=== PATIENT | female | born 1955 | race Caucasian/White ===

== ENCOUNTER 2022-04-26 09:47 | Observation (INO) | payer OTHER ==
--- OUTSIDE RECORDS SUMMARY | 2022-04-26 09:49 | XMS REPORT | Continuity of Care Document ---
:1955 Author Organization [facility] t Address [address] [place] [address] [address] [place] [address] Care Team Providers Name Role Phone PCP, PATIENT DOES NOT HAVE A Primary Care Physician LUX Navarro Attending Clinician Unavailable MARILYN LOPEZ Attending Clinician Unavailable Marilyn Murillo Attending Clinician Payers Payer Name Policy Type Policy Number Effective Date Expiration Date steven MEDICARE PART A [id number] 2019 \T\ B 00:00:00 Problems Condition Condition Condition Status Onset Resolution Last Treating Co mments Source Name Details Category Date Date Treatment Clinician Date No known No known Disease Unive rs active active ity of problems problems [facility] Allergies, Adverse Reactions, Alerts Allergy Allergy Status Severity Reaction(s) Onset Inactive Treating Comm ents Source Name Type Date Date Clinician NO KNOWN Drug Active Univers ALLERGIE Class ity of [facility] Social History Social Habit Start Date Stop Date Quantity Comments Source Exposure to 2021-09-20 2021-09-30 Not sure [facility] SARS-CoV-2 (event) 00:00:00 18:06:00 Medica l Branch Sex [birth year] [facility] 00:00:00 00:00:00 Medical [place] Smoking Status Start Date Stop Date Source Never smoker [facility] Medications Ordered Filled Start Stop Current Ordering Indication Dosage Frequency Signature Comments Components Source Medication Medication Date Date Medication? Clinician (SIG) Name Name HYDROcodone 2016-03 Yes 1{tbl} Take 1 Un stephen -acetaminop 1-06 tablet by ity of hen (NORCO) 00:00: mouth [place] 5-325 mg 00 every 6 Medical tablet (six) Branch hours as needed for Pain (scale 7-10). HYDROcodone 2017- Yes 1{tbl} Take 1 Un stephen -acetaminop 1-06 tablet by ity of hen (NORCO) 00:00: mouth [place] 5-325 mg 00 every 6 Medical tablet (six) Branch hours as needed for Pain (scale 7-10). gabapentin 2016-0 Yes 600mg Take 600 Un stephen (NEURONTIN) 7-30 mg by ity of 600 mg 14:24: mouth 3 [place] tablet 07 (three) Medical times Branch daily. traZODONE 2016-0 Yes 100mg Take 100 Uni vers (DESYREL) 7-30 mg by ity of 100 mg 14:24: mouth at [place] tablet 07 bedtime. Medical Branch metoprolol 2015-0 Yes 25mg Take 25 mg U nivers succinate 7-30 by mouth ity of XL (TOPROL 14:24: daily. [place] XL) 25 mg 07 Medical 24 hr Branch tablet doxycycline 2016-0 Yes 100mg Take 100 U nivers (MONODOX) 7-30 mg by ity of 100 mg 14:24: mouth 2 [place] capsule 07 (two) Medical times Branch daily. paroxetine 2016-0 Yes 40mg Take 40 mg U nivers (PAXIL) 40 7-30 by mouth ity o f mg tablet 14:24: daily. Medical Branch insulin 2016-0 Yes inject Univers 70/30 7-30 under the ity of (NOVOLIN 14:24: skin 2 [place] 70/30) 100 07 (two) Medical unit/mL times Branch (70-30) daily injection before breakfast and dinner. gabapentin 2016-0 Yes 600mg Take 600 Un stephen (NEURONTIN) 7-30 mg by ity of 600 mg 14:24: mouth 3 [place] tablet 07 (three) Medical times Branch daily. traZODONE 2016-0 Yes 100mg Take 100 Uni vers (DESYREL) 7-30 mg by ity of 100 mg 14:24: mouth at [place] tablet 07 bedtime. Medical Branch metoprolol 2016-0 Yes 25mg Take 25 mg U nivers succinate 7-30 by mouth ity of XL (TOPROL 14:24: daily. [place] XL) 25 mg 07 Medical 24 hr Branch tablet doxycycline 2016-0 Yes 100mg Take 100 U nivers (MONODOX) 7-30 mg by ity of 100 mg 14:24: mouth 2 [place] capsule 07 (two) Medical times Branch daily. paroxetine Yes 40mg Take 40 mg U nivers (PAXIL) 40 7-30 by mouth ity o f mg tablet 14:24: daily. [address] Branch insulin Yes inject Univers 70/30 7-30 under the ity of (NOVOLIN 14:24: skin 2 [place] 70/30) 100 07 (two) Medical unit/mL times Branch (70-30) daily injection before breakfast and dinner. losartan-hy Yes 1{tbl} Take 1 Un stephen drochloroth 7-30 tablet by ity of iazide 14:24: mouth [place] (HYZAAR) 06 daily. Medical 100-12.5 mg Branch per tablet clopidogrel Yes 75mg Take 75 mg Univers (PLAVIX) 75 7-30 by mouth ity of mg tablet 14:24: daily. [address] Branch losartan-hy Yes 1{tbl} Take 1 Un stephen drochloroth 7-30 tablet by ity of iazide 14:24: mouth [place] (HYZAAR) 06 daily. Medical 100-12.5 mg Branch per tablet clopidogrel Yes 75mg Take 75 mg Univers (PLAVIX) 75 7-30 by mouth ity of mg tablet 14:24: daily. [address] Branch ranitidine Yes 150mg Take 1 Univ ers (ZANTAC) 7-30 tablet by ity of 150 mg 00:00: mouth 2 [place] tablet 00 (two) Medical times Branch daily. ranitidine Yes 150mg Take 1 Univ ers (ZANTAC) 7-30 tablet by ity of 150 mg 00:00: mouth 2 [place] tablet 00 (two) Medical times Branch daily. Vital Signs Vital Name Observation Time Observation Value Comments Source Systolic blood 2021-09-30 23:06:00 150 mm[Hg] Univer sity of pressure [facility] Diastolic blood 2021-09-30 23:06:00 59 mm[Hg] [facility] Heart rate 2021-09-30 23:06:00 68 /min Universi ty of [facility] Respiratory rate 2021-09-30 23:06:00 18 /min [facility] Body height 2021-09-30 23:06:[facility] Body weight 2021-09-30 23:06:00 [facility] BMI 2021-09-30 23:06:00 37.79 kg/m2 [facility] Oxygen saturation in 2021-09-30 23:06:00 96 /min [facility] Arterial blood by [facility] Pulse oximetry [place] Procedures Procedure Date / Time Performed Performing Clinician [place] e XR FOOT 3+ VW RIGHT 2021-09-30 23:27:38 Marilyn Lopez [facility] Encounters Start End Encounter Admission Attending Care Care Encounter Source Date/Time Date/Time Type Type Clinicians Facility Department ID 2021-10-07 2021-10-07 [facility] [id number] Univers 11:15:00 11:15:00 LUX navarro [facility] 2021-10-07 2021-10-07 [facility] [id number] Univers 10:30:00 [facility]30[facility] 2021-09-30 [facility] [id number] Univers 18:16:43 23:59:00 MARILYN navarro o f [facility] 2021-09-30 2021-09-30 [facility] [id number] Univers 18:16:43 23:59:00 Encounter [facility] [id number] ity of [place] [id number] Carlos as MELCHOR?BLEA [id number] Id saefl ALVERTO [address] [place] MEDICAL OFFICE [facility]ILDING 2021-09-30 2021-09-30 Urgent [facility] [id number] Univers 18:00:00 18:34:09 Care [facility] [id number] i ty of [place] [id number] Carlos as MELCHOR?BLEA [id number] Id marely [address] MEDICAL OFFICE BUILDING 2021-09-30 2021-09-30 Outpatient R JOHN [facility] [id number] Univers 18:00:00 18:00:00 MARILYN kumari [facility] 2021-09-30 2021-09-30 Outpatient R [facility] [id number] Univers 17:00:00 17:00:00 [facility] 2020-03-05 2020-03-05 Outpatient R [facility] [id number] Univers 14:20:00 14:20:00 [facility] Results This patient has no known results.
[2022-04-26 10:18] LABS: Absolute Lymphocytes (CBC) 2.4 K/uL (0.7-4.9); Hematocrit 40.4 % (36.0-45.0); Lymphocytes % 22.8 % (15.3-44.8); MCV 92.3 fL (80-100); MPV 8.6 fL (7.6-11.3); RBC Red Blood Cell Count 4.37 M/uL (3.86-4.86)
[2022-04-26] MEDS ORDERED: INSULIN -REGULAR HUMAN 50 UNIT/0.5 ML ML ONE ×2 (10:29→23:49)
--- NOTE | 2022-04-26 10:30 | RAD REPORT ---
EXAM DESCRIPTION: CT - Ct Stroke Brain Wo Cont - 04/26/2022 10:06 am CLINICAL HISTORY: STROKE ALERT COMPARISON: No comparisons TECHNIQUE: Axial 5 millimeter thick images of the head were obtained without IV contrast. All CT scans are performed using dose optimization technique as appropriate and may include automated exposure control or mA/KV adjustment according to patient size. FINDINGS: No intracranial hemorrhage is present. No acute cortical based infarction identified. Ther e is no cortical edema or sulcal effacement. Mild atrophy changes are present with ventricles in prop ortion to volume loss. No extra-axial fluid collections. Childers matter-white matter differentiation is preserved.A 10 millimeter sized area of decreased attenuation is present in the deep periventricular left frontal lobe white matter extending in the left basal ganglia along the anterior limb internal capsule and medial margin of the lentiform nucleus. This is relatively low in density and is probably an old infarct. No globe or orbital content abnormality. Paranasal sinuses are clear. Right-side mastoid air cells are normal. There is complete opacification of the left side mastoid air cells. The left middle ear does appear to be normally aerated. No erosi ve or destructive changes in the mastoid air cells identifiable. Benign calcifications are present along the falx. Arterial calcifications are present. Findings telephoned to Dr Argueta 10:08 a.m.. IMPRESSION: No intracranial hemorrhage is present. Small focus of decreased attenuation in the left basal ganglia and deep periventricular left frontal lobe white matter is favored to be an old ischemic insult. Continued concerns for acute CVA can be addressed with MR imaging.
[2022-04-26] MEDS ORDERED: TENECTEPLASE 50 MG/10 ML VIAL IV ONE (10:31)
[2022-04-26 10:51] LABS: Protime INR 1.05
--- NOTE | 2022-04-26 10:57 | RAD REPORT ---
EXAM DESCRIPTION: RAD - Chest Single View - 04/26/2022 10:26 am CLINICAL HISTORY: Slurred speech, Stroke protocol chest film COMPARISON: Single-view chest 12/27/2012 TECHNIQUE: AP portable chest image was obtained 04/26/2022 10:26 am . FINDINGS: Mildly prominent interstitial pattern is seen believed be baseline. No peripheral mass or consolidation. Failure and volume overload are not suspected. Heart and vasculature are normal. No measurable pleural effusion and no pneumothorax. No acute bony abnormality seen. No acute aortic findings suspected. IMPRESSION: No peripheral mass, consolidation or failure findings. Mildly prominent interstitial pattern is believed be baseline for the patient.
[2022-04-26 11:09] LABS: Albumin 3.2 g/dL (3.4-5.0); Bilirubin Direct 0.1 mg/dL (0-0.2); Bilirubin Total 0.4 mg/dL (0.2-1.0); Potassium 4.3 mmol/L (3.5-5.1); Protein, Total 7.2 g/dL (6.4-8.2); Troponin High Sensitivity 18.8 pg/mL (<58.9)
--- NOTE | 2022-04-26 11:43 | ER ---
Nurse's Notes [facility] Name: Kala Pedro Age: 67 yrs Sex: Female : 1955 Arrival Date: 04/26/2022 Time: 09:55 Bed 7 Private MD: Diagnosis: Slurred speech;Altered mental status, unspecified;Diabetes mellitus due to underlying condition with hyperglycemia;Type 2 diabetes mellitus with hyperglycemia Presentation: 04/26 09:56 Chief complaint: EMS states: Pt was at surgical center in waiting area while spouse was ph having surgery, began having slurred speech, BGL was 481, pt hx of IDDM, states that she did not take her insulin this morning. Pt also reports headache that has improved, moves all extremities w/ no weakness noted, pt oriented x 4, slow to respond to questioning, VSS. Coronavirus screen: Vaccine status: Patient reports receiving the 2nd dose of the covid vaccine. Ebola Screen: No symptoms or risks identified at this time. Initial Sepsis Screen: Does the patient meet any 2 criteria? No. Patient's initial sepsis screen is negative. Does the patient have a suspected source of infection? No. Patient's initial sepsis screen is negative. Risk Assessment: Do you want to hurt yourself or someone else? Patient reports no desire to harm self or others. Onset of symptoms was April 26, 2022. 09:56 Method Of Arrival: EMS: [facility] 09:56 Acuity: LEXUS 2 ph 12:12 No acute neurological deficit is noted. The patients blood glucose was checked prior to ph arriving to the hospital and was found to be hyperglycemic. Triage Assessment: 12:20 The onset of the patients symptoms was April 26, 2022 at 08:00. Stroke Activation: Physician: Stroke Attending; Name: ; Notified At: ; Arrived At: Physician: Chief Stroke Resident; Name: ; Notified At: ; Arrived At: Physician: Stroke Resident; Name: ; Notified At: ; Arrived At: Physician: ED Attending; Name: Kendall; Notified At: 10:00; Arrived At: 10:00 Physician: ED Resident; Name: ; Notified At: ; Arrived At: Historical: - Allergies: 10:02 zolpidem tartrate; ph 10:02 Niacin; ph - PMHx: 10:02 Diabetes mellitus; Myocardial infarction; ph - Immunization history:: Adult Immunizations unknown. - Social history:: Smoking status: unknown. Screenin:01 [facility] ED Fall Risk Assessment (Adult) History of falling in the last 3 months, ph including since admission No falls in past 3 months (0 pts) Confusion or Disorientation Yes (5 pts) Intoxicated or Sedated No (0 pts) Impaired Gait No (0 pts) Mobility Assist Device Used No (0 pt) Altered Elimination No (0 pt) Score/Fall Risk Level 3 or more points = High Risk Oriented to surroundings, Maintained a safe environment, Hourly rounding (assess needs \T\ fall precautionary measures) done. Abuse screen: Denies threats or abuse. Denies injuries from another. Nutritional screening: No deficits noted. Tuberculosis screening: No symptoms or risk factors identified. Assessment: 10:00 Reassessment: code stroke called overhead, Dr Argueta at bedside. ph 10:00 General: Appears in no apparent distress. well groomed, Behavior is cooperative, ph drowsy, Denies fever, feeling ill. Pain: Denies pain. Neuro: Level of Consciousness is awake, obeys commands, lethargic, Oriented to person, place, time, situation, [employer] are equal bilaterally Moves all extremities. Speech is slurred, Facial symmetry appears normal, Facial symmetry: tongue is midline, Pupils are PERRLA, Intact. Cardiovascular: Capillary refill < 3 seconds in bilateral fingers Patient's skin is warm and dry. Respiratory: Reports cough that is Airway is patent Respiratory effort is even, unlabored, Respiratory pattern is regular, symmetrical, Denies shortness of breath. GI: No signs and/or symptoms were reported involving the gastrointestinal system. Derm: Skin is healthy with good turgor, Skin is pink, warm \T\ dry. Musculoskeletal: Circulation, motion, and sensation intact. Range of motion: intact in all extremities. 10:02 Reassessment: Pt taken to CT via stretcher, accompanied by JANNY Kim. ph 10:02 VAN Scoring: Arm Drift: Patients demonstrates NO arm weakness. Patient is VAN Negative. ph 10:30 TNKase (Tenecteplase) Screening: Indications: Definite evidence of stroke, ischemic, ph embolic, or hypertensive: Yes. Treatment will start within 4.5 hours onset of symptoms: Yes. No evidence of intracranial hemorrhage or CT of head and no evidence of peripheral hemorrhage or recent CVA: Yes. Consent for thrombolytic therapy: No. 10:44 Reassessment: Patient appears in no apparent distress at this time. Patient and/or ph family updated on plan of care and expected duration. Pain level reassessed. Pt drowsy, awakens to verbal stimuli, speech remains slurred at this time, pt states that she has never had these symptoms before when her BGL has been high, pt states that she does take Plavix d/t hx of [place], ERP notified of blood thinner use. 11:08 Reassessment: Pt taken for MRI via stretcher. ph 12:11 Reassessment: Pt remains in MRI. ph 12:20 Reassessment: Pt returned from MRI, speech noted to be much clearer w/ no slurring or ph delay in response noted, pt also more awake and alert, reports that headache has improved as well. Daughter at bedside states that she believes pt's symptoms began at approx 0800 this morning. 13:00 Patient has been NPO before screening. The patient is alert, and able to follow ph commands. The patient does not exhibit slurred or garbled speech. The patient is not exhibiting difficulty speaking. The patient does not exhibit difficulty understanding words. The patient is able to swallow own secretions with no drooling or need for suction. Patient tolerated one teaspoon of water. No drooling, immediate coughing, gurgling, or clearing of the throat was noted. The patient tolerated 90mL of water. No drooling, immediate coughing, gurgling, or clearing of the throat was noted. The patient passed the bedside swallow screening. Oral medications may be given as ordered. Contact Physician for further diet orders. Provider notified of bedside swallow screening results: Michael Argueta MD. 14:00 Reassessment: Patient appears in no apparent distress at this time. Patient and/or ph family updated on plan of care and expected duration. Pain level reassessed. Patient is alert, oriented x 3, equal unlabored respirations, skin warm/dry/pink. 14:51 Reassessment: Patient appears in no apparent distress at this time. Patient and/or ph family updated on plan of care and expected duration. Pain level reassessed. Patient is alert, oriented x 3, equal unlabored respirations, skin warm/dry/pink. 20:43 VAN Scoring: Arm Drift: Patients demonstrates NO arm weakness. Patient is VAN Negative. lg3 Patient has been NPO before screening. The patient is alert, and able to follow commands. The patient does not exhibit slurred or garbled speech. The patient is not exhibiting difficulty speaking. The patient does not exhibit difficulty understanding words. The patient is able to swallow own secretions with no drooling or need for suction. Patient tolerated one teaspoon of water. No drooling, immediate coughing, gurgling, or clearing of the throat was noted. The patient tolerated 90mL of water. No drooling, immediate coughing, gurgling, or clearing of the throat was noted. The patient passed the bedside swallow screening. Oral medications may be given as ordered. Contact Physician for further diet orders. General: Appears in no apparent distress. comfortable, Behavior is calm, cooperative, drowsy. Pain: Denies pain. Neuro: No deficits noted. Level of Consciousness is awake, alert, obeys commands, Oriented to person, place, time, situation, [employer] are equal bilaterally Moves all extremities. Speech is normal, Facial symmetry appears normal, Pupils are PERRLA, Intact. Cardiovascular: No deficits noted. Denies chest pain, shortness of breath, Capillary refill < 3 seconds Clubbing of nail beds is absent JVD is absent Patient's skin is warm and dry. Respiratory: No deficits noted. Airway is patent Trachea midline Respiratory effort is even, unlabored, Respiratory pattern is regular, symmetrical, Denies shortness of breath. GI: No deficits noted. No signs and/or symptoms were reported involving the gastrointestinal system. Abdomen is round non-distended. : No deficits noted. No signs and/or symptoms were reported regarding the genitourinary system. EENT: No deficits noted. No signs and/or symptoms were reported regarding the EENT system. Derm: No deficits noted. No signs and/or symptoms reported regarding the dermatologic system. Skin is intact, is healthy with good turgor, Skin is dry, Skin is normal. Musculoskeletal: No deficits noted. No signs and/or symptoms reported regarding the musculoskeletal system. Circulation, motion, and sensation intact. Range of motion: intact in all extremities. Vital Signs: 09:56 BP 109 / 51; Pulse 66; Resp 18; Temp 97.8; Pulse Ox 94% on R/A; Weight 95.25 kg; Height ph 5 ft. 1 in. (154.94 cm); 10:22 Weight 87 kg; ph 10:46 BP 94 / 56; Pulse 61; Resp 18; Pulse Ox 95% on R/A; ph 12:10 BP 108 / 54; Pulse 56; Resp 18; Pulse Ox 100% on R/A; ph 13:00 BP 101 / 56; Pulse 60; Resp 18; Pulse Ox 98% on R/A; ph 14:00 BP 96 / 70; Pulse 61; Resp 16; Pulse Ox 98% on R/A; ph 14:53 BP 96 / 61; Pulse 63; Resp 18; Pulse Ox 98% on R/A; ph 15:55 BP 91 / 60; Pulse 89; Resp 16; Pulse Ox 98% on R/A; ph 16:56 BP 95 / 48; Pulse 69; Resp 18; Pulse Ox 97% on R/A; ph 20:43 BP 121 / 54; Pulse 79; Resp 17; Pulse Ox 97% on R/A; lg3 10:22 Body Mass Index 36.24 (87.00 kg, 154.94 cm) ph Xavier Coma Score: 10:46 Eye Response: to voice(3). Verbal Response: oriented(5). Motor Response: obeys ph commands(6). Total: 14. 12:10 Eye Response: spontaneous(4). Verbal Response: oriented(5). Motor Response: obeys ph commands(6). Total: 15. NIH Stroke Scale Scores: 10:02 NIHSS Score: 2 ph 11:42 NIHSS Score: 2 kdr 20:43 NIHSS Score: 0 lg3 ED Course: 09:55 Patient arrived in ED. ph 09:58 Damon Gutierrez NP is PHCP. pm1 09:58 Michael Argueta MD is Attending Physician. pm1 10:00 Triage completed. ph 10:01 Patient has correct armband on for positive identification. Placed in gown. Bed in low ph position. Call light in reach. Side rails up X2. Client placed on continuous cardiac and pulse oximetry monitoring. NIBP monitoring applied. Door closed. Noise minimized. Warm blanket given. 10:02 Arm band placed on Patient placed in an exam room, on a stretcher, on phototypesetting equipment monitor, ph on pulse oximetry. 10:06 CT Stroke Brain w/o Contrast In Process Unspecified. EDMS 10:10 Inserted saline lock: 20 gauge in right antecubital area, using aseptic technique. ss Blood collected. 10:20 She Tatum, RN is Primary Nurse. ph 10:28 Stroke CXR 1 View In Process Unspecified. EDMS 11:34 Trenton Kothari MD is Hospitalizing Provider. kdr 12:12 MRA Head Wo Cont In Process Unspecified. EDMS 12:12 Brain W/Wo Cont In Process Unspecified. EDMS 12:12 MRA Neck W/Wo Cont In Process Unspecified. EDMS 13:38 No provider procedures requiring assistance completed. Patient admitted, IV remains in ph place. Administered Medications: 10:42 Drug: Insulin Regular Human 10 units {Co-Signature: david (Kenneth Young RN).} Route: IVP; ph Site: right antecubital; 13:51 Follow up: Response: No adverse reaction; Blood sugar is lowered ph 10:50 Drug: TNK FOR STROKE - Tenecteplase 0.25 mg/kg {Co-Signature: [email or web address] (Kenneth Young RN).} Route: IV; Rate: per protocol; Site: right antecubital; 10:55 Follow up: Response: No adverse reaction; IV Status: Completed infusion ph 13:10 Drug: foLIC Acid 1 mg Route: PO; ph 13:51 Follow up: Response: No adverse reaction ph 13:10 Drug: Aspirin 81 mg Route: PO; ph 13:51 Follow up: Response: No adverse reaction ph 17:00 Drug: NS 0.9% 500 ml Route: IV; Rate: bolus; Site: right antecubital; ph Medication: 11:12 VIS not applicable for this client. ph Point of Care Testing: Blood Glucose: 10:10 Blood Glucose: 440 mg/dL; ph Ranges: Outcome: 11:42 Decision to Hospitalize by Provider. kdr 04/27 07:00 Admitted to ER Hold. Please see [facility] for further documentation. kc6 Condition: stable Instructed on the need for admit. 14:13 Patient left the ED. kc6 NIH Stroke Scale - NIH Stroke Score Date: 04/26/2022 Time: 10:02 Total Score = 2 1a. Level of Consciousness (LOC) - 1(Not Alert) 1b. Level of Consciousness (LOC) (Month \T\ Age) - 0(Both) 1c. LOC Commands (Open \T\ Closes Eyes/Small Brake Form Operator) - 0(Both) 2. Best Gaze (Lateral Gaze Paresis) - 0(Normal) 3. Visual Field Loss - 0(No visual loss) 4. Facial Palsy - 0(Normal) 5a. Left Arm: Motor (10-second hold) - 0(No drift) 5b. Right Arm: Motor (10-second hold) - 0(No drift) 6a. Left Leg: Motor (5-second hold - always test supine) - 0(No drift) 6b. Right Leg: Motor (5-second hold - always test supine) - 0(No drift) 7. Limb Ataxia (finger/nose \T\ heel/truong - test with eyes open) - 0(Absent) 8. Sensory Loss (pinprick arms/legs/face) - 0(Normal) 9. Best Language: Aphasia (description/naming/reading) - 0(No aphasia) 10. Dysarthria (speech clarity - read or repeat words) - 1(Mild to Moderate) 11. Extinction and Inattention (visual/tactile/auditory/spatial/personal) - 0(No abnormality) Initials: NIH Stroke Scale - NIH Stroke Score Date: 04/26/2022 Time: 11:42 Total Score = 2 1a. Level of Consciousness (LOC) - 1(Not Alert) 1b. Level of Consciousness (LOC) (Month \T\ Age) - 0(Both) 1c. LOC Commands (Open \T\ Closes Eyes/Small Brake Form Operator) - 0(Both) 2. Best Gaze (Lateral Gaze Paresis) - 0(Normal) 3. Visual Field Loss - 0(No visual loss) 4. Facial Palsy - 0(Normal) 5a. Left Arm: Motor (10-second hold) - 0(No drift) 5b. Right Arm: Motor (10-second hold) - 0(No drift) 6a. Left Leg: Motor (5-second hold - always test supine) - 0(No drift) 6b. Right Leg: Motor (5-second hold - always test supine) - 0(No drift) 7. Limb Ataxia (finger/nose \T\ heel/truong - test with eyes open) - 0(Absent) 8. Sensory Loss (pinprick arms/legs/face) - 0(Normal) 9. Best Language: Aphasia (description/naming/reading) - 0(No aphasia) 10. Dysarthria (speech clarity - read or repeat words) - 1(Mild to Moderate) 11. Extinction and Inattention (visual/tactile/auditory/spatial/personal) - 0(No abnormality) Initials: [facility] NIH Stroke Scale - NIH Stroke Score Date: 04/26/2022 Time: 20:43 Total Score = 0 1a. Level of Consciousness (LOC) - 0(Alert) 1b. Level of Consciousness (LOC) (Month \T\ Age) - 0(Both) 1c. LOC Commands (Open \T\ Closes Eyes/Small Brake Form Operator) - 0(Both) 2. Best Gaze (Lateral Gaze Paresis) - 0(Normal) 3. Visual Field Loss - 0(No visual loss) 4. Facial Palsy - 0(Normal) 5a. Left Arm: Motor (10-second hold) - 0(No drift) 5b. Right Arm: Motor (10-second hold) - 0(No drift) 6a. Left Leg: Motor (5-second hold - always test supine) - 0(No drift) 6b. Right Leg: Motor (5-second hold - always test supine) - 0(No drift) 7. Limb Ataxia (finger/nose \T\ heel/truong - test with eyes open) - 0(Absent) 8. Sensory Loss (pinprick arms/legs/face) - 0(Normal) 9. Best Language: Aphasia (description/naming/reading) - 0(No aphasia) 10. Dysarthria (speech clarity - read or repeat words) - 0(Normal) 11. Extinction and Inattention (visual/tactile/auditory/spatial/personal) - 0(No abnormality) Initials: lg3 Signatures: Dispatcher [employer] EDMS Michael Argueta MD MD [facility] Judy Dave RN RN ss She Tatum RN RN ph Damon Gutierrez, [employer] pm1 Triny Roberts RN RN lg3 Beverly Jama RN RN kc6 Kenneth Young RN ll1 Corrections: (The following items were deleted from the chart) 04/26 10:01 10:00 Reassessment: code stroke called overhead ph ph 13:33 13:05 Reassessment: Pt returned from MRI, speech noted to be much clearer w/ no ph slurring or delay in response noted, pt also more awake and alert, reports that headache has improved as well. Daughter at bedside states that she believes pt's symptoms began at approx 0800 this morning. ph 13:39 11:10 Blood Glucose: Blood Glucose Vgvonyg=370 mg/dL. ph ph
--- NOTE | 2022-04-26 11:43 | EDPHYS ---
Physician Documentation [facility] Name: Kala Pedro Age: 67 yrs Sex: Female : 1955 Arrival Date: 04/26/2022 Time: 09:55 Bed 7 Private MD: ED Physician Michael Argueta HPI: 04/26 11:45 This 67 yrs old Female presents to ER via EMS with complaints of High Blood Sugar. kdr 11:46 Patient was sitting in the waiting room at a local surgical center while her kdr was having a procedure done. During that time she began to have slurred speech and became less responsive. Patient was evaluated by EMS and brought to the ED. She has not had anything like this before. On arrival in the ED she was arousable but mildly altered and her speech seemed altered as well. Vital signs otherwise appear to be stable the patient was sent directly to CT after brief interview and evaluation.. Onset: The symptoms/episode began/occurred acutely, suddenly, just prior to arrival. Severity of symptoms: At their worst the symptoms were moderate severe incapacitating in the emergency department the symptoms have improved mildly. The patient has not experienced similar symptoms in the past. The patient has not recently seen a physician. Patient has a history of diabetes which is normally better controlled than today. EMS had noted a glucose of around 450. Patient states that her normal glucose is in the range of 150-250. Historical: - Allergies: 10:02 zolpidem tartrate; ph 10:02 Niacin; ph - PMHx: 10:02 Diabetes mellitus; Myocardial infarction; ph - Immunization history:: Adult Immunizations unknown. - Social history:: Smoking status: unknown. ROS: 11:46 Constitutional: Negative for fever, chills, and weight loss, Eyes: Negative for injury, kdr pain, redness, and discharge, ENT: Negative for injury, pain, and discharge, Neck: Negative for injury, pain, and swelling, Cardiovascular: Negative for chest pain, palpitations, and edema, Respiratory: Negative for shortness of breath, cough, wheezing, and pleuritic chest pain, Abdomen/GI: Negative for abdominal pain, nausea, vomiting, diarrhea, and constipation, Back: Negative for injury and pain, : Negative for injury, bleeding, discharge, and swelling, MS/Extremity: Negative for injury and deformity, Skin: Negative for injury, rash, and discoloration, Psych: Negative for depression, anxiety, suicide ideation, homicidal ideation, and hallucinations, Allergy/Immunology: Negative for hives, rash, and allergies, Hematologic/Lymphatic: Negative for swollen nodes, abnormal bleeding, and unusual bruising. 11:46 Neuro: Positive for altered mental status, headache, speech changes, Patient had a brief left-sided headache which is essentially resolved on arrival in the ED., Negative for hearing loss, tinnitus, tremor, visual changes. 11:46 Endocrine: Positive for No specific complaint. Exam: 11:42 ECG was reviewed by the Attending Physician. kdr 11:46 Constitutional: This is a well developed, well nourished patient who is somnolent but kdr easily arousable and otherwise in no acute distress. Head/Face: Normocephalic, atraumatic. Eyes: Pupils equal round and reactive to light, extra-ocular motions intact. Lids and lashes normal. Conjunctiva and sclera are non-icteric and not injected. Cornea within normal limits. Periorbital areas with no swelling, redness, or edema. Neck: Trachea midline, no thyromegaly or masses palpated, and no cervical lymphadenopathy. Supple, full range of motion without nuchal rigidity, or vertebral point tenderness. No Meningismus. Chest/axilla: Normal chest wall appearance and motion. Nontender with no deformity. No lesions are appreciated. Cardiovascular: Regular rate and rhythm with a normal S1 and S2. No gallops, murmurs, or rubs. Normal PMI, no JVD. No pulse deficits. Respiratory: Lungs have equal breath sounds bilaterally, clear to auscultation and percussion. No rales, rhonchi or wheezes noted. No increased work of breathing, no retractions or nasal flaring. Abdomen/GI: Soft, non-tender, with normal bowel sounds. No distension or tympany. No guarding or rebound. No evidence of tenderness throughout. Back: No spinal tenderness. No costovertebral tenderness. Full range of motion. Skin: Warm, dry with normal turgor. Normal color with no rashes, no lesions, and no evidence of cellulitis. MS/ Extremity: Pulses equal, no cyanosis. Neurovascular intact. Full, normal range of motion. Psych: Awake, alert, with orientation to person, place and time. Behavior, mood, and affect are within normal limits. 11:46 Neuro: Orientation: appropriate for stated age, Mentation: slow to respond, somnolent, Cranial nerves: no acute changes, Motor: moves all fours. Vital Signs: 09:56 BP 109 / 51; Pulse 66; Resp 18; Temp 97.8; Pulse Ox 94% on R/A; Weight 95.25 kg; Height ph 5 ft. 1 in. (154.94 cm); 10:22 Weight 87 kg; ph 10:46 BP 94 / 56; Pulse 61; Resp 18; Pulse Ox 95% on R/A; ph 12:10 BP 108 / 54; Pulse 56; Resp 18; Pulse Ox 100% on R/A; ph 13:00 BP 101 / 56; Pulse 60; Resp 18; Pulse Ox 98% on R/A; ph 14:00 BP 96 / 70; Pulse 61; Resp 16; Pulse Ox 98% on R/A; ph 14:53 BP 96 / 61; Pulse 63; Resp 18; Pulse Ox 98% on R/A; ph 15:55 BP 91 / 60; Pulse 89; Resp 16; Pulse Ox 98% on R/A; ph 16:56 BP 95 / 48; Pulse 69; Resp 18; Pulse Ox 97% on R/A; ph 20:43 BP 121 / 54; Pulse 79; Resp 17; Pulse Ox 97% on R/A; lg3 10:22 Body Mass Index 36.24 (87.00 kg, 154.94 cm) ph NIH Stroke Scale Scores: 10:02 NIHSS Score: 2 ph 11:42 NIHSS Score: 2 kdr 20:43 NIHSS Score: 0 lg3 Xavier Coma Score: 10:46 Eye Response: to voice(3). Verbal Response: oriented(5). Motor Response: obeys ph commands(6). Total: 14. 12:10 Eye Response: spontaneous(4). Verbal Response: oriented(5). Motor Response: obeys ph commands(6). Total: 15. MDM: 09:58 Patient medically screened. pm1 11:42 Data reviewed: vital signs, nurses notes, lab test result(s), radiologic studies. kdr Consideration of Admission/Observation Patient was admitted/placed on observation. Escalation of care including admission/observation considered. Management of patient was discussed with the following: Flower Shop Manager: Dr. Da Silva. Primary Care Provider: Dr. Kothari. I considered the following discharge prescriptions or medication management in the emergency department Medications were administered in the Emergency Department. See MAR. Discussion of test interpretation with radiology: I had a discussion with radiology regarding a test interpretation. CT results. 04/26 10:03 Order name: Basic Metabolic Panel; Complete Time: 12:39 kdr 04/26 10:03 Order name: CBC with Diff; Complete Time: 10:42 kdr 04/26 10:03 Order name: Hepatic Function; Complete Time: 12:39 kdr 04/26 10:03 Order name: High Sensitivity Troponin; Complete Time: 12:39 kdr 04/26 10:03 Order name: Protime (+inr); Complete Time: 10:55 kdr 04/26 10:03 Order name: Ptt, Activated; Complete Time: 10:55 kdr 04/26 10:26 Order name: Glucose, Ancillary Testing; Complete Time: 10:42 EDMS 04/26 11:49 Order name: SARS-COV-2 Antigen Rapid; Complete Time: 15:46 bd 04/26 13:23 Order name: Glucose, Ancillary Testing; Complete Time: 15:46 EDMS 04/26 14:03 Order name: Basic Metabolic Panel EDMS 04/26 14:03 Order name: Basic Metabolic Panel EDMS 04/26 14:03 Order name: CBC with Automated Diff EDMS 04/26 14:03 Order name: CBC with Automated Diff EDMS 04/26 23:06 Order name: Glucose, Ancillary Testing EDMS 04/26 10:03 Order name: CT Stroke Brain w/o Contrast; Complete Time: 10:42 kdr 04/26 10:03 Order name: Stroke CXR 1 View; Complete Time: 11:11 kdr 04/26 11:26 Order name: MRA Head Wo Cont; Complete Time: 12:39 EDMS 04/26 11:30 Order name: Brain W/Wo Cont; Complete Time: 15:46 EDMS 04/26 11:30 Order name: MRA Neck W/Wo Cont; Complete Time: 15:46 EDMS 04/26 15:54 Order name: CT Neck Angio kdr 04/26 19:04 Order name: CT EDMS 04/27 07:16 Order name: Lipid Profile EDMS 04/27 07:16 Order name: LDL, Direct EDMS 04/27 07:35 Order name: Hemoglobin A1c EDMS 04/27 07:51 Order name: Glucose, Ancillary Testing EDMS 04/27 11:46 Order name: Glucose, Ancillary Testing EDPR 04/26 10:03 Order name: EKG; Complete Time: 10:04 kdr 04/26 10:03 Order name: Accucheck; Complete Time: 10:23 kdr 04/26 10:03 Order name: Cardiac monitoring; Complete Time: 10:15 kdr 04/26 10:03 Order name: EKG - Nurse/Tech; Complete Time: 10: kdr 04/26 10:03 Order name: IV Saline Lock; Complete Time: 10:15 kdr 04/26 10:03 Order name: Labs collected and sent; Complete Time: 10: kdr 04/26 10:03 Order name: NPO; Complete Time: 10: kdr 04/26 10:03 Order name: O2 Per Protocol; Complete Time: 10: kdr 04/26 10:03 Order name: O2 Sat Monitoring; Complete Time: 10: kdr 04/26 10:03 Order name: Stroke Swallow Screen; Complete Time: 14:51 kdr 04/26 10:20 Order name: Labs - recollect needed: recollect green, blue and lavender top; Complete bd Time: 10:43 04/26 14:03 Order name: Regular EDMS EC:27 Rate is 63 beats/min. Rhythm is regular, Normal Sinus Rhythm with No ectopy. QRS [place] kdr is Normal. NM interval is normal. QRS interval is normal. Clinical impression: Normal ECG and NSR w/ Non-specific ST/T Changes. Administered Medications: 10:42 Drug: Insulin Regular Human 10 units {Co-Signature: david (Kenneth Young RN).} Route: IVP; ph Site: right antecubital; 13:51 Follow up: Response: No adverse reaction; Blood sugar is lowered ph 10:50 Drug: TNK FOR STROKE - Tenecteplase 0.25 mg/kg {Co-Signature: david (Kenneth Young RN).} Route: IV; Rate: per protocol; Site: right antecubital; 10:55 Follow up: Response: No adverse reaction; IV Status: Completed infusion ph 13:10 Drug: foLIC Acid 1 mg Route: PO; ph 13:51 Follow up: Response: No adverse reaction ph 13:10 Drug: Aspirin 81 mg Route: PO; ph 13:51 Follow up: Response: No adverse reaction ph 17:00 Drug: NS 0.9% 500 ml Route: IV; Rate: bolus; Site: right antecubital; ph Point of Care Testing: Blood Glucose: 10:10 Blood Glucose: 440 mg/dL; ph Ranges: Critical Glucose Levels:Adult <50 mg/dl or >400 mg/dl <40 mg/dl or >180 mg/dl Disposition Summary: 04/26/22 11:42 Hospitalization Ordered Hospitalization Status: Inpatient Admission kdr Provider: Trenton Kothari Condition: Fair kdr Problem: new kdr Symptoms: have improved kdr Bed/Room Type: Standard kdr Location: [facility] ER HOLD(04/26/22 16:56) [facility] Room Assignment: ERHOLD-(04/26/22 19:28) eb1 Diagnosis - Slurred speech kdr - Altered mental status, unspecified kdr - Diabetes mellitus due to underlying condition with hyperglycemia kdr - Type 2 diabetes mellitus with hyperglycemia kdr Forms: - Medication Reconciliation Form kdr - SBAR form kdr NIH Stroke Scale - NIH Stroke Score Date: 04/26/2022 Time: 10:02 Total Score = 2 1a. Level of Consciousness (LOC) - 1(Not Alert) 1b. Level of Consciousness (LOC) (Month \T\ Age) - 0(Both) 1c. LOC Commands (Open \T\ Closes Eyes/Band Log Mill And Carriage Operator) - 0(Both) 2. Best Gaze (Lateral Gaze Paresis) - 0(Normal) 3. Visual Field Loss - 0(No visual loss) 4. Facial Palsy - 0(Normal) 5a. Left Arm: Motor (10-second hold) - 0(No drift) 5b. Right Arm: Motor (10-second hold) - 0(No drift) 6a. Left Leg: Motor (5-second hold - always test supine) - 0(No drift) 6b. Right Leg: Motor (5-second hold - always test supine) - 0(No drift) 7. Limb Ataxia (finger/nose \T\ heel/truong - test with eyes open) - 0(Absent) 8. Sensory Loss (pinprick arms/legs/face) - 0(Normal) 9. Best Language: Aphasia (description/naming/reading) - 0(No aphasia) 10. Dysarthria (speech clarity - read or repeat words) - 1(Mild to Moderate) 11. Extinction and Inattention (visual/tactile/auditory/spatial/personal) - 0(No abnormality) Initials: NIH Stroke Scale - NIH Stroke Score Date: 04/26/2022 Time: 11:42 Total Score = 2 1a. Level of Consciousness (LOC) - 1(Not Alert) 1b. Level of Consciousness (LOC) (Month \T\ Age) - 0(Both) 1c. LOC Commands (Open \T\ Closes Eyes/Band [employer] Mill And Carriage Operator) - 0(Both) 2. Best Gaze (Lateral Gaze Paresis) - 0(Normal) 3. Visual Field Loss - 0(No visual loss) 4. Facial Palsy - 0(Normal) 5a. Left Arm: Motor (10-second hold) - 0(No drift) 5b. Right Arm: Motor (10-second hold) - 0(No drift) 6a. Left Leg: Motor (5-second hold - always test supine) - 0(No drift) 6b. Right Leg: Motor (5-second hold - always test supine) - 0(No drift) 7. Limb Ataxia (finger/nose \T\ heel/truong - test with eyes open) - 0(Absent) 8. Sensory Loss (pinprick arms/legs/face) - 0(Normal) 9. Best Language: Aphasia (description/naming/reading) - 0(No aphasia) 10. Dysarthria (speech clarity - read or repeat words) - 1(Mild to Moderate) 11. Extinction and Inattention (visual/tactile/auditory/spatial/personal) - 0(No abnormality) Initials: [facility] NIH Stroke Scale - NIH Stroke Score Date: 04/26/2022 Time: 20:43 Total Score = 0 1a. Level of Consciousness (LOC) - 0(Alert) 1b. Level of Consciousness (LOC) (Month \T\ Age) - 0(Both) 1c. LOC Commands (Open \T\ Closes Eyes/Band [employer] Mill And Carriage Operator) - 0(Both) 2. Best Gaze (Lateral Gaze Paresis) - 0(Normal) 3. Visual Field Loss - 0(No visual loss) 4. Facial Palsy - 0(Normal) 5a. Left Arm: Motor (10-second hold) - 0(No drift) 5b. Right Arm: Motor (10-second hold) - 0(No drift) 6a. Left Leg: Motor (5-second hold - always test supine) - 0(No drift) 6b. Right Leg: Motor (5-second hold - always test supine) - 0(No drift) 7. Limb Ataxia (finger/nose \T\ heel/truong - test with eyes open) - 0(Absent) 8. Sensory Loss (pinprick arms/legs/face) - 0(Normal) 9. Best Language: Aphasia (description/naming/reading) - 0(No aphasia) 10. Dysarthria (speech clarity - read or repeat words) - 0(Normal) 11. Extinction and Inattention (visual/tactile/auditory/spatial/personal) - 0(No abnormality) Initials: lg3 Signatures: Dispatcher [employer] EDMS Coleen Giraldo Kevin, MD MD kdr Mickail, Joel, PA PA jmm Hall, Patricia RN RN ph Damon Gutierrez, SPACECRAFT SYSTEMS ENGINEER SPACECRAFT SYSTEMS ENGINEER pm1 Bettie Myles RN RN eb1 Kenneth Young RN ll1 Corrections: (The following items were deleted from the chart) 11:26 10:32 MR STROKE PROTOCOL+MRI.RAD.BRZ ordered. EDMS EDMS 15:58 11:42 kdr bd 16:10 15:[address] [facility] 16:56 11:42 Telemetry/MedSurg (Inpatient) kdr [facility] 16:56 16:10 bd [facility] 19:28 16:56 [facility] eb1
--- NOTE | 2022-04-26 12:35 | RAD REPORT ---
EXAM DESCRIPTION: MRI - MRA Head Wo Cont - 04/26/2022 12:10 pm CLINICAL HISTORY: Slurred speech, dizziness COMPARISON: None. TECHNIQUE: Axial and coronal 3D [id number] image acquisition was performed. 3D rotational images were generated with source and reconstruction images reviewed. Horizontal and vertical axis rotation al views generated using MIP protocol. FINDINGS: No basilar artery stenosis or suspicious finding. Left vertebral artery is dominant. There is mild vertebrobasilar tortuosity. Patient has a very small distal right vertebral artery. Mild narrowing is seen along the vertical petrous portion of the left internal carotid artery. Signif icant atherosclerotic change and luminal narrowing seen in the supraclinoid and distal most cavernous sinus portions of each internal carotid artery. This is worse on the right. 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 Anterior com municating artery is present. Mild to moderate atherosclerotic changes are present in the M1 and M2 s egments of the middle cerebral arteries, worse on the left. Moderate atherosclerotic changes are pres ent in the bilateral P2 segments of each posterior cerebral artery. No aneurysm or vascular malformation. No vasculitis or named branch occlusion identified. IMPRESSION: Significant atherosclerotic change in the distal internal carotid arteries and moderate severity atherosclerotic changes in the proximal portions of the middle cerebral and posterior cerebr al arteries. No named branch occlusion.
--- NOTE | 2022-04-26 12:46 | RAD REPORT ---
EXAM DESCRIPTION: MRI - MRA Neck W/Wo Cont - 04/26/2022 12:10 pm CLINICAL HISTORY: Slurred speech COMPARISON: None. TECHNIQUE: Magnetic resonance angiogram of the neck was performed. 20 cc MultiHance was administered intravenously. 3D MIPS reconstruction performed FINDINGS: Diminished signal is present within the left lateral aspect of the brachiocephalic artery extending into the right common carotid artery. Mild plaque is present within remainder of common carotid, internal carotid and external carotid kian maddie bilaterally. Right vertebral artery is hypoplastic. Moderate narrowing distal right vertebral artery. Vertebral ar teries otherwise appear unremarkable IMPRESSION: Diminished signal within the left lateral aspect of the brachiocephalic artery extending into the right common carotid artery. This probably is secondary to artifact or plaque. However as a a subtle dissection can have this appearance if clinically indicated a CT angiogram neck could be o btained for further evaluation Moderate narrowing distal right vertebral artery probably chronic NASCET criteria used. Mild 0-49% stenosis Moderate 50-69% stenosis Severe 70-99% stenosis
--- NOTE | 2022-04-26 12:50 | RAD REPORT ---
EXAM DESCRIPTION: MRI - Brain W/Wo Cont - 04/26/2022 12:33 pm CLINICAL HISTORY: Slurred speech COMPARISON: head CT April 26, 2022 TECHNIQUE: Axial, sagittal, and coronal magnetic images of the brain were obtained. 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 The ventricles are normal in caliber. Diffusion-weighted/ ADC mapping sequences do not demonstrate evidence of an acute infarction. No abnormal enhancement within the brain is seen. An extra-axial fluid collection is not noted. Moderate to marked signal within the left mastoids may indicate mastoiditis IMPRESSION: No acute intracranial abnormality displayed Moderate to marked signal within the left mastoids may indicate mastoiditis
[2022-04-26] MEDS ORDERED: FOLIC ACID 1 MG TABLET ONE (13:04)
[2022-04-26] MEDS ORDERED: ASPIRIN 81 MG CHEWABLE TABLET ONE (13:04)
[2022-04-26 13:26] LABS: SARS-CoV-2 Antigen Rapid Res Negative (Negative)
[2022-04-26] MEDS ORDERED: GLUCAGON 1 MG/VIAL IM PRN (13:57)
[2022-04-26] MEDS ORDERED: ONDANSETRON 4 MG/2 ML VIAL IV PRN (13:57)
[2022-04-26] MEDS ORDERED: ACETAMINOPHEN 500 MG TAB PO PRN (13:57)
[2022-04-26] MEDS ORDERED: MORPHINE 2 MG/ML SYR IV PRN (13:57)
[2022-04-26] MEDS ORDERED: D10W 250 ML BAG IV PRN (14:07)
[2022-04-26] MEDS: INSULIN -REGULAR HUMAN 50 UNIT/0.5 ML ML SQ SCH ×2 (16:30→21:00)
[2022-04-26] MEDS ORDERED: NA CHLORIDE 0.9% 500 ML ONE (16:48)
[2022-04-26] MEDS ORDERED: CEFAZOLIN 1 GM in NA CHLORIDE 0.9% 50 ML IVPB SCH (17:00)
--- NOTE | 2022-04-26 17:20 | P.HP ---
Certification for Inpatient Patient admitted to: Inpatient With expected LOS: >2 Midnights Practitioner: I am a practitioner with admitting privileges, knowledge of patient current condition, hospital course, and medical plan of care. Services: Services provided to patient in accordance with Admission requirements found in Title 42 Section 412.3 of the Code of Federal Regulations Patient History Date of Service: 04/26/22 Reason for admission: weakness, leathargy History of Present Illness: ROJAS IS A DIABETIC WITH MANY COMPLICATIONS. SHE IS WHELCHAIR BOUND. SHE WAS SITTING IN WAITING AREA AHD BECAME LETHARGIC WITH SLURRED AND SLOW SPEECH. ER DOCTOR AND DR. LAWRENCE DECIDED TO DO TPA. C T NEG AND LATER MRI WAS ALSO NEGATIVE. Allergies niacin Allergy (Mild, Verified 12/27/12 15:26) Hives/Rash zolpidem tartrate [From Ambien] Allergy (Mild, Verified 12/27/12 15:26) Nausea/Vomiting TAPE Allergy (Mild, Uncoded 02/11/12 12:17) Rash Home Medications: Clopidogrel Bisulfate [Plavix*] 75 mg PO DAILY 12/27/12 Gabapentin [Neurontin*] 400 mg PO TID 12/27/12 Insulin -Regular Human [Novolin -R*] 100 unit IJ 12/27/12 Losartan/Hydrochlorothiazide [Losartan-Hctz 100-12.5 mg Tab] 1 each PO DAILY 12/27/12 Melatonin [Melatonin*] 5 mg PO BEDTIME PRN 12/27/12 Paroxetine HCl [Paxil] 20 mg PO DAILY 12/27/12 Pravastatin [Pravachol*] 40 mg PO DAILY 12/27/12 NPH, Human Insulin Isophane [Humulin N] 25 unit SQ BID #0 ml 12/28/12 - Past Medical/Surgical History Diabetic: Yes -: IDDM -: HTN -: CAD -: NON-HODGKINS LYMPHOMA -: DEPRESSION -: ANXIETY -: HYSTERECTOMY -: OPEN LAP -: BTL -: RIGHT BREAST LUMPECTOMY -: COLONOSCOPY -: LYMPH NODES REMVOVAL - Social History Alcohol use: No CD- Drugs: No Caffeine use: Yes Review of Systems 10-point ROS is otherwise unremarkable Physical Examination - Physical Exam General: Alert, Mild distress, Obese HEENT: Atraumatic, PERRLA, Mucous membr. moist/pink, EOMI, Sclerae nonicteric Neck: Supple, 2+ carotid pulse no bruit, No LAD, Without JVD or thyroid abnormality Respiratory: Clear to auscultation bilaterally, Normal air movement Cardiovascular: Regular rate/rhythm, Normal S1 S2 Gastrointestinal: Normal bowel sounds, No tenderness Musculoskeletal: No tenderness Integumentary: No rashes Neurological: Normal speech, Normal strength at 5/5 x4 extr (UPPER LIMBS. LOWER UNSTEADY WITH NEUROPATHY.), Abnormal gait (WC BOUND.) Lymphatics: No axilla or inguinal lymphadenopathy - Studies Laboratory Data (last 24 hrs) 04/26/22 10:40: PT 11.6, INR 1.05, APTT 29.3 04/26/22 10:40: Sodium 136, Potassium 4.3, BUN 31 H, Creatinine 1.64 H, Glucose 436 H*, Total Bilirubin 0.4, AST 12 L, ALT 17, Alkaline Phosphatase 138 H 04/26/22 10:10: WBC 10.30, Hgb 13.6, Hct 40.4, Plt Count 255 Assessment and Plan - Problems (Diagnosis) (1) Altered mental state Current Visit: Yes Status: Acute Plan: I AM NOT SURE WHAT WE WITNESSSED WAS A STROKE OR ATYPICAL SEIZURE. KEPPRA MAY HELP. GLUCOSE HAS BEEN HIGH WITH HER OFF AND ON COMPLIANCE IS POOR. (2) Uncontrolled diabetes mellitus with hyperglycemia Current Visit: Yes Status: Chronic (3) Dehydration Current Visit: Yes Status: Acute Plan: IV HYDRATION. (4) Diabetes mellitus with complication Current Visit: Yes Status: Chronic Plan: SHEHAS NEUROPATHY, JAME, OA, CHARCOT JOINTS. SOMEMEMORY LOSS. ASCVD. - Advance Directives Does patient have a Living Will: No Does patient have a Durable POA for Healthcare: No
--- NOTE | 2022-04-26 19:04 | RAD REPORT ---
EXAM DESCRIPTION: Gilberto Angio04/26/2022 6:42 pm CLINICAL HISTORY: Slurred speech COMPARISON: MRI April 26, 2022 TECHNIQUE: 50 cc Isovue 370 was administered intravenously. 3D MIP reconstruction performed All CT scans are performed using dose optimization technique as appropriate and may include automated exposure control or mA/KV adjustment according to patient size. FINDINGS: Brachiocephalic and proximal right common carotid artery are normal caliber. Abnormality seen on the MRA likely represented artifact. Mild plaque proximal right internal carotid artery resulting in an approximately 40% stenosis. Mild plaque within remainder common carotid, internal and external carotid arteries resulting in less stenosis. Right vertebral artery is hypoplastic. Distal right vertebral artery moderately narrowed could simply be secondary to it being hypoplastic. A chronic stenosis is another consideration. Left vertebral artery unremarkable IMPRESSION: Brachiocephalic and proximal right common carotid artery normal Mild plaque within the carotid arteries NASCET criteria used. Mild 0-49% stenosis Moderate 50-69% stenosis Severe 70-99% stenosis
[2022-04-26 23:40] VITALS: BMI 39.6
[2022-04-27 02:25] LABS: Hematocrit 37.4 % (36.0-45.0); Lymphocytes % 37.8 % (15.3-44.8); MCV 92.4 fL (80-100); MPV 8.6 fL (7.6-11.3); RBC Red Blood Cell Count 4.05 M/uL (3.86-4.86)
[2022-04-27 02:38] LABS: Potassium 4.6 mmol/L (3.5-5.1)
[2022-04-27] MEDS ORDERED: MELATONIN 3 MG TABLET PO PRN (06:29)
[2022-04-27 06:50] VITALS: TEMP 98.5
[2022-04-27 07:16] LABS: HDL Cholesterol 29 mg/dL (40-60); LDL, Direct 73 mg/dL (100-129)
[2022-04-27] MEDS: INSULIN -REGULAR HUMAN 50 UNIT/0.5 ML ML SQ SCH ×2 (07:30→11:30)
[2022-04-27] MEDS ORDERED: GABAPENTIN 300 MG CAP ONE (07:53)
[2022-04-27] MEDS ORDERED: CLOPIDOGREL 75 MG TABLET ONE (07:53)
[2022-04-27] MEDS ORDERED: METOPROLOL TAR 25 MG TAB ONE (07:54)
[2022-04-27] MEDS ORDERED: INSULIN -REGULAR HUMAN 50 UNIT/0.5 ML ML ONE ×2 (07:55→11:43)
[2022-04-27] MEDS ORDERED: INFLUENZA VACCINE (for 6+ mo) 0.5 ML DOSE IMVAC ONE ×2 (08:00→09:18)
[2022-04-27] MEDS ORDERED: PARoxetine HCL 10 MG TAB PO SCH (09:00)
[2022-04-27] MEDS ORDERED: levETIRAcetam 500 MG TAB PO SCH (09:00)
[2022-04-27] MEDS ORDERED: GABAPENTIN 300 MG CAP PO SCH (09:00)
[2022-04-27] MEDS ORDERED: CLOPIDOGREL 75 MG TABLET PO SCH (09:00)
[2022-04-27] MEDS ORDERED: INSULIN GLARGINE 100 UNIT/ML SQ SCH (09:00)
[2022-04-27] MEDS ORDERED: METOPROLOL XL 25 MG TAB PO SCH (09:00)
[2022-04-27 09:14] VITALS: O2SAT 95
[2022-04-27] MEDS ORDERED: levETIRAcetam 500 MG TAB ONE (09:17)
[2022-04-27] MEDS ORDERED: INSULIN GLARGINE 100 UNIT/ML SQ ONE (09:46)
[2022-04-27 12:06] VITALS: BP 110/46
--- NOTE | 2022-04-27 17:50 | CON ---
Reason For Consultation: Consultation is called because of possible stroke, status post TNK. History Of Present Illness: Ms. Pedro is a 67-year-old, right-handed, patient with diabete s mellitus, prior myocardial infarction, who had sudden onset of difficulty expressing herself, irvin turner while in the waiting area as her spouse was having carpal tunnel release surgery by Dr. Ashley degroot. She said she suddenly felt disoriented, confused, and the local staff noticed she was also confus ed and her blood sugars were checked. She actually prior to that got 2 small muffins and ate those, but that did not relieve her confusion and then the staff checked blood sugars and found that blood s ugar was 481. She had not taken her insulin that morning. She did have a headache, but there was no weakness or numbness in the face, arm, or leg. At that time, the patient came to [facility] at 9:55 a.m. and the episode began within an hour of her arrival. NIH Stroke Scale was 2. After d iscussion with the hospitalist, my advice was that the patient receive TNKs and she did receive the T NKs after blood sugars were managed. She did say her symptoms actually have resolved completely and it is unclear if it is related to TNKs or not. She did have subsequent imaging, which shows negative CT scan initially prior to receiving TNKs and a subsequent brain MRI, which was normal. No acute is chemic or hemorrhagic changes were seen. However, there was moderate to marked signal in the left ma stoid air cell area consistent with left mastoiditis. Her neck magnetic resonance angiogram initiall y suggested significant occlusions and multiple vessels including diminished flow in the left lateral aspect of the brachiocephalic artery extending to the right common carotid and there was possibility of dissection. CT angiogram was suggested. A subsequent CT angiogram showed that the area felt to be due to possible dissection was artifact there. The brachiocephalic and proximal right common wayne tid arteries were normal with mild plaque in the right internal carotid artery resulting about 40% st enosis. Magnetic resonance angiogram of her [place] showed significant arthrosclerotic babcock ges in the distal internal carotid arteries and moderate severity arthritis change of proximal portio n of the middle cerebral and posterior cerebral arteries. Following TNKs, 24 hours after she is on a spirin, Plavix, folic acid, and statin. Because of the possibility that the event was not a stroke, but a seizure, which causes confusion, the discussion with Dr. Kothari led to the patient being placed on Keppra 250 mg twice daily. Is a low-dose Keppra. In addition, Dr. Kothari started Semglee 20 units daily for better glucose control. Patient continued gabapentin 600 mg 3 times daily for diabetic ne uropathy, Toprol 25 mg daily, Paxil 20 mg daily. Past Medical History: As noted above. Allergies: ZOLPIDEM, NIACIN. Social History: No alcohol, tobacco, or IV drug use. The patient does live with . Review of Systems: No recent fevers, chills, nausea, vomiting, myalgias, arthralgias, rash, headache, weight change. No prior stroke. No prior seizure. Physical Examination: Vital Signs: Blood pressure 110/46, pulse 69, respiratory rate ranged from 14 to 20, oxygen saturati on 99% to 100%. She did have about 2 L of oxygen, temperature 98.5. General: Ms. Pedro is lying in bed in the emergency room. HEENT: She is normocephalic, atraumatic. Sclerae anicteric. Oropharynx pink and moist. Neck: Supple. Chest: Clear. Heart: Regular. Extremities: Show no clubbing, cyanosis, or edema. Neurological: She is alert and oriented to person, place, time, and situation. She has no expressiv e or receptive aphasias. Cranial nerves 2 through 12 intact. Motor exam intact of lower extremities , 5/5 proximally and distally. Sensory examination intact in upper and lower extremities. Coordinat ion intact in upper and lower extremities. Reflexes 1 to 2+ upper extremities and symmetric. She smith s good stance, right arm swing. Laboratory Studies: Complete blood count differential is completely normal. Coagulation panel is co mpletely normal. Chemistries remarkable for creatinine elevated to 1.57. Her blood sugars range up to 318. Hemoglobin A1c is 8.3. Triglycerides elevated at 163, LDL cholesterol 73, HDL 29, cholester ol HDL ratio is 4.24. Note, her highest glucose was 440 when she came in to the hospital. Her alkal ine phosphatase slightly elevated 138. COVID testing is negative. Her chest x-ray shows mild promin ent interstitial pattern, believed to be baseline. Assessment: Ms. Pedro is a 67-year-old patient with uncontrolled diabetes, hypertension, dyslipidemi a, who comes with a possible TIA versus seizure. She is status post TNK. She has no residual confus ion or disorientation or slurred speech. Radiological examination is normal. Plan: 1.Aspirin, Plavix, folic acid, statin as indicated. 2.Continue Keppra 250 mg twice daily. 3.We will do EEG outpatient. 4.I check blood level of Keppra in 10-14 days and consider tapering Keppra off if patient has no sei zures in the next 2-4 months. She should follow up with Dr. Savage's office in 1-2 months after dalton jenkins. PRATIK/NAS Voice ID: [id number] Report ID: [id number]
== END 2022-04-27 02:00 | disposition home or self-care (01) ==
LOC: ER 09:47 → ERHOLD 14:01
PROVIDERS: ADMIT Internal Medicine; ATTEND Internal Medicine
DX: R41.82 Altered mental status, unspecified (principal); E11.65 Type 2 diabetes mellitus with hyperglycemia; E86.0 Dehydration; E11.40 Type 2 diabetes mellitus with diabetic neuropathy, unspecified; I10 Essential (primary) hypertension; Z88.8 Allergy status to other drugs, medicaments and biological substances; I25.2 Old myocardial infarction; R47.81 Slurred speech; Z20.822 Contact with and (suspected) exposure to COVID-19; Z23 Encounter for immunization
CPT/HCPCS: 36415; 70450; 70498; 70544; 70549; 70553; 71045; 80048; 80061; 80076; 82947; 83036; 84484; 85025; 85610; 85730; 87811; 90471; 93005; A9577; G0378; J1815; J3101; J7040; Q2035; Q9967

== ENCOUNTER 2022-06-13 19:51 | Observation (INO) | payer OTHER ==
--- OUTSIDE RECORDS SUMMARY | 2022-06-13 19:52 | XMS REPORT | Continuity of Care Document ---
:1955 Author Organization [facility] t Address [address] [place] [address] [place] [id number] Care Team Providers Name Role Phone PCP, PATIENT DOES NOT HAVE A Primary Care Physician LUX Navarro Attending Clinician Unavailable MARILYN LOPEZ Attending Clinician Unavailable Marilyn Murillo Attending Clinician Payers Payer Name Policy Type Policy Number Effective Date Expiration Date lyn MEDICARE PART A [id number] 2019 \T\ B 00:00:00 Problems Condition Condition Condition Status Onset Resolution Last Treating Co mments Source Name Details Category Date Date Treatment Clinician Date No known No known Disease Unive rs active active ity of problems problems [facility] Allergies, Adverse Reactions, Alerts Allergy Allergy Status Severity Reaction(s) Onset Inactive Treating Comm ents Source Name Type Date Date Clinician NO KNOWN Drug Active Univers ALLERGIE Class ity of S [facility] Social History Social Habit Start Date Stop Date Quantity Comments Source Exposure to 2021-09-20 2021-09-30 Not sure [facility] SARS-CoV-2 (event) 00:00:00 18:06:00 Medica l Branch Sex Assigned At [birth year] [facility] 00:00:00 00:00:00 [facility] Smoking Status Start Date Stop Date Source Never smoker [facility] Medications Ordered Filled Start Stop Current [...] ity o f mg tablet 14:24: daily. [address] Branch insulin Yes inject Univers 70/30 [...] mouth ity of mg tablet 14:24: daily. [address] Branch losartan-hy Yes 1{tbl} Take 1 Un stephen drochloroth 7-30 tablet by ity of iazide 14:24: mouth [place] (HYZAAR) 06 daily. Medical 100-12.5 mg Branch per tablet clopidogrel Yes 75mg Take 75 mg Univers (PLAVIX) 75 7-30 by mouth ity of mg tablet 14:24: daily. [address] Branch ranitidine Yes 150mg Take 1 [...] 23:06:00 150 mm[Hg] Univer sity of pressure [facility] Diastolic blood 2021-09-30 23:06:00 59 mm[Hg] [facility] Heart rate 2021-09-30 23:06:00 68 /min Universi ty of [facility] Respiratory rate 2021-09-30 23:06:00 18 /min [facility] Body height 2021-09-30 23:06:00 154.9 cm [facility] ty [facility] Body weight 2021-09-30 23:06:00 90.719 kg [facility] BMI 2021-09-30 23:06:00 37.79 kg/m2 [facility] Oxygen saturation in 2021-09-30 23:06:00 96 /min [facility] Arterial blood by [facility] Pulse oximetry [place] Procedures Procedure Date / Time Performed Performing Clinician Sour e XR FOOT 3+ VW RIGHT 2021-09-30 23:27:38 Marilyn Lopez [facility] Encounters Start End Encounter Admission Attending Care Care Encounter Source Date/Time Date/Time Type Type Clinicians Facility Department ID 2021-10-07 2021-10-07 [facility] [id number] Univers 11:15:00 11:15:00 LUX navarro [facility] 2021-10-07 2021-10-07 [facility] [id number] Univers 10:30[facility]00 [facility]30[facility]-09-[facility] 2021-09-30 [facility] [id number] Univers 18:16:43 23:59:00 [address]ILY[address] o f [facility] 2021-09-30 2021-09-30 [facility] [id number] Univers 18:16:43 23:59:[address] [facility] [id number] ity of [place] [id number] Carlos as MELCHOR?BLEA [id number] [facility] [address] [place] MEDICAL OFFICE BUILDING 2021-09-30 2021-09-30 Urgent [facility] [id number] Univers 18:00:00 18:34:[address] [facility] [id number] i ty of [place] [id number] Carlos as MELCHOR?BLEA [id number] Me dical [address] MEDICAL OFFICE BUILDING 2021-09-30 2021-09-30 [facility] [id number] Univers 18:00:00 18:00:[address] [facility] 2021-09-30 2021-09-30 Outpatient R [facility] [id number] Univers 17:00:00 17:00:00 [facility] 2020-03-05 2020-03-05 Outpatient R [facility] [id number] Univers 14:20:00 14:20:00 [facility] Results This patient has no known results.
[2022-06-13 20:29] LABS: Absolute Lymphocytes (CBC) 2.4 K/uL (0.7-4.9); Hematocrit 38.1 % (36.0-45.0); Lymphocytes % 33.2 % (15.3-44.8); MCV 90.9 fL (80-100); MPV 8.8 fL (7.6-11.3); RBC Red Blood Cell Count 4.19 M/uL (3.86-4.86)
[2022-06-13 20:33] LABS: Protime INR 1.06
[2022-06-13 20:57] LABS: Potassium 4.1 mEq/L (3.5-5.1)
[2022-06-13 20:58] LABS: Albumin 3.2 g/dL (3.4-5.0); Bilirubin Direct 0.1 mg/dL (0-0.2); Bilirubin Total 0.8 mg/dL (0.2-1.0); Protein, Total 6.9 g/dL (6.4-8.2); Troponin High Sensitivity 8.9 (<58.9)
[2022-06-13 20:59] LABS: Magnesium 1.8
--- NOTE | 2022-06-13 21:24 | EDPHYS ---
Physician Documentation [facility] Name: Kala Pedro Age: 67 yrs Sex: Female : 1955 Arrival Date: 06/13/2022 Time: 19:51 Bed 6 Private MD: ED Physician Marianela Romero HPI: 06/13 20:11 This 67 yrs old Female presents to ER via Unassigned with complaints of Chest Pain. 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 She denies any back pain, shortness of breath, jaw pain, neck pain, left arm pain, any other anginal equivalents, abdominal pain, nausea, vomiting, diarrhea, syncope, focal neurodeficit, rash, travel history, known sick contacts, or any other aspect of ROS at this time.. Historical: - Allergies: 22:20 ambien; pf1 22:20 Adhesives; pf1 - Home Meds: 22:23 Metoprolol Tartrate Oral [Active]; pf1 - PMHx: 22:20 diabetes mellitus; Myocardial infarction; atypical seizure; Hypertensive disorder; pf1 Anxiety; depression; neuropathy; charcot's syndrome; - PSHx: 22:20 cardiac stent x 2; pf1 - Immunization history:: Adult Immunizations not up to date, Client reports receiving the 2nd dose of the Covid vaccine, Moderna Last tetanus immunization: > 10 years ago Flu vaccine is up to date. - Social history:: Smoking status: Patient denies any tobacco usage or history of. Patient/guardian denies using alcohol, street drugs. ROS: 20:12 Constitutional: Negative for fever, chills, and weight loss, Eyes: Negative for injury, sp3 pain, redness, and discharge, ENT: Negative for injury, pain, and discharge, Neck: Negative for injury, pain, and swelling, Respiratory: Negative for shortness of breath, cough, wheezing, and pleuritic chest pain, Abdomen/GI: Negative for abdominal pain, nausea, vomiting, diarrhea, and constipation, Back: Negative for injury and pain, MS/Extremity: Negative for injury and deformity, Skin: Negative for injury, rash, and discoloration, Neuro: Negative for headache, weakness, numbness, tingling, and seizure, Psych: Negative for depression, anxiety, suicide ideation, homicidal ideation, and hallucinations, Allergy/Immunology: Negative for hives, rash, and allergies, Endocrine: Negative for neck swelling, polydipsia, polyuria, polyphagia, and marked weight changes, Hematologic/Lymphatic: Negative for swollen nodes, abnormal bleeding, and unusual bruising. 20:12 All other systems are negative. Exam: 20:12 Constitutional: This is a well developed, well nourished patient who is awake, alert, sp3 and in no acute distress. Head/Face: Normocephalic, atraumatic. Eyes: Pupils equal round and reactive to light, extra-ocular motions intact. Lids and lashes normal. Conjunctiva and sclera are non-icteric and not injected. Cornea within normal limits. Periorbital areas with no swelling, redness, or edema. ENT: Nares patent. No nasal discharge, no septal abnormalities noted. External auditory canals are clear. Oropharynx with no redness, swelling, or masses, exudates, or evidence of obstruction, uvula midline. Mucous membranes moist. Neck: Trachea midline, no thyromegaly or masses palpated, and no cervical lymphadenopathy. Supple, full range of motion without nuchal rigidity, or vertebral point tenderness. No Meningismus. Chest/axilla: Normal chest wall appearance and motion. Nontender with no deformity. No lesions are appreciated. Cardiovascular: Regular rate and rhythm with a normal S1 and S2. No gallops, murmurs, or rubs. Normal PMI, no JVD. No pulse deficits. Respiratory: Lungs have equal breath sounds bilaterally, clear to auscultation and percussion. No rales, rhonchi or wheezes noted. No increased work of breathing, no retractions or nasal flaring. Abdomen/GI: Soft, non-tender, with normal bowel sounds. No distension or tympany. No guarding or rebound. No evidence of tenderness throughout. Back: No spinal tenderness. No costovertebral tenderness. Full range of motion. Skin: Warm, dry with normal turgor. Normal color with no rashes, no lesions, and no evidence of cellulitis. MS/ Extremity: Pulses equal, no cyanosis. Neurovascular intact. Full, normal range of motion. Neuro: Awake and alert, GCS 15, oriented to person, place, time, and situation. Cranial nerves II-XII grossly intact. Motor strength 5/5 in all extremities. Sensory grossly intact. Cerebellar exam normal. Normal gait. Psych: Awake, alert, with orientation to person, place and time. Behavior, mood, and affect are within normal limits. 20:12 ECG was reviewed by the Attending Physician. EKG demonstrates sinus bradycardia at 50 bpm with normal intervals, normal QRS, normal axis, normal ST/T-segment's without evidence of acute ischemia. Vital Signs: 19:50 BP 146 / 59; Pulse 55; Resp 16; Temp 97.3; Pulse Ox 97% on R/A; Weight 95.25 kg; Height pf1 5 ft. 1 in. ; Pain 2/10; 20:56 BP 158 / 72; Pulse 49; Resp 17 S; Pulse Ox 97% on R/A; lg3 23:07 BP 134 / 55; Pulse 53; Resp 17 S; Pulse Ox 97% on R/A; lg3 19:50 Body Mass Index 39.68 (95.25 kg, 154.94 cm) pf1 19:50 Pain Scale: Adult pf1 MDM: 20:01 Patient medically screened. sp3 20:13 Data reviewed: vital signs, nurses notes, lab test result(s), EKG, radiologic studies. sp3 ED course: 67-year-old female with extensive cardiac history now presents again for recurrent chest pain. Heart score is greater than 4 and patient will need observation with serial cardiac markers and cardiology evaluation for possible stress test and/or angiography as deemed necessary. Clinically I am not highly suspicious for aortic pathology, pulmonary embolism, pneumonia, pneumothorax, GI pathology as a cause for her symptoms currently. As ACS is the leading diagnosis at this point, we will give aspirin and treat pain as needed and await continued work-up and data acquisition for pathway.. 06/13 20: Order name: Basic Metabolic Panel; Complete Time: 21:12 sp3 06/13 20: Order name: CBC with Diff; Complete Time: 20:52 sp3 06/13 20: Order name: LFT's; Complete Time: 21:12 sp3 06/13 20: Order name: Magnesium; Complete Time: 21:12 sp3 06/13 20:01 Order name: NT PRO-BNP; Complete Time: 21:12 sp3 06/13 20:01 Order name: PT-INR; Complete Time: 20:52 sp3 06/13 20:01 Order name: Troponin HS; Complete Time: 21:12 sp3 06/13 21:36 Order name: SARS RAPID lg3 06/13 20:01 Order name: XRAY Chest (1 view) sp3 06/13 20:01 Order name: EKG; Complete Time: 20:02 sp3 06/13 20:01 Order name: Cardiac monitoring; Complete Time: 20:14 sp3 06/13 20:01 Order name: EKG - Nurse/Tech; Complete Time: 20:14 sp3 06/13 20:01 Order name: IV Saline Lock; Complete Time: 20:14 sp3 06/13 20:01 Order name: Labs collected and sent; Complete Time: 20:55 sp3 06/13 20:01 Order name: O2 Per Protocol; Complete Time: 20:14 sp3 06/13 20:01 Order name: O2 Sat Monitoring; Complete Time: 20:14 sp3 Administered Medications: No medications were administered Disposition Summary: 06/13/22 21:23 Hospitalization Ordered Hospitalization Status: Observation sp3 Provider: Trenton Kothari sp3 Location: Telemetry/MedSur (observation) sp3 Condition: Stable sp3 Problem: an acute exacerbation sp3 Symptoms: have worsened sp3 Bed/Room Type: Standard sp3 Room Assignment: 210(06/13/22 22:53) Diagnosis - Chest pain, unspecified sp3 Forms: - Medication Reconciliation Form sp3 - SBAR form sp3 Signatures: Dispatcher [employer] Celeste Corrales, RN RN cg Marianela Romero MD MD sp3 Rylie landry RN RN pf1 Corrections: (The following items were deleted from the chart) 22:53 21:23 sp3 cg
--- NOTE | 2022-06-13 21:24 | ER ---
Nurse's Notes [facility] Name: Kala Pedro Age: 67 yrs Sex: Female : 1955 Arrival Date: 06/13/2022 Time: 19:51 Bed 6 Private MD: Diagnosis: Chest pain, unspecified Presentation: 06/13 19:50 Chief complaint: Patient states: mid sternal chest pain of 2 that radiates to left pf1 arm,onset today. [facility] stated gave patient Nitro 0.4mg x 1 SL and patient stated took ASA 650mg [employer]. 19:50 Method Of Arrival: EMS: [facility] pf1 19:50 Coronavirus screen: Vaccine status: Patient reports receiving the 2nd dose of the covid pf1 vaccine. Moderna Client denies travel out of the [place] in the last 14 days. At this time, the client does not indicate any symptoms associated with coronavirus-19. Ebola Screen: Patient negative for fever greater than or equal to 101.5 degrees Fahrenheit, and additional compatible Ebola Virus Disease symptoms. Initial Sepsis Screen: Does the patient meet any 2 criteria? No. Patient's initial sepsis screen is negative. Does the patient have a suspected source of infection? No. Patient's initial sepsis screen is negative. Risk Assessment: Do you want to hurt yourself or someone else? Patient reports no desire to harm self or others. 19:50 Acuity: LEXUS 2 pf1 23:13 Onset of symptoms was June 13, 2022. lg3 Historical: - Allergies: 22:20 ambien; pf1 22:20 Adhesives; pf1 - Home Meds: 22:23 Metoprolol Tartrate Oral [Active]; pf1 - PMHx: 22:20 diabetes mellitus; Myocardial infarction; atypical seizure; Hypertensive disorder; pf1 Anxiety; depression; neuropathy; charcot's syndrome; - PSHx: 22:20 cardiac stent x 2; pf1 - Immunization history:: Adult Immunizations not up to date, Client reports receiving the 2nd dose of the Covid vaccine, Moderna Last tetanus immunization: > 10 years ago Flu vaccine is up to date. - Social history:: Smoking status: Patient denies any tobacco usage or history of. Patient/guardian denies using alcohol, street drugs. Screenin:48 [facility] ED Fall Risk Assessment (Adult) History of falling in the last 3 months, pf1 including since admission No falls in past 3 months (0 pts) Confusion or Disorientation No (0 pts) Intoxicated or Sedated No (0 pts) Impaired Gait No (0 pts) Mobility Assist Device Used No (0 pt) Altered Elimination No (0 pt) Score/Fall Risk Level 0 - 2 = Low Risk Oriented to surroundings, Maintained a safe environment, Educated pt \T\ family on fall prevention, incl call for assistance when getting out of bed, Assessed \T\ reinforced patient's understanding of fall precautions, Provided non-skid footwear, Hourly rounding (assess needs \T\ fall precautionary measures) done, Used ambulatory aids as needed (educated on \T\ assisted with), Used gait belt as appropriate. Abuse screen: Denies threats or abuse. Nutritional screening: No deficits noted. Tuberculosis screening: No symptoms or risk factors identified. Assessment: 19:50 General: Appears in no apparent distress. comfortable, well groomed, well developed, pf1 Behavior is calm, cooperative, appropriate for age, quiet. 19:50 Pain: Complains of pain in chest Pain radiates to left arm Pain currently is 2 out of pf1 10 on a pain scale. Pain began today. Neuro: No deficits noted. Level of Consciousness is awake, alert, obeys commands, Oriented to person, place, time, situation. Cardiovascular: Reports chest pain, Capillary refill < 3 seconds Patient's skin is warm and dry. Rhythm is sinus bradycardia. Respiratory: No deficits noted. Airway is patent Respiratory effort is even, unlabored, Respiratory pattern is regular, symmetrical. GI: No deficits noted. No signs and/or symptoms were reported involving the gastrointestinal system. : No deficits noted. No signs and/or symptoms were reported regarding the genitourinary system. EENT: No deficits noted. No signs and/or symptoms were reported regarding the EENT system. 23:09 Reassessment: Patient appears in no apparent distress at this time. No changes from lg3 previously documented assessment. Patient and/or family updated on plan of care and expected duration. Pain level reassessed. Patient is alert, oriented x 3, equal unlabored respirations, skin warm/dry/pink. Vital Signs: 19:50 BP 146 / 59; Pulse 55; Resp 16; Temp 97.3; Pulse Ox 97% on R/A; Weight 95.25 kg; Height pf1 5 ft. 1 in. ; Pain 2/10; 20:56 BP 158 / 72; Pulse 49; Resp 17 S; Pulse Ox 97% on R/A; lg3 23:07 BP 134 / 55; Pulse 53; Resp 17 S; Pulse Ox 97% on R/A; lg3 19:50 Body Mass Index 39.68 (95.25 kg, 154.94 cm) pf1 19:50 Pain Scale: Adult pf1 ED Course: 19:50 No provider procedures requiring assistance completed. pf1 19:50 Maintain EMS IV. Dressing intact. Good blood return noted. Site clean \T\ dry. Gauge \T\ pf 1 site: 20g to LAC. Patient maintains SpO2 saturation greater than 95% on room air. 19:50 Patient has correct armband on for positive identification. Client placed on continuous pf1 cardiac and pulse oximetry monitoring. NIBP monitoring applied. nurse monitoring on. 19:51 Patient arrived in ED. ja2 19:52 Marianela Romero MD is Attending Physician. sp3 20:09 Rylie landry, JANNY is Primary Nurse. pf1 20:14 Triage completed. pf1 20:55 Basic Metabolic Panel Sent. lg3 20:55 LFT's Sent. lg3 20:55 Magnesium Sent. lg3 20:55 NT PRO-BNP Sent. lg3 20:55 Troponin HS Sent. lg3 21:22 Trenton Kothari MD is Hospitalizing Provider. sp3 21:47 SARS RAPID Sent. lg3 21:49 XRAY Chest (1 view) In Process Unspecified. EDMS 23:13 Patient admitted, IV remains in place. intact, No redness/swelling at site. lg3 23:13 Arm band placed on right wrist. lg3 Administered Medications: No medications were administered Medication: 23:13 VIS not applicable for this client. lg3 Outcome: 21:23 Decision to Hospitalize by Provider. sp3 23:13 Admitted to Med/surg accompanied by tech, via wheelchair, room 210, Report called to lg3 Luciano 23:13 Condition: stable 23:13 Instructed on the need for admit, Demonstrated understanding of instructions. 23:41 Patient left the ED. lg3 Signatures: Dispatcher [employer] EDMS Triny Roberts, RN RN lg3 Marianela Romero MD MD sp3 Jennie Mcmullen Pamala, JANNY RN pf1
--- NOTE | 2022-06-13 21:57 | RAD REPORT ---
EXAM DESCRIPTION: RAD - Chest Single View - 06/13/2022 9:47 pm CLINICAL HISTORY: DYSPNEA Chest pain. COMPARISON: Chest Single View dated 04/26/2022; CHEST SINGLE VIEW dated 12/27/2012; CHEST SINGLE VIEW d ated 02/06/2011; CHEST SINGLE VIEW dated 09/01/2009 FINDINGS: Portable technique limits examination quality. The lungs are grossly clear. The heart is normal in size. No displaced fractures. IMPRESSION: No acute intrathoracic process suspected.
[2022-06-13 22:09] LABS: SARS-CoV-2 Antigen Rapid Res Negative (Negative)
[2022-06-13] MEDS ORDERED: ONDANSETRON 4 MG/2 ML VIAL IV PRN (23:51)
[2022-06-14] MEDS: ACETAMINOPHEN 500 MG TAB PO PRN ×2 (00:31→09:06)
[2022-06-14 01:26] LABS: Troponin High Sensitivity 10.5 pg/mL (<58.9)
[2022-06-14 03:35] VITALS: BMI 39.2
[2022-06-14] MEDS ORDERED: MELATONIN 5 MG TABLET PO PRN (06:19)
[2022-06-14] MEDS ORDERED: GLUCAGON 1 MG/VIAL IM PRN ×2 (06:19→16:57)
[2022-06-14] MEDS ORDERED: D50W 25 GM/50 ML SYRINGE IV PRN (06:19)
[2022-06-14] MEDS ORDERED: D10W 125 ML IV PRN (06:43)
[2022-06-14 08:02] LABS: Troponin High Sensitivity 10.8 pg/mL (<58.9)
[2022-06-14] MEDS ORDERED: PARoxetine HCL 10 MG TAB PO SCH (09:00)
[2022-06-14] MEDS ORDERED: LOSARTAN POTASSIUM 50 MG TABLET PO SCH (09:00)
[2022-06-14] MEDS ORDERED: CLOPIDOGREL 75 MG TABLET PO SCH (09:00)
[2022-06-14] MEDS ORDERED: METOPROLOL XL 25 MG TAB PO SCH (09:00)
[2022-06-14] MEDS ORDERED: hydroCHLOROthiazide 12.5 MG CAP PO SCH (09:00)
[2022-06-14] MEDS: INSULIN 70/30 100 UNITS/ML SQ SCH ×2 (09:04→20:36)
[2022-06-14] MEDS: GABAPENTIN 300 MG CAP PO SCH ×3 (09:06→20:36)
[2022-06-14] MEDS ORDERED: HEPA 1000U/500MLS 2,000 UNIT/1,000 ML BAG IV ONE (12:10)
[2022-06-14] MEDS ORDERED: LIDOCAINE 1% 20 ML MDV ONE (12:10)
[2022-06-14] MEDS ORDERED: ASPIRIN 325 MG TAB ONE (12:13)
[2022-06-14] MEDS ORDERED: VERAPAMIL HCL 10 MG/4 ML VIAL IV ONE (12:13)
[2022-06-14] MEDS ORDERED: FENTANYL CITR 100 MCG/2 ML ONE (12:13)
[2022-06-14] MEDS ORDERED: CLOPIDOGREL 75 MG TABLET ONE (12:13)
[2022-06-14] MEDS ORDERED: HEPARIN 10,000 UNIT/10 ML VIAL IV ONE (12:13)
[2022-06-14] MEDS ORDERED: MIDAZOLAM HCL 2 MG/2 ML INJ ONE (12:13)
[2022-06-14] MEDS ORDERED: HEPARIN 5000 UNIT/ML 1 ML VIAL ONE (12:13)
[2022-06-14] MEDS ORDERED: ATROPINE SULF 1 MG/10 ML SYR IV ONE (12:14)
[2022-06-14] MEDS ORDERED: TICAGRELOR 90 MG TABLET PO ONE (12:14)
[2022-06-14] MEDS ORDERED: NA CHLORIDE 0.9% 500 ML ONE (12:33)
[2022-06-14] MEDS ORDERED: ACETAMINOPHEN 500 MG TAB PO PRN (13:34)
--- NOTE | 2022-06-14 16:25 | CON ---
Date of Consultation: 06/14/2022 Reason For Consultation: Chest pain. History Of Present Illness: This is a 67-year-old female with a past medical history of diabetes and hypertension, history of IA, status post PCI to the RCA, who presented to the emergency room with ch est pain, pressure like, left-sided, radiates to the shoulder and it is exertional, and it has been c oming and going. No nausea or vomiting. No diarrhea. No diaphoresis. Past Medical History: As outlined above in the HPI. Medications: Refer to reconciliation sheet for detailed list. Allergies: SHE IS ALLERGIC TO NIACIN AND AMBIEN. Family History: No premature coronary artery disease or cancer. Social History: Does not smoke or drink. Does not use any drugs. Review of Systems: All systems reviewed and they were negative except what mentioned in HPI. Physical Examination: Vital Signs: Reviewed. Head and Neck: Pupils are equal, reactive to light. Intact eye movements. No JVD. No cervical lym phadenopathy. Neck is supple. Thyroid is not enlarged. Lungs: Clear to auscultation bilaterally. No rhonchi, wheezing, or crackles. No accessory muscle u se. Heart: Regular rate and rhythm. No extra sounds. Abdomen: Soft, nontender. Bowel sounds positive. No organomegaly. No masses or hernia. No rigidi ty or rebound. Extremities: No edema, clubbing, or cyanosis. Intact pulses. Skin: No rash. Neurologic: Alert, awake, oriented x3. No acute focal deficits appreciated. Lymph Nodes: No cervical or axillary lymphadenopathy. Investigations: Troponins are negative. BUN 30, creatinine 1.1, and hemoglobin is 13.1. Assessment And Recommendations: 1.Unstable angina. Chest pain is very typical and new onset. She has diabetes. Give p.o., plan fo r coronary angiogram. 2.Hypertension. Blood pressure is controlled. 3.Dyslipidemia. Recommend to start Lipitor 40 mg at bedtime. SR/MODL Voice ID: [id number] Report ID: [id number]
[2022-06-14] MEDS ORDERED: D10W 250 ML BAG IV PRN (17:12)
--- NOTE | 2022-06-14 17:22 | EKG ---
Test Date: 2022-06-13 Test Time: 20:01:30 Front Office Spec: ROJAS MEASUREMENT RESULTS: Intervals: Rate: 49 MO: 152 QRSD: 74 QT: 442 QTc: 399 [place]: P: 95 MO: 152 QRS: 69 T: 54 INTERPRETIVE STATEMENTS: Marked sinus bradycardia Abnormal ECG Compared to ECG 04/26/2022 10:29:53 Sinus rhythm no longer present Electronically Signed On 06-14-22 17:20:33 CDT by Martinez Linn
[2022-06-14 17:58] VITALS: BP 135/63; TEMP 97
--- NOTE | 2022-06-14 19:01 | OP ---
Date of Procedure: 06/14/2022 Surgeon: CHILANGO BOYER Procedures Performed: 1.Selective coronary angiogram. 2.Left heart catheterization. 3.Failed attempt PCI of mid LAD FIRER LOCOMOTIVE. Indication: Unstable angina. Access: Right radial artery 6-Kittitian closed with TR band. Complications: None. Bleeding: Less than 10 mL. Anesthesia: Total sedation time was 25 minutes. Description Of Procedure: After risks, benefits, and alternatives were explained, the patient agreed to the procedure and signed informed consent. The patient was brought into the cardiac catheterizat ion laboratory, prepped and draped in the usual sterile fashion. Then, I accessed the right radial a rtery using pediatric micropuncture kit, placed a 6-Kittitian Slender sheath, and took 5-Kittitian Ethridge 4. 0 catheter into the aortic root over a J-wire, engaged the left main and then right coronary artery, took standard views. Then, the catheter was pushed over the wire into the LV, measured the LVEDP, pu llback did not record any gradient. Then, I gave systemic heparin to assure ACT level above 250 and took EBU3.5 guide into the aortic root over a J-wire, engaged the left main and tried to send a Run-T hrough and then Fielder XT wire, could not cross the FIRER LOCOMOTIVE of the LAD, and then final angiogram did not show any complications. Then, we removed the wire and the guide and the sheath, and placed TR band with good hemostasis. Findings: 1.Left main; large and normal. 2.LAD; moderate size, appears normal proximal to mid and then becomes totally occluded and the rest of the LAD fills from the RCA. Diagonal OM branch has proximal 60% to 70%. 3.Left circumflex; moderate size with proximal 80% and then mid 90% stenosis. 4.RCA is approximately 80% stenosis and then patent stent. 5.LVEDP is normal borderline elevated to 12 mmHg. Conclusion: 1.Severe multivessel coronary artery disease with failed attempt PCI of the mid LAD FIRER LOCOMOTIVE. 2.Elevated LVEDP. Recommendation: Transfer for CABG evaluation. SR/MODL Voice ID: [id number] Report ID: [id number]
[2022-06-14 20:46] VITALS: O2SAT 95
[2022-06-14] MEDS ORDERED: INSULIN -REGULAR HUMAN 50 UNIT/0.5 ML ML SQ SCH (21:00)
--- NOTE | 2022-06-14 21:26 | P.SSS ---
Patient History Date of Service: 06/14/22 Reason for admission: CHEST PAIN History of Present Illness: ROJAS IS A DIABETIC WHO HAS NOT TAKEN CARE OF DM FOR LONG DURATION COMES WITH CHEST PAIN ABOUT FOUR TIMES AT REST WITH RADIATION TO L ARM. I CALLED DR. BOYER TO GET CATH DONE HISTORY IS VERY STRONG. SHE HAS SEVERE CORNOARY DISEASE AND WILL BE TRANSFERRED TO [facility] FOR CABG TONIGHT. Allergies niacin Allergy (Mild, Verified 06/13/22 23:59) Hives/Rash zolpidem tartrate [From Ambien] Allergy (Mild, Verified 06/13/22 23:59) Nausea/Vomiting TAPE Allergy (Mild, Uncoded 06/13/22 23:59) Rash Home medications list reviewed: Yes Home Medications: Melatonin [Melatonin*] 10 mg PO BEDTIME PRN 12/27/12 Paroxetine HCl [Paxil] 20 mg PO DAILY 12/27/12 Clopidogrel Bisulfate [Plavix*] 1 tab PO DAILY 04/27/22 Gabapentin 1 tab PO TID 04/27/22 Metoprolol Succinate [Toprol Xl*] 25 mg PO DAILY 04/27/22 Insulin 70/30 NPH/Reg Human [Novolin 70/30*] See Rx Instructions .ROUTE .COMPLEX 06/14/22 Losartan Potassium [Cozaar] 25 mg PO DAILY 06/14/22 hydroCHLOROthiazide [Hydrochlorothiazide] 12.5 mg PO DAILY 06/14/22 - Past Medical/Surgical History Has patient received pneumonia vaccine in the past: Yes Diabetic: Yes -: IDDM -: HTN -: CAD -: NON-HODGKINS LYMPHOMA -: DEPRESSION -: ANXIETY -: HYSTERECTOMY -: OPEN LAP -: BTL -: RIGHT BREAST LUMPECTOMY -: COLONOSCOPY -: LYMPH NODES REMVOVAL - Social History Smoking Status: Never smoker Alcohol use: No CD- Drugs: No Caffeine use: Yes Place of Residence: Home Review of Systems 10-point ROS is otherwise unremarkable Physical Examination - Vital Signs Temperature: 97.0 F Blood Pressure: 135/63 Pulse: 54 Respirations: 16 Pulse Ox (%): 97 - Physical Exam General: Oriented x3, Moderate distress, Obese HEENT: Atraumatic, PERRLA, Mucous membr. moist/pink, EOMI, Sclerae nonicteric Neck: Supple, 2+ carotid pulse no bruit, No LAD, Without JVD or thyroid abnormality Respiratory: Clear to auscultation bilaterally, Normal air movement Cardiovascular: Regular rate/rhythm, Normal S1 S2 Gastrointestinal: Normal bowel sounds, No tenderness Musculoskeletal: No tenderness Integumentary: No rashes Neurological: Normal gait, Normal speech, Normal strength at 5/5 x4 extr, Normal tone, Normal affect Lymphatics: No axilla or inguinal lymphadenopathy - Diagnosis (Problem(s)) (1) Chest pain Current Visit: No Status: Active Plan: CORONARY DISEASE CATH DONE. CABG SOON. TRANSFER TO [facility]. (2) Diabetes mellitus type 2 Current Visit: No Status: Active - Disposition Disposition: ROUTINE DISCHARGE
== END 2022-06-14 23:16 | disposition short-term general hospital (02) ==
LOC: ER 19:51 → ERHOLD 21:35 → 2ND 22:59
PROVIDERS: ADMIT Internal Medicine; ATTEND Internal Medicine
PROC: 4A023N7 Measurement of Cardiac Sampling and Pressure, Left Heart, Percutaneous Approach (ICD-10-PCS; principal; 2022-06-14)
PROC: B2011ZZ Plain Radiography of Multiple Coronary Arteries using Low Osmolar Contrast (ICD-10-PCS; 2022-06-14)
DX: I25.110 Atherosclerotic heart disease of native coronary artery with unstable angina pectoris (principal); E11.9 Type 2 diabetes mellitus without complications; I10 Essential (primary) hypertension; F41.9 Anxiety disorder, unspecified; F32.A Depression, unspecified; G62.9 Polyneuropathy, unspecified; I73.9 Peripheral vascular disease, unspecified; E78.5 Hyperlipidemia, unspecified; I25.2 Old myocardial infarction; Z20.822 Contact with and (suspected) exposure to COVID-19
CPT/HCPCS: 93005; 85025; 80048; 36415; 83735; 82550 ×2; 85610; 82947 ×5; 80076; 85347; 84484 ×3; 83880; 71045; 93458 ×2; 99285; 87811; C1893; Q9967; C1725; J1815 ×3; J1644; J2001; J2250; J3010; G0378 ×4; J7040; J0461

== ENCOUNTER 2022-10-06 01:57 | Emergency (ER) | payer OTHER ==
--- OUTSIDE RECORDS SUMMARY | 2022-10-06 02:07 | XMS REPORT | Continuity of Care Document ---
:[address] [facility] [place], [place] t Address [address] [place] [address] Care Team Providers Name Role Phone Pcp, Patient Does Not Have A Primary Care Physician [id number] Doctor Unassigned, [place] Attending Clinician Unavailable Monique Cheng Attending Clinician Unavailable Bang Patel Attending Clinician Unavailable LUX BARAJAS Attending Clinician Unavailable GEORGIA AHMADI Attending Clinician Unavailable [place] Murillo Attending Clinician ALICE MCGOVERN Admitting Clinician Unavailable Robert Ochoa Admitting Clinician Unavailable EDDOC, GENERIC FOR EDM Admitting Clinician Unavailable Payers Payer Name Policy Type Policy Number Effective Date Expiration Date S ource Problems Condition Condition Condition Status Onset Resolution Last Treating Co mments Source Name Details Category Date Date Treatment Clinician Date No known No known Disease Unive rs active active ity of problems problems [facility] Allergies, Adverse Reactions, Alerts Allergy Allergy Status Severity Reaction(s) Onset Inactive Treating Comm ents Source Name Type Date Date Clinician niacin DA Active MA ANXIETY 2022-0 [facility] 3-23 Clear 00:00: [place]ne 00 [facility] adhesive DA Active U RASH 2022-0 [facility] tape 3-23 Clear 00:00: [place] 00 [facility] zolpidem DA Active U CONFUSION 2022-0 [facility] 3-23 Clear 00:00: [place] 00 [facility] NO KNOWN Drug Active Univers ALLERGIE Class [facility] [place] [facility] Social History Social Habit Start Date Stop Date Quantity Comments Source Exposure to 2021-09-20 2021-09-30 Not sure [facility] SARS-CoV-2 (event) 00:00:00 18:06:00 Medica l Branch Sex Ass[birth year] At [birth year] [facility] 00:00:00 00:00:00 Medical Branch Smoking Status Start Date Stop Date Source Never smoked tobacco [facility] Medications Ordered Filled Start Stop Current Ordering Indication Dosage Frequency Signature Comments Components Source Medication Medication Date Date Medication? Clinician (SIG) Name Name HYDROcodone 2016-03 Yes 1{tbl} Take 1 Un stephen -acetaminop 1-06 tablet by ity of hen (NORCO) 00:00: mouth [place] 5-325 mg 00 every 6 Medical tablet (six) Branch hours as needed for Pain (scale 7-10). HYDROcodone 2016-03 Yes 1{tbl} Take 1 Un stephen -acetaminop 1-06 tablet by ity of hen (NORCO) 00:00: mouth [place] 5-325 mg 00 every 6 Medical tablet (six) Branch hours as needed for Pain (scale 7-10). HYDROcodone 2016-03 Yes 1{tbl} Take 1 Un stephen -acetaminop 1-06 tablet by ity of hen (NORCO) 00:00: mouth [place] 5-325 mg 00 every 6 Medical tablet (six) Branch hours as needed for Pain (scale 7-10). gabapentin 2015- Yes 600mg Take 600 Un stephen (NEURONTIN) 7-30 mg by ity of 600 mg 14:24: mouth 3 [place] tablet 07 (three) Medical times Branch daily. traZODONE 2016- Yes 100mg Take 100 Uni vers (DESYREL) [...] ity o f mg tablet 14:24: daily. [address] Branch insulin 2016-0 Yes inject Univers 70/30 [...] mouth ity of XL (TOPROL 14:24: daily. [place] XL) 25 mg 07 Medical 24 hr Branch tablet doxycycline 2016-0 Yes 100mg Take 100 U nivers (MONODOX) 7-30 mg by ity of 100 mg 14:24: mouth 2 [place] capsule 07 (two) Medical times Branch daily. paroxetine 2016-0 Yes 40mg Take 40 mg U nivers (PAXIL) 40 7-30 by mouth ity o f mg tablet 14:24: daily. [address] Branch insulin 2016-0 Yes inject Univers 70/30 [...] mouth ity of XL (TOPROL 14:24: daily. [place] XL) 25 mg 07 Medical 24 hr Branch tablet doxycycline 2016-0 Yes 100mg Take 100 U nivers (MONODOX) 7-30 mg by ity of 100 mg 14:24: mouth 2 [place] capsule 07 (two) Medical times Branch daily. paroxetine Yes 40mg Take 40 mg U nivers (PAXIL) 40 7-30 by mouth ity o f mg tablet 14:24: daily. [address] Branch insulin 2015- Yes inject Univers 70/30 7-30 under the [...] mouth ity of mg tablet 14:24: daily. [address] Branch losartan-hy Yes 1{tbl} Take 1 Un stephen drochloroth 7-30 tablet by ity of iazide 14:24: mouth [place] (HYZAAR) 06 daily. Medical 100-12.5 mg Branch per tablet clopidogrel Yes 75mg Take 75 mg Univers (PLAVIX) 75 7-30 by mouth ity of mg tablet 14:24: daily. [address] Branch losartan-hy Yes 1{tbl} Take 1 Un stephen drochloroth 7-30 tablet by ity of iazide 14:24: mouth [place] (HYZAAR) 06 daily. Medical 100-12.5 mg Branch per tablet clopidogrel Yes 75mg Take 75 mg Univers (PLAVIX) 75 7-30 by mouth ity of mg tablet 14:24: daily. [address] Branch ranitidine Yes 150mg Take 1 Univ ers (ZANTAC) 7-30 tablet by ity of 150 mg 00:00: mouth 2 [place] tablet 00 (two) Medical times Branch daily. ranitidine Yes 150mg Take 1 Univ ers (ZANTAC) 7-30 tablet by ity of 150 mg 00:00: mouth 2 [place] tablet 00 (two) Medical times Branch daily. ranitidine 0 Yes 150mg Take 1 Univ ers (ZANTAC) 7-30 tablet by ity of 150 mg 00:00: mouth 2 [place] tablet 00 (two) Medical times Branch daily. Vital Signs Vital Name Observation Time Observation Value Comments Source Systolic blood 2021-09-30 23:06:00 150 mm[Hg] Univer sity of pressure [facility] Diastolic blood 2021-09-30 23:06:00 59 mm[Hg] Unive rsity of [facility] Heart rate 2021-09-30 23:06:00 68 /min [facility] Respiratory rate 2021-09-30 23:06:00 18 /min [facility] ersity of [facility] Body height 2021-09-30 23:06:00 154.9 cm [facility] Body weight 2021-09-30 23:06:00 90.719 kg [facility] BMI 2021-09-30 23:06:00 37.79 kg/m2 [facility] Oxygen saturation in 2021-09-30 23:06:00 96 /min [facility] Arterial blood by [facility] Pulse oximetry Branch Procedures Procedure Date / Time Performed Performing Clinician [facility] e HOME HEALTH - OTHER 2022-08-04 05:01:00 Doctor Unassigned, No Un iversity of [place] Name [facility] [id number] 2022-07-13 00:00:00 BYRJO01 [facility] [id number] 2022-07-13 00:00:00 BYRJO01 [facility] [id number] 2022-07-13 00:00:00 BYRJO01 [facility] [id number] 2022-06-21 00:00:00 HONORIO [facility] [id number] 2022-06-16 00:00:00 CHAAB.01 [facility] [id number] 2022-06-16 00:00:00 CHAAB.01 [facility] [id number] 2022-06-16 00:00:00 CHAAB.01 [facility] [id number] 2022-06-16 00:00:00 CHAAB.01 [facility] [id number] 2022-06-16 00:00:00 CHAAB.01 [facility] [id number] 2022-06-16 00:00:00 CHAAB.01 [facility] XR FOOT 3+ VW RIGHT 2021-09-30 23:27:38 [place] Ahmadi [facility] Encounters Start End Encounter Admission Attending Care Care Encounter Source Date/Time Date/Time Type Type Clinicians Facility Department ID 2022-08-04 2022-08-04 Orders Doctor NATASHA [id number] Univers 00:00:00 00:00:00 Only Unassigned, GER[place] [id number] ity of [place] [facility] [id number] Carlos as [id number] [place] [address] Branch 2022-07-28 2022-07-28 Outpatient R [facility] [id number] Univers 00:00:00 00:00:00 itmaria e [facility] 2022-07-12 2022-07-17 Inpatient EM Prosper, [facility] MEDI.01 [id number] [facility] 20:24:00 18:15:00 Monique 03 [facility] 2022-06-15 2022-06-25 Inpatient EM Jorge, [facility] INTE.02 [id number] [facility] 05:52:00 12:54:00 Bang 16 [facility] 2021-10-07 2021-10-07 Outpatient R JENN [facility] [id number] Univers 11:15:00 11:15:00 LUX navarro [facility] 2021-10-07 2021-10-07 Outpatient R JENN [facility] [id number] Univers 10:30:00 10:30:00 LUX navarro [facility] 2021-09-30 2021-09-30 [facility] [id number] Univers 18:16:43 23:59:00 GE[place]IA kumari [facility] 2021-09-30 2021-09-30 [facility] [id number] Univers 18:16:43 23:59:00 Encounter [facility] [id number] [facility] [id number] Carlos as MELCHOR?BLEA [id number] Me marely [place] [address] [place] [address] MEDICAL OFFICE [facility] [address] [address] 2021-09-30 2021-09-30 Urgent [facility] [id number] Univers 18:00:00 18:34:09 Care [facility] [id number] i ty of [place] [id number] Carlos as MELCHOR?BLEA [phone] [place] marely [place] [address] [facility] OFFICE [facility] 2021-09-30 2021-09-30 Outpatient R [facility] [id number] Univers 18:00:00 18:00:00 [place] tonmaria e o f [facility] 2021-09-30 2021-09-30 Outpatient R [facility] [id number] Univers 17:00:00 17:00:00 [facility] 2020-03-05 2020-03-05 Outpatient R [facility] [id number] Univers 14:20:00 14:20:00 [facility] Results Test Description Test Time Test Comments Results Result Comments Source GLUCOSE BEDSIDE 2022-07-17 17:15:00 Test Item Value Reference Range Interpretation Comme nts GLUCOSE BEDSIDE (test code = 139 MG/DL 70-110 H Performed by certified 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[facility]) [facility] GLUCOSE [id number] 12:40:00 Test Item Value Reference Range Interpretation Comments GLUCOSE BEDSIDE (test 185 MG/DL 70-110 H Perfor med by certified code = GLUBED) 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[facility] GLUCOSE [id number] 10:55:00 Test Item Value Reference Range Interpretation Comments GLUCOSE BEDSIDE (test 277 MG/DL 70-110 H Perfor med by certified code = GLUBED) 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[facility] BASIC METABOLIC [id number] 08:41:00 Test Item Value Reference Range Interpretation Comments SODIUM (test code = 141 mEq/L 134-147 N NA) POTASSIUM (test code 4.0 mEq/L 3.4-5.0 N = K) CHLORIDE (test code 101 mEq/L 100-108 N = CL) CARBON DIOXIDE (test 35 mEq/l 21-33 H code = CO2) ANION GAP (test code 9 0-20 N = GAP) GLUCOSE (test code = 306 mg/dL 70-110 H GLU) BLOOD UREA NITROGEN 25 mg/dL 7-18 H (test code = BUN) GLOMERULAR 50.2 80-90 L The Glomerular FILTRATION RATE Filtration R ate is a (test code = GFR) calculated parameterbased on serum Creatinine, pat ient age and sex. GFR va luesless than 60 mL/min/ 1.73 square meters a re indicative ofCh ronic Kidney Disease. Values less than 15 mL/min/1.73squa re meters indicate Kidney failure. The calculation forGFR is based on the CKD-EPI (2020) calculat ion. This formulais race indifferent and is the recommended for lela for GFRby the Nat nal Kidney Foundati on for Adults.The GFR will not calculate if th e sex is unknown or if thepatient's ag e is <18 years. CREATININE (test 1.2 mg/dL 0.6-1.3 N code = CREAT) CALCIUM (test code = 9.4 mg/dL 8.0-10.5 N CA) CBC W/AUTO [id number] 08:26:00 Test Item Value Reference Range Interpretation Comments WHITE BLOOD CELL (test code = 6.5 x10 3/uL 4.5-11.0 N WBC) RED BLOOD CELL (test code = 3.74 x10 6/uL 3.54-5.02 N RBC) HEMOGLOBIN (test code = HGB) 11.6 g/dL 11.0-15.0 N HEMATOCRIT (test code = HCT) 36.9 % 33.0-45.0 N MEAN CELL VOLUME (test code = 98.7 fL 81.0-99.0 N MCV) MEAN CELL HGB (test code = MCH) 31.0 pg 27.0-33.0 N MEAN CELL HGB CONCETRATION 31.4 g/dL 33.0-37.0 L (test code = MCHC) RED CELL DISTRIBUTION WIDTH CV 16.7 % 11.5-14.5 H (test code = RDW) RED CELL DISTRIBUTION WIDTH SD 61.0 fL 37.0-54.0 H (test code = RDW-SD) PLATELET COUNT (test code = 228 x10 3/uL 150-400 N PLT) MEAN PLATELET VOLUME (test code 10.3 fL 7.0-9.0 H = MPV) NEUTROPHIL % (test code = NT%) 59.9 % 56.0-77.0 N IMMATURE GRANULOCYTE % (test 0.3 % 0.0-2.0 N code = IG%) LYMPHOCYTE % (test code = LY%) 26.6 % 14.0-32.0 N MONOCYTE % (test code = MO%) 8.5 % 4.8-9.0 N EOSINOPHIL % (test code = EO%) 4.2 % 0.3-3.7 H BASOPHIL % (test code = BA%) 0.5 % 0.0-2.0 N NUCLEATED RBC % (test code = 0.0 % 0-0 N NRBC%) NEUTROPHIL # (test code = NT#) 3.87 x10 3/uL 2.0-7.6 N IMMATURE GRANULOCYTE # (test 0.02 x10 3/uL 0.00-0.03 N code = IG#) LYMPHOCYTE # (test code = LY#) 1.72 x10 3/uL 1.0-3.8 N MONOCYTE # (test code = MO#) 0.55 x10 3/uL 0.1-0.8 N EOSINOPHIL # (test code = EO#) 0.27 x10 3/uL 0.0-0.2 H BASOPHIL # (test code = BA#) 0.03 x10 3/uL 0.0-0.2 N NUCLEATED RBC # (test code = 0.00 x10 3/uL 0.0-0.1 N NRBC#) MANUAL DIFF REQUIRED (test code NO = MDIFF) GLUCOSE [id number] 21:06:00 Test Item Value Reference Range Interpretation Comments GLUCOSE BEDSIDE (test 219 MG/DL 70-110 H Perfor med by certified code = GLUBED) 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[facility] GLUCOSE [id number] 16:32:00 Test Item Value Reference Range Interpretation Comments GLUCOSE BEDSIDE (test 159 MG/DL 70-110 H Perfor med by certified code = GLUBED) 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[facility] GLUCOSE [id number] 11:53:00 Test Item Value Reference Range Interpretation Comments GLUCOSE BEDSIDE (test 291 MG/DL 70-110 H Perfor med by certified code = GLUBED) 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[facility] GLUCOSE [id number] 08:29:00 Test Item Value Reference Range Interpretation Comments GLUCOSE BEDSIDE (test 200 MG/DL 70-110 H [facility] by certified code = GLUBED) 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[facility] BASIC METABOLIC [id number] 08:00:00 Test Item Value Reference Range Interpretation Comments SODIUM (test code = 141 mEq/L 134-147 N NA) POTASSIUM (test code 3.9 mEq/L 3.4-5.0 N = K) CHLORIDE (test code 101 mEq/L 100-108 N = CL) CARBON DIOXIDE (test 34 mEq/l 21-33 H code = CO2) ANION GAP (test code 10 0-20 N = GAP) GLUCOSE (test code = 183 mg/dL 70-110 H GLU) BLOOD UREA NITROGEN 20 mg/dL 7-18 H (test code = BUN) GLOMERULAR 50.2 80-90 L The Glomerular FILTRATION RATE Filtration R ate is a (test code = GFR) calculated parameterbased on serum Creatinine, pat ient age and sex. GFR va luesless than 60 mL/min/ 1.73 square meters a re indicative ofCh ronic Kidney Disease. Values less than 15 mL/min/1.73squa re meters indicate Kidney failure. The calculation forGFR is based on the CKD-EPI (2020) calculat ion. This formulais race indifferent and is the recommended for [facility] for GFRby the [facility] Kidney Foundati on for Adults.The GFR will not calculate if th e sex is unknown or if thepatient's ag e is <18 years. CREATININE (test 1.2 mg/dL 0.6-1.3 N code = CREAT) CALCIUM (test code = 9.4 mg/dL 8.0-10.5 N CA) CBC W/AUTO [id number] 07:53:00 Test Item Value Reference Range Interpretation Comments WHITE BLOOD CELL (test code = 8.0 x10 3/uL 4.5-11.0 N WBC) RED BLOOD CELL (test code = 3.92 x10 6/uL 3.54-5.02 N RBC) HEMOGLOBIN (test code = HGB) 11.8 g/dL 11.0-15.0 N HEMATOCRIT (test code = HCT) 38.0 % 33.0-45.0 N MEAN CELL VOLUME (test code = 96.9 fL 81.0-99.0 N MCV) MEAN CELL HGB (test code = MCH) 30.1 pg 27.0-33.0 N MEAN CELL HGB CONCETRATION 31.1 g/dL 33.0-37.0 L (test code = MCHC) RED CELL DISTRIBUTION WIDTH CV 16.9 % 11.5-14.5 H (test code = RDW) RED CELL DISTRIBUTION WIDTH SD 59.7 fL 37.0-54.0 H (test code = RDW-SD) PLATELET COUNT (test code = 250 x10 3/uL 150-400 N PLT) MEAN PLATELET VOLUME (test code 10.5 fL 7.0-9.0 H = MPV) NEUTROPHIL % (test code = NT%) 56.3 % 56.0-77.0 N IMMATURE GRANULOCYTE % (test 0.3 % 0.0-2.0 N code = IG%) LYMPHOCYTE % (test code = LY%) 30.0 % 14.0-32.0 N MONOCYTE % (test code = MO%) 7.8 % 4.8-9.0 N EOSINOPHIL % (test code = EO%) 5.2 % 0.3-3.7 H BASOPHIL % (test code = BA%) 0.4 % 0.0-2.0 N NUCLEATED RBC % (test code = 0.0 % 0-0 N NRBC%) NEUTROPHIL # (test code = NT#) 4.49 x10 3/uL 2.0-7.6 N IMMATURE GRANULOCYTE # (test 0.02 x10 3/uL 0.00-0.03 N code = IG#) LYMPHOCYTE # (test code = LY#) 2.39 x10 3/uL 1.0-3.8 N MONOCYTE # (test code = MO#) 0.62 x10 3/uL 0.1-0.8 N EOSINOPHIL # (test code = EO#) 0.41 x10 3/uL 0.0-0.2 H BASOPHIL # (test code = BA#) 0.03 x10 3/uL 0.0-0.2 N NUCLEATED RBC # (test code = 0.00 x10 3/uL 0.0-0.1 N NRBC#) MANUAL DIFF REQUIRED (test code NO = MDIFF) C REACTIVE [id number] 07:50:00 Test Item Value Reference Range Interpretation Comments C REACTIVE PROTEIN (test code = 18.0 mg/L <10.0 H CRP) GLUCOSE [id number] 22:00:00 Test Item Value Reference Range Interpretation Comments GLUCOSE BEDSIDE (test 143 MG/DL 70-110 H Perfor med by certified code = GLUBED) 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[facility] GLUCOSE [id number] 16:27:00 Test Item Value Reference Range Interpretation Comments GLUCOSE BEDSIDE (test 95 MG/DL 70-110 N Perfor med by certified code = GLUBED) 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[facility] B-TYPE NATRIURETIC [id number] 12:05:00 Test Item Value Reference Range Interpretation Comments B-TYPE NATRIURETIC PEPTIDE (test 239.0 PG/ML 0-100 H code = BNP) GLUCOSE [id number] 11:07:00 Test Item Value Reference Range Interpretation Comments GLUCOSE BEDSIDE (test 188 MG/DL 70-110 H Perfor med by certified code = GLUBED) 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[facility] CBC W/AUTO [id number] 08:26:00 Test Item Value Reference Range Interpretation Comments WHITE BLOOD CELL (test code = 6.6 x10 3/uL 4.5-11.0 N WBC) RED BLOOD CELL (test code = 3.60 x10 6/uL 3.54-5.02 N RBC) HEMOGLOBIN (test code = HGB) 11.2 g/dL 11.0-15.0 N HEMATOCRIT (test code = HCT) 34.7 % 33.0-45.0 N MEAN CELL VOLUME (test code = 96.4 fL 81.0-99.0 N MCV) MEAN CELL HGB (test code = MCH) 31.1 pg 27.0-33.0 N MEAN CELL HGB CONCETRATION 32.3 g/dL 33.0-37.0 L (test code = MCHC) RED CELL DISTRIBUTION WIDTH CV 17.3 % 11.5-14.5 H (test code = RDW) RED CELL DISTRIBUTION WIDTH SD 60.7 fL 37.0-54.0 H (test code = RDW-SD) PLATELET COUNT (test code = 207 x10 3/uL 150-400 N PLT) MEAN PLATELET VOLUME (test code 10.1 fL 7.0-9.0 H = MPV) NEUTROPHIL % (test code = NT%) 51.9 % 56.0-77.0 L IMMATURE GRANULOCYTE % (test 0.2 % 0.0-2.0 N code = IG%) LYMPHOCYTE % (test code = LY%) 32.8 % 14.0-32.0 H MONOCYTE % (test code = MO%) 8.1 % 4.8-9.0 N EOSINOPHIL % (test code = EO%) 6.4 % 0.3-3.7 H BASOPHIL % (test code = BA%) 0.6 % 0.0-2.0 N NUCLEATED RBC % (test code = 0.0 % 0-0 N NRBC%) NEUTROPHIL # (test code = NT#) 3.41 x10 3/uL 2.0-7.6 N IMMATURE GRANULOCYTE # (test 0.01 x10 3/uL 0.00-0.03 N code = IG#) LYMPHOCYTE # (test code = LY#) 2.15 x10 3/uL 1.0-3.8 N MONOCYTE # (test code = MO#) 0.53 x10 3/uL 0.1-0.8 N EOSINOPHIL # (test code = EO#) 0.42 x10 3/uL 0.0-0.2 H BASOPHIL # (test code = BA#) 0.04 x10 3/uL 0.0-0.2 N NUCLEATED RBC # (test code = 0.00 x10 3/uL 0.0-0.1 N NRBC#) MANUAL DIFF REQUIRED (test code NO = MDIFF) GLUCOSE [id number] 07:59:00 Test Item Value Reference Range Interpretation Comments GLUCOSE BEDSIDE (test 132 MG/DL 70-110 H [facility] med by certified code = GLUBED) 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[facility] BASIC METABOLIC [id number] 07:33:00 Test Item Value Reference Range Interpretation Comments SODIUM (test code = 144 mEq/L 134-147 N NA) POTASSIUM (test code 3.8 mEq/L 3.4-5.0 N = K) CHLORIDE (test code 107 mEq/L 100-108 N = CL) CARBON DIOXIDE (test 30 mEq/l 21-33 N code = CO2) ANION GAP (test code 11 0-20 N = GAP) GLUCOSE (test code = 120 mg/dL 70-110 H GLU) BLOOD UREA NITROGEN 12 mg/dL 7-18 N (test code = BUN) GLOMERULAR 55.8 80-90 L The Glomerular FILTRATION RATE Filtration R ate is a (test code = GFR) calculated parameterbased on serum Creatinine, pat ient age and sex. GFR va luesless than 60 mL/min/ 1.73 square meters a re indicative ofCh ronic Kidney Disease. Values less than 15 mL/min/1.73squa re meters indicate Kidney failure. The calculation forGFR is based on the CKD-EPI (2020) calculat ion. This formulais race indifferent and is the recommended for lela for GFRby the Natio nal Kidney Foundati on for Adults.The GFR will not calculate if th e sex is unknown or if thepatient's ag e is <18 years. CREATININE (test 1.1 mg/dL 0.6-1.3 N code = CREAT) CALCIUM (test code = 9.5 mg/dL 8.0-10.5 N CA) GLUCOSE [id number] 20:53:00 Test Item Value Reference Range Interpretation Comments GLUCOSE BEDSIDE (test 156 MG/DL 70-110 H Perfor med by certified code = GLUBED) 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[facility] VANCOMYCIN [id number] 17:43:00 Test Item Value Reference Range Interpretation Comments VANCOMYCIN TROUGH 10.7 mcg/mL 10.0-20.0 N 10-15 mcg/ mL - (test code = VANCT) Cellulit is, Urinary Tract Infection . 15-20 mcg/mL - Bacteremia, Infective Endocarditis, Meningitis, Osteomyelitis, Pneumonia, Georgie re Skin/Soft-Tissu e Infection, Spin al Abscess. GLUCOSE [id number] 16:32:00 Test Item Value Reference Range Interpretation Comments GLUCOSE BEDSIDE (test 132 MG/DL 70-110 H Perfor med by certified code = GLUBED) 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[facility] GLUCOSE [id number] 11:57:00 Test Item Value Reference Range Interpretation Comments GLUCOSE BEDSIDE (test 156 MG/DL 70-110 H Perfor med by certified code = GLUBED) 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[facility] GLUCOSE [id number] 07:49:00 Test Item Value Reference Range Interpretation Comments GLUCOSE BEDSIDE (test 156 MG/DL 70-110 H Perfor med by certified code = GLUBED) 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[facility] CBC W/AUTO [id number] 07:25:00 Test Item Value Reference Range Interpretation Comments WHITE BLOOD CELL (test code = 6.6 x10 3/uL 4.5-11.0 N WBC) RED BLOOD CELL (test code = 3.48 x10 6/uL 3.54-5.02 L RBC) HEMOGLOBIN (test code = HGB) 10.6 g/dL 11.0-15.0 L HEMATOCRIT (test code = HCT) 33.8 % 33.0-45.0 N MEAN CELL VOLUME (test code = 97.1 fL 81.0-99.0 N MCV) MEAN CELL HGB (test code = MCH) 30.5 pg 27.0-33.0 N MEAN CELL HGB CONCETRATION 31.4 g/dL 33.0-37.0 L (test code = MCHC) RED CELL DISTRIBUTION WIDTH CV 17.3 % 11.5-14.5 H (test code = RDW) RED CELL DISTRIBUTION WIDTH SD 62.3 fL 37.0-54.0 H (test code = RDW-SD) PLATELET COUNT (test code = 190 x10 3/uL 150-400 N PLT) MEAN PLATELET VOLUME (test code 10.1 fL 7.0-9.0 H = MPV) NEUTROPHIL % (test code = NT%) 58.2 % 56.0-77.0 N IMMATURE GRANULOCYTE % (test 0.3 % 0.0-2.0 N code = IG%) LYMPHOCYTE % (test code = LY%) 25.0 % 14.0-32.0 N MONOCYTE % (test code = MO%) 8.6 % 4.8-9.0 N EOSINOPHIL % (test code = EO%) 7.3 % 0.3-3.7 H BASOPHIL % (test code = BA%) 0.6 % 0.0-2.0 N NUCLEATED RBC % (test code = 0.0 % 0-0 N NRBC%) NEUTROPHIL # (test code = NT#) 3.84 x10 3/uL 2.0-7.6 N IMMATURE GRANULOCYTE # (test 0.02 x10 3/uL 0.00-0.03 N code = IG#) LYMPHOCYTE # (test code = LY#) 1.65 x10 3/uL 1.0-3.8 N MONOCYTE # (test code = MO#) 0.57 x10 3/uL 0.1-0.8 N EOSINOPHIL # (test code = EO#) 0.48 x10 3/uL 0.0-0.2 H BASOPHIL # (test code = BA#) 0.04 x10 3/uL 0.0-0.2 N NUCLEATED RBC # (test code = 0.00 x10 3/uL 0.0-0.1 N NRBC#) MANUAL DIFF REQUIRED (test code NO = MDIFF) GLUCOSE [id number] 21:04:00 Test Item Value Reference Range Interpretation Comments GLUCOSE BEDSIDE (test 166 MG/DL 70-110 H Perfor med by certified code = GLUBED) 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[facility] GLUCOSE [id number] 16:45:00 Test Item Value Reference Range Interpretation Comments GLUCOSE BEDSIDE (test 263 MG/DL 70-110 H Perfor med by certified code = GLUBED) 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[facility] GLUCOSE [id number] 12:21:00 Test Item Value Reference Range Interpretation Comments GLUCOSE BEDSIDE (test 236 MG/DL 70-110 H Perfor med by certified code = GLUBED) 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[facility] CBC W/AUTO [id number] 08:19:00 Test Item Value Reference Range Interpretation Comments WHITE BLOOD CELL (test code = 6.7 x10 3/uL 4.5-11.0 N WBC) RED BLOOD CELL (test code = 3.22 x10 6/uL 3.54-5.02 L RBC) HEMOGLOBIN (test code = HGB) 9.9 g/dL 11.0-15.0 L HEMATOCRIT (test code = HCT) 32.0 % 33.0-45.0 L MEAN CELL VOLUME (test code = 99.4 fL 81.0-99.0 H MCV) MEAN CELL HGB (test code = MCH) 30.7 pg 27.0-33.0 N MEAN CELL HGB CONCETRATION 30.9 g/dL 33.0-37.0 L (test code = MCHC) RED CELL DISTRIBUTION WIDTH CV 17.5 % 11.5-14.5 H (test code = RDW) RED CELL DISTRIBUTION WIDTH SD 65.0 fL 37.0-54.0 H (test code = RDW-SD) PLATELET COUNT (test code = 184 x10 3/uL 150-400 N PLT) MEAN PLATELET VOLUME (test code 10.3 fL 7.0-9.0 H = MPV) NEUTROPHIL % (test code = NT%) 50.1 % 56.0-77.0 L IMMATURE GRANULOCYTE % (test 0.1 % 0.0-2.0 N code = IG%) LYMPHOCYTE % (test code = LY%) 35.8 % 14.0-32.0 H MONOCYTE % (test code = MO%) 8.2 % 4.8-9.0 N EOSINOPHIL % (test code = EO%) 5.4 % 0.3-3.7 H BASOPHIL % (test code = BA%) 0.4 % 0.0-2.0 N NUCLEATED RBC % (test code = 0.0 % 0-0 N NRBC%) NEUTROPHIL # (test code = NT#) 3.36 x10 3/uL 2.0-7.6 N IMMATURE GRANULOCYTE # (test 0.01 x10 3/uL 0.00-0.03 N code = IG#) LYMPHOCYTE # (test code = LY#) 2.40 x10 3/uL 1.0-3.8 N MONOCYTE # (test code = MO#) 0.55 x10 3/uL 0.1-0.8 N EOSINOPHIL # (test code = EO#) 0.36 x10 3/uL 0.0-0.2 H BASOPHIL # (test code = BA#) 0.03 x10 3/uL 0.0-0.2 N NUCLEATED RBC # (test code = 0.00 x10 3/uL 0.0-0.1 N NRBC#) MANUAL DIFF REQUIRED (test code NO = MDIFF) GLUCOSE [id number] 07:59:00 Test Item Value Reference Range Interpretation Comments GLUCOSE BEDSIDE (test 180 MG/DL 70-110 H Perfor med by certified code = GLUBED) 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[facility] COMPREHENSIVE METABOLIC [id number] 07:41:00 Test Item Value Reference Range Interpretation Comments SODIUM (test code = 143 mEq/L 134-147 N NA) POTASSIUM (test code 4.3 mEq/L 3.4-5.0 N = K) CHLORIDE (test code 108 mEq/L 100-108 N = CL) CARBON DIOXIDE (test 30 mEq/l 21-33 N code = CO2) ANION GAP (test code 10 0-20 N = GAP) GLUCOSE (test code = 185 mg/dL 70-110 H GLU) BLOOD UREA NITROGEN 18 mg/dL 7-18 N (test code = BUN) GLOMERULAR 55.8 80-90 L The Glomerular FILTRATION RATE Filtration R ate is a (test code = GFR) calculated parameterbased on serum Creatinin e, patient age and sex. GFR valuesless than 60 mL/min/1.73 squ are meters are priscila cative ofChronic Kidne y Disease. Values less than 15 mL/min/1.73squa re meters indicate Kidney failure. The calculation for GFR is based on the CK D-EPI (2020) calculat ion. This formulais race indifferent and is the recommended for lela for [facility]by the [facility] for Ad[facility].The GFR will not calculate i f the sex is unknown or if thepatient's ag e is <18 years. CREATININE (test 1.1 mg/dL 0.6-1.3 N code = CREAT) TOTAL PROTEIN (test 5.9 g/dL 6.4-8.2 L code = PROT) ALBUMIN (test code = 3.10 g/dL 3.4-5.0 L ALB) CALCIUM (test code = 8.6 mg/dL 8.0-10.5 N CA) BILIRUBIN TOTAL 0.90 mg/dL 0.0-1.0 N (test code = BILT) SGOT/AST (test code 20 IUnit/L 15-37 N = AST) SGPT/ALT (test code 23 IUnit/L 30-65 L = ALT) ALKALINE PHOSPHATASE 139 IUnit/L 20-125 H TOTAL (test code = ALKP) LIPID PROFILE (CORONARY RISK)2022-07-13 07:41:00 Test Item Value Reference Range Interpretation Comments TRIGLYCERIDES (test 114 mg/dL 40-150 N code = TRIG) CHOLESTEROL (test 74 mg/dL <200 code = CHOL) CHOLESTEROL/HDL 3.05 RATIO 3.27-4.44 L RISK ASSOCIA RADHA WITH RATIO (test code = CHOL/HDL RATIOS: RISK CHOLHDL) MALE FEMALE1/2 AVERAGE 3.43 3.27AVERAG E 4.97 4.442X AVERAGE 9.55 7.053X AVERAGE 23.39 11.04 NOTE THAT THE REFERENCE VALUE IS RELATEDTO RISK LEVELS RECOMMENDED BY THE NATL.HEART, KAUR G, AND BLOOD INST. HDL CHOLESTEROL 24.3 mg/dL 39-96 L (test code = HDL) LIPOPROTEIN LDL 33.0 mg/dL 0-100 N <100 OPTIMAL 100-129 (test code = LDL) NEAR OPTIM AL/ABOVE [id number] 89 HIGH>EN=711 JARETT Y HIGH*Guidelines provided by the National Choles terol EducationProgra m Adult Treatment Panel III [id number] 07:41:00 Test Item Value Reference Range Interpretation Comments PHOSPHOROUS (test code = PHOS) 4.2 MG/DL 2.5-4.9 N [id number] 07:41:00 Test Item Value Reference Range Interpretation Comments MAGNESIUM (test code = MAG) 1.63 mg/dL 1.80-2.40 L LACTIC ACID [id number] 05:13:00 Test Item Value Reference Range Interpretation Comments LACTIC ACID REPEAT (test code = 1.1 mmol/l 0.4-1.9 N LACTR) GLUCOSE [id number] 21:38:00 Test Item Value Reference Range Interpretation Comments GLUCOSE BEDSIDE (test 247 MG/DL 70-110 H Perfor med by certified code = GLUBED) 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[facility] UA RFLX MICR CULT IF [id number] 17:52:00 Test Item Value Reference Range Interpretation Comments UA COLOR (test code = COLU) DARK YELLOW YEL/STRAW UA APPEARANCE (test code = HAZY CLEAR A APPU) UA GLUCOSE DIPSTICK (test code NEGATIVE NEGATIVE = DGLUU) UA BILIRUBIN DIPSTICK (test NEGATIVE NEGATIVE code = BILU) UA KETONE DIPSTICK (test code NEGATIVE NEGATIVE = KETU) UA SPECIFIC GRAVITY (test code 1.025 1.005-1.030 N = SGU) UA BLOOD DIPSTICK (test code = NEGATIVE NEGATIVE HEATHER) UA PH DIPSTICK (test code = 6.0 5.0-7.0 N FRANKI) UA PROTEIN DIPSTICK (test code 1+ NEGATIVE A = PROU) UA UROBILINIOGEN DIPSTICK 4.0 mg/dL 0.2-1.0 A (test code = URO) UA NITRITE DIPSTICK (test code NEGATIVE NEGATIVE = KHUSHBU) UA LEUKOCYTE ESTERASE DIPSTICK 1+ NEGATIVE A (test code = LEUU) UA WBC (test code = WBCU) 21-50 WBC/HPF 0-3 A UA RBC (test code = RBCU) 0-3 RBC/HPF 0-3 UA WBC NO REFLEX (test code = 21-50 WBC/HPF 0-3 A WBCUCL) UA BACTERIA (test code = BACU) NONE SEEN /HPF NONE SEEN UA SQUAMOUS CELLS (test code = 6-10 /HPF NONE SEEN A SQU) UA CALCIUM OXALATE CRYSTALS 3+ /HPF NONE SEEN A (test code = CAOXU) Indication for culture: RiskForSepsis-no oth srcSpecimen Description: CLEAN CATCHBASIC METABOLIC [id number] 17:52:00 Test Item Value Reference Range Interpretation Comments SODIUM (test code = 142 mEq/L 134-147 N NA) POTASSIUM (test code 4.1 mEq/L 3.4-5.0 N = K) CHLORIDE (test code 107 mEq/L 100-108 N = CL) CARBON DIOXIDE (test 29 mEq/l 21-33 N code = CO2) ANION GAP (test code 10 0-20 N = GAP) GLUCOSE (test code = 246 mg/dL 70-110 H GLU) BLOOD UREA NITROGEN 19 mg/dL 7-18 H (test code = BUN) GLOMERULAR 55.8 80-90 L The Glomerular FILTRATION RATE Filtration R ate is a (test code = GFR) calculated parameterbased on serum Creatinine, pat ient age and sex. GFR va luesless than 60 mL/min/ 1.73 square meters a re indicative ofCh ronic Kidney Disease. Values less than 15 mL/min/1.73squa re meters indicate Kidney failure. The calculation forGFR is based on the CKD-EPI (2020) calculat ion. This formulais race indifferent and is the recommended for lela for GFRby the [facility] on for Adults.The GFR will not calculate if th e sex is unknown or if thepatient's ag e is <18 years. CREATININE (test 1.1 mg/dL 0.6-1.3 N code = CREAT) CALCIUM (test code = 9.2 mg/dL 8.0-10.5 N CA) HEPATIC FUNCTION [id number] 17:52:00 Test Item Value Reference Range Interpretation Comments TOTAL PROTEIN (test code = PROT) 6.4 g/dL 6.4-8.2 N ALBUMIN (test code = ALB) 3.40 g/dL 3.4-5.0 N BILIRUBIN TOTAL (test code = 1.10 mg/dL 0.0-1.0 H BILT) BILIRUBIN DIRECT (test code = 0.50 MG/DL 0.0-0.30 H BILD) BILIRUBIN INDIRECT (test code = 0.60 MG/DL BILIND) SGOT/AST (test code = AST) 19 IUnit/L 15-37 N SGPT/ALT (test code = ALT) 21 IUnit/L 30-65 L ALKALINE PHOSPHATASE TOTAL (test 146 IUnit/L 20-125 H code = ALKP) TROP-I HIGH [id number] 17:52:00 Test Item Value Reference Range Interpretation Comments TROP-I HIGH 19 ng/L 0-34 N CAUTION: Units of the SENSITIVITY (test current te st methodology code = TROPIHS) (ng/L) diffe rfrom the prior test methodolog y (ng/mL) by a factor of 1000. 99th Percentile Upper Reference Limit (URL): Females: 34 ng/LMales: 54 n g/L In order to distinguish acute elevations of h igh sensitivitytrop onin from other clinical conditions, the FourthUnive rsal Definition of M yocardial Infarction stre ssesclinical assessment and the demonstration o f a rise and/orfall in s erial troponin result s above the URL. These resu lts were obtained using Siemens Atellica IM TnI Hreagent. Results from di fferent methodologies s hould not becompared to o ne another as quantitative results and URLs mayvary by method. LACTIC [id number] 17:46:00 Test Item Value Reference Range Interpretation Comments LACTIC ACID (test code = LACT) 2.4 mmol/L 0.4-1.9 H CBC W/AUTO [id number] 17:42:00 Test Item Value Reference Range Interpretation Comments WHITE BLOOD CELL (test code = 7.5 x10 3/uL 4.5-11.0 N WBC) RED BLOOD CELL (test code = 3.50 x10 6/uL 3.54-5.02 L RBC) HEMOGLOBIN (test code = HGB) 11.1 g/dL 11.0-15.0 N HEMATOCRIT (test code = HCT) 34.4 % 33.0-45.0 N MEAN CELL VOLUME (test code = 98.3 fL 81.0-99.0 N MCV) MEAN CELL HGB (test code = MCH) 31.7 pg 27.0-33.0 N MEAN CELL HGB CONCETRATION 32.3 g/dL 33.0-37.0 L (test code = MCHC) RED CELL DISTRIBUTION WIDTH CV 17.8 % 11.5-14.5 H (test code = RDW) RED CELL DISTRIBUTION WIDTH SD 63.8 fL 37.0-54.0 H (test code = RDW-SD) PLATELET COUNT (test code = 219 x10 3/uL 150-400 N PLT) MEAN PLATELET VOLUME (test code 9.6 fL 7.0-9.0 H = MPV) NEUTROPHIL % (test code = NT%) 55.7 % 56.0-77.0 L IMMATURE GRANULOCYTE % (test 0.3 % 0.0-2.0 N code = IG%) LYMPHOCYTE % (test code = LY%) 31.7 % 14.0-32.0 N MONOCYTE % (test code = MO%) 6.6 % 4.8-9.0 N EOSINOPHIL % (test code = EO%) 5.2 % 0.3-3.7 H BASOPHIL % (test code = BA%) 0.5 % 0.0-2.0 N NUCLEATED RBC % (test code = 0.0 % 0-0 N NRBC%) NEUTROPHIL # (test code = NT#) 4.15 x10 3/uL 2.0-7.6 N IMMATURE GRANULOCYTE # (test 0.02 x10 3/uL 0.00-0.03 N code = IG#) LYMPHOCYTE # (test code = LY#) 2.36 x10 3/uL 1.0-3.8 N MONOCYTE # (test code = MO#) 0.49 x10 3/uL 0.1-0.8 N EOSINOPHIL # (test code = EO#) 0.39 x10 3/uL 0.0-0.2 H BASOPHIL # (test code = BA#) 0.04 x10 3/uL 0.0-0.2 N NUCLEATED RBC # (test code = 0.00 x10 3/uL 0.0-0.1 N NRBC#) MANUAL DIFF REQUIRED (test code NO = MDIFF) - CT CHEST [id number] 00:00:00 [facility] : 1955 Sex: F Name:KALA TURPIN [facility] : 1955 Age/S: 67 / F [address] [place] [address] Unit #: [id number] Loc: [place] [address] Phys: Holden Montoya [facility] Acct: [id number] Dis Date: Status: [facility] ER PHONE #: [phone] Exam Date: 07/12/2022 1847 FAX #: [phone] Reason: concern for abscess/ post-CABG EXAMS: CPT CODE: [id number] CT CHEST W/CONTRAST 07625 PROCEDURE INFORMATION: Exam: CT Chest With Contrast; Diagnostic Exam date and time: 07/12/2022 6:45 PM Age: 67 years old Clinical indication: Other: S/P cabg, drainage from incision site; Additional info: Concern for abscess/ post-cabg TECHNIQUE: Imaging protocol: Diagnostic computed tomography of the chest with contrast. Radiation optimization: All CT scans at this facility use at least one of these dose optimization techniques: automated exposure control; mA and/or kV adjustment per patient size (includes targeted exams where dose is matched to clinical indication); or iterative reconstruction. Contrast material: ISOVUE 300; Contrast volume:100 ml; Contrast route: INTRAVENOUS (IV); REPORTING DATA: Count of CT and Cardiac NM exams in prior 12 months: This patient has received [address] and 0 known cardiac nuclear medicine studies in the 12 months prior to the current study. COMPARISON: CT CHEST W/O CONTRAST 06/15/2022 8:13 AM FINDINGS: Lungs: Left lung base atelectasis. No consolidation. No masses. Pleural spaces: No pneumothorax. Small left pleural effusion.. Heart: Post midline sternotomy. No cardiomegaly. No pericardial effusion. Lymph nodes: Unremarkable. No enlarged lymph nodes. Vasculature: Unremarkable. No aortic aneurysm. Liver: No acute abnormality. Bones/joints: Unremarkable. No acute fracture. Soft tissues: Open midline ster notomy wound at the skin surface. No organized subcutaneous fluid collection/abscess. Trace, unorganized substernal fluid. IMPRESSION: 1. Open midline sternotomy wound at the skin surface. There is noorganized subcutaneous fluid collection/abscess given history. 2. Minimal substernal fluid is unorgan ized and likely postoperative. 3. Small left pleural effusion with left lung base atelectasis. at 2007 Reported and signed by: Franklin Lang M.D. PAGE 1 Signed Report (CONTINUED) Name: KALA TURPIN [facility] : 1955 Age/S: 67 / F [address] [place] [address] Unit #: [id number] Loc: [place] [address] Phys: Holden Montoya Acct: [id number] Dis Date: Status: REG ER PHONE #: [phone] Exam Date: 07/12/2022 1847 FAX #: [phone] Reason: concern for abscess/ post-CABG EXAMS: CPT CODE: [id number] CT CHESTW/CONTRAST 26819 (Continued) CC: Natasha Morrissey MD; Holden Montoya Technologist:Dolly Aguilar RT(R)(CT) CTDI: DLP: Trnscb Date/Time: 07/12/2022 (2007) Shahida Orig Print D/T: S: 07/12/2022 (2008) PAGE 2 Signed Report- XR CHEST 1 [id number] 00:00:00 [facility] : 1955 Sex: F FAX:Holden Cuello [phone] [place]: St: REG Name: PAPIKALA TEE [facility] : 1955 Age/S: 67/F [address] [place] [address] Unit #: [id number] Loc: [place] [address] Phys: Holden Montoya [facility] Acct: [id number] Dis Date: Status: REG ER PHONE #: [phone] Exam Date: 07/12/20221709 FAX #: [phone] Reason: medical clearnce EXAMS: CPT CODE: [id number] XR CHEST 1 V 15618 PROCEDURE INFORMATION:Exam: XR Chest Exam date and time: 07/12/2022 5:05 PM Age: 67 years old Clinical indication: Screening exam; Other screening; Additional info: Medical clearnce TECHNIQUE: Imaging protocol: Radiologic exam of the chest. Views: 1 view. COMPARISON: CR XR CHEST 1V 06/25/2022 7:52 AM FINDINGS: Lungs: There isopacity at the left lung base. Pleural spaces: Small left pleural effusion. No pneumothorax. Heart/Mediastinum: Heart size is within normal limits. Previous midline sternotomy. Bones/joints: Unremarkable. IMPRESSION: Opacity at the left lung base with a small left pleural effusion. at 1751 Reported and signed by: Micky Mendez M.D. 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[facility] GLUCOSE [id number] 07:38:00 Test Item Value Reference Range Interpretation Comments GLUCOSE BEDSIDE (test 160 MG/DL 70-110 H Perfor med by certified code = GLUBED) 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[facility] BASIC METABOLIC [id number] 05:13:00 Test Item Value Reference Range Interpretation Comments SODIUM (test code = 143 mEq/L 134-147 N NA) POTASSIUM (test code 4.4 mEq/L 3.4-5.0 N = K) CHLORIDE (test code 108 mEq/L 100-108 N = CL) CARBON DIOXIDE (test 29 mEq/l 21-33 N code = CO2) ANION GAP (test code 10 0-20 N = GAP) GLUCOSE (test code = 158 mg/dL 70-110 H GLU) BLOOD UREA NITROGEN 19 mg/dL 7-18 H (test code = BUN) GLOMERULAR 62.5 80-90 L The Glomerular FILTRATION RATE Filtration R ate is a (test code = GFR) calculated parameterbased on serum Creatinine, pat ient age and sex. GFR va luesless than 60 mL/min/ 1.73 square meters a re indicative ofCh ronic Kidney Disease. Values less than 15 mL/min/1.73squa re meters indicate Kidney failure. The calculation forGFR is based on the CKD-EPI (2020) calculat ion. This formulais race indifferent and is the recommended for lela for GFRby the [facility] Kidney Foundati on for Adults.The GFR will not calculate if th e sex is unknown or if thepatient's ag e is <18 years. CREATININE (test 1.0 mg/dL 0.6-1.3 N code = CREAT) CALCIUM (test code = 9.0 mg/dL 8.0-10.5 N CA) [id number] 05:13:00 Test Item Value Reference Range Interpretation Comments MAGNESIUM (test code = MAG) 2.05 mg/dL 1.80-2.40 N CBC W/AUTO [id number] 04:39:00 Test Item Value Reference Range Interpretation Comments WHITE BLOOD CELL (test code = 9.5 x10 3/uL 4.5-11.0 N WBC) RED BLOOD CELL (test code = 2.82 x10 6/uL 3.54-5.02 L RBC) HEMOGLOBIN (test code = HGB) 8.6 g/dL 11.0-15.0 L HEMATOCRIT (test code = HCT) 26.5 % 33.0-45.0 L MEAN CELL VOLUME (test code = 94.0 fL 81.0-99.0 N MCV) MEAN CELL HGB (test code = MCH) 30.5 pg 27.0-33.0 N MEAN CELL HGB CONCETRATION 32.5 g/dL 33.0-37.0 L (test code = MCHC) RED CELL DISTRIBUTION WIDTH CV 15.5 % 11.5-14.5 H (test code = RDW) RED CELL DISTRIBUTION WIDTH SD 49.2 fL 37.0-54.0 N (test code = RDW-SD) PLATELET COUNT (test code = 267 x10 3/uL 150-400 N PLT) MEAN PLATELET VOLUME (test code 9.4 fL 7.0-9.0 H = MPV) NEUTROPHIL % (test code = NT%) 54.3 % 56.0-77.0 L IMMATURE GRANULOCYTE % (test 2.3 % 0.0-2.0 H code = IG%) LYMPHOCYTE % (test code = LY%) 33.5 % 14.0-32.0 H MONOCYTE % (test code = MO%) 6.9 % 4.8-9.0 N EOSINOPHIL % (test code = EO%) 2.7 % 0.3-3.7 N BASOPHIL % (test code = BA%) 0.3 % 0.0-2.0 N NUCLEATED RBC % (test code = 0.5 % 0-0 H NRBC%) NEUTROPHIL # (test code = NT#) 5.17 x10 3/uL 2.0-7.6 N IMMATURE GRANULOCYTE # (test 0.22 x10 3/uL 0.00-0.03 H code = IG#) LYMPHOCYTE # (test code = LY#) 3.20 x10 3/uL 1.0-3.8 N MONOCYTE # (test code = MO#) 0.66 x10 3/uL 0.1-0.8 N EOSINOPHIL # (test code = EO#) 0.26 x10 3/uL 0.0-0.2 H BASOPHIL # (test code = BA#) 0.03 x10 3/uL 0.0-0.2 N NUCLEATED RBC # (test code = 0.05 x10 3/uL 0.0-0.1 N NRBC#) MANUAL DIFF REQUIRED (test code NO = MDIFF) - XR CHEST 1 [id number] 00:00:00 [facility] : 1955 Sex: F FAX: Peggy Shaw [phone] [place]: St: [facility] FAX: [place] [phone] ------- [facility] 1955 Age/S: 67/F [address] [place] [address] Unit #: [id number] Loc: G.[address] [place] [address] Phys: Peggy Rogel MD Acct: [id number] Dis Date: Status: ADM IN PHONE #: [phone] Exam Date: 06/25/2022757 FAX #: [phone] Reason: R/O PLEURAL EFFUSION EXAMS: CPT CODE: [id number] XR CHEST 1 V 23724 PROCEDURE INFORMATION: Exam: XR Chest Exam date and time: 06/25/2022 7:52 AMAge: 67 years old Clinical indication: Condition or disease; Lung condition and disease; Pleural effusion; Other: Na; Additional info: R/O pleural effusion TECHNIQUE: Imaging protocol: Radiologic examof the chest. Views: 1 view. COMPARISON: CR XR CHEST 1V 06/23/2022 5:26 AM FINDINGS: Tubes, cathetersand devices: None. Lungs: Yzao-lf-ykxyxoel bilateral perihilar and basilar interstitial lung opacities, suggesting pulmonary edema versus infiltrates. The peripheral lungs are otherwise clear. The pulmonary opacities are most prominent within the lower left lung. Pleural spaces: Small to moderate volume of pleural fluid is demonstrated within the left side. No other pleural effusion or pneumothorax identified. Heart/Mediastinum: Cardiac silhouette appears funb-vx-pctwjftfel enlarged. Bones/joints: Sternotomy wires, hardware is demonstrated. Generalized bony degenerative changes. Soft tissues: This study is limited by patient's body habitus. IMPRESSION: 1. Pgir-sq-sqwcogrnnl enlarged cardiac silhouette. 2. Small to moderate left pleural effusion. 3. Owgt-dy-ygcvcolo pulmonary edema versus infiltrates. at 0834 Reported and signed by: Victor Manuel Mcallister M.D. 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[facility] GLUCOSE [id number] 11:58:00 Test Item Value Reference Range Interpretation Comments GLUCOSE BEDSIDE (test 178 MG/DL 70-110 H Perfor med by certified code = GLUBED) 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[facility] GLUCOSE [id number] 08:49:00 Test Item Value Reference Range Interpretation Comments GLUCOSE BEDSIDE (test 151 MG/DL 70-110 H Perfor med by certified code = GLUBED) 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[facility] CBC W/AUTO [id number] 08:15:00 Test Item Value Reference Range Interpretation Comments WHITE BLOOD CELL (test code = 8.8 x10 3/uL 4.5-11.0 N WBC) RED BLOOD CELL (test code = 3.03 x10 6/uL 3.54-5.02 L RBC) HEMOGLOBIN (test code = HGB) 9.2 g/dL 11.0-15.0 L HEMATOCRIT (test code = HCT) 29.2 % 33.0-45.0 L MEAN CELL VOLUME (test code = 96.4 fL 81.0-99.0 MCV) MEAN CELL HGB (test code = MCH) 30.4 pg 27.0-33.0 N MEAN CELL HGB CONCETRATION 31.5 g/dL 33.0-37.0 L (test code = MCHC) RED CELL DISTRIBUTION WIDTH CV 15.6 % 11.5-14.5 H (test code = RDW) RED CELL DISTRIBUTION WIDTH SD 50.4 fL 37.0-54.0 N (test code = RDW-SD) PLATELET COUNT (test code = 178 x10 3/uL 150-400 N PLT) MEAN PLATELET VOLUME (test code 10.4 fL 7.0-9.0 H = MPV) NEUTROPHIL % (test code = NT%) 58.0 % 56.0-77.0 N IMMATURE GRANULOCYTE % (test 1.4 % 0.0-2.0 N code = IG%) LYMPHOCYTE % (test code = LY%) 31.7 % 14.0-32.0 N MONOCYTE % (test code = MO%) 6.3 % 4.8-9.0 N EOSINOPHIL % (test code = EO%) 2.3 % 0.3-3.7 N BASOPHIL % (test code = BA%) 0.3 % 0.0-2.0 N NUCLEATED RBC % (test code = 0.9 % 0-0 H NRBC%) NEUTROPHIL # (test code = NT#) 5.11 x10 3/uL 2.0-7.6 N IMMATURE GRANULOCYTE # (test 0.12 x10 3/uL 0.00-0.03 H code = IG#) LYMPHOCYTE # (test code = LY#) 2.79 x10 3/uL 1.0-3.8 N MONOCYTE # (test code = MO#) 0.55 x10 3/uL 0.1-0.8 N EOSINOPHIL # (test code = EO#) 0.20 x10 3/uL 0.0-0.2 N BASOPHIL # (test code = BA#) 0.03 x10 3/uL 0.0-0.2 N NUCLEATED RBC # (test code = 0.08 x10 3/uL 0.0-0.1 N NRBC#) MANUAL DIFF REQUIRED (test code NO = MDIFF) BASIC METABOLIC [id number] 08:11:00 Test Item Value Reference Range Interpretation Comments SODIUM (test code = 141 mEq/L 134-147 N NA) POTASSIUM (test code 4.6 mEq/L 3.4-5.0 N = K) CHLORIDE (test code 107 mEq/L 100-108 N = CL) CARBON DIOXIDE (test 28 mEq/l 21-33 N code = CO2) ANION GAP (test code 11 0-20 N = GAP) GLUCOSE (test code = 135 mg/dL 70-110 H GLU) BLOOD UREA NITROGEN 12 mg/dL 7-18 N (test code = BUN) GLOMERULAR 62.5 80-90 L The Glomerular FILTRATION RATE Filtration R ate is a (test code = GFR) calculated parameterbased on serum Creatinine, pat ient age and sex. GFR va luesless than 60 mL/min/ 1.73 square meters a re indicative ofCh ronic Kidney Disease. Values less than 15 mL/min/1.73squa re meters indicate Kidney failure. The calculation forGFR is based on the CKD-EPI (2020) calculat ion. This formulais race indifferent and is the recommended for lela for GFRby the Natio nal Kidney Foundati on for Adults.The GFR will not calculate if th e sex is unknown or if thepatient's ag e is <18 years. CREATININE (test 1.0 mg/dL 0.6-1.3 N code = CREAT) CALCIUM (test code = 9.4 mg/dL 8.0-10.5 N CA) [id number] 08:11:00 Test Item Value Reference Range Interpretation Comments MAGNESIUM (test code = MAG) 2.03 mg/dL 1.80-2.40 N - DUP VEIN [id number] 00:00:00 [facility] : 1955 Sex: F Name:KALA TURPIN [facility] : 1955 Age/S: 67 / F [address] [place] [address] Unit #: [id number] Loc: [place] [address] Phys: Peggy Rogel MD Acct: [id number] Dis Date: Status: ADM IN PHONE #: [phone] Exam Date: 06/24/2022 1535 FAX #: [phone] Reason: R/O DVT EXAMS: CPT CODE:[id number] DUP VEIN TRE [id number] PROCEDURE INFORMATION: Exam: US Duplex Lower Extremity Veins, BilateralExam date and time: 06/24/2022 3:13 PM Age: 67 years old Clinical indication: Screening exam; Additional info: R/O dvt TECHNIQUE: Imaging protocol: Real-time duplex ultrasound of the bilateral extremities with 2-D young scale, color Doppler flow and spectral waveform analysis including responses to compression and other maneuvers (when performed) with image documentation. Complete exam focused on the lower extremity veins. COMPARISON: US DUP VEIN UNI/LTD 06/15/2022 8:52 AM FINDINGS: Right deep veins: Unremarkable. The common femoral, femoral, proximal profunda femoral and popliteal veins are patent without thrombus. Normal Doppler waveforms. Normal compressibility and/or augmentation response. Rightsuperficial veins: Saphenofemoral junction is patent without thrombus. Left deep veins: Unremarkable. The common femoral, femoral, proximal profunda femoral and popliteal veins are patent without thromb us. Normal Doppler waveforms. Normal compressibility and/or augmentation response. Left superficial veins: Saphenofemoral junction is patent without thrombus. Soft tissues: Soft tissue edema. IMPRESSION: No evidence of deep vein thrombosis. at 1617 Reported and signed by: Duncan Sandoval M.D. 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[facility] GLUCOSE [id number] 12:28:00 Test Item Value Reference Range Interpretation Comments GLUCOSE BEDSIDE (test 169 MG/DL 70-110 H Perfor med by certified code = GLUBED) 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[facility] GLUCOSE [id number] 08:12:00 Test Item Value Reference Range Interpretation Comments GLUCOSE BEDSIDE (test 139 MG/DL 70-110 H Perfor med by certified code = GLUBED) 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[facility] BASIC METABOLIC [id number] 03:28:00 Test Item Value Reference Range Interpretation Comments SODIUM (test code = 144 mEq/L 134-147 N NA) POTASSIUM (test code 4.0 mEq/L 3.4-5.0 N = K) CHLORIDE (test code 112 mEq/L 100-108 H = CL) CARBON DIOXIDE (test 30 mEq/l 21-33 N code = CO2) ANION GAP (test code 6 0-20 N = GAP) GLUCOSE (test code = 120 mg/dL 70-110 H GLU) BLOOD UREA NITROGEN 14 mg/dL 7-18 N (test code = BUN) GLOMERULAR 81.7 80-90 N The Glomerular FILTRATION RATE Filtration R ate is a (test code = GFR) calculated parameterbased on serum Creatinine, pat ient age and sex. GFR va luesless than 60 mL/min/ 1.73 square meters a re indicative ofCh ronic Kidney Disease. Values less than 15 mL/min/1.73squa re meters indicate Kidney failure. The calculation forGFR is based on the CKD-EPI (2020) calculat ion. This formulais race indifferent and is the recommended for lela for GFRby the [facility] Found[facility] on for Adults.The GFR will not calculate if th e sex is unknown or if thepatient's ag e is <18 years. CREATININE (test 0.8 mg/dL 0.6-1.3 N code = CREAT) CALCIUM (test code = 9.2 mg/dL 8.0-10.5 N CA) [id number] 03:28:00 Test Item Value Reference Range Interpretation Comments MAGNESIUM (test code = MAG) 2.10 mg/dL 1.80-2.40 N CBC W/AUTO [id number] 03:09:00 Test Item Value Reference Range Interpretation Comments WHITE BLOOD CELL (test code = 8.7 x10 3/uL 4.5-11.0 N WBC) RED BLOOD CELL (test code = 2.86 x10 6/uL 3.54-5.02 L RBC) HEMOGLOBIN (test code = HGB) 8.8 g/dL 11.0-15.0 L HEMATOCRIT (test code = HCT) 25.7 % 33.0-45.0 L MEAN CELL VOLUME (test code = 89.9 fL 81.0-99.0 N MCV) MEAN CELL HGB (test code = MCH) 30.8 pg 27.0-33.0 N MEAN CELL HGB CONCETRATION 34.2 g/dL 33.0-37.0 N (test code = MCHC) RED CELL DISTRIBUTION WIDTH CV 14.6 % 11.5-14.5 H (test code = RDW) RED CELL DISTRIBUTION WIDTH SD 45.8 fL 37.0-54.0 N (test code = RDW-SD) PLATELET COUNT (test code = 218 x10 3/uL 150-400 N PLT) MEAN PLATELET VOLUME (test code 9.7 fL 7.0-9.0 H = MPV) NEUTROPHIL % (test code = NT%) 61.5 % 56.0-77.0 N IMMATURE GRANULOCYTE % (test 1.5 % 0.0-2.0 N code = IG%) LYMPHOCYTE % (test code = LY%) 27.4 % 14.0-32.0 N MONOCYTE % (test code = MO%) 6.7 % 4.8-9.0 N EOSINOPHIL % (test code = EO%) 2.8 % 0.3-3.7 N BASOPHIL % (test code = BA%) 0.1 % 0.0-2.0 N NUCLEATED RBC % (test code = 0.8 % 0-0 H NRBC%) NEUTROPHIL # (test code = NT#) 5.36 x10 3/uL 2.0-7.6 N IMMATURE GRANULOCYTE # (test 0.13 x10 3/uL 0.00-0.03 H code = IG#) LYMPHOCYTE # (test code = LY#) 2.39 x10 3/uL 1.0-3.8 N MONOCYTE # (test code = MO#) 0.58 x10 3/uL 0.1-0.8 N EOSINOPHIL # (test code = EO#) 0.24 x10 3/uL 0.0-0.2 H BASOPHIL # (test code = BA#) 0.01 x10 3/uL 0.0-0.2 N NUCLEATED RBC # (test code = 0.07 x10 3/uL 0.0-0.1 N NRBC#) MANUAL DIFF REQUIRED (test code NO = VIVIEN) - XR CHEST 1 [id number] 00:00:00 [facility] : 1955 Sex: F FAX: Ventura Rose MD [place]: St: ADM FAX: Bang England [phone] Name: KALA TURPIN [facility] : 1955 Age/S: 67/F [address] [place] [address] Unit #: [id number] Loc: G.8287 [place] [address] Phys: Ventura Minor MD Acct: [id number] Dis Date: Status: ADM IN PHONE #: [phone] Exam Date: FAX #: [phone] Reason: TRENDING EXAMS: CPT CODE: [id number] XR CHEST 1 V 43472 PROCEDURE INFORMATION: Exam: XR Chest Exam date and time: 06/23/2022 5:26 AM Age: 67 years old Clinical indication: Other: Trending TECHNIQUE: Imaging protocol: Radiologic exam of the chest. Views: 1 view. COMPARISON: CR XR CHEST 1V 06/22/2022 5:25 AM FINDINGS: Lungs: Unremarkable. No consolidation. Pleural spaces:Hazy shadowing is seen in the left lower hemithorax consistent with small left pleural effusion. Heart/Mediastinum: The cardiac silhouette demonstrates mild left ventricular enlargement as before without evidence of failure. Bones/joints: The patient has had a prior median sternotomy and CABG surgery. IMPRESSION: Shadowing in the left lower hemithorax likely representing small left pleural effusion.The this is probably unchanged from previous. at 09 Reported and signed by: Smith Alan M.D. CC: Ventura Minor MD; Bang Patel MD Technologist: RT Alexandre(R) Trnscrd Date/Time/By: 06/23/2022 (925) : By: [email or web address] Orig Print D/T: S: 06/23/2022 (925) PAGE 1 Signed ReportPROTHROMBIN [id number] 22:19:00 Test Item Value Reference Range Interpretation Comments PROTHROMBIN TIME 14.2 SECONDS 9.3-12.9 H PATIENT (test code = PTP) INTERNATIONAL NORMAL 1.3 0.8-1.2 H TARGET INR BY RATIO (test code = INDICATIO N Indication INR) INR1. Prophylax is of venous thrombos is 2.0 - 3.0 (orthoped ic surgery), Proph ylaxis of venous throm bosis (other than hig h-risk surgery), Treat ment of Deep Vein Thrombosis/Pulm onary Embolism, Preve ntion of systemic emb olism - Tissue heart va lves, Acute Myocardia l Infarction (to prevent systemic emboli sm), Valvular heart disease, Atrial Fibrillation, Bileaflet mecha nical valve in aortic position.2. Mec hanical prosthetic valv es (high risk), 2. 5 - 3.5 Presence of Lup us Anticoagulant o r Antiphospholipi d Antibodies, Pre vention of systemic emb olism - Acute Myocardia l Infarction (to prevent recurrent infar ct). THROMBOPLASTIN TIME [id number] 21:57:00 Test Item Value Reference Range Interpretation Comments THROMBOPLASTIN TIME 31.9 Seconds 25.0-39.5 N Therape utic Range: PARTIAL (test code = 50.4 - 88.3 Seconds PTT) Effective 07/09/2018 CBC W/AUTO [id number] 21:47:00 Test Item Value Reference Range Interpretation Comments WHITE BLOOD CELL (test code = 8.8 x10 3/uL 4.5-11.0 N WBC) RED BLOOD CELL (test code = 2.81 x10 6/uL 3.54-5.02 L RBC) HEMOGLOBIN (test code = HGB) 8.6 g/dL 11.0-15.0 L HEMATOCRIT (test code = HCT) 25.4 % 33.0-45.0 L MEAN CELL VOLUME (test code = 90.4 fL 81.0-99.0 N MCV) MEAN CELL HGB (test code = MCH) 30.6 pg 27.0-33.0 N MEAN CELL HGB CONCETRATION 33.9 g/dL 33.0-37.0 N (test code = MCHC) RED CELL DISTRIBUTION WIDTH CV 14.5 % 11.5-14.5 N (test code = RDW) RED CELL DISTRIBUTION WIDTH SD 45.8 fL 37.0-54.0 N (test code = RDW-SD) PLATELET COUNT (test code = 229 x10 3/uL 150-400 N PLT) MEAN PLATELET VOLUME (test code 10.0 fL 7.0-9.0 H = MPV) NEUTROPHIL % (test code = NT%) 61.5 % 56.0-77.0 N IMMATURE GRANULOCYTE % (test 1.6 % 0.0-2.0 N code = IG%) LYMPHOCYTE % (test code = LY%) 28.2 % 14.0-32.0 N MONOCYTE % (test code = MO%) 6.2 % 4.8-9.0 N EOSINOPHIL % (test code = EO%) 2.3 % 0.3-3.7 N BASOPHIL % (test code = BA%) 0.2 % 0.0-2.0 N NUCLEATED RBC % (test code = 1.0 % 0-0 H NRBC%) NEUTROPHIL # (test code = NT#) 5.38 x10 3/uL 2.0-7.6 N IMMATURE GRANULOCYTE # (test 0.14 x10 3/uL 0.00-0.03 H code = IG#) LYMPHOCYTE # (test code = LY#) 2.47 x10 3/uL 1.0-3.8 N MONOCYTE # (test code = MO#) 0.54 x10 3/uL 0.1-0.8 N EOSINOPHIL # (test code = EO#) 0.20 x10 3/uL 0.0-0.2 N BASOPHIL # (test code = BA#) 0.02 x10 3/uL 0.0-0.2 N NUCLEATED RBC # (test code = 0.09 x10 3/uL 0.0-0.1 N NRBC#) MANUAL DIFF REQUIRED (test code NO = MDIFF) GLUCOSE [id number] 16:35:00 Test Item Value Reference Range Interpretation Comments GLUCOSE BEDSIDE (test 154 MG/DL 70-110 H Perfor med by certified code = GLUBED) 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[facility] GLUCOSE [id number] 14:09:00 Test Item Value Reference Range Interpretation Comments GLUCOSE BEDSIDE (test 228 MG/DL 70-110 H Perfor med by certified code = GLUBED) 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[facility] GLUCOSE [id number] 11:21:00 Test Item Value Reference Range Interpretation Comments GLUCOSE BEDSIDE (test 164 MG/DL 70-110 H Perfor med by certified code = GLUBED) 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[facility] BASIC METABOLIC [id number] 03:05:00 Test Item Value Reference Range Interpretation Comments SODIUM (test code = 142 mEq/L 134-147 N NA) POTASSIUM (test code 4.1 mEq/L 3.4-5.0 N = K) CHLORIDE (test code 108 mEq/L 100-108 N = CL) CARBON DIOXIDE (test 29 mEq/l 21-33 N code = CO2) ANION GAP (test code 9 0-20 N = GAP) GLUCOSE (test code = 147 mg/dL 70-110 H GLU) BLOOD UREA NITROGEN 15 mg/dL 7-18 N (test code = BUN) GLOMERULAR 81.7 80-90 N The Glomerular FILTRATION RATE Filtration R ate is a (test code = GFR) calculated parameterbased on serum Creatinine, pat ient age and sex. GFR va luesless than 60 mL/min/ 1.73 square meters a re indicative ofCh ronic Kidney Disease. Values less than 15 mL/min/1.73squa re meters indicate Kidney failure. The calculation forGFR is based on the CKD-EPI (2020) calculat ion. This formulais race indifferent and is the recommended for lela for GFRby the [facility] on for Adults.The GFR will not calculate if th e sex is unknown or if thepatient's ag e is <18 years. CREATININE (test 0.8 mg/dL 0.6-1.3 N code = CREAT) CALCIUM (test code = 8.6 mg/dL 8.0-10.5 N CA) [id number] 03:05:00 Test Item Value Reference Range Interpretation Comments MAGNESIUM (test code = MAG) 1.91 mg/dL 1.80-2.40 N CBC W/AUTO [id number] 02:50:00 Test Item Value Reference Range Interpretation Comments WHITE BLOOD CELL (test code = 9.8 x10 3/uL 4.5-11.0 N WBC) RED BLOOD CELL (test code = 2.76 x10 6/uL 3.54-5.02 L RBC) HEMOGLOBIN (test code = HGB) 8.5 g/dL 11.0-15.0 L HEMATOCRIT (test code = HCT) 24.8 % 33.0-45.0 L MEAN CELL VOLUME (test code = 89.9 fL 81.0-99.0 N MCV) MEAN CELL HGB (test code = MCH) 30.8 pg 27.0-33.0 N MEAN CELL HGB CONCETRATION 34.3 g/dL 33.0-37.0 N (test code = MCHC) RED CELL DISTRIBUTION WIDTH CV 14.1 % 11.5-14.5 N (test code = RDW) RED CELL DISTRIBUTION WIDTH SD 45.0 fL 37.0-54.0 N (test code = RDW-SD) PLATELET COUNT (test code = 208 x10 3/uL 150-400 N PLT) MEAN PLATELET VOLUME (test code 9.7 fL 7.0-9.0 H = MPV) NEUTROPHIL % (test code = NT%) 65.4 % 56.0-77.0 N IMMATURE GRANULOCYTE % (test 1.3 % 0.0-2.0 N code = IG%) LYMPHOCYTE % (test code = LY%) 24.4 % 14.0-32.0 N MONOCYTE % (test code = MO%) 6.7 % 4.8-9.0 N EOSINOPHIL % (test code = EO%) 2.0 % 0.3-3.7 N BASOPHIL % (test code = BA%) 0.2 % 0.0-2.0 N NUCLEATED RBC % (test code = 1.0 % 0-0 H NRBC%) NEUTROPHIL # (test code = NT#) 6.41 x10 3/uL 2.0-7.6 N IMMATURE GRANULOCYTE # (test 0.13 x10 3/uL 0.00-0.03 H code = IG#) LYMPHOCYTE # (test code = LY#) 2.40 x10 3/uL 1.0-3.8 N MONOCYTE # (test code = MO#) 0.66 x10 3/uL 0.1-0.8 N EOSINOPHIL # (test code = EO#) 0.20 x10 3/uL 0.0-0.2 N BASOPHIL # (test code = BA#) 0.02 x10 3/uL 0.0-0.2 N NUCLEATED RBC # (test code = 0.10 x10 3/uL 0.0-0.1 N NRBC#) MANUAL DIFF REQUIRED (test code NO = MDIFF) - XR CHEST 1 [id number] 00:00:00 [facility] 1955 Sex: F FAX: Reva Murrell MD [phone] [place]: St: ADM FAX: Evelin Aden [phone] Name: KALA TURPIN [facility] : 1955 Age/S: 67/F [address] [place] [address] Unit #: [id number] Loc: [address] [address] Phys: Kassie Kim NP Acct: [id number] Dis Date: Status: ADM IN PHONE #: [phone] Exam Date: 06/22/2022526 FAX #: [phone] Reason: Cardiac Surgery Post Op EXAMS: CPT CODE: [id number] XR CHEST 1 V 78040 PROCEDURE INFORMATION: Exam: XR Chest Exam date and time: 06/22/2022 5:25 AM Age: 67 years old Clinical indication: Other: Cardiac surgery post op TECHNIQUE: Imaging protocol: Radiologic exam of the chest. Views: 1 view. COMPARISON: CR XR CHEST 1V 06/21/2022 5:25 AM FINDINGS: Lungs: Unchanged left basilar airspace disease. Pleural spaces: Probable trace left pleural effusion. No pneumothorax. Heart/Mediastinum: Unchanged cardiomediastinal silhouette. Bones/joints: Median sternotomy changes. IMPRESSION: 1. Unchanged left basilar airspace disease. 2. Probable trace left pleuraleffusion. at 0915 Reported and signed by: Srinath Crain M.D. 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[facility] GLUCOSE [id number] 12:05:00 Test Item Value Reference Range Interpretation Comments GLUCOSE BEDSIDE (test 160 MG/DL 70-110 H Perfor med by certified code = GLUBED) 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[facility] BASIC METABOLIC [id number] 02:39:00 Test Item Value Reference Range Interpretation Comments SODIUM (test code = 139 mEq/L 134-147 N NA) POTASSIUM (test code 3.7 mEq/L 3.4-5.0 N = K) CHLORIDE (test code 107 mEq/L 100-108 N = CL) CARBON DIOXIDE (test 30 mEq/l 21-33 N code = CO2) ANION GAP (test code 6 0-20 N = GAP) GLUCOSE (test code = 192 mg/dL 70-110 H GLU) BLOOD UREA NITROGEN 17 mg/dL 7-18 N (test code = BUN) GLOMERULAR 81.7 80-90 N The Glomerular FILTRATION RATE Filtration R ate is a (test code = GFR) calculated parameterbased on serum Creatinine, pat ient age and sex. GFR va luesless than 60 mL/min/ 1.73 square meters a re indicative ofCh ronic Kidney Disease. Values less than 15 mL/min/1.73squa re meters indicate Kidney failure. The calculation forGFR is based on the CKD-EPI (2020) calculat ion. This formulais race indifferent and is the recommended for lela for GFRby the [facility] Found[facility] on for Adults.The GFR will not calculate if th e sex is unknown or if thepatient's ag e is <18 years. CREATININE (test 0.8 mg/dL 0.6-1.3 N code = CREAT) CALCIUM (test code = 8.8 mg/dL 8.0-10.5 N CA) HEPATIC FUNCTION [id number] 02:39:00 Test Item Value Reference Range Interpretation Comments TOTAL PROTEIN (test code = PROT) 5.2 g/dL 6.4-8.2 L ALBUMIN (test code = ALB) 2.60 g/dL 3.4-5.0 L BILIRUBIN TOTAL (test code = BILT) 0.80 mg/dL 0.0-1.0 N BILIRUBIN DIRECT (test code = 0.30 MG/DL 0.0-0.30 BILD) SGOT/AST (test code = AST) 21 IUnit/L 15-37 N SGPT/ALT (test code = ALT) 11 IUnit/L 30-65 L ALKALINE PHOSPHATASE TOTAL (test 78 IUnit/L 20-125 N code = ALKP) BILIRUBIN INDIRECT (test code = 0.50 MG/DL BILIND) [id number] 02:39:00 Test Item Value Reference Range Interpretation Comments PHOSPHOROUS (test code = PHOS) 2.6 MG/DL 2.5-4.9 [id number] 02:39:00 Test Item Value Reference Range Interpretation Comments MAGNESIUM (test code = MAG) 2.09 mg/dL 1.80-2.40 N CALCIUM [id number] 02:39:00 Test Item Value Reference Range Interpretation Comments CALCIUM IONIZED (test code = ROBERTA) 1.17 MMOL/L 1.09-1.30 N CBC W/AUTO [id number] 02:21:00 Test Item Value Reference Range Interpretation Comments WHITE BLOOD CELL (test code = 10.0 x10 3/uL 4.5-11.0 N WBC) RED BLOOD CELL (test code = 2.92 x10 6/uL 3.54-5.02 L RBC) HEMOGLOBIN (test code = HGB) 8.9 g/dL 11.0-15.0 L HEMATOCRIT (test code = HCT) 25.6 % 33.0-45.0 L MEAN CELL VOLUME (test code = 87.7 fL 81.0-99.0 N MCV) MEAN CELL HGB (test code = MCH) 30.5 pg 27.0-33.0 N MEAN CELL HGB CONCETRATION 34.8 g/dL 33.0-37.0 N (test code = MCHC) RED CELL DISTRIBUTION WIDTH CV 13.7 % 11.5-14.5 N (test code = RDW) RED CELL DISTRIBUTION WIDTH SD 43.0 fL 37.0-54.0 N (test code = RDW-SD) PLATELET COUNT (test code = 211 x10 3/uL 150-400 N PLT) MEAN PLATELET VOLUME (test code 9.8 fL 7.0-9.0 H = MPV) NEUTROPHIL % (test code = NT%) 61.9 % 56.0-77.0 N IMMATURE GRANULOCYTE % (test 1.1 % 0.0-2.0 N code = IG%) LYMPHOCYTE % (test code = LY%) 27.7 % 14.0-32.0 N MONOCYTE % (test code = MO%) 6.6 % 4.8-9.0 N EOSINOPHIL % (test code = EO%) 2.4 % 0.3-3.7 N BASOPHIL % (test code = BA%) 0.3 % 0.0-2.0 N NUCLEATED RBC % (test code = 0.6 % 0-0 H NRBC%) NEUTROPHIL # (test code = NT#) 6.19 x10 3/uL 2.0-7.6 N IMMATURE GRANULOCYTE # (test 0.11 x10 3/uL 0.00-0.03 H code = IG#) LYMPHOCYTE # (test code = LY#) 2.77 x10 3/uL 1.0-3.8 N MONOCYTE # (test code = MO#) 0.66 x10 3/uL 0.1-0.8 N EOSINOPHIL # (test code = EO#) 0.24 x10 3/uL 0.0-0.2 H BASOPHIL # (test code = BA#) 0.03 x10 3/uL 0.0-0.2 N NUCLEATED RBC # (test code = 0.06 x10 3/uL 0.0-0.1 N NRBC#) MANUAL DIFF REQUIRED (test code NO = MDIFF) - XR CHEST 1 [id number] 00:00:00 [facility] : 1955 Sex: F FAX: Reva Murrell MD [phone] [place]: St: ADM FAX: Evelin Aden [phone] Name: KALA TURPIN [facility] : 1955 Age/S: 67/F [address] [place] [address] Unit #: [id number] Loc: G.2205 [place] [address] Phys: Kassie Kim NP Acct: [id number] Dis Date: Status: ADM IN PHONE #: [phone] Date: 06/21/2022714 FAX #: [phone] Reason: Cardiac Surgery Post Op EXAMS: CPT CODE: [id number] XR CHEST 1 V 57566 PROCEDURE INFORMATION: Exam: XR Chest Exam date and time: 06/21/2022 5:25 AMAge: 67 years old Clinical indication: Other: Cardiac surgery post op TECHNIQUE: Imaging protocol: Radiologic exam of the chest. Views: 1 view. COMPARISON: CR XR CHEST 1V 06/20/2022 5:18 AM FINDINGS: Lungs: Unchanged left basilar airspace disease. Pleural spaces: Unchanged small left pleural effusion. No evidence of pneumothorax. Heart/Mediastinum: Unchanged cardiomediastinal silhouette. Vasculature: Right IJ sheath with tip projecting in the SVC. Bones/joints: Median sternotomy changes. IMPRESSION: 1. Unchanged left basilar airspace disease. 2. Unchanged small left pleural effusion. No evidence of pneumothorax. at 0916 Reported and signed by: Srinath Crain M.D. 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[facility] POC ARTERIAL BLOOD [id number] 18:53:00 Test Item Value Reference Range Interpretation Comments POC ARTERIAL BLOOD GAS PH (test 7.459 7.35-7.45 H code = POCPHA) POC ARTERIAL BLOOD GAS PCO2 (test 36.1 mmHg 35.0-45 N code = UENDEV3E) POC TCO2 ARTERIAL (test code = 26.7 POCTCO2) POC ARTERIAL BLOOD GAS PO2 (test 75.0 mmHg 80-100.0 L code = AQAEJ4I) POC HCO3 ARTERIAL (test code = 25.6 MMOL/L 22.0-26.0 N [id number]) POC BASE EXCESS (test code = 1.7 MMOL/L -4.0-4.0 N POCBEA) POC O2 SATURATION (test code = 95.6 % 90-100 N POCO2S) ABG DELIVERY (test code = HUNTER) Room Air ABG TEMPERATURE (test code = 98.8 F TEMPA) ABG SITE (test code = SITEA) Art Line BASIC METABOLIC [id number] 18:53:00 Test Item Value Reference Range Interpretation Comments SODIUM (test code = NA/ABG) 139 mmol/L 134-147 N POTASSIUM (test code = K/ABG) 3.7 mmol/L 3.4-5.0 N CHLORIDE (test code = CL/ABG) 103 mmol/L 100-108 N CREATININE ABG (test code = 0.7 mg/dL 0.6-1.0 N CREAABG) POC IONIZED CALCIUM (test code = 1.25 MMOL/L 1.12-1.32 N POCCA) POC GLUCOSE (test code = POCGLU) 139 MG/DL 70-110 H HEMOGLOBIN [id number] 18:53:00 Test Item Value Reference Range Interpretation Comments HEMOGLOBIN ABG (test code = HGB/ABG) 8.4 G/DL 11.0-15.0 L [id number] 18:53:00 Test Item Value Reference Range Interpretation Comments HEMATOCRIT (test code = HCT/ABG) 25 % 33.0-45.0 L POC LACTIC [id number] 18:53:00 Test Item Value Reference Range Interpretation Comments POC LACTIC ACID (test code = 1.0 mmol/l 0.9-1.7 N POCLAC) BASIC METABOLIC [id number] 17:21:00 Test Item Value Reference Range Interpretation Comments SODIUM (test code = 139 mEq/L 134-147 N NA) POTASSIUM (test code 3.6 mEq/L 3.4-5.0 N = K) CHLORIDE (test code 107 mEq/L 100-108 N = CL) CARBON DIOXIDE (test 27 mEq/l 21-33 N code = CO2) ANION GAP (test code 9 0-20 N = GAP) GLUCOSE (test code = 151 mg/dL 70-110 H GLU) BLOOD UREA NITROGEN 18 mg/dL 7-18 N (test code = BUN) GLOMERULAR 81.7 80-90 N The Glomerular FILTRATION RATE Filtration R ate is a (test code = GFR) calculated parameterbased on serum Creatinine, pat ient age and sex. GFR va luesless than 60 mL/min/ 1.73 square meters a re indicative ofCh ronic Kidney Disease. Values less than 15 mL/min/1.73squa re meters indicate Kidney failure. The calculation forGFR is based on the CKD-EPI (2020) calculat ion. This formulais race indifferent and is the recommended for lela for GFRby the [facility] on for Adults.The GFR will not calculate if th e sex is unknown or if thepatient's ag e is <18 years. CREATININE (test 0.8 mg/dL 0.6-1.3 N code = CREAT) CALCIUM (test code = 9.0 mg/dL 8.0-10.5 N CA) [id number] 17:21:00 Test Item Value Reference Range Interpretation Comments MAGNESIUM (test code = MAG) 1.99 mg/dL 1.80-2.40 [id number] 14:50:00 Test Item Value Reference Range Interpretation Comments SURGICAL (test code = SR) R UN DATE: 06/20/22 Mobile - LAB PAGE 1 RUN TIME: 1451 Specimen Inquiry RUN USER: INTERFACE P ATIENT: KALA TURPIN LOC: MISSY U #: [id number] AGE/SX: 67/F [facility]: Reva Murrell MD : 57 BED: 1 DIS: STATUS: ADM IN TLOC: SPEC #: [id number] RECD: 06/19/22 STATUS: SOUT REQ #: [id number] RK: 06/16/22- SUBM DR: Peggy Rogel MD ENTERED: 06/19/22 SP TYPE: SURGICAL OTHR DR: Self Referred Julius Washington MD [facility], GENERIC FOR Srinivas Valenzuela MD, Kuldip K MD Undefined ProviderORDERED: [id number], ANATOMIC SPEC COPIES TO: Self Referred Julius Washington MD [address] [place] [address] Peggy Rogel MD [address] [place] [address] [address] [place] [address] [facility], GENERIC FOR EDM [address] [place] [address] Srinivas Berry MD,Jurgen Gasca MD [address] [facility] [address] [place], [place] [id number] Undefined Provider PROCEDURES: [id number] (06/19/22) TISSUES: A. ATRIUM - LEFT ATRIAL APPENDAGE CONTINUED ON NEXT PAGE R UN DATE: 06/20/22 [facility] PAGE 2 RUN TIME: 1451 Specimen Inquiry RUN USER: INTERFACE S PEC #: [id number] PATIENT: KALA TURPIN #[id number] (Continued) CLINICAL HISTORY SAME FINAL DIAGNOSIS Heart, left atrial appendage, wedge biopsy: Myocardium with focal mild ischemic change. GROSS DESCRIPTION Received in formalin labeled "left atrial appendage "is a wedge biopsy of heart, 3.5 x 1.8x 1.0 cm, sectioned and entirely submitted (A). Technical component performed at [address], [place] [address] Unless gross only, the diagnosis is based upon microscopic examination.Immunohistochemistr y: This test was developed and its performance characteristicsdetermined by this laboratory. It has not been approved nor does it need approvalby the [place] FDA. Appropriate positive and negative controls are reviewed and judgedto be acceptable. This laboratory is certified under the Clinical Laboratory ImprovementAmendments (CLIA-88) as qualified to perform high complexity clinical laboratory testing. CLINICAL INFORMATION CAD -- Signed SIGNATURE ON FILE Gato Mane 06/20/22 3150 END OF REPORT BASIC METABOLIC [id number] 03:45:00 Test Item Value Reference Range Interpretation Comments SODIUM (test code = 142 mEq/L 134-147 N NA) POTASSIUM (test code 4.1 mEq/L 3.4-5.0 N = K) CHLORIDE (test code 110 mEq/L 100-108 H = CL) CARBON DIOXIDE (test 28 mEq/l 21-33 N code = CO2) ANION GAP (test code 9 0-20 N = GAP) GLUCOSE (test code = 125 mg/dL 70-110 H GLU) BLOOD UREA NITROGEN 17 mg/dL 7-18 N (test code = BUN) GLOMERULAR 95.9 80-90 H The Glomerular FILTRATION RATE Filtration R ate is a (test code = GFR) calculated parameterbased on serum Creatinine, pat ient age and sex. GFR va luesless than 60 mL/min/ 1.73 square meters a re indicative ofCh ronic Kidney Disease. Values less than 15 mL/min/1.73squa re meters indicate Kidney failure. The calculation forGFR is based on the CKD-EPI (2020) calculat ion. This formulais race indifferent and is the recommended for lela for GFRby the Nat n[facility] Kidney Found[facility] on for Adults.The GFR will not calculate if th e sex is unknown or if thepatient's ag e is <18 years. CREATININE (test 0.7 mg/dL 0.6-1.3 N code = CREAT) CALCIUM (test code = 8.8 mg/dL 8.0-10.5 N CA) HEPATIC FUNCTION [id number] 03:45:00 Test Item Value Reference Range Interpretation Comments TOTAL PROTEIN (test code = PROT) 5.4 g/dL 6.4-8.2 L ALBUMIN (test code = ALB) 2.70 g/dL 3.4-5.0 L BILIRUBIN TOTAL (test code = BILT) 1.00 mg/dL 0.0-1.0 N BILIRUBIN DIRECT (test code = 0.50 MG/DL 0.0-0.30 H BILD) SGOT/AST (test code = AST) 27 IUnit/L 15-37 N SGPT/ALT (test code = ALT) 13 IUnit/L 30-65 L ALKALINE PHOSPHATASE TOTAL (test 68 IUnit/L 20-125 N code = ALKP) BILIRUBIN INDIRECT (test code = 0.50 MG/DL BILIND) [id number] 03:45:00 Test Item Value Reference Range Interpretation Comments PHOSPHOROUS (test code = PHOS) 3.7 MG/DL 2.5-4.9 [id number] 03:45:00 Test Item Value Reference Range Interpretation Comments MAGNESIUM (test code = MAG) 2.40 mg/dL 1.80-2.40 CALCIUM [id number] 03:45:00 Test Item Value Reference Range Interpretation Comments CALCIUM IONIZED (test code = ROBERTA) 1.17 MMOL/L 1.09-1.30 N CBC W/AUTO [id number] 03:15:00 Test Item Value Reference Range Interpretation Comments WHITE BLOOD CELL (test code = 11.2 x10 3/uL 4.5-11.0 H WBC) RED BLOOD CELL (test code = 2.88 x10 6/uL 3.54-5.02 L RBC) HEMOGLOBIN (test code = HGB) 8.8 g/dL 11.0-15.0 L HEMATOCRIT (test code = HCT) 25.8 % 33.0-45.0 L MEAN CELL VOLUME (test code = 89.6 fL 81.0-99.0 N MCV) MEAN CELL HGB (test code = MCH) 30.6 pg 27.0-33.0 N MEAN CELL HGB CONCETRATION 34.1 g/dL 33.0-37.0 N (test code = MCHC) RED CELL DISTRIBUTION WIDTH CV 13.8 % 11.5-14.5 N (test code = RDW) RED CELL DISTRIBUTION WIDTH SD 45.2 fL 37.0-54.0 N (test code = RDW-SD) PLATELET COUNT (test code = 197 x10 3/uL 150-400 PLT) MEAN PLATELET VOLUME (test code 10.0 fL 7.0-9.0 H = MPV) NEUTROPHIL % (test code = NT%) 63.8 % 56.0-77.0 N IMMATURE GRANULOCYTE % (test 0.7 % 0.0-2.0 N code = IG%) LYMPHOCYTE % (test code = LY%) 27.0 % 14.0-32.0 N MONOCYTE % (test code = MO%) 6.3 % 4.8-9.0 N EOSINOPHIL % (test code = EO%) 1.9 % 0.3-3.7 N BASOPHIL % (test code = BA%) 0.3 % 0.0-2.0 N NUCLEATED RBC % (test code = 0.4 % 0-0 H NRBC%) NEUTROPHIL # (test code = NT#) 7.16 x10 3/uL 2.0-7.6 N IMMATURE GRANULOCYTE # (test 0.08 x10 3/uL 0.00-0.03 H code = IG#) LYMPHOCYTE # (test code = LY#) 3.02 x10 3/uL 1.0-3.8 N MONOCYTE # (test code = MO#) 0.70 x10 3/uL 0.1-0.8 N EOSINOPHIL # (test code = EO#) 0.21 x10 3/uL 0.0-0.2 H BASOPHIL # (test code = BA#) 0.03 x10 3/uL 0.0-0.2 N NUCLEATED RBC # (test code = 0.04 x10 3/uL 0.0-0.1 N NRBC#) MANUAL DIFF REQUIRED (test code NO = MDIFF) GLUCOSE [id number] 03:05:00 Test Item Value Reference Range Interpretation Comments GLUCOSE BEDSIDE (test 126 MG/DL 70-110 H Perfor med by certified code = GLUBED) 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[facility] - XR CHEST 1 [id number] 00:00:00 [facility] : 1955 Sex: F FAX: Reva Murrell MD [phone] [place]: St: ADM FAX: Evelin Aden [phone] Name: KALA TURPIN [facility] : 1955 Age/S: 67/F [address] [place] [address] Unit #: [id number] Loc: G5120 [place] [address] 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 Views: 1 view. COMPARISON: 1. CR XR CHEST 1V 06/19/2022 5:37 AM 2. CR XR CHEST 1V 06/18/2022 6:56 AM FINDINGS: Tubes, catheters and devices: Right internal jugular [place]-Raquel catheter sheath in place. Epicardial pacer leads and faintly opaque EKG leads overlie the chest. Lungs: Indistinct perihilar and infrahilar opacities are unchanged. Retrocardiac opacification obscuring the hemidiaphragm. Pleural spaces: Small residual left apical pneumothorax with separation approximately 8 mm, stable to diminished. Small left effusion grossly stable. Small right pleural effusion has developed. Heart/Mediastinum: The cardiomediastinal silhouette is stable. Bones/joints: Sternotomy wires are intact. IMPRESSION: 1. New small right pleural effusion. 2. Small residual left apical pneumothorax, stable to diminished. 3. Stable pulmonary opacities and left basilar pleuroparenchymal disease. at 0834 Reported and signed by: Daniel Sprague M.D. 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[facility] GLUCOSE [id number] 18:30:00 Test Item Value Reference Range Interpretation Comments GLUCOSE BEDSIDE (test 147 MG/DL 70-110 H [facility] med by certified code = GLUBED) 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[facility] BASIC METABOLIC [id number] 18:22:00 Test Item Value Reference Range Interpretation Comments SODIUM (test code = 141 mEq/L 134-147 N NA) POTASSIUM (test code 3.6 mEq/L 3.4-5.0 N = K) CHLORIDE (test code 110 mEq/L 100-108 H = CL) CARBON DIOXIDE (test 29 mEq/l 21-33 N code = CO2) ANION GAP (test code 5 0-20 N = GAP) GLUCOSE (test code = 156 mg/dL 70-110 H GLU) BLOOD UREA NITROGEN 18 mg/dL 7-18 N (test code = BUN) GLOMERULAR 95.9 80-90 H The Glomerular FILTRATION RATE Filtration R ate is a (test code = GFR) calculated parameterbased on serum Creatinine, pat ient age and sex. GFR va luesless than 60 mL/min/ 1.73 square meters a re indicative ofCh ronic Kidney Disease. Values less than 15 mL/min/1.73squa re meters indicate Kidney failure. The calculation forGFR is based on the CKD-EPI (2020) calculat ion. This formulais race indifferent and is the recommended for lela for GFRby the [facility] Kidney Foundati on for Adults.The GFR will not calculate if th e sex is unknown or if thepatient's ag e is <18 years. CREATININE (test 0.7 mg/dL 0.6-1.3 N code = CREAT) CALCIUM (test code = 9.0 mg/dL 8.0-10.5 N CA) [id number] 18:22:00 Test Item Value Reference Range Interpretation Comments PHOSPHOROUS (test code = PHOS) 1.9 MG/DL 2.5-4.9 L [id number] 18:22:00 Test Item Value Reference Range Interpretation Comments MAGNESIUM (test code = MAG) 1.86 mg/dL 1.80-2.40 N CALCIUM [id number] 18:22:00 Test Item Value Reference Range Interpretation Comments CALCIUM IONIZED (test code = ROBERTA) 1.21 MMOL/L 1.09-1.30 N GLUCOSE [id number] 04:56:00 Test Item Value Reference Range Interpretation Comments GLUCOSE BEDSIDE (test 165 MG/DL 70-110 H [facility] med by certified code = GLUBED) 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[facility] BASIC METABOLIC [id number] 04:08:00 Test Item Value Reference Range Interpretation Comments SODIUM (test code = 139 mEq/L 134-147 N NA) POTASSIUM (test code 4.0 mEq/L 3.4-5.0 N = K) CHLORIDE (test code 108 mEq/L 100-108 N = CL) CARBON DIOXIDE (test 27 mEq/l 21-33 N code = CO2) ANION GAP (test code 8 0-20 N = GAP) GLUCOSE (test code = 181 mg/dL 70-110 H GLU) BLOOD UREA NITROGEN 19 mg/dL 7-18 H (test code = BUN) GLOMERULAR 95.9 80-90 H The Glomerular FILTRATION RATE Filtration R ate is a (test code = GFR) calculated parameterbased on serum Creatinine, pat ient age and sex. GFR va luesless than 60 mL/min/ 1.73 square meters a re indicative ofCh ronic Kidney Disease. Values less than 15 mL/min/1.73squa re meters indicate Kidney failure. The calculation forGFR is based on the CKD-EPI (2020) calculat ion. This formulais race indifferent and is the recommended for lela for GFRby the [facility] Kidney Foundati on for Adults.The GFR will not calculate if th e sex is unknown or if thepatient's ag e is <18 years. CREATININE (test 0.7 mg/dL 0.6-1.3 N code = CREAT) CALCIUM (test code = 9.0 mg/dL 8.0-10.5 N CA) COMMENTS: POD #1HEPATIC FUNCTION [id number] 04:08:00 Test Item Value Reference Range Interpretation Comments TOTAL PROTEIN (test code = PROT) 5.3 g/dL 6.4-8.2 L ALBUMIN (test code = ALB) 2.80 g/dL 3.4-5.0 L BILIRUBIN TOTAL (test code = BILT) 1.10 mg/dL 0.0-1.0 H BILIRUBIN DIRECT (test code = 0.50 MG/DL 0.0-0.30 H BILD) BILIRUBIN INDIRECT (test code = 0.60 MG/DL BILIND) SGOT/AST (test code = AST) 39 IUnit/L 15-37 H SGPT/ALT (test code = ALT) 14 IUnit/L 30-65 L ALKALINE PHOSPHATASE TOTAL (test 61 IUnit/L 20-125 N code = ALKP) COMMENTS: POD #[id number] 04:08:00 Test Item Value Reference Range Interpretation Comments MAGNESIUM (test code = MAG) 1.78 mg/dL 1.80-2.40 L COMMENTS: POD #1CBC W/AUTO [id number] 04:00:00 Test Item Value Reference Range Interpretation Comments WHITE BLOOD CELL (test code = 10.3 x10 3/uL 4.5-11.0 N WBC) RED BLOOD CELL (test code = 2.80 x10 6/uL 3.54-5.02 L RBC) HEMOGLOBIN (test code = HGB) 8.5 g/dL 11.0-15.0 L HEMATOCRIT (test code = HCT) 25.1 % 33.0-45.0 L MEAN CELL VOLUME (test code = 89.6 fL 81.0-99.0 N MCV) MEAN CELL HGB (test code = MCH) 30.4 pg 27.0-33.0 N MEAN CELL HGB CONCETRATION 33.9 g/dL 33.0-37.0 N (test code = MCHC) RED CELL DISTRIBUTION WIDTH CV 14.1 % 11.5-14.5 N (test code = RDW) RED CELL DISTRIBUTION WIDTH SD 46.2 fL 37.0-54.0 N (test code = RDW-SD) PLATELET COUNT (test code = 104 x10 3/uL 150-400 L PLT) MEAN PLATELET VOLUME (test code 10.7 fL 7.0-9.0 H = MPV) NEUTROPHIL % (test code = NT%) 74.7 % 56.0-77.0 N IMMATURE GRANULOCYTE % (test 0.9 % 0.0-2.0 N code = IG%) LYMPHOCYTE % (test code = LY%) 17.0 % 14.0-32.0 N MONOCYTE % (test code = MO%) 5.1 % 4.8-9.0 N EOSINOPHIL % (test code = EO%) 2.0 % 0.3-3.7 N BASOPHIL % (test code = BA%) 0.3 % 0.0-2.0 N NUCLEATED RBC % (test code = 0.2 % 0-0 H NRBC%) NEUTROPHIL # (test code = NT#) 7.68 x10 3/uL 2.0-7.6 H IMMATURE GRANULOCYTE # (test 0.09 x10 3/uL 0.00-0.03 H code = IG#) LYMPHOCYTE # (test code = LY#) 1.75 x10 3/uL 1.0-3.8 N MONOCYTE # (test code = MO#) 0.52 x10 3/uL 0.1-0.8 N EOSINOPHIL # (test code = EO#) 0.21 x10 3/uL 0.0-0.2 H BASOPHIL # (test code = BA#) 0.03 x10 3/uL 0.0-0.2 N NUCLEATED RBC # (test code = 0.02 x10 3/uL 0.0-0.1 N NRBC#) MANUAL DIFF REQUIRED (test code NO = MDIFF) GLUCOSE [id number] 02:10:00 Test Item Value Reference Range Interpretation Comments GLUCOSE BEDSIDE (test 146 MG/DL 70-110 H Perfor med by certified code = GLUBED) 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[facility] GLUCOSE [id number] 00:21:00 Test Item Value Reference Range Interpretation Comments GLUCOSE BEDSIDE (test 125 MG/DL 70-110 H Perfor med by certified code = GLUBED) 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[facility] - XR CHEST 1 [id number] 00:00:00 [facility] : 1955 Sex: F FAX: Reva Murrell MD [phone] [place]: St: ADM FAX: Evelin Aden [phone] Name: KALA TURPIN [facility] : 1955 Age/S: 67/F [address] [place] [address] Unit #: [id number] Loc: G.[address] [place] [address] 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 Views: 1 view. COMPARISON: 1. CR XR CHEST 1V 06/18/2022 6:56 AM 2. CR XR CHEST 1V 06/17/2022 6:21 AM FINDINGS: Tubes, catheters and devices: Right IJ [place]quel catheter sheath in place. Mediastinal and left thoracostomy drains have been removed. Lungs: Indistinct perihilar and infrahilar opacities are unchanged. Bandlike opacity left mid lung zone compatible with subsegmentalatelectasis. Left basilar opacities obscuring the hemidiaphragm are unchanged. Pleural spaces: Small left apical pneumothorax redemonstrated with separation approximately 1 cm, unchanged. Left pleural effusion/thickening unchanged. Heart/Mediastinum: The cardiomediastinal silhouette is stable. Bones/joints: Sternotomy wires are intact. IMPRESSION: 1. Stable postoperative chest following drainage tube removal. 2. Small residual left apical pneumothorax, unchanged. 3. Stable pulmonary opacities and left basilar pleuroparenchymal disease. at 0842 Reported and signed by: Daniel Sprague M.D. 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[facility] BASIC METABOLIC [id number] 16:24:00 Test Item Value Reference Range Interpretation Comments SODIUM (test code = 141 mEq/L 134-147 N NA) POTASSIUM (test code 4.2 mEq/L 3.4-5.0 N = K) CHLORIDE (test code 110 mEq/L 100-108 H = CL) CARBON DIOXIDE (test 26 mEq/l 21-33 N code = CO2) ANION GAP (test code 9 0-20 N = GAP) GLUCOSE (test code = 184 mg/dL 70-110 H GLU) BLOOD UREA NITROGEN 23 mg/dL 7-18 H (test code = BUN) GLOMERULAR 71.0 80-90 L The Glomerular FILTRATION RATE Filtration R ate is a (test code = GFR) calculated parameterbased on serum Creatinine, pat ient age and sex. GFR va luesless than 60 mL/min/ 1.73 square meters a re indicative ofCh ronic Kidney Disease. Values less than 15 mL/min/1.73squa re meters indicate Kidney failure. The calculation forGFR is based on the CKD-EPI (2020) calculat ion. This formulais race indifferent and is the recommended for lela for GFRby the [facility] Kidney Foundati on for Adults.The GFR will not calculate if th e sex is unknown or if thepatient's ag e is <18 years. CREATININE (test 0.9 mg/dL 0.6-1.3 N code = CREAT) CALCIUM (test code = 8.9 mg/dL 8.0-10.5 N CA) POC ARTERIAL BLOOD [id number] 16:03:00 Test Item Value Reference Range Interpretation Comments POC ARTERIAL BLOOD GAS PH (test 7.436 7.35-7.45 N code = POCPHA) POC ARTERIAL BLOOD GAS PCO2 (test 41.2 mmHg 35.0-45 N code = [id number]) POC TCO2 ARTERIAL (test code = 28.9 POCTCO2) POC ARTERIAL BLOOD GAS PO2 (test 93.6 mmHg 80-100.0 N code = SCVBO6A) POC HCO3 ARTERIAL (test code = 27.7 MMOL/L 22.0-26.0 H KBRSKQ5G) POC BASE EXCESS (test code = 3.5 MMOL/L -4.0-4.0 N POCBEA) POC O2 SATURATION (test code = 97.4 % 90-100 N POCO2S) ABG DELIVERY (test code = HUNTER) Cannula ABG TEMPERATURE (test code = 99 F TEMPA) ABG SITE (test code = SITEA) Art Line BASIC METABOLIC [id number] 16:03:00 Test Item Value Reference Range Interpretation Comments SODIUM (test code = NA/ABG) 140 mmol/L 134-147 N POTASSIUM (test code = K/ABG) 4.1 mmol/L 3.4-5.0 N CHLORIDE (test code = CL/ABG) 104 mmol/L 100-108 N CREATININE ABG (test code = 0.6 mg/dL 0.6-1.0 CREAABG) POC IONIZED CALCIUM (test code = 1.34 MMOL/L 1.12-1.32 H POCCA) POC GLUCOSE (test code = POCGLU) 175 MG/DL 70-110 H HEMOGLOBIN [id number] 16:03:00 Test Item Value Reference Range Interpretation Comments HEMOGLOBIN ABG (test code = HGB/ABG) 8.1 G/DL 11.0-15.0 L [id number] 16:03:00 Test Item Value Reference Range Interpretation Comments HEMATOCRIT (test code = HCT/ABG) 24 % 33.0-45.0 L POC LACTIC [id number] 16:03:00 Test Item Value Reference Range Interpretation Comments POC LACTIC ACID (test code = 0.8 mmol/l 0.9-1.7 L POCLAC) GLUCOSE [id number] 15:56:00 Test Item Value Reference Range Interpretation Comments GLUCOSE BEDSIDE (test 163 MG/DL 70-110 H Perfor med by certified code = GLUBED) 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[facility] GLUCOSE [id number] 11:59:00 Test Item Value Reference Range Interpretation Comments GLUCOSE BEDSIDE (test 152 MG/DL 70-110 H Perfor med by certified code = GLUBED) 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[facility] GLUCOSE [id number] 07:58:00 Test Item Value Reference Range Interpretation Comments GLUCOSE BEDSIDE (test 193 MG/DL 70-110 H Perfor med by certified code = GLUBED) 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[facility] BASIC METABOLIC [id number] 03:37:00 Test Item Value Reference Range Interpretation Comments SODIUM (test code = 141 mEq/L 134-147 N NA) POTASSIUM (test code 4.4 mEq/L 3.4-5.0 N = K) CHLORIDE (test code 111 mEq/L 100-108 H = CL) CARBON DIOXIDE (test 26 mEq/l 21-33 N code = CO2) ANION GAP (test code 9 0-20 N = GAP) GLUCOSE (test code = 203 mg/dL 70-110 H GLU) BLOOD UREA NITROGEN 19 mg/dL 7-18 H (test code = BUN) GLOMERULAR 62.5 80-90 L The Glomerular FILTRATION RATE Filtration R ate is a (test code = GFR) calculated parameterbased on serum Creatinine, pat ient age and sex. GFR va luesless than 60 mL/min/ 1.73 square meters a re indicative ofCh ronic Kidney Disease. Values less than 15 mL/min/1.73squa re meters indicate Kidney failure. The calculation forGFR is based on the CKD-EPI (2020) calculat ion. This formulais race indifferent and is the recommended for lela for GFRby the [facility] for Adults.The GFR will not calculate if th e sex is unknown or if thepatient's ag e is <18 years. CREATININE (test 1.0 mg/dL 0.6-1.3 N code = CREAT) CALCIUM (test code = 8.8 mg/dL 8.0-10.5 N CA) COMMENTS: POD #1HEPATIC FUNCTION [id number] 03:37:00 Test Item Value Reference Range Interpretation Comments TOTAL PROTEIN (test code = PROT) 5.8 g/dL 6.4-8.2 L ALBUMIN (test code = ALB) 3.40 g/dL 3.4-5.0 N BILIRUBIN TOTAL (test code = BILT) 1.00 mg/dL 0.0-1.0 BILIRUBIN DIRECT (test code = 0.50 MG/DL 0.0-0.30 H BILD) BILIRUBIN INDIRECT (test code = 0.50 MG/DL BILIND) SGOT/AST (test code = AST) 55 IUnit/L 15-37 H SGPT/ALT (test code = ALT) 13 IUnit/L 30-65 L ALKALINE PHOSPHATASE TOTAL (test 59 IUnit/L 20-125 N code = ALKP) COMMENTS: POD #[id number] 03:37:00 Test Item Value Reference Range Interpretation Comments MAGNESIUM (test code = MAG) 2.21 mg/dL 1.80-2.40 COMMENTS: POD #1T4 [id number] 03:37:00 Test Item Value Reference Range Interpretation Comments T4 FREE (test code = T4F) 1.2 ng/dL 0.77-1.61 N COMMENTS: POD #1THYROID STIMULATING [id number] 03:37:00 Test Item Value Reference Range Interpretation Comments THYROID STIMULATING 0.38 0.42-5.47 L Results in HORMONE (test code = TSH) mi lli-International Units/mL COMMENTS: POD #1CBC W/AUTO [id number] 02:45:00 Test Item Value Reference Range Interpretation Comments WHITE BLOOD CELL (test code = 14.2 x10 3/uL 4.5-11.0 H WBC) RED BLOOD CELL (test code = 2.96 x10 6/uL 3.54-5.02 L RBC) HEMOGLOBIN (test code = HGB) 9.0 g/dL 11.0-15.0 L HEMATOCRIT (test code = HCT) 26.9 % 33.0-45.0 L MEAN CELL VOLUME (test code = 90.9 fL 81.0-99.0 N MCV) MEAN CELL HGB (test code = 30.4 pg 27.0-33.0 N MCH) MEAN CELL HGB CONCETRATION 33.5 g/dL 33.0-37.0 N (test code = MCHC) RED CELL DISTRIBUTION WIDTH CV 14.7 % 11.5-14.5 H (test code = RDW) RED CELL DISTRIBUTION WIDTH SD 49.1 fL 37.0-54.0 N (test code = RDW-SD) PLATELET COUNT (test code = 90 x10 3/uL 150-400 L PLT) MEAN PLATELET VOLUME (test 10.9 fL 7.0-9.0 H code = MPV) NEUTROPHIL % (test code = NT%) 80.1 % 56.0-77.0 H IMMATURE GRANULOCYTE % (test 0.7 % 0.0-2.0 N code = IG%) LYMPHOCYTE % (test code = LY%) 12.5 % 14.0-32.0 L MONOCYTE % (test code = MO%) 6.3 % 4.8-9.0 N EOSINOPHIL % (test code = EO%) 0.2 % 0.3-3.7 L BASOPHIL % (test code = BA%) 0.2 % 0.0-2.0 N NUCLEATED RBC % (test code = 0.1 % 0-0 H NRBC%) NEUTROPHIL # (test code = NT#) 11.34 x10 3/uL 2.0-7.6 H IMMATURE GRANULOCYTE # (test 0.10 x10 3/uL 0.00-0.03 H code = IG#) LYMPHOCYTE # (test code = LY#) 1.77 x10 3/uL 1.0-3.8 N MONOCYTE # (test code = MO#) 0.89 x10 3/uL 0.1-0.8 H EOSINOPHIL # (test code = EO#) 0.03 x10 3/uL 0.0-0.2 N BASOPHIL # (test code = BA#) 0.03 x10 3/uL 0.0-0.2 N NUCLEATED RBC # (test code = 0.02 x10 3/uL 0.0-0.1 N NRBC#) MANUAL DIFF REQUIRED (test NO code = MDIFF) POC ARTERIAL BLOOD [id number] 02:38:00 Test Item Value Reference Range Interpretation Comments POC ARTERIAL BLOOD GAS PH (test 7.317 7.35-7.45 L code = POCPHA) POC ARTERIAL BLOOD GAS PCO2 (test 54.1 mmHg 35.0-45 HH code = CAURML0T) POC TCO2 ARTERIAL (test code = 29.4 POCTCO2) POC ARTERIAL BLOOD GAS PO2 (test 83.3 mmHg 80-100.0 N code = [id number]) POC HCO3 ARTERIAL (test code = 27.7 MMOL/L 22.0-26.0 H [id number]) POC BASE EXCESS (test code = 1.6 MMOL/L -4.0-4.0 N POCBEA) POC O2 SATURATION (test code = 94.9 % 90-100 N POCO2S) ABG DELIVERY (test code = HUNTER) HFNC ABG SITE (test code = SITEA) Art Line BASIC METABOLIC [id number] 02:38:00 Test Item Value Reference Range Interpretation Comments SODIUM (test code = NA/ABG) 140 mmol/L 134-147 N POTASSIUM (test code = K/ABG) 4.2 mmol/L 3.4-5.0 N CHLORIDE (test code = CL/ABG) 106 mmol/L 100-108 N CREATININE ABG (test code = 1.0 mg/dL 0.6-1.0 N CREAABG) POC IONIZED CALCIUM (test code = 1.35 MMOL/L 1.12-1.32 H POCCA) POC GLUCOSE (test code = POCGLU) 206 MG/DL 70-110 H HEMOGLOBIN [id number] 02:38:00 Test Item Value Reference Range Interpretation Comments HEMOGLOBIN ABG (test code = HGB/ABG) 8.5 G/DL 11.0-15.0 L [id number] 02:38:00 Test Item Value Reference Range Interpretation Comments HEMATOCRIT (test code = HCT/ABG) 25 % 33.0-45.0 L POC LACTIC [id number] 02:38:00 Test Item Value Reference Range Interpretation Comments POC LACTIC ACID (test code = 0.8 mmol/l 0.9-1.7 L POCLAC) GLUCOSE [id number] 00:44:00 Test Item Value Reference Range Interpretation Comments GLUCOSE BEDSIDE (test 176 MG/DL 70-110 H Perfor med by certified code = GLUBED) 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[facility] - XR CHEST 1 [id number] 00:00:00 JOINT VENTURE BETWEEN [facility] : 1955 Sex: F FAX: Reva Murrell MD [phone] [place]: St: ADM FAX: Evelin Aden [phone] Name: PAPIKALA TEE [facility] : 1955 Age/S: 67/F [address] [place] [address] Unit #: [id number] Loc: G.[address] [place] [address] 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 Views: 1 view. COMPARISON: CR XR CHEST 1V 06/17/2022 6:21 AM FINDINGS: Tubes, catheters and devices: Right neck dialysis catheter tip is positioned over the proximal SVC region. Left large bore chest tube is demonstrated. Lungs: Lung volumes are decreased. Bpuw-ud-umukyyxx bi lateral perihilar and basilar interstitial lung opacities, suggesting pulmonary edema versus infiltrates. The peripheral lungs are otherwise clear. The pulmonary opacities are most prominent within thelower left lung. Linear density identified within the left perihilar lung. Pleural spaces: Small left-sided pneumothorax is demonstrated. Left-sided pneumothorax measurement: 12-13 mm thickness withinleft apical chest. No other pleural effusion or pneumothorax identified. Heart/Mediastinum: Cardiac silhouette appears mildly enlarged. Bones/joints: Sternotomy wires, hardware is demonstrated. Mild generalized bony degenerative changes. Soft tissues: This study is limited by patient's body habitus. Other findings: Limited evaluation with patient rotation. IMPRESSION: 1. Mild enlarged cardiac silhouette. 2. Tdju-ly-mlxfpbup pulmonary edema versus infiltrates. 3. Linear left perihilar pulmonary atelectasis, scarring. Decreased lung volumes. 4. Left-sided chest tube with small in the thorax in the left apical chest. at 1028 Reported and signed by: Victor Manuel Mcallister M.D. 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 Acct: [id number] Dis Date: Status: ADM IN PHONE #: [phone] Exam Date:06/18/2022904 FAX #: [phone] Reason: Cardiac Surgery Post Op EXAMS: CPT CODE: [id number] XR CHEST 1 V 82251 (Continued) CC: Reva Murrell MD; Kassie Moore FINISH REPAIR WORKER Technologist: Fermin Cunningham; Serina Mary, RT(R) Trnscrd Date/Time/By: 06/18/2022 (1028) : By: [email or web address] Orig Print D/T: S:06/18/2022 (3240) PAGE 2 Signed ReportGLUCOSE [id number] 20:31:00 Test Item Value Reference Range Interpretation Comments GLUCOSE BEDSIDE (test 156 MG/DL 70-110 H Perfor med by certified code = GLUBED) 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[facility] GLUCOSE [id number] 18:10:00 Test Item Value Reference Range Interpretation Comments GLUCOSE BEDSIDE (test 155 MG/DL 70-110 H Perfor med by certified code = GLUBED) 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[facility] GLUCOSE [id number] 16:13:00 Test Item Value Reference Range Interpretation Comments GLUCOSE BEDSIDE (test 182 MG/DL 70-110 H Perfor med by certified code = GLUBED) 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[facility] GLUCOSE [id number] 14:10:00 Test Item Value Reference Range Interpretation Comments GLUCOSE BEDSIDE (test 172 MG/DL 70-110 H Perfor med by certified code = GLUBED) 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[facility] BASIC METABOLIC [id number] 13:34:00 Test Item Value Reference Range Interpretation Comments SODIUM (test code = 142 mEq/L 134-147 N NA) POTASSIUM (test code 4.2 mEq/L 3.4-5.0 N = K) CHLORIDE (test code 111 mEq/L 100-108 H = CL) CARBON DIOXIDE (test 25 mEq/l 21-33 N code = CO2) ANION GAP (test code 10 0-20 N = GAP) GLUCOSE (test code = 188 mg/dL 70-110 H GLU) BLOOD UREA NITROGEN 19 mg/dL 7-18 H (test code = BUN) GLOMERULAR 50.2 80-90 L The Glomerular FILTRATION RATE Filtration R ate is a (test code = GFR) calculated parameterbased on serum Creatinine, pat ient age and sex. GFR va luesless than 60 mL/min/ 1.73 square meters a re indicative ofCh ronic Kidney Disease. Values less than 15 mL/min/1.73squa re meters indicate Kidney failure. The calculation forGFR is based on the CKD-EPI (2020) calculat ion. This formulais race indifferent and is the recommended for lela for GFRby the [facility] on for Adults.The GFR will not calculate if th e sex is unknown or if thepatient's ag e is <18 years. 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[facility] GLUCOSE [id number] 08:21:00 Test Item Value Reference Range Interpretation Comments GLUCOSE BEDSIDE (test 178 MG/DL 70-110 H Perfor med by certified code = GLUBED) 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[facility] BASIC METABOLIC [id number] 03:41:00 Test Item Value Reference Range Interpretation Comments SODIUM (test code = 146 mEq/L 134-147 N NA) POTASSIUM (test code 4.8 mEq/L 3.4-5.0 N = K) CHLORIDE (test code 115 mEq/L 100-108 H = CL) CARBON DIOXIDE (test 27 mEq/l 21-33 N code = CO2) ANION GAP (test code 9 0-20 N = GAP) GLUCOSE (test code = 258 mg/dL 70-110 H GLU) BLOOD UREA NITROGEN 18 mg/dL 7-18 N (test code = BUN) GLOMERULAR 62.5 80-90 L The Glomerular FILTRATION RATE Filtration R ate is a (test code = GFR) calculated parameterbased on serum Creatinine, pat ient age and sex. GFR va luesless than 60 mL/min/ 1.73 square meters a re indicative ofCh ronic Kidney Disease. Values less than 15 mL/min/1.73squa re meters indicate Kidney failure. The calculation forGFR is based on the CKD-EPI (2020) calculat ion. This formulais race indifferent and is the recommended for lela for GFRby the [facility] Foundati on for Adults.The GFR will not calculate if th e sex is unknown or if thepatient's ag e is <18 years. CREATININE (test 1.0 mg/dL 0.6-1.3 N code = CREAT) CALCIUM (test code = 8.4 mg/dL 8.0-10.5 N CA) COMMENTS: POD #1HEPATIC FUNCTION [id number] 03:41:00 Test Item Value Reference Range Interpretation Comments TOTAL PROTEIN (test code = PROT) 5.3 g/dL 6.4-8.2 L ALBUMIN (test code = ALB) 3.40 g/dL 3.4-5.0 N BILIRUBIN TOTAL (test code = BILT) 0.60 mg/dL 0.0-1.0 N BILIRUBIN DIRECT (test code = 0.30 MG/DL 0.0-0.30 N BILD) SGOT/AST (test code = AST) 51 IUnit/L 15-37 H SGPT/ALT (test code = ALT) 15 IUnit/L 30-65 L ALKALINE PHOSPHATASE TOTAL (test 51 IUnit/L 20-125 code = ALKP) BILIRUBIN INDIRECT (test code = 0.30 MG/DL BILIND) COMMENTS: POD #[id number] 03:41:00 Test Item Value Reference Range Interpretation Comments MAGNESIUM (test code = MAG) 1.87 mg/dL 1.80-2.40 COMMENTS: POD #1CALCIUM [id number] 03:41:00 Test Item Value Reference Range Interpretation Comments CALCIUM IONIZED (test code = ROBERTA) 1.18 MMOL/L 1.09-1.30 N COMMENTS: POD #1POC ARTERIAL BLOOD [id number] 03:38:00 Test Item Value Reference Range Interpretation Comments POC ARTERIAL BLOOD GAS PH (test 7.336 7.35-7.45 L code = POCPHA) POC ARTERIAL BLOOD GAS PCO2 (test 48.3 mmHg 35.0-45 H code = [id number]) POC TCO2 ARTERIAL (test code = 27.2 POCTCO2) POC ARTERIAL BLOOD GAS PO2 (test 127.7 mmHg 80-100.0 H code = JBOHR9L) POC HCO3 ARTERIAL (test code = 25.8 MMOL/L 22.0-26.0 N VBTLIL2Y) POC BASE EXCESS (test code = 0.0 MMOL/L -4.0-4.0 N POCBEA) POC O2 SATURATION (test code = 98.6 % 90-100 N POCO2S) ABG DELIVERY (test code = HUNTER) HFNC ABG TEMPERATURE (test code = 99.1 F TEMPA) ABG SITE (test code = SITEA) Art Line BASIC METABOLIC [id number] 03:38:00 Test Item Value Reference Range Interpretation Comments SODIUM (test code = NA/ABG) 145 mmol/L 134-147 N POTASSIUM (test code = K/ABG) 4.7 mmol/L 3.4-5.0 N CHLORIDE (test code = CL/ABG) 106 mmol/L 100-108 N CREATININE ABG (test code = 1.0 mg/dL 0.6-1.0 CREAABG) POC IONIZED CALCIUM (test code = 1.22 MMOL/L 1.12-1.32 N POCCA) POC GLUCOSE (test code = POCGLU) 237 MG/DL 70-110 H HEMOGLOBIN [id number] 03:38:00 Test Item Value Reference Range Interpretation Comments HEMOGLOBIN ABG (test code = HGB/ABG) 7.7 G/DL 11.0-15.0 L [id number] 03:38:00 Test Item Value Reference Range Interpretation Comments HEMATOCRIT (test code = HCT/ABG) 23 % 33.0-45.0 L POC LACTIC [id number] 03:38:00 Test Item Value Reference Range Interpretation Comments POC LACTIC ACID (test code = 1.4 mmol/l 0.9-1.7 N POCLAC) CBC W/AUTO [id number] 03:27:00 Test Item Value Reference Range Interpretation Comments WHITE BLOOD CELL (test code = 12.5 x10 3/uL 4.5-11.0 H WBC) RED BLOOD CELL (test code = 2.64 x10 6/uL 3.54-5.02 L RBC) HEMOGLOBIN (test code = HGB) 8.0 g/dL 11.0-15.0 L HEMATOCRIT (test code = HCT) 23.5 % 33.0-45.0 L MEAN CELL VOLUME (test code = 89.0 fL 81.0-99.0 N MCV) MEAN CELL HGB (test code = 30.3 pg 27.0-33.0 N MCH) MEAN CELL HGB CONCETRATION 34.0 g/dL 33.0-37.0 N (test code = MCHC) RED CELL DISTRIBUTION WIDTH CV 14.2 % 11.5-14.5 N (test code = RDW) RED CELL DISTRIBUTION WIDTH SD 46.0 fL 37.0-54.0 N (test code = RDW-SD) PLATELET COUNT (test code = 77 x10 3/uL 150-400 L PLT) MEAN PLATELET VOLUME (test 11.1 fL 7.0-9.0 H code = MPV) NEUTROPHIL % (test code = NT%) 85.1 % 56.0-77.0 H IMMATURE GRANULOCYTE % (test 0.4 % 0.0-2.0 N code = IG%) LYMPHOCYTE % (test code = LY%) 6.9 % 14.0-32.0 L MONOCYTE % (test code = MO%) 7.5 % 4.8-9.0 N EOSINOPHIL % (test code = EO%) 0.0 % 0.3-3.7 L BASOPHIL % (test code = BA%) 0.1 % 0.0-2.0 N NUCLEATED RBC % (test code = 0.0 % 0-0 N NRBC%) NEUTROPHIL # (test code = NT#) 10.68 x10 3/uL 2.0-7.6 H IMMATURE GRANULOCYTE # (test 0.05 x10 3/uL 0.00-0.03 H code = IG#) LYMPHOCYTE # (test code = LY#) 0.86 x10 3/uL 1.0-3.8 L MONOCYTE # (test code = MO#) 0.94 x10 3/uL 0.1-0.8 H EOSINOPHIL # (test code = EO#) 0.00 x10 3/uL 0.0-0.2 N BASOPHIL # (test code = BA#) 0.01 x10 3/uL 0.0-0.2 N NUCLEATED RBC # (test code = 0.00 x10 3/uL 0.0-0.1 N NRBC#) MANUAL DIFF REQUIRED (test NO code = MDIFF) GLUCOSE [id number] 02:32:00 Test Item Value Reference Range Interpretation Comments GLUCOSE BEDSIDE (test 222 MG/DL 70-110 H Perfor med by certified code = GLUBED) 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[facility] BASIC METABOLIC [id number] 00:11:00 Test Item Value Reference Range Interpretation Comments SODIUM (test code = 148 mEq/L 134-147 H NA) POTASSIUM (test code 4.7 mEq/L 3.4-5.0 N = K) CHLORIDE (test code 116 mEq/L 100-108 H = CL) CARBON DIOXIDE (test 26 mEq/l 21-33 N code = CO2) ANION GAP (test code 11 0-20 N = GAP) GLUCOSE (test code = 210 mg/dL 70-110 H GLU) BLOOD UREA NITROGEN 17 mg/dL 7-18 N (test code = BUN) GLOMERULAR 62.5 80-90 L The Glomerular FILTRATION RATE Filtration R ate is a (test code = GFR) calculated parameterbased on serum Creatinine, pat ient age and sex. GFR va luesless than 60 mL/min/ 1.73 square meters a re indicative ofCh ronic Kidney Disease. Values less than 15 mL/min/1.73squa re meters indicate Kidney failure. The calculation forGFR is based on the CKD-EPI (2020) calculat ion. This formulais race indifferent and is the recommended for lela for GFRby the [facility] Found[facility] on for Adults.The GFR will not calculate if th e sex is unknown or if thepatient's ag e is <18 years. CREATININE (test 1.0 mg/dL 0.6-1.3 N code = CREAT) CALCIUM (test code = 8.3 mg/dL 8.0-10.5 N CA) CBC W/AUTO [id number] 00:00:00 Test Item Value Reference Range Interpretation Comments WHITE BLOOD CELL (test code = 10.5 x10 3/uL 4.5-11.0 N WBC) RED BLOOD CELL (test code = 2.68 x10 6/uL 3.54-5.02 L RBC) HEMOGLOBIN (test code = HGB) 8.1 g/dL 11.0-15.0 L HEMATOCRIT (test code = HCT) 23.6 % 33.0-45.0 L MEAN CELL VOLUME (test code = 88.1 fL 81.0-99.0 N MCV) MEAN CELL HGB (test code = MCH) 30.2 pg 27.0-33.0 N MEAN CELL HGB CONCETRATION 34.3 g/dL 33.0-37.0 N (test code = MCHC) RED CELL DISTRIBUTION WIDTH CV 13.8 % 11.5-14.5 N (test code = RDW) RED CELL DISTRIBUTION WIDTH SD 44.2 fL 37.0-54.0 N (test code = RDW-SD) PLATELET COUNT (test code = 75 x10 3/uL 150-400 L PLT) MEAN PLATELET VOLUME (test code 10.7 fL 7.0-9.0 H = MPV) NEUTROPHIL % (test code = NT%) 87.7 % 56.0-77.0 H IMMATURE GRANULOCYTE % (test 0.3 % 0.0-2.0 N code = IG%) LYMPHOCYTE % (test code = LY%) 6.3 % 14.0-32.0 L MONOCYTE % (test code = MO%) 5.5 % 4.8-9.0 N EOSINOPHIL % (test code = EO%) 0.0 % 0.3-3.7 L BASOPHIL % (test code = BA%) 0.2 % 0.0-2.0 N NUCLEATED RBC % (test code = 0.0 % 0-0 N NRBC%) NEUTROPHIL # (test code = NT#) 9.19 x10 3/uL 2.0-7.6 H IMMATURE GRANULOCYTE # (test 0.03 x10 3/uL 0.00-0.03 N code = IG#) LYMPHOCYTE # (test code = LY#) 0.66 x10 3/uL 1.0-3.8 L MONOCYTE # (test code = MO#) 0.58 x10 3/uL 0.1-0.8 N EOSINOPHIL # (test code = EO#) 0.00 x10 3/uL 0.0-0.2 N BASOPHIL # (test code = BA#) 0.02 x10 3/uL 0.0-0.2 N NUCLEATED RBC # (test code = 0.00 x10 3/uL 0.0-0.1 N NRBC#) MANUAL DIFF REQUIRED (test code NO = MDIFF) - XR CHEST 1 [id number] 00:00:00 [facility] : 1955 Sex: F FAX: Reva Murrell MD [phone] [place]: St: ADM FAX: Evelin Aden [phone] Name: PAPIKALA TEE [facility] : 1955 Age/S: 67/F [address] [place] [address] Unit #: [id number] Loc: G.[address] [place] [address] 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 Views: 1 view. Portable technique, shallow inspiration. COMPARISON: CR XR CHEST 1V 06/16/2022 1:57 PM FINDINGS: Tubes, catheters and devices: Right jugular catheter over the SVC. Drain over the left base. Lungs: Stable left juxtahilar subsegmental atelectasis. Similar opacity over the medial left base. Pleural spaces: No pleural fluid or gas. Heart/Mediastinum: Stable cardiomegaly. Bones/joints: Sternotomy. No significant skeletal abnormality. IMPRESSION: Shallow inspirationwith mild atelectatic changes primarily on the left. at 0906 Reported and signed by: Alfonso Garay M.D. CC: Reva Murrell MD; Kassie Aden NP Technologist: RT Lauri(Charmaine) Trnscrd Date/Time/By: 06/17/2022 (905) : By: [email or web address] Orig Print D/T: S: 06/17/2022 (905) PAGE 1 Signed Report- XR ABDOMEN 1V (KUB)2022-06-17 00:00:00 [facility] : 1955 Sex: F FAX: Reva Murrell MD [phone] [place]: St: [facility] FAX: Tony Ruby MD [phone] Name: [facility] : 1955 Age/S: 67/F [address] [place] [address] Unit #: [id number] Loc: Nena2205 [place], [place] [address]Ixxc: Tony Ruby MD Acct: [id number] Dis Date: Status: ADM IN PHONE #: [phone] Exam Date: 06/16/2022830 FAX #: [phone] Reason: S/P CABG, BURPING, NAUSEA EXAMS: CPT CODE: [id number] XR ABDOMEN 1V (KUB) 10358 PROCEDURE INFORMATION: Exam: XR Abdomen Exam date and time: 06/17/2022 12:00 AM Age: 67 years old Clinical indication: Bloating and vomiting; Additional info: S/P cabg, burping, nausea TECHNIQUE: Imaging protocol: Radiologic exam of the abdomen. Views: Frontal supine view of theabdomen. 1 View. COMPARISON: CR XR CHEST 1V 06/16/2022 1:57 PM FINDINGS: Gastrointestinal tract: There is a non-obstructive bowel gas pattern. There is no abnormal dilatation of bowel loops. There is no pneumatosis or mass effect. Moderate to large amount of stool is noted in the colon. Bones/joints: Unremarkable. Soft tissues: No abnormal radiopaque densities. IMPRESSION: No acute findings. at 0132 Reported and signed by: Franklin Cheng M.D. 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[facility] CBC W/AUTO [id number] 18:54:00 Test Item Value Reference Range Interpretation Comments WHITE BLOOD CELL (test code = 9.8 x10 3/uL 4.5-11.0 WBC) RED BLOOD CELL (test code = 2.14 x10 6/uL 3.54-5.02 L RBC) HEMOGLOBIN (test code = HGB) 6.7 g/dL 11.0-15.0 L HEMATOCRIT (test code = HCT) 19.4 % 33.0-45.0 L MEAN CELL VOLUME (test code = 90.7 fL 81.0-99.0 N MCV) MEAN CELL HGB (test code = MCH) 31.3 pg 27.0-33.0 N MEAN CELL HGB CONCETRATION 34.5 g/dL 33.0-37.0 N (test code = MCHC) RED CELL DISTRIBUTION WIDTH CV 12.7 % 11.5-14.5 N (test code = RDW) RED CELL DISTRIBUTION WIDTH SD 42.2 fL 37.0-54.0 N (test code = RDW-SD) PLATELET COUNT (test code = 87 x10 3/uL 150-400 L PLT) MEAN PLATELET VOLUME (test code 11.0 fL 7.0-9.0 H = MPV) NEUTROPHIL % (test code = NT%) 87.4 % 56.0-77.0 H IMMATURE GRANULOCYTE % (test 0.3 % 0.0-2.0 N code = IG%) LYMPHOCYTE % (test code = LY%) 6.4 % 14.0-32.0 L MONOCYTE % (test code = MO%) 5.8 % 4.8-9.0 N EOSINOPHIL % (test code = EO%) 0.0 % 0.3-3.7 L BASOPHIL % (test code = BA%) 0.1 % 0.0-2.0 N NUCLEATED RBC % (test code = 0.0 % 0-0 N NRBC%) NEUTROPHIL # (test code = NT#) 8.58 x10 3/uL 2.0-7.6 H IMMATURE GRANULOCYTE # (test 0.03 x10 3/uL 0.00-0.03 N code = IG#) LYMPHOCYTE # (test code = LY#) 0.63 x10 3/uL 1.0-3.8 L MONOCYTE # (test code = MO#) 0.57 x10 3/uL 0.1-0.8 N EOSINOPHIL # (test code = EO#) 0.00 x10 3/uL 0.0-0.2 N BASOPHIL # (test code = BA#) 0.01 x10 3/uL 0.0-0.2 N NUCLEATED RBC # (test code = 0.00 x10 3/uL 0.0-0.1 N NRBC#) MANUAL DIFF REQUIRED (test code NO = MDIFF) PLT [id number] 18:54:00 Test Item Value Reference Range Interpretation Comments PLATELET ESTIMATE (test code 88-110 THOUSAND ADEQUATE = PLTEST) BASIC METABOLIC [id number] 18:39:00 Test Item Value Reference Range Interpretation Comments SODIUM (test code = 146 mEq/L 134-147 N NA) POTASSIUM (test code 4.0 mEq/L 3.4-5.0 N = K) CHLORIDE (test code 112 mEq/L 100-108 H = CL) CARBON DIOXIDE (test 26 mEq/l 21-33 N code = CO2) ANION GAP (test code 12 0-20 N = GAP) GLUCOSE (test code = 193 mg/dL 70-110 H GLU) BLOOD UREA NITROGEN 16 mg/dL 7-18 N (test code = BUN) GLOMERULAR 62.5 80-90 L The Glomerular FILTRATION RATE Filtration R ate is a (test code = GFR) calculated parameterbased on serum Creatinine, pat ient age and sex. GFR va luesless than 60 mL/min/ 1.73 square meters a re indicative ofCh ronic Kidney Disease. Values less than 15 mL/min/1.73squa re meters indicate Kidney failure. The calculation forGFR is based on the CKD-EPI (2020) calculat ion. This formulais race indifferent and is the recommended for lela for GFRby the [facility] on for Adults.The GFR will not calculate if th e sex is unknown or if thepatient's ag e is <18 years. CREATININE (test 1.0 mg/dL 0.6-1.3 N code = CREAT) CALCIUM (test code = 8.6 mg/dL 8.0-10.5 N CA) POC ARTERIAL BLOOD [id number] 17:43:00 Test Item Value Reference Range Interpretation Comments POC ARTERIAL BLOOD GAS PH (test 7.513 7.35-7.45 HH code = POCPHA) POC ARTERIAL BLOOD GAS PCO2 33.7 mmHg 35.0-45 L (test code = [id number]) POC TCO2 ARTERIAL (test code = 28.1 POCTCO2) POC ARTERIAL BLOOD GAS PO2 (test 140.6 mmHg 80-100.0 H code = NTLNN1Y) POC HCO3 ARTERIAL (test code = 27.1 MMOL/L 22.0-26.0 H [id number]) POC BASE EXCESS (test code = 4.1 MMOL/L -4.0-4.0 H POCBEA) POC O2 SATURATION (test code = 99.4 % 90-100 N POCO2S) FIO2 (test code = FIO2A) 40 % PaO2/FiO2 (test code = [id number]) 351.50 mm/Hg ABG DELIVERY (test code = HUNTER) Adult Vent ABG VENT MODE (test code = CPAP/PS MODEA) ABG VENT RESP RATE (test code = 10 /MIN RRA) ABG PEEP (test code = PEEPA) 5 cmH2O ABG PRESSURE SUPPORT (test code 10 cmH2O = PSABG) ABG TEMPERATURE (test code = 98.8 F TEMPA) ABG SITE (test code = SITEA) Art Line BASIC METABOLIC [id number] 17:43:00 Test Item Value Reference Range Interpretation Comments SODIUM (test code = NA/ABG) 148 mmol/L 134-147 H POTASSIUM (test code = K/ABG) 3.8 mmol/L 3.4-5.0 N CHLORIDE (test code = CL/ABG) 108 mmol/L 100-108 N CREATININE ABG (test code = 2.2 mg/dL 0.6-1.0 H CREAABG) POC IONIZED CALCIUM (test code = 1.30 MMOL/L 1.12-1.32 N POCCA) POC GLUCOSE (test code = POCGLU) 178 MG/DL 70-110 H HEMOGLOBIN [id number] 17:43:00 Test Item Value Reference Range Interpretation Comments HEMOGLOBIN ABG (test code = HGB/ABG) 6.3 G/DL 11.0-15.0 L [id number] 17:43:00 Test Item Value Reference Range Interpretation Comments HEMATOCRIT (test code = HCT/ABG) 18 % 33.0-45.0 L POC ARTERIAL BLOOD [id number] 16:00:00 Test Item Value Reference Range Interpretation Comments POC ARTERIAL BLOOD GAS PH (test 7.438 7.35-7.45 N code = POCPHA) POC ARTERIAL BLOOD GAS PCO2 40.1 mmHg 35.0-45 N (test code = [id number]) POC TCO2 ARTERIAL (test code = 28.5 POCTCO2) POC ARTERIAL BLOOD GAS PO2 (test 122.8 mmHg 80-100.0 H code = IGMEP1J) POC HCO3 ARTERIAL (test code = 27.2 MMOL/L 22.0-26.0 H [id number]) POC BASE EXCESS (test code = 3.0 MMOL/L -4.0-4.0 N POCBEA) POC O2 SATURATION (test code = 98.9 % 90-100 N POCO2S) FIO2 (test code = FIO2A) 40 % PaO2/FiO2 (test code = [id number]) 307.00 mm/Hg ABG DELIVERY (test code = HUNTER) Adult Vent ABG VENT MODE (test code = AC MODEA) ABG VENT RESP RATE (test code = 20 /MIN RRA) ABG TIDAL VOLUME (test code = 450 ml TVA) ABG PEEP (test code = PEEPA) 5 cmH2O ABG TEMPERATURE (test code = 98.1 F TEMPA) ABG SITE (test code = SITEA) Art Line BASIC METABOLIC [id number] 16:00:00 Test Item Value Reference Range Interpretation Comments SODIUM (test code = NA/ABG) 146 mmol/L 134-147 N POTASSIUM (test code = K/ABG) 4.1 mmol/L 3.4-5.0 N CHLORIDE (test code = CL/ABG) 109 mmol/L 100-108 H CREATININE ABG (test code = 1.0 mg/dL 0.6-1.0 N CREAABG) POC IONIZED CALCIUM (test code = 1.30 MMOL/L 1.12-1.32 N POCCA) POC GLUCOSE (test code = POCGLU) 168 MG/DL 70-110 H HEMOGLOBIN [id number] 16:00:00 Test Item Value Reference Range Interpretation Comments HEMOGLOBIN ABG (test code = HGB/ABG) 6.0 G/DL 11.0-15.0 L [id number] 16:00:00 Test Item Value Reference Range Interpretation Comments HEMATOCRIT (test code = HCT/ABG) 18 % 33.0-45.0 L POC ARTERIAL BLOOD [id number] 14:09:00 Test Item Value Reference Range Interpretation Comments POC ARTERIAL BLOOD GAS PH (test 7.259 7.35-7.45 LL code = POCPHA) POC ARTERIAL BLOOD GAS PCO2 55.4 mmHg 35.0-45 HH (test code = [id number]) POC TCO2 ARTERIAL (test code = 26.7 POCTCO2) POC ARTERIAL BLOOD GAS PO2 (test 113.9 mmHg 80-100.0 H code = RPIEP6B) POC HCO3 ARTERIAL (test code = 25.0 MMOL/L 22.0-26.0 N [id number]) POC BASE EXCESS (test code = -2.2 MMOL/L -4.0-4.0 N POCBEA) POC O2 SATURATION (test code = 97.7 % 90-100 N POCO2S) FIO2 (test code = FIO2A) 40 % PaO2/FiO2 (test code = [id number]) 284.75 mm/Hg ABG DELIVERY (test code = HUNTER) Adult Vent ABG VENT MODE (test code = CPAP/PS MODEA) ABG VENT RESP RATE (test code = 9 /MIN RRA) ABG PEEP (test code = PEEPA) 5 cmH2O ABG PRESSURE SUPPORT (test code 10 cmH2O = PSABG) ABG TEMPERATURE (test code = 97.5 F TEMPA) ABG SITE (test code = SITEA) Art Line BASIC METABOLIC [id number] 14:09:00 Test Item Value Reference Range Interpretation Comments SODIUM (test code = NA/ABG) 146 mmol/L 134-147 N POTASSIUM (test code = K/ABG) 3.3 mmol/L 3.4-5.0 L CHLORIDE (test code = CL/ABG) 108 mmol/L 100-108 N CREATININE ABG (test code = 1.0 mg/dL 0.6-1.0 N CREAABG) POC IONIZED CALCIUM (test code = 1.33 MMOL/L 1.12-1.32 H POCCA) POC GLUCOSE (test code = POCGLU) 230 MG/DL 70-110 H HEMOGLOBIN [id number] 14:09:00 Test Item Value Reference Range Interpretation Comments HEMOGLOBIN ABG (test code = HGB/ABG) 6.6 G/DL 11.0-15.0 L [id number] 14:09:00 Test Item Value Reference Range Interpretation Comments HEMATOCRIT (test code = HCT/ABG) 19 % 33.0-45.0 L POC LACTIC [id number] 14:09:00 Test Item Value Reference Range Interpretation Comments POC LACTIC ACID (test code = 6.0 mmol/l 0.9-1.7 HH POCLAC) GLUCOSE [id number] 13:22:00 Test Item Value Reference Range Interpretation Comments GLUCOSE BEDSIDE (test 232 MG/DL 70-110 H Perfor med by certified code = GLUBED) 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 GFR va luesless than 60 mL/min/ 1.73 square meters a re indicative ofCh ronic Kidney Disease. Values less than 15 mL/min/1.73squa re meters indicate Kidney failure. The calculation forGFR is based on the CKD-EPI (2020) calculat ion. This formulais race indifferent and is the recommended for lela for GFRby the [facility] on for Adults.The GFR will not calculate if th e sex is unknown or if thepatient's ag e is <18 years. CREATININE (test 0.9 mg/dL 0.6-1.3 N code = CREAT) CALCIUM (test code = 9.0 mg/dL 8.0-10.5 N CA) COMMENTS: On [id number] 12:41:00 Test Item Value Reference Range Interpretation Comments MAGNESIUM (test code = MAG) 2.74 mg/dL 1.80-2.40 H COMMENTS: On arrivalPROTHROMBIN [id number] 12:39:00 Test Item Value Reference Range Interpretation Comments PROTHROMBIN TIME 16.9 SECONDS 9.3-12.9 H PATIENT (test code = PTP) INTERNATIONAL NORMAL 1.5 0.8-1.2 H TARGET INR BY RATIO (test code = INDICATIO N Indication INR) INR1. Prophylax is of venous thrombos is 2.0 - 3.0 (orthoped ic surgery), Proph ylaxis of venous throm bosis (other than hig h-risk surgery), Treat ment of Deep Vein Thrombosis/Pulm onary Embolism, Preve ntion of systemic emb olism - Tissue heart va lves, Acute Myocardia l Infarction (to prevent systemic emboli sm), Valvular heart disease, Atrial Fibrillation, Bileaflet mecha nical valve in aortic position.2. Mec hanical prosthetic valv es (high risk), 2. 5 - 3.5 Presence of Lup us Anticoagulant o r Antiphospholipi d Antibodies, Pre vention of systemic emb olism - Acute Myocardia l Infarction (to prevent recurrent infar ct). COMMENTS: On arrivalTHROMBOPLASTIN TIME [id number] 12:39:00 Test Item Value Reference Range Interpretation Comments THROMBOPLASTIN TIME 30.7 Seconds 25.0-39.5 N Therape utic Range: PARTIAL (test code = 50.4 - 88.3 Seconds PTT) Effective 07/09/2018 COMMENTS: On arrivalPOC ARTERIAL BLOOD [id number] 12:29:00 Test Item Value Reference Range Interpretation Comments POC ARTERIAL BLOOD GAS PH (test 7.248 7.35-7.45 LL code = POCPHA) POC ARTERIAL BLOOD GAS PCO2 48.3 mmHg 35.0-45 H (test code = [id number]) POC TCO2 ARTERIAL (test code = 22.8 POCTCO2) POC ARTERIAL BLOOD GAS PO2 (test 127.7 mmHg 80-100.0 H code = WETUE7V) POC HCO3 ARTERIAL (test code = 21.3 MMOL/L 22.0-26.0 L [id number]) POC BASE EXCESS (test code = -6.2 MMOL/L -4.0-4.0 L POCBEA) POC O2 SATURATION (test code = 98.4 % 90-100 N POCO2S) FIO2 (test code = FIO2A) 60 % PaO2/FiO2 (test code = [id number]) 212.83 mm/Hg ABG DELIVERY (test code = HUNTER) Adult Vent ABG VENT MODE (test code = AC MODEA) ABG VENT RESP RATE (test code = 15 /MIN RRA) ABG TIDAL VOLUME (test code = 450 ml TVA) ABG PEEP (test code = PEEPA) 5 cmH2O ABG TEMPERATURE (test code = 97.3 F TEMPA) ABG SITE (test code = SITEA) Art Line OSWALDO'S TEST (test code = N/A ALLENS) BASIC METABOLIC [id number] 12:29:00 Test Item Value Reference Range Interpretation Comments SODIUM (test code = NA/ABG) 145 mmol/L 134-147 N POTASSIUM (test code = K/ABG) 3.6 mmol/L 3.4-5.0 N CHLORIDE (test code = CL/ABG) 111 mmol/L 100-108 H CREATININE ABG (test code = 0.9 mg/dL 0.6-1.0 N CREAABG) POC IONIZED CALCIUM (test code = 1.41 MMOL/L 1.12-1.32 H POCCA) POC GLUCOSE (test code = POCGLU) 236 MG/DL 70-110 H HEMOGLOBIN [id number] 12:29:00 Test Item Value Reference Range Interpretation Comments HEMOGLOBIN ABG (test code = HGB/ABG) 6.1 G/DL 11.0-15.0 L [id number] 12:29:00 Test Item Value Reference Range Interpretation Comments HEMATOCRIT (test code = HCT/ABG) 18 % 33.0-45.0 L CBC W/AUTO [id number] 12:27:00 Test Item Value Reference Range Interpretation Comments WHITE BLOOD CELL (test code = 17.9 x10 3/uL 4.5-11.0 H WBC) RED BLOOD CELL (test code = 2.25 x10 6/uL 3.54-5.02 L RBC) HEMOGLOBIN (test code = HGB) 7.0 g/dL 11.0-15.0 L HEMATOCRIT (test code = HCT) 20.7 % 33.0-45.0 L MEAN CELL VOLUME (test code = 92.0 fL 81.0-99.0 N MCV) MEAN CELL HGB (test code = 31.1 pg 27.0-33.0 N MCH) MEAN CELL HGB CONCETRATION 33.8 g/dL 33.0-37.0 N (test code = MCHC) RED CELL DISTRIBUTION WIDTH CV 12.7 % 11.5-14.5 N (test code = RDW) RED CELL DISTRIBUTION WIDTH SD 42.4 fL 37.0-54.0 N (test code = RDW-SD) PLATELET COUNT (test code = 120 x10 3/uL 150-400 L PLT) MEAN PLATELET VOLUME (test 10.8 fL 7.0-9.0 H code = MPV) NEUTROPHIL % (test code = NT%) 73.5 % 56.0-77.0 N IMMATURE GRANULOCYTE % (test 1.0 % 0.0-2.0 N code = IG%) LYMPHOCYTE % (test code = LY%) 21.3 % 14.0-32.0 N MONOCYTE % (test code = MO%) 3.1 % 4.8-9.0 L EOSINOPHIL % (test code = EO%) 0.9 % 0.3-3.7 N BASOPHIL % (test code = BA%) 0.2 % 0.0-2.0 N NUCLEATED RBC % (test code = 0.0 % 0-0 N NRBC%) NEUTROPHIL # (test code = NT#) 13.15 x10 3/uL 2.0-7.6 H IMMATURE GRANULOCYTE # (test 0.18 x10 3/uL 0.00-0.03 H code = IG#) LYMPHOCYTE # (test code = LY#) 3.80 x10 3/uL 1.0-3.8 N MONOCYTE # (test code = MO#) 0.55 x10 3/uL 0.1-0.8 N EOSINOPHIL # (test code = EO#) 0.16 x10 3/uL 0.0-0.2 N BASOPHIL # (test code = BA#) 0.04 x10 3/uL 0.0-0.2 N NUCLEATED RBC # (test code = 0.00 x10 3/uL 0.0-0.1 N NRBC#) MANUAL DIFF REQUIRED (test NO code = MDIFF) COMMENTS: On [id number] 11:49:00 Test Item Value Reference Range Interpretation Comments LIZET-ISIRVINGT (test code 143 SEC 74-137 H Perform ed by certified = ACTI) 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[facility] POC ARTERIAL BLOOD [id number] 11:46:00 Test Item Value Reference Range Interpretation Comments POC ARTERIAL BLOOD GAS PH (test 7.358 7.35-7.45 N code = POCPHA) POC ARTERIAL BLOOD GAS PCO2 (test 35.7 mmHg 35.0-45 N code = SEYWVV7W) POC TCO2 ARTERIAL (test code = 21.2 POCTCO2) POC ARTERIAL BLOOD GAS PO2 (test 334.3 mmHg 80-100.0 HH code = FHEIL2Q) POC HCO3 ARTERIAL (test code = 20.1 MMOL/L 22.0-26.0 L [id number]) POC BASE EXCESS (test code = -4.9 MMOL/L -4.0-4.0 L POCBEA) POC O2 SATURATION (test code = 99.9 % 90-100 N POCO2S) BASIC METABOLIC [id number] 11:46:00 Test Item Value Reference Range Interpretation Comments SODIUM (test code = NA/ABG) 142 mmol/L 134-147 N POTASSIUM (test code = K/ABG) 3.8 mmol/L 3.4-5.0 N CHLORIDE (test code = CL/ABG) 110 mmol/L 100-108 H CREATININE ABG (test code = 0.8 mg/dL 0.6-1.0 N CREAABG) POC IONIZED CALCIUM (test code = 1.47 MMOL/L 1.12-1.32 H POCCA) POC GLUCOSE (test code = POCGLU) 202 MG/DL 70-110 H HEMOGLOBIN [id number] 11:46:00 Test Item Value Reference Range Interpretation Comments HEMOGLOBIN ABG (test code = HGB/ABG) 7.6 G/DL 11.0-15.0 L [id number] 11:46:00 Test Item Value Reference Range Interpretation Comments HEMATOCRIT (test code = HCT/ABG) 22 % 33.0-45.0 L POC LACTIC [id number] 11:46:00 Test Item Value Reference Range Interpretation Comments POC LACTIC ACID (test code = 3.0 mmol/l 0.9-1.7 H POCLAC) [id number] 10:58:00 Test Item Value Reference Range Interpretation Comments ACT-ISTAT (test code 618 SEC 74-137 H Perform ed by certified = ACTI) 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[facility] POC ARTERIAL BLOOD [id number] 10:46:00 Test Item Value Reference Range Interpretation Comments POC ARTERIAL BLOOD GAS PH (test 7.424 7.35-7.45 N code = POCPHA) POC ARTERIAL BLOOD GAS PCO2 (test 41.1 mmHg 35.0-45 N code = AGRORY6E) POC TCO2 ARTERIAL (test code = 28.1 POCTCO2) POC ARTERIAL BLOOD GAS PO2 (test 243.5 mmHg 80-100.0 HH code = KSWSL7Y) POC HCO3 ARTERIAL (test code = 26.9 MMOL/L 22.0-26.0 H [id number]) POC BASE EXCESS (test code = 2.2 MMOL/L -4.0-4.0 N POCBEA) POC O2 SATURATION (test code = 99.8 % 90-100 N POCO2S) BASIC METABOLIC [id number] 10:46:00 Test Item Value Reference Range Interpretation Comments SODIUM (test code = NA/ABG) 142 mmol/L 134-147 N POTASSIUM (test code = K/ABG) 4.2 mmol/L 3.4-5.0 N CHLORIDE (test code = CL/ABG) 104 mmol/L 100-108 N CREATININE ABG (test code = 0.8 mg/dL 0.6-1.0 N CREAABG) POC IONIZED CALCIUM (test code = 1.08 MMOL/L 1.12-1.32 L POCCA) POC GLUCOSE (test code = POCGLU) 173 MG/DL 70-110 H HEMOGLOBIN [id number] 10:46:00 Test Item Value Reference Range Interpretation Comments HEMOGLOBIN ABG (test code = HGB/ABG) 8.0 G/DL 11.0-15.0 L [id number] 10:46:00 Test Item Value Reference Range Interpretation Comments HEMATOCRIT (test code = HCT/ABG) 24 % 33.0-45.0 L POC LACTIC [id number] 10:46:00 Test Item Value Reference Range Interpretation Comments POC LACTIC ACID (test code = 2.7 mmol/l 0.9-1.7 H POCLAC) [id number] 10:31:00 Test Item Value Reference Range Interpretation Comments ACT-ISTAT (test code 805 SEC 74-137 H Perform ed by certified = ACTI) 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[facility] POC ARTERIAL BLOOD [id number] 10:14:00 Test Item Value Reference Range Interpretation Comments POC ARTERIAL BLOOD GAS PH (test 7.463 7.35-7.45 H code = POCPHA) POC ARTERIAL BLOOD GAS PCO2 (test 38.0 mmHg 35.0-45 N code = MIWTDA9L) POC TCO2 ARTERIAL (test code = 28.4 POCTCO2) POC ARTERIAL BLOOD GAS PO2 (test 304.9 mmHg 80-100.0 HH code = UCKRE6X) POC HCO3 ARTERIAL (test code = 27.2 MMOL/L 22.0-26.0 H [id number]) POC BASE EXCESS (test code = 3.2 MMOL/L -4.0-4.0 N POCBEA) POC O2 SATURATION (test code = 99.9 % 90-100 N POCO2S) BASIC METABOLIC [id number] 10:14:00 Test Item Value Reference Range Interpretation Comments SODIUM (test code = NA/ABG) 143 mmol/L 134-147 N POTASSIUM (test code = K/ABG) 4.4 mmol/L 3.4-5.0 N CHLORIDE (test code = CL/ABG) 103 mmol/L 100-108 N CREATININE ABG (test code = 0.8 mg/dL 0.6-1.0 N CREAABG) POC IONIZED CALCIUM (test code = 1.06 MMOL/L 1.12-1.32 L POCCA) POC GLUCOSE (test code = POCGLU) 171 MG/DL 70-110 H HEMOGLOBIN [id number] 10:14:00 Test Item Value Reference Range Interpretation Comments HEMOGLOBIN ABG (test code = HGB/ABG) 8.8 G/DL 11.0-15.0 L [id number] 10:14:00 Test Item Value Reference Range Interpretation Comments HEMATOCRIT (test code = HCT/ABG) 26 % 33.0-45.0 L POC LACTIC [id number] 10:14:00 Test Item Value Reference Range Interpretation Comments POC LACTIC ACID (test code = 2.6 mmol/l 0.9-1.7 H POCLAC) [id number] 10:01:00 Test Item Value Reference Range Interpretation Comments ACT-ISTAT (test code 949 SEC 74-137 H Perform ed by certified = ACTI) 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[facility] POC ARTERIAL BLOOD [id number] 09:43:00 Test Item Value Reference Range Interpretation Comments POC ARTERIAL BLOOD GAS PH (test 7.265 7.35-7.45 LL code = POCPHA) POC ARTERIAL BLOOD GAS PCO2 (test 58.4 mmHg 35.0-45 HH code = [id number]) POC TCO2 ARTERIAL (test code = 28.3 POCTCO2) POC ARTERIAL BLOOD GAS PO2 (test 300.0 mmHg 80-100.0 HH code = GKFXL5N) POC HCO3 ARTERIAL (test code = 26.5 MMOL/L 22.0-26.0 H [id number]) POC BASE EXCESS (test code = -1.4 MMOL/L -4.0-4.0 N POCBEA) POC O2 SATURATION (test code = 99.9 % 90-100 N POCO2S) BASIC METABOLIC [id number] 09:43:00 Test Item Value Reference Range Interpretation Comments SODIUM (test code = NA/ABG) 142 mmol/L 134-147 N POTASSIUM (test code = K/ABG) 3.3 mmol/L 3.4-5.0 L CHLORIDE (test code = CL/ABG) 105 mmol/L 100-108 N CREATININE ABG (test code = 0.9 mg/dL 0.6-1.0 N CREAABG) POC IONIZED CALCIUM (test code = 1.26 MMOL/L 1.12-1.32 N POCCA) POC GLUCOSE (test code = POCGLU) 196 MG/DL 70-110 H HEMOGLOBIN [id number] 09:43:00 Test Item Value Reference Range Interpretation Comments HEMOGLOBIN ABG (test code = 11.9 G/DL 11.0-15.0 N HGB/ABG) [id number] 09:43:00 Test Item Value Reference Range Interpretation Comments HEMATOCRIT (test code = HCT/ABG) 35 % 33.0-45.0 N POC LACTIC [id number] 09:43:00 Test Item Value Reference Range Interpretation Comments POC LACTIC ACID (test code = 2.7 mmol/l 0.9-1.7 H POCLAC) [id number] 07:27:00 Test Item Value Reference Range Interpretation Comments ACT-ISTAT (test code 137 SEC 74-137 N Perform ed by certified = ACTI) 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[facility] POC ARTERIAL BLOOD [id number] 07:18:00 Test Item Value Reference Range Interpretation Comments POC ARTERIAL BLOOD GAS PH (test 7.295 7.35-7.45 LL code = POCPHA) POC ARTERIAL BLOOD GAS PCO2 (test 46.9 mmHg 35.0-45 H code = PRPBCG2M) POC TCO2 ARTERIAL (test code = 24.3 POCTCO2) POC ARTERIAL BLOOD GAS PO2 (test 607.2 mmHg 80-100.0 HH code = ZQJAF1V) POC HCO3 ARTERIAL (test code = 22.8 MMOL/L 22.0-26.0 N MFLWWX4L) POC BASE EXCESS (test code = -3.9 MMOL/L -4.0-4.0 N POCBEA) POC O2 SATURATION (test code = 100.0 % 90-100 N POCO2S) BASIC METABOLIC [id number] 07:18:00 Test Item Value Reference Range Interpretation Comments SODIUM (test code = NA/ABG) 142 mmol/L 134-147 N POTASSIUM (test code = K/ABG) 3.9 mmol/L 3.4-5.0 N CHLORIDE (test code = CL/ABG) 103 mmol/L 100-108 N CREATININE ABG (test code = 1.0 mg/dL 0.6-1.0 N CREAABG) POC IONIZED CALCIUM (test code = 1.29 MMOL/L 1.12-1.32 N POCCA) POC GLUCOSE (test code = POCGLU) 315 MG/DL 70-110 H HEMOGLOBIN [id number] 07:18:00 Test Item Value Reference Range Interpretation Comments HEMOGLOBIN ABG (test code = 13.0 G/DL 11.0-15.0 N HGB/ABG) [id number] 07:18:00 Test Item Value Reference Range Interpretation Comments HEMATOCRIT (test code = HCT/ABG) 38 % 33.0-45.0 N POC LACTIC [id number] 07:18:00 Test Item Value Reference Range Interpretation Comments POC LACTIC ACID (test code = 1.8 mmol/l 0.9-1.7 H POCLAC) [id number] 06:42:00 Test Item Value Reference Range Interpretation Comments ALBUMIN (test code = ALB) 3.40 g/dL 3.4-5.0 N [id number] 06:42:00 Test Item Value Reference Range Interpretation Comments PHOSPHOROUS (test code = PHOS) 3.8 MG/DL 2.5-4.9 N [id number] 06:42:00 Test Item Value Reference Range Interpretation Comments MAGNESIUM (test code = MAG) 1.78 mg/dL 1.80-2.40 L PROTHROMBIN [id number] 06:32:00 Test Item Value Reference Range Interpretation Comments PROTHROMBIN TIME 12.9 SECONDS 9.3-12.9 N PATIENT (test code = PTP) INTERNATIONAL NORMAL 1.2 0.8-1.2 N TARGET INR BY RATIO (test code = INDICATIO N Indication INR) INR1. Prophylax is of venous thrombos is 2.0 - 3.0 (orthoped ic surgery), Proph ylaxis of venous throm bosis (other than hig h-risk surgery), Treat ment of Deep Vein Thrombosis/Pulm onary Embolism, Preve ntion of systemic emb olism - Tissue heart va lves, Acute Myocardia l Infarction (to prevent systemic emboli sm), Valvular heart disease, Atrial Fibrillation, Bileaflet mecha nical valve in aortic position.2. Mec hanical prosthetic valv es (high risk), 2. 5 - 3.5 Presence of Lup us Anticoagulant o r Antiphospholipi d Antibodies, Pre vention of systemic emb olism - Acute Myocardia l Infarction (to prevent recurrent infar ct). THROMBOPLASTIN TIME [id number] 06:32:00 Test Item Value Reference Range Interpretation Comments THROMBOPLASTIN TIME 30.8 Seconds 25.0-39.5 N Therape utic Range: PARTIAL (test code = 50.4 - 88.3 Seconds PTT) Effective 07/09/2018 BASIC METABOLIC [id number] 03:56:00 Test Item Value Reference Range Interpretation Comments SODIUM (test code = 141 mEq/L 134-147 N NA) POTASSIUM (test code 5.2 mEq/L 3.4-5.0 H = K) CHLORIDE (test code 107 mEq/L 100-108 N = CL) CARBON DIOXIDE (test 30 mEq/l 21-33 N code = CO2) ANION GAP (test code 9 0-20 N = GAP) GLUCOSE (test code = 224 mg/dL 70-110 H GLU) BLOOD UREA NITROGEN 21 mg/dL 7-18 H (test code = BUN) GLOMERULAR 55.8 80-90 L The Glomerular FILTRATION RATE Filtration R ate is a (test code = GFR) calculated parameterbased on serum Creatinine, pat ient age and sex. GFR va luesless than 60 mL/min/ 1.73 square meters a re indicative ofCh ronic Kidney Disease. Values less than 15 mL/min/1.73squa re meters indicate Kidney failure. The calculation for GFR is based on the CK D-EPI (2020) calculat ion. This formulais race indifferent and is the recommended for lela for GFRby the [facility] Kidney Found[facility] on for Adults.The GFR will not calculate if th e sex is unknown or if thepatient's ag e is <18 years. CREATININE (test 1.1 mg/dL 0.6-1.3 N code = CREAT) CALCIUM (test code = 10.0 mg/dL 8.0-10.5 N CA) CBC W/AUTO [id number] 03:38:00 Test Item Value Reference Range Interpretation Comments WHITE BLOOD CELL (test code = 6.4 x10 3/uL 4.5-11.0 N WBC) RED BLOOD CELL (test code = 4.00 x10 6/uL 3.54-5.02 N RBC) HEMOGLOBIN (test code = HGB) 12.2 g/dL 11.0-15.0 N HEMATOCRIT (test code = HCT) 36.4 % 33.0-45.0 N MEAN CELL VOLUME (test code = 91.0 fL 81.0-99.0 N MCV) MEAN CELL HGB (test code = MCH) 30.5 pg 27.0-33.0 N MEAN CELL HGB CONCETRATION 33.5 g/dL 33.0-37.0 N (test code = MCHC) RED CELL DISTRIBUTION WIDTH CV 12.5 % 11.5-14.5 N (test code = RDW) RED CELL DISTRIBUTION WIDTH SD 41.7 fL 37.0-54.0 N (test code = RDW-SD) PLATELET COUNT (test code = 156 x10 3/uL 150-400 N PLT) MEAN PLATELET VOLUME (test code 10.7 fL 7.0-9.0 H = MPV) NEUTROPHIL % (test code = NT%) 56.8 % 56.0-77.0 N IMMATURE GRANULOCYTE % (test 0.3 % 0.0-2.0 N code = IG%) LYMPHOCYTE % (test code = LY%) 31.7 % 14.0-32.0 N MONOCYTE % (test code = MO%) 8.2 % 4.8-9.0 N EOSINOPHIL % (test code = EO%) 2.5 % 0.3-3.7 N BASOPHIL % (test code = BA%) 0.5 % 0.0-2.0 N NUCLEATED RBC % (test code = 0.0 % 0-0 N NRBC%) NEUTROPHIL # (test code = NT#) 3.66 x10 3/uL 2.0-7.6 N IMMATURE GRANULOCYTE # (test 0.02 x10 3/uL 0.00-0.03 N code = IG#) LYMPHOCYTE # (test code = LY#) 2.04 x10 3/uL 1.0-3.8 N MONOCYTE # (test code = MO#) 0.53 x10 3/uL 0.1-0.8 N EOSINOPHIL # (test code = EO#) 0.16 x10 3/uL 0.0-0.2 N BASOPHIL # (test code = BA#) 0.03 x10 3/uL 0.0-0.2 N NUCLEATED RBC # (test code = 0.00 x10 3/uL 0.0-0.1 N NRBC#) MANUAL DIFF REQUIRED (test code NO = MDIFF) - XR CHEST 1 [id number] 00:00:00 [facility] : 1955 Sex: F FAX: Reva Murrell MD [phone] [place]: St: ADM FAX: Evelin Aden [phone] Name: KALA TURPIN [facility] : 1955 Age/S: 67/F [address] [place] [address] Unit #: [id number] Loc: G.2205 [place] [address] 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 Views: 1 view. COMPARISON: CT CHEST W/O CONTRAST 06/15/2022 8:13 AM FINDINGS: Tubes, catheters and devices: The ET tube terminates3.7 cm above the leora. Right IJ central line terminates in the SVC. Left chest tube is noted. Lungs: Low lung volumes with possible mild vascular congestion. Mild atelectasis in the left upper-mid lung. Pleural spaces: No pleural effusion. No pneumothorax. Heart/Mediastinum: No cardiomegaly. Bones/joints: Median sternotomy wires. IMPRESSION: 1. Satisfactory position of lines and tubes. 2. Low lungvolumes with possible mild vascular congestion. Mild atelectasis in the left upper-mid lung. at 1605 Reported and signed by: Fabian Larry M.D. CC: Reva Murrell MD; Kassie Aden NP Technologist: RT Marlena(Charmaine) Isa Wright ate/Time/By: 06/16/2022 (9074) : By: [email or web address] Orig Print D/T: S: 06/16/2022 (2713) PAGE 1 Signed ReportURINALYSIS [id number] 23:37:00 Test Item Value Reference Range Interpretation Comments UA COLOR (test code = COLU) YELLOW YEL/STRAW UA APPEARANCE (test code = APPU) CLEAR CLEAR UA GLUCOSE DIPSTICK (test code = 3+ NEGATIVE A DGLUU) UA BILIRUBIN DIPSTICK (test code NEGATIVE NEGATIVE = BILU) UA KETONE DIPSTICK (test code = NEGATIVE NEGATIVE KETU) UA SPECIFIC GRAVITY (test code = 1.024 1.005-1.030 N SGU) UA BLOOD DIPSTICK (test code = NEGATIVE NEGATIVE HEATHER) UA PH DIPSTICK (test code = FRANKI) 5.0 5.0-7.0 N UA PROTEIN DIPSTICK (test code = NEGATIVE NEGATIVE PROU) UA UROBILINIOGEN DIPSTICK (test 0.2 mg/dL 0.2-1.0 code = URO) UA NITRITE DIPSTICK (test code = NEGATIVE NEGATIVE KHUSHBU) UA LEUKOCYTE ESTERASE DIPSTICK NEGATIVE NEGATIVE (test code = LEUU) UA RBC (test code = RBCU) 0-3 RBC/HPF 0-3 UA WBC NO REFLEX (test code = 0-3 WBC/HPF 0-3 WBCUCL) UA BACTERIA (test code = BACU) 4+ /HPF NONE SEEN A UA SQUAMOUS CELLS (test code = 0-5 /HPF NONE SEEN SQU) UA HYALINE CAST (test code = 0-2 /LPF NONE SEEN HYALU) GLUCOSE [id number] 21:15:00 Test Item Value Reference Range Interpretation Comments GLUCOSE BEDSIDE (test 313 MG/DL 70-110 H Perfor med by certified code = GLUBED) 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 Jeanine t performance dep ends on theamount of vi olga (antigen) in th e sample.This jeanine t has not been FDA cleare d or approved; the t est hasbeen authori zed by FDA under an Em ergency Use Authorizati on(EUA) for use by labo ratories certified under the CLIA thatmeet the requirements to perform moderate, high or waivedcomplexit y tests. GLUCOSE [id number] 17:46:00 Test Item Value Reference Range Interpretation Comments GLUCOSE BEDSIDE (test 235 MG/DL 70-110 H Perfor med by certified code = GLUBED) 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[facility] GLUCOSE [id number] 12:12:00 Test Item Value Reference Range Interpretation Comments GLUCOSE BEDSIDE (test 254 MG/DL 70-110 H Perfor med by certified code = GLUBED) 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[facility] PLT RESPONSE TO [id number] 08:30:00 Test Item Value Reference Range Interpretation Comments PLT RESPONSE TO PLAVIX 230 PRU 182-335 N Value s <180 PRU are (test code = PLAVRES) specif ic evidence of a P2Y12 inhibitor effect. Testing can onl y be performed if pa tient sample values a re within the following r anges: Hematocrit 33-5 2%, Platelet Count 119,000-502,000 /uL. Patient values outside of theseranges will be rejected by our instrumentation . GLUCOSE [id number] 08:22:00 Test Item Value Reference Range Interpretation Comments GLUCOSE BEDSIDE (test 144 MG/DL 70-110 H [facility] med by certified code = GLUBED) 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 [facility] HGBA1C%2022-06-15 08:11:00 Test Item Value Reference Range Interpretation Comments HGBA1C% (test code = HGBA1C%) 8.3 %A1C 4.8-6.0 H B-TYPE NATRIURETIC [id number] 07:52:00 Test Item Value Reference Range Interpretation Comments B-TYPE NATRIURETIC PEPTIDE (test 58.0 PG/ML 0-100 N code = BNP) COMPREHENSIVE METABOLIC [id number] 07:35:00 Test Item Value Reference Range Interpretation Comments SODIUM (test code = 140 mEq/L 134-147 N NA) POTASSIUM (test code 3.6 mEq/L 3.4-5.0 N = K) CHLORIDE (test code 106 mEq/L 100-108 N = CL) CARBON DIOXIDE (test 28 mEq/l 21-33 N code = CO2) ANION GAP (test code 10 0-20 N = GAP) GLUCOSE (test code = 124 mg/dL 70-110 H GLU) BLOOD UREA NITROGEN 21 mg/dL 7-18 H (test code = BUN) GLOMERULAR 62.5 80-90 L The Glomerular FILTRATION RATE Filtration R ate is a (test code = GFR) calculated parameterbased on serum Creatinin e, patient age and sex. GFR valuesless than 60 mL/min/1.73 squ are meters are priscila cative ofChronic Kidne y Disease. Values less than 15 mL/min/1.73squa re meters indicate Kidney failure. The calculation for GFR is based on the CK D-EPI (2020) calculat ion. This formulais race indifferent and is the recommended for lela for GFRby the [facility] for Adults.The GFR will not calculate i f the sex is unknown or if thepatient's ag e is <18 years. CREATININE (test 1.0 mg/dL 0.6-1.3 N code = CREAT) TOTAL PROTEIN (test 6.6 g/dL 6.4-8.2 N code = PROT) ALBUMIN (test code = 3.50 g/dL 3.4-5.0 N ALB) CALCIUM (test code = 9.6 mg/dL 8.0-10.5 N CA) BILIRUBIN TOTAL 0.60 mg/dL 0.0-1.0 N (test code = BILT) SGOT/AST (test code 15 IUnit/L 15-37 N = AST) SGPT/ALT (test code 13 IUnit/L 30-65 L = ALT) ALKALINE PHOSPHATASE 105 IUnit/L 20-125 N TOTAL (test code = ALKP) [id number] 07:35:00 Test Item Value Reference Range Interpretation Comments MAGNESIUM (test code = MAG) 1.82 mg/dL 1.80-2.40 N CBC W/AUTO [id number] 07:33:00 Test Item Value Reference Range Interpretation Comments WHITE BLOOD CELL (test code = 6.9 x10 3/uL 4.5-11.0 N WBC) RED BLOOD CELL (test code = 4.15 x10 6/uL 3.54-5.02 N RBC) HEMOGLOBIN (test code = HGB) 12.9 g/dL 11.0-15.0 N HEMATOCRIT (test code = HCT) 37.6 % 33.0-45.0 N MEAN CELL VOLUME (test code = 90.6 fL 81.0-99.0 N MCV) MEAN CELL HGB (test code = MCH) 31.1 pg 27.0-33.0 N MEAN CELL HGB CONCETRATION 34.3 g/dL 33.0-37.0 N (test code = MCHC) RED CELL DISTRIBUTION WIDTH CV 12.4 % 11.5-14.5 N (test code = RDW) RED CELL DISTRIBUTION WIDTH SD 40.7 fL 37.0-54.0 N (test code = RDW-SD) PLATELET COUNT (test code = 164 x10 3/uL 150-400 N PLT) MEAN PLATELET VOLUME (test code 10.7 fL 7.0-9.0 H = MPV) NEUTROPHIL % (test code = NT%) 51.9 % 56.0-77.0 L IMMATURE GRANULOCYTE % (test 0.1 % 0.0-2.0 N code = IG%) LYMPHOCYTE % (test code = LY%) 38.4 % 14.0-32.0 H MONOCYTE % (test code = MO%) 7.2 % 4.8-9.0 N EOSINOPHIL % (test code = EO%) 2.0 % 0.3-3.7 N BASOPHIL % (test code = BA%) 0.4 % 0.0-2.0 N NUCLEATED RBC % (test code = 0.0 % 0-0 N NRBC%) NEUTROPHIL # (test code = NT#) 3.59 x10 3/uL 2.0-7.6 N IMMATURE GRANULOCYTE # (test 0.01 x10 3/uL 0.00-0.03 N code = IG#) LYMPHOCYTE # (test code = LY#) 2.66 x10 3/uL 1.0-3.8 N MONOCYTE # (test code = MO#) 0.50 x10 3/uL 0.1-0.8 N EOSINOPHIL # (test code = EO#) 0.14 x10 3/uL 0.0-0.2 N BASOPHIL # (test code = BA#) 0.03 x10 3/uL 0.0-0.2 N NUCLEATED RBC # (test code = 0.00 x10 3/uL 0.0-0.1 N NRBC#) MANUAL DIFF REQUIRED (test code NO = MDIFF) PROTHROMBIN [id number] 06:46:00 Test Item Value Reference Range Interpretation Comments PROTHROMBIN TIME 12.6 SECONDS 9.3-12.9 N PATIENT (test code = PTP) INTERNATIONAL NORMAL 1.1 0.8-1.2 N TARGET INR BY RATIO (test code = INDICATIO N Indication INR) INR1. Prophylax is of venous thrombos is 2.0 - 3.0 (orthoped ic surgery), Proph ylaxis of venous throm bosis (other than hig h-risk surgery), Treat ment of Deep Vein Thrombosis/Pulm onary Embolism, Preve ntion of systemic emb olism - Tissue heart va lves, Acute Myocardia l Infarction (to prevent systemic emboli sm), Valvular heart disease, Atrial Fibrillation, Bileaflet mecha nical valve in aortic position.2. Mec hanical prosthetic valv es (high risk), 2. 5 - 3.5 Presence of Lup us Anticoagulant o r Antiphospholipi d Antibodies, Pre vention of systemic emb olism - Acute Myocardia l Infarction (to prevent recurrent infar ct). 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 Bilateral exam. Exam focused on the carotid arteries. COMPARISON: CTCHEST W/O CONTRAST 06/15/2022 8:13 AM FINDINGS: Right common carotid artery: No occlusion or stenosis. Waveforms are normal. Right internal carotid artery: Elevated peak systolic velocity of 152 cm/s. Right ICA/CCA ratio: Within normal limits. Right external carotid artery: No stenosis in the origin. Right vertebral artery: Antegrade flow. Left common carotid artery: No occlusion or stenosis. Waveforms are normal. Left internal carotid artery: No occlusion or stenosis. Waveforms are normal. Left ICA/CCA ratio: Within normal limits. Left external carotid artery: No stenosis in the origin. Left vertebral artery: Antegrade flow. IMPRESSION: 1. About 50-69% stenosis of right proximal internal carotid artery as above. 2. No flow-limiting left proximal internal carotid arterial stenosis. REFERENCES: SRUCRITERIA. The degree of internal carotid artery stenosis is based on criteria defined by the Societyof Radiologists in Ultrasound (SRU). Normal is no stenosis. Mild is less than 50% stenosis. Moderateis 50-69% stenosis. Severe is greater than 69% stenosis to near occlusion. Near occlusion is a markedly narrowed lumen. Total occlusion is no detectable patent lumen. at 1258 Reported and signed by: Aubrey Aguilar M.D. 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 Acct: [id number] Dis Date: Status: ADM IN PHONE #: [phone] Exam Date: 06/15/2022914 FAX #: [phone] Reason:PRE CABG EVAL EXAMS: CPT CODE: [id number] DUP EXTRACRANIAL TRE 72610 (Continued) CC: Kassie Aden NP Technologist: Soha Butts RDMS(Leela)(BR) Trnflb Date/Time: 06/15/2022 (8) [id number] Orig Print D/T: S: 06/15/2022 (8) Probe: PAGE 2 Signed Report- DUP VEIN [id number] 00:00:00 [facility] : 1955 Sex: F Name: KALA TURPIN [facility] [place] Browne : 1955 Age/S: 67 / F [address] [place] [address] Blvd Unit #: [id number] Loc: [place] [address] 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 Acct: [id number] Dis Date: Status: ADM IN PHONE #: [phone] Exam Date: 06/15/2022915 FAX #: [phone] Reason: PRE CABG EVAL EXAMS: CPT CODE: [id number] DUP VEIN TRE 12236 PROCEDURE INFORMATION: Exam: US Duplex Lower Extremity Veins; Vein mapping Exam date and time: 06/15/2022 8:52 AM Age: 67 years old Clinical indication: Screening exam; Pre op cabg; Additional info: Pre cabg eval TECHNIQUE: Imaging protocol: Real-time duplex ultrasound of the extremities with 2-D young scale, color Doppler flow and spectral waveform analysis including responses to compression and other maneuvers (when performed) with image documentation. Complete exam focused on the bilateral lower extremity veins for vein mapping. COMPARISON: No relevant prior studies available. FINDINGS: Right superficial veins: Normal Doppler waveforms. Normal compressibility.Greater saphenous vein is patent. Right greater saphenous vein- upper thigh: 4.2 mm Right greater saphenous vein-mid thigh: 4.9 mm Right greater saphenous vein-lower thigh: 4.4 mm Right greater saphenous vein-upper le.9 mm Right greater saphenous vein-mid le.7 mm Right greater saphenous vein-low er le.7 mm Left superficial veins: Normal Doppler waveforms. Normal compressibility. Greater saphenous vein is patent. Left great saphenous vein- upper thigh: 5.5 mm Left great saphenous vein-mid thigh: 4.1 mm Left great saphenous vein-lower thigh: 4.8 mm Left great saphenous vein-upper le.9 mm Left great saphenous vein-mid le.2 mm Left great saphenous vein-lower le.5 mm Soft tissues: Unremarkable. IMPRESSION: Greater saphenous vein is patent. Vein mapping as described. at 1331 Reported and signed by: Saira Rodriguez M.D. CC: aKssie Aden NP Technologist: Soha Butts RDMS(Leela)(BR) Trnscb Date/Time: 06/15/2022 (1330) [email or web address] Orig Print D/T: S: 06/15/2022 (1330) Probe: PAGE 1 Signed Report- CT CHEST W/O [id number] 00:00:00 [facility] : 1955 Sex: F Name:KALA TURPIN [facility] : 1955 Age/S: 67 / F [address] [place] [address] Unit #: [id number] Loc: [place] [address] Phys: Kassie Aden NP Acct: [id number] Dis Date: Status: ADM IN PHONE #: [phone] Exam Date: 06/15/2022 0824 FAX #: [phone] Reason: PRE CABG EVAL EXAMS: CPTCODE: [id number] CT CHEST W/O CONTRAST 61553 PROCEDURE INFORMATION: Exam: CT Chest Without Contrast; Diagnostic Exam date and time: 06/15/2022 8:13 AM Age: 67 years old Clinical indication: Other: Pre cabg eval TECHNIQUE: Imaging protocol: Diagnostic computed tomography of the chest without contrast. Radiation optimization: All CT scans at this facility use at least one of these dose optimization techniques: automated exposure control; mA and/or kV adjustment per patient size (includes targeted exams where dose is matched to clinical indication); or iterative reconstruction. REPORTING DATA: Count of CT and Cardiac NM exams in prior 12 months: This patient has received 0 known CTs and 0 known cardiacnuclear medicine studies in the 12 months prior to the current study. COMPARISON: No relevant prior studies available. FINDINGS: Thyroid: No focal lesions or enlargement to the extent visualized. Trachea: No tracheomalacia, stenosis, stricture, or filling defects. Bronchial tree: Patent. Lungs: Linear shadowing is seen in the anterior recess of the right upper lobe consistent with scarring versus subsegmental atelectasis. Pleural spaces: Unremarkable. No pneumothorax. No pleural effusion. Heart: Unremarkable. No cardiomegaly. No pericardial effusion. Coronary arteries: Coronary artery calcifications are present involving both the right and left coronary arteries and its branches. Esophagus: No dilatation. No air fluid levels. No thickening. Lymph nodes: An anterior pericardial lymph node is present and measures 11 mm. Vasculature: Unremarkable. No aortic aneurysm. Liver: No abnormality of visua lized liver. Bones/joints: Mild disc space narrowing is demonstrated in the mid and lower dorsal spine consistent with degenerative disc disease. Soft tissues: Unremarkable. Other findings: No abnormality of visualized upper abdomen. IMPRESSION: 1. No acute abnormality in the chest. Scarring versus subsegmental atelectasis in the anterior recess of the right upper lobe. 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 Nonspecific anterior pericardial lymph node. at 1339 Reported and signed by: Smith Alan M.D. CC: Kassie Aden FINISH REPAIR WORKER Technologist:RT Shira(R)(CT) CTDI: DLP: Trnscb Date/Time: 06/15/2022 (6979) [email or web address] Orig Print D/T: S: 06/15/2022 (7536) PAGE 2 Signed Report Notes Date/Time Note Provider Source 2022-08-04 14:01:00-00:00 [facility] ([facility]) DT Operative Note REPORT#:[id number] REPORT STATUS: Signed DATE:08/04/22 TIME: 1401 PATIENT: KALA TURPIN UNIT #: [id number] ROOM/BED: [place] [address] : [birth year] AGE: 67 SEX: F ATTEND: Teresa Cheng MD ADM AUTHOR: Natasha Morrissey MD * ALL edits or amendments must be made on the [employer]/computer document * Operative Report Operative Note Note: addendum to op note of 07/13/22 The lower sternal wound was approximatel y 3x1 cm and was superficial. Not down to the fascia or muscle. This could only be determined by exploring this wound as it was unclear in this ov erweight patient how deep the wound would be and how much debridement would be needed. A vac sponge w as subseqently placed by our wound care colleagues Natasha Morrissey MD Electronically Signed by Natasha Morrissey MD on 07/24 05/18 at 1404 RPT #:[id number] END OF REPORT 2022-07-17 17:55:00-00:00 [facility] ([facility]) Hospitalist Discharge Summary REPORT#:[id number] REPORT STATUS: Signed DATE:07/17/22 TIME: 1755 PATIENT: KALA TURPIN UNIT #: [id number] ROOM/BED: [place] [address] : [birth year] AGE: 67 SEX: F ATTEND: Teresa Cheng MD ADM AUTHOR: Monique Cheng MD * ALL edits or amendments must be made on the el [employer]/computer document * General Information Problem List/A P: 1. Post-operative infection 2. Dyspepsia 3. Anemia 4. Afib 5. Coronary artery disease 6. S/P CABG x 4 7. Type 2 diabetes mellitus 8. Hypertension Date of admission: Observation Start Date: Date of admission: 07/12/22 Discharge date: 07/17/22 Admission diagnosis: Chest wall infection s/p CABG Discharge diagnosis: Chest wall cellulitis Hospital course: Pt admitted with chest wall cellulitis s /p CABG procedure. Bedside debridement was performed, and patient was cultures. Pending results ID was consulted and started patient on empiric abx, vanc and zosyn. He was eventually tailored to vanc as MRSA was discovered. Wound vac was place d, and dispo barrier was home wound vac. Once that was attained, patient ok to dc home. ID recommened to completed abx course with doxycycline 100 mg BID for 10 more days. Consultants: cardiology, infectious disease Allergies: Allergies: adhesive tape (Coded, RASH, 06/15/22) niacin (Coded, Mild, ANXIETY, 06/15/22) zolpidem (From AMBIEN) (Coded, CONFUSION, ) Free Text DxA P Notes Free text DxA P notes: 67-year-old female med histo ry significant for CAD s/p CABG, recently evaluated at [place] clinic discovered to h ave wound dehiscence at CABG site admitted for wound debridement, chest imaging, and wound VAC placem ent. * S/p wound debridement at bedside this a.m. * chest imaging revealed negative abscess, or ot her subq fluid collections * hyperglycemia noted, continue home insulin reg imen 30 Units bedtime long acting, and 15 Units AC * BP elevated, will restart hypertensive meds ca utiously given reported h/o hypotension while on meds * Continue IV vanc, wound care consulted * Case management consulted for wound vac * Continue home DAPT therapy, lopressor, and prn hydralazine * Follow repeat am labs 07/13- pending wound vac placement. 07/14- wound vac placed, pain controlled , pending home wound vac, CM following and assisting. 07/15- Wound cx growing coag negative staph. getting IV vanc and IV zosyn in the hospital. Will ask ID for recommedations for abx for home once wound vac is arranged. 07/16- off zosyn. getting vanc only. Still awaiti ng home wound vac delivery Dvt ppx: scds code: full dispo: per cards/cvt surgery Hospital course 07/15- d/w nursing. awaiting home wound v ac delivery (delay by H/H company). on vanc/zosyn here. ask ID for help in what she will need for home for antibiotics for the post op wound infection. 07/16- still awaiting home wo und vac delivery. ID recommended stopping zosyn and continuing vanc for now. 07/17- pending wound vac delivery. Will discuss w ith ID for home abx recs. Med Rec Med Rec Discharge meds: Continue taking these medications: PARoxetine HCL (PAXIL) 20 MG TAB 20 MILLIGRAM ORAL DAILY. Melatonin (MELATONIN) 1 MG TAB 10 MILLIGRAM SUBLINGUAL BEDTIME. CLOPIDOGREL (PLAVIX) 75 MG TAB 75 MILLIGRAM ORAL DAILY. CHOLECALCIFEROL (VITAMIN D3) (VITAMIN D3) 25 MCG (1,000 UNIT) CAP 1,000 UNITS ORAL DAILY. FERROUS SULFATE (FEOSOL) 325 MG (65 MG IRON) TAB 325 MILLIGRAM ORAL DAILY. Qty = 30 ATORVASTATIN (LIPITOR) 40 MG TAB 40 MILLIGRAM ORAL 2100 Qty = 30 METOPROLOL TARTRATE (LOPRESSOR) 25 MG TAB 12.5 MILLIGRAM ORAL EVERY 12 HOURS. Days = 30 Qty = 30 ASPIRIN (ASPIRIN) 81 MG TAB.CHEW 81 MILLIGRAM ORAL DAILY. Qty = 30 CYANOCOBALAMIN (VITAMIN B-12) 500 MCG TAB 500 MICROGRAM ORAL DAILY. Qty = 30 INSULIN GLARGINE (LANTUS) 100 UNIT/ML VIAL 30 UNITS SUBCUTANEOUS BEDTIME. INSULIN LISPRO (HumaLOG) 100 UNIT/ML VIAL 15 UNITS SUBCUTANEOUS BEFORE MEALS. Start taking the following new medications: FUROSEMIDE (LASIX) 40 MG TAB 40 MILLIGRAM ORAL TWICE DAILY AT 9AM AND 5PM. Days = 14 Qty = 28 No Refills POTASSIUM CHLORIDE ER (KLOR-CON M20) 20 MEQ TAB. SR 40 MILLIEQUIVALENT ORAL DAILY. Days = 14 Qty = 14 No Refills DOXYCYCLINE HYCLATE (VIBRA-TAB) 100 MG TAB 100 MILLIGRAM ORAL EVERY 12 HOURS. Days = 14 Qty = 28 No Refills The following medications have been changed: Old: AMIODARONE (PACERONE) 200 MG TAB 200 MILLIGRAM ORAL TWICE DAILY. Qty = 60 New: AMIODARONE (PACERONE) 200 MG TAB 200 MILLIGRAM ORAL DAILY. Qty = 60 Old: GABAPENTIN (NEURONTIN) 600 MILLIGRAM ORAL THREE TIMES A DAY. New: GABAPENTIN (NEURONTIN) 600 MG TAB 300 MILLIGRAM ORAL THREE TIMES A DAY. Objective VS/I O Last Documented: Result Date Time Pulse Ox 96 07/17 170 B/P 111/64 07/17 170 B/P Mean 79.9 07/17 170 Temp 98.1 07/17 1702 Pulse 62 07/17 1702 Resp 17 07/17 170 O2 Delivery Room air 07/16 2324 24 hour I O ending at 0700: 07/17 0700 07/16 1900 Intake Total 360 Output Total Balance 360 Intake, Oral 360 Number Voids 4 General appearance: alert, awake, oriented Head/Eyes: atraumatic, normocephalic, PERRLA ENT: moist mucosal membranes Neck: full range of motion, non-tender, supple/n o meningismus Cardiovascular: normal heart sounds, regular rat e rhythm Respiratory: aerating well, clear to auscultatio n, no distress Abdomen: non-tender, normal bowel sounds, soft, no distention Extremities: edema, moves all Musculoskeletal: normal inspection 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, oriented X 3, CNII-XII intact Skin: sternal draining wound, surgical excision, some bleeding Psychiatry: normal affect, normal judgment/insig ht, normal mood Results Findings/Data: Laboratory Tests: 07/17 07/17 07/17 07/17 1704 1224 0758 0710 Chemistry Sodium (134 - 147 mEq/L) 141 Potassium (3.4 - 5.0 mEq/L) 4.0 Chloride (100 - 108 mEq/L) 101 Carbon Dioxide (21 - 33 mEq/l) 35 H Anion Gap (0 - 20) 9 BUN (7 - 18 mg/dL) 25 H Creatinine (0.6 - 1.3 mg/dL) 1.2 Glomerular Filtr Rate (80 - 90) 50.2 L Glucose (70 - 110 mg/dL) 306 H POC Glucose (70 - 110 MG/DL) 139 H 185 H 277 H Calcium (8.0 - 10.5 mg/dL) 9.4 Hematology WBC (4.5 - 11.0 x10 3/uL) 6.5 RBC (3.54 - 5.02 x10 6/uL) 3.74 Hgb (11.0 - 15.0 g/dL) 11.6 Hct (33.0 - 45.0 %) 36.9 MCV (81.0 - 99.0 fL) 98.7 MCH (27.0 - 33.0 pg) 31.0 MCHC (33.0 - 37.0 g/dL) 31.4 L RDW (11.5 - 14.5 %) 16.7 H Plt Count (150 - 400 x10 3/uL) 228 MPV (7.0 - 9.0 fL) 10.3 H Neut % (Auto) (56.0 - 77.0 %) 59.9 Lymph % (Auto) (14.0 - 32.0 %) 26.6 [place] % (Auto) (4.8 - 9.0 %) 8.5 Eos % (Auto) (0.3 - 3.7 %) 4.2 H Baso % (Auto) (0.0 - 2.0 %) 0.5 Neut # (Auto) (2.0 - 7.6 x10 3/uL) 3.87 Lymph # (Auto) (1.0 - 3.8 x10 3/uL) 1.72 [place] # (Auto) (0.1 - 0.8 x10 3/uL) 0.55 Eos # (Auto) (0.0 - 0.2 x10 3/uL) 0.27 H Baso # (Auto) (0.0 - 0.2 x10 3/uL) 0.03 Abs Immat Gran (auto) (0.00 - 0.03 x10 3/uL) 0. 02 Add Manual Diff NO Immature Gran % (0.0 - 2.0 %) 0.3 Nucleated RBC % (0 - 0 %) 0.0 Nucleated RBCs # (Man) (0.0 - 0.1 x10 3/uL) 0.0 0 Discharge Instructions PCP PCP follow-up: PCP: Natasha Morrissey MD Discharge to: Home Health wPlan of Care Additional Discharge Routines: Add. instructions Diet: Cardiac Wound/dressing care: Clean wound daily Additional instructions: Dr Thompson MUST see patient before she goes ho me to decide about which antibiotics for home. also need callum e wound vac. f/u CLOSELY with surgery,cards,ID, PCP and all consultants. Prescriptions: on chart Discharge management: greater than 30 mins, face to face encounter Time spent: Time spent on patient care (minutes): 36 >50% spent on counseling/coordination of care: yes at 2046 RPT #:[id number] END OF REPORT 2022-07-17 17:30:00-00:00 [facility] Endocrinology Progress Note REPORT#:[id number] REPORT STATUS: Signed DATE:07/17/22 TIME: 1730 PATIENT: KALA TURPIN UNIT #: [id number] ROOM/BED: [place] [address] : [birth year] AGE: 67 SEX: F ATTEND: Teresa Cheng MD ADM AUTHOR: Jurgen Wolf MD * ALL edits or amendments must be made on the [employer]/computer document * Subjective Patient reports: no complaints Objective General VS: Last Documented: Result Date Time Pulse Ox 96 07/17 1702 B/P 111/64 07/17 1702 B/P Mean 79.9 07/17 1702 Temp 36.7 07/17 1702 Pulse 62 07/17 1702 Resp 17 07/17 1702 O2 Delivery Room air 07/16 4244 PATIENT WEIGHT: Weight (lb): Weight (oz): Weight (kg): 98.182 Medications: Active Meds + DC'd Last 24 Hrs Furosemide (LASIX) 40 MG DAILY PO Metoprolol Succinate (TOPROL XL) 12.5 MG DAILY P O Potassium Chloride (POTASSIUM CHLORIDE 20MEQ TAB .ER) 20 MEQ DAILY PO Enoxaparin Sodium (lovENOX) 40 MG Q12H SUBQ Amiodarone HCl (CORDARONE) 200 MG DAILY PO Furosemide (LASIX) 40 MG BID 9A 5P PO (DC) Potassium Chloride (POTASSIUM CHLORIDE 20MEQ TAB .ER) 40 MEQ DAILY PO (DC ) Dextrose/Water (DEXTROSE 10% IN WATER) 125 ML DIR PRN IV (CKD) Dextrose/Water (DEXTROSE 10% IN WATER) 250 ML DIR PRN IV (CKD) Glucagon (GLUCAGON) 1 MG ASDIR PRN IM Atorvastatin Calcium (LIPITOR) 40 MG 2100 PO Insulin Glargine (Semglee) 30 UNIT BEDTIME SUBQ Melatonin (Melatonin) 6 MG BEDTIME PO Vancomycin HCl (Vancomycin 1,500 mg Inj (B2)) 1, 500 MG Q24H IV Sodium Chloride (SODIUM CHLORIDE 0.9%) 250 ML Insulin Human Lispro (HUMALOG) 15 UNIT AC SUBQ Aspirin (ASPIRIN) 81 MG DAILY PO Cholecalciferol (VITAMIN D) 1,000 INTL.UNITS AMISH LY PO (CKD) Clopidogrel Bisulfate (Plavix) 75 MG DAILY PO Ferrous Sulfate (FERROUS SULFATE) 325 MG DAILY P O Gabapentin (NEURONTIN) 300 MG TID PO Metoprolol Tartrate (LOPRESSOR) 12.5 MG Q12HR PO (DC) Paroxetine HCl (PAXIL) 20 MG DAILY PO Miscellaneous Information (VANCOMYCIN PHARMACY T O DOSE) 1 EACH ASDIR IV (CKD) Acetaminophen (TYLENOL) 650 MG Q4H PRN PRN PO Docusate Sodium (COLACE) 100 MG BID PRN PRN PO Enoxaparin Sodium (lovENOX) 40 MG Q24H SUBQ (DC) Hydralazine HCl (APRESOLINE) 10 MG Q6H PRN PRN I V Hydrocodone Bitart/Acetaminophen (NORCO 5/325) 1 TAB Q6H PRN PRN PO Lactulose (LACTULOSE) 20 GM Q6H PRN PRN PO Ondansetron HCl (ZOFRAN) 4 MG Q4H PRN PRN IV Potassium Chloride (POTASSIUM CHLORIDE 20MEQ TAB .ER) 40 MEQ DAILY PRN PRN PO Physical Exam General appearance: alert, awake Diagnosis, Assessment Plan Hospital course to date: Laboratory Tests: 07/17 07/17 07/17 07/17 1704 1224 0758 0710 Chemistry Sodium (134 - 147 mEq/L) 141 Potassium (3.4 - 5.0 mEq/L) 4.0 Chloride (100 - 108 mEq/L) 101 Carbon Dioxide (21 - 33 mEq/l) 35 H Anion Gap (0 - 20) 9 BUN (7 - 18 mg/dL) 25 H Creatinine (0.6 - 1.3 mg/dL) 1.2 Glomerular Filtr Rate (80 - 90) 50.2 L Glucose (70 - 110 mg/dL) 306 H POC Glucose (70 - 110 MG/DL) 139 H 185 H 277 H Calcium (8.0 - 10.5 mg/dL) 9.4 Hematology WBC (4.5 - 11.0 x10 3/uL) 6.5 RBC (3.54 - 5.02 x10 6/uL) 3.74 Hgb (11.0 - 15.0 g/dL) 11.6 Hct (33.0 - 45.0 %) 36.9 MCV (81.0 - 99.0 fL) 98.7 MCH (27.0 - 33.0 pg) 31.0 MCHC (33.0 - 37.0 g/dL) 31.4 L RDW (11.5 - 14.5 %) 16.7 H Plt Count (150 - 400 x10 3/uL) 228 MPV (7.0 - 9.0 fL) 10.3 H Neut % (Auto) (56.0 - 77.0 %) 59.9 Lymph % (Auto) (14.0 - 32.0 %) 26.6 [place] % (Auto) (4.8 - 9.0 %) 8.5 Eos % (Auto) (0.3 - 3.7 %) 4.2 H Baso % (Auto) (0.0 - 2.0 %) 0.5 Neut # (Auto) (2.0 - 7.6 x10 3/uL) 3.87 Lymph # (Auto) (1.0 - 3.8 x10 3/uL) 1.72 [place] # (Auto) (0.1 - 0.8 x10 3/uL) 0.55 Eos # (Auto) (0.0 - 0.2 x10 3/uL) 0.27 H Baso # (Auto) (0.0 - 0.2 x10 3/uL) 0.03 Abs Immat Gran (auto) (0.00 - 0.03 x10 3/uL) 0. 02 Add Manual Diff NO Immature Gran % (0.0 - 2.0 %) 0.3 Nucleated RBC % (0 - 0 %) 0.0 Nucleated RBCs # (Man) (0.0 - 0.1 x10 3/uL) 0.0 0 07/16 2042 Chemistry POC Glucose (70 - 110 MG/DL) 219 H 1.Diabetes mellitus type 2 uncontrolled complica tions. 2. Coronary artery disease, status post CABG. 3. Sternal wound infection. 4. Chronic atrial fibrillation 5. Hypertension. Blood sugar 306-2 77 mg/dL. HbA1c 8.3%. Adjust insulin dose. Wound care. Consultants: cardiology Electronically Signed by Jurgen Wolf MD on at 1732 RPT #:[id number] END OF REPORT 2022-07-17 13:25:00-00:00 [facility] Cardiothoracic Surgery Prog REPORT#:[id number] REPORT STATUS: Signed DATE:07/17/22 TIME: 1325 PATIENT: KALA TURPIN UNIT #: [id number] ROOM/BED: [place] [address] : 57 AGE: 67 SEX: F ATTEND: Teresa Cheng MD ADM AUTHOR: [facility] * ALL edits or amendments must be made on the [employer] document * Subjective Chief complaint: S/p CABG Sternal wound dehiscence Review of Systems Constitutional: Denies: chills, fever, malaise. Allergy/Immun: Denies: allergic reaction. ENT: Denies: sore throat. Respiratory: Denies: hemoptysis, SOB. Cardiovascular: Denies: palpitations. GI: Denies: abdominal pain, nausea, vomiting. : Denies: dysuria, hematuria. Heme: Denies: bleeding. Neuro: Denies: dizziness, headache. All systems rev neg: except as marked Objective General VS/I O Last Documented: Result Date Time Pulse Ox 97 07/17 1225 B/P 112/52 07/17 1225 B/P Mean 72.3 07/17 1225 Temp 97.9 07/17 1225 Pulse 54 07/17 1225 Resp 17 07/17 1225 O2 Delivery Room air 07/17 2323 24 hour I O ending at 0700: 07/17 0700 07/16 1900 Intake Total 360 Output Total Balance 360 Intake, Oral 360 Number Voids 4 PATIENT WEIGHT: Weight (lb): Weight (oz): Weight (kg): 98.182 Physical Exam General appearance: alert, awake, oriented Wound/incision: Location: Sternum Site condition: wound vac in place Neck: supple/no meningismus Cardiovascular: normal heart sounds, regular rat e rhythm Respiratory: aerating well, symmetric expansion, no distress Abdomen: soft, non-tender, no distention Extremities: edema, moves all 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, oriented X 3, normal speech, n o motor deficits Psychiatry: normal affect, normal mood Diagnosis, Assessment Plan Hospital course to date: 67 year old female s/p CABG X4 on 06/16/22. She presented to the clinic yesterday (07/13) and was found to have sternal w ound dehiscence and possible infection. She was sent the ED for further evaluation with CT chest, initiation of antibiotics, wound debridement and wound vac placement. Patient denies fever, chest pain or shortness of breath. PLAN CT chest images reviewed with Dr. Danny fam. No subcutaneous fluid collection or abscess Status post wound debridemen t at the bedside by Dr Morrissey (see separate note for details). Patient had oozing from wound that sub sided. Wound vac placed Continue antibiotics, monito cultures Complaining of orthopnea and bilateral lower ext remity edema. Cardiology consulted residential program manager consulted continue wound VAC at [facility] e 07/15 Remains in stable condition Home wound vac pending to be released Afebrile, WBCs NL. On broad-spectrum antibiotics by primary team 07/16 Doing well, wound vac in place Home wound vac pending to be released. Home heal th already arranged ID consulted, Zosyn was continued and she contin ues on vancomycin. CRP 18 Lovenox for DVT prophylaxis Diuresis by cardiology Will continue to follow 07/17/22 Patient doing well. Denies complaints. Wound VAC in place ID following. Case management arranging home health and wound VAC. ID following the patient. Patient will be followed in the outpatient [facility] by wound care. Plan to see the patient in CV clinic in 3/4 week s. Okay to DC patient home when home health and wou nd VAC has been arranged. Consultants: cardiology at 1327 at 0934 RPT #:[id number] END OF REPORT 2022-07-17 11:18:00-00:00 [facility] ([facility]) Pharmacy Prog.Note-Vancomycin REPORT#:[id number] REPORT STATUS: Signed DATE:07/17/22 TIME: 1118 PATIENT: KALA TURPIN UNIT #: [id number] ROOM/BED: [place] [address] : 57 AGE: 67 SEX: F ATTEND: Teresa Cheng MD ADM AUTHOR: [facility] * ALL edits or amendments must be made on the [employer] document * Vancomycin Vancomycin Medication Therapy Goal: trough 10-15 mcg/mL Indication for treatment: CABG Site Infection VS and I/O: Vital Signs Date Temp Pulse Resp B/P B/P Mean Pulse Ox FiO2 07/14-07/17 97.5-98.2 52-61 15-20 98-156/41-80 0.0-102.1 92-96 72 hours ending at 0700 07/17 19007/14 0700 1900 Intake 360 500 780.00 Total Output Total Balance 360 500 780.00 Intake, IV 200.00 Intake, 360 500 580 Oral Number 4 4 4 Voids 72 Hour I O Total 07/17 0700 07/15 0700 Intake Total 360 500 780.00 Output Total Balance 360 500 780.00 Labs: Laboratory Tests: 07/14 1715 Toxicology Vancomycin Trough (10.0 - 20.0 mcg/mL) 10.7 Laboratory Test : 07/17 07/16 07/15 0710 0450 0500 Chemistry BUN (7 - 18 mg/dL) 25 H 20 H 12 Creatinine (0.6 - 1.3 mg/dL) 1.2 1.2 1.1 Hematology WBC (4.5 - 11.0 x10 3/uL) 6.5 8.0 6.6 Microbiology: 07/16 599 NASAL: MRSA DNA Surveillance Screen - COMP Treatment plan: consult Regimen: 67yo female med history significant for CAD s/p CABG 06/16/22, recently evaluated at CT clinic and discovered to have wo und dehiscence at CABG site admitted for wound debrideme nt, chest imaging, and wound VAC placement. Pharmacy was consulted for the management of Vancomycin. Consulting Provider: Mayito High Indication: CABG Site Infection Goal Trough: 10-15 mcg/mL Day of Therapy: 6 Duration of Therapy: 14 days per ID (doxycycline once discharged) Assessment: Labs/Vitals * Afebrile/24hrs, WBC 6.5, BUN/SCr 25/1.2, UOP/2 4hrs 4 voids Micro * MRSA nares (07/16) negative * WCx (07/13) many CoNS * UCx (07/12) contaminated * BCx (07/12) NGTD Imaging * Chest CT (07/12) no organized SQ fluid/collect ion abscess given history Level * Trough (07/14 @1715): 10.7 , therefore therapeutic on Vancomycin 1.5gm IV q24h Plan: * Continue Vancomycin 1.5gm IV q24h * Draw trough 07/17 @1730 at 1121 RPT #:[id number] END OF REPORT 2022-07-17 10:45:00-00:00 [facility] ([facility]) Cardiology Progress Note REPORT#:[id number] REPORT STATUS: Signed DATE:07/17/22 TIME: 1045 PATIENT: KALA TURPIN UNIT #: [id number] ROOM/BED: [place] [address] : 57 AGE: 67 SEX: F ATTEND: Jorge Cheng MD ADM AUTHOR: Ursula Perkins CNP * ALL edits or amendments must be made on the [employer] document * Subjective Patient reports: No: complaints. Objective General VS/I O: 24 hour I O ending at 0700: 07/17 0700 07/16 1900 Intake Total 360 Output Total Balance 360 Intake, Oral 360 Number Voids 4 Vital Signs: Date Time Temp Pulse Resp B/P B/P Pulse O2 O2 F low FiO2 Mean Ox Delivery Rate 07/17 0759 36.7 61 17 148/79 102.1 94 07/17 0523 36.7 56 15 131/68 89.0 94 07/16 2324 36.6 57 16 129/60 82.8 92 Room air 07/16 2043 36.7 57 15 145/72 96.2 93 Room air 07/16 1617 52 19 111/72 85.0 95 Room air PATIENT WEIGHT: Weight (lb): Weight (oz): Weight (kg): 98.182 Medications: Active Meds + DC'd Last 24 Hrs Amiodarone HCl (CORDARONE) 200 MG DAILY PO Furosemide (LASIX) 40 MG BID 9A 5P PO Potassium Chloride (POTASSIUM CHLORIDE 20MEQ TAB .ER) 40 MEQ DAILY PO Dextrose/Water (DEXTROSE 10% IN WATER) 125 ML DIR PRN IV (CKD) Dextrose/Water (DEXTROSE 10% IN WATER) 250 ML DIR PRN IV (CKD) Glucagon (GLUCAGON) 1 MG ASDIR PRN IM Atorvastatin Calcium (LIPITOR) 40 MG 2100 PO Insulin Glargine (Semglee) 30 UNIT BEDTIME SUBQ Melatonin (Melatonin) 6 MG BEDTIME PO Vancomycin HCl (Vancomycin 1,500 mg Inj (B2)) 1, 500 MG Q24H IV Sodium Chloride (SODIUM CHLORIDE 0.9%) 250 ML Insulin Human Lispro (HUMALOG) 15 UNIT AC SUBQ Aspirin (ASPIRIN) 81 MG DAILY PO Cholecalciferol (VITAMIN D) 1,000 INTL.UNITS DA LUTHER PO (CKD) Clopidogrel Bisulfate (Plavix) 75 MG DAILY PO Ferrous Sulfate (FERROUS SULFATE) 325 MG DAILY P O Gabapentin (NEURONTIN) 300 MG TID PO Metoprolol Tartrate (LOPRESSOR) 12.5 MG Q12HR PO Paroxetine HCl (PAXIL) 20 MG DAILY PO Miscellaneous Information (VANCOMYCIN PHARMACY T O DOSE) 1 EACH ASDIR IV (CKD) Acetaminophen (TYLENOL) 650 MG Q4H PRN PRN PO Docusate Sodium (COLACE) 100 MG BID PRN PRN PO Enoxaparin Sodium (lovENOX) 40 MG Q24H SUBQ Hydralazine HCl (APRESOLINE) 10 MG Q6H PRN PRN I V Hydrocodone Bitart/Acetaminophen (NORCO 5/325) 1 TAB Q6H PRN PRN PO Lactulose (LACTULOSE) 20 GM Q6H PRN PRN PO Ondansetron HCl (ZOFRAN) 4 MG Q4H PRN PRN IV Potassium Chloride (POTASSIUM CHLORIDE 20MEQ TAB .ER) 40 MEQ DAILY PRN PRN PO Physical Exam General appearance: alert, awake, oriented, no a cute distress, pleasant Neck: non-tender, no JVD Cardiovascular: CV assessment: pedal edema (trace), regular rat e and rhythm Respiratory: clear to auscultation, no distress Abdomen: soft, non-tender, no distention Genitourinary: no flank pain, no urinary cathete r Lower extremity: LE assessment: edema (trace) Musculoskeletal: normal inspection 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, oriented X 3, normal speech Wound/incision: Location: sternal wound on wound VAC Psychiatry: normal affect, normal judgment/insig ht, normal mood, no hallucinations Results Findings/Data: Laboratory Tests 07/17 07/16 07/16 0710 2043 1617 Chemistry Sodium (134 - 147 mEq/L) 141 Potassium (3.4 - 5.0 mEq/L) 4.0 Chloride (100 - 108 mEq/L) 101 Carbon Dioxide (21 - 33 mEq/l) 35 H Anion Gap (0 - 20) 9 BUN (7 - 18 mg/dL) 25 H Creatinine (0.6 - 1.3 mg/dL) 1.2 Glomerular Filtr Rate (80 - 90) 50.2 L Glucose (70 - 110 mg/dL) 306 H POC Glucose (70 - 110 MG/DL) 219 H 159 H Calcium (8.0 - 10.5 mg/dL) 9.4 Laboratory Tests 07/17 0710 Hematology WBC (4.5 - 11.0 x10 3/uL) 6.5 RBC (3.54 - 5.02 x10 6/uL) 3.74 Hgb (11.0 - 15.0 g/dL) 11.6 Hct (33.0 - 45.0 %) 36.9 MCV (81.0 - 99.0 fL) 98.7 MCH (27.0 - 33.0 pg) 31.0 MCHC (33.0 - 37.0 g/dL) 31.4 L RDW (11.5 - 14.5 %) 16.7 H Plt Count (150 - 400 x10 3/uL) 228 MPV (7.0 - 9.0 fL) 10.3 H Neut % (Auto) (56.0 - 77.0 %) 59.9 Lymph % (Auto) (14.0 - 32.0 %) 26.6 [place] % (Auto) (4.8 - 9.0 %) 8.5 Eos % (Auto) (0.3 - 3.7 %) 4.2 H Baso % (Auto) (0.0 - 2.0 %) 0.5 Neut # (Auto) (2.0 - 7.6 x10 3/uL) 3.87 Lymph # (Auto) (1.0 - 3.8 x10 3/uL) 1.72 [place] # (Auto) (0.1 - 0.8 x10 3/uL) 0.55 Eos # (Auto) (0.0 - 0.2 x10 3/uL) 0.27 H Baso # (Auto) (0.0 - 0.2 x10 3/uL) 0.03 Abs Immat Gran (auto) (0.00 - 0.03 x10 3/uL) 0. 02 Add Manual Diff NO Immature Gran % (0.0 - 2.0 %) 0.3 Nucleated RBC % (0 - 0 %) 0.0 Nucleated RBCs # (Man) (0.0 - 0.1 x10 3/uL) 0.0 0 Results: labs reviewed, vital signs reviewed, [facility] personally rev'd Telemetry Interpretation: sinus bradycardia Diagnosis, Assessment Plan Plan discussed with: patient Free Text DxA P Notes Free Text DxA P Notes: 67-year-old female with [facility] history of CAD, MA, CABG with ALAA 05/27/22, post -op afib s/p DCC, hypertension, diabetes mellitus, CVA, peripheral neuropathy, Charcot's foot who is sent to the hospital from Dr. Rogel's clinic due to sternal wound dehiscence and drainage. She is s/p wound debridement and Vacuum- assisted wound closure devic e has been applied, and antibiotic has been started. Cardiology is consulted for medical optimization. The patient has pitting edema of bilateral lower extremity. She has no other c omplaint. 1. Sternal wound infection s/p wound debridement on antibiotic Wound VAC in place 2. CAD s/p CABG x 4 (LIN-LAD, SVG-Elisabet, SVG-OM, SVG-PDA) Continue aspirin, beta-xander, statin 3. Volume overload/LE edema - improved BUN and Bicarb uptrending - decrease Lasix to 40 mg daily Decrease Potassium chloride to 20 mEq PO daily advised to follow-up with Dr. Linn nex t week, she has not seen him since his surgery 4. Hypertension BP stable continue BB 5. Diabetes mellitus Manage per primary team 6. Hx of postoperative paroxysmal atrial fibrill ation - currently sinus bradycardia tele sinus bradycardia - HR low 50s decrease amiodarone to 200 mg daily change BB to metoprolol XL 12.5 mg daily Okay to discharge from cardiology standpoint. Patient to follow-up with Dr. Linn in 1 week. at 1320 Electronically Signed by Julius Washington MD on at 1111 RPT #:[id number] END OF REPORT 2022-07-17 08:51:00-00:00 [facility] Hospitalist Progress Note REPORT#:[id number] REPORT STATUS: Signed DATE:07/17/22 TIME: 850 PATIENT: KALA TURPIN UNIT #: [id number] ROOM/BED: [place] [address] : 57 AGE: 67 SEX: F ATTEND: Teresa Cheng MD ADM AUTHOR: Monique Cheng MD * ALL edits or amendments must be made on the [employer] document * Subjective Chief complaint: patient doing well, no new complaints. Review of Systems All systems rev neg: except as noted Objective General VS/I O: Vital Signs: Date Time Temp Pulse Resp B/P B/P Pulse O2 O2 F low FiO2 Mean Ox Delivery Rate 07/17 0759 98.1 61 17 148/79 102.1 94 07/17 0523 98.1 56 15 131/68 89.0 94 07/164 97.9 57 16 129/60 82.8 92 Room air 04/23 2043 98.1 57 15 145/72 96.2 93 Room air 07/16 1617 52 19 111/72 85.0 95 Room air 07/16 1026 97.7 61 16 117/65 82.4 93 Room air 24 hour I O ending at 0700: 07/17 0700 07/16 1900 Intake Total 360 Output Total Balance 360 Intake, Oral 360 Number Voids 4 PATIENT WEIGHT: Weight (lb): Weight (oz): Weight (kg): 98.182 Medications: Active Meds + DC'd Last 24 Hrs Amiodarone HCl (CORDARONE) 200 MG DAILY PO Furosemide (LASIX) 40 MG BID 9A 5P PO Potassium Chloride (POTASSIUM CHLORIDE 20MEQ TAB .ER) 40 MEQ DAILY PO Dextrose/Water (DEXTROSE 10% IN WATER) 125 ML DIR PRN IV (CKD) Dextrose/Water (DEXTROSE 10% IN WATER) 250 ML DIR PRN IV (CKD) Glucagon (GLUCAGON) 1 MG ASDIR PRN IM Atorvastatin Calcium (LIPITOR) 40 MG 2100 PO Insulin Glargine (Semglee) 30 UNIT BEDTIME SUBQ Melatonin (Melatonin) 6 MG BEDTIME PO Vancomycin HCl (Vancomycin 1,500 mg Inj (B2)) 1, 500 MG Q24H IV Sodium Chloride (SODIUM CHLORIDE 0.9%) 250 ML Insulin Human Lispro (HUMALOG) 15 UNIT AC SUBQ Aspirin (ASPIRIN) 81 MG DAILY PO Cholecalciferol (VITAMIN D) 1,000 INTL.UNITS AMISH LY PO (CKD) Clopidogrel Bisulfate (Plavix) 75 MG DAILY PO Ferrous Sulfate (FERROUS SULFATE) 325 MG DAILY P O Gabapentin (NEURONTIN) 300 MG TID PO Metoprolol Tartrate (LOPRESSOR) 12.5 MG Q12HR PO Paroxetine HCl (PAXIL) 20 MG DAILY PO Miscellaneous Information (VANCOMYCIN PHARMACY T O DOSE) 1 EACH ASDIR IV (CKD) Acetaminophen (TYLENOL) 650 MG Q4H PRN PRN PO Docusate Sodium (COLACE) 100 MG BID PRN PRN PO Enoxaparin Sodium (lovENOX) 40 MG Q24H SUBQ Hydralazine HCl (APRESOLINE) 10 MG Q6H PRN PRN I V Hydrocodone Bitart/Acetaminophen (NORCO 5/325) 1 TAB Q6H PRN PRN PO Lactulose (LACTULOSE) 20 GM Q6H PRN PRN PO Ondansetron HCl (ZOFRAN) 4 MG Q4H PRN PRN IV Potassium Chloride (POTASSIUM CHLORIDE 20MEQ TAB .ER) 40 MEQ DAILY PRN PRN PO Dietitian nutrition assessment The data set between the solid lines has been im ported from the dietitian's assessment. BMI Calculated: 40.9 Nutrition related diagnosis: Nutrition diagnosis details: Nutrition problem: Nutrition etiology: Nutrition signs and symptoms: Nutrition prescription: Dietitian name: Assessment completed: Physical Exam General appearance: alert, awake, oriented Head/Eyes: atraumatic, normocephalic, PERRLA ENT: moist mucosal membranes Neck: full range of motion, non-tender, supple/n o meningismus Cardiovascular: normal heart sounds, regular rat e rhythm Respiratory: aerating well, clear to auscultatio n, no distress Abdomen: non-tender, normal bowel sounds, soft, no distention Extremities: edema, moves all Musculoskeletal: normal inspection 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, oriented X 3, CNII-XII intact Skin: sternal draining wound, surgical excision, some bleeding Psychiatry: normal affect, normal judgment/insig ht, normal mood Results Findings/Data: Laboratory Tests 07/17 07/16 07/16 07/16 0710 2043 1617 1026 Chemistry Sodium (134 - 147 mEq/L) 141 Potassium (3.4 - 5.0 mEq/L) 4.0 Chloride (100 - 108 mEq/L) 101 Carbon Dioxide (21 - 33 mEq/l) 35 H Anion Gap (0 - 20) 9 BUN (7 - 18 mg/dL) 25 H Creatinine (0.6 - 1.3 mg/dL) 1.2 Glomerular Filtr Rate (80 - 90) 50.2 L Glucose (70 - 110 mg/dL) 306 H POC Glucose (70 - 110 MG/DL) 219 H 159 H 291 H Calcium (8.0 - 10.5 mg/dL) 9.4 Laboratory Tests 07/17 0710 Hematology WBC (4.5 - 11.0 x10 3/uL) 6.5 RBC (3.54 - 5.02 x10 6/uL) 3.74 Hgb (11.0 - 15.0 g/dL) 11.6 Hct (33.0 - 45.0 %) 36.9 MCV (81.0 - 99.0 fL) 98.7 MCH (27.0 - 33.0 pg) 31.0 MCHC (33.0 - 37.0 g/dL) 31.4 L RDW (11.5 - 14.5 %) 16.7 H Plt Count (150 - 400 x10 3/uL) 228 MPV (7.0 - 9.0 fL) 10.3 H Neut % (Auto) (56.0 - 77.0 %) 59.9 Lymph % (Auto) (14.0 - 32.0 %) 26.6 [place] % (Auto) (4.8 - 9.0 %) 8.5 Eos % (Auto) (0.3 - 3.7 %) 4.2 H Baso % (Auto) (0.0 - 2.0 %) 0.5 Neut # (Auto) (2.0 - 7.6 x10 3/uL) 3.87 Lymph # (Auto) (1.0 - 3.8 x10 3/uL) 1.72 [place] # (Auto) (0.1 - 0.8 x10 3/uL) 0.55 Eos # (Auto) (0.0 - 0.2 x10 3/uL) 0.27 H Baso # (Auto) (0.0 - 0.2 x10 3/uL) 0.03 Abs Immat Gran (auto) (0.00 - 0.03 x10 3/uL) 0. 02 Add Manual Diff NO Immature Gran % (0.0 - 2.0 %) 0.3 Nucleated RBC % (0 - 0 %) 0.0 Nucleated RBCs # (Man) (0.0 - 0.1 x10 3/uL) 0.0 0 Diagnosis, Assessment Plan Problem List/A P: 1. Post-operative infection 2. Dyspepsia 3. Anemia 4. Afib 5. Coronary artery disease 6. S/P CABG x 4 7. Type 2 diabetes mellitus 8. Hypertension Consultants: cardiology Code status: full code Free Text DxA P Notes Free text DxA P notes: 67-year-old female med histo ry significant for CAD s/p CABG, recently evaluated at CT clinic discovered to h ave wound dehiscence at CABG site admitted for wound debridement, chest imaging, and wound VAC placem ent. * S/p wound debridement at bedside this a.m. * chest imaging revealed negative abscess, or ot her subq fluid collections * hyperglycemia noted, continue home insulin reg imen 30 Units bedtime long acting, and 15 Units AC * BP elevated, will restart hypertensive meds ca utiously given reported h/o hypotension while on meds * Continue IV vanc, wound care consulted * Case management consulted for wound vac * Continue home DAPT therapy, lopressor, and prn hydralazine * Follow repeat am labs 07/13- pending wound vac placement. 07/14- wound vac placed, pain controlled , pending home wound vac, CM following and assisting. 07/15- Wound cx growing coag negative staph. getting IV vanc and IV zosyn in the hospital. Will ask ID for recommedations for abx for home once wound vac is arranged. 07/16- off zosyn. getting vanc only. Still awaiti ng home wound vac delivery Dvt ppx: scds code: full dispo: per cards/cvt surgery Hospital course 07/15- d/w nursing. awaiting home wound v ac delivery (delay by H/H company). on vanc/zosyn here. ask ID for help in what she will need for home for antibiotics for the post op wound infection. 07/16- still awaiting home wo und vac delivery. ID recommended stopping zosyn and continuing vanc for now. 07/17- pending wound vac delivery. Will discuss w ith ID for home abx recs. at 0856 [facility] #:[id number] END OF REPORT 2022-07-17 08:02:00-00:00 [facility] ([facility]) Infectious Dis. Progress Note REPORT#:[id number] REPORT STATUS: Signed DATE:07/17/22 TIME: 08 PATIENT: KALA TURPIN UNIT #: [id number] ROOM/BED: 6617-1 : 57 AGE: 67 SEX: F ATTEND: Teresa Cheng MD ADM AUTHOR: Monica Spear MD * ALL edits or amendments must be made on the el [employer]/computer document * Subjective HPI: Mr. Kala Turpin is a 67 yea r old lady, with history of CAD status post CABG x4 on June 16, 2022. She was seen in clinic last w [place] and was found to have sternal wound dehiscence and possible infection. She came to the hospital for further evaluation. CT showed an open midline st ernotomy wound at the skin surface with no fluid collection or abscess. She underwent wound debridement and wound VAC placement. Wound culture has grown many coagulase-negative Staphylococcus. Per operative report, th e wound was superficial and tissue was debrided down to healthy vascularized bed. She i s having irritation from the wound vac tape. Objective General VS/I O: Vital Signs Date Temp Pulse Resp B/P B/P Mean Pulse Ox FiO2 07/16-07/17 36.5-36.7 52-61 15-19 111-148/60-79 82.4-102.1 92-95 Last Documented: Result Date Time Pulse Ox 94 07/17 0759 B/P 148/79 07/17 0759 B/P Mean 102.1 07/17 0759 Temp 36.7 07/17 0759 Pulse 61 07/17 0759 Resp 17 07/17 0759 O2 Delivery Room air 07/17 2323 Vital Signs: Date Time Temp Pulse Resp B/P B/P Pulse O2 O2 Flow FiO2 Mean Ox Delivery Rate 07/17 0759 36.7 61 17 148/79 102.1 94 07/17 0523 36.7 56 15 131/68 89.0 94 07/16 2324 36.6 57 16 129/60 82.8 92 Room air 07/163 36.7 57 15 145/72 96.2 93 Room air 07/16 1617 52 19 111/72 85.0 95 Room air 07/16 1026 36.5 61 16 117/65 82.4 93 Room air 24 hour I O ending at 0700: 07/17 0700 07/16 1900 Intake Total 360 Output Total Balance 360 Intake, Oral 360 Number Voids 4 PATIENT WEIGHT: Weight (lb): Weight (oz): Weight (kg): 98.182 Medications: Active Meds + DC'd Last 24 Hrs Amiodarone HCl (CORDARONE) 200 MG DAILY PO Furosemide (LASIX) 40 MG BID 9A 5P PO Potassium Chloride (POTASSIUM CHLORIDE 20MEQ TAB .ER) 40 MEQ DAILY PO Dextrose/Water (DEXTROSE 10% IN WATER) 125 ML DIR PRN IV (CKD) Dextrose/Water (DEXTROSE 10% IN WATER) 250 ML DIR PRN IV (CKD) Glucagon (GLUCAGON) 1 MG ASDIR PRN IM Atorvastatin Calcium (LIPITOR) 40 MG 2100 PO Insulin Glargine (Semglee) 30 UNIT BEDTIME SUBQ Melatonin (Melatonin) 6 MG BEDTIME PO Vancomycin HCl (Vancomycin 1,500 mg Inj (B2)) 1, 500 MG Q24H IV Sodium Chloride (SODIUM CHLORIDE 0.9%) 250 ML Insulin Human Lispro (HUMALOG) 15 UNIT AC SUBQ Aspirin (ASPIRIN) 81 MG DAILY PO Cholecalciferol (VITAMIN D) 1,000 INTL.UNITS AMISH LY PO (CKD) Clopidogrel Bisulfate (Plavix) 75 MG DAILY PO Ferrous Sulfate (FERROUS SULFATE) 325 MG DAILY P O Gabapentin (NEURONTIN) 300 MG TID PO Metoprolol Tartrate (LOPRESSOR) 12.5 MG Q12HR PO Paroxetine HCl (PAXIL) 20 MG DAILY PO Miscellaneous Information (VANCOMYCIN PHARMACY T O DOSE) 1 EACH ASDIR IV (CKD) Acetaminophen (TYLENOL) 650 MG Q4H PRN PRN PO Docusate Sodium (COLACE) 100 MG BID PRN PRN PO Enoxaparin Sodium (lovENOX) 40 MG Q24H SUBQ Hydralazine HCl (APRESOLINE) 10 MG Q6H PRN PRN I V Hydrocodone Bitart/Acetaminophen (NORCO 5/325) 1 TAB Q6H PRN PRN PO Lactulose (LACTULOSE) 20 GM Q6H PRN PRN PO Ondansetron HCl (ZOFRAN) 4 MG Q4H PRN PRN IV Potassium Chloride (POTASSIUM CHLORIDE 20MEQ TAB .ER) 40 MEQ DAILY PRN PRN PO Physical Exam Head/Eyes: atraumatic Cardiovascular: regular rate rhythm Respiratory: clear to auscultation, symmetric ex pansion, no distress Abdomen: no distention, no guarding 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, oriented X 3 Skin: erythema, sternal wound vac Results Findings/Data: Laboratory Tests 07/16 07/16 07/16 2043 1617 1026 Chemistry POC Glucose (70 - 110 MG/DL) 219 H 159 H 291 H Diagnosis, Assessment Plan Free Text A P: A: Ms. Turpin is a 67 yo F who presents with: *Sternal Wound Dehiscence Infection s/p Debridem ent *Recent CABG *CAD *Atrial Fibrillation *T2DM -Ms. Turpin presents with superficial sternal wou nd dehiscence and infection status postdebridement. CT negative for abscess or bone involvement. Wound culture with CoNS. P: -Culture with coag negative staph alone. -Continue vancomycin while inpatient -Discharge antibiotic with p.o. doxycycline 100 mg twice a day for 14 days -Continue wound vac. -follow up with wound care. -Follow-up with infectious diseases in the clini c Antimicrobials: Vancomycin day #3 Consultants: cardiology at 2354 RPT #:[id number] END OF REPORT 2022-07-16 16:12:00-00:00 [id number] [place] [address] PATIENT NAME: KALA TURPIN ADMIT DATE: 07/12/22 ACCOUNT NO: [id number] ROOM NO: [id number] AGE: 67 REPORT TYPE: CONSULTATION REPORT SEX: F ADMITTING PHYSICIAN:Robert Ochoa MD ATTENDING PHYSICIAN:Monique Cheng MD CONSULTATION DATE: 07/16/2022 ENDOCRINE CONSULTATION The patient of Dr. Robert Ochoa. Thank you very much for referring this patient. HISTORY OF PRESENT ILLNESS: This patient is a 67 -year-old white female who is very well known to me from her previous hospital admission. The patient underwent CABG about 2-3 weeks back. Post-CABG, she is doing all right except she got the wound infection of the chest wall. T he patient was readmitted to the hospital for further ignacio luation and management. The patient has been taking the Humalog 15 units 3 times a day and the Lantu s 30 at bedtime. During the hospital stay, her blood sugars have been elevat ed at 183-291 mg/dL. The patient also has history of non-Hodgkin lymphoma and obstructive pulmonary disease along with a Charcot foot. PHYSICAL EXAMINATION: GENERAL: Today, the patient is alert, aw analia, a little bit apprehensive. She is moderately overweight. VITAL SIGNS: Her heart rate is around 70, blood pressure 140/80 mmHg. HEENT: Essentially unremarkable. NECK: Thyroid is palpable. Clinically, she is ne ar euthyroid. CHEST: Diminished bilateral vesicular breathing. She has mild bronchospasm. CARDIAC: Both first and second heart qian nds. There is no third or fourth heart sounds. Ejection sound, grade II/. EXTREMITIES: The patient has evidence of diabeti c sensorimotor neuropathy and Charcot foot. CLINICAL IMPRESSION: Diabetes mellitus type 2 wi th complications, coronary artery disease, status post coronary artery bypa ss grafting, chest wall infection, hypertension, and history of non-Hodg kin lymphoma. PLAN: At this time is to monitor the blood sugar s closely and adjust insulin dose. Thanks for referring this patient. I will be fol lowing this patient with you. Dictated By: Jurgen Wolf MD Date Dictated: 07/16/2022 16:12:02 Date Transcribed: 07/16/2022 16:46:02 PATIENT NAME: PAPI,KALA 3 [facility] Receipt ID: [id number] Authenticated by Jeanine Wolf MD On 07:10:08 PM Electronically Signed by Jurgen Wolf MD on at 0710 PATIENT NAME: ROJAS TURPINELA 03 2022-07-16 11:48:00-00:00 [facility] ([facility]) Infectious Dis. Progress Note REPORT#:[id number] REPORT STATUS: Signed DATE:07/16/22 TIME: 1148 PATIENT: PAPIKALA UNIT #: [id number] ROOM/BED: 6617-1 : 57 AGE: 67 SEX: F ATTEND: Teresa Cheng MD ADM AUTHOR: Monica Spear MD * ALL edits or amendments must be made on the el ectronic/computer document * Subjective HPI: Mr. Kala Turpin is a 67 yea r old lady, with history of CAD status post CABG x4 on June 16, 2022. She was seen in clinic last w [place] and was found to have sternal wound dehiscence and possible infection. She came to the hospital for further evaluation. CT showed an open midline st ernotomy wound at the skin surface with no fluid collection or abscess. She underwent wound debridement and wound VAC placement. Wound culture has grown many coagulase-negative Staphylococcus. Per operative report, th e wound was superficial and tissue was debrided down to healthy vascularized bed. She i s having irritation from the wound vac tape. Objective General VS/I O: Vital Signs Date Temp Pulse Resp B/P B/P Mean Pulse Ox FiO2 07/15-07/16 36.4-36.8 54-61 15-20 98-156/61-74 0.0-101.4 93-96 Last Documented: Result Date Time Pulse Ox 93 07/16 1026 B/P 117/65 07/16 1026 B/P Mean 82.4 07/16 1026 O2 Delivery Room air 07/16 1026 Temp 36.5 07/16 1026 Pulse 61 07/16 1026 Resp 16 07/16 1026 Vital Signs: Date Time Temp Pulse Resp B/P B/P Pulse O2 O2 F low FiO2 Mean Ox Delivery Rate 07/16 1026 36.5 61 16 117/65 82.4 93 Room air 07/16 0744 36.4 60 20 156/74 101.4 96 Room air 07/16 0308 36.5 56 16 111/61 77.6 93 Room air 07/15 2257 36.8 55 16 135/74 94.1 94 Room air 07/15 2137 58 15 143/72 0.0 95 Room air 07/15 1915 36.7 54 18 147/66 92.7 94 Room air 07/15 1534 36.8 54 17 98/62 73.7 94 Room air 24 hour I O ending at 0700: 07/16 0700 07/15 1900 Intake Total 500 Output Total Balance 500 Intake, Oral 500 Number Voids 4 PATIENT WEIGHT: Weight (lb): Weight (oz): Weight (kg): 98.182 Medications: Active Meds + DC'd Last 24 Hrs Amiodarone HCl (CORDARONE) 200 MG DAILY PO Furosemide (LASIX) 40 MG BID 9A 5P PO Potassium Chloride (POTASSIUM CHLORIDE 20MEQ TAB .ER) 40 MEQ DAILY PO Dextrose/Water (DEXTROSE 10% IN WATER) 125 ML DIR PRN IV (CKD) Dextrose/Water (DEXTROSE 10% IN WATER) 250 ML DIR PRN IV (CKD) Glucagon (GLUCAGON) 1 MG ASDIR PRN IM Atorvastatin Calcium (LIPITOR) 40 MG 2100 PO Insulin Glargine (Semglee) 30 UNIT BEDTIME SUBQ Melatonin (Melatonin) 6 MG BEDTIME PO Vancomycin HCl (Vancomycin 1,500 mg Inj (B2)) 1, 500 MG Q24H IV Sodium Chloride (SODIUM CHLORIDE 0.9%) 250 ML Insulin Human Lispro (HUMALOG) 15 UNIT AC SUBQ Aspirin (ASPIRIN) 81 MG DAILY PO Cholecalciferol (VITAMIN D) 1,000 INTL.UNITS AMISH LY PO (CKD) Clopidogrel Bisulfate (Plavix) 75 MG DAILY PO Ferrous Sulfate (FERROUS SULFATE) 325 MG DAILY P O Gabapentin (NEURONTIN) 300 MG TID PO Metoprolol Tartrate (LOPRESSOR) 12.5 MG Q12HR PO Paroxetine HCl (PAXIL) 20 MG DAILY PO Miscellaneous Information (VANCOMYCIN PHARMACY T O DOSE) 1 EACH ASDIR IV (CKD) Piperacillin Sod/Tazobactam Sod (ZOSYN 3.375GM) 3.375 GM Q8H IV (DC) Sodium Chloride (SODIUM CHLORIDE 0.9% 100 ML) 1 00 ML Acetaminophen (TYLENOL) 650 MG Q4H PRN PRN PO Docusate Sodium (COLACE) 100 MG BID PRN PRN PO Enoxaparin Sodium (lovENOX) 40 MG Q24H SUBQ Hydralazine HCl (APRESOLINE) 10 MG Q6H PRN PRN I V Hydrocodone Bitart/Acetaminophen (NORCO 5/325) 1 TAB Q6H PRN PRN PO Lactulose (LACTULOSE) 20 GM Q6H PRN PRN PO Ondansetron HCl (ZOFRAN) 4 MG Q4H PRN PRN IV Potassium Chloride (POTASSIUM CHLORIDE 20MEQ TAB .ER) 40 MEQ DAILY PRN PRN PO Physical Exam Head/Eyes: atraumatic Cardiovascular: regular rate rhythm Respiratory: clear to auscultation, symmetric ex pansion, no distress Abdomen: no distention, no guarding 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, oriented X 3 Skin: erythema, sternal wound vac Results Findings/Data: Laboratory Tests 07/16 07/16 07/16 07/15 07/15 0745 0450 0450 2115 1535 Chemistry Sodium (134 - 147 mEq/L) 141 Potassium (3.4 - 5.0 mEq/L) 3.9 Chloride (100 - 108 mEq/L) 101 Carbon Dioxide (21 - 33 mEq/l) 34 H Anion Gap (0 - 20) 10 BUN (7 - 18 mg/dL) 20 H Creatinine (0.6 - 1.3 mg/dL) 1.2 Glomerular Filtr Rate (80 - 90) 50.2 L Glucose (70 - 110 mg/dL) 183 H POC Glucose (70 - 110 MG/DL) 200 H 143 H 95 Calcium (8.0 - 10.5 mg/dL) 9.4 C-Reactive Protein (<10.0 mg/L) 18.0 H Laboratory Tests 07/160 Hematology WBC (4.5 - 11.0 x10 3/uL) 8.0 RBC (3.54 - 5.02 x10 6/uL) 3.92 Hgb (11.0 - 15.0 g/dL) 11.8 Hct (33.0 - 45.0 %) 38.0 MCV (81.0 - 99.0 fL) 96.9 MCH (27.0 - 33.0 pg) 30.1 MCHC (33.0 - 37.0 g/dL) 31.1 L RDW (11.5 - 14.5 %) 16.9 H Plt Count (150 - 400 x10 3/uL) 250 MPV (7.0 - 9.0 fL) 10.5 H Neut % (Auto) (56.0 - 77.0 %) 56.3 Lymph % (Auto) (14.0 - 32.0 %) 30.0 [place] % (Auto) (4.8 - 9.0 %) 7.8 Eos % (Auto) (0.3 - 3.7 %) 5.2 H Baso % (Auto) (0.0 - 2.0 %) 0.4 Neut # (Auto) (2.0 - 7.6 x10 3/uL) 4.49 Lymph # (Auto) (1.0 - 3.8 x10 3/uL) 2.39 [place] # (Auto) (0.1 - 0.8 x10 3/uL) 0.62 Eos # (Auto) (0.0 - 0.2 x10 3/uL) 0.41 H Baso # (Auto) (0.0 - 0.2 x10 3/uL) 0.03 Abs Immat Gran (auto) (0.00 - 0.03 x10 3/uL) 0. 02 Add Manual Diff NO Immature Gran % (0.0 - 2.0 %) 0.3 Nucleated RBC % (0 - 0 %) 0.0 Nucleated RBCs # (Man) (0.0 - 0.1 x10 3/uL) 0.0 0 Diagnosis, Assessment Plan Free Text A P: A: Ms. Turpin is a 67 yo F who presents with: *Sternal Wound Dehiscence Infection s/p Debridem ent *Recent CABG *CAD *Atrial Fibrillation *T2DM -Ms. Turpin presents with superficial sternal wou nd dehiscence and infection status postdebridement. CT negative for abscess or bone involvement. Wound culture with CoNS. P: -Continue vancomycin. -Check CRP. -Wound vac. Antimicrobials: Vancomycin day #2 Consultants: cardiology at 2310 RPT #:[id number] END OF REPORT 2022-07-16 11:08:00-00:00 [facility] ([facility]) Pharmacy Prog.Note-Vancomycin REPORT#:[id number] REPORT STATUS: Signed DATE:07/16/22 TIME: 1108 PATIENT: KALA TURPIN UNIT #: [id number] ROOM/BED: [place] [id number] : 57 AGE: 67 SEX: F ATTEND: Jorge Cheng MD ADM AUTHOR: Tameka [facility] * ALL edits or amendments must be made on the [employer]/computer document * Vancomycin Vancomycin Medication Therapy Goal: trough 10-15 mcg/mL Indication for treatment: CABG Site Infection VS and I/O: Vital Signs Date Temp Pulse Resp B/P B/P Mean Pulse Ox FiO 2 07/13-07/16 97.5-98.4 49-61 15-20 98-159/41-80 0.0-104.0 92-96 72 hours ending at 0700 07/16 0700 07/15 1900 07/15 0700 07/14 1900 07/13 0700 1900 Intake 500 780.00 740.00 Total Output Total Balance 500 780.00 740.00 Intake, IV 200.00 200.00 Intake, 500 580 540 Oral Number 0 Bowel Movements Number 4 4 4 Voids 72 Hour I O Total 07/16 0707/15 0707/14 0700 Intake Total 500 780.00 740.00 Output Total Balance 500 780.00 740.00 Labs: Laboratory Tests: 07/14 1715 Toxicology Vancomycin Trough (10.0 - 20.0 mcg/mL) 10.7 Laboratory Test : 07/16 07/15 07/14 0450 0500 0600 Chemistry BUN (7 - 18 mg/dL) 20 H 12 Creatinine (0.6 - 1.3 mg/dL) 1.2 1.1 Hematology WBC (4.5 - 11.0 x10 3/uL) 8.0 6.6 6.6 Microbiology: 07/16 06 NASAL: MRSA DNA Surveillance Screen - RECD Treatment plan: consult Regimen: 67yo female med history significant for CAD s/p CABG 06/16/22, recently evaluated at CT clinic and discovered to have wo und dehiscence at CABG site admitted for wound debrideme nt, chest imaging, and wound VAC placement. Pharmacy was consulted for the management of Vancomycin. Consulting Provider: Mayito High Indication: CABG Site Infection Goal Trough: 10-15 mcg/mL Day of Therapy: 5 Duration of Therapy: TBD Assessment: Labs/Vitals * Afebrile/24hrs, WBC 6.6, BUN/SCr 12/1.1, UOP/2 4hrs 4 voids Micro * WCx (07/13) many CoNS * UCx (07/12) contaminated * BCx (07/12) NGTD Imaging * Chest CT (07/12) no organized SQ fluid/collect ion abscess given history Level * Trough (07/14 @1715): 10.7 , therefore therapeutic on Vancomycin 1.5gm IV q24h Plan: * Continue Vancomycin 1.5gm IV q24h * Draw trough 07/17 @1730 at 1109 RPT #:[id number] END OF REPORT 2022-07-16 09:13:00-00:00 [facility] Cardiothoracic Surgery Prog REPORT#:[id number] REPORT STATUS: Signed DATE:07/16/22 TIME: 912 PATIENT: KALA TURPIN UNIT #: [id number] ROOM/BED: [place] [id number] : 57 AGE: 67 SEX: F ATTEND: Teresa Cheng MD ADM AUTHOR: Kassie Aden * ALL edits or amendments must be made on the [employer]/computer document * Subjective Chief complaint: S/p CABG Sternal wound dehiscence Review of Systems Constitutional: Denies: chills, fever, malaise. Allergy/Immun: Denies: allergic reaction. ENT: Denies: sore throat. Respiratory: Denies: hemoptysis, SOB. Cardiovascular: Denies: palpitations. GI: Denies: abdominal pain, nausea, vomiting. : Denies: dysuria, hematuria. Heme: Denies: bleeding. Neuro: Denies: dizziness, headache. All systems rev neg: except as marked Objective General VS/I O Last Documented: Result Date Time Pulse Ox 96 07/17 743 B/P 156/74 07/17 743 B/P Mean 101.4 07/17 743 O2 Delivery Room air 07/17 743 Temp 97.5 07/17 743 Pulse 60 07/16 0644 Resp 20 07/17 743 24 hour I O ending at 0700: 07/16 0700 07/15 1900 Intake Total 500 Output Total Balance 500 Intake, Oral 500 Number Voids 4 PATIENT WEIGHT: Weight (lb): Weight (oz): Weight (kg): 98.182 Physical Exam General appearance: alert, oriented, pleasant, m ental status normal, no respiratory distress Wound/incision: Location: Sternum Site condition: wound vac in place Neck: supple/no meningismus Cardiovascular: normal heart sounds, regular rat e rhythm Respiratory: aerating well, symmetric expansion, no distress Abdomen: soft, non-tender, no distention Extremities: edema, moves all 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, oriented X 3, normal speech, n o motor deficits Psychiatry: normal affect, normal mood Current Medications Medications: Active Meds + DC'd Last 24 Hrs Amiodarone HCl (CORDARONE) 200 MG DAILY PO Furosemide (LASIX) 40 MG BID 9A 5P PO Potassium Chloride (POTASSIUM CHLORIDE 20MEQ TAB .ER) 40 MEQ DAILY PO Dextrose/Water (DEXTROSE 10% IN WATER) 125 ML DIR PRN IV (CKD) Dextrose/Water (DEXTROSE 10% IN WATER) 250 ML DIR PRN IV (CKD) Glucagon (GLUCAGON) 1 MG ASDIR PRN IM Atorvastatin Calcium (LIPITOR) 40 MG 2100 PO Insulin Glargine (Semglee) 30 UNIT BEDTIME SUBQ Melatonin (Melatonin) 6 MG BEDTIME PO Vancomycin HCl (Vancomycin 1,500 mg Inj (B2)) 1, 500 MG Q24H IV Sodium Chloride (SODIUM CHLORIDE 0.9%) 250 ML Insulin Human Lispro (HUMALOG) 15 UNIT AC SUBQ Aspirin (ASPIRIN) 81 MG DAILY PO Cholecalciferol (VITAMIN D) 1,000 INTL.UNITS AMISH LY PO (CKD) Clopidogrel Bisulfate (Plavix) 75 MG DAILY PO Ferrous Sulfate (FERROUS SULFATE) 325 MG DAILY P O Gabapentin (NEURONTIN) 300 MG TID PO Metoprolol Tartrate (LOPRESSOR) 12.5 MG Q12HR PO Paroxetine HCl (PAXIL) 20 MG DAILY PO Miscellaneous Information (VANCOMYCIN PHARMACY T O DOSE) 1 EACH ASDIR IV (CKD) Piperacillin Sod/Tazobactam Sod (ZOSYN 3.375GM) 3.375 GM Q8H IV (DC) Sodium Chloride (SODIUM CHLORIDE 0.9% 100 ML) 1 00 ML Acetaminophen (TYLENOL) 650 MG Q4H PRN PRN PO Docusate Sodium (COLACE) 100 MG BID PRN PRN PO Enoxaparin Sodium (lovENOX) 40 MG Q24H SUBQ Hydralazine HCl (APRESOLINE) 10 MG Q6H PRN PRN IV Hydrocodone Bitart/Acetaminophen (NORCO 5/325) 1 TAB Q6H PRN PRN PO Lactulose (LACTULOSE) 20 GM Q6H PRN PRN PO Ondansetron HCl (ZOFRAN) 4 MG Q4H PRN PRN IV Potassium Chloride (POTASSIUM CHLORIDE 20MEQ TAB .ER) 40 MEQ DAILY PRN PRN PO Results Findings/Data: Laboratory Tests 07/16 07/16 07/16 07/15 07/15 0745 0450 0450 2115 1535 Chemistry Sodium (134 - 147 mEq/L) 141 Potassium (3.4 - 5.0 mEq/L) 3.9 Chloride (100 - 108 mEq/L) 101 Carbon Dioxide (21 - 33 mEq/l) 34 H Anion Gap (0 - 20) 10 BUN (7 - 18 mg/dL) 20 H Creatinine (0.6 - 1.3 mg/dL) 1.2 Glomerular Filtr Rate (80 - 90) 50.2 L Glucose (70 - 110 mg/dL) 183 H POC Glucose (70 - 110 MG/DL) 200 H 143 H 95 Calcium (8.0 - 10.5 mg/dL) 9.4 C-Reactive Protein (<10.0 mg/L) 18.0 H 07/15 1028 Chemistry POC Glucose (70 - 110 MG/DL) 188 H Laboratory Tests 07/16 0450 Hematology WBC (4.5 - 11.0 x10 3/uL) 8.0 RBC (3.54 - 5.02 x10 6/uL) 3.92 Hgb (11.0 - 15.0 g/dL) 11.8 Hct (33.0 - 45.0 %) 38.0 MCV (81.0 - 99.0 fL) 96.9 MCH (27.0 - 33.0 pg) 30.1 MCHC (33.0 - 37.0 g/dL) 31.1 L RDW (11.5 - 14.5 %) 16.9 H Plt Count (150 - 400 x10 3/uL) 250 MPV (7.0 - 9.0 fL) 10.5 H Neut % (Auto) (56.0 - 77.0 %) 56.3 Lymph % (Auto) (14.0 - 32.0 %) 30.0 [place] % (Auto) (4.8 - 9.0 %) 7.8 Eos % (Auto) (0.3 - 3.7 %) 5.2 H Baso % (Auto) (0.0 - 2.0 %) 0.4 Neut # (Auto) (2.0 - 7.6 x10 3/uL) 4.49 Lymph # (Auto) (1.0 - 3.8 x10 3/uL) 2.39 [place] # (Auto) (0.1 - 0.8 x10 3/uL) 0.62 Eos # (Auto) (0.0 - 0.2 x10 3/uL) 0.41 H Baso # (Auto) (0.0 - 0.2 x10 3/uL) 0.03 Abs Immat Gran (auto) (0.00 - 0.03 x10 3/uL) 0. 02 Add Manual Diff NO Immature Gran % (0.0 - 2.0 %) 0.3 Nucleated RBC % (0 - 0 %) 0.0 Nucleated RBCs # (Man) (0.0 - 0.1 x10 3/uL) 0. 00 Diagnosis, Assessment Plan Hospital course to date: 67 year old female s/p CABG X4 on 06/16/22. She presented to the clinic yesterday (07/13) and was found to have sternal w ound dehiscence and possible infection. She was sent the ED for further evaluation with CT chest, initiation of antibiotics, wound debridement and wound vac placement. Patient denies fever, chest pain or shortness of breath. PLAN CT chest images reviewed with Dr. Danny fam. No subcutaneous fluid collection or abscess Status post wound debridemen t at the bedside by Dr Morrissey (see separate note for details). Patient had oozing from wound that sub sided. Wound vac placed Continue antibiotics, monito cultures Complaining of orthopnea and bilateral lower ext remity edema. Cardiology consulted residential program manager consulted continue wound VAC at [facility] e 07/15 Remains in stable condition Home wound vac pending to be released Afebrile, WBCs NL. On broad-spectrum antibiotics by primary team 07/16 Doing well, wound vac in place Home wound vac pending to be released. Home heal th already arranged ID consulted, Zosyn was continued and she contin ues on vancomycin. CRP 18 Lovenox for DVT prophylaxis Diuresis by cardiology Will continue to follow Consultants: cardiology at 0917 at 0933 RPT #:[id number] END OF REPORT 2022-07-16 09:06:00-00:00 [facility] ([facility]) Hospitalist Progress Note REPORT#:[id number] REPORT STATUS: Signed DATE:07/16/22 TIME: 905 PATIENT: KALA TURPIN UNIT #: [id number] ROOM/BED: [place] [address] : 57 AGE: 67 SEX: F ATTEND: Teresa Cheng MD ADM AUTHOR: yMron Jackson MD * ALL edits or amendments must be made on the [employer]/computer document * Subjective Chief complaint: no cp no sob. still awaiting home wound vac. Objective General VS/I O: Vital Signs: Date Time Temp Pulse Resp B/P B/P Pulse O2 O2 F low FiO2 Mean Ox Delivery Rate 07/16 0744 97.5 60 20 156/74 101.4 96 Room air 07/16 0308 97.7 56 16 111/61 77.6 93 Room air 07/15 2257 98.2 55 16 135/74 94.1 94 Room air 07/15 2137 58 15 143/72 0.0 95 Room air 07/15 1915 98.1 54 18 147/66 92.7 94 Room air 07/15 1534 98.2 54 17 98/62 73.7 94 Room air 07/15 1028 97.7 55 18 127/52 76.9 94 Room air 24 hour I O ending at 0700: 07/16 0700 07/15 1900 Intake Total 500 Output Total Balance 500 Intake, Oral 500 Number Voids 4 PATIENT WEIGHT: Weight (lb): Weight (oz): Weight (kg): 98.182 Physical Exam General appearance: alert, awake, oriented Head/Eyes: atraumatic, normocephalic, PERRLA ENT: moist mucosal membranes Neck: full range of motion, non-tender, supple/n o meningismus Cardiovascular: normal heart sounds, regular rat e rhythm Respiratory: aerating well, clear to auscultatio n, no distress Abdomen: non-tender, normal bowel sounds, soft, no distention Extremities: edema, moves all Musculoskeletal: normal inspection 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, oriented X 3, CNII-XII intact Skin: sternal draining wound, surgical excision, some bleeding Psychiatry: normal affect, normal judgment/insig ht, normal mood Results Radiology data: Laboratory Tests 07/16/22 0450: [Embedded Image Not Available] 07/15/22 0500: [Embedded Image Not Available] Current Medications Sig/William Start time Last Medication Dose Route Stop Time Status Admin Amiodarone HCl 200 MG DAILY 07/15 09 AC 07/15 PO 08/14 0859 0845 Furosemide 40 MG BID 9A 5P 07/15 0900 AC 07/15 PO 08/13 1659 1736 Potassium Chloride 40 MEQ DAILY 07/15 0900 AC PO 08/14 0859 0844 Dextrose/Water 125 ML ASDIR PRN 07/14 1400 CKD IV 08/13 1359 Dextrose/Water 250 ML ASDIR PRN 07/14 1400 CKD IV 08/13 1359 Glucagon 1 MG ASDIR PRN 07/14 1400 AC IM 08/13 1359 Atorvastatin Calcium 40 MG 2100 07/13 2100 AC PO 08/12 2058 2138 Insulin Glargine 30 UNIT BEDTIME 07/13 2100 AC 0 07/15 SUBQ 08/12 2058 2139 Melatonin 6 MG BEDTIME 07/13 2100 AC 07/15 PO 08/12 2058 2138 Vancomycin HCl 1,500 MG Q24H 07/13 1800 AC 07/15 Sodium Chloride 250 ML IV 07/18 1759 2031 Insulin Human Lispro 15 UNIT AC 07/13 1630 AC SUBQ 08/12 1629 1736 Aspirin 81 MG DAILY 07/13 0900 AC 07/15 PO 08/12 0859 0842 Cholecalciferol 1,000 INTL.UNITS DAILY 07/13 09 00 CKD 07/15 PO 08/12 0859 0844 Clopidogrel 75 MG DAILY 07/13 0900 AC 07/15 Bisulfate PO 08/12 0859 1236 Ferrous Sulfate 325 MG DAILY 07/13 09 AC 07/15 PO 08/12 0859 0843 Gabapentin 300 MG TID 07/13 899 AC 07/15 PO 08/12 0859 2138 Metoprolol Tartrate 12.5 MG Q12HR 07/13 09 AC 07/15 PO 08/12 0859 0843 Paroxetine HCl 20 MG DAILY 07/13 899 AC 07/15 PO 08/12 0859 0843 Miscellaneous 1 EACH ASDIR 07/12 2345 CKD Information IV 08/11 2344 Piperacillin Sod/ 3.375 GM Q8H 07/12 2300 DC Tazobactam Sod IV 07/17 2259 1601 Sodium Chloride 100 ML Acetaminophen 650 MG Q4H PRN PRN 07/12 2244 AC PO 08/11 2244 Docusate Sodium 100 MG BID PRN PRN 07/12 2245 AC PO 08/11 2244 Enoxaparin Sodium 40 MG Q24H 07/125 AC 07/12 SUBQ 08/11 2244 2325 Hydralazine HCl 10 MG Q6H PRN PRN 07/12 2245 AC IV 08/11 2244 Hydrocodone Bitart/ 1 TAB Q6H PRN PRN 07/12 224 5 AC 07/14 Acetaminophen PO 07/17 2244 2302 Lactulose 20 GM Q6H PRN PRN 07/12 2245 AC PO 08/11 2244 Ondansetron HCl 4 MG Q4H PRN PRN 07/12 2245 AC IV 08/11 2244 Potassium Chloride 40 MEQ DAILY PRN PRN 07/12 22 45 AC PO 08/11 2244 Laboratory Tests: 07/16 07/16 07/16 07/15 0745 0450 7290 2115 Chemistry Sodium (134 - 147 mEq/L) 141 Potassium (3.4 - 5.0 mEq/L) 3.9 Chloride (100 - 108 mEq/L) 101 Carbon Dioxide (21 - 33 mEq/l) 34 H Anion Gap (0 - 20) 10 BUN (7 - 18 mg/dL) 20 H Creatinine (0.6 - 1.3 mg/dL) 1.2 Glomerular Filtr Rate (80 - 90) 50.2 L Glucose (70 - 110 mg/dL) 183 H POC Glucose (70 - 110 MG/DL) 200 H 143 H Calcium (8.0 - 10.5 mg/dL) 9.4 C-Reactive Protein (<10.0 mg/L) 18.0 H Hematology WBC (4.5 - 11.0 x10 3/uL) 8.0 RBC (3.54 - 5.02 x10 6/uL) 3.92 Hgb (11.0 - 15.0 g/dL) 11.8 Hct (33.0 - 45.0 %) 38.0 MCV (81.0 - 99.0 fL) 96.9 MCH (27.0 - 33.0 pg) 30.1 MCHC (33.0 - 37.0 g/dL) 31.1 L RDW (11.5 - 14.5 %) 16.9 H Plt Count (150 - 400 x10 3/uL) 250 MPV (7.0 - 9.0 fL) 10.5 H Neut % (Auto) (56.0 - 77.0 %) 56.3 Lymph % (Auto) (14.0 - 32.0 %) 30.0 [place] % (Auto) (4.8 - 9.0 %) 7.8 Eos % (Auto) (0.3 - 3.7 %) 5.2 H Baso % (Auto) (0.0 - 2.0 %) 0.4 Neut # (Auto) (2.0 - 7.6 x10 3/uL) 4.49 Lymph # (Auto) (1.0 - 3.8 x10 3/uL) 2.39 [place] # (Auto) (0.1 - 0.8 x10 3/uL) 0.62 Eos # (Auto) (0.0 - 0.2 x10 3/uL) 0.41 H Baso # (Auto) (0.0 - 0.2 x10 3/uL) 0.03 Abs Immat Gran (auto) (0.00 - 0.03 x10 3/uL) 0. 02 Add Manual Diff NO Immature Gran % (0.0 - 2.0 %) 0.3 Nucleated RBC % (0 - 0 %) 0.0 Nucleated RBCs # (Man) (0.0 - 0.1 x10 3/uL) 0.0 0 07/15 07/15 7789 1028 Chemistry POC Glucose (70 - 110 MG/DL) 95 188 H Microbiology: 07/16 0600 NASAL: MRSA DNA Surveillance Screen - RECD Diagnosis, Assessment Plan Problem List/A P: 1. Post-operative infection 2. Dyspepsia 3. Anemia 4. Afib 5. Coronary artery disease 6. S/P CABG x 4 7. Type 2 diabetes mellitus 8. Hypertension Consultants: cardiology Free Text DxA P Notes Free text DxA P notes: 67-year-old female med histo ry significant for CAD s/p CABG, recently evaluated at CT clinic discovered to h ave wound dehiscence at CABG site admitted for wound debridement, chest imaging, and wound VAC placem ent. * S/p wound debridement at bedside this a.m. * chest imaging revealed negative abscess, or ot her subq fluid collections * hyperglycemia noted, continue home insulin reg imen 30 Units bedtime long acting, and 15 Units AC * BP elevated, will restart hypertensive meds ca utiously given reported h/o hypotension while on meds * Continue IV vanc, wound care consulted * Case management consulted for wound vac * Continue home DAPT therapy, lopressor, and prn hydralazine * Follow repeat am labs 07/13- pending wound vac placement. 07/14- wound vac placed, pain controlled , pending home wound vac, CM following and assisting. 07/15- Wound cx growing coag negative staph. getting IV vanc and IV zosyn in the hospital. Will ask ID for recommedations for abx for home once wound vac is arranged. 07/16- off zosyn. getting vanc only. Still awaiti ng home wound vac delivery Dvt ppx: scds code: full dispo: per cards/cvt surgery Hospital course 07/15- d/w nursing. awaiting home wound v ac delivery (delay by H[employer] company). on vanc/zosyn here. ask ID for help in what she will need for home for antibiotics for the post op wound infection. 07/16- still awaiting home wo und vac delivery. ID recommended stopping zosyn and continuing vanc for now. Electronically Signed by Myron Jackosn MD on 06/25 06/15 at 0909 RPT #:[id number] END OF REPORT 2022-07-16 06:43:00-00:00 [facility] ([facility]) Cardiology Progress Note REPORT#:[id number] REPORT STATUS: Signed DATE:07/16/22 TIME: 0643 PATIENT: KALA TURPIN UNIT #: [id number] ROOM/BED: 6617-1 : 57 AGE: 67 SEX: F ATTEND: Teresa Cheng MD ADM AUTHOR: Amara Waldrop MD * ALL edits or amendments must be made on the el [employer]/computer document * Subjective Chief complaint: No change HPI: 67-year-old female with medi [facility] history of CAD, MA, CABG with ALAA 05/27/22, post -op afib s/p DCC, hypertension, diabetes mellitus, CVA, peripheral neuropathy, Charcot's foot who is sent to the hospital from Dr. Rogel[facility] clinic due to sternal wound dehiscence and drainage. She is s/p wound debridement and Vacuum- assisted wound closure devic e has been applied, and antibiotic has been started. Cardiology is consulted for medical optimization. The patient has pitting edema of bilateral lower extremity. She has no other c omplaint. Objective General VS/I O: 24 hour I O ending at 0700: 07/16 0700 07/15 1900 Intake Total 500 Output Total Balance 500 Intake, Oral 500 Number Voids 4 Vital Signs: Date Time Temp Pulse Resp B/P B/P Pulse O2 O2 F low FiO2 Mean Ox Delivery Rate 07/16 0308 97.7 56 16 111/61 77.6 93 Room air 07/15 2257 98.2 55 16 135/74 94.1 94 Room air 07/15 2137 58 15 143/72 0.0 95 Room air 07/15 1915 98.1 54 18 147/66 92.7 94 Room air 07/15 1534 98.2 54 17 98/62 73.7 94 Room air 07/15 1028 97.7 55 18 127/52 76.9 94 Room air 07/15 0715 97.5 61 19 128/67 87.6 94 Room air PATIENT WEIGHT: Weight (lb): Weight (oz): Weight (kg): 98.182 Medications: Active Meds + DC'd Last 24 Hrs Amiodarone HCl (CORDARONE) 200 MG DAILY PO Furosemide (LASIX) 40 MG BID 9A 5P PO Potassium Chloride (POTASSIUM CHLORIDE 20MEQ TAB .ER) 40 MEQ DAILY PO Dextrose/Water (DEXTROSE 10% IN WATER) 125 ML DIR PRN IV (CKD) Dextrose/Water (DEXTROSE 10% IN WATER) 250 ML DIR PRN IV (CKD) Glucagon (GLUCAGON) 1 MG ASDIR PRN IM Atorvastatin Calcium (LIPITOR) 40 MG 2100 PO Insulin Glargine (Semglee) 30 UNIT BEDTIME SUBQ Melatonin (Melatonin) 6 MG BEDTIME PO Vancomycin HCl (Vancomycin 1,500 mg Inj (B2)) 1, 500 MG Q24H IV Sodium Chloride (SODIUM CHLORIDE 0.9%) 250 ML Insulin Human Lispro (HUMALOG) 15 UNIT AC SUBQ Aspirin (ASPIRIN) 81 MG DAILY PO Cholecalciferol (VITAMIN D) 1,000 INTL.UNITS AMISH LY PO (CKD) Clopidogrel Bisulfate (Plavix) 75 MG DAILY PO Ferrous Sulfate (FERROUS SULFATE) 325 MG DAILY P O Gabapentin (NEURONTIN) 300 MG TID PO Metoprolol Tartrate (LOPRESSOR) 12.5 MG Q12HR PO Paroxetine HCl (PAXIL) 20 MG DAILY PO Miscellaneous Information (VANCOMYCIN PHARMACY T O DOSE) 1 EACH ASDIR IV (CKD) Piperacillin Sod/Tazobactam Sod (ZOSYN 3.375GM) 3.375 GM Q8H IV (DC) Sodium Chloride (SODIUM CHLORIDE 0.9% 100 ML) 1 00 ML Acetaminophen (TYLENOL) 650 MG Q4H PRN PRN PO Docusate Sodium (COLACE) 100 MG BID PRN PRN PO Enoxaparin Sodium (lovENOX) 40 MG Q24H SUBQ Hydralazine HCl (APRESOLINE) 10 MG Q6H PRN PRN I V Hydrocodone Bitart/Acetaminophen (NORCO 5/325) 1 TAB Q6H PRN PRN PO Lactulose (LACTULOSE) 20 GM Q6H PRN PRN PO Ondansetron HCl (ZOFRAN) 4 MG Q4H PRN PRN IV Potassium Chloride (POTASSIUM CHLORIDE 20MEQ TAB .ER) 40 MEQ DAILY PRN PRN PO Physical Exam General appearance: sleeping comfortably Neck: non-tender, no JVD Cardiovascular: CV assessment: pedal edema, regular rate and rh ythm Respiratory: clear to auscultation, no distress Abdomen: soft, non-tender, no distention Lower extremity: LE assessment: edema (2+) Musculoskeletal: normal inspection 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, oriented X 3, normal speech Wound/incision: Location: sternal wound on wound VAC Psychiatry: normal affect, normal judgment/insig ht, normal mood, no hallucinations Results Findings/Data: Laboratory Tests 07/15 07/15 07/15 07/15 2115 1535 1028 0716 Chemistry POC Glucose (70 - 110 MG/DL) 143 H 95 188 H 132 H Diagnosis, Assessment Plan Consultants: cardiology Free Text DxA P Notes Free Text DxA P Notes: 67-year-old female with medi [facility] history of CAD, MA, CABG with ALAA 05/27/22, post -op afib s/p DCC, hypertension, diabetes mellitus, CVA, peripheral neuropathy, Charcot's foot who is sent to the hospital from Dr. Rogel's clinic due to sternal wound dehiscence and drainage. She is s/p wound debridement and Vacuum- assisted wound closure devic e has been applied, and antibiotic has been started. Cardiology is consulted for medical optimization. The patient has pitting edema of bilateral lower extremity. She has no other c omplaint. 1. Sternal wound infection s/p wound debridement on antibiotic Wound VAC in place 2. CAD s/p CABG x 4 (LIN-LAD, SVG-Elisabet, SVG-OM, SVG-PDA) Continue aspirin, beta-xander, statin 3. Volume overload/LE edema PO lasix 40 mg BID Potassium chloride PO mEq PO daily patient is advised to follow -up with Dr. Linn next week, she has not seen him since his surgery 4. Hypertension BP stable continue BB 5. Diabetes mellitus Manage per primary team Electronically Signed by Amara Waldrop MD on at 0644 RPT #:[id number] END OF REPORT 2022-07-15 18:31:00-00:00 [facility] ([facility]) Infect Disease Consult Note REPORT#:[id number] REPORT STATUS: Signed DATE:07/15/22 TIME: 1830 PATIENT: KALA TURPIN UNIT #: [id number] ROOM/BED: 6617-1 : 57 AGE: 67 SEX: F ATTEND: Teresa Cheng MD ADM AUTHOR: Luana Chow MD * ALL edits or amendments must be made on the el [employer]/computer document * History of Present Illness Requesting Clinician: Myron Jackson MD Reason for consult: Sternal Wound HPI: Mr. Kala Turpin is a 67 yea r old lady, with history of CAD status post CABG x4 on June 16, 2022. She was seen in clinic last w [place] and was found to have sternal wound dehiscence and possible infection. She came to the hospital for further evaluation. CT showed an open midline st ernotomy wound at the skin surface with no fluid collection or abscess. She underwent wound debridement and wound VAC placement. Wound culture has grown many coagulase-negative Staphylococcus. Per operative report, th e wound was superficial and tissue was debrided down to healthy vascularized bed. She i s having irritation from the wound vac tape. History - Adult longitudinal Past medical history: Reports: Atrial fibrillation, Coronary artery di sease, Diabetes mellitus, Hypertension, Ischemic stroke, Prior MA. Denies: Congestive heart failure, Kidney disease/stones. Additional medical history: Stroke Hypertension Hyperlipidemia Diabetes Obstructive sleep apnea Coronary artery disease Charcot syndrome Non Hodgkin's lymphoma Past surgical history: Reports: Hysterectomy, PCI. Additional surgical history: Exploratory laparotomy for infected mesh Additional family history: Father with hx of CAD Son of heart attack Alcohol use: Denies EtOH use Drug use: Denies recreational drugs Smoking status for patients 13 years old or olde r: Never Smoker Medications: Home Medications: Medication Dose/Rte/Freq Days Qty Entered Last Max Daily Dose Reviewed GABAPENTIN (NEURONTIN) 300 MG PO TID 07/12/22 07/12/22 Strength: 600 MG TAB 2126 2126 INSULIN GLARGINE 30 UNITS SUBQ 07/12/22 (LANTUS) BEDTIME 2127 Strength: 100 UNIT/ML VIAL INSULIN LISPRO (HumaLOG) 15 UNITS SUBQ AC 07/12 Strength: 100 UNIT/ML 2130 VIAL PARoxetine HCL (PAXIL) 20 MG PO DAILY 06/15/22 07/12/22 Strength: 20 MG TAB 109 2124 Melatonin (MELATONIN) 10 MG SL BEDTIME 06/15/22 07/12/22 Strength: 1 MG TAB 110 2124 CLOPIDOGREL (PLAVIX) 75 MG PO DAILY 06/21/22 Strength: 75 MG TAB 2044 2124 CHOLECALCIFEROL 1,000 UNITS PO DAILY 06/21/22 07/12/22 (VITAMIN D3) 2045 2125 (VITAMIN D3) Strength: 25 MCG (1,000 UNIT) CAP AMIODARONE (PACERONE) 200 MG PO DAILY 60 07/15 Strength: 200 MG TAB 1326 FUROSEMIDE (LASIX) 40 MG PO BID 9A 5P 14 28 Strength: 40 MG TAB 1216 POTASSIUM CHLORIDE ER 40 MEQ PO DAILY 14 14 (KLOR-CON M20) 1217 Strength: 20 MEQ TAB.SR FERROUS SULFATE 325 MG PO DAILY 30 06/25/22 (FEOSOL) 1100 2123 Strength: 325 MG (65 MG IRON) TAB ATORVASTATIN (LIPITOR) 40 MG PO 2100 30 3 07/12/22 Strength: 40 MG TAB 1101 4 METOPROLOL TARTRATE 12.5 MG PO Q12HR 30 30 05/1807/12/22 (LOPRESSOR) 1101 2123 Strength: 25 MG TAB ASPIRIN 81 MG PO DAILY 30 06/25/22 07/12/22 Strength: 81 MG TAB.CHEW 1102 2123 CYANOCOBALAMIN 500 MCG PO DAILY 30 06/25/22 (VITAMIN B-12) 1104 2125 Strength: 500 MCG TAB Current Hospital Medications: fs Category Unknown Sig/William Start time Last Medication Dose Route Stop Time Status Admin Melatonin 6 MG BEDTIME 07/13 2100 AC 07/14 (Melatonin) PO 08/12 Anti-Infective Agents Sig/William Start time Last Medication Dose Route Stop Time Status Admin Vancomycin HCl 1,500 MG Q24H 07/13 1800 AC 06/25 1 (Vancomycin 1,500 mg IV 07/18 175 175 Inj (B2)) Sodium Chloride 250 ML (SODIUM CHLORIDE 0.9%) Miscellaneous 1 EACH ASDIR 07/12 2345 CKD Information IV 08/12 2343 (VANCOMYCIN PHARMACY TO DOSE) Piperacillin Sod/ 3.375 GM Q8H 07/12 2300 AC Tazobactam Sod IV 07/17 2259 1601 (ZOSYN 3.375GM) Sodium Chloride 100 ML (SODIUM CHLORIDE 0.9% 100 ML) Blood Formation,Coagulation Sig/William Start time Last Medication Dose Route Stop Time Status Admin Clopidogrel Bisulfate 75 MG DAILY 07/13 0900 r 07/15 (Plavix) PO 08/12 0859 1236 Ferrous Sulfate 325 MG DAILY 07/13 0900 AC 06/25 2 (FERROUS SULFATE) PO 08/12 0859 0843 Enoxaparin Sodium 40 MG Q24H 07/12 2244 r 06/24 9 (lovENOX) SUBQ 08/11 2244 2325 Cardiovascular Drugs Sig/William Start time Last Medication Dose Route Stop Time Status Admin Amiodarone HCl 200 MG DAILY 07/15 0900 AC 07/15 (CORDARONE) PO 08/14 0859 0845 Atorvastatin Calcium 40 MG 2100 07/13 2100 AC 0 07/14 (LIPITOR) PO 08/12 2058 205 Metoprolol Tartrate 12.5 MG Q12HR 07/13 0900 AC 07/15 (LOPRESSOR) PO 08/12 0859 0843 Hydralazine HCl 10 MG Q6H PRN PRN 07/12 2245 A C (APRESOLINE) IV 08/11 224 Central Nervous System Agents Sig/William Start time Last Medication Dose Route Stop Time Status Admin Aspirin 81 MG DAILY 07/13 09 AC 07/15 (ASPIRIN) PO 08/12 0859 0842 Gabapentin 300 MG TID 07/13 0900 AC 07/15 (NEURONTIN) PO 08/12 0859 1601 Paroxetine HCl 20 MG DAILY 07/13 0900 AC 07/15 (PAXIL) PO 08/12 0859 0843 Acetaminophen 650 MG Q4H PRN PRN 07/12 2245 AC (TYLENOL) PO 08/11 2244 Hydrocodone Bitart/ 1 TAB Q6H PRN PRN 07/12 224 5 AC 07/14 Acetaminophen PO 07/17 2244 2302 (NORCO 5/325) Electrolytic, Caloric, And Faiza Sig/William Start time Last Medication Dose Route Stop Time Status Admin Furosemide 40 MG BID 9A 5P 07/15 0900 AC 07/15 (LASIX) PO 08/13 1659 1736 Potassium Chloride 40 MEQ DAILY 07/15 0900 AC 0 07/15 (POTASSIUM CHLORIDE PO 08/14 0859 0844 20MEQ TAB.ER) Dextrose/Water 125 ML ASDIR PRN 07/14 1400 CKD (DEXTROSE 10% IN IV 08/13 1359 WATER) Dextrose/Water 250 ML ASDIR PRN 07/14 1400 CKD (DEXTROSE 10% IN IV 08/13 1359 WATER) Lactulose 20 GM Q6H PRN PRN 07/12 2245 AC (LACTULOSE) PO 08/11 2244 Potassium Chloride 40 MEQ DAILY PRN PRN 07/12 2 245 AC (POTASSIUM CHLORIDE PO 08/11 2244 20MEQ TAB.ER) Gastrointestinal Drugs Sig/William Start time Last Medication Dose Route Stop Time Status Admin Docusate Sodium 100 MG BID PRN PRN 07/12 2245 A C (COLACE) PO 08/11 224 Ondansetron HCl 4 MG Q4H PRN PRN 07/12 2245 AC (ZOFRAN) IV 08/11 224 Hormones And Synthetic Substit Sig/William Start time Last Medication Dose Route Stop Time Status Admin Glucagon 1 MG ASDIR PRN 07/14 1400 AC (GLUCAGON) IM 08/13 1359 Insulin Glargine 30 UNIT BEDTIME 07/13 2100 AC 07/14 (Semglee) SUBQ 08/12 2059 2051 Insulin Human Lispro 15 UNIT AC 07/13 1630 AC 0 07/15 (HUMALOG) SUBQ 08/12 1629 1736 Vitamins Sig/William Start time Last Medication Dose Route Stop Time Status Admin Cholecalciferol 1,000 INTL.UNITS DAILY 07/13 09 00 CKD 07/15 (VITAMIN D) PO 08/12 0859 0844 Allergies: Coded Allergies: adhesive tape (RASH 06/15/22) niacin (Mild, ANXIETY 06/15/22) zolpidem (From AMBIEN) (CONFUSION 06/15/22) Review of Systems All systems rev neg: except as marked Objective General VS/I O: Vital Signs Date Temp Pulse Resp B/P B/P Mean Pulse Ox FiO 2 07/14-07/15 97.5-98.2 54-61 - 98-155/41-80 63.1-101.5 92-95 Last Documented: Result Date Time Pulse Ox 94 07/15 1534 B/P 98/62 07/15 1534 B/P Mean 73.7 07/15 1534 O2 Delivery Room air 07/15 1534 Temp 98.2 07/15 1534 Pulse 54 07/15 1534 Resp 17 07/15 1534 Vital Signs: Date Time Temp Pulse Resp B/P B/P Pulse O2 O2 F low FiO2 Mean Ox Delivery Rate 07/15 1534 98.2 54 17 98/62 73.7 94 Room air 07/15 1028 97.7 55 18 127/52 76.9 94 Room air 07/15 0715 97.5 61 19 128/67 87.6 94 Room air 07/15 0510 97.7 54 18 114/67 82.9 95 Room air 07/15 0113 98.1 56 18 108/41 63.1 92 Room air 07/14 2301 60 15 131/80 96.8 95 Room air 07/14 2053 95 Room air 07/14 2034 97.7 59 18 155/75 101.5 95 Room air 24 hour I O ending at 0700: 07/15 0700 07/14 1900 Intake Total 780.00 Output Total Balance 780.00 Intake, IV 200.00 Intake, Oral 580 Number Voids 4 PATIENT WEIGHT: Weight (lb): Weight (oz): Weight (kg): 98.182 Physical Exam General appearance: no acute distress, conversat ional Head/Eyes: atraumatic Cardiovascular: regular rate rhythm Respiratory: clear to auscultation, symmetric ex pansion, no distress Abdomen: no distention, no guarding 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, oriented X 3 Skin: erythema, sternal wound vac Results Findings/Data: Laboratory Tests 07/15 07/15 07/15 07/15 07/15 1535 1028 0716 0500 0500 Chemistry Sodium (134 - 147 mEq/L) 144 Potassium (3.4 - 5.0 mEq/L) 3.8 Chloride (100 - 108 mEq/L) 107 Carbon Dioxide (21 - 33 mEq/l) 30 Anion Gap (0 - 20) 11 BUN (7 - 18 mg/dL) 12 Creatinine (0.6 - 1.3 mg/dL) 1.1 Glomerular Filtr Rate (80 - 90) 55.8 L Glucose (70 - 110 mg/dL) 120 H POC Glucose (70 - 110 MG/DL) 95 188 H 132 H Calcium (8.0 - 10.5 mg/dL) 9.5 B-Natriuretic Peptide (0 - 100 239.0 H PG/ML) 07/14 2028 Chemistry POC Glucose (70 - 110 MG/DL) 156 H Laboratory Tests 07/15 0500 Hematology WBC (4.5 - 11.0 x10 3/uL) 6.6 RBC (3.54 - 5.02 x10 6/uL) 3.60 Hgb (11.0 - 15.0 g/dL) 11.2 Hct (33.0 - 45.0 %) 34.7 MCV (81.0 - 99.0 fL) 96.4 MCH (27.0 - 33.0 pg) 31.1 MCHC (33.0 - 37.0 g/dL) 32.3 L RDW (11.5 - 14.5 %) 17.3 H Plt Count (150 - 400 x10 3/uL) 207 MPV (7.0 - 9.0 fL) 10.1 H Neut % (Auto) (56.0 - 77.0 %) 51.9 L Lymph % (Auto) (14.0 - 32.0 %) 32.8 H [place] % (Auto) (4.8 - 9.0 %) 8.1 Eos % (Auto) (0.3 - 3.7 %) 6.4 H Baso % (Auto) (0.0 - 2.0 %) 0.6 Neut # (Auto) (2.0 - 7.6 x10 3/uL) 3.41 Lymph # (Auto) (1.0 - 3.8 x10 3/uL) 2.15 [place] # (Auto) (0.1 - 0.8 x10 3/uL) 0.53 Eos # (Auto) (0.0 - 0.2 x10 3/uL) 0.42 H Baso # (Auto) (0.0 - 0.2 x10 3/uL) 0.04 Abs Immat Gran (auto) (0.00 - 0.03 x10 3/uL) 0. 01 Add Manual Diff NO Immature Gran % (0.0 - 2.0 %) 0.2 Nucleated RBC % (0 - 0 %) 0.0 Nucleated RBCs # (Man) (0.0 - 0.1 x10 3/uL) 0. 00 Radiology data: CT: 1. Open midline sternotomy wound at the skin terri face. There is no organized subcutaneous fluid collection/abscess given history. 2. Minimal substernal fluid is unorganized and l ikely postoperative. 3. Small left pleural effusion with left lung ba se atelectasis. Diagnosis, Assessment Plan Free Text DxA P Notes Free text DxA P notes: A: Ms. Turpin is a 67 yo F who presents with: *Sternal Wound Dehiscence Infection s/p Debridem ent *Recent CABG *CAD *Atrial Fibrillation *T2DM -Ms. Turpin presents with superficial sternal wou nd dehiscence and infection status postdebridement. CT negative for abscess or bone involvement. Wound culture with CoNS. P: -Continue vancomycin. -Discontinued pip-tazo. -Check CRP. -Wound vac. Thank you for this consultation; will continue t o follow. at 2221 RPT #:[id number] END OF REPORT 2022-07-15 17:09:00-00:00 [facility] ([facility]) Clinical Note REPORT#:[id number] REPORT STATUS: Signed DATE:07/15/22 TIME: 1709 PATIENT: KALA TURPIN UNIT #: [id number] ROOM/BED: [place] [id number] : 57 AGE: 67 SEX: F ATTEND: Teresa Cheng MD ADM AUTHOR: Monica Spaer MD * ALL edits or amendments must be made on the el [employer]ronic/computer document * Clinical Note Note: Patient reviewed. Antibiotics areappropriate at this point Labs ordered full consult note to follow in a.m. at 1710 RPT #:[id number] END OF REPORT 2022-07-15 13:18:00-00:00 [facility] ([facility]) Hospitalist Progress Note REPORT#:[id number] REPORT STATUS: Signed DATE:07/15/22 TIME: 1318 PATIENT: KALA TURPIN UNIT #: [id number] ROOM[address]BED: [address] : [address] AGE: 67 SEX: F ATTEND: Teresa Cheng MD ADM AUTHOR: Myron Jackson MD * ALL edits or amendments must be made on the el [employer]/computer document * Subjective Chief complaint: wants to go home soon. awaiting home wound vac. Objective General VS/I O: Vital Signs: Date Time Temp Pulse Resp B/P B/P Pulse O2 O2 F low FiO2 Mean Ox Delivery Rate 07/15 1028 97.7 55 18 127/52 76.9 94 Room air 07/15 0715 97.5 61 19 128/67 87.6 94 Room air 07/15 0510 97.7 54 18 114/67 82.9 95 Room air 07/15 0113 98.1 56 18 108/41 63.1 92 Room air 07/14 2301 60 15 131/80 96.8 95 Room air 07/14 2053 95 Room air 07/14 2034 97.7 59 18 155/75 101.5 95 Room air 07/14 1555 97.7 53 18 142/64 90.1 95 Room air 24 hour I O ending at 0700: 07/15 0700 07/14 1900 Intake Total 780.00 Output Total Balance 780.00 Intake, IV 200.00 Intake, Oral 580 Number Voids 4 PATIENT WEIGHT: Weight (lb): Weight (oz): Weight (kg): 98.182 Physical Exam General appearance: alert, awake Head/Eyes: atraumatic, normocephalic, PERRLA ENT: moist mucosal membranes Neck: full range of motion, non-tender, supple/n o meningismus Cardiovascular: normal heart sounds, regular rat e rhythm Respiratory: aerating well, clear to auscultatio n, no distress Abdomen: non-tender, normal bowel sounds, soft, no distention Extremities: edema, moves all Musculoskeletal: normal inspection 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, oriented X 3, CNII-XII intact Skin: sternal draining wound, surgical excision, some bleeding Psychiatry: normal affect, normal judgment/insig ht, normal mood Results Radiology data: Laboratory Tests 07/15/22 0500: [Embedded Image Not Available] 07/14/22 0600: [Embedded Image Not Available] Current Medications Sig/William Start time Last Medication Dose Route Stop Time Status Admin Amiodarone HCl 200 MG DAILY 07/15 0900 AC 07/15 PO 08/14 0859 0845 Furosemide 40 MG BID 9A 5P 07/15 0900 AC 07/15 PO 08/13 1659 0842 Potassium Chloride 40 MEQ DAILY 07/15 0900 AC PO 08/14 0859 0844 Furosemide 40 MG BID 9A 5P 07/14 1700 DC 07/14 IV 07/14 1701 1753 Dextrose/Water 125 ML ASDIR PRN 07/14 1400 CKD IV 08/13 1359 Dextrose/Water 250 ML ASDIR PRN 07/14 1400 CKD IV 08/13 1359 Glucagon 1 MG ASDIR PRN 07/14 1400 AC IM 08/13 1359 Atorvastatin Calcium 40 MG 2100 07/13 2100 AC PO 08/12 Insulin Glargine 30 UNIT BEDTIME 07/13 2100 AC 0 07/14 SUBQ 08/12 Melatonin 6 MG BEDTIME 07/13 2100 AC 07/14 PO 08/12 Vancomycin HCl 1,500 MG Q24H 07/13 1800 AC 07/14 Sodium Chloride 250 ML IV 07/18 1759 1753 Insulin Human Lispro 15 UNIT AC 07/13 1630 AC 0 07/15 SUBQ 08/12 1629 1236 Amiodarone HCl 200 MG BID 07/13 0900 DC 07/14 PO 08/12 0859 0840 Aspirin 81 MG DAILY 07/13 0900 AC 07/15 PO 08/12 0859 0842 Cholecalciferol 1,000 INTL.UNITS DAILY 07/13 090 0 CKD 07/15 PO 08/12 0859 0844 Clopidogrel 75 MG DAILY 07/13 0900 r 07/15 Bisulfate PO 08/12 0859 1236 Ferrous Sulfate 325 MG DAILY 07/13 0900 AC 07/15 PO 08/12 0859 0843 Gabapentin 300 MG TID 07/13 0900 AC 07/15 PO 08/12 0859 0842 Metoprolol Tartrate 12.5 MG Q12HR 07/13 0900 AC 07/15 PO 08/12 0859 0843 Paroxetine HCl 20 MG DAILY 07/13 0900 AC 07/15 PO 08/12 0859 0843 Miscellaneous 1 EACH ASDIR 07/12 2345 CKD Information IV 08/11 2344 Piperacillin Sod/ 3.375 GM Q8H 07/12 2299 AC Tazobactam Sod IV 07/17 Sodium Chloride 100 ML Acetaminophen 650 MG Q4H PRN PRN 07/12 2244 AC PO 08/12 2243 Docusate Sodium 100 MG BID PRN PRN 07/12 2244 AC PO 08/12 2243 Enoxaparin Sodium 40 MG Q24H 07/12 2244 DA 07/12 SUBQ 08/11 Hydralazine HCl 10 MG Q6H PRN PRN 07/12 2244 AC IV 08/12 2243 Hydrocodone Bitart/ 1 TAB Q6H PRN PRN 07/12 2244 AC 07/14 Acetaminophen PO 07/17 Lactulose 20 GM Q6H PRN PRN 07/12 2244 AC PO 08/12 2243 Ondansetron HCl 4 MG Q4H PRN PRN 07/12 2244 AC IV 08/12 2243 Potassium Chloride 40 MEQ DAILY PRN PRN 07/12 AC PO 08/12 2243 Laboratory Tests: 07/15 07/15 07/15 07/15 07/14 1028 0716 0500 0500 2028 Chemistry Sodium (134 - 147 mEq/L) 144 Potassium (3.4 - 5.0 mEq/L) 3.8 Chloride (100 - 108 mEq/L) 107 Carbon Dioxide (21 - 33 mEq/l) 30 Anion Gap (0 - 20) 11 BUN (7 - 18 mg/dL) 12 Creatinine (0.6 - 1.3 mg/dL) 1.1 Glomerular Filtr Rate (80 - 90) 55.8 L Glucose (70 - 110 mg/dL) 120 H POC Glucose (70 - 110 MG/DL) 188 H 132 H 156 H Calcium (8.0 - 10.5 mg/dL) 9.5 B-Natriuretic Peptide (0 - 100 PG/ML) 239.0 H Hematology WBC (4.5 - 11.0 x10 3/uL) 6.6 RBC (3.54 - 5.02 x10 6/uL) 3.60 Hgb (11.0 - 15.0 g/dL) 11.2 Hct (33.0 - 45.0 %) 34.7 MCV (81.0 - 99.0 fL) 96.4 MCH (27.0 - 33.0 pg) 31.1 MCHC (33.0 - 37.0 g/dL) 32.3 L RDW (11.5 - 14.5 %) 17.3 H Plt Count (150 - 400 x10 3/uL) 207 MPV (7.0 - 9.0 fL) 10.1 H Neut % (Auto) (56.0 - 77.0 %) 51.9 L Lymph % (Auto) (14.0 - 32.0 %) 32.8 H [place] % (Auto) (4.8 - 9.0 %) 8.1 Eos % (Auto) (0.3 - 3.7 %) 6.4 H Baso % (Auto) (0.0 - 2.0 %) 0.6 Neut # (Auto) (2.0 - 7.6 x10 3/uL) 3.41 Lymph # (Auto) (1.0 - 3.8 x10 3/uL) 2.15 [place] # (Auto) (0.1 - 0.8 x10 3/uL) 0.53 Eos # (Auto) (0.0 - 0.2 x10 3/uL) 0.42 H Baso # (Auto) (0.0 - 0.2 x10 3/uL) 0.04 Abs Immat Gran (auto) (0.00 - 0.03 0.01 x10 3/uL) Add Manual Diff NO Immature Gran % (0.0 - 2.0 %) 0.2 Nucleated RBC % (0 - 0 %) 0.0 Nucleated RBCs # (Man) (0.0 - 0.1 0.00 x10 3/uL) 07/14 07/14 1715 1554 Chemistry POC Glucose (70 - 110 MG/DL) 132 H Toxicology Vancomycin Trough (10.0 - 20.0 mcg/mL) 10.7 Diagnosis, Assessment Plan Problem List/A P: 1. Post-operative infection 2. Dyspepsia 3. Anemia 4. Afib 5. Coronary artery disease 6. S/P CABG x 4 7. Type 2 diabetes mellitus 8. Hypertension Consultants: cardiology Free Text DxA P Notes Free text DxA P notes: 67-year-old female med histo ry significant for CAD s/p CABG, recently evaluated at CT clinic discovered to h ave wound dehiscence at CABG site admitted for wound debridement, chest imaging, and wound VAC placem ent. * S/p wound debridement at bedside this a.m. * chest imaging revealed negative abscess, or ot her subq fluid collections * hyperglycemia noted, continue home insulin reg imen 30 Units bedtime long acting, and 15 Units AC * BP elevated, will restart hypertensive meds ca utiously given reported h/o hypotension while on meds * Continue IV vanc, wound care consulted * Case management consulted for wound vac * Continue home DAPT therapy, lopressor, and prn hydralazine * Follow repeat am labs 07/13- pending wound vac placement. 07/14- wound vac placed, pain controlled , pending home wound vac, CM following and assisting. 07/15- Wound cx growing coag negative staph. getting IV vanc and IV zosyn in the hospital. Will ask ID for recommedations for abx for home once wound vac is arranged. Dvt ppx: scds code: full dispo: per cards/cvt surgery 07/15- d/w nursing. awaiting home wound v ac delivery (delay by [employer] company). on vanc/zosyn here. ask ID for help in what she will need for home for antibiotics for the post op wound infection. Electronically Signed by Myron Jackson MD on 06/25 05/18 at 1325 RPT #:[id number] END OF REPORT 2022-07-15 11:21:00-00:00 [facility] ([facility]) Pharmacy Prog.Note-Vancomycin REPORT#:[id number] REPORT STATUS: Signed DATE:07/15/22 TIME: 112 PATIENT: KALA TURPIN UNIT #: [id number] ROOM/BED: [place] [id number] : 57 AGE: 67 SEX: F ATTEND: Teresa Cheng MD ADM AUTHOR: [facility] * ALL edits or amendments must be made on the el [employer]/computer document * Vancomycin Vancomycin Medication Therapy Goal: trough 10-15 mcg/mL Indication for treatment: CABG Site Infection VS and I/O: Vital Signs Date Temp Pulse Resp B/P B/P Mean Pulse Ox FiO2 07/12-07/15 97.5-98.4 49-61 - 108-188/41-80 63.1-113.3 92-96 72 hours ending at 0700 07/15 0700 07/14 1900 Intake 780.00 740.00 Total Output Total Balance 780.00 740.00 Intake, IV 200.00 200.00 Intake, 580 540 Oral Number 0 0 Bowel Movements Number 4 4 2 Voids Patient 98.182 kg Weight Weight Stated/Re ported Measuremen t Method 72 Hour I O Total 07/15 0707/14 07 Intake Total 780.00 740.00 Output Total Balance 780.00 740.00 Labs: Laboratory Tests: 07/14 1714 Toxicology Vancomycin Trough (10.0 - 20.0 mcg/mL) 10.7 Laboratory Test : 07/15 07/14 07/13 07/12 0500 0600 0444 1704 Chemistry BUN (7 - 18 mg/dL) 12 H Creatinine (0.6 - 1.3 mg/dL) 1.1 1.1 1.1 Hematology WBC (4.5 - 11.0 x10 3/uL) 6.6 6.6 6.7 7.5 Microbiology: 07/13 0300 CHEST: Wound Culture - RES 07/13 1703 URINE: Urine Culture - COMP 07/13 1703 BLOOD: Blood Culture - RES 07/13 1703 BLOOD: Blood Culture - RES Treatment plan: consult Regimen: 67yo female med history significant for CAD s/p CABG 06/16/22, recently evaluated at CT clinic and discovered to have wo und dehiscence at CABG site admitted for wound debrideme nt, chest imaging, and wound VAC placement. Pharmacy was consulted for the management of Vancomycin. Consulting Provider: Mayito High Indication: CABG Site Infection Goal Trough: 10-15 mcg/mL Contcomitant Abx: Zosyn Day of Therapy: 4 Duration of Therapy: TBD Assessment: Labs/Vitals * Afebrile/24hrs, WBC 6.6, BUN/SCr 12/1.1, UOP/2 4hrs 4 voids Micro * WCx (07/13) many CoNS * UCx (07/12) contaminated * BCx (07/12) NGTD Imaging * Chest CT (07/12) no organized SQ fluid/collect ion abscess given history Plan: * Continue Vancomycin 1.5gm IV q24h * Draw trough 07/18 @1730 at 1132 RPT #:[id number] END OF REPORT 2022-07-15 09:56:00-00:00 [facility]L [facility] Cardiothoracic Surgery Prog REPORT#:[id number] REPORT STATUS: Signed DATE:07/15/22 TIME: 955 PATIENT: KALA TURPIN UNIT #: [id number] ROOM/BED: [place] [id number] : 57 AGE: 67 SEX: F ATTEND: Teresa Cheng MD ADM AUTHOR: Kassie Aden * ALL edits or amendments must be made on the [employer]/computer document * Subjective Chief complaint: S/p CABG Sternal wound dehiscence Review of Systems Constitutional: Denies: chills, fever, malaise. Allergy/Immun: Denies: allergic reaction. ENT: Denies: sore throat. Respiratory: Denies: hemoptysis, SOB. Cardiovascular: Denies: palpitations. GI: Denies: abdominal pain, nausea, vomiting. Heme: Denies: bleeding. Neuro: Denies: dizziness, headache. Objective General VS/I O Vital Signs Date Temp Pulse Resp B/P B/P Mean Pulse Ox FiO2 07/14-07/15 97.5-98.1 53-61 - 108-155/41-80 63.1-101.5 92-95 Last Documented: Result Date Time Pulse Ox 94 07/15 714 B/P 128/67 07/15 714 B/P Mean 87.6 07/15 714 O2 Delivery Room air 07/15 714 Temp 97.5 07/15 07 Pulse 61 07/15 0715 Resp 19 07/15 714 24 hour I O ending at 0700: 07/15 0700 07/14 1900 Intake Total 780.00 Output Total Balance 780.00 Intake, IV 200.00 Intake, Oral 580 Number Voids 4 PATIENT WEIGHT: Weight (lb): Weight (oz): Weight (kg): 98.182 Physical Exam General appearance: alert, oriented, pleasant, m ental status normal, no respiratory distress Wound/incision: Location: Sternum Site condition: wound vac in place Neck: supple/no meningismus Cardiovascular: normal heart sounds, regular rat e rhythm Respiratory: aerating well, symmetric expansion, no distress Abdomen: soft, non-tender, no distention Extremities: edema, moves all 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, oriented X 3, normal speech, n o motor deficits Psychiatry: normal affect, normal mood Current Medications Medications: Active Meds + DC'd Last 24 Hrs Amiodarone HCl (CORDARONE) 200 MG DAILY PO Furosemide (LASIX) 40 MG BID 9A 5P PO Potassium Chloride (POTASSIUM CHLORIDE 20MEQ TAB .ER) 40 MEQ DAILY PO Furosemide (LASIX 40 mg/4 mL INJECTION) 40 MG BI D 9A 5P IV (DC) Dextrose/Water (DEXTROSE 10% IN WATER) 125 ML DIR PRN IV (CKD) Dextrose/Water (DEXTROSE 10% IN WATER) 250 ML DIR PRN IV (CKD) Glucagon (GLUCAGON) 1 MG ASDIR PRN IM Furosemide (LASIX 40 mg/4 mL INJECTION) 60 MG ON CE ONE IV (DC) Potassium Chloride (POTASSIUM CHLORIDE 20MEQ TAB .ER) 40 MEQ ONCE ONE PO (DC) Atorvastatin Calcium (LIPITOR) 40 MG 2100 PO Insulin Glargine (Semglee) 30 UNIT BEDTIME SUBQ Melatonin (Melatonin) 6 MG BEDTIME PO Vancomycin HCl (Vancomycin 1,500 mg Inj (B2)) 1, 500 MG Q24H IV Sodium Chloride (SODIUM CHLORIDE 0.9%) 250 ML Insulin Human Lispro (HUMALOG) 15 UNIT AC SUBQ Amiodarone HCl (CORDARONE) 200 MG BID PO (DC) Aspirin (ASPIRIN) 81 MG DAILY PO Cholecalciferol (VITAMIN D) 1,000 INTL.UNITS AMISH LY PO (CKD) Clopidogrel Bisulfate (Plavix) 75 MG DAILY PO (r ) Ferrous Sulfate (FERROUS SULFATE) 325 MG DAILY P O Gabapentin (NEURONTIN) 300 MG TID PO Metoprolol Tartrate (LOPRESSOR) 12.5 MG Q12HR PO Paroxetine HCl (PAXIL) 20 MG DAILY PO Miscellaneous Information (VANCOMYCIN PHARMACY T O DOSE) 1 EACH ASDIR IV (CKD) Piperacillin Sod/Tazobactam Sod (ZOSYN 3.375GM) 3.375 GM Q8H IV Sodium Chloride (SODIUM CHLORIDE 0.9% 100 ML) 100 ML Acetaminophen (TYLENOL) 650 MG Q4H PRN PRN PO Docusate Sodium (COLACE) 100 MG BID PRN PRN PO Enoxaparin Sodium (lovENOX) 40 MG Q24H SUBQ (DA) Hydralazine HCl (APRESOLINE) 10 MG Q6H PRN PRN I V Hydrocodone Bitart/Acetaminophen (NORCO 5/325) 1 TAB Q6H PRN PRN PO Lactulose (LACTULOSE) 20 GM Q6H PRN PRN PO Ondansetron HCl (ZOFRAN) 4 MG Q4H PRN PRN IV Potassium Chloride (POTASSIUM CHLORIDE 20MEQ TAB .ER) 40 MEQ DAILY PRN PRN PO Results Findings/Data: Laboratory Tests 07/15 07/15 07/14 07/14 07/14 0716 0500 2029 1554 1123 Chemistry Sodium (134 - 147 mEq/L) 144 Potassium (3.4 - 5.0 mEq/L) 3.8 Chloride (100 - 108 mEq/L) 107 Carbon Dioxide (21 - 33 mEq/l) 30 Anion Gap (0 - 20) 11 BUN (7 - 18 mg/dL) 12 Creatinine (0.6 - 1.3 mg/dL) 1.1 Glomerular Filtr Rate (80 - 90) 55.8 L Glucose (70 - 110 mg/dL) 120 H POC Glucose (70 - 110 MG/DL) 132 H 156 H 132 H 156 H Calcium (8.0 - 10.5 mg/dL) 9.5 Laboratory Tests 07/15 0500 Hematology WBC (4.5 - 11.0 x10 3/uL) 6.6 RBC (3.54 - 5.02 x10 6/uL) 3.60 Hgb (11.0 - 15.0 g/dL) 11.2 Hct (33.0 - 45.0 %) 34.7 MCV (81.0 - 99.0 fL) 96.4 MCH (27.0 - 33.0 pg) 31.1 MCHC (33.0 - 37.0 g/dL) 32.3 L RDW (11.5 - 14.5 %) 17.3 H Plt Count (150 - 400 x10 3/uL) 207 MPV (7.0 - 9.0 fL) 10.1 H Neut % (Auto) (56.0 - 77.0 %) 51.9 L Lymph % (Auto) (14.0 - 32.0 %) 32.8 H [place] % (Auto) (4.8 - 9.0 %) 8.1 Eos % (Auto) (0.3 - 3.7 %) 6.4 H Baso % (Auto) (0.0 - 2.0 %) 0.6 Neut # (Auto) (2.0 - 7.6 x10 3/uL) 3.41 Lymph # (Auto) (1.0 - 3.8 x10 3/uL) 2.15 [place] # (Auto) (0.1 - 0.8 x10 3/uL) 0.53 Eos # (Auto) (0.0 - 0.2 x10 3/uL) 0.42 H Baso # (Auto) (0.0 - 0.2 x10 3/uL) 0.04 Abs Immat Gran (auto) (0.00 - 0.03 x10 3/uL) 0. 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 She presented to the clinic yesterday (07/13) and was found to have sternal w ound dehiscence and possible infection. She was sent the ED for further evaluation with CT chest, initiation of antibiotics, wound debridement and wound vac placement. Patient denies fever, chest pain or shortness of breath. PLAN CT chest images reviewed with Dr. Danny fam. No subcutaneous fluid collection or abscess Status post wound debridemen t at the bedside by Dr Morrissey (see separate note for details). Patient had oozing from wound that sub sided. Wound vac placed Continue antibiotics, monito cultures Complaining of orthopnea and bilateral lower ext remity edema. Cardiology consulted residential program manager consulted continue wound VAC at [facility] e 07/15 Remains in stable condition Home wound vac pending to be released Afebrile, WBCs NL. On broad-spectrum antibiotics by primary team Consultants: cardiology at 1005 at 0933 RPT #:[id number] END OF REPORT 2022-07-15 06:41:00-00:00 [facility] ([facility]) Cardiology Progress Note REPORT#:[id number] REPORT STATUS: Signed DATE:07/15/22 TIME: 06 PATIENT: KALA TURPIN UNIT #: [id number] ROOM/BED: [place] [id number] : 57 AGE: 67 SEX: F ATTEND: Teresa Cheng MD ADM AUTHOR: Amara Waldrop MD * ALL edits or amendments must be made on the [employer]/computer document * Subjective Chief complaint: Sternal wound drainage and lower extremity edema HPI: 67-year-old female with medi dylan history of CAD, MA, CABG with ALAA 05/27/22, post -op afib s/p DCC, hypertension, diabetes mellitus, CVA, peripheral neuropathy, Charcot's foot who is sent to the hospital from Dr. Rogel's clinic due to sternal wound dehiscence and drainage. She is s/p wound debridement and Vacuum- assisted wound closure devic e has been applied, and antibiotic has been started. Cardiology is consulted for medical optimization. The patient has pitting edema of bilateral lower extremity. She has no other c omplaint. Objective General VS/I O: 24 hour I O ending at 0700: 07/15 0700 07/14 1900 Intake Total 500.00 Output Total Balance 500.00 Intake, IV 100.00 Intake, Oral 400 Number Voids 2 Vital Signs: Date Time Temp Pulse Resp B/P B/P Pulse O2 O2 F low FiO2 Mean Ox Delivery Rate 07/15 0510 97.7 54 18 114/67 82.9 95 Room air 07/15 0113 98.1 56 18 108/41 63.1 92 Room air 07/14 2301 60 15 131/80 96.8 95 Room air 07/143 95 Room air 07/144 97.7 59 18 155/75 101.5 95 Room air 07/14 1555 97.7 53 18 142/64 90.1 95 Room air 07/14 1123 58 18 131/72 91.9 95 Room air 07/14 0716 97.5 56 18 120/61 80.6 94 Room air PATIENT WEIGHT: Weight (lb): Weight (oz): Weight (kg): 98.182 Medications: Active Meds + DC'd Last 24 Hrs Amiodarone HCl (CORDARONE) 200 MG DAILY PO Furosemide (LASIX) 40 MG BID 9A 5P PO Potassium Chloride (POTASSIUM CHLORIDE 20MEQ TAB .ER) 40 MEQ DAILY PO Furosemide (LASIX 40 mg/4 mL INJECTION) 40 MG BI D 9A 5P IV (DC) Dextrose/Water (DEXTROSE 10% IN WATER) 125 ML DIR PRN IV (CKD) Dextrose/Water (DEXTROSE 10% IN WATER) 250 ML DIR PRN IV (CKD) Glucagon (GLUCAGON) 1 MG ASDIR PRN IM Furosemide (LASIX 40 mg/4 mL INJECTION) 60 MG ON CE ONE IV (DC) Potassium Chloride (POTASSIUM CHLORIDE 20MEQ TAB .ER) 40 MEQ ONCE ONE PO (DC) Atorvastatin Calcium (LIPITOR) 40 MG 2100 PO Insulin Glargine (Semglee) 30 UNIT BEDTIME SUBQ Melatonin (Melatonin) 6 MG BEDTIME PO Vancomycin HCl (Vancomycin 1,500 mg Inj (B2)) 1, 500 MG Q24H IV Sodium Chloride (SODIUM CHLORIDE 0.9%) 250 ML Insulin Human Lispro (HUMALOG) 15 UNIT AC SUBQ Amiodarone HCl (CORDARONE) 200 MG BID PO (DC) Aspirin (ASPIRIN) 81 MG DAILY PO Cholecalciferol (VITAMIN D) 1,000 INTL.UNITS AMISH LY PO (CKD) Clopidogrel Bisulfate (Plavix) 75 MG DAILY PO (D A) Ferrous Sulfate (FERROUS SULFATE) 325 MG DAILY P O Gabapentin (NEURONTIN) 300 MG TID PO Metoprolol Tartrate (LOPRESSOR) 12.5 MG Q12HR PO Paroxetine HCl (PAXIL) 20 MG DAILY PO Miscellaneous Information (VANCOMYCIN PHARMACY T O DOSE) 1 EACH ASDIR IV (CKD) Piperacillin Sod/Tazobactam Sod (ZOSYN 3.375GM) 3.375 GM Q8H IV Sodium Chloride (SODIUM CHLORIDE 0.9% 100 ML) 1 00 ML Acetaminophen (TYLENOL) 650 MG Q4H PRN PRN PO Docusate Sodium (COLACE) 100 MG BID PRN PRN PO Enoxaparin Sodium (lovENOX) 40 MG Q24H SUBQ (DA) Hydralazine HCl (APRESOLINE) 10 MG Q6H PRN PRN I V Hydrocodone Bitart/Acetaminophen (NORCO 5/325) 1 TAB Q6H PRN PRN PO Lactulose (LACTULOSE) 20 GM Q6H PRN PRN PO Ondansetron HCl (ZOFRAN) 4 MG Q4H PRN PRN IV Potassium Chloride (POTASSIUM CHLORIDE 20MEQ TAB .ER) 40 MEQ DAILY PRN PRN PO Physical Exam General appearance: alert, awake Neck: non-tender, no JVD Cardiovascular: CV assessment: pedal edema, regular rate and rh ythm Respiratory: clear to auscultation, no distress Abdomen: soft, non-tender, no distention Lower extremity: LE assessment: edema (2+) Musculoskeletal: normal inspection 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, oriented X 3, normal speech Wound/incision: Location: sternal wound on wound VAC Psychiatry: normal affect, normal judgment/insig ht, normal mood, no hallucinations Results Findings/Data: Laboratory Tests 07/14 1554 1123 0716 Chemistry POC Glucose (70 - 110 MG/DL) 156 H 132 H 156 H 156 H Laboratory Tests 07/14 1715 Toxicology Vancomycin Trough (10.0 - 20.0 mcg/mL) 10.7 Diagnosis, Assessment Plan Consultants: cardiology Free Text DxA P Notes Free Text DxA P Notes: 67-year-old female with medi dylan history of CAD, MA, CABG with ALAA 05/27/22, post -op afib s/p DCC, hypertension, diabetes mellitus, CVA, peripheral neuropathy, Charcot's foot who is sent to the hospital from Dr. Rogel's clinic due to sternal wound dehiscence and drainage. She is s/p wound debridement and Vacuum- assisted wound closure devic e has been applied, and antibiotic has been started. Cardiology is consulted for medical optimization. The patient has pitting edema of bilateral lower extremity. She has no other c omplaint. 1. Sternal wound infection s/p wound debridement on antibiotic Wound VAC in place 2. CAD s/p CABG x 4 (LIN-LAD, SVG-Elisabet, SVG-OM, SVG-PDA) Continue aspirin, beta-xander, statin 3. Volume overload/LE edema PO lasix 40 mg BID Potassium chloride PO mEq PO daily patient is advised to follow -up with Dr. Linn next week, she has not seen him since his surgery 4. Hypertension BP stable continue BB 5. Diabetes mellitus Manage per primary team Electronically Signed by Amara Waldrop MD on at 0643 RPT #:[id number] END OF REPORT 2022-07-14 12:21:00-00:00 [facility]ACL [facility] Prog.Note-Vancomycin REPORT#:[id number] REPORT STATUS: Signed DATE:07/14/22 TIME: 1221 PATIENT: KALA TURPIN UNIT #: [id number] ROOM/BED: [place] [address] : 57 AGE: 67 SEX: F ATTEND: Teresa Cheng MD ADM AUTHOR: Tameka [facility] * ALL edits or amendments must be made on the [employer]/computer document * See Addendum Vancomycin Vancomycin Medication Therapy Goal: trough 10-15 mcg/mL Indication for treatment: CABG Site Infection VS and I/O: Vital Signs Date Temp Pulse Resp B/P B/P Mean Pulse Ox FiO2 07/12-07/14 97.5-98.4 49-59 16-18 120-188/54-80 77.6-113.3 93-96 72 hours ending at 0700 07/14 0700 07/13 1900 07/13 0700 07/12 1900 07/11 0700 1900 Intake 740.00 Total Output Total Balance 740.00 Intake, IV 200.00 Intake, 540 Oral Number 0 0 Bowel Movements Number 4 2 Voids Patient 98.182 kg Weight Weight Stated/Rep orted Measuremen t Method 72 Hour I O Total 07/14 0700 07/13 0700 07/12 0700 Intake Total 740.00 Output Total Balance 740.00 Labs: Laboratory Test : 07/14 07/13 07/12 0600 0444 1704 Chemistry BUN (7 - 18 mg/dL) 18 19 H Creatinine (0.6 - 1.3 mg/dL) 1.1 1.1 Hematology WBC (4.5 - 11.0 x10 3/uL) 6.6 6.7 7.5 Microbiology: 07/13 0300 CHEST: Wound Culture - RES 07/12 1704 URINE: Urine Culture - RES 07/12 170 BLOOD: Blood Culture - RES 07/12 170 BLOOD: Blood Culture - RES Treatment plan: consult Regimen: 67yo female med history significant for CAD s/p CABG 06/16/22, recently evaluated at CT clinic and discovered to have wo und dehiscence at CABG site admitted for wound debrideme nt, chest imaging, and wound VAC placement. Pharmacy was consulted for the management of Vancomycin. Consulting Provider: Mayito High Indication: CABG Site Infection Goal Trough: 10-15 mcg/mL Day of Therapy: 3 Duration of Therapy: TBD Assessment: Labs/Vitals * Afebrile/24hrs, WBC 6.6, BUN/SCr 18/1.1, UOP/2 4hrs 4 voids Micro * WCx (07/13) many CoNS * UCx (07/12) contaminated * BCx (07/12) NGTD Imaging * Chest CT (07/12) no organized SQ fluid/collect ion abscess given history Plan: * Continue Vancomycin 1.5gm IV q24h for now * Draw trough 07/14 @1730 at 1228 Addendum 1: 07/14/22 1755 by Luca [facility] Pre-steady state level is 10 .7 mcg/mL, therapeutic. Contine current regimen and re-check level as indicated. Goal 10-15 mcg/mL. Electronically Signed by Luca Bush [facility] on 07/14 at 6555 RPT #:[id number] END OF REPORT 2022-07-14 11:27:00-00:00 [facility] ([facility]) Cardiology Consultation REPORT#:[id number] REPORT STATUS: Signed DATE:07/14/22 TIME: 1127 PATIENT: KALA TURPIN UNIT #: [id number] ROOM/BED: [place] [address] : 57 AGE: 67 SEX: F ATTEND: Teresa Cheng MD ADM AUTHOR: Ursula Perkins PELLET MACHINE OPERATOR * ALL edits or amendments must be made on the [employer]/computer document * History of Present Illness HPI Requesting Clinician: Dr. Rogel Reason for consult: Medical optimization Chief complaint: Sternal wound drainage and lower extremity edema PCP: PCP: Natasha Morrissey MD HPI: 67-year-old female with medi [facility] history of CAD, MA, CABG with ALAA 05/27/22, post -op afib s/p DCC, hypertension, diabetes mellitus, CVA, peripheral neuropathy, Charcot's foot who is sent to the hospital from Dr. Rogel's clinic due to sternal wound dehiscence and drainage. She is s/p wound debridement and Vacuum- assisted wound closure devic e has been applied, and antibiotic has been started. Cardiology is consulted for medical optimization. The patient has pitting edema of bilateral lower extremity. She has no other c omplaint. History - Adult longitudinal Past medical history: Reports: Atrial fibrillation, Coronary artery di sease, Diabetes mellitus, Hypertension, Ischemic stroke, Prior MA. Denies: Congestive heart failure, Kidney disease/stones. Additional medical history: Stroke Hypertension Hyperlipidemia Diabetes Obstructive sleep apnea Coronary artery disease Charcot syndrome Non Hodgkin's lymphoma Past surgical history: Reports: Hysterectomy, PCI. Additional surgical history: Exploratory laparotomy for infected mesh Additional family history: Father with hx of CAD Son of heart attack Alcohol use: Denies EtOH use Drug use: Denies recreational drugs Smoking status for patients 13 years old or olde r: Never Smoker Home medications: Home Medications: GABAPENTIN (NEURONTIN) 600 MG PO TID INSULIN GLARGINE (LANTUS) 30 UNITS SUBQ BEDTIME INSULIN LISPRO (HumaLOG) 15 UNITS SUBQ AC PARoxetine HCL (PAXIL) 20 MG PO DAILY Melatonin (MELATONIN) 10 MG SL BEDTIME CLOPIDOGREL (PLAVIX) 75 MG PO DAILY CHOLECALCIFEROL (VITAMIN D3) (VITAMIN D3) 1,000 UNITS PO DAILY FERROUS SULFATE (FEOSOL) 325 MG PO DAILY AMIODARONE (PACERONE) 200 MG PO BID ATORVASTATIN (LIPITOR) 40 MG PO 2100 METOPROLOL TARTRATE (LOPRESSOR) 12.5 MG PO Q12HR ASPIRIN 81 MG PO DAILY CYANOCOBALAMIN (VITAMIN B-12) 500 MCG PO DAILY Allergies: Coded Allergies: adhesive tape (RASH 06/15/22) niacin (Mild, ANXIETY 06/15/22) zolpidem (From AMBIEN) (CONFUSION 06/15/22) 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 Review of Systems Additional notes: As stated in HPI Objective General VS/I O: Vital Signs: Date Time Temp Pulse Resp B/P B/P Pulse O2 O2 F low FiO2 Mean Ox Delivery Rate 07/14 1123 58 18 131/72 91.9 95 Room air 07/14 0716 36.4 56 18 120/61 80.6 94 Room air 07/14 0329 36.5 58 16 137/72 93.7 93 Room air 07/13 2356 36.4 49 16 147/67 94.0 94 Room air 07/13 2115 96 Room air 07/13 1856 36.5 54 16 124/54 77.6 96 Room air 07/13 1549 36.9 50 17 155/79 104.0 96 07/13 1209 36.9 55 17 159/72 101.3 95 24 hour I O ending at 0700: 07/14 0700 07/13 1900 Intake Total 740.00 Output Total Balance 740.00 Intake, IV 200.00 Intake, Oral 540 Number 0 Bowel Movements Number Voids 4 PATIENT WEIGHT: Weight (lb): Weight (oz): Weight (kg): 98.182 Medications: Active Meds + DC'd Last 24 Hrs Atorvastatin Calcium (LIPITOR) 40 MG 2100 PO Insulin Glargine (Semglee) 20 UNIT BEDTIME SUBQ (DC) Insulin Glargine (Semglee) 30 UNIT BEDTIME SUBQ Melatonin (Melatonin) 6 MG BEDTIME PO Vancomycin HCl (Vancomycin 1,500 mg Inj (B2)) 1, 500 MG Q24H IV Sodium Chloride (SODIUM CHLORIDE 0.9%) 250 ML Insulin Human Lispro (HUMALOG) 10 UNIT AC SUBQ ( DC) Insulin Human Lispro (HUMALOG) 15 UNIT AC SUBQ Amiodarone HCl (CORDARONE) 200 MG BID PO Aspirin (ASPIRIN) 81 MG DAILY PO Cholecalciferol (VITAMIN D) 1,000 INTL.UNITS AMISH LY PO (CKD) Clopidogrel Bisulfate (Plavix) 75 MG DAILY PO (D A) Ferrous Sulfate (FERROUS SULFATE) 325 MG DAILY PO Gabapentin (NEURONTIN) 300 MG TID PO Metoprolol Tartrate (LOPRESSOR) 12.5 MG Q12HR PO Paroxetine HCl (PAXIL) 20 MG DAILY PO Miscellaneous Information (VANCOMYCIN PHARMACY T O DOSE) 1 EACH ASDIR IV (CKD) Piperacillin Sod/Tazobactam Sod (ZOSYN 3.375GM) 3.375 GM Q8H IV Sodium Chloride (SODIUM CHLORIDE 0.9% 100 ML) 1 00 ML Acetaminophen (TYLENOL) 650 MG Q4H PRN PRN PO Docusate Sodium (COLACE) 100 MG BID PRN PRN PO Enoxaparin Sodium (lovENOX) 40 MG Q24H SUBQ (DA ) Hydralazine HCl (APRESOLINE) 10 MG Q6H PRN PRN I V Hydrocodone Bitart/Acetaminophen (NORCO 5/325) 1 TAB Q6H PRN PRN PO Lactulose (LACTULOSE) 20 GM Q6H PRN PRN PO Ondansetron HCl (ZOFRAN) 4 MG Q4H PRN PRN IV Potassium Chloride (POTASSIUM CHLORIDE 20MEQ TAB .ER) 40 MEQ DAILY PRN PRN PO Physical Exam General appearance: obese, alert, awake, oriente d Neck: non-tender, no JVD Cardiovascular: CV assessment: pedal edema, regular rate and rh ythm Respiratory: clear to auscultation, no distress Abdomen: soft, non-tender, no distention Lower extremity: LE assessment: edema (2+) Musculoskeletal: normal inspection 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, oriented X 3, normal speech Wound/incision: Location: sternal wound on wound VAC Psychiatry: normal affect, normal judgment/insig ht, normal mood, no hallucinations Results Findings/Data: Laboratory Tests 07/14 07/13 07/13 07/13 0716 2025 1548 1208 Chemistry POC Glucose (70 - 110 MG/DL) 156 H 166 H 263 H 236 H Laboratory Tests 07/14 0600 Hematology WBC (4.5 - 11.0 x10 3/uL) 6.6 RBC (3.54 - 5.02 x10 6/uL) 3.48 L Hgb (11.0 - 15.0 g/dL) 10.6 L Hct (33.0 - 45.0 %) 33.8 MCV (81.0 - 99.0 fL) 97.1 MCH (27.0 - 33.0 pg) 30.5 MCHC (33.0 - 37.0 g/dL) 31.4 L RDW (11.5 - 14.5 %) 17.3 H Plt Count (150 - 400 x10 3/uL) 190 MPV (7.0 - 9.0 fL) 10.1 H Neut % (Auto) (56.0 - 77.0 %) 58.2 Lymph % (Auto) (14.0 - 32.0 %) 25.0 [place] % (Auto) (4.8 - 9.0 %) 8.6 Eos % (Auto) (0.3 - 3.7 %) 7.3 H Baso % (Auto) (0.0 - 2.0 %) 0.6 Neut # (Auto) (2.0 - 7.6 x10 3/uL) 3.84 Lymph # (Auto) (1.0 - 3.8 x10 3/uL) 1.65 [place] # (Auto) (0.1 - 0.8 x10 3/uL) 0.57 Eos # (Auto) (0.0 - 0.2 x10 3/uL) 0.48 H Baso # (Auto) (0.0 - 0.2 x10 3/uL) 0.04 Abs Immat Gran (auto) (0.00 - 0.03 x10 3/uL) 0. 02 Add Manual Diff NO Immature Gran % (0.0 - 2.0 %) 0.3 Nucleated RBC % (0 - 0 %) 0.0 Nucleated RBCs # (Man) (0.0 - 0.1 x10 3/uL) 0.0 0 Results: labs reviewed, vital signs reviewed, [facility] personally rev'd Telemetry Interpretation: sinus rhythm Diagnosis, Assessment Plan Plan discussed with: patient, collaborating MD, consultants (CTS), nurse Free Text DxA P Notes Free Text DxA P Notes: 67-year-old female with medi dylan history of CAD, MA, CABG with ALAA 05/27/22, post -op afib s/p DCC, hypertension, diabetes mellitus, CVA, peripheral neuropathy, Charcot's foot who is sent to the hospital from Dr. Rogel's clinic due to sternal wound dehiscence and drainage. She is s/p wound debridement and Vacuum- assisted wound closure devic e has been applied, and antibiotic has been started. Cardiology is consulted for medical optimization. The patient has pitting edema of bilateral lower extremity. She has no other c omplaint. 1. Sternal wound infection s/p wound debridement on antibiotic Wound VAC in place 2. CAD s/p CABG x 4 (LIN-LAD, SVG-Elisabet, SVG-OM, SVG-PDA) Continue aspirin, beta-xander, statin 3. Volume overload/LE edema IV Lasix 60 mg IV now, then 40 mg IV this aftern oon Start PO lasix 40 mg BID tomorrow Potassium chloride PO mEq PO x1 now and then amish ly patient is advised to follow -up with Dr. Linn next week, she has not seen him since his surgery 4. Hypertension BP stable continue BB 5. Diabetes mellitus Manage per primary team Appreciate the referral. at 1235 Electronically Signed by Julius Washington MD on at 1351 RPT #:[id number] END OF REPORT 2022-07-14 10:06:00-00:00 [facility] ([facility]) Cardiothoracic Surgery Prog REPORT#:[id number] REPORT STATUS: Signed DATE:07/14/22 TIME: 1006 PATIENT: KALA TURPIN UNIT #: [id number] ROOM/BED: 6617-1 : 57 AGE: 67 SEX: F ATTEND: Teresa Cheng MD ADM AUTHOR: Kassie Aden P * ALL edits or amendments must be made on the [employer]/computer document * Subjective Chief complaint: S/p CABG Sternal wound dehiscence Review of Systems Constitutional: Denies: chills, fever, malaise. Allergy/Immun: Denies: allergic reaction. ENT: Denies: sore throat. Respiratory: Denies: hemoptysis, SOB. Cardiovascular: Denies: palpitations. GI: Denies: abdominal pain, nausea, vomiting. Heme: Denies: bleeding. Neuro: Denies: dizziness, headache. Objective General VS/I O Last Documented: Result Date Time Pulse Ox 94 07/15 715 B/P 120/61 07/15 715 B/P Mean 80.6 07/15 715 O2 Delivery Room air 07/15 715 Temp 97.5 07/15 715 Pulse 56 07/15 715 Resp 18 07/15 715 24 hour I O ending at 0700: 07/14 0700 07/13 1900 Intake Total 740.00 Output Total Balance 740.00 Intake, IV 200.00 Intake, Oral 540 Number 0 Bowel Movements Number Voids 4 PATIENT WEIGHT: Weight (lb): Weight (oz): Weight (kg): 98.182 Physical Exam General appearance: alert, oriented, pleasant, m ental status normal, no respiratory distress Wound/incision: Location: Sternum Site condition: wound vac in place Neck: supple/no meningismus Cardiovascular: normal heart sounds, regular rat e rhythm Respiratory: aerating well, symmetric expansion, no distress Abdomen: soft, non-tender, no distention Extremities: edema, moves all 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, oriented X 3, normal speech, n o motor deficits Psychiatry: normal affect, normal mood Current Medications Medications: Active Meds + DC'd Last 24 Hrs Atorvastatin Calcium (LIPITOR) 40 MG 2100 PO Insulin Glargine (Semglee) 20 UNIT BEDTIME SUBQ (DC) Insulin Glargine (Semglee) 30 UNIT BEDTIME SUBQ Melatonin (Melatonin) 6 MG BEDTIME PO Vancomycin HCl (Vancomycin 1,500 mg Inj (B2)) 1, 500 MG Q24H IV Sodium Chloride (SODIUM CHLORIDE 0.9%) 250 ML Insulin Human Lispro (HUMALOG) 10 UNIT AC SUBQ ( DC) Insulin Human Lispro (HUMALOG) 15 UNIT AC SUBQ Amiodarone HCl (CORDARONE) 200 MG BID PO Aspirin (ASPIRIN) 81 MG DAILY PO Cholecalciferol (VITAMIN D) 1,000 INTL.UNITS AMISH LY PO (CKD) Clopidogrel Bisulfate (Plavix) 75 MG DAILY PO (D A) Ferrous Sulfate (FERROUS SULFATE) 325 MG DAILY P O Gabapentin (NEURONTIN) 300 MG TID PO Metoprolol Tartrate (LOPRESSOR) 12.5 MG Q12HR PO Paroxetine HCl (PAXIL) 20 MG DAILY PO Miscellaneous Information (VANCOMYCIN PHARMACY T O DOSE) 1 EACH ASDIR IV (CKD) Piperacillin Sod/Tazobactam Sod (ZOSYN 3.375GM) 3.375 GM Q8H IV Sodium Chloride (SODIUM CHLORIDE 0.9% 100 ML) 1 00 ML Acetaminophen (TYLENOL) 650 MG Q4H PRN PRN PO Docusate Sodium (COLACE) 100 MG BID PRN PRN PO Enoxaparin Sodium (lovENOX) 40 MG Q24H SUBQ (DA) Hydralazine HCl (APRESOLINE) 10 MG Q6H PRN PRN I V Hydrocodone Bitart/Acetaminophen (NORCO 5/325) 1 TAB Q6H PRN PRN PO Lactulose (LACTULOSE) 20 GM Q6H PRN PRN PO Ondansetron HCl (ZOFRAN) 4 MG Q4H PRN PRN IV Potassium Chloride (POTASSIUM CHLORIDE 20MEQ TAB .ER) 40 MEQ DAILY PRN PRN PO Results Findings/Data: Laboratory Tests 07/14 07/13 07/13 07/13 0716 2025 1548 1208 Chemistry POC Glucose (70 - 110 MG/DL) 156 H 166 H 263 H 236 H Laboratory Tests 07/14 0600 Hematology WBC (4.5 - 11.0 x10 3/uL) 6.6 RBC (3.54 - 5.02 x10 6/uL) 3.48 L Hgb (11.0 - 15.0 g/dL) 10.6 L Hct (33.0 - 45.0 %) 33.8 MCV (81.0 - 99.0 fL) 97.1 MCH (27.0 - 33.0 pg) 30.5 MCHC (33.0 - 37.0 g/dL) 31.4 L RDW (11.5 - 14.5 %) 17.3 H Plt Count (150 - 400 x10 3/uL) 190 MPV (7.0 - 9.0 fL) 10.1 H Neut % (Auto) (56.0 - 77.0 %) 58.2 Lymph % (Auto) (14.0 - 32.0 %) 25.0 [place] % (Auto) (4.8 - 9.0 %) 8.6 Eos % (Auto) (0.3 - 3.7 %) 7.3 H Baso % (Auto) (0.0 - 2.0 %) 0.6 Neut # (Auto) (2.0 - 7.6 x10 3/uL) 3.84 Lymph # (Auto) (1.0 - 3.8 x10 3/uL) 1.65 [place] # (Auto) (0.1 - 0.8 x10 3/uL) 0.57 Eos # (Auto) (0.0 - 0.2 x10 3/uL) 0.48 H Baso # (Auto) (0.0 - 0.2 x10 3/uL) 0.04 Abs Immat Gran (auto) (0.00 - 0.03 x10 3/uL) 0. 02 Add Manual Diff NO Immature Gran % (0.0 - 2.0 %) 0.3 Nucleated RBC % (0 - 0 %) 0.0 Nucleated RBCs # (Man) (0.0 - 0.1 x10 3/uL) 0.0 0 Diagnosis, Assessment Plan Hospital course to date: 67 year old female s/p CABG X4 on 06/16/22. She presented to the clinic yesterday (07/13) and was found to have sternal w ound dehiscence and possible infection. She was sent the ED for further evaluation with CT chest, initiation of antibiotics, wound debridement and wound vac placement. Patient denies fever, chest pain or shortness of breath. PLAN CT chest images reviewed with Dr. Danny fam. No subcutaneous fluid collection or abscess Status post wound debridemen t at the bedside by Dr Morrissey (see separate note for details). Patient had oozing from wound that sub sided. Wound vac placed Continue antibiotics, monito cultures Complaining of orthopnea and bilateral lower ext remity edema. Cardiology consulted residential program manager consulted continue wound VAC at [facility] Consultants: cardiology at 1130 at 0933 RPT #:[id number] END OF REPORT 2022-07-14 09:29:00-00:00 [facility] ([facility]) Hospitalist Progress Note REPORT#:[id number] REPORT STATUS: Signed DATE:07/14/22 TIME: 928 PATIENT: KALA TURPIN UNIT #: [id number] ROOM/BED: [place] [id number] : 57 AGE: 67 SEX: F ATTEND: Teresa Cheng MD ADM AUTHOR: Monique Cheng MD * ALL edits or amendments must be made on the [employer]/computer document * Subjective Chief complaint: Chest wall infection s/p CABG HPI: Patient seen this AM, doing well, denies discomfort. no acute events overnight. Review of Systems All systems rev neg: except as noted Objective General VS/I O: Vital Signs: Date Time Temp Pulse Resp B/P B/P Pulse O2 O2 F low FiO2 Mean Ox Delivery Rate 07/14 2052 95 Room air 07/14 203 97.7 59 18 155/75 101.5 95 Room air 07/14 1555 97.7 53 18 142/64 90.1 95 Room air 07/14 1123 58 18 131/72 91.9 95 Room air 07/14 0716 97.5 56 18 120/61 80.6 94 Room air 07/14 0329 97.7 58 16 137/72 93.7 93 Room air 07/13 2356 97.5 49 16 147/67 94.0 94 Room air 24 hour I O ending at 0700: 07/14 0700 07/13 1900 Intake Total 740.00 Output Total Balance 740.00 Intake, IV 200.00 Intake, Oral 540 Number 0 Bowel Movements Number Voids 4 PATIENT WEIGHT: Weight (lb): Weight (oz): Weight (kg): 98.182 Medications: Active Meds + DC'd Last 24 Hrs Amiodarone HCl (CORDARONE) 200 MG DAILY PO Furosemide (LASIX) 40 MG BID 9A 5P PO Potassium Chloride (POTASSIUM CHLORIDE 20MEQ TAB .ER) 40 MEQ DAILY PO Furosemide (LASIX 40 mg/4 mL INJECTION) 40 MG BI D 9A 5P IV (DC) Dextrose/Water (DEXTROSE 10% IN WATER) 125 ML DIR PRN IV (CKD) Dextrose/Water (DEXTROSE 10% IN WATER) 250 ML DIR PRN IV (CKD) Glucagon (GLUCAGON) 1 MG ASDIR PRN IM Furosemide (LASIX 40 mg/4 mL INJECTION) 60 MG ON CE ONE IV (DC) Potassium Chloride (POTASSIUM CHLORIDE 20MEQ TAB .ER) 40 MEQ ONCE ONE PO (DC) Atorvastatin Calcium (LIPITOR) 40 MG 2100 PO Insulin Glargine (Semglee) 30 UNIT BEDTIME SUBQ Melatonin (Melatonin) 6 MG BEDTIME PO Vancomycin HCl (Vancomycin 1,500 mg Inj (B2)) 1, 500 MG Q24H IV Sodium Chloride (SODIUM CHLORIDE 0.9%) 250 ML Insulin Human Lispro (HUMALOG) 15 UNIT AC SUBQ Amiodarone HCl (CORDARONE) 200 MG BID PO (DC) Aspirin (ASPIRIN) 81 MG DAILY PO Cholecalciferol (VITAMIN D) 1,000 INTL.UNITS AMISH LY PO (CKD) Clopidogrel Bisulfate (Plavix) 75 MG DAILY PO (D A) Ferrous Sulfate (FERROUS SULFATE) 325 MG DAILY P O Gabapentin (NEURONTIN) 300 MG TID PO Metoprolol Tartrate (LOPRESSOR) 12.5 MG Q12HR PO Paroxetine HCl (PAXIL) 20 MG DAILY PO Miscellaneous Information (VANCOMYCIN PHARMACY T O DOSE) 1 EACH ASDIR IV (CKD) Piperacillin Sod/Tazobactam Sod (ZOSYN 3.375GM) 3.375 GM Q8H IV Sodium Chloride (SODIUM CHLORIDE 0.9% 100 ML) 1 00 ML Acetaminophen (TYLENOL) 650 MG Q4H PRN PRN PO Docusate Sodium (COLACE) 100 MG BID PRN PRN PO Enoxaparin Sodium (lovENOX) 40 MG Q24H SUBQ (DA) Hydralazine HCl (APRESOLINE) 10 MG Q6H PRN PRN I V Hydrocodone Bitart/Acetaminophen (NORCO 5/325) 1 TAB Q6H PRN PRN PO Lactulose (LACTULOSE) 20 GM Q6H PRN PRN PO Ondansetron HCl (ZOFRAN) 4 MG Q4H PRN PRN IV Potassium Chloride (POTASSIUM CHLORIDE 20MEQ TAB .ER) 40 MEQ DAILY PRN PRN PO Dietitian nutrition assessment The data set between the solid lines has been im ported from the dietitian's assessment. BMI Calculated: 40.9 Nutrition related diagnosis: Nutrition diagnosis details: Nutrition problem: Nutrition etiology: Nutrition signs and symptoms: Nutrition prescription: Dietitian name: Assessment completed: Physical Exam General appearance: alert, awake, oriented Head/Eyes: atraumatic, normocephalic, PERRLA ENT: moist mucosal membranes Neck: full range of motion, non-tender, supple/n o meningismus Cardiovascular: normal heart sounds, regular rat e rhythm Respiratory: aerating well, clear to auscultatio n, no distress Abdomen: non-tender, normal bowel sounds, soft, no distention Extremities: edema, moves all Musculoskeletal: normal inspection 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, oriented X 3, CNII-XII intact Skin: sternal draining wound, surgical excision, some bleeding Psychiatry: normal affect, normal judgment/insig ht, normal mood Results Findings/Data: Laboratory Tests 07/14 07/14 07/14 07/14 2029 1554 1123 0716 Chemistry POC Glucose (70 - 110 MG/DL) 156 H 132 H 156 H 156 H Laboratory Tests 07/14 0600 Hematology WBC (4.5 - 11.0 x10 3/uL) 6.6 RBC (3.54 - 5.02 x10 6/uL) 3.48 L Hgb (11.0 - 15.0 g/dL) 10.6 L Hct (33.0 - 45.0 %) 33.8 MCV (81.0 - 99.0 fL) 97.1 MCH (27.0 - 33.0 pg) 30.5 MCHC (33.0 - 37.0 g/dL) 31.4 L RDW (11.5 - 14.5 %) 17.3 H Plt Count (150 - 400 x10 3/uL) 190 MPV (7.0 - 9.0 fL) 10.1 H Neut % (Auto) (56.0 - 77.0 %) 58.2 Lymph % (Auto) (14.0 - 32.0 %) 25.0 [place] % (Auto) (4.8 - 9.0 %) 8.6 Eos % (Auto) (0.3 - 3.7 %) 7.3 H Baso % (Auto) (0.0 - 2.0 %) 0.6 Neut # (Auto) (2.0 - 7.6 x10 3/uL) 3.84 Lymph # (Auto) (1.0 - 3.8 x10 3/uL) 1.65 [place] # (Auto) (0.1 - 0.8 x10 3/uL) 0.57 Eos # (Auto) (0.0 - 0.2 x10 3/uL) 0.48 H Baso # (Auto) (0.0 - 0.2 x10 3/uL) 0.04 Abs Immat Gran (auto) (0.00 - 0.03 x10 3/uL) 0. 02 Add Manual Diff NO Immature Gran % (0.0 - 2.0 %) 0.3 Nucleated RBC % (0 - 0 %) 0.0 Nucleated RBCs # (Man) (0.0 - 0.1 x10 3/uL) 0.0 0 Laboratory Tests 07/14 1715 Toxicology Vancomycin Trough (10.0 - 20.0 mcg/mL) 10.7 Diagnosis, Assessment Plan Problem List/A P: 1. Post-operative infection 2. Dyspepsia 3. Anemia 4. Afib 5. Coronary artery disease 6. S/P CABG x 4 7. Type 2 diabetes mellitus 8. Hypertension Consultants: cardiology Code status: full code Free Text DxA P Notes Free text DxA P notes: 67-year-old female med histo ry significant for CAD s/p CABG, recently evaluated at CT clinic discovered to h ave wound dehiscence at CABG site admitted for wound debridement, chest imaging, and wound VAC placem ent. * S/p wound debridement at bedside this a.m. * chest imaging revealed negative abscess, or ot her subq fluid collections * hyperglycemia noted, continue home insulin reg imen 30 Units bedtime long acting, and 15 Units AC * BP elevated, will restart hypertensive meds ca utiously given reported h/o hypotension while on meds * Continue IV vanc, wound care consulted * Case management consulted for wound vac * Continue home DAPT therapy, lopressor, and prn hydralazine * Follow repeat am labs 07/13- pending wound vac placement. 07/14- wound vac placed, pain controlled , pending home wound vac, CM following and assisting. Dvt ppx: scds code: full dispo: per cards/cvt surgery at 2216 RPT #:[id number] END OF REPORT 2022-07-13 11:48:00-00:00 [facility] ([facility] DT Operative Note REPORT#:[id number] REPORT STATUS: Signed DATE:07/13/22 TIME: 1148 PATIENT: KALA TURPIN UNIT #: [id number] ROOM/BED: [place] [address] : 57 AGE: 67 SEX: F ATTEND: Teresa Cheng MD ADM AUTHOR: Natasha Morrissey MD * ALL edits or amendments must be made on the el ectronic/computer document * Operative Report Operative Note Note: Bedside procedure note Procedure: wound debridement [employer] [address] Indication: superficial wound infection, lower pole of sternal wound, s/p CABG After informed consent, we prepped and drapped t he lower half of the sternal wound. Using local 1% lidocain anesthesi a, I debrided the infected tissue down to a healthy vascularized be d. We placed a wet to dry dressing pending wound vac placement by our wound care colleagues. I personally performed the entire proced ure. Ange Lane NP assisted in the set up Natasha Morrissey MD Electronically Signed by Natasha Morrissey MD on 06/25 at 1211 RPT #:[id number] END OF REPORT 2022-07-13 11:36:00-00:00 [facility] Cardiothoracic Surgery Consult REPORT#:[id number] REPORT STATUS: Signed DATE:07/13/22 TIME: 1136 PATIENT: KALA TURPIN UNIT #: [id number] ROOM/BED: [place] [address] : 57 AGE: 67 SEX: F ATTEND: Teresa Cheng MD ADM AUTHOR: Kassie Aden * ALL edits or amendments must be made on the [employer]/computer document * History of Present Illness HPI Chief complaint: S/p CABG Sternal wound dehiscence PCP: PCP: Natasha Morrissey MD HPI: 67 year old female s/p CABG X4 on 06/16/22. She presented to the clinic yesterday (07/13) and was found to have sternal w ound dehiscence and possible infection. She was sent the ED for further evaluation with CT chest, initiation of antibiotics, wound debridement and wound vac placement. Patient denies fever, chest pain or shortness of breath. History Past Medical History: Reports: Coronary artery disease, Diabetes melli tus, Hypertension, Ischemic stroke, Prior MA. Denies: Congestive heart failu re, Kidney disease/stones. Additional Medical History: Stroke Hypertension Hyperlipidemia Diabetes Obstructive sleep apnea Coronary artery disease Charcot syndrome Non Hodgkin's lymphoma Past Surgical History: Reports: Hysterectomy, PCI. Additional Surgical History: Exploratory laparotomy for infected mesh Alcohol Use Denies EtOH use Drug Use Denies recreational drugs Smoking status for patients 13 years old or olde r: Never Smoker Medications: Home Medications: Medication Dose/Rte/Freq Days Qty Entered Last Max Daily Dose Reviewed GABAPENTIN (NEURONTIN) 600 MG PO TID 07/12/22 0 07/12/22 Strength: 600 MG TAB 2126 2126 INSULIN GLARGINE 30 UNITS SUBQ 07/12/22 (LANTUS) BEDTIME 2127 Strength: 100 UNIT/ML VIAL INSULIN LISPRO (HumaLOG) 15 UNITS SUBQ AC 07/12 Strength: 100 UNIT/ML 2130 VIAL PARoxetine HCL (PAXIL) 20 MG PO DAILY 06/15/22 07/12/22 Strength: 20 MG TAB 109 2124 Melatonin (MELATONIN) 10 MG SL BEDTIME 06/15/22 07/12/22 Strength: 1 MG TAB 110 2124 CLOPIDOGREL (PLAVIX) 75 MG PO DAILY 06/21/22 Strength: 75 MG TAB 2044 2124 CHOLECALCIFEROL 1,000 UNITS PO DAILY 06/21/22 0 07/12/22 (VITAMIN D3) 2045 2125 (VITAMIN D3) Strength: 25 MCG (1,000 UNIT) CAP FERROUS SULFATE 325 MG PO DAILY 30 06/25/22 (FEOSOL) 1100 2123 Strength: 325 MG (65 MG IRON) TAB AMIODARONE (PACERONE) 200 MG PO BID 60 06/25/22 07/12/22 Strength: 200 MG TAB 1100 2124 ATORVASTATIN (LIPITOR) 40 MG PO 2100 30 3 07/12/22 Strength: 40 MG TAB 1102123 METOPROLOL TARTRATE 12.5 MG PO Q12HR 30 30 05/1807/12/22 (LOPRESSOR) 1100 2123 Strength: 25 MG TAB ASPIRIN 81 MG PO DAILY 30 06/25/22 07/12/22 Strength: 81 MG TAB.CHEW 1101 2123 CYANOCOBALAMIN 500 MCG PO DAILY 30 06/25/22 (VITAMIN B-12) 1104 2125 Strength: 500 MCG TAB Current Hospital Medications: Ahfs Category Unknown Sig/William Start time Last Medication Dose Route Stop Time Status Admin Melatonin 6 MG BEDTIME 07/13 2100 AC (Melatonin) PO 08/12 2058 Anti-Infective Agents Sig/William Start time Last Medication Dose Route Stop Time Status Admin Vancomycin HCl 1,500 MG Q24H 07/13 1800 AC (Vancomycin 1,500 mg IV 07/18 175 Inj (B2)) Sodium Chloride 250 ML (SODIUM CHLORIDE 0.9%) Miscellaneous 1 EACH ASDIR 07/12 2344 CKD Information IV 08/12 2343 (VANCOMYCIN PHARMACY TO DOSE) Vancomycin HCl 1,000 MG ONCE ONE 07/12 2344 DC 07/13 (VANCOMYCIN HCL) IV 07/13 0044 0305 Sodium Chloride 250 ML (SODIUM CHLORIDE 0.9%) Piperacillin Sod/ 3.375 GM Q8H 07/12 2300 AC Tazobactam Sod IV 07/17 2259 0846 (ZOSYN 3.375GM) Sodium Chloride 100 ML (SODIUM CHLORIDE 0.9% 100 ML) Piperacillin Sod/ 3.375 GM X1ED STA 07/12 1703 DC 07/12 Tazobactam Sod IV 07/12 1732 1745 (ZOSYN 3.375GM) Sodium Chloride 100 ML (SODIUM CHLORIDE 0.9% 100 ML) Vancomycin HCl 1,000 MG X1ED STA 07/12 1703 DC 07/12 (VANCOMYCIN HCL) IV 07/12 1802 1825 Sodium Chloride 250 ML (SODIUM CHLORIDE 0.9%) Blood Formation,Coagulation Sig/William Start time Last Medication Dose Route Stop Time Status Admin Clopidogrel Bisulfate 75 MG DAILY 07/13 0900 DA 07/13 (Plavix) PO 08/12 0859 0849 Ferrous Sulfate 325 MG DAILY 07/13 0900 AC 06/25 0 (FERROUS SULFATE) PO 08/12 0859 0849 Enoxaparin Sodium 40 MG Q24H 07/12 2244 DA 06/24 9 (lovENOX) SUBQ 08/11 2244 2325 Cardiovascular Drugs Sig/William Start time Last Medication Dose Route Stop Time Status Admin Atorvastatin Calcium 40 MG 2100 07/13 2100 AC (LIPITOR) PO 08/12 205 Lidocaine HCl 5 ML ONCE ONE 07/13 1100 DC (XYLOCAINE MPF 1% LOCAL 07/13 1101 5ML) Amiodarone HCl 200 MG BID 07/13 0900 AC 07/13 (CORDARONE) PO 08/12 0859 0847 Metoprolol Tartrate 12.5 MG Q12HR 07/13 0900 AC 07/13 (LOPRESSOR) PO 08/12 0859 0848 Hydralazine HCl 10 MG Q6H PRN PRN 07/12 2245 AC (APRESOLINE) IV 08/11 2244 Central Nervous System Agents Sig/William Start time Last Medication Dose Route Stop Time Status Admin Aspirin 81 MG DAILY 07/13 0900 AC 07/13 (ASPIRIN) PO 08/12 0859 0849 Gabapentin 300 MG TID 07/13 0900 AC 07/13 (NEURONTIN) PO 08/12 0859 0848 Paroxetine HCl 20 MG DAILY 07/13 0900 AC 07/13 (PAXIL) PO 08/12 0859 0847 Acetaminophen 650 MG Q4H PRN PRN 07/12 2245 AC (TYLENOL) PO 08/11 2244 Hydrocodone Bitart/ 1 TAB Q6H PRN PRN 07/12 224 5 AC 07/12 Acetaminophen PO 07/17 2244 2325 (NORCO 5/325) Diagnostic Agents Sig/William Start time Last Medication Dose Route Stop Time Status Admin Iopamidol 100 ML .STK-MED ONE 07/12 1924 DC (ISOVUE-300 100ML) IV 07/12 1925 192 Electrolytic, Caloric, And Faiza Sig/William Start time Last Medication Dose Route Stop Time Status Admin Lactulose 20 GM Q6H PRN PRN 07/12 2245 AC (LACTULOSE) PO 08/12 2243 Potassium Chloride 40 MEQ DAILY PRN PRN 07/12 2 245 AC (POTASSIUM CHLORIDE PO 08/12 2243 20MEQ TAB.ER) Sodium Chloride 1,000 ML .Q20H 07/125 DC 0 07/12 (SODIUM CHLORIDE IV 08/11 224 2327 0.9%) Sodium Chloride 1,000 ML X1ED STA 07/12 1702 DC 07/12 (SODIUM CHLORIDE IV 07/12 1801 1745 0.9%) Gastrointestinal Drugs Sig/William Start time Last Medication Dose Route Stop Time Status Admin Docusate Sodium 100 MG BID PRN PRN 07/12 224 AC (COLACE) PO 08/12 2243 Ondansetron HCl 4 MG Q4H PRN PRN 07/125 AC (ZOFRAN) IV 08/11 224 Hormones And Synthetic Substit Sig/William Start time Last Medication Dose Route Stop Time Status Admin Insulin Glargine 20 UNIT BEDTIME 07/13 2100 AC (Semglee) SUBQ 08/12 2059 Insulin Human Lispro 10 UNIT AC 07/13 1630 AC (HUMALOG) SUBQ 08/12 1629 Vitamins Sig/William Start time Last Medication Dose Route Stop Time Status Admin Cholecalciferol 1,000 INTL.UNITS DAILY 07/13 09 00 CKD 07/13 (VITAMIN D) PO 08/12 0859 0847 Allergies: Coded Allergies: adhesive tape (RASH 06/15/22) niacin (Mild, ANXIETY 06/15/22) zolpidem (From AMBIEN) (CONFUSION 06/15/22) 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 Free 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 ROS Notes Free Text ROS Notes: Constitutional: Negative for fever, chills, weig ht loss Skin: Negative for rash, negative for swelling n egative for any laceration HEENT: Denies hearing loss denies, any ear ringi ng denies any earache, throat pain Respiratory: Reports orthopnea Cardiac: Denies chest pain, denies palpitations denies orthopnea Lower part of sternal incision with dehiscence GI: Denies constipation denies diarrhea : Denies hematuria denies dysuria denies flank pain Musculoskeletal: Denies any joint pain denies an y joint swelling denies any myalgia Hematologic: Denies any easy bruising, denies an y bleeding Endocrine: denies any night sweats, denies polyu jany polydipsia Neurologic: Denies any lightheaded denies any he adache denies any confusion denies any dizziness Objective Physical Exam VS/I O: Last Documented: Result Date Time Pulse Ox 95 07/13 1209 B/P 159/72 07/13 1209 B/P Mean 101.3 07/13 1209 Temp 98.4 07/13 1209 Pulse 55 07/13 1209 Resp 17 07/13 1209 O2 Delivery Room air 07/13 0352 24 hour I O ending at 0700: 07/13 0700 07/12 1900 Intake Total Output Total Balance Number 0 Bowel Movements Number Voids 2 Patient 216 lb Weight Weight Stated/Reported Measurement Method PATIENT WEIGHT: Weight (lb): Weight (oz): Weight (kg): 98.182 Free Text Obj Notes Free Text Obj Notes: General: Alert and oriented, obese, pale HEENT: conjunctiva clear, ex traocular movement intact, PERRLA, sclera anicteric. normal dentition, gums, normal, oral mucosa with out pallor or cyanosis. Neck: no, JVD, trachea midline, no, lymphadenopa thy, neck supple, normal ROM. Respiratory: Decreased breath sounds, no distres s Cardiovascular: regular rate and rhythm, S1, S2, normal, without murmurs, rubs or gallops, pulses, palpable, symetric. Lower part of sternal incision with dehiscence, infection Abdomen: Soft, non tender. No rebound. No guardi ng Extremities: dry, moves all. Musculoskeletal: Full range of motion, no CVA te nderness, no muscle spasm Skin: warm, dry, no, lesions, rash. Neurologic: Alert and oriented x3. Psychiatric: affect and demeanor normal, normal speech, appropriate mood and affect. Diagnosis, Assessment Plan Free Text A P: 67 year old female s/p CABG X4 on 06/16/22. She presented to the clinic yesterday (07/13) and was found to have sternal w ound dehiscence and possible infection. She was sent the ED for further evaluation with CT chest, initiation of antibiotics, wound debridement and wound vac placement. Patient denies fever, chest pain or shortness of breath. PLAN CT chest images reviewed with Dr. Danny fam. No subcutaneous fluid collection or abscess Status post wound debridemen t at the bedside by Dr Morrissey (see separate note for details). Patient had oozing from wound. Hold Lo venox and Plavix Plan for wound VAC placement Continue antibiotics residential program manager consulted continue wound VAC at [facility] Patient seen and plan reviewed with Dr Juan F Morrissey at 1503 at 1548 RPT #:[id number] END OF REPORT 2022-07-13 09:17:00-00:00 [facility] Hospitalist Progress Note REPORT#:[id number] REPORT STATUS: Signed DATE:07/13/22 TIME: 916 PATIENT: KALA TURPIN UNIT #: [id number] ROOM[address]BED: [address] : [birth year] AGE: 67 SEX: F ATTEND: Teresa Cheng MD ADM AUTHOR: Monique Cheng MD * ALL edits or amendments must be made on the [employer]/computer document * Subjective Chief complaint: Chest wall infection s/p CABG HPI: Patient seen this AM, bedsid e debridement performed, she tolerated well. Reports b/l legs are swollen, which is worse than baseli ne. She has not been taking diuretic while admitted. Review of Systems All systems rev neg: except as noted Objective General VS/I O: Vital Signs: Date Time Temp Pulse Resp B/P B/P Pulse O2 O2 F low FiO2 Mean Ox Delivery Rate 07/13 1209 98.4 55 17 159/72 101.3 95 07/13 0718 97.5 56 17 143/62 89.2 94 07/13 0352 97.7 54 16 133/73 93.0 94 Room air 07/12 2359 97.5 52 16 168/69 102.0 96 Room air 07/12 2120 97.7 59 18 188/76 113.3 96 Room air 07/12 1725 98.0 56 16 155/80 105 95 24 hour I O ending at 0700: 07/13 0700 07/12 1900 Intake Total Output Total Balance Number 0 Bowel Movements Number Voids 2 Patient 98.182 kg Weight Weight Stated/Reported Measurement Method PATIENT WEIGHT: Weight (lb): Weight (oz): Weight (kg): 98.182 Medications: Active Meds + DC'd Last 24 Hrs Atorvastatin Calcium (LIPITOR) 40 MG 2100 PO Insulin Glargine (Semglee) 20 UNIT BEDTIME SUBQ Melatonin (Melatonin) 6 MG BEDTIME PO Vancomycin HCl (Vancomycin 1,500 mg Inj (B2)) 1, 500 MG Q24H IV Sodium Chloride (SODIUM CHLORIDE 0.9%) 250 ML Insulin Human Lispro (HUMALOG) 10 UNIT AC SUBQ Lidocaine HCl (XYLOCAINE MPF 1% 5ML) 5 ML ONCE O NE LOCAL (DC) Amiodarone HCl (CORDARONE) 200 MG BID PO Aspirin (ASPIRIN) 81 MG DAILY PO Cholecalciferol (VITAMIN D) 1,000 INTL.UNITS AMISH LY PO (CKD) Clopidogrel Bisulfate (Plavix) 75 MG DAILY PO (D A) Ferrous Sulfate (FERROUS SULFATE) 325 MG DAILY P O Gabapentin (NEURONTIN) 300 MG TID PO Metoprolol Tartrate (LOPRESSOR) 12.5 MG Q12HR PO Paroxetine HCl (PAXIL) 20 MG DAILY PO Miscellaneous Information (VANCOMYCIN PHARMACY T O DOSE) 1 EACH ASDIR IV (CKD) Vancomycin HCl (VANCOMYCIN HCL) 1,000 MG ONCE ON E IV (DC) Sodium Chloride (SODIUM CHLORIDE 0.9%) 250 ML Piperacillin Sod/Tazobactam Sod (ZOSYN 3.375GM) 3.375 GM Q8H IV Sodium Chloride (SODIUM CHLORIDE 0.9% 100 ML) 1 00 ML Acetaminophen (TYLENOL) 650 MG Q4H PRN PRN PO Docusate Sodium (COLACE) 100 MG BID PRN PRN PO Enoxaparin Sodium (lovENOX) 40 MG Q24H SUBQ (DA) Hydralazine HCl (APRESOLINE) 10 MG Q6H PRN PRN I V Hydrocodone Bitart/Acetaminophen (NORCO 5/325) 1 TAB Q6H PRN PRN PO Lactulose (LACTULOSE) 20 GM Q6H PRN PRN PO Ondansetron HCl (ZOFRAN) 4 MG Q4H PRN PRN IV Potassium Chloride (POTASSIUM CHLORIDE 20MEQ TAB .ER) 40 MEQ DAILY PRN PRN PO Sodium Chloride (SODIUM CHLORIDE 0.9%) 1,000 ML .Q20H IV (DC) Iopamidol (ISOVUE-300 100ML) 100 ML .STK-MED ONE IV (DC) Piperacillin Sod/Tazobactam Sod (ZOSYN 3.375GM) 3.375 GM X1ED STA IV (DC ) Sodium Chloride (SODIUM CHLORIDE 0.9% 100 ML) 1 00 ML Vancomycin HCl (VANCOMYCIN HCL) 1,[address] A IV (DC) Sodium Chloride (SODIUM CHLORIDE 0.9%) 250 ML Sodium Chloride (SODIUM CHLORIDE 0.9%) 1,000 ML X1ED STA IV (DC) Dietitian nutrition assessment The data set between the solid lines has been im ported from the dietitian's assessment. BMI Calculated: 40.9 Nutrition related diagnosis: Nutrition diagnosis details: Nutrition problem: Nutrition etiology: Nutrition signs and symptoms: Nutrition prescription: Dietitian name: Assessment completed: Physical Exam General appearance: alert, awake, oriented Head/Eyes: atraumatic, normocephalic, PERRLA ENT: moist mucosal membranes Neck: full range of motion, non-tender, supple/n o meningismus Cardiovascular: normal heart sounds, regular rat e rhythm Respiratory: aerating well, clear to auscultatio n, no distress Abdomen: non-tender, normal bowel sounds, soft, no distention Extremities: edema, moves all Musculoskeletal: normal inspection 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, oriented X 3, CNII-XII intact Skin: sternal draining wound, surgical excision, some bleeding Psychiatry: normal affect, normal judgment/insig ht, normal mood Results Findings/Data: Laboratory Tests 07/13 07/13 07/13 07/13 07/12 1208 0718 0444 0443 2118 Chemistry Sodium (134 - 147 mEq/L) 143 Potassium (3.4 - 5.0 mEq/L) 4.3 Chloride (100 - 108 mEq/L) 108 Carbon Dioxide (21 - 33 mEq/l) 30 Anion Gap (0 - 20) 10 BUN (7 - 18 mg/dL) 18 Creatinine (0.6 - 1.3 mg/dL) 1.1 Glomerular Filtr Rate (80 - 90) 55.8 L Glucose (70 - 110 mg/dL) 185 H POC Glucose (70 - 110 MG/DL) 236 H 180 H 247 H Lactic Acid (0.4 - 1.9 mmol/l) 1.1 Calcium (8.0 - 10.5 mg/dL) 8.6 Phosphorus (2.5 - 4.9 MG/DL) 4.2 Magnesium (1.80 - 2.40 mg/dL) 1.63 L Total Bilirubin (0.0 - 1.0 mg/dL) 0.90 AST (15 - 37 IUnit/L) 20 ALT (30 - 65 IUnit/L) 23 L Total Alk Phosphatase (20 - 125 139 H IUnit/L) Total Protein (6.4 - 8.2 g/dL) 5.9 L Albumin (3.4 - 5.0 g/dL) 3.10 L Triglycerides (40 - 150 mg/dL) 114 Cholesterol (<200 mg/dL) 74 LDL Cholesterol Measurd (0 - 100 33.0 mg/dL) HDL Cholesterol (39 - 96 mg/dL) 24.3 L Cholesterol/HDL Ratio (3.27 - 4.44 3.05 L RATIO) 07/12 07/12 1704 1704 Chemistry Sodium (134 - 147 mEq/L) 142 Potassium (3.4 - 5.0 mEq/L) 4.1 Chloride (100 - 108 mEq/L) 107 Carbon Dioxide (21 - 33 mEq/l) 29 Anion Gap (0 - 20) 10 BUN (7 - 18 mg/dL) 19 H Creatinine (0.6 - 1.3 mg/dL) 1.1 Glomerular Filtr Rate (80 - 90) 55.8 L Glucose (70 - 110 mg/dL) 246 H Lactic Acid (0.4 - 1.9 mmol/L) 2.4 H Calcium (8.0 - 10.5 mg/dL) 9.2 Total Bilirubin (0.0 - 1.0 mg/dL) 1.10 H Direct Bilirubin (0.0 - 0.30 MG/DL) 0.50 H Indirect Bilirubin (MG/DL) 0.60 AST (15 - 37 IUnit/L) 19 ALT (30 - 65 IUnit/L) 21 L Total Alk Phosphatase (20 - 125 IUnit/L) 146 H Troponin I High Sens (0 - 34 ng/L) 19 Total Protein (6.4 - 8.2 g/dL) 6.4 Albumin (3.4 - 5.0 g/dL) 3.40 Laboratory Tests 07/13 07/12 0444 1704 Hematology WBC (4.5 - 11.0 x10 3/uL) 6.7 7.5 RBC (3.54 - 5.02 x10 6/uL) 3.22 L 3.50 L Hgb (11.0 - 15.0 g/dL) 9.9 L 11.1 Hct (33.0 - 45.0 %) 32.0 L 34.4 MCV (81.0 - 99.0 fL) 99.4 H 98.3 MCH (27.0 - 33.0 pg) 30.7 31.7 MCHC (33.0 - 37.0 g/dL) 30.9 L 32.3 L RDW (11.5 - 14.5 %) 17.5 H 17.8 H Plt Count (150 - 400 x10 3/uL) 184 219 MPV (7.0 - 9.0 fL) 10.3 H 9.6 H Neut % (Auto) (56.0 - 77.0 %) 50.1 L 55.7 L Lymph % (Auto) (14.0 - 32.0 %) 35.8 H 31.7 [place] % (Auto) (4.8 - 9.0 %) 8.2 6.6 Eos % (Auto) (0.3 - 3.7 %) 5.4 H 5.2 H Baso % (Auto) (0.0 - 2.0 %) 0.4 0.5 Neut # (Auto) (2.0 - 7.6 x10 3/uL) 3.36 4.15 Lymph # (Auto) (1.0 - 3.8 x10 3/uL) 2.40 2.36 [place] # (Auto) (0.1 - 0.8 x10 3/uL) 0.55 0.49 Eos # (Auto) (0.0 - 0.2 x10 3/uL) 0.36 H 0.39 H Baso # (Auto) (0.0 - 0.2 x10 3/uL) 0.03 0.04 Abs Immat Gran (auto) (0.00 - 0.03 x10 3/uL) 0. 01 0.02 Add Manual Diff NO NO Immature Gran % (0.0 - 2.0 %) 0.1 0.3 Nucleated RBC % (0 - 0 %) 0.0 0.0 Nucleated RBCs # (Man) (0.0 - 0.1 x10 3/uL) 0.0 0 0.00 Laboratory Tests 07/12 1704 Urines Urine Color (YEL/STRAW) DARK YELLOW Urine Appearance (CLEAR) HAZY H Urine pH (5.0 - 7.0) 6.0 Ur Specific [place] (1.005 - 1.030) 1.025 Urine Protein (NEGATIVE) 1+ H Urine Glucose (UA) (NEGATIVE) NEGATIVE Urine Ketones (NEGATIVE) NEGATIVE Urine Blood (NEGATIVE) NEGATIVE Urine Nitrite (NEGATIVE) NEGATIVE Urine Bilirubin (NEGATIVE) NEGATIVE Urine Urobilinogen (0.2 - 1.0 mg/dL) 4.0 H Ur Leukocyte Esterase (NEGATIVE) 1+ H Urine RBC (0 - 3 RBC/HPF) 0-3 Urine WBC (0 - 3 WBC/HPF) 21-50 H Ur Squamous Epith Cells (NONE SEEN /HPF) 6-10 H Calcium Oxalate Crystal (NONE SEEN /HPF) 3+ H Urine Bacteria (NONE SEEN /HPF) NONE SEEN Radiology data: Recent Impressions: RADIOLOGY - XR CHEST 1 V 07/12 1700 Report Impression - Status: SIGNED Entered: 07/12/20221751 IMPRESSION: Opacity at the left lung base with a small left pleural effusion. Impression By: Yanet Templteon CAT SCAN - CT CHEST W/CONTRAST 07/12 1847 Report Impression - Status: SIGNED Entered: 07/12/20222008 IMPRESSION: 1. Open midline sternotomy wound at the skin terri face. There is no organized subcutaneous fluid collection/abscess given history. 2. Minimal substernal fluid is unorganized and l ikely postoperative. 3. Small left pleural effusion with left lung ba se atelectasis. Impression By: Yanet Toro Diagnosis, Assessment Plan Problem List/A P: 1. Post-operative infection 2. Dyspepsia 3. Anemia 4. Afib 5. Coronary artery disease 6. S/P CABG x 4 7. Type 2 diabetes mellitus 8. Hypertension Orders: Procedure Date/time Status Change Admit/Attend Doctor 07/13 54 Active Consultants: cardiology Code status: full code Free Text DxA P Notes Free text DxA P notes: 67-year-old female med histo ry significant for CAD s/p CABG, recently evaluated at [facility] clinic discovered to h ave wound dehiscence at CABG site admitted for wound debridement, chest imaging, and wound VAC placem ent. * S/p wound debridement at bedside this a.m. * chest imaging revealed negative abscess, or ot her subq fluid collections * hyperglycemia noted, continue home insulin reg imen 30 Units bedtime long acting, and 15 Units AC * BP elevated, will restart hypertensive meds ca utiously given reported h/o hypotension while on meds * Continue IV vanc, wound care consulted * Case management consulted for wound vac * Continue home DAPT therapy, lopressor, and prn hydralazine * Follow repeat am labs Dvt ppx: scds code: full dispo: per cards/cvt surgery at 1605 RPT #:[id number] END OF REPORT 2022-07-13 05:39:00-00:00 [facility] ([facility]) Pharmacy Prog.Note-Vancomycin REPORT#:[id number] REPORT STATUS: Signed DATE:07/13/22 TIME: 05 PATIENT: KALA TURPIN UNIT #: [id number] ROOM/BED: [place] [id number] : 57 AGE: 67 SEX: F ATTEND: Robert Ochoa MD ADM AUTHOR: Hermes [facility] * ALL edits or amendments must be made on the [employer]/computer document * Vancomycin Vancomycin Medication Therapy Goal: trough 10-15 mcg/mL Indication for treatment: SSTI Current therapy: Zosyn 3.375 GM Q8H Day of therapy: 1 Weight: Actual weight (kg): 98 VS and I/O: Vital Signs Date Temp Pulse Resp B/P B/P Mean Pulse Ox FiO2 07/12-07/13 36.4-36.7 52-59 16-18 133-188/69-80 93.0-113.3 94-96 72 hours ending at 0700 07/13 0700 07/12 1900 07/12 0700 07/11 1900 07/10 0700 1900 Intake Total Output Total Balance Number 0 Bowel Movements Number 2 Voids Patient 98.182 kg Weight Weight Stated/Rep orted Measuremen t Method 72 Hour I O Total 07/13 0700 07/12 0700 07/11 0700 Intake Total Output Total Balance Labs: Laboratory Test : 07/13 1703 Chemistry BUN (7 - 18 mg/dL) 19 H Creatinine (0.6 - 1.3 mg/dL) 1.1 Hematology WBC (4.5 - 11.0 x10 3/uL) 7.5 Microbiology: 07/13 0300 CHEST: Wound Culture - RECD 07/13 1703 URINE: Urine Culture - RECD 07/13 1703 BLOOD: Blood Culture - RECD 07/13 1703 BLOOD: Blood Culture - RECD Drug admin history: Lab Lab Level SCr Info Rent Collector Med Dose Inter action/Dialysis Date/Time Date/Time Notes: Treatment plan: consult, initiation of therapy Regimen: Vancomycin 2000mg LD Vanco 1500mg Q24H Initiate Regimen: Yes Rationale: Free Text HPI Notes Free Text HPI Notes 67-year-old female who is status post open bypas s on June [address] Rogel's office for concern of of midsternal wo und infection. Patient states that she had been scratching the area through her shirt had rubbed off the scabs to her chest and then noticed it began t o drain this prompting her to reported to , PT received empiric antibiot ic in ER, Pharmacy was consulted to dose Vancomycin for SSTI. Prescriber: Mayito High MD Goal Trough: 10-15mcg/ml A/P:07/13 * Tmax 36.7, WBC 7.5, BUN/Scr 19/1.1, est CRCL 5 5ml/min (Ajbw), UOP: 2 voids/ 24Hr documented. * Microbiology: Blood cx, Urine and wound cultur es all pending. No pertinent image. * Plan: Vancomycin 1000mg x 1 ER given, addition vanco 1000mg added for 2GM LD. Continue Vancomycin 1500mg Q24H. No trough order ed for therapy no more than 5 days. * Pharmacy will continue to follow-up. at 0547 RPT #:[id number] END OF REPORT 2022-07-12 22:50:00-00:00 [facility] ([facility]) Hospitalist History Physical REPORT#:[id number] REPORT STATUS: Signed DATE:07/12/22 TIME: 2249 PATIENT: KALA TURPIN UNIT #: [id number] ROOM/BED: 6617-1 : 57 AGE: 67 SEX: F ATTEND: Teresa Cheng MD ADM AUTHOR: Mayito High MD * ALL edits or amendments must be made on the el [employer]/computer document * History of Present Illness HPI Chief complaint: chest wall infection HPI: Ms. Turpin is a 67 y/o f was transferred for ches t wall infection after CABG. Patient seen this AM, bedsid e debridement performed, she tolerated well. Reports b/l legs are swollen, which is worse than baselyannick ne. She has not been taking diuretic while admitted. History Medication/Allergy-Vaccine Hx Allergies: Coded Allergies: adhesive tape (RASH 06/15/22) niacin (Mild, ANXIETY 06/15/22) zolpidem (From AMBIEN) (CONFUSION 06/15/22) Review of Systems Free Text ROS Notes Free Text ROS Notes: 12 point ROS negative unless stated in HPI. OBJECTIVE VS/I O: Last Documented: Result Date Time Pulse Ox 96 07/17 170 B/P 111/64 07/17 1702 B/P Mean 79.9 07/17 170 Temp 98.1 07/17 1702 Pulse 62 07/17 1702 Resp 17 07/17 170 O2 Delivery Room air 07/17 2323 Patient Weight and BMI Weight (kg): 98.182 BMI: 40.9 Neck: full range of motion, no JVD Cardiovascular: normal heart sounds, regular rat e rhythm Respiratory: aerating well, clear to auscultatio n Extremities: moves all, no edema 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, oriented X 3 Skin: dry, no rash Diagnosis, Assessment Plan Free Text A P: 67-year-old female med histo ry significant for CAD s/p CABG, recently evaluated at CT clinic discovered to h ave wound dehiscence at CABG site admitted for wound debridement, chest imaging, and wound VAC placem ent. * S/p wound debridement at bedside this a.m. * chest imaging revealed negative abscess, or ot her subq fluid collections * hyperglycemia noted, continue home insulin reg imen 30 Units bedtime long acting, and 15 Units AC * BP elevated, will restart hypertensive meds ca utiously given reported h/o hypotension while on meds * Continue IV vanc, wound care consulted * Case management consulted for wound vac * Continue home DAPT therapy, lopressor, and prn hydralazine * Follow repeat am labs Electronically Signed by Mayito High MD on at 2240 RPT #:[id number] END OF REPORT 2022-07-12 16:59:00-00:00 [facility] ([facility]) EMERGENCY PROVIDER REPORT REPORT#:[id number] REPORT STATUS: Signed DATE:07/12/22 TIME: 1658 PATIENT: KALA TURPIN UNIT #: [id number] ROOM/BED: [place] [address] AGE: 67 SEX: F PCP PHYS: Natasha Morrissey MD SERVICE AUTHOR: Holden Montoya * ALL edits or amendments must be made on the [employer]/computer document * Holden Montoya 07/12/22 1659: HPI-Rash/Abscess/Cellulitis Free Text HPI Notes Free Text HPI Notes 67-year-old female who is status post open bypas s on June [address] Rogel's office for concern of of midst ernal wound infection. Patient states that she had been scratching the area through her shirt had rubbed off the scabs to her chest and then noticed it began t o drain this prompting her to reported to General Initial Greet Date/Time 07/12/22 9098 Provider in Triage Greet Note I have greeted and performed a focused rapid initial assessment of this patient. A comprehensive ED assessment and evaluation of the patient, analysis of all test results, and completion of the medical deci yue-making process will be conducted by additional ED providers. MSE Not Complete The medical screening exam i s not complete. Further evaluation and/or treatment is required. The patient will be re-directed to the emergency department. Past Medical History - Adult Stated Complaint WOUND INFECTED FROM POST SURGER Y Allergies Coded Allergies: adhesive tape (RASH 06/15/22) niacin (Mild, ANXIETY 06/15/22) zolpidem (From AMBIEN) (CONFUSION 06/15/22) Past Medical History: Reports: Coronary artery disease, Diabetes melli tus, Hypertension, Ischemic stroke, Prior MA. Denies: Congestive heart failu re, Kidney disease/stones. Additional Medical History Stroke Hypertension Hyperlipidemia Diabetes Obstructive sleep apnea Coronary artery disease Charcot syndrome Non Hodgkin's lymphoma Past Surgical History: Reports: Hysterectomy, PCI. 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 Physical Exam Vital Signs Vital Signs First Documented: Result Date Time Pulse Ox 95 07/12 1725 B/P 155/80 07/12 1725 B/P Mean 105 07/12 1724 Temp 36.7 07/12 172 Pulse 56 07/12 1725 Resp 16 07/12 1724 Last Documented: Result Date Time Pulse Ox 95 07/12 1724 B/P 155/80 07/12 1724 B/P Mean 105 07/12 1724 Temp 36.7 07/12 172 Pulse 56 07/12 1725 Resp 16 07/12 172 Free Text PE Notes Free Text PE Notes GEN/CONST: awake, alert MS HEAD: normocephalic EYES: EOMI, no scleral icterus EARS/NOSE/THROAT: airway patent, mucous membrane s moist MS NECK: supple, FROM RESPIRATORY/CHEST: Lower sternum wound dehiscenc e CARDIOVASCULAR: Normal color ABDOMEN/GI: no distension MS BACK: painless ROM, non-tender MS UPPER EXT: inspection nml, no deformity MS LOWER EXT: inspection nml, no deformity SKIN: warm, dry, intact NEURO: nml speech, no motor deficits Interpretation Diagnostics Lab Results Interpretation Results Laboratory Tests 07/12/22 1704: [Embedded Image Not Available] Laboratory Tests: 07/12 1704 Chemistry Sodium (134 - 147 mEq/L) 142 Potassium (3.4 - 5.0 mEq/L) 4.1 Chloride (100 - 108 mEq/L) 107 Carbon Dioxide (21 - 33 mEq/l) 29 Anion Gap (0 - 20) 10 BUN (7 - 18 mg/dL) 19 H Creatinine (0.6 - 1.3 mg/dL) 1.1 Glomerular Filtr Rate (80 - 90) 55.8 L Glucose (70 - 110 mg/dL) 246 H Lactic Acid (0.4 - 1.9 mmol/L) 2.4 H Calcium (8.0 - 10.5 mg/dL) 9.2 Total Bilirubin (0.0 - 1.0 mg/dL) 1.10 H Direct Bilirubin (0.0 - 0.30 MG/DL) 0.50 H Indirect Bilirubin (MG/DL) 0.60 AST (15 - 37 IUnit/L) 19 ALT (30 - 65 IUnit/L) 21 L Total Alk Phosphatase (20 - 125 IUnit/L) 146 H Troponin I High Sens (0 - 34 ng/L) 19 Total Protein (6.4 - 8.2 g/dL) 6.4 Albumin (3.4 - 5.0 g/dL) 3.40 Hematology WBC (4.5 - 11.0 x10 3/uL) 7.5 RBC (3.54 - 5.02 x10 6/uL) 3.50 L Hgb (11.0 - 15.0 g/dL) 11.1 Hct (33.0 - 45.0 %) 34.4 MCV (81.0 - 99.0 fL) 98.3 MCH (27.0 - 33.0 pg) 31.7 MCHC (33.0 - 37.0 g/dL) 32.3 L RDW (11.5 - 14.5 %) 17.8 H Plt Count (150 - 400 x10 3/uL) 219 MPV (7.0 - 9.0 fL) 9.6 H Neut % (Auto) (56.0 - 77.0 %) 55.7 L Lymph % (Auto) (14.0 - 32.0 %) 31.7 [place] % (Auto) (4.8 - 9.0 %) 6.6 Eos % (Auto) (0.3 - 3.7 %) 5.2 H Baso % (Auto) (0.0 - 2.0 %) 0.5 Neut # (Auto) (2.0 - 7.6 x10 3/uL) 4.15 Lymph # (Auto) (1.0 - 3.8 x10 3/uL) 2.36 [place] # (Auto) (0.1 - 0.8 x10 3/uL) 0.49 Eos # (Auto) (0.0 - 0.2 x10 3/uL) 0.39 H Baso # (Auto) (0.0 - 0.2 x10 3/uL) 0.04 Abs Immat Gran (auto) (0.00 - 0.03 x10 3/uL) 0. 02 Add Manual Diff NO Immature Gran % (0.0 - 2.0 %) 0.3 Nucleated RBC % (0 - 0 %) 0.0 Nucleated RBCs # (Man) (0.0 - 0.1 x10 3/uL) 0.0 0 Urines Urine Color (YEL/STRAW) DARK YELLOW Urine Appearance (CLEAR) HAZY H Urine pH (5.0 - 7.0) 6.0 Ur Specific [place] (1.005 - 1.030) 1.025 Urine Protein (NEGATIVE) 1+ H Urine Glucose (UA) (NEGATIVE) NEGATIVE Urine Ketones (NEGATIVE) NEGATIVE Urine Blood (NEGATIVE) NEGATIVE Urine Nitrite (NEGATIVE) NEGATIVE Urine Bilirubin (NEGATIVE) NEGATIVE Urine Urobilinogen (0.2 - 1.0 mg/dL) 4.0 H Ur Leukocyte Esterase (NEGATIVE) 1+ H Urine RBC (0 - 3 RBC/HPF) 0-3 Urine WBC (0 - 3 WBC/HPF) 21-50 H Ur Squamous Epith Cells (NONE SEEN /HPF) 6-10 H Calcium Oxalate Crystal (NONE SEEN /HPF) 3+ H Urine Bacteria (NONE SEEN /HPF) NONE SEEN Microbiology: Date/Time Procedure - Status Source Growth 07/13 1703 Urine Culture - COMP URINE 07/13 1703 Blood Culture - COMP BLOOD 07/13 1703 Blood Culture - COMP BLOOD Recent Impressions: RADIOLOGY - XR CHEST 1 V 07/12 1699 Report Impression - Status: SIGNED Entered: 07/12/20221751 IMPRESSION: Opacity at the left lung base with a small left pleural effusion. Impression By: Yanet Templeton CAT SCAN - CT CHEST W/CONTRAST 07/12 1846 Report Impression - Status: SIGNED Entered: 07/12/20222008 IMPRESSION: 1. Open midline sternotomy wound at the skin terri face. There is no organized subcutaneous fluid collection/abscess given history. 2. Minimal substernal fluid is unorganized and l ikely postoperative. 3. Small left pleural effusion with left lung ba se atelectasis. Impression By: Yanet Toro Patient Discharge Departure Vital Signs/Condition Vital Signs First Documented: Result Date Time Pulse Ox 95 07/12 1725 B/P 155/80 07/12 1725 B/P Mean 105 07/12 1725 Temp 36.7 07/12 1725 Pulse 56 07/12 1725 Resp 16 07/12 172 Last Documented: Result Date Time Pulse Ox 95 07/12 1725 B/P 155/80 07/12 1725 B/P Mean 105 07/12 1725 Temp 36.7 07/12 1725 Pulse 56 07/12 1725 Resp 16 07/12 1725 All vital signs available at the time of this en try have been reviewed. Terrie Luke 07/12/221925: HPI-Rash/Abscess/Cellulitis Free Text HPI Notes Free Text HPI Notes My evaluation of this patient 67-year-old female previous medical history hypertension, diabetes, recently status post cor onary artery bypass graft presenting to this facility with complaints of d rainage, pain, redness at the incision site of her bypass. She denies fever or chills but noticed the other day thick yellow drainage. Presentation Chief Complaint Tender/swollen area Review of Systems Free Text ROS Notes Free Text ROS Notes - CONSTITUTIONAL: Denies fever and chills. HEENT: Denies vision changes or eye HEENT pain. RESPIRATORY: Denies SOB or cough. CV: Denies CP GI: Denies abdominal pain, nausea, vomiting or d iarrhea. : Denies dysuria or changes in frequency MSK: Denies joint pain or injury SKIN: See HPI NEUROLOGICAL: Denies syncope. PSYCHIATRIC: Denies SI, HI Past Medical History - Adult Home Medications Active Scripts FERROUS SULFATE (FEOSOL) 325 MG PO DAILY FERROUS SULFATE (FEOSOL) 325 MG PO DAILY #30 TA B Ref 1 Prov: 06/25/22 ATORVASTATIN (LIPITOR) 40 MG PO 2100 ATORVASTATIN (LIPITOR) 40 MG PO 2100 #30 TAB Re f 2 Prov: 06/25/22 METOPROLOL TARTRATE (LOPRESSOR) 12.5 MG PO Q12HR 30 Days #30 TAB Ref 2 Prov: 06/25/22 ASPIRIN 81 MG PO DAILY ASPIRIN 81 MG PO DAILY #30 TAB Ref 2 Prov: 06/25/22 CYANOCOBALAMIN (VITAMIN B-12) 500 MCG PO DAILY CYANOCOBALAMIN (VITAMIN B-12) 500 MCG PO DAILY #30 TAB Ref 2 Prov: 06/25/22 Reported Medications GABAPENTIN (NEURONTIN) 300 MG PO TID INSULIN GLARGINE (LANTUS) 30 UNITS SUBQ BEDTIME INSULIN LISPRO (HumaLOG) 15 UNITS SUBQ AC PARoxetine HCL (PAXIL) 20 MG PO DAILY Melatonin (MELATONIN) 10 MG SL BEDTIME CLOPIDOGREL (PLAVIX) 75 MG PO DAILY CHOLECALCIFEROL (VITAMIN D3) (VITAMIN D3) 1,000 UNITS PO DAILY Physical Exam Vital Signs Review of Vital Signs Reviewed Free Text PE Notes Free Text PE Notes General appearance: no acute distress, interacti ve Head/Eyes: atraumatic, normocephalic ENT: moist mucosal membranes Neck: full range of motion, supple/no meningismu s Cardiovascular: S1-S2 present, regular rate and rhythm Respiratory: no acute respiratory distress Abdomen: soft, not distended, no tenderness to p alpation Extremities: normal color, no deformities 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: Alert, following commands Skin: There is induration, swelling tissue aroun d the area of bypass incision over the sternum. Re-Evaluation MDM Free Text MDM Notes Free Text MDM Notes My evaluation of this patient 67-year-old female previous medical history hypertension, diabetes, recently status post cor onary artery bypass graft presenting to this facility with complaints of d rainage, pain, redness at the incision site of her bypass. She denies fever or chills but noticed the other day thick yellow drainage. Physical exam is as described above and notable for overall hemodynamically stable female patient, no acute distress. There does appear to be infected tissue around t he area of coronary artery bypass graft. Antibiotics initiated within the emergency depar tment, coverage for sepsis. Will admit this patient for additional managemen t and work-up. Terrie Luke MD ED Course Medication(s) Ordered Medication(s) Ordered: Anti-Infective Agents Sig/William Start time Last Medication Dose Route Stop Time Status Admin Piperacillin Sod/ 3.375 GM X1ED STA 07/12 1703 DC 07/12 Tazobactam Sod IV 07/12 173 1745 Sodium Chloride 100 ML Vancomycin HCl 1,000 MG X1ED STA 07/12 1703 DC 07/12 Sodium Chloride 250 ML IV 07/12 1802 1825 Diagnostic Agents Sig/William Start time Last Medication Dose Route Stop Time Status Admin Iopamidol 100 ML .STK-MED ONE 07/12 192 DC IV 07/12 192 1925 Electrolytic, Caloric, And Faiza Sig/William Start time Last Medication Dose Route Stop Time Status Admin Sodium Chloride 1,000 ML X1ED STA 07/12 1702 DC 07/12 IV 07/12 1801 1745 Patient Discharge Departure Vital Signs/Condition Condition Stable Clinical Impression Clinical Impression Primary Impression: Post-operative infection Disposition Decision Admit Admit Physician Name Robert Ochoa MD Admit Physician Hospitalist Request Time 2013 Request Date 07/12/22 )( Admission Accepts Yes )( Accepted Time 2013 )( Accepted Date 07/12/22 Call Information will see patient Discharge/Care Plan (Auto) Prescriptions Current Visit Scripts DOXYCYCLINE HYCLATE (VIBRA-TAB) 100 MG PO Q12H 14 Days #28 TABS AMIODARONE (PACERONE) 200 MG PO DAILY AMIODARONE (PACERONE) 200 MG PO DAILY #60 TAB R ef 1 FUROSEMIDE (LASIX) 40 MG PO BID 9A 5P 14 Days #28 TAB POTASSIUM CHLORIDE ER (KLOR-CON M20) 40 MEQ PO D AILY 14 Days #14 TAB Electronically Signed by Holden Montoya on 0 07/12/22 at 2033 Electronically Signed by Terrie Luke MD o n 08/13/22 at 1639 RPT #:[id number] END OF REPORT 2022-06-25 14:11:00-00:00 [facility] Hospitalist Discharge Summary REPORT#:[id number] REPORT STATUS: Signed DATE:06/25/22 TIME: 1411 PATIENT: KALA TURPIN UNIT #: [id number] ROOM/BED: [place] [address] : 57 AGE: 67 SEX: F ATTEND: Reji Patel MD ADM AUTHOR: Bang Patel MD * ALL edits or amendments must be made on the el [employer] document * General Information Date of admission: Observation Start Date: 06/15/22 Date of admission: 06/15/22 Discharge date: 06/25/22 Admission diagnosis: 1. CAD 2. DM 3. HLD Discharge diagnosis: 1. CAD 2. DM 3. HLD Hospital course: This is 67-year-old female with past medical his tory of stroke, hypertension, hyperlipidemia, diabetes (on insulin), obstructi ve sleep apnea, PAD, 2 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 Presented to the emergency room, was evaluated by cardiology and underwent left h eart cath. Coronary angiogram revealed severe multivessel coronary artery dise ase involving LAD which is totally occluded after the m idportion; diagonal OM branch with proximal stenosis 60 to 70%, left 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 Patient transferred to [facility] for surgical revascularization. Surgical precedures; 1. Coronary artery bypass graft surgery x 4 (MASTERSON A to LAD, saphenous vein to diagonal, saphenous vein to marginal, saphenous vein to PDA). 2. Amputation of left atrial appendage. 3. Endoscopic vein harvesting (right greater sap henous vein). 4. Posterior pericardiotomy. Patient did develop atrial fibrillation postsurg kimberli. This was treated with amiodarone. Eventually chest tube were removed and t he rest of the postop care was without complication. Consultants: cardiology Pt. condition on discharge: improved, stable Allergies: Allergies: adhesive tape (Coded, RASH, 06/15/22) niacin (Coded, Mild, ANXIETY, 06/15/22) zolpidem (From AMBIEN) (Coded, CONFUSION, ) Free Text DxA P Notes Free text DxA P notes: atrial fibrillation off amio drip converted to NSR CAD cath with multivessel CAD CTS seen Status post 4 vessel CABG today echo wnl Status post CABG Off Levophed off dopamine drip Patient extubated Has 2 chest tubes which have been removed DM on SSI prn monitor sugars closely HLD stable anemia s/p one unit hgb stable food getting stuck in the esophagus GI seen follow labs d/c home tomorrow. Med Rec Med Rec Discharge meds: Stop taking the following medications: LOSARTAN (COZAAR) 25 MG TAB 25 MILLIGRAM ORAL DAILY. HYDROCHLOROTHIAZIDE (HCTZ) 12.5 MG CAP 12.5 MILLIGRAM ORAL DAILY. METOPROLOL SUCC XL (TOPROL XL) 25 MG TAB.SR.24H 25 MILLIGRAM ORAL DAILY. INSULIN NPH/REG INSULIN HUM (NovoLIN 70/30) 100 UNIT/ML (70-30) VIAL 130 UNITS SUBCUTANEOUS DAILY AT 0730. INSULIN NPH/REG INSULIN HUM (NovoLIN 70/30) 100 UNIT/ML (70-30) VIAL 140 UNITS SUBCUTANEOUS DAILY AT 1700. Continue taking these medications: PARoxetine HCL (PAXIL) 20 MG TAB 20 MILLIGRAM ORAL DAILY. Melatonin (MELATONIN) 1 MG TAB 10 MILLIGRAM SUBLINGUAL BEDTIME. GABAPENTIN (NEURONTIN) 600 MG TAB 300 MILLIGRAM ORAL TWICE DAILY. CLOPIDOGREL (PLAVIX) 75 MG TAB 75 MILLIGRAM ORAL DAILY. CHOLECALCIFEROL (VITAMIN D3) (VITAMIN D3) 25 MCG (1,000 UNIT) CAP 1,000 UNITS ORAL DAILY. Start taking the following new medications: FERROUS SULFATE (FEOSOL) 325 MG (65 MG IRON) TAB 325 MILLIGRAM ORAL DAILY. Qty = 30 Refills = 1 AMIODARONE (PACERONE) 200 MG TAB 200 MILLIGRAM ORAL TWICE DAILY. Qty = 60 Refills = 1 ATORVASTATIN (LIPITOR) 40 MG TAB 40 MILLIGRAM ORAL 2100 Qty = 30 Refills = 2 METOPROLOL TARTRATE (LOPRESSOR) 25 MG TAB 12.5 MILLIGRAM ORAL EVERY 12 HOURS. Days = 30 Qty = 30 Refills = 2 ASPIRIN (ASPIRIN) 81 MG TAB.CHEW 81 MILLIGRAM ORAL DAILY. Qty = 30 Refills = 2 INSULIN GLARGINE (LANTUS) 100 UNIT/ML VIAL 15 UNIT SUBCUTANEOUS BEDTIME. Qty = 10 Refills = 5 CYANOCOBALAMIN (VITAMIN B-12) 500 MCG TAB 500 MICROGRAM ORAL DAILY. Qty = 30 Refills = 2 INSULIN LISPRO (HumaLOG) 100 UNIT/ML VIAL 5 UNIT SUBCUTANEOUS BEFORE MEALS AND AT BEDTIME . Qty = 10 Refills = 5 Objective VS/I O Last Documented: Result Date Time Pulse Ox 95 06/25 1031 B/P 121/57 06/25 1031 B/P Mean 0.0 06/25 1031 O2 Delivery Room air 06/25 1031 Temp 98.2 06/25 1031 Pulse 62 06/25 1031 Resp 23 06/25 1031 FiO2 21 06/23 2044 O2 Flow Rate 0 06/21 1200 24 hour I O ending at 0700: 06/25 0700 06/24 1900 Intake Total 400 Output Total 500 Balance -100 Intake, Oral 400 Number Voids 2 2 Output, Urine 500 Patient 101.5 kg Weight Weight Standing scale Measurement Method General appearance: alert, awake, oriented Head/Eyes: atraumatic, clear cornea, EOMI, PERRL A Neck: supple/no meningismus Cardiovascular: normal heart sounds, reg ular rate rhythm, no gallop, no murmur , no rub Respiratory: aerating well, clear to auscultatio n Abdomen: non-tender, normal bowel sounds, soft, no distention Extremities: no clubbing, no cyanosis, no edema Musculoskeletal: normal inspection, painless ran ge of motion 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, oriented X 3 Skin: dry, intact Results Findings/Data: Laboratory Tests: 06/25 06/25 06/25 06/24 1154 0717 0400 2006 Chemistry Sodium (134 - 147 mEq/L) 143 Potassium (3.4 - 5.0 mEq/L) 4.4 Chloride (100 - 108 mEq/L) 108 Carbon Dioxide (21 - 33 mEq/l) 29 Anion Gap (0 - 20) 10 BUN (7 - 18 mg/dL) 19 H Creatinine (0.6 - 1.3 mg/dL) 1.0 Glomerular Filtr Rate (80 - 90) 62.5 L Glucose (70 - 110 mg/dL) 158 H POC Glucose (70 - 110 MG/DL) 239 H 160 H 250 H Calcium (8.0 - 10.5 mg/dL) 9.0 Magnesium (1.80 - 2.40 mg/dL) 2.05 Hematology WBC (4.5 - 11.0 x10 3/uL) 9.5 RBC (3.54 - 5.02 x10 6/uL) 2.82 L Hgb (11.0 - 15.0 g/dL) 8.6 L Hct (33.0 - 45.0 %) 26.5 L MCV (81.0 - 99.0 fL) 94.0 MCH (27.0 - 33.0 pg) 30.5 MCHC (33.0 - 37.0 g/dL) 32.5 L RDW (11.5 - 14.5 %) 15.5 H Plt Count (150 - 400 x10 3/uL) 267 MPV (7.0 - 9.0 fL) 9.4 H Neut % (Auto) (56.0 - 77.0 %) 54.3 L Lymph % (Auto) (14.0 - 32.0 %) 33.5 H [place] % (Auto) (4.8 - 9.0 %) 6.9 Eos % (Auto) (0.3 - 3.7 %) 2.7 Baso % (Auto) (0.0 - 2.0 %) 0.3 Neut # (Auto) (2.0 - 7.6 x10 3/uL) 5.17 Lymph # (Auto) (1.0 - 3.8 x10 3/uL) 3.20 [place] # (Auto) (0.1 - 0.8 x10 3/uL) 0.66 Eos # (Auto) (0.0 - 0.2 x10 3/uL) 0.26 H Baso # (Auto) (0.0 - 0.2 x10 3/uL) 0.03 Abs Immat Gran (auto) (0.00 - 0.03 x10 3/uL) 0. 22 H Add Manual Diff NO Immature Gran % (0.0 - 2.0 %) 2.3 H Nucleated RBC % (0 - 0 %) 0.5 H Nucleated RBCs # (Man) (0.0 - 0.1 x10 3/uL) 0.0 5 06/24 1635 Chemistry POC Glucose (70 - 110 MG/DL) 156 H Radiology data: Recent Impressions: ULTRASOUND - DUP VEIN TRE 06/24 1535 Report Impression - Status: SIGNED Entered: 06/24/2022 1618 IMPRESSION: No evidence of deep vein thrombosis. Impression By: [email or web address] - Duncan Sandoval M.D. RADIOLOGY - XR CHEST 1 V 06/25 0758 Report Impression - Status: SIGNED Entered: 06/25/2022 0834 IMPRESSION: 1. [id number]-icmurmtogb enlarged cardiac silhouett e. 2. Small to moderate left pleural effusion. 3. Hbze-ce-mfemripk pulmonary edema versus infil trates. Impression By: [email or web address] - Victor Manuel Mcallister M.D. Discharge Instructions PCP PCP follow-up: PCP: Undefined Provider Discharge to: Home Health wPlan of Care Additional Discharge Routines: PCP Follow-Up, Co nsultant Follow-Up Diet: Diabetic, Cardiac Activity: As Tolerated Prescriptions: e-prescribe Discharge management: less than 30 mins Time spent: Time spent on patient care (minutes): 25 Follow-up Appointments PCP follow-up: PCP: Undefined Provider PCP follow up timeframe: In 3-4 weeks Consulting provider 1: Provider 1: Peggy Rogel MD Specialty: Thoracic Surgery Consult follow up timeframe: In 1-2 weeks Consulting provider 2: Provider 2: Julius Washington MD Specialty: CardiologyInterventional Follow up timeframe: In 1-2 weeks Consulting provider 3: Provider 3: Jurgen Wolf MD Specialty: Endocrinology Elisabet Metabo Follow up timeframe: In 2-3 weeks Quality: Discharge Advanced Care Plan 65 or Older Discussed with: patient Discussion included: living will (yes), power of photo colorer (yes), code status ( full code) Current Medications Current medication review: I attest that the foregoing medication list in [facility] medical record is true, accurate, and complete to the best of my knowled ge. at 1423 RPT #:[id number] END OF REPORT 2022-06-25 11:06:00-00:00 [id number] [place] [address] PATIENT NAME: KALA TURPIN ADMIT DATE: 06/15/22 ACCOUNT NO: [id number] ROOM NO: [id number] AGE: 67 REPORT TYPE: eECHOCARDIOGRAM REPORT SEX: F ADMITTING PHYSICIAN:MAYRA MYERS FOR ED ATTENDING PHYSICIAN:Bang Patel MD *[place] [address] Limited Transthoracic Echocardiogram Patient: Kala Turpin Study Date: 06/24/2022 BP: 131 / 63 Location: [facility] URN: [id number] : 1955 Age: 67 Height: 61 in / 155 cm Gender: F Weight: 222 .2 lb / 101 kg BMI/BSA: 42 kg/m 2 / 2.14 m 2 *Ordering Physician: * Peggy Rogel MD *Interpreting Physician: * Julius Washington MD *Strickler Attendant: * Joel Varela Indications: PERICARDIAL EFFUSION. Study data: Transthoracic echocardiogram, limite d study. Procedure: Transthoracic echocardiography was performed. Im age quality was adequate. Limited 2D and limited spectral Dopple r. Location: Bedside. Patient status: Inpatient. Patient room number: 3343. Study status: Routine. Findings Left ventricle: Systolic function is normal. Pericardium: There is no pericardial effusion. T here is a pleural effusion. Conclusions PATIENT NAME: KALA TURPIN 16 Summary: Left ventricle: Systolic function is no rmal. Prepared and electronically signed by Julius Washington MD 06/25/2022 11:06 Electronically Signed by Julius Washington MD on 0 06/25/22 at 1106 PATIENT NAME: KALA TURPIN 16 2022-06-25 09:36:00-00:00 [facility] ([facility] Cardiothoracic Surgery Prog REPORT#:[id number] REPORT STATUS: Signed DATE:06/25/22 TIME: 935 PATIENT: KALA TURPIN UNIT #: [id number] ROOM/BED: [address] : [birth year] AGE: 67 SEX: F ATTEND: Reji Patel MD ADM AUTHOR: [facility] * ALL edits or amendments must be made on the el ectronic/computer document * General Post-op: day 9 Status post: 06/16/22 CABG x 4 (LIN-LAD, SVG-Elisabet, SVG-OM, SVG-PDA) ALAA EVH (RGSV) Posterior pericardiotomy Subjective Chief complaint: Follow up CABG Resting comfortable, OOB in chair Review of Systems Constitutional: Reports: generalized weakness. Denies: chills, f atigue. Skin: Denies: diaphoresis, ecchymosis, laceration. Allergy/Immun: Denies: anaphylaxis, hives, rhinorrhea. Eyes: Denies: discharge, itching, eye pain. ENT: Denies: earache, mouth pain, throat pain, tootha spencer. Respiratory: Denies: pneumonia, SOB, wheezing. Cardiovascular: Denies: chest pain, palpitations. GI: Denies: abdominal pain, nausea, vomiting. : Denies: dysuria, flank pain. Musculoskeletal: Denies: extremity pain. Heme: Denies: petechiae. Endocrine: Denies: cold intolerance, polyphagia, weight los s. Neuro: Denies: change in LOC, dizziness, seizure, synco pe, unable to speak. All systems rev neg: except as marked Objective General VS/I O Last Documented: Result Date Time Pulse Ox 94 06/25 726 B/P 140/62 06/25 726 B/P Mean 0.0 06/25 726 O2 Delivery Room air 06/25 726 Temp 97.7 06/25 726 Pulse 57 06/25 726 Resp 19 06/25 726 FiO2 21 06/23 2044 O2 Flow Rate 0 06/21 1200 24 hour I O ending at 0700: 06/25 0700 06/24 1900 Intake Total 400 Output Total 500 Balance -100 Intake, Oral 400 Number Voids 2 2 Output, Urine 500 Patient 101.5 kg Weight Weight Standing scale Measurement Method PATIENT WEIGHT: Weight (lb): 223 Weight (oz): 12.31 Weight (kg): 101.500 Physical Exam General appearance: alert, awake, oriented Wound/incision: Location: sternal Site condition: edges approximated, incision in tact HEENT: anicteric, mucosal membranes moist, pupil s reactive to light Neck: full range of motion, non-tender, supple/n o meningismus Cardiovascular: normal heart sounds, regular rat e rhythm Respiratory: aerating well, symmetric expansion, no distress Abdomen: soft, non-tender Genitourinary: urine Extremities: dry, moves all Musculoskeletal: full range of motion 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, oriented X 3 Skin: dry, intact Psychiatry: normal affect, normal mood Treatment Prophylaxis Treatment Prophylaxis Oxygen: room air Drain(s)/tube(s): Drain(s)/tube(s): chest Diagnosis, Assessment Plan Hospital course to date: Very pleasant 67-year-old female with past medic al history of stroke, hypertension, hyperlipidemia, diabetes (on insul in), obstructive sleep apnea, PAD, 2 MIs in the past statu s post PCI/stenting (on Plavix at home), NonHodgkin' s lymphoma (2006) who was at home working on her computer when she suddenly developed severe chest pain radiating to left sh oulder and jaw. Presented to the emergency room, was evaluated by car diology and underwent left heart cath. Coronary angiogram revealed severe multivessel coronary artery disease involving LAD which is totally occluded after the midporti on; diagonal OM branch with proximal stenosis 60 to 70%, left circumflex wit h 80-90% stenosis. Patient transferred to [facility] for surgical revasc ularization. PLAN Coronary angiogram images re viewed with Dr. Rogel and findings discussed with the patient. Will benefit from surgical revascul arization. Initiate preop work-up for CABG Hold Plavix. Obtain platelet response test to Pl avix Carotid ultrasound Noncontrasted chest BLE venous Doppler for vein mapping and marking Completed echocardiogram Incentive spirometer teaching Physical therapy evaluation given Dionte hill me and limited mobilization Further recommendations to follow. 06/16/22 CABG x 4 (LIN-LAD, SVG-Elisabet, SVG-OM, SVG-PDA) ALAA EVH (RGSV) Posterior pericardiotomy 06/17/22 POD 1 Patient is alert and oriented, out of bed in dulce ir Labile blood pressure. Minimal pressor requireme nts, levo at 1, wean off as tolerated Transfuse 1 unit PRBC On 2l nasal cannula, encoura ge incentive spirometer use, nebs and deep breathing NSR on nutrition coordinator, no ectopy, epicardial pa cing wires on standby Keep both chest tubes and monitor outputs Cardiac diet Glycemic control on insulin drip, monitor blood sugars, consult endocrinology Bowel regimen protocol PT/OT DVT prophylaxis with SCDs and SQ heparin, GI pro phylaxis with PPI Monitor patient in CVICU Patient seen with Dr. Rogel, plan of care disc ussed with ICU team 06/18 No major events overnight, alert and oriented Wean O2 as tolerated. Encourage I-S On dopamine drip at 3 for renal perfusion; pt smith d low UOP yesterday Off levophed Cr 1.0 from 1.2. Strict I's and O's Chest tubes with minimal output; we will discont inue this morning Bowel regimen Glycemic control with insulin drip. Endocrinolog y following DVT prophylaxis with heparin subq Keep in CVICU today Pt seen and plan reviewed with Dr Rogel 06/19 POD 3 Patient in stable condition. Alert, awake, and o riented, oob in chair CXR and labs reviewed-stable Patient went into afib rvr- recieved amio bolus x 2 and amio drip Rebolus amio this am, Wean dopamine off and micah tor UOP and BP Monitor renal function, Cr 0.7 Strict I Os Cardiac diet, nutritional supplements SSI-glycemic control DVT ppx- SCDs and heparin SQ Continue supportive care in CVICU Rehab consulted Patient seen with Dr. Rogel, plan of care disc ussed with ICU team. 06/20/22 POD 4 Patient recovering well, alert, awake, and orien radha, no distress noted Breathing comfortable on ashlee m air, O2 sats 96%, Encourage I-S and deep breathing CXR shows small right pleural effusion, and stab le pulmonary opacities Remains a-fib rate controlled, on IV amio, rebol us amio today Discontinue staples and central line Diuresis with lasix 20 IV x 1 Strict I Os, daily weights GI consulted for patient fee ling food gets stuck in the middle of the esophagus, possible EGD Rehab following DVT prophylaxis with subq heparin and SCDS Monitor patient in CVICU Patient seen with Dr. Rogel, plan of care disc ussed with ICU team. 06/21/22 POD 5 Patient alert, awake, and oriented, no distress noted Remains in rate controlled a-fib, plan for cardi oversion today- Successful cardioversion into Sinus rhythm Keep O2 sats > 92%, on room air Continue pulmonary toileting, nebs, I-S use Discontinue central line Labs and chest x-ray reviewed- stable Cardiac diet, bowel regimen protocol- give suppo sitory today Pain controlled Daily weights, strict I Os DVT prophylaxis with SCDs and heparin SQ, GI pro phylaxis with PPI Rehab following Continue therapy with PT/OT Patient seen with Dr. Rogel, plan of care disc ussed with multidisciplinary team 06/22 POD 6 Patient alert, awake, and oriented, no distress noted Patient cardioverted to sinus rhtyhm with cardio version. on amiodarone PO. Keep O2 sats > 93%, on room air Continue pulmonary toileting, nebs, I-S use Discontinue central line Labs and chest x-ray reviewed- stable Cardiac diet, bowel regimen protocol- give suppo sitory today BM with enema this am. Daily weights, strict I Os DVT prophylaxis with SCDs and heparin SQ, GI pro phylaxis with PPI Gi following- consider outpaitnet workup. Rehab following- Patient family want to take her home will order home health. Continue therapy with PT/OT Patient seen with Dr. Rogel, plan of care disc ussed with multidisciplinary team 06/23/22 POD 7 Patient recovering well, alert, awake and orient ed Breathing comfotable on room air Encourage deep breathing and incentive spiromete r use CXR and labs reviewed- stable Tolerating diet, + BM EGD to be done as outpatient- GI following Daily weights and strict I Os DVT prophylaxis with SCDs and heparin SQ, GI pro phylaxis with PPI Rehab following- Patient family want to take her home residential program manager consulted for home health services Continue therapy with PT/OT Transfer to intermediate care unit Patient seen with Dr. Rogel, plan of care disc ussed with multidisciplinary team 06/24/22 POD 8 Patient doing well, no distress labs and CXR reviewed On room air I-S use encouraged DC'd pacing wires, obtain echo to r/o pericardia l effusion BLE venous dopplers to r/o DVT Cardiac diet Bowel regimen Possible discharge home tomorrow with home healt h support 06/25/22 POD 9 Patient doing well, no distress labs and CXR reviewed On room air I-S use encouraged Dopplers negative for DVT Echo pending Cardiac diet Bowel regimen Possible discharge with home health health and h usband support penind no effusion on echo. Consultants: cardiology at 1525 RPT #:[id number] END OF REPORT 2022-06-25 06:31:00-00:00 [facility] ([facility]) Rehab Progress Note REPORT#:[id number] REPORT STATUS: Signed DATE:06/25/22 TIME: 630 PATIENT: KALA TURPIN UNIT #: [id number] ROOM/BED: [place] [address] : 59 AGE: 67 SEX: F ATTEND: Reji aPtel MD ADM AUTHOR: Kalen Castellanos * ALL edits or amendments must be made on the [employer] document * Subjective Chief complaint: rehab follow-up States slept much better last night Sitting up in chair eating breakfast NAD denied pain and sob Denies SMITH/N/V/D/CP 14 systems reviewed and neg. except that above. Objective General VS: Vital Signs: Date Time Temp Pulse Resp B/P B/P Pulse O2 O2 F low FiO2 Mean Ox Delivery Rate 06/25 0411 97.7 53 14 98/65 0.0 95 06/25 0007 97.9 56 21 154/79 103.8 95 06/24 2150 Room air 06/24 1638 98.1 58 21 157/69 0.0 96 Room air 06/24 1636 57 25 157/69 99 06/24 1546 56 18 131/63 90 04 1330 54 21 126/58 83 97 04 1320 53 16 132/61 88 96 06/24 1310 53 16 126/62 89 97 06/24 1300 53 18 121/58 83 97 06/24 1250 53 16 125/60 87 97 06/24 1240 53 15 122/62 88 97 06/24 1230 53 16 131/56 89 98 06/24 1220 55 22 150/65 94 98 06/24 1219 55 23 159/70 101 98 06/24 1100 98.1 55 19 105/50 0.0 98 Room air 06/24 1059 56 23 105/50 72 97 06/24 0732 98.2 54 13 129/60 0.0 98 Room air 06/24 0731 54 13 129/60 86 96 PATIENT WEIGHT: Weight (lb): 223 Weight (oz): 12.31 Weight (kg): 101.500 Medications: Active Meds + DC'd Last 24 Hrs Polyethylene Glycol (MIRALAX) 17 GM BID PO Amiodarone HCl (CORDARONE) 200 MG BID PO Insulin Human Lispro (HUMALOG) 0 AC HS SUBQ Insulin Human Lispro (HUMALOG) 5 UNIT AC HS SUBQ Hydralazine HCl (APRESOLINE) 10 MG Q6H PRN PRN I V Gabapentin (NEURONTIN) 300 MG BID PO Insulin Glargine (Lantus/Semglee) 15 UNIT BEDTIM E SUBQ Paroxetine HCl (PAXIL) 20 MG DAILY PO Multi-Ingredient Mouthwash/Gargle (MAGIC MOUTHWA SH) 10 ML Q4H PRN PRN PO Pantoprazole (PROTONIX) 40 MG 0600,1800 PO Ipratropium [place] (ATROVENT) 500 MCG Q2H PRN P RN INH Cyanocobalamin (Vitamin B-12 500 mcg tab) 500 MC G DAILY PO Ferrous Sulfate (FERROUS SULFATE) 325 MG DAILY P O Amiodarone HCl (AMIODARONE HCL) 450 MG ASDIR IV (CKD) Dextrose/Water (D5%W NON-DEHP) 250 ML Bisacodyl (DULCOLAX) 10 MG ONCE PRN RECTAL Magnesium Hydroxide (MILK OF MAGNESIA) 30 ML ONC E PRN PO Heparin Sodium (HEPARIN 5000 UNITS/ML) 5,000 UNI T Q12HR SUBQ Dextrose/Water (DEXTROSE 10% IN WATER) 250 ML DIR PRN IV (CKD) Insulin Human Regular (HumuLIN R) 100 UNIT ASDIR IV (CKD) Sodium Chloride (SODIUM CHLORIDE 0.9%) 99 ML Dopamine HCl/Dextrose (DOPamine 400MG/D5W 250ML) 250 ML ASDIR IV Clopidogrel Bisulfate (Plavix) 75 MG DAILY PO Docusate Sodium (COLACE) 100 MG BID PO Metoprolol Tartrate (LOPRESSOR) 12.5 MG Q12HR PO Sennosides (Senna Lax 8.6 MG TABLET) 17.2 MG BED TIME PO Aspirin (ASPIRIN) 81 MG DAILY PO Acetaminophen (TYLENOL) 650 MG Q4H PRN PRN PO Acetaminophen (TYLENOL) 650 MG Q4H PRN PRN RECTA L Calcium Chloride (CALCIUM CHLORIDE) 1 GM ASDIR P RN IV Dextrose/Water (DEXTROSE 10% IN WATER) 125 ML DIR PRN IV (CKD) Dextrose/Water (DEXTROSE 10% IN WATER) 250 ML DIR PRN IV (CKD) Epinephrine (ADRENALIN CHLORIDE) 4 MG ASDIR IV Dextrose/Water (DEXTROSE 5% WATER) 246 ML Glucagon (GLUCAGON) 1 MG ASDIR PRN IM Magnesium Sulfate (MAGNESIUM SULFATE 4GM/SWFI 10 0ML) 100 ML ASDIR PRN IV Magnesium Sulfate (MAGNESIUM SULFATE 2GM/SWFI 50 ML) 50 ML ASDIR PRN IV Magnesium Sulfate/Dextrose (MAGNESIUM SULFATE 1G M/D5W 100ML) 100 ML ASDIR PRN IV Nitroglycerin/Dextrose (NITROGLYCERIN 50,000MCG/ D5W 250ML) 250 ML ASDIR IV Norepinephrine Bitartrate (NOREPINEPHRINE 8 MG/N S 250 ML) 250 ML TITRATE IV Ondansetron HCl (ZOFRAN) 4 MG Q6H PRN PRN IV Potassium Chloride (KCL 20MEQ/SWFI 100ML) 100 ML ASDIR PRN IV Sodium Bicarbonate (SODIUM BICARBONATE) 50 MEQ A SDIR PRN IV Sodium Chloride (SODIUM CHLORIDE 0.9%) 1,000 ML .Q20H IV Sodium Chloride (SODIUM CHLORIDE 0.9%) 250 ML Q2 4H IV Atorvastatin Calcium (LIPITOR) 40 MG 2100 PO Melatonin (Melatonin) 6 MG BEDTIME PO Sodium Chloride (SODIUM CHLORIDE) 20 ML ASDIR IV Acetaminophen (TYLENOL) 650 MG Q4H PRN PRN PO Functional Progress Functional progress: Weightbearing: No Restriction STERNAL PRECATION Ambulation Distance: 30 FT X 1 Progression: Forward Assistance Level: Supervision or Set-up Gait Deviations: SHORT STEPS [facility] Mobility: No Document Pain/Education: No Advanced Progression: No Effects of Treatment: Tolerance increased Cardio tolerance improved Post TX Precautions: In Chair Review Plan of Care: Yes PT charges: Gait Training [id number] Gait Cmt: Pt SEEN FOR GAIT TRG. GIS PROGRAMMER AT BEDSIDE TO TAKE Pt TO ULTRASOUND. Pt ASSISTED TO WALK TO TOILET AND THEN THE CHAIR OUT THE DOOR. Pt DEM O ABLE TO MAINTAIN STERNAL PREC. Pt REPORTED FELT SOB AFTER SHORT DISTANCE WALK. VC'S FOR PROPER BREATHING. PROGRESS ABLE. If this is the patient's last treatment, this e ntry serves as the discharge summary: Y Start Time: 1449 Stop Time: 1457 Treatment Time : ( minutes) 0:08 Completed by: Sandy Little . BED MOBILITY: Yes TRANSFERS: Yes Bed to/from chair: Supervision or Set-up Sit to/from stand: Supervision or Set-up Comments: ABLE TO MAINTAIN STERNAL PREC Physical Exam General appearance: alert, awake Psych: alert, oriented x 3 HEENT: anicteric, mucosal membranes moist Neck: supple, no JVD Respiratory: aerating well, clear bilaterally Abdomen: bowel sounds present, non-distended, so ft, non-tender Skin: dry, intact, no rash Musculoskeletal - general: Musculoskeletal - general: swelling (BLE) 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, oriented X 3, CNII-XII intact, normal speech, no motor deficits, no sensory deficits Results Findings/Data: Laboratory Tests: 06/250 2006 1635 1057 0729 Chemistry Sodium (134 - 147 mEq/L) 143 Potassium (3.4 - 5.0 mEq/L) 4.4 Chloride (100 - 108 mEq/L) 108 Carbon Dioxide (21 - 33 mEq/l) 29 Anion Gap (0 - 20) 10 BUN (7 - 18 mg/dL) 19 H Creatinine (0.6 - 1.3 mg/dL) 1.0 Glomerular Filtr Rate (80 - 90) 62.5 L Glucose (70 - 110 mg/dL) 158 H POC Glucose (70 - 110 MG/DL) 250 H 156 H 178 H 151 H Calcium (8.0 - 10.5 mg/dL) 9.0 Magnesium (1.80 - 2.40 mg/dL) 2.05 Hematology WBC (4.5 - 11.0 x10 3/uL) 9.5 RBC (3.54 - 5.02 x10 6/uL) 2.82 L Hgb (11.0 - 15.0 g/dL) 8.6 L Hct (33.0 - 45.0 %) 26.5 L MCV (81.0 - 99.0 fL) 94.0 MCH (27.0 - 33.0 pg) 30.5 MCHC (33.0 - 37.0 g/dL) 32.5 L RDW (11.5 - 14.5 %) 15.5 H Plt Count (150 - 400 x10 3/uL) 267 MPV (7.0 - 9.0 fL) 9.4 H Neut % (Auto) (56.0 - 77.0 %) 54.3 L Lymph % (Auto) (14.0 - 32.0 %) 33.5 H [place] % (Auto) (4.8 - 9.0 %) 6.9 Eos % (Auto) (0.3 - 3.7 %) 2.7 Baso % (Auto) (0.0 - 2.0 %) 0.3 Neut # (Auto) (2.0 - 7.6 x10 3/uL) 5.17 Lymph # (Auto) (1.0 - 3.8 x10 3/uL) 3.20 [place] # (Auto) (0.1 - 0.8 x10 3/uL) 0.66 Eos # (Auto) (0.0 - 0.2 x10 3/uL) 0.26 H Baso # (Auto) (0.0 - 0.2 x10 3/uL) 0.03 Abs Immat Gran (auto) (0.00 - 0.03 0.22 H x10 3/uL) Add Manual Diff NO Immature Gran % (0.0 - 2.0 %) 2.3 H Nucleated RBC % (0 - 0 %) 0.5 H Nucleated RBCs # (Man) (0.0 - 0.1 0.05 x10 3/uL) Diagnosis, Assessment Plan Free Text A P: Multivessel CAD Status post CABG x4 Impaired mobility and gait Generalized weakness Postoperative anemia requiring transfusion Diabetes Hyperlipidemia Orthostatic hypotension Plan: Continue PT/OT Out of bed to chair Work on strength, bed mobility, transfers, gait Sternal precautions Increase endurance Fall precautions Monitor p.o. intake and nutrition Monitor labs Strict decubitus precautions Advance therapies as tolerated HUMAN RESOURCE ANALYST [facility] was able to walk 10 to 20 feet. S/P cardioversion Improving with mobility and strength Venous Dopplers 06/24 negative for DVT Pt and family want to go home with HH/PT when me dically cleared. Discharge planning ongoing Total time was 33minutes > 50% with patient perf orming physical examination, discussing plan of care, goals, therapies, progr ess, medications, labs, discharge planning. All questions answered Rehab attestation: . Electronically Signed by Kalen Castellanos on 0 06/25/22 at 2052 RPT #:[id number] END OF REPORT 2022-06-24 23:48:00-00:00 [facility] ([facility] Cardiology Progress Note REPORT#:[id number] REPORT STATUS: Signed DATE:06/24/22 TIME: 2347 PATIENT: KALA TURPIN UNIT #: [id number] ROOM/BED: 3343-1 : 57 AGE: 67 SEX: F ATTEND: Reji Patel MD ADM AUTHOR: Julius Washington MD * ALL edits or amendments must be made on the [employer] document * Subjective Free Text Subj Notes Free Text Subj Notes: could sleep last night, had chest and anxiety la st night Objective General VS/I O: 24 hour I O ending at 0700: 06/24 0700 06/23 1900 Intake Total 375 Output Total Balance 375 Intake, Oral 375 Number 0 Bowel Movements Number Voids 3 Patient 101 kg Weight Weight Standing scale Measurement Method Vital Signs: Date Time Temp Pulse Resp B/P B/P Pulse O2 O2 F low FiO2 Mean Ox Delivery Rate 06/24 1638 98.1 58 21 157/69 0.0 96 Room air 06/24 1636 57 25 157/69 99 06/24 1546 56 18 131/63 90 06/24 1330 54 21 126/58 83 97 06/24 1320 53 16 132/61 88 96 06/24 1310 53 16 126/62 89 97 06/24 1300 53 18 121/58 83 97 06/24 1250 53 16 125/60 87 97 06/24 1240 53 15 122/62 88 97 06/24 1230 53 16 131/56 89 98 06/24 1220 55 22 150/65 94 98 04/01 1219 55 23 159/70 101 98 06/24 1100 98.1 55 19 105/50 0.0 98 Room air 06/24 1059 56 23 105/50 72 97 06/24 0732 98.2 54 13 129/60 0.0 98 Room air 06/24 0731 54 13 129/60 86 96 06/24 0533 97.7 55 13 134/79 97.3 96 Room air PATIENT WEIGHT: Weight (lb): 222 Weight (oz): 10.67 Weight (kg): 101.000 Medications: Active Meds + DC'd Last 24 Hrs Polyethylene Glycol (MIRALAX) 17 GM BID PO Amiodarone HCl (CORDARONE) 200 MG BID PO Insulin Human Lispro (HUMALOG) 0 AC HS SUBQ Insulin Human Lispro (HUMALOG) 5 UNIT AC HS SUBQ Hydralazine HCl (APRESOLINE) 10 MG Q6H PRN PRN I V Gabapentin (NEURONTIN) 300 MG BID PO Insulin Glargine (Lantus/Semglee) 15 UNIT BEDTIM E SUBQ Paroxetine HCl (PAXIL) 20 MG DAILY PO Multi-Ingredient Mouthwash/Gargle (MAGIC MOUTHWA SH) 10 ML Q4H PRN PRN PO Pantoprazole (PROTONIX) 40 MG 0600,1800 PO Ipratropium [place] (ATROVENT) 500 MCG Q2H PRN P RN INH Cyanocobalamin (Vitamin B-12 500 mcg tab) 500 MC G DAILY PO Ferrous Sulfate (FERROUS SULFATE) 325 MG DAILY P O Amiodarone HCl (AMIODARONE HCL) 450 MG ASDIR IV (CKD) Dextrose/Water (D5%W NON-DEHP) 250 ML Bisacodyl (DULCOLAX) 10 MG ONCE PRN RECTAL Magnesium Hydroxide (MILK OF MAGNESIA) 30 ML ONC E PRN PO Heparin Sodium (HEPARIN 5000 UNITS/ML) 5,000 UNI T Q12HR SUBQ Dextrose/Water (DEXTROSE 10% IN WATER) 250 ML DIR PRN IV (CKD) Insulin Human Regular (HumuLIN R) 100 UNIT ASDIR IV (CKD) Sodium Chloride (SODIUM CHLORIDE 0.9%) 99 ML Dopamine HCl/Dextrose (DOPamine 400MG/D5W 250ML) 250 ML ASDIR IV Clopidogrel Bisulfate (Plavix) 75 MG DAILY PO Docusate Sodium (COLACE) 100 MG BID PO Metoprolol Tartrate (LOPRESSOR) 12.5 MG Q12HR PO Sennosides (Senna Lax 8.6 MG TABLET) 17.2 MG BED TIME PO Aspirin (ASPIRIN) 81 MG DAILY PO Acetaminophen (TYLENOL) 650 MG Q4H PRN PRN PO Acetaminophen (TYLENOL) 650 MG Q4H PRN PRN RECTA L Calcium Chloride (CALCIUM CHLORIDE) 1 GM ASDIR P RN IV Dextrose/Water (DEXTROSE 10% IN WATER) 125 ML DIR PRN IV (CKD) Dextrose/Water (DEXTROSE 10% IN WATER) 250 ML DIR PRN IV (CKD) Epinephrine (ADRENALIN CHLORIDE) 4 MG ASDIR IV Dextrose/Water (DEXTROSE 5% WATER) 246 ML Glucagon (GLUCAGON) 1 MG ASDIR PRN IM Magnesium Sulfate (MAGNESIUM SULFATE 4GM/SWFI 10 0ML) 100 ML ASDIR PRN IV Magnesium Sulfate (MAGNESIUM SULFATE 2GM/SWFI 50 ML) 50 ML ASDIR PRN IV Magnesium Sulfate/Dextrose (MAGNESIUM SULFATE 1G M/D5W 100ML) 100 ML ASDIR PRN IV Nitroglycerin/Dextrose (NITROGLYCERIN 50,000MCG/ D5W 250ML) 250 ML ASDIR IV Norepinephrine Bitartrate (NOREPINEPHRINE 8 MG/N S 250 ML) 250 ML TITRATE IV Ondansetron HCl (ZOFRAN) 4 MG Q6H PRN PRN IV Potassium Chloride (KCL 20MEQ/SWFI 100ML) 100 ML ASDIR PRN IV Sodium Bicarbonate (SODIUM BICARBONATE) 50 MEQ A SDIR PRN IV Sodium Chloride (SODIUM CHLORIDE 0.9%) 1,000 ML .Q20H IV Sodium Chloride (SODIUM CHLORIDE 0.9%) 250 ML Q2 4H IV Atorvastatin Calcium (LIPITOR) 40 MG 2100 PO Melatonin (Melatonin) 6 MG BEDTIME PO Sodium Chloride (SODIUM CHLORIDE) 20 ML ASDIR IV Acetaminophen (TYLENOL) 650 MG Q4H PRN PRN PO Physical Exam General appearance: alert, awake, oriented Neck: non-tender Cardiovascular: CV assessment: pedal edema, regular rate and rh ythm Respiratory: decreased breath sounds, no distres s Abdomen: soft, non-tender, normal bowel sounds, no distention Genitourinary: urinary catheter, urine Lower extremity: LE assessment: edema, no calf tenderness 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, oriented X 3, normal speech Skin: dry, intact, normal color Psychiatry: normal affect, normal judgment/insig ht, normal mood Results Findings/Data: Laboratory Tests 06/24 1635 1057 0729 0515 Chemistry Sodium (134 - 147 mEq/L) 141 Potassium (3.4 - 5.0 mEq/L) 4.6 Chloride (100 - 108 mEq/L) 107 Carbon Dioxide (21 - 33 mEq/l) 28 Anion Gap (0 - 20) 11 BUN (7 - 18 mg/dL) 12 Creatinine (0.6 - 1.3 mg/dL) 1.0 Glomerular Filtr Rate (80 - 90) 62.5 L Glucose (70 - 110 mg/dL) 135 H POC Glucose (70 - 110 MG/DL) 250 H 156 H 178 H 151 H Calcium (8.0 - 10.5 mg/dL) 9.4 Magnesium (1.80 - 2.40 mg/dL) 2.03 Laboratory Tests 06/24 0515 Hematology WBC (4.5 - 11.0 x10 3/uL) 8.8 RBC (3.54 - 5.02 x10 6/uL) 3.03 L Hgb (11.0 - 15.0 g/dL) 9.2 L Hct (33.0 - 45.0 %) 29.2 L MCV (81.0 - 99.0 fL) 96.4 MCH (27.0 - 33.0 pg) 30.4 MCHC (33.0 - 37.0 g/dL) 31.5 L RDW (11.5 - 14.5 %) 15.6 H Plt Count (150 - 400 x10 3/uL) 178 MPV (7.0 - 9.0 fL) 10.4 H Neut % (Auto) (56.0 - 77.0 %) 58.0 Lymph % (Auto) (14.0 - 32.0 %) 31.7 [place] % (Auto) (4.8 - 9.0 %) 6.3 Eos % (Auto) (0.3 - 3.7 %) 2.3 Baso % (Auto) (0.0 - 2.0 %) 0.3 Neut # (Auto) (2.0 - 7.6 x10 3/uL) 5.11 Lymph # (Auto) (1.0 - 3.8 x10 3/uL) 2.79 [place] # (Auto) (0.1 - 0.8 x10 3/uL) 0.55 Eos # (Auto) (0.0 - 0.2 x10 3/uL) 0.20 Baso # (Auto) (0.0 - 0.2 x10 3/uL) 0.03 Abs Immat Gran (auto) (0.00 - 0.03 x10 3/uL) 0 .12 H Add Manual Diff NO Immature Gran % (0.0 - 2.0 %) 1.4 Nucleated RBC % (0 - 0 %) 0.9 H Nucleated RBCs # (Man) (0.0 - 0.1 x10 3/uL) 0.0 8 Laboratory Tests 06/24 0515 Chemistry Magnesium (1.80 - 2.40 mg/dL) 2.03 Radiology data: Recent Impressions: ULTRASOUND - DUP VEIN TRE 06/24 1535 Report Impression - Status: SIGNED Entered: 06/24/2022 1618 IMPRESSION: No evidence of deep vein thrombosis. Impression By: [email or web address] - Duncan Sandoval M.D. Diagnosis, Assessment Plan Free Text DxA P Notes Free Text DxA P Notes: 67-year-old female with [facility] history of CAD, MA, prior PCI/MEG 11 years ago, hypertension, diabetes carlai jared, CVA, peripheral neuropathy, Charcot's foot who presented to with chest pain. She was taken for left heart catheterization where she wa s found to have multivessel CAD with failed attempt to PCI the CUT OFF SAWYER LAD. Patient is transferred to [facility] facility for surgical revascularization. 1. Multivessel CAD CABG x 4 (LIN-LAD, SVG-Elisabet, SVG-OM, SVG-PDA) Continue aspirin, beta-xander, statin post-op anemia, HH stable negative fluid balance 2. Hypertension BP stable continue BB 3. Diabetes mellitus Manage per primary team 4. Post-operative Afib s/p DCC to sinus rhythm s/p ALAA 06/22 - transient bradycardia, amiodarone decreas ed to 200 mg BID, metoprolol held on amiodarone 400 mg BID Continue supportive care. Electronically Signed by Juilus Washington MD on at 2353 RPT #:[id number] END OF REPORT 2022-06-24 13:47:00-00:00 [facility] Hospitalist Progress Note REPORT#:[id number] REPORT STATUS: Signed DATE:06/24/22 TIME: 1347 PATIENT: KALA TURPIN UNIT #: [id number] ROOM/BED: [address] : [address] AGE: 67 SEX: F ATTEND: Reji Patel MD ADM AUTHOR: Bang Patel MD * ALL edits or amendments must be made on the el [employer] document * Subjective Chief complaint: Having some anxiety last night. 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 Presented to the emergency room, was evaluated by cardiology and underwent left h eart cath. Coronary angiogram revealed severe multivessel coronary artery dise ase involving LAD which is totally occluded after the m idportion; diagonal OM branch with proximal stenosis 60 to 70%, left 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 Patient transferred to [facility] for surgical revascularization. Objective General VS/I O: Vital Signs: Date Time Temp Pulse Resp B/P B/P Pulse O2 O2 F low FiO2 Mean Ox Delivery Rate 06/24 1320 53 16 132/61 88 96 06/24 1310 53 16 126/62 89 97 06/24 1300 53 18 121/58 83 97 06/24 1250 53 16 125/60 87 97 06/24 1240 53 15 122/62 88 97 06/24 1230 53 16 131/56 89 98 04 1220 55 22 150/65 94 98 06/24 1219 55 23 159/70 101 98 04/ 1100 98.1 55 19 105/50 0.0 98 Room air 06/24 0732 98.2 54 13 129/60 0.0 98 Room air 06/24 532 97.7 55 13 134/79 97.3 96 Room air 06/23 2326 98.1 60 13 151/78 102.5 100 Room air 06/234 98 Room air 06/23 1942 98 Room air 06/23 190 98.1 59 13 144/64 0.0 97 Room air 06/23 1905 59 20 144/64 96 06/23 1839 134/62 99 06/23 1613 98.1 58 16 94/58 69.8 99 24 hour I O ending at 0700: 06/24 0706/23 1900 Intake Total 375 Output Total Balance 375 Intake, Oral 375 Number 0 Bowel Movements Number Voids 3 Patient 101 kg Weight Weight Standing scale Measurement Method PATIENT WEIGHT: Weight (lb): 222 Weight (oz): 10.67 Weight (kg): 101.000 Physical Exam General appearance: alert, awake, oriented Head/Eyes: atraumatic, clear cornea, EOMI, PERRL A Neck: supple/no meningismus Cardiovascular: normal heart sounds, reg ular rate rhythm, no gallop, no murmur , no rub Respiratory: aerating well, clear to auscultatio n Abdomen: non-tender, normal bowel sounds, soft, no distention Extremities: no clubbing, no cyanosis, no edema Musculoskeletal: normal inspection, painless ran ge of motion 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, oriented X 3 Skin: dry, intact Results Findings/Data: Laboratory Tests 06/24 06/24 06/24 06/23 06/23 1057 0729 0515 1906 1614 Chemistry Sodium (134 - 147 mEq/L) 141 Potassium (3.4 - 5.0 mEq/L) 4.6 Chloride (100 - 108 mEq/L) 107 Carbon Dioxide (21 - 33 mEq/l) 28 Anion Gap (0 - 20) 11 BUN (7 - 18 mg/dL) 12 Creatinine (0.6 - 1.3 mg/dL) 1.0 Glomerular Filtr Rate (80 - 90) 62.5 L Glucose (70 - 110 mg/dL) 135 H POC Glucose (70 - 110 MG/DL) 178 H 151 H 171 H 147 H Calcium (8.0 - 10.5 mg/dL) 9.4 Magnesium (1.80 - 2.40 mg/dL) 2.03 Laboratory Tests 06/24 0515 Hematology WBC (4.5 - 11.0 x10 3/uL) 8.8 RBC (3.54 - 5.02 x10 6/uL) 3.03 L Hgb (11.0 - 15.0 g/dL) 9.2 L Hct (33.0 - 45.0 %) 29.2 L MCV (81.0 - 99.0 fL) 96.4 MCH (27.0 - 33.0 pg) 30.4 MCHC (33.0 - 37.0 g/dL) 31.5 L RDW (11.5 - 14.5 %) 15.6 H Plt Count (150 - 400 x10 3/uL) 178 MPV (7.0 - 9.0 fL) 10.4 H Neut % (Auto) (56.0 - 77.0 %) 58.0 Lymph % (Auto) (14.0 - 32.0 %) 31.7 [place] % (Auto) (4.8 - 9.0 %) 6.3 Eos % (Auto) (0.3 - 3.7 %) 2.3 Baso % (Auto) (0.0 - 2.0 %) 0.3 Neut # (Auto) (2.0 - 7.6 x10 3/uL) 5.11 Lymph # (Auto) (1.0 - 3.8 x10 3/uL) 2.79 [place] # (Auto) (0.1 - 0.8 x10 3/uL) 0.55 Eos # (Auto) (0.0 - 0.2 x10 3/uL) 0.20 Baso # (Auto) (0.0 - 0.2 x10 3/uL) 0.03 Abs Immat Gran (auto) (0.00 - 0.03 x10 3/uL) 0. 12 H Add Manual Diff NO Immature Gran % (0.0 - 2.0 %) 1.4 Nucleated RBC % (0 - 0 %) 0.9 H Nucleated RBCs # (Man) (0.0 - 0.1 x10 3/uL) 0.0 8 Treatment Prophylaxis Treatment Prophylaxis Drain(s)/tube(s): Drain(s)/tube(s): chest Diagnosis, Assessment Plan Consultants: cardiology Free Text DxA P Notes Free text DxA P notes: atrial fibrillation off amio drip converted to NSR CAD cath with multivessel CAD CTS seen Status post 4 vessel CABG today echo wnl Status post CABG Off Levophed off dopamine drip Patient extubated Has 2 chest tubes which have been removed DM on SSI prn monitor sugars closely HLD stable anemia s/p one unit hgb stable food getting stuck in the esophagus GI seen follow labs d/c home tomorrow. at 1349 RPT #:[id number] END OF REPORT 2022-06-24 13:24:00-00:00 [facility] ([facility] Cardiothoracic Surgery Prog REPORT#:[id number] REPORT STATUS: Signed DATE:06/24/22 TIME: 1324 PATIENT: KALA TURPIN UNIT #: [id number] ROOM/BED: [place] [address] : 57 AGE: 67 SEX: F ATTEND: Reji Patel MD ADM AUTHOR: Peggy Rogel MD * ALL edits or amendments must be made on the [employer] document * General Post-op: day 8 Status post: 06/16/22 CABG x 4 (LIN-LAD, SVG-Elisabet, SVG-OM, SVG-PDA) ALAA EVH (RGSV) Posterior pericardiotomy Subjective Chief complaint: Follow up CABG Resting comfortable, OOB in chair Review of Systems Constitutional: Reports: generalized weakness. Denies: chills, f atigue. Skin: Denies: diaphoresis, ecchymosis, laceration. Allergy/Immun: Denies: anaphylaxis, hives, rhinorrhea. Eyes: Denies: discharge, itching, eye pain. ENT: Denies: earache, mouth pain, throat pain, tootha spencer. Respiratory: Denies: pneumonia, SOB, wheezing. Cardiovascular: Denies: chest pain, palpitations. GI: Denies: abdominal pain, nausea, vomiting. : Denies: dysuria, flank pain. Musculoskeletal: Denies: extremity pain. Heme: Denies: petechiae. Endocrine: Denies: cold intolerance, polyphagia, weight los s. Neuro: Denies: change in LOC, dizziness, seizure, synco pe, unable to speak. All systems rev neg: except as marked Objective General VS/I O Last Documented: Result Date Time Pulse Ox 98 06/24 1100 B/P 105/50 06/24 1100 B/P Mean 0.0 06/24 1100 O2 Delivery Room air 06/24 1100 Temp 36.7 06/24 1100 Pulse 55 06/24 1100 Resp 19 06/24 1100 FiO2 21 06/23 2044 O2 Flow Rate 0 06/21 1200 24 hour I O ending at 0700: 06/24 0700 06/23 1900 Intake Total 375 Output Total Balance 375 Intake, Oral 375 Number 0 Bowel Movements Number Voids 3 Patient 101 kg Weight Weight Standing scale Measurement Method PATIENT WEIGHT: Weight (lb): 222 Weight (oz): 10.67 Weight (kg): 101.000 Dietitian Nutrition assessment The data set between the solid lines has been im ported from the dietitian's assessment. BMI Calculated: 41.9 Nutrition related diagnosis: Morbid obesity Nutrition diagnosis details: BMI 40 or more Nutrition problem: Increased nutrient needs Nutrition etiology: SURGERY Nutrition signs and symptoms: ESTIMATED NEEDS Nutrition prescription: 1. CONTINUE REGULAR DIET , ADJUST DIET PER EGD 2. PROVIDE SOFT FOODS, GLUCERNA TID. 3. MONITOR PO, WT, LABS, BM. Dietitian name: Viktoriya Lemos, DIET Assessment completed: 06/21/22 Physical Exam General appearance: alert, awake, oriented Wound/incision: Location: sternal Site condition: edges approximated, incision in tact HEENT: anicteric, mucosal membranes moist, pupil s reactive to light Neck: full range of motion, non-tender, supple/n o meningismus Cardiovascular: normal heart sounds, regular rat e rhythm Respiratory: aerating well, symmetric expansion, no distress Abdomen: soft, non-tender Genitourinary: urine Extremities: dry, moves all Musculoskeletal: full range of motion 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, oriented X 3 Skin: dry, intact Psychiatry: normal affect, normal mood Current Medications Medications: Active Meds + DC'd Last 24 Hrs Polyethylene Glycol (MIRALAX) 17 GM BID PO Amiodarone HCl (CORDARONE) 200 MG BID PO Insulin Human Lispro (HUMALOG) 0 AC HS SUBQ Insulin Human Lispro (HUMALOG) 5 UNIT AC HS SUBQ Hydralazine HCl (APRESOLINE) 10 MG Q6H PRN PRN I V Gabapentin (NEURONTIN) 300 MG BID PO Insulin Glargine (Lantus/Semglee) 15 UNIT BEDTIM E SUBQ Paroxetine HCl (PAXIL) 20 MG DAILY PO Multi-Ingredient Mouthwash/Gargle (MAGIC MOUTHWA SH) 10 ML Q4H PRN PRN PO Pantoprazole (PROTONIX) 40 MG 0600,1800 PO Ipratropium [place] (ATROVENT) 500 MCG Q2H PRN P RN INH Cyanocobalamin (Vitamin B-12 500 mcg tab) 500 MC G DAILY PO Ferrous Sulfate (FERROUS SULFATE) 325 MG DAILY P O Amiodarone HCl (AMIODARONE HCL) 450 MG ASDIR IV (CKD) Dextrose/Water (D5%W NON-DEHP) 250 ML Bisacodyl (DULCOLAX) 10 MG ONCE PRN RECTAL Magnesium Hydroxide (MILK OF MAGNESIA) 30 ML ONC E PRN PO Heparin Sodium (HEPARIN 5000 UNITS/ML) 5,000 UNI T Q12HR SUBQ Dextrose/Water (DEXTROSE 10% IN WATER) 250 ML DIR PRN IV (CKD) Insulin Human Regular (HumuLIN R) 100 UNIT ASDIR IV (CKD) Sodium Chloride (SODIUM CHLORIDE 0.9%) 99 ML Dopamine HCl/Dextrose (DOPamine 400MG/D5W 250ML) 250 ML ASDIR IV Clopidogrel Bisulfate (Plavix) 75 MG DAILY PO Polyethylene Glycol (MIRALAX) 17 GM DAILY PO (DC ) Docusate Sodium (COLACE) 100 MG BID PO Metoprolol Tartrate (LOPRESSOR) 12.5 MG Q12HR PO Sennosides (Senna Lax 8.6 MG TABLET) 17.2 MG BED TIME PO Aspirin (ASPIRIN) 81 MG DAILY PO Acetaminophen (TYLENOL) 650 MG Q4H PRN PRN PO Acetaminophen (TYLENOL) 650 MG Q4H PRN PRN RECTA L Calcium Chloride (CALCIUM CHLORIDE) 1 GM ASDIR P RN IV Dextrose/Water (DEXTROSE 10% IN WATER) 125 ML DIR PRN IV (CKD) Dextrose/Water (DEXTROSE 10% IN WATER) 250 ML DIR PRN IV (CKD) Epinephrine (ADRENALIN CHLORIDE) 4 MG ASDIR IV Dextrose/Water (DEXTROSE 5% WATER) 246 ML Glucagon (GLUCAGON) 1 MG ASDIR PRN IM Magnesium Sulfate (MAGNESIUM SULFATE 4GM/SWFI 10 0ML) 100 ML ASDIR PRN IV Magnesium Sulfate (MAGNESIUM SULFATE 2GM/SWFI 50 ML) 50 ML ASDIR PRN IV Magnesium Sulfate/Dextrose (MAGNESIUM SULFATE 1G M/D5W 100ML) 100 ML ASDIR PRN IV Nitroglycerin/Dextrose (NITROGLYCERIN 50,000MCG/ D5W 250ML) 250 ML ASDIR IV Norepinephrine Bitartrate (NOREPINEPHRINE 8 MG/N S 250 ML) 250 ML TITRATE IV Ondansetron HCl (ZOFRAN) 4 MG Q6H PRN PRN IV Potassium Chloride (KCL 20MEQ/SWFI 100ML) 100 ML ASDIR PRN IV Sodium Bicarbonate (SODIUM BICARBONATE) 50 MEQ A SDIR PRN IV Sodium Chloride (SODIUM CHLORIDE 0.9%) 1,000 ML .Q20H IV Sodium Chloride (SODIUM CHLORIDE 0.9%) 250 ML Q2 4H IV Atorvastatin Calcium (LIPITOR) 40 MG 2100 PO Melatonin (Melatonin) 6 MG BEDTIME PO Sodium Chloride (SODIUM CHLORIDE) 20 ML ASDIR IV Acetaminophen (TYLENOL) 650 MG Q4H PRN PRN PO Results Findings/Data: Laboratory Tests 06/24 06/24 06/24 06/23 06/23 1057 0729 0515 1906 1614 Chemistry Sodium (134 - 147 mEq/L) 141 Potassium (3.4 - 5.0 mEq/L) 4.6 Chloride (100 - 108 mEq/L) 107 Carbon Dioxide (21 - 33 mEq/l) 28 Anion Gap (0 - 20) 11 BUN (7 - 18 mg/dL) 12 Creatinine (0.6 - 1.3 mg/dL) 1.0 Glomerular Filtr Rate (80 - 90) 62.5 L Glucose (70 - 110 mg/dL) 135 H POC Glucose (70 - 110 MG/DL) 178 H 151 H 171 H 147 H Calcium (8.0 - 10.5 mg/dL) 9.4 Magnesium (1.80 - 2.40 mg/dL) 2.03 Laboratory Tests 06/24 0515 Hematology WBC (4.5 - 11.0 x10 3/uL) 8.8 RBC (3.54 - 5.02 x10 6/uL) 3.03 L Hgb (11.0 - 15.0 g/dL) 9.2 L Hct (33.0 - 45.0 %) 29.2 L MCV (81.0 - 99.0 fL) 96.4 MCH (27.0 - 33.0 pg) 30.4 MCHC (33.0 - 37.0 g/dL) 31.5 L RDW (11.5 - 14.5 %) 15.6 H Plt Count (150 - 400 x10 3/uL) 178 MPV (7.0 - 9.0 fL) 10.4 H Neut % (Auto) (56.0 - 77.0 %) 58.0 Lymph % (Auto) (14.0 - 32.0 %) 31.7 [place] % (Auto) (4.8 - 9.0 %) 6.3 Eos % (Auto) (0.3 - 3.7 %) 2.3 Baso % (Auto) (0.0 - 2.0 %) 0.3 Neut # (Auto) (2.0 - 7.6 x10 3/uL) 5.11 Lymph # (Auto) (1.0 - 3.8 x10 3/uL) 2.79 [place] # (Auto) (0.1 - 0.8 x10 3/uL) 0.55 Eos # (Auto) (0.0 - 0.2 x10 3/uL) 0.20 Baso # (Auto) (0.0 - 0.2 x10 3/uL) 0.03 Abs Immat Gran (auto) (0.00 - 0.03 x10 3/uL) 0. 12 H Add Manual Diff NO Immature Gran % (0.0 - 2.0 %) 1.4 Nucleated RBC % (0 - 0 %) 0.9 H Nucleated RBCs # (Man) (0.0 - 0.1 x10 3/uL) 0.0 8 Results: labs reviewed, vital signs stable, marquise milton personally rev'd, x-ray personally reviewed, current med profile rev'd Treatment Prophylaxis Treatment Prophylaxis Oxygen: room air Diagnosis, Assessment Plan Hospital course to date: Very pleasant 67-year-old female with past medic al history of stroke, hypertension, hyperlipidemia, diabetes (on insul in), obstructive sleep apnea, PAD, 2 MIs in the past statu s post PCI/stenting (on Plavix at home), NonHodgkin' s lymphoma (2006) who was at home working on her computer when she suddenly developed severe chest pain radiating to left sh oulder and jaw. Presented to the emergency room, was evaluated by car diology and underwent left heart cath. Coronary angiogram revealed severe multivessel coronary artery disease involving LAD which is totally occluded after the midporti on; diagonal OM branch with proximal stenosis 60 to 70%, left circumflex wit h 80-90% stenosis. Patient transferred to [facility] for surgical revasc ularization. PLAN Coronary angiogram images re viewed with Dr. Rogel and findings discussed with the patient. Will benefit from surgical revascul arization. Initiate preop work-up for CABG Hold Plavix. Obtain platelet response test to Pl avix Carotid ultrasound Noncontrasted chest BLE venous Doppler for vein mapping and marking Completed echocardiogram Incentive spirometer teaching Physical therapy evaluation given Dionte hill me and limited mobilization Further recommendations to follow. 06/16/22 CABG x 4 (LIN-LAD, SVG-Elisabet, SVG-OM, SVG-PDA) ALAA EVH (RGSV) Posterior pericardiotomy 06/17/22 POD 1 Patient is alert and oriented, out of bed in dulce ir Labile blood pressure. Minimal pressor requireme nts, levo at 1, wean off as tolerated Transfuse 1 unit PRBC On 2l nasal cannula, encoura ge incentive spirometer use, nebs and deep breathing NSR on nutrition coordinator, no ectopy, epicardial pa cing wires on standby Keep both chest tubes and monitor outputs Cardiac diet Glycemic control on insulin drip, monitor blood sugars, consult endocrinology Bowel regimen protocol PT/OT DVT prophylaxis with SCDs and SQ heparin, GI pro phylaxis with PPI Monitor patient in CVICU Patient seen with Dr. Rogel, plan of care disc ussed with ICU team 06/18 No major events overnight, alert and oriented Wean O2 as tolerated. Encourage I-S On dopamine drip at 3 for renal perfusion; pt smith d low UOP yesterday Off levophed Cr 1.0 from 1.2. Strict I's and O's Chest tubes with minimal output; we will discont inue this morning Bowel regimen Glycemic control with insulin drip. Endocrinolog y following DVT prophylaxis with heparin subq Keep in CVICU today Pt seen and plan reviewed with Dr Rogel 06/19 POD 3 Patient in stable condition. Alert, awake, and o riented, oob in chair CXR and labs reviewed-stable Patient went into afib rvr- recieved amio bolus x 2 and amio drip Rebolus amio this am, Wean dopamine off and micah tor UOP and BP Monitor renal function, Cr 0.7 Strict I Os Cardiac diet, nutritional supplements SSI-glycemic control DVT ppx- SCDs and heparin SQ Continue supportive care in CVICU Rehab consulted Patient seen with Dr. Rogel, plan of care disc ussed with ICU team. 06/20/22 POD 4 Patient recovering well, alert, awake, and orien radha, no distress noted Breathing comfortable on ashlee m air, O2 sats 96%, Encourage I-S and deep breathing CXR shows small right pleural effusion, and stab le pulmonary opacities Remains a-fib rate controlled, on IV amio, rebol us amio today Discontinue staples and central line Diuresis with lasix 20 IV x 1 Strict I Os, daily weights GI consulted for patient fee ling food gets stuck in the middle of the esophagus, possible EGD Rehab following DVT prophylaxis with subq heparin and SCDS Monitor patient in CVICU Patient seen with Dr. Rogel, plan of care disc ussed with ICU team. 06/21/22 POD 5 Patient alert, awake, and oriented, no distress noted Remains in rate controlled a-fib, plan for cardi oversion today- Successful cardioversion into Sinus rhythm Keep O2 sats > 92%, on room air Continue pulmonary toileting, nebs, I-S use Discontinue central line Labs and chest x-ray reviewed- stable Cardiac diet, bowel regimen protocol- give suppo sitory today Pain controlled Daily weights, strict I Os DVT prophylaxis with SCDs and heparin SQ, GI pro phylaxis with PPI Rehab following Continue therapy with PT/OT Patient seen with Dr. Rogel, plan of care disc ussed with multidisciplinary team 06/22 POD 6 Patient alert, awake, and oriented, no distress noted Patient cardioverted to sinus rhtyhm with cardio version. on amiodarone PO. Keep O2 sats > 93%, on room air Continue pulmonary toileting, nebs, I-S use Discontinue central line Labs and chest x-ray reviewed- stable Cardiac diet, bowel regimen protocol- give suppo sitory today BM with enema this am. Daily weights, strict I Os DVT prophylaxis with SCDs and heparin SQ, GI pro phylaxis with PPI Gi following- consider outpaitnet workup. Rehab following- Patient family want to take her home will order home health. Continue therapy with PT/OT Patient seen with Dr. Rogel, plan of care disc ussed with multidisciplinary team 06/23/22 POD 7 Patient recovering well, alert, awake and orient ed Breathing comfotable on room air Encourage deep breathing and incentive spiromete r use CXR and labs reviewed- stable Tolerating diet, + BM EGD to be done as outpatient- GI following Daily weights and strict I Os DVT prophylaxis with SCDs and heparin SQ, GI pro phylaxis with PPI Rehab following- Patient family want to take her home residential program manager consulted for home health services Continue therapy with PT/OT Transfer to intermediate care unit Patient seen with Dr. Rogel, plan of care disc ussed with multidisciplinary team 06/24/22 POD 8 Patient doing well, no distress labs and CXR reviewed On room air I-S use encouraged DC'd pacing wires, obtain echo to r/o pericardia l effusion BLE venous dopplers to r/o DVT Cardiac diet Bowel regimen Possible discharge home tomorrow with home healt support Consultants: cardiology Plan discussed with: patient, nurse at 1230 RPT #:[id number] END OF REPORT 2022-06-24 07:03:00-00:00 [facility] ([facility]) Rehab Progress Note REPORT#:[id number] REPORT STATUS: Signed DATE:06/24/22 TIME: 0703 PATIENT: KALA TURPIN UNIT #: [id number] ROOM/BED: [place] [id number] : 57 AGE: 67 SEX: F ATTEND: Reji Patel MD ADM AUTHOR: Kalen Castellanos * ALL edits or amendments must be made on the [employer]/computer document * Subjective Chief complaint: rehab follow-up Out of CVICU Sitting up in chair States had a rough night. Had anxiety attack denied pain and sob Denies SMITH/N/V/D/CP 14 systems reviewed and neg. except that above. Objective General VS: Vital Signs: Date Time Temp Pulse Resp B/P B/P Pulse O2 O2 F low FiO2 Mean Ox Delivery Rate 06/24 0533 97.7 55 13 134/79 97.3 96 Room air 06/23 2326 98.1 60 13 151/78 102.5 100 Room air 06/23 2044 98 Room air 06/23 1942 98 Room air 21 06/23 1906 98.1 59 13 144/64 0.0 97 Room air 06/23 1905 59 20 144/64 96 06/23 1839 134/62 99 06/23 1613 98.1 58 16 94/58 69.8 99 06/23 1215 64 139/61 06/23 1215 21 96 06/23 1200 66 143/65 06/23 1200 20 97 06/23 1042 98.2 66 18 119/55 0.0 96 06/23 0947 69 50 97 06/23 0900 79 14 149/66 95 96 06/23 0834 97 Room air 21 06/23 0801 64 23 145/63 91 98 06/23 0800 65 19 97 06/23 0730 97.9 PATIENT WEIGHT: Weight (lb): 222 Weight (oz): 10.67 Weight (kg): 101.000 Medications: Active Meds + DC'd Last 24 Hrs Polyethylene Glycol (MIRALAX) 17 GM BID PO Amiodarone HCl (CORDARONE) 200 MG BID PO Insulin Human Lispro (HUMALOG) 0 AC HS SUBQ Insulin Human Lispro (HUMALOG) 5 UNIT AC HS SUBQ Hydralazine HCl (APRESOLINE) 10 MG Q6H PRN PRN I V Gabapentin (NEURONTIN) 300 MG BID PO Insulin Glargine (Lantus/Semglee) 15 UNIT BEDTIM E SUBQ Paroxetine HCl (PAXIL) 20 MG DAILY PO Multi-Ingredient Mouthwash/Gargle (MAGIC MOUTHWA SH) 10 ML Q4H PRN PRN PO Pantoprazole (PROTONIX) 40 MG 0600,1800 PO Ipratropium [place] (ATROVENT) 500 MCG Q2H PRN P RN INH Cyanocobalamin (Vitamin B-12 500 mcg tab) 500 MC G DAILY PO Ferrous Sulfate (FERROUS SULFATE) 325 MG DAILY P O Amiodarone HCl (AMIODARONE HCL) 450 MG ASDIR IV (CKD) Dextrose/Water (D5%W NON-DEHP) 250 ML Bisacodyl (DULCOLAX) 10 MG ONCE PRN RECTAL Magnesium Hydroxide (MILK OF MAGNESIA) 30 ML ONC E PRN PO Heparin Sodium (HEPARIN 5000 UNITS/ML) 5,000 UNI T Q12HR SUBQ Dextrose/Water (DEXTROSE 10% IN WATER) 250 ML DIR PRN IV (CKD) Insulin Human Regular (HumuLIN R) 100 UNIT ASDIR IV (CKD) Sodium Chloride (SODIUM CHLORIDE 0.9%) 99 ML Dopamine HCl/Dextrose (DOPamine 400MG/D5W 250ML) 250 ML ASDIR IV Clopidogrel Bisulfate (Plavix) 75 MG DAILY PO Polyethylene Glycol (MIRALAX) 17 GM DAILY PO (DC ) Docusate Sodium (COLACE) 100 MG BID PO Metoprolol Tartrate (LOPRESSOR) 12.5 MG Q12HR PO Sennosides (Senna Lax 8.6 MG TABLET) 17.2 MG BED TIME PO Aspirin (ASPIRIN) 81 MG DAILY PO Acetaminophen (TYLENOL) 650 MG Q4H PRN PRN PO Acetaminophen (TYLENOL) 650 MG Q4H PRN PRN RECTA L Calcium Chloride (CALCIUM CHLORIDE) 1 GM ASDIR P RN IV Dextrose/Water (DEXTROSE 10% IN WATER) 125 ML DIR PRN IV (CKD) Dextrose/Water (DEXTROSE 10% IN WATER) 250 ML DIR PRN IV (CKD) Epinephrine (ADRENALIN CHLORIDE) 4 MG ASDIR IV Dextrose/Water (DEXTROSE 5% WATER) 246 ML Glucagon (GLUCAGON) 1 MG ASDIR PRN IM Magnesium Sulfate (MAGNESIUM SULFATE 4GM/SWFI 10 0ML) 100 ML ASDIR PRN IV Magnesium Sulfate (MAGNESIUM SULFATE 2GM/SWFI 50 ML) 50 ML ASDIR PRN IV Magnesium Sulfate/Dextrose (MAGNESIUM SULFATE 1G M/D5W 100ML) 100 ML ASDIR PRN IV Nitroglycerin/Dextrose (NITROGLYCERIN 50,000MCG/ D5W 250ML) 250 ML ASDIR IV Norepinephrine Bitartrate (NOREPINEPHRINE 8 MG/N S 250 ML) 250 ML TITRATE IV Ondansetron HCl (ZOFRAN) 4 MG Q6H PRN PRN IV Potassium Chloride (KCL 20MEQ/SWFI 100ML) 100 ML ASDIR PRN IV Sodium Bicarbonate (SODIUM BICARBONATE) 50 MEQ A SDIR PRN IV Sodium Chloride (SODIUM CHLORIDE 0.9%) 1,000 ML .Q20H IV Sodium Chloride (SODIUM CHLORIDE 0.9%) 250 ML Q2 4H IV Atorvastatin Calcium (LIPITOR) 40 MG 2100 PO Melatonin (Melatonin) 6 MG BEDTIME PO Sodium Chloride (SODIUM CHLORIDE) 20 ML ASDIR IV Acetaminophen (TYLENOL) 650 MG Q4H PRN PRN PO Functional Progress Functional progress: STERNAL PRECATION Ambulation Distance: 20 FT X 1 30 FT X 1 Progression: Forward Assistance Level: Supervision or Set-up Gait Deviations: SHORT STEPS AMPA Mobility: No Document Pain/Education: No Advanced Progression: No Effects of Treatment: Tolerance increased Cardio tolerance improved Post TX Precautions: In Chair Review Plan of Care: Yes PT charges: Gait Training [id number] Gait Cmt: WORKED ON TRANSFERS, BED MOBILITY, GA IT AND WC MOBILTIY WC MOD I 50 FT X 2 TO RECLINER AFTER GAIT If this is the patient's last treatment, this e ntry serves as the discharge summary: Y Start Time: 1500 Stop Time: 1525 Treatment Time : ( minutes) 0:25 Completed by: Torrey Lal BED MOBILITY: Yes Rolling Right/Left: Modified Butler Supine to Sit: Minimal Assistance Sit to Supine: Modified Butler TRANSFERS: Yes Bed to/from chair: Supervision or Set-up Sit to/from stand: Supervision or Set-up Physical Exam General appearance: alert, awake Psych: alert, oriented x 3 HEENT: anicteric, mucosal membranes moist Neck: supple, no JVD Respiratory: aerating well, clear bilaterally Abdomen: bowel sounds present, non-distended, so ft, non-tender Skin: dry, intact, no rash Musculoskeletal - general: Musculoskeletal - general: swelling (BLE) 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, oriented X 3, CNII-XII intact, normal speech, no motor deficits, no sensory deficits Results Findings/Data: Laboratory Tests: 06/23 06/23 06/23 06/23 1906 1614 1044 0801 Chemistry POC Glucose (70 - 110 MG/DL) 171 H 147 H 169 H 139 H Diagnosis, Assessment Plan Free Text A P: Multivessel CAD Status post CABG x4 Impaired mobility and gait Generalized weakness Postoperative anemia requiring transfusion Diabetes Hyperlipidemia Orthostatic hypotension Plan: Continue PT/OT Out of bed to chair Work on strength, bed mobility, transfers, gait Sternal precautions Increase endurance Fall precautions Monitor p.o. 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 S/P cardioversion Improving with mobility and strength Pt and family want to go home with HH/PT when me dically cleared. Tentatively planning discharge for Sunday Total time was 33minutes > 50% with patient perf orming physical examination, discussing plan of care, goals, therapies, progr ess, medications, labs, discharge planning. All questions answered Rehab attestation: . Electronically Signed by Kalen Castellanos on 0 06/24/22 at 2124 RPT #:[id number] END OF REPORT 2022-06-23 18:59:00-00:00 [facility] Hospitalist Progress Note REPORT#:[id number] REPORT STATUS: Signed DATE:06/23/22 TIME: 1858 PATIENT: KALA TURPIN UNIT #: [id number] ROOM/BED: 3343-1 : 57 AGE: 67 SEX: F ATTEND: Reij Patel MD ADM AUTHOR: Bang Patel MD * ALL edits or amendments must be made on the el [employer]/computer document * Subjective Chief complaint: doing well post op. NSR. No complaints. Ambulati ng in the room. Doing well with physical therapy. Doing well with transfers by herself. 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 Presented to the emergency room, was evaluated by cardiology and underwent left h eart cath. Coronary angiogram revealed severe multivessel coronary artery dise ase involving LAD which is totally occluded after the m idportion; diagonal OM branch with proximal stenosis 60 to 70%, left 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 Patient transferred to [facility] for surgical revascularization. Objective General VS/I O: Vital Signs: Date Time Temp Pulse Resp B/P B/P Pulse O2 O2 F low FiO2 Mean Ox Delivery Rate 06/23 1613 98.1 58 16 94/58 69.8 99 06/23 1215 64 139/61 06/23 1215 21 96 06/23 1200 66 143/65 06/23 1200 20 97 06/23 1042 98.2 66 18 119/55 0.0 96 06/23 0947 69 50 97 06/23 0900 79 14 149/66 95 96 06/23 0834 97 Room air 21 06/23 0801 64 23 145/63 91 98 06/23 0800 65 19 97 06/23 0730 97.9 06/23 0642 59 17 96 06/23 0625 60 14 141/65 94 96 06/23 0609 74 96 06/23 0600 77 21 97 06/23 0500 62 21 142/63 90 95 06/23 0401 76 17 138/63 90 96 06/23 0400 77 18 96 06/23 0301 71 15 146/66 95 99 06/23 0300 75 16 100 06/23 0251 62 19 96 06/23 0245 62 96 06/23 0200 62 19 153/72 103 96 06/23 0145 63 18 96 06/23 0101 61 19 142/63 90 96 06/23 0100 61 19 96 06/23 0045 62 17 97 06/23 0003 68 18 174/73 105 98 06/23 0000 72 44 06/22 2345 64 17 98 06/22 2301 59 18 143/98 115 97 06/22 2300 59 18 97 06/225 61 16 98 06/220 63 21 167/74 106 97 06/22 2145 60 22 99 06/22 2122 65 151/68 98 97 06/22 2099 63 16 96 06/22 2044 66 17 97 06/23 2003 97 Room air 06/23 1999 98.1 06/22 1945 63 24 hour I O ending at 0700: 06/23 0700 06/22 1900 Intake Total 320.00 Output Total 1350 1500 Balance -1030.00 -1500 Intake, IV 80.00 Intake, Oral 240 Number 1 Bowel Movements Number Voids 2 Output, Urine 1350 1500 Patient 100.7 kg Weight Weight Standing scale Measurement Method PATIENT WEIGHT: Weight (lb): 222 Weight (oz): 0.09 Weight (kg): 100.700 Physical Exam General appearance: alert, awake, oriented Head/Eyes: atraumatic, clear cornea, EOMI, PERRL A Neck: supple/no meningismus Cardiovascular: normal heart sounds, reg ular rate rhythm, no gallop, no murmur , no rub Respiratory: aerating well, clear to auscultatio n Abdomen: non-tender, normal bowel sounds, soft, no distention Extremities: no clubbing, no cyanosis, no edema Musculoskeletal: normal inspection, painless ran ge of motion 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, oriented X 3, CNII-XII intact Skin: dry, intact Results Findings/Data: Laboratory Tests 06/23 06/23 06/23 06/23 1614 1044 0801 0250 Chemistry Sodium (134 - 147 mEq/L) 144 Potassium (3.4 - 5.0 mEq/L) 4.0 Chloride (100 - 108 mEq/L) 112 H Carbon Dioxide (21 - 33 mEq/l) 30 Anion Gap (0 - 20) 6 BUN (7 - 18 mg/dL) 14 Creatinine (0.6 - 1.3 mg/dL) 0.8 Glomerular Filtr Rate (80 - 90) 81.7 Glucose (70 - 110 mg/dL) 120 H POC Glucose (70 - 110 MG/DL) 147 H 169 H 139 H Calcium (8.0 - 10.5 mg/dL) 9.2 Magnesium (1.80 - 2.40 mg/dL) 2.10 Laboratory Tests 03/30 03/30 2127 2127 Coagulation INR (0.8 - 1.2) 1.3 H PTT (Pender) (25.0 - 39.5 Seconds) 31.9 PT Patient/Control Mix (9.3 - 12.9 SECONDS) 14. 2 H Laboratory Tests 06/23 06/22 0250 2127 Hematology WBC (4.5 - 11.0 x10 3/uL) 8.7 8.8 RBC (3.54 - 5.02 x10 6/uL) 2.86 L 2.81 L Hgb (11.0 - 15.0 g/dL) 8.8 L 8.6 L Hct (33.0 - 45.0 %) 25.7 L 25.4 L MCV (81.0 - 99.0 fL) 89.9 90.4 MCH (27.0 - 33.0 pg) 30.8 30.6 MCHC (33.0 - 37.0 g/dL) 34.2 33.9 RDW (11.5 - 14.5 %) 14.6 H 14.5 Plt Count (150 - 400 x10 3/uL) 218 229 MPV (7.0 - 9.0 fL) 9.7 H 10.0 H Neut % (Auto) (56.0 - 77.0 %) 61.5 61.5 Lymph % (Auto) (14.0 - 32.0 %) 27.4 28.2 [place] % (Auto) (4.8 - 9.0 %) 6.7 6.2 Eos % (Auto) (0.3 - 3.7 %) 2.8 2.3 Baso % (Auto) (0.0 - 2.0 %) 0.1 0.2 Neut # (Auto) (2.0 - 7.6 x10 3/uL) 5.36 5.38 Lymph # (Auto) (1.0 - 3.8 x10 3/uL) 2.39 2.47 [place] # (Auto) (0.1 - 0.8 x10 3/uL) 0.58 0.54 Eos # (Auto) (0.0 - 0.2 x10 3/uL) 0.24 H 0.20 Baso # (Auto) (0.0 - 0.2 x10 3/uL) 0.01 0.02 Abs Immat Gran (auto) (0.00 - 0.03 x10 3/uL) 0 .13 H 0.14 H Add Manual Diff NO NO Immature Gran % (0.0 - 2.0 %) 1.5 1.6 Nucleated RBC % (0 - 0 %) 0.8 H 1.0 H Nucleated RBCs # (Man) (0.0 - 0.1 x10 3/uL) 0.0 7 0.09 Radiology data: Recent Impressions: RADIOLOGY - XR CHEST 1 V 06/23 0722 Report Impression - Status: SIGNED Entered: 06/23/2022 09 IMPRESSION: Shadowing in the left lower hemithorax likely re presenting small left pleural effusion. The this is probably unch anged from previous. Impression By: Dale Corrigan Treatment Prophylaxis Treatment Prophylaxis Drain(s)/tube(s): Drain(s)/tube(s): chest Diagnosis, Assessment Plan Consultants: cardiology Free Text DxA P Notes Free text DxA P notes: atrial fibrillation off amio drip converted to NSR CAD cath with multivessel CAD CTS seen Status post 4 vessel CABG today echo wnl Status post CABG Off Levophed off dopamine drip Patient extubated Has 2 chest tubes which have been removed DM on SSI prn monitor sugars closely HLD stable anemia s/p one unit hgb stable food getting stuck in the esophagus GI seen follow labs d/c home when okay with CV surgery at 1901 RPT #:[id number] END OF REPORT 2022-06-23 12:17:00-00:00 [facility] Gastroenterology Progress Note REPORT#:[id number] REPORT STATUS: Signed DATE:06/23/22 TIME: 1217 PATIENT: KALA TURPIN UNIT #: [id number] ROOM/BED: 3343-1 : 57 AGE: 67 SEX: F ATTEND: Reji Patel MD ADM AUTHOR: Marivel Covington PA * ALL edits or amendments must be made on the el [employer]/computer document * Marivel Covington 06/23/22 1217: Subjective Patient reports: Yes: bowel movement, passing gas. No: ab dominal pain, black stools, difficulty swallowing, nausea, rectal bleeding, vomiting. Review of Systems Constitutional: Denies: chills, fever. Respiratory: Denies: SOB. Cardiovascular: Denies: chest pain. Neuro: Denies: headache. Objective General VS/I O: Last Documented: Result Date Time Pulse Ox 99 06/23 1613 B/P 94/58 06/23 1613 B/P Mean 69.8 06/23 1613 Temp 36.7 06/23 1613 Pulse 58 06/23 1613 Resp 16 06/23 161 FiO2 21 06/23 0834 O2 Delivery Room air 06/23 0834 O2 Flow Rate 0 06/21 1200 24 hour I O ending at 0700: 06/23 0700 06/22 1900 Intake Total 320.00 Output Total 1350 1500 Balance -1030.00 -1500 Intake, IV 80.00 Intake, Oral 240 Number 1 Bowel Movements Number Voids 2 Output, Urine 1350 1500 Patient 100.7 kg Weight Weight Standing scale Measurement Method PATIENT WEIGHT: Weight (lb): 222 Weight (oz): 0.09 Weight (kg): 100.700 Medications: Active Meds + DC'd Last 24 Hrs Polyethylene Glycol (MIRALAX) 17 GM BID PO (UNVr ) Amiodarone HCl (CORDARONE) 200 MG BID PO Insulin Human Lispro (HUMALOG) 0 AC HS SUBQ Insulin Human Lispro (HUMALOG) 5 UNIT AC HS SUBQ Hydralazine HCl (APRESOLINE) 10 MG Q6H PRN PRN I V Gabapentin (NEURONTIN) 300 MG BID PO Insulin Glargine (Lantus/Semglee) 15 UNIT BEDTIM E SUBQ Paroxetine HCl (PAXIL) 20 MG DAILY PO Multi-Ingredient Mouthwash/Gargle (MAGIC MOUTHWA SH) 10 ML Q4H PRN PRN PO Pantoprazole (PROTONIX) 40 MG 0600,1800 PO Ipratropium [place] (ATROVENT) 500 MCG Q2H PRN P RN INH Cyanocobalamin (Vitamin B-12 500 mcg tab) 500 MC G DAILY PO Ferrous Sulfate (FERROUS SULFATE) 325 MG DAILY P O Amiodarone HCl (AMIODARONE HCL) 450 MG ASDIR IV (CKD) Dextrose/Water (D5%W NON-DEHP) 250 ML Bisacodyl (DULCOLAX) 10 MG ONCE PRN RECTAL Magnesium Hydroxide (MILK OF MAGNESIA) 30 ML ONC E PRN PO Heparin Sodium (HEPARIN 5000 UNITS/ML) 5,000 UNI T Q12HR SUBQ Dextrose/Water (DEXTROSE 10% IN WATER) 250 ML DIR PRN IV (CKD) Insulin Human Regular (HumuLIN R) 100 UNIT ASDIR IV (CKD) Sodium Chloride (SODIUM CHLORIDE 0.9%) 99 ML Dopamine HCl/Dextrose (DOPamine 400MG/D5W 250ML) 250 ML ASDIR IV Clopidogrel Bisulfate (Plavix) 75 MG DAILY PO Polyethylene Glycol (MIRALAX) 17 GM DAILY PO (DC r) Docusate Sodium (COLACE) 100 MG BID PO Metoprolol Tartrate (LOPRESSOR) 12.5 MG Q12HR PO Sennosides (Senna Lax 8.6 MG TABLET) 17.2 MG BED TIME PO Aspirin (ASPIRIN) 81 MG DAILY PO Acetaminophen (TYLENOL) 650 MG Q4H PRN PRN PO Acetaminophen (TYLENOL) 650 MG Q4H PRN PRN RECTA L Calcium Chloride (CALCIUM CHLORIDE) 1 GM ASDIR P RN IV Dextrose/Water (DEXTROSE 10% IN WATER) 125 ML DIR PRN IV (CKD) Dextrose/Water (DEXTROSE 10% IN WATER) 250 ML DIR PRN IV (CKD) Epinephrine (ADRENALIN CHLORIDE) 4 MG ASDIR IV Dextrose/Water (DEXTROSE 5% WATER) 246 ML Glucagon (GLUCAGON) 1 MG ASDIR PRN IM Magnesium Sulfate (MAGNESIUM SULFATE 4GM/SWFI 10 0ML) 100 ML ASDIR PRN IV Magnesium Sulfate (MAGNESIUM SULFATE 2GM/SWFI 50 ML) 50 ML ASDIR PRN IV Magnesium Sulfate/Dextrose (MAGNESIUM SULFATE 1G M/D5W 100ML) 100 ML ASDIR PRN IV Nitroglycerin/Dextrose (NITROGLYCERIN 50,000MCG/ D5W 250ML) 250 ML ASDIR IV Norepinephrine Bitartrate (NOREPINEPHRINE 8 MG/N S 250 ML) 250 ML TITRATE IV Ondansetron HCl (ZOFRAN) 4 MG Q6H PRN PRN IV Potassium Chloride (KCL 20MEQ/SWFI 100ML) 100 ML ASDIR PRN IV Sodium Bicarbonate (SODIUM BICARBONATE) 50 MEQ A SDIR PRN IV Sodium Chloride (SODIUM CHLORIDE 0.9%) 1,000 ML .Q20H IV Sodium Chloride (SODIUM CHLORIDE 0.9%) 250 ML Q2 4H IV Atorvastatin Calcium (LIPITOR) 40 MG 2100 PO Melatonin (Melatonin) 6 MG BEDTIME PO Sodium Chloride (SODIUM CHLORIDE) 20 ML ASDIR IV Acetaminophen (TYLENOL) 650 MG Q4H PRN PRN PO Dietitian nutrition assessment The data set between the solid lines has been im ported from the dietitian's assessment. BMI Calculated: 41.9 Nutrition related diagnosis: Morbid obesity Nutrition diagnosis details: BMI 40 or more Nutrition problem: Increased nutrient needs Nutrition etiology: SURGERY Nutrition signs and symptoms: ESTIMATED NEEDS Nutrition prescription: 1. CONTINUE REGULAR DIET , ADJUST DIET PER EGD 2. PROVIDE SOFT FOODS, GLUCERNA TID. 3. MONITOR PO, WT, LABS, BM. Dietitian name: Viktoriya Lemos, DIET Assessment completed: 06/21/22 Physical Exam General appearance: alert, awake, oriented HEENT: atraumatic, EOMI, PERRL Neck: no JVD Cardiovascular: irregular rhythm, normal capilla ry refill, normal S1/S2 Respiratory: equal breath sounds, symmetric expa nsion, no distress Abdomen: non-tender, normal bowel sounds , soft, no distention, no guarding, no hernia Extremities: moves all, no edema Musculoskeletal: normal inspection 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, oriented X 3, normal speech Skin: dry, intact, normal color Psychiatry: normal affect, normal judgment/insig ht, normal mood Results Findings/Data: Laboratory Tests 06/23/22 0250: [Embedded Image Not Available] 06/22/227: [Embedded Image Not Available] Laboratory Tests 06/23 06/23 06/23 06/23 1614 1044 0801 0250 Chemistry Sodium (134 - 147 mEq/L) 144 Potassium (3.4 - 5.0 mEq/L) 4.0 Chloride (100 - 108 mEq/L) 112 H Carbon Dioxide (21 - 33 mEq/l) 30 Anion Gap (0 - 20) 6 BUN (7 - 18 mg/dL) 14 Creatinine (0.6 - 1.3 mg/dL) 0.8 Glomerular Filtr Rate (80 - 90) 81.7 Glucose (70 - 110 mg/dL) 120 H POC Glucose (70 - 110 MG/DL) 147 H 169 H 139 H Calcium (8.0 - 10.5 mg/dL) 9.2 Magnesium (1.80 - 2.40 mg/dL) 2.10 Laboratory Tests 06/227 Coagulation INR (0.8 - 1.2) 1.3 H PTT (Pender) (25.0 - 39.5 Seconds) 31.9 PT Patient/Control Mix (9.3 - 12.9 SECONDS) 14. 2 H Laboratory Tests 06/23 Hematology WBC (4.5 - 11.0 x10 3/uL) 8.7 8.8 RBC (3.54 - 5.02 x10 6/uL) 2.86 L 2.81 L Hgb (11.0 - 15.0 g/dL) 8.8 L 8.6 L Hct (33.0 - 45.0 %) 25.7 L 25.4 L MCV (81.0 - 99.0 fL) 89.9 90.4 MCH (27.0 - 33.0 pg) 30.8 30.6 MCHC (33.0 - 37.0 g/dL) 34.2 33.9 RDW (11.5 - 14.5 %) 14.6 H 14.5 Plt Count (150 - 400 x10 3/uL) 218 229 MPV (7.0 - 9.0 fL) 9.7 H 10.0 H Neut % (Auto) (56.0 - 77.0 %) 61.5 61.5 Lymph % (Auto) (14.0 - 32.0 %) 27.4 28.2 [place] % (Auto) (4.8 - 9.0 %) 6.7 6.2 Eos % (Auto) (0.3 - 3.7 %) 2.8 2.3 Baso % (Auto) (0.0 - 2.0 %) 0.1 0.2 Neut # (Auto) (2.0 - 7.6 x10 3/uL) 5.36 5.38 Lymph # (Auto) (1.0 - 3.8 x10 3/uL) 2.39 2.47 [place] # (Auto) (0.1 - 0.8 x10 3/uL) 0.58 0.54 Eos # (Auto) (0.0 - 0.2 x10 3/uL) 0.24 H 0.20 Baso # (Auto) (0.0 - 0.2 x10 3/uL) 0.01 0.02 Abs Immat Gran (auto) (0.00 - 0.03 x10 3/uL) 0. 13 H 0.14 H Add Manual Diff NO NO Immature Gran % (0.0 - 2.0 %) 1.5 1.6 Nucleated RBC % (0 - 0 %) 0.8 H 1.0 H Nucleated RBCs # (Man) (0.0 - 0.1 x10 3/uL) 0.0 7 0.09 Radiology Data: Recent Impressions: RADIOLOGY - XR CHEST 1 V 06/23 0722 Report Impression - Status: SIGNED Entered: 06/23/2022 9155 IMPRESSION: Shadowing in the left lower hemithorax likely re presenting small left pleural effusion. The this is probably unch anged from previous. Impression By: TracyABMendoza - Dale Arias Results: labs reviewed, vital signs reviewed, x- ray personally reviewed Treatment Prophylaxis Treatment Prophylaxis Drain(s)/tube(s): Drain(s)/tube(s): chest Diagnosis, Assessment Plan Problem List/A P: 1. Dysphagia 2. Globus sensation 3. Dyspepsia 4. Constipation 5. Coronary artery disease 6. Afib 7. Anemia 8. S/P CABG x 4 Free Text A P: Recommendations: 1. Continue with current diet 2. Constipation, continue with current b owel regimen, will increase miralax to BID 3. Aspiration precuations 4. Continue with PPI therapy 5. Serial abdominal exams and will consider abdo meek x rays prn 6. Trend h/h and transfuse prn 7. 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 Patient would like to defer EGD for now and c onsider outpatient 9. Further recommendations may follow Consultants: cardiology Attestations Attestation needed: supervising physician Catrachito Shirley 06/24/22 0055: Attestations Physician Attestation Agree w/findings plan: Agree with the findings and plan as documented TASHIA Zazueta. at 1852 Electronically Signed by Catrachito Shirley MD on 04/17 at 0056 RPT #:[id number] END OF REPORT 2022-06-23 10:25:00-00:00 [facility] ([facility]) Cardiothoracic Surgery Prog REPORT#:[id number] REPORT STATUS: Signed DATE:06/23/22 TIME: 1025 PATIENT: KALA TURPIN UNIT #: [id number] ROOM/BED: [place] [id number] : 57 AGE: 67 SEX: F ATTEND: Reji Patel MD ADM AUTHOR: [facility] * ALL edits or amendments must be made on the el [employer]/computer document * General Post-op: day 7 Status post: 06/16/22 CABG x 4 (LIN-LAD, SVG-Elisabet, SVG-OM, SVG-PDA) ALAA EVH (RGSV) Posterior pericardiotomy Subjective Chief complaint: Follow up CABG Resting comfortable, OOB in chair Review of Systems Constitutional: Reports: generalized weakness. Denies: chills, f atigue. Skin: Denies: diaphoresis, ecchymosis, laceration. Allergy/Immun: Denies: anaphylaxis, hives, rhinorrhea. Eyes: Denies: discharge, itching, eye pain. ENT: Denies: earache, mouth pain, throat pain, tootha spencer. Respiratory: Denies: pneumonia, SOB, wheezing. Cardiovascular: Denies: chest pain, palpitations. GI: Denies: abdominal pain, nausea, vomiting. : Denies: dysuria, flank pain. Musculoskeletal: Denies: extremity pain. Heme: Denies: petechiae. Endocrine: Denies: cold intolerance, polyphagia, weight los s. Neuro: Denies: change in LOC, dizziness, seizure, synco pe, unable to speak. All systems rev neg: except as marked Objective General VS/I O Last Documented: Result Date Time Pulse Ox 97 06/23 946 Pulse 69 06/23 0847 Resp 50 06/23 946 B/P 149/66 06/23 0900 B/P Mean 95 06/23 09 Temp 97.9 06/23 0730 O2 Delivery Room air 06/23 2003 FiO2 21 06/22 1602 O2 Flow Rate 0 06/21 1200 24 hour I O ending at 0700: 06/23 0700 06/22 1900 Intake Total 320.00 Output Total 1350 1500 Balance -1030.00 -1500 Intake, IV 80.00 Intake, Oral 240 Number 1 Bowel Movements Number Voids 2 Output, Urine 1350 1500 Patient 100.7 kg Weight Weight Standing scale Measurement Method PATIENT WEIGHT: Weight (lb): 222 Weight (oz): 0.09 Weight (kg): 100.700 Dietitian Nutrition assessment The data set between the solid lines has been im ported from the dietitian's assessment. BMI Calculated: 41.9 Nutrition related diagnosis: Morbid obesity Nutrition diagnosis details: BMI 40 or more Nutrition problem: Increased nutrient needs Nutrition etiology: SURGERY Nutrition signs and symptoms: ESTIMATED NEEDS Nutrition prescription: 1. CONTINUE REGULAR DIET , ADJUST DIET PER EGD 2. PROVIDE SOFT FOODS, GLUCERNA TID. 3. MONITOR PO, WT, LABS, BM. Dietitian name: Viktoriya Lemos, DIET Assessment completed: 06/21/22 Physical Exam General appearance: alert, awake, oriented Wound/incision: Location: sternal Site condition: edges approximated, incision in tact HEENT: anicteric, mucosal membranes moist, pupil s reactive to light Neck: full range of motion, non-tender, supple/n o meningismus Cardiovascular: normal heart sounds, regular rat e rhythm Respiratory: decreased breath sounds, aerating w ell, symmetric expansion, no distress Abdomen: soft, non-tender Genitourinary: urine Extremities: dry, moves all Musculoskeletal: full range of motion 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, oriented X 3 Skin: dry, intact Psychiatry: normal affect, normal mood Current Medications Medications: Active Meds + DC'd Last 24 Hrs Amiodarone HCl (CORDARONE) 200 MG BID PO Insulin Human Lispro (HUMALOG) 0 AC HS SUBQ Insulin Human Lispro (HUMALOG) 5 UNIT AC HS SUBQ Hydralazine HCl (APRESOLINE) 10 MG Q6H PRN PRN I V Gabapentin (NEURONTIN) 300 MG BID PO Insulin Glargine (Lantus/Semglee) 15 UNIT BEDTIM E SUBQ Paroxetine HCl (PAXIL) 20 MG DAILY PO Multi-Ingredient Mouthwash/Gargle (MAGIC MOUTHWA SH) 10 ML Q4H PRN PRN PO Amiodarone HCl (CORDARONE) 400 MG BID PO (DC) Pantoprazole (PROTONIX) 40 MG 0600,1800 PO Ipratropium [place] (ATROVENT) 500 MCG Q2H PRN P RN INH Cyanocobalamin (Vitamin B-12 500 mcg tab) 500 MC G DAILY PO Ferrous Sulfate (FERROUS SULFATE) 325 MG DAILY P O Amiodarone HCl (AMIODARONE HCL) 450 MG ASDIR IV (CKD) Dextrose/Water (D5%W NON-DEHP) 250 ML Bisacodyl (DULCOLAX) 10 MG ONCE PRN RECTAL Magnesium Hydroxide (MILK OF MAGNESIA) 30 ML ONC E PRN PO Heparin Sodium (HEPARIN 5000 UNITS/ML) 5,000 UNI T Q12HR SUBQ Dextrose/Water (DEXTROSE 10% IN WATER) 250 ML DIR PRN IV (CKD) Insulin Human Regular (HumuLIN R) 100 UNIT ASDIR IV (CKD) Sodium Chloride (SODIUM CHLORIDE 0.9%) 99 ML Dopamine HCl/Dextrose (DOPamine 400MG/D5W 250ML) 250 ML ASDIR IV Clopidogrel Bisulfate (Plavix) 75 MG DAILY PO Polyethylene Glycol (MIRALAX) 17 GM DAILY PO Docusate Sodium (COLACE) 100 MG BID PO Metoprolol Tartrate (LOPRESSOR) 12.5 MG Q12HR PO (r) Sennosides (Senna Lax 8.6 MG TABLET) 17.2 MG BED TIME PO Aspirin (ASPIRIN) 81 MG DAILY PO Acetaminophen (TYLENOL) 650 MG Q4H PRN PRN PO Acetaminophen (TYLENOL) 650 MG Q4H PRN PRN RECTA L Calcium Chloride (CALCIUM CHLORIDE) 1 GM ASDIR P RN IV Dextrose/Water (DEXTROSE 10% IN WATER) 125 ML DIR PRN IV (CKD) Dextrose/Water (DEXTROSE 10% IN WATER) 250 ML DIR PRN IV (CKD) Epinephrine (ADRENALIN CHLORIDE) 4 MG ASDIR IV Dextrose/Water (DEXTROSE 5% WATER) 246 ML Glucagon (GLUCAGON) 1 MG ASDIR PRN IM Ipratropium [place] (ATROVENT) 500 MCG RTQ4H INH (DC) Magnesium Sulfate (MAGNESIUM SULFATE 4GM/SWFI 10 0ML) 100 ML ASDIR PRN IV Magnesium Sulfate (MAGNESIUM SULFATE 2GM/SWFI 50 ML) 50 ML ASDIR PRN IV Magnesium Sulfate/Dextrose (MAGNESIUM SULFATE 1G M/D5W 100ML) 100 ML ASDIR PRN IV Nitroglycerin/Dextrose (NITROGLYCERIN 50,000MCG/ D5W 250ML) 250 ML ASDIR IV Norepinephrine Bitartrate (NOREPINEPHRINE 8 MG/N S 250 ML) 250 ML TITRATE IV Ondansetron HCl (ZOFRAN) 4 MG Q6H PRN PRN IV Potassium Chloride (KCL 20MEQ/SWFI 100ML) 100 ML ASDIR PRN IV Sodium Bicarbonate (SODIUM BICARBONATE) 50 MEQ A SDIR PRN IV Sodium Chloride (SODIUM CHLORIDE 0.9%) 1,000 ML .Q20H IV Sodium Chloride (SODIUM CHLORIDE 0.9%) 250 ML Q2 4H IV Atorvastatin Calcium (LIPITOR) 40 MG 2100 PO Melatonin (Melatonin) 6 MG BEDTIME PO Sodium Chloride (SODIUM CHLORIDE) 20 ML ASDIR IV Acetaminophen (TYLENOL) 650 MG Q4H PRN PRN PO Results Findings/Data: Laboratory Tests 06/23 06/23 06/22 06/22 06/22 0801 0250 1623 1358 1110 Chemistry Sodium (134 - 147 mEq/L) 144 Potassium (3.4 - 5.0 mEq/L) 4.0 Chloride (100 - 108 mEq/L) 112 H Carbon Dioxide (21 - 33 mEq/l) 30 Anion Gap (0 - 20) 6 BUN (7 - 18 mg/dL) 14 Creatinine (0.6 - 1.3 mg/dL) 0.8 Glomerular Filtr Rate (80 - 90) 81.7 Glucose (70 - 110 mg/dL) 120 H POC Glucose (70 - 110 MG/DL) 139 H 154 H 228 H 164 H Calcium (8.0 - 10.5 mg/dL) 9.2 Magnesium (1.80 - 2.40 mg/dL) 2.10 Laboratory Tests 06/227 Coagulation INR (0.8 - 1.2) 1.3 H PTT (Ruslan) (25.0 - 39.5 Seconds) 31.9 PT Patient/Control Mix (9.3 - 12.9 SECONDS) 14. 2 H Laboratory Tests 06/230 7 Hematology WBC (4.5 - 11.0 x10 3/uL) 8.7 8.8 RBC (3.54 - 5.02 x10 6/uL) 2.86 L 2.81 L Hgb (11.0 - 15.0 g/dL) 8.8 L 8.6 L Hct (33.0 - 45.0 %) 25.7 L 25.4 L MCV (81.0 - 99.0 fL) 89.9 90.4 MCH (27.0 - 33.0 pg) 30.8 30.6 MCHC (33.0 - 37.0 g/dL) 34.2 33.9 RDW (11.5 - 14.5 %) 14.6 H 14.5 Plt Count (150 - 400 x10 3/uL) 218 229 MPV (7.0 - 9.0 fL) 9.7 H 10.0 H Neut % (Auto) (56.0 - 77.0 %) 61.5 61.5 Lymph % (Auto) (14.0 - 32.0 %) 27.4 28.2 [place] % (Auto) (4.8 - 9.0 %) 6.7 6.2 Eos % (Auto) (0.3 - 3.7 %) 2.8 2.3 Baso % (Auto) (0.0 - 2.0 %) 0.1 0.2 Neut # (Auto) (2.0 - 7.6 x10 3/uL) 5.36 5.38 Lymph # (Auto) (1.0 - 3.8 x10 3/uL) 2.39 2.47 [place] # (Auto) (0.1 - 0.8 x10 3/uL) 0.58 0.54 Eos # (Auto) (0.0 - 0.2 x10 3/uL) 0.24 H 0.20 Baso # (Auto) (0.0 - 0.2 x10 3/uL) 0.01 0.02 Abs Immat Gran (auto) (0.00 - 0.03 x10 3/uL) 0. 13 H 0.14 H Add Manual Diff NO NO Immature Gran % (0.0 - 2.0 %) 1.5 1.6 Nucleated RBC % (0 - 0 %) 0.8 H 1.0 H Nucleated RBCs # (Man) (0.0 - 0.1 x10 3/uL) 0.0 7 0.09 Radiology data: Recent Impressions: RADIOLOGY - XR CHEST 1 V 06/23 0722 Report Impression - Status: SIGNED Entered: 06/23/2022 6058 IMPRESSION: Shadowing in the left lower hemithorax likely re presenting small left pleural effusion. The this is probably unch anged from previous. Impression By: [email or web address] - Dale Arias Results: labs reviewed, vital signs stable, marquise milton personally rev'd, x-ray personally reviewed, current med profile rev'd Treatment Prophylaxis Treatment Prophylaxis Oxygen: room air Diagnosis, Assessment Plan Hospital course to date: Very pleasant 67-year-old female with past medic al history of stroke, hypertension, hyperlipidemia, diabetes (on insul in), obstructive sleep apnea, PAD, 2 MIs in the past statu s post PCI/stenting (on Plavix at home), NonHodgkin' s lymphoma (2006) who was at home working on her computer when she suddenly developed severe chest pain radiating to left sh oulder and jaw. Presented to the emergency room, was evaluated by car diology and underwent left heart cath. Coronary angiogram revealed severe multivessel coronary artery disease involving LAD which is totally occluded after the midporti on; diagonal OM branch with proximal stenosis 60 to 70%, left circumflex wit h 80-90% stenosis. Patient transferred to [facility] for surgical revasc ularization. PLAN Coronary angiogram images re viewed with Dr. Rogel and findings discussed with the patient. Will benefit from surgical revascul arization. Initiate preop work-up for CABG Hold Plavix. Obtain platelet response test to Pl avix Carotid ultrasound Noncontrasted chest BLE venous Doppler for vein mapping and marking Completed echocardiogram Incentive spirometer teaching Physical therapy evaluation given Charcot syndro me and limited mobilization Further recommendations to follow. 06/16/22 CABG x 4 (LIN-LAD, SVG-Elisabet, SVG-OM, SVG-PDA) ALAA EVH (RGSV) Posterior pericardiotomy 06/17/22 POD 1 Patient is alert and oriented, out of bed in dulce ir Labile blood pressure. Minimal pressor requireme nts, levo at 1, wean off as tolerated Transfuse 1 unit PRBC On 2l nasal cannula, encoura ge incentive spirometer use, nebs and deep breathing NSR on nutrition coordinator, no ectopy, epicardial pa cing wires on standby Keep both chest tubes and monitor outputs Cardiac diet Glycemic control on insulin drip, monitor blood sugars, consult endocrinology Bowel regimen protocol PT/OT DVT prophylaxis with SCDs and SQ heparin, GI pro phylaxis with PPI Monitor patient in CVICU Patient seen with Dr. Rogel, plan of care disc ussed with ICU team 06/18 No major events overnight, alert and oriented Wean O2 as tolerated. Encourage I-S On dopamine drip at 3 for renal perfusion; pt smith d low UOP yesterday Off levophed Cr 1.0 from 1.2. Strict I's and O's Chest tubes with minimal output; we will discont inue this morning Bowel regimen Glycemic control with insulin drip. Endocrinolog y following DVT prophylaxis with heparin subq Keep in CVICU today Pt seen and plan reviewed with Dr Rogel 06/19 POD 3 Patient in stable condition. Alert, awake, and o riented, oob in chair CXR and labs reviewed-stable Patient went into afib rvr- recieved amio bolus x 2 and amio drip Rebolus amio this am, Wean dopamine off and micah tor UOP and BP Monitor renal function, Cr 0.7 Strict I Os Cardiac diet, nutritional supplements SSI-glycemic control DVT ppx- SCDs and heparin SQ Continue supportive care in CVICU Rehab consulted Patient seen with Dr. Rogel, plan of care disc ussed with ICU team. 06/20/22 POD 4 Patient recovering well, alert, awake, and orien radha, no distress noted Breathing comfortable on ashlee m air, O2 sats 96%, Encourage I-S and deep breathing CXR shows small right pleural effusion, and stab le pulmonary opacities Remains a-fib rate controlled, on IV amio, rebol us amio today Discontinue staples and central line Diuresis with lasix 20 IV x 1 Strict I Os, daily weights GI consulted for patient fee ling food gets stuck in the middle of the esophagus, possible EGD Rehab following DVT prophylaxis with subq heparin and SCDS Monitor patient in CVICU Patient seen with Dr. Rogel, plan of care disc ussed with ICU team. 06/21/22 POD 5 Patient alert, awake, and oriented, no distress noted Remains in rate controlled a-fib, plan for cardi oversion today- Successful cardioversion into Sinus rhythm Keep O2 sats > 92%, on room air Continue pulmonary toileting, nebs, I-S use Discontinue central line Labs and chest x-ray reviewed- stable Cardiac diet, bowel regimen protocol- give suppo sitory today Pain controlled Daily weights, strict I Os DVT prophylaxis with SCDs and heparin SQ, GI pro phylaxis with PPI Rehab following Continue therapy with PT/OT Patient seen with Dr. Rogel, plan of care disc ussed with multidisciplinary team 06/22 POD 6 Patient alert, awake, and oriented, no distress noted Patient cardioverted to sinus rhtyhm with cardio version. on amiodarone PO. Keep O2 sats > 93%, on room air Continue pulmonary toileting, nebs, I-S use Discontinue central line Labs and chest x-ray reviewed- stable Cardiac diet, bowel regimen protocol- give suppo sitory today BM with enema this am. Daily weights, strict I Os DVT prophylaxis with SCDs and heparin SQ, GI pro phylaxis with PPI Gi following- consider outpaitnet workup. Rehab following- Patient family want to take her home will order home health. Continue therapy with PT/OT Patient seen with Dr. Rogel, plan of care disc ussed with multidisciplinary team 06/23/22 POD 7 Patient recovering well, alert, awake and orient ed Breathing comfotable on room air Encourage deep breathing and incentive spiromete r use CXR and labs reviewed- stable Tolerating diet, + BM EGD to be done as outpatient- GI following Daily weights and strict I Os DVT prophylaxis with SCDs and heparin SQ, GI pro phylaxis with PPI Rehab following- Patient family want to take her home residential program manager consulted for home health services Continue therapy with PT/OT Transfer to intermediate care unit Patient seen with Dr. Rogel, plan of care disc ussed with multidisciplinary team Consultants: cardiology Plan discussed with: patient , admitting physician, consultants, nurse, interdisc care team at 1250 at 1230 RPT #:[id number] END OF REPORT 2022-06-23 09:23:00-00:00 [facility] ([facility]) Critical Care Progress Note REPORT#:[id number] REPORT STATUS: Signed DATE:06/23/22 TIME: 922 PATIENT: KALA TURPIN UNIT #: [id number] ROOM/BED: [place] [id number] : 57 AGE: 67 SEX: F ATTEND: Reji Patel MD ADM AUTHOR: Anna Martinez MD * ALL edits or amendments must be made on the [employer]/computer document * Subjective Chief complaint: s/p CABG x4 (LIN-LAD, SVG-Elisabet, SVG-OM, SVG-PDA) ALAA EVH (RGSV) Posterior pericardiotomy on 06/16/2022 Comments: The patient offers no new complaints No SOB, on room air In normal sinus rhythm Chest x-ray shows small left pleural effusion Afebrile Review of Systems Free Text ROS Notes Free Text ROS Notes: 12 point Review of Systems was performed to the extent possible including discussion with the nursing staff and review of vital signs and all data. All systems negative other than pertinent negative/p ositive findings mentioned in the interval history section. Objective General VS/I O Last Documented: Result Date Time Pulse Ox 96 06/23 1042 B/P 119/55 06/23 1042 B/P Mean 0.0 06/23 1042 Temp 36.8 06/23 1042 Pulse 66 06/23 1042 Resp 18 06/23 1042 O2 Delivery Room air 06/23 2003 FiO2 21 06/22 1602 O2 Flow Rate 0 06/21 1200 24 hour I O ending at 0700: 06/23 0700 06/22 1900 Intake Total 320.00 Output Total 1350 1500 Balance -1030.00 -1500 Intake, IV 80.00 Intake, Oral 240 Number 1 Bowel Movements Number Voids 2 Output, Urine 1350 1500 Patient 100.7 kg Weight Weight Standing scale Measurement Method PATIENT WEIGHT: Weight (lb): 222 Weight (oz): 0.09 Weight (kg): 100.700 Medications: Active Meds + DC'd Last 24 Hrs Amiodarone HCl (CORDARONE) 200 MG BID PO Insulin Human Lispro (HUMALOG) 0 AC HS SUBQ Insulin Human Lispro (HUMALOG) 5 UNIT AC HS SUBQ Hydralazine HCl (APRESOLINE) 10 MG Q6H PRN PRN IV Gabapentin (NEURONTIN) 300 MG BID PO Insulin Glargine (Lantus/Semglee) 15 UNIT BEDTIM E SUBQ Paroxetine HCl (PAXIL) 20 MG DAILY PO Multi-Ingredient Mouthwash/Gargle (MAGIC MOUTHWA SH) 10 ML Q4H PRN PRN PO Amiodarone HCl (CORDARONE) 400 MG BID PO (DC) Pantoprazole (PROTONIX) 40 MG 0600,1800 PO Ipratropium [place] (ATROVENT) 500 MCG Q2H PRN P RN INH Cyanocobalamin (Vitamin B-12 500 mcg tab) 500 MC G DAILY PO Ferrous Sulfate (FERROUS SULFATE) 325 MG DAILY PO Amiodarone HCl (AMIODARONE HCL) 450 MG ASDIR IV (CKD) Dextrose/Water (D5%W NON-DEHP) 250 ML Bisacodyl (DULCOLAX) 10 MG ONCE PRN RECTAL Magnesium Hydroxide (MILK OF MAGNESIA) 30 ML ONC E PRN PO Heparin Sodium (HEPARIN 5000 UNITS/ML) 5,000 UNI T Q12HR SUBQ Dextrose/Water (DEXTROSE 10% IN WATER) 250 ML DIR PRN IV (CKD) Insulin Human Regular (HumuLIN R) 100 UNIT ASDIR IV (CKD) Sodium Chloride (SODIUM CHLORIDE 0.9%) 99 ML Dopamine HCl/Dextrose (DOPamine 400MG/D5W 250ML) 250 ML ASDIR IV Clopidogrel Bisulfate (Plavix) 75 MG DAILY PO Polyethylene Glycol (MIRALAX) 17 GM DAILY PO Docusate Sodium (COLACE) 100 MG BID PO Metoprolol Tartrate (LOPRESSOR) 12.5 MG Q12HR PO (r) Sennosides (Senna Lax 8.6 MG TABLET) 17.2 MG BED TIME PO Aspirin (ASPIRIN) 81 MG DAILY PO Acetaminophen (TYLENOL) 650 MG Q4H PRN PRN PO Acetaminophen (TYLENOL) 650 MG Q4H PRN PRN RECTA L Calcium Chloride (CALCIUM CHLORIDE) 1 GM ASDIR P RN IV Dextrose/Water (DEXTROSE 10% IN WATER) 125 ML DIR PRN IV (CKD) Dextrose/Water (DEXTROSE 10% IN WATER) 250 ML DIR PRN IV (CKD) Epinephrine (ADRENALIN CHLORIDE) 4 MG ASDIR IV Dextrose/Water (DEXTROSE 5% WATER) 246 ML Glucagon (GLUCAGON) 1 MG ASDIR PRN IM Ipratropium [place] (ATROVENT) 500 MCG RTQ4H INH (DC) Magnesium Sulfate (MAGNESIUM SULFATE 4GM/SWFI 10 0ML) 100 ML ASDIR PRN IV Magnesium Sulfate (MAGNESIUM SULFATE 2GM/SWFI 50 ML) 50 ML ASDIR PRN IV Magnesium Sulfate/Dextrose (MAGNESIUM SULFATE 1G M/D5W 100ML) 100 ML ASDIR PRN IV Nitroglycerin/Dextrose (NITROGLYCERIN 50,000MCG/ D5W 250ML) 250 ML ASDIR IV Norepinephrine Bitartrate (NOREPINEPHRINE 8 MG/N S 250 ML) 250 ML TITRATE IV Ondansetron HCl (ZOFRAN) 4 MG Q6H PRN PRN IV Potassium Chloride (KCL 20MEQ/SWFI 100ML) 100 ML ASDIR PRN IV Sodium Bicarbonate (SODIUM BICARBONATE) 50 MEQ A SDIR PRN IV Sodium Chloride (SODIUM CHLORIDE 0.9%) 1,000 ML .Q20H IV Sodium Chloride (SODIUM CHLORIDE 0.9%) 250 ML Q2 4H IV Atorvastatin Calcium (LIPITOR) 40 MG 2100 PO Melatonin (Melatonin) 6 MG BEDTIME PO Sodium Chloride (SODIUM CHLORIDE) 20 ML ASDIR I V Acetaminophen (TYLENOL) 650 MG Q4H PRN PRN PO Results Findings/data: Laboratory Tests 06/23 06/23 06/22 06/22 06/22 0801 0250 1623 1358 1110 Chemistry Sodium (134 - 147 mEq/L) 144 Potassium (3.4 - 5.0 mEq/L) 4.0 Chloride (100 - 108 mEq/L) 112 H Carbon Dioxide (21 - 33 mEq/l) 30 Anion Gap (0 - 20) 6 BUN (7 - 18 mg/dL) 14 Creatinine (0.6 - 1.3 mg/dL) 0.8 Glomerular Filtr Rate (80 - 90) 81.7 Glucose (70 - 110 mg/dL) 120 H POC Glucose (70 - 110 MG/DL) 139 H 154 H 228 H 164 H Calcium (8.0 - 10.5 mg/dL) 9.2 Magnesium (1.80 - 2.40 mg/dL) 2.10 Laboratory Tests 06/227 2127 Coagulation INR (0.8 - 1.2) 1.3 H PTT (Ruslan) (25.0 - 39.5 Seconds) 31.9 PT Patient/Control Mix (9.3 - 12.9 SECONDS) 14 .2 H Laboratory Tests 06/23 2127 Hematology WBC (4.5 - 11.0 x10 3/uL) 8.7 8.8 RBC (3.54 - 5.02 x10 6/uL) 2.86 L 2.81 L Hgb (11.0 - 15.0 g/dL) 8.8 L 8.6 L Hct (33.0 - 45.0 %) 25.7 L 25.4 L MCV (81.0 - 99.0 fL) 89.9 90.4 MCH (27.0 - 33.0 pg) 30.8 30.6 MCHC (33.0 - 37.0 g/dL) 34.2 33.9 RDW (11.5 - 14.5 %) 14.6 H 14.5 Plt Count (150 - 400 x10 3/uL) 218 229 MPV (7.0 - 9.0 fL) 9.7 H 10.0 H Neut % (Auto) (56.0 - 77.0 %) 61.5 61.5 Lymph % (Auto) (14.0 - 32.0 %) 27.4 28.2 [place] % (Auto) (4.8 - 9.0 %) 6.7 6.2 Eos % (Auto) (0.3 - 3.7 %) 2.8 2.3 Baso % (Auto) (0.0 - 2.0 %) 0.1 0.2 Neut # (Auto) (2.0 - 7.6 x10 3/uL) 5.36 5.38 Lymph # (Auto) (1.0 - 3.8 x10 3/uL) 2.39 2.47 [place] # (Auto) (0.1 - 0.8 x10 3/uL) 0.58 0.54 Eos # (Auto) (0.0 - 0.2 x10 3/uL) 0.24 H 0.20 Baso # (Auto) (0.0 - 0.2 x10 3/uL) 0.01 0.02 Abs Immat Gran (auto) (0.00 - 0.03 x10 3/uL) 0. 13 H 0.14 H Add Manual Diff NO NO Immature Gran % (0.0 - 2.0 %) 1.5 1.6 Nucleated RBC % (0 - 0 %) 0.8 H 1.0 H Nucleated RBCs # (Man) (0.0 - 0.1 x10 3/uL) 0.0 7 0.09 Laboratory Tests 06/23/22 0250: [Embedded Image Not Available] 06/22/227: [Embedded Image Not Available] Radiology data Recent Impressions: RADIOLOGY - XR CHEST 1 V 06/23 0722 Report Impression - Status: SIGNED Entered: 06/23/2022 0907 IMPRESSION: Shadowing in the left lower hemithorax likely re presenting small left pleural effusion. The this is probably unch anged from previous. Impression By: [email or web address] Dale Mcbride Free Text Obj Notes Free Text Obj Notes: GEN: Female in no acute distress, interactive an d conversational HEENT: Atraumatic, normocephalic, moist mucous m embranes NECK: Supple, good range of motion, no tendernes s LUNGS: Symmetrical air entry, no acute respirato ry distress CV: S1, S2, normal sinus rhythm, no murmur adame ps or rubs. GI: Abdomen is soft, not tender or distended EXT/Musc: LE edema, no cyanosis. Pedal pulses pr esent Skin: Surgical site clean, dry and intact. Warm to touch NEURO: Awake, alert and oriented x3. No facial d jovani or focal deficit Diagnosis, Assessment Plan Problem list/A P: 1. S/P CABG x 4 2. Coronary artery disease 3. Dysphagia 4. Afib Free text A P: 67 yo F admitted to CVICU s/p CABG x4 (LIN-LAD, SVG-Elisabet, SVG-OM, SVG-PDA) ALAA EVH (RGSV) Posterior pericardiotomy Acute pulm insufficiency following thoracic surg kimberli Diabetes mellitus with hemoglobin A1c 8.3 Acute blood loss anemia from surgery Neuro: keep off sedation, multimodal pain contro l, neurologically at baseline Respiratory: On 2 L nasal cannula wean down as t olerated. Patient has underlying PAULO. We will start her on CPAP. She d oes not know her settings. Start on CPAP at 8, as tolerated, Continue iprat ropium nebs. ABG and chest x- ray reviewed. Cardiovascular: Patient still continues to be hy pertensive. Continue dopamine at 3 mics for now Renal: Patient's creatinine has stabiliz ed at 0.9. Urine output has started to improve. Continue to monitor. Electrolytes are s table. ID: White count slightly high. No fevers. Contin ue to monitor for now GI: Continue bowel regimen. Abdomen is soft. Carolyne erating diet. LFTs stable. Hem: Hemoglobin is stable. Continue to monitor Endo: BG control with insulin gtt per protocol, endocrine consult Misc: PTOT consult, DVT and GI ppx with DAPT and PPI DisPosition is home her will stay with h er 06/19 Appears neuro intact, multimodal pain control Sats well on NC, wean O2, aggressive I-S, CXR re viewed Remains HD stable, A-fib better controlled, on a miodarone drip, hold off on dopamine drip Cr stable, start diuresis, monitor UOP, replete hypomagnesemia, repeat labs Oral diet as tolerated, possible upper GI pathol ogy per speech, consider GI consult No fevers or leukocytosis, no ID issues at this time Hgb appears stable, no evidence of active bleed, CTs removed Blood glucose control with i nsulin drip, transition to SQ insulin per endocrine Encourage PT/OT and out of bed as tolerated, IPR consult DVT and GI prophylaxis with DAPT and PPI 06/20 Remains neuro intact, continue multimodal pain c ontrol Sats well on NC, weaning O2, aggressive I-S, CXR reviewed HD stable, remains in controlled A-fib, rebolus with amiodarone and increase oral dose Cr remains stable, continue diuresis, monitor UO P, obtain labs as needed Oral diet as tolerated, jr l regimen, seen by GI for dysphagia, may need an EGD No fevers or leukocytosis, no ID issues at this time Hgb appears stable, no evidence of active bleedi ng Blood glucose control with insulin drip and Lant us per endocrine Encourage PT/OT and out of bed as tolerated, IPR consulted DVT and GI prophylaxis with DAPT and PPI bid (pe r GI) 06/21 Remains neuro intact, continue multimodal pain c ontrol, on Paxil at home Sats well on NC, weaning O2, aggressive I-S, CXR reviewed Orthostatic but HD stable, remains in A-fib, off amiodarone drip, plan for cardioversion Cr remains stable, hold off on further diuresis, monitor UOP, replete hypokalemia Oral diet as tolerated, bowel regimen, d ysphagia work-up as outpatient if okay with GI No fevers or leukocytosis, no ID issues at this time Hgb appears stable, no evidence of active bleedi ng Blood glucose control with insulin drip and Lant us per endocrine Encourage PT/OT and out of b ed as tolerated, CM for dispo planning, IPR team on board DVT and GI prophylaxis with DAPT and PPI bid (pe r GI) 06/22 On room air Inhaled bronchodilators as needed Incentive spirometry Aspirin and Plavix Amiodarone Atorvastatin, decreased to 200 mg p.o. twice amish ly Metoprolol, on hold today Monitor kidney function and trend creatinine Monitor and replete electrolytes Strict I O's Cardiac diet with bowel regimen Blood glucose control, transition to sliding sca le insulin VTE prophylaxis, DAPT, SCDs Stress ulcer prophylaxis, PPI Discussed with ICU team and CV surgery Critical care time 36 minutes 06/23 On room air Inhaled bronchodilators as needed Incentive spirometry Aspirin and Plavix Amiodarone Atorvastatin, decreased to 200 mg p.o. twice amish ly Per CV surgery, resume metoprolol 12.5 mg p.o. t wice daily Monitor kidney function and trend creatinine Monitor and replete electrolytes Strict I O's Cardiac diet with bowel regimen Blood glucose control, transitioned to sliding s jodee insulin VTE prophylaxis, DAPT, SCDs Stress ulcer prophylaxis, PPI Discussed with ICU team and CV surgery Can be transferred per CV surgery Consultants: cardiology at 1124 RPT #:[id number] END OF REPORT 2022-06-23 08:53:00-00:00 [facility] Cardiology Progress Note REPORT#:[id number] REPORT STATUS: Signed DATE:06/23/22 TIME: 0853 PATIENT: KALA TURPIN UNIT #: [id number] ROOM/BED: [place] [id number] : 57 AGE: 67 SEX: F ATTEND: Reji Patel MD ADM AUTHOR: Julius Washington MD * ALL edits or amendments must be made on the [employer]/computer document * Subjective Free Text Subj Notes Free Text Subj Notes: Doing okay Objective General VS/I O: 24 hour I O ending at 0700: 06/23 0700 06/22 1900 Intake Total 320.00 Output Total 1350 1500 Balance -1030.00 -1500 Intake, IV 80.00 Intake, Oral 240 Number 1 Bowel Movements Number Voids 2 Output, Urine 1350 1500 Patient 100.7 kg Weight Weight Standing scale Measurement Method Vital Signs: Date Time Temp Pulse Resp B/P B/P Pulse O2 O2 F low FiO2 Mean Ox Delivery Rate 06/23 0642 59 17 96 06/23 0625 60 14 141/65 94 96 06/23 0609 74 96 06/23 0600 77 21 97 06/23 0500 62 21 142/63 90 95 06/23 0401 76 17 138/63 90 96 06/23 0400 77 18 96 06/23 0301 71 15 146/66 95 99 06/23 0300 75 16 100 06/23 0251 62 19 96 06/23 0245 62 96 03 0200 62 19 153/72 103 96 06/23 0145 63 18 96 06/23 0101 61 19 142/63 90 96 06/23 0100 61 19 96 06/23 0045 62 17 97 06/23 0003 68 18 174/73 105 98 06/23 0000 72 44 06/22 2345 64 17 98 06/22 2301 59 18 143/98 115 97 06/22 2300 59 18 97 06/22 2245 61 16 98 06/22 2200 63 21 167/74 106 97 06/22 2145 60 22 99 06/22 2123 65 151/68 98 97 06/22 2100 63 16 96 06/22 2045 66 17 97 06/22 2004 97 Room air 06/23 1999 98.1 06/22 1945 63 06/22 1845 64 19 97 06/22 1750 65 23 98 06/22 1702 58 20 144/65 94 98 06/22 1700 58 18 97 06/22 1602 97 Room air 21 06/22 1501 60 16 123/60 87 97 06/22 1500 57 18 97 06/22 1420 63 17 149/65 93 99 06/22 1419 66 23 100 06/22 1400 60 38 98 06/22 1300 60 19 98 06/22 1258 61 18 118/56 80 99 06/22 1233 61 12 100 06/22 1231 99 Room air 21 06/22 1200 59 15 96 06/22 1113 136/64 92 06/22 1108 69 14 159/72 104 06/22 1104 69 33 06/22 1100 69 17 06/22 1001 72 20 144/65 94 97 06/22 1000 72 18 97 06/22 0937 71 15 174/77 110 97 30 0900 58 21 PATIENT WEIGHT: Weight (lb): 222 Weight (oz): 0.09 Weight (kg): 100.700 Medications: Active Meds + DC'd Last 24 Hrs Amiodarone HCl (CORDARONE) 200 MG BID PO Insulin Human Lispro (HUMALOG) 0 AC HS SUBQ Insulin Human Lispro (HUMALOG) 5 UNIT AC HS SUBQ Sodium Biphosphate/Sodium Phosphate (FLEET ENEMA ADULT) 1 ENEMA ONCE ONE RECTAL (DC) Hydralazine HCl (APRESOLINE) 10 MG Q6H PRN PRN I V Gabapentin (NEURONTIN) 300 MG BID PO Insulin Glargine (Lantus/Semglee) 15 UNIT BEDTIM E SUBQ Paroxetine HCl (PAXIL) 20 MG DAILY PO Multi-Ingredient Mouthwash/Gargle (MAGIC MOUTHWA SH) 10 ML Q4H PRN PRN PO Amiodarone HCl (CORDARONE) 400 MG BID PO (DC) Pantoprazole (PROTONIX) 40 MG 0600,1800 PO Ipratropium [place] (ATROVENT) 500 MCG Q2H PRN P RN INH Cyanocobalamin (Vitamin B-12 500 mcg tab) 500 MC G DAILY PO Ferrous Sulfate (FERROUS SULFATE) 325 MG DAILY P O Amiodarone HCl (AMIODARONE HCL) 450 MG ASDIR IV (CKD) Dextrose/Water (D5%W NON-DEHP) 250 ML Bisacodyl (DULCOLAX) 10 MG ONCE PRN RECTAL Magnesium Hydroxide (MILK OF MAGNESIA) 30 ML ONC E PRN PO Heparin Sodium (HEPARIN 5000 UNITS/ML) 5,000 UNI T Q12HR SUBQ Dextrose/Water (DEXTROSE 10% IN WATER) 250 ML DIR PRN IV (CKD) Insulin Human Regular (HumuLIN R) 100 UNIT ASDIR IV (CKD) Sodium Chloride (SODIUM CHLORIDE 0.9%) 99 ML Dopamine HCl/Dextrose (DOPamine 400MG/D5W 250ML) 250 ML ASDIR IV Clopidogrel Bisulfate (Plavix) 75 MG DAILY PO Polyethylene Glycol (MIRALAX) 17 GM DAILY PO Docusate Sodium (COLACE) 100 MG BID PO Metoprolol Tartrate (LOPRESSOR) 12.5 MG Q12HR PO (r) Sennosides (Senna Lax 8.6 MG TABLET) 17.2 MG BED TIME PO Aspirin (ASPIRIN) 81 MG DAILY PO Acetaminophen (TYLENOL) 650 MG Q4H PRN PRN PO Acetaminophen (TYLENOL) 650 MG Q4H PRN PRN RECTA L Calcium Chloride (CALCIUM CHLORIDE) 1 GM ASDIR P RN IV Dextrose/Water (DEXTROSE 10% IN WATER) 125 ML DIR PRN IV (CKD) Dextrose/Water (DEXTROSE 10% IN WATER) 250 ML DIR PRN IV (CKD) Epinephrine (ADRENALIN CHLORIDE) 4 MG ASDIR IV Dextrose/Water (DEXTROSE 5% WATER) 246 ML Glucagon (GLUCAGON) 1 MG ASDIR PRN IM Ipratropium [place] (ATROVENT) 500 MCG RTQ4H INH (DC) Magnesium Sulfate (MAGNESIUM SULFATE 4GM/SWFI 10 0ML) 100 ML ASDIR PRN IV Magnesium Sulfate (MAGNESIUM SULFATE 2GM/SWFI 50 ML) 50 ML ASDIR PRN IV Magnesium Sulfate/Dextrose (MAGNESIUM SULFATE 1G M/D5W 100ML) 100 ML ASDIR PRN IV Nitroglycerin/Dextrose (NITROGLYCERIN 50,000MCG/ D5W 250ML) 250 ML ASDIR IV Norepinephrine Bitartrate (NOREPINEPHRINE 8 MG/N S 250 ML) 250 ML TITRATE IV Ondansetron HCl (ZOFRAN) 4 MG Q6H PRN PRN IV Potassium Chloride (KCL 20MEQ/SWFI 100ML) 100 ML ASDIR PRN IV Sodium Bicarbonate (SODIUM BICARBONATE) 50 MEQ A SDIR PRN IV Sodium Chloride (SODIUM CHLORIDE 0.9%) 1,000 ML .Q20H IV Sodium Chloride (SODIUM CHLORIDE 0.9%) 250 ML Q2 4H IV Atorvastatin Calcium (LIPITOR) 40 MG 2100 PO Melatonin (Melatonin) 6 MG BEDTIME PO Sodium Chloride (SODIUM CHLORIDE) 20 ML ASDIR IV Acetaminophen (TYLENOL) 650 MG Q4H PRN PRN PO Physical Exam General appearance: alert, awake, oriented Neck: non-tender Cardiovascular: CV assessment: pedal edema, regular rate and rh ythm Respiratory: decreased breath sounds, no distres s Abdomen: soft, non-tender, normal bowel sounds, no distention Genitourinary: urinary catheter, urine Lower extremity: LE assessment: edema, no calf tenderness 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, oriented X 3, normal speech Skin: dry, intact, normal color Psychiatry: normal affect, normal judgment/insig ht, normal mood Results Findings/Data: Laboratory Tests 06/23 06/23 06/22 06/22 06/22 0801 0250 1623 1358 1110 Chemistry Sodium (134 - 147 mEq/L) 144 Potassium (3.4 - 5.0 mEq/L) 4.0 Chloride (100 - 108 mEq/L) 112 H Carbon Dioxide (21 - 33 mEq/l) 30 Anion Gap (0 - 20) 6 BUN (7 - 18 mg/dL) 14 Creatinine (0.6 - 1.3 mg/dL) 0.8 Glomerular Filtr Rate (80 - 90) 81.7 Glucose (70 - 110 mg/dL) 120 H POC Glucose (70 - 110 MG/DL) 139 H 154 H 228 H 164 H Calcium (8.0 - 10.5 mg/dL) 9.2 Magnesium (1.80 - 2.40 mg/dL) 2.10 Laboratory Tests 06/22 2127 Coagulation INR (0.8 - 1.2) 1.3 H PTT (Ruslan) (25.0 - 39.5 Seconds) 31.9 PT Patient/Control Mix (9.3 - 12.9 SECONDS) 14. 2 H Laboratory Tests 06/23 06/22 0250 2127 Hematology WBC (4.5 - 11.0 x10 3/uL) 8.7 8.8 RBC (3.54 - 5.02 x10 6/uL) 2.86 L 2.81 L Hgb (11.0 - 15.0 g/dL) 8.8 L 8.6 L Hct (33.0 - 45.0 %) 25.7 L 25.4 L MCV (81.0 - 99.0 fL) 89.9 90.4 MCH (27.0 - 33.0 pg) 30.8 30.6 MCHC (33.0 - 37.0 g/dL) 34.2 33.9 RDW (11.5 - 14.5 %) 14.6 H 14.5 Plt Count (150 - 400 x10 3/uL) 218 229 MPV (7.0 - 9.0 fL) 9.7 H 10.0 H Neut % (Auto) (56.0 - 77.0 %) 61.5 61.5 Lymph % (Auto) (14.0 - 32.0 %) 27.4 28.2 [place] % (Auto) (4.8 - 9.0 %) 6.7 6.2 Eos % (Auto) (0.3 - 3.7 %) 2.8 2.3 Baso % (Auto) (0.0 - 2.0 %) 0.1 0.2 Neut # (Auto) (2.0 - 7.6 x10 3/uL) 5.36 5.38 Lymph # (Auto) (1.0 - 3.8 x10 3/uL) 2.39 2.47 [place] # (Auto) (0.1 - 0.8 x10 3/uL) 0.58 0.54 Eos # (Auto) (0.0 - 0.2 x10 3/uL) 0.24 H 0.20 Baso # (Auto) (0.0 - 0.2 x10 3/uL) 0.01 0.02 Abs Immat Gran (auto) (0.00 - 0.03 x10 3/uL) 0. 13 H 0.14 H Add Manual Diff NO NO Immature Gran % (0.0 - 2.0 %) 1.5 1.6 Nucleated RBC % (0 - 0 %) 0.8 H 1.0 H Nucleated RBCs # (Man) (0.0 - 0.1 x10 3/uL) 0.0 7 0.09 Laboratory Tests 06/23 0250 Chemistry Magnesium (1.80 - 2.40 mg/dL) 2.10 Diagnosis, Assessment Plan Free Text DxA P Notes Free Text DxA P Notes: 67-year-old female with [facility] history of CAD, MA, prior PCI/MEG 11 years ago, hypertension, diabetes melli tus, CVA, peripheral neuropathy, Charcot's foot who presented to with chest pain. She was taken for left heart catheterization where she wa s found to have multivessel CAD with failed attempt to PCI the CUT OFF SAWYER LAD. Patient is transferred to [facility] facility for surgical revascularization. 1. Multivessel CAD CABG x 4 (LIN-LAD, SVG-Elisabet, SVG-OM, SVG-PDA) Continue aspirin, beta-xander, statin post-op anemia, HH stable negative fluid balance 2. Hypertension BP stable continue BB 3. Diabetes mellitus Manage per primary team 4. Post-operative Afib s/p DCC to sinus rhythm s/p ALAA 06/22 - transient bradycardia, amiodarone decreas ed to 200 mg BID, metoprolol held on amiodarone 400 mg BID Continue supportive care. Electronically Signed by Julius Washington MD on at 1213 RPT #:[id number] END OF REPORT 2022-06-23 07:31:00-00:00 [facility] Rehab Progress Note REPORT#:[id number] REPORT STATUS: Signed DATE:06/23/22 TIME: 730 PATIENT: KALA TURPIN UNIT #: [id number] ROOM/BED: [place] [id number] : 57 AGE: 67 SEX: F ATTEND: Antonio Patel MD ADM AUTHOR: Kalen Castellanos * ALL edits or amendments must be made on the [employer]/computer document * Subjective Chief complaint: rehab follow-up Pt still in CVICU S/p cardioversion now NSR Doing well denied pain and sob Denies SMITH/N/V/D/CP 14 systems reviewed and neg. except that above. Objective General VS: Vital Signs: Date Time Temp Pulse Resp B/P B/P Pulse O2 O2 F low FiO2 Mean Ox Delivery Rate 06/23 0642 59 17 96 06/23 0625 60 14 141/65 94 96 06/23 0609 74 96 06/23 0600 77 21 97 06/23 0500 62 21 142/63 90 95 06/23 0401 76 17 138/63 90 96 06/23 0400 77 18 96 06/23 0301 71 15 146/66 95 99 06/23 0300 75 16 100 06/23 0251 62 19 96 06/23 0245 62 96 06/23 0200 62 19 153/72 103 96 06/23 0145 63 18 96 06/23 0101 61 19 142/63 90 96 06/23 0100 61 19 96 06/23 0045 62 17 97 06/23 0003 68 18 174/73 105 98 06/23 0000 72 44 06/22 2345 64 17 98 06/22 2301 59 18 143/98 115 97 06/22 2300 59 18 97 06/22 2245 61 16 98 06/22 2200 63 21 167/74 106 97 06/22 2145 60 22 99 06/22 2123 65 151/68 98 97 06/22 2100 63 16 96 06/22 2045 66 17 97 06/22 2004 97 Room air 06/22 2000 98.1 06/22 1945 63 06/22 1845 64 19 97 06/22 1750 65 23 98 06/22 1702 58 20 144/65 94 98 06/22 1700 58 18 97 06/22 1602 97 Room air 21 06/22 1501 60 16 123/60 87 97 06/22 1500 57 18 97 06/22 1420 63 17 149/65 93 99 06/22 1419 66 23 100 06/22 1400 60 38 98 06/22 1300 60 19 98 06/22 1258 61 18 118/56 80 99 06/22 1233 61 12 100 06/22 1231 99 Room air 21 06/22 1200 59 15 96 06/22 1113 136/64 92 06/22 1108 69 14 159/72 104 06/22 1104 69 33 06/22 1100 69 17 06/22 1001 72 20 144/65 94 97 06/22 1000 72 18 97 06/22 0937 71 15 174/77 110 97 06/22 0900 58 21 06/22 0800 59 19 PATIENT WEIGHT: Weight (lb): 222 Weight (oz): 0.09 Weight (kg): 100.700 Medications: Active Meds + DC'd Last 24 Hrs Amiodarone HCl (CORDARONE) 200 MG BID PO Insulin Human Lispro (HUMALOG) 0 AC HS SUBQ Insulin Human Lispro (HUMALOG) 5 UNIT AC HS SUBQ Sodium Biphosphate/Sodium Phosphate (FLEET ENEMA ADULT) 1 ENEMA ONCE ONE RECTAL (DC) Hydralazine HCl (APRESOLINE) 10 MG Q6H PRN PRN I V Gabapentin (NEURONTIN) 300 MG BID PO Insulin Glargine (Lantus/Semglee) 15 UNIT BEDTIM E SUBQ Paroxetine HCl (PAXIL) 20 MG DAILY PO Multi-Ingredient Mouthwash/Gargle (MAGIC MOUTHWA SH) 10 ML Q4H PRN PRN PO Amiodarone HCl (CORDARONE) 400 MG BID PO (DC) Pantoprazole (PROTONIX) 40 MG 0600,1800 PO Ipratropium [place] (ATROVENT) 500 MCG Q2H PRN P RN INH Cyanocobalamin (Vitamin B-12 500 mcg tab) 500 MC G DAILY PO Ferrous Sulfate (FERROUS SULFATE) 325 MG DAILY P O Amiodarone HCl (AMIODARONE HCL) 450 MG ASDIR IV (CKD) Dextrose/Water (D5%W NON-DEHP) 250 ML Bisacodyl (DULCOLAX) 10 MG ONCE PRN RECTAL Magnesium Hydroxide (MILK OF MAGNESIA) 30 ML ONC E PRN PO Heparin Sodium (HEPARIN 5000 UNITS/ML) 5,000 UNI T Q12HR SUBQ Dextrose/Water (DEXTROSE 10% IN WATER) 250 ML DIR PRN IV (CKD) Insulin Human Regular (HumuLIN R) 100 UNIT ASDIR IV (CKD) Sodium Chloride (SODIUM CHLORIDE 0.9%) 99 ML Dopamine HCl/Dextrose (DOPamine 400MG/D5W 250ML) 250 ML ASDIR IV Clopidogrel Bisulfate (Plavix) 75 MG DAILY PO Polyethylene Glycol (MIRALAX) 17 GM DAILY PO Docusate Sodium (COLACE) 100 MG BID PO Metoprolol Tartrate (LOPRESSOR) 12.5 MG Q12HR PO (r) Sennosides (Senna Lax 8.6 MG TABLET) 17.2 MG BED TIME PO Aspirin (ASPIRIN) 81 MG DAILY PO Acetaminophen (TYLENOL) 650 MG Q4H PRN PRN PO Acetaminophen (TYLENOL) 650 MG Q4H PRN PRN RECTA L Calcium Chloride (CALCIUM CHLORIDE) 1 GM ASDIR P RN IV Dextrose/Water (DEXTROSE 10% IN WATER) 125 ML DIR PRN IV (CKD) Dextrose/Water (DEXTROSE 10% IN WATER) 250 ML DIR PRN IV (CKD) Epinephrine (ADRENALIN CHLORIDE) 4 MG ASDIR IV Dextrose/Water (DEXTROSE 5% WATER) 246 ML Glucagon (GLUCAGON) 1 MG ASDIR PRN IM Ipratropium [place] (ATROVENT) 500 MCG RTQ4H INH (DC) Magnesium Sulfate (MAGNESIUM SULFATE 4GM/SWFI 10 0ML) 100 ML ASDIR PRN IV Magnesium Sulfate (MAGNESIUM SULFATE 2GM/SWFI 50 ML) 50 ML ASDIR PRN IV Magnesium Sulfate/Dextrose (MAGNESIUM SULFATE 1G M/D5W 100ML) 100 ML ASDIR PRN IV Nitroglycerin/Dextrose (NITROGLYCERIN 50,000MCG/ D5W 250ML) 250 ML ASDIR IV Norepinephrine Bitartrate (NOREPINEPHRINE 8 MG/N S 250 ML) 250 ML TITRATE IV Ondansetron HCl (ZOFRAN) 4 MG Q6H PRN PRN IV Potassium Chloride (KCL 20MEQ/SWFI 100ML) 100 ML ASDIR PRN IV Sodium Bicarbonate (SODIUM BICARBONATE) 50 MEQ A SDIR PRN IV Sodium Chloride (SODIUM CHLORIDE 0.9%) 1,000 ML .Q20H IV Sodium Chloride (SODIUM CHLORIDE 0.9%) 250 ML Q2 4H IV Atorvastatin Calcium (LIPITOR) 40 MG 2100 PO Melatonin (Melatonin) 6 MG BEDTIME PO Sodium Chloride (SODIUM CHLORIDE) 20 ML ASDIR IV Acetaminophen (TYLENOL) 650 MG Q4H PRN PRN PO Functional Progress Functional progress: Weightbearing: No Restriction STERNAL PRECATION Ambulation Distance: 20 FT X 1 25 FT X 1 Progression: Forward Assistance Level: Supervision or Set-up Gait Deviations: SHORT STEPS [facility] Mobility: No Document Pain/Education: No Advanced Progression: No Effects of Treatment: Tolerance increased Cardio tolerance improved Post [place] Precautions: In Chair Review Plan of Care: Yes PT charges: Gait Training 06706 Gait Cmt: Pt IN CHAIR ON ARRIVAL, SHE PERFORMED 10 EACH OF TOE TAPS, LAQ, SEATED MAY, AMBULATED W RW 20 FT, THEN COMPLETED 150 FT W WC USING B LE TO PROPEL FORWARD, W 3 SHORT BREAKS. THEN GAIT 25 FT W RW TO ROOM. Pt LEFT ON TOILET, RN AWARE. If this is the patient's last treatment, this e ntry serves as the discharge summary: Y Start Time: 1050 Stop Time: 1113 Treatment Time : ( minutes) 0:23 Completed by: Torrey Lal BED MOBILITY: Yes Rolling Right/Left: Modified [place] Supine to Sit: Minimal Assistance Sit to Supine: Minimal Assistance Scooting in bed: Moderate Assistance TRANSFERS: Yes Bed to/from chair: Modified Butler Sit to/from stand: Modified Butler Physical Exam General appearance: alert, awake Psych: alert, oriented x 3 HEENT: anicteric, mucosal membranes moist Neck: supple, no JVD Respiratory: aerating well, clear bilaterally Abdomen: bowel sounds present, non-distended, so ft, non-tender Skin: dry, intact, no rash Musculoskeletal - general: Musculoskeletal - general: swelling (BLE) 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, oriented X 3, CNII-XII intact, normal speech, no motor deficits, no sensory deficits Results Findings/Data: Laboratory Tests: 06/23 06/22 06/22 06/22 0250 2127 2127 1623 Chemistry Sodium (134 - 147 mEq/L) 144 Potassium (3.4 - 5.0 mEq/L) 4.0 Chloride (100 - 108 mEq/L) 112 H Carbon Dioxide (21 - 33 mEq/l) 30 Anion Gap (0 - 20) 6 BUN (7 - 18 mg/dL) 14 Creatinine (0.6 - 1.3 mg/dL) 0.8 Glomerular Filtr Rate (80 - 90) 81.7 Glucose (70 - 110 mg/dL) 120 H POC Glucose (70 - 110 MG/DL) 154 H Calcium (8.0 - 10.5 mg/dL) 9.2 Magnesium (1.80 - 2.40 mg/dL) 2.10 Coagulation INR (0.8 - 1.2) 1.3 H PTT (Ruslan) (25.0 - 39.5 Seconds) 31.9 PT Patient/Control Mix (9.3 - 12.9 SECONDS) 14. 2 H Hematology WBC (4.5 - 11.0 x10 3/uL) 8.7 8.8 RBC (3.54 - 5.02 x10 6/uL) 2.86 L 2.81 L Hgb (11.0 - 15.0 g/dL) 8.8 L 8.6 L Hct (33.0 - 45.0 %) 25.7 L 25.4 L MCV (81.0 - 99.0 fL) 89.9 90.4 MCH (27.0 - 33.0 pg) 30.8 30.6 MCHC (33.0 - 37.0 g/dL) 34.2 33.9 RDW (11.5 - 14.5 %) 14.6 H 14.5 Plt Count (150 - 400 x10 3/uL) 218 229 MPV (7.0 - 9.0 fL) 9.7 H 10.0 H Neut % (Auto) (56.0 - 77.0 %) 61.5 61.5 Lymph % (Auto) (14.0 - 32.0 %) 27.4 28.2 [place] % (Auto) (4.8 - 9.0 %) 6.7 6.2 Eos % (Auto) (0.3 - 3.7 %) 2.8 2.3 Baso % (Auto) (0.0 - 2.0 %) 0.1 0.2 Neut # (Auto) (2.0 - 7.6 x10 3/uL) 5.36 5.38 Lymph # (Auto) (1.0 - 3.8 x10 3/uL) 2.39 2.47 [place] # (Auto) (0.1 - 0.8 x10 3/uL) 0.58 0.54 Eos # (Auto) (0.0 - 0.2 x10 3/uL) 0.24 H 0.20 Baso # (Auto) (0.0 - 0.2 x10 3/uL) 0.01 0.02 Abs Immat Gran (auto) (0.00 - 0.03 0.13 H 0.14 H x10 3/uL) Add Manual Diff NO NO Immature Gran % (0.0 - 2.0 %) 1.5 1.6 Nucleated RBC % (0 - 0 %) 0.8 H 1.0 H Nucleated RBCs # (Man) (0.0 - 0.1 x10 3/uL) 0.0 7 0.09 06/22 06/22 1358 1110 Chemistry POC Glucose (70 - 110 MG/DL) 228 H 164 H Diagnosis, Assessment Plan Free Text A P: Multivessel CAD Status post CABG x4 Impaired mobility and gait Generalized weakness Postoperative anemia requiring transfusion Diabetes Hyperlipidemia Orthostatic hypotension Plan: Continue PT/OT Out of bed to chair Work on strength, bed mobility, transfers, gait Sternal precautions Increase endurance Fall precautions Monitor p.o. 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 S/P cardioversion Improving with mobility and strength Pt and family want to go home with HH/PT when me dically cleared. Tentatively planning discharge for Sunday Total time was 33minutes > 50% with patient perf orming physical examination, discussing plan of care, goals, therapies, progr ess, medications, labs, discharge planning. All questions answered Rehab attestation: . Electronically Signed by Kalen Castellanos on 0 06/23/22 at 2131 RPT #:[id number] END OF REPORT 2022-06-22 23:32:00-00:00 [facility] Rehab Progress Note REPORT#:[id number] REPORT STATUS: Signed DATE:06/22/22 TIME: 2331 PATIENT: KALA TURPIN UNIT #: [id number] ROOM/BED: [place] [id number] : 57 AGE: 67 SEX: F ATTEND: Reji Patel MD ADM AUTHOR: Leia Castellanos FINISH REPAIR WORKER * ALL edits or amendments must be made on the [employer] document * Subjective Chief complaint: rehab follow-up Pt still in CVICU -seen around 1245 S/p cardioversion now NSR denied pain and sob Pending EGD in am Objective General VS: Vital Signs: Date Time Temp Pulse Resp B/P B/P Pulse O2 O2 F low FiO2 Mean Ox Delivery Rate 06/22 2004 97 Room air 06/23 1999 98.1 06/22 1750 65 23 98 06/22 1702 58 20 144/65 94 98 06/22 1700 58 18 97 06/22 1602 97 Room air 21 06/22 1501 60 16 123/60 87 97 06/22 1500 57 18 97 06/22 1420 63 17 149/65 93 99 06/22 1419 66 23 100 06/22 1400 60 38 98 06/22 1300 60 19 98 06/22 1258 61 18 118/56 80 99 06/22 1233 61 12 100 06/22 1231 99 Room air 06/22 1200 59 15 96 06/22 1113 136/64 92 06/22 1108 69 14 159/72 104 06/22 1104 69 33 06/22 1100 69 17 06/22 1001 72 20 144/65 94 97 06/22 1000 72 18 97 06/22 0937 71 15 174/77 110 97 06/22 0900 58 21 06/22 0800 59 19 06/22 0600 59 17 133/63 90 96 06/22 0500 62 25 06/22 0400 60 13 127/56 82 98 06/22 0400 99 Room air 06/22 0301 58 18 137/64 92 97 06/22 0201 60 17 118/58 80 96 06/22 0100 62 20 152/66 95 97 0330 0001 60 14 134/61 88 97 PATIENT WEIGHT: Weight (lb): 222 Weight (oz): 7.14 Weight (kg): 100.900 Medications: Active Meds + DC'd Last 24 Hrs Amiodarone HCl (CORDARONE) 200 MG BID PO Insulin Human Lispro (HUMALOG) 0 AC HS SUBQ Insulin Human Lispro (HUMALOG) 5 UNIT AC HS SUBQ Sodium Biphosphate/Sodium Phosphate (FLEET ENEMA ADULT) 1 ENEMA ONCE ONE RECTAL (DC) Hydralazine HCl (APRESOLINE) 10 MG Q6H PRN PRN I V Gabapentin (NEURONTIN) 300 MG BID PO Insulin Glargine (Lantus/Semglee) 15 UNIT BEDTIM E SUBQ Paroxetine HCl (PAXIL) 20 MG DAILY PO Multi-Ingredient Mouthwash/Gargle (MAGIC MOUTHWA SH) 10 ML Q4H PRN PRN PO Amiodarone HCl (CORDARONE) 400 MG BID PO (DC) Pantoprazole (PROTONIX) 40 MG 0600,1800 PO Ipratropium [place] (ATROVENT) 500 MCG Q2H PRN P RN INH Cyanocobalamin (Vitamin B-12 500 mcg tab) 500 MC G DAILY PO Ferrous Sulfate (FERROUS SULFATE) 325 MG DAILY P O Amiodarone HCl (AMIODARONE HCL) 450 MG ASDIR IV (CKD) Dextrose/Water (D5%W NON-DEHP) 250 ML Bisacodyl (DULCOLAX) 10 MG ONCE PRN RECTAL Magnesium Hydroxide (MILK OF MAGNESIA) 30 ML ONC E PRN PO Heparin Sodium (HEPARIN 5000 UNITS/ML) 5,000 UNI T Q12HR SUBQ Dextrose/Water (DEXTROSE 10% IN WATER) 250 ML DIR PRN IV (CKD) Insulin Human Regular (HumuLIN R) 100 UNIT ASDIR IV (CKD) Sodium Chloride (SODIUM CHLORIDE 0.9%) 99 ML Dopamine HCl/Dextrose (DOPamine 400MG/D5W 250ML) 250 ML ASDIR IV Clopidogrel Bisulfate (Plavix) 75 MG DAILY PO Polyethylene Glycol (MIRALAX) 17 GM DAILY PO Docusate Sodium (COLACE) 100 MG BID PO Metoprolol Tartrate (LOPRESSOR) 12.5 MG Q12HR PO (r) Sennosides (Senna Lax 8.6 MG TABLET) 17.2 MG BED TIME PO Aspirin (ASPIRIN) 81 MG DAILY PO Acetaminophen (TYLENOL) 650 MG Q4H PRN PRN PO Acetaminophen (TYLENOL) 650 MG Q4H PRN PRN RECTA L Calcium Chloride (CALCIUM CHLORIDE) 1 GM ASDIR P RN IV Dextrose/Water (DEXTROSE 10% IN WATER) 125 ML DIR PRN IV (CKD) Dextrose/Water (DEXTROSE 10% IN WATER) 250 ML DIR PRN IV (CKD) Epinephrine (ADRENALIN CHLORIDE) 4 MG ASDIR IV Dextrose/Water (DEXTROSE 5% WATER) 246 ML Glucagon (GLUCAGON) 1 MG ASDIR PRN IM Ipratropium [place] (ATROVENT) 500 MCG RTQ4H INH (DC) Magnesium Sulfate (MAGNESIUM SULFATE 4GM/SWFI 10 0ML) 100 ML ASDIR PRN IV Magnesium Sulfate (MAGNESIUM SULFATE 2GM/SWFI 50 ML) 50 ML ASDIR PRN IV Magnesium Sulfate/Dextrose (MAGNESIUM SULFATE 1G M/D5W 100ML) 100 ML ASDIR PRN IV Nitroglycerin/Dextrose (NITROGLYCERIN 50,000MCG/ D5W 250ML) 250 ML ASDIR IV Norepinephrine Bitartrate (NOREPINEPHRINE 8 MG/N S 250 ML) 250 ML TITRATE IV Ondansetron HCl (ZOFRAN) 4 MG Q6H PRN PRN IV Potassium Chloride (KCL 20MEQ/SWFI 100ML) 100 ML ASDIR PRN IV Sodium Bicarbonate (SODIUM BICARBONATE) 50 MEQ A SDIR PRN IV Sodium Chloride (SODIUM CHLORIDE 0.9%) 1,000 ML .Q20H IV Sodium Chloride (SODIUM CHLORIDE 0.9%) 250 ML Q2 4H IV Atorvastatin Calcium (LIPITOR) 40 MG 2100 PO Melatonin (Melatonin) 6 MG BEDTIME PO Sodium Chloride (SODIUM CHLORIDE) 20 ML ASDIR IV Acetaminophen (TYLENOL) 650 MG Q4H PRN PRN PO Physical Exam General appearance: alert, awake Psych: alert, oriented x 3 HEENT: anicteric, mucosal membranes moist Neck: supple, no JVD Respiratory: aerating well, clear bilaterally Abdomen: bowel sounds present, non-distended, so ft, non-tender Skin: dry, intact, no rash Musculoskeletal - general: Musculoskeletal - general: swelling (BLE) 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, oriented X 3, CNII-XII intact, normal speech, no motor deficits, no sensory deficits Results Findings/Data: Laboratory Tests: 06/22 06/22 06/22 06/22 2127 2127 1623 1358 Chemistry POC Glucose (70 - 110 MG/DL) 154 H 228 H Coagulation INR (0.8 - 1.2) 1.3 H PTT ([place]) (25.0 - 39.5 Seconds) 31.9 PT Patient/Control Mix (9.3 - 12.9 SECONDS) 14. 2 H Hematology WBC (4.5 - 11.0 x10 3/uL) 8.8 RBC (3.54 - 5.02 x10 6/uL) 2.81 L Hgb (11.0 - 15.0 g/dL) 8.6 L Hct (33.0 - 45.0 %) 25.4 L MCV (81.0 - 99.0 fL) 90.4 MCH (27.0 - 33.0 pg) 30.6 MCHC (33.0 - 37.0 g/dL) 33.9 RDW (11.5 - 14.5 %) 14.5 Plt Count (150 - 400 x10 3/uL) 229 MPV (7.0 - 9.0 fL) 10.0 H Neut % (Auto) (56.0 - 77.0 %) 61.5 Lymph % (Auto) (14.0 - 32.0 %) 28.2 [place] % (Auto) (4.8 - 9.0 %) 6.2 Eos % (Auto) (0.3 - 3.7 %) 2.3 Baso % (Auto) (0.0 - 2.0 %) 0.2 Neut # (Auto) (2.0 - 7.6 x10 3/uL) 5.38 Lymph # (Auto) (1.0 - 3.8 x10 3/uL) 2.47 [place] # (Auto) (0.1 - 0.8 x10 3/uL) 0.54 Eos # (Auto) (0.0 - 0.2 x10 3/uL) 0.20 Baso # (Auto) (0.0 - 0.2 x10 3/uL) 0.02 Abs Immat Gran (auto) (0.00 - 0.03 x10 3/uL) 0. 14 H Add Manual Diff NO Immature Gran % (0.0 - 2.0 %) 1.6 Nucleated RBC % (0 - 0 %) 1.0 H Nucleated RBCs # (Man) (0.0 - 0.1 x10 3/uL) 0.0 9 06/22 06/22 1110 0240 Chemistry Sodium (134 - 147 mEq/L) 142 Potassium (3.4 - 5.0 mEq/L) 4.1 Chloride (100 - 108 mEq/L) 108 Carbon Dioxide (21 - 33 mEq/l) 29 Anion Gap (0 - 20) 9 BUN (7 - 18 mg/dL) 15 Creatinine (0.6 - 1.3 mg/dL) 0.8 Glomerular Filtr Rate (80 - 90) 81.7 Glucose (70 - 110 mg/dL) 147 H POC Glucose (70 - 110 MG/DL) 164 H Calcium (8.0 - 10.5 mg/dL) 8.6 Magnesium (1.80 - 2.40 mg/dL) 1.91 Hematology WBC (4.5 - 11.0 x10 3/uL) 9.8 RBC (3.54 - 5.02 x10 6/uL) 2.76 L Hgb (11.0 - 15.0 g/dL) 8.5 L Hct (33.0 - 45.0 %) 24.8 L MCV (81.0 - 99.0 fL) 89.9 MCH (27.0 - 33.0 pg) 30.8 MCHC (33.0 - 37.0 g/dL) 34.3 RDW (11.5 - 14.5 %) 14.1 Plt Count (150 - 400 x10 3/uL) 208 MPV (7.0 - 9.0 fL) 9.7 H Neut % (Auto) (56.0 - 77.0 %) 65.4 Lymph % (Auto) (14.0 - 32.0 %) 24.4 [place] % (Auto) (4.8 - 9.0 %) 6.7 Eos % (Auto) (0.3 - 3.7 %) 2.0 Baso % (Auto) (0.0 - 2.0 %) 0.2 Neut # (Auto) (2.0 - 7.6 x10 3/uL) 6.41 Lymph # (Auto) (1.0 - 3.8 x10 3/uL) 2.40 [place] # (Auto) (0.1 - 0.8 x10 3/uL) 0.66 Eos # (Auto) (0.0 - 0.2 x10 3/uL) 0.20 Baso # (Auto) (0.0 - 0.2 x10 3/uL) 0.02 Abs Immat Gran (auto) (0.00 - 0.03 x10 3/uL) 0. 13 H Add Manual Diff NO Immature Gran % (0.0 - 2.0 %) 1.3 Nucleated RBC % (0 - 0 %) 1.0 H Nucleated RBCs # (Man) (0.0 - 0.1 x10 3/uL) 0.1 0 Diagnosis, Assessment Plan Free Text A P: Multivessel CAD Status post CABG x4 Impaired mobility and gait Generalized weakness Postoperative anemia requiring transfusion Diabetes Hyperlipidemia Orthostatic hypotension Plan: Continue PT/OT Out of bed to chair Work on strength, bed mobility, transfers, gait Sternal precautions Increase endurance Fall precautions Monitor p.o. 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 S/P cardioversion Also pending possible EGD Improving with mobility and strength Pt and family want to go home with HH/PT when me dically cleare Total time was 35minutes > 50% with patient perf orming physical examination, discussing plan of care, goals, therapies, progr ess, medications, labs, discharge planning. All questions answered Rehab attestation: Face to face exam completed. Treatment plan disc ussed with patient. at 2335 RPT #:[id number] END OF REPORT 2022-06-22 13:26:00-00:00 [facility] Gastroenterology Progress Note REPORT#:[id number] REPORT STATUS: Signed DATE:06/22/22 TIME: 1325 PATIENT: KALA TURPIN UNIT #: [id number] ROOM/BED: [place] [address] : 57 AGE: 67 SEX: F ATTEND: Reji Patel MD ADM AUTHOR: Marivel Covington * ALL edits or amendments must be made on the [employer]/computer document * Marivel Covington 06/22/22 1326: Subjective Patient reports: Yes: bowel movement, passing gas. No: abdominal pain, black stools, nausea, rectal bleeding, vomiting. Comments: Patient is tolerating her diet so far, no issues . Review of Systems Constitutional: Denies: chills, fever. Respiratory: Denies: SOB. Cardiovascular: Denies: chest pain. Neuro: Denies: headache. Objective General VS/I O: Last Documented: Result Date Time Pulse Ox 98 06/22 1750 Pulse 65 06/22 1750 Resp 23 06/22 1750 B/P 144/65 06/22 1702 B/P Mean 94 06/22 1702 FiO2 21 06/22 1602 O2 Delivery Room air 06/22 1602 Temp 36.2 06/21 2000 O2 Flow Rate 0 06/21 1200 24 hour I O ending at 0700: 06/22 0700 06/21 1900 Intake Total 364.00 240 Output Total 975 1150 Balance -611.00 -910 Intake, IV 124.00 Intake, Oral 240 240 Number Voids 4 Output, Urine 975 1150 Patient 100.9 kg Weight Weight Standing scale Measurement Method PATIENT WEIGHT: Weight (lb): 222 Weight (oz): 7.14 Weight (kg): 100.900 Medications: Active Meds + DC'd Last 24 Hrs Amiodarone HCl (CORDARONE) 200 MG BID PO Insulin Human Lispro (HUMALOG) 0 AC HS SUBQ Insulin Human Lispro (HUMALOG) 5 UNIT AC HS SUBQ Sodium Biphosphate/Sodium Phosphate (FLEET ENEMA ADULT) 1 ENEMA ONCE ONE RECTAL (DC) Hydralazine HCl (APRESOLINE) 10 MG Q6H PRN PRN I V Gabapentin (NEURONTIN) 300 MG BID PO Insulin Glargine (Lantus/Semglee) 15 UNIT BEDTIM E SUBQ Lactulose (LACTULOSE) 20 GM ONCE ONE PO (DC) Paroxetine HCl (PAXIL) 20 MG DAILY PO Multi-Ingredient Mouthwash/Gargle (MAGIC MOUTHWA SH) 10 ML Q4H PRN PRN PO Amiodarone HCl (CORDARONE) 400 MG BID PO (DC) Pantoprazole (PROTONIX) 40 MG 0600,1800 PO Ipratropium [place] (ATROVENT) 500 MCG Q2H PRN P RN INH Cyanocobalamin (Vitamin B-12 500 mcg tab) 500 MC G DAILY PO Ferrous Sulfate (FERROUS SULFATE) 325 MG DAILY P O Amiodarone HCl (AMIODARONE HCL) 450 MG ASDIR IV (CKD) Dextrose/Water (D5%W NON-DEHP) 250 ML Bisacodyl (DULCOLAX) 10 MG ONCE PRN RECTAL Magnesium Hydroxide (MILK OF MAGNESIA) 30 ML ONC E PRN PO Heparin Sodium (HEPARIN 5000 UNITS/ML) 5,000 UNI T Q12HR SUBQ Dextrose/Water (DEXTROSE 10% IN WATER) 250 ML A SDIR PRN IV (CKD) Insulin Human Regular (HumuLIN R) 100 UNIT ASDIR IV (CKD) Sodium Chloride (SODIUM CHLORIDE 0.9%) 99 ML Dopamine HCl/Dextrose (DOPamine 400MG/D5W 250ML) 250 ML ASDIR IV Clopidogrel Bisulfate (Plavix) 75 MG DAILY PO Polyethylene Glycol (MIRALAX) 17 GM DAILY PO Docusate Sodium (COLACE) 100 MG BID PO Metoprolol Tartrate (LOPRESSOR) 12.5 MG Q12HR PO (r) Sennosides (Senna Lax 8.6 MG TABLET) 17.2 MG BED TIME PO Aspirin (ASPIRIN) 81 MG DAILY PO Acetaminophen (TYLENOL) 650 MG Q4H PRN PRN PO Acetaminophen (TYLENOL) 650 MG Q4H PRN PRN RECTA L Calcium Chloride (CALCIUM CHLORIDE) 1 GM ASDIR P RN IV Dextrose/Water (DEXTROSE 10% IN WATER) 125 ML DIR PRN IV (CKD) Dextrose/Water (DEXTROSE 10% IN WATER) 250 ML DIR PRN IV (CKD) Epinephrine (ADRENALIN CHLORIDE) 4 MG ASDIR IV Dextrose/Water (DEXTROSE 5% WATER) 246 ML Glucagon (GLUCAGON) 1 MG ASDIR PRN IM Ipratropium [place] (ATROVENT) 500 MCG RTQ4H INH (DC) Magnesium Sulfate (MAGNESIUM SULFATE 4GM/SWFI 10 0ML) 100 ML ASDIR PRN IV Magnesium Sulfate (MAGNESIUM SULFATE 2GM/SWFI 50 ML) 50 ML ASDIR PRN IV Magnesium Sulfate/Dextrose (MAGNESIUM SULFATE 1G M/D5W 100ML) 100 ML ASDIR PRN IV Nitroglycerin/Dextrose (NITROGLYCERIN 50,000MCG/ D5W 250ML) 250 ML ASDIR IV Norepinephrine Bitartrate (NOREPINEPHRINE 8 MG/N S 250 ML) 250 ML TITRATE IV Ondansetron HCl (ZOFRAN) 4 MG Q6H PRN PRN IV Potassium Chloride (KCL 20MEQ/SWFI 100ML) 100 ML ASDIR PRN IV Sodium Bicarbonate (SODIUM BICARBONATE) 50 MEQ A SDIR PRN IV Sodium Chloride (SODIUM CHLORIDE 0.9%) 1,000 ML .Q20H IV Sodium Chloride (SODIUM CHLORIDE 0.9%) 250 ML Q2 4H IV Atorvastatin Calcium (LIPITOR) 40 MG 2100 PO Melatonin (Melatonin) 6 MG BEDTIME PO Sodium Chloride (SODIUM CHLORIDE) 20 ML ASDIR IV Acetaminophen (TYLENOL) 650 MG Q4H PRN PRN PO Dietitian nutrition assessment The data set between the solid lines has been im ported from the dietitian's assessment. BMI Calculated: 42.0 Nutrition related diagnosis: Morbid obesity Nutrition diagnosis details: BMI 40 or more Nutrition problem: Increased nutrient needs Nutrition etiology: SURGERY Nutrition signs and symptoms: ESTIMATED NEEDS Nutrition prescription: 1. CONTINUE REGULAR DIET , ADJUST DIET PER EGD 2. PROVIDE SOFT FOODS, GLUCERNA TID. 3. MONITOR PO, WT, LABS, BM. Dietitian name: Viktoriya Lemos, DIET Assessment completed: 06/21/22 Physical Exam General appearance: alert, awake, oriented HEENT: atraumatic, EOMI, PERRL Neck: no JVD Cardiovascular: irregular rhythm, normal capilla ry refill, normal S1/S2 Respiratory: equal breath sounds, symmetric expa nsion, no distress Abdomen: non-tender, normal bowel sounds , soft, no distention, no guarding, no hernia Extremities: moves all, no edema Musculoskeletal: normal inspection 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, oriented X 3, normal speech Skin: dry, intact, normal color Psychiatry: normal affect, normal judgment/insig ht, normal mood Results Findings/Data: Laboratory Tests 06/22/22 0240: [Embedded Image Not Available] Laboratory Tests 06/22 06/22 06/22 06/22 06/21 1623 1358 1110 0240 2117 Chemistry Sodium (134 - 147 mEq/L) 142 Potassium (3.4 - 5.0 mEq/L) 4.1 Chloride (100 - 108 mEq/L) 108 Carbon Dioxide (21 - 33 mEq/l) 29 Anion Gap (0 - 20) 9 BUN (7 - 18 mg/dL) 15 Creatinine (0.6 - 1.3 mg/dL) 0.8 Glomerular Filtr Rate (80 - 90) 81.7 Glucose (70 - 110 mg/dL) 147 H POC Glucose (70 - 110 MG/DL) 154 H 228 H 164 H 199 H Calcium (8.0 - 10.5 mg/dL) 8.6 Magnesium (1.80 - 2.40 mg/dL) 1.91 Laboratory Tests 06/22 0240 Hematology WBC (4.5 - 11.0 x10 3/uL) 9.8 RBC (3.54 - 5.02 x10 6/uL) 2.76 L Hgb (11.0 - 15.0 g/dL) 8.5 L Hct (33.0 - 45.0 %) 24.8 L MCV (81.0 - 99.0 fL) 89.9 MCH (27.0 - 33.0 pg) 30.8 MCHC (33.0 - 37.0 g/dL) 34.3 RDW (11.5 - 14.5 %) 14.1 Plt Count (150 - 400 x10 3/uL) 208 MPV (7.0 - 9.0 fL) 9.7 H Neut % (Auto) (56.0 - 77.0 %) 65.4 Lymph % (Auto) (14.0 - 32.0 %) 24.4 [place] % (Auto) (4.8 - 9.0 %) 6.7 Eos % (Auto) (0.3 - 3.7 %) 2.0 Baso % (Auto) (0.0 - 2.0 %) 0.2 Neut # (Auto) (2.0 - 7.6 x10 3/uL) 6.41 Lymph # (Auto) (1.0 - 3.8 x10 3/uL) 2.40 [place] # (Auto) (0.1 - 0.8 x10 3/uL) 0.66 Eos # (Auto) (0.0 - 0.2 x10 3/uL) 0.20 Baso # (Auto) (0.0 - 0.2 x10 3/uL) 0.02 Abs Immat Gran (auto) (0.00 - 0.03 x10 3/uL) 0. 13 H Add Manual Diff NO Immature Gran % (0.0 - 2.0 %) 1.3 Nucleated RBC % (0 - 0 %) 1.0 H Nucleated RBCs # (Man) (0.0 - 0.1 x10 3/uL) 0.1 0 Radiology Data: Recent Impressions: RADIOLOGY - XR CHEST 1 V 06/22 0431 Report Impression - Status: SIGNED Entered: 06/22/2022 0916 IMPRESSION: 1. Unchanged left basilar airspace disease. 2. Probable trace left pleural effusion. Impression By: Ana - Srinath Crain M.D. Results: labs reviewed, vital signs reviewed, x- ray personally reviewed Treatment Prophylaxis Treatment Prophylaxis Drain(s)/tube(s): Drain(s)/tube(s): chest Diagnosis, Assessment Plan Problem List/A P: 1. Dysphagia 2. Globus sensation 3. Dyspepsia 4. Constipation 5. Coronary artery disease 6. Afib 7. Anemia 8. S/P CABG x 4 Free Text A P: Patient would like to contin ue current care and diet and defer EGD for now, she would like to consider EGD outpatient Recommendations: 1. Continue with current diet 2. Constipation, continue with current bowel reg imen 3. Aspiration precuations 4. Continue with PPI therapy 5. Serial abdominal exams and will consider abdo meek x rays prn 6. Trend h/h and transfuse prn 7. 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 Further recommendations may follow Consultants: cardiology Attestations Attestation needed: supervising physician Catrachito Shirley 06/22/222054: Diagnosis, Assessment Plan Free Text A P: patient has waivered back and foreth and has finally decided on outpatient EGD and wants to go home; discus sed with Dr Natasha Morrissey, CV service, who requested if she could do EGD as an outpatient Attestations Physician Attestation Agree w/findings plan: Agree with the findings and plan as documented TASHIA Zazueta. at 1834 Electronically Signed by Catrachito Shirley MD on at 2051 RPT #:[id number] END OF REPORT 2022-06-22 11:38:00-00:00 [facility] ([facility]) Cardiology Progress Note REPORT#:[id number] REPORT STATUS: Signed DATE:06/22/22 TIME: 1138 PATIENT: KALA TURPIN UNIT #: [id number] ROOM/BED: [address] : [birth year] AGE: 67 SEX: F ATTEND: Antonio Patel MD ADM AUTHOR: Ursula Perkins PELLET MACHINE OPERATOR * ALL edits or amendments must be made on the [employer]/computer document * Ursula Perkins 06/22/22 1138: Subjective Comments: episode of bradycardia and junctional rhythm ear lier Objective General VS/I O: 24 hour I O ending at 0700: 06/22 0700 06/21 1900 Intake Total 364.00 240 Output Total 975 1150 Balance -611.00 -910 Intake, IV 124.00 Intake, Oral 240 240 Number Voids 4 Output, Urine 975 1150 Patient 100.9 kg Weight Weight Standing scale Measurement Method Vital Signs: Date Time Temp Pulse Resp B/P B/P Pulse O2 O2 F low FiO2 Mean Ox Delivery Rate 06/22 1104 69 33 06/22 1100 69 17 06/22 1001 72 20 144/65 94 97 06/22 1000 72 18 97 06/22 0937 71 15 174/77 110 97 06/22 0900 58 21 06/22 0800 59 19 06/22 0600 59 17 133/63 90 96 06/22 0500 62 25 06/22 0400 60 13 127/56 82 98 06/22 0400 99 Room air 06/22 0301 58 18 137/64 92 97 06/22 0201 60 17 118/58 80 96 06/22 0100 62 20 152/66 95 97 06/22 0001 60 14 134/61 88 97 06/21 2301 59 12 153/68 98 98 06/21 2201 62 30 126/58 84 98 06/21 2128 69 17 160/70 101 98 06/21 2100 72 23 98 06/21 2026 77 16 179/83 119 99 06/22 1999 78 21 06/22 1999 36.2 06/21 1942 98 Room air 06/21 1900 69 14 144/66 95 98 06/21 1847 69 18 98 06/21 1830 69 20 141/64 92 96 06/21 1801 72 17 128/62 89 98 06/21 1800 72 18 98 06/21 1708 67 21 161/70 100 97 06/21 1659 78 17 98 06/21 1600 65 17 169/70 106 97 06/21 1507 96 Room air 06/21 1400 67 24 168/68 105 97 06/21 1300 62 17 162/61 95 97 06/21 1200 36.7 69 21 172/68 107 97 0 PATIENT WEIGHT: Weight (lb): 222 Weight (oz): 7.14 Weight (kg): 100.900 Medications: Active Meds + DC'd Last 24 Hrs Amiodarone HCl (CORDARONE) 200 MG BID PO Paroxetine HCl (PAXIL) 20 MG DAILY PO (DC) Sodium Biphosphate/Sodium Phosphate (FLEET ENEMA ADULT) 1 ENEMA ONCE ONE RECTAL (DC) Hydralazine HCl (APRESOLINE) 10 MG Q6H PRN PRN I V Gabapentin (NEURONTIN) 300 MG BID PO Insulin Glargine (Lantus/Semglee) 15 UNIT BEDTIM E SUBQ Lactulose (LACTULOSE) 20 GM ONCE ONE PO (DC) Paroxetine HCl (PAXIL) 20 MG DAILY PO Multi-Ingredient Mouthwash/Gargle (MAGIC MOUTHWA SH) 10 ML Q4H PRN PRN PO Amiodarone HCl (CORDARONE) 400 MG BID PO (DC) Pantoprazole (PROTONIX) 40 MG 0600,1800 PO Ipratropium [place] (ATROVENT) 500 MCG Q2H PRN P RN INH Cyanocobalamin (Vitamin B-12 500 mcg tab) 500 MC G DAILY PO Ferrous Sulfate (FERROUS SULFATE) 325 MG DAILY P O Insulin Glargine (Lantus/Semglee) 12 UNIT BEDTIM E SUBQ (DC) Amiodarone HCl (AMIODARONE HCL) 450 MG ASDIR IV (CKD) Dextrose/Water (D5%W NON-DEHP) 250 ML Bisacodyl (DULCOLAX) 10 MG ONCE PRN RECTAL Magnesium Hydroxide (MILK OF MAGNESIA) 30 ML ONC E PRN PO Heparin Sodium (HEPARIN 5000 UNITS/ML) 5,000 UNI T Q12HR SUBQ Dextrose/Water (DEXTROSE 10% IN WATER) 250 ML DIR PRN IV (CKD) Insulin Human Regular (HumuLIN R) 100 UNIT ASDIR IV (CKD) Sodium Chloride (SODIUM CHLORIDE 0.9%) 99 ML Dopamine HCl/Dextrose (DOPamine 400MG/D5W 250ML) 250 ML ASDIR IV Clopidogrel Bisulfate (Plavix) 75 MG DAILY PO Polyethylene Glycol (MIRALAX) 17 GM DAILY PO Docusate Sodium (COLACE) 100 MG BID PO Metoprolol Tartrate (LOPRESSOR) 12.5 MG Q12HR PO (DA) Sennosides (Senna Lax 8.6 MG TABLET) 17.2 MG BED TIME PO Aspirin (ASPIRIN) 81 MG DAILY PO Acetaminophen (TYLENOL) 650 MG Q4H PRN PRN PO Acetaminophen (TYLENOL) 650 MG Q4H PRN PRN RECTA L Calcium Chloride (CALCIUM CHLORIDE) 1 GM ASDIR P RN IV Dextrose/Water (DEXTROSE 10% IN WATER) 125 ML DIR PRN IV (CKD) Dextrose/Water (DEXTROSE 10% IN WATER) 250 ML DIR PRN IV (CKD) Epinephrine (ADRENALIN CHLORIDE) 4 MG ASDIR IV Dextrose/Water (DEXTROSE 5% WATER) 246 ML Glucagon (GLUCAGON) 1 MG ASDIR PRN IM Ipratropium [place] (ATROVENT) 500 MCG RTQ4H INH Magnesium Sulfate (MAGNESIUM SULFATE 4GM/SWFI 10 0ML) 100 ML ASDIR PRN IV Magnesium Sulfate (MAGNESIUM SULFATE 2GM/SWFI 50 ML) 50 ML ASDIR PRN IV Magnesium Sulfate/Dextrose (MAGNESIUM SULFATE 1G M/D5W 100ML) 100 ML ASDIR PRN IV Nitroglycerin/Dextrose (NITROGLYCERIN 50,000MCG/ D5W 250ML) 250 ML ASDIR IV Norepinephrine Bitartrate (NOREPINEPHRINE 8 MG/N S 250 ML) 250 ML TITRATE IV Ondansetron HCl (ZOFRAN) 4 MG Q6H PRN PRN IV Oxycodone HCl (ROXICODONE) 5 MG Q4H PRN PRN PO ( DC) Oxycodone HCl (ROXICODONE) 10 MG Q4H PRN PRN PO (DC) Potassium Chloride (KCL 20MEQ/SWFI 100ML) 100 ML ASDIR PRN IV Sodium Bicarbonate (SODIUM BICARBONATE) 50 MEQ A SDIR PRN IV Sodium Chloride (SODIUM CHLORIDE 0.9%) 1,000 ML .Q20H IV Sodium Chloride (SODIUM CHLORIDE 0.9%) 250 ML Q2 4H IV Atorvastatin Calcium (LIPITOR) 40 MG 2100 PO Melatonin (Melatonin) 6 MG BEDTIME PO Sodium Chloride (SODIUM CHLORIDE) 20 ML ASDIR IV Acetaminophen (TYLENOL) 650 MG Q4H PRN PRN PO Physical Exam General appearance: alert, awake Neck: non-tender Cardiovascular: CV assessment: pedal edema, regular rate and rh ythm Respiratory: decreased breath sounds, no distres s Abdomen: soft, non-tender, normal bowel sounds, no distention Genitourinary: urinary catheter, urine Lower extremity: LE assessment: edema, no calf tenderness 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, oriented X 3, normal speech Skin: dry, intact, normal color Psychiatry: normal affect, normal judgment/insig ht, normal mood Results Findings/Data: Laboratory Tests 06/22 06/22 06/21 06/21 1110 0240 2117 1154 Chemistry Sodium (134 - 147 mEq/L) 142 Potassium (3.4 - 5.0 mEq/L) 4.1 Chloride (100 - 108 mEq/L) 108 Carbon Dioxide (21 - 33 mEq/l) 29 Anion Gap (0 - 20) 9 BUN (7 - 18 mg/dL) 15 Creatinine (0.6 - 1.3 mg/dL) 0.8 Glomerular Filtr Rate (80 - 90) 81.7 Glucose (70 - 110 mg/dL) 147 H POC Glucose (70 - 110 MG/DL) 164 H 199 H 160 H Calcium (8.0 - 10.5 mg/dL) 8.6 Magnesium (1.80 - 2.40 mg/dL) 1.91 Laboratory Tests 06/22 0240 Hematology WBC (4.5 - 11.0 x10 3/uL) 9.8 RBC (3.54 - 5.02 x10 6/uL) 2.76 L Hgb (11.0 - 15.0 g/dL) 8.5 L Hct (33.0 - 45.0 %) 24.8 L MCV (81.0 - 99.0 fL) 89.9 MCH (27.0 - 33.0 pg) 30.8 MCHC (33.0 - 37.0 g/dL) 34.3 RDW (11.5 - 14.5 %) 14.1 Plt Count (150 - 400 x10 3/uL) 208 MPV (7.0 - 9.0 fL) 9.7 H Neut % (Auto) (56.0 - 77.0 %) 65.4 Lymph % (Auto) (14.0 - 32.0 %) 24.4 [place] % (Auto) (4.8 - 9.0 %) 6.7 Eos % (Auto) (0.3 - 3.7 %) 2.0 Baso % (Auto) (0.0 - 2.0 %) 0.2 Neut # (Auto) (2.0 - 7.6 x10 3/uL) 6.41 Lymph # (Auto) (1.0 - 3.8 x10 3/uL) 2.40 [place] # (Auto) (0.1 - 0.8 x10 3/uL) 0.66 Eos # (Auto) (0.0 - 0.2 x10 3/uL) 0.20 Baso # (Auto) (0.0 - 0.2 x10 3/uL) 0.02 Abs Immat Gran (auto) (0.00 - 0.03 x10 3/uL) 0. 13 H Add Manual Diff NO Immature Gran % (0.0 - 2.0 %) 1.3 Nucleated RBC % (0 - 0 %) 1.0 H Nucleated RBCs # (Man) (0.0 - 0.1 x10 3/uL) 0.1 0 Laboratory Tests 06/22 0240 Chemistry Magnesium (1.80 - 2.40 mg/dL) 1.91 Radiology data: Recent Impressions: RADIOLOGY - XR CHEST 1 V 06/22 2959 Report Impression - Status: SIGNED Entered: 06/22/2022 0989 IMPRESSION: 1. Unchanged left basilar airspace disease. 2. Probable trace left pleural effusion. Impression By: Ana - Srinath Crain M.D. Results: labs reviewed, vital signs reviewed, [facility] personally rev'd Telemetry Interpretation: sinus rhythm with transient bradycardia Diagnosis, Assessment Plan Plan discussed with: patient, nurse Free Text DxA P Notes Free Text DxA P Notes: 67-year-old female with [facility] history of CAD, MA, prior PCI/MEG 11 years ago, hypertension, diabetes melli tus, CVA, peripheral neuropathy, Charcot's foot who presented to with chest pain. She was taken for left heart catheterization where she wa s found to have multivessel CAD with failed attempt to PCI the CUT OFF SAWYER LAD. Patient is transferred to [facility] facility for surgical revascularization. 1. Multivessel CAD CABG x 4 (LIN-LAD, SVG-Elisabet, SVG-OM, SVG-PDA) Continue aspirin, beta-xander, statin post-op anemia, HH stable negative fluid balance 2. Hypertension BP stable continue BB 3. Diabetes mellitus Manage per primary team 4. Post-operative Afib s/p DCC to sinus rhythm s/p ALAA 06/22 - transient bradycardia, amiodarone decreas ed to 200 mg BID, metoprolol held on amiodarone 400 mg BID Continue supportive care. Julius Washington 06/23/22 1214: Attestations Physician Attestation Agree w/findings plan: Agree with the findings and plan as documented b y [insert JOSE JUAN name]; * my personal evaluation is [ ] at 1141 Electronically Signed by Julius Washington MD on at 1215 RPT #:[id number] END OF REPORT 2022-06-22 10:45:00-00:00 [facility] Hospitalist Progress Note REPORT#:[id number] REPORT STATUS: Signed DATE:06/22/22 TIME: 1045 PATIENT: KALA TURPIN UNIT #: [id number] ROOM/BED: [place] [address] : 57 AGE: 67 SEX: F ATTEND: Reji Patel MD ADM AUTHOR: Bang Patel MD * ALL edits or amendments must be made on the el [employer]/computer document * Subjective Chief complaint: doing well post op. NSR. No complaints HPI: This is 67-year-old female with past medical his tory of stroke, hypertension, hyperlipidemia, diabetes (on insulin), obstructi ve sleep apnea, PAD, 2 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 Presented to the emergency room, was evaluated by cardiology and underwent left h eart cath. Coronary angiogram revealed severe multivessel coronary artery dise ase involving LAD which is totally occluded after the m idportion; diagonal OM branch with proximal stenosis 60 to 70%, left 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 Patient transferred to [facility] for surgical revascularization. Objective General VS/I O: Vital Signs: Date Time Temp Pulse Resp B/P B/P Pulse O2 O2 F low FiO2 Mean Ox Delivery Rate 06/22 0600 59 17 133/63 90 96 06/22 0500 62 25 06/22 0400 60 13 127/56 82 98 06/22 0400 99 Room air 06/22 0301 58 18 137/64 92 97 06/22 0201 60 17 118/58 80 96 06/22 0100 62 20 152/66 95 97 06/22 0001 60 14 134/61 88 97 06/21 2301 59 12 153/68 98 98 06/21 2201 62 30 126/58 84 98 06/21 2128 69 17 160/70 101 98 06/21 2100 72 23 98 06/21 2026 77 16 179/83 119 99 06/21 2000 78 21 06/22 1999 97.2 06/21 1942 98 Room air 06/21 1900 69 14 144/66 95 98 06/21 1847 69 18 98 06/21 1830 69 20 141/64 92 96 06/21 1801 72 17 128/62 89 98 06/21 1800 72 18 98 06/21 1708 67 21 161/70 100 97 06/21 1659 78 17 98 06/21 1600 65 17 169/70 106 97 06/21 1507 96 Room air 21 06/21 1400 67 24 168/68 105 97 06/21 1300 62 17 162/61 95 97 06/21 1200 98.0 69 21 172/68 107 97 0 06/21 1119 97 Nasal 3 cannula 06/21 1100 76 12 157/69 100 96 24 hour I O ending at 0700: 06/22 0700 06/21 1900 Intake Total 364.00 240 Output Total 975 1150 Balance -611.00 -910 Intake, IV 124.00 Intake, Oral 240 240 Number Voids 4 Output, Urine 975 1150 Patient 100.9 kg Weight Weight Standing scale Measurement Method PATIENT WEIGHT: Weight (lb): 222 Weight (oz): 7.14 Weight (kg): 100.900 Physical Exam General appearance: alert, awake, oriented Head/Eyes: atraumatic, clear cornea, EOMI, PERRL A Neck: supple/no meningismus Cardiovascular: normal heart sounds, reg ular rate rhythm, no gallop, no murmur , no rub Respiratory: aerating well, clear to auscultatio n Abdomen: non-tender, normal bowel sounds, soft, no distention Extremities: no clubbing, no cyanosis, no edema Musculoskeletal: normal inspection, painless ran ge of motion 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02 x10 6/uL) 2.76 L Hgb (11.0 - 15.0 g/dL) 8.5 L Hct (33.0 - 45.0 %) 24.8 L MCV (81.0 - 99.0 fL) 89.9 MCH (27.0 - 33.0 pg) 30.8 MCHC (33.0 - 37.0 g/dL) 34.3 RDW (11.5 - 14.5 %) 14.1 Plt Count (150 - 400 x10 3/uL) 208 MPV (7.0 - 9.0 fL) 9.7 H Neut % (Auto) (56.0 - 77.0 %) 65.4 Lymph % (Auto) (14.0 - 32.0 %) 24.4 [place] % (Auto) (4.8 - 9.0 %) 6.7 Eos % (Auto) (0.3 - 3.7 %) 2.0 Baso % (Auto) (0.0 - 2.0 %) 0.2 Neut # (Auto) (2.0 - 7.6 x10 3/uL) 6.41 Lymph # (Auto) (1.0 - 3.8 x10 3/uL) 2.40 [place] # (Auto) (0.1 - 0.8 x10 3/uL) 0.66 Eos # (Auto) (0.0 - 0.2 x10 3/uL) 0.20 Baso # (Auto) (0.0 - 0.2 x10 3/uL) 0.02 Abs Immat Gran (auto) (0.00 - 0.03 x10 3/uL) 0. 13 H Add Manual Diff NO Immature Gran % (0.0 - 2.0 %) 1.3 Nucleated RBC % (0 - 0 %) 1.0 H Nucleated RBCs # (Man) (0.0 - 0.1 x10 3/uL) 0.1 0 Radiology data: Recent Impressions: RADIOLOGY - XR CHEST 1 V 06/22 6682 Report Impression - Status: SIGNED Entered: 06/22/2022 0916 IMPRESSION: 1. Unchanged left basilar airspace disease. 2. Probable trace left pleural effusion. Impression By: Ana - Srinath Crain M.D. Treatment Prophylaxis Treatment Prophylaxis Drain(s)/tube(s): Drain(s)/tube(s): chest Diagnosis, Assessment Plan Consultants: cardiology Free Text DxA P Notes Free text DxA P notes: atrial fibrillation off amio drip converted to NSR CAD cath with multivessel CAD CTS seen Status post 4 vessel CABG today echo wnl Status post CABG Off Levophed off dopamine drip Patient extubated Has 2 chest tubes which have been removed on insulin drip DM on SSI prn monitor sugars closely on insulin drip HLD stable anemia s/p one unit hgb stable food getting stuck in the esophagus GI seen follow labs d/c home soon at 1046 RPT #:[id number] END OF REPORT 2022-06-22 10:22:00-00:00 [facility] ([facility]) Cardiothoracic Surgery Prog REPORT#:[id number] REPORT STATUS: Signed DATE:06/22/22 TIME: 1022 PATIENT: KALA TURPIN UNIT #: [id number] ROOM/BED: [place] [id number] : 57 AGE: 67 SEX: F ATTEND: Reji Patel MD ADM AUTHOR: [facility] * ALL edits or amendments must be made on the [employer]/computer document * General Post-op: day 6 Status post: 06/16/22 CABG x 4 (ILN-LAD, SVG-Elisabet, SVG-OM, SVG-PDA) ALAA EVH (RGSV) Posterior pericardiotomy Subjective Chief complaint: Follow up CABG Resting comfortable, OOB in chair Review of Systems Constitutional: Reports: generalized weakness. Denies: chills, f atigue. Skin: Denies: diaphoresis, ecchymosis, laceration. Allergy/Immun: Denies: anaphylaxis, hives, rhinorrhea. Eyes: Denies: discharge, itching, eye pain. ENT: Denies: earache, mouth pain, throat pain, tootha spencer. Respiratory: Denies: pneumonia, SOB, wheezing. Cardiovascular: Denies: chest pain, palpitations. GI: Denies: abdominal pain, nausea, vomiting. : Denies: dysuria, flank pain. Musculoskeletal: Denies: extremity pain. Heme: Denies: petechiae. Endocrine: Denies: cold intolerance, polyphagia, weight los s. Neuro: Denies: change in LOC, dizziness, seizure, synco pe, unable to speak. All systems rev neg: except as marked Objective General VS/I O Last Documented: Result Date Time Pulse Ox 96 06/22 06 B/P 133/63 06/22 06 B/P Mean 90 06/22 0600 Pulse 59 06/22 0600 Resp 17 06/22 0600 O2 Delivery Room air 06/22 0400 Temp 97.2 06/21 2000 FiO2 21 06/21 1507 O2 Flow Rate 0 06/21 1200 24 hour I O ending at 0700: 06/22 0700 06/21 1900 Intake Total 364.00 240 Output Total 975 1150 Balance -611.00 -910 Intake, IV 124.00 Intake, Oral 240 240 Number Voids 4 Output, Urine 975 1150 Patient 100.9 kg Weight Weight Standing scale Measurement Method PATIENT WEIGHT: Weight (lb): 222 Weight (oz): 7.14 Weight (kg): 100.900 Physical Exam General appearance: alert, awake, oriented Wound/incision: Location: sternal Site condition: edges approximated, incision in tact HEENT: anicteric, mucosal membranes moist, pupil s reactive to light Neck: full range of motion, non-tender, supple/n o meningismus Cardiovascular: normal heart sounds, regular rat e rhythm Respiratory: decreased breath sounds, aerating w ell, symmetric expansion, no distress Abdomen: soft, non-tender Genitourinary: urine Extremities: dry, moves all Musculoskeletal: full range of motion 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, oriented X 3 Skin: dry, intact Psychiatry: normal affect, normal mood Treatment Prophylaxis Treatment Prophylaxis Oxygen: room air Drain(s)/tube(s): Drain(s)/tube(s): chest Diagnosis, Assessment Plan Hospital course to date: Very pleasant 67-year-old female with past medic al history of stroke, hypertension, hyperlipidemia, diabetes (on insul in), obstructive sleep apnea, PAD, 2 MIs in the past statu s post PCI/stenting (on Plavix at home), NonHodgkin' s lymphoma (2006) who was at home working on her computer when she suddenly developed severe chest pain radiating to left sh oulder and jaw. Presented to the emergency room, was evaluated by car diology and underwent left heart cath. Coronary angiogram revealed severe multivessel coronary artery disease involving LAD which is totally occluded after the midporti on; diagonal OM branch with proximal stenosis 60 to 70%, left circumflex wit h 80-90% stenosis. Patient transferred to [facility] for surgical revasc ularization. PLAN Coronary angiogram images re viewed with Dr. Rogel and findings discussed with the patient. Will benefit from surgical revascul arization. Initiate preop work-up for CABG Hold Plavix. Obtain platelet response test to Pl avix Carotid ultrasound Noncontrasted chest BLE venous Doppler for vein mapping and marking Completed echocardiogram Incentive spirometer teaching Physical therapy evaluation given Charcot syndro me and limited mobilization Further recommendations to follow. 06/16/22 CABG x 4 (LIN-LAD, SVG-Elisabet, SVG-OM, SVG-PDA) ALAA EVH (RGSV) Posterior pericardiotomy 06/17/22 POD 1 Patient is alert and oriented, out of bed in dulce ir Labile blood pressure. Minimal pressor requireme nts, levo at 1, wean off as tolerated Transfuse 1 unit PRBC On 2l nasal cannula, encoura ge incentive spirometer use, nebs and deep breathing NSR on nutrition coordinator, no ectopy, epicardial pa cing wires on standby Keep both chest tubes and monitor outputs Cardiac diet Glycemic control on insulin drip, monitor blood sugars, consult endocrinology Bowel regimen protocol PT/OT DVT prophylaxis with SCDs and SQ heparin, GI pro phylaxis with PPI Monitor patient in CVICU Patient seen with Dr. Rogel, plan of care disc ussed with ICU team 06/18 No major events overnight, alert and oriented Wean O2 as tolerated. Encourage I-S On dopamine drip at 3 for renal perfusion; pt smith d low UOP yesterday Off levophed Cr 1.0 from 1.2. Strict I's and O's Chest tubes with minimal output; we will discont inue this morning Bowel regimen Glycemic control with insulin drip. Endocrinolog y following DVT prophylaxis with heparin subq Keep in CVICU today Pt seen and plan reviewed with Dr Rogel 06/19 POD 3 Patient in stable condition. Alert, awake, and o riented, oob in chair CXR and labs reviewed-stable Patient went into afib rvr- recieved amio bolus x 2 and amio drip Rebolus amio this am, Wean dopamine off and micah tor UOP and BP Monitor renal function, Cr 0.7 Strict I Os Cardiac diet, nutritional supplements SSI-glycemic control DVT ppx- SCDs and heparin SQ Continue supportive care in CVICU Rehab consulted Patient seen with Dr. Rogel, plan of care disc ussed with ICU team. 06/20/22 POD 4 Patient recovering well, alert, awake, and orien radha, no distress noted Breathing comfortable on ashlee m air, O2 sats 96%, Encourage I-S and deep breathing CXR shows small right pleural effusion, and stab le pulmonary opacities Remains a-fib rate controlled, on IV amio, rebol us amio today Discontinue staples and central line Diuresis with lasix 20 IV x 1 Strict I Os, daily weights GI consulted for patient fee ling food gets stuck in the middle of the esophagus, possible EGD Rehab following DVT prophylaxis with subq heparin and SCDS Monitor patient in CVICU Patient seen with Dr. Rogel, plan of care disc ussed with ICU team. 06/21/22 POD 5 Patient alert, awake, and oriented, no distress noted Remains in rate controlled a-fib, plan for cardi oversion today- Successful cardioversion into Sinus rhythm Keep O2 sats > 92%, on room air Continue pulmonary toileting, nebs, I-S use Discontinue central line Labs and chest x-ray reviewed- stable Cardiac diet, bowel regimen protocol- give suppo sitory today Pain controlled Daily weights, strict I Os DVT prophylaxis with SCDs and heparin SQ, GI pro phylaxis with PPI Rehab following Continue therapy with PT/OT Patient seen with Dr. Rogel, plan of care disc ussed with multidisciplinary team 06/22 POD 6 Patient alert, awake, and oriented, no distress noted Patient cardioverted to sinus rhtyhm with cardio version. on amiodarone PO. Keep O2 sats > 93%, on room air Continue pulmonary toileting, nebs, I-S use Discontinue central line Labs and chest x-ray reviewed- stable Cardiac diet, bowel regimen protocol- give suppo sitory today BM with enema this am. Daily weights, strict I Os DVT prophylaxis with SCDs and heparin SQ, GI pro phylaxis with PPI Gi following- consider outpaitnet workup. Rehab following- Patient family want to take her home will order home health. Continue therapy with PT/OT Patient seen with Dr. Rogel, plan of care disc ussed with multidisciplinary team Consultants: cardiology at 1602 at 1230 RPT #:[id number] END OF REPORT 2022-06-22 09:10:00-00:00 [facility] ([facility]) Critical Care Progress Note REPORT#:[id number] REPORT STATUS: Signed DATE:06/22/22 TIME: 909 PATIENT: KALA TURPIN UNIT #: [id number] ROOM/BED: [place] [address] : 57 AGE: 67 SEX: F ATTEND: Reji Patel MD ADM AUTHOR: Anna Martinez MD * ALL edits or amendments must be made on the [employer]/computer document * Subjective Chief complaint: s/p CABG x4 (LIN-LAD, SVG-Elisabet, SVG-OM, SVG-PDA) ALAA EVH (RGSV) Posterior pericardiotomy on 06/16/2022 Comments: The patient offers no new complaints No SOB, on room air Had cardioversion yesterday and converted to nor mal sinus rhythm Sinus bradycardia this morning Had a small bowel movement after an enema Afebrile Review of Systems Free Text ROS Notes Free Text ROS Notes: 12 point Review of Systems was performed to the extent possible including discussion with the nursing staff and review of vital signs and all data. All systems negative other than pertinent negative/p ositive findings mentioned in the interval history section. Objective General VS/I O Last Documented: Result Date Time Pulse 69 06/22 1104 Resp 33 06/22 1104 Pulse Ox 97 06/22 1001 B/P 144/65 06/22 1001 B/P Mean 94 06/22 1001 O2 Delivery Room air 06/22 0400 Temp 36.2 06/21 2000 FiO2 21 06/21 1507 O2 Flow Rate 0 06/21 1200 24 hour I O ending at 0700: 06/22 0700 03/29 1900 Intake Total 364.00 240 Output Total 975 1150 Balance -611.00 -910 Intake, IV 124.00 Intake, Oral 240 240 Number Voids 4 Output, Urine 975 1150 Patient 100.9 kg Weight Weight Standing scale Measurement Method PATIENT WEIGHT: Weight (lb): 222 Weight (oz): 7.14 Weight (kg): 100.900 Medications: Active Meds + DC'd Last 24 Hrs Paroxetine HCl (PAXIL) 20 MG DAILY PO (DC) Sodium Biphosphate/Sodium Phosphate (FLEET ENEMA ADULT) 1 ENEMA ONCE ONE RECTAL (DC) Hydralazine HCl (APRESOLINE) 10 MG Q6H PRN PRN I V Gabapentin (NEURONTIN) 300 MG BID PO Insulin Glargine (Lantus/Semglee) 15 UNIT BEDTIM E SUBQ Lactulose (LACTULOSE) 20 GM ONCE ONE PO (DC) Paroxetine HCl (PAXIL) 20 MG DAILY PO Multi-Ingredient Mouthwash/Gargle (MAGIC MOUTHWA SH) 10 ML Q4H PRN PRN PO Bisacodyl (DULCOLAX) 10 MG ONCE ONE RECTAL (DC) Magnesium Hydroxide (MILK OF MAGNESIA) 30 ML ONC E ONE PO (DC) Lidocaine HCl (XYLOCAINE) 0 .STK-MED ONE .ROUTE (DC) Propofol (DIPRIVAN 200MG/20ML INJECTION) 20 ML . STK-MED ONE IV (DC) Amiodarone HCl (CORDARONE) 400 MG BID PO (CKD) Pantoprazole (PROTONIX) 40 MG 0600,1800 PO Ipratropium [place] (ATROVENT) 500 MCG Q2H PRN P RN INH Cyanocobalamin (Vitamin B-12 500 mcg tab) 500 MC G DAILY PO Ferrous Sulfate (FERROUS SULFATE) 325 MG DAILY P O Insulin Glargine (Lantus/Semglee) 12 UNIT BEDTIM E SUBQ (DC) Amiodarone HCl (AMIODARONE HCL) 450 MG ASDIR IV (CKD) Dextrose/Water (D5%W NON-DEHP) 250 ML Bisacodyl (DULCOLAX) 10 MG ONCE PRN RECTAL Magnesium Hydroxide (MILK OF MAGNESIA) 30 ML ONC E PRN PO Heparin Sodium (HEPARIN 5000 UNITS/ML) 5,000 UNI T Q12HR SUBQ Dextrose/Water (DEXTROSE 10% IN WATER) 250 ML DIR PRN IV (CKD) Insulin Human Regular (HumuLIN R) 100 UNIT ASDIR IV (CKD) Sodium Chloride (SODIUM CHLORIDE 0.9%) 99 ML Dopamine HCl/Dextrose (DOPamine 400MG/D5W 250ML) 250 ML ASDIR IV Clopidogrel Bisulfate (Plavix) 75 MG DAILY PO Polyethylene Glycol (MIRALAX) 17 GM DAILY PO Docusate Sodium (COLACE) 100 MG BID PO Metoprolol Tartrate (LOPRESSOR) 12.5 MG Q12HR PO (DA) Sennosides (Senna Lax 8.6 MG TABLET) 17.2 MG BED TIME PO Aspirin (ASPIRIN) 81 MG DAILY PO Acetaminophen (TYLENOL) 650 MG Q4H PRN PRN PO Acetaminophen (TYLENOL) 650 MG Q4H PRN PRN RECTA L Calcium Chloride (CALCIUM CHLORIDE) 1 GM ASDIR P RN IV Dextrose/Water (DEXTROSE 10% IN WATER) 125 ML DIR PRN IV (CKD) Dextrose/Water (DEXTROSE 10% IN WATER) 250 ML DIR PRN IV (CKD) Epinephrine (ADRENALIN CHLORIDE) 4 MG ASDIR IV Dextrose/Water (DEXTROSE 5% WATER) 246 ML Glucagon (GLUCAGON) 1 MG ASDIR PRN IM Ipratropium [place] (ATROVENT) 500 MCG RTQ4H INH Magnesium Sulfate (MAGNESIUM SULFATE 4GM/SWFI 10 0ML) 100 ML ASDIR PRN IV Magnesium Sulfate (MAGNESIUM SULFATE 2GM/SWFI 50 ML) 50 ML ASDIR PRN IV Magnesium Sulfate/Dextrose (MAGNESIUM SULFATE 1G M/D5W 100ML) 100 ML ASDIR PRN IV Nitroglycerin/Dextrose (NITROGLYCERIN 50,000MCG/ D5W 250ML) 250 ML ASDIR IV Norepinephrine Bitartrate (NOREPINEPHRINE 8 MG/N S 250 ML) 250 ML TITRATE IV Ondansetron HCl (ZOFRAN) 4 MG Q6H PRN PRN IV Oxycodone HCl (ROXICODONE) 5 MG Q4H PRN PRN PO ( DC) Oxycodone HCl (ROXICODONE) 10 MG Q4H PRN PRN PO (DC) Potassium Chloride (KCL 20MEQ/SWFI 100ML) 100 ML ASDIR PRN IV Sodium Bicarbonate (SODIUM BICARBONATE) 50 MEQ A SDIR PRN IV Sodium Chloride (SODIUM CHLORIDE 0.9%) 1,000 ML .Q20H IV Sodium Chloride (SODIUM CHLORIDE 0.9%) 250 ML Q2 4H IV Atorvastatin Calcium (LIPITOR) 40 MG 2100 PO Melatonin (Melatonin) 6 MG BEDTIME PO Sodium Chloride (SODIUM CHLORIDE) 20 ML ASDIR IV Acetaminophen (TYLENOL) 650 MG Q4H PRN PRN PO Results Findings/data: Laboratory Tests 06/22 06/21 06/21 0240 2117 1154 Chemistry Sodium (134 - 147 mEq/L) 142 Potassium (3.4 - 5.0 mEq/L) 4.1 Chloride (100 - 108 mEq/L) 108 Carbon Dioxide (21 - 33 mEq/l) 29 Anion Gap (0 - 20) 9 BUN (7 - 18 mg/dL) 15 Creatinine (0.6 - 1.3 mg/dL) 0.8 Glomerular Filtr Rate (80 - 90) 81.7 Glucose (70 - 110 mg/dL) 147 H POC Glucose (70 - 110 MG/DL) 199 H 160 H Calcium (8.0 - 10.5 mg/dL) 8.6 Magnesium (1.80 - 2.40 mg/dL) 1.91 Laboratory Tests 06/22 0240 Hematology WBC (4.5 - 11.0 x10 3/uL) 9.8 RBC (3.54 - 5.02 x10 6/uL) 2.76 L Hgb (11.0 - 15.0 g/dL) 8.5 L Hct (33.0 - 45.0 %) 24.8 L MCV (81.0 - 99.0 fL) 89.9 MCH (27.0 - 33.0 pg) 30.8 MCHC (33.0 - 37.0 g/dL) 34.3 RDW (11.5 - 14.5 %) 14.1 Plt Count (150 - 400 x10 3/uL) 208 MPV (7.0 - 9.0 fL) 9.7 H Neut % (Auto) (56.0 - 77.0 %) 65.4 Lymph % (Auto) (14.0 - 32.0 %) 24.4 [place] % (Auto) (4.8 - 9.0 %) 6.7 Eos % (Auto) (0.3 - 3.7 %) 2.0 Baso % (Auto) (0.0 - 2.0 %) 0.2 Neut # (Auto) (2.0 - 7.6 x10 3/uL) 6.41 Lymph # (Auto) (1.0 - 3.8 x10 3/uL) 2.40 [place] # (Auto) (0.1 - 0.8 x10 3/uL) 0.66 Eos # (Auto) (0.0 - 0.2 x10 3/uL) 0.20 Baso # (Auto) (0.0 - 0.2 x10 3/uL) 0.02 Abs Immat Gran (auto) (0.00 - 0.03 x10 3/uL) 0. 13 H Add Manual Diff NO Immature Gran % (0.0 - 2.0 %) 1.3 Nucleated RBC % (0 - 0 %) 1.0 H Nucleated RBCs # (Man) (0.0 - 0.1 x10 3/uL) 0.1 0 Laboratory Tests 06/22/22 0240: [Embedded Image Not Available] Radiology data Recent Impressions: RADIOLOGY - XR CHEST 1 V 06/22 0527 Report Impression - Status: SIGNED Entered: 06/22/2022 0916 IMPRESSION: 1. Unchanged left basilar airspace disease. 2. Probable trace left pleural effusion. Impression By: Ana - Srinath Crain M.D. Free Text Obj Notes Free Text Obj Notes: GEN: Female in no acute distress, interactive an d conversational HEENT: Atraumatic, normocephalic, moist mucous m embranes NECK: Supple, good range of motion, no tendernes s LUNGS: Symmetrical air entry, no acute respirato ry distress CV: S1, S2 irregularly irregular GI: Abdomen is soft, not tender or distended EXT/Musc: LE edema, no cyanosis. Pedal pulses pr esent Skin: Surgical site clean, dry and intact. Warm to touch NEURO: Awake, alert and oriented x3. No facial d jovani or focal deficit Treatment Prophylaxis Treatment Prophylaxis Drain(s)/tube(s): Drain(s)/tube(s): chest Diagnosis, Assessment Plan Problem list/A P: 1. S/P CABG x 4 2. Coronary artery disease 3. Dysphagia 4. Afib Free text A P: 67 yo F admitted to CVICU s/p CABG x4 (LIN-LAD, SVG-Elisabet, SVG-OM, SVG-PDA) RUBEN NAYAN (RGSV) Posterior pericardiotomy Acute pulm insufficiency following thoracic surg kimberli Diabetes mellitus with hemoglobin A1c 8.3 Acute blood loss anemia from surgery Neuro: keep off sedation, multimodal pain contro l, neurologically at baseline Respiratory: On 2 L nasal cannula wean down as t olerated. Patient has underlying PAULO. We will start her on CPAP. She d oes not know her settings. Start on CPAP at 8, as tolerated, Continue iprat ropium nebs. ABG and chest x- ray reviewed. Cardiovascular: Patient still continues to be hy pertensive. Continue dopamine at 3 mics for now Renal: Patient's creatinine has stabiliz ed at 0.9. Urine output has started to improve. Continue to monitor. Electrolytes are s table. ID: White count slightly high. No fevers. Contin ue to monitor for now GI: Continue bowel regimen. Abdomen is soft. Carolyne erating diet. LFTs stable. Hem: Hemoglobin is stable. Continue to monitor Endo: BG control with insulin gtt per protocol, endocrine consult Misc: PTOT consult, DVT and GI ppx with DAPT and PPI DisPosition is home her will stay with h er 06/19 Appears neuro intact, multimodal pain control Sats well on NC, wean O2, aggressive I-S, CXR re viewed Remains HD stable, A-fib better controlled, on a miodarone drip, hold off on dopamine drip Cr stable, start diuresis, monitor UOP, replete hypomagnesemia, repeat labs Oral diet as tolerated, possible upper GI pathol ogy per speech, consider GI consult No fevers or leukocytosis, no ID issues at this time Hgb appears stable, no evidence of active bleed, CTs removed Blood glucose control with i nsulin drip, transition to SQ insulin per endocrine Encourage PT/OT and out of bed as tolerated, IPR consult DVT and GI prophylaxis with DAPT and PPI 06/20 Remains neuro intact, continue multimodal pain c ontrol Sats well on NC, weaning O2, aggressive I-S, CXR reviewed HD stable, remains in controlled A-fib, rebolus with amiodarone and increase oral dose Cr remains stable, continue diuresis, monitor UO P, obtain labs as needed Oral diet as tolerated, jr l regimen, seen by GI for dysphagia, may need an EGD No fevers or leukocytosis, no ID issues at this time Hgb appears stable, no evidence of active bleedi ng Blood glucose control with insulin drip and Lant us per endocrine Encourage PT/OT and out of bed as tolerated, IPR consulted DVT and GI prophylaxis with DAPT and PPI bid (pe r GI) 06/21 Remains neuro intact, continue multimodal pain c ontrol, on Paxil at home Sats well on NC, weaning O2, aggressive I-S, CXR reviewed Orthostatic but HD stable, remains in A-fib, off amiodarone drip, plan for cardioversion Cr remains stable, hold off on further diuresis, monitor UOP, replete hypokalemia Oral diet as tolerated, bowel regimen, d ysphagia work-up as outpatient if okay with GI No fevers or leukocytosis, no ID issues at this time Hgb appears stable, no evidence of active bleedi ng Blood glucose control with insulin drip and Lant us per endocrine Encourage PT/OT and out of b ed as tolerated, CM for dispo planning, IPR team on board DVT and GI prophylaxis with DAPT and PPI bid (pe r GI) 06/22 On room air Inhaled bronchodilators as needed Incentive spirometry Aspirin and Plavix Amiodarone Atorvastatin, decreased to 200 mg p.o. twice amish ly Metoprolol, on hold today Monitor kidney function and trend creatinine Monitor and replete electrolytes Strict I O's Cardiac diet with bowel regimen Blood glucose control, transition to sliding sca le insulin VTE prophylaxis, DAPT, SCDs Stress ulcer prophylaxis, PPI Discussed with ICU team and CV surgery Critical care time 36 minutes Consultants: cardiology at 1304 RPT #:[id number] END OF REPORT 2022-06-22 00:00:00-00:00 [facility] Hospitalist Progress Note REPORT#:[id number] REPORT STATUS: Signed DATE:06/22/22 TIME: 0000 PATIENT: KALA TURPIN UNIT #: [id number] ROOM/BED: [place] [address] : 57 AGE: 67 SEX: F ATTEND: Rosa Murrell MD ADM AUTHOR: Reva Murrell MD * ALL edits or amendments must be made on the el ectronic/computer document * Subjective Chief complaint: late entry progress note for 06/21/2022 no acute complaints HPI: This is 67-year-old female with past medical his tory of stroke, hypertension, hyperlipidemia, diabetes (on insulin), obstructi ve sleep apnea, PAD, 2 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 Presented to the emergency room, was evaluated by cardiology and underwent left h eart cath. Coronary angiogram revealed severe multivessel coronary artery dise ase involving LAD which is totally occluded after the m idportion; diagonal OM branch with proximal stenosis 60 to 70%, left 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 Patient transferred to [facility] for surgical revascularization. Objective General VS/I O: Vital Signs: Date Time Temp Pulse Resp B/P B/P Pulse O2 O2 F low FiO2 Mean Ox Delivery Rate 06/22 0600 59 17 133/63 90 96 06/22 0500 62 25 06/22 0400 60 13 127/56 82 98 06/22 0400 99 Room air 06/22 0301 58 18 137/64 92 97 06/22 0201 60 17 118/58 80 96 06/22 0100 62 20 152/66 95 97 06/22 0001 60 14 134/61 88 97 06/21 2301 59 12 153/68 98 98 06/21 2201 62 30 126/58 84 98 06/21 2128 69 17 160/70 101 98 06/21 2100 72 23 98 06/21 2026 77 16 179/83 119 99 06/22 1999 78 21 06/22 1999 97.2 06/21 1942 98 Room air 06/21 1900 69 14 144/66 95 98 06/21 1847 69 18 98 06/21 1830 69 20 141/64 92 96 06/21 1801 72 17 128/62 89 98 06/21 1800 72 18 98 06/21 1708 67 21 161/70 100 97 06/21 1659 78 17 98 06/21 1600 65 17 169/70 106 97 06/21 1507 96 Room air 21 06/21 1400 67 24 168/68 105 97 06/21 1300 62 17 162/61 95 97 06/21 1200 98.0 69 21 172/68 107 97 0 06/21 1119 97 Nasal 3 cannula 06/21 1100 76 12 157/69 100 96 06/21 1000 91 14 153/76 102 06/21 0901 143/65 94 06/21 0901 79 15 140/61 88 96 06/21 0900 80 12 146/65 93 97 06/21 0830 132/60 86 06/21 0830 80 10 133/60 85 97 06/21 0801 133/64 92 06/21 0801 77 17 146/68 96 98 06/21 0800 98.1 84 17 146/67 96 98 0 06/21 0746 97 Room air 21 06/21 0700 75 15 105/48 65 98 24 hour I O ending at 0700: 06/22 0700 06/21 1900 Intake Total 364.00 240 Output Total 975 1150 Balance -611.00 -910 Intake, IV 124.00 Intake, Oral 240 240 Number Voids 4 Output, Urine 975 1150 Patient 222 lb Weight Weight Standing scale Measurement Method PATIENT WEIGHT: Weight (lb): 222 Weight (oz): 7.14 Weight (kg): 100.900 Medications: Active Meds + DC'd Last 24 Hrs Paroxetine HCl (PAXIL) 20 MG DAILY PO (DC) Gabapentin (NEURONTIN) 300 MG BID PO Insulin Glargine (Lantus/Semglee) 15 UNIT BEDTIM E SUBQ Lactulose (LACTULOSE) 20 GM ONCE ONE PO (DC) Paroxetine HCl (PAXIL) 20 MG DAILY PO Multi-Ingredient Mouthwash/Gargle (MAGIC MOUTHWA SH) 10 ML Q4H PRN PRN PO Bisacodyl (DULCOLAX) 10 MG ONCE ONE RECTAL (DC) Magnesium Hydroxide (MILK OF MAGNESIA) 30 ML ONC E ONE PO (DC) Lidocaine HCl (XYLOCAINE) 0 .STK-MED ONE .ROUTE (DC) Propofol (DIPRIVAN 200MG/20ML INJECTION) 20 ML . STK-MED ONE IV (DC) Amiodarone HCl (CORDARONE) 400 MG BID PO (CKD) Pantoprazole (PROTONIX) 40 MG 0600,1800 PO Ipratropium [place] (ATROVENT) 500 MCG Q2H PRN P RN INH Cyanocobalamin (Vitamin B-12 500 mcg tab) 500 MC G DAILY PO Ferrous Sulfate (FERROUS SULFATE) 325 MG DAILY P O Insulin Glargine (Lantus/Semglee) 12 UNIT BEDTIM E SUBQ (DC) Amiodarone HCl (AMIODARONE HCL) 450 MG ASDIR IV (CKD) Dextrose/Water (D5%W NON-DEHP) 250 ML Bisacodyl (DULCOLAX) 10 MG ONCE PRN RECTAL Magnesium Hydroxide (MILK OF MAGNESIA) 30 ML ONC E PRN PO Heparin Sodium (HEPARIN 5000 UNITS/ML) 5,000 UNI T Q12HR SUBQ Dextrose/Water (DEXTROSE 10% IN WATER) 250 ML DIR PRN IV (CKD) Insulin Human Regular (HumuLIN R) 100 UNIT ASDIR IV (CKD) Sodium Chloride (SODIUM CHLORIDE 0.9%) 99 ML Dopamine HCl/Dextrose (DOPamine 400MG/D5W 250ML) 250 ML ASDIR IV Clopidogrel Bisulfate (Plavix) 75 MG DAILY PO Polyethylene Glycol (MIRALAX) 17 GM DAILY PO Docusate Sodium (COLACE) 100 MG BID PO Gabapentin (NEURONTIN) 200 MG BID PO (DC) Metoprolol Tartrate (LOPRESSOR) 12.5 MG Q12HR PO Mupirocin (BACTROBAN 2% 22 GM OINTMENT) 1 APPLIC BID NASAL (DC) Sennosides (Senna Lax 8.6 MG TABLET) 17.2 MG BED TIME PO Aspirin (ASPIRIN) 81 MG DAILY PO Acetaminophen (TYLENOL) 650 MG Q4H PRN PRN PO Acetaminophen (TYLENOL) 650 MG Q4H PRN PRN RECTA L Calcium Chloride (CALCIUM CHLORIDE) 1 GM ASDIR P RN IV Dextrose/Water (DEXTROSE 10% IN WATER) 125 ML DIR PRN IV (CKD) Dextrose/Water (DEXTROSE 10% IN WATER) 250 ML DIR PRN IV (CKD) Epinephrine (ADRENALIN CHLORIDE) 4 MG ASDIR IV Dextrose/Water (DEXTROSE 5% WATER) 246 ML Glucagon (GLUCAGON) 1 MG ASDIR PRN IM Ipratropium [place] (ATROVENT) 500 MCG RTQ4H INH Magnesium Sulfate (MAGNESIUM SULFATE 4GM/SWFI 10 0ML) 100 ML ASDIR PRN IV Magnesium Sulfate (MAGNESIUM SULFATE 2GM/SWFI 50 ML) 50 ML ASDIR PRN IV Magnesium Sulfate/Dextrose (MAGNESIUM SULFATE 1G M/D5W 100ML) 100 ML ASDIR PRN IV Nitroglycerin/Dextrose (NITROGLYCERIN 50,000MCG/ D5W 250ML) 250 ML ASDIR IV Norepinephrine Bitartrate (NOREPINEPHRINE 8 MG/N S 250 ML) 250 ML TITRATE IV Ondansetron HCl (ZOFRAN) 4 MG Q6H PRN PRN IV Oxycodone HCl (ROXICODONE) 5 MG Q4H PRN PRN PO ( DC) Oxycodone HCl (ROXICODONE) 10 MG Q4H PRN PRN PO (DC) Potassium Chloride (KCL 20MEQ/SWFI 100ML) 100 ML ASDIR PRN IV Sodium Bicarbonate (SODIUM BICARBONATE) 50 MEQ A SDIR PRN IV Sodium Chloride (SODIUM CHLORIDE 0.9%) 1,000 ML .Q20H IV Sodium Chloride (SODIUM CHLORIDE 0.9%) 250 ML Q2 4H IV Atorvastatin Calcium (LIPITOR) 40 MG 2100 PO Melatonin (Melatonin) 6 MG BEDTIME PO Sodium Chloride (SODIUM CHLORIDE) 20 ML ASDIR IV Acetaminophen (TYLENOL) 650 MG Q4H PRN PRN PO Physical Exam General appearance: no acute distress Head/Eyes: atraumatic, clear cornea, EOMI, PERRL A Neck: supple/no meningismus Cardiovascular: normal heart sounds, reg ular rate rhythm, no gallop, no murmur , no rub Respiratory: aerating well, clear to auscultatio n Abdomen: non-tender, normal bowel sounds, soft, no distention Extremities: no clubbing, no cyanosis, no edema Musculoskeletal: normal inspection, painless ran ge of motion 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02 x10 6/uL) 2.76 L Hgb (11.0 - 15.0 g/dL) 8.5 L Hct (33.0 - 45.0 %) 24.8 L MCV (81.0 - 99.0 fL) 89.9 MCH (27.0 - 33.0 pg) 30.8 MCHC (33.0 - 37.0 g/dL) 34.3 RDW (11.5 - 14.5 %) 14.1 Plt Count (150 - 400 x10 3/uL) 208 MPV (7.0 - 9.0 fL) 9.7 H Neut % (Auto) (56.0 - 77.0 %) 65.4 Lymph % (Auto) (14.0 - 32.0 %) 24.4 [place] % (Auto) (4.8 - 9.0 %) 6.7 Eos % (Auto) (0.3 - 3.7 %) 2.0 Baso % (Auto) (0.0 - 2.0 %) 0.2 Neut # (Auto) (2.0 - 7.6 x10 3/uL) 6.41 Lymph # (Auto) (1.0 - 3.8 x10 3/uL) 2.40 [place] # (Auto) (0.1 - 0.8 x10 3/uL) 0.66 Eos # (Auto) (0.0 - 0.2 x10 3/uL) 0.20 Baso # (Auto) (0.0 - 0.2 x10 3/uL) 0.02 Abs Immat Gran (auto) (0.00 - 0.03 x10 3/uL) 0. 13 H Add Manual Diff NO Immature Gran % (0.0 - 2.0 %) 1.3 Nucleated RBC % (0 - 0 %) 1.0 H Nucleated RBCs # (Man) (0.0 - 0.1 x10 3/uL) 0.1 0 Radiology data: Recent Impressions: RADIOLOGY - XR CHEST 1 V 06/21 0715 Report Impression - Status: SIGNED Entered: 06/21/2022 0916 IMPRESSION: 1. Unchanged left basilar airspace disease. 2. Unchanged small left pleural effusion. No merry dence of pneumothorax. Impression By: [email or web address] - Srinath Crain M.D. Treatment Prophylaxis Treatment Prophylaxis Drain(s)/tube(s): Drain(s)/tube(s): chest Diagnosis, Assessment Plan Consultants: cardiology Free Text DxA P Notes Free text DxA P notes: atrial fibrillation off amio drip converted to NSR CAD cath with multivessel CAD CTS seen Status post 4 vessel CABG today echo wnl Status post CABG Off Levophed off dopamine drip Patient extubated Has 2 chest tubes which have been removed on insulin drip DM on SSI prn monitor sugars closely on insulin drip HLD stable anemia s/p one unit hgb stable food getting stuck in the esophagus GI seen follow labs Electronically Signed by Reva Murrell MD on 0 06/22/22 at 0641 RPT #:[id number] END OF REPORT 2022-06-21 19:28:00-00:00 [facility] Re[facility] Progress Note REPORT#:[id number] REPORT STATUS: Signed DATE:06/21/22 TIME: 1927 PATIENT: KALA TURPIN UNIT #: [id number] ROOM/BED: [place] [id number] : 57 AGE: 67 SEX: F ATTEND: Rosa Murrell MD ADM AUTHOR: Leia Castellanos NP * ALL edits or amendments must be made on the [employer]/computer document * Subjective Chief complaint: rehab follow-up Pt still in CVICU -seen around 9am pending cardioversion denied pain and sob increase anxiety -worried about doing EGD Objective General VS: Vital Signs: Date Time Temp Pulse Resp B/P B/P Pulse O2 O2 F low FiO2 Mean Ox Delivery Rate 06/21 1847 69 18 98 06/21 1830 69 20 141/64 92 96 06/21 1801 72 17 128/62 89 98 06/21 1800 72 18 98 06/21 1708 67 21 161/70 100 97 06/21 1659 78 17 98 06/21 1600 65 17 169/70 106 97 06/21 1507 96 Room air 21 06/21 1400 67 24 168/68 105 97 06/21 1300 62 17 162/61 95 97 06/21 1200 98.0 69 21 172/68 107 97 0 06/21 1119 97 Nasal 3 cannula 06/21 1100 76 12 157/69 100 96 06/21 1000 91 14 153/76 102 06/21 0901 143/65 94 06/21 0901 79 15 140/61 88 96 06/21 0900 80 12 146/65 93 97 06/21 0830 132/60 86 06/21 0830 80 10 133/60 85 97 06/21 0801 133/64 92 06/21 0801 77 17 146/68 96 98 06/21 0800 98.1 84 17 146/67 96 98 0 06/21 0746 97 Room air 21 06/21 0700 75 15 105/48 65 98 06/21 0600 94/56 70 06/21 0600 75 14 113/53 73 96 06/21 0500 81 20 98/50 66 06/21 0403 140/84 107 06/21 0403 87 19 158/77 106 95 06/21 0344 100 Nasal 1 cannula 06/21 0301 115/57 82 06/21 0300 75 20 120/59 80 100 06/21 0200 96/52 68 06/21 0200 77 16 108/53 70 100 06/21 0100 112/56 75 06/21 0100 79 12 140/65 89 100 06/21 0002 138/61 88 06/21 0000 83 11 153/71 101 100 06/20 2300 128/59 85 06/20 2300 78 14 112/51 69 99 06/20 2200 129/64 90 06/20 2200 76 13 132/60 82 100 06/20 2100 129/58 84 06/20 2100 88 11 137/59 83 99 06/21 1999 97.4 06/20 2000 88 21 119/59 80 98 06/20 1946 100 Nasal 1 cannula 06/20 193 Nasal 1 cannula PATIENT WEIGHT: Weight (lb): 222 Weight (oz): 7.14 Weight (kg): 100.900 Medications: Active Meds + DC'd Last 24 Hrs Paroxetine HCl (PAXIL) 20 MG DAILY PO (DC) Insulin Glargine (Lantus/Semglee) 15 UNIT BEDTIM E SUBQ Lactulose (LACTULOSE) 20 GM ONCE ONE PO Paroxetine HCl (PAXIL) 20 MG DAILY PO Multi-Ingredient Mouthwash/Gargle (MAGIC MOUTHWA SH) 10 ML Q4H PRN PRN PO Bisacodyl (DULCOLAX) 10 MG ONCE ONE RECTAL (DC) Magnesium Hydroxide (MILK OF MAGNESIA) 30 ML ONC E ONE PO (DC) Lidocaine HCl (XYLOCAINE) 0 .STK-MED ONE .ROUTE (DC) Propofol (DIPRIVAN 200MG/20ML INJECTION) 20 ML . STK-MED ONE IV (DC) Potassium Chloride (POTASSIUM CHLORIDE 20MEQ TAB .ER) 40 MEQ ONCE ONE PO (DC) Amiodarone HCl (CORDARONE) 400 MG BID PO (CKD) Pantoprazole (PROTONIX) 40 MG 0600,1800 PO Ipratropium [place] (ATROVENT) 500 MCG Q2H PRN P RN INH Cyanocobalamin (Vitamin B-12 500 mcg tab) 500 MC G DAILY PO Ferrous Sulfate (FERROUS SULFATE) 325 MG DAILY P O Insulin Glargine (Lantus/Semglee) 12 UNIT BEDTIM E SUBQ (DC) Amiodarone HCl (AMIODARONE HCL) 450 MG ASDIR IV (CKD) Dextrose/Water (D5%W NON-DEHP) 250 ML Bisacodyl (DULCOLAX) 10 MG ONCE PRN RECTAL Magnesium Hydroxide (MILK OF MAGNESIA) 30 ML ONC E PRN PO Heparin Sodium (HEPARIN 5000 UNITS/ML) 5,000 UNI T Q12HR SUBQ Dextrose/Water (DEXTROSE 10% IN WATER) 250 ML DIR PRN IV (CKD) Insulin Human Regular (HumuLIN R) 100 UNIT ASDIR IV (CKD) Sodium Chloride (SODIUM CHLORIDE 0.9%) 99 ML Dopamine HCl/Dextrose (DOPamine 400MG/D5W 250ML) 250 ML ASDIR IV Clopidogrel Bisulfate (Plavix) 75 MG DAILY PO Polyethylene Glycol (MIRALAX) 17 GM DAILY PO Docusate Sodium (COLACE) 100 MG BID PO Gabapentin (NEURONTIN) 200 MG BID PO (DC) Metoprolol Tartrate (LOPRESSOR) 12.5 MG Q12HR PO Mupirocin (BACTROBAN 2% 22 GM OINTMENT) 1 APPLIC BID NASAL (DC) Sennosides (Senna Lax 8.6 MG TABLET) 17.2 MG BED TIME PO Aspirin (ASPIRIN) 81 MG DAILY PO Acetaminophen (TYLENOL) 650 MG Q4H PRN PRN PO Acetaminophen (TYLENOL) 650 MG Q4H PRN PRN RECT AL Calcium Chloride (CALCIUM CHLORIDE) 1 GM ASDIR P RN IV Dextrose/Water (DEXTROSE 10% IN WATER) 125 ML DIR PRN IV (CKD) Dextrose/Water (DEXTROSE 10% IN WATER) 250 ML DIR PRN IV (CKD) Epinephrine (ADRENALIN CHLORIDE) 4 MG ASDIR IV Dextrose/Water (DEXTROSE 5% WATER) 246 ML Glucagon (GLUCAGON) 1 MG ASDIR PRN IM Ipratropium [place] (ATROVENT) 500 MCG RTQ4H INH Magnesium Sulfate (MAGNESIUM SULFATE 4GM/SWFI 10 0ML) 100 ML ASDIR PRN IV Magnesium Sulfate (MAGNESIUM SULFATE 2GM/SWFI 50 ML) 50 ML ASDIR PRN IV Magnesium Sulfate/Dextrose (MAGNESIUM SULFATE 1G M/D5W 100ML) 100 ML ASDIR PRN IV Nitroglycerin/Dextrose (NITROGLYCERIN 50,000MCG/ D5W 250ML) 250 ML ASDIR IV Norepinephrine Bitartrate (NOREPINEPHRINE 8 MG/N S 250 ML) 250 ML TITRATE IV Ondansetron HCl (ZOFRAN) 4 MG Q6H PRN PRN IV Oxycodone HCl (ROXICODONE) 5 MG Q4H PRN PRN PO ( DC) Oxycodone HCl (ROXICODONE) 10 MG Q4H PRN PRN PO (DC) Potassium Chloride (KCL 20MEQ/SWFI 100ML) 100 ML ASDIR PRN IV Sodium Bicarbonate (SODIUM BICARBONATE) 50 MEQ A SDIR PRN IV Sodium Chloride (SODIUM CHLORIDE 0.9%) 1,000 ML .Q20H IV Sodium Chloride (SODIUM CHLORIDE 0.9%) 250 ML Q2 4H IV Atorvastatin Calcium (LIPITOR) 40 MG 2100 PO Melatonin (Melatonin) 6 MG BEDTIME PO Sodium Chloride (SODIUM CHLORIDE) 20 ML ASDIR IV Acetaminophen (TYLENOL) 650 MG Q4H PRN PRN PO Physical Exam General appearance: alert, awake Psych: anxious, alert, oriented x 3 HEENT: anicteric, mucosal membranes moist Neck: supple, no JVD Respiratory: aerating well, clear bilaterally Abdomen: bowel sounds present, non-distended, so ft, non-tender Skin: dry, intact, no rash Musculoskeletal - general: Musculoskeletal - general: swelling (BLE) 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, 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 X 3, CNII-XII intact, normal speech, no motor deficits, no sensory deficits Results Findings/Data: Laboratory Tests: 06/21 06/21 06/20 1154 0204 2044 Chemistry Sodium (134 - 147 mEq/L) 139 Potassium (3.4 - 5.0 mEq/L) 3.7 Chloride (100 - 108 mEq/L) 107 Carbon Dioxide (21 - 33 mEq/l) 30 Anion Gap (0 - 20) 6 BUN (7 - 18 mg/dL) 17 Creatinine (0.6 - 1.3 mg/dL) 0.8 Glomerular Filtr Rate (80 - 90) 81.7 Glucose (70 - 110 mg/dL) 192 H POC Glucose (70 - 110 MG/DL) 160 H 160 H Calcium (8.0 - 10.5 mg/dL) 8.8 Ionized Calcium Jonas (1.09 - 1.30 MMOL/L) 1.17 Phosphorus (2.5 - 4.9 MG/DL) 2.6 Magnesium (1.80 - 2.40 mg/dL) 2.09 Total Bilirubin (0.0 - 1.0 mg/dL) 0.80 Direct Bilirubin (0.0 - 0.30 MG/DL) 0.30 Indirect Bilirubin (MG/DL) 0.50 AST (15 - 37 IUnit/L) 21 ALT (30 - 65 IUnit/L) 11 L Total Alk Phosphatase (20 - 125 IUnit/L) 78 Total Protein (6.4 - 8.2 g/dL) 5.2 L Albumin (3.4 - 5.0 g/dL) 2.60 L Hematology WBC (4.5 - 11.0 x10 3/uL) 10.0 RBC (3.54 - 5.02 x10 6/uL) 2.92 L Hgb (11.0 - 15.0 g/dL) 8.9 L Hct (33.0 - 45.0 %) 25.6 L MCV (81.0 - 99.0 fL) 87.7 MCH (27.0 - 33.0 pg) 30.5 MCHC (33.0 - 37.0 g/dL) 34.8 RDW (11.5 - 14.5 %) 13.7 Plt Count (150 - 400 x10 3/uL) 211 MPV (7.0 - 9.0 fL) 9.8 H Neut % (Auto) (56.0 - 77.0 %) 61.9 Lymph % (Auto) (14.0 - 32.0 %) 27.7 [place] % (Auto) (4.8 - 9.0 %) 6.6 Eos % (Auto) (0.3 - 3.7 %) 2.4 Baso % (Auto) (0.0 - 2.0 %) 0.3 Neut # (Auto) (2.0 - 7.6 x10 3/uL) 6.19 Lymph # (Auto) (1.0 - 3.8 x10 3/uL) 2.77 [place] # (Auto) (0.1 - 0.8 x10 3/uL) 0.66 Eos # (Auto) (0.0 - 0.2 x10 3/uL) 0.24 H Baso # (Auto) (0.0 - 0.2 x10 3/uL) 0.03 Abs Immat Gran (auto) (0.00 - 0.03 x10 3/uL) 0. 11 H Add Manual Diff NO Immature Gran % (0.0 - 2.0 %) 1.1 Nucleated RBC % (0 - 0 %) 0.6 H Nucleated RBCs # (Man) (0.0 - 0.1 x10 3/uL) 0.0 6 Treatment Prophylaxis Treatment Prophylaxis Drain(s)/tube(s): Drain(s)/tube(s): chest Diagnosis, Assessment Plan Free Text A P: Multivessel CAD Status post CABG x4 Impaired mobility and gait Generalized weakness Postoperative anemia requiring transfusion Diabetes Hyperlipidemia Orthostatic hypotension Plan: Continue PT/OT Out of bed to chair Work on strength, bed mobility, transfers, gait Sternal precautions Increase endurance Fall precautions Monitor p.o. 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 Pt not ready for rehab placement on amiodarone 400 mg BID CTS team planning cardioversion- recommend AC pr e and post cardioversion Also pending possible EGD Total time was 35minutes > 50% with patient perf orming physical examination, discussing plan of care, goals, therapies, progr ess, medications, labs, discharge planning. All questions answered Rehab attestation: Face to face exam completed. Treatment plan disc ussed with patient. at 1931 RPT #:[id number] END OF REPORT 2022-06-21 17:42:00-00:00 [facility] Endocrinology Progress Note REPORT#:[id number] REPORT STATUS: Signed DATE:06/21/22 TIME: 1741 PATIENT: KALA TURPIN UNIT #: [id number] ROOM/BED: [place] [id number] : 57 AGE: 67 SEX: F ATTEND: Rosa Murrell MD ADM AUTHOR: Jurgen Wolf MD * ALL edits or amendments must be made on the [employer]/computer document * Subjective Patient reports: no complaints Objective General VS: Last Documented: Result Date Time Pulse Ox 96 06/21 1507 FiO2 21 06/21 1507 O2 Delivery Room air 06/21 1507 B/P 168/68 06/21 1400 B/P Mean 105 06/21 1400 Pulse 67 06/21 1400 Resp 24 06/21 1400 O2 Flow Rate 0 06/21 1200 Temp 36.7 06/21 1200 PATIENT WEIGHT: Weight (lb): 222 Weight (oz): 7.14 Weight (kg): 100.900 Medications: Active Meds + DC'd Last 24 Hrs Paroxetine HCl (PAXIL) 20 MG DAILY PO (DC) Paroxetine HCl (PAXIL) 20 MG DAILY PO Multi-Ingredient Mouthwash/Gargle (MAGIC MOUTHWA SH) 10 ML Q4H PRN PRN PO Bisacodyl (DULCOLAX) 10 MG ONCE ONE RECTAL (DC) Magnesium Hydroxide (MILK OF MAGNESIA) 30 ML ONC E ONE PO (DC) Lidocaine HCl (XYLOCAINE) 0 .STK-MED ONE .ROUTE (DC) Propofol (DIPRIVAN 200MG/20ML INJECTION) 20 ML . STK-MED ONE IV (DC) Potassium Chloride (POTASSIUM CHLORIDE 20MEQ TAB .ER) 40 MEQ ONCE ONE PO (DC) Amiodarone HCl (CORDARONE) 400 MG BID PO (CKD) Pantoprazole (PROTONIX) 40 MG 0600,1800 PO Potassium Chloride (POTASSIUM CHLORIDE 20MEQ TAB .ER) 40 MEQ ONCE ONE PO (DC) Ipratropium [place] (ATROVENT) 500 MCG Q2H PRN P RN INH Cyanocobalamin (Vitamin B-12 500 mcg tab) 500 MC G DAILY PO Ferrous Sulfate (FERROUS SULFATE) 325 MG DAILY P O Insulin Glargine (Lantus/Semglee) 12 UNIT BEDTIM E SUBQ Amiodarone HCl (AMIODARONE HCL) 450 MG ASDIR IV (CKD) Dextrose/Water (D5%W NON-DEHP) 250 ML Bisacodyl (DULCOLAX) 10 MG ONCE PRN RECTAL Magnesium Hydroxide (MILK OF MAGNESIA) 30 ML ONC E PRN PO Heparin Sodium (HEPARIN 5000 UNITS/ML) 5,000 UNI T Q12HR SUBQ Dextrose/Water (DEXTROSE 10% IN WATER) 250 ML DIR PRN IV (CKD) Insulin Human Regular (HumuLIN R) 100 UNIT ASDIR IV (CKD) Sodium Chloride (SODIUM CHLORIDE 0.9%) 99 ML Dopamine HCl/Dextrose (DOPamine 400MG/D5W 250ML) 250 ML ASDIR IV Clopidogrel Bisulfate (Plavix) 75 MG DAILY PO Polyethylene Glycol (MIRALAX) 17 GM DAILY PO Docusate Sodium (COLACE) 100 MG BID PO Gabapentin (NEURONTIN) 200 MG BID PO (DC) Metoprolol Tartrate (LOPRESSOR) 12.5 MG Q12HR PO Mupirocin (BACTROBAN 2% 22 GM OINTMENT) 1 APPLIC BID NASAL (DC) Sennosides (Senna Lax 8.6 MG TABLET) 17.2 MG BED TIME PO Aspirin (ASPIRIN) 81 MG DAILY PO Acetaminophen (TYLENOL) 650 MG Q4H PRN PRN PO Acetaminophen (TYLENOL) 650 MG Q4H PRN PRN RECTA L Calcium Chloride (CALCIUM CHLORIDE) 1 GM ASDIR P RN IV Dextrose/Water (DEXTROSE 10% IN WATER) 125 ML A SDIR PRN IV (CKD) Dextrose/Water (DEXTROSE 10% IN WATER) 250 ML DIR PRN IV (CKD) Epinephrine (ADRENALIN CHLORIDE) 4 MG ASDIR IV Dextrose/Water (DEXTROSE 5% WATER) 246 ML Glucagon (GLUCAGON) 1 MG ASDIR PRN IM Ipratropium [place] (ATROVENT) 500 MCG RTQ4H INH Magnesium Sulfate (MAGNESIUM SULFATE 4GM/SWFI 10 0ML) 100 ML ASDIR PRN IV Magnesium Sulfate (MAGNESIUM SULFATE 2GM/SWFI 50 ML) 50 ML ASDIR PRN IV Magnesium Sulfate/Dextrose (MAGNESIUM SULFATE 1G M/D5W 100ML) 100 ML ASDIR PRN IV Nitroglycerin/Dextrose (NITROGLYCERIN 50,000MCG/ D5W 250ML) 250 ML ASDIR IV Norepinephrine Bitartrate (NOREPINEPHRINE 8 MG/N S 250 ML) 250 ML TITRATE IV Ondansetron HCl (ZOFRAN) 4 MG Q6H PRN PRN IV Oxycodone HCl (ROXICODONE) 5 MG Q4H PRN PRN PO ( DC) Oxycodone HCl (ROXICODONE) 10 MG Q4H PRN PRN PO (DC) Potassium Chloride (KCL 20MEQ/SWFI 100ML) 100 ML ASDIR PRN IV Sodium Bicarbonate (SODIUM BICARBONATE) 50 MEQ A SDIR PRN IV Sodium Chloride (SODIUM CHLORIDE 0.9%) 1,000 ML .Q20H IV Sodium Chloride (SODIUM CHLORIDE 0.9%) 250 ML Q2 4H IV Atorvastatin Calcium (LIPITOR) 40 MG 2100 PO Melatonin (Melatonin) 6 MG BEDTIME PO Sodium Chloride (SODIUM CHLORIDE) 20 ML ASDIR IV Acetaminophen (TYLENOL) 650 MG Q4H PRN PRN PO Physical Exam General appearance: alert, awake Diagnosis, Assessment Plan Hospital course to date: Laboratory Tests: 06/21 06/21 06/20 1154 0204 2044 Chemistry Sodium (134 - 147 mEq/L) 139 Potassium (3.4 - 5.0 mEq/L) 3.7 Chloride (100 - 108 mEq/L) 107 Carbon Dioxide (21 - 33 mEq/l) 30 Anion Gap (0 - 20) 6 BUN (7 - 18 mg/dL) 17 Creatinine (0.6 - 1.3 mg/dL) 0.8 Glomerular Filtr Rate (80 - 90) 81.7 Glucose (70 - 110 mg/dL) 192 H POC Glucose (70 - 110 MG/DL) 160 H 160 H Calcium (8.0 - 10.5 mg/dL) 8.8 Ionized Calcium Jonas (1.09 - 1.30 MMOL/L) 1.17 Phosphorus (2.5 - 4.9 MG/DL) 2.6 Magnesium (1.80 - 2.40 mg/dL) 2.09 Total Bilirubin (0.0 - 1.0 mg/dL) 0.80 Direct Bilirubin (0.0 - 0.30 MG/DL) 0.30 Indirect Bilirubin (MG/DL) 0.50 AST (15 - 37 IUnit/L) 21 ALT (30 - 65 IUnit/L) 11 L Total Alk Phosphatase (20 - 125 IUnit/L) 78 Total Protein (6.4 - 8.2 g/dL) 5.2 L Albumin (3.4 - 5.0 g/dL) 2.60 L Hematology WBC (4.5 - 11.0 x10 3/uL) 10.0 RBC (3.54 - 5.02 x10 6/uL) 2.92 L Hgb (11.0 - 15.0 g/dL) 8.9 L Hct (33.0 - 45.0 %) 25.6 L MCV (81.0 - 99.0 fL) 87.7 MCH (27.0 - 33.0 pg) 30.5 MCHC (33.0 - 37.0 g/dL) 34.8 RDW (11.5 - 14.5 %) 13.7 Plt Count (150 - 400 x10 3/uL) 211 MPV (7.0 - 9.0 fL) 9.8 H Neut % (Auto) (56.0 - 77.0 %) 61.9 Lymph % (Auto) (14.0 - 32.0 %) 27.7 [place] % (Auto) (4.8 - 9.0 %) 6.6 Eos % (Auto) (0.3 - 3.7 %) 2.4 Baso % (Auto) (0.0 - 2.0 %) 0.3 Neut # (Auto) (2.0 - 7.6 x10 3/uL) 6.19 Lymph # (Auto) (1.0 - 3.8 x10 3/uL) 2.77 [place] # (Auto) (0.1 - 0.8 x10 3/uL) 0.66 Eos # (Auto) (0.0 - 0.2 x10 3/uL) 0.24 H Baso # (Auto) (0.0 - 0.2 x10 3/uL) 0.03 Abs Immat Gran (auto) (0.00 - 0.03 x10 3/uL) 0. 11 H Add Manual Diff NO Immature Gran % (0.0 - 2.0 %) 1.1 Nucleated RBC % (0 - 0 %) 0.6 H Nucleated RBCs # (Man) (0.0 - 0.1 x10 3/uL) 0.0 6 Recent Impressions: RADIOLOGY - XR CHEST 1 V 06/21 0615 Report Impression - Status: SIGNED Entered: 06/21/2022915 IMPRESSION: 1. Unchanged left basilar airspace disease. 2. Unchanged small left pleural effusion. No merry dence of pneumothorax. Impression By: Ana - Srinath Crain M.D. Laboratory Tests: 06/20 06/20 06/20 06/19 06/19 1645 0254 0250 2159 1819 Chemistry Sodium (134 - 147 mEq/L) 139 142 Potassium (3.4 - 5.0 mEq/L) 3.6 4.1 Chloride (100 - 108 mEq/L) 107 110 H Carbon Dioxide (21 - 33 mEq/l) 27 28 Anion Gap (0 - 20) 9 9 BUN (7 - 18 mg/dL) 18 17 Creatinine (0.6 - 1.3 mg/dL) 0.8 0.7 Glomerular Filtr Rate (80 - 90) 81.7 95.9 H Glucose (70 - 110 mg/dL) 151 H 125 H POC Glucose (70 - 110 MG/DL) 126 H 133 H 147 H Calcium (8.0 - 10.5 mg/dL) 9.0 8.8 Ionized Calcium Jonas (1.09 - 1.30 MMOL/L) 1.17 Phosphorus (2.5 - 4.9 MG/DL) 3.7 Magnesium (1.80 - 2.40 mg/dL) 1.99 2.40 Total Bilirubin (0.0 - 1.0 mg/dL) 1.00 Direct Bilirubin (0.0 - 0.30 MG/DL) 0.50 H Indirect Bilirubin (MG/DL) 0.50 AST (15 - 37 IUnit/L) 27 ALT (30 - 65 IUnit/L) 13 L Total Alk Phosphatase (20 - 125 IUnit/L) 68 Total Protein (6.4 - 8.2 g/dL) 5.4 L Albumin (3.4 - 5.0 g/dL) 2.70 L Hematology WBC (4.5 - 11.0 x10 3/uL) 11.2 H RBC (3.54 - 5.02 x10 6/uL) 2.88 L Hgb (11.0 - 15.0 g/dL) 8.8 L Hct (33.0 - 45.0 %) 25.8 L MCV (81.0 - 99.0 fL) 89.6 MCH (27.0 - 33.0 pg) 30.6 MCHC (33.0 - 37.0 g/dL) 34.1 RDW (11.5 - 14.5 %) 13.8 Plt Count (150 - 400 x10 3/uL) 197 MPV (7.0 - 9.0 fL) 10.0 H Neut % (Auto) (56.0 - 77.0 %) 63.8 Lymph % (Auto) (14.0 - 32.0 %) 27.0 [place] % (Auto) (4.8 - 9.0 %) 6.3 Eos % (Auto) (0.3 - 3.7 %) 1.9 Baso % (Auto) (0.0 - 2.0 %) 0.3 Neut # (Auto) (2.0 - 7.6 x10 3/uL) 7.16 Lymph # (Auto) (1.0 - 3.8 x10 3/uL) 3.02 [place] # (Auto) (0.1 - 0.8 x10 3/uL) 0.70 Eos # (Auto) (0.0 - 0.2 x10 3/uL) 0.21 H Baso # (Auto) (0.0 - 0.2 x10 3/uL) 0.03 Abs Immat Gran (auto) (0.00 - 0.03 0.08 H x10 3/uL) Add Manual Diff NO Immature Gran % (0.0 - 2.0 %) 0.7 Nucleated RBC % (0 - 0 %) 0.4 H Nucleated RBCs # (Man) (0.0 - 0.1 0.04 x10 3/uL) Recent Impressions: RADIOLOGY - XR CHEST 1 V 06/20 4280 Report Impression - Status: SIGNED Entered: 06/20/2022 0834 IMPRESSION: 1. New small right pleural effusion. 2. Small residual left apical pneumothorax, stab le to diminished. 3. Stable pulmonary opacities and left basilar p leuroparenchymal disease. Impression By: Adam Sprague M.D. Laboratory Tests: 06/19 06/19 06/19 06/19 06/19 1445 0445 0340 0159 0010 Chemistry Sodium (134 - 147 mEq/L) 141 139 Potassium (3.4 - 5.0 mEq/L) 3.6 4.0 Chloride (100 - 108 mEq/L) 110 H 108 Carbon Dioxide (21 - 33 mEq/l) 29 27 Anion Gap (0 - 20) 5 8 BUN (7 - 18 mg/dL) 18 19 H Creatinine (0.6 - 1.3 mg/dL) 0.7 0.7 Glomerular Filtr Rate (80 - 90) 95.9 H 95.9 H Glucose (70 - 110 mg/dL) 156 H 181 H POC Glucose (70 - 110 MG/DL) 165 H 146 H 125 H Calcium (8.0 - 10.5 mg/dL) 9.0 9.0 Phosphorus (2.5 - 4.9 MG/DL) 1.9 L Magnesium (1.80 - 2.40 mg/dL) 1.86 1.78 L Total Bilirubin (0.0 - 1.0 mg/dL) 1.10 H Direct Bilirubin (0.0 - 0.30 MG/DL) 0.50 H Indirect Bilirubin (MG/DL) 0.60 AST (15 - 37 IUnit/L) 39 H ALT (30 - 65 IUnit/L) 14 L Total Alk Phosphatase (20 - 125 IUnit/L) 61 Total Protein (6.4 - 8.2 g/dL) 5.3 L Albumin (3.4 - 5.0 g/dL) 2.80 L Hematology WBC (4.5 - 11.0 x10 3/uL) 10.3 RBC (3.54 - 5.02 x10 6/uL) 2.80 L Hgb (11.0 - 15.0 g/dL) 8.5 L Hct (33.0 - 45.0 %) 25.1 L MCV (81.0 - 99.0 fL) 89.6 MCH (27.0 - 33.0 pg) 30.4 MCHC (33.0 - 37.0 g/dL) 33.9 RDW (11.5 - 14.5 %) 14.1 Plt Count (150 - 400 x10 3/uL) 104 L MPV (7.0 - 9.0 fL) 10.7 H Neut % (Auto) (56.0 - 77.0 %) 74.7 Lymph % (Auto) (14.0 - 32.0 %) 17.0 [place] % (Auto) (4.8 - 9.0 %) 5.1 Eos % (Auto) (0.3 - 3.7 %) 2.0 Baso % (Auto) (0.0 - 2.0 %) 0.3 Neut # (Auto) (2.0 - 7.6 x10 3/uL) 7.68 H Lymph # (Auto) (1.0 - 3.8 x10 3/uL) 1.75 [place] # (Auto) (0.1 - 0.8 x10 3/uL) 0.52 Eos # (Auto) (0.0 - 0.2 x10 3/uL) 0.21 H Baso # (Auto) (0.0 - 0.2 x10 3/uL) 0.03 Abs Immat Gran (auto) (0.00 - 0.03 0.09 H x10 3/uL) Add Manual Diff NO Immature Gran % (0.0 - 2.0 %) 0.9 Nucleated RBC % (0 - 0 %) 0.2 H Nucleated RBCs # (Man) (0.0 - 0.1 0.02 x10 3/uL) 06/18 Chemistry POC Glucose (70 - 110 MG/DL) 103 114 H Recent Impressions: RADIOLOGY - XR CHEST 1 V 06/19 0705 Report Impression - Status: SIGNED Entered: 06/19/2022 0843 IMPRESSION: 1. Stable postoperative chest following drainage tube removal. 2. Small residual left apical pneumothorax, unch anged. 3. Stable pulmonary opacities and left basilar p leuroparenchymal disease. Impression By: Adam Sprague M.D. Laboratory Tests: 06/18 06/18 06/18 06/18 06/18 1601 1600 1545 1148 0732 Blood Gas Puncture Site Art Line O2 Saturation (90 - 100 %) 97.4 ABG pH (7.35 - 7.45) 7.436 ABG pCO2 (35.0 - 45 mmHg) 41.2 ABG pO2 (80 - 100.0 mmHg) 93.6 ABG HCO3 (22.0 - 26.0 MMOL/L) 27.7 H ABG Total CO2 28.9 ABG Base Excess (-4.0 - 4.0 MMOL/L) 3.5 ABG Hematocrit (33.0 - 45.0 %) 24 L ABG Hemoglobin (11.0 - 15.0 G/DL) 8.1 L Sodium (134 - 147 mmol/L) 140 Potassium (3.4 - 5.0 mmol/L) 4.1 Chloride (100 - 108 mmol/L) 104 Ionized Calcium (1.12 - 1.32 MMOL/L) 1.34 H Lactic Acid (0.9 - 1.7 mmol/l) 0.8 L Temperature (F) 99 O2 Delivery Device Cannula Chemistry Sodium (134 - 147 mEq/L) 141 Potassium (3.4 - 5.0 mEq/L) 4.2 Chloride (100 - 108 mEq/L) 110 H Carbon Dioxide (21 - 33 mEq/l) 26 Anion Gap (0 - 20) 9 BUN (7 - 18 mg/dL) 23 H Creatinine (0.6 - 1.3 mg/dL) 0.9 POC Creatinine (0.6 - 1.0 mg/dL) 0.6 Glomerular Filtr Rate (80 - 90) 71.0 L Glucose (70 - 110 mg/dL) 184 H POC Glucose (70 - 110 MG/DL) 163 H 152 H 193 H POC Glucose (mg/dL) (70 - 110 MG/DL) 175 H Calcium (8.0 - 10.5 mg/dL) 8.9 06/186 225 33 2017 1799 Blood Gas Puncture Site Art Line O2 Saturation (90 - 100 %) 94.9 ABG pH (7.35 - 7.45) 7.317 L ABG pCO2 (35.0 - 45 mmHg) 54.1 *H ABG pO2 (80 - 100.0 mmHg) 83.3 ABG HCO3 (22.0 - 26.0 MMOL/L) 27.7 H ABG Total CO2 29.4 ABG Base Excess (-4.0 - 4.0 MMOL/L) 1.6 ABG Hematocrit (33.0 - 45.0 %) 25 L ABG Hemoglobin (11.0 - 15.0 G/DL) 8.5 L Sodium (134 - 147 mmol/L) 140 Potassium (3.4 - 5.0 mmol/L) 4.2 Chloride (100 - 108 mmol/L) 106 Ionized Calcium (1.12 - 1.32 MMOL/L) 1.35 H Lactic Acid (0.9 - 1.7 mmol/l) 0.8 L O2 Delivery Device HFNC Chemistry Sodium (134 - 147 mEq/L) 141 Potassium (3.4 - 5.0 mEq/L) 4.4 Chloride (100 - 108 mEq/L) 111 H Carbon Dioxide (21 - 33 mEq/l) 26 Anion Gap (0 - 20) 9 BUN (7 - 18 mg/dL) 19 H Creatinine (0.6 - 1.3 mg/dL) 1.0 POC Creatinine (0.6 - 1.0 mg/dL) 1.0 Glomerular Filtr Rate (80 - 90) 62.5 L Glucose (70 - 110 mg/dL) 203 H POC Glucose (70 - 110 MG/DL) 176 H 156 H 155 H POC Glucose (mg/dL) (70 - 110 MG/DL) 206 H Calcium (8.0 - 10.5 mg/dL) 8.8 Magnesium (1.80 - 2.40 mg/dL) 2.21 Total Bilirubin (0.0 - 1.0 mg/dL) 1.00 Direct Bilirubin (0.0 - 0.30 MG/DL) 0.50 H Indirect Bilirubin (MG/DL) 0.50 AST (15 - 37 IUnit/L) 55 H ALT (30 - 65 IUnit/L) 13 L Total Alk Phosphatase (20 - 125 IUnit/L) 59 Total Protein (6.4 - 8.2 g/dL) 5.8 L Albumin (3.4 - 5.0 g/dL) 3.40 TSH (0.42 - 5.47) 0.38 L Free T4 (0.77 - 1.61 ng/dL) 1.2 Hematology WBC (4.5 - 11.0 x10 3/uL) 14.2 H RBC (3.54 - 5.02 x10 6/uL) 2.96 L Hgb (11.0 - 15.0 g/dL) 9.0 L Hct (33.0 - 45.0 %) 26.9 L MCV (81.0 - 99.0 fL) 90.9 MCH (27.0 - 33.0 pg) 30.4 MCHC (33.0 - 37.0 g/dL) 33.5 RDW (11.5 - 14.5 %) 14.7 H Plt Count (150 - 400 x10 3/uL) 90 L MPV (7.0 - 9.0 fL) 10.9 H Neut % (Auto) (56.0 - 77.0 %) 80.1 H Lymph % (Auto) (14.0 - 32.0 %) 12.5 L [place] % (Auto) (4.8 - 9.0 %) 6.3 Eos % (Auto) (0.3 - 3.7 %) 0.2 L Baso % (Auto) (0.0 - 2.0 %) 0.2 Neut # (Auto) (2.0 - 7.6 x10 3/uL) 11.34 H Lymph # (Auto) (1.0 - 3.8 x10 3/uL) 1.77 [place] # (Auto) (0.1 - 0.8 x10 3/uL) 0.89 H Eos # (Auto) (0.0 - 0.2 x10 3/uL) 0.03 Baso # (Auto) (0.0 - 0.2 x10 3/uL) 0.03 Abs Immat Gran (auto) (0.00 - 0.03 0.10 H x10 3/uL) Add Manual Diff NO Immature Gran % (0.0 - 2.0 %) 0.7 Nucleated RBC % (0 - 0 %) 0.1 H Nucleated RBCs # (Man) (0.0 - 0.1 0.02 x10 3/uL) Recent Impressions: RADIOLOGY - XR CHEST 1 V 06/18 0905 Report Impression - Status: SIGNED Entered: 06/18/2022 1028 IMPRESSION: 1. Mild enlarged cardiac silhouette. 2. [id number] pulmonary edema versus infil trates. 3. Linear left perihilar pulmonary atelectasis, scarring. Decreased lung volumes. 4. Left-sided chest tube with small in the thora x in the left apical chest. Impression By: [email or web address] - Victor Manuel Mcallister M.D. 1. Diabetes mellitus type 2 uncontrolled with co mplications. 2. Multivessel coronary artery disease. 3. Status post CABG 4. Hypertension 5. Hyperlipidemia 6. Obesity Blood sugar 192-200 mg/dL. HbA1c 8.3%. Adjust insulin drip settings and start on Lantus at bedtime. Electronically Signed by Jurgen Wolf MD on at 1743 RPT #:[id number] END OF REPORT 2022-06-21 11:47:00-00:00 [facility] Cardioversion Procedure Note REPORT#:[id number] REPORT STATUS: Signed DATE:06/21/22 TIME: 1147 PATIENT: KALA TURPIN UNIT #: [id number] ROOM/BED: [place] [id number] : 57 AGE: 67 SEX: F ATTEND: Jerri Murrell MD ADM AUTHOR: Armand Goff MD * ALL edits or amendments must be made on the Navmii/computer document * Procedure Cardioversion Procedure Indication: atrial fibrillation Informed consent: Yes Plan for sedation: moderate Mod. sedation provided by me: no Airway assessment: adequate Post-procedure diagnosis: Normal sinus rhythm Procedure performed: Cardioversion with 150 then 300 J Performed by: ade kaplan Nutritionists(s): none Findings: Patient was successfully cardioverted from A-fib to NSR Complications: none Electronically Signed by Armand Goff MD on 05/25 12/16 at 1517 RPT #:[id number] END OF REPORT 2022-06-21 11:33:00-00:00 [facility] ([facility]) Gastroenterology Progress Note REPORT#:[id number] REPORT STATUS: Signed DATE:06/21/22 TIME: 1132 PATIENT: KALA TURPIN UNIT #: [id number] ROOM/BED: [place] [address] : 57 AGE: 67 SEX: F ATTEND: Rosa Murrell MD ADM AUTHOR: Marivel Covington * ALL edits or amendments must be made on the Aeropost/computer document * Marivel Covington 06/21/22 1133: Subjective Patient reports: Yes: bowel movement, passing gas. No: abdominal pain, black stools, nausea, rectal bleeding, vomiting. Comments: Patient was able to tolerate her full liquids without issues. Doing well today, awaiting cardioversion Review of Systems Constitutional: Denies: chills, fever. Respiratory: Denies: SOB. Cardiovascular: Denies: chest pain. Neuro: Denies: headache. Objective General VS/I O: Last Documented: Result Date Time Pulse Ox 97 06/21 1400 B/P 168/68 06/21 1400 B/P Mean 105 06/21 1400 Pulse 67 06/21 1400 Resp 24 06/21 1400 O2 Flow Rate 0 06/21 1200 Temp 36.7 06/21 1200 O2 Delivery Nasal cannula 06/21 1119 FiO2 21 06/21 0746 24 hour I O ending at 0700: 06/21 0700 06/20 1900 Intake Total 624.00 Output Total 695 Balance -71.00 Intake, IV 124.00 Intake, Oral 500 Number Voids 4 Output, Urine 695 Patient 100.9 kg Weight Weight Standing scale Measurement Method PATIENT WEIGHT: Weight (lb): 222 Weight (oz): 7.14 Weight (kg): 100.900 Medications: Active Meds + DC'd Last 24 Hrs Paroxetine HCl (PAXIL) 20 MG DAILY PO (DC) Paroxetine HCl (PAXIL) 20 MG DAILY PO Multi-Ingredient Mouthwash/Gargle (MAGIC MOUTHWA SH) 10 ML Q4H PRN PRN PO Bisacodyl (DULCOLAX) 10 MG ONCE ONE RECTAL (DC) Magnesium Hydroxide (MILK OF MAGNESIA) 30 ML ONC E ONE PO (DC) Lidocaine HCl (XYLOCAINE) 0 .STK-MED ONE .ROUTE (DC) Propofol (DIPRIVAN 200MG/20ML INJECTION) 20 ML . STK-MED ONE IV (DC) Potassium Chloride (POTASSIUM CHLORIDE 20MEQ TAB .ER) 40 MEQ ONCE ONE PO (DC) Amiodarone HCl (CORDARONE) 400 MG BID PO (CKD) Pantoprazole (PROTONIX) 40 MG 0600,1800 PO Potassium Chloride (POTASSIUM CHLORIDE 20MEQ TAB .ER) 40 MEQ ONCE ONE PO (DC) Ipratropium [place] (ATROVENT) 500 MCG Q2H PRN P RN INH Cyanocobalamin (Vitamin B-12 500 mcg tab) 500 MC G DAILY PO Ferrous Sulfate (FERROUS SULFATE) 325 MG DAILY P O Insulin Glargine (Lantus/Semglee) 12 UNIT BEDTIM E SUBQ Amiodarone HCl (AMIODARONE HCL) 450 MG ASDIR IV (CKD) Dextrose/Water (D5%W NON-DEHP) 250 ML Bisacodyl (DULCOLAX) 10 MG ONCE PRN RECTAL Magnesium Hydroxide (MILK OF MAGNESIA) 30 ML ONC E PRN PO Heparin Sodium (HEPARIN 5000 UNITS/ML) 5,000 UNI T Q12HR SUBQ Dextrose/Water (DEXTROSE 10% IN WATER) 250 ML DIR PRN IV (CKD) Insulin Human Regular (HumuLIN R) 100 UNIT ASDIR IV (CKD) Sodium Chloride (SODIUM CHLORIDE 0.9%) 99 ML Dopamine HCl/Dextrose (DOPamine 400MG/D5W 250ML) 250 ML ASDIR IV Clopidogrel Bisulfate (Plavix) 75 MG DAILY PO Polyethylene Glycol (MIRALAX) 17 GM DAILY PO Docusate Sodium (COLACE) 100 MG BID PO Gabapentin (NEURONTIN) 200 MG BID PO (DC) Metoprolol Tartrate (LOPRESSOR) 12.5 MG Q12HR PO Mupirocin (BACTROBAN 2% 22 GM OINTMENT) 1 APPLIC BID NASAL (DC) Sennosides (Senna Lax 8.6 MG TABLET) 17.2 MG BED TIME PO Aspirin (ASPIRIN) 81 MG DAILY PO Acetaminophen (TYLENOL) 650 MG Q4H PRN PRN PO Acetaminophen (TYLENOL) 650 MG Q4H PRN PRN RECTA L Calcium Chloride (CALCIUM CHLORIDE) 1 GM ASDIR P RN IV Dextrose/Water (DEXTROSE 10% IN WATER) 125 ML DIR PRN IV (CKD) Dextrose/Water (DEXTROSE 10% IN WATER) 250 ML DIR PRN IV (CKD) Epinephrine (ADRENALIN CHLORIDE) 4 MG ASDIR IV Dextrose/Water (DEXTROSE 5% WATER) 246 ML Glucagon (GLUCAGON) 1 MG ASDIR PRN IM Ipratropium [place] (ATROVENT) 500 MCG RTQ4H INH Magnesium Sulfate (MAGNESIUM SULFATE 4GM/SWFI 10 0ML) 100 ML ASDIR PRN IV Magnesium Sulfate (MAGNESIUM SULFATE 2GM/SWFI 50 ML) 50 ML ASDIR PRN IV Magnesium Sulfate/Dextrose (MAGNESIUM SULFATE 1G M/D5W 100ML) 100 ML ASDIR PRN IV Nitroglycerin/Dextrose (NITROGLYCERIN 50,000MCG/ D5W 250ML) 250 ML ASDIR IV Norepinephrine Bitartrate (NOREPINEPHRINE 8 MG/N S 250 ML) 250 ML TITRATE IV Ondansetron HCl (ZOFRAN) 4 MG Q6H PRN PRN IV Oxycodone HCl (ROXICODONE) 5 MG Q4H PRN PRN PO ( DC) Oxycodone HCl (ROXICODONE) 10 MG Q4H PRN PRN PO (DC) Potassium Chloride (KCL 20MEQ/SWFI 100ML) 100 ML ASDIR PRN IV Sodium Bicarbonate (SODIUM BICARBONATE) 50 MEQ A SDIR PRN IV Sodium Chloride (SODIUM CHLORIDE 0.9%) 1,000 ML .Q20H IV Sodium Chloride (SODIUM CHLORIDE 0.9%) 250 ML Q2 4H IV Atorvastatin Calcium (LIPITOR) 40 MG 2100 PO Melatonin (Melatonin) 6 MG BEDTIME PO Sodium Chloride (SODIUM CHLORIDE) 20 ML ASDIR IV Acetaminophen (TYLENOL) 650 MG Q4H PRN PRN PO Dietitian nutrition assessment The data set between the solid lines has been im ported from the dietitian's assessment. BMI Calculated: 42.0 Nutrition related diagnosis: Morbid obesity Nutrition diagnosis details: BMI 40 or more Nutrition problem: Increased nutrient needs Nutrition etiology: SURGERY Nutrition signs and symptoms: ESTIMATED NEEDS Nutrition prescription: 1. CONTINUE REGULAR DIET , ADJUST DIET PER EGD 2. PROVIDE SOFT FOODS, GLUCERNA TID. 3. MONITOR PO, WT, LABS, BM. Dietitian name: Viktoriya Lemos, DIET Assessment completed: 06/21/22 Physical Exam General appearance: alert, awake, oriented HEENT: atraumatic, EOMI, PERRL Neck: no JVD Cardiovascular: irregular rhythm, normal capilla ry refill, normal S1/S2 Respiratory: equal breath sounds, symmetric expa nsion, no distress Abdomen: abnormal bowel sounds, distended (mildl y), non-tender, soft, no guarding, no hernia Extremities: moves all, no edema Musculoskeletal: normal inspection 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, oriented X 3, normal speech Skin: dry, intact, normal color Psychiatry: anxious, normal judgment/insight Results Findings/Data: Laboratory Tests 06/21/22 0204: [Embedded Image Not Available] 06/20/22 1645: [Embedded Image Not Available] Laboratory Tests 06/21 06/21 06/20 06/20 1154 0204 2044 1645 Chemistry Sodium (134 - 147 mEq/L) 139 139 Potassium (3.4 - 5.0 mEq/L) 3.7 3.6 Chloride (100 - 108 mEq/L) 107 107 Carbon Dioxide (21 - 33 mEq/l) 30 27 Anion Gap (0 - 20) 6 9 BUN (7 - 18 mg/dL) 17 18 Creatinine (0.6 - 1.3 mg/dL) 0.8 0.8 Glomerular Filtr Rate (80 - 90) 81.7 81.7 Glucose (70 - 110 mg/dL) 192 H 151 H POC Glucose (70 - 110 MG/DL) 160 H 160 H Calcium (8.0 - 10.5 mg/dL) 8.8 9.0 Ionized Calcium Jonas (1.09 - 1.30 MMOL/L) 1.17 Phosphorus (2.5 - 4.9 MG/DL) 2.6 Magnesium (1.80 - 2.40 mg/dL) 2.09 1.99 Total Bilirubin (0.0 - 1.0 mg/dL) 0.80 Direct Bilirubin (0.0 - 0.30 MG/DL) 0.30 Indirect Bilirubin (MG/DL) 0.50 AST (15 - 37 IUnit/L) 21 ALT (30 - 65 IUnit/L) 11 L Total Alk Phosphatase (20 - 125 IUnit/L) 78 Total Protein (6.4 - 8.2 g/dL) 5.2 L Albumin (3.4 - 5.0 g/dL) 2.60 L Laboratory Tests 06/21 0204 Hematology WBC (4.5 - 11.0 x10 3/uL) 10.0 RBC (3.54 - 5.02 x10 6/uL) 2.92 L Hgb (11.0 - 15.0 g/dL) 8.9 L Hct (33.0 - 45.0 %) 25.6 L MCV (81.0 - 99.0 fL) 87.7 MCH (27.0 - 33.0 pg) 30.5 MCHC (33.0 - 37.0 g/dL) 34.8 RDW (11.5 - 14.5 %) 13.7 Plt Count (150 - 400 x10 3/uL) 211 MPV (7.0 - 9.0 fL) 9.8 H Neut % (Auto) (56.0 - 77.0 %) 61.9 Lymph % (Auto) (14.0 - 32.0 %) 27.7 [place] % (Auto) (4.8 - 9.0 %) 6.6 Eos % (Auto) (0.3 - 3.7 %) 2.4 Baso % (Auto) (0.0 - 2.0 %) 0.3 Neut # (Auto) (2.0 - 7.6 x10 3/uL) 6.19 Lymph # (Auto) (1.0 - 3.8 x10 3/uL) 2.77 [place] # (Auto) (0.1 - 0.8 x10 3/uL) 0.66 Eos # (Auto) (0.0 - 0.2 x10 3/uL) 0.24 H Baso # (Auto) (0.0 - 0.2 x10 3/uL) 0.03 Abs Immat Gran (auto) (0.00 - 0.03 x10 3/uL) 0 .11 H Add Manual Diff NO Immature Gran % (0.0 - 2.0 %) 1.1 Nucleated RBC % (0 - 0 %) 0.6 H Nucleated RBCs # (Man) (0.0 - 0.1 x10 3/uL) 0.0 6 Radiology Data: Recent Impressions: RADIOLOGY - XR CHEST 1 V 06/21 0715 Report Impression - Status: SIGNED Entered: 06/21/2022 0916 IMPRESSION: 1. Unchanged left basilar airspace disease. 2. Unchanged small left pleural effusion. No merry dence of pneumothorax. Impression By: Ana - Srinath Crain M.D. Results: labs reviewed, vital signs reviewed, x- ray personally reviewed Treatment Prophylaxis Treatment Prophylaxis Drain(s)/tube(s): Drain(s)/tube(s): chest Diagnosis, Assessment Plan Problem List/A P: 1. Dysphagia 2. Globus sensation 3. Dyspepsia 4. Constipation 5. Coronary artery disease 6. Afib 7. Anemia 8. S/P CABG x 4 Free Text A P: Had a small BM. Patient would like to co ntinue current care and diet and defer EGD for now Recommendations: 1. Continue with current diet 2. Constipation, continue with current bowel reg imen, if no BM later today, okay to give dulc supp 3. Aspiration precuations 4. Continue with PPI therapy 5. Serial abdominal exams and will consider abdo meek x rays prn 6. Trend h/h and transfuse prn 7. 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 Further recommendations may follow Consultants: cardiology Attestations Attestation needed: supervising physician Catrachito Shirley 06/21/22 2316: Attestations Physician Attestation Agree w/findings plan: Agree with the findings and plan as documented TASHIA Zazueta. at [id number] Electronically Signed by Catrachito Shirley MD on at 0096 RPT #:[id number] END OF REPORT 2022-06-21 11:25:00-00:00 [id number] [place] [id number] PATIENT NAME: KALA TURPIN ADMIT DATE: 06/15/22 ACCOUNT NO: [id number] ROOM NO: [facility] AGE: 67 REPORT TYPE: eELECTROCARDIOGRAM REPORT SEX: F ADMITTING PHYSICIAN:LOUIS, GENERIC FOR EDM ATTENDING PHYSICIAN:Reva Murrell MD Order: [id number] Test Reason : , Test Date/Time Stamp: SunJun 21 2022 11:25:00 Blood Pressure : / mmHG Vent. Rate : 079 BPM Atrial Rate : 079 BPM P-R Int : 162 ms QRS Dur : 092 ms QT Int : 428 ms P-R-T Axes : 086 095 058 degree s QTc Int : 490 ms Poor data quality, interpretation may be adv ersely affected Normal sinus rhythm Rightward axis Pulmonary disease pattern Nonspecific ST and T wave abnormality Abnormal ECG When compared with ECG of 18-JUN-2022 06:30, No changes Confirmed by MD WALDROP GERARD ([id number]) on 06/23/19 7:07:05 AM Referred By: Reva Murrell Confirmed by:AMARA NAVARRETE MD Electronically Signed by Amara Waldrop MD on 0 06/22/22 at 0707 PATIENT NAME: KALA TURPIN 16 2022-06-21 10:57:00-00:00 [facility] REPORT#:[id number] REPORT STATUS: Signed DATE:06/21/22 TIME: 105 PATIENT: KALA TURPIN UNIT #: [id number] ROOM/BED: [place] [id number] : 57 AGE: 67 SEX: F ATTEND: Reji Patel MD ADM AUTHOR: Ursula Perkins PELLET MACHINE OPERATOR * ALL edits or amendments must be made on the el ectronic/computer document * Ursula Perkins 06/21/22 1057: Subjective Comments: Weakness. Exertional SOB. Objective General VS/I O: 24 hour I O ending at 0700: 06/21 0700 03/28 1900 Intake Total 624.00 Output Total 695 Balance -71.00 Intake, IV 124.00 Intake, Oral 500 Number Voids 4 Output, Urine 695 Patient 100.9 kg Weight Weight Standing scale Measurement Method Vital Signs: Date Time Temp Pulse Resp B/P B/P Pulse O2 O2 F low FiO2 Mean Ox Delivery Rate 06/21 0600 94/56 70 06/21 0600 75 14 113/53 73 96 06/21 0500 81 20 98/50 66 06/21 0403 140/84 107 06/21 0403 87 19 158/77 106 95 06/21 0344 100 Nasal 1 cannula 06/21 0301 115/57 82 06/21 0300 75 20 120/59 80 100 06/21 0200 96/52 68 06/21 0200 77 16 108/53 70 100 06/21 0100 112/56 75 06/21 0100 79 12 140/65 89 100 06/21 0002 138/61 88 06/21 0000 83 11 153/71 101 100 06/20 2300 128/59 85 06/20 2300 78 14 112/51 69 99 06/20 2200 129/64 90 06/20 2200 76 13 132/60 82 100 06/20 2100 129/58 84 06/20 2100 88 11 137/59 83 99 06/21 1999 36.3 06/20 2000 88 21 119/59 80 98 06/20 1946 100 Nasal 1 cannula 06/20 1930 Nasal 1 cannula 06/20 1900 81 22 122/64 86 98 06/20 1645 83 22 145/72 99 98 06/20 1615 143/67 96 06/20 1604 139/77 102 06/20 1600 155/69 99 06/20 1600 76 16 161/72 102 96 06/20 1530 138/65 94 06/20 1530 89 13 144/71 99 96 06/20 1515 139/63 91 06/20 1515 77 16 143/68 95 97 06/20 1502 79 13 149/72 101 97 06/20 1500 136/60 86 06/20 1500 82 14 147/71 100 97 06/20 1445 133/62 89 06/20 1445 77 13 149/67 93 98 06/20 1430 115/69 88 06/20 1430 79 14 142/66 91 97 06/20 1415 120/58 83 03/28 1415 77 13 138/67 90 96 06/20 1401 117/64 82 06/20 1401 83 32 142/67 91 97 06/20 1400 77 17 140/65 89 97 06/20 1330 107/57 76 06/20 1330 78 19 118/54 74 97 06/20 1315 99/51 73 06/20 1315 78 13 109/51 69 97 06/20 1300 104/52 74 06/20 1300 78 14 97/46 62 96 06/20 1245 100/55 72 06/20 1245 75 14 96/49 64 97 06/20 1230 93/51 68 06/20 1230 74 14 96/49 64 98 06/20 1215 97/55 70 06/20 1215 71 19 101/56 71 99 06/20 1201 89/57 69 06/20 1201 69 15 108/55 71 97 06/20 1200 75 14 109/56 73 97 06/20 1145 103/52 74 06/20 1145 76 22 120/59 78 98 06/20 1142 94/51 67 06/20 1142 76 15 123/61 79 98 06/20 1136 74 15 99/51 69 99 06/20 1124 76 17 06/20 1124 91/55 69 06/20 1122 74 22 06/20 1120 82/59 66 06/20 1120 75 25 280/280 280 06/20 1101 114/56 80 06/20 1101 37.1 67 13 124/63 83 97 06/20 1100 37.1 72 12 125/63 84 97 PATIENT WEIGHT: Weight (lb): 222 Weight (oz): 7.14 Weight (kg): 100.900 Medications: Active Meds + DC'd Last 24 Hrs Paroxetine HCl (PAXIL) 20 MG DAILY PO (UNV) Bisacodyl (DULCOLAX) 10 MG ONCE ONE RECTAL (UNV) Magnesium Hydroxide (MILK OF MAGNESIA) 30 ML ONC E ONE PO (UNV) Potassium Chloride (POTASSIUM CHLORIDE 20MEQ TAB .ER) 40 MEQ ONCE ONE PO (DC) Amiodarone HCl (CORDARONE) 400 MG BID PO (CKD) Pantoprazole (PROTONIX) 40 MG 0600,1800 PO Potassium Chloride (POTASSIUM CHLORIDE 20MEQ TAB .ER) 40 MEQ ONCE ONE PO (DC) Amiodarone HCl (NEXTERONE 150MG/D5W 100ML) 100 M L STAT STA IV (DC) Ipratropium [place] (ATROVENT) 500 MCG Q2H PRN P RN INH Cyanocobalamin (Vitamin B-12 500 mcg tab) 500 MC G DAILY PO Ferrous Sulfate (FERROUS SULFATE) 325 MG DAILY P O Insulin Glargine (Lantus/Semglee) 12 UNIT BEDTIM E SUBQ Amiodarone HCl (AMIODARONE HCL) 450 MG ASDIR IV (CKD) Dextrose/Water (D5%W NON-DEHP) 250 ML Bisacodyl (DULCOLAX) 10 MG ONCE PRN RECTAL Magnesium Hydroxide (MILK OF MAGNESIA) 30 ML ONC E PRN PO Heparin Sodium (HEPARIN 5000 UNITS/ML) 5,000 UNI T Q12HR SUBQ Dextrose/Water (DEXTROSE 10% IN WATER) 250 ML DIR PRN IV (CKD) Insulin Human Regular (HumuLIN R) 100 UNIT ASDIR IV (CKD) Sodium Chloride (SODIUM CHLORIDE 0.9%) 99 ML Dopamine HCl/Dextrose (DOPamine 400MG/D5W 250ML) 250 ML ASDIR IV Clopidogrel Bisulfate (Plavix) 75 MG DAILY PO Polyethylene Glycol (MIRALAX) 17 GM DAILY PO Pantoprazole (PROTONIX) 40 MG DAILY@0600 PO (DC) Docusate Sodium (COLACE) 100 MG BID PO Gabapentin (NEURONTIN) 200 MG BID PO (DC) Metoprolol Tartrate (LOPRESSOR) 12.5 MG Q12HR PO Mupirocin (BACTROBAN 2% 22 GM OINTMENT) 1 APPLIC BID NASAL (DC) Sennosides (Senna Lax 8.6 MG TABLET) 17.2 MG BED TIME PO Aspirin (ASPIRIN) 81 MG DAILY PO Amiodarone HCl (CORDARONE) 200 MG TID PO (DC) Acetaminophen (TYLENOL) 650 MG Q4H PRN PRN PO Acetaminophen (TYLENOL) 650 MG Q4H PRN PRN RECTA L Calcium Chloride (CALCIUM CHLORIDE) 1 GM ASDIR P RN IV Dextrose/Water (DEXTROSE 10% IN WATER) 125 ML DIR PRN IV (CKD) Dextrose/Water (DEXTROSE 10% IN WATER) 250 ML DIR PRN IV (CKD) Epinephrine (ADRENALIN CHLORIDE) 4 MG ASDIR IV Dextrose/Water (DEXTROSE 5% WATER) 246 ML Glucagon (GLUCAGON) 1 MG ASDIR PRN IM Ipratropium [place] (ATROVENT) 500 MCG RTQ4H INH Magnesium Sulfate (MAGNESIUM SULFATE 4GM/SWFI 10 0ML) 100 ML ASDIR PRN IV Magnesium Sulfate (MAGNESIUM SULFATE 2GM/SWFI 50 ML) 50 ML ASDIR PRN IV Magnesium Sulfate/Dextrose (MAGNESIUM SULFATE 1G M/D5W 100ML) 100 ML ASDIR PRN IV Nitroglycerin/Dextrose (NITROGLYCERIN 50,000MCG/ D5W 250ML) 250 ML ASDIR IV Norepinephrine Bitartrate (NOREPINEPHRINE 8 MG/N S 250 ML) 250 ML TITRATE IV Ondansetron HCl (ZOFRAN) 4 MG Q6H PRN PRN IV Oxycodone HCl (ROXICODONE) 5 MG Q4H PRN PRN PO Oxycodone HCl (ROXICODONE) 10 MG Q4H PRN PRN PO Potassium Chloride (KCL 20MEQ/SWFI 100ML) 100 ML ASDIR PRN IV Sodium Bicarbonate (SODIUM BICARBONATE) 50 MEQ A SDIR PRN IV Sodium Chloride (SODIUM CHLORIDE 0.9%) 1,000 ML .Q20H IV Sodium Chloride (SODIUM CHLORIDE 0.9%) 250 ML Q2 4H IV Atorvastatin Calcium (LIPITOR) 40 MG 2100 PO Melatonin (Melatonin) 6 MG BEDTIME PO Sodium Chloride (SODIUM CHLORIDE) 20 ML ASDIR IV Acetaminophen (TYLENOL) 650 MG Q4H PRN PRN PO Physical Exam General appearance: alert, awake Cardiovascular: CV assessment: irregularly irregular, pedal maverick ma Respiratory: decreased breath sounds, on oxygen Abdomen: soft, non-tender, normal bowel sounds, no distention Genitourinary: urinary catheter, urine Lower extremity: LE assessment: edema, no calf tenderness 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, oriented X 3, normal speech Skin: dry, intact, normal color Psychiatry: normal affect, normal judgment/insig ht, normal mood Results Findings/Data: Laboratory Tests 06/21 06/20 06/20 0204 2044 1645 Chemistry Sodium (134 - 147 mEq/L) 139 139 Potassium (3.4 - 5.0 mEq/L) 3.7 3.6 Chloride (100 - 108 mEq/L) 107 107 Carbon Dioxide (21 - 33 mEq/l) 30 27 Anion Gap (0 - 20) 6 9 BUN (7 - 18 mg/dL) 17 18 Creatinine (0.6 - 1.3 mg/dL) 0.8 0.8 Glomerular Filtr Rate (80 - 90) 81.7 81.7 Glucose (70 - 110 mg/dL) 192 H 151 H POC Glucose (70 - 110 MG/DL) 160 H Calcium (8.0 - 10.5 mg/dL) 8.8 9.0 Ionized Calcium Jonas (1.09 - 1.30 MMOL/L) 1.17 Phosphorus (2.5 - 4.9 MG/DL) 2.6 Magnesium (1.80 - 2.40 mg/dL) 2.09 1.99 Total Bilirubin (0.0 - 1.0 mg/dL) 0.80 Direct Bilirubin (0.0 - 0.30 MG/DL) 0.30 Indirect Bilirubin (MG/DL) 0.50 AST (15 - 37 IUnit/L) 21 ALT (30 - 65 IUnit/L) 11 L Total Alk Phosphatase (20 - 125 IUnit/L) 78 Total Protein (6.4 - 8.2 g/dL) 5.2 L Albumin (3.4 - 5.0 g/dL) 2.60 L Laboratory Tests 06/21 0204 Hematology WBC (4.5 - 11.0 x10 3/uL) 10.0 RBC (3.54 - 5.02 x10 6/uL) 2.92 L Hgb (11.0 - 15.0 g/dL) 8.9 L Hct (33.0 - 45.0 %) 25.6 L MCV (81.0 - 99.0 fL) 87.7 MCH (27.0 - 33.0 pg) 30.5 MCHC (33.0 - 37.0 g/dL) 34.8 RDW (11.5 - 14.5 %) 13.7 Plt Count (150 - 400 x10 3/uL) 211 MPV (7.0 - 9.0 fL) 9.8 H Neut % (Auto) (56.0 - 77.0 %) 61.9 Lymph % (Auto) (14.0 - 32.0 %) 27.7 [place] % (Auto) (4.8 - 9.0 %) 6.6 Eos % (Auto) (0.3 - 3.7 %) 2.4 Baso % (Auto) (0.0 - 2.0 %) 0.3 Neut # (Auto) (2.0 - 7.6 x10 3/uL) 6.19 Lymph # (Auto) (1.0 - 3.8 x10 3/uL) 2.77 [place] # (Auto) (0.1 - 0.8 x10 3/uL) 0.66 Eos # (Auto) (0.0 - 0.2 x10 3/uL) 0.24 H Baso # (Auto) (0.0 - 0.2 x10 3/uL) 0.03 Abs Immat Gran (auto) (0.00 - 0.03 x10 3/uL) 0. 11 H Add Manual Diff NO Immature Gran % (0.0 - 2.0 %) 1.1 Nucleated RBC % (0 - 0 %) 0.6 H Nucleated RBCs # (Man) (0.0 - 0.1 x10 3/uL) 0.0 6 Laboratory Tests 06/21 06/20 0204 1645 Chemistry Magnesium (1.80 - 2.40 mg/dL) 2.09 1.99 Radiology data: Recent Impressions: RADIOLOGY - XR CHEST 1 V 06/21 0715 Report Impression - Status: SIGNED Entered: 06/21/2022 0916 IMPRESSION: 1. Unchanged left basilar airspace disease. 2. Unchanged small left pleural effusion. No merry dence of pneumothorax. Impression By: [email or web address] - Srinath Crain M.D. Telemetry Interpretation: Atrial fibrillation with controlled rate Diagnosis, Assessment Plan Plan discussed with: patient, nurse Free Text DxA P Notes Free Text DxA P Notes: 67-year-old female with [facility] history of CAD, MA, prior PCI/MEG 11 years ago, hypertension, diabetes melli tus, CVA, peripheral neuropathy, Charcot's foot who presented to with chest pain. She was taken for left heart catheterization where she wa s found to have multivessel CAD with failed attempt to PCI the CUT OFF SAWYER LAD. Patient is transferred to [facility] facility for surgical revascularization. 1. Multivessel CAD CABG x 4 (LIN-LAD, SVG-Elisabet, SVG-OM, SVG-PDA) Continue aspirin, beta-xander, statin post-op anemia negative fluid balance - received IV lasix this morning 2. Hypertension BP stable continue BB 3. Diabetes mellitus Manage per primary team 4. Post-operative Afib s/p ALAA on amiodarone 400 mg BID CTS team planning cardioversion- recommend AC pr e and post cardioversion Continue supportive care. Julius Washington 06/23/22 1214: Attestations Physician Attestation Agree w/findings plan: I have seen and examined the pt, I Agree with th e findings and plan as documented by Ursula Perkins. at 1654 Electronically Signed by Julius Washington MD on at 1214 RPT #:[id number] END OF REPORT 2022-06-21 09:16:00-00:00 [facility] Critical Care Progress Note REPORT#:[id number] REPORT STATUS: Signed DATE:06/21/22 TIME: 915 PATIENT: KALA TURPIN UNIT #: [id number] ROOM/BED: [place] [id number] : 57 AGE: 67 SEX: F ATTEND: Rosa Murrell MD ADM AUTHOR: Armand Goff MD * ALL edits or amendments must be made on the [employer]/computer document * Subjective Chief complaint: s/p CABG x4 (LIN-LAD, SVG-Elisabet, SVG-OM, SVG-PDA) ALAA EVH (RGSV) Posterior pericardiotomy on 06/16/2022 Comments: Out of bed in the chair Got orthostatic with PT Urine output 700 cc On insulin drip Remains in A-fib Objective General VS/I O Last Documented: Result Date Time B/P 94/56 06/21 0600 B/P Mean 70 06/21 0600 Pulse Ox 96 06/21 0600 Pulse 75 06/21 0600 Resp 14 06/21 0600 O2 Delivery Nasal cannula 06/21 0344 O2 Flow Rate 1 06/21 0344 Temp 97.4 06/20 2000 FiO2 21 06/20 0948 24 hour I O ending at 0700: 06/21 0700 03/28 1900 Intake Total 624.00 Output Total 695 Balance -71.00 Intake, IV 124.00 Intake, Oral 500 Number Voids 4 Output, Urine 695 Patient 100.9 kg Weight Weight Standing scale Measurement Method PATIENT WEIGHT: Weight (lb): 222 Weight (oz): 7.14 Weight (kg): 100.900 Medications: Active Meds + DC'd Last 24 Hrs Potassium Chloride (POTASSIUM CHLORIDE 20MEQ TAB .ER) 40 MEQ ONCE ONE PO (DC) Amiodarone HCl (CORDARONE) 400 MG BID PO (CKD) Pantoprazole (PROTONIX) 40 MG 0600,1800 PO Potassium Chloride (POTASSIUM CHLORIDE 20MEQ TAB .ER) 40 MEQ ONCE ONE PO (DC) Amiodarone HCl (NEXTERONE 150MG/D5W 100ML) 100 M L STAT STA IV (DC) Ipratropium [place] (ATROVENT) 500 MCG Q2H PRN P RN INH Cyanocobalamin (Vitamin B-12 500 mcg tab) 500 MC G DAILY PO Ferrous Sulfate (FERROUS SULFATE) 325 MG DAILY P O Insulin Glargine (Lantus/Semglee) 12 UNIT BEDTIM E SUBQ Amiodarone HCl (AMIODARONE HCL) 450 MG ASDIR IV (CKD) Dextrose/Water (D5%W NON-DEHP) 250 ML Acetylcysteine (MUCOMYST FOR RT) 200 MG RTQ8H NE B (DC) Bisacodyl (DULCOLAX) 10 MG ONCE PRN RECTAL Magnesium Hydroxide (MILK OF MAGNESIA) 30 ML ONC E PRN PO Heparin Sodium (HEPARIN 5000 UNITS/ML) 5,000 UNI T Q12HR SUBQ Dextrose/Water (DEXTROSE 10% IN WATER) 250 ML DIR PRN IV (CKD) Insulin Human Regular (HumuLIN R) 100 UNIT ASDIR IV (CKD) Sodium Chloride (SODIUM CHLORIDE 0.9%) 99 ML Dopamine HCl/Dextrose (DOPamine 400MG/D5W 250ML) 250 ML ASDIR IV Clopidogrel Bisulfate (Plavix) 75 MG DAILY PO Polyethylene Glycol (MIRALAX) 17 GM DAILY PO Pantoprazole (PROTONIX) 40 MG DAILY@0600 PO (DC) Docusate Sodium (COLACE) 100 MG BID PO Gabapentin (NEURONTIN) 200 MG BID PO (DC) Metoprolol Tartrate (LOPRESSOR) 12.5 MG Q12HR PO Mupirocin (BACTROBAN 2% 22 GM OINTMENT) 1 APPLIC BID NASAL (DC) Sennosides (Senna Lax 8.6 MG TABLET) 17.2 MG BED TIME PO Aspirin (ASPIRIN) 81 MG DAILY PO Amiodarone HCl (CORDARONE) 200 MG TID PO (DC) Acetaminophen (TYLENOL) 650 MG Q4H PRN PRN PO Acetaminophen (TYLENOL) 650 MG Q4H PRN PRN RECTA L Calcium Chloride (CALCIUM CHLORIDE) 1 GM ASDIR P RN IV Dextrose/Water (DEXTROSE 10% IN WATER) 125 ML DIR PRN IV (CKD) Dextrose/Water (DEXTROSE 10% IN WATER) 250 ML DIR PRN IV (CKD) Epinephrine (ADRENALIN CHLORIDE) 4 MG ASDIR IV Dextrose/Water (DEXTROSE 5% WATER) 246 ML Glucagon (GLUCAGON) 1 MG ASDIR PRN IM Ipratropium [place] (ATROVENT) 500 MCG RTQ4H INH Magnesium Sulfate (MAGNESIUM SULFATE 4GM/SWFI 10 0ML) 100 ML ASDIR PRN IV Magnesium Sulfate (MAGNESIUM SULFATE 2GM/SWFI 50 ML) 50 ML ASDIR PRN IV Magnesium Sulfate/Dextrose (MAGNESIUM SULFATE 1G M/D5W 100ML) 100 ML ASDIR PRN IV Nitroglycerin/Dextrose (NITROGLYCERIN 50,000MCG/ D5W 250ML) 250 ML ASDIR IV Norepinephrine Bitartrate (NOREPINEPHRINE 8 MG/N S 250 ML) 250 ML TITRATE IV Ondansetron HCl (ZOFRAN) 4 MG Q6H PRN PRN IV Oxycodone HCl (ROXICODONE) 5 MG Q4H PRN PRN PO Oxycodone HCl (ROXICODONE) 10 MG Q4H PRN PRN PO Potassium Chloride (KCL 20MEQ/SWFI 100ML) 100 ML ASDIR PRN IV Sodium Bicarbonate (SODIUM BICARBONATE) 50 MEQ A SDIR PRN IV Sodium Chloride (SODIUM CHLORIDE 0.9%) 1,000 ML .Q20H IV Sodium Chloride (SODIUM CHLORIDE 0.9%) 250 ML Q2 4H IV Atorvastatin Calcium (LIPITOR) 40 MG 2100 PO Melatonin (Melatonin) 6 MG BEDTIME PO Sodium Chloride (SODIUM CHLORIDE) 20 ML ASDIR IV Acetaminophen (TYLENOL) 650 MG Q4H PRN PRN PO Results Findings/data: Laboratory Tests 03/29 0306/20 1645 Chemistry Sodium (134 - 147 mEq/L) 139 139 Potassium (3.4 - 5.0 mEq/L) 3.7 3.6 Chloride (100 - 108 mEq/L) 107 107 Carbon Dioxide (21 - 33 mEq/l) 30 27 Anion Gap (0 - 20) 6 9 BUN (7 - 18 mg/dL) 17 18 Creatinine (0.6 - 1.3 mg/dL) 0.8 0.8 Glomerular Filtr Rate (80 - 90) 81.7 81.7 Glucose (70 - 110 mg/dL) 192 H 151 H POC Glucose (70 - 110 MG/DL) 160 H Calcium (8.0 - 10.5 mg/dL) 8.8 9.0 Ionized Calcium Jonas (1.09 - 1.30 MMOL/L) 1.17 Phosphorus (2.5 - 4.9 MG/DL) 2.6 Magnesium (1.80 - 2.40 mg/dL) 2.09 1.99 Total Bilirubin (0.0 - 1.0 mg/dL) 0.80 Direct Bilirubin (0.0 - 0.30 MG/DL) 0.30 Indirect Bilirubin (MG/DL) 0.50 AST (15 - 37 IUnit/L) 21 ALT (30 - 65 IUnit/L) 11 L Total Alk Phosphatase (20 - 125 IUnit/L) 78 Total Protein (6.4 - 8.2 g/dL) 5.2 L Albumin (3.4 - 5.0 g/dL) 2.60 L Laboratory Tests 06/22 203 Hematology WBC (4.5 - 11.0 x10 3/uL) 10.0 RBC (3.54 - 5.02 x10 6/uL) 2.92 L Hgb (11.0 - 15.0 g/dL) 8.9 L Hct (33.0 - 45.0 %) 25.6 L MCV (81.0 - 99.0 fL) 87.7 MCH (27.0 - 33.0 pg) 30.5 MCHC (33.0 - 37.0 g/dL) 34.8 RDW (11.5 - 14.5 %) 13.7 Plt Count (150 - 400 x10 3/uL) 211 MPV (7.0 - 9.0 fL) 9.8 H Neut % (Auto) (56.0 - 77.0 %) 61.9 Lymph % (Auto) (14.0 - 32.0 %) 27.7 [place] % (Auto) (4.8 - 9.0 %) 6.6 Eos % (Auto) (0.3 - 3.7 %) 2.4 Baso % (Auto) (0.0 - 2.0 %) 0.3 Neut # (Auto) (2.0 - 7.6 x10 3/uL) 6.19 Lymph # (Auto) (1.0 - 3.8 x10 3/uL) 2.77 [place] # (Auto) (0.1 - 0.8 x10 3/uL) 0.66 Eos # (Auto) (0.0 - 0.2 x10 3/uL) 0.24 H Baso # (Auto) (0.0 - 0.2 x10 3/uL) 0.03 Abs Immat Gran (auto) (0.00 - 0.03 x10 3/uL) 0. 11 H Add Manual Diff NO Immature Gran % (0.0 - 2.0 %) 1.1 Nucleated RBC % (0 - 0 %) 0.6 H Nucleated RBCs # (Man) (0.0 - 0.1 x10 3/uL) 0.0 6 Laboratory Tests 06/21/22 0204: [Embedded Image Not Available] 06/20/22 1645: [Embedded Image Not Available] Radiology data Recent Impressions: RADIOLOGY - XR CHEST 1 V 06/21 0715 Report Impression - Status: SIGNED Entered: 06/21/2022 0916 IMPRESSION: 1. Unchanged left basilar airspace disease. 2. Unchanged small left pleural effusion. No merry dence of pneumothorax. Impression By: Ana - Srinath Crain M.D. Free Text Obj Notes Free Text Obj Notes: GEN: Elderly female in no acute distress, intera ctive and conversational HEENT: Atraumatic, normocephalic, moist mucous m embranes NECK: Supple, good range of motion, no tendernes s LUNGS: Symmetrical air entry, no acute respirato ry distress CV: S1, S2 irregularly irregular GI: Abdomen is soft, not tender or distended EXT/Musc: LE edema, no cyanosis. Pedal pulses pr esent Skin: Surgical site clean, dry and intact. Warm to touch NEURO: Awake, alert and oriented x3. No facial d jovani or focal deficit Diagnosis, Assessment Plan Problem list/A P: 1. S/P CABG x 4 2. Coronary artery disease 3. Dysphagia 4. Afib Free text A P: 67 yo F admitted to CVICU s/p CABG x4 (LIN-LAD, SVG-Elisabet, SVG-OM, SVG-PDA) ALAA EVH (RGSV) Posterior pericardiotomy Acute pulm insufficiency following thoracic surg kimberli Diabetes mellitus with hemoglobin A1c 8.3 Acute blood loss anemia from surgery Neuro: keep off sedation, multimodal pain contro l, neurologically at baseline Respiratory: On 2 L nasal cannula wean down as t olerated. Patient has underlying PAULO. We will start her on CPAP. She d oes not know her settings. Start on CPAP at 8, as tolerated, Continue iprat ropium nebs. ABG and chest x- ray reviewed. Cardiovascular: Patient still continues to be hy pertensive. Continue dopamine at 3 mics for now Renal: Patient's creatinine has stabiliz ed at 0.9. Urine output has started to improve. Continue to monitor. Electrolytes are s table. ID: White count slightly high. No fevers. Contin ue to monitor for now GI: Continue bowel regimen. Abdomen is soft. Carolyne erating diet. LFTs stable. Hem: Hemoglobin is stable. Continue to monitor Endo: BG control with insulin gtt per protocol, endocrine consult Misc: PTOT consult, DVT and GI ppx with DAPT and PPI DisPosition is home her will stay with h er 06/19 Appears neuro intact, multimodal pain control Sats well on NC, wean O2, aggressive I-S, CXR re viewed Remains HD stable, A-fib better controlled, on a miodarone drip, hold off on dopamine drip Cr stable, start diuresis, monitor UOP, replete hypomagnesemia, repeat labs Oral diet as tolerated, possible upper GI pathol ogy per speech, consider GI consult No fevers or leukocytosis, no ID issues at this time Hgb appears stable, no evidence of active bleed, CTs removed Blood glucose control with i nsulin drip, transition to SQ insulin per endocrine Encourage PT/OT and out of bed as tolerated, IPR consult DVT and GI prophylaxis with DAPT and PPI 06/20 Remains neuro intact, continue multimodal pain c ontrol Sats well on NC, weaning O2, aggressive I-S, CXR reviewed HD stable, remains in controlled A-fib, rebolus with amiodarone and increase oral dose Cr remains stable, continue diuresis, monitor UO P, obtain labs as needed Oral diet as tolerated, jr l regimen, seen by GI for dysphagia, may need an EGD No fevers or leukocytosis, no ID issues at this time Hgb appears stable, no evidence of active bleedi ng Blood glucose control with insulin drip and Lant us per endocrine Encourage PT/OT and out of bed as tolerated, IPR consulted DVT and GI prophylaxis with DAPT and PPI bid (pe r GI) 06/21 Remains neuro intact, continue multimodal pain c ontrol, on Paxil at home Sats well on NC, weaning O2, aggressive I-S, CXR reviewed Orthostatic but HD stable, remains in A-fib, off amiodarone drip, plan for cardioversion Cr remains stable, hold off on further diuresis, monitor UOP, replete hypokalemia Oral diet as tolerated, bowel regimen, d ysphagia work-up as outpatient if okay with GI No fevers or leukocytosis, no ID issues at this time Hgb appears stable, no evidence of active bleedi ng Blood glucose control with insulin drip and Lant us per endocrine Encourage PT/OT and out of b ed as tolerated, CM for dispo planning, IPR team on board DVT and GI prophylaxis with DAPT and PPI bid (pe r GI) Consultants: cardiology Plan discussed with: patient, family, co nsultants, nurse, interdisc care team, pharmacy/pharmacist Critical care time: Minutes: 85 Electronically Signed by Armand Goff MD on 05/25 12/16 at 1517 RPT #:[id number] END OF REPORT 2022-06-21 08:39:00-00:00 [facility] Cardiothoracic Surgery Prog REPORT#:[id number] REPORT STATUS: Signed DATE:06/21/22 TIME: 08 PATIENT: KALA TURPIN UNIT #: [id number] ROOM/BED: [place] [id number] : 57 AGE: 67 SEX: F ATTEND: Reji Patel MD ADM AUTHOR: [facility] * ALL edits or amendments must be made on the el [employer]/computer document * General Post-op: day 5 Status post: 06/16/22 CABG x 4 (LIN-LAD, SVG-Elisabet, SVG-OM, SVG-PDA) ALAA EVH (RGSV) Posterior pericardiotomy Subjective Chief complaint: Follow up CABG Resting comfortable, OOB in chair Review of Systems Constitutional: Reports: generalized weakness. Denies: chills, f atigue. Skin: Denies: diaphoresis, ecchymosis, laceration. Allergy/Immun: Denies: anaphylaxis, hives, rhinorrhea. Eyes: Denies: discharge, itching, eye pain. ENT: Denies: earache, mouth pain, throat pain, tootha spencer. Respiratory: Denies: pneumonia, SOB, wheezing. Cardiovascular: Denies: chest pain, palpitations. GI: Denies: abdominal pain, nausea, vomiting. : Denies: dysuria, flank pain. Musculoskeletal: Denies: extremity pain. Heme: Denies: petechiae. Endocrine: Denies: cold intolerance, polyphagia, weight los s. Neuro: Denies: change in LOC, dizziness, seizure, synco pe, unable to speak. All systems rev neg: except as marked Objective General VS/I O Last Documented: Result Date Time B/P 94/56 06/21 0600 B/P Mean 70 06/21 0600 Pulse Ox 96 06/21 0600 Pulse 75 06/21 0600 Resp 14 06/21 0600 O2 Delivery Nasal cannula 06/21 0344 O2 Flow Rate 1 06/21 0344 Temp 97.4 06/20 2000 FiO2 21 06/20 0948 24 hour I O ending at 0700: 06/21 0700 06/20 1900 Intake Total 624.00 Output Total 695 Balance -71.00 Intake, IV 124.00 Intake, Oral 500 Number Voids 4 Output, Urine 695 Patient 100.9 kg Weight Weight Standing scale Measurement Method PATIENT WEIGHT: Weight (lb): 222 Weight (oz): 7.14 Weight (kg): 100.900 Dietitian Nutrition assessment The data set between the solid lines has been im ported from the dietitian's assessment. BMI Calculated: 42.0 Nutrition related diagnosis: Morbid obesity Nutrition diagnosis details: BMI 40 or more Nutrition problem: Increased nutrient needs Nutrition etiology: SURGERY Nutrition signs and symptoms: ESTIMATED NEEDS Nutrition prescription: ADAT TO REGULAR DIET S/P EXTUBATION IF PO INTAKE <50% CONSIDER ONS Dietitian name: [place], DIET Assessment completed: 06/16/22 Physical Exam General appearance: alert, awake, oriented Wound/incision: Location: sternal Site condition: edges approximated, incision in tact HEENT: anicteric, mucosal membranes moist, pupil s reactive to light Neck: full range of motion, non-tender, supple/n o meningismus Cardiovascular: normal heart sounds, regular rat e rhythm Respiratory: decreased breath sounds, aerating w ell, symmetric expansion, no distress Abdomen: soft, non-tender Genitourinary: urine Extremities: dry, moves all Musculoskeletal: full range of motion 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, oriented X 3 Skin: dry, intact Psychiatry: normal affect, normal mood Current Medications Medications: Active Meds + DC'd Last 24 Hrs Potassium Chloride (POTASSIUM CHLORIDE 20MEQ TAB .ER) 40 MEQ ONCE ONE PO (DC) Amiodarone HCl (CORDARONE) 400 MG BID PO (CKD) Pantoprazole (PROTONIX) 40 MG 0600,1800 PO Potassium Chloride (POTASSIUM CHLORIDE 20MEQ TAB .ER) 40 MEQ ONCE ONE PO (DC) Amiodarone HCl (NEXTERONE 150MG/D5W 100ML) 100 M L STAT STA IV (DC) Ipratropium [place] (ATROVENT) 500 MCG Q2H PRN P RN INH Cyanocobalamin (Vitamin B-12 500 mcg tab) 500 MC G DAILY PO Ferrous Sulfate (FERROUS SULFATE) 325 MG DAILY P O Insulin Glargine (Lantus/Semglee) 12 UNIT BEDTIM E SUBQ Amiodarone HCl (AMIODARONE HCL) 450 MG ASDIR IV (CKD) Dextrose/Water (D5%W NON-DEHP) 250 ML Acetylcysteine (MUCOMYST FOR RT) 200 MG RTQ8H NE B (DC) Bisacodyl (DULCOLAX) 10 MG ONCE PRN RECTAL Magnesium Hydroxide (MILK OF MAGNESIA) 30 ML ONC E PRN PO Heparin Sodium (HEPARIN 5000 UNITS/ML) 5,000 UNI T Q12HR SUBQ Dextrose/Water (DEXTROSE 10% IN WATER) 250 ML DIR PRN IV (CKD) Insulin Human Regular (HumuLIN R) 100 UNIT ASDIR IV (CKD) Sodium Chloride (SODIUM CHLORIDE 0.9%) 99 ML Dopamine HCl/Dextrose (DOPamine 400MG/D5W 250ML) 250 ML ASDIR IV Clopidogrel Bisulfate (Plavix) 75 MG DAILY PO Polyethylene Glycol (MIRALAX) 17 GM DAILY PO Pantoprazole (PROTONIX) 40 MG DAILY@0600 PO (DC) Docusate Sodium (COLACE) 100 MG BID PO Gabapentin (NEURONTIN) 200 MG BID PO Metoprolol Tartrate (LOPRESSOR) 12.5 MG Q12HR PO Mupirocin (BACTROBAN 2% 22 GM OINTMENT) 1 APPLIC BID NASAL Sennosides (Senna Lax 8.6 MG TABLET) 17.2 MG BED TIME PO Aspirin (ASPIRIN) 81 MG DAILY PO Amiodarone HCl (CORDARONE) 200 MG TID PO (DC) Acetaminophen (TYLENOL) 650 MG Q4H PRN PRN PO Acetaminophen (TYLENOL) 650 MG Q4H PRN PRN RECTA L Calcium Chloride (CALCIUM CHLORIDE) 1 GM ASDIR P RN IV Dextrose/Water (DEXTROSE 10% IN WATER) 125 ML DIR PRN IV (CKD) Dextrose/Water (DEXTROSE 10% IN WATER) 250 ML DIR PRN IV (CKD) Epinephrine (ADRENALIN CHLORIDE) 4 MG ASDIR IV Dextrose/Water (DEXTROSE 5% WATER) 246 ML Glucagon (GLUCAGON) 1 MG ASDIR PRN IM Ipratropium [place] (ATROVENT) 500 MCG RTQ4H INH Magnesium Sulfate (MAGNESIUM SULFATE 4GM/SWFI 10 0ML) 100 ML ASDIR PRN IV Magnesium Sulfate (MAGNESIUM SULFATE 2GM/SWFI 50 ML) 50 ML ASDIR PRN IV Magnesium Sulfate/Dextrose (MAGNESIUM SULFATE 1G M/D5W 100ML) 100 ML ASDIR PRN IV Nitroglycerin/Dextrose (NITROGLYCERIN 50,000MCG/ D5W 250ML) 250 ML ASDIR IV Norepinephrine Bitartrate (NOREPINEPHRINE 8 MG/N S 250 ML) 250 ML TITRATE IV Ondansetron HCl (ZOFRAN) 4 MG Q6H PRN PRN IV Oxycodone HCl (ROXICODONE) 5 MG Q4H PRN PRN PO Oxycodone HCl (ROXICODONE) 10 MG Q4H PRN PRN PO Potassium Chloride (KCL 20MEQ/SWFI 100ML) 100 ML ASDIR PRN IV Sodium Bicarbonate (SODIUM BICARBONATE) 50 MEQ A SDIR PRN IV Sodium Chloride (SODIUM CHLORIDE 0.9%) 1,000 ML .Q20H IV Sodium Chloride (SODIUM CHLORIDE 0.9%) 250 ML Q2 4H IV Atorvastatin Calcium (LIPITOR) 40 MG 2100 PO Melatonin (Melatonin) 6 MG BEDTIME PO Sodium Chloride (SODIUM CHLORIDE) 20 ML ASDIR IV Acetaminophen (TYLENOL) 650 MG Q4H PRN PRN PO Results Findings/Data: Laboratory Tests 06/21 06/20 06/20 0204 2044 1645 Chemistry Sodium (134 - 147 mEq/L) 139 139 Potassium (3.4 - 5.0 mEq/L) 3.7 3.6 Chloride (100 - 108 mEq/L) 107 107 Carbon Dioxide (21 - 33 mEq/l) 30 27 Anion Gap (0 - 20) 6 9 BUN (7 - 18 mg/dL) 17 18 Creatinine (0.6 - 1.3 mg/dL) 0.8 0.8 Glomerular Filtr Rate (80 - 90) 81.7 81.7 Glucose (70 - 110 mg/dL) 192 H 151 H POC Glucose (70 - 110 MG/DL) 160 H Calcium (8.0 - 10.5 mg/dL) 8.8 9.0 Ionized Calcium Jonas (1.09 - 1.30 MMOL/L) 1.17 Phosphorus (2.5 - 4.9 MG/DL) 2.6 Magnesium (1.80 - 2.40 mg/dL) 2.09 1.99 Total Bilirubin (0.0 - 1.0 mg/dL) 0.80 Direct Bilirubin (0.0 - 0.30 MG/DL) 0.30 Indirect Bilirubin (MG/DL) 0.50 AST (15 - 37 IUnit/L) 21 ALT (30 - 65 IUnit/L) 11 L Total Alk Phosphatase (20 - 125 IUnit/L) 78 Total Protein (6.4 - 8.2 g/dL) 5.2 L Albumin (3.4 - 5.0 g/dL) 2.60 L Laboratory Tests 06/21 0204 Hematology WBC (4.5 - 11.0 x10 3/uL) 10.0 RBC (3.54 - 5.02 x10 6/uL) 2.92 L Hgb (11.0 - 15.0 g/dL) 8.9 L Hct (33.0 - 45.0 %) 25.6 L MCV (81.0 - 99.0 fL) 87.7 MCH (27.0 - 33.0 pg) 30.5 MCHC (33.0 - 37.0 g/dL) 34.8 RDW (11.5 - 14.5 %) 13.7 Plt Count (150 - 400 x10 3/uL) 211 MPV (7.0 - 9.0 fL) 9.8 H Neut % (Auto) (56.0 - 77.0 %) 61.9 Lymph % (Auto) (14.0 - 32.0 %) 27.7 [place] % (Auto) (4.8 - 9.0 %) 6.6 Eos % (Auto) (0.3 - 3.7 %) 2.4 Baso % (Auto) (0.0 - 2.0 %) 0.3 Neut # (Auto) (2.0 - 7.6 x10 3/uL) 6.19 Lymph # (Auto) (1.0 - 3.8 x10 3/uL) 2.77 [place] # (Auto) (0.1 - 0.8 x10 3/uL) 0.66 Eos # (Auto) (0.0 - 0.2 x10 3/uL) 0.24 H Baso # (Auto) (0.0 - 0.2 x10 3/uL) 0.03 Abs Immat Gran (auto) (0.00 - 0.03 x10 3/uL) 0. 11 H Add Manual Diff NO Immature Gran % (0.0 - 2.0 %) 1.1 Nucleated RBC % (0 - 0 %) 0.6 H Nucleated RBCs # (Man) (0.0 - 0.1 x10 3/uL) 0.0 6 Radiology data: Recent Impressions: RADIOLOGY - XR CHEST 1 V 06/21 0715 Report Impression - Status: SIGNED Entered: 06/21/2022 1625 IMPRESSION: 1. Unchanged left basilar airspace disease. 2. Unchanged small left pleural effusion. No merry dence of pneumothorax. Impression By: [email or web address] - Srinath Carin M.D. Results: labs reviewed, vital signs stable, marquise milton personally rev'd, x-ray personally reviewed, current med profile rev'd Treatment Prophylaxis Treatment Prophylaxis Oxygen: room air Diagnosis, Assessment Plan Hospital course to date: Very pleasant 67-year-old female with past medic al history of stroke, hypertension, hyperlipidemia, diabetes (on insul in), obstructive sleep apnea, PAD, 2 MIs in the past statu s post PCI/stenting (on Plavix at home), NonHodgkin' s lymphoma (2006) who was at home working on her computer when she suddenly developed severe chest pain radiating to left sh oulder and jaw. Presented to the emergency room, was evaluated by car diology and underwent left heart cath. Coronary angiogram revealed severe multivessel coronary artery disease involving LAD which is totally occluded after the midporti on; diagonal OM branch with proximal stenosis 60 to 70%, left circumflex wit h 80-90% stenosis. Patient transferred to [facility] for surgical revasc ularization. PLAN Coronary angiogram images re viewed with Dr. Rogel and findings discussed with the patient. Will benefit from surgical revascul arization. Initiate preop work-up for CABG Hold Plavix. Obtain platelet response test to Pl avix Carotid ultrasound Noncontrasted chest BLE venous Doppler for vein mapping and marking Completed echocardiogram Incentive spirometer teaching Physical therapy evaluation given Dionte toure and limited mobilization Further recommendations to follow. 06/16/22 CABG x 4 (LIN-LAD, SVG-Elisabet, SVG-OM, SVG-PDA) ALAA EVH (RGSV) Posterior pericardiotomy 06/17/22 POD 1 Patient is alert and oriented, out of bed in dulce ir Labile blood pressure. Minimal pressor requireme nts, levo at 1, wean off as tolerated Transfuse 1 unit PRBC On 2l nasal cannula, encoura ge incentive spirometer use, nebs and deep breathing NSR on nutrition coordinator, no ectopy, epicardial pa cing wires on standby Keep both chest tubes and monitor outputs Cardiac diet Glycemic control on insulin drip, monitor blood sugars, consult endocrinology Bowel regimen protocol PT/OT DVT prophylaxis with SCDs and SQ heparin, GI pro phylaxis with PPI Monitor patient in CVICU Patient seen with Dr. Rogel, plan of care disc ussed with ICU team 06/18 No major events overnight, alert and oriented Wean O2 as tolerated. Encourage I-S On dopamine drip at 3 for renal perfusion; pt smith d low UOP yesterday Off levophed Cr 1.0 from 1.2. Strict I's and O's Chest tubes with minimal output; we will discont inue this morning Bowel regimen Glycemic control with insulin drip. Endocrinolog y following DVT prophylaxis with heparin subq Keep in CVICU today Pt seen and plan reviewed with Dr Rogel 06/19 POD 3 Patient in stable condition. Alert, awake, and o riented, oob in chair CXR and labs reviewed-stable Patient went into afib rvr- recieved amio bolus x 2 and amio drip Rebolus amio this am, Wean dopamine off and micah tor UOP and BP Monitor renal function, Cr 0.7 Strict I Os Cardiac diet, nutritional supplements SSI-glycemic control DVT ppx- SCDs and heparin SQ Continue supportive care in CVICU Rehab consulted Patient seen with Dr. Rogel, plan of care disc ussed with ICU team. 06/20/22 POD 4 Patient recovering well, alert, awake, and orien radha, no distress noted Breathing comfortable on ashlee m air, O2 sats 96%, Encourage I-S and deep breathing CXR shows small right pleural effusion, and stab le pulmonary opacities Remains a-fib rate controlled, on IV amio, rebol us amio today Discontinue staples and central line Diuresis with lasix 20 IV x 1 Strict I Os, daily weights GI consulted for patient fee ling food gets stuck in the middle of the esophagus, possible EGD Rehab following DVT prophylaxis with subq heparin and SCDS Monitor patient in CVICU Patient seen with Dr. Rogel, plan of care disc ussed with ICU team. 06/21/22 POD 5 Patient alert, awake, and oriented, no distress noted Remains in rate controlled a-fib, plan for cardi oversion today- Successful cardioversion into Sinus rhythm Keep O2 sats > 92%, on room air Continue pulmonary toileting, nebs, I-S use Discontinue central line Labs and chest x-ray reviewed- stable Cardiac diet, bowel regimen protocol- give suppo sitory today Pain controlled Daily weights, strict I Os DVT prophylaxis with SCDs and heparin SQ, GI pro phylaxis with PPI Rehab following Continue therapy with PT/OT Patient seen with Dr. Rogel, plan of care disc ussed with multidisciplinary team Consultants: cardiology Plan discussed with: patient , admitting physician, consultants, nurse, interdisc care team at 1519 at 1229 RPT #:[id number] END OF REPORT 2022-06-20 23:56:00-00:00 [facility] ([facility] Hospitalist History Physical REPORT#:[id number] REPORT STATUS: Signed DATE:06/20/22 TIME: 2356 PATIENT: KALA UTRPIN UNIT #: [id number] ROOM/BED: [place] [id number] : 57 AGE: 67 SEX: F ATTEND: Rosa Murrell MD ADM AUTHOR: Reva Murrell MD * ALL edits or amendments must be made on the el [employer]/computer document * History of Present Illness HPI Chief complaint: no acute complaints HPI: This is 67-year-old female with past medical his tory of stroke, hypertension, hyperlipidemia, diabetes (on insulin), obstructi ve sleep apnea, PAD, 2 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 Presented to the emergency room, was evaluated by cardiology and underwent left h eart cath. Coronary angiogram revealed severe multivessel coronary artery dise ase involving LAD which is totally occluded after the m idportion; diagonal OM branch with proximal stenosis 60 to 70%, left 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 Patient transferred to [facility] for surgical revascularization. History Past Medical Surgical Hx Additional medical history: Stroke Hypertension Hyperlipidemia Diabetes Obstructive sleep apnea Coronary artery disease Charcot syndrome Non Hodgkin's lymphoma Additional surgical history: Exploratory laparotomy for infected mesh Family History Additional family history: Father with hx of CAD Son of heart attack Social History Alcohol use: Denies EtOH use Drug use: Denies recreational drugs Smoking status for patients 13 years old or olde r: Never Smoker Medication/Allergy-Vaccine Hx Allergies: Coded Allergies: adhesive tape (RASH 06/15/22) niacin (Mild, ANXIETY 06/15/22) zolpidem (From AMBIEN) (CONFUSION 06/15/22) OBJECTIVE VS/I O: Vital Signs Date Temp Pulse Resp B/P B/P Mean Pulse Ox FiO2 06/20 97.4-99.1 67-89 9-32 81-280/40-280 55-280 95-100 21 Last Documented: Result Date Time Temp 97.4 06/20 2000 Pulse Ox 100 06/20 194 O2 Delivery Nasal cannula 06/20 194 O2 Flow Rate 1 06/20 1946 B/P 145/72 06/20 1645 B/P Mean 99 06/20 1645 Pulse 83 06/20 1645 Resp 22 06/20 1645 FiO2 21 06/20 0948 24 hour I O ending at 0700: 06/20 0700 06/19 1900 Intake Total 1255.00 722.00 Output Total 925 1650 Balance 330.00 -928.00 Intake, IV 755.00 722.00 Intake, Oral 500 Output, Urine 925 1650 Patient 223 lb Weight Weight Standing scale Measurement Method Patient Weight and BMI Weight (kg): 101.100 BMI: 42.1 Medications: Active Meds + DC'd Last 24 Hrs Amiodarone HCl (CORDARONE) 400 MG BID PO (CKD) Pantoprazole (PROTONIX) 40 MG 0600,1800 PO Potassium Chloride (POTASSIUM CHLORIDE 20MEQ TAB .ER) 40 MEQ ONCE ONE PO (DC) Amiodarone HCl (NEXTERONE 150MG/D5W 100ML) 100 M L STAT STA IV (DC) Furosemide (LASIX 20MG INJ) 20 MG ONCE ONE IV (D C) Ipratropium [place] (ATROVENT) 500 MCG Q2H PRN P RN INH Cyanocobalamin (Vitamin B-12 500 mcg tab) 500 MC G DAILY PO Ferrous Sulfate (FERROUS SULFATE) 325 MG DAILY P O Insulin Glargine (Lantus/Semglee) 12 UNIT BEDTIM E SUBQ Amiodarone HCl (AMIODARONE HCL) 450 MG ASDIR IV (CKD) Dextrose/Water (D5%W NON-DEHP) 250 ML Acetylcysteine (MUCOMYST FOR RT) 200 MG RTQ8H NE B (DC) Bisacodyl (DULCOLAX) 10 MG ONCE PRN RECTAL Magnesium Hydroxide (MILK OF MAGNESIA) 30 ML ONC E PRN PO Heparin Sodium (HEPARIN 5000 UNITS/ML) 5,000 UNI T Q12HR SUBQ Dextrose/Water (DEXTROSE 10% IN WATER) 250 ML DIR PRN IV (CKD) Insulin Human Regular (HumuLIN R) 100 UNIT ASDIR IV (CKD) Sodium Chloride (SODIUM CHLORIDE 0.9%) 99 ML Dopamine HCl/Dextrose (DOPamine 400MG/D5W 250ML) 250 ML ASDIR IV Clopidogrel Bisulfate (Plavix) 75 MG DAILY PO Polyethylene Glycol (MIRALAX) 17 GM DAILY PO Pantoprazole (PROTONIX) 40 MG DAILY@0600 PO (DC) Docusate Sodium (COLACE) 100 MG BID PO Gabapentin (NEURONTIN) 200 MG BID PO Metoprolol Tartrate (LOPRESSOR) 12.5 MG Q12HR PO Mupirocin (BACTROBAN 2% 22 GM OINTMENT) 1 APPLIC BID NASAL Sennosides (Senna Lax 8.6 MG TABLET) 17.2 MG BED TIME PO Aspirin (ASPIRIN) 81 MG DAILY PO Amiodarone HCl (CORDARONE) 200 MG TID PO (DC) Acetaminophen (TYLENOL) 650 MG Q4H PRN PRN PO Acetaminophen (TYLENOL) 650 MG Q4H PRN PRN RECTA L Calcium Chloride (CALCIUM CHLORIDE) 1 GM ASDIR P RN IV Dextrose/Water (DEXTROSE 10% IN WATER) 125 ML DIR PRN IV (CKD) Dextrose/Water (DEXTROSE 10% IN WATER) 250 ML DIR PRN IV (CKD) Epinephrine (ADRENALIN CHLORIDE) 4 MG ASDIR IV Dextrose/Water (DEXTROSE 5% WATER) 246 ML Glucagon (GLUCAGON) 1 MG ASDIR PRN IM Ipratropium [place] (ATROVENT) 500 MCG RTQ4H INH Magnesium Sulfate (MAGNESIUM SULFATE 4GM/SWFI 10 0ML) 100 ML ASDIR PRN IV Magnesium Sulfate (MAGNESIUM SULFATE 2GM/SWFI 50 ML) 50 ML ASDIR PRN IV Magnesium Sulfate/Dextrose (MAGNESIUM SULFATE 1G M/D5W 100ML) 100 ML ASDIR PRN IV Nitroglycerin/Dextrose (NITROGLYCERIN 50,000MCG/ D5W 250ML) 250 ML ASDIR IV Norepinephrine Bitartrate (NOREPINEPHRINE 8 MG/N S 250 ML) 250 ML TITRATE IV Ondansetron HCl (ZOFRAN) 4 MG Q6H PRN PRN IV Oxycodone HCl (ROXICODONE) 5 MG Q4H PRN PRN PO Oxycodone HCl (ROXICODONE) 10 MG Q4H PRN PRN PO Potassium Chloride (KCL 20MEQ/SWFI 100ML) 100 ML ASDIR PRN IV Sodium Bicarbonate (SODIUM BICARBONATE) 50 MEQ A SDIR PRN IV Sodium Chloride (SODIUM CHLORIDE 0.9%) 1,000 ML .Q20H IV Sodium Chloride (SODIUM CHLORIDE 0.9%) 250 ML Q2 4H IV Atorvastatin Calcium (LIPITOR) 40 MG 2100 PO Melatonin (Melatonin) 6 MG BEDTIME PO Sodium Chloride (SODIUM CHLORIDE) 20 ML ASDIR IV Acetaminophen (TYLENOL) 650 MG Q4H PRN PRN PO General appearance: no acute distress Head/Eyes: atraumatic, clear cornea, EOMI, PERRL A Neck: supple/no meningismus Cardiovascular: normal heart sounds, reg ular rate rhythm, no gallop, no murmur , no rub Respiratory: aerating well, clear to auscultatio n Abdomen: non-tender, normal bowel sounds, soft, no distention Extremities: no clubbing, no cyanosis, no edema Musculoskeletal: normal inspection, painless ran ge of motion 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, oriented X 3, CNII-XII intact Skin: dry, intact Results Findings/Data: Laboratory Tests: 06/20 06/20 06/20 06/20 2044 1645 0620 0254 Blood Gas Puncture Site Art Line O2 Saturation (90 - 100 %) 95.6 ABG pH (7.35 - 7.45) 7.459 H ABG pCO2 (35.0 - 45 mmHg) 36.1 ABG pO2 (80 - 100.0 mmHg) 75.0 L ABG HCO3 (22.0 - 26.0 MMOL/L) 25.6 ABG Total CO2 26.7 ABG Base Excess (-4.0 - 4.0 MMOL/L) 1.7 ABG Hematocrit (33.0 - 45.0 %) 25 L ABG Hemoglobin (11.0 - 15.0 G/DL) 8.4 L Sodium (134 - 147 mmol/L) 139 Potassium (3.4 - 5.0 mmol/L) 3.7 Chloride (100 - 108 mmol/L) 103 Ionized Calcium (1.12 - 1.32 MMOL/L) 1.25 Lactic Acid (0.9 - 1.7 mmol/l) 1.0 Temperature (F) 98.8 O2 Delivery Device Room Air Chemistry Sodium (134 - 147 mEq/L) 139 Potassium (3.4 - 5.0 mEq/L) 3.6 Chloride (100 - 108 mEq/L) 107 Carbon Dioxide (21 - 33 mEq/l) 27 Anion Gap (0 - 20) 9 BUN (7 - 18 mg/dL) 18 Creatinine (0.6 - 1.3 mg/dL) 0.8 POC Creatinine (0.6 - 1.0 mg/dL) 0.7 Glomerular Filtr Rate (80 - 90) 81.7 Glucose (70 - 110 mg/dL) 151 H POC Glucose (70 - 110 MG/DL) 160 H 126 H POC Glucose (mg/dL) (70 - 110 MG/DL) 139 H Calcium (8.0 - 10.5 mg/dL) 9.0 Magnesium (1.80 - 2.40 mg/dL) 1.99 06/20 025 Chemistry Sodium (134 - 147 mEq/L) 142 Potassium (3.4 - 5.0 mEq/L) 4.1 Chloride (100 - 108 mEq/L) 110 H Carbon Dioxide (21 - 33 mEq/l) 28 Anion Gap (0 - 20) 9 BUN (7 - 18 mg/dL) 17 Creatinine (0.6 - 1.3 mg/dL) 0.7 Glomerular Filtr Rate (80 - 90) 95.9 H Glucose (70 - 110 mg/dL) 125 H Calcium (8.0 - 10.5 mg/dL) 8.8 Ionized Calcium Jonas (1.09 - 1.30 MMOL/L) 1.17 Phosphorus (2.5 - 4.9 MG/DL) 3.7 Magnesium (1.80 - 2.40 mg/dL) 2.40 Total Bilirubin (0.0 - 1.0 mg/dL) 1.00 Direct Bilirubin (0.0 - 0.30 MG/DL) 0.50 H Indirect Bilirubin (MG/DL) 0.50 AST (15 - 37 IUnit/L) 27 ALT (30 - 65 IUnit/L) 13 L Total Alk Phosphatase (20 - 125 IUnit/L) 68 Total Protein (6.4 - 8.2 g/dL) 5.4 L Albumin (3.4 - 5.0 g/dL) 2.70 L Hematology WBC (4.5 - 11.0 x10 3/uL) 11.2 H RBC (3.54 - 5.02 x10 6/uL) 2.88 L Hgb (11.0 - 15.0 g/dL) 8.8 L Hct (33.0 - 45.0 %) 25.8 L MCV (81.0 - 99.0 fL) 89.6 MCH (27.0 - 33.0 pg) 30.6 MCHC (33.0 - 37.0 g/dL) 34.1 RDW (11.5 - 14.5 %) 13.8 Plt Count (150 - 400 x10 3/uL) 197 MPV (7.0 - 9.0 fL) 10.0 H Neut % (Auto) (56.0 - 77.0 %) 63.8 Lymph % (Auto) (14.0 - 32.0 %) 27.0 [place] % (Auto) (4.8 - 9.0 %) 6.3 Eos % (Auto) (0.3 - 3.7 %) 1.9 Baso % (Auto) (0.0 - 2.0 %) 0.3 Neut # (Auto) (2.0 - 7.6 x10 3/uL) 7.16 Lymph # (Auto) (1.0 - 3.8 x10 3/uL) 3.02 [place] # (Auto) (0.1 - 0.8 x10 3/uL) 0.70 Eos # (Auto) (0.0 - 0.2 x10 3/uL) 0.21 H Baso # (Auto) (0.0 - 0.2 x10 3/uL) 0.03 Abs Immat Gran (auto) (0.00 - 0.03 x10 3/uL) 0. 08 H Add Manual Diff NO Immature Gran % (0.0 - 2.0 %) 0.7 Nucleated RBC % (0 - 0 %) 0.4 H Nucleated RBCs # (Man) (0.0 - 0.1 x10 3/uL) 0.0 4 Laboratory Tests 06/20/22 1645: [Embedded Image Not Available] 06/20/22 0250: [Embedded Image Not Available] Radiology data: Recent Impressions: RADIOLOGY - XR CHEST 1 V 06/20 0521 Report Impression - Status: SIGNED Entered: 06/20/2022 0834 IMPRESSION: 1. New small right pleural effusion. 2. Small residual left apical pneumothorax, stab le to diminished. 3. Stable pulmonary opacities and left basilar p leuroparenchymal disease. Impression By: Adam Sprague M.D. Diagnosis, Assessment Plan Free Text A P: atrial fibrillation on po amio now; off the amio drip CAD cath with multivessel CAD CTS seen Status post 4 vessel CABG today echo wnl Status post CABG Off Levophed off dopamine drip Patient extubated Has 2 chest tubes which have been removed today on insulin drip DM on SSI prn monitor sugars closely on insulin drip HLD stable anemia s/p one unit hgb stable food getting stuck in the esophagus GI seen possible EGD in the am check labs in am Electronically Signed by Reva Murrell MD on 0 06/21/22 at 0101 RPT #:[id number] END OF REPORT 2022-06-20 19:12:00-00:00 [facility] ([facility]) Rehab Progress Note REPORT#:[id number] REPORT STATUS: Signed DATE:06/20/22 TIME: 1911 PATIENT: PAPIKALA UNIT #: [id number] ROOM/BED: [place] [id number] : 57 AGE: 67 SEX: F ATTEND: Rosa Murrell MD ADM AUTHOR: Leia Castellanos NP * ALL edits or amendments must be made on the [employer] document * Subjective Chief complaint: rehab follow-up pt seen early around 13pm denied pain and sob increase anxiety -worried about doing EGD Objective General VS: Vital Signs: Date Time Temp Pulse Resp B/P B/P Pulse O2 O2 F low FiO2 Mean Ox Delivery Rate 06/20 1645 83 22 145/72 99 98 06/20 1615 143/67 96 06/20 1604 139/77 102 06/20 1600 155/69 99 06/20 1600 76 16 161/72 102 96 06/20 1530 138/65 94 06/20 1530 89 13 144/71 99 96 06/20 1515 139/63 91 06/20 1515 77 16 143/68 95 97 06/20 1502 79 13 149/72 101 97 06/20 1500 136/60 86 06/20 1500 82 14 147/71 100 97 06/20 1445 133/62 89 06/20 1445 77 13 149/67 93 98 06/20 1430 115/69 88 06/20 1430 79 14 142/66 91 97 06/20 1415 120/58 83 06/20 1415 77 13 138/67 90 96 06/20 1401 117/64 82 06/20 1401 83 32 142/67 91 97 06/20 1400 77 17 140/65 89 97 06/20 1330 107/57 76 06/20 1330 78 19 118/54 74 97 06/20 1315 99/51 73 06/20 1315 78 13 109/51 69 97 06/20 1300 104/52 74 06/20 1300 78 14 97/46 62 96 06/20 1245 100/55 72 06/20 1245 75 14 96/49 64 97 06/20 1230 93/51 68 06/20 1230 74 14 96/49 64 98 06/20 1215 97/55 70 03/ 1215 71 19 101/56 71 99 06/20 1201 89/57 69 06/20 1201 69 15 108/55 71 97 03/ 1200 75 14 109/56 73 97 03/ 1145 103/52 74 03/ 1145 76 22 120/59 78 98 03/ 1142 94/51 67 03 1142 76 15 123/61 79 98 06/20 1136 74 15 99/51 69 99 06/20 1124 76 17 06/20 1124 91/55 69 03 1122 74 22 03 1120 82/59 66 03/ 1120 75 25 280/280 280 06/20 1101 114/56 80 03 1101 98.8 67 13 124/63 83 97 06/20 1100 98.8 72 12 125/63 84 97 06/20 1045 87/50 62 / 1045 98.8 72 13 111/59 76 98 06/20 1031 100/49 70 06/20 1031 98.8 74 14 89/48 61 98 06/20 1015 100/55 72 03 1015 98.8 72 11 125/64 83 97 06/20 1001 105/58 78 06/20 1001 98.6 78 21 81/40 55 96 06/20 1000 98.6 77 27 109/57 75 97 06/20 0948 100 Room air 21 06/20 0946 111/51 71 06/20 0946 98.6 72 9 122/56 76 97 06/20 0930 122/62 86 06/20 0930 98.4 75 13 134/63 86 97 06/20 0915 154/68 98 06/20 0915 98.4 82 14 151/73 102 96 06/20 0900 133/61 88 06/20 0900 98.4 84 14 152/72 99 96 06/20 0845 130/74 97 06/20 0845 98.2 79 13 159/73 101 96 06/20 0831 129/77 96 06/20 0831 98.2 84 16 149/70 96 96 06/20 0816 144/76 97 06/20 0816 98.2 79 11 158/76 104 96 06/20 0801 107/55 75 06/20 0801 98.2 80 24 118/56 77 96 06/20 0800 98.2 79 27 117/65 84 95 03 0745 109/55 79 06/20 0745 98.2 73 14 136/61 86 96 06/20 0730 112/55 75 06/20 0730 98.2 75 14 131/59 83 96 06/20 0715 115/53 76 06/20 0715 98.4 79 14 128/59 82 95 06/20 0700 113/55 77 06/20 0700 98.4 75 12 132/63 86 95 06/20 0600 138/62 89 06/20 0600 99.0 81 12 143/67 91 95 06/20 0500 96/55 71 06/20 0500 98.8 71 12 109/53 69 96 06/20 0400 97/59 73 06/20 0400 98.8 76 12 118/57 76 95 06/20 0348 95 Room air 06/20 0300 100/72 82 06/20 0300 99.0 79 12 132/66 86 96 06/20 0200 94/53 69 06/20 0200 99.0 73 19 103/56 71 100 06/20 0100 95/52 70 06/20 0100 99.1 69 12 105/56 72 100 06/20 0000 93/62 69 06/20 0000 99.0 80 14 97/52 66 100 06/19 2300 102/53 71 06/19 2300 99.0 77 14 110/59 74 99 06/19 2200 98/58 74 06/19 2200 99.0 81 13 114/54 72 97 06/19 2100 136/65 93 06/19 2100 98.8 87 20 149/74 97 100 06/19 2000 133/65 94 06/20 1999 98.8 83 12 152/72 98 100 06/19 1943 99 Nasal 2 cannula 06/19 193 High flow 1 nasal cannula PATIENT WEIGHT: Weight (lb): 222 Weight (oz): 14.2 Weight (kg): 101.100 Medications: Active Meds + DC'd Last 24 Hrs Amiodarone HCl (CORDARONE) 400 MG BID PO (CKD) Pantoprazole (PROTONIX) 40 MG 0600,1800 PO Potassium Chloride (POTASSIUM CHLORIDE 20MEQ TAB .ER) 40 MEQ ONCE ONE PO (DC) Amiodarone HCl (NEXTERONE 150MG/D5W 100ML) 100 M L STAT STA IV (DC) Furosemide (LASIX 20MG INJ) 20 MG ONCE ONE IV (D C) Furosemide (LASIX 20MG INJ) 20 MG ONCE ONE IV (D C) Magnesium Sulfate/Dextrose (MAGNESIUM SULFATE 1G M/D5W 100ML) 100 ML ONCE ONE IV (DC) Potassium Chloride (POTASSIUM CHLORIDE 20MEQ TAB .ER) 40 MEQ ONCE ONE PO (DC) Potassium Phosphate (POTASSIUM PHOSPHATE) 20 MM ONCE ONE IV (DC) Sodium Chloride (SODIUM CHLORIDE 0.9%) 250 ML Ipratropium [place] (ATROVENT) 500 MCG Q2H PRN P RN INH Cyanocobalamin (Vitamin B-12 500 mcg tab) 500 MC G DAILY PO Ferrous Sulfate (FERROUS SULFATE) 325 MG DAILY P O Insulin Glargine (Lantus/Semglee) 12 UNIT BEDTIM E SUBQ Amiodarone HCl (AMIODARONE HCL) 450 MG ASDIR IV (CKD) Dextrose/Water (D5%W NON-DEHP) 250 ML Acetylcysteine (MUCOMYST FOR RT) 200 MG RTQ8H NE B (DC) Bisacodyl (DULCOLAX) 10 MG ONCE PRN RECTAL Magnesium Hydroxide (MILK OF MAGNESIA) 30 ML ONC E PRN PO Heparin Sodium (HEPARIN 5000 UNITS/ML) 5,000 UNI T Q12HR SUBQ Dextrose/Water (DEXTROSE 10% IN WATER) 250 ML DIR PRN IV (CKD) Insulin Human Regular (HumuLIN R) 100 UNIT ASDIR IV (CKD) Sodium Chloride (SODIUM CHLORIDE 0.9%) 99 ML Dopamine HCl/Dextrose (DOPamine 400MG/D5W 250ML) 250 ML ASDIR IV Clopidogrel Bisulfate (Plavix) 75 MG DAILY PO Polyethylene Glycol (MIRALAX) 17 GM DAILY PO Pantoprazole (PROTONIX) 40 MG DAILY@0600 PO (DC ) Docusate Sodium (COLACE) 100 MG BID PO Gabapentin (NEURONTIN) 200 MG BID PO Metoprolol Tartrate (LOPRESSOR) 12.5 MG Q12HR PO Mupirocin (BACTROBAN 2% 22 GM OINTMENT) 1 APPLIC BID NASAL Sennosides (Senna Lax 8.6 MG TABLET) 17.2 MG BED TIME PO Aspirin (ASPIRIN) 81 MG DAILY PO Amiodarone HCl (CORDARONE) 200 MG TID PO (DC) Acetaminophen (TYLENOL) 650 MG Q4H PRN PRN PO Acetaminophen (TYLENOL) 650 MG Q4H PRN PRN RECTA L Calcium Chloride (CALCIUM CHLORIDE) 1 GM ASDIR P RN IV Dextrose/Water (DEXTROSE 10% IN WATER) 125 ML DIR PRN IV (CKD) Dextrose/Water (DEXTROSE 10% IN WATER) 250 ML DIR PRN IV (CKD) Epinephrine (ADRENALIN CHLORIDE) 4 MG ASDIR IV Dextrose/Water (DEXTROSE 5% WATER) 246 ML Glucagon (GLUCAGON) 1 MG ASDIR PRN IM Ipratropium [place] (ATROVENT) 500 MCG RTQ4H INH Magnesium Sulfate (MAGNESIUM SULFATE 4GM/SWFI 10 0ML) 100 ML ASDIR PRN IV Magnesium Sulfate (MAGNESIUM SULFATE 2GM/SWFI 50 ML) 50 ML ASDIR PRN IV Magnesium Sulfate/Dextrose (MAGNESIUM SULFATE 1G M/D5W 100ML) 100 ML ASDIR PRN IV Nitroglycerin/Dextrose (NITROGLYCERIN 50,000MCG/ D5W 250ML) 250 ML ASDIR IV Norepinephrine Bitartrate (NOREPINEPHRINE 8 MG/N S 250 ML) 250 ML TITRATE IV Ondansetron HCl (ZOFRAN) 4 MG Q6H PRN PRN IV Oxycodone HCl (ROXICODONE) 5 MG Q4H PRN PRN PO Oxycodone HCl (ROXICODONE) 10 MG Q4H PRN PRN PO Potassium Chloride (KCL 20MEQ/SWFI 100ML) 100 ML ASDIR PRN IV Sodium Bicarbonate (SODIUM BICARBONATE) 50 MEQ A SDIR PRN IV Sodium Chloride (SODIUM CHLORIDE 0.9%) 1,000 ML .Q20H IV Sodium Chloride (SODIUM CHLORIDE 0.9%) 250 ML Q2 4H IV Atorvastatin Calcium (LIPITOR) 40 MG 2100 PO Melatonin (Melatonin) 6 MG BEDTIME PO Sodium Chloride (SODIUM CHLORIDE) 20 ML ASDIR IV Acetaminophen (TYLENOL) 650 MG Q4H PRN PRN PO Physical Exam General appearance: obese, alert, awake, oriente d Psych: anxious, alert, oriented x 3 HEENT: anicteric, mucosal membranes moist Neck: supple, no JVD Respiratory: aerating well, clear bilaterally Abdomen: bowel sounds present, non-distended, so ft, non-tender Skin: dry, intact, no rash Musculoskeletal - general: Musculoskeletal - general: swelling (BLE) 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, 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12 - 1.32 MMOL/L) 1.25 Lactic Acid (0.9 - 1.7 mmol/l) 1.0 Temperature (F) 98.8 O2 Delivery Device Room Air Chemistry Sodium (134 - 147 mEq/L) 139 142 Potassium (3.4 - 5.0 mEq/L) 3.6 4.1 Chloride (100 - 108 mEq/L) 107 110 H Carbon Dioxide (21 - 33 mEq/l) 27 28 Anion Gap (0 - 20) 9 9 BUN (7 - 18 mg/dL) 18 17 Creatinine (0.6 - 1.3 mg/dL) 0.8 0.7 POC Creatinine (0.6 - 1.0 mg/dL) 0.7 Glomerular Filtr Rate (80 - 90) 81.7 95.9 H Glucose (70 - 110 mg/dL) 151 H 125 H POC Glucose (70 - 110 MG/DL) 126 H POC Glucose (mg/dL) (70 - 110 MG/DL) 139 H Calcium (8.0 - 10.5 mg/dL) 9.0 8.8 Ionized Calcium Jonas (1.09 - 1.30 MMOL/L) 1.17 Phosphorus (2.5 - 4.9 MG/DL) 3.7 Magnesium (1.80 - 2.40 mg/dL) 1.99 2.40 Total Bilirubin (0.0 - 1.0 mg/dL) 1.00 Direct Bilirubin (0.0 - 0.30 MG/DL) 0.50 H Indirect Bilirubin (MG/DL) 0.50 AST (15 - 37 IUnit/L) 27 ALT (30 - 65 IUnit/L) 13 L Total Alk Phosphatase (20 - 125 IUnit/L) 68 Total Protein (6.4 - 8.2 g/dL) 5.4 L Albumin (3.4 - 5.0 g/dL) 2.70 L Hematology WBC (4.5 - 11.0 x10 3/uL) 11.2 H RBC (3.54 - 5.02 x10 6/uL) 2.88 L Hgb (11.0 - 15.0 g/dL) 8.8 L Hct (33.0 - 45.0 %) 25.8 L MCV (81.0 - 99.0 fL) 89.6 MCH (27.0 - 33.0 pg) 30.6 MCHC (33.0 - 37.0 g/dL) 34.1 RDW (11.5 - 14.5 %) 13.8 Plt Count (150 - 400 x10 3/uL) 197 MPV (7.0 - 9.0 fL) 10.0 H Neut % (Auto) (56.0 - 77.0 %) 63.8 Lymph % (Auto) (14.0 - 32.0 %) 27.0 [place] % (Auto) (4.8 - 9.0 %) 6.3 Eos % (Auto) (0.3 - 3.7 %) 1.9 Baso % (Auto) (0.0 - 2.0 %) 0.3 Neut # (Auto) (2.0 - 7.6 x10 3/uL) 7.16 Lymph # (Auto) (1.0 - 3.8 x10 3/uL) 3.02 [place] # (Auto) (0.1 - 0.8 x10 3/uL) 0.70 Eos # (Auto) (0.0 - 0.2 x10 3/uL) 0.21 H Baso # (Auto) (0.0 - 0.2 x10 3/uL) 0.03 Abs Immat Gran (auto) (0.00 - 0.03 0.08 H x10 3/uL) Add Manual Diff NO Immature Gran % (0.0 - 2.0 %) 0.7 Nucleated RBC % (0 - 0 %) 0.4 H Nucleated RBCs # (Man) (0.0 - 0.1 x10 3/uL) 0.0 4 06/19 2158 Chemistry POC Glucose (70 - 110 MG/DL) 133 H Diagnosis, Assessment Plan Free Text A P: Multivessel CAD Status post CABG x4 Impaired mobility and gait Generalized weakness Postoperative anemia requiring transfusion Diabetes Hyperlipidemia Orthostatic hypotension Plan: Continue PT/OT Out of bed to chair Work on strength, bed mobility, transfers, gait Sternal precautions Increase endurance Fall precautions Monitor p.o. 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 CLOF with therapy Transfers: Bjorn Pt had significant drop in B P with therapy today started at SBP 90's sitting and dropped to SPB 60's Pt not ready for rehab placement Also pending possible EGD Total time was 33 minutes > 50% with patient per forming physical examination, discussing plan of care, goals, therapies, progr ess, medications, labs, discharge planning. All questions answered Rehab attestation: Face to face exam completed. Treatment plan disc ussed with patient. at 1921 RPT #:[id number] END OF REPORT 2022-06-20 17:21:00-00:00 [facility] Endocrinology Progress Note REPORT#:[id number] REPORT STATUS: Signed DATE:06/20/22 TIME: 1721 PATIENT: KALA TURPIN UNIT #: [id number] ROOM/BED: [place] [id number] : 59 AGE: 67 SEX: F ATTEND: Rosa Murrell MD ADM AUTHOR: Jurgen Wolf MD * ALL edits or amendments must be made on the el [employer] document * Subjective Patient reports: no complaints Objective General VS: Last Documented: Result Date Time Pulse Ox 98 06/20 1645 B/P 145/72 06/20 1645 B/P Mean 99 03/28 1645 Pulse 83 06/20 1645 Resp 22 06/20 1645 Temp 37.1 06/20 1101 FiO2 21 06/20 0948 O2 Delivery Room air 06/20 0948 O2 Flow Rate 2 06/19 1942 PATIENT WEIGHT: Weight (lb): 222 Weight (oz): 14.2 Weight (kg): 101.100 Medications: Active Meds + DC'd Last 24 Hrs Amiodarone HCl (CORDARONE) 400 MG BID PO (CKD) Pantoprazole (PROTONIX) 40 MG 0600,1800 PO Amiodarone HCl (NEXTERONE 150MG/D5W 100ML) 100 M L STAT STA IV (DC) Furosemide (LASIX 20MG INJ) 20 MG ONCE ONE IV (D C) Furosemide (LASIX 20MG INJ) 20 MG ONCE ONE IV (D C) Magnesium Sulfate/Dextrose (MAGNESIUM SULFATE 1G M/D5W 100ML) 100 ML ONCE ONE IV (DC) Potassium Chloride (POTASSIUM CHLORIDE 20MEQ TAB .ER) 40 MEQ ONCE ONE PO (DC) Potassium Phosphate (POTASSIUM PHOSPHATE) 20 MM ONCE ONE IV (DC) Sodium Chloride (SODIUM CHLORIDE 0.9%) 250 ML Ipratropium [place] (ATROVENT) 500 MCG Q2H PRN P RN INH Cyanocobalamin (Vitamin B-12 500 mcg tab) 500 MC G DAILY PO Ferrous Sulfate (FERROUS SULFATE) 325 MG DAILY P O Insulin Glargine (Lantus/Semglee) 12 UNIT BEDTIM E SUBQ Amiodarone HCl (AMIODARONE HCL) 450 MG ASDIR IV (CKD) Dextrose/Water (D5%W NON-DEHP) 250 ML Acetylcysteine (MUCOMYST FOR RT) 200 MG RTQ8H NE B (DC) Bisacodyl (DULCOLAX) 10 MG ONCE PRN RECTAL Magnesium Hydroxide (MILK OF MAGNESIA) 30 ML ONC E PRN PO Heparin Sodium (HEPARIN 5000 UNITS/ML) 5,000 UNI T Q12HR SUBQ Dextrose/Water (DEXTROSE 10% IN WATER) 250 ML DIR PRN IV (CKD) Insulin Human Regular (HumuLIN R) 100 UNIT ASDIR IV (CKD) Sodium Chloride (SODIUM CHLORIDE 0.9%) 99 ML Dopamine HCl/Dextrose (DOPamine 400MG/D5W 250ML) 250 ML ASDIR IV Clopidogrel Bisulfate (Plavix) 75 MG DAILY PO Polyethylene Glycol (MIRALAX) 17 GM DAILY PO Pantoprazole (PROTONIX) 40 MG DAILY@0600 PO (DC) Docusate Sodium (COLACE) 100 MG BID PO Gabapentin (NEURONTIN) 200 MG BID PO Metoprolol Tartrate (LOPRESSOR) 12.5 MG Q12HR PO Mupirocin (BACTROBAN 2% 22 GM OINTMENT) 1 APPLIC BID NASAL Sennosides (Senna Lax 8.6 MG TABLET) 17.2 MG BED TIME PO Aspirin (ASPIRIN) 81 MG DAILY PO Amiodarone HCl (CORDARONE) 200 MG TID PO (DC) Acetaminophen (TYLENOL) 650 MG Q4H PRN PRN PO Acetaminophen (TYLENOL) 650 MG Q4H PRN PRN RECTA L Calcium Chloride (CALCIUM CHLORIDE) 1 GM ASDIR P RN IV Dextrose/Water (DEXTROSE 10% IN WATER) 125 ML DIR PRN IV (CKD) Dextrose/Water (DEXTROSE 10% IN WATER) 250 ML DIR PRN IV (CKD) Epinephrine (ADRENALIN CHLORIDE) 4 MG ASDIR IV Dextrose/Water (DEXTROSE 5% WATER) 246 ML Glucagon (GLUCAGON) 1 MG ASDIR PRN IM Ipratropium [place] (ATROVENT) 500 MCG RTQ4H INH Magnesium Sulfate (MAGNESIUM SULFATE 4GM/SWFI 10 0ML) 100 ML ASDIR PRN IV Magnesium Sulfate (MAGNESIUM SULFATE 2GM/SWFI 50 ML) 50 ML ASDIR PRN IV Magnesium Sulfate/Dextrose (MAGNESIUM SULFATE 1G M/D5W 100ML) 100 ML ASDIR PRN IV Nitroglycerin/Dextrose (NITROGLYCERIN 50,000MCG/ D5W 250ML) 250 ML ASDIR IV Norepinephrine Bitartrate (NOREPINEPHRINE 8 MG/N S 250 ML) 250 ML TITRATE IV Ondansetron HCl (ZOFRAN) 4 MG Q6H PRN PRN IV Oxycodone HCl (ROXICODONE) 5 MG Q4H PRN PRN PO Oxycodone HCl (ROXICODONE) 10 MG Q4H PRN PRN PO Potassium Chloride (KCL 20MEQ/SWFI 100ML) 100 ML ASDIR PRN IV Sodium Bicarbonate (SODIUM BICARBONATE) 50 MEQ A SDIR PRN IV Sodium Chloride (SODIUM CHLORIDE 0.9%) 1,000 ML .Q20H IV Sodium Chloride (SODIUM CHLORIDE 0.9%) 250 ML Q2 4H IV Atorvastatin Calcium (LIPITOR) 40 MG 2100 PO Melatonin (Melatonin) 6 MG BEDTIME PO Sodium Chloride (SODIUM CHLORIDE) 20 ML ASDIR IV Acetaminophen (TYLENOL) 650 MG Q4H PRN PRN PO Physical Exam General appearance: alert, awake Diagnosis, Assessment Plan Hospital course to date: Laboratory Tests: 06/20 06/20 06/20 06/19 06/19 1645 0254 0250 [id number] 1819 Chemistry Sodium (134 - 147 mEq/L) 139 142 Potassium (3.4 - 5.0 mEq/L) 3.6 4.1 Chloride (100 - 108 mEq/L) 107 110 H Carbon Dioxide (21 - 33 mEq/l) 27 28 Anion Gap (0 - 20) 9 9 BUN (7 - 18 mg/dL) 18 17 Creatinine (0.6 - 1.3 mg/dL) 0.8 0.7 Glomerular Filtr Rate (80 - 90) 81.7 95.9 H Glucose (70 - 110 mg/dL) 151 H 125 H POC Glucose (70 - 110 MG/DL) 126 H 133 H 147 H Calcium (8.0 - 10.5 mg/dL) 9.0 8.8 Ionized Calcium [place] (1.09 - 1.30 MMOL/L) 1.17 Phosphorus (2.5 - 4.9 MG/DL) 3.7 Magnesium (1.80 - 2.40 mg/dL) 1.99 2.40 Total Bilirubin (0.0 - 1.0 mg/dL) 1.00 Direct Bilirubin (0.0 - 0.30 MG/DL) 0.50 H Indirect Bilirubin (MG/DL) 0.50 AST (15 - 37 IUnit/L) 27 ALT (30 - 65 IUnit/L) 13 L Total Alk Phosphatase (20 - 125 IUnit/L) 68 Total Protein (6.4 - 8.2 g/dL) 5.4 L Albumin (3.4 - 5.0 g/dL) 2.70 L Hematology WBC (4.5 - 11.0 x10 3/uL) 11.2 H RBC (3.54 - 5.02 x10 6/uL) 2.88 L Hgb (11.0 - 15.0 g/dL) 8.8 L Hct (33.0 - 45.0 %) 25.8 L MCV (81.0 - 99.0 fL) 89.6 MCH (27.0 - 33.0 pg) 30.6 MCHC (33.0 - 37.0 g/dL) 34.1 RDW (11.5 - 14.5 %) 13.8 Plt Count (150 - 400 x10 3/uL) 197 MPV (7.0 - 9.0 fL) 10.0 H Neut % (Auto) (56.0 - 77.0 %) 63.8 Lymph % (Auto) (14.0 - 32.0 %) 27.0 [place] % (Auto) (4.8 - 9.0 %) 6.3 Eos % (Auto) (0.3 - 3.7 %) 1.9 Baso % (Auto) (0.0 - 2.0 %) 0.3 Neut # (Auto) (2.0 - 7.6 x10 3/uL) 7.16 Lymph # (Auto) (1.0 - 3.8 x10 3/uL) 3.02 [place] # (Auto) (0.1 - 0.8 x10 3/uL) 0.70 Eos # (Auto) (0.0 - 0.2 x10 3/uL) 0.21 H Baso # (Auto) (0.0 - 0.2 x10 3/uL) 0.03 Abs Immat Gran (auto) (0.00 - 0.03 0.08 H x10 3/uL) Add Manual Diff NO Immature Gran % (0.0 - 2.0 %) 0.7 Nucleated RBC % (0 - 0 %) 0.4 H Nucleated RBCs # (Man) (0.0 - 0.1 0.04 x10 3/uL) Recent Impressions: RADIOLOGY - XR CHEST 1 V 06/20 0521 Report Impression - Status: SIGNED Entered: 06/20/2022 8886 IMPRESSION: 1. New small right pleural effusion. 2. Small residual left apical pneumothorax, stab le to diminished. 3. Stable pulmonary opacities and left basilar p leuroparenchymal disease. Impression By: Adam Sprague M.D. Laboratory Tests: 06/19 06/19 06/19 06/19 06/19 1445 0445 0340 0159 0010 Chemistry Sodium (134 - 147 mEq/L) 141 139 Potassium (3.4 - 5.0 mEq/L) 3.6 4.0 Chloride (100 - 108 mEq/L) 110 H 108 Carbon Dioxide (21 - 33 mEq/l) 29 27 Anion Gap (0 - 20) 5 8 BUN (7 - 18 mg/dL) 18 19 H Creatinine (0.6 - 1.3 mg/dL) 0.7 0.7 Glomerular Filtr Rate (80 - 90) 95.9 H 95.9 H Glucose (70 - 110 mg/dL) 156 H 181 H POC Glucose (70 - 110 MG/DL) 165 H 146 H 125 H Calcium (8.0 - 10.5 mg/dL) 9.0 9.0 Phosphorus (2.5 - 4.9 MG/DL) 1.9 L Magnesium (1.80 - 2.40 mg/dL) 1.86 1.78 L Total Bilirubin (0.0 - 1.0 mg/dL) 1.10 H Direct Bilirubin (0.0 - 0.30 MG/DL) 0.50 H Indirect Bilirubin (MG/DL) 0.60 AST (15 - 37 IUnit/L) 39 H ALT (30 - 65 IUnit/L) 14 L Total Alk Phosphatase (20 - 125 IUnit/L) 61 Total Protein (6.4 - 8.2 g/dL) 5.3 L Albumin (3.4 - 5.0 g/dL) 2.80 L Hematology WBC (4.5 - 11.0 x10 3/uL) 10.3 RBC (3.54 - 5.02 x10 6/uL) 2.80 L Hgb (11.0 - 15.0 g/dL) 8.5 L Hct (33.0 - 45.0 %) 25.1 L MCV (81.0 - 99.0 fL) 89.6 MCH (27.0 - 33.0 pg) 30.4 MCHC (33.0 - 37.0 g/dL) 33.9 RDW (11.5 - 14.5 %) 14.1 Plt Count (150 - 400 x10 3/uL) 104 L MPV (7.0 - 9.0 fL) 10.7 H Neut % (Auto) (56.0 - 77.0 %) 74.7 Lymph % (Auto) (14.0 - 32.0 %) 17.0 [place] % (Auto) (4.8 - 9.0 %) 5.1 Eos % (Auto) (0.3 - 3.7 %) 2.0 Baso % (Auto) (0.0 - 2.0 %) 0.3 Neut # (Auto) (2.0 - 7.6 x10 3/uL) 7.68 H Lymph # (Auto) (1.0 - 3.8 x10 3/uL) 1.75 [place] # (Auto) (0.1 - 0.8 x10 3/uL) 0.52 Eos # (Auto) (0.0 - 0.2 x10 3/uL) 0.21 H Baso # (Auto) (0.0 - 0.2 x10 3/uL) 0.03 Abs Immat Gran (auto) (0.00 - 0.03 0.09 H x10 3/uL) Add Manual Diff NO Immature Gran % (0.0 - 2.0 %) 0.9 Nucleated RBC % (0 - 0 %) 0.2 H Nucleated RBCs # (Man) (0.0 - 0.1 0.02 x10 3/uL) 06/18 Chemistry POC Glucose (70 - 110 MG/DL) 103 114 H Recent Impressions: RADIOLOGY - XR CHEST 1 V 06/19 0705 Report Impression - Status: SIGNED Entered: 06/19/2022 0843 IMPRESSION: 1. Stable postoperative chest following drainage tube removal. 2. Small residual left apical pneumothorax, unch anged. 3. Stable pulmonary opacities and left basilar p leuroparenchymal disease. Impression By: Adam Sprague M.D. Laboratory Tests: 06/18 06/18 06/18 06/18 06/18 1601 1600 1545 7583 0335 Blood Gas Puncture Site Art Line O2 Saturation (90 - 100 %) 97.4 ABG pH (7.35 - 7.45) 7.436 ABG pCO2 (35.0 - 45 mmHg) 41.2 ABG pO2 (80 - 100.0 mmHg) 93.6 ABG HCO3 (22.0 - 26.0 MMOL/L) 27.7 H ABG Total CO2 28.9 ABG Base Excess (-4.0 - 4.0 MMOL/L) 3.5 ABG Hematocrit (33.0 - 45.0 %) 24 L ABG Hemoglobin (11.0 - 15.0 G/DL) 8.1 L Sodium (134 - 147 mmol/L) 140 Potassium (3.4 - 5.0 mmol/L) 4.1 Chloride (100 - 108 mmol/L) 104 Ionized Calcium (1.12 - 1.32 MMOL/L) 1.34 H Lactic Acid (0.9 - 1.7 mmol/l) 0.8 L Temperature (F) 99 O2 Delivery Device Cannula Chemistry Sodium (134 - 147 mEq/L) 141 Potassium (3.4 - 5.0 mEq/L) 4.2 Chloride (100 - 108 mEq/L) 110 H Carbon Dioxide (21 - 33 mEq/l) 26 Anion Gap (0 - 20) 9 BUN (7 - 18 mg/dL) 23 H Creatinine (0.6 - 1.3 mg/dL) 0.9 POC Creatinine (0.6 - 1.0 mg/dL) 0.6 Glomerular Filtr Rate (80 - 90) 71.0 L Glucose (70 - 110 mg/dL) 184 H POC Glucose (70 - 110 MG/DL) 163 H 152 H 193 H POC Glucose (mg/dL) (70 - 110 MG/DL) 175 H Calcium (8.0 - 10.5 mg/dL) 8.9 06/18 1800 Blood Gas Puncture Site Art Line O2 Saturation (90 - 100 %) 94.9 ABG pH (7.35 - 7.45) 7.317 L ABG pCO2 (35.0 - 45 mmHg) 54.1 *H ABG pO2 (80 - 100.0 mmHg) 83.3 ABG HCO3 (22.0 - 26.0 MMOL/L) 27.7 H ABG Total CO2 29.4 ABG Base Excess (-4.0 - 4.0 MMOL/L) 1.6 ABG Hematocrit (33.0 - 45.0 %) 25 L ABG Hemoglobin (11.0 - 15.0 G/DL) 8.5 L Sodium (134 - 147 mmol/L) 140 Potassium (3.4 - 5.0 mmol/L) 4.2 Chloride (100 - 108 mmol/L) 106 Ionized Calcium (1.12 - 1.32 MMOL/L) 1.35 H Lactic Acid (0.9 - 1.7 mmol/l) 0.8 L O2 Delivery Device [facility] Chemistry Sodium (134 - 147 mEq/L) 141 Potassium (3.4 - 5.0 mEq/L) 4.4 Chloride (100 - 108 mEq/L) 111 H Carbon Dioxide (21 - 33 mEq/l) 26 Anion Gap (0 - 20) 9 BUN (7 - 18 mg/dL) 19 H Creatinine (0.6 - 1.3 mg/dL) 1.0 POC Creatinine (0.6 - 1.0 mg/dL) 1.0 Glomerular Filtr Rate (80 - 90) 62.5 L Glucose (70 - 110 mg/dL) 203 H POC Glucose (70 - 110 MG/DL) 176 H 156 H 155 H POC Glucose (mg/dL) (70 - 110 MG/DL) 206 H Calcium (8.0 - 10.5 mg/dL) 8.8 Magnesium (1.80 - 2.40 mg/dL) 2.21 Total Bilirubin (0.0 - 1.0 mg/dL) 1.00 Direct Bilirubin (0.0 - 0.30 MG/DL) 0.50 H Indirect Bilirubin (MG/DL) 0.50 AST (15 - 37 IUnit/L) 55 H ALT (30 - 65 IUnit/L) 13 L Total Alk Phosphatase (20 - 125 IUnit/L) 59 Total Protein (6.4 - 8.2 g/dL) 5.8 L Albumin (3.4 - 5.0 g/dL) 3.40 TSH (0.42 - 5.47) 0.38 L Free T4 (0.77 - 1.61 ng/dL) 1.2 Hematology WBC (4.5 - 11.0 x10 3/uL) 14.2 H RBC (3.54 - 5.02 x10 6/uL) 2.96 L Hgb (11.0 - 15.0 g/dL) 9.0 L Hct (33.0 - 45.0 %) 26.9 L MCV (81.0 - 99.0 fL) 90.9 MCH (27.0 - 33.0 pg) 30.4 MCHC (33.0 - 37.0 g/dL) 33.5 RDW (11.5 - 14.5 %) 14.7 H Plt Count (150 - 400 x10 3/uL) 90 L MPV (7.0 - 9.0 fL) 10.9 H Neut % (Auto) (56.0 - 77.0 %) 80.1 H Lymph % (Auto) (14.0 - 32.0 %) 12.5 L [place] % (Auto) (4.8 - 9.0 %) 6.3 Eos % (Auto) (0.3 - 3.7 %) 0.2 L Baso % (Auto) (0.0 - 2.0 %) 0.2 Neut # (Auto) (2.0 - 7.6 x10 3/uL) 11.34 H Lymph # (Auto) (1.0 - 3.8 x10 3/uL) 1.77 [place] # (Auto) (0.1 - 0.8 x10 3/uL) 0.89 H Eos # (Auto) (0.0 - 0.2 x10 3/uL) 0.03 Baso # (Auto) (0.0 - 0.2 x10 3/uL) 0.03 Abs Immat Gran (auto) (0.00 - 0.03 0.10 H x10 3/uL) Add Manual Diff NO Immature Gran % (0.0 - 2.0 %) 0.7 Nucleated RBC % (0 - 0 %) 0.1 H Nucleated RBCs # (Man) (0.0 - 0.1 0.02 x10 3/uL) Recent Impressions: RADIOLOGY - XR CHEST 1 V 06/18 904 Report Impression - Status: SIGNED Entered: 06/18/2022 1028 IMPRESSION: 1. Mild enlarged cardiac silhouette. 2. [id number] pulmonary edema versus infil trates. 3. Linear left perihilar pulmonary atelectasis, scarring. Decreased lung volumes. 4. Left-sided chest tube with small in the thora x in the left apical chest. Impression By: [email or web address] - Victor Manuel Mcallister M.D. 1. Diabetes mellitus type 2 uncontrolled with co mplications. 2. Multivessel coronary artery disease. 3. Status post CABG 4. Hypertension 5. Hyperlipidemia 6. Obesity Blood sugar 125-126 mg/dL. HbA1c 8.3%. Adjust insulin drip settings and start on Lantus at bedtime. Electronically Signed by Jurgen Wolf MD on at 1722 RPT #:[id number] END OF REPORT 2022-06-20 15:16:00-00:00 [facility] REPORT#:[id number] REPORT STATUS: Signed DATE:06/20/22 TIME: 1516 PATIENT: KALA TURPIN UNIT #: [id number] ROOM/BED: [facility] [place] : 57 AGE: 67 SEX: F ATTEND: Rosa Murrell MD ADM AUTHOR: Natasha Morrissey MD * ALL edits or amendments must be made on the [employer] document * Clinical Note Note: STS Score Risk of Mortality = 1.389% Renal Failure: 1.577% Permanent Stroke: 1.298% Prolonged Ventilation: 6.452% DSW Infection: 0.379% Reoperation: 1.202% Morbidity or Mortality: 10.355% Short Length of Stay: 41.394% Long Length of Stay: 3.207% Electronically Signed by Natasha Morrissey MD on 05/25 11/15 at 1517 RPT #:[id number] END OF REPORT 2022-06-20 13:15:00-00:00 [facility] ([facility]) Cardiology Progress Note REPORT#:[id number] REPORT STATUS: Signed DATE:06/20/22 TIME: 1315 PATIENT: KALA TURPIN UNIT #: [id number] [place] [facility] [place] : 59 AGE: 67 SEX: F ATTEND: Reji Patel MD ADM AUTHOR: Ursula Perkins CNP * ALL edits or amendments must be made on the [employer] document * Ursula Perkins 06/20/22 1315: Subjective Comments: OOB to chair, no obvious distress. Tele afib wit h controlled rate. Objective General VS/I O: 24 hour I O ending at 0700: 06/20 0700 06/19 1900 Intake Total 1255.00 722.00 Output Total 925 1650 Balance 330.00 -928.00 Intake, IV 755.00 722.00 Intake, Oral 500 Output, Urine 925 1650 Patient 101.1 kg Weight Weight Standing scale Measurement Method Vital Signs: Date Time Temp Pulse Resp B/P B/P Pulse O2 O2 F low FiO2 Mean Ox Delivery Rate 06/20 0948 100 Room air 21 06/20 0900 133/61 88 06/20 0900 36.9 84 14 152/72 99 96 06/20 0831 129/77 96 06/20 0831 36.8 84 16 149/70 96 96 06/20 0801 107/55 75 06/20 0801 36.8 80 24 118/56 77 96 06/20 0800 36.8 79 27 117/65 84 95 06/20 0730 112/55 75 06/20 0730 36.8 75 14 131/59 83 96 06/20 0700 113/55 77 06/20 0700 36.9 75 12 132/63 86 95 06/20 0600 138/62 89 06/20 0600 37.2 81 12 143/67 91 95 06/20 0500 96/55 71 06/20 0500 37.1 71 12 109/53 69 96 06/20 0400 97/59 73 06/20 0400 37.1 76 12 118/57 76 95 06/20 0348 95 Room air 06/20 0300 100/72 82 06/20 0300 37.2 79 12 132/66 86 96 06/20 0200 94/53 69 06/20 0200 37.2 73 19 103/56 71 100 06/20 0100 95/52 70 06/20 0100 37.3 69 12 105/56 72 100 06/20 0000 93/62 69 06/20 0000 37.2 80 14 97/52 66 100 06/19 2300 102/53 71 06/19 2300 37.2 77 14 110/59 74 99 06/19 2200 98/58 74 06/19 2200 37.2 81 13 114/54 72 97 06/19 2100 136/65 93 06/19 2100 37.1 87 20 149/74 97 100 06/20 1999 133/65 94 06/20 1999 37.1 83 12 152/72 98 100 06/19 194 99 Nasal 2 cannula 06/19 1930 High flow 1 nasal cannula 06/19 1900 135/68 97 06/19 1900 37.1 88 16 146/74 98 99 06/19 1730 141/65 93 06/19 1730 37.1 96 18 146/77 101 100 06/19 1700 97/59 74 06/19 1700 37.1 85 17 106/53 68 100 06/19 1645 117/58 81 06/19 1645 37.1 90 13 126/63 82 100 06/19 1630 118/58 83 06/19 1630 37.1 77 12 131/63 84 100 06/19 1615 141/71 96 06/19 1615 37.1 93 13 148/74 99 99 06/19 1606 136/75 99 06/19 1606 37.1 92 23 139/68 93 99 06/19 1545 37.1 90 14 105/50 66 99 06/19 1530 37.1 87 14 106/51 67 100 06/19 1515 37.1 90 13 118/56 75 99 06/19 1500 37.1 96 14 116/55 72 99 06/19 1430 37.2 96 13 116/56 74 99 06/19 1400 37.2 88 14 108/53 68 99 06/19 1351 37.2 89 16 94/53 67 98 06/19 1345 37.2 91 13 97/49 64 98 06/19 1330 37.3 102 12 120/59 78 100 PATIENT WEIGHT: Weight (lb): 222 Weight (oz): 14.2 Weight (kg): 101.100 Medications: Active Meds + DC'd Last 24 Hrs Amiodarone HCl (CORDARONE) 400 MG BID PO (CKD) Amiodarone HCl (NEXTERONE 150MG/D5W 100ML) 100 M L STAT STA IV (DC) Furosemide (LASIX 20MG INJ) 20 MG ONCE ONE IV ( DC) Furosemide (LASIX 20MG INJ) 20 MG ONCE ONE IV (D C) Ipratropium [place] (ATROVENT) 500 MCG Q2H PRN P RN INH Cyanocobalamin (Vitamin B-12 500 mcg tab) 500 MC G DAILY PO Ferrous Sulfate (FERROUS SULFATE) 325 MG DAILY P O Insulin Glargine (Lantus/Semglee) 12 UNIT BEDTIM E SUBQ Amiodarone HCl (AMIODARONE HCL) 450 MG ASDIR IV (CKD) Dextrose/Water (D5%W NON-DEHP) 250 ML Bisacodyl (DULCOLAX) 10 MG ONCE PRN RECTAL Magnesium Hydroxide (MILK OF MAGNESIA) 30 ML ONC E PRN PO Heparin Sodium (HEPARIN 5000 UNITS/ML) 5,000 UNI T Q12HR SUBQ Dextrose/Water (DEXTROSE 10% IN WATER) 250 ML DIR PRN IV (CKD) Insulin Human Regular (HumuLIN R) 100 UNIT ASDIR IV (CKD) Sodium Chloride (SODIUM CHLORIDE 0.9%) 99 ML Dopamine HCl/Dextrose (DOPamine 400MG/D5W 250ML) 250 ML ASDIR IV Clopidogrel Bisulfate (Plavix) 75 MG DAILY PO Polyethylene Glycol (MIRALAX) 17 GM DAILY PO Pantoprazole (PROTONIX) 40 MG DAILY@0600 PO Docusate Sodium (COLACE) 100 MG BID PO Gabapentin (NEURONTIN) 200 MG BID PO Metoprolol Tartrate (LOPRESSOR) 12.5 MG Q12HR PO Mupirocin (BACTROBAN 2% 22 GM OINTMENT) 1 APPLIC BID NASAL Sennosides (Senna Lax 8.6 MG TABLET) 17.2 MG BED TIME PO Aspirin (ASPIRIN) 81 MG DAILY PO Amiodarone HCl (CORDARONE) 200 MG TID PO (DC) Acetaminophen (TYLENOL) 650 MG Q4H PRN PRN PO Acetaminophen (TYLENOL) 650 MG Q4H PRN PRN RECTA L Calcium Chloride (CALCIUM CHLORIDE) 1 GM ASDIR P RN IV Dextrose/Water (DEXTROSE 10% IN WATER) 125 ML DIR PRN IV (CKD) Dextrose/Water (DEXTROSE 10% IN WATER) 250 ML DIR PRN IV (CKD) Epinephrine (ADRENALIN CHLORIDE) 4 MG ASDIR IV Dextrose/Water (DEXTROSE 5% WATER) 246 ML Glucagon (GLUCAGON) 1 MG ASDIR PRN IM Ipratropium [place] (ATROVENT) 500 MCG RTQ4H INH Magnesium Sulfate (MAGNESIUM SULFATE 4GM/SWFI 10 0ML) 100 ML ASDIR PRN IV Magnesium Sulfate (MAGNESIUM SULFATE 2GM/SWFI 50 ML) 50 ML ASDIR PRN IV Magnesium Sulfate/Dextrose (MAGNESIUM SULFATE 1G M/D5W 100ML) 100 ML ASDIR PRN IV Nitroglycerin/Dextrose (NITROGLYCERIN 50,000MCG/ D5W 250ML) 250 ML ASDIR IV Norepinephrine Bitartrate (NOREPINEPHRINE 8 MG/N S 250 ML) 250 ML TITRATE IV Ondansetron HCl (ZOFRAN) 4 MG Q6H PRN PRN IV Oxycodone HCl (ROXICODONE) 5 MG Q4H PRN PRN PO Oxycodone HCl (ROXICODONE) 10 MG Q4H PRN PRN PO Potassium Chloride (KCL 20MEQ/SWFI 100ML) 100 ML ASDIR PRN IV Sodium Bicarbonate (SODIUM BICARBONATE) 50 MEQ A SDIR PRN IV Sodium Chloride (SODIUM CHLORIDE 0.9%) 1,000 ML .Q20H IV Sodium Chloride (SODIUM CHLORIDE 0.9%) 250 ML Q2 4H IV Atorvastatin Calcium (LIPITOR) 40 MG 2100 PO Melatonin (Melatonin) 6 MG BEDTIME PO Sodium Chloride (SODIUM CHLORIDE) 20 ML ASDIR IV Acetaminophen (TYLENOL) 650 MG Q4H PRN PRN PO Physical Exam General appearance: alert, awake Cardiovascular: CV assessment: irregularly irregular, pedal maverick ma Respiratory: decreased breath sounds, on oxygen Abdomen: soft, non-tender, normal bowel sounds, no distention Genitourinary: urinary catheter, urine Lower extremity: LE assessment: edema, no calf tenderness 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, oriented X 3, normal speech Skin: dry, intact, normal color Psychiatry: normal affect, normal judgment/insig ht, normal mood Results Findings/Data: Laboratory Tests 06/20 06/20 06/19 06/19 0254 0250 2159 1819 Chemistry Sodium (134 - 147 mEq/L) 142 Potassium (3.4 - 5.0 mEq/L) 4.1 Chloride (100 - 108 mEq/L) 110 H Carbon Dioxide (21 - 33 mEq/l) 28 Anion Gap (0 - 20) 9 BUN (7 - 18 mg/dL) 17 Creatinine (0.6 - 1.3 mg/dL) 0.7 Glomerular Filtr Rate (80 - 90) 95.9 H Glucose (70 - 110 mg/dL) 125 H POC Glucose (70 - 110 MG/DL) 126 H 133 H 147 H Calcium (8.0 - 10.5 mg/dL) 8.8 Ionized Calcium [place] (1.09 - 1.30 MMOL/L) 1.17 Phosphorus (2.5 - 4.9 MG/DL) 3.7 Magnesium (1.80 - 2.40 mg/dL) 2.40 Total Bilirubin (0.0 - 1.0 mg/dL) 1.00 Direct Bilirubin (0.0 - 0.30 MG/DL) 0.50 H Indirect Bilirubin (MG/DL) 0.50 AST (15 - 37 IUnit/L) 27 ALT (30 - 65 IUnit/L) 13 L Total Alk Phosphatase (20 - 125 IUnit/L) 68 Total Protein (6.4 - 8.2 g/dL) 5.4 L Albumin (3.4 - 5.0 g/dL) 2.70 L 06/19 1445 Chemistry Sodium (134 - 147 mEq/L) 141 Potassium (3.4 - 5.0 mEq/L) 3.6 Chloride (100 - 108 mEq/L) 110 H Carbon Dioxide (21 - 33 mEq/l) 29 Anion Gap (0 - 20) 5 BUN (7 - 18 mg/dL) 18 Creatinine (0.6 - 1.3 mg/dL) 0.7 Glomerular Filtr Rate (80 - 90) 95.9 H Glucose (70 - 110 mg/dL) 156 H Calcium (8.0 - 10.5 mg/dL) 9.0 Ionized Calcium Jonas (1.09 - 1.30 MMOL/L) 1.21 Phosphorus (2.5 - 4.9 MG/DL) 1.9 L Magnesium (1.80 - 2.40 mg/dL) 1.86 Laboratory Tests 06/20 0250 Hematology WBC (4.5 - 11.0 x10 3/uL) 11.2 H RBC (3.54 - 5.02 x10 6/uL) 2.88 L Hgb (11.0 - 15.0 g/dL) 8.8 L Hct (33.0 - 45.0 %) 25.8 L MCV (81.0 - 99.0 fL) 89.6 MCH (27.0 - 33.0 pg) 30.6 MCHC (33.0 - 37.0 g/dL) 34.1 RDW (11.5 - 14.5 %) 13.8 Plt Count (150 - 400 x10 3/uL) 197 MPV (7.0 - 9.0 fL) 10.0 H Neut % (Auto) (56.0 - 77.0 %) 63.8 Lymph % (Auto) (14.0 - 32.0 %) 27.0 [place] % (Auto) (4.8 - 9.0 %) 6.3 Eos % (Auto) (0.3 - 3.7 %) 1.9 Baso % (Auto) (0.0 - 2.0 %) 0.3 Neut # (Auto) (2.0 - 7.6 x10 3/uL) 7.16 Lymph # (Auto) (1.0 - 3.8 x10 3/uL) 3.02 [place] # (Auto) (0.1 - 0.8 x10 3/uL) 0.70 Eos # (Auto) (0.0 - 0.2 x10 3/uL) 0.21 H Baso # (Auto) (0.0 - 0.2 x10 3/uL) 0.03 Abs Immat Gran (auto) (0.00 - 0.03 x10 3/uL) 0. 08 H Add Manual Diff NO Immature Gran % (0.0 - 2.0 %) 0.7 Nucleated RBC % (0 - 0 %) 0.4 H Nucleated RBCs # (Man) (0.0 - 0.1 x10 3/uL) 0.0 4 Laboratory Tests 06/20 06/19 0250 1445 Chemistry Magnesium (1.80 - 2.40 mg/dL) 2.40 1.86 Radiology data: Recent Impressions: RADIOLOGY - XR CHEST 1 V 06/20 0521 Report Impression - Status: SIGNED Entered: 06/20/2022 0834 IMPRESSION: 1. New small right pleural effusion. 2. Small residual left apical pneumothorax, stab le to diminished. 3. Stable pulmonary opacities and left basilar p leuroparenchymal disease. Impression By: Adam Sprague M.D. Results: labs reviewed, vital signs reviewed, [facility] personally rev'd Telemetry Interpretation: afib with controlled rate Diagnosis, Assessment Plan Plan discussed with: patient, nurse Free Text DxA P Notes Free Text DxA P Notes: 67-year-old female with medi dylan history of CAD, MA, prior PCI/MEG 11 years ago, hypertension, diabetes melli tus, CVA, peripheral neuropathy, Charcot's foot who presented to with chest pain. She was taken for left heart catheterization where she wa s found to have multivessel CAD with failed attempt to PCI the CUT OFF SAWYER LAD. Patient is transferred to [facility] facility for surgical revascularization. 1. Multivessel CAD CABG x 4 (LIN-LAD, SVG-Elisabet, SVG-OM, SVG-PDA) Continue aspirin, beta-xander, statin post-op anemia negative fluid balance - received IV lasix this morning 2. Hypertension BP stable continue BB 3. Diabetes mellitus Manage per primary team 4. Post-operative Afib s/p ALAA rebolused with amiodarone no on amiodarone 400 mg BID Continue supportive care. encourate IS Julius Washington 06/23/22 1214: Attestations Physician Attestation Agree w/findings plan: I have seen and examined the pt, I Agree with e findings and plan as documented by Ursula Perkins. at 1319 Electronically Signed by Julius Washington MD on at 1214 RPT #:[id number] END OF REPORT 2022-06-20 09:34:00-00:00 [facility] Cardiothoracic Surgery Prog REPORT#:[id number] REPORT STATUS: Signed DATE:06/20/22 TIME: 933 PATIENT: KALA TURPIN UNIT #: [id number] ROOM/BED: [place] [address] : 59 AGE: 67 SEX: F ATTEND: Rosa Murrell MD ADM AUTHOR: [facility] * ALL edits or amendments must be made on the [employer] document * General Post-op: day 4 Status post: 06/16/22 CABG x 4 (LIN-LAD, SVG-Elisabet, SVG-OM, SVG-PDA) ALAA NAYAN (RGSV) Posterior pericardiotomy Subjective Chief complaint: Follow up CABG Resting comfortable, OOB in chair Review of Systems Constitutional: Reports: generalized weakness. Denies: chills, f atigue. Skin: Denies: diaphoresis, ecchymosis, laceration. Allergy/Immun: Denies: anaphylaxis, hives, rhinorrhea. Eyes: Denies: discharge, itching, eye pain. ENT: Denies: earache, mouth pain, throat pain, tootha spencer. Respiratory: Denies: pneumonia, SOB, wheezing. Cardiovascular: Denies: chest pain, palpitations. GI: Denies: abdominal pain, nausea, vomiting. : Denies: dysuria, flank pain. Musculoskeletal: Denies: extremity pain. Heme: Denies: petechiae. Endocrine: Denies: cold intolerance, polyphagia, weight los s. Neuro: Denies: change in LOC, dizziness, seizure, synco pe, unable to speak. All systems rev neg: except as marked Objective General VS/I O Last Documented: Result Date Time B/P 133/61 06/20 0900 B/P Mean 88 06/20 0900 Pulse Ox 96 06/20 0900 Temp 98.4 06/20 0900 Pulse 84 06/20 0900 Resp 14 06/20 0900 O2 Delivery Room air 06/20 0348 O2 Flow Rate 2 06/19 1943 FiO2 40 06/16 1748 24 hour I O ending at 0700: 06/20 0700 06/19 1900 Intake Total 1255.00 722.00 Output Total 925 1650 Balance 330.00 -928.00 Intake, IV 755.00 722.00 Intake, Oral 500 Output, Urine 925 1650 Patient 101.1 kg Weight Weight Standing scale Measurement Method PATIENT WEIGHT: Weight (lb): 222 Weight (oz): 14.2 Weight (kg): 101.100 Dietitian Nutrition assessment The data set between the solid lines has been im ported from the dietitian's assessment. BMI Calculated: 42.1 Nutrition related diagnosis: Morbid obesity Nutrition diagnosis details: BMI 40 or more Nutrition problem: Increased nutrient needs Nutrition etiology: SURGERY Nutrition signs and symptoms: ESTIMATED NEEDS Nutrition prescription: ADAT TO REGULAR DIET S/P EXTUBATION IF PO INTAKE <50% CONSIDER ONS Dietitian name: Kostas Beach, DIET Assessment completed: 06/16/22 Physical Exam General appearance: alert, awake, oriented Wound/incision: Location: sternal Site condition: dressing clean dry, dressing in tact HEENT: anicteric, mucosal membranes moist, pupil s reactive to light Neck: full range of motion, non-tender, supple/n o meningismus Cardiovascular: normal heart sounds, regular rat e rhythm Respiratory: decreased breath sounds, aerating w ell, symmetric expansion, no distress Abdomen: soft, non-tender Genitourinary: urine Extremities: dry, moves all Musculoskeletal: full range of motion 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, oriented X 3 Skin: dry, intact Psychiatry: normal affect, normal mood Current Medications Medications: Active Meds + DC'd Last 24 Hrs Furosemide (LASIX 20MG INJ) 20 MG ONCE ONE IV (D C) Furosemide (LASIX 20MG INJ) 20 MG ONCE ONE IV (D C) Magnesium Sulfate/Dextrose (MAGNESIUM SULFATE 1G M/D5W 100ML) 100 ML ONCE ONE IV (DC) Potassium Chloride (POTASSIUM CHLORIDE 20MEQ TAB .ER) 40 MEQ ONCE ONE PO (DC) Potassium Phosphate (POTASSIUM PHOSPHATE) 20 MM ONCE ONE IV (DC) Sodium Chloride (SODIUM CHLORIDE 0.9%) 250 ML Potassium Chloride (K-SHWETHA 20 MEQ PACKET) 40 MEQ ONCE ONE FEED-TUBE (DC) Ipratropium [place] (ATROVENT) 500 MCG Q2H PRN P RN INH Furosemide (LASIX 20MG INJ) 20 MG ONCE ONE IV (D C) Magnesium Sulfate/Dextrose (MAGNESIUM SULFATE 1G M/D5W 100ML) 100 ML ONCE ONE IV (DC) Cyanocobalamin (Vitamin B-12 500 mcg tab) 500 MC G DAILY PO Ferrous Sulfate (FERROUS SULFATE) 325 MG DAILY P O Insulin Glargine (Lantus/Semglee) 12 UNIT BEDTIM E SUBQ Amiodarone HCl (AMIODARONE HCL) 450 MG ASDIR IV (CKD) Dextrose/Water (D5%W NON-DEHP) 250 ML Acetylcysteine (MUCOMYST FOR RT) 200 MG RTQ8H NE B Bisacodyl (DULCOLAX) 10 MG ONCE PRN RECTAL Magnesium Hydroxide (MILK OF MAGNESIA) 30 ML ONC E PRN PO Heparin Sodium (HEPARIN 5000 UNITS/ML) 5,000 UNI T Q12HR SUBQ Dextrose/Water (DEXTROSE 10% IN WATER) 250 ML DIR PRN IV (CKD) Insulin Human Regular (HumuLIN R) 100 UNIT ASDIR IV (CKD) Sodium Chloride (SODIUM CHLORIDE 0.9%) 99 ML Dopamine HCl/Dextrose (DOPamine 400MG/D5W 250ML) 250 ML ASDIR IV Clopidogrel Bisulfate (Plavix) 75 MG DAILY PO Polyethylene Glycol (MIRALAX) 17 GM DAILY PO Pantoprazole (PROTONIX) 40 MG DAILY@0600 PO Docusate Sodium (COLACE) 100 MG BID PO Gabapentin (NEURONTIN) 200 MG BID PO Metoprolol Tartrate (LOPRESSOR) 12.5 MG Q12HR PO Mupirocin (BACTROBAN 2% 22 GM OINTMENT) 1 APPLIC BID NASAL Sennosides (Senna Lax 8.6 MG TABLET) 17.2 MG BED TIME PO Aspirin (ASPIRIN) 81 MG DAILY PO Amiodarone HCl (CORDARONE) 200 MG TID PO Acetaminophen (TYLENOL) 650 MG Q4H PRN PRN PO Acetaminophen (TYLENOL) 650 MG Q4H PRN PRN RECTA L Calcium Chloride (CALCIUM CHLORIDE) 1 GM ASDIR P RN IV Dextrose/Water (DEXTROSE 10% IN WATER) 125 ML DIR PRN IV (CKD) Dextrose/Water (DEXTROSE 10% IN WATER) 250 ML DIR PRN IV (CKD) Epinephrine (ADRENALIN CHLORIDE) 4 MG ASDIR IV Dextrose/Water (DEXTROSE 5% WATER) 246 ML Glucagon (GLUCAGON) 1 MG ASDIR PRN IM Ipratropium [place] (ATROVENT) 500 MCG RTQ4H INH Magnesium Sulfate (MAGNESIUM SULFATE 4GM/SWFI 10 0ML) 100 ML ASDIR PRN IV Magnesium Sulfate (MAGNESIUM SULFATE 2GM/SWFI 50 ML) 50 ML ASDIR PRN IV Magnesium Sulfate/Dextrose (MAGNESIUM SULFATE 1G M/D5W 100ML) 100 ML ASDIR PRN IV Nitroglycerin/Dextrose (NITROGLYCERIN 50,000MCG/ D5W 250ML) 250 ML ASDIR IV Norepinephrine Bitartrate (NOREPINEPHRINE 8 MG/N S 250 ML) 250 ML TITRATE IV Ondansetron HCl (ZOFRAN) 4 MG Q6H PRN PRN IV Oxycodone HCl (ROXICODONE) 5 MG Q4H PRN PRN PO Oxycodone HCl (ROXICODONE) 10 MG Q4H PRN PRN PO Potassium Chloride (KCL 20MEQ/SWFI 100ML) 100 ML ASDIR PRN IV Sodium Bicarbonate (SODIUM BICARBONATE) 50 MEQ A SDIR PRN IV Sodium Chloride (SODIUM CHLORIDE 0.9%) 1,000 ML .Q20H IV Sodium Chloride (SODIUM CHLORIDE 0.9%) 250 ML Q2 4H IV Atorvastatin Calcium (LIPITOR) 40 MG 2100 PO Melatonin (Melatonin) 6 MG BEDTIME PO Sodium Chloride (SODIUM CHLORIDE) 20 ML ASDIR IV Acetaminophen (TYLENOL) 650 MG Q4H PRN PRN PO Results Findings/Data: Laboratory Tests 06/20 06/20 06/19 06/19 0254 0250 2159 1819 Chemistry Sodium (134 - 147 mEq/L) 142 Potassium (3.4 - 5.0 mEq/L) 4.1 Chloride (100 - 108 mEq/L) 110 H Carbon Dioxide (21 - 33 mEq/l) 28 Anion Gap (0 - 20) 9 BUN (7 - 18 mg/dL) 17 Creatinine (0.6 - 1.3 mg/dL) 0.7 Glomerular Filtr Rate (80 - 90) 95.9 H Glucose (70 - 110 mg/dL) 125 H POC Glucose (70 - 110 MG/DL) 126 H 133 H 147 H Calcium (8.0 - 10.5 mg/dL) 8.8 Ionized Calcium Jonas (1.09 - 1.30 MMOL/L) 1.17 Phosphorus (2.5 - 4.9 MG/DL) 3.7 Magnesium (1.80 - 2.40 mg/dL) 2.40 Total Bilirubin (0.0 - 1.0 mg/dL) 1.00 Direct Bilirubin (0.0 - 0.30 MG/DL) 0.50 H Indirect Bilirubin (MG/DL) 0.50 AST (15 - 37 IUnit/L) 27 ALT (30 - 65 IUnit/L) 13 L Total Alk Phosphatase (20 - 125 IUnit/L) 68 Total Protein (6.4 - 8.2 g/dL) 5.4 L Albumin (3.4 - 5.0 g/dL) 2.70 L 06/19 1445 Chemistry Sodium (134 - 147 mEq/L) 141 Potassium (3.4 - 5.0 mEq/L) 3.6 Chloride (100 - 108 mEq/L) 110 H Carbon Dioxide (21 - 33 mEq/l) 29 Anion Gap (0 - 20) 5 BUN (7 - 18 mg/dL) 18 Creatinine (0.6 - 1.3 mg/dL) 0.7 Glomerular Filtr Rate (80 - 90) 95.9 H Glucose (70 - 110 mg/dL) 156 H Calcium (8.0 - 10.5 mg/dL) 9.0 Ionized Calcium Jonas (1.09 - 1.30 MMOL/L) 1.21 Phosphorus (2.5 - 4.9 MG/DL) 1.9 L Magnesium (1.80 - 2.40 mg/dL) 1.86 Laboratory Tests 06/20 0250 Hematology WBC (4.5 - 11.0 x10 3/uL) 11.2 H RBC (3.54 - 5.02 x10 6/uL) 2.88 L Hgb (11.0 - 15.0 g/dL) 8.8 L Hct (33.0 - 45.0 %) 25.8 L MCV (81.0 - 99.0 fL) 89.6 MCH (27.0 - 33.0 pg) 30.6 MCHC (33.0 - 37.0 g/dL) 34.1 RDW (11.5 - 14.5 %) 13.8 Plt Count (150 - 400 x10 3/uL) 197 MPV (7.0 - 9.0 fL) 10.0 H Neut % (Auto) (56.0 - 77.0 %) 63.8 Lymph % (Auto) (14.0 - 32.0 %) 27.0 [place] % (Auto) (4.8 - 9.0 %) 6.3 Eos % (Auto) (0.3 - 3.7 %) 1.9 Baso % (Auto) (0.0 - 2.0 %) 0.3 Neut # (Auto) (2.0 - 7.6 x10 3/uL) 7.16 Lymph # (Auto) (1.0 - 3.8 x10 3/uL) 3.02 [place] # (Auto) (0.1 - 0.8 x10 3/uL) 0.70 Eos # (Auto) (0.0 - 0.2 x10 3/uL) 0.21 H Baso # (Auto) (0.0 - 0.2 x10 3/uL) 0.03 Abs Immat Gran (auto) (0.00 - 0.03 x10 3/uL) 0. 08 H Add Manual Diff NO Immature Gran % (0.0 - 2.0 %) 0.7 Nucleated RBC % (0 - 0 %) 0.4 H Nucleated RBCs # (Man) (0.0 - 0.1 x10 3/uL) 0.0 4 Radiology data: Recent Impressions: RADIOLOGY - XR CHEST 1 V 06/20 0521 Report Impression - Status: SIGNED Entered: 06/20/2022 0834 IMPRESSION: 1. New small right pleural effusion. 2. Small residual left apical pneumothorax, stab le to diminished. 3. Stable pulmonary opacities and left basilar p leuroparenchymal disease. Impression By: Adam Sprague M.D. Results: labs reviewed, vital signs stable, ryth m personally rev'd, x-ray personally reviewed, current med profile rev'd Treatment Prophylaxis Treatment Prophylaxis Oxygen: nasal cannula CVC/PICC documentation: The data below has been imported from nursing do cumentation. Any exceptions have been noted below under Provider comments. CVC/PICC insertion date/time: CVC multi lumen tr iple Internal jugular Right Inserted 06/16/22 0710 Provider comments on imported nursing data: [] Diagnosis, Assessment Plan Hospital course to date: Very pleasant 67-year-old female with past medic al history of stroke, hypertension, hyperlipidemia, diabetes (on insul in), obstructive sleep apnea, PAD, 2 MIs in the past statu s post PCI/stenting (on Plavix at home), NonHodgkin' s lymphoma (2006) who was at home working on her computer when she suddenly developed severe chest pain radiating to left sh oulder and jaw. Presented to the emergency room, was evaluated by car diology and underwent left heart cath. Coronary angiogram revealed severe multivessel coronary artery disease involving LAD which is totally occluded after the midporti on; diagonal OM branch with proximal stenosis 60 to 70%, left circumflex wit h 80-90% stenosis. Patient transferred to [facility] for surgical revasc ularization. PLAN Coronary angiogram images re viewed with Dr. Rogel and findings discussed with the patient. Will benefit from surgical revascul arization. Initiate preop work-up for CABG Hold Plavix. Obtain platelet response test to Pl avix Carotid ultrasound Noncontrasted chest BLE venous Doppler for vein mapping and marking Completed echocardiogram Incentive spirometer teaching Physical therapy evaluation given Crystal Bayt syndro sd and limited mobilization Further recommendations to follow. 06/16/22 CABG x 4 (LIN-LAD, SVG-Elisabet, SVG-OM, SVG-PDA) ALAA EVH (RGSV) Posterior pericardiotomy 06/17/22 POD 1 Patient is alert and oriented, out of bed in dulce ir Labile blood pressure. Minimal pressor requireme nts, levo at 1, wean off as tolerated Transfuse 1 unit PRBC On 2l nasal cannula, encoura ge incentive spirometer use, nebs and deep breathing NSR on nutrition coordinator, no ectopy, epicardial pa cing wires on standby Keep both chest tubes and monitor outputs Cardiac diet Glycemic control on insulin drip, monitor blood sugars, consult endocrinology Bowel regimen protocol PT/OT DVT prophylaxis with SCDs and SQ heparin, GI pro phylaxis with PPI Monitor patient in CVICU Patient seen with Dr. Rogel, plan of care disc ussed with ICU team 06/18 No major events overnight, alert and oriented Wean O2 as tolerated. Encourage I-S On dopamine drip at 3 for renal perfusion; pt smith d low UOP yesterday Off levophed Cr 1.0 from 1.2. Strict I's and O's Chest tubes with minimal output; we will discont inue this morning Bowel regimen Glycemic control with insulin drip. Endocrinolog y following DVT prophylaxis with heparin subq Keep in CVICU today Pt seen and plan reviewed with Dr Rogel 06/19 POD 3 Patient in stable condition. Alert, awake, and o riented, oob in chair CXR and labs reviewed-stable Patient went into afib rvr- recieved amio bolus x 2 and amio drip Rebolus amio this am, Wean dopamine off and micah tor UOP and BP Monitor renal function, Cr 0.7 Strict I Os Cardiac diet, nutritional supplements SSI-glycemic control DVT ppx- SCDs and heparin SQ Continue supportive care in CVICU Rehab consulted Patient seen with Dr. Rogel, plan of care disc ussed with ICU team. 06/20/22 POD 4 Patient recovering well, alert, awake, and orien radha, no distress noted Breathing comfortable on ashlee m air, O2 sats 96%, Encourage I-S and deep breathing CXR shows small right pleural effusion, and stab le pulmonary opacities Remains a-fib rate controlled, on IV amio, rebol us amio today Discontinue staples and central line Diuresis with lasix 20 IV x 1 Strict I Os, daily weights GI consulted for patient fee ling food gets stuck in the middle of the esophagus, plan for EGD Rehab following DVT prophylaxis with subq heparin and SCDS Monitor patient in CVICU Patient seen with Dr. Rogel, plan of care disc ussed with ICU team. Plan discussed with: patient , admitting physician, consultants, nurse, interdisc care team at 1809 at 0439 RPT #:[id number] END OF REPORT 2022-06-20 09:06:00-00:00 [facility] ([facility]) GE Consultation Note REPORT#:[id number] REPORT STATUS: Signed DATE:06/20/22 TIME: 905 PATIENT: KALA TURPIN UNIT #: [id number] ROOM/BED: [place] [id number] : 57 AGE: 67 SEX: F ATTEND: Rosa Murrell MD ADM AUTHOR: Marivel Covington * ALL edits or amendments must be made on the el Navmii/computer document * Marivel Covington 06/20/22 0906: History of Present Illness Requesting clinician: Reva Murrell MD Reason for consult: Food getting stuck PCP: PCP: Undefined Provider HPI: This is a 67-year-old female with past m edical history significant for stroke, hypertension, hyperlipidemia , diabetes on insulin, PAULO, PAD, MA status post PCI/ stenting on Plavix, and history of non-Hodgkin's , who presented to the ED for acute onset severe chest pain rating to the left shoulder and jaw. Patient was found to have severe multive ssel coronary artery disease and was transferred to [facility] for surgical revascularization. Tashia raman is now status post CABG and is in CVICU. More recent ly patient has been complaining of dysphagia, GI has been consulted for this prob latha. Patient reports she has been having difficulty swallowing intermittently fo r the past several years, unable to give a duration. She has not seen anyone for this particular prob latha, no history of EGD in the past. She states she has been changing her dieta ry consistencies/textures to accommodate to her difficulty swallowing and hamida ing sure she chews her food thoroughly. She avoids tough , solid food and large pieces of meat. At times, she may feel as if food is getting stuck in the midd le of her chest, when this happens, she may try to perform various maneuvers such as burping to alleviate her symptoms which helps. Ida fam has also tried zantac periodically in the past for dyspepsia. Patient has recently been evaluated b y speech pathology who recommends a GI evaluation. Patient is comfortable consuming liquids without any issues. She has been able to taker her pills by mouth as well. At present, patient complains of bloatin g and constipation. She reports she has not had a BM for the past week and is unsure if she has passe d gas recently. RN reports patient may have passed gas yesterday. S he denies any fever, chills, headache, chest pain, shortness of breath, dysuria, or jenna lgias. Last abdominal x-ray completed on 06/16/2022 reve aled no acute findings other than moderate to large amount of stool in the co zachery. Labs significant for WBC 11.2, hemoglobin 8.8, h ematocrit 25.8, INR 1.5, chloride 110, and glucose 125. History - Adult longitudinal Past medical history: Reports: Coronary artery disease, Diabetes melli tus, Hypertension, Ischemic stroke, Prior MA. Denies: Congestive heart failu re, Kidney disease/stones. Additional medical history: Stroke Hypertension Hyperlipidemia Diabetes Obstructive sleep apnea Coronary artery disease Charcot syndrome Non Hodgkin's lymphoma Past surgical history: Reports: Hysterectomy, PCI. Additional surgical history: Exploratory laparotomy for infected mesh Additional family history: Father with hx of CAD Son of heart attack Alcohol use: Denies EtOH use Drug use: Denies recreational drugs Smoking status for patients 13 years old or olde r: Never Smoker Medications: Home Medications: Medication Dose/Rte/Freq Days Qty Entered Last Max Daily Dose Reviewed LOSARTAN (COZAAR) 25 MG PO DAILY 06/15/2206/15 Strength: 25 MG TAB 0110 112 HYDROCHLOROTHIAZIDE 12.5 MG PO DAILY 06/15/22 0 06/15/22 (HCTZ) 011112 Strength: 12.5 MG CAP PARoxetine HCL (PAXIL) 20 MG PO DAILY 06/15/22 06/15/22 Strength: 20 MG TAB 0110 0113 METOPROLOL SUCC XL 25 MG PO DAILY 06/15/2205/25 (TOPROL XL) 110 112 Strength: 25 MG TAB.SR.24H Melatonin (MELATONIN) 10 MG SL BEDTIME 06/15/22 06/15/22 Strength: 1 MG TAB 110 112 INSULIN NPH/REG INSULIN 130 UNITS SUBQ 06/15/22 06/15/22 HUM DAILY 0730 0112 0113 (NovoLIN 70/30) Strength: 100 UNIT/ML (70-30) VIAL INSULIN NPH/REG INSULIN 140 UNITS SUBQ 06/15/22 06/15/22 HUM DAILY 1700 0113 0113 (NovoLIN 70/30) Strength: 100 UNIT/ML (70-30) VIAL Current Hospital Medications: Ahfs Category Unknown Sig/William Start time Last Medication Dose Route Stop Time Status Admin Melatonin 6 MG BEDTIME 06/15 2099 AC 06/19 (Melatonin) PO 07/15 Autonomic Drugs Sig/William Start time Last Medication Dose Route Stop Time Status Admin Ipratropium [place] 500 MCG Q2H PRN PRN 06/19 1 150 AC (ATROVENT) INH 07/19 1149 Dopamine HCl/Dextrose 250 ML ASDIR 06/17 1400 A C 06/17 (DOPamine 400MG/D5W IV 07/17 1359 1410 250ML) Epinephrine 4 MG ASDIR 06/16 1200 AC (ADRENALIN CHLORIDE) IV 07/16 1159 Dextrose/Water 246 ML (DEXTROSE 5% WATER) Ipratropium [place] 500 MCG RTQ4H 06/16 1200 AC 06/20 (ATROVENT) INH 07/16 1159 0954 Norepinephrine 250 ML TITRATE 06/16 1200 AC Bitartrate IV 07/16 1159 (NOREPINEPHRINE 8 MG/ NS 250 ML) Blood Formation,Coagulation Sig/William Start time Last Medication Dose Route Stop Time Status Admin Ferrous Sulfate 325 MG DAILY 06/19 0900 AC 05/25 7 (FERROUS SULFATE) PO 07/19 0859 0820 Heparin Sodium 5,000 UNIT Q12HR 06/17 2100 AC 0 06/20 (HEPARIN 5000 UNITS/ SUBQ 07/17 2059 0808 ML) Clopidogrel Bisulfate 75 MG DAILY 06/17 0900 AC 06/20 (Plavix) PO 07/17 0859 0810 Cardiovascular Drugs Sig/William Start time Last Medication Dose Route Stop Time Status Admin Amiodarone HCl 400 MG BID 06/20 2100 CKD (CORDARONE) PO 07/20 2058 Amiodarone HCl 100 ML STAT STA 06/20 1102 DC (NEXTERONE 150MG/D5W IV 06/20 1111 1152 100ML) Amiodarone HCl 450 MG ASDIR 06/18 1945 CKD 05/25 7 (AMIODARONE HCL) IV 07/18 1944 2300 Dextrose/Water 250 ML (D5%W NON-DEHP) Metoprolol Tartrate 12.5 MG Q12HR 06/16 2100 AC 06/20 (LOPRESSOR) PO 07/16 205 0811 Amiodarone HCl 200 MG TID 06/16 1500 DC 06/20 (CORDARONE) PO 07/16 1459 0809 Nitroglycerin/ 250 ML ASDIR 06/16 1200 AC Dextrose IV 07/16 1159 (NITROGLYCERIN 50,000MCG/D5W 250ML) Atorvastatin Calcium 40 MG 2100 06/15 2100 AC 0 06/19 (LIPITOR) PO 07/15 205 2040 Central Nervous System Agents Sig/William Start time Last Medication Dose Route Stop Time Status Admin Magnesium Sulfate/ 100 ML ONCE ONE 06/195 D C Dextrose IV 06/19 2013 (MAGNESIUM SULFATE 1GM/D5W 100ML) Gabapentin 200 MG BID 06/16 2100 AC 06/20 (NEURONTIN) PO 06/21 0901 0809 Aspirin 81 MG DAILY 06/16 1750 AC 06/20 (ASPIRIN) PO 07/16 1749 0809 Acetaminophen 650 MG Q4H PRN PRN 06/16 1200 AC 06/18 (TYLENOL) PO 07/16 1159 1521 Acetaminophen 650 MG Q4H PRN PRN 06/16 1200 AC (TYLENOL) RECTAL 07/16 1159 Magnesium Sulfate 100 ML ASDIR PRN 06/16 1200 A C 06/19 (MAGNESIUM SULFATE IV 07/16 1159 1647 4GM/SWFI 100ML) Magnesium Sulfate 50 ML ASDIR PRN 06/16 1200 AC 06/19 (MAGNESIUM SULFATE IV 07/16 1159 0440 2GM/SWFI 50ML) Magnesium Sulfate/ 100 ML ASDIR PRN 06/16 1200 AC 06/20 Dextrose IV 07/16 1159 0408 (MAGNESIUM SULFATE 1GM/D5W 100ML) Oxycodone HCl 5 MG Q4H PRN PRN 06/16 1200 AC (ROXICODONE) PO 06/21 1159 2303 Oxycodone HCl 10 MG Q4H PRN PRN 06/16 1200 AC 0 06/17 (ROXICODONE) PO 06/21 1159 1811 Acetaminophen 650 MG Q4H PRN PRN 06/15 0600 AC 06/19 (TYLENOL) PO 07/15 0559 2039 Electrolytic, Caloric, And Faiza Sig/William Start time Last Medication Dose Route Stop Time Status Admin Furosemide 20 MG ONCE ONE 06/20 0715 DC 06/20 (LASIX 20MG INJ) IV 06/20 0716 0808 Furosemide 20 MG ONCE ONE 06/19 2245 DC (LASIX 20MG INJ) IV 06/19 224 Potassium Chloride 40 MEQ ONCE ONE 06/19 1914 D C (POTASSIUM CHLORIDE PO 06/19 191 20MEQ TAB.ER) Potassium Phosphate 20 MM ONCE ONE 06/19 1914 D C 06/19 (POTASSIUM PHOSPHATE) IV 06/19 2314 1928 Sodium Chloride 250 ML (SODIUM CHLORIDE 0.9%) Potassium Chloride 40 MEQ ONCE ONE 06/19 1645 D C 06/19 (K-SHWETHA 20 MEQ PACKET) FEED-TUBE 06/19 1646 172 6 Dextrose/Water 250 ML ASDIR PRN 06/17 1745 CKD (DEXTROSE 10% IN IV 07/17 1744 WATER) Calcium Chloride 1 GM ASDIR PRN 06/16 1200 AC (CALCIUM CHLORIDE) IV 07/16 1159 Dextrose/Water 125 ML ASDIR PRN 06/16 1200 CKD (DEXTROSE 10% IN IV 07/16 1159 WATER) Dextrose/Water 250 ML ASDIR PRN 06/16 1200 CKD (DEXTROSE 10% IN IV 07/16 1159 WATER) Potassium Chloride 100 ML ASDIR PRN 06/16 1200 AC 06/16 (KCL 20MEQ/SWFI IV 07/16 1159 1501 100ML) Sodium Bicarbonate 50 MEQ ASDIR PRN 06/16 1200 AC 06/16 (SODIUM BICARBONATE) IV 07/16 1159 1215 Sodium Chloride 1,000 ML .Q20H 06/16 1200 AC 0 06/17 (SODIUM CHLORIDE IV 07/16 1159 0758 0.9%) Sodium Chloride 250 ML Q24H 06/16 1200 AC 06/18 (SODIUM CHLORIDE IV 07/16 1159 1201 0.9%) Sodium Chloride 20 ML ASDIR 06/15 1545 AC (SODIUM CHLORIDE) IV 07/15 1544 Gastrointestinal Drugs Sig/William Start time Last Medication Dose Route Stop Time Status Admin Bisacodyl 10 MG ONCE PRN 06/18 1200 AC (DULCOLAX) RECTAL 07/18 1159 Magnesium Hydroxide 30 ML ONCE PRN 06/18 1200 A C (MILK OF MAGNESIA) PO Polyethylene Glycol 17 GM DAILY 06/17 0900 AC 0 06/20 (MIRALAX) PO 07/17 0859 0811 Pantoprazole 40 MG DAILY@0600 06/17 0600 AC (PROTONIX) PO 07/17 0559 0602 Docusate Sodium 100 MG BID 06/16 2100 AC 06/20 (COLACE) PO 07/16 Sennosides 17.2 MG BEDTIME 06/16 2100 AC 06/19 (Senna Lax 8.6 MG PO 07/16 TABLET) Ondansetron HCl 4 MG Q6H PRN PRN 06/16 1200 AC (ZOFRAN) IV 07/16 1159 Hormones And Synthetic Substit Sig/William Start time Last Medication Dose Route Stop Time Status Admin Insulin Glargine 12 UNIT BEDTIME 06/18 2100 AC 06/19 (Lantus/Semglee) SUBQ 07/18 Insulin Human Regular 100 UNIT ASDIR 06/17 1745 CKD (HumuLIN R) IV 07/17 1744 Sodium Chloride 99 ML (SODIUM CHLORIDE 0.9%) Glucagon 1 MG ASDIR PRN 06/16 1200 AC (GLUCAGON) IM 07/16 1159 Respiratory Tract Agents Sig/William Start time Last Medication Dose Route Stop Time Status Admin Acetylcysteine 200 MG RTQ8H 06/18 1600 DC 06/19 (MUCOMYST FOR RT) NEB 07/18 1559 2346 Skin And Mucous Membrane Agent Sig/William Start time Last Medication Dose Route Stop Time Status Admin Mupirocin 1 APPLIC BID 06/16 2100 AC 06/20 (BACTROBAN 2% 22 GM NASAL 06/21 0901 0809 OINTMENT) Vitamins Sig/William Start time Last Medication Dose Route Stop Time Status Admin Cyanocobalamin 500 MCG DAILY 06/19 0900 AC (Vitamin B-12 500 PO 07/19 0859 mcg tab) Allergies: Coded Allergies: adhesive tape (RASH 06/15/22) niacin (Mild, ANXIETY 06/15/22) zolpidem (From AMBIEN) (CONFUSION 06/15/22) 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 Respiratory: Denies: SOB. Cardiovascular: Denies: chest pain. GI: Reports: anorexia, constipation, dysphagia, GERD . Denies: abdominal pain, diarrhea, hematemesis, hemat ochezia, hiatal hernia, melena, nausea, rectal pain, vomiting. Neuro: Denies: headache. All systems rev neg: except as marked Objective Physical Exam VS/I O: Last Documented: Result Date Time Pulse Ox 100 06/20 0948 FiO2 21 06/20 0948 O2 Delivery Room air 06/20 0948 B/P 133/61 06/20 09 B/P Mean 88 06/20 09 Temp 36.9 06/20 899 Pulse 84 06/20 0900 Resp 14 06/20 09 O2 Flow Rate 2 06/19 1943 24 hour I O ending at 0700: 06/20 0700 06/19 1900 Intake Total 1255.00 722.00 Output Total 925 1650 Balance 330.00 -928.00 Intake, IV 755.00 722.00 Intake, Oral 500 Output, Urine 925 1650 Patient 101.1 kg Weight Weight Standing scale Measurement Method PATIENT WEIGHT: Weight (lb): 222 Weight (oz): 14.2 Weight (kg): 101.100 Medications: Active Meds + DC'd Last 24 Hrs Amiodarone HCl (CORDARONE) 400 MG BID PO (CKD) Amiodarone HCl (NEXTERONE 150MG/D5W 100ML) 100 M L STAT STA IV (DC) Furosemide (LASIX 20MG INJ) 20 MG ONCE ONE IV (D C) Furosemide (LASIX 20MG INJ) 20 MG ONCE ONE IV (D C) Magnesium Sulfate/Dextrose (MAGNESIUM SULFATE 1G M/D5W 100ML) 100 ML ONCE ONE IV (DC) Potassium Chloride (POTASSIUM CHLORIDE 20MEQ TAB .ER) 40 MEQ ONCE ONE PO (DC) Potassium Phosphate (POTASSIUM PHOSPHATE) 20 MM ONCE ONE IV (DC) Sodium Chloride (SODIUM CHLORIDE 0.9%) 250 ML Potassium Chloride (K-SHWETHA 20 MEQ PACKET) 40 MEQ ONCE ONE FEED-TUBE (DC) Ipratropium [place] (ATROVENT) 500 MCG Q2H PRN P RN INH Cyanocobalamin (Vitamin B-12 500 mcg tab) 500 MC G DAILY PO Ferrous Sulfate (FERROUS SULFATE) 325 MG DAILY P O Insulin Glargine (Lantus/Semglee) 12 UNIT BEDTIM E SUBQ Amiodarone HCl (AMIODARONE HCL) 450 MG ASDIR IV (CKD) Dextrose/Water (D5%W NON-DEHP) 250 ML Acetylcysteine (MUCOMYST FOR RT) 200 MG RTQ8H NE B (DC) Bisacodyl (DULCOLAX) 10 MG ONCE PRN RECTAL Magnesium Hydroxide (MILK OF MAGNESIA) 30 ML ONC E PRN PO Heparin Sodium (HEPARIN 5000 UNITS/ML) 5,000 UNI T Q12HR SUBQ Dextrose/Water (DEXTROSE 10% IN WATER) 250 ML DIR PRN IV (CKD) Insulin Human Regular (HumuLIN R) 100 UNIT ASDIR IV (CKD) Sodium Chloride (SODIUM CHLORIDE 0.9%) 99 ML Dopamine HCl/Dextrose (DOPamine 400MG/D5W 250ML) 250 ML ASDIR IV Clopidogrel Bisulfate (Plavix) 75 MG DAILY PO Polyethylene Glycol (MIRALAX) 17 GM DAILY PO Pantoprazole (PROTONIX) 40 MG DAILY@0600 PO Docusate Sodium (COLACE) 100 MG BID PO Gabapentin (NEURONTIN) 200 MG BID PO Metoprolol Tartrate (LOPRESSOR) 12.5 MG Q12HR PO Mupirocin (BACTROBAN 2% 22 GM OINTMENT) 1 APPLIC BID NASAL Sennosides (Senna Lax 8.6 MG TABLET) 17.2 MG BED TIME PO Aspirin (ASPIRIN) 81 MG DAILY PO Amiodarone HCl (CORDARONE) 200 MG TID PO (DC) Acetaminophen (TYLENOL) 650 MG Q4H PRN PRN PO Acetaminophen (TYLENOL) 650 MG Q4H PRN PRN RECTA L Calcium Chloride (CALCIUM CHLORIDE) 1 GM ASDIR P RN IV Dextrose/Water (DEXTROSE 10% IN WATER) 125 ML DIR PRN IV (CKD) Dextrose/Water (DEXTROSE 10% IN WATER) 250 ML DIR PRN IV (CKD) Epinephrine (ADRENALIN CHLORIDE) 4 MG ASDIR IV Dextrose/Water (DEXTROSE 5% WATER) 246 ML Glucagon (GLUCAGON) 1 MG ASDIR PRN IM Ipratropium [place] (ATROVENT) 500 MCG RTQ4H INH Magnesium Sulfate (MAGNESIUM SULFATE 4GM/SWFI 10 0ML) 100 ML ASDIR PRN IV Magnesium Sulfate (MAGNESIUM SULFATE 2GM/SWFI 50 ML) 50 ML ASDIR PRN IV Magnesium Sulfate/Dextrose (MAGNESIUM SULFATE 1G M/D5W 100ML) 100 ML ASDIR PRN IV Nitroglycerin/Dextrose (NITROGLYCERIN 50,000MCG/ D5W 250ML) 250 ML ASDIR IV Norepinephrine Bitartrate (NOREPINEPHRINE 8 MG/N S 250 ML) 250 ML TITRATE IV Ondansetron HCl (ZOFRAN) 4 MG Q6H PRN PRN IV Oxycodone HCl (ROXICODONE) 5 MG Q4H PRN PRN PO Oxycodone HCl (ROXICODONE) 10 MG Q4H PRN PRN PO Potassium Chloride (KCL 20MEQ/SWFI 100ML) 100 ML ASDIR PRN IV Sodium Bicarbonate (SODIUM BICARBONATE) 50 MEQ A SDIR PRN IV Sodium Chloride (SODIUM CHLORIDE 0.9%) 1,000 ML .Q20H IV Sodium Chloride (SODIUM CHLORIDE 0.9%) 250 ML Q2 4H IV Atorvastatin Calcium (LIPITOR) 40 MG 2100 PO Melatonin (Melatonin) 6 MG BEDTIME PO Sodium Chloride (SODIUM CHLORIDE) 20 ML ASDIR IV Acetaminophen (TYLENOL) 650 MG Q4H PRN PRN PO General appearance: alert, awake, oriented HEENT: atraumatic, EOMI, PERRL Neck: no JVD Cardiovascular: irregular rhythm, normal capilla ry refill, normal S1/S2 Respiratory: equal breath sounds, symmetric expa nsion, no distress Abdomen: abnormal bowel sounds, distended (mildl y), non-tender, soft, no guarding, no hernia Extremities: moves all, no edema Musculoskeletal: normal inspection 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, oriented X 3, normal speech Skin: dry, intact, normal color Psychiatry: anxious, normal judgment/insight Results Findings/Data: Laboratory Tests 06/20/22 0250: [Embedded Image Not Available] 06/19/22 1445: [Embedded Image Not Available] Laboratory Tests 06/20 06/20 06/19 06/19 0254 0250 2159 1819 Chemistry Sodium (134 - 147 mEq/L) 142 Potassium (3.4 - 5.0 mEq/L) 4.1 Chloride (100 - 108 mEq/L) 110 H Carbon Dioxide (21 - 33 mEq/l) 28 Anion Gap (0 - 20) 9 BUN (7 - 18 mg/dL) 17 Creatinine (0.6 - 1.3 mg/dL) 0.7 Glomerular Filtr Rate (80 - 90) 95.9 H Glucose (70 - 110 mg/dL) 125 H POC Glucose (70 - 110 MG/DL) 126 H 133 H 147 H Calcium (8.0 - 10.5 mg/dL) 8.8 Ionized Calcium Jonas (1.09 - 1.30 MMOL/L) 1.17 Phosphorus (2.5 - 4.9 MG/DL) 3.7 Magnesium (1.80 - 2.40 mg/dL) 2.40 Total Bilirubin (0.0 - 1.0 mg/dL) 1.00 Direct Bilirubin (0.0 - 0.30 MG/DL) 0.50 H Indirect Bilirubin (MG/DL) 0.50 AST (15 - 37 IUnit/L) 27 ALT (30 - 65 IUnit/L) 13 L Total Alk Phosphatase (20 - 125 IUnit/L) 68 Total Protein (6.4 - 8.2 g/dL) 5.4 L Albumin (3.4 - 5.0 g/dL) 2.70 L 06/19 1445 Chemistry Sodium (134 - 147 mEq/L) 141 Potassium (3.4 - 5.0 mEq/L) 3.6 Chloride (100 - 108 mEq/L) 110 H Carbon Dioxide (21 - 33 mEq/l) 29 Anion Gap (0 - 20) 5 BUN (7 - 18 mg/dL) 18 Creatinine (0.6 - 1.3 mg/dL) 0.7 Glomerular Filtr Rate (80 - 90) 95.9 H Glucose (70 - 110 mg/dL) 156 H Calcium (8.0 - 10.5 mg/dL) 9.0 Ionized Calcium Jonas (1.09 - 1.30 MMOL/L) 1.21 Phosphorus (2.5 - 4.9 MG/DL) 1.9 L Magnesium (1.80 - 2.40 mg/dL) 1.86 Laboratory Tests 06/20 0250 Hematology WBC (4.5 - 11.0 x10 3/uL) 11.2 H RBC (3.54 - 5.02 x10 6/uL) 2.88 L Hgb (11.0 - 15.0 g/dL) 8.8 L Hct (33.0 - 45.0 %) 25.8 L MCV (81.0 - 99.0 fL) 89.6 MCH (27.0 - 33.0 pg) 30.6 MCHC (33.0 - 37.0 g/dL) 34.1 RDW (11.5 - 14.5 %) 13.8 Plt Count (150 - 400 x10 3/uL) 197 MPV (7.0 - 9.0 fL) 10.0 H Neut % (Auto) (56.0 - 77.0 %) 63.8 Lymph % (Auto) (14.0 - 32.0 %) 27.0 [place] % (Auto) (4.8 - 9.0 %) 6.3 Eos % (Auto) (0.3 - 3.7 %) 1.9 Baso % (Auto) (0.0 - 2.0 %) 0.3 Neut # (Auto) (2.0 - 7.6 x10 3/uL) 7.16 Lymph # (Auto) (1.0 - 3.8 x10 3/uL) 3.02 [place] # (Auto) (0.1 - 0.8 x10 3/uL) 0.70 Eos # (Auto) (0.0 - 0.2 x10 3/uL) 0.21 H Baso # (Auto) (0.0 - 0.2 x10 3/uL) 0.03 Abs Immat Gran (auto) (0.00 - 0.03 x10 3/uL) 0. 08 H Add Manual Diff NO Immature Gran % (0.0 - 2.0 %) 0.7 Nucleated RBC % (0 - 0 %) 0.4 H Nucleated RBCs # (Man) (0.0 - 0.1 x10 3/uL) 0.0 4 Radiology data: Recent Impressions: RADIOLOGY - XR CHEST 1 V 06/20 0534 Report Impression - Status: SIGNED Entered: 06/20/2022 0834 IMPRESSION: 1. New small right pleural effusion. 2. Small residual left apical pneumothorax, stab le to diminished. 3. Stable pulmonary opacities and left basilar p leuroparenchymal disease. Impression By: Adam Sprague M.D. Results: labs reviewed, vital signs reviewed, x- ray personally reviewed Treatment Prophylaxis Treatment Prophylaxis Drain(s)/tube(s): Drain(s)/tube(s): chest Diagnosis, Assessment Plan Problem List/A P: 1. Dysphagia 2. Globus sensation 3. Dyspepsia 4. Constipation 5. Coronary artery disease 6. Afib 7. Anemia 8. S/P CABG x 4 Free Text DxA P Notes Free Text DxA P Notes: 67-year-old female complaini ng of dysphagia. Speech has seen, appreciate input. Discussed EGD for further e valuation, patient would like to think about it for now. Recommendations: 1. Continue with current diet 2. Constipation, continue with current bowel reg imen, if no BM later today, okay to give dulc supp, discussed with RN 3. Aspiration precuations 4. Continue with PPI therapy, will increase to B ID 5. Serial abdominal exams and will consider abdo meek x rays prn 6. Trend h/h and transfuse prn 7. 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 Further recommendations may follow Attestations Attestation needed: supervising physician Catrachito Shirley 06/20/22 1821: Attestations Physician Attestation Agree w/findings plan: Agree with the findings and plan as documented chetan y TASHIA Worthington. at 1349 Electronically Signed by Catrachito Shirley MD on at 1822 RPT #:[id number] END OF REPORT 2022-06-20 07:54:00-00:00 [facility] Critical Care Progress Note REPORT#:[id number] REPORT STATUS: Signed DATE:06/20/22 TIME: 0754 PATIENT: KALA TURPIN UNIT #: [id number] ROOM/BED: [place] [address] : 57 AGE: 67 SEX: F ATTEND: Jerri Murrell MD ADM AUTHOR: Armand Goff MD * ALL edits or amendments must be made on the [employer]/computer document * Subjective Chief complaint: s/p CABG x4 (LIN-LAD, SVG-Elisabet, SVG-OM, SVG-PDA) ALAA EVH (RGSV) Posterior pericardiotomy on 06/16/2022 Comments: Out of bed in the chair Diuresed with Lasix , UOP 925 On insulin and amiodarone drip Remains in A-fib Objective General VS/I O Last Documented: Result Date Time B/P 138/62 06/20 0600 B/P Mean 89 06/20 0600 Pulse Ox 95 06/20 0600 Temp 99.0 06/20 0600 Pulse 81 06/20 0600 Resp 12 06/20 0600 O2 Delivery Room air 06/20 0348 O2 Flow Rate 2 06/19 1943 FiO2 40 06/16 1748 24 hour I O ending at 0700: 06/20 0700 06/19 1900 Intake Total 1255.00 722.00 Output Total 925 1650 Balance 330.00 -928.00 Intake, IV 755.00 722.00 Intake, Oral 500 Output, Urine 925 1650 Patient 101.1 kg Weight Weight Standing scale Measurement Method PATIENT WEIGHT: Weight (lb): 222 Weight (oz): 14.2 Weight (kg): 101.100 Medications: Active Meds + DC'd Last 24 Hrs Furosemide (LASIX 20MG INJ) 20 MG ONCE ONE IV (D C) Furosemide (LASIX 20MG INJ) 20 MG ONCE ONE IV (D C) Magnesium Sulfate/Dextrose (MAGNESIUM SULFATE 1G M/D5W 100ML) 100 ML ONCE ONE IV (DC) Potassium Chloride (POTASSIUM CHLORIDE 20MEQ TAB .ER) 40 MEQ ONCE ONE PO (DC) Potassium Phosphate (POTASSIUM PHOSPHATE) 20 MM ONCE ONE IV (DC) Sodium Chloride (SODIUM CHLORIDE 0.9%) 250 ML Potassium Chloride (K-SHWETHA 20 MEQ PACKET) 40 MEQ ONCE ONE FEED-TUBE (DC) Ipratropium [place] (ATROVENT) 500 MCG Q2H PRN P RN INH Furosemide (LASIX 20MG INJ) 20 MG ONCE ONE IV (D C) Magnesium Sulfate/Dextrose (MAGNESIUM SULFATE 1G M/D5W 100ML) 100 ML ONCE ONE IV (DC) Cyanocobalamin (Vitamin B-12 500 mcg tab) 500 MC G DAILY PO Ferrous Sulfate (FERROUS SULFATE) 325 MG DAILY P O Insulin Glargine (Lantus/Semglee) 12 UNIT BEDTIM E SUBQ Amiodarone HCl (AMIODARONE HCL) 450 MG ASDIR IV (CKD) Dextrose/Water (D5%W NON-DEHP) 250 ML Acetylcysteine (MUCOMYST FOR RT) 200 MG RTQ8H NE B Bisacodyl (DULCOLAX) 10 MG ONCE PRN RECTAL Magnesium Hydroxide (MILK OF MAGNESIA) 30 ML ONC E PRN PO Heparin Sodium (HEPARIN 5000 UNITS/ML) 5,000 UNI T Q12HR SUBQ Dextrose/Water (DEXTROSE 10% IN WATER) 250 ML DIR PRN IV (CKD) Insulin Human Regular (HumuLIN R) 100 UNIT ASDIR IV (CKD) Sodium Chloride (SODIUM CHLORIDE 0.9%) 99 ML Dopamine HCl/Dextrose (DOPamine 400MG/D5W 250ML) 250 ML ASDIR IV Clopidogrel Bisulfate (Plavix) 75 MG DAILY PO Polyethylene Glycol (MIRALAX) 17 GM DAILY PO Pantoprazole (PROTONIX) 40 MG DAILY@0600 PO Docusate Sodium (COLACE) 100 MG BID PO Gabapentin (NEURONTIN) 200 MG BID PO Metoprolol Tartrate (LOPRESSOR) 12.5 MG Q12HR PO Mupirocin (BACTROBAN 2% 22 GM OINTMENT) 1 APPLIC BID NASAL Sennosides (Senna Lax 8.6 MG TABLET) 17.2 MG BED TIME PO Aspirin (ASPIRIN) 81 MG DAILY PO Amiodarone HCl (CORDARONE) 200 MG TID PO Acetaminophen (TYLENOL) 650 MG Q4H PRN PRN PO Acetaminophen (TYLENOL) 650 MG Q4H PRN PRN RECTA L Calcium Chloride (CALCIUM CHLORIDE) 1 GM ASDIR P RN IV Dextrose/Water (DEXTROSE 10% IN WATER) 125 ML DIR PRN IV (CKD) Dextrose/Water (DEXTROSE 10% IN WATER) 250 ML DIR PRN IV (CKD) Epinephrine (ADRENALIN CHLORIDE) 4 MG ASDIR IV Dextrose/Water (DEXTROSE 5% WATER) 246 ML Glucagon (GLUCAGON) 1 MG ASDIR PRN IM Ipratropium [place] (ATROVENT) 500 MCG RTQ4H INH Magnesium Sulfate (MAGNESIUM SULFATE 4GM/SWFI 10 0ML) 100 ML ASDIR PRN IV Magnesium Sulfate (MAGNESIUM SULFATE 2GM/SWFI 50 ML) 50 ML ASDIR PRN IV Magnesium Sulfate/Dextrose (MAGNESIUM SULFATE 1G M/D5W 100ML) 100 ML ASDIR PRN IV Nitroglycerin/Dextrose (NITROGLYCERIN 50,000MCG/ D5W 250ML) 250 ML ASDIR IV Norepinephrine Bitartrate (NOREPINEPHRINE 8 MG/N S 250 ML) 250 ML TITRATE IV Ondansetron HCl (ZOFRAN) 4 MG Q6H PRN PRN IV Oxycodone HCl (ROXICODONE) 5 MG Q4H PRN PRN PO Oxycodone HCl (ROXICODONE) 10 MG Q4H PRN PRN PO Potassium Chloride (KCL 20MEQ/SWFI 100ML) 100 ML ASDIR PRN IV Sodium Bicarbonate (SODIUM BICARBONATE) 50 MEQ A SDIR PRN IV Sodium Chloride (SODIUM CHLORIDE 0.9%) 1,000 ML .Q20H IV Sodium Chloride (SODIUM CHLORIDE 0.9%) 250 ML Q2 4H IV Atorvastatin Calcium (LIPITOR) 40 MG 2100 PO Melatonin (Melatonin) 6 MG BEDTIME PO Sodium Chloride (SODIUM CHLORIDE) 20 ML ASDIR IV Acetaminophen (TYLENOL) 650 MG Q4H PRN PRN PO Results Findings/data: Laboratory Tests 06/20 0250 2159 1819 1445 Chemistry Sodium (134 - 147 mEq/L) 142 141 Potassium (3.4 - 5.0 mEq/L) 4.1 3.6 Chloride (100 - 108 mEq/L) 110 H 110 H Carbon Dioxide (21 - 33 mEq/l) 28 29 Anion Gap (0 - 20) 9 5 BUN (7 - 18 mg/dL) 17 18 Creatinine (0.6 - 1.3 mg/dL) 0.7 0.7 Glomerular Filtr Rate (80 - 90) 95.9 H 95.9 H Glucose (70 - 110 mg/dL) 125 H 156 H POC Glucose (70 - 110 MG/DL) 126 H 133 H 147 H Calcium (8.0 - 10.5 mg/dL) 8.8 9.0 Ionized Calcium Jonas (1.09 - 1.30 MMOL/L) 1.17 1.21 Phosphorus (2.5 - 4.9 MG/DL) 3.7 1.9 L Magnesium (1.80 - 2.40 mg/dL) 2.40 1.86 Total Bilirubin (0.0 - 1.0 mg/dL) 1.00 Direct Bilirubin (0.0 - 0.30 MG/DL) 0.50 H Indirect Bilirubin (MG/DL) 0.50 AST (15 - 37 IUnit/L) 27 ALT (30 - 65 IUnit/L) 13 L Total Alk Phosphatase (20 - 125 IUnit/L) 68 Total Protein (6.4 - 8.2 g/dL) 5.4 L Albumin (3.4 - 5.0 g/dL) 2.70 L Laboratory Tests 06/20 249 Hematology WBC (4.5 - 11.0 x10 3/uL) 11.2 H RBC (3.54 - 5.02 x10 6/uL) 2.88 L Hgb (11.0 - 15.0 g/dL) 8.8 L Hct (33.0 - 45.0 %) 25.8 L MCV (81.0 - 99.0 fL) 89.6 MCH (27.0 - 33.0 pg) 30.6 MCHC (33.0 - 37.0 g/dL) 34.1 RDW (11.5 - 14.5 %) 13.8 Plt Count (150 - 400 x10 3/uL) 197 MPV (7.0 - 9.0 fL) 10.0 H Neut % (Auto) (56.0 - 77.0 %) 63.8 Lymph % (Auto) (14.0 - 32.0 %) 27.0 [place] % (Auto) (4.8 - 9.0 %) 6.3 Eos % (Auto) (0.3 - 3.7 %) 1.9 Baso % (Auto) (0.0 - 2.0 %) 0.3 Neut # (Auto) (2.0 - 7.6 x10 3/uL) 7.16 Lymph # (Auto) (1.0 - 3.8 x10 3/uL) 3.02 [place] # (Auto) (0.1 - 0.8 x10 3/uL) 0.70 Eos # (Auto) (0.0 - 0.2 x10 3/uL) 0.21 H Baso # (Auto) (0.0 - 0.2 x10 3/uL) 0.03 Abs Immat Gran (auto) (0.00 - 0.03 x10 3/uL) 0. 08 H Add Manual Diff NO Immature Gran % (0.0 - 2.0 %) 0.7 Nucleated RBC % (0 - 0 %) 0.4 H Nucleated RBCs # (Man) (0.0 - 0.1 x10 3/uL) 0.0 4 Laboratory Tests 06/20/22 0250: [Embedded Image Not Available] 06/19/22 1445: [Embedded Image Not Available] Radiology data Recent Impressions: RADIOLOGY - XR CHEST 1 V 06/20 0521 Report Impression - Status: SIGNED Entered: 06/20/2022 4345 IMPRESSION: 1. New small right pleural effusion. 2. Small residual left apical pneumothorax, stab le to diminished. 3. Stable pulmonary opacities and left basilar p leuroparenchymal disease. Impression By: Adam Sprague M.D. Free Text Obj Notes Free Text Obj Notes: GEN: Elderly female in no acute distress, intera ctive and conversational HEENT: Atraumatic, normocephalic, moist mucous m embranes NECK: Supple, good range of motion, no tendernes s LUNGS: Symmetrical air entry, no acute respirato ry distress CV: S1, S2 irregularly irregular GI: Abdomen is soft, not tender, mildly distende d EXT/Musc: LE edema, no cyanosis. Pedal pulses pr esent Skin: Surgical site clean, dry and intact. Warm to touch NEURO: Awake, alert and oriented x3. No facial d jovani or focal deficit Diagnosis, Assessment Plan Free text A P: 67 yo F admitted to CVICU s/p CABG x4(LIN-LAD, SVG-Elisabet, SVG-OM, SVG-PDA) ALAA EVH (RGSV) Posterior pericardiotomy Acute pulm insufficiency following thoracic surg kimberli Diabetes mellitus with hemoglobin A1c 8.3 Acute blood loss anemia from surgery Neuro: keep off sedation, multimodal pain contro l, neurologically at baseline Respiratory: On 2 L nasal cannula wean down as t olerated. Patient has underlying PAULO. We will start her on CPAP. She d oes not know her settings. Start on CPAP at 8, as tolerated, Continue iprat ropium nebs. ABG and chest x- ray reviewed. Cardiovascular: Patient still continues to be hy pertensive. Continue dopamine at 3 mics for now Renal: Patient's creatinine has stabiliz ed at 0.9. Urine output has started to improve. Continue to monitor. Electrolytes are s table. ID: White count slightly high. No fevers. Contin ue to monitor for now GI: Continue bowel regimen. Abdomen is soft. Acrolyne erating diet. LFTs stable. Hem: Hemoglobin is stable. Continue to monitor Endo: BG control with insulin gtt per protocol, endocrine consult Misc: PTOT consult, DVT and GI ppx with DAPT and PPI DisPosition is home her will stay with h er 06/19 Appears neuro intact, multimodal pain control Sats well on NC, wean O2, aggressive I-S, CXR re viewed Remains HD stable, A-fib better controlled, on a miodarone drip, hold off on dopamine drip Cr stable, start diuresis, monitor UOP, replete hypomagnesemia, repeat labs Oral diet as tolerated, possible upper GI pathol ogy per speech, consider GI consult No fevers or leukocytosis, no ID issues at this time Hgb appears stable, no evidence of active bleed, CTs removed Blood glucose control with i nsulin drip, transition to SQ insulin per endocrine Encourage PT/OT and out of bed as tolerated, IPR consult DVT and GI prophylaxis with DAPT and PPI 06/20 Remains neuro intact, continue multimodal pain c ontrol Sats well on NC, weaning O2, aggressive I-S, CXR reviewed HD stable, remains in controlled A-fib, rebolus with amiodarone and increase oral dose Cr remains stable, continue diuresis, monitor UO P, obtain labs as needed Oral diet as tolerated, jr l regimen, seen by GI for dysphagia, may need an EGD No fevers or leukocytosis, no ID issues at this time Hgb appears stable, no evidence of active bleedi ng Blood glucose control with insulin drip and Lant us per endocrine Encourage PT/OT and out of bed as tolerated, IPR consulted DVT and GI prophylaxis with DAPT and PPI bid (pe r GI) Plan discussed with: patient, family, co nsultants, nurse, interdisc care team, pharmacy/pharmacist Critical care time: Minutes: 37 Electronically Signed by Armand Goff MD on 05/25 12/16 at 1517 RPT #:[id number] END OF REPORT 2022-06-19 23:54:00-00:00 [facility] Hospitalist Progress Note REPORT#:[id number] REPORT STATUS: Signed DATE:06/19/22 TIME: 2353 PATIENT: KALA TURPIN UNIT #: [id number] ROOM/BED: 2205-1 : 57 AGE: 67 SEX: F ATTEND: Rosa Murrell MD ADM AUTHOR: Reva Murrell MD * ALL edits or amendments must be made on the el [employer]/computer document * Subjective Chief complaint: patient can swallow but the food gets stuck in t he middle of the esophagus HPI: This is 67-year-old female with past medical his tory of stroke, hypertension, hyperlipidemia, diabetes (on insulin), obstructi ve sleep apnea, PAD, 2 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 Presented to the emergency room, was evaluated by cardiology and underwent left h eart cath. Coronary angiogram revealed severe multivessel coronary artery dise ase involving LAD which is totally occluded after the m idportion; diagonal OM branch with proximal stenosis 60 to 70%, left 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 Patient transferred to [facility] for surgical revascularization. Objective General VS/I O: Vital Signs: Date Time Temp Pulse Resp B/P B/P Pulse O2 O2 Flow FiO2 Mean Ox Delivery Rate 06/19 194 99 Nasal 2 cannula 06/19 193 High flow 1 nasal cannula 06/19 1730 141/65 93 06/19 1730 98.8 96 18 146/77 101 100 06/19 1700 97/59 74 03 1700 98.8 85 17 106/53 68 100 06/19 1645 117/58 81 06/19 1645 98.8 90 13 126/63 82 100 06/19 1630 118/58 83 06/19 1630 98.8 77 12 131/63 84 100 06/19 1615 141/71 96 06/19 1615 98.8 93 13 148/74 99 99 / 1606 136/75 99 / 1606 98.8 92 23 139/68 93 99 / 1545 98.8 90 14 105/50 66 99 03/ 1530 98.8 87 14 106/51 67 100 / 1515 98.8 90 13 118/56 75 99 03/27 1500 98.8 96 14 116/55 72 99 03/27 1430 99.0 96 13 116/56 74 99 03/27 1400 99.0 88 14 108/53 68 99 03/27 1351 99.0 89 16 94/53 67 98 03/27 1345 99.0 91 13 97/49 64 98 03/ 1330 99.1 102 12 120/59 78 100 / 1300 99.1 96 17 100/63 76 99 03/ 1230 99.1 88 12 110/57 73 99 03/ 1200 99.1 93 18 136/69 91 99 03/27 1145 99.1 95 19 135/69 91 99 03/27 1119 113/56 76 03/27 1119 95 18 118/62 80 100 03/27 1100 99.0 99 12 119/60 78 99 03/27 1030 98.8 98 11 122/60 78 99 03/27 1018 98.8 109 21 129/66 87 99 03/27 1000 98.8 107 14 122/60 78 99 03/27 0930 98.6 110 26 136/65 87 97 03/27 0900 98.4 103 14 121/61 80 99 03/27 0845 98.4 116 19 147/67 92 98 03/27 0830 98.4 125 27 127/61 85 99 03/27 0815 98.2 116 19 134/62 83 99 03/27 0800 98.2 94 12 104/50 65 100 03/27 0750 98 Nasal 2 cannula 03/27 0745 98.2 103 14 100/50 64 100 03/27 0730 Nasal 2 cannula 03/27 0730 98.4 99 12 107/50 66 100 03/27 0717 98.4 110 13 121/58 76 99 03/27 0715 98.4 106 11 124/57 76 99 03/27 0700 98.6 105 13 124/56 76 99 03/27 0645 98.6 103 12 120/54 73 98 03/27 0630 98.8 108 13 118/55 73 99 03/27 0615 98.8 120 14 130/58 79 99 03/27 0600 99.0 115 15 127/62 82 99 03/27 0545 98.8 111 21 140/64 88 98 03/27 0530 111 19 140/64 87 100 03/27 0515 114 19 126/52 74 97 03/27 0500 169/78 112 03/27 0500 98.6 114 15 144/64 87 98 03/27 0445 134/63 91 03/27 0445 98.6 111 17 127/61 80 98 03/27 0430 125/60 87 03/27 0430 98.6 114 15 108/49 66 98 03/27 0415 123/58 83 03/27 0415 98.6 109 13 112/50 68 97 03/27 0400 97.7 03/27 0400 131/56 86 03/27 0400 98.6 124 11 137/61 84 98 03/27 0345 143/64 92 /27 0345 98.6 107 12 135/60 82 98 /27 0330 132/65 93 03/27 0330 98.6 113 15 127/63 83 100 03/ 0328 98 Nasal 2 cannula / 0315 132/62 89 03/27 0315 98.6 103 18 114/50 69 99 03/27 0300 123/58 84 03/27 0300 98.6 113 13 118/50 70 99 03/27 0245 130/58 83 03/27 0245 98.6 105 13 123/52 72 98 03/27 0230 133/64 92 03/27 0230 98.6 116 12 128/54 75 98 / 0215 142/65 94 / 0215 98.6 119 18 143/63 87 99 /27 0200 132/64 92 03/27 0200 98.4 122 16 146/64 88 99 03/ 0145 117/59 81 03/ 0145 98.4 113 11 122/52 72 99 /27 0130 119/59 85 / 0130 98.4 119 15 116/51 70 99 / 0115 135/56 81 03/ 0115 98.4 116 14 112/49 67 99 / 0100 130/60 87 / 0100 98.4 119 13 119/52 72 99 / 0045 137/63 91 / 0045 98.4 120 12 122/53 73 99 / 0030 126/59 85 03/ 0030 98.4 118 12 115/51 70 99 06/19 0015 138/63 91 06/19 0015 98.4 123 13 136/60 84 99 06/19 0000 97.3 06/19 0000 127/56 81 06/19 0000 98.4 122 22 102/50 70 98 24 hour I O ending at 0700: 06/19 0700 06/18 1900 Intake Total 1014.00 1099.00 Output Total 955 725 Balance 59.00 374.00 Intake, IV 574.00 379.00 Intake, Oral 440 720 Output, Chest 150 Tube Drainage Output, Urine 955 575 Patient 223 lb Weight Weight Bed scale Measurement Method PATIENT WEIGHT: Weight (lb): 222 Weight (oz): 14.2 Weight (kg): 101.100 Medications: Active Meds + DC'd Last 24 Hrs Furosemide (LASIX 20MG INJ) 20 MG ONCE ONE IV (D C) Magnesium Sulfate/Dextrose (MAGNESIUM SULFATE 1G M/D5W 100ML) 100 ML ONCE ONE IV (DC) Potassium Chloride (POTASSIUM CHLORIDE 20MEQ TAB .ER) 40 MEQ ONCE ONE PO (DC) Potassium Phosphate (POTASSIUM PHOSPHATE) 20 MM ONCE ONE IV (DC) Sodium Chloride (SODIUM CHLORIDE 0.9%) 250 ML Potassium Chloride (K-SHWETHA 20 MEQ PACKET) 40 MEQ ONCE ONE FEED-TUBE (DC) Ipratropium [place] (ATROVENT) 500 MCG Q2H PRN P RN INH Furosemide (LASIX 20MG INJ) 20 MG ONCE ONE IV (D C) Magnesium Sulfate/Dextrose (MAGNESIUM SULFATE 1G M/D5W 100ML) 100 ML ONCE ONE IV (DC) Cyanocobalamin (Vitamin B-12 500 mcg tab) 500 MC G DAILY PO Ferrous Sulfate (FERROUS SULFATE) 325 MG DAILY P O Lidocaine HCl (XYLOCAINE) 0 .STK-MED ONE .ROUTE (DC) Amiodarone HCl (NEXTERONE 150MG/D5W 100ML) 100 M L STAT STA IV (DC) Insulin Glargine (Lantus/Semglee) 12 UNIT BEDTIM E SUBQ Amiodarone HCl (AMIODARONE HCL) 450 MG ASDIR IV (CKD) Dextrose/Water (D5%W NON-DEHP) 250 ML Acetylcysteine (MUCOMYST FOR RT) 200 MG RTQ8H NE B Bisacodyl (DULCOLAX) 10 MG ONCE PRN RECTAL Magnesium Hydroxide (MILK OF MAGNESIA) 30 ML ONC E PRN PO Heparin Sodium (HEPARIN 5000 UNITS/ML) 5,000 UNI T Q12HR SUBQ Dextrose/Water (DEXTROSE 10% IN WATER) 250 ML DIR PRN IV (CKD) Insulin Human Regular (HumuLIN R) 100 UNIT ASDIR IV (CKD) Sodium Chloride (SODIUM CHLORIDE 0.9%) 99 ML Dopamine HCl/Dextrose (DOPamine 400MG/D5W 250ML) 250 ML ASDIR IV Clopidogrel Bisulfate (Plavix) 75 MG DAILY PO Polyethylene Glycol (MIRALAX) 17 GM DAILY PO Pantoprazole (PROTONIX) 40 MG DAILY@0600 PO Docusate Sodium (COLACE) 100 MG BID PO Gabapentin (NEURONTIN) 200 MG BID PO Metoprolol Tartrate (LOPRESSOR) 12.5 MG Q12HR PO Mupirocin (BACTROBAN 2% 22 GM OINTMENT) 1 APPLIC BID NASAL Sennosides (Senna Lax 8.6 MG TABLET) 17.2 MG BED TIME PO Aspirin (ASPIRIN) 81 MG DAILY PO Amiodarone HCl (CORDARONE) 200 MG TID PO Acetaminophen (TYLENOL) 650 MG Q4H PRN PRN PO Acetaminophen (TYLENOL) 650 MG Q4H PRN PRN RECTA L Calcium Chloride (CALCIUM CHLORIDE) 1 GM ASDIR P RN IV Dextrose/Water (DEXTROSE 10% IN WATER) 125 ML DIR PRN IV (CKD) Dextrose/Water (DEXTROSE 10% IN WATER) 250 ML DIR PRN IV (CKD) Epinephrine (ADRENALIN CHLORIDE) 4 MG ASDIR IV Dextrose/Water (DEXTROSE 5% WATER) 246 ML Glucagon (GLUCAGON) 1 MG ASDIR PRN IM Insulin Human Regular (HumuLIN R) 100 UNIT ASDIR IV (DC) Sodium Chloride (SODIUM CHLORIDE 0.9%) 99 ML Ipratropium [place] (ATROVENT) 500 MCG RTQ4H INH Magnesium Sulfate (MAGNESIUM SULFATE 4GM/SWFI 10 0ML) 100 ML ASDIR PRN IV Magnesium Sulfate (MAGNESIUM SULFATE 2GM/SWFI 50 ML) 50 ML ASDIR PRN IV Magnesium Sulfate/Dextrose (MAGNESIUM SULFATE 1G M/D5W 100ML) 100 ML ASDIR PRN IV Nitroglycerin/Dextrose (NITROGLYCERIN 50,000MCG/ D5W 250ML) 250 ML ASDIR IV Norepinephrine Bitartrate (NOREPINEPHRINE 8 MG/N S 250 ML) 250 ML TITRATE IV Ondansetron HCl (ZOFRAN) 4 MG Q6H PRN PRN IV Oxycodone HCl (ROXICODONE) 5 MG Q4H PRN PRN PO Oxycodone HCl (ROXICODONE) 10 MG Q4H PRN PRN PO Potassium Chloride (KCL 20MEQ/SWFI 100ML) 100 ML ASDIR PRN IV Sodium Bicarbonate (SODIUM BICARBONATE) 50 MEQ A SDIR PRN IV Sodium Chloride (SODIUM CHLORIDE 0.9%) 1,000 ML .Q20H IV Sodium Chloride (SODIUM CHLORIDE 0.9%) 250 ML Q2 4H IV Atorvastatin Calcium (LIPITOR) 40 MG 2100 PO Melatonin (Melatonin) 6 MG BEDTIME PO Sodium Chloride (SODIUM CHLORIDE) 20 ML ASDIR IV Acetaminophen (TYLENOL) 650 MG Q4H PRN PRN PO Physical Exam General appearance: no acute distress Head/Eyes: atraumatic, clear cornea, EOMI, PERRL A Neck: supple/no meningismus Cardiovascular: normal heart sounds, reg ular rate rhythm, no gallop, no murmur , no rub Respiratory: aerating well, clear to auscultatio n Abdomen: non-tender, normal bowel sounds, soft, no distention Extremities: no clubbing, no cyanosis, no edema Musculoskeletal: normal inspection, painless ran ge of motion 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, oriented X 3, CNII-XII intact Skin: dry, intact Results Findings/Data: Laboratory Tests 06/19 06/19 06/19 06/19 06/19 2159 1819 1445 0445 0340 Chemistry Sodium (134 - 147 mEq/L) 141 139 Potassium (3.4 - 5.0 mEq/L) 3.6 4.0 Chloride (100 - 108 mEq/L) 110 H 108 Carbon Dioxide (21 - 33 mEq/l) 29 27 Anion Gap (0 - 20) 5 8 BUN (7 - 18 mg/dL) 18 19 H Creatinine (0.6 - 1.3 mg/dL) 0.7 0.7 Glomerular Filtr Rate (80 - 90) 95.9 H 95.9 H Glucose (70 - 110 mg/dL) 156 H 181 H POC Glucose (70 - 110 MG/DL) 133 H 147 H 165 H Calcium (8.0 - 10.5 mg/dL) 9.0 9.0 Ionized Calcium Jonas (1.09 - 1.30 MMOL/L) 1.21 Phosphorus (2.5 - 4.9 MG/DL) 1.9 L Magnesium (1.80 - 2.40 mg/dL) 1.86 1.78 L Total Bilirubin (0.0 - 1.0 mg/dL) 1.10 H Direct Bilirubin (0.0 - 0.30 MG/DL) 0.50 H Indirect Bilirubin (MG/DL) 0.60 AST (15 - 37 IUnit/L) 39 H ALT (30 - 65 IUnit/L) 14 L Total Alk Phosphatase (20 - 125 IUnit/L) 61 Total Protein (6.4 - 8.2 g/dL) 5.3 L Albumin (3.4 - 5.0 g/dL) 2.80 L 06/19 06/19 0159 0010 Chemistry POC Glucose (70 - 110 MG/DL) 146 H 125 H Laboratory Tests 06/19 0340 Hematology WBC (4.5 - 11.0 x10 3/uL) 10.3 RBC (3.54 - 5.02 x10 6/uL) 2.80 L Hgb (11.0 - 15.0 g/dL) 8.5 L Hct (33.0 - 45.0 %) 25.1 L MCV (81.0 - 99.0 fL) 89.6 MCH (27.0 - 33.0 pg) 30.4 MCHC (33.0 - 37.0 g/dL) 33.9 RDW (11.5 - 14.5 %) 14.1 Plt Count (150 - 400 x10 3/uL) 104 L MPV (7.0 - 9.0 fL) 10.7 H Neut % (Auto) (56.0 - 77.0 %) 74.7 Lymph % (Auto) (14.0 - 32.0 %) 17.0 [place] % (Auto) (4.8 - 9.0 %) 5.1 Eos % (Auto) (0.3 - 3.7 %) 2.0 Baso % (Auto) (0.0 - 2.0 %) 0.3 Neut # (Auto) (2.0 - 7.6 x10 3/uL) 7.68 H Lymph # (Auto) (1.0 - 3.8 x10 3/uL) 1.75 [place] # (Auto) (0.1 - 0.8 x10 3/uL) 0.52 Eos # (Auto) (0.0 - 0.2 x10 3/uL) 0.21 H Baso # (Auto) (0.0 - 0.2 x10 3/uL) 0.03 Abs Immat Gran (auto) (0.00 - 0.03 x10 3/uL) 0. 09 H Add Manual Diff NO Immature Gran % (0.0 - 2.0 %) 0.9 Nucleated RBC % (0 - 0 %) 0.2 H Nucleated RBCs # (Man) (0.0 - 0.1 x10 3/uL) 0.0 2 Radiology data: Recent Impressions: RADIOLOGY - XR CHEST 1 V 06/19 0705 Report Impression - Status: SIGNED Entered: 06/19/2022 0843 IMPRESSION: 1. Stable postoperative chest following drainage tube removal. 2. Small residual left apical pneumothorax, unch anged. 3. Stable pulmonary opacities and left basilar p leuroparenchymal disease. Impression By: Adam Sprague M.D. Treatment Prophylaxis Treatment Prophylaxis Drain(s)/tube(s): Drain(s)/tube(s): chest Diagnosis, Assessment Plan Free Text DxA P Notes Free text DxA P notes: atrial fibrillation on amio drip CAD cath with multivessel CAD CTS seen Status post 4 vessel CABG today echo wnl Status post CABG Off Levophed off dopamine drip Patient extubated Has 2 chest tubes which have been removed today on insulin drip DM on SSI prn monitor sugars closely on insulin drip HLD stable anemia s/p one unit hgb stable food getting stuck in the esophagus consult GI check labs in am Electronically Signed by Reva Murrell MD on 0 06/19/22 at 2355 RPT #:[id number] END OF REPORT 2022-06-19 16:59:00-00:00 [facility] Endocrinology Progress Note REPORT#:[id number] REPORT STATUS: Signed DATE:06/19/22 TIME: 1659 PATIENT: KALA TURPIN UNIT #: [id number] ROOM/BED: [place] [id number] : 59 AGE: 67 SEX: F ATTEND: Rosa Murrell MD ADM AUTHOR: Jurgen Wolf MD * ALL edits or amendments must be made on the [employer]/computer document * Subjective Patient reports: no complaints Objective General VS: Last Documented: Result Date Time Pulse Ox 98 06/19 1351 B/P 94/53 06/19 1351 B/P Mean 67 06/19 1351 Temp 37.2 06/19 1351 Pulse 89 06/19 1351 Resp 16 06/19 1351 O2 Delivery Nasal cannula 06/19 0750 O2 Flow Rate 2 06/19 0750 FiO2 40 06/16 1748 PATIENT WEIGHT: Weight (lb): 222 Weight (oz): 14.2 Weight (kg): 101.100 Medications: Active Meds + DC'd Last 24 Hrs Potassium Chloride (K-SHWETHA 20 MEQ PACKET) 40 MEQ ONCE ONE FEED-TUBE (DC) Ipratropium [place] (ATROVENT) 500 MCG Q2H PRN P RN INH Furosemide (LASIX 20MG INJ) 20 MG ONCE ONE IV (D C) Magnesium Sulfate/Dextrose (MAGNESIUM SULFATE 1G M/D5W 100ML) 100 ML ONCE ONE IV (DC) Cyanocobalamin (Vitamin B-12 500 mcg tab) 500 MC G DAILY PO Ferrous Sulfate (FERROUS SULFATE) 325 MG DAILY P O Lidocaine HCl (XYLOCAINE) 0 .STK-MED ONE .ROUTE (DC) Amiodarone HCl (NEXTERONE 150MG/D5W 100ML) 100 M L STAT STA IV (DC) Insulin Glargine (Lantus/Semglee) 12 UNIT BEDTIM E SUBQ Amiodarone HCl (AMIODARONE HCL) 450 MG ASDIR IV (CKD) Dextrose/Water (D5%W NON-DEHP) 250 ML Amiodarone HCl (NEXTERONE 150MG/D5W 100ML) 100 M L STAT STA IV (DC) Acetylcysteine (MUCOMYST FOR RT) 200 MG RTQ8H NE B Bisacodyl (DULCOLAX) 10 MG ONCE PRN RECTAL Magnesium Hydroxide (MILK OF MAGNESIA) 30 ML ONC E PRN PO Heparin Sodium (HEPARIN 5000 UNITS/ML) 5,000 UNI T Q12HR SUBQ Dextrose/Water (DEXTROSE 10% IN WATER) 250 ML DIR PRN IV (CKD) Insulin Human Regular (HumuLIN R) 100 UNIT ASDIR IV (CKD) Sodium Chloride (SODIUM CHLORIDE 0.9%) 99 ML Dopamine HCl/Dextrose (DOPamine 400MG/D5W 250ML) 250 ML ASDIR IV Clopidogrel Bisulfate (Plavix) 75 MG DAILY PO Polyethylene Glycol (MIRALAX) 17 GM DAILY PO Pantoprazole (PROTONIX) 40 MG DAILY@0600 PO Docusate Sodium (COLACE) 100 MG BID PO Gabapentin (NEURONTIN) 200 MG BID PO Metoprolol Tartrate (LOPRESSOR) 12.5 MG Q12HR PO Mupirocin (BACTROBAN 2% 22 GM OINTMENT) 1 APPLIC BID NASAL Sennosides (Senna Lax 8.6 MG TABLET) 17.2 MG BED TIME PO Aspirin (ASPIRIN) 81 MG DAILY PO Amiodarone HCl (CORDARONE) 200 MG TID PO Acetaminophen (TYLENOL) 650 MG Q4H PRN PRN PO Acetaminophen (TYLENOL) 650 MG Q4H PRN PRN RECTA L Calcium Chloride (CALCIUM CHLORIDE) 1 GM ASDIR P RN IV Dextrose/Water (DEXTROSE 10% IN WATER) 125 ML DIR PRN IV (CKD) Dextrose/Water (DEXTROSE 10% IN WATER) 250 ML DIR PRN IV (CKD) Epinephrine (ADRENALIN CHLORIDE) 4 MG ASDIR IV Dextrose/Water (DEXTROSE 5% WATER) 246 ML Glucagon (GLUCAGON) 1 MG ASDIR PRN IM Insulin Human Regular (HumuLIN R) 100 UNIT ASDIR IV (DC) Sodium Chloride (SODIUM CHLORIDE 0.9%) 99 ML Ipratropium [place] (ATROVENT) 500 MCG RTQ4H INH Magnesium Sulfate (MAGNESIUM SULFATE 4GM/SWFI 10 0ML) 100 ML ASDIR PRN IV Magnesium Sulfate (MAGNESIUM SULFATE 2GM/SWFI 50 ML) 50 ML ASDIR PRN IV Magnesium Sulfate/Dextrose (MAGNESIUM SULFATE 1G M/D5W 100ML) 100 ML ASDIR PRN IV Nitroglycerin/Dextrose (NITROGLYCERIN 50,000MCG/ D5W 250ML) 250 ML ASDIR IV Norepinephrine Bitartrate (NOREPINEPHRINE 8 MG/N S 250 ML) 250 ML TITRATE IV Ondansetron HCl (ZOFRAN) 4 MG Q6H PRN PRN IV Oxycodone HCl (ROXICODONE) 5 MG Q4H PRN PRN PO Oxycodone HCl (ROXICODONE) 10 MG Q4H PRN PRN PO Potassium Chloride (KCL 20MEQ/SWFI 100ML) 100 ML ASDIR PRN IV Sodium Bicarbonate (SODIUM BICARBONATE) 50 MEQ A SDIR PRN IV Sodium Chloride (SODIUM CHLORIDE 0.9%) 1,000 ML .Q20H IV Sodium Chloride (SODIUM CHLORIDE 0.9%) 250 ML Q2 4H IV Atorvastatin Calcium (LIPITOR) 40 MG 2100 PO Melatonin (Melatonin) 6 MG BEDTIME PO Sodium Chloride (SODIUM CHLORIDE) 20 ML ASDIR IV Acetaminophen (TYLENOL) 650 MG Q4H PRN PRN PO Physical Exam General appearance: alert, awake Diagnosis, Assessment Plan Hospital course to date: Laboratory Tests: 06/19 06/19 06/19 06/19 06/19 1445 0445 0340 0159 0010 Chemistry Sodium (134 - 147 mEq/L) 141 139 Potassium (3.4 - 5.0 mEq/L) 3.6 4.0 Chloride (100 - 108 mEq/L) 110 H 108 Carbon Dioxide (21 - 33 mEq/l) 29 27 Anion Gap (0 - 20) 5 8 BUN (7 - 18 mg/dL) 18 19 H Creatinine (0.6 - 1.3 mg/dL) 0.7 0.7 Glomerular Filtr Rate (80 - 90) 95.9 H 95.9 H Glucose (70 - 110 mg/dL) 156 H 181 H POC Glucose (70 - 110 MG/DL) 165 H 146 H 125 H Calcium (8.0 - 10.5 mg/dL) 9.0 9.0 Phosphorus (2.5 - 4.9 MG/DL) 1.9 L Magnesium (1.80 - 2.40 mg/dL) 1.86 1.78 L Total Bilirubin (0.0 - 1.0 mg/dL) 1.10 H Direct Bilirubin (0.0 - 0.30 MG/DL) 0.50 H Indirect Bilirubin (MG/DL) 0.60 AST (15 - 37 IUnit/L) 39 H ALT (30 - 65 IUnit/L) 14 L Total Alk Phosphatase (20 - 125 IUnit/L) 61 Total Protein (6.4 - 8.2 g/dL) 5.3 L Albumin (3.4 - 5.0 g/dL) 2.80 L Hematology WBC (4.5 - 11.0 x10 3/uL) 10.3 RBC (3.54 - 5.02 x10 6/uL) 2.80 L Hgb (11.0 - 15.0 g/dL) 8.5 L Hct (33.0 - 45.0 %) 25.1 L MCV (81.0 - 99.0 fL) 89.6 MCH (27.0 - 33.0 pg) 30.4 MCHC (33.0 - 37.0 g/dL) 33.9 RDW (11.5 - 14.5 %) 14.1 Plt Count (150 - 400 x10 3/uL) 104 L MPV (7.0 - 9.0 fL) 10.7 H Neut % (Auto) (56.0 - 77.0 %) 74.7 Lymph % (Auto) (14.0 - 32.0 %) 17.0 [place] % (Auto) (4.8 - 9.0 %) 5.1 Eos % (Auto) (0.3 - 3.7 %) 2.0 Baso % (Auto) (0.0 - 2.0 %) 0.3 Neut # (Auto) (2.0 - 7.6 x10 3/uL) 7.68 H Lymph # (Auto) (1.0 - 3.8 x10 3/uL) 1.75 [place] # (Auto) (0.1 - 0.8 x10 3/uL) 0.52 Eos # (Auto) (0.0 - 0.2 x10 3/uL) 0.21 H Baso # (Auto) (0.0 - 0.2 x10 3/uL) 0.03 Abs Immat Gran (auto) (0.00 - 0.03 0.09 H x10 3/uL) Add Manual Diff NO Immature Gran % (0.0 - 2.0 %) 0.9 Nucleated RBC % (0 - 0 %) 0.2 H Nucleated RBCs # (Man) (0.0 - 0.1 0.02 x10 3/uL) 06/18 Chemistry POC Glucose (70 - 110 MG/DL) 103 114 H Recent Impressions: RADIOLOGY - XR CHEST 1 V 06/19 0705 Report Impression - Status: SIGNED Entered: 06/19/2022 0843 IMPRESSION: 1. Stable postoperative chest following drainage tube removal. 2. Small residual left apical pneumothorax, unch anged. 3. Stable pulmonary opacities and left basilar p leuroparenchymal disease. Impression By: Adam Sprague M.D. Laboratory Tests: 06/18 06/18 06/18 06/18 06/18 1601 1600 1545 1148 0747 Blood Gas Puncture Site Art Line O2 Saturation (90 - 100 %) 97.4 ABG pH (7.35 - 7.45) 7.436 ABG pCO2 (35.0 - 45 mmHg) 41.2 ABG pO2 (80 - 100.0 mmHg) 93.6 ABG HCO3 (22.0 - 26.0 MMOL/L) 27.7 H ABG Total CO2 28.9 ABG Base Excess (-4.0 - 4.0 MMOL/L) 3.5 ABG Hematocrit (33.0 - 45.0 %) 24 L ABG Hemoglobin (11.0 - 15.0 G/DL) 8.1 L Sodium (134 - 147 mmol/L) 140 Potassium (3.4 - 5.0 mmol/L) 4.1 Chloride (100 - 108 mmol/L) 104 Ionized Calcium (1.12 - 1.32 MMOL/L) 1.34 H Lactic Acid (0.9 - 1.7 mmol/l) 0.8 L Temperature (F) 99 O2 Delivery Device Cannula Chemistry Sodium (134 - 147 mEq/L) 141 Potassium (3.4 - 5.0 mEq/L) 4.2 Chloride (100 - 108 mEq/L) 110 H Carbon Dioxide (21 - 33 mEq/l) 26 Anion Gap (0 - 20) 9 BUN (7 - 18 mg/dL) 23 H Creatinine (0.6 - 1.3 mg/dL) 0.9 POC Creatinine (0.6 - 1.0 mg/dL) 0.6 Glomerular Filtr Rate (80 - 90) 71.0 L Glucose (70 - 110 mg/dL) 184 H POC Glucose (70 - 110 MG/DL) 163 H 152 H 193 H POC Glucose (mg/dL) (70 - 110 MG/DL) 175 H Calcium (8.0 - 10.5 mg/dL) 8.9 06/186 6 33 2017 1800 Blood Gas Puncture Site Art Line O2 Saturation (90 - 100 %) 94.9 ABG pH (7.35 - 7.45) 7.317 L ABG pCO2 (35.0 - 45 mmHg) 54.1 *H ABG pO2 (80 - 100.0 mmHg) 83.3 ABG HCO3 (22.0 - 26.0 MMOL/L) 27.7 H ABG Total CO2 29.4 ABG Base Excess (-4.0 - 4.0 MMOL/L) 1.6 ABG Hematocrit (33.0 - 45.0 %) 25 L ABG Hemoglobin (11.0 - 15.0 G/DL) 8.5 L Sodium (134 - 147 mmol/L) 140 Potassium (3.4 - 5.0 mmol/L) 4.2 Chloride (100 - 108 mmol/L) 106 Ionized Calcium (1.12 - 1.32 MMOL/L) 1.35 H Lactic Acid (0.9 - 1.7 mmol/l) 0.8 L O2 Delivery Device HFNC Chemistry Sodium (134 - 147 mEq/L) 141 Potassium (3.4 - 5.0 mEq/L) 4.4 Chloride (100 - 108 mEq/L) 111 H Carbon Dioxide (21 - 33 mEq/l) 26 Anion Gap (0 - 20) 9 BUN (7 - 18 mg/dL) 19 H Creatinine (0.6 - 1.3 mg/dL) 1.0 POC Creatinine (0.6 - 1.0 mg/dL) 1.0 Glomerular Filtr Rate (80 - 90) 62.5 L Glucose (70 - 110 mg/dL) 203 H POC Glucose (70 - 110 MG/DL) 176 H 156 H 155 H POC Glucose (mg/dL) (70 - 110 MG/DL) 206 H Calcium (8.0 - 10.5 mg/dL) 8.8 Magnesium (1.80 - 2.40 mg/dL) 2.21 Total Bilirubin (0.0 - 1.0 mg/dL) 1.00 Direct Bilirubin (0.0 - 0.30 MG/DL) 0.50 H Indirect Bilirubin (MG/DL) 0.50 AST (15 - 37 IUnit/L) 55 H ALT (30 - 65 IUnit/L) 13 L Total Alk Phosphatase (20 - 125 IUnit/L) 59 Total Protein (6.4 - 8.2 g/dL) 5.8 L Albumin (3.4 - 5.0 g/dL) 3.40 TSH (0.42 - 5.47) 0.38 L Free T4 (0.77 - 1.61 ng/dL) 1.2 Hematology WBC (4.5 - 11.0 x10 3/uL) 14.2 H RBC (3.54 - 5.02 x10 6/uL) 2.96 L Hgb (11.0 - 15.0 g/dL) 9.0 L Hct (33.0 - 45.0 %) 26.9 L MCV (81.0 - 99.0 fL) 90.9 MCH (27.0 - 33.0 pg) 30.4 MCHC (33.0 - 37.0 g/dL) 33.5 RDW (11.5 - 14.5 %) 14.7 H Plt Count (150 - 400 x10 3/uL) 90 L MPV (7.0 - 9.0 fL) 10.9 H Neut % (Auto) (56.0 - 77.0 %) 80.1 H Lymph % (Auto) (14.0 - 32.0 %) 12.5 L [place] % (Auto) (4.8 - 9.0 %) 6.3 Eos % (Auto) (0.3 - 3.7 %) 0.2 L Baso % (Auto) (0.0 - 2.0 %) 0.2 Neut # (Auto) (2.0 - 7.6 x10 3/uL) 11.34 H Lymph # (Auto) (1.0 - 3.8 x10 3/uL) 1.77 [place] # (Auto) (0.1 - 0.8 x10 3/uL) 0.89 H Eos # (Auto) (0.0 - 0.2 x10 3/uL) 0.03 Baso # (Auto) (0.0 - 0.2 x10 3/uL) 0.03 Abs Immat Gran (auto) (0.00 - 0.03 0.10 H x10 3/uL) Add Manual Diff NO Immature Gran % (0.0 - 2.0 %) 0.7 Nucleated RBC % (0 - 0 %) 0.1 H Nucleated RBCs # (Man) (0.0 - 0.1 0.02 x10 3/uL) Recent Impressions: RADIOLOGY - XR CHEST 1 V 06/18 0905 Report Impression - Status: SIGNED Entered: 06/18/2022 1028 IMPRESSION: 1. Mild enlarged cardiac silhouette. 2. [id number] pulmonary edema versus infil trates. 3. Linear left perihilar pulmonary atelectasis, scarring. Decreased lung volumes. 4. Left-sided chest tube with small in the thora x in the left apical chest. Impression By: [email or web address] - Victor Manuel Mcallister M.D. 1. Diabetes mellitus type 2 uncontrolled with co mplications. 2. Multivessel coronary artery disease. 3. Status post CABG 4. Hypertension 5. Hyperlipidemia 6. Obesity Blood sugar 181-165 mg/dL. HbA1c 8.3%. Adjust insulin drip settings and start on Lantus at bedtime. Electronically Signed by Jurgen Wolf MD on at 1700 RPT #:[id number] END OF REPORT 2022-06-19 15:16:00-00:00 [facility] REPORT#:[id number] REPORT STATUS: Signed DATE:06/19/22 TIME: 151 PATIENT: KALA TURPIN UNIT #: [id number] ROOM[address]BED: [address] : [address] AGE: 67 SEX: F ATTEND: Reji Patel MD ADM AUTHOR: Ursula Perkins ACNP * ALL edits or amendments must be made on the [employer]/computer document * Ursula Perkins 06/19/22 1516: Subjective Comments: afib RVR - on amiodarone drip. OOB to chair. Objective General VS/I O: 24 hour I O ending at 0700: 06/19 0700 06/18 1900 Intake Total 1014.00 1099.00 Output Total 955 725 Balance 59.00 374.00 Intake, IV 574.00 379.00 Intake, Oral 440 720 Output, Chest 150 Tube Drainage Output, Urine 955 575 Patient 101.1 kg Weight Weight Bed scale Measurement Method Vital Signs: Date Time Temp Pulse Resp B/P B/P Pulse O2 O2 F low FiO2 Mean Ox Delivery Rate 06/19 1351 37.2 89 16 94/53 67 98 06/19 1345 37.2 91 13 97/49 64 98 06/19 1330 37.3 102 12 120/59 78 100 06/19 1300 37.3 96 17 100/63 76 99 06/19 1230 37.3 88 12 110/57 73 99 06/19 1200 37.3 93 18 136/69 91 99 03/27 1145 37.3 95 19 135/69 91 99 03/27 1119 113/56 76 03/27 1119 95 18 118/62 80 100 03/27 1100 37.2 99 12 119/60 78 99 03/27 1030 37.1 98 11 122/60 78 99 03/27 1018 37.1 109 21 129/66 87 99 03/27 1000 37.1 107 14 122/60 78 99 03/27 0930 37.0 110 26 136/65 87 97 03/27 0900 36.9 103 14 121/61 80 99 03/27 0845 36.9 116 19 147/67 92 98 03/27 0830 36.9 125 27 127/61 85 99 03/27 0815 36.8 116 19 134/62 83 99 03/27 0800 36.8 94 12 104/50 65 100 03/27 0750 98 Nasal 2 cannula 03/27 0745 36.8 103 14 100/50 64 100 03/27 0730 Nasal 2 cannula 03/27 0730 36.9 99 12 107/50 66 100 03/27 0717 36.9 110 13 121/58 76 99 03/27 0715 36.9 106 11 124/57 76 99 03/27 0700 37.0 105 13 124/56 76 99 03/27 0645 37.0 103 12 120/54 73 98 03/27 0630 37.1 108 13 118/55 73 99 03/27 0615 37.1 120 14 130/58 79 99 03/27 0600 37.2 115 15 127/62 82 99 03/27 0545 37.1 111 21 140/64 88 98 03/27 0530 111 19 140/64 87 100 03/27 0515 114 19 126/52 74 97 03/27 0500 169/78 112 03/27 0500 37.0 114 15 144/64 87 98 03/27 0445 134/63 91 03/27 0445 37.0 111 17 127/61 80 98 03/27 0430 125/60 87 03/27 0430 37.0 114 15 108/49 66 98 03/27 0415 123/58 83 03/27 0415 37.0 109 13 112/50 68 97 03/27 0400 36.5 03/27 0400 131/56 86 03/27 0400 37.0 124 11 137/61 84 98 03/27 0345 143/64 92 03/27 0345 37.0 107 12 135/60 82 98 03/27 0330 132/65 93 03/27 0330 37.0 113 15 127/63 83 100 03/27 0328 98 Nasal 2 cannula 03/27 0315 132/62 89 03/27 0315 37.0 103 18 114/50 69 99 03/27 0300 123/58 84 03/27 0300 37.0 113 13 118/50 70 99 03/27 0245 130/58 83 03/27 0245 37.0 105 13 123/52 72 98 03/27 0230 133/64 92 03/27 0230 37.0 116 12 128/54 75 98 03/27 0215 142/65 94 03/27 0215 37.0 119 18 143/63 87 99 03/27 0200 132/64 92 03/27 0200 36.9 122 16 146/64 88 99 03/27 0145 117/59 81 03/27 0145 36.9 113 11 122/52 72 99 03/27 0130 119/59 85 03/27 0130 36.9 119 15 116/51 70 99 03/27 0115 135/56 81 03/27 0115 36.9 116 14 112/49 67 99 03/27 0100 130/60 87 03/27 0100 36.9 119 13 119/52 72 99 03/27 0045 137/63 91 03/27 0045 36.9 120 12 122/53 73 99 03/27 0030 126/59 85 03/27 0030 36.9 118 12 115/51 70 99 03/27 0015 138/63 91 03/27 0015 36.9 123 13 136/60 84 99 03/ 0000 36.3 03/ 0000 127/56 81 03/27 0000 36.9 122 22 102/50 70 98 03/ 2345 146/65 94 03/ 2345 36.9 118 11 144/64 90 99 03/ 2331 161/69 99 03/ 2330 36.9 126 15 130/68 89 100 03/ 2315 36.9 115 13 107/51 68 99 03/ 2300 112/55 77 03/ 2300 36.9 116 14 101/49 64 99 03/ 2245 117/59 80 03/ 2245 36.9 114 14 106/50 67 99 06/18 2230 114/59 79 06/18 2230 36.9 119 12 98/45 61 99 06/18 2215 109/55 74 03 2215 36.9 115 13 97/43 58 99 06/18 2200 110/58 79 06/18 2200 36.8 119 14 110/50 68 99 06/18 2145 136/60 87 06/18 2145 36.8 114 12 125/54 75 98 06/18 2130 132/60 87 06/18 2130 36.8 117 11 124/58 77 98 06/19 2115 142/65 93 06/18 211 36.8 117 12 137/62 84 98 06/18 2114 36.8 122 11 140/63 85 98 06/18 2100 109/56 81 06/18 2100 36.8 117 17 97/46 61 97 06/18 2044 119/57 82 06/18 2044 36.8 113 10 112/48 66 97 06/18 2030 119/55 77 06/18 2029 36.8 122 14 109/47 65 97 06/18 2015 125/66 86 06/18 2014 36.8 124 12 124/51 72 98 06/18 2000 Nasal 2 cannula 06/18 2000 119/56 81 06/19 1999 36.8 134 12 109/46 64 98 06/18 1945 138/63 90 06/18 1945 36.9 133 10 128/54 75 98 06/18 1931 137/61 88 06/18 1931 37.0 148 16 145/67 91 100 06/18 1930 37.0 135 16 136/65 86 99 06/18 1930 99 Nasal 2 cannula 06/18 1915 108/54 78 06/18 1915 37.0 62 16 111/41 59 99 06/18 1900 115/54 78 06/18 1900 36.9 65 16 116/42 60 99 06/18 1815 125/59 85 06/18 1815 36.9 72 11 130/47 69 99 / 1800 120/56 81 06/18 1800 36.9 68 17 116/42 61 99 06/18 1745 133/60 87 06/18 1745 36.9 75 16 122/47 69 99 06/18 1730 121/58 84 06/18 1730 36.9 74 17 151/54 80 99 03/26 1716 131/78 95 06/18 1716 36.9 73 23 152/55 82 98 06/18 1700 122/57 82 06/18 1700 36.9 65 11 115/43 62 99 06/18 1645 123/56 80 06/18 1645 36.9 71 12 119/44 64 98 06/18 1630 140/61 88 06/18 1630 37.0 74 18 118/48 69 97 06/18 1615 141/64 92 06/18 1615 37.0 73 12 135/47 70 97 06/18 1601 148/65 94 06/18 1601 37.0 76 11 154/54 83 98 06/18 1549 98 High flow 2 nasal cannula 06/18 1545 116/56 81 06/18 1545 37.1 68 12 130/48 70 97 06/18 1530 134/58 90 06/18 1530 37.1 72 13 141/52 77 97 PATIENT WEIGHT: Weight (lb): 222 Weight (oz): 14.2 Weight (kg): 101.100 Medications: Active Meds + DC'd Last 24 Hrs Ipratropium [place] (ATROVENT) 500 MCG Q2H PRN P RN INH Furosemide (LASIX 20MG INJ) 20 MG ONCE ONE IV (D C) Magnesium Sulfate/Dextrose (MAGNESIUM SULFATE 1G M/D5W 100ML) 100 ML ONCE ONE IV (DC) Cyanocobalamin (Vitamin B-12 500 mcg tab) 500 MC G DAILY PO Ferrous Sulfate (FERROUS SULFATE) 325 MG DAILY P O Lidocaine HCl (XYLOCAINE) 0 .STK-MED ONE .ROUTE (DC) Amiodarone HCl (NEXTERONE 150MG/D5W 100ML) 100 M L STAT STA IV (DC) Insulin Glargine (Lantus/Semglee) 12 UNIT BEDTIM E SUBQ Amiodarone HCl (AMIODARONE HCL) 450 MG ASDIR IV (CKD) Dextrose/Water (D5%W NON-DEHP) 250 ML Amiodarone HCl (NEXTERONE 150MG/D5W 100ML) 100 M L STAT STA IV (DC) Acetylcysteine (MUCOMYST FOR RT) 200 MG RTQ8H NE B Bisacodyl (DULCOLAX) 10 MG ONCE PRN RECTAL Magnesium Hydroxide (MILK OF MAGNESIA) 30 ML ONC E PRN PO Heparin Sodium (HEPARIN 5000 UNITS/ML) 5,000 UNI T Q12HR SUBQ Dextrose/Water (DEXTROSE 10% IN WATER) 250 ML DIR PRN IV (CKD) Insulin Human Regular (HumuLIN R) 100 UNIT ASDIR IV (CKD) Sodium Chloride (SODIUM CHLORIDE 0.9%) 99 ML Dopamine HCl/Dextrose (DOPamine 400MG/D5W 250ML) 250 ML ASDIR IV Clopidogrel Bisulfate (Plavix) 75 MG DAILY PO Polyethylene Glycol (MIRALAX) 17 GM DAILY PO Pantoprazole (PROTONIX) 40 MG DAILY@0600 PO Docusate Sodium (COLACE) 100 MG BID PO Gabapentin (NEURONTIN) 200 MG BID PO Metoprolol Tartrate (LOPRESSOR) 12.5 MG Q12HR PO Mupirocin (BACTROBAN 2% 22 GM OINTMENT) 1 APPLIC BID NASAL Sennosides (Senna Lax 8.6 MG TABLET) 17.2 MG BED TIME PO Aspirin (ASPIRIN) 81 MG DAILY PO Amiodarone HCl (CORDARONE) 200 MG TID PO Acetaminophen (TYLENOL) 650 MG Q4H PRN PRN PO Acetaminophen (TYLENOL) 650 MG Q4H PRN PRN RECTA L Calcium Chloride (CALCIUM CHLORIDE) 1 GM ASDIR P RN IV Dextrose/Water (DEXTROSE 10% IN WATER) 125 ML DIR PRN IV (CKD) Dextrose/Water (DEXTROSE 10% IN WATER) 250 ML DIR PRN IV (CKD) Epinephrine (ADRENALIN CHLORIDE) 4 MG ASDIR IV Dextrose/Water (DEXTROSE 5% WATER) 246 ML Glucagon (GLUCAGON) 1 MG ASDIR PRN IM Insulin Human Regular (HumuLIN R) 100 UNIT ASDIR IV (DC) Sodium Chloride (SODIUM CHLORIDE 0.9%) 99 ML Ipratropium [place] (ATROVENT) 500 MCG RTQ4H INH Magnesium Sulfate (MAGNESIUM SULFATE 4GM/SWFI 10 0ML) 100 ML ASDIR PRN IV Magnesium Sulfate (MAGNESIUM SULFATE 2GM/SWFI 50 ML) 50 ML ASDIR PRN IV Magnesium Sulfate/Dextrose (MAGNESIUM SULFATE 1G M/D5W 100ML) 100 ML ASDIR PRN IV Nitroglycerin/Dextrose (NITROGLYCERIN 50,000MCG/ D5W 250ML) 250 ML ASDIR IV Norepinephrine Bitartrate (NOREPINEPHRINE 8 MG/N S 250 ML) 250 ML TITRATE IV Ondansetron HCl (ZOFRAN) 4 MG Q6H PRN PRN IV Oxycodone HCl (ROXICODONE) 5 MG Q4H PRN PRN PO Oxycodone HCl (ROXICODONE) 10 MG Q4H PRN PRN PO Potassium Chloride (KCL 20MEQ/SWFI 100ML) 100 ML ASDIR PRN IV Sodium Bicarbonate (SODIUM BICARBONATE) 50 MEQ A SDIR PRN IV Sodium Chloride (SODIUM CHLORIDE 0.9%) 1,000 ML .Q20H IV Sodium Chloride (SODIUM CHLORIDE 0.9%) 250 ML Q2 4H IV Atorvastatin Calcium (LIPITOR) 40 MG 2100 PO Melatonin (Melatonin) 6 MG BEDTIME PO Sodium Chloride (SODIUM CHLORIDE) 20 ML ASDIR IV Acetaminophen (TYLENOL) 650 MG Q4H PRN PRN PO Physical Exam General appearance: alert, awake, oriented Neck: no masses or swelling Cardiovascular: CV assessment: irregularly irregular, pedal maverick ma, tachycardia Respiratory: decreased breath sounds, on oxygen Abdomen: soft, non-tender, normal bowel sounds, no distention Genitourinary: urinary catheter, urine Lower extremity: LE assessment: edema, no calf tenderness 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, oriented X 3, normal speech Skin: dry, intact, normal color Psychiatry: normal affect, normal judgment/insig ht, normal mood Results Findings/Data: Laboratory Tests 06/18 1601 Blood Gas Puncture Site Art Line O2 Saturation (90 - 100 %) 97.4 ABG pH (7.35 - 7.45) 7.436 ABG pCO2 (35.0 - 45 mmHg) 41.2 ABG pO2 (80 - 100.0 mmHg) 93.6 ABG HCO3 (22.0 - 26.0 MMOL/L) 27.7 H ABG Total CO2 28.9 ABG Base Excess (-4.0 - 4.0 MMOL/L) 3.5 ABG Hematocrit (33.0 - 45.0 %) 24 L ABG Hemoglobin (11.0 - 15.0 G/DL) 8.1 L Sodium (134 - 147 mmol/L) 140 Potassium (3.4 - 5.0 mmol/L) 4.1 Chloride (100 - 108 mmol/L) 104 Ionized Calcium (1.12 - 1.32 MMOL/L) 1.34 H Lactic Acid (0.9 - 1.7 mmol/l) 0.8 L Temperature (F) 99 O2 Delivery Device Cannula Laboratory Tests 06/19 06/19 06/19 06/19 06/19 1445 0445 0340 0159 0010 Chemistry Sodium (134 - 147 mEq/L) 141 139 Potassium (3.4 - 5.0 mEq/L) 3.6 4.0 Chloride (100 - 108 mEq/L) 110 H 108 Carbon Dioxide (21 - 33 mEq/l) 29 27 Anion Gap (0 - 20) 5 8 BUN (7 - 18 mg/dL) 18 19 H Creatinine (0.6 - 1.3 mg/dL) 0.7 0.7 Glomerular Filtr Rate (80 - 90) 95.9 H 95.9 H Glucose (70 - 110 mg/dL) 156 H 181 H POC Glucose (70 - 110 MG/DL) 165 H 146 H 125 H Calcium (8.0 - 10.5 mg/dL) 9.0 9.0 Phosphorus (2.5 - 4.9 MG/DL) 1.9 L Magnesium (1.80 - 2.40 mg/dL) 1.86 1.78 L Total Bilirubin (0.0 - 1.0 mg/dL) 1.10 H Direct Bilirubin (0.0 - 0.30 MG/DL) 0.50 H Indirect Bilirubin (MG/DL) 0.60 AST (15 - 37 IUnit/L) 39 H ALT (30 - 65 IUnit/L) 14 L Total Alk Phosphatase (20 - 125 61 IUnit/L) Total Protein (6.4 - 8.2 g/dL) 5.3 L Albumin (3.4 - 5.0 g/dL) 2.80 L 06/18 06/18 06/18 06/18 06/18 2233 2033 1601 1600 1545 Chemistry Sodium (134 - 147 mEq/L) 141 Potassium (3.4 - 5.0 mEq/L) 4.2 Chloride (100 - 108 mEq/L) 110 H Carbon Dioxide (21 - 33 mEq/l) 26 Anion Gap (0 - 20) 9 BUN (7 - 18 mg/dL) 23 H Creatinine (0.6 - 1.3 mg/dL) 0.9 POC Creatinine (0.6 - 1.0 mg/dL) 0.6 Glomerular Filtr Rate (80 - 90) 71.0 L Glucose (70 - 110 mg/dL) 184 H POC Glucose (70 - 110 MG/DL) 103 114 H 163 H POC Glucose (mg/dL) (70 - 110 MG/DL) 175 H Calcium (8.0 - 10.5 mg/dL) 8.9 Laboratory Tests 06/19 0340 Hematology WBC (4.5 - 11.0 x10 3/uL) 10.3 RBC (3.54 - 5.02 x10 6/uL) 2.80 L Hgb (11.0 - 15.0 g/dL) 8.5 L Hct (33.0 - 45.0 %) 25.1 L MCV (81.0 - 99.0 fL) 89.6 MCH (27.0 - 33.0 pg) 30.4 MCHC (33.0 - 37.0 g/dL) 33.9 RDW (11.5 - 14.5 %) 14.1 Plt Count (150 - 400 x10 3/uL) 104 L MPV (7.0 - 9.0 fL) 10.7 H Neut % (Auto) (56.0 - 77.0 %) 74.7 Lymph % (Auto) (14.0 - 32.0 %) 17.0 [place] % (Auto) (4.8 - 9.0 %) 5.1 Eos % (Auto) (0.3 - 3.7 %) 2.0 Baso % (Auto) (0.0 - 2.0 %) 0.3 Neut # (Auto) (2.0 - 7.6 x10 3/uL) 7.68 H Lymph # (Auto) (1.0 - 3.8 x10 3/uL) 1.75 [place] # (Auto) (0.1 - 0.8 x10 3/uL) 0.52 Eos # (Auto) (0.0 - 0.2 x10 3/uL) 0.21 H Baso # (Auto) (0.0 - 0.2 x10 3/uL) 0.03 Abs Immat Gran (auto) (0.00 - 0.03 x10 3/uL) 0. 09 H Add Manual Diff NO Immature Gran % (0.0 - 2.0 %) 0.9 Nucleated RBC % (0 - 0 %) 0.2 H Nucleated RBCs # (Man) (0.0 - 0.1 x10 3/uL) 0.0 2 Laboratory Tests 06/19 06/19 1445 0340 Chemistry Magnesium (1.80 - 2.40 mg/dL) 1.86 1.78 L Radiology data: Recent Impressions: RADIOLOGY - XR CHEST 1 V 06/19 0705 Report Impression - Status: SIGNED Entered: 06/19/2022 0843 IMPRESSION: 1. Stable postoperative chest following drainage tube removal. 2. Small residual left apical pneumothorax, unch anged. 3. Stable pulmonary opacities and left basilar p leuroparenchymal disease. Impression By: Adam Sprague M.D. Telemetry Interpretation: afib with variable VR Diagnosis, Assessment Plan Plan discussed with: patient, nurse Free Text DxA P Notes Free Text DxA P Notes: 67-year-old female with [facility] history of CAD, MA, prior PCI/MEG 11 years ago, hypertension, diabetes melli tus, CVA, peripheral neuropathy, Charcot's foot who presented to with chest pain. She was taken for left heart catheterization where she wa s found to have multivessel CAD with failed attempt to PCI the CUT OFF SAWYER LAD. Patient is transferred to [facility] facility for surgical revascularization. 1. Multivessel CAD CABG x 4 (LIN-LAD, SVG-Elisabet, SVG-OM, SVG-PDA) Continue aspirin, beta-xander, statin post-op anemia post-op afib post-op volume overload - received IV lasix this morning. 2. Hypertension BP soft continue BB 3. Diabetes mellitus Manage per primary team 4. Post-operative Afib s/p ALAA on amiodarone Julius Chapman 06/23/22 1214: Attestations Physician Attestation Agree w/findings plan: I have seen and examined the pt, I Agree with e findings and plan as documented by Ursula Perkins. at 7310 Electronically Signed by Julius Washington MD on at 1214 RPT #:[id number] END OF REPORT 2022-06-19 11:30:00-00:00 [facility] Adult General Consultation REPORT#:[id number] REPORT STATUS: Signed DATE:06/19/22 TIME: 1130 PATIENT: KALA TURPIN UNIT #: [id number] ROOM/BED: G2205-1 : 57 AGE: 67 SEX: F ATTEND: Rosa Murrell MD ADM AUTHOR: Kalen Castellanos * ALL edits or amendments must be made on the [employer] document * History of Present Illness Reason for consult: PMR consultation Chief complaint: Weakness post CABG x4 HPI: Very pleasant 67-year-old female with past medic al history of stroke, hypertension, hyperlipidemia, diabetes (on insul in), obstructive sleep apnea, PAD, 2 MIs in the past statu s post PCI/stenting (on Plavix at home), NonHodgkin' s lymphoma (2006) who was at home working on her computer when she suddenly developed severe chest pain radiating to left sh oulder and jaw. Presented to the emergency room, was evaluated by car diology and underwent left heart cath. Coronary angiogram revealed severe multivessel coronary artery disease involving LAD which is totally occluded after the midporti on; diagonal OM branch with proximal stenosis 60 to 70%, left circumflex wit h 80-90% stenosis. Patient transferred to [facility] for surgica l revascularization. Patient underwent CABG x4. She required a postoperative transfusio n for postoperative anemia. Currently patient is in CVICU. We have been aske d to see her in consultation for physical medicine and rehabilitation evaluat ion. History - Adult longitudinal Past medical history: Reports: Coronary artery disease, Diabetes melli tus, Hypertension, Ischemic stroke, Prior MA. Denies: Congestive heart failu re, Kidney disease/stones. Additional medical history: Stroke Hypertension Hyperlipidemia Diabetes Obstructive sleep apnea Coronary artery disease Charcot syndrome Non Hodgkin's lymphoma Past surgical history: Reports: Hysterectomy, PCI. Additional surgical history: Exploratory laparotomy for infected mesh Additional family history: Father with hx of CAD Son of heart attack Alcohol use: Denies EtOH use Drug use: Denies recreational drugs Smoking status for patients 13 years old or olde r: Never Smoker Medications: Home Medications: Medication Dose/Rte/Freq Days Qty Entered Last Max Daily Dose Reviewed LOSARTAN (COZAAR) 25 MG PO DAILY 06/15/2206/15 Strength: 25 MG TAB 109 112 HYDROCHLOROTHIAZIDE 12.5 MG PO DAILY 06/15/22 0 06/15/22 (HCTZ) 109 112 Strength: 12.5 MG CAP PARoxetine HCL (PAXIL) 20 MG PO DAILY 06/15/22 06/15/22 Strength: 20 MG TAB 109 112 METOPROLOL SUCC XL 25 MG PO DAILY 06/15/22 03/06/15 (TOPROL XL) 110 112 Strength: 25 MG TAB.SR.24H Melatonin (MELATONIN) 10 MG SL BEDTIME 06/15/22 06/15/22 Strength: 1 MG TAB 110 112 INSULIN NPH/REG INSULIN 130 UNITS SUBQ 06/15/22 06/15/22 HUM DAILY 072 3 (NovoLIN 70/30) Strength: 100 UNIT/ML (70-30) VIAL INSULIN NPH/REG INSULIN 140 UNITS SUBQ 06/15/22 06/15/22 HUM DAILY 1700 3 0113 (NovoLIN 70/30) Strength: 100 UNIT/ML (70-30) VIAL Current Hospital Medications: fs Category Unknown Sig/William Start time Last Medication Dose Route Stop Time Status Admin Melatonin 6 MG BEDTIME 06/15 2100 AC 06/17 (Melatonin) PO 07/15 Autonomic Drugs Sig/William Start time Last Medication Dose Route Stop Time Status Admin Ipratropium [place] 500 MCG Q2H PRN PRN 06/19 1 150 AC (ATROVENT) INH 07/19 1149 Dopamine HCl/Dextrose 250 ML ASDIR 06/17 1400 A C 06/17 (DOPamine 400MG/D5W IV 07/17 1359 1410 250ML) Epinephrine 4 MG ASDIR 06/16 1200 AC (ADRENALIN CHLORIDE) IV 07/16 1159 Dextrose/Water 246 ML (DEXTROSE 5% WATER) Ipratropium [place] 500 MCG RTQ4H 06/16 1200 AC 06/19 (ATROVENT) INH 07/16 1159 0804 Norepinephrine 250 ML TITRATE 06/16 1200 AC Bitartrate IV 07/16 1159 (NOREPINEPHRINE 8 MG/ NS 250 ML) Blood Formation,Coagulation Sig/William Start time Last Medication Dose Route Stop Time Status Admin Ferrous Sulfate 325 MG DAILY 06/19 0900 AC 05/25 7 (FERROUS SULFATE) PO 07/19 0859 0820 Heparin Sodium 5,000 UNIT Q12HR 06/17 2100 AC 0 06/19 (HEPARIN 5000 UNITS/ SUBQ 07/17 2058 0824 ML) Clopidogrel Bisulfate 75 MG DAILY 06/17 0900 AC 06/19 (Plavix) PO 07/17 0859 0823 Cardiovascular Drugs Sig/William Start time Last Medication Dose Route Stop Time Status Admin Lidocaine HCl 0 .STK-MED ONE 06/19 0606 DC (XYLOCAINE) .ROUTE Amiodarone HCl 100 ML STAT STA 06/19 0159 DC (NEXTERONE 150MG/D5W IV 06/19 0208 0216 100ML) Amiodarone HCl 450 MG ASDIR 06/18 194 CKD 05/25 7 (AMIODARONE HCL) IV 07/18 194 044 Dextrose/Water 250 ML (D5%W NON-DEHP) Amiodarone HCl 100 ML STAT STA 06/18 1933 DC (NEXTERONE 150MG/D5W IV 06/18 1942013 100ML) Metoprolol Tartrate 12.5 MG Q12HR 06/16 2099 AC 06/19 (LOPRESSOR) PO 07/16 2058 0819 Amiodarone HCl 200 MG TID 06/16 1500 AC 06/19 (CORDARONE) PO 07/16 1459 0819 Nitroglycerin/ 250 ML ASDIR 06/16 1200 AC Dextrose IV 07/16 1159 (NITROGLYCERIN 50,000MCG/D5W 250ML) Atorvastatin Calcium 40 MG 2100 06/15 2099 AC 06/18 (LIPITOR) PO 07/15 2058 205 Central Nervous System Agents Sig/William Start time Last Medication Dose Route Stop Time Status Admin Magnesium Sulfate/ 100 ML ONCE ONE 06/19 1115 A C 06/19 Dextrose IV 06/19 1214 1129 (MAGNESIUM SULFATE 1GM/D5W 100ML) Gabapentin 200 MG BID 06/16 2100 AC 06/19 (NEURONTIN) PO 06/21 0901 0823 Aspirin 81 MG DAILY 06/16 1750 AC 06/19 (ASPIRIN) PO 07/16 1749 0818 Acetaminophen 650 MG Q4H PRN PRN 06/16 1200 AC 06/18 (TYLENOL) PO 07/16 1159 1521 Acetaminophen 650 MG Q4H PRN PRN 06/16 1200 AC (TYLENOL) RECTAL 07/16 1159 Magnesium Sulfate 100 ML ASDIR PRN 06/16 1200 A C (MAGNESIUM SULFATE IV 07/16 1159 4GM/SWFI 100ML) Magnesium Sulfate 50 ML ASDIR PRN 06/16 1200 AC 06/19 (MAGNESIUM SULFATE IV 07/16 1159 0440 2GM/SWFI 50ML) Magnesium Sulfate/ 100 ML ASDIR PRN 06/16 1200 AC 06/18 Dextrose IV 07/16 1159 0503 (MAGNESIUM SULFATE 1GM/D5W 100ML) Morphine Sulfate 4 MG Q2H PRN PRN 06/16 1200 DC (morphine SULFATE) IV 06/21 1159 Oxycodone HCl 5 MG Q4H PRN PRN 06/16 1200 AC (ROXICODONE) PO 06/21 1159 1130 Oxycodone HCl 10 MG Q4H PRN PRN 06/16 1200 AC 0 06/17 (ROXICODONE) PO 06/21 1159 1811 Acetaminophen 650 MG Q4H PRN PRN 06/15 0600 AC 06/19 (TYLENOL) PO 07/15 0559 0440 Electrolytic, Caloric, And Faiza Sig/William Start time Last Medication Dose Route Stop Time Status Admin Furosemide 20 MG ONCE ONE 06/19 1115 DC 06/19 (LASIX 20MG INJ) IV 06/19 1116 1129 Dextrose/Water 250 ML ASDIR PRN 06/17 1745 CKD (DEXTROSE 10% IN IV 07/17 1744 WATER) Calcium Chloride 1 GM ASDIR PRN 06/16 1200 AC (CALCIUM CHLORIDE) IV 07/16 1159 Dextrose/Water 125 ML ASDIR PRN 06/16 1200 CKD (DEXTROSE 10% IN IV 07/16 1159 WATER) Dextrose/Water 250 ML ASDIR PRN 06/16 1200 CKD (DEXTROSE 10% IN IV 07/16 1159 WATER) Potassium Chloride 100 ML ASDIR PRN 06/16 1200 AC 06/16 (KCL 20MEQ/SWFI IV 07/16 1159 1501 100ML) Sodium Bicarbonate 50 MEQ ASDIR PRN 06/16 1200 AC 06/16 (SODIUM BICARBONATE) IV 07/16 1159 1215 Sodium Chloride 1,000 ML .Q20H 06/16 1200 AC (SODIUM CHLORIDE IV 07/16 1159 0758 0.9%) Sodium Chloride 250 ML Q24H 06/16 1200 AC 05/25 6 (SODIUM CHLORIDE IV 07/16 1159 1201 0.9%) Sodium Chloride 20 ML ASDIR 06/15 1545 AC (SODIUM CHLORIDE) IV 07/15 1544 Gastrointestinal Drugs Sig/William Start time Last Medication Dose Route Stop Time Status Admin Bisacodyl 10 MG ONCE PRN 06/18 1200 AC (DULCOLAX) RECTAL 07/18 1159 Magnesium Hydroxide 30 ML ONCE PRN 06/18 1200 A C (MILK OF MAGNESIA) PO Polyethylene Glycol 17 GM DAILY 06/17 0900 AC 06/19 (MIRALAX) PO 07/17 0859 0823 Pantoprazole 40 MG DAILY@0600 06/17 0600 AC (PROTONIX) PO 07/17 0559 0439 Docusate Sodium 100 MG BID 06/16 2099 AC 06/19 (COLACE) PO 07/16 2058 0901 Sennosides 17.2 MG BEDTIME 06/16 2100 AC 06/18 (Senna Lax 8.6 MG PO 07/16 TABLET) Ondansetron HCl 4 MG Q6H PRN PRN 06/16 1200 AC (ZOFRAN) IV 07/16 1159 Hormones And Synthetic Substit Sig/William Start time Last Medication Dose Route Stop Time Status Admin Insulin Glargine 12 UNIT BEDTIME 06/18 2100 AC 06/18 (Lantus/Semglee) SUBQ 07/18 Insulin Human Regular 100 UNIT ASDIR 06/17 1745 CKD (HumuLIN R) IV 07/17 1744 Sodium Chloride 99 ML (SODIUM CHLORIDE 0.9%) Glucagon 1 MG ASDIR PRN 06/16 1200 AC (GLUCAGON) IM 07/16 1159 Insulin Human Regular 100 UNIT ASDIR 06/16 1200 DC 06/18 (HumuLIN R) IV 07/16 115 0725 Sodium Chloride 99 ML (SODIUM CHLORIDE 0.9%) Respiratory Tract Agents Sig/William Start time Last Medication Dose Route Stop Time Status Admin Acetylcysteine 200 MG RTQ8H 06/18 1600 AC 06/19 (MUCOMYST FOR RT) NEB 07/18 1559 0804 Skin And Mucous Membrane Agent Sig/William Start time Last Medication Dose Route Stop Time Status Admin Mupirocin 1 APPLIC BID 06/16 2100 AC 06/19 (BACTROBAN 2% 22 GM NASAL 06/21 0901 0818 OINTMENT) Vitamins Sig/William Start time Last Medication Dose Route Stop Time Status Admin Cyanocobalamin 500 MCG DAILY 06/19 0900 AC (Vitamin B-12 500 PO 07/19 0859 mcg tab) Allergies: Coded Allergies: adhesive tape (RASH 06/15/22) niacin (Mild, ANXIETY 06/15/22) zolpidem (From AMBIEN) (CONFUSION 06/15/22) 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 Musculoskeletal: thoracic pain. All systems rev neg: except as marked Objective VS/I O: Last Documented: Result Date Time Pulse Ox 99 06/19 1018 B/P 129/66 06/19 1018 B/P Mean 87 06/19 1018 Temp 98.8 06/19 1018 Pulse 109 06/19 1018 Resp 21 06/19 1018 O2 Delivery Nasal cannula 06/19 0750 O2 Flow Rate 2 06/19 0750 FiO2 40 06/16 1748 24 hour I O ending at 0700: 06/19 0700 06/18 1900 Intake Total 1014.00 1099.00 Output Total 955 725 Balance 59.00 374.00 Intake, IV 574.00 379.00 Intake, Oral 440 720 Output, Chest 150 Tube Drainage Output, Urine 955 575 Patient 223 lb Weight Weight Bed scale Measurement Method PATIENT WEIGHT: Weight (lb): 222 Weight (oz): 14.2 Weight (kg): 101.100 General appearance: obese, alert, awake Head/Eyes: atraumatic, clear cornea, EOMI ENT: normal dentition, normal ear left, normal e ar right Neck: non-tender, no lymphadenopathy Cardiovascular: regular rate rhythm, no murmur Respiratory: decreased breath sounds, symmetric expansion Abdomen: non-tender, no rebound, no distention Musculoskeletal: normal inspection, straight leg raise neg, no muscle spasm 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, oriented X 3, CNII-XII grossly intact Skin: intact, no rash, surgical incisions C/D/I Lymphatics: no lymphadenopathy Psychiatry: normal affect, normal judgment/insig ht Results Findings/Data: Laboratory Tests: 06/19 06/19 06/19 06/19 0445 0340 0159 0010 Chemistry Sodium (134 - 147 mEq/L) 139 Potassium (3.4 - 5.0 mEq/L) 4.0 Chloride (100 - 108 mEq/L) 108 Carbon Dioxide (21 - 33 mEq/l) 27 Anion Gap (0 - 20) 8 BUN (7 - 18 mg/dL) 19 H Creatinine (0.6 - 1.3 mg/dL) 0.7 Glomerular Filtr Rate (80 - 90) 95.9 H Glucose (70 - 110 mg/dL) 181 H POC Glucose (70 - 110 MG/DL) 165 H 146 H 125 H Calcium (8.0 - 10.5 mg/dL) 9.0 Magnesium (1.80 - 2.40 mg/dL) 1.78 L Total Bilirubin (0.0 - 1.0 mg/dL) 1.10 H Direct Bilirubin (0.0 - 0.30 MG/DL) 0.50 H Indirect Bilirubin (MG/DL) 0.60 AST (15 - 37 IUnit/L) 39 H ALT (30 - 65 IUnit/L) 14 L Total Alk Phosphatase (20 - 125 IUnit/L) 61 Total Protein (6.4 - 8.2 g/dL) 5.3 L Albumin (3.4 - 5.0 g/dL) 2.80 L Hematology WBC (4.5 - 11.0 x10 3/uL) 10.3 RBC (3.54 - 5.02 x10 6/uL) 2.80 L Hgb (11.0 - 15.0 g/dL) 8.5 L Hct (33.0 - 45.0 %) 25.1 L MCV (81.0 - 99.0 fL) 89.6 MCH (27.0 - 33.0 pg) 30.4 MCHC (33.0 - 37.0 g/dL) 33.9 RDW (11.5 - 14.5 %) 14.1 Plt Count (150 - 400 x10 3/uL) 104 L MPV (7.0 - 9.0 fL) 10.7 H Neut % (Auto) (56.0 - 77.0 %) 74.7 Lymph % (Auto) (14.0 - 32.0 %) 17.0 [place] % (Auto) (4.8 - 9.0 %) 5.1 Eos % (Auto) (0.3 - 3.7 %) 2.0 Baso % (Auto) (0.0 - 2.0 %) 0.3 Neut # (Auto) (2.0 - 7.6 x10 3/uL) 7.68 H Lymph # (Auto) (1.0 - 3.8 x10 3/uL) 1.75 [place] # (Auto) (0.1 - 0.8 x10 3/uL) 0.52 Eos # (Auto) (0.0 - 0.2 x10 3/uL) 0.21 H Baso # (Auto) (0.0 - 0.2 x10 3/uL) 0.03 Abs Immat Gran (auto) (0.00 - 0.03 x10 3/uL) 0. 09 H Add Manual Diff NO Immature Gran % (0.0 - 2.0 %) 0.9 Nucleated RBC % (0 - 0 %) 0.2 H Nucleated RBCs # (Man) (0.0 - 0.1 x10 3/uL) 0.0 2 06/18 06/18 06/18 06/18 06/18 2233 2033 1601 1600 1545 Blood Gas Puncture Site Art Line O2 Saturation (90 - 100 %) 97.4 ABG pH (7.35 - 7.45) 7.436 ABG pCO2 (35.0 - 45 mmHg) 41.2 ABG pO2 (80 - 100.0 mmHg) 93.6 ABG HCO3 (22.0 - 26.0 MMOL/L) 27.7 H ABG Total CO2 28.9 ABG Base Excess (-4.0 - 4.0 MMOL/L) 3.5 ABG Hematocrit (33.0 - 45.0 %) 24 L ABG Hemoglobin (11.0 - 15.0 G/DL) 8.1 L Sodium (134 - 147 mmol/L) 140 Potassium (3.4 - 5.0 mmol/L) 4.1 Chloride (100 - 108 mmol/L) 104 Ionized Calcium (1.12 - 1.32 MMOL/L) 1.34 H Lactic Acid (0.9 - 1.7 mmol/l) 0.8 L Temperature (F) 99 O2 Delivery Device Cannula Chemistry Sodium (134 - 147 mEq/L) 141 Potassium (3.4 - 5.0 mEq/L) 4.2 Chloride (100 - 108 mEq/L) 110 H Carbon Dioxide (21 - 33 mEq/l) 26 Anion Gap (0 - 20) 9 BUN (7 - 18 mg/dL) 23 H Creatinine (0.6 - 1.3 mg/dL) 0.9 POC Creatinine (0.6 - 1.0 mg/dL) 0.6 Glomerular Filtr Rate (80 - 90) 71.0 L Glucose (70 - 110 mg/dL) 184 H POC Glucose (70 - 110 MG/DL) 103 114 H 163 H POC Glucose (mg/dL) (70 - 110 MG/DL) 175 H Calcium (8.0 - 10.5 mg/dL) 8.9 06/18 1148 Chemistry POC Glucose (70 - 110 MG/DL) 152 H Recent Impressions: RADIOLOGY - XR CHEST 1 V 06/19 0705 Report Impression - Status: SIGNED Entered: 06/19/2022 0843 IMPRESSION: 1. Stable postoperative chest following drainage tube removal. 2. Small residual left apical pneumothorax, unch anged. 3. Stable pulmonary opacities and left basilar p leuroparenchymal disease. Impression By: Adam Sprague M.D. Diagnosis, Assessment Plan Free Text DxA P Notes Free Text DxA P Notes: Multivessel CAD Status post CABG x4 Impaired mobility and gait Generalized weakness Postoperative anemia requiring transfusion Diabetes Hyperlipidemia Orthostatic hypotension Plan: Continue PT/OT Out of bed to chair Work on strength, bed mobility, transfers, gait Sternal precautions Increase endurance Fall precautions Monitor p.o. 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 Contacted rehab if slow to progress. We will see how she does with therapies tomorrow. bringing wheelchair up for PT to use Electronically Signed by Kalen Castellanos on 0 06/19/22 at 1917 RPT #:[id number] END OF REPORT 2022-06-19 09:02:00-00:00 [facility] REPORT#:[id number] REPORT STATUS: Signed DATE:06/19/22 TIME: 09 PATIENT: KALA TURPIN UNIT #: [id number] ROOM/BED: [place] [id number] : 59 AGE: 67 SEX: F ATTEND: Jerri Murrell MD ADM AUTHOR: [facility] * ALL edits or amendments must be made on the [employer]/computer document * General Post-op: day 3 Status post: 06/16/22 CABG x 4 (LIN-LAD, SVG-Elisabet, SVG-OM, SVG-PDA) ALAA EVH (RGSV) Posterior pericardiotomy Subjective Chief complaint: Follow up CABG Resting comfortable, OOB in chair Review of Systems Constitutional: Reports: generalized weakness. Denies: chills, f atigue. Skin: Denies: diaphoresis, ecchymosis, laceration. Allergy/Immun: Denies: anaphylaxis, hives, rhinorrhea. Eyes: Denies: discharge, itching, eye pain. ENT: Denies: earache, mouth pain, throat pain, tootha spencer. Respiratory: Denies: pneumonia, SOB, wheezing. Cardiovascular: Denies: chest pain, palpitations. GI: Denies: abdominal pain, nausea, vomiting. : Denies: dysuria, flank pain. Musculoskeletal: Denies: extremity pain. Heme: Denies: petechiae. Endocrine: Denies: cold intolerance, polyphagia, weight los s. Neuro: Denies: change in LOC, dizziness, seizure, synco pe, unable to speak. All systems rev neg: except as marked (in the HP I) Objective General VS/I O Last Documented: Result Date Time Pulse Ox 98 06/19 0845 B/P 147/67 06/19 0845 B/P Mean 92 06/19 0845 Temp 98.4 06/19 0845 Pulse 116 06/19 0845 Resp 19 06/19 0845 O2 Delivery Nasal cannula 06/20 327 O2 Flow Rate 2 06/20 327 FiO2 40 06/16 1748 24 hour I O ending at 0700: 06/19 0700 06/18 1900 Intake Total 1014.00 1099.00 Output Total 955 725 Balance 59.00 374.00 Intake, IV 574.00 379.00 Intake, Oral 440 720 Output, Chest 150 Tube Drainage Output, Urine 955 575 Patient 101.1 kg Weight Weight Bed scale Measurement Method PATIENT WEIGHT: Weight (lb): 222 Weight (oz): 14.2 Weight (kg): 101.100 Dietitian Nutrition assessment The data set between the solid lines has been im ported from the dietitian's assessment. BMI Calculated: 42.1 Nutrition related diagnosis: Morbid obesity Nutrition diagnosis details: BMI 40 or more Nutrition problem: Increased nutrient needs Nutrition etiology: SURGERY Nutrition signs and symptoms: ESTIMATED NEEDS Nutrition prescription: ADAT TO REGULAR DIET S/P EXTUBATION IF PO INTAKE <50% CONSIDER ONS Dietitian name: Kostas Beach, DIET Assessment completed: 06/16/22 Physical Exam General appearance: alert, awake, oriented Wound/incision: Location: sternal Site condition: dressing clean dry, dressing in tact HEENT: anicteric, mucosal membranes moist, pupil s reactive to light Neck: full range of motion, non-tender, supple/n o meningismus Cardiovascular: normal heart sounds, regular rat e rhythm Respiratory: decreased breath sounds, aerating w ell, symmetric expansion, no distress Abdomen: soft, non-tender Genitourinary: urine Extremities: dry, moves all Musculoskeletal: full range of motion 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, 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 X 3 Skin: dry, intact Psychiatry: normal affect, normal mood Current Medications Medications: Active Meds + DC'd Last 24 Hrs Ipratropium [place] (ATROVENT) 500 MCG Q2H PRN P RN INH Cyanocobalamin (Vitamin B-12 500 mcg tab) 500 MC G DAILY PO Ferrous Sulfate (FERROUS SULFATE) 325 MG DAILY P O Lidocaine HCl (XYLOCAINE) 0 .STK-MED ONE .ROUTE (DC) Amiodarone HCl (NEXTERONE 150MG/D5W 100ML) 100 M L STAT STA IV (DC) Insulin Glargine (Lantus/Semglee) 12 UNIT BEDTIM E SUBQ Amiodarone HCl (AMIODARONE HCL) 450 MG ASDIR IV (CKD) Dextrose/Water (D5%W NON-DEHP) 250 ML Amiodarone HCl (NEXTERONE 150MG/D5W 100ML) 100 M L STAT STA IV (DC) Acetylcysteine (MUCOMYST FOR RT) 200 MG RTQ8H NE B Bisacodyl (DULCOLAX) 10 MG ONCE PRN RECTAL Magnesium Hydroxide (MILK OF MAGNESIA) 30 ML ONC E PRN PO Heparin Sodium (HEPARIN 5000 UNITS/ML) 5,000 UNI T Q12HR SUBQ Dextrose/Water (DEXTROSE 10% IN WATER) 250 ML DIR PRN IV (CKD) Insulin Human Regular (HumuLIN R) 100 UNIT ASDIR IV (CKD) Sodium Chloride (SODIUM CHLORIDE 0.9%) 99 ML Dopamine HCl/Dextrose (DOPamine 400MG/D5W 250ML) 250 ML ASDIR IV Clopidogrel Bisulfate (Plavix) 75 MG DAILY PO Polyethylene Glycol (MIRALAX) 17 GM DAILY PO Pantoprazole (PROTONIX) 40 MG DAILY@0600 PO Docusate Sodium (COLACE) 100 MG BID PO Gabapentin (NEURONTIN) 200 MG BID PO Metoprolol Tartrate (LOPRESSOR) 12.5 MG Q12HR PO Mupirocin (BACTROBAN 2% 22 GM OINTMENT) 1 APPLIC BID NASAL Sennosides (Senna Lax 8.6 MG TABLET) 17.2 MG BED TIME PO Aspirin (ASPIRIN) 81 MG DAILY PO Amiodarone HCl (CORDARONE) 200 MG TID PO Acetaminophen (TYLENOL) 650 MG Q4H PRN PRN PO Acetaminophen (TYLENOL) 650 MG Q4H PRN PRN RECTA L Calcium Chloride (CALCIUM CHLORIDE) 1 GM ASDIR P RN IV Dextrose/Water (DEXTROSE 10% IN WATER) 125 ML DIR PRN IV (CKD) Dextrose/Water (DEXTROSE 10% IN WATER) 250 ML DIR PRN IV (CKD) Epinephrine (ADRENALIN CHLORIDE) 4 MG ASDIR IV Dextrose/Water (DEXTROSE 5% WATER) 246 ML Glucagon (GLUCAGON) 1 MG ASDIR PRN IM Insulin Human Regular (HumuLIN R) 100 UNIT ASDIR IV (DC) Sodium Chloride (SODIUM CHLORIDE 0.9%) 99 ML Ipratropium [place] (ATROVENT) 500 MCG RTQ4H INH Magnesium Sulfate (MAGNESIUM SULFATE 4GM/SWFI 10 0ML) 100 ML ASDIR PRN IV Magnesium Sulfate (MAGNESIUM SULFATE 2GM/SWFI 50 ML) 50 ML ASDIR PRN IV Magnesium Sulfate/Dextrose (MAGNESIUM SULFATE 1G M/D5W 100ML) 100 ML ASDIR PRN IV Morphine Sulfate (morphine SULFATE) 4 MG Q2H PRN PRN IV (DC) Nitroglycerin/Dextrose (NITROGLYCERIN 50,000MCG/ D5W 250ML) 250 ML ASDIR IV Norepinephrine Bitartrate (NOREPINEPHRINE 8 MG/N S 250 ML) 250 ML TITRATE IV Ondansetron HCl (ZOFRAN) 4 MG Q6H PRN PRN IV Oxycodone HCl (ROXICODONE) 5 MG Q4H PRN PRN PO Oxycodone HCl (ROXICODONE) 10 MG Q4H PRN PRN PO Potassium Chloride (KCL 20MEQ/SWFI 100ML) 100 ML ASDIR PRN IV Sodium Bicarbonate (SODIUM BICARBONATE) 50 MEQ A SDIR PRN IV Sodium Chloride (SODIUM CHLORIDE 0.9%) 1,000 ML .Q20H IV Sodium Chloride (SODIUM CHLORIDE 0.9%) 250 ML Q2 4H IV Atorvastatin Calcium (LIPITOR) 40 MG 2100 PO Melatonin (Melatonin) 6 MG BEDTIME PO Sodium Chloride (SODIUM CHLORIDE) 20 ML ASDIR IV Acetaminophen (TYLENOL) 650 MG Q4H PRN PRN PO Results Findings/Data: Laboratory Tests 06/18 1601 Blood Gas Puncture Site Art Line O2 Saturation (90 - 100 %) 97.4 ABG pH (7.35 - 7.45) 7.436 ABG pCO2 (35.0 - 45 mmHg) 41.2 ABG pO2 (80 - 100.0 mmHg) 93.6 ABG HCO3 (22.0 - 26.0 MMOL/L) 27.7 H ABG Total CO2 28.9 ABG Base Excess (-4.0 - 4.0 MMOL/L) 3.5 ABG Hematocrit (33.0 - 45.0 %) 24 L ABG Hemoglobin (11.0 - 15.0 G/DL) 8.1 L Sodium (134 - 147 mmol/L) 140 Potassium (3.4 - 5.0 mmol/L) 4.1 Chloride (100 - 108 mmol/L) 104 Ionized Calcium (1.12 - 1.32 MMOL/L) 1.34 H Lactic Acid (0.9 - 1.7 mmol/l) 0.8 L Temperature (F) 99 O2 Delivery Device Cannula Laboratory Tests 06/19 06/19 06/19 06/19 06/18 0445 0340 0159 0010 2233 Chemistry Sodium (134 - 147 mEq/L) 139 Potassium (3.4 - 5.0 mEq/L) 4.0 Chloride (100 - 108 mEq/L) 108 Carbon Dioxide (21 - 33 mEq/l) 27 Anion Gap (0 - 20) 8 BUN (7 - 18 mg/dL) 19 H Creatinine (0.6 - 1.3 mg/dL) 0.7 Glomerular Filtr Rate (80 - 90) 95.9 H Glucose (70 - 110 mg/dL) 181 H POC Glucose (70 - 110 MG/DL) 165 H 146 H 125 H 103 Calcium (8.0 - 10.5 mg/dL) 9.0 Magnesium (1.80 - 2.40 mg/dL) 1.78 L Total Bilirubin (0.0 - 1.0 mg/dL) 1.10 H Direct Bilirubin (0.0 - 0.30 MG/DL) 0.50 H Indirect Bilirubin (MG/DL) 0.60 AST (15 - 37 IUnit/L) 39 H ALT (30 - 65 IUnit/L) 14 L Total Alk Phosphatase (20 - 125 IUnit/L) 61 Total Protein (6.4 - 8.2 g/dL) 5.3 L Albumin (3.4 - 5.0 g/dL) 2.80 L 06/18 1601 1600 1545 1148 Chemistry Sodium (134 - 147 mEq/L) 141 Potassium (3.4 - 5.0 mEq/L) 4.2 Chloride (100 - 108 mEq/L) 110 H Carbon Dioxide (21 - 33 mEq/l) 26 Anion Gap (0 - 20) 9 BUN (7 - 18 mg/dL) 23 H Creatinine (0.6 - 1.3 mg/dL) 0.9 POC Creatinine (0.6 - 1.0 mg/dL) 0.6 Glomerular Filtr Rate (80 - 90) 71.0 L Glucose (70 - 110 mg/dL) 184 H POC Glucose (70 - 110 MG/DL) 114 H 163 H 152 H POC Glucose (mg/dL) (70 - 110 MG/DL) 175 H Calcium (8.0 - 10.5 mg/dL) 8.9 Laboratory Tests 06/19 0340 Hematology WBC (4.5 - 11.0 x10 3/uL) 10.3 RBC (3.54 - 5.02 x10 6/uL) 2.80 L Hgb (11.0 - 15.0 g/dL) 8.5 L Hct (33.0 - 45.0 %) 25.1 L MCV (81.0 - 99.0 fL) 89.6 MCH (27.0 - 33.0 pg) 30.4 MCHC (33.0 - 37.0 g/dL) 33.9 RDW (11.5 - 14.5 %) 14.1 Plt Count (150 - 400 x10 3/uL) 104 L MPV (7.0 - 9.0 fL) 10.7 H Neut % (Auto) (56.0 - 77.0 %) 74.7 Lymph % (Auto) (14.0 - 32.0 %) 17.0 [place] % (Auto) (4.8 - 9.0 %) 5.1 Eos % (Auto) (0.3 - 3.7 %) 2.0 Baso % (Auto) (0.0 - 2.0 %) 0.3 Neut # (Auto) (2.0 - 7.6 x10 3/uL) 7.68 H Lymph # (Auto) (1.0 - 3.8 x10 3/uL) 1.75 [place] # (Auto) (0.1 - 0.8 x10 3/uL) 0.52 Eos # (Auto) (0.0 - 0.2 x10 3/uL) 0.21 H Baso # (Auto) (0.0 - 0.2 x10 3/uL) 0.03 Abs Immat Gran (auto) (0.00 - 0.03 x10 3/uL) 0. 09 H Add Manual Diff NO Immature Gran % (0.0 - 2.0 %) 0.9 Nucleated RBC % (0 - 0 %) 0.2 H Nucleated RBCs # (Man) (0.0 - 0.1 x10 3/uL) 0.0 2 Radiology data: Recent Impressions: RADIOLOGY - XR CHEST 1 V 06/18 0905 Report Impression - Status: SIGNED Entered: 06/18/2022 1028 IMPRESSION: 1. Mild enlarged cardiac silhouette. 2. [id number] pulmonary edema versus infil trates. 3. Linear left perihilar pulmonary atelectasis, scarring. Decreased lung volumes. 4. Left-sided chest tube with small in the thora x in the left apical chest. Impression By: [email or web address] - Victor Manuel Mcallister M.D. RADIOLOGY - XR CHEST 1 V 06/19 0705 Report Impression - Status: SIGNED Entered: 06/19/2022 0843 IMPRESSION: 1. Stable postoperative chest following drainage tube removal. 2. Small residual left apical pneumothorax, unch anged. 3. Stable pulmonary opacities and left basilar p leuroparenchymal disease. Impression By: Adam Sprague M.D. Results: labs reviewed, vital signs stable, ryth m personally rev'd, x-ray personally reviewed, current med profile rev'd Treatment Prophylaxis Treatment Prophylaxis Oxygen: nasal cannula Diagnosis, Assessment Plan Hospital course to date: Very pleasant 67-year-old female with past medic al history of stroke, hypertension, hyperlipidemia, diabetes (on insul in), obstructive sleep apnea, PAD, 2 MIs in the past statu s post PCI/stenting (on Plavix at home), NonHodgkin' s lymphoma (2006) who was at home working on her computer when she suddenly developed severe chest pain radiating to left sh oulder and jaw. Presented to the emergency room, was evaluated by car diology and underwent left heart cath. Coronary angiogram revealed severe multivessel coronary artery disease involving LAD which is totally occluded after the midporti on; diagonal OM branch with proximal stenosis 60 to 70%, left circumflex wit h 80-90% stenosis. Patient transferred to [facility] for surgical revasc ularization. PLAN Coronary angiogram images re viewed with Dr. Rogel and findings discussed with the patient. Will benefit from surgical revascul arization. Initiate preop work-up for CABG Hold Plavix. Obtain platelet response test to Pl avix Carotid ultrasound Noncontrasted chest BLE venous Doppler for vein mapping and marking Completed echocardiogram Incentive spirometer teaching Physical therapy evaluation given Charcot syndro me and limited mobilization Further recommendations to follow. 06/16/22 CABG x 4 (LIN-LAD, SVG-Elisabet, SVG-OM, SVG-PDA) ALAA EVH (RGSV) Posterior pericardiotomy 06/17/22 POD 1 Patient is alert and oriented, out of bed in dulce ir Labile blood pressure. Minimal pressor requireme nts, levo at 1, wean off as tolerated Transfuse 1 unit PRBC On 2l nasal cannula, encoura ge incentive spirometer use, nebs and deep breathing NSR on nutrition coordinator, no ectopy, epicardial pa cing wires on standby Keep both chest tubes and monitor outputs Cardiac diet Glycemic control on insulin drip, monitor blood sugars, consult endocrinology Bowel regimen protocol PT/OT DVT prophylaxis with SCDs and SQ heparin, GI pro phylaxis with PPI Monitor patient in CVICU Patient seen with Dr. Rogel, plan of care disc ussed with ICU team 06/18 No major events overnight, alert and oriented Wean O2 as tolerated. Encourage I-S On dopamine drip at 3 for renal perfusion; pt smith d low UOP yesterday Off levophed Cr 1.0 from 1.2. Strict I's and O's Chest tubes with minimal output; we will discont inue this morning Bowel regimen Glycemic control with insulin drip. Endocrinolog y following DVT prophylaxis with heparin subq Keep in CVICU today Pt seen and plan reviewed with Dr Rogel 06/19 POD 3 Patient in stable condition. Alert, awake, and o riented, oob in chair CXR and labs reviewed-stable Patient went into afib rvr- recieved amio bolus x 2 and amio drip Rebolus amio this am, Wean dopamine off and micah tor UOP and BP Monitor renal function, Cr 0.7 Strict I Os Cardiac diet, nutritional supplements SSI-glycemic control DVT ppx- SCDs and heparin SQ Continue supportive care in CVICU Rehab consulted Patient seen with Dr. Rogel, plan of care disc ussed with ICU team. Plan discussed with: patient , admitting physician, consultants, nurse, interdisc care team at 1444 at 1809 RPT #:[id number] END OF REPORT 2022-06-19 08:28:00-00:00 [facility] ([facility]) Critical Care Progress Note REPORT#:[id number] REPORT STATUS: Signed DATE:06/19/22 TIME: 827 PATIENT: KALA TURPIN UNIT #: [id number] ROOM/BED: [place] [id number] : 57 AGE: 67 SEX: F ATTEND: Rosa Murrell MD ADM AUTHOR: Armand Goff MD * ALL edits or amendments must be made on the [employer]/computer document * Subjective Chief complaint: s/p CABG x4 (LIN-LAD, SVG-Elisabet, SVG-OM, SVG-PDA) ALAA EVH (RGSV) Posterior pericardiotomy on 06/16/2022 Comments: Out of bed to chair Remains on insulin drip On dopamine drip at 3 mics, UOP 950 cc Went into A-fib with RVR overnight Given amiodarone bolus and started on drip Possible choking reported, no BM Objective General VS/I O Last Documented: Result Date Time Pulse Ox 99 06/19 0717 B/P 121/58 06/19 07 B/P Mean 76 06/19 07 Temp 98.4 06/19 07 Pulse 110 06/19 0717 Resp 13 06/19 0717 O2 Delivery Nasal cannula 06/19 0328 O2 Flow Rate 2 06/19 0328 FiO2 40 06/16 1748 24 hour I O ending at 0700: 06/19 0700 06/18 1900 Intake Total 1014.00 1099.00 Output Total 955 725 Balance 59.00 374.00 Intake, IV 574.00 379.00 Intake, Oral 440 720 Output, Chest 150 Tube Drainage Output, Urine 955 575 Patient 101.1 kg Weight Weight Bed scale Measurement Method PATIENT WEIGHT: Weight (lb): 222 Weight (oz): 14.2 Weight (kg): 101.100 Medications: Active Meds + DC'd Last 24 Hrs Ipratropium [place] (ATROVENT) 500 MCG Q2H PRN P RN INH Cyanocobalamin (Vitamin B-12 500 mcg tab) 500 MC G DAILY PO Ferrous Sulfate (FERROUS SULFATE) 325 MG DAILY P O Lidocaine HCl (XYLOCAINE) 0 .STK-MED ONE .ROUTE (DC) Amiodarone HCl (NEXTERONE 150MG/D5W 100ML) 100 M L STAT STA IV (DC) Insulin Glargine (Lantus/Semglee) 12 UNIT BEDTIM E SUBQ Amiodarone HCl (AMIODARONE HCL) 450 MG ASDIR IV (CKD) Dextrose/Water (D5%W NON-DEHP) 250 ML Amiodarone HCl (NEXTERONE 150MG/D5W 100ML) 100 M L STAT STA IV (DC) Acetylcysteine (MUCOMYST FOR RT) 200 MG RTQ8H NE B Bisacodyl (DULCOLAX) 10 MG ONCE PRN RECTAL Magnesium Hydroxide (MILK OF MAGNESIA) 30 ML ONC E PRN PO Heparin Sodium (HEPARIN 5000 UNITS/ML) 5,000 UNI T Q12HR SUBQ Dextrose/Water (DEXTROSE 10% IN WATER) 250 ML DIR PRN IV (CKD) Insulin Human Regular (HumuLIN R) 100 UNIT ASDIR IV (CKD) Sodium Chloride (SODIUM CHLORIDE 0.9%) 99 ML Dopamine HCl/Dextrose (DOPamine 400MG/D5W 250ML) 250 ML ASDIR IV Clopidogrel Bisulfate (Plavix) 75 MG DAILY PO Polyethylene Glycol (MIRALAX) 17 GM DAILY PO Pantoprazole (PROTONIX) 40 MG DAILY@0600 PO Docusate Sodium (COLACE) 100 MG BID PO Gabapentin (NEURONTIN) 200 MG BID PO Metoprolol Tartrate (LOPRESSOR) 12.5 MG Q12HR PO Mupirocin (BACTROBAN 2% 22 GM OINTMENT) 1 APPLIC BID NASAL Sennosides (Senna Lax 8.6 MG TABLET) 17.2 MG BED TIME PO Aspirin (ASPIRIN) 81 MG DAILY PO Amiodarone HCl (CORDARONE) 200 MG TID PO Acetaminophen (TYLENOL) 650 MG Q4H PRN PRN PO Acetaminophen (TYLENOL) 650 MG Q4H PRN PRN RECTA L Calcium Chloride (CALCIUM CHLORIDE) 1 GM ASDIR P RN IV Dextrose/Water (DEXTROSE 10% IN WATER) 125 ML DIR PRN IV (CKD) Dextrose/Water (DEXTROSE 10% IN WATER) 250 ML DIR PRN IV (CKD) Epinephrine (ADRENALIN CHLORIDE) 4 MG ASDIR IV Dextrose/Water (DEXTROSE 5% WATER) 246 ML Glucagon (GLUCAGON) 1 MG ASDIR PRN IM Insulin Human Regular (HumuLIN R) 100 UNIT ASDIR IV (DC) Sodium Chloride (SODIUM CHLORIDE 0.9%) 99 ML Ipratropium [place] (ATROVENT) 500 MCG RTQ4H INH Magnesium Sulfate (MAGNESIUM SULFATE 4GM/SWFI 10 0ML) 100 ML ASDIR PRN IV Magnesium Sulfate (MAGNESIUM SULFATE 2GM/SWFI 50 ML) 50 ML ASDIR PRN IV Magnesium Sulfate/Dextrose (MAGNESIUM SULFATE 1G M/D5W 100ML) 100 ML ASDIR PRN IV Morphine Sulfate (morphine SULFATE) 4 MG Q2H PRN PRN IV (DC) Nitroglycerin/Dextrose (NITROGLYCERIN 50,000MCG/ D5W 250ML) 250 ML ASDIR IV Norepinephrine Bitartrate (NOREPINEPHRINE 8 MG/N S 250 ML) 250 ML TITRATE IV Ondansetron HCl (ZOFRAN) 4 MG Q6H PRN PRN IV Oxycodone HCl (ROXICODONE) 5 MG Q4H PRN PRN PO Oxycodone HCl (ROXICODONE) 10 MG Q4H PRN PRN PO Potassium Chloride (KCL 20MEQ/SWFI 100ML) 100 ML ASDIR PRN IV Sodium Bicarbonate (SODIUM BICARBONATE) 50 MEQ A SDIR PRN IV Sodium Chloride (SODIUM CHLORIDE 0.9%) 1,000 ML .Q20H IV Sodium Chloride (SODIUM CHLORIDE 0.9%) 250 ML Q2 4H IV Atorvastatin Calcium (LIPITOR) 40 MG 2100 PO Melatonin (Melatonin) 6 MG BEDTIME PO Sodium Chloride (SODIUM CHLORIDE) 20 ML ASDIR IV Acetaminophen (TYLENOL) 650 MG Q4H PRN PRN PO Results Findings/data: Laboratory Tests 06/18 1601 Blood Gas Puncture Site Art Line O2 Saturation (90 - 100 %) 97.4 ABG pH (7.35 - 7.45) 7.436 ABG pCO2 (35.0 - 45 mmHg) 41.2 ABG pO2 (80 - 100.0 mmHg) 93.6 ABG HCO3 (22.0 - 26.0 MMOL/L) 27.7 H ABG Total CO2 28.9 ABG Base Excess (-4.0 - 4.0 MMOL/L) 3.5 ABG Hematocrit (33.0 - 45.0 %) 24 L ABG Hemoglobin (11.0 - 15.0 G/DL) 8.1 L Sodium (134 - 147 mmol/L) 140 Potassium (3.4 - 5.0 mmol/L) 4.1 Chloride (100 - 108 mmol/L) 104 Ionized Calcium (1.12 - 1.32 MMOL/L) 1.34 H Lactic Acid (0.9 - 1.7 mmol/l) 0.8 L Temperature (F) 99 O2 Delivery Device Cannula Laboratory Tests 06/19 06/19 06/19 06/19 06/18 0445 0340 0159 0010 2233 Chemistry Sodium (134 - 147 mEq/L) 139 Potassium (3.4 - 5.0 mEq/L) 4.0 Chloride (100 - 108 mEq/L) 108 Carbon Dioxide (21 - 33 mEq/l) 27 Anion Gap (0 - 20) 8 BUN (7 - 18 mg/dL) 19 H Creatinine (0.6 - 1.3 mg/dL) 0.7 Glomerular Filtr Rate (80 - 90) 95.9 H Glucose (70 - 110 mg/dL) 181 H POC Glucose (70 - 110 MG/DL) 165 H 146 H 125 H 103 Calcium (8.0 - 10.5 mg/dL) 9.0 Magnesium (1.80 - 2.40 mg/dL) 1.78 L Total Bilirubin (0.0 - 1.0 mg/dL) 1.10 H Direct Bilirubin (0.0 - 0.30 MG/DL) 0.50 H Indirect Bilirubin (MG/DL) 0.60 AST (15 - 37 IUnit/L) 39 H ALT (30 - 65 IUnit/L) 14 L Total Alk Phosphatase (20 - 125 IUnit/L) 61 Total Protein (6.4 - 8.2 g/dL) 5.3 L Albumin (3.4 - 5.0 g/dL) 2.80 L 06/18 06/18 06/18 06/18 06/18 2033 1601 1600 1545 1148 Chemistry Sodium (134 - 147 mEq/L) 141 Potassium (3.4 - 5.0 mEq/L) 4.2 Chloride (100 - 108 mEq/L) 110 H Carbon Dioxide (21 - 33 mEq/l) 26 Anion Gap (0 - 20) 9 BUN (7 - 18 mg/dL) 23 H Creatinine (0.6 - 1.3 mg/dL) 0.9 POC Creatinine (0.6 - 1.0 mg/dL) 0.6 Glomerular Filtr Rate (80 - 90) 71.0 L Glucose (70 - 110 mg/dL) 184 H POC Glucose (70 - 110 MG/DL) 114 H 163 H 152 H POC Glucose (mg/dL) (70 - 110 MG/DL) 175 H Calcium (8.0 - 10.5 mg/dL) 8.9 Laboratory Tests 06/19 0340 Hematology WBC (4.5 - 11.0 x10 3/uL) 10.3 RBC (3.54 - 5.02 x10 6/uL) 2.80 L Hgb (11.0 - 15.0 g/dL) 8.5 L Hct (33.0 - 45.0 %) 25.1 L MCV (81.0 - 99.0 fL) 89.6 MCH (27.0 - 33.0 pg) 30.4 MCHC (33.0 - 37.0 g/dL) 33.9 RDW (11.5 - 14.5 %) 14.1 Plt Count (150 - 400 x10 3/uL) 104 L MPV (7.0 - 9.0 fL) 10.7 H Neut % (Auto) (56.0 - 77.0 %) 74.7 Lymph % (Auto) (14.0 - 32.0 %) 17.0 [place] % (Auto) (4.8 - 9.0 %) 5.1 Eos % (Auto) (0.3 - 3.7 %) 2.0 Baso % (Auto) (0.0 - 2.0 %) 0.3 Neut # (Auto) (2.0 - 7.6 x10 3/uL) 7.68 H Lymph # (Auto) (1.0 - 3.8 x10 3/uL) 1.75 [place] # (Auto) (0.1 - 0.8 x10 3/uL) 0.52 Eos # (Auto) (0.0 - 0.2 x10 3/uL) 0.21 H Baso # (Auto) (0.0 - 0.2 x10 3/uL) 0.03 Abs Immat Gran (auto) (0.00 - 0.03 x10 3/uL) 0. 09 H Add Manual Diff NO Immature Gran % (0.0 - 2.0 %) 0.9 Nucleated RBC % (0 - 0 %) 0.2 H Nucleated RBCs # (Man) (0.0 - 0.1 x10 3/uL) 0.0 2 Laboratory Tests 06/19/22 0340: [Embedded Image Not Available] 06/18/22 1600: [Embedded Image Not Available] Radiology data Recent Impressions: RADIOLOGY - XR CHEST 1 V 06/18 0905 Report Impression - Status: SIGNED Entered: 06/18/2022 1028 IMPRESSION: 1. Mild enlarged cardiac silhouette. 2. Faec-ip-ftzvlyke pulmonary edema versus infil trates. 3. Linear left perihilar pulmonary atelectasis, scarring. Decreased lung volumes. 4. Left-sided chest tube with small in the thora x in the left apical chest. Impression By: [email or web address] - Victor Manuel Mcallister M.D. Free Text Obj Notes Free Text Obj Notes: GEN: Elderly female in no acute distress, intera ctive and conversational HEENT: Atraumatic, normocephalic, moist mucous m embranes NECK: Supple, good range of motion, no tendernes s LUNGS: Symmetrical air entry, no acute respirato ry distress CV: S1, S2 irregularly irregular GI: Abdomen is soft, not tender or distended EXT/Musc: LE edema, no cyanosis. Pedal pulses pr esent Skin: Surgical site clean, dry and intact. Warm to touch NEURO: Awake, alert and oriented x3. No facial d jovani or focal deficit Diagnosis, Assessment Plan Free text A P: 67 yo F admitted to CVICU s/p CABG x4(LIN-LAD, SVG-Elisabet, SVG-OM, SVG-PDA) ALAA EVH (RGSV) Posterior pericardiotomy Acute pulm insufficiency following thoracic surg kimberli Diabetes mellitus with hemoglobin A1c 8.3 Acute blood loss anemia from surgery Neuro: keep off sedation, multimodal pain contro l, neurologically at baseline Respiratory: On 2 L nasal cannula wean down as t olerated. Patient has underlying PAULO. We will start her on CPAP. She d oes not know her settings. Start on CPAP at 8, as tolerated, Continue iprat ropium nebs. ABG and chest x- ray reviewed. Cardiovascular: Patient still continues to be hy pertensive. Continue dopamine at 3 mics for now Renal: Patient's creatinine has stabiliz ed at 0.9. Urine output has started to improve. Continue to monitor. Electrolytes are s table. ID: White count slightly high. No fevers. Contin ue to monitor for now GI: Continue bowel regimen. Abdomen is soft. Carolyne erating diet. LFTs stable. Hem: Hemoglobin is stable. Continue to monitor Endo: BG control with insulin gtt per protocol, endocrine consult Misc: PTOT consult, DVT and GI ppx with DAPT and PPI DisPosition is home her will stay with h er 06/19 Appears neuro intact, multimodal pain control Sats well on NC, wean O2, aggressive I-S, CXR re viewed Remains HD stable, A-fib better controlled, on a miodarone drip, hold off on dopamine drip Cr stable, start diuresis, monitor UOP, replete hypomagnesemia, repeat labs Oral diet as tolerated, possible upper GI pathol ogy per speech, consider GI consult No fevers or leukocytosis, no ID issues at this time Hgb appears stable, no evidence of active bleed, CTs removed Blood glucose control with i nsulin drip, transition to SQ insulin per endocrine Encourage PT/OT and out of bed as tolerated, IPR consult DVT and GI prophylaxis with DAPT and PPI Plan discussed with: patient, family, new home sales consultant s, nurse, interdisc care team Critical care time: Minutes: 37 Electronically Signed by Armand Goff MD on 05/25 12/16 at 1517 RPT #:[id number] END OF REPORT 2022-06-18 17:32:00-00:00 [facility] ([facility]) Critical Care Progress Note REPORT#:[id number] REPORT STATUS: Signed DATE:06/18/22 TIME: 1731 PATIENT: KALA TURPIN UNIT #: [id number] ROOM/BED: [place] [id number] : 57 AGE: 67 SEX: F ATTEND: Rosa Murrell MD ADM AUTHOR: Srinivas Berry MD * ALL edits or amendments must be made on the el [employer]/computer document * Subjective Chief complaint: s/p CABG x4(LIN-LAD, SVG-Elisabet, SVG-OM, SVG-PDA) ALAA EVH (RGSV) Posterior pericardiotomy Comments: Interval history- Patient still remains on dopamine. Creatinine is back to baseline. Continue monitor urine output on the dopamine. Objective General VS/I O Last Documented: Result Date Time Pulse Ox 98 06/18 1549 O2 Delivery High flow nasal cannula 06/18 1549 O2 Flow Rate 2 06/18 1549 B/P 134/58 06/18 1530 B/P Mean 90 06/18 1530 Temp 37.1 06/18 1530 Pulse 72 06/18 1530 Resp 13 06/18 1530 FiO2 40 06/16 1748 24 hour I O ending at 0700: 06/18 0700 06/17 1900 Intake Total 1779.00 Output Total 370 450 Balance -370 1329.00 Intake, IV 469.00 Intake, Oral 720 Intake, Oral 290 Supplement Intake, 300 Packed Cells Output, Chest 20 150 Tube Drainage Output, Urine 350 300 Patient 101.2 kg Weight Weight Bed scale Measurement Method PATIENT WEIGHT: Weight (lb): 223 Weight (oz): 1.72 Weight (kg): 101.200 Medications: Active Meds + DC'd Last 24 Hrs Ipratropium [place] (ATROVENT) 500 MCG Q2H PRN P RN INH Cyanocobalamin (Vitamin B-12 500 mcg tab) 500 MC G DAILY PO Ferrous Sulfate (FERROUS SULFATE) 325 MG DAILY P O Insulin Glargine (Lantus/Semglee) 12 UNIT BEDTIM E SUBQ Acetylcysteine (MUCOMYST FOR RT) 200 MG RTQ8H NE B Bisacodyl (DULCOLAX) 10 MG ONCE PRN RECTAL Magnesium Hydroxide (MILK OF MAGNESIA) 30 ML ONC E PRN PO Heparin Sodium (HEPARIN 5000 UNITS/ML) 5,000 UNI T Q12HR SUBQ Dextrose/Water (DEXTROSE 10% IN WATER) 250 ML DIR PRN IV (CKD) Insulin Human Regular (HumuLIN R) 100 UNIT ASDIR IV (CKD) Sodium Chloride (SODIUM CHLORIDE 0.9%) 99 ML Dopamine HCl/Dextrose (DOPamine 400MG/D5W 250ML) 250 ML ASDIR IV Clopidogrel Bisulfate (Plavix) 75 MG DAILY PO Polyethylene Glycol (MIRALAX) 17 GM DAILY PO Pantoprazole (PROTONIX) 40 MG DAILY@0600 PO Docusate Sodium (COLACE) 100 MG BID PO Gabapentin (NEURONTIN) 200 MG BID PO Metoprolol Tartrate (LOPRESSOR) 12.5 MG Q12HR PO Mupirocin (BACTROBAN 2% 22 GM OINTMENT) 1 APPLIC BID NASAL Sennosides (Senna Lax 8.6 MG TABLET) 17.2 MG BED TIME PO Aspirin (ASPIRIN) 81 MG DAILY PO Amiodarone HCl (CORDARONE) 200 MG TID PO Acetaminophen (TYLENOL) 650 MG Q4H PRN PRN PO Acetaminophen (TYLENOL) 650 MG Q4H PRN PRN RECTA L Calcium Chloride (CALCIUM CHLORIDE) 1 GM ASDIR P RN IV Dextrose/Water (DEXTROSE 10% IN WATER) 125 ML DIR PRN IV (CKD) Dextrose/Water (DEXTROSE 10% IN WATER) 250 ML DIR PRN IV (CKD) Epinephrine (ADRENALIN CHLORIDE) 4 MG ASDIR IV Dextrose/Water (DEXTROSE 5% WATER) 246 ML Glucagon (GLUCAGON) 1 MG ASDIR PRN IM Insulin Human Regular (HumuLIN R) 100 UNIT ASDIR IV (CKD) Sodium Chloride (SODIUM CHLORIDE 0.9%) 99 ML Ipratropium [place] (ATROVENT) 500 MCG RTQ4H INH Magnesium Sulfate (MAGNESIUM SULFATE 4GM/SWFI 10 0ML) 100 ML ASDIR PRN IV Magnesium Sulfate (MAGNESIUM SULFATE 2GM/SWFI 50 ML) 50 ML ASDIR PRN IV Magnesium Sulfate/Dextrose (MAGNESIUM SULFATE 1G M/D5W 100ML) 100 ML ASDIR PRN IV Morphine Sulfate (morphine SULFATE) 4 MG Q2H PRN PRN IV (DC) Nitroglycerin/Dextrose (NITROGLYCERIN 50,000MCG/ D5W 250ML) 250 ML ASDIR IV Norepinephrine Bitartrate (NOREPINEPHRINE 8 MG/N S 250 ML) 250 ML TITRATE IV Ondansetron HCl (ZOFRAN) 4 MG Q6H PRN PRN IV Oxycodone HCl (ROXICODONE) 5 MG Q4H PRN PRN PO Oxycodone HCl (ROXICODONE) 10 MG Q4H PRN PRN PO Potassium Chloride (KCL 20MEQ/SWFI 100ML) 100 ML ASDIR PRN IV Sodium Bicarbonate (SODIUM BICARBONATE) 50 MEQ A SDIR PRN IV Sodium Chloride (SODIUM CHLORIDE 0.9%) 1,000 ML .Q20H IV Sodium Chloride (SODIUM CHLORIDE 0.9%) 250 ML Q2 4H IV Atorvastatin Calcium (LIPITOR) 40 MG 2100 PO Melatonin (Melatonin) 6 MG BEDTIME PO Sodium Chloride (SODIUM CHLORIDE) 20 ML ASDIR IV Acetaminophen (TYLENOL) 650 MG Q4H PRN PRN PO Results Findings/data: Laboratory Tests 06/18 06/18 1601 022 Blood Gas Puncture Site Art Line Art Line O2 Saturation (90 - 100 %) 97.4 94.9 ABG pH (7.35 - 7.45) 7.436 7.317 L ABG pCO2 (35.0 - 45 mmHg) 41.2 54.1 *H ABG pO2 (80 - 100.0 mmHg) 93.6 83.3 ABG HCO3 (22.0 - 26.0 MMOL/L) 27.7 H 27.7 H ABG Total CO2 28.9 29.4 ABG Base Excess (-4.0 - 4.0 MMOL/L) 3.5 1.6 ABG Hematocrit (33.0 - 45.0 %) 24 L 25 L ABG Hemoglobin (11.0 - 15.0 G/DL) 8.1 L 8.5 L Sodium (134 - 147 mmol/L) 140 140 Potassium (3.4 - 5.0 mmol/L) 4.1 4.2 Chloride (100 - 108 mmol/L) 104 106 Ionized Calcium (1.12 - 1.32 MMOL/L) 1.34 H 1.3 5 H Lactic Acid (0.9 - 1.7 mmol/l) 0.8 L 0.8 L Temperature (F) 99 O2 Delivery Device Cannula HFNC Laboratory Tests 06/18 06/18 06/18 06/18 06/18 1601 1600 1545 1148 0747 Chemistry Sodium (134 - 147 mEq/L) 141 Potassium (3.4 - 5.0 mEq/L) 4.2 Chloride (100 - 108 mEq/L) 110 H Carbon Dioxide (21 - 33 mEq/l) 26 Anion Gap (0 - 20) 9 BUN (7 - 18 mg/dL) 23 H Creatinine (0.6 - 1.3 mg/dL) 0.9 POC Creatinine (0.6 - 1.0 mg/dL) 0.6 Glomerular Filtr Rate (80 - 90) 71.0 L Glucose (70 - 110 mg/dL) 184 H POC Glucose (70 - 110 MG/DL) 163 H 152 H 193 H POC Glucose (mg/dL) (70 - 110 MG/DL) 175 H Calcium (8.0 - 10.5 mg/dL) 8.9 06/18 Chemistry Sodium (134 - 147 mEq/L) 141 Potassium (3.4 - 5.0 mEq/L) 4.4 Chloride (100 - 108 mEq/L) 111 H Carbon Dioxide (21 - 33 mEq/l) 26 Anion Gap (0 - 20) 9 BUN (7 - 18 mg/dL) 19 H Creatinine (0.6 - 1.3 mg/dL) 1.0 POC Creatinine (0.6 - 1.0 mg/dL) 1.0 Glomerular Filtr Rate (80 - 90) 62.5 L Glucose (70 - 110 mg/dL) 203 H POC Glucose (70 - 110 MG/DL) 176 H 156 H 155 H POC Glucose (mg/dL) (70 - 110 MG/DL) 206 H Calcium (8.0 - 10.5 mg/dL) 8.8 Magnesium (1.80 - 2.40 mg/dL) 2.21 Total Bilirubin (0.0 - 1.0 mg/dL) 1.00 Direct Bilirubin (0.0 - 0.30 MG/DL) 0.50 H Indirect Bilirubin (MG/DL) 0.50 AST (15 - 37 IUnit/L) 55 H ALT (30 - 65 IUnit/L) 13 L Total Alk Phosphatase (20 - 125 59 IUnit/L) Total Protein (6.4 - 8.2 g/dL) 5.8 L Albumin (3.4 - 5.0 g/dL) 3.40 TSH (0.42 - 5.47) 0.38 L Free T4 (0.77 - 1.61 ng/dL) 1.2 Laboratory Tests 06/18 225 Hematology WBC (4.5 - 11.0 x10 3/uL) 14.2 H RBC (3.54 - 5.02 x10 6/uL) 2.96 L Hgb (11.0 - 15.0 g/dL) 9.0 L Hct (33.0 - 45.0 %) 26.9 L MCV (81.0 - 99.0 fL) 90.9 MCH (27.0 - 33.0 pg) 30.4 MCHC (33.0 - 37.0 g/dL) 33.5 RDW (11.5 - 14.5 %) 14.7 H Plt Count (150 - 400 x10 3/uL) 90 L MPV (7.0 - 9.0 fL) 10.9 H Neut % (Auto) (56.0 - 77.0 %) 80.1 H Lymph % (Auto) (14.0 - 32.0 %) 12.5 L [place] % (Auto) (4.8 - 9.0 %) 6.3 Eos % (Auto) (0.3 - 3.7 %) 0.2 L Baso % (Auto) (0.0 - 2.0 %) 0.2 Neut # (Auto) (2.0 - 7.6 x10 3/uL) 11.34 H Lymph # (Auto) (1.0 - 3.8 x10 3/uL) 1.77 [place] # (Auto) (0.1 - 0.8 x10 3/uL) 0.89 H Eos # (Auto) (0.0 - 0.2 x10 3/uL) 0.03 Baso # (Auto) (0.0 - 0.2 x10 3/uL) 0.03 Abs Immat Gran (auto) (0.00 - 0.03 x10 3/uL) 0. 10 H Add Manual Diff NO Immature Gran % (0.0 - 2.0 %) 0.7 Nucleated RBC % (0 - 0 %) 0.1 H Nucleated RBCs # (Man) (0.0 - 0.1 x10 3/uL) 0.0 2 Laboratory Tests 06/18/22 1600: [Embedded Image Not Available] 06/18/22 0226: [Embedded Image Not Available] Microbiology: 06/15 1800 NASAL: MSSA Surveillance Screen - COM P 06/15 1800 NASAL: MRSA DNA Surveillance Screen - COMP Radiology data Recent Impressions: RADIOLOGY - XR CHEST 1 V 06/18 0905 Report Impression - Status: SIGNED Entered: 06/18/2022 1028 IMPRESSION: 1. Mild enlarged cardiac silhouette. 2. Favv-hb-wledwixv pulmonary edema versus infil trates. 3. Linear left perihilar pulmonary atelectasis, scarring. Decreased lung volumes. 4. Left-sided chest tube with small in the thora x in the left apical chest. Impression By: [email or web address] - Victor Manuel Mcallister M.D. Free Text Obj Notes Free Text Obj Notes: GEN: female in no acute distress, interactive an d conversational HEENT: Atraumatic, normocephalic, moist mucous m embranes NECK: Supple, good range of motion, no tendernes s LUNGS: Symmetrical air entry, no acute respirato ry distress CV: S1, S2 regular rate and rhythm GI: Abdomen is soft, not tender or distended EXT/Musc: No edema or cyanosis. Pedal pulses pre sent Skin: Surgical site clean, dry and intact. Warm to touch NEURO: Awake, alert and oriented x3. No facial d jovani or focal deficit Treatment Prophylaxis Treatment Prophylaxis Drain(s)/tube(s): Drain(s)/tube(s): chest Diagnosis, Assessment Plan Free text A P: 67 yo F admitted to CVICU s/p CABG x4(LIN-LAD, SVG-Elisabet, SVG-OM, SVG-PDA) ALAA EVH (RGSV) Posterior pericardiotomy Acute pulm insufficiency following thoracic surg kimberli Diabetes mellitus with hemoglobin A1c 8.3 Acute blood loss anemia from surgery Neuro: keep off sedation, multimodal pain contro l, neurologically at baseline Respiratory: On 2 L nasal cannula wean down as t olerated. Patient has underlying PAULO. We will start her on CPAP. She d oes not know her settings. Start on CPAP at 8, as tolerated, Continue iprat ropium nebs. ABG and chest x- ray reviewed. Cardiovascular: Patient still continues to be hy pertensive. Continue dopamine at 3 mics for now Renal: Patient's creatinine has stabiliz ed at 0.9. Urine output has started to improve. Continue to monitor. Electrolytes are s table. ID: White count slightly high. No fevers. Contin ue to monitor for now GI: Continue bowel regimen. Abdomen is soft. Carolyne erating diet. LFTs stable. Hem: Hemoglobin is stable. Continue to monitor Endo: BG control with insulin gtt per protocol, endocrine consult Misc: PTOT consult, DVT and GI ppx with DAPT and PPI DisPosition is home her will stay with h er Total critical care time 44 minutes spent treati ng the patient excluding any procedures performed Electronically Signed by Srinivas Berry MD on 0 06/18/22 at 1736 RPT #:[id number] END OF REPORT 2022-06-18 17:23:00-00:00 [facility] ([facility] Endocrinology Progress Note REPORT#:[id number] REPORT STATUS: Signed DATE:06/18/22 TIME: 1723 PATIENT: KALA TURPIN UNIT #: [id number] ROOM/BED: [place] [id number] : [birth year] AGE: 67 SEX: F ATTEND: Rosa Murrell MD ADM AUTHOR: Jurgen Wolf MD * ALL edits or amendments must be made on the [employer]/computer document * Subjective Patient reports: no complaints Objective General VS: Last Documented: Result Date Time Pulse Ox 98 06/18 1549 O2 Delivery High flow nasal cannula 06/18 1549 O2 Flow Rate 2 06/18 1549 B/P 134/58 06/18 1530 B/P Mean 90 06/18 1530 Temp 37.1 06/18 1530 Pulse 72 06/18 1530 Resp 13 06/18 1530 FiO2 40 06/16 1748 PATIENT WEIGHT: Weight (lb): 223 Weight (oz): 1.72 Weight (kg): 101.200 Medications: Active Meds + DC'd Last 24 Hrs Ipratropium [place] (ATROVENT) 500 MCG Q2H PRN P RN INH Cyanocobalamin (Vitamin B-12 500 mcg tab) 500 MC G DAILY PO Ferrous Sulfate (FERROUS SULFATE) 325 MG DAILY P O Acetylcysteine (MUCOMYST FOR RT) 200 MG RTQ8H NE B Bisacodyl (DULCOLAX) 10 MG ONCE PRN RECTAL Magnesium Hydroxide (MILK OF MAGNESIA) 30 ML ONC E PRN PO Heparin Sodium (HEPARIN 5000 UNITS/ML) 5,000 UNI T Q12HR SUBQ Dextrose/Water (DEXTROSE 10% IN WATER) 250 ML DIR PRN IV (CKD) Insulin Human Regular (HumuLIN R) 100 UNIT ASDIR IV (CKD) Sodium Chloride (SODIUM CHLORIDE 0.9%) 99 ML Dopamine HCl/Dextrose (DOPamine 400MG/D5W 250ML) 250 ML ASDIR IV Clopidogrel Bisulfate (Plavix) 75 MG DAILY PO Polyethylene Glycol (MIRALAX) 17 GM DAILY PO Pantoprazole (PROTONIX) 40 MG DAILY@0600 PO Docusate Sodium (COLACE) 100 MG BID PO Gabapentin (NEURONTIN) 200 MG BID PO Metoprolol Tartrate (LOPRESSOR) 12.5 MG Q12HR PO Mupirocin (BACTROBAN 2% 22 GM OINTMENT) 1 APPLIC BID NASAL Sennosides (Senna Lax 8.6 MG TABLET) 17.2 MG BED TIME PO Aspirin (ASPIRIN) 81 MG DAILY PO Amiodarone HCl (CORDARONE) 200 MG TID PO Acetaminophen (TYLENOL) 650 MG Q4H PRN PRN PO Acetaminophen (TYLENOL) 650 MG Q4H PRN PRN RECTA L Calcium Chloride (CALCIUM CHLORIDE) 1 GM ASDIR P RN IV Dextrose/Water (DEXTROSE 10% IN WATER) 125 ML DIR PRN IV (CKD) Dextrose/Water (DEXTROSE 10% IN WATER) 250 ML DIR PRN IV (CKD) Epinephrine (ADRENALIN CHLORIDE) 4 MG ASDIR IV Dextrose/Water (DEXTROSE 5% WATER) 246 ML Glucagon (GLUCAGON) 1 MG ASDIR PRN IM Insulin Human Regular (HumuLIN R) 100 UNIT ASDIR IV (CKD) Sodium Chloride (SODIUM CHLORIDE 0.9%) 99 ML Ipratropium [place] (ATROVENT) 500 MCG RTQ4H INH Magnesium Sulfate (MAGNESIUM SULFATE 4GM/SWFI 10 0ML) 100 ML ASDIR PRN IV Magnesium Sulfate (MAGNESIUM SULFATE 2GM/SWFI 50 ML) 50 ML ASDIR PRN IV Magnesium Sulfate/Dextrose (MAGNESIUM SULFATE 1G M/D5W 100ML) 100 ML ASDIR PRN IV Morphine Sulfate (morphine SULFATE) 4 MG Q2H PRN PRN IV (DC) Nitroglycerin/Dextrose (NITROGLYCERIN 50,000MCG/ D5W 250ML) 250 ML ASDIR IV Norepinephrine Bitartrate (NOREPINEPHRINE 8 MG/N S 250 ML) 250 ML TITRATE IV Ondansetron HCl (ZOFRAN) 4 MG Q6H PRN PRN IV Oxycodone HCl (ROXICODONE) 5 MG Q4H PRN PRN PO Oxycodone HCl (ROXICODONE) 10 MG Q4H PRN PRN PO Potassium Chloride (KCL 20MEQ/SWFI 100ML) 100 ML ASDIR PRN IV Sodium Bicarbonate (SODIUM BICARBONATE) 50 MEQ A SDIR PRN IV Sodium Chloride (SODIUM CHLORIDE 0.9%) 1,000 ML .Q20H IV Sodium Chloride (SODIUM CHLORIDE 0.9%) 250 ML Q2 4H IV Atorvastatin Calcium (LIPITOR) 40 MG 2100 PO Melatonin (Melatonin) 6 MG BEDTIME PO Sodium Chloride (SODIUM CHLORIDE) 20 ML ASDIR IV Acetaminophen (TYLENOL) 650 MG Q4H PRN PRN PO Physical Exam General appearance: alert, awake Treatment Prophylaxis Treatment Prophylaxis Drain(s)/tube(s): Drain(s)/tube(s): chest Diagnosis, Assessment Plan Hospital course to date: Laboratory Tests: 06/18 06/18 06/18 06/18 06/18 1601 1600 1545 1148 0747 Blood Gas Puncture Site Art Line O2 Saturation (90 - 100 %) 97.4 ABG pH (7.35 - 7.45) 7.436 ABG pCO2 (35.0 - 45 mmHg) 41.2 ABG pO2 (80 - 100.0 mmHg) 93.6 ABG HCO3 (22.0 - 26.0 MMOL/L) 27.7 H ABG Total CO2 28.9 ABG Base Excess (-4.0 - 4.0 MMOL/L) 3.5 ABG Hematocrit (33.0 - 45.0 %) 24 L ABG Hemoglobin (11.0 - 15.0 G/DL) 8.1 L Sodium (134 - 147 mmol/L) 140 Potassium (3.4 - 5.0 mmol/L) 4.1 Chloride (100 - 108 mmol/L) 104 Ionized Calcium (1.12 - 1.32 MMOL/L) 1.34 H Lactic Acid (0.9 - 1.7 mmol/l) 0.8 L Temperature (F) 99 O2 Delivery Device Cannula Chemistry Sodium (134 - 147 mEq/L) 141 Potassium (3.4 - 5.0 mEq/L) 4.2 Chloride (100 - 108 mEq/L) 110 H Carbon Dioxide (21 - 33 mEq/l) 26 Anion Gap (0 - 20) 9 BUN (7 - 18 mg/dL) 23 H Creatinine (0.6 - 1.3 mg/dL) 0.9 POC Creatinine (0.6 - 1.0 mg/dL) 0.6 Glomerular Filtr Rate (80 - 90) 71.0 L Glucose (70 - 110 mg/dL) 184 H POC Glucose (70 - 110 MG/DL) 163 H 152 H 193 H POC Glucose (mg/dL) (70 - 110 MG/DL) 175 H Calcium (8.0 - 10.5 mg/dL) 8.9 06/18 Blood Gas Puncture Site Art Line O2 Saturation (90 - 100 %) 94.9 ABG pH (7.35 - 7.45) 7.317 L ABG pCO2 (35.0 - 45 mmHg) 54.1 *H ABG pO2 (80 - 100.0 mmHg) 83.3 ABG HCO3 (22.0 - 26.0 MMOL/L) 27.7 H ABG Total CO2 29.4 ABG Base Excess (-4.0 - 4.0 MMOL/L) 1.6 ABG Hematocrit (33.0 - 45.0 %) 25 L ABG Hemoglobin (11.0 - 15.0 G/DL) 8.5 L Sodium (134 - 147 mmol/L) 140 Potassium (3.4 - 5.0 mmol/L) 4.2 Chloride (100 - 108 mmol/L) 106 Ionized Calcium (1.12 - 1.32 MMOL/L) 1.35 H Lactic Acid (0.9 - 1.7 mmol/l) 0.8 L O2 Delivery Device HFNC Chemistry Sodium (134 - 147 mEq/L) 141 Potassium (3.4 - 5.0 mEq/L) 4.4 Chloride (100 - 108 mEq/L) 111 H Carbon Dioxide (21 - 33 mEq/l) 26 Anion Gap (0 - 20) 9 BUN (7 - 18 mg/dL) 19 H Creatinine (0.6 - 1.3 mg/dL) 1.0 POC Creatinine (0.6 - 1.0 mg/dL) 1.0 Glomerular Filtr Rate (80 - 90) 62.5 L Glucose (70 - 110 mg/dL) 203 H POC Glucose (70 - 110 MG/DL) 176 H 156 H 155 H POC Glucose (mg/dL) (70 - 110 MG/DL) 206 H Calcium (8.0 - 10.5 mg/dL) 8.8 Magnesium (1.80 - 2.40 mg/dL) 2.21 Total Bilirubin (0.0 - 1.0 mg/dL) 1.00 Direct Bilirubin (0.0 - 0.30 MG/DL) 0.50 H Indirect Bilirubin (MG/DL) 0.50 AST (15 - 37 IUnit/L) 55 H ALT (30 - 65 IUnit/L) 13 L Total Alk Phosphatase (20 - 125 IUnit/L) 59 Total Protein (6.4 - 8.2 g/dL) 5.8 L Albumin (3.4 - 5.0 g/dL) 3.40 TSH (0.42 - 5.47) 0.38 L Free T4 (0.77 - 1.61 ng/dL) 1.2 Hematology WBC (4.5 - 11.0 x10 3/uL) 14.2 H RBC (3.54 - 5.02 x10 6/uL) 2.96 L Hgb (11.0 - 15.0 g/dL) 9.0 L Hct (33.0 - 45.0 %) 26.9 L MCV (81.0 - 99.0 fL) 90.9 MCH (27.0 - 33.0 pg) 30.4 MCHC (33.0 - 37.0 g/dL) 33.5 RDW (11.5 - 14.5 %) 14.7 H Plt Count (150 - 400 x10 3/uL) 90 L MPV (7.0 - 9.0 fL) 10.9 H Neut % (Auto) (56.0 - 77.0 %) 80.1 H Lymph % (Auto) (14.0 - 32.0 %) 12.5 L [place] % (Auto) (4.8 - 9.0 %) 6.3 Eos % (Auto) (0.3 - 3.7 %) 0.2 L Baso % (Auto) (0.0 - 2.0 %) 0.2 Neut # (Auto) (2.0 - 7.6 x10 3/uL) 11.34 H Lymph # (Auto) (1.0 - 3.8 x10 3/uL) 1.77 [place] # (Auto) (0.1 - 0.8 x10 3/uL) 0.89 H Eos # (Auto) (0.0 - 0.2 x10 3/uL) 0.03 Baso # (Auto) (0.0 - 0.2 x10 3/uL) 0.03 Abs Immat Gran (auto) (0.00 - 0.03 0.10 H x10 3/uL) Add Manual Diff NO Immature Gran % (0.0 - 2.0 %) 0.7 Nucleated RBC % (0 - 0 %) 0.1 H Nucleated RBCs # (Man) (0.0 - 0.1 0.02 x10 3/uL) Recent Impressions: RADIOLOGY - XR CHEST 1 V 06/18 0905 Report Impression - Status: SIGNED Entered: 06/18/2022 1028 IMPRESSION: 1. Mild enlarged cardiac silhouette. 2. Uxlz-kk-[id number] pulmonary edema versus infil trates. 3. Linear left perihilar pulmonary atelectasis, scarring. Decreased lung volumes. 4. Left-sided chest tube with small in the thora x in the left apical chest. Impression By: [email or web address] - Victor Manuel Mcallister M.D. 1. Diabetes mellitus type 2 uncontrolled with co mplications. 2. Multivessel coronary artery disease. 3. Status post CABG 4. Hypertension 5. Hyperlipidemia 6. Obesity Blood sugar 203-152 mg/dL. HbA1c 8.3%. Adjust insulin drip settings and start on Lantus at bedtime. Electronically Signed by Jurgen Wolf MD on at 1725 RPT #:[id number] END OF REPORT 2022-06-18 14:16:00-00:00 [facility] REPORT#:[id number] REPORT STATUS: Signed DATE:06/18/22 TIME: 1416 PATIENT: KALA TURPIN UNIT #: [id number] ROOM/BED: [place] [id number] : 57 AGE: 67 SEX: F ATTEND: Rosa Murrell MD ADM AUTHOR: Lou Mendez MD * ALL edits or amendments must be made on the [employer]/computer document * Subjective Chief complaint: Presented at [facility] with chest pain , at this time Objective General VS/I O: 24 hour I O ending at 0700: 06/18 0700 06/17 1900 Intake Total 1779.00 Output Total 370 450 Balance -370 1329.00 Intake, IV 469.00 Intake, Oral 720 Intake, Oral 290 Supplement Intake, 300 Packed Cells Output, Chest 20 150 Tube Drainage Output, Urine 350 300 Patient 101.2 kg Weight Weight Bed scale Measurement Method Vital Signs: Date Time Temp Pulse Resp B/P B/P Pulse O2 O2 F low FiO2 Mean Ox Delivery Rate 06/18 1330 116/58 83 06/18 1330 99.1 70 12 117/39 59 98 06/18 1315 117/56 80 06/18 1315 99.1 71 14 118/40 60 97 06/18 1300 116/57 82 06/18 1300 99.1 70 18 115/40 58 98 06/18 1246 118/56 81 06/18 1246 99.1 70 11 108/37 54 98 06/18 1230 136/62 89 06/18 1230 99.1 78 17 134/46 69 97 06/18 1216 132/62 89 06/18 1216 99.1 78 22 125/50 72 98 06/18 1201 148/67 96 06/18 1201 99.1 76 12 153/53 80 97 06/18 1145 115/58 84 06/18 1145 99.1 71 11 105/39 57 98 06/18 1131 127/56 81 06/18 1131 99.3 76 13 120/46 68 97 06/18 1116 147/63 90 06/18 1116 99.3 76 21 134/49 71 97 06/18 1116 98 High flow 2 nasal cannula 06/18 1101 113/55 75 06/18 1101 99.3 80 16 103/42 60 97 06/18 1045 117/57 82 06/18 1045 99.3 71 11 102/37 54 97 06/18 1030 124/58 84 06/18 1030 99.5 75 14 122/41 61 98 06/18 1015 143/63 90 03/26 1015 99.5 77 10 123/69 82 97 03/26 1009 145/66 95 03/26 1009 99.5 80 22 134/50 72 96 03/26 0953 79 30 95/46 66 67 03/26 0947 77 16 147/62 89 98 03/26 0944 78 30 88/42 60 96 03/26 0940 79 16 149/63 91 97 03/26 0930 114/57 82 03/26 0930 99.9 79 19 102/39 59 97 03/26 0915 140/62 89 03/26 0915 99.9 78 11 151/51 77 96 03/26 0900 119/57 82 03/26 0900 99.9 79 17 124/45 65 97 03/26 0845 128/63 90 03/ 0845 99.9 75 12 134/44 66 98 03/ 0834 97 High flow 2 nasal cannula 03/ 0830 128/59 85 03/26 0830 99.9 75 13 131/47 67 97 03/26 0815 133/61 88 03/26 0815 100.0 80 13 154/51 75 97 03/26 0813 97 High flow 2 nasal cannula / 0800 Nasal 3 cannula / 0800 126/62 89 03/26 0800 100.0 80 16 134/48 71 97 03/26 0745 125/57 82 03/26 0745 100.2 77 22 101/44 60 97 03/26 0730 130/60 86 03/26 0730 100.4 75 12 133/42 63 98 03/26 0715 149/65 93 03/26 0715 100.4 79 16 158/50 77 97 03/26 0710 150/65 94 03/26 0710 100.4 77 15 170/59 88 97 03/26 0600 100.2 79 14 122/45 66 97 03/26 0500 100.2 79 15 145/45 69 97 03/26 0400 100.2 79 14 125/44 65 97 03/26 0325 98 Nasal 2 cannula 03/ 0300 100.2 81 12 168/53 82 98 03/26 0200 99.9 78 14 134/46 69 98 03/26 0100 99.7 77 12 142/47 72 98 03/26 0000 99.3 77 12 142/46 70 98 03/25 2300 99.1 80 10 157/55 84 96 03/ 2200 99.1 77 11 134/48 69 98 03/ 2100 99.0 77 11 133/45 65 96 06/18 1999 Nasal cannula 06/18 1999 99.0 79 11 155/49 74 96 03/ 1905 93 Nasal 3 cannula 06/17 1900 98.8 75 11 142/46 67 96 03/ 1830 139/63 90 03/ 1830 98.8 76 11 138/45 66 96 03/ 1815 138/61 88 03/ 1815 98.8 79 18 159/50 74 96 03/ 1800 148/66 95 03/ 1800 98.8 79 11 158/56 81 96 03/ 1745 144/65 94 03/ 1745 98.8 79 19 139/54 76 96 03/ 1730 143/66 95 03/ 1730 98.8 75 11 139/53 75 95 03/ 1716 160/67 96 03/ 1716 98.8 80 20 155/57 82 95 03 1700 128/60 87 03/ 1700 98.8 79 22 132/54 74 96 03/25 1645 125/55 79 03/ 1645 98.8 68 17 95/36 51 92 03/25 1631 144/63 90 03/ 1631 98.8 76 10 146/47 70 95 03/ 1615 122/60 86 03/ 1615 98.8 75 15 141/48 72 92 03/ 1601 140/62 89 03/ 1601 98.8 77 12 141/51 76 91 03/ 1551 100 High flow 2 nasal cannula 06/17 1545 129/58 83 03/25 1545 99.0 70 14 122/43 62 92 03/25 1531 126/56 80 03/ 1531 99.0 71 14 124/45 65 92 03/25 1518 84/47 59 03/25 1518 99.0 54 19 88/31 44 03/25 1500 140/64 92 03/25 1500 98.8 72 23 140/45 67 94 03/25 1445 136/63 90 03/25 1445 98.8 69 26 137/44 65 94 03/25 1430 137/65 93 03/25 1430 99.0 71 24 140/46 69 95 PATIENT WEIGHT: Weight (lb): 223 Weight (oz): 1.72 Weight (kg): 101.200 Medications: Active Meds + DC'd Last 24 Hrs Ipratropium [place] (ATROVENT) 500 MCG Q2H PRN P RN INH Cyanocobalamin (Vitamin B-12 500 mcg tab) 500 M CG DAILY PO Ferrous Sulfate (FERROUS SULFATE) 325 MG DAILY P O Bisacodyl (DULCOLAX) 10 MG ONCE PRN RECTAL Magnesium Hydroxide (MILK OF MAGNESIA) 30 ML ONC E PRN PO Heparin Sodium (HEPARIN 5000 UNITS/ML) 5,000 UNI T Q12HR SUBQ Dextrose/Water (DEXTROSE 10% IN WATER) 250 ML DIR PRN IV (CKD) Insulin Human Regular (HumuLIN R) 100 UNIT ASDIR IV (CKD) Sodium Chloride (SODIUM CHLORIDE 0.9%) 99 ML Dopamine HCl/Dextrose (DOPamine 400MG/D5W 250ML) 250 ML ASDIR IV Clopidogrel Bisulfate (Plavix) 75 MG DAILY PO Polyethylene Glycol (MIRALAX) 17 GM DAILY PO Pantoprazole (PROTONIX) 40 MG DAILY@0600 PO Docusate Sodium (COLACE) 100 MG BID PO Gabapentin (NEURONTIN) 200 MG BID PO Metoprolol Tartrate (LOPRESSOR) 12.5 MG Q12HR PO Mupirocin (BACTROBAN 2% 22 GM OINTMENT) 1 APPLIC BID NASAL Sennosides (Senna Lax 8.6 MG TABLET) 17.2 MG BED TIME PO Aspirin (ASPIRIN) 81 MG DAILY PO Amiodarone HCl (CORDARONE) 200 MG TID PO Acetaminophen (TYLENOL) 650 MG Q4H PRN PRN PO Acetaminophen (TYLENOL) 650 MG Q4H PRN PRN RECTA L Calcium Chloride (CALCIUM CHLORIDE) 1 GM ASDIR P RN IV Dextrose/Water (DEXTROSE 10% IN WATER) 125 ML DIR PRN IV (CKD) Dextrose/Water (DEXTROSE 10% IN WATER) 250 ML DIR PRN IV (CKD) Epinephrine (ADRENALIN CHLORIDE) 4 MG ASDIR IV Dextrose/Water (DEXTROSE 5% WATER) 246 ML Glucagon (GLUCAGON) 1 MG ASDIR PRN IM Insulin Human Regular (HumuLIN R) 100 UNIT ASDIR IV (CKD) Sodium Chloride (SODIUM CHLORIDE 0.9%) 99 ML Ipratropium [place] (ATROVENT) 500 MCG RTQ4H INH Magnesium Sulfate (MAGNESIUM SULFATE 4GM/SWFI 10 0ML) 100 ML ASDIR PRN IV Magnesium Sulfate (MAGNESIUM SULFATE 2GM/SWFI 50 ML) 50 ML ASDIR PRN IV Magnesium Sulfate/Dextrose (MAGNESIUM SULFATE 1G M/D5W 100ML) 100 ML ASDIR PRN IV Morphine Sulfate (morphine SULFATE) 4 MG Q2H PRN PRN IV (DC) Nitroglycerin/Dextrose (NITROGLYCERIN 50,000MCG/ D5W 250ML) 250 ML ASDIR IV Norepinephrine Bitartrate (NOREPINEPHRINE 8 MG/N S 250 ML) 250 ML TITRATE IV Ondansetron HCl (ZOFRAN) 4 MG Q6H PRN PRN IV Oxycodone HCl (ROXICODONE) 5 MG Q4H PRN PRN PO Oxycodone HCl (ROXICODONE) 10 MG Q4H PRN PRN PO Potassium Chloride (KCL 20MEQ/SWFI 100ML) 100 ML ASDIR PRN IV Sodium Bicarbonate (SODIUM BICARBONATE) 50 MEQ ASDIR PRN IV Sodium Chloride (SODIUM CHLORIDE 0.9%) 1,000 ML .Q20H IV Sodium Chloride (SODIUM CHLORIDE 0.9%) 250 ML Q2 4H IV Atorvastatin Calcium (LIPITOR) 40 MG 2100 PO Melatonin (Melatonin) 6 MG BEDTIME PO Sodium Chloride (SODIUM CHLORIDE) 20 ML ASDIR IV Acetaminophen (TYLENOL) 650 MG Q4H PRN PRN PO Physical Exam General appearance: alert, awake, oriented Neck: non-tender, no JVD Cardiovascular: CV assessment: bradycardia Respiratory: clear to auscultation, no distress Abdomen: soft, non-tender, normal bowel sounds, no distention Genitourinary: no flank pain, no urinary cathete r Lower extremity: LE assessment: no calf tenderness, no edema 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, oriented X 3, normal speech Skin: dry, intact, normal color Psychiatry: normal affect, normal judgment/insig ht, normal mood Results Findings/Data: Laboratory Tests 06/18 225 Blood Gas Puncture Site Art Line O2 Saturation (90 - 100 %) 94.9 ABG pH (7.35 - 7.45) 7.317 L ABG pCO2 (35.0 - 45 mmHg) 54.1 *H ABG pO2 (80 - 100.0 mmHg) 83.3 ABG HCO3 (22.0 - 26.0 MMOL/L) 27.7 H ABG Total CO2 29.4 ABG Base Excess (-4.0 - 4.0 MMOL/L) 1.6 ABG Hematocrit (33.0 - 45.0 %) 25 L ABG Hemoglobin (11.0 - 15.0 G/DL) 8.5 L Sodium (134 - 147 mmol/L) 140 Potassium (3.4 - 5.0 mmol/L) 4.2 Chloride (100 - 108 mmol/L) 106 Ionized Calcium (1.12 - 1.32 MMOL/L) 1.35 H Lactic Acid (0.9 - 1.7 mmol/l) 0.8 L O2 Delivery Device [facility] Laboratory Tests 06/18 06/18 06/18 06/18 06/18 1148 0747 0226 0226 0034 Chemistry Sodium (134 - 147 mEq/L) 141 Potassium (3.4 - 5.0 mEq/L) 4.4 Chloride (100 - 108 mEq/L) 111 H Carbon Dioxide (21 - 33 mEq/l) 26 Anion Gap (0 - 20) 9 BUN (7 - 18 mg/dL) 19 H Creatinine (0.6 - 1.3 mg/dL) 1.0 POC Creatinine (0.6 - 1.0 mg/dL) 1.0 Glomerular Filtr Rate (80 - 90) 62.5 L Glucose (70 - 110 mg/dL) 203 H POC Glucose (70 - 110 MG/DL) 152 H 193 H 176 H POC Glucose (mg/dL) (70 - 110 MG/DL) 206 H Calcium (8.0 - 10.5 mg/dL) 8.8 Magnesium (1.80 - 2.40 mg/dL) 2.21 Total Bilirubin (0.0 - 1.0 mg/dL) 1.00 Direct Bilirubin (0.0 - 0.30 MG/DL) 0.50 H Indirect Bilirubin (MG/DL) 0.50 AST (15 - 37 IUnit/L) 55 H ALT (30 - 65 IUnit/L) 13 L Total Alk Phosphatase (20 - 125 IUnit/L) 59 Total Protein (6.4 - 8.2 g/dL) 5.8 L Albumin (3.4 - 5.0 g/dL) 3.40 TSH (0.42 - 5.47) 0.38 L Free T4 (0.77 - 1.61 ng/dL) 1.2 06/17 1800 1601 Chemistry POC Glucose (70 - 110 MG/DL) 156 H 155 H 182 H Laboratory Tests 06/18 225 Hematology WBC (4.5 - 11.0 x10 3/uL) 14.2 H RBC (3.54 - 5.02 x10 6/uL) 2.96 L Hgb (11.0 - 15.0 g/dL) 9.0 L Hct (33.0 - 45.0 %) 26.9 L MCV (81.0 - 99.0 fL) 90.9 MCH (27.0 - 33.0 pg) 30.4 MCHC (33.0 - 37.0 g/dL) 33.5 RDW (11.5 - 14.5 %) 14.7 H Plt Count (150 - 400 x10 3/uL) 90 L MPV (7.0 - 9.0 fL) 10.9 H Neut % (Auto) (56.0 - 77.0 %) 80.1 H Lymph % (Auto) (14.0 - 32.0 %) 12.5 L [place] % (Auto) (4.8 - 9.0 %) 6.3 Eos % (Auto) (0.3 - 3.7 %) 0.2 L Baso % (Auto) (0.0 - 2.0 %) 0.2 Neut # (Auto) (2.0 - 7.6 x10 3/uL) 11.34 H Lymph # (Auto) (1.0 - 3.8 x10 3/uL) 1.77 [place] # (Auto) (0.1 - 0.8 x10 3/uL) 0.89 H Eos # (Auto) (0.0 - 0.2 x10 3/uL) 0.03 Baso # (Auto) (0.0 - 0.2 x10 3/uL) 0.03 Abs Immat Gran (auto) (0.00 - 0.03 x10 3/uL) 0. 10 H Add Manual Diff NO Immature Gran % (0.0 - 2.0 %) 0.7 Nucleated RBC % (0 - 0 %) 0.1 H Nucleated RBCs # (Man) (0.0 - 0.1 x10 3/uL) 0.0 2 Laboratory Tests 06/18 225 Chemistry Magnesium (1.80 - 2.40 mg/dL) 2.21 Radiology data: Recent Impressions: RADIOLOGY - XR CHEST 1 V 06/18 0905 Report Impression - Status: SIGNED Entered: 06/18/2022 1028 IMPRESSION: 1. Mild enlarged cardiac silhouette. 2. Xtcm-ur-tfzdhyxg pulmonary edema versus infil trates. 3. Linear left perihilar pulmonary atelectasis, scarring. Decreased lung volumes. 4. Left-sided chest tube with small in the thora x in the left apical chest. Impression By: [email or web address] - Victor Manuel Mcallister M.D. Results: labs reviewed, vital signs reviewed, vi carlos signs stable Treatment Prophylaxis Treatment Prophylaxis Drain(s)/tube(s): Drain(s)/tube(s): chest Diagnosis, Assessment Plan Free Text DxA P Notes Free Text DxA P Notes: 67-year-old female with [facility] history of CAD, MA, prior PCI/MEG 11 years ago, hypertension, diabetes carlai jared, CVA, peripheral neuropathy, Charcot's foot who presented to with chest pain. She was taken for left heart catheterization where she wa s found to have multivessel CAD with failed attempt to PCI the CUT OFF SAWYER LAD. Patient is transferred to [facility] facility for surgical revascularization. 1. Multivessel CAD CABG today Continue aspirin, beta-xander, statin No active chest pain 2. Hypertension Normotensive Continue losartan and metoprolol 3. Diabetes mellitus Manage per primary team 06/17/22: -CAD -ACB -NL EF -STABLE 06/18/22: S/P CABG x 4 (LIN-LAD, SVG-Elisabet, SVG-OM, SVG-PDA) RAJESH Posterior pericardiotomy ECHO: NL EF WALL MOTION DROP IN H/H , SP 1 UNIT PRBC TRANSFUSION TELE: NSR GOOD URINE OUT PUT STABLE Electronically Signed by Lou Mendez MD on 0 06/18/22 at 1417 RPT #:[id number] END OF REPORT 2022-06-18 11:00:00-00:00 [facility]) Hospitalist Progress Note REPORT#:[id number] REPORT STATUS: Signed DATE:06/18/22 TIME: 1100 PATIENT: KALA TURPIN UNIT #: [id number] ROOM/BED: [place] [id number] : 57 AGE: 67 SEX: F ATTEND: Rosa Murrell MD ADM AUTHOR: Reva Murrell MD * ALL edits or amendments must be made on the el [employer]/computer document * Subjective Chief complaint: s/p 4 vessel CABG. patient extubated. chest tube s just taken out today HPI: This is 67-year-old female with past medical his tory of stroke, hypertension, hyperlipidemia, diabetes (on insulin), obstructi ve sleep apnea, PAD, 2 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 Presented to the emergency room, was evaluated by cardiology and underwent left h eart cath. Coronary angiogram revealed severe multivessel coronary artery dise ase involving LAD which is totally occluded after the m idportion; diagonal OM branch with proximal stenosis 60 to 70%, left 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 Patient transferred to [facility] for surgical revascularization. Objective General VS/I O: Vital Signs: Date Time Temp Pulse Resp B/P B/P Pulse O2 O2 F low FiO2 Mean Ox Delivery Rate 06/18 0953 79 30 95/46 66 67 06/18 0947 77 16 147/62 89 98 06/18 0944 78 30 88/42 60 96 06/18 0940 79 16 149/63 91 97 06/18 0930 114/57 82 06/18 0930 99.9 79 19 102/39 59 97 06/18 0915 140/62 89 06/18 0915 99.9 78 11 151/51 77 96 06/18 0900 119/57 82 06/18 0900 99.9 79 17 124/45 65 97 06/18 0845 128/63 90 06/18 0845 99.9 75 12 134/44 66 98 06/18 0834 97 High flow 2 nasal cannula 06/18 0830 128/59 85 06/18 0830 99.9 75 13 131/47 67 97 06/18 0815 133/61 88 03/26 0815 100.0 80 13 154/51 75 97 03/26 0813 97 High flow 2 nasal cannula 03/ 0800 Nasal 3 cannula / 0800 126/62 89 03/26 0800 100.0 80 16 134/48 71 97 03/26 0745 125/57 82 03/26 0745 100.2 77 22 101/44 60 97 03/26 0730 130/60 86 03/26 0730 100.4 75 12 133/42 63 98 03/26 0715 149/65 93 03/26 0715 100.4 79 16 158/50 77 97 03/26 0710 150/65 94 03/26 0710 100.4 77 15 170/59 88 97 03/26 0600 100.2 79 14 122/45 66 97 03/ 0500 100.2 79 15 145/45 69 97 03/ 0400 100.2 79 14 125/44 65 97 03/ 0325 98 Nasal 2 cannula 03/ 0300 100.2 81 12 168/53 82 98 03/ 0200 99.9 78 14 134/46 69 98 03/ 0100 99.7 77 12 142/47 72 98 03/ 0000 99.3 77 12 142/46 70 98 03/ 2300 99.1 80 10 157/55 84 96 03/ 2200 99.1 77 11 134/48 69 98 / 2100 99.0 77 11 133/45 65 96 06/17 2000 Nasal cannula 06/18 1999 99.0 79 11 155/49 74 96 03/ 1905 93 Nasal 3 cannula 06/17 1900 98.8 75 11 142/46 67 96 03/ 1830 139/63 90 03/ 1830 98.8 76 11 138/45 66 96 / 1815 138/61 88 03/ 1815 98.8 79 18 159/50 74 96 03/25 1800 148/66 95 03/25 1800 98.8 79 11 158/56 81 96 03/25 1745 144/65 94 03/25 1745 98.8 79 19 139/54 76 96 03/25 1730 143/66 95 03/25 1730 98.8 75 11 139/53 75 95 03/25 1716 160/67 96 03/25 1716 98.8 80 20 155/57 82 95 03/25 1700 128/60 87 03/25 1700 98.8 79 22 132/54 74 96 03/25 1645 125/55 79 03/25 1645 98.8 68 17 95/36 51 92 03/25 1631 144/63 90 03/25 1631 98.8 76 10 146/47 70 95 03/25 1615 122/60 86 03/25 1615 98.8 75 15 141/48 72 92 03/25 1601 140/62 89 03/25 1601 98.8 77 12 141/51 76 91 03/25 1551 100 High flow 2 nasal cannula 03/25 1545 129/58 83 03/25 1545 99.0 70 14 122/43 62 92 03/25 1531 126/56 80 03/25 1531 99.0 71 14 124/45 65 92 03/25 1518 84/47 59 03/25 1518 99.0 54 19 88/31 44 03/25 1500 140/64 92 03/25 1500 98.8 72 23 140/45 67 94 03/25 1445 136/63 90 03/25 1445 98.8 69 26 137/44 65 94 03/25 1430 137/65 93 03/25 1430 99.0 71 24 140/46 69 95 03/25 1415 147/67 96 03/25 1415 99.0 70 9 151/48 72 97 03/25 1400 136/61 88 03/25 1400 99.0 69 14 142/47 69 97 03/25 1345 120/56 81 03/25 1345 99.0 63 10 111/40 58 98 03/25 1330 122/58 83 03/25 1330 99.0 67 9 122/41 60 96 03/25 1315 116/56 81 03/25 1315 99.0 66 8 121/41 60 96 03/25 1300 118/59 80 03/25 1300 99.0 70 13 132/46 66 97 03/25 1245 116/55 79 03/25 1245 99.0 71 9 132/45 66 97 03/25 1230 103/64 76 03/25 1230 99.0 67 12 84/41 55 97 03/25 1215 117/68 87 03/25 1215 98.8 74 17 134/48 70 97 03/25 1201 99 High flow 2 nasal cannula 03/25 1200 118/58 83 03/25 1200 98.8 71 16 116/46 65 98 06/17 1151 114/55 79 06/17 1151 98.8 68 10 129/45 65 97 06/17 1131 115/58 83 06/17 1131 98.8 68 10 136/48 70 97 06/17 1115 106/56 77 06/17 1115 98.6 66 9 130/45 66 97 06/17 1101 114/57 82 06/17 1101 98.8 66 10 127/45 64 98 24 hour I O ending at 0700: 06/18 0700 06/17 1900 Intake Total 1779.00 Output Total 370 450 Balance -370 1329.00 Intake, IV 469.00 Intake, Oral 720 Intake, Oral 290 Supplement Intake, 300 Packed Cells Output, Chest 20 150 Tube Drainage Output, Urine 350 300 Patient 223 lb Weight Weight Bed scale Measurement Method PATIENT WEIGHT: Weight (lb): 223 Weight (oz): 1.72 Weight (kg): 101.200 Medications: Active Meds + DC'd Last 24 Hrs Ipratropium [place] (ATROVENT) 500 MCG Q2H PRN P RN INH Cyanocobalamin (Vitamin B-12 500 mcg tab) 500 MC G DAILY PO Ferrous Sulfate (FERROUS SULFATE) 325 MG DAILY P O Bisacodyl (DULCOLAX) 10 MG ONCE PRN RECTAL Magnesium Hydroxide (MILK OF MAGNESIA) 30 ML ONC E PRN PO Heparin Sodium (HEPARIN 5000 UNITS/ML) 5,000 UNI T Q12HR SUBQ Dextrose/Water (DEXTROSE 10% IN WATER) 250 ML DIR PRN IV (CKD) Insulin Human Regular (HumuLIN R) 100 UNIT ASDIR IV (CKD) Sodium Chloride (SODIUM CHLORIDE 0.9%) 99 ML Dopamine HCl/Dextrose (DOPamine 400MG/D5W 250ML) 250 ML ASDIR IV Clopidogrel Bisulfate (Plavix) 75 MG DAILY PO Polyethylene Glycol (MIRALAX) 17 GM DAILY PO Pantoprazole (PROTONIX) 40 MG DAILY@0600 PO Docusate Sodium (COLACE) 100 MG BID PO Gabapentin (NEURONTIN) 200 MG BID PO Metoprolol Tartrate (LOPRESSOR) 12.5 MG Q12HR PO Mupirocin (BACTROBAN 2% 22 GM OINTMENT) 1 APPLIC BID NASAL Sennosides (Senna Lax 8.6 MG TABLET) 17.2 MG BED TIME PO Aspirin (ASPIRIN) 81 MG DAILY PO Amiodarone HCl (CORDARONE) 200 MG TID PO Acetaminophen (TYLENOL) 650 MG Q4H PRN PRN PO Acetaminophen (TYLENOL) 650 MG Q4H PRN PRN RECTA L Albumin Human (ALBUMINAR 25%) 25 GM ASDIR PRN IV (DC) Calcium Chloride (CALCIUM CHLORIDE) 1 GM ASDIR P RN IV Dextrose/Water (DEXTROSE 10% IN WATER) 125 ML A SDIR PRN IV (CKD) Dextrose/Water (DEXTROSE 10% IN WATER) 250 ML DIR PRN IV (CKD) Epinephrine (ADRENALIN CHLORIDE) 4 MG ASDIR IV Dextrose/Water (DEXTROSE 5% WATER) 246 ML Glucagon (GLUCAGON) 1 MG ASDIR PRN IM Insulin Human Regular (HumuLIN R) 100 UNIT ASDIR IV (CKD) Sodium Chloride (SODIUM CHLORIDE 0.9%) 99 ML Ipratropium [place] (ATROVENT) 500 MCG RTQ4H INH Magnesium Sulfate (MAGNESIUM SULFATE 4GM/SWFI 10 0ML) 100 ML ASDIR PRN IV Magnesium Sulfate (MAGNESIUM SULFATE 2GM/SWFI 50 ML) 50 ML ASDIR PRN IV Magnesium Sulfate/Dextrose (MAGNESIUM SULFATE 1G M/D5W 100ML) 100 ML ASDIR PRN IV Morphine Sulfate (morphine SULFATE) 4 MG Q2H PRN PRN IV Nitroglycerin/Dextrose (NITROGLYCERIN 50,000MCG/ D5W 250ML) 250 ML ASDIR IV Norepinephrine Bitartrate (NOREPINEPHRINE 8 MG/N S 250 ML) 250 ML TITRATE IV Ondansetron HCl (ZOFRAN) 4 MG Q6H PRN PRN IV Oxycodone HCl (ROXICODONE) 5 MG Q4H PRN PRN PO Oxycodone HCl (ROXICODONE) 10 MG Q4H PRN PRN PO Potassium Chloride (KCL 20MEQ/SWFI 100ML) 100 ML ASDIR PRN IV Sodium Bicarbonate (SODIUM BICARBONATE) 50 MEQ A SDIR PRN IV Sodium Chloride (SODIUM CHLORIDE 0.9%) 1,000 ML .Q20H IV Sodium Chloride (SODIUM CHLORIDE 0.9%) 250 ML Q2 4H IV Atorvastatin Calcium (LIPITOR) 40 MG 2100 PO Melatonin (Melatonin) 6 MG BEDTIME PO Sodium Chloride (SODIUM CHLORIDE) 20 ML ASDIR IV Acetaminophen (TYLENOL) 650 MG Q4H PRN PRN PO Physical Exam General appearance: no acute distress Head/Eyes: atraumatic, clear cornea, EOMI, PERRL A Neck: supple/no meningismus Cardiovascular: normal heart sounds, reg ular rate rhythm, no gallop, no murmur , no rub Respiratory: aerating well, clear to auscultatio n Abdomen: non-tender, normal bowel sounds, soft, no distention Extremities: no clubbing, no cyanosis, no edema Musculoskeletal: normal inspection, painless ran ge of motion 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, oriented X 3, CNII-XII intact Skin: dry, intact Results Findings/Data: Laboratory Tests 06/18 225 Blood Gas Puncture Site Art Line O2 Saturation (90 - 100 %) 94.9 ABG pH (7.35 - 7.45) 7.317 L ABG pCO2 (35.0 - 45 mmHg) 54.1 *H ABG pO2 (80 - 100.0 mmHg) 83.3 ABG HCO3 (22.0 - 26.0 MMOL/L) 27.7 H ABG Total CO2 29.4 ABG Base Excess (-4.0 - 4.0 MMOL/L) 1.6 ABG Hematocrit (33.0 - 45.0 %) 25 L ABG Hemoglobin (11.0 - 15.0 G/DL) 8.5 L Sodium (134 - 147 mmol/L) 140 Potassium (3.4 - 5.0 mmol/L) 4.2 Chloride (100 - 108 mmol/L) 106 Ionized Calcium (1.12 - 1.32 MMOL/L) 1.35 H Lactic Acid (0.9 - 1.7 mmol/l) 0.8 L O2 Delivery Device [facility] Laboratory Tests 06/18 06/18 06/18 06/18 06/17 0747 0226 225 33 2017 Chemistry Sodium (134 - 147 mEq/L) 141 Potassium (3.4 - 5.0 mEq/L) 4.4 Chloride (100 - 108 mEq/L) 111 H Carbon Dioxide (21 - 33 mEq/l) 26 Anion Gap (0 - 20) 9 BUN (7 - 18 mg/dL) 19 H Creatinine (0.6 - 1.3 mg/dL) 1.0 POC Creatinine (0.6 - 1.0 mg/dL) 1.0 Glomerular Filtr Rate (80 - 90) 62.5 L Glucose (70 - 110 mg/dL) 203 H POC Glucose (70 - 110 MG/DL) 193 H 176 H 156 H POC Glucose (mg/dL) (70 - 110 MG/DL) 206 H Calcium (8.0 - 10.5 mg/dL) 8.8 Magnesium (1.80 - 2.40 mg/dL) 2.21 Total Bilirubin (0.0 - 1.0 mg/dL) 1.00 Direct Bilirubin (0.0 - 0.30 MG/DL) 0.50 H Indirect Bilirubin (MG/DL) 0.50 AST (15 - 37 IUnit/L) 55 H ALT (30 - 65 IUnit/L) 13 L Total Alk Phosphatase (20 - 125 59 IUnit/L) Total Protein (6.4 - 8.2 g/dL) 5.8 L Albumin (3.4 - 5.0 g/dL) 3.40 TSH (0.42 - 5.47) 0.38 L Free T4 (0.77 - 1.61 ng/dL) 1.2 06/17 06/17 06/17 06/17 06/17 1800 1601 1359 1258 1157 Chemistry Sodium (134 - 147 mEq/L) 142 Potassium (3.4 - 5.0 mEq/L) 4.2 Chloride (100 - 108 mEq/L) 111 H Carbon Dioxide (21 - 33 mEq/l) 25 Anion Gap (0 - 20) 10 BUN (7 - 18 mg/dL) 19 H Creatinine (0.6 - 1.3 mg/dL) 1.2 Glomerular Filtr Rate (80 - 90) 50.2 L Glucose (70 - 110 mg/dL) 188 H POC Glucose (70 - 110 MG/DL) 155 H 182 H 172 H 167 H Calcium (8.0 - 10.5 mg/dL) 8.3 Laboratory Tests 06/18 0226 Hematology WBC (4.5 - 11.0 x10 3/uL) 14.2 H RBC (3.54 - 5.02 x10 6/uL) 2.96 L Hgb (11.0 - 15.0 g/dL) 9.0 L Hct (33.0 - 45.0 %) 26.9 L MCV (81.0 - 99.0 fL) 90.9 MCH (27.0 - 33.0 pg) 30.4 MCHC (33.0 - 37.0 g/dL) 33.5 RDW (11.5 - 14.5 %) 14.7 H Plt Count (150 - 400 x10 3/uL) 90 L MPV (7.0 - 9.0 fL) 10.9 H Neut % (Auto) (56.0 - 77.0 %) 80.1 H Lymph % (Auto) (14.0 - 32.0 %) 12.5 L [place] % (Auto) (4.8 - 9.0 %) 6.3 Eos % (Auto) (0.3 - 3.7 %) 0.2 L Baso % (Auto) (0.0 - 2.0 %) 0.2 Neut # (Auto) (2.0 - 7.6 x10 3/uL) 11.34 H Lymph # (Auto) (1.0 - 3.8 x10 3/uL) 1.77 [place] # (Auto) (0.1 - 0.8 x10 3/uL) 0.89 H Eos # (Auto) (0.0 - 0.2 x10 3/uL) 0.03 Baso # (Auto) (0.0 - 0.2 x10 3/uL) 0.03 Abs Immat Gran (auto) (0.00 - 0.03 x10 3/uL) 0. 10 H Add Manual Diff NO Immature Gran % (0.0 - 2.0 %) 0.7 Nucleated RBC % (0 - 0 %) 0.1 H Nucleated RBCs # (Man) (0.0 - 0.1 x10 3/uL) 0.0 2 Radiology data: Recent Impressions: RADIOLOGY - XR CHEST 1 V 06/18 0905 Report Impression - Status: SIGNED Entered: 06/18/2022 1028 IMPRESSION: 1. Mild enlarged cardiac silhouette. 2. Qgem-an-vjkemeff pulmonary edema versus infil trates. 3. Linear left perihilar pulmonary atelectasis, scarring. Decreased lung volumes. 4. Left-sided chest tube with small in the thora x in the left apical chest. Impression By: [email or web address] - Victor Manuel Mcallister M.D. Treatment Prophylaxis Treatment Prophylaxis Drain(s)/tube(s): Drain(s)/tube(s): chest Diagnosis, Assessment Plan Free Text DxA P Notes Free text DxA P notes: CAD cath with multivessel CAD CTS seen Status post 4 vessel CABG today echo wnl Status post CABG Off Levophed on dopamine drip Patient extubated Has 2 chest tubes which have been removed today on insulin drip DM on SSI prn monitor sugars closely on insulin drip HLD stable anemia s/p one unit hgb stable check labs in am Electronically Signed by Reva Murrell MD on 0 06/19/22 at 1036 RPT #:[id number] END OF REPORT 2022-06-18 10:23:00-00:00 [facility]ACL [facility] Cardiothoracic Surgery Prog REPORT#:[id number] REPORT STATUS: Signed DATE:06/18/22 TIME: 1023 PATIENT: KALA TURPIN UNIT #: [id number] ROOM/BED: [place] [address] : 57 AGE: 67 SEX: F ATTEND: Rosa Murrell MD ADM AUTHOR: Kassie Aden * ALL edits or amendments must be made on the [employer]/computer document * General Post-op: day 2 Status post: 06/16/22 CABG x 4 (LIN-LAD, SVG-Elisabet, SVG-OM, SVG-PDA) ALAA EVH (RGSV) Posterior pericardiotomy Subjective Chief complaint: Follow up CABG Review of Systems Constitutional: Reports: generalized weakness. Denies: chills, f atigue. Skin: Denies: diaphoresis, ecchymosis, laceration. Allergy/Immun: Denies: anaphylaxis, hives, rhinorrhea. Eyes: Denies: discharge, itching, eye pain. ENT: Denies: earache, mouth pain, throat pain, tootha spencer. Respiratory: Denies: pneumonia, SOB, wheezing. Cardiovascular: Denies: chest pain, palpitations. GI: Denies: abdominal pain, nausea, vomiting. : Denies: dysuria, flank pain. Musculoskeletal: Denies: extremity pain. Heme: Denies: petechiae. Endocrine: Denies: cold intolerance, polyphagia, weight los s. Neuro: Denies: change in LOC, dizziness, seizure, synco pe, unable to speak. All systems rev neg: except as marked (in the HP I) Objective General VS/I O Last Documented: Result Date Time Pulse Ox 67 06/18 0953 B/P 95/46 06/18 0953 B/P Mean 66 06/18 0953 Pulse 79 06/18 0953 Resp 30 06/18 09 Temp 99.9 06/18 0930 O2 Delivery High flow nasal cannula 06/18 0834 O2 Flow Rate 2 06/18 0834 FiO2 40 06/16 1748 24 hour I O ending at 0700: 06/18 0700 06/17 1900 Intake Total 1779.00 Output Total 370 450 Balance -370 1329.00 Intake, IV 469.00 Intake, Oral 720 Intake, Oral 290 Supplement Intake, 300 Packed Cells Output, Chest 20 150 Tube Drainage Output, Urine 350 300 Patient 223 lb Weight Weight Bed scale Measurement Method PATIENT WEIGHT: Weight (lb): 223 Weight (oz): 1.72 Weight (kg): 101.200 Physical Exam General appearance: alert, oriented, pleasant, m ental status normal, no respiratory distress Wound/incision: Location: sternal Site condition: dressing clean dry, dressing in tact HEENT: anicteric, mucosal membranes moist, pupil s reactive to light Neck: full range of motion, non-tender, supple/n o meningismus Cardiovascular: normal heart sounds, regular rat e rhythm Respiratory: decreased breath sounds, aerating w ell, symmetric expansion, no distress Abdomen: soft, non-tender Genitourinary: staples Extremities: dry, moves all Musculoskeletal: full range of motion 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, 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 X 3 Skin: dry, intact Psychiatry: normal affect, normal mood Current Medications Medications: Active Meds + DC'd Last 24 Hrs Ipratropium [place] (ATROVENT) 500 MCG Q2H PRN P RN INH Cyanocobalamin (Vitamin B-12 500 mcg tab) 500 MC G DAILY PO Ferrous Sulfate (FERROUS SULFATE) 325 MG DAILY P O Bisacodyl (DULCOLAX) 10 MG ONCE PRN RECTAL Magnesium Hydroxide (MILK OF MAGNESIA) 30 ML ONC E PRN PO Heparin Sodium (HEPARIN 5000 UNITS/ML) 5,000 UNI T Q12HR SUBQ Dextrose/Water (DEXTROSE 10% IN WATER) 250 ML DIR PRN IV (CKD) Insulin Human Regular (HumuLIN R) 100 UNIT ASDIR IV (CKD) Sodium Chloride (SODIUM CHLORIDE 0.9%) 99 ML Dopamine HCl/Dextrose (DOPamine 400MG/D5W 250ML) 250 ML ASDIR IV Clopidogrel Bisulfate (Plavix) 75 MG DAILY PO Polyethylene Glycol (MIRALAX) 17 GM DAILY PO Pantoprazole (PROTONIX) 40 MG DAILY@0600 PO Docusate Sodium (COLACE) 100 MG BID PO Gabapentin (NEURONTIN) 200 MG BID PO Metoprolol Tartrate (LOPRESSOR) 12.5 MG Q12HR PO Mupirocin (BACTROBAN 2% 22 GM OINTMENT) 1 APPLIC BID NASAL Sennosides (Senna Lax 8.6 MG TABLET) 17.2 MG BED TIME PO Aspirin (ASPIRIN) 81 MG DAILY PO Amiodarone HCl (CORDARONE) 200 MG TID PO Acetaminophen (TYLENOL) 650 MG Q4H PRN PRN PO Acetaminophen (TYLENOL) 650 MG Q4H PRN PRN RECTA L Albumin Human (ALBUMINAR 25%) 25 GM ASDIR PRN IV (DC) Calcium Chloride (CALCIUM CHLORIDE) 1 GM ASDIR P RN IV Dextrose/Water (DEXTROSE 10% IN WATER) 125 ML DIR PRN IV (CKD) Dextrose/Water (DEXTROSE 10% IN WATER) 250 ML DIR PRN IV (CKD) Epinephrine (ADRENALIN CHLORIDE) 4 MG ASDIR IV Dextrose/Water (DEXTROSE 5% WATER) 246 ML Glucagon (GLUCAGON) 1 MG ASDIR PRN IM Insulin Human Regular (HumuLIN R) 100 UNIT ASDIR IV (CKD) Sodium Chloride (SODIUM CHLORIDE 0.9%) 99 ML Ipratropium [place] (ATROVENT) 500 MCG RTQ4H INH Magnesium Sulfate (MAGNESIUM SULFATE 4GM/SWFI 10 0ML) 100 ML ASDIR PRN IV Magnesium Sulfate (MAGNESIUM SULFATE 2GM/SWFI 50 ML) 50 ML ASDIR PRN IV Magnesium Sulfate/Dextrose (MAGNESIUM SULFATE 1G M/D5W 100ML) 100 ML ASDIR PRN IV Morphine Sulfate (morphine SULFATE) 4 MG Q2H PRN PRN IV Nitroglycerin/Dextrose (NITROGLYCERIN 50,000MCG/ D5W 250ML) 250 ML ASDIR IV Norepinephrine Bitartrate (NOREPINEPHRINE 8 MG/N S 250 ML) 250 ML TITRATE IV Ondansetron HCl (ZOFRAN) 4 MG Q6H PRN PRN IV Oxycodone HCl (ROXICODONE) 5 MG Q4H PRN PRN PO Oxycodone HCl (ROXICODONE) 10 MG Q4H PRN PRN PO Potassium Chloride (KCL 20MEQ/SWFI 100ML) 100 ML ASDIR PRN IV Sodium Bicarbonate (SODIUM BICARBONATE) 50 MEQ A SDIR PRN IV Sodium Chloride (SODIUM CHLORIDE 0.9%) 1,000 ML .Q20H IV Sodium Chloride (SODIUM CHLORIDE 0.9%) 250 ML Q2 4H IV Atorvastatin Calcium (LIPITOR) 40 MG 2100 PO Melatonin (Melatonin) 6 MG BEDTIME PO Sodium Chloride (SODIUM CHLORIDE) 20 ML ASDIR IV Acetaminophen (TYLENOL) 650 MG Q4H PRN PRN PO Results Findings/Data: Laboratory Tests 06/18 225 Blood Gas Puncture Site Art Line O2 Saturation (90 - 100 %) 94.9 ABG pH (7.35 - 7.45) 7.317 L ABG pCO2 (35.0 - 45 mmHg) 54.1 *H ABG pO2 (80 - 100.0 mmHg) 83.3 ABG HCO3 (22.0 - 26.0 MMOL/L) 27.7 H ABG Total CO2 29.4 ABG Base Excess (-4.0 - 4.0 MMOL/L) 1.6 ABG Hematocrit (33.0 - 45.0 %) 25 L ABG Hemoglobin (11.0 - 15.0 G/DL) 8.5 L Sodium (134 - 147 mmol/L) 140 Potassium (3.4 - 5.0 mmol/L) 4.2 Chloride (100 - 108 mmol/L) 106 Ionized Calcium (1.12 - 1.32 MMOL/L) 1.35 H Lactic Acid (0.9 - 1.7 mmol/l) 0.8 L O2 Delivery Device [facility] Laboratory Tests 06/18 06/18 06/18 06/18 06/17 0747 0226 225 33 2017 Chemistry Sodium (134 - 147 mEq/L) 141 Potassium (3.4 - 5.0 mEq/L) 4.4 Chloride (100 - 108 mEq/L) 111 H Carbon Dioxide (21 - 33 mEq/l) 26 Anion Gap (0 - 20) 9 BUN (7 - 18 mg/dL) 19 H Creatinine (0.6 - 1.3 mg/dL) 1.0 POC Creatinine (0.6 - 1.0 mg/dL) 1.0 Glomerular Filtr Rate (80 - 90) 62.5 L Glucose (70 - 110 mg/dL) 203 H POC Glucose (70 - 110 MG/DL) 193 H 176 H 156 H POC Glucose (mg/dL) (70 - 110 MG/DL) 206 H Calcium (8.0 - 10.5 mg/dL) 8.8 Magnesium (1.80 - 2.40 mg/dL) 2.21 Total Bilirubin (0.0 - 1.0 mg/dL) 1.00 Direct Bilirubin (0.0 - 0.30 MG/DL) 0.50 H Indirect Bilirubin (MG/DL) 0.50 AST (15 - 37 IUnit/L) 55 H ALT (30 - 65 IUnit/L) 13 L Total Alk Phosphatase (20 - 125 IUnit/L) 59 Total Protein (6.4 - 8.2 g/dL) 5.8 L Albumin (3.4 - 5.0 g/dL) 3.40 TSH (0.42 - 5.47) 0.38 L Free T4 (0.77 - 1.61 ng/dL) 1.2 06/17 06/17 06/17 06/17 06/17 1800 1601 1359 1258 1157 Chemistry Sodium (134 - 147 mEq/L) 142 Potassium (3.4 - 5.0 mEq/L) 4.2 Chloride (100 - 108 mEq/L) 111 H Carbon Dioxide (21 - 33 mEq/l) 25 Anion Gap (0 - 20) 10 BUN (7 - 18 mg/dL) 19 H Creatinine (0.6 - 1.3 mg/dL) 1.2 Glomerular Filtr Rate (80 - 90) 50.2 L Glucose (70 - 110 mg/dL) 188 H POC Glucose (70 - 110 MG/DL) 155 H 182 H 172 H 167 H Calcium (8.0 - 10.5 mg/dL) 8.3 Laboratory Tests 06/18 0226 Hematology WBC (4.5 - 11.0 x10 3/uL) 14.2 H RBC (3.54 - 5.02 x10 6/uL) 2.96 L Hgb (11.0 - 15.0 g/dL) 9.0 L Hct (33.0 - 45.0 %) 26.9 L MCV (81.0 - 99.0 fL) 90.9 MCH (27.0 - 33.0 pg) 30.4 MCHC (33.0 - 37.0 g/dL) 33.5 RDW (11.5 - 14.5 %) 14.7 H Plt Count (150 - 400 x10 3/uL) 90 L MPV (7.0 - 9.0 fL) 10.9 H Neut % (Auto) (56.0 - 77.0 %) 80.1 H Lymph % (Auto) (14.0 - 32.0 %) 12.5 L [place] % (Auto) (4.8 - 9.0 %) 6.3 Eos % (Auto) (0.3 - 3.7 %) 0.2 L Baso % (Auto) (0.0 - 2.0 %) 0.2 Neut # (Auto) (2.0 - 7.6 x10 3/uL) 11.34 H Lymph # (Auto) (1.0 - 3.8 x10 3/uL) 1.77 [place] # (Auto) (0.1 - 0.8 x10 3/uL) 0.89 H Eos # (Auto) (0.0 - 0.2 x10 3/uL) 0.03 Baso # (Auto) (0.0 - 0.2 x10 3/uL) 0.03 Abs Immat Gran (auto) (0.00 - 0.03 x10 3/uL) 0. 10 H Add Manual Diff NO Immature Gran % (0.0 - 2.0 %) 0.7 Nucleated RBC % (0 - 0 %) 0.1 H Nucleated RBCs # (Man) (0.0 - 0.1 x10 3/uL) 0.0 2 Treatment Prophylaxis Treatment Prophylaxis Oxygen: nasal cannula Drain(s)/tube(s): Drain(s)/tube(s): chest Diagnosis, Assessment Plan Hospital course to date: Very pleasant 67-year-old female with past medic al history of stroke, hypertension, hyperlipidemia, diabetes (on insul in), obstructive sleep apnea, PAD, 2 MIs in the past statu s post PCI/stenting (on Plavix at home), NonHodgkin' s lymphoma (2006) who was at home working on her computer when she suddenly developed severe chest pain radiating to left sh oulder and jaw. Presented to the emergency room, was evaluated by car diology and underwent left heart cath. Coronary angiogram revealed severe multivessel coronary artery disease involving LAD which is totally occluded after the midporti on; diagonal OM branch with proximal stenosis 60 to 70%, left circumflex wit h 80-90% stenosis. Patient transferred to [facility] for surgical revasc ularization. PLAN Coronary angiogram images re viewed with Dr. Rogel and findings discussed with the patient. Will benefit from surgical revascul arization. Initiate preop work-up for CABG Hold Plavix. Obtain platelet response test to Pl avix Carotid ultrasound Noncontrasted chest BLE venous Doppler for vein mapping and marking Completed echocardiogram Incentive spirometer teaching Physical therapy evaluation given Charcot shararo me and limited mobilization Further recommendations to follow. 06/16/22 CABG x 4 (LIN-LAD, SVG-Elisabet, SVG-OM, SVG-PDA) ALAA EVH (RGSV) Posterior pericardiotomy 06/17/22 POD 1 Patient is alert and oriented, out of bed in dulce ir Labile blood pressure. Minimal pressor requireme nts, levo at 1, wean off as tolerated Transfuse 1 unit PRBC On 2l nasal cannula, encoura ge incentive spirometer use, nebs and deep breathing NSR on nutrition coordinator, no ectopy, epicardial pa cing wires on standby Keep both chest tubes and monitor outputs Cardiac diet Glycemic control on insulin drip, monitor blood sugars, consult endocrinology Bowel regimen protocol PT/OT DVT prophylaxis with SCDs and SQ heparin, GI pro phylaxis with PPI Monitor patient in CVICU Patient seen with Dr. Rogel, plan of care disc ussed with ICU team 06/18 No major events overnight, alert and oriented Wean O2 as tolerated. Encourage I-S On dopamine drip at 3 for renal perfusion; pt smith d low UOP yesterday Off levophed Cr 1.0 from 1.2. Strict I's and O's Chest tubes with minimal output; we will discont inue this morning Bowel regimen Glycemic control with insulin drip. Endocrinolog y following DVT prophylaxis with heparin subq Keep in CVICU today Pt seen and plan reviewed with Dr Rogel at 1239 at 1809 RPT #:[id number] END OF REPORT 2022-06-18 06:30:00-00:00 [id number] [place] [address] PATIENT NAME: KALA TURPIN ADMIT DATE: 06/15/22 ACCOUNT NO: [id number] ROOM NO: [facility] [place] AGE: 67 REPORT TYPE: eELECTROCARDIOGRAM REPORT SEX: F ADMITTING PHYSICIAN:MAYRA MYERS FOR EDM ATTENDING PHYSICIAN:Reva Murrell MD Order: [id number] Test Reason : POD 2 Test Date/Time Stamp: SunJun 18 2022 06:30:19 Blood Pressure : / mmHG Vent. Rate : 084 BPM Atrial Rate : 084 BPM P-R Int : 130 ms QRS Dur : 080 ms QT Int : 340 ms P-R-T Axes : 070 066 052 degree s QTc Int : 401 ms Normal sinus rhythm Nonspecific ST and T wave abnormality Abnormal ECG When compared with ECG of 17-JUN-2022 04:12, No significant change was found Confirmed by MD PALMA, AMARA ([id number]) on 06/20/19 23 9:25:33 PM Referred By: Self Referred Confirmed by:AMARA NAVARRETE MD Electronically Signed by Amara Waldrop MD on 0 06/19/22 at 2125 PATIENT NAME: KALA TURPIN 16 2022-06-17 23:59:00-00:00 [facility] ([facility]) Hospitalist Progress Note REPORT#:[id number] REPORT STATUS: Signed DATE:06/17/22 TIME: 2358 PATIENT: KALA TURPIN UNIT #: [id number] ROOM/BED: [place] [address] : 57 AGE: 67 SEX: F ATTEND: Rosa Murrell MD ADM AUTHOR: Reva Murrell MD * ALL edits or amendments must be made on the el [employer]/computer document * Subjective Chief complaint: s/p 4 vessel CABG HPI: This is 67-year-old female with past medical his tory of stroke, hypertension, hyperlipidemia, diabetes (on insulin), obstructi ve sleep apnea, PAD, 2 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 Presented to the emergency room, was evaluated by cardiology and underwent left h eart cath. Coronary angiogram revealed severe multivessel coronary artery dise ase involving LAD which is totally occluded after the m idportion; diagonal OM branch with proximal stenosis 60 to 70%, left 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 Patient transferred to [facility] for surgical revascularization. Objective General VS/I O: Vital Signs: Date Time Temp Pulse Resp B/P B/P Pulse O2 O2 F low FiO2 Mean Ox Delivery Rate / 0953 79 30 95/46 66 67 03/ 0947 77 16 147/62 89 98 03/ 0944 78 30 88/42 60 96 03/ 0940 79 16 149/63 91 97 03/ 0930 114/57 82 03/ 0930 99.9 79 19 102/39 59 97 03/26 0915 140/62 89 03/ 0915 99.9 78 11 151/51 77 96 03/26 0900 119/57 82 03/ 0900 99.9 79 17 124/45 65 97 03/ 0845 128/63 90 03/ 0845 99.9 75 12 134/44 66 98 03/ 0834 97 High flow 2 nasal cannula 03/26 0830 128/59 85 03/26 0830 99.9 75 13 131/47 67 97 03/26 0815 133/61 88 03/26 0815 100.0 80 13 154/51 75 97 03/26 0813 97 High flow 2 nasal cannula 03/26 0800 Nasal 3 cannula 03/26 0800 126/62 89 03/26 0800 100.0 80 16 134/48 71 97 03/26 0745 125/57 82 03/ 0745 100.2 77 22 101/44 60 97 03/26 0730 130/60 86 03/26 0730 100.4 75 12 133/42 63 98 03/26 0715 149/65 93 03/26 0715 100.4 79 16 158/50 77 97 03/26 0710 150/65 94 03/26 0710 100.4 77 15 170/59 88 97 03/26 0600 100.2 79 14 122/45 66 97 03/ 0500 100.2 79 15 145/45 69 97 03/ 0400 100.2 79 14 125/44 65 97 03/ 0325 98 Nasal 2 cannula 03/ 0300 100.2 81 12 168/53 82 98 03/ 0200 99.9 78 14 134/46 69 98 03/ 0100 99.7 77 12 142/47 72 98 03/ 0000 99.3 77 12 142/46 70 98 03/ 2300 99.1 80 10 157/55 84 96 03/ 2200 99.1 77 11 134/48 69 98 03/ 2100 99.0 77 11 133/45 65 96 03 2000 Nasal cannula 06/17 2000 99.0 79 11 155/49 74 96 03/ 1905 93 Nasal 3 cannula 06/17 1900 98.8 75 11 142/46 67 96 03/ 1830 139/63 90 03/ 1830 98.8 76 11 138/45 66 96 03/25 1815 138/61 88 03/ 1815 98.8 79 18 159/50 74 96 03/25 1800 148/66 95 03/25 1800 98.8 79 11 158/56 81 96 03/25 1745 144/65 94 03/25 1745 98.8 79 19 139/54 76 96 03/25 1730 143/66 95 03/25 1730 98.8 75 11 139/53 75 95 03/25 1716 160/67 96 03/25 1716 98.8 80 20 155/57 82 95 03/25 1700 128/60 87 03/25 1700 98.8 79 22 132/54 74 96 03/25 1645 125/55 79 03/25 1645 98.8 68 17 95/36 51 92 03/25 1631 144/63 90 03/25 1631 98.8 76 10 146/47 70 95 03/25 1615 122/60 86 03/25 1615 98.8 75 15 141/48 72 92 03/25 1601 140/62 89 03/25 1601 98.8 77 12 141/51 76 91 03/25 1551 100 High flow 2 nasal cannula 03/25 1545 129/58 83 03/25 1545 99.0 70 14 122/43 62 92 03/25 1531 126/56 80 03/25 1531 99.0 71 14 124/45 65 92 03/25 1518 84/47 59 03/25 1518 99.0 54 19 88/31 44 03/25 1500 140/64 92 03/25 1500 98.8 72 23 140/45 67 94 03/25 1445 136/63 90 03/25 1445 98.8 69 26 137/44 65 94 03/25 1430 137/65 93 03/25 1430 99.0 71 24 140/46 69 95 03/25 1415 147/67 96 03/25 1415 99.0 70 9 151/48 72 97 03/25 1400 136/61 88 03/25 1400 99.0 69 14 142/47 69 97 03/25 1345 120/56 81 03/25 1345 99.0 63 10 111/40 58 98 03/25 1330 122/58 83 03/25 1330 99.0 67 9 122/41 60 96 03/25 1315 116/56 81 03/25 1315 99.0 66 8 121/41 60 96 03/25 1300 118/59 80 03/25 1300 99.0 70 13 132/46 66 97 03/25 1245 116/55 79 03/25 1245 99.0 71 9 132/45 66 97 03/25 1230 103/64 76 03/25 1230 99.0 67 12 84/41 55 97 03/25 1215 117/68 87 03/25 1215 98.8 74 17 134/48 70 97 03/25 1201 99 High flow 2 nasal cannula 03/25 1200 118/58 83 03/25 1200 98.8 71 16 116/46 65 98 03/25 1151 114/55 79 03/25 1151 98.8 68 10 129/45 65 97 03/25 1131 115/58 83 03/25 1131 98.8 68 10 136/48 70 97 03/25 1115 106/56 77 03/25 1115 98.6 66 9 130/45 66 97 06/17 1101 114/57 82 06/17 1101 98.8 66 10 127/45 64 98 24 hour I O ending at 0700: 06/18 0700 06/17 1900 Intake Total 1779.00 Output Total 370 450 Balance -370 1329.00 Intake, IV 469.00 Intake, Oral 720 Intake, Oral 290 Supplement Intake, 300 Packed Cells Output, Chest 20 150 Tube Drainage Output, Urine 350 300 Patient 223 lb Weight Weight Bed scale Measurement Method PATIENT WEIGHT: Weight (lb): 223 Weight (oz): 1.72 Weight (kg): 101.200 Medications: Active Meds + DC'd Last 24 Hrs Ipratropium [place] (ATROVENT) 500 MCG Q2H PRN P RN INH Cyanocobalamin (Vitamin B-12 500 mcg tab) 500 MC G DAILY PO Ferrous Sulfate (FERROUS SULFATE) 325 MG DAILY P O Bisacodyl (DULCOLAX) 10 MG ONCE PRN RECTAL Magnesium Hydroxide (MILK OF MAGNESIA) 30 ML ONC E PRN PO Heparin Sodium (HEPARIN 5000 UNITS/ML) 5,000 UNI T Q12HR SUBQ Dextrose/Water (DEXTROSE 10% IN WATER) 250 ML DIR PRN IV (CKD) Insulin Human Regular (HumuLIN R) 100 UNIT ASDIR IV (CKD) Sodium Chloride (SODIUM CHLORIDE 0.9%) 99 ML Dopamine HCl/Dextrose (DOPamine 400MG/D5W 250ML) 250 ML ASDIR IV Clopidogrel Bisulfate (Plavix) 75 MG DAILY PO Polyethylene Glycol (MIRALAX) 17 GM DAILY PO Pantoprazole (PROTONIX) 40 MG DAILY@0600 PO Docusate Sodium (COLACE) 100 MG BID PO Gabapentin (NEURONTIN) 200 MG BID PO Metoprolol Tartrate (LOPRESSOR) 12.5 MG Q12HR PO Mupirocin (BACTROBAN 2% 22 GM OINTMENT) 1 APPLIC BID NASAL Sennosides (Senna Lax 8.6 MG TABLET) 17.2 MG BED TIME PO Aspirin (ASPIRIN) 81 MG DAILY PO Amiodarone HCl (CORDARONE) 200 MG TID PO Acetaminophen (TYLENOL) 650 MG Q4H PRN PRN PO Acetaminophen (TYLENOL) 650 MG Q4H PRN PRN RECTA L Albumin Human (ALBUMINAR 25%) 25 GM ASDIR PRN IV (DC) Calcium Chloride (CALCIUM CHLORIDE) 1 GM ASDIR P RN IV Dextrose/Water (DEXTROSE 10% IN WATER) 125 ML DIR PRN IV (CKD) Dextrose/Water (DEXTROSE 10% IN WATER) 250 ML DIR PRN IV (CKD) Epinephrine (ADRENALIN CHLORIDE) 4 MG ASDIR IV Dextrose/Water (DEXTROSE 5% WATER) 246 ML Glucagon (GLUCAGON) 1 MG ASDIR PRN IM Insulin Human Regular (HumuLIN R) 100 UNIT ASDIR IV (CKD) Sodium Chloride (SODIUM CHLORIDE 0.9%) 99 ML Ipratropium [place] (ATROVENT) 500 MCG RTQ4H INH Magnesium Sulfate (MAGNESIUM SULFATE 4GM/SWFI 10 0ML) 100 ML ASDIR PRN IV Magnesium Sulfate (MAGNESIUM SULFATE 2GM/SWFI 50 ML) 50 ML ASDIR PRN IV Magnesium Sulfate/Dextrose (MAGNESIUM SULFATE 1G M/D5W 100ML) 100 ML ASDIR PRN IV Morphine Sulfate (morphine SULFATE) 4 MG Q2H PRN PRN IV Nitroglycerin/Dextrose (NITROGLYCERIN 50,000MCG/ D5W 250ML) 250 ML ASDIR IV Norepinephrine Bitartrate (NOREPINEPHRINE 8 MG/N S 250 ML) 250 ML TITRATE IV Ondansetron HCl (ZOFRAN) 4 MG Q6H PRN PRN IV Oxycodone HCl (ROXICODONE) 5 MG Q4H PRN PRN PO Oxycodone HCl (ROXICODONE) 10 MG Q4H PRN PRN PO Potassium Chloride (KCL 20MEQ/SWFI 100ML) 100 ML ASDIR PRN IV Sodium Bicarbonate (SODIUM BICARBONATE) 50 MEQ A SDIR PRN IV Sodium Chloride (SODIUM CHLORIDE 0.9%) 1,000 ML .Q20H IV Sodium Chloride (SODIUM CHLORIDE 0.9%) 250 ML Q2 4H IV Atorvastatin Calcium (LIPITOR) 40 MG 2100 PO Melatonin (Melatonin) 6 MG BEDTIME PO Sodium Chloride (SODIUM CHLORIDE) 20 ML ASDIR IV Acetaminophen (TYLENOL) 650 MG Q4H PRN PRN PO Physical Exam General appearance: respiratory support Head/Eyes: atraumatic, clear cornea, EOMI, PERRL A Neck: supple/no meningismus Cardiovascular: normal heart sounds, reg ular rate rhythm, no gallop, no murmur , no rub Respiratory: aerating well, clear to auscultatio n Abdomen: non-tender, normal bowel sounds, soft, no distention Extremities: no clubbing, no cyanosis, no edema Musculoskeletal: normal inspection, painless ran ge of motion 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, oriented X 3, CNII-XII intact Skin: dry, intact Results Findings/Data: Laboratory Tests 06/18 225 Blood Gas Puncture Site Art Line O2 Saturation (90 - 100 %) 94.9 ABG pH (7.35 - 7.45) 7.317 L ABG pCO2 (35.0 - 45 mmHg) 54.1 *H ABG pO2 (80 - 100.0 mmHg) 83.3 ABG HCO3 (22.0 - 26.0 MMOL/L) 27.7 H ABG Total CO2 29.4 ABG Base Excess (-4.0 - 4.0 MMOL/L) 1.6 ABG Hematocrit (33.0 - 45.0 %) 25 L ABG Hemoglobin (11.0 - 15.0 G/DL) 8.5 L Sodium (134 - 147 mmol/L) 140 Potassium (3.4 - 5.0 mmol/L) 4.2 Chloride (100 - 108 mmol/L) 106 Ionized Calcium (1.12 - 1.32 MMOL/L) 1.35 H Lactic Acid (0.9 - 1.7 mmol/l) 0.8 L O2 Delivery Device [facility] Laboratory Tests 06/18 06/18 06/18 06/18 06/17 0747 0226 225 33 2017 Chemistry Sodium (134 - 147 mEq/L) 141 Potassium (3.4 - 5.0 mEq/L) 4.4 Chloride (100 - 108 mEq/L) 111 H Carbon Dioxide (21 - 33 mEq/l) 26 Anion Gap (0 - 20) 9 BUN (7 - 18 mg/dL) 19 H Creatinine (0.6 - 1.3 mg/dL) 1.0 POC Creatinine (0.6 - 1.0 mg/dL) 1.0 Glomerular Filtr Rate (80 - 90) 62.5 L Glucose (70 - 110 mg/dL) 203 H POC Glucose (70 - 110 MG/DL) 193 H 176 H 156 H POC Glucose (mg/dL) (70 - 110 MG/DL) 206 H Calcium (8.0 - 10.5 mg/dL) 8.8 Magnesium (1.80 - 2.40 mg/dL) 2.21 Total Bilirubin (0.0 - 1.0 mg/dL) 1.00 Direct Bilirubin (0.0 - 0.30 MG/DL) 0.50 H Indirect Bilirubin (MG/DL) 0.50 AST (15 - 37 IUnit/L) 55 H ALT (30 - 65 IUnit/L) 13 L Total Alk Phosphatase (20 - 125 59 IUnit/L) Total Protein (6.4 - 8.2 g/dL) 5.8 L Albumin (3.4 - 5.0 g/dL) 3.40 TSH (0.42 - 5.47) 0.38 L Free T4 (0.77 - 1.61 ng/dL) 1.2 06/17 06/17 06/17 06/17 06/17 1800 1601 1359 1258 1157 Chemistry Sodium (134 - 147 mEq/L) 142 Potassium (3.4 - 5.0 mEq/L) 4.2 Chloride (100 - 108 mEq/L) 111 H Carbon Dioxide (21 - 33 mEq/l) 25 Anion Gap (0 - 20) 10 BUN (7 - 18 mg/dL) 19 H Creatinine (0.6 - 1.3 mg/dL) 1.2 Glomerular Filtr Rate (80 - 90) 50.2 L Glucose (70 - 110 mg/dL) 188 H POC Glucose (70 - 110 MG/DL) 155 H 182 H 172 H 167 H Calcium (8.0 - 10.5 mg/dL) 8.3 Laboratory Tests 06/18 0226 Hematology WBC (4.5 - 11.0 x10 3/uL) 14.2 H RBC (3.54 - 5.02 x10 6/uL) 2.96 L Hgb (11.0 - 15.0 g/dL) 9.0 L Hct (33.0 - 45.0 %) 26.9 L MCV (81.0 - 99.0 fL) 90.9 MCH (27.0 - 33.0 pg) 30.4 MCHC (33.0 - 37.0 g/dL) 33.5 RDW (11.5 - 14.5 %) 14.7 H Plt Count (150 - 400 x10 3/uL) 90 L MPV (7.0 - 9.0 fL) 10.9 H Neut % (Auto) (56.0 - 77.0 %) 80.1 H Lymph % (Auto) (14.0 - 32.0 %) 12.5 L [place] % (Auto) (4.8 - 9.0 %) 6.3 Eos % (Auto) (0.3 - 3.7 %) 0.2 L Baso % (Auto) (0.0 - 2.0 %) 0.2 Neut # (Auto) (2.0 - 7.6 x10 3/uL) 11.34 H Lymph # (Auto) (1.0 - 3.8 x10 3/uL) 1.77 [place] # (Auto) (0.1 - 0.8 x10 3/uL) 0.89 H Eos # (Auto) (0.0 - 0.2 x10 3/uL) 0.03 Baso # (Auto) (0.0 - 0.2 x10 3/uL) 0.03 Abs Immat Gran (auto) (0.00 - 0.03 x10 3/uL) 0. 10 H Add Manual Diff NO Immature Gran % (0.0 - 2.0 %) 0.7 Nucleated RBC % (0 - 0 %) 0.1 H Nucleated RBCs # (Man) (0.0 - 0.1 x10 3/uL) 0.0 2 Radiology data: Recent Impressions: RADIOLOGY - XR CHEST 1 V 06/18 904 Report Impression - Status: SIGNED Entered: 06/18/2022 1028 IMPRESSION: 1. Mild enlarged cardiac silhouette. 2. Knti-ka-lvballoi pulmonary edema versus infil trates. 3. Linear left perihilar pulmonary atelectasis, scarring. Decreased lung volumes. 4. Left-sided chest tube with small in the thora x in the left apical chest. Impression By: [email or web address] - Victor Manuel Mcallister M.D. Treatment Prophylaxis Treatment Prophylaxis Drain(s)/tube(s): Drain(s)/tube(s): chest Diagnosis, Assessment Plan Free Text DxA P Notes Free text DxA P notes: CAD cath with multivessel CAD CTS seen Status post 4 vessel CABG today echo wnl Status post CABG On Levophed Patient intubated Has 2 chest tubes DM on SSI prn monitor sugars closely check A1C HLD stable anemia s/p one unit check labs in am Electronically Signed by Reva Murrell MD on 0 06/18/22 at 1100 RPT #:[id number] END OF REPORT 2022-06-17 17:57:00-00:00 [facility] ([facility]) Cardiology Progress Note REPORT#:[id number] REPORT STATUS: Signed DATE:06/17/22 TIME: 1757 PATIENT: KALA TURPIN UNIT #: [id number] ROOM/BED: [place] [address] : 57 AGE: 67 SEX: F ATTEND: Rosa Murrell MD ADM AUTHOR: Lou Mendez MD * ALL edits or amendments must be made on the [employer] document * Subjective Chief complaint: Presented at [facility] with chest pain , at this time Objective General VS/I O: 24 hour I O ending at 0700: 06/17 0700 06/16 1900 Intake Total 2573.00 3185.00 Output Total 695 2035 Balance 1878.00 1150.00 Intake, IV 1423.00 1185.00 Intake, Oral 800 Intake, Other 2000 Intake, 350 Packed Cells Output, Chest 195 165 Tube Drainage Output, Urine 500 1870 Patient 100.7 kg 99.2 kg Weight Weight Bed scale Bed scale Measurement Method Vital Signs: Date Time Temp Pulse Resp B/P B/P Pulse O2 O2 F low FiO2 Mean Ox Delivery Rate 06/17 1551 100 High flow 2 nasal cannula 06/17 1500 140/64 92 06/17 1500 98.8 72 23 140/45 67 94 06/17 1445 136/63 90 06/17 1445 98.8 69 26 137/44 65 94 06/17 1430 137/65 93 06/17 1430 99.0 71 24 140/46 69 95 06/17 1415 147/67 96 06/17 1415 99.0 70 9 151/48 72 97 06/17 1400 136/61 88 06/17 1400 99.0 69 14 142/47 69 97 06/17 1345 120/56 81 06/17 1345 99.0 63 10 111/40 58 98 06/17 1330 122/58 83 06/17 1330 99.0 67 9 122/41 60 96 03/25 1315 116/56 81 03/25 1315 99.0 66 8 121/41 60 96 03/25 1300 118/59 80 03/25 1300 99.0 70 13 132/46 66 97 03/25 1245 116/55 79 03/25 1245 99.0 71 9 132/45 66 97 03/25 1230 103/64 76 03/25 1230 99.0 67 12 84/41 55 97 03/25 1215 117/68 87 03/25 1215 98.8 74 17 134/48 70 97 03/25 1201 99 High flow 2 nasal cannula 03/ 1200 118/58 83 03/25 1200 98.8 71 16 116/46 65 98 03/25 1151 114/55 79 03/25 1151 98.8 68 10 129/45 65 97 03/25 1131 115/58 83 03/25 1131 98.8 68 10 136/48 70 97 03/25 1115 106/56 77 03/25 1115 98.6 66 9 130/45 66 97 03/25 1101 114/57 82 03/25 1101 98.8 66 10 127/45 64 98 03/25 1045 97/51 71 03/25 1045 98.8 68 16 116/49 67 97 03/25 1031 111/56 77 03/25 1031 98.8 67 8 119/43 63 97 03/25 1016 110/45 65 03/25 1016 98.8 67 15 99/42 58 98 03/25 1000 98/48 72 03/25 1000 98.8 66 10 115/40 57 97 03/25 0945 115/58 83 03/25 0945 98.8 68 10 126/43 63 96 03/25 0930 84/46 60 03/25 0930 98.8 63 9 93/33 48 97 03/25 0915 103/51 73 03/25 0915 98.8 68 10 115/38 56 97 03/25 0900 111/56 80 03/25 0900 98.8 71 9 124/41 61 98 03/25 0846 114/56 80 03/25 0846 98.8 71 17 98/43 59 97 03/25 0831 115/53 72 03/25 0831 98.8 72 25 109/45 64 97 03/25 0818 98 Nasal 2 cannula 03/25 0815 120/58 84 03/25 0815 98.8 69 9 138/45 69 97 03/25 0801 91/55 68 03/25 0801 98.8 67 17 93/37 52 97 03/25 0800 Nasal 2 cannula 03/25 0745 111/52 75 03/25 0745 98.8 68 12 132/48 68 97 03/25 0730 109/56 79 03/25 0730 98.8 69 11 127/50 69 96 03/25 0715 104/53 77 03/25 0715 98.8 68 14 126/46 65 98 03/25 0700 100/54 74 03/25 0700 98.8 68 18 116/45 62 98 03/25 0645 104/53 75 03/25 0645 98.8 67 20 126/47 66 98 03/25 0630 108/54 78 03/25 0630 98.8 64 10 123/45 66 99 03/25 0615 105/53 76 03/25 0615 98.8 66 12 116/42 60 97 03/25 0600 110/53 77 03/25 0600 98.8 69 13 114/43 61 97 03/25 0545 105/51 74 03/25 0545 99.1 69 11 118/42 60 97 03/25 0530 106/54 78 03/25 0530 99.1 67 11 113/41 59 96 03/25 0516 109/55 79 03/25 0515 99.3 69 14 111/42 60 95 03/25 0501 152/65 94 03/25 0500 99.1 79 11 183/60 93 97 03/25 0445 73 19 139/50 73 03/25 0430 71 11 118/42 59 97 03/25 0415 134/61 88 03/25 0415 99.1 72 10 139/47 69 97 03/25 0401 103/56 75 03/25 0400 99.1 54 20 67/32 42 99 03/25 0345 108/55 79 03/25 0345 99.1 61 18 88/40 54 98 03/25 0343 97 Nasal 2 cannula 03/25 0330 119/59 85 03/25 0330 99.1 68 14 111/43 60 97 03/25 0315 139/65 93 03/25 0315 99.1 72 11 145/54 78 99 03/25 0300 119/60 86 03/25 0300 99.1 71 13 120/48 68 99 03/25 0245 127/59 85 03/25 0245 99.3 74 12 135/55 78 99 03/25 0230 124/57 82 03/25 0230 99.3 67 14 119/48 67 100 03/25 0215 137/64 92 03/25 0215 99.1 74 17 151/58 83 99 03/25 0200 112/59 80 03/25 0200 99.3 65 11 103/46 63 100 03/25 0145 98/51 73 03/25 0145 99.3 73 13 112/45 63 99 03/25 0130 126/57 83 03/25 0130 99.3 75 12 116/48 69 98 03/25 0115 125/59 85 03/25 0115 99.3 75 13 123/49 71 98 03/25 0101 98/60 70 03/25 0100 99.3 73 14 84/44 58 99 03/25 0045 141/65 94 03/25 0045 99.5 79 11 137/67 91 99 03/25 0030 130/60 87 03/25 0030 99.5 77 13 151/74 97 98 03/25 0016 107/53 76 03/25 0015 99.3 76 20 130/72 91 99 03/25 0000 99.3 59 16 75/30 46 99 03/24 2345 139/60 92 03/24 2345 99.3 78 11 127/53 79 99 03/24 2331 135/63 90 03/24 2330 99.3 77 11 140/55 82 100 03/24 2315 94/49 70 03/24 2315 99.3 56 18 89/43 55 100 03/24 2301 139/64 92 03/24 2300 99.3 80 13 134/61 84 100 03/24 2245 106/75 86 03/24 2245 99.3 80 20 108/58 76 99 03/24 2230 124/60 87 03/24 2230 99.5 81 18 126/61 84 100 03/24 2215 130/60 86 03/24 2215 99.5 80 11 119/52 76 100 03/24 2200 120/55 79 03/24 2200 99.5 80 23 132/58 82 100 03/24 2146 124/57 82 032144 99.7 79 11 136/55 80 100 06/16 2129 123/52 83 06/16 2129 99.7 80 13 117/50 70 99 06/16 2114 156/69 99 06/16 2114 99.7 83 15 145/56 83 100 06/16 2100 149/70 100 06/16 2099 99.7 84 12 167/65 95 100 06/16 2045 91/43 62 06/16 2044 99.7 65 22 77/37 49 99 06/16 2029 124/60 86 06/16 2029 99.7 86 14 142/52 78 100 06/16 2014 124/67 88 06/16 2014 99.7 85 13 135/51 76 100 06/17 1999 136/57 86 06/17 1999 99.7 87 16 151/55 84 100 06/16 194 138/65 93 06/16 1944 99.7 89 10 153/59 87 100 06/17 1943 100 Nasal 4 cannula 06/16 193 140/63 91 06/16 193 99.5 87 16 141/54 80 100 06/16 1920 4 06/16 1916 120/59 85 06/16 191 99.5 82 14 130/51 73 100 06/16 1901 101/55 75 06/16 190 99.3 75 16 101/48 62 100 06/16 190 99.3 84 19 123/56 77 100 PATIENT WEIGHT: Weight (lb): 222 Weight (oz): 0.09 Weight (kg): 100.700 Medications: Active Meds + DC'd Last 24 Hrs Ipratropium [place] (ATROVENT) 500 MCG Q2H PRN P RN INH Cyanocobalamin (Vitamin B-12 500 mcg tab) 500 MC G DAILY PO Ferrous Sulfate (FERROUS SULFATE) 325 MG DAILY P O Bisacodyl (DULCOLAX) 10 MG ONCE PRN RECTAL Magnesium Hydroxide (MILK OF MAGNESIA) 30 ML ONC E PRN PO Heparin Sodium (HEPARIN 5000 UNITS/ML) 5,000 UNI T Q12HR SUBQ Dextrose/Water (DEXTROSE 10% IN WATER) 250 ML DIR PRN IV (CKD) Insulin Human Regular (HumuLIN R) 100 UNIT ASDIR IV (CKD) Sodium Chloride (SODIUM CHLORIDE 0.9%) 99 ML Dopamine HCl/Dextrose (DOPamine 400MG/D5W 250ML) 250 ML ASDIR IV Clopidogrel Bisulfate (Plavix) 75 MG DAILY PO Polyethylene Glycol (MIRALAX) 17 GM DAILY PO Albumin Human (ALBUMINAR 5% 12.5GM/250ML) 250 ML ONCE ONE IV (DC) Pantoprazole (PROTONIX) 40 MG DAILY@0600 PO Docusate Sodium (COLACE) 100 MG BID PO Gabapentin (NEURONTIN) 200 MG BID PO Metoprolol Tartrate (LOPRESSOR) 12.5 MG Q12HR PO Mupirocin (BACTROBAN 2% 22 GM OINTMENT) 1 APPLIC BID NASAL Sennosides (Senna Lax 8.6 MG TABLET) 17.2 MG BED TIME PO Aspirin (ASPIRIN) 81 MG DAILY PO Amiodarone HCl (CORDARONE) 200 MG TID PO Cefazolin Sodium (KEFZOL OR ANCEF) 6 GM ONCE ONE IV (DC) Sodium Chloride (SODIUM CHLORIDE 0.9%) 500 ML Acetaminophen (TYLENOL) 650 MG Q4H PRN PRN PO Acetaminophen (TYLENOL) 650 MG Q4H PRN PRN RECTA L Albumin Human (ALBUMINAR 25%) 25 GM ASDIR PRN IV (DC) Calcium Chloride (CALCIUM CHLORIDE) 1 GM ASDIR P RN IV Dextrose/Water (DEXTROSE 10% IN WATER) 125 ML DIR PRN IV (CKD) Dextrose/Water (DEXTROSE 10% IN WATER) 250 ML DIR PRN IV (CKD) Epinephrine (ADRENALIN CHLORIDE) 4 MG ASDIR IV Dextrose/Water (DEXTROSE 5% WATER) 246 ML Glucagon (GLUCAGON) 1 MG ASDIR PRN IM Insulin Human Regular (HumuLIN R) 100 UNIT ASDIR IV (CKD) Sodium Chloride (SODIUM CHLORIDE 0.9%) 99 ML Ipratropium [place] (ATROVENT) 500 MCG RTQ4H INH Magnesium Sulfate (MAGNESIUM SULFATE 4GM/SWFI 10 0ML) 100 ML ASDIR PRN IV Magnesium Sulfate (MAGNESIUM SULFATE 2GM/SWFI 50 ML) 50 ML ASDIR PRN IV Magnesium Sulfate/Dextrose (MAGNESIUM SULFATE 1G M/D5W 100ML) 100 ML ASDIR PRN IV Morphine Sulfate (morphine SULFATE) 4 MG Q2H PRN PRN IV Nitroglycerin/Dextrose (NITROGLYCERIN 50,000MCG/ D5W 250ML) 250 ML ASDIR IV Norepinephrine Bitartrate (NOREPINEPHRINE 8 MG/N S 250 ML) 250 ML TITRATE IV Ondansetron HCl (ZOFRAN) 4 MG Q6H PRN PRN IV Oxycodone HCl (ROXICODONE) 5 MG Q4H PRN PRN PO Oxycodone HCl (ROXICODONE) 10 MG Q4H PRN PRN PO Potassium Chloride (KCL 20MEQ/SWFI 100ML) 100 ML ASDIR PRN IV Sodium Bicarbonate (SODIUM BICARBONATE) 50 MEQ A SDIR PRN IV Sodium Chloride (SODIUM CHLORIDE 0.9%) 1,000 ML .Q20H IV Sodium Chloride (SODIUM CHLORIDE 0.9%) 250 ML Q2 4H IV Vancomycin HCl (VANCOMYCIN HCL) 1,500 MG PREOP O NCALL IV (DC) Sodium Chloride (SODIUM CHLORIDE 0.9%) 250 ML Verapamil HCl (ISOPTIN) 16.6 MG .Q24H ONE IV (DC ) Heparin Sodium (Porcine) (HEPARIN SODIUM) 1,660 UNIT Sodium Bicarbonate (SODIUM BICARBONATE) 0.7 ML Nitroglycerin/Dextrose (NITROGLYCERIN 50MG/D5W 250ML) 8.3 MG Lactated Ringer's (LACTATED RINGERS) 949.5 ML Atorvastatin Calcium (LIPITOR) 40 MG 2100 PO Melatonin (Melatonin) 6 MG BEDTIME PO Sodium Chloride (SODIUM CHLORIDE) 20 ML ASDIR IV Acetaminophen (TYLENOL) 650 MG Q4H PRN PRN PO Physical Exam General appearance: alert, awake, oriented Neck: non-tender, no JVD Cardiovascular: CV assessment: bradycardia Respiratory: clear to auscultation, no distress Abdomen: soft, non-tender, normal bowel sounds, no distention Genitourinary: no flank pain, no urinary cathete r Lower extremity: LE assessment: no calf tenderness, no edema 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, oriented X 3, normal speech Skin: dry, intact, normal color Psychiatry: normal affect, normal judgment/insig ht, normal mood Results Findings/Data: Laboratory Tests 06/17 0315 Blood Gas Puncture Site Art Line O2 Saturation (90 - 100 %) 98.6 ABG pH (7.35 - 7.45) 7.336 L ABG pCO2 (35.0 - 45 mmHg) 48.3 H ABG pO2 (80 - 100.0 mmHg) 127.7 H ABG HCO3 (22.0 - 26.0 MMOL/L) 25.8 ABG Total CO2 27.2 ABG Base Excess (-4.0 - 4.0 MMOL/L) 0.0 ABG Hematocrit (33.0 - 45.0 %) 23 L ABG Hemoglobin (11.0 - 15.0 G/DL) 7.7 L Sodium (134 - 147 mmol/L) 145 Potassium (3.4 - 5.0 mmol/L) 4.7 Chloride (100 - 108 mmol/L) 106 Ionized Calcium (1.12 - 1.32 MMOL/L) 1.22 Lactic Acid (0.9 - 1.7 mmol/l) 1.4 Temperature (F) 99.1 O2 Delivery Device [facility] Laboratory Tests 06/17 06/17 06/17 06/17 06/17 1601 1359 1258 1157 0954 Chemistry Sodium (134 - 147 mEq/L) 142 Potassium (3.4 - 5.0 mEq/L) 4.2 Chloride (100 - 108 mEq/L) 111 H Carbon Dioxide (21 - 33 mEq/l) 25 Anion Gap (0 - 20) 10 BUN (7 - 18 mg/dL) 19 H Creatinine (0.6 - 1.3 mg/dL) 1.2 Glomerular Filtr Rate (80 - 90) 50.2 L Glucose (70 - 110 mg/dL) 188 H POC Glucose (70 - 110 MG/DL) 182 H 172 H 167 H 167 H Calcium (8.0 - 10.5 mg/dL) 8.3 06/17 06/17 06/17 06/17 06/16 0810 0315 0310 0222 2304 Chemistry Sodium (134 - 147 mEq/L) 146 Potassium (3.4 - 5.0 mEq/L) 4.8 Chloride (100 - 108 mEq/L) 115 H Carbon Dioxide (21 - 33 mEq/l) 27 Anion Gap (0 - 20) 9 BUN (7 - 18 mg/dL) 18 Creatinine (0.6 - 1.3 mg/dL) 1.0 POC Creatinine (0.6 - 1.0 mg/dL) 1.0 Glomerular Filtr Rate (80 - 90) 62.5 L Glucose (70 - 110 mg/dL) 258 H POC Glucose (70 - 110 MG/DL) 178 H 222 H 180 H POC Glucose (mg/dL) (70 - 110 MG/DL) 237 H Calcium (8.0 - 10.5 mg/dL) 8.4 Ionized Calcium Jonas (1.09 - 1.30 MMOL/L) 1.18 Magnesium (1.80 - 2.40 mg/dL) 1.87 Total Bilirubin (0.0 - 1.0 mg/dL) 0.60 Direct Bilirubin (0.0 - 0.30 MG/DL) 0.30 Indirect Bilirubin (MG/DL) 0.30 AST (15 - 37 IUnit/L) 51 H ALT (30 - 65 IUnit/L) 15 L Total Alk Phosphatase (20 - 125 IUnit/L) 51 Total Protein (6.4 - 8.2 g/dL) 5.3 L Albumin (3.4 - 5.0 g/dL) 3.40 06/160 2101 1810 Chemistry Sodium (134 - 147 mEq/L) 148 H 146 Potassium (3.4 - 5.0 mEq/L) 4.7 4.0 Chloride (100 - 108 mEq/L) 116 H 112 H Carbon Dioxide (21 - 33 mEq/l) 26 26 Anion Gap (0 - 20) 11 12 BUN (7 - 18 mg/dL) 17 16 Creatinine (0.6 - 1.3 mg/dL) 1.0 1.0 Glomerular Filtr Rate (80 - 90) 62.5 L 62.5 L Glucose (70 - 110 mg/dL) 210 H 193 H POC Glucose (70 - 110 MG/DL) 186 H Calcium (8.0 - 10.5 mg/dL) 8.3 8.6 Laboratory Tests 06/17 06/16 06/16 0310 2240 1810 Hematology WBC (4.5 - 11.0 x10 3/uL) 12.5 H 10.5 9.8 RBC (3.54 - 5.02 x10 6/uL) 2.64 L 2.68 L 2.14 L Hgb (11.0 - 15.0 g/dL) 8.0 L 8.1 L 6.7 L Hct (33.0 - 45.0 %) 23.5 L 23.6 L 19.4 L MCV (81.0 - 99.0 fL) 89.0 88.1 90.7 MCH (27.0 - 33.0 pg) 30.3 30.2 31.3 MCHC (33.0 - 37.0 g/dL) 34.0 34.3 34.5 RDW (11.5 - 14.5 %) 14.2 13.8 12.7 Plt Count (150 - 400 x10 3/uL) 77 L 75 L 87 L MPV (7.0 - 9.0 fL) 11.1 H 10.7 H 11.0 H Neut % (Auto) (56.0 - 77.0 %) 85.1 H 87.7 H 87 .4 H Lymph % (Auto) (14.0 - 32.0 %) 6.9 L 6.3 L 6.4 L [place] % (Auto) (4.8 - 9.0 %) 7.5 5.5 5.8 Eos % (Auto) (0.3 - 3.7 %) 0.0 L 0.0 L 0.0 L Baso % (Auto) (0.0 - 2.0 %) 0.1 0.2 0.1 Neut # (Auto) (2.0 - 7.6 x10 3/uL) 10.68 H 9.1 9 H 8.58 H Lymph # (Auto) (1.0 - 3.8 x10 3/uL) 0.86 L 0.66 L 0.63 L [place] # (Auto) (0.1 - 0.8 x10 3/uL) 0.94 H 0.58 0.57 Eos # (Auto) (0.0 - 0.2 x10 3/uL) 0.00 0.00 0.0 0 Baso # (Auto) (0.0 - 0.2 x10 3/uL) 0.01 0.02 0. 01 Abs Immat Gran (auto) (0.00 - 0.03 x10 3/uL) 0. 05 H 0.03 0.03 Add Manual Diff NO NO NO Immature Gran % (0.0 - 2.0 %) 0.4 0.3 0.3 Nucleated RBC % (0 - 0 %) 0.0 0.0 0.0 Nucleated RBCs # (Man) (0.0 - 0.1 x10 3/uL) 0.0 0 0.00 0.00 Platelet Estimate (ADEQUATE THOUSAND) 88-110 Laboratory Tests 06/17 0310 Chemistry Magnesium (1.80 - 2.40 mg/dL) 1.87 Radiology data: Recent Impressions: RADIOLOGY - XR CHEST 1 V 06/17 0002 Report Impression - Status: SIGNED Entered: 06/17/2022 09 IMPRESSION: Shallow inspiration with mild atelectatic change s primarily on the left. Impression By: [email or web address] - Alfonso Garay M.D. Results: labs reviewed, vital signs reviewed, vi carlos signs stable Treatment Prophylaxis Treatment Prophylaxis Drain(s)/tube(s): Drain(s)/tube(s): chest Diagnosis, Assessment Plan Free Text DxA P Notes Free Text DxA P Notes: 67-year-old female with [facility] history of CAD, MA, prior PCI/MEG 11 years ago, hypertension, diabetes melli tus, CVA, peripheral neuropathy, Charcot's foot who presented to with chest pain. She was taken for left heart catheterization where she wa s found to have multivessel CAD with failed attempt to PCI the CUT OFF SAWYER LAD. Patient is transferred to [facility] facility for surgical revascularization. 1. Multivessel CAD CABG today Continue aspirin, beta-xander, statin No active chest pain 2. Hypertension Normotensive Continue losartan and metoprolol 3. Diabetes mellitus Manage per primary team 06/17/22: S/P CABG x 4 (LIN-LAD, SVG-Elisabet, SVG-OM, SVG-PDA) RAJESH Posterior pericardiotomy ECHO: NL EF WALL MOTION DROP IN H/H , SP 1 UNIT PRBC TRANSFUSION TELE: NSR GOOD URINE OUT PUT STABLE Electronically Signed by Lou Mendez MD on 0 06/18/22 at 1116 RPT #:[id number] END OF REPORT 2022-06-17 17:44:00-00:00 [facility] ([facility]) Critical Care Progress Note REPORT#:[id number] REPORT STATUS: Signed DATE:06/17/22 TIME: 1744 PATIENT: KALA TURPIN UNIT #: [id number] ROOM/BED: 2205-1 : 57 AGE: 67 SEX: F ATTEND: Rosa Murrell MD ADM AUTHOR: Srinivas Berry MD * ALL edits or amendments must be made on the el [employer]/computer document * Subjective Chief complaint: s/p CABG x4(LIN-LAD, SVG-Elisabet, SVG-OM, SVG-PDA) ALAA EVH (RGSV) Posterior pericardiotomy Comments: Interval history- Patient continues to remain on 1 of Levophed. When she was transferred from the bed to the [facility] she became orthostatic dropping her blood pressure to the 70s recovered after increasing the pressor requirements. During the day she continued to remain on the Levophed. 1 more unit of PRBC was transfused. Her creatinine slightly increased fr om 1-1.2 and urine output was about 20 cc/h. Levophed was switched to dopamine for renal perfusion. with this her urine output was about 25-30. Creatinin e improved to 1. Objective General VS/I O Last Documented: Result Date Time Pulse Ox 100 06/17 1551 O2 Delivery High flow nasal cannula 06/17 1551 O2 Flow Rate 2 06/17 1551 B/P 140/64 06/17 1500 B/P Mean 92 06/17 1500 Temp 37.1 06/17 1500 Pulse 72 06/17 1500 Resp 23 06/17 1500 FiO2 40 06/16 1748 24 hour I O ending at 0700: 06/17 0700 06/16 1900 Intake Total 2573.00 3185.00 Output Total 695 2035 Balance 1878.00 1150.00 Intake, IV 1423.00 1185.00 Intake, Oral 800 Intake, Other 2000 Intake, 350 Packed Cells Output, Chest 195 165 Tube Drainage Output, Urine 500 1870 Patient 100.7 kg 99.2 kg Weight Weight Bed scale Bed scale Measurement Method PATIENT WEIGHT: Weight (lb): 222 Weight (oz): 0.09 Weight (kg): 100.700 Medications: Active Meds + DC'd Last 24 Hrs Ipratropium [place] (ATROVENT) 500 MCG Q2H PRN P RN INH Cyanocobalamin (Vitamin B-12 500 mcg tab) 500 MC G DAILY PO Ferrous Sulfate (FERROUS SULFATE) 325 MG DAILY P O Bisacodyl (DULCOLAX) 10 MG ONCE PRN RECTAL Magnesium Hydroxide (MILK OF MAGNESIA) 30 ML ONC E PRN PO Heparin Sodium (HEPARIN 5000 UNITS/ML) 5,000 UNI T Q12HR SUBQ Dextrose/Water (DEXTROSE 10% IN WATER) 250 ML DIR PRN IV (CKD) Insulin Human Regular (HumuLIN R) 100 UNIT ASDIR IV (CKD) Sodium Chloride (SODIUM CHLORIDE 0.9%) 99 ML Dopamine HCl/Dextrose (DOPamine 400MG/D5W 250ML) 250 ML ASDIR IV Clopidogrel Bisulfate (Plavix) 75 MG DAILY PO Polyethylene Glycol (MIRALAX) 17 GM DAILY PO Albumin Human (ALBUMINAR 5% 12.5GM/250ML) 250 ML ONCE ONE IV (DC) Pantoprazole (PROTONIX) 40 MG DAILY@0600 PO Docusate Sodium (COLACE) 100 MG BID PO Gabapentin (NEURONTIN) 200 MG BID PO Metoprolol Tartrate (LOPRESSOR) 12.5 MG Q12HR PO Mupirocin (BACTROBAN 2% 22 GM OINTMENT) 1 APPLIC BID NASAL Sennosides (Senna Lax 8.6 MG TABLET) 17.2 MG BED TIME PO Aspirin (ASPIRIN) 81 MG DAILY PO Amiodarone HCl (CORDARONE) 200 MG TID PO Cefazolin Sodium (KEFZOL OR ANCEF) 6 GM ONCE ONE IV (DC) Sodium Chloride (SODIUM CHLORIDE 0.9%) 500 ML Acetaminophen (TYLENOL) 650 MG Q4H PRN PRN PO Acetaminophen (TYLENOL) 650 MG Q4H PRN PRN RECTA L Albumin Human (ALBUMINAR 25%) 25 GM ASDIR PRN IV (DC) Calcium Chloride (CALCIUM CHLORIDE) 1 GM ASDIR P RN IV Dextrose/Water (DEXTROSE 10% IN WATER) 125 ML DIR PRN IV (CKD) Dextrose/Water (DEXTROSE 10% IN WATER) 250 ML DIR PRN IV (CKD) Epinephrine (ADRENALIN CHLORIDE) 4 MG ASDIR IV Dextrose/Water (DEXTROSE 5% WATER) 246 ML Glucagon (GLUCAGON) 1 MG ASDIR PRN IM Insulin Human Regular (HumuLIN R) 100 UNIT ASDIR IV (CKD) Sodium Chloride (SODIUM CHLORIDE 0.9%) 99 ML Ipratropium [place] (ATROVENT) 500 MCG RTQ4H INH Magnesium Sulfate (MAGNESIUM SULFATE 4GM/SWFI 10 0ML) 100 ML ASDIR PRN IV Magnesium Sulfate (MAGNESIUM SULFATE 2GM/SWFI 50 ML) 50 ML ASDIR PRN IV Magnesium Sulfate/Dextrose (MAGNESIUM SULFATE 1G M/D5W 100ML) 100 ML ASDIR PRN IV Morphine Sulfate (morphine SULFATE) 4 MG Q2H PRN PRN IV Nitroglycerin/Dextrose (NITROGLYCERIN 50,000MCG/ D5W 250ML) 250 ML ASDIR IV Norepinephrine Bitartrate (NOREPINEPHRINE 8 MG/N S 250 ML) 250 ML TITRATE IV Ondansetron HCl (ZOFRAN) 4 MG Q6H PRN PRN IV Oxycodone HCl (ROXICODONE) 5 MG Q4H PRN PRN PO Oxycodone HCl (ROXICODONE) 10 MG Q4H PRN PRN PO Potassium Chloride (KCL 20MEQ/SWFI 100ML) 100 ML ASDIR PRN IV Sodium Bicarbonate (SODIUM BICARBONATE) 50 MEQ A SDIR PRN IV Sodium Chloride (SODIUM CHLORIDE 0.9%) 1,000 ML .Q20H IV Sodium Chloride (SODIUM CHLORIDE 0.9%) 250 ML Q2 4H IV Vancomycin HCl (VANCOMYCIN HCL) 1,500 MG PREOP O NCALL IV (DC) Sodium Chloride (SODIUM CHLORIDE 0.9%) 250 ML Verapamil HCl (ISOPTIN) 16.6 MG .Q24H ONE IV (DC ) Heparin Sodium (Porcine) (HEPARIN SODIUM) 1,660 UNIT Sodium Bicarbonate (SODIUM BICARBONATE) 0.7 ML Nitroglycerin/Dextrose (NITROGLYCERIN 50MG/D5W 250ML) 8.3 MG Lactated Ringer's (LACTATED RINGERS) 949.5 ML Atorvastatin Calcium (LIPITOR) 40 MG 2100 PO Melatonin (Melatonin) 6 MG BEDTIME PO Sodium Chloride (SODIUM CHLORIDE) 20 ML ASDIR IV Acetaminophen (TYLENOL) 650 MG Q4H PRN PRN PO Results Findings/data: Laboratory Tests 06/17 0315 Blood Gas Puncture Site Art Line O2 Saturation (90 - 100 %) 98.6 ABG pH (7.35 - 7.45) 7.336 L ABG pCO2 (35.0 - 45 mmHg) 48.3 H ABG pO2 (80 - 100.0 mmHg) 127.7 H ABG HCO3 (22.0 - 26.0 MMOL/L) 25.8 ABG Total CO2 27.2 ABG Base Excess (-4.0 - 4.0 MMOL/L) 0.0 ABG Hematocrit (33.0 - 45.0 %) 23 L ABG Hemoglobin (11.0 - 15.0 G/DL) 7.7 L Sodium (134 - 147 mmol/L) 145 Potassium (3.4 - 5.0 mmol/L) 4.7 Chloride (100 - 108 mmol/L) 106 Ionized Calcium (1.12 - 1.32 MMOL/L) 1.22 Lactic Acid (0.9 - 1.7 mmol/l) 1.4 Temperature (F) 99.1 O2 Delivery Device [facility] Laboratory Tests 06/17 06/17 06/17 06/17 06/17 1601 1359 1258 1157 0954 Chemistry Sodium (134 - 147 mEq/L) 142 Potassium (3.4 - 5.0 mEq/L) 4.2 Chloride (100 - 108 mEq/L) 111 H Carbon Dioxide (21 - 33 mEq/l) 25 Anion Gap (0 - 20) 10 BUN (7 - 18 mg/dL) 19 H Creatinine (0.6 - 1.3 mg/dL) 1.2 Glomerular Filtr Rate (80 - 90) 50.2 L Glucose (70 - 110 mg/dL) 188 H POC Glucose (70 - 110 MG/DL) 182 H 172 H 167 H 167 H Calcium (8.0 - 10.5 mg/dL) 8.3 06/17 06/17 06/17 06/17 06/16 0810 0315 0310 0222 2304 Chemistry Sodium (134 - 147 mEq/L) 146 Potassium (3.4 - 5.0 mEq/L) 4.8 Chloride (100 - 108 mEq/L) 115 H Carbon Dioxide (21 - 33 mEq/l) 27 Anion Gap (0 - 20) 9 BUN (7 - 18 mg/dL) 18 Creatinine (0.6 - 1.3 mg/dL) 1.0 POC Creatinine (0.6 - 1.0 mg/dL) 1.0 Glomerular Filtr Rate (80 - 90) 62.5 L Glucose (70 - 110 mg/dL) 258 H POC Glucose (70 - 110 MG/DL) 178 H 222 H 180 H POC Glucose (mg/dL) (70 - 110 MG/DL) 237 H Calcium (8.0 - 10.5 mg/dL) 8.4 Ionized Calcium Jonas (1.09 - 1.30 1.18 MMOL/L) Magnesium (1.80 - 2.40 mg/dL) 1.87 Total Bilirubin (0.0 - 1.0 mg/dL) 0.60 Direct Bilirubin (0.0 - 0.30 MG/DL) 0.30 Indirect Bilirubin (MG/DL) 0.30 AST (15 - 37 IUnit/L) 51 H ALT (30 - 65 IUnit/L) 15 L Total Alk Phosphatase (20 - 125 51 IUnit/L) Total Protein (6.4 - 8.2 g/dL) 5.3 L Albumin (3.4 - 5.0 g/dL) 3.40 06/160 2101 1810 Chemistry Sodium (134 - 147 mEq/L) 148 H 146 Potassium (3.4 - 5.0 mEq/L) 4.7 4.0 Chloride (100 - 108 mEq/L) 116 H 112 H Carbon Dioxide (21 - 33 mEq/l) 26 26 Anion Gap (0 - 20) 11 12 BUN (7 - 18 mg/dL) 17 16 Creatinine (0.6 - 1.3 mg/dL) 1.0 1.0 Glomerular Filtr Rate (80 - 90) 62.5 L 62.5 L Glucose (70 - 110 mg/dL) 210 H 193 H POC Glucose (70 - 110 MG/DL) 186 H Calcium (8.0 - 10.5 mg/dL) 8.3 8.6 Laboratory Tests 06/17 06/16 06/16 0310 2240 1810 Hematology WBC (4.5 - 11.0 x10 3/uL) 12.5 H 10.5 9.8 RBC (3.54 - 5.02 x10 6/uL) 2.64 L 2.68 L 2.14 L Hgb (11.0 - 15.0 g/dL) 8.0 L 8.1 L 6.7 L Hct (33.0 - 45.0 %) 23.5 L 23.6 L 19.4 L MCV (81.0 - 99.0 fL) 89.0 88.1 90.7 MCH (27.0 - 33.0 pg) 30.3 30.2 31.3 MCHC (33.0 - 37.0 g/dL) 34.0 34.3 34.5 RDW (11.5 - 14.5 %) 14.2 13.8 12.7 Plt Count (150 - 400 x10 3/uL) 77 L 75 L 87 L MPV (7.0 - 9.0 fL) 11.1 H 10.7 H 11.0 H Neut % (Auto) (56.0 - 77.0 %) 85.1 H 87.7 H 87. 4 H Lymph % (Auto) (14.0 - 32.0 %) 6.9 L 6.3 L 6.4 L [place] % (Auto) (4.8 - 9.0 %) 7.5 5.5 5.8 Eos % (Auto) (0.3 - 3.7 %) 0.0 L 0.0 L 0.0 L Baso % (Auto) (0.0 - 2.0 %) 0.1 0.2 0.1 Neut # (Auto) (2.0 - 7.6 x10 3/uL) 10.68 H 9.19 H 8.58 H Lymph # (Auto) (1.0 - 3.8 x10 3/uL) 0.86 L 0.66 L 0.63 L [place] # (Auto) (0.1 - 0.8 x10 3/uL) 0.94 H 0.58 0.57 Eos # (Auto) (0.0 - 0.2 x10 3/uL) 0.00 0.00 0. 00 Baso # (Auto) (0.0 - 0.2 x10 3/uL) 0.01 0.02 0. 01 Abs Immat Gran (auto) (0.00 - 0.03 x10 3/uL) 0. 05 H 0.03 0.03 Add Manual Diff NO NO NO Immature Gran % (0.0 - 2.0 %) 0.4 0.3 0.3 Nucleated RBC % (0 - 0 %) 0.0 0.0 0.0 Nucleated RBCs # (Man) (0.0 - 0.1 x10 3/uL) 0.0 0 0.00 0.00 Platelet Estimate (ADEQUATE THOUSAND) 88-110 Laboratory Tests 06/17/22 1258: [Embedded Image Not Available] 06/17/22 0310: [Embedded Image Not Available] 06/16/22 2240: [Embedded Image Not Available] 06/16/22 1810: [Embedded Image Not Available] Microbiology: 06/15 1800 NASAL: MSSA Surveillance Screen - RES 06/15 1800 NASAL: MRSA DNA Surveillance Screen - RES 06/16 1731 NASAL: MSSA Surveillance Screen - ORD 06/16 1731 NASAL: MRSA DNA Surveillance Screen - ORD Radiology data Recent Impressions: RADIOLOGY - XR CHEST 1 V 06/17 0002 Report Impression - Status: SIGNED Entered: 06/17/2022 0906 IMPRESSION: Shallow inspiration with mild atelectatic change s primarily on the left. Impression By: Laura1 - Alfonso Garay M.D. Free Text Obj Notes Free Text Obj Notes: GEN: female in no acute distress, interactive an d conversational HEENT: Atraumatic, normocephalic, moist mucous m embranes NECK: Supple, good range of motion, no tendernes s LUNGS: Symmetrical air entry, no acute respirato ry distress CV: S1, S2 regular rate and rhythm GI: Abdomen is soft, not tender or distended EXT/Musc: No edema or cyanosis. Pedal pulses pre sent Skin: Surgical site clean, dry and intact. Warm to touch NEURO: Awake, alert and oriented x3. No facial d jovani or focal deficit Treatment Prophylaxis Treatment Prophylaxis Drain(s)/tube(s): Drain(s)/tube(s): chest Diagnosis, Assessment Plan Hospital course to date: 67 yo F admitted to CVICU s/p CABG x4(LIN-LAD, SVG-Elisabet, SVG-OM, SVG-PDA) ALAA EVH (RGSV) Posterior pericardiotomy Acute pulm insufficiency following thoracic surg kimberli Diabetes mellitus with hemoglobin A1c 8.3 Acute blood loss anemia from surgery Neuro: keep off sedation, multimodal pain contro l, neurologically at baseline Respiratory: On 2 L nasal cannula wean down as t olerated. Patient has underlying PAULO. We will start her on CPAP. She d oes not know her settings. Continue ipratropium nebs. ABG and chest x-ray r eviewed. Cardiovascular: Patient still continues to be hy pertensive. Levophed was switched to dopamine to help with renal perfusio n and blood pressure. Renal: Patient's creatinine increased slightly f rom 1-1.2. Decreased urine output. On dopamine creatini ne is stabilized but urine output is still about 30 -35 ID: trend WBC, cont periop ABx per protocol GI: Continue bowel regimen. Abdomen is soft. Carolyne erating diet. LFTs stable. Hem: Transfuse 1 more unit. Monitor the chest tu bes output. Keep the chest tubes in for today. Endo: BG control with insulin gtt per protocol, endocrine consult Misc: PTOT consult, DVT and GI ppx with DAPT and PPI DisPosition is home her will stay with h er Total critical care time 48 minutes spent treati ng the patient excluding any procedures performed Free text A P: 67 yo F admitted Electronically Signed by Srinivas Berry MD on 0 06/18/22 at 1521 [facility] #:[id number] END OF REPORT 2022-06-17 17:30:00-00:00 [id number] [place] [address] PATIENT NAME: KALA TURPIN ADMIT DATE: 06/15/22 ACCOUNT NO: [id number] ROOM NO: [id number] AGE: 67 REPORT TYPE: CONSULTATION REPORT SEX: F ADMITTING PHYSICIAN:LOUIS, GENERIC FOR EDM ATTENDING PHYSICIAN:Bang Patel MD CONSULTATION DATE: ENDOCRINE CONSULTATION PATIENT OF: Dr. Murrell and Dr. Rogel. Thank you very much for referring this patient. HISTORY OF PRESENT ILLNESS: This patient is a 67 -year-old white female who is referred to me for evaluation and manage ment of diabetes mellitus. The patient reportedly is a known diabet ic for almost 15-20 years and takes 70/30 insulin 20 units in the morning and about 30 units with sup per time. The patient was admitted to the hospital because of chest pain. She had multiple coronary stents done in the past and she underwent bypass surgery. She also has a history of peripheral arteri al disease. She had non-Hodgkin's lymphoma in 2006. The patient also has a history of obstructive p ulmonary disease and Charcot joint disease. Postop, the patient is stable. He r blood sugars have been fluctuating between 188-172. Her hemoglobin A1c was 8.3. PHYSICAL EXAMINATION: GENERAL: Today, the patient is alert, aw analia, a little bit apprehensive. She is moderately overweight. VITAL SIGNS: Heart rate is around 70, blood pres sure is 110/70 mmHg. HEENT: Essentially unremarkable. NECK: Thyroid is palpable. Clinically, she is ne ar euthyroid. CHEST: Diminished bilateral vesicular breathing. She has decreased breath sounds on both sides and the chest tubes are still in. She has bilateral pedal edema. NEUROLOGIC: She has evidence of diabetic sensorimotor neuropathy in both lower extremities. CLINICAL IMPRESSION: Diabetes mellitus type 2 wi th complications, coronary artery disease, status post coronary artery bypa ss graft, hypertension, and history of non-Hodgkin lymphoma. PLAN: At this time is to adjust her insulin drip settings, monitor her blood sugars closely, and we will also check a thyroid profile. Thanks again for referring this patient. I will be following this patient with you. Dictated By: Jurgen Wolf MD PATIENT NAME: KALA TURPIN 18 Date Dictated: 06/17/2022 17:30:54 Date Transcribed: 06/17/2022 20:20:26 /WILBERTO Receipt ID: [id number] Authenticated by Jeanine Wolf MD On 08:29:13 PM Electronically Signed by Jurgen Wolf MD on at 0829 PATIENT NAME: KALA TURPIN 18 2022-06-17 09:59:00-00:00 [facility] Cardiothoracic Surgery Prog REPORT#:[id number] REPORT STATUS: Signed DATE:06/17/22 TIME: 958 PATIENT: KALA TURPIN UNIT #: [id number] ROOM/BED: [place] [address] : 57 AGE: 67 SEX: F ATTEND: Rosa Murrell MD ADM AUTHOR: Kassie Aden * ALL edits or amendments must be made on the [employer]/computer document * General Post-op: day 1 Status post: 06/16/22 CABG x 4 (LIN-LAD, SVG-Elisabet, SVG-OM, SVG-PDA) ALALeela SPICER (RGSV) Posterior pericardiotomy Subjective Chief complaint: severe CAD s/p CABG Review of Systems Constitutional: Reports: generalized weakness. Denies: chills, f atigue. Skin: Denies: diaphoresis, ecchymosis, laceration. Allergy/Immun: Denies: anaphylaxis, hives, rhinorrhea. Eyes: Denies: discharge, itching, eye pain. ENT: Denies: earache, mouth pain, throat pain, tootha spencer. Respiratory: Denies: pneumonia, SOB, wheezing. Cardiovascular: Denies: chest pain, palpitations. GI: Denies: abdominal pain, nausea, vomiting. : Denies: dysuria, flank pain. Musculoskeletal: Denies: extremity pain. Heme: Denies: petechiae. Endocrine: Denies: cold intolerance, polyphagia, weight los s. Neuro: Denies: change in LOC, dizziness, seizure, synco pe, unable to speak. All systems rev neg: except as marked (in the HP I) Objective General VS/I O Last Documented: Result Date Time B/P 120/58 06/17 0815 B/P Mean 84 06/17 08 Pulse Ox 97 06/17 08 Temp 98.8 06/17 08 Pulse 69 06/17 0815 Resp 9 06/17 0815 O2 Delivery Nasal cannula 06/17 0800 O2 Flow Rate 2 06/17 0800 FiO2 40 06/16 1748 24 hour I O ending at 0700: 06/17 0700 06/16 1900 Intake Total 2573.00 3185.00 Output Total 695 2035 Balance 1878.00 1150.00 Intake, IV 1423.00 1185.00 Intake, Oral 800 Intake, Other 2000 Intake, 350 Packed Cells Output, Chest 195 165 Tube Drainage Output, Urine 500 1870 Patient 222 lb 219 lb Weight Weight Bed scale Bed scale Measurement Method PATIENT WEIGHT: Weight (lb): 222 Weight (oz): 0.09 Weight (kg): 100.700 Dietitian Nutrition assessment The data set between the solid lines has been im ported from the dietitian's assessment. BMI Calculated: 41.9 Nutrition related diagnosis: Morbid obesity Nutrition diagnosis details: BMI 40 or more Nutrition problem: Increased nutrient needs Nutrition etiology: SURGERY Nutrition signs and symptoms: ESTIMATED NEEDS Nutrition prescription: ADAT TO REGULAR DIET S/P EXTUBATION IF PO INTAKE <50% CONSIDER ONS Dietitian name: Kostas Beach, DIET Assessment completed: 06/16/22 Physical Exam General appearance: alert, awake, oriented Wound/incision: Location: sternal Site condition: dressing clean dry, dressing in tact HEENT: anicteric, mucosal membranes moist, pupil s reactive to light Neck: full range of motion, non-tender, supple/n o meningismus Cardiovascular: normal heart sounds, regular rat e rhythm Respiratory: decreased breath sounds, aerating w ell, symmetric expansion, no distress Abdomen: soft, non-tender Genitourinary: staples, urine Extremities: dry, moves all Musculoskeletal: full range of motion 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, oriented X 3 Skin: dry, intact Psychiatry: normal affect, normal mood Current Medications Medications: Active Meds + DC'd Last 24 Hrs Ipratropium [place] (ATROVENT) 500 MCG Q2H PRN P RN INH Cyanocobalamin (Vitamin B-12 500 mcg tab) 500 MC G DAILY PO Ferrous Sulfate (FERROUS SULFATE) 325 MG DAILY P O Bisacodyl (DULCOLAX) 10 MG ONCE PRN RECTAL Magnesium Hydroxide (MILK OF MAGNESIA) 30 ML ONC E PRN PO Clopidogrel Bisulfate (Plavix) 75 MG DAILY PO Polyethylene Glycol (MIRALAX) 17 GM DAILY PO Albumin Human (ALBUMINAR 5% 12.5GM/250ML) 250 ML ONCE ONE IV (DC) Pantoprazole (PROTONIX) 40 MG DAILY@0600 PO Docusate Sodium (COLACE) 100 MG BID PO Gabapentin (NEURONTIN) 200 MG BID PO Metoprolol Tartrate (LOPRESSOR) 12.5 MG Q12HR P O Mupirocin (BACTROBAN 2% 22 GM OINTMENT) 1 APPLIC BID NASAL Sennosides (Senna Lax 8.6 MG TABLET) 17.2 MG BED TIME PO Aspirin (ASPIRIN) 81 MG DAILY PO Amiodarone HCl (CORDARONE) 200 MG TID PO Cefazolin Sodium (KEFZOL OR ANCEF) 6 GM ONCE ONE IV (DC) Sodium Chloride (SODIUM CHLORIDE 0.9%) 500 ML Fentanyl Citrate (SUBLIMAZE) 50 MCG ONCE ONE IV (DC) Fentanyl Citrate (SUBLIMAZE) 0 .STK-MED ONE IV ( DC) Acetaminophen (TYLENOL) 650 MG Q4H PRN PRN PO Acetaminophen (TYLENOL) 650 MG Q4H PRN PRN RECTA L Albumin Human (ALBUMINAR 25%) 25 GM ASDIR PRN IV Calcium Chloride (CALCIUM CHLORIDE) 1 GM ASDIR P RN IV Chlorhexidine Gluconate (PERIDEX) 15 ML Q2H MM ( DC) Dextrose/Water (DEXTROSE 10% IN WATER) 125 ML DIR PRN IV (CKD) Dextrose/Water (DEXTROSE 10% IN WATER) 250 ML A SDIR PRN IV (CKD) Epinephrine (ADRENALIN CHLORIDE) 4 MG ASDIR IV Dextrose/Water (DEXTROSE 5% WATER) 246 ML Glucagon (GLUCAGON) 1 MG ASDIR PRN IM Insulin Human Regular (HumuLIN R) 100 UNIT ASDIR IV (CKD) Sodium Chloride (SODIUM CHLORIDE 0.9%) 99 ML Ipratropium [place] (ATROVENT) 500 MCG RTQ4H INH Magnesium Sulfate (MAGNESIUM SULFATE 4GM/SWFI 10 0ML) 100 ML ASDIR PRN IV Magnesium Sulfate (MAGNESIUM SULFATE 2GM/SWFI 50 ML) 50 ML ASDIR PRN IV Magnesium Sulfate/Dextrose (MAGNESIUM SULFATE 1G M/D5W 100ML) 100 ML ASDIR PRN IV Morphine Sulfate (morphine SULFATE) 4 MG Q2H PRN PRN IV Nitroglycerin/Dextrose (NITROGLYCERIN 50,000MCG/ D5W 250ML) 250 ML ASDIR IV Norepinephrine Bitartrate (NOREPINEPHRINE 8 MG/N S 250 ML) 250 ML TITRATE IV Ondansetron HCl (ZOFRAN) 4 MG Q6H PRN PRN IV Oxycodone HCl (ROXICODONE) 5 MG Q4H PRN PRN PO Oxycodone HCl (ROXICODONE) 10 MG Q4H PRN PRN PO Potassium Chloride (KCL 20MEQ/SWFI 100ML) 100 ML ASDIR PRN IV Sodium Bicarbonate (SODIUM BICARBONATE) 50 MEQ A SDIR PRN IV Sodium Chloride (SODIUM CHLORIDE 0.9%) 1,000 ML .Q20H IV Sodium Chloride (SODIUM CHLORIDE 0.9%) 250 ML Q2 4H IV Sodium Bicarbonate (SODIUM BICARBONATE) 0 .STK-M ED ONE IV (DC) Albumin Human (ALBUMINAR-25%) 100 ML .STK-MED ON E IV (DC) Dexamethasone Sodium Phosphate (DECADRON) 0 .STK -MED ONE .ROUTE (DC) Glycopyrrolate (GLYCOPYRROLATE) 0 .STK-MED ONE . ROUTE (DC) Neostigmine Methylsulfate (PROSTIGMIN) 0 .STK-ME D ONE .ROUTE (DC) Ondansetron HCl (ZOFRAN) 0 .STK-MED ONE .ROUTE ( DC) Cefazolin Sodium (KEFZOL OR ANCEF) 2 GM PREOP PYRIDINE RECOVERY OPERATOR IV (DC) Vancomycin HCl (VANCOMYCIN HCL) 1,500 MG PREOP O NCALL IV (DC) Sodium Chloride (SODIUM CHLORIDE 0.9%) 250 ML Verapamil HCl (ISOPTIN) 16.6 MG .Q24H ONE IV (DC ) Heparin Sodium (Porcine) (HEPARIN SODIUM) 1,660 UNIT Sodium Bicarbonate (SODIUM BICARBONATE) 0.7 ML Nitroglycerin/Dextrose (NITROGLYCERIN 50MG/D5W 250ML) 8.3 MG Lactated Ringer's (LACTATED RINGERS) 949.5 ML Insulin Glargine (Lantus/Semglee) 15 UNIT BEDTIM E SUBQ (DC) Atorvastatin Calcium (LIPITOR) 40 MG 2100 PO Melatonin (Melatonin) 6 MG BEDTIME PO Acetaminophen (TYLENOL EXTRA STRENGTH) 1,000 MG PREOP ONCALL PO (DC) Gabapentin (NEURONTIN) 200 MG PREOP ONCALL PO (D C) Sodium Chloride (SODIUM CHLORIDE) 20 ML ASDIR IV Hydrocodone Bitart/Acetaminophen (NORCO 5/325) 1 TAB Q4H PRN PRN PO (DC) Aspirin (ASPIRIN) 81 MG DAILY PO (DC) Metoprolol Tartrate (LOPRESSOR) 12.5 MG Q12HR PO (DC) Insulin Human Lispro (HUMALOG) 0 AC HS SUBQ (DC) Acetaminophen (TYLENOL) 650 MG Q4H PRN PRN PO Dextrose/Water (DEXTROSE 10% IN WATER) 125 ML DIR PRN IV (DC) Dextrose/Water (DEXTROSE 10% IN WATER) 250 ML DIR PRN IV (DC) Glucagon (GLUCAGON) 1 MG ASDIR PRN IM (DC) Magnesium Hydroxide (MILK OF MAGNESIA) 30 ML BED TIME PRN PRN PO (DC) Ondansetron HCl (ZOFRAN) 4 MG Q6H PRN PRN IV (DC ) Results Findings/Data: Laboratory Tests 06/17 06/16 06/16 0315 1740 1556 Blood Gas Puncture Site Art Line Art Line Art Line O2 Saturation (90 - 100 %) 98.6 99.4 98.9 ABG pH (7.35 - 7.45) 7.336 L 7.513 *H 7.438 ABG pCO2 (35.0 - 45 mmHg) 48.3 H 33.7 L 40.1 ABG pO2 (80 - 100.0 mmHg) 127.7 H 140.6 H 122.8 H ABG PO2/FiO2 Ratio (mm/Hg) 351.50 307.00 ABG HCO3 (22.0 - 26.0 MMOL/L) 25.8 27.1 H 27.2 H ABG Total CO2 27.2 28.1 28.5 ABG Base Excess (-4.0 - 4.0 MMOL/L) 0.0 4.1 H 3 .0 ABG Hematocrit (33.0 - 45.0 %) 23 L 18 L 18 L ABG Hemoglobin (11.0 - 15.0 G/DL) 7.7 L 6.3 L 6.0 L Sodium (134 - 147 mmol/L) 145 148 H 146 Potassium (3.4 - 5.0 mmol/L) 4.7 3.8 4.1 Chloride (100 - 108 mmol/L) 106 108 109 H Ionized Calcium (1.12 - 1.32 MMOL/L) 1.22 1.30 1.30 Lactic Acid (0.9 - 1.7 mmol/l) 1.4 Temperature (F) 99.1 98.8 98.1 O2 Delivery Device HFNC Adult Vent Adult Vent Vent Mode CPAP/PS AC Vent Rate (/MIN) 10 20 FiO2 (%) 40 40 Tidal Volume (ml) 450 PEEP (cmH2O) 5 5 Pressure Support (cmH2O) 10 06/16 06/16 06/16 06/16 1400 1216 1144 1042 Blood Gas Puncture Site Art Line Art Line O2 Saturation (90 - 100 %) 97.7 98.4 99.9 99.8 ABG pH (7.35 - 7.45) 7.259 *L 7.248 *L 7.358 7. 424 ABG pCO2 (35.0 - 45 mmHg) 55.4 *H 48.3 H 35.7 4 1.1 ABG pO2 (80 - 100.0 mmHg) 113.9 H 127.7 H 334.3 *H 243.5 *H ABG PO2/FiO2 Ratio (mm/Hg) 284.75 212.83 ABG HCO3 (22.0 - 26.0 MMOL/L) 25.0 21.3 L 20.1 L 26.9 H ABG Total CO2 26.7 22.8 21.2 28.1 ABG Base Excess (-4.0 - 4.0 -2.2 -6.2 L -4.9 L 2.2 MMOL/L) ABG Hematocrit (33.0 - 45.0 %) 19 L 18 L 22 L 2 4 L ABG Hemoglobin (11.0 - 15.0 G/DL) 6.6 L 6.1 L 7 .6 L 8.0 L Oswaldo Test N/A Sodium (134 - 147 mmol/L) 146 145 142 142 Potassium (3.4 - 5.0 mmol/L) 3.3 L 3.6 3.8 4.2 Chloride (100 - 108 mmol/L) 108 111 H 110 H 104 Ionized Calcium (1.12 - 1.32 1.33 H 1.41 H 1.47 H 1.08 L MMOL/L) Lactic Acid (0.9 - 1.7 mmol/l) 6.0 *H 3.0 H 2.7 H Temperature (F) 97.5 97.3 O2 Delivery Device Adult Vent Adult Vent Vent Mode CPAP/PS AC Vent Rate (/MIN) 9 15 FiO2 (%) 40 60 Tidal Volume (ml) 450 PEEP (cmH2O) 5 5 Pressure Support (cmH2O) 10 06/16 1012 Blood Gas O2 Saturation (90 - 100 %) 99.9 ABG pH (7.35 - 7.45) 7.463 H ABG pCO2 (35.0 - 45 mmHg) 38.0 ABG pO2 (80 - 100.0 mmHg) 304.9 *H ABG HCO3 (22.0 - 26.0 MMOL/L) 27.2 H ABG Total CO2 28.4 ABG Base Excess (-4.0 - 4.0 MMOL/L) 3.2 ABG Hematocrit (33.0 - 45.0 %) 26 L ABG Hemoglobin (11.0 - 15.0 G/DL) 8.8 L Sodium (134 - 147 mmol/L) 143 Potassium (3.4 - 5.0 mmol/L) 4.4 Chloride (100 - 108 mmol/L) 103 Ionized Calcium (1.12 - 1.32 MMOL/L) 1.06 L Lactic Acid (0.9 - 1.7 mmol/l) 2.6 H Laboratory Tests 06/17 06/17 06/17 06/17 06/16 0810 0315 0310 0222 2304 Chemistry Sodium (134 - 147 mEq/L) 146 Potassium (3.4 - 5.0 mEq/L) 4.8 Chloride (100 - 108 mEq/L) 115 H Carbon Dioxide (21 - 33 mEq/l) 27 Anion Gap (0 - 20) 9 BUN (7 - 18 mg/dL) 18 Creatinine (0.6 - 1.3 mg/dL) 1.0 POC Creatinine (0.6 - 1.0 mg/dL) 1.0 Glomerular Filtr Rate (80 - 90) 62.5 L Glucose (70 - 110 mg/dL) 258 H POC Glucose (70 - 110 MG/DL) 178 H 222 H 180 H POC Glucose (mg/dL) (70 - 110 MG/DL) 237 H Calcium (8.0 - 10.5 mg/dL) 8.4 Ionized Calcium Jonas (1.09 - 1.30 MMOL/L) 1.18 Magnesium (1.80 - 2.40 mg/dL) 1.87 Total Bilirubin (0.0 - 1.0 mg/dL) 0.60 Direct Bilirubin (0.0 - 0.30 MG/DL) 0.30 Indirect Bilirubin (MG/DL) 0.30 AST (15 - 37 IUnit/L) 51 H ALT (30 - 65 IUnit/L) 15 L Total Alk Phosphatase (20 - 125 IUnit/L) 51 Total Protein (6.4 - 8.2 g/dL) 5.3 L Albumin (3.4 - 5.0 g/dL) 3.40 06/16 06/16 06/16 06/16 06/16 2240 2101 1810 1740 1556 Chemistry Sodium (134 - 147 mEq/L) 148 H 146 Potassium (3.4 - 5.0 mEq/L) 4.7 4.0 Chloride (100 - 108 mEq/L) 116 H 112 H Carbon Dioxide (21 - 33 mEq/l) 26 26 Anion Gap (0 - 20) 11 12 BUN (7 - 18 mg/dL) 17 16 Creatinine (0.6 - 1.3 mg/dL) 1.0 1.0 POC Creatinine (0.6 - 1.0 mg/dL) 2.2 H 1.0 Glomerular Filtr Rate (80 - 90) 62.5 L 62.5 L Glucose (70 - 110 mg/dL) 210 H 193 H POC Glucose (70 - 110 MG/DL) 186 H POC Glucose (mg/dL) (70 - 110 MG/DL) 178 H 168 H Calcium (8.0 - 10.5 mg/dL) 8.3 8.6 06/16 06/16 06/16 06/16 06/16 1400 1312 1216 1215 1144 Chemistry Sodium (134 - 147 mEq/L) 148 H Potassium (3.4 - 5.0 mEq/L) 3.8 Chloride (100 - 108 mEq/L) 115 H Carbon Dioxide (21 - 33 mEq/l) 24 Anion Gap (0 - 20) 13 BUN (7 - 18 mg/dL) 18 Creatinine (0.6 - 1.3 mg/dL) 0.9 POC Creatinine (0.6 - 1.0 mg/dL) 1.0 0.9 0.8 Glomerular Filtr Rate (80 - 90) 71.0 L Glucose (70 - 110 mg/dL) 248 H POC Glucose (70 - 110 MG/DL) 232 H POC Glucose (mg/dL) (70 - 110 MG/DL) 230 H 236 H 202 H Calcium (8.0 - 10.5 mg/dL) 9.0 Magnesium (1.80 - 2.40 mg/dL) 2.74 H 06/16 06/16 1042 1012 Chemistry POC Creatinine (0.6 - 1.0 mg/dL) 0.8 0.8 POC Glucose (mg/dL) (70 - 110 MG/DL) 173 H 171 H Laboratory Tests 06/16 06/16 06/16 06/16 1215 1146 1044 1015 Coagulation INR (0.8 - 1.2) 1.5 H PTT (Pender) (25.0 - 39.5 Seconds) 30.7 PT Patient/Control Mix (9.3 - 12.9 SECONDS) 16. 9 H Activated Coag Time (74 - 137 SEC) 143 H 618 H 805 H Laboratory Tests 06/17 06/16 06/16 06/16 0310 2240 1810 1215 Hematology WBC (4.5 - 11.0 x10 3/uL) 12.5 H 10.5 9.8 17.9 H RBC (3.54 - 5.02 x10 6/uL) 2.64 L 2.68 L 2.14 L 2.25 L Hgb (11.0 - 15.0 g/dL) 8.0 L 8.1 L 6.7 L 7.0 L Hct (33.0 - 45.0 %) 23.5 L 23.6 L 19.4 L 20.7 L MCV (81.0 - 99.0 fL) 89.0 88.1 90.7 92.0 MCH (27.0 - 33.0 pg) 30.3 30.2 31.3 31.1 MCHC (33.0 - 37.0 g/dL) 34.0 34.3 34.5 33.8 RDW (11.5 - 14.5 %) 14.2 13.8 12.7 12.7 Plt Count (150 - 400 x10 3/uL) 77 L 75 L 87 L 1 20 L MPV (7.0 - 9.0 fL) 11.1 H 10.7 H 11.0 H 10.8 H Neut % (Auto) (56.0 - 77.0 %) 85.1 H 87.7 H 87. 4 H 73.5 Lymph % (Auto) (14.0 - 32.0 %) 6.9 L 6.3 L 6.4 L 21.3 [place] % (Auto) (4.8 - 9.0 %) 7.5 5.5 5.8 3.1 L Eos % (Auto) (0.3 - 3.7 %) 0.0 L 0.0 L 0.0 L 0 .9 Baso % (Auto) (0.0 - 2.0 %) 0.1 0.2 0.1 0.2 Neut # (Auto) (2.0 - 7.6 x10 3/uL) 10.68 H 9.19 H 8.58 H 13.15 H Lymph # (Auto) (1.0 - 3.8 x10 3/uL) 0.86 L 0.66 L 0.63 L 3.80 [place] # (Auto) (0.1 - 0.8 x10 3/uL) 0.94 H 0.58 0.57 0.55 Eos # (Auto) (0.0 - 0.2 x10 3/uL) 0.00 0.00 0.0 0 0.16 Baso # (Auto) (0.0 - 0.2 x10 3/uL) 0.01 0.02 0. 01 0.04 Abs Immat Gran (auto) (0.00 - 0.03 x10 3/uL) 0. 05 H 0.03 0.03 0.18 H Add Manual Diff NO NO NO NO Immature Gran % (0.0 - 2.0 %) 0.4 0.3 0.3 1.0 Nucleated RBC % (0 - 0 %) 0.0 0.0 0.0 0.0 Nucleated RBCs # (Man) (0.0 - 0.1 x10 3/uL) 0.0 0 0.00 0.00 0.00 Platelet Estimate ([facility] [employer]OUS[facility]) 88-110 Radiology data: Recent Impressions: RADIOLOGY - XR CHEST 1 V 06/16 1513 Report Impression - Status: SIGNED Entered: 06/16/2022 1606 IMPRESSION: 1. Satisfactory position of lines and tubes. 2. Low lung volumes with possible mild vascular congestion. Mild atelectasis in the left upper-mid lung. Impression By: [email or web address] - Fabian Larry M.D. RADIOLOGY - XR CHEST 1 V 06/17 0002 Report Impression - Status: SIGNED Entered: 06/17/2022 0906 IMPRESSION: Shallow inspiration with mild atelectatic change s primarily on the left. Impression By: [email or web address] - Alfonso Garay M.D. Results: labs reviewed, vital signs stable, marquise milton personally rev'd, x-ray personally reviewed, current med profile rev'd Treatment Prophylaxis Treatment Prophylaxis Oxygen: nasal cannula CVC/PICC documentation: The data below has been imported from nursing do [facility]. Any exceptions have been noted below under Provider comments. CVC/PICC insertion date/time: CVC multi lumen tr iple Internal jugular Right Inserted 06/16/22 0710 Provider comments on imported nursing data: [] Drain(s)/tube(s): Drain(s)/tube(s): chest Diagnosis, Assessment Plan Hospital course to date: Very pleasant 67-year-old female with past medic al history of stroke, hypertension, hyperlipidemia, diabetes (on insul in), obstructive sleep apnea, PAD, 2 MIs in the past statu s post PCI/stenting (on Plavix at home), NonHodgkin' s lymphoma (2006) who was at home working on her computer when she suddenly developed severe chest pain radiating to left sh oulder and jaw. Presented to the emergency room, was evaluated by car diology and underwent left heart cath. Coronary angiogram revealed severe multivessel coronary artery disease involving LAD which is totally occluded after the midporti on; diagonal OM branch with proximal stenosis 60 to 70%, left circumflex wit h 80-90% stenosis. Patient transferred to [facility] for surgical revasc ularization. PLAN Coronary angiogram images re viewed with Dr. Rogel and findings discussed with the patient. Will benefit from surgical revascul arization. Initiate preop work-up for CABG Hold Plavix. Obtain platelet response test to Pl avix Carotid ultrasound Noncontrasted chest BLE venous Doppler for vein mapping and marking Completed echocardiogram Incentive spirometer teaching Physical therapy evaluation given Charcot syndro me and limited mobilization Further recommendations to follow. 06/16/22 CABG x 4 (LIN-LAD, SVG-Elisabet, SVG-OM, SVG-PDA) RUBEN SPICER (RGSV) Posterior pericardiotomy 06/17/22 POD 1 Patient is alert and oriented, out of bed in dulce ir Labile blood pressure. Minimal pressor requireme nts, levo at 1, wean off as tolerated Transfuse 1 unit PRBC On 2l nasal cannula, encoura ge incentive spirometer use, nebs and deep breathing NSR on nutrition coordinator, no ectopy, epicardial pa cing wires on standby Keep both chest tubes and monitor outputs Cardiac diet Glycemic control on insulin drip, monitor blood sugars, consult endocrinology Bowel regimen protocol PT/OT DVT prophylaxis with SCDs and SQ heparin, GI pro phylaxis with PPI Monitor patient in CVICU Patient seen with Dr. Rogel, plan of care disc ussed with ICU team Plan discussed with: patient , admitting physician, consultants, nurse, interdisc care team at 1417 at 1808 RPT #:[id number] END OF REPORT 2022-06-17 09:33:00-00:00 [id number] [place] [address] PATIENT NAME: KALA TURPIN ADMIT DATE: 06/15/22 ACCOUNT NO: [id number] ROOM NO: [facility] AGE: 67 REPORT TYPE: eECHOCARDIOGRAM REPORT SEX: F ADMITTING PHYSICIAN:MAYRA MYERS FOR EDM ATTENDING PHYSICIAN:Reva Murrell MD *[place] [address] Transthoracic Echocardiogram Patient: Kala Turpin Study Date: 06/15/2022 BP: 131 / 60 Location: [facility] URN: [id number] : 1955 Age: 67 Height: 61 in / 154.9 cm Gender: F Weight: 205 .6 lb / 93.4 kg BMI/BSA: 38.9 kg/m 2 / 1.91 m 2 *Ordering Physician: * Kassie Aden *Interpreting Physician: * Julius Washington MD *Strickler Attendant: * Audrey Rodríguez Indications: Pre-CABG Evaluation. Study data: Transthoracic echocardiogram. Proced ure: Transthoracic echocardiography was performed. Image quality wa s adequate. Complete 2D, complete spectral Doppler, and color Doppler . Location: Bedside. Patient status: Inpatient. Patient room number: 3343. Study status: Routine. Rhythm: Normal sinus rhythm. Findings Left ventricle: The cavity size is normal. Wall thickness is normal. Systolic function is normal. The estimated eject ion fraction is 60-64%. Wall motion is normal; there are no regional wal l motion abnormalities. The tissue Doppler parameters are abnormal. Left ventricular diastolic function parameters are indeterminate. Right ventricle: Estimated TAPSE is 2.5 cm. The cavity size is normal. PATIENT NAME: KALA TURPIN 16 Systolic function is normal. Systolic pressure i s increased. Left atrium: The atrium is normal in size. Right atrium: The atrium is normal in size. Aorta: Aortic root: The aortic root is normal in size. Aortic valve: The valve is trileaflet. The leafl ets are mildly thickened. There is no evidence of stenosis. The re is no regurgitation. Mitral valve: The valve is structurally normal. There is no evidence of stenosis. There is mild regurgitatio n. Tricuspid valve: Estimated right ventricular sys tolic pressure is 35 mmHg. The valve is structurally normal. There is mild-moderate regurgitation directed toward the septum. Pulmonic valve: The valve is structurally normal . There is no regurgitation. Pericardium: There is no pericardial effusion. Pulmonary arteries: The main pulmonary artery is normal-sized. Systemic veins: Inferior vena cava: The vessel is normal in size . Measurements Left ventricle Value Ref NAYLA, LAX 4.6 cm 3.8 - 5.2 ESD, LAX 3.3 cm 2.2 - 3.5 ESD/bsa, LAX 1.7 cm/m 2 1.3 - 2.1 FS, LAX 29 % 27 - 45 ESD/bsa major 3.0 cm/m 2 --------- ax, A4C NAYLA/bsa minor 3.0 cm/m 2 --------- ax, A4C NAYLA major ax, 7.0 cm --------- A2C ESD major ax, 5.2 cm --------- A2C NAYLA/bsa major 3.6 cm/m 2 --------- ax, A2C ESD/bsa major 2.7 cm/m 2 --------- ax, A2C PW, ED 0.8 cm 0.6 - 0.9 IVS/PW, ED 0.75 --------- EF 56 % 54 - 74 E', lat taty, 8.2 cm/sec >=10.0 TDI E/e', lat taty, 14 --------- TDI E', med taty, 7.1 cm/sec >=7.0 TDI E/e', med taty, 16 --------- TDI E', avg, TDI 7.6 cm/sec --------- E/e', avg, TDI 15 <=14 PATIENT NAME: KALA TURPIN 16 LVOT Value Ref Diam, S 1.61 cm --------- Area 2.0 cm 2 --------- Peak marcelino, S 1.21 m/sec --------- Mean marcelino, S 0.85 m/sec --------- VTI, S 29.9 cm --------- Peak grad, S 6 mm Hg --------- Mean grad, S 3 mm Hg --------- SV 61 ml --------- Qs 3.59 L/min --------- Qs/bsa 1.9 L/(min-m 2) --------- SV/bsa 32 ml/m 2 --------- Ventricular septum Value Ref IVS, ED 0.6 cm 0.6 - 0.9 Right ventricle Value Ref NAYLA, LAX 3.1 cm --------- TAPSE, MM 2.5 cm 1.7 - 3.1 S' lateral 17.2 cm/sec 6.0 - 13.4 RVOT Value Ref Peak v, S 0.73 m/sec --------- Peak grad, S 2 mm Hg --------- Left atrium Value Ref AP dim, ES 3.94 cm 2.70 - 3.80 Vol/bsa, ES, 29 ml/m 2 11 - 40 1-p A4C Vol, ES, 2-p 62 ml --------- Vol/bsa, ES, 32 ml/m 2 16 - 34 2-p Vol/bsa, ES, 30 ml/m 2 16 - 34 A/L AP dim, ES MM 4.8 cm 2.7 - 3.8 LA/Ao root 2.13 --------- ratio, MM Right atrium Value Ref Area, ES 16 cm 2 10 - 18 SI dim, ES, A4C 5.1 cm 3.4 - 5.3 SI dim/bsa, ES, 2.7 cm/m 2 1.9 - 3.1 A4C Vol, ES, A/L 44 ml --------- Vol, ES, 1-p 42 ml --------- A4C Vol/bsa, ES, 22 ml/m 2 9 - 33 1-p A4C Aortic valve Value Ref Leaflet sep, MM 1.72 cm --------- Peak v, S 1.82 m/sec --------- PATIENT NAME: KALA TURPIN 16 Mean v, S 1.24 m/sec --------- VTI, S 39.7 cm --------- Mean grad, S 6.9 mm Hg --------- Peak grad, S 13.3 mm Hg --------- LVOT/AV, VTI 0.75 --------- ratio ELISABETH, VTI 1.53 cm 2 --------- LVOT/AV, Vpeak 0.66 --------- ratio ELISABETH, Vmax 1.35 cm 2 --------- Mitral valve Value Ref Peak E 0.08 m/sec --------- Peak A 0.94 m/sec --------- Decel time 200 ms --------- PHT 50 ms --------- Peak E/A ratio 1.2 --------- MVA, PHT 4.4 cm 2 --------- MR peak v 4.2 m/sec --------- Pulmonic valve Value Ref IL v, ED 0.59 m/sec --------- Tricuspid valve Value Ref TR peak v 2.74 m/sec <=2.8 Peak RV-RA 30 mm Hg --------- grad, S Aortic root Value Ref Root diam, ED 2.27 cm --------- MM Conclusions Summary: 1. Left ventricle: The cavity size is normal. Wa ll thickness is normal. Systolic function is normal. The estimated ejec tion fraction is 60-64%. Wall motion is normal; there are no reg ional wall motion abnormalities. Left ventricular diastolic funct ion parameters are indeterminate. 2. Right ventricle: Systolic pressure is increas ed. 3. Tricuspid valve: Estimated right ventricular systolic pressure is 35 mmHg. There is mild-moderate regurgitation dire cted toward the septum. Prepared and electronically signed by Julius Washington MD 06/17/2022 09:33 PATIENT NAME: KALA TURPIN 16 Electronically Signed by Julius Washington MD on 0 06/17/22 at 0933 PATIENT NAME: KALA TURPIN 16 2022-06-17 04:12:00-00:00 [id number] [place] [address] PATIENT NAME: KALA TURPIN ADMIT DATE: 06/15/22 ACCOUNT NO: [id number] ROOM NO: [facility] AGE: 67 REPORT TYPE: eELECTROCARDIOGRAM REPORT SEX: F ADMITTING PHYSICIAN:LOUIS GENERIC FOR EDM ATTENDING PHYSICIAN:Reva Murrell MD Order: [id number] Test Reason : s/p cabg Test Date/Time Stamp: SunJun 17 2022 04:12:23 Blood Pressure : / mmHG Vent. Rate : 072 BPM Atrial Rate : 072 BPM P-R Int : 136 ms QRS Dur : 072 ms QT Int : 410 ms P-R-T Axes : 070 054 042 degree s QTc Int : 448 ms Normal sinus rhythm Normal ECG When compared with ECG of 16-JUN-2022 12:59, No changes Confirmed by MD WALDROP GERARD ([id number]) on 06/20/19 23 9:25:17 PM Referred By: Self Referred Confirmed by:AMARA NAVARRETE MD Electronically Signed by Amara Waldrop MD on 0 06/19/22 at 1037 PATIENT NAME: KALA TURPIN 16 2022-06-16 17:54:00-00:00 [facility] ([facility]) Critical Care Consult Note REPORT#:[id number] REPORT STATUS: Signed DATE:06/16/22 TIME: 1753 PATIENT: KALA TURPIN UNIT #: [id number] ROOM/BED: [place] [address] : [birth year] AGE: 67 SEX: F ATTEND: Rosa Murrell MD ADM AUTHOR: Srinivas Berry MD * ALL edits or amendments must be made on the el [employer]/computer document * History of Present Illness HPI Requesting clinician: Dr Rogel Reason for consult: s/p CABG x4(LIN-LAD, SVG-Elisabet, SVG-OM, SVG-PDA) ALAA EVH (RGSV) Posterior pericardiotomy Chief complaint: CAD HPI: 67 yo F with PMH of CAD, MA with prior stents 11 years ago, hypertension, diabetes mellitus, CVA, peripheral neuropathy, C harcot's foot,PAULO,nonHodgkins lymphoma in 2006 was admitted to with chest pain. He had a cardiac cath done which showed multivessel coron cathleen artery disease failed attempt to PCI. Patient was then transferred her e for surgical revascularization. Patient underwent CABG x4. SHe was brought to CV ICU intubated on 5 of norepinephrine, 3 of epinephrine. V-pace d. Received 2 L of crystalloids 250 mL of Cell Saver had a good urine output of 900 mL. Patient's Preop EF was about 50%. post op More than 50%. Intra-Op she had lab ile blood pressures sometimes and had very high readings and sometimes very lo w. History - Adult longitudinal Past medical history: Reports: Coronary artery disease, Diabetes melli tus, Hypertension, Ischemic stroke, Prior MA. Denies: Congestive heart failu re, Kidney disease/stones. Additional medical history: Stroke Hypertension Hyperlipidemia Diabetes Obstructive sleep apnea Coronary artery disease Charcot syndrome Non Hodgkin's lymphoma Past surgical history: Reports: Hysterectomy, PCI. 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 Objective Physical Exam VS/I O: Last Documented: Result Date Time B/P 116/58 06/18 1330 B/P Mean 83 06/18 1330 Pulse Ox 98 06/18 1330 Temp 37.3 06/18 1330 Pulse 70 06/18 1330 Resp 12 06/18 1330 O2 Delivery High flow nasal cannula 06/18 1116 O2 Flow Rate 2 06/18 1116 FiO2 40 06/16 1748 24 hour I O ending at 0700: 06/18 0700 06/17 1900 Intake Total 1779.00 Output Total 370 450 Balance -370 1329.00 Intake, IV 469.00 Intake, Oral 720 Intake, Oral 290 Supplement Intake, 300 Packed Cells Output, Chest 20 150 Tube Drainage Output, Urine 350 300 Patient 101.2 kg Weight Weight Bed scale Measurement Method Patient Weight and BMI Weight (kg): 101.200 BMI: 42.2 Medications: Active Meds + DC'd Last 24 Hrs Ipratropium [place] (ATROVENT) 500 MCG Q2H PRN P RN INH Cyanocobalamin (Vitamin B-12 500 mcg tab) 500 MC G DAILY PO Ferrous Sulfate (FERROUS SULFATE) 325 MG DAILY P O Bisacodyl (DULCOLAX) 10 MG ONCE PRN RECTAL Magnesium Hydroxide (MILK OF MAGNESIA) 30 ML ONC E PRN PO Clopidogrel Bisulfate (Plavix) 75 MG DAILY PO Polyethylene Glycol (MIRALAX) 17 GM DAILY PO Pantoprazole (PROTONIX) 40 MG DAILY@0600 PO Docusate Sodium (COLACE) 100 MG BID PO Gabapentin (NEURONTIN) 200 MG BID PO Metoprolol Tartrate (LOPRESSOR) 12.5 MG Q12HR PO Mupirocin (BACTROBAN 2% 22 GM OINTMENT) 1 APPLIC BID NASAL Sennosides (Senna Lax 8.6 MG TABLET) 17.2 MG BED TIME PO Aspirin (ASPIRIN) 81 MG DAILY PO Amiodarone HCl (CORDARONE) 200 MG TID PO Cefazolin Sodium (KEFZOL OR ANCEF) 6 GM ONCE ONE IV (CKD) Sodium Chloride (SODIUM CHLORIDE 0.9%) 500 ML Fentanyl Citrate (SUBLIMAZE) 50 MCG ONCE ONE IV (DC) Fentanyl Citrate (SUBLIMAZE) 0 .STK-MED ONE IV ( DC) Acetaminophen (TYLENOL) 650 MG Q4H PRN PRN PO Acetaminophen (TYLENOL) 650 MG Q4H PRN PRN RECTA L Albumin Human (ALBUMINAR 25%) 25 GM ASDIR PRN IV Calcium Chloride (CALCIUM CHLORIDE) 1 GM ASDIR P RN IV Chlorhexidine Gluconate (PERIDEX) 15 ML Q2H MM ( DC) Dextrose/Water (DEXTROSE 10% IN WATER) 125 ML DIR PRN IV (CKD) Dextrose/Water (DEXTROSE 10% IN WATER) 250 ML DIR PRN IV (CKD) Epinephrine (ADRENALIN CHLORIDE) 4 MG ASDIR IV Dextrose/Water (DEXTROSE 5% WATER) 246 ML Glucagon (GLUCAGON) 1 MG ASDIR PRN IM Insulin Human Regular (HumuLIN R) 100 UNIT ASDIR IV (CKD) Sodium Chloride (SODIUM CHLORIDE 0.9%) 99 ML Ipratropium [place] (ATROVENT) 500 MCG RTQ4H INH Magnesium Sulfate (MAGNESIUM SULFATE 4GM/SWFI 10 0ML) 100 ML ASDIR PRN IV Magnesium Sulfate (MAGNESIUM SULFATE 2GM/SWFI 50 ML) 50 ML ASDIR PRN IV Magnesium Sulfate/Dextrose (MAGNESIUM SULFATE 1G M/D5W 100ML) 100 ML ASDIR PRN IV Morphine Sulfate (morphine SULFATE) 4 MG Q2H PRN PRN IV Nitroglycerin/Dextrose (NITROGLYCERIN 50,000MCG/ D5W 250ML) 250 ML ASDIR IV Norepinephrine Bitartrate (NOREPINEPHRINE 8 MG/N S 250 ML) 250 ML TITRATE IV Ondansetron HCl (ZOFRAN) 4 MG Q6H PRN PRN IV Oxycodone HCl (ROXICODONE) 5 MG Q4H PRN PRN PO Oxycodone HCl (ROXICODONE) 10 MG Q4H PRN PRN PO Potassium Chloride (KCL 20MEQ/SWFI 100ML) 100 ML ASDIR PRN IV Sodium Bicarbonate (SODIUM BICARBONATE) 50 MEQ A SDIR PRN IV Sodium Chloride (SODIUM CHLORIDE 0.9%) 1,000 ML .Q20H IV Sodium Chloride (SODIUM CHLORIDE 0.9%) 250 ML Q2 4H IV Sodium Bicarbonate (SODIUM BICARBONATE) 0 .STK-M ED ONE IV (DC) Albumin Human (ALBUMINAR-25%) 100 ML .STK-MED ON E IV (DC) Dexamethasone Sodium Phosphate (DECADRON) 0 .STK -MED ONE .ROUTE (DC) Glycopyrrolate (GLYCOPYRROLATE) 0 .STK-MED ONE . ROUTE (DC) Neostigmine Methylsulfate (PROSTIGMIN) 0 .STK-ME D ONE .ROUTE (DC) Ondansetron HCl (ZOFRAN) 0 .STK-MED ONE .ROUTE ( DC) Phenylephrine HCl (Phenylephrine PF 500 mg/5 mL Inj) 0 .STK-MED ONE .ROUTE (DC) Dexamethasone Sodium Phosphate (DECADRON) 0 .STK -MED ONE .ROUTE (DC) Ephedrine Sulfate (ePHEDrine sulfate) 0 .STK-MED ONE .ROUTE (DC) Esmolol HCl (BREVIBLOC) 0 .STK-MED ONE IV (DC) Glycopyrrolate (GLYCOPYRROLATE) 0 .STK-MED ONE . ROUTE (DC) Neostigmine Methylsulfate (PROSTIGMIN) 0 .STK-ME D ONE .ROUTE (DC) Ondansetron HCl (ZOFRAN) 0 .STK-MED ONE .ROUTE ( DC) Rocuronium [place] (ZEMURON) 0 .STK-MED ONE IV ( DC) Sevoflurane (ULTANE) 0 .STK-MED ONE INH (DC) Sodium Chloride (SODIUM CHLORIDE 0.9%) 250 ML .S TK-MED ONE IV (DC) Sodium Chloride (SODIUM CHLORIDE 0.9%) 50 ML .ST K-MED ONE IV (DC) Albumin Human (ALBUMINAR-25%) 100 ML .STK-MED ON E IV (DC) Heparin Sodium (HEPARIN SODIUM) 0 .STK-MED ONE . ROUTE (DC) Mannitol (Mannitol 20%) 500 ML .STK-MED ONE IV ( DC) Sodium Chloride (SODIUM CHLORIDE 0.9%) 100 ML .S TK-MED ONE IV (DC) Lidocaine HCl (XYLOCAINE IV) 0 .STK-MED ONE IV ( DC) Magnesium Sulfate (MAGNESIUM SULFATE) 0 .STK-MED ONE IV (DC) Phenylephrine HCl (FILIPPO-SYNEPHRINE 10MG/ML AMP) 0 .STK-MED ONE .ROUTE (DC ) Sodium Bicarbonate (SODIUM BICARBONATE) 0 .STK-M ED ONE IV (DC) Papaverine HCl (PAPAVERINE HCL) 0 .STK-MED ONE I V (DC) Cefazolin Sodium (KEFZOL OR ANCEF) 0 .STK-MED ON E .ROUTE (DC) Aminocaproic Acid (AMICAR) 0 .STK-MED ONE IV (DC ) Epinephrine HCl (EPINEPHrine 4 mg/D5W 250 mL) 25 0 ML .STK-MED ONE IV (DC ) Heparin Sodium (HEPARIN SODIUM) 0 .STK-MED ONE . ROUTE (DC) Insulin Human Regular (HumuLIN R 100 UNITS/NS 10 0ML) 100 ML .STK-MED ONE IV (DC) Nitroglycerin/Dextrose (NITROGLYCERIN 50,000MCG/ D5W 250ML) 250 ML .STK-MED ONE IV (DC) Norepinephrine Bitartrate (NOREPINEPHRINE 8 MG/N S 250 ML) 250 ML .STK-MED ONE IV (DC) Sodium Chloride (SODIUM CHLORIDE 0.9% 100 ML) 10 0 ML .STK-MED ONE IV (DC ) Calcium Chloride (CALCIUM CHLORIDE) 0 .STK-MED O NE IV (DC) Magnesium Sulfate (MAGNESIUM SULFATE) 0 .STK-MED ONE .ROUTE (DC) Protamine Sulfate (PROTAMINE SULFATE) 0 .STK-MED ONE IV (DC) Ropivacaine (NAROPIN 0.5% 150 MG/30mL) 0 .STK-ME D ONE .ROUTE (DC) Tranexamic Acid (Cyklokapron) 0 .STK-MED ONE .RO [place] (DC) Midazolam HCl (VERSED) 0 .STK-MED ONE .ROUTE (DC ) Propofol (DIPRIVAN 200MG/20ML INJECTION) 20 ML . STK-MED ONE IV (DC) Fentanyl Citrate (SUBLIMAZE) 0 .STK-MED ONE IV ( DC) Cefazolin Sodium (KEFZOL OR ANCEF) 2 GM PREOP PYRIDINE RECOVERY OPERATOR IV (DC) Metoprolol Tartrate (LOPRESSOR) 6.25 MG ONCE ONE PO (CAN) Vancomycin HCl (VANCOMYCIN HCL) 1,500 MG PREOP O NCALL IV (CKD) Sodium Chloride (SODIUM CHLORIDE 0.9%) 250 ML Verapamil HCl (ISOPTIN) 16.6 MG .Q24H ONE IV (CK D) Heparin Sodium (Porcine) (HEPARIN SODIUM) 1,660 UNIT Sodium Bicarbonate (SODIUM BICARBONATE) 0.7 ML Nitroglycerin/Dextrose (NITROGLYCERIN 50MG/D5W 250ML) 8.3 MG Lactated Ringer's (LACTATED RINGERS) 949.5 ML Insulin Glargine (Lantus/Semglee) 15 UNIT BEDTIM E SUBQ (DC) Atorvastatin Calcium (LIPITOR) 40 MG 2100 PO Melatonin (Melatonin) 6 MG BEDTIME PO Acetaminophen (TYLENOL EXTRA STRENGTH) 1,000 MG PREOP ONCALL PO (DC) Gabapentin (NEURONTIN) 200 MG PREOP ONCALL PO (D C) Sodium Chloride (SODIUM CHLORIDE) 20 ML ASDIR IV Hydrocodone Bitart/Acetaminophen (NORCO 5/325) 1 TAB Q4H PRN PRN PO (DC) Aspirin (ASPIRIN) 81 MG DAILY PO (DC) Metoprolol Tartrate (LOPRESSOR) 12.5 MG Q12HR PO (DC) Insulin Human Lispro (HUMALOG) 0 AC HS SUBQ (DC) Acetaminophen (TYLENOL) 650 MG Q4H PRN PRN PO Dextrose/Water (DEXTROSE 10% IN WATER) 125 ML DIR PRN IV (DC) Dextrose/Water (DEXTROSE 10% IN WATER) 250 ML DIR PRN IV (DC) Glucagon (GLUCAGON) 1 MG ASDIR PRN IM (DC) Magnesium Hydroxide (MILK OF MAGNESIA) 30 ML BED TIME PRN PRN PO (DC) Ondansetron HCl (ZOFRAN) 4 MG Q6H PRN PRN IV (DC ) Results Findings/Data: Laboratory Tests 06/16/22 1215: [Embedded Image Not Available] 06/16/22 0257: [Embedded Image Not Available] 06/16/22 0257: [Embedded Image Not Available] Laboratory Tests 06/16 06/16 06/16 1740 1556 1400 Blood Gas Puncture Site Art Line Art Line Art Line O2 Saturation (90 - 100 %) 99.4 98.9 97.7 ABG pH (7.35 - 7.45) 7.513 *H 7.438 7.259 *L ABG pCO2 (35.0 - 45 mmHg) 33.7 L 40.1 55.4 *H ABG pO2 (80 - 100.0 mmHg) 140.6 H 122.8 H 113.9 H ABG PO2/FiO2 Ratio (mm/Hg) 351.50 307.00 284.75 ABG HCO3 (22.0 - 26.0 MMOL/L) 27.1 H 27.2 H 25. 0 ABG Total CO2 28.1 28.5 26.7 ABG Base Excess (-4.0 - 4.0 MMOL/L) 4.1 H 3.0 - 2.2 ABG Hematocrit (33.0 - 45.0 %) 18 L 18 L 19 L ABG Hemoglobin (11.0 - 15.0 G/DL) 6.3 L 6.0 L 6 .6 L Sodium (134 - 147 mmol/L) 148 H 146 146 Potassium (3.4 - 5.0 mmol/L) 3.8 4.1 3.3 L Chloride (100 - 108 mmol/L) 108 109 H 108 Ionized Calcium (1.12 - 1.32 MMOL/L) 1.30 1.30 1.33 H Lactic Acid (0.9 - 1.7 mmol/l) 6.0 *H Temperature (F) 98.8 98.1 97.5 O2 Delivery Device Adult Vent Adult Vent Adult Vent Vent Mode CPAP/PS AC CPAP/PS Vent Rate (/MIN) 10 20 9 FiO2 (%) 40 40 40 Tidal Volume (ml) 450 PEEP (cmH2O) 5 5 5 Pressure Support (cmH2O) 10 10 06/16 06/16 06/16 06/16 1216 1144 1042 1012 Blood Gas Puncture Site Art Line O2 Saturation (90 - 100 %) 98.4 99.9 99.8 99.9 ABG pH (7.35 - 7.45) 7.248 *L 7.358 7.424 7.46 3 H ABG pCO2 (35.0 - 45 mmHg) 48.3 H 35.7 41.1 38.0 ABG pO2 (80 - 100.0 mmHg) 127.7 H 334.3 *H 243. 5 *H 304.9 *H ABG PO2/FiO2 Ratio (mm/Hg) 212.83 ABG HCO3 (22.0 - 26.0 MMOL/L) 21.3 L 20.1 L 26. 9 H 27.2 H ABG Total CO2 22.8 21.2 28.1 28.4 ABG Base Excess (-4.0 - 4.0 MMOL/L) -6.2 L -4.9 L 2.2 3.2 ABG Hematocrit (33.0 - 45.0 %) 18 L 22 L 24 L 26 L ABG Hemoglobin (11.0 - 15.0 G/DL) 6.1 L 7.6 L 8 .0 L 8.8 L Oswaldo Test N/A Sodium (134 - 147 mmol/L) 145 142 142 143 Potassium (3.4 - 5.0 mmol/L) 3.6 3.8 4.2 4.4 Chloride (100 - 108 mmol/L) 111 H 110 H 104 103 Ionized Calcium (1.12 - 1.32 MMOL/L) 1.41 H 1.4 7 H 1.08 L 1.06 L Lactic Acid (0.9 - 1.7 mmol/l) 3.0 H 2.7 H 2.6 H Temperature (F) 97.3 O2 Delivery Device Adult Vent Vent Mode AC Vent Rate (/MIN) 15 FiO2 (%) 60 Tidal Volume (ml) 450 PEEP (cmH2O) 5 06/16 06/16 0940 0716 Blood Gas O2 Saturation (90 - 100 %) 99.9 100.0 ABG pH (7.35 - 7.45) 7.265 *L 7.295 *L ABG pCO2 (35.0 - 45 mmHg) 58.4 *H 46.9 H ABG pO2 (80 - 100.0 mmHg) 300.0 *H 607.2 *H ABG HCO3 (22.0 - 26.0 MMOL/L) 26.5 H 22.8 ABG Total CO2 28.3 24.3 ABG Base Excess (-4.0 - 4.0 MMOL/L) -1.4 -3.9 ABG Hematocrit (33.0 - 45.0 %) 35 38 ABG Hemoglobin (11.0 - 15.0 G/DL) 11.9 13.0 Sodium (134 - 147 mmol/L) 142 142 Potassium (3.4 - 5.0 mmol/L) 3.3 L 3.9 Chloride (100 - 108 mmol/L) 105 103 Ionized Calcium (1.12 - 1.32 MMOL/L) 1.26 1.29 Lactic Acid (0.9 - 1.7 mmol/l) 2.7 H 1.8 H Laboratory Tests 06/16 06/16 06/16 06/16 06/16 1740 1556 1400 1312 1216 Chemistry POC Creatinine (0.6 - 1.0 mg/dL) 2.2 H 1.0 1.0 0.9 POC Glucose (70 - 110 MG/DL) 232 H POC Glucose (mg/dL) (70 - 110 MG/DL) 178 H 168 H 230 H 236 H 06/16 06/16 06/16 06/16 06/16 1215 1144 1042 1012 0940 Chemistry Sodium (134 - 147 mEq/L) 148 H Potassium (3.4 - 5.0 mEq/L) 3.8 Chloride (100 - 108 mEq/L) 115 H Carbon Dioxide (21 - 33 mEq/l) 24 Anion Gap (0 - 20) 13 BUN (7 - 18 mg/dL) 18 Creatinine (0.6 - 1.3 mg/dL) 0.9 POC Creatinine (0.6 - 1.0 mg/dL) 0.8 0.8 0.8 0. 9 Glomerular Filtr Rate (80 - 90) 71.0 L Glucose (70 - 110 mg/dL) 248 H POC Glucose (mg/dL) (70 - 110 MG/DL) 202 H 173 H 171 H 196 H Calcium (8.0 - 10.5 mg/dL) 9.0 Magnesium (1.80 - 2.40 mg/dL) 2.74 H 06/16 06/16 06/16 06/15 0716 0257 0257 1941 Chemistry Sodium (134 - 147 mEq/L) 141 Potassium (3.4 - 5.0 mEq/L) 5.2 H Chloride (100 - 108 mEq/L) 107 Carbon Dioxide (21 - 33 mEq/l) 30 Anion Gap (0 - 20) 9 BUN (7 - 18 mg/dL) 21 H Creatinine (0.6 - 1.3 mg/dL) 1.1 POC Creatinine (0.6 - 1.0 mg/dL) 1.0 Glomerular Filtr Rate (80 - 90) 55.8 L Glucose (70 - 110 mg/dL) 224 H POC Glucose (70 - 110 MG/DL) 313 H POC Glucose (mg/dL) (70 - 110 MG/DL) 315 H Calcium (8.0 - 10.5 mg/dL) 10.0 Phosphorus (2.5 - 4.9 MG/DL) 3.8 Magnesium (1.80 - 2.40 mg/dL) 1.78 L Albumin (3.4 - 5.0 g/dL) 3.40 Laboratory Tests 06/16 06/16 06/16 06/16 1215 1146 1044 1015 Coagulation INR (0.8 - 1.2) 1.5 H PTT (Ruslan) (25.0 - 39.5 Seconds) 30.7 PT Patient/Control Mix (9.3 - 12.9 SECONDS) 16. 9 H Activated Coag Time (74 - 137 SEC) 143 H 618 H 805 H 06/16 06/16 06/16 0942 0719 0558 Coagulation INR (0.8 - 1.2) 1.2 PTT (Pender) (25.0 - 39.5 Seconds) 30.8 PT Patient/Control Mix (9.3 - 12.9 SECONDS) 12. 9 Activated Coag Time (74 - 137 SEC) 949 H 137 Laboratory Tests 06/16 06/16 1215 0257 Hematology WBC (4.5 - 11.0 x10 3/uL) 17.9 H 6.4 RBC (3.54 - 5.02 x10 6/uL) 2.25 L 4.00 Hgb (11.0 - 15.0 g/dL) 7.0 L 12.2 Hct (33.0 - 45.0 %) 20.7 L 36.4 MCV (81.0 - 99.0 fL) 92.0 91.0 MCH (27.0 - 33.0 pg) 31.1 30.5 MCHC (33.0 - 37.0 g/dL) 33.8 33.5 RDW (11.5 - 14.5 %) 12.7 12.5 Plt Count (150 - 400 x10 3/uL) 120 L 156 MPV (7.0 - 9.0 fL) 10.8 H 10.7 H Neut % (Auto) (56.0 - 77.0 %) 73.5 56.8 Lymph % (Auto) (14.0 - 32.0 %) 21.3 31.7 [place] % (Auto) (4.8 - 9.0 %) 3.1 L 8.2 Eos % (Auto) (0.3 - 3.7 %) 0.9 2.5 Baso % (Auto) (0.0 - 2.0 %) 0.2 0.5 Neut # (Auto) (2.0 - 7.6 x10 3/uL) 13.15 H 3.66 Lymph # (Auto) (1.0 - 3.8 x10 3/uL) 3.80 2.04 [place] # (Auto) (0.1 - 0.8 x10 3/uL) 0.55 0.53 Eos # (Auto) (0.0 - 0.2 x10 3/uL) 0.16 0.16 Baso # (Auto) (0.0 - 0.2 x10 3/uL) 0.04 0.03 Abs Immat Gran (auto) (0.00 - 0.03 x10 3/uL) 0. 18 H 0.02 Add Manual Diff NO NO Immature Gran % (0.0 - 2.0 %) 1.0 0.3 Nucleated RBC % (0 - 0 %) 0.0 0.0 Nucleated RBCs # (Man) (0.0 - 0.1 x10 3/uL) 0.0 0 0.00 Laboratory Tests 06/15 1800 Serology SARS-CoV-2 Ag (Rapid) (Negative) Negative Laboratory Tests 06/15 2321 Urines Urine Color (YEL/STRAW) YELLOW Urine Appearance (CLEAR) CLEAR Urine pH (5.0 - 7.0) 5.0 Ur Specific [place] (1.005 - 1.030) 1.024 Urine Protein (NEGATIVE) NEGATIVE Urine Glucose (UA) (NEGATIVE) 3+ H Urine Ketones (NEGATIVE) NEGATIVE Urine Blood (NEGATIVE) NEGATIVE Urine Nitrite (NEGATIVE) NEGATIVE Urine Bilirubin (NEGATIVE) NEGATIVE Urine Urobilinogen (0.2 - 1.0 mg/dL) 0.2 Ur Leukocyte Esterase (NEGATIVE) NEGATIVE Urine RBC (0 - 3 RBC/HPF) 0-3 Urine WBC (0 - 3 WBC/HPF) 0-3 Ur Squamous Epith Cells (NONE SEEN /HPF) 0-5 Urine Bacteria (NONE SEEN /HPF) 4+ H Hyaline Casts (NONE SEEN /LPF) 0-2 Microbiology: 06/15 1800 NASAL: MSSA Surveillance Screen - RES 06/15 1800 NASAL: MRSA DNA Surveillance Screen - RES 06/16 1731 NASAL: MSSA Surveillance Screen - ORD 06/16 1731 NASAL: MRSA DNA Surveillance Screen - ORD Radiology data: Recent Impressions: RADIOLOGY - XR CHEST 1 V 06/16 1513 Report Impression - Status: SIGNED Entered: 06/16/2022 1606 IMPRESSION: 1. Satisfactory position of lines and tubes. 2. Low lung volumes with possible mild vascular congestion. Mild atelectasis in the left upper-mid lung. Impression By: [email or web address] - Fabian Larry M.D. Free Text Obj Notes Free Text Obj Notes: GEN: female in no acute distress, intubated HEENT: Atraumatic, normocephalic, moist mucous m embranes NECK: Supple, good range of motion, no tendernes s LUNGS: Symmetrical air entry, no acute respirato ry distress CV: S1, S2 regular rate and rhythm GI: Abdomen is soft, not tender or distended EXT/Musc: No edema or cyanosis. Pedal pulses pre sent Skin: Surgical site clean, dry and intact. Warm to touch NEURO: Awake, alert and oriented x3. No facial d jovani or focal deficit Diagnosis, Assessment Plan Free text DxA P: 67 yo F admitted to CVICU s/p CABG x4(LIN-LAD, SVG-Elisabet, SVG-OM, SVG-PDA) ALAA EVH (RGSV) Posterior pericardiotomy Acute pulm insufficiency following thoracic surg kimberli Diabetes mellitus with hemoglobin A1c 8.3 Acute blood loss anemia from surgery Neuro: keep off sedation, multimodal pain contro l Respiratory: CPAP as tolerated, plan for extubat ion, ABG and CXR reviewed, patient was extubated within the 6-hour window b ut required a lot of time to wake up. With sedation. He was having a low west te ventilation low tidal volumes. But did wake up appropriately follow co mmands and moves all extremities. Cardiovascular: hypotensive on levo and epi. Wea n down as tolerated. Patient has labile readings. SBP goal <150, CTs to sucti on Renal: strict I/Os, monitor Cr and electrolytes, trend LA, resuscitate as needed GI: bedside swallow then oral diet after extubat ion, BR ID: trend WBC, cont periop ABx per protocol Hem: monitor Hgb and CTs output, transfuse as ne eded, hemoglobin was 6.7 postsurgery since the patient remained on the Le vophed will transfuse 1 unit Endo: BG control with insulin gtt per protocol Misc: PTOT consult, DVT and GI ppx with DAPT and PPI Total critical care time 60 minutes spent treati ng the patient excluding any procedures performed Electronically Signed by Srinivas Berry MD on 0 06/18/22 at 1506 RPT #:[id number] END OF REPORT 2022-06-16 17:48:00-00:00 [facility] Hospitalist Progress Note REPORT#:[id number] REPORT STATUS: Signed DATE:06/16/22 TIME: 1748 PATIENT: KALA TURPIN UNIT #: [id number] ROOM/BED: [place] [address] : 57 AGE: 67 SEX: F ATTEND: Jerri Murrell MD ADM AUTHOR: Reva Murrell MD * ALL edits or amendments must be made on the [employer] document * Subjective Chief complaint: Patient had 5 vessel CABG today. She is in the r oom at this time. She is intubated but does move her extremities and has responsive. She has 2 chest tubes. She is on IV insulin drip, Levophed and a low-dose Filippo-Synephrine. She is on Amicar as well HPI: This is 67-year-old female with past medical his tory of stroke, hypertension, hyperlipidemia, diabetes (on insulin), obstructi ve sleep apnea, PAD, 2 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 Presented to the emergency room, was evaluated by cardiology and underwent left h eart cath. Coronary angiogram revealed severe multivessel coronary artery dise ase involving LAD which is totally occluded after the m idportion; diagonal OM branch with proximal stenosis 60 to 70%, left 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 Patient transferred to [facility] for surgical revascularization. Objective General VS/I O: Vital Signs: Date Time Temp Pulse Resp B/P B/P Pulse O2 O2 Flow FiO2 Mean Ox Delivery Rate 06/16 1530 127/60 87 06/16 1530 98.1 81 5 123/49 71 100 06/16 1515 134/60 87 06/16 1515 98.1 82 8 148/56 83 100 06/16 1500 112/57 80 06/16 1500 97.9 79 6 109/43 61 100 03/24 1445 110/54 77 03/24 1445 97.9 78 3 115/42 60 100 03/24 1440 116/55 76 03/24 1440 97.9 79 4 115/42 61 100 03/24 1431 163/70 101 03/24 1431 97.7 82 7 193/63 99 100 03/24 1415 132/60 86 03/24 1415 97.7 79 10 156/49 73 100 03/24 1400 138/65 93 03/24 1400 97.5 80 12 141/112 119 100 03/24 1345 129/60 86 03/24 1345 97.5 72 9 146/48 72 100 03/24 1330 117/57 79 03/24 1330 97.3 69 16 151/51 72 100 03/24 1315 111/55 79 03/24 1315 97.2 67 20 119/41 57 99 03/24 1300 127/63 91 03/24 1300 97.2 72 16 145/51 70 100 03/24 1253 138/95 107 03/24 1253 97.2 71 13 110/44 58 96 03/24 1249 123/58 83 03/24 1249 97.2 80 17 141/49 66 99 03/24 1245 126/58 83 03/24 1245 97.2 79 19 154/54 72 99 03/24 1231 91/54 70 03/24 1231 97.3 79 25 96/39 52 100 03/24 1228 80 100 40 03/24 1215 53 03/24 1215 97.5 81 35 75/40 21 100 03/24 1213 74/40 52 03/24 1213 97.3 79 57 102/35 45 100 03/24 1206 Ventilator 40 03/24 0359 98.2 51 16 109/66 80.1 96 Room air 03/24 0158 48 8 96 03/24 0100 50 13 94 03/24 0000 51 12 97 03/23 2329 97.9 50 16 127/70 89.1 97 Room air 03/23 2300 52 12 94 03/23 2200 52 12 94 03/23 2100 52 10 94 03/23 2000 55 14 96 03/23 1957 95 Room air 03/23 1943 98.1 55 16 137/71 92.6 94 Room air 03/23 1900 57 20 97 24 hour I O ending at 0700: 06/16 0700 06/15 1900 Intake Total 1000 Output Total Balance 1000 Intake, Oral 1000 Number Voids 4 Patient 209 lb Weight PATIENT WEIGHT: Weight (lb): 218 Weight (oz): 11.18 Weight (kg): 99.200 Medications: Active Meds + DC'd Last 24 Hrs Ipratropium [place] (ATROVENT) 500 MCG Q2H PRN P RN INH Cyanocobalamin (Vitamin B-12 500 mcg tab) 500 MC G DAILY PO Ferrous Sulfate (FERROUS SULFATE) 325 MG DAILY P O Bisacodyl (DULCOLAX) 10 MG ONCE PRN RECTAL Magnesium Hydroxide (MILK OF MAGNESIA) 30 ML ONC E PRN PO Clopidogrel Bisulfate (Plavix) 75 MG DAILY PO Polyethylene Glycol (MIRALAX) 17 GM DAILY PO Pantoprazole (PROTONIX) 40 MG DAILY@0600 PO Docusate Sodium (COLACE) 100 MG BID PO Gabapentin (NEURONTIN) 200 MG BID PO Metoprolol Tartrate (LOPRESSOR) 12.5 MG Q12HR PO Mupirocin (BACTROBAN 2% 22 GM OINTMENT) 1 APPLIC BID NASAL Sennosides (Senna Lax 8.6 MG TABLET) 17.2 MG BED TIME PO Aspirin (ASPIRIN) 81 MG DAILY PO Amiodarone HCl (CORDARONE) 200 MG TID PO Cefazolin Sodium (KEFZOL OR ANCEF) 6 GM ONCE ONE IV (CKD) Sodium Chloride (SODIUM CHLORIDE 0.9%) 500 ML Fentanyl Citrate (SUBLIMAZE) 50 MCG ONCE ONE IV (DC) Fentanyl Citrate (SUBLIMAZE) 0 .STK-MED ONE IV ( DC) Acetaminophen (TYLENOL) 650 MG Q4H PRN PRN PO Acetaminophen (TYLENOL) 650 MG Q4H PRN PRN RECTA L Albumin Human (ALBUMINAR 25%) 25 GM ASDIR PRN I V Calcium Chloride (CALCIUM CHLORIDE) 1 GM ASDIR P RN IV Chlorhexidine Gluconate (PERIDEX) 15 ML Q2H MM ( DC) Dextrose/Water (DEXTROSE 10% IN WATER) 125 ML DIR PRN IV (CKD) Dextrose/Water (DEXTROSE 10% IN WATER) 250 ML DIR PRN IV (CKD) Epinephrine (ADRENALIN CHLORIDE) 4 MG ASDIR IV Dextrose/Water (DEXTROSE 5% WATER) 246 ML Glucagon (GLUCAGON) 1 MG ASDIR PRN IM Insulin Human Regular (HumuLIN R) 100 UNIT ASDIR IV (CKD) Sodium Chloride (SODIUM CHLORIDE 0.9%) 99 ML Ipratropium [place] (ATROVENT) 500 MCG RTQ4H INH Magnesium Sulfate (MAGNESIUM SULFATE 4GM/SWFI 10 0ML) 100 ML ASDIR PRN IV Magnesium Sulfate (MAGNESIUM SULFATE 2GM/SWFI 50 ML) 50 ML ASDIR PRN IV Magnesium Sulfate/Dextrose (MAGNESIUM SULFATE 1G M/D5W 100ML) 100 ML ASDIR PRN IV Morphine Sulfate (morphine SULFATE) 4 MG Q2H PRN PRN IV Nitroglycerin/Dextrose (NITROGLYCERIN 50,000MCG/ D5W 250ML) 250 ML ASDIR IV Norepinephrine Bitartrate (NOREPINEPHRINE 8 MG/N S 250 ML) 250 ML TITRATE IV Ondansetron HCl (ZOFRAN) 4 MG Q6H PRN PRN IV Oxycodone HCl (ROXICODONE) 5 MG Q4H PRN PRN PO Oxycodone HCl (ROXICODONE) 10 MG Q4H PRN PRN PO Potassium Chloride (KCL 20MEQ/SWFI 100ML) 100 ML ASDIR PRN IV Sodium Bicarbonate (SODIUM BICARBONATE) 50 MEQ A SDIR PRN IV Sodium Chloride (SODIUM CHLORIDE 0.9%) 1,000 ML .Q20H IV Sodium Chloride (SODIUM CHLORIDE 0.9%) 250 ML Q2 4H IV Sodium Bicarbonate (SODIUM BICARBONATE) 0 .STK-M ED ONE IV (DC) Albumin Human (ALBUMINAR-25%) 100 ML .STK-MED ON E IV (DC) Dexamethasone Sodium Phosphate (DECADRON) 0 .STK -MED ONE .ROUTE (DC) Glycopyrrolate (GLYCOPYRROLATE) 0 .STK-MED ONE .ROUTE (DC) Neostigmine Methylsulfate (PROSTIGMIN) 0 .STK-ME D ONE .ROUTE (DC) Ondansetron HCl (ZOFRAN) 0 .STK-MED ONE .ROUTE ( DC) Phenylephrine HCl (Phenylephrine PF 500 mg/5 mL Inj) 0 .STK-MED ONE .ROUTE (DC) Dexamethasone Sodium Phosphate (DECADRON) 0 .STK -MED ONE .ROUTE (DC) Ephedrine Sulfate (ePHEDrine sulfate) 0 .STK-MED ONE .ROUTE (DC) Esmolol HCl (BREVIBLOC) 0 .STK-MED ONE IV (DC) Glycopyrrolate (GLYCOPYRROLATE) 0 .STK-MED ONE . ROUTE (DC) Neostigmine Methylsulfate (PROSTIGMIN) 0 .STK-ME D ONE .ROUTE (DC) Ondansetron HCl (ZOFRAN) 0 .STK-MED ONE .ROUTE ( DC) Rocuronium [place] (ZEMURON) 0 .STK-MED ONE IV ( DC) Sevoflurane (ULTANE) 0 .STK-MED ONE INH (DC) Sodium Chloride (SODIUM CHLORIDE 0.9%) 250 ML .S TK-MED ONE IV (DC) Sodium Chloride (SODIUM CHLORIDE 0.9%) 50 ML .ST K-MED ONE IV (DC) Albumin Human (ALBUMINAR-25%) 100 ML .STK-MED ON E IV (DC) Heparin Sodium (HEPARIN SODIUM) 0 .STK-MED ONE . ROUTE (DC) Mannitol (Mannitol 20%) 500 ML .STK-MED ONE IV ( DC) Sodium Chloride (SODIUM CHLORIDE 0.9%) 100 ML .S TK-MED ONE IV (DC) Lidocaine HCl (XYLOCAINE IV) 0 .STK-MED ONE IV ( DC) Magnesium Sulfate (MAGNESIUM SULFATE) 0 .STK-MED ONE IV (DC) Phenylephrine HCl (FILIPPO-SYNEPHRINE 10MG/ML AMP) 0 .STK-MED ONE .ROUTE (DC ) Sodium Bicarbonate (SODIUM BICARBONATE) 0 .STK- MED ONE IV (DC) Papaverine HCl (PAPAVERINE HCL) 0 .STK-MED ONE I V (DC) Cefazolin Sodium (KEFZOL OR ANCEF) 0 .STK-MED ON E .ROUTE (DC) Aminocaproic Acid (AMICAR) 0 .STK-MED ONE IV (DC ) Epinephrine HCl (EPINEPHrine 4 mg/D5W 250 mL) 25 0 ML .STK-MED ONE IV (DC ) Heparin Sodium (HEPARIN SODIUM) 0 .STK-MED ONE . ROUTE (DC) Insulin Human Regular (HumuLIN R 100 UNITS/NS 10 0ML) 100 ML .STK-MED ONE IV (DC) Nitroglycerin/Dextrose (NITROGLYCERIN 50,000MCG/ D5W 250ML) 250 ML .STK-MED ONE IV (DC) Norepinephrine Bitartrate (NOREPINEPHRINE 8 MG/N S 250 ML) 250 ML .STK-MED ONE IV (DC) Sodium Chloride (SODIUM CHLORIDE 0.9% 100 ML) 10 0 ML .STK-MED ONE IV (DC ) Calcium Chloride (CALCIUM CHLORIDE) 0 .STK-MED O NE IV (DC) Magnesium Sulfate (MAGNESIUM SULFATE) 0 .STK-MED ONE .ROUTE (DC) Protamine Sulfate (PROTAMINE SULFATE) 0 .STK-MED ONE IV (DC) Ropivacaine (NAROPIN 0.5% 150 MG/30mL) 0 .STK-ME D ONE .ROUTE (DC) Tranexamic Acid (Cyklokapron) 0 .STK-MED ONE .RO [place] (DC) Midazolam HCl (VERSED) 0 .STK-MED ONE .ROUTE (DC ) Propofol (DIPRIVAN 200MG/20ML INJECTION) 20 ML . STK-MED ONE IV (DC) Fentanyl Citrate (SUBLIMAZE) 0 .STK-MED ONE IV ( DC) Cefazolin Sodium (KEFZOL OR ANCEF) 2 GM PREOP PYRIDINE RECOVERY OPERATOR IV (DC) Metoprolol Tartrate (LOPRESSOR) 6.25 MG ONCE ONE PO (CAN) Vancomycin HCl (VANCOMYCIN HCL) 1,500 MG PREOP O NCALL IV (CKD) Sodium Chloride (SODIUM CHLORIDE 0.9%) 250 ML Verapamil HCl (ISOPTIN) 16.6 MG .Q24H ONE IV (CK D) Heparin Sodium (Porcine) (HEPARIN SODIUM) 1,660 UNIT Sodium Bicarbonate (SODIUM BICARBONATE) 0.7 ML Nitroglycerin/Dextrose (NITROGLYCERIN 50MG/D5W 250ML) 8.3 MG Lactated Ringer's (LACTATED RINGERS) 949.5 ML Insulin Glargine (Lantus/Semglee) 15 UNIT BEDTIM E SUBQ (DC) Atorvastatin Calcium (LIPITOR) 40 MG 2100 PO Melatonin (Melatonin) 6 MG BEDTIME PO Acetaminophen (TYLENOL EXTRA STRENGTH) 1,000 MG PREOP ONCALL PO (DC) Gabapentin (NEURONTIN) 200 MG PREOP ONCALL PO (D C) Sodium Chloride (SODIUM CHLORIDE) 20 ML ASDIR IV Hydrocodone Bitart/Acetaminophen (NORCO 5/325) 1 TAB Q4H PRN PRN PO (DC) Aspirin (ASPIRIN) 81 MG DAILY PO (DC) Metoprolol Tartrate (LOPRESSOR) 12.5 MG Q12HR PO (DC) Insulin Human Lispro (HUMALOG) 0 AC HS SUBQ (DC) Acetaminophen (TYLENOL) 650 MG Q4H PRN PRN PO Dextrose/Water (DEXTROSE 10% IN WATER) 125 ML DIR PRN IV (DC) Dextrose/Water (DEXTROSE 10% IN WATER) 250 ML DIR PRN IV (DC) Glucagon (GLUCAGON) 1 MG ASDIR PRN IM (DC) Magnesium Hydroxide (MILK OF MAGNESIA) 30 ML BED TIME PRN PRN PO (DC) Ondansetron HCl (ZOFRAN) 4 MG Q6H PRN PRN IV (DC ) Physical Exam General appearance: respiratory support Head/Eyes: atraumatic, clear cornea, EOMI, PERRL A Neck: supple/no meningismus Cardiovascular: normal heart sounds, reg ular rate rhythm, no gallop, no murmur , no rub Respiratory: aerating well, clear to auscultatio n Abdomen: non-tender, normal bowel sounds, soft, no distention Extremities: no clubbing, no cyanosis, no edema Musculoskeletal: normal inspection, painless ran ge of motion 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, oriented X 3, CNII-XII intact Skin: dry, intact Results Findings/Data: Laboratory Tests 06/16 06/16 06/16 1740 1556 1400 Blood Gas Puncture Site Art Line Art Line Art Line O2 Saturation (90 - 100 %) 99.4 98.9 97.7 ABG pH (7.35 - 7.45) 7.513 *H 7.438 7.259 *L ABG pCO2 (35.0 - 45 mmHg) 33.7 L 40.1 55.4 *H ABG pO2 (80 - 100.0 mmHg) 140.6 H 122.8 H 113.9 H ABG PO2/FiO2 Ratio (mm/Hg) 351.50 307.00 284.7 5 ABG HCO3 (22.0 - 26.0 MMOL/L) 27.1 H 27.2 H 25. 0 ABG Total CO2 28.1 28.5 26.7 ABG Base Excess (-4.0 - 4.0 MMOL/L) 4.1 H 3.0 - 2.2 ABG Hematocrit (33.0 - 45.0 %) 18 L 18 L 19 L ABG Hemoglobin (11.0 - 15.0 G/DL) 6.3 L 6.0 L 6 .6 L Sodium (134 - 147 mmol/L) 148 H 146 146 Potassium (3.4 - 5.0 mmol/L) 3.8 4.1 3.3 L Chloride (100 - 108 mmol/L) 108 109 H 108 Ionized Calcium (1.12 - 1.32 MMOL/L) 1.30 1.30 1.33 H Lactic Acid (0.9 - 1.7 mmol/l) 6.0 *H Temperature (F) 98.8 98.1 97.5 O2 Delivery Device Adult Vent Adult Vent Adult Vent Vent Mode CPAP/PS AC CPAP/PS Vent Rate (/MIN) 10 20 9 FiO2 (%) 40 40 40 Tidal Volume (ml) 450 PEEP (cmH2O) 5 5 5 Pressure Support (cmH2O) 10 10 06/16 06/16 06/16 06/16 1216 1144 1042 1012 Blood Gas Puncture Site Art Line O2 Saturation (90 - 100 %) 98.4 99.9 99.8 99.9 ABG pH (7.35 - 7.45) 7.248 *L 7.358 7.424 7.463 H ABG pCO2 (35.0 - 45 mmHg) 48.3 H 35.7 41.1 38.0 ABG pO2 (80 - 100.0 mmHg) 127.7 H 334.3 *H 243. 5 *H 304.9 *H ABG PO2/FiO2 Ratio (mm/Hg) 212.83 ABG HCO3 (22.0 - 26.0 MMOL/L) 21.3 L 20.1 L 26 .9 H 27.2 H ABG Total CO2 22.8 21.2 28.1 28.4 ABG Base Excess (-4.0 - 4.0 MMOL/L) -6.2 L -4.9 L 2.2 3.2 ABG Hematocrit (33.0 - 45.0 %) 18 L 22 L 24 L 2 6 L ABG Hemoglobin (11.0 - 15.0 G/DL) 6.1 L 7.6 L 8 .0 L 8.8 L Oswaldo Test N/A Sodium (134 - 147 mmol/L) 145 142 142 143 Potassium (3.4 - 5.0 mmol/L) 3.6 3.8 4.2 4.4 Chloride (100 - 108 mmol/L) 111 H 110 H 104 103 Ionized Calcium (1.12 - 1.32 MMOL/L) 1.41 H 1.4 7 H 1.08 L 1.06 L Lactic Acid (0.9 - 1.7 mmol/l) 3.0 H 2.7 H 2.6 H Temperature (F) 97.3 O2 Delivery Device Adult Vent Vent Mode AC Vent Rate (/MIN) 15 FiO2 (%) 60 Tidal Volume (ml) 450 PEEP (cmH2O) 5 06/16 06/16 0940 0716 Blood Gas O2 Saturation (90 - 100 %) 99.9 100.0 ABG pH (7.35 - 7.45) 7.265 *L 7.295 *L ABG pCO2 (35.0 - 45 mmHg) 58.4 *H 46.9 H ABG pO2 (80 - 100.0 mmHg) 300.0 *H 607.2 *H ABG HCO3 (22.0 - 26.0 MMOL/L) 26.5 H 22.8 ABG Total CO2 28.3 24.3 ABG Base Excess (-4.0 - 4.0 MMOL/L) -1.4 -3.9 ABG Hematocrit (33.0 - 45.0 %) 35 38 ABG Hemoglobin (11.0 - 15.0 G/DL) 11.9 13.0 Sodium (134 - 147 mmol/L) 142 142 Potassium (3.4 - 5.0 mmol/L) 3.3 L 3.9 Chloride (100 - 108 mmol/L) 105 103 Ionized Calcium (1.12 - 1.32 MMOL/L) 1.26 1.29 Lactic Acid (0.9 - 1.7 mmol/l) 2.7 H 1.8 H Laboratory Tests 06/16 06/16 06/16 06/16 06/16 1740 1556 1400 1312 1216 Chemistry POC Creatinine (0.6 - 1.0 mg/dL) 2.2 H 1.0 1.0 0.9 POC Glucose (70 - 110 MG/DL) 232 H POC Glucose (mg/dL) (70 - 110 MG/DL) 178 H 168 H 230 H 236 H 06/16 06/16 06/16 06/16 06/16 1215 1144 1042 1012 0940 Chemistry Sodium (134 - 147 mEq/L) 148 H Potassium (3.4 - 5.0 mEq/L) 3.8 Chloride (100 - 108 mEq/L) 115 H Carbon Dioxide (21 - 33 mEq/l) 24 Anion Gap (0 - 20) 13 BUN (7 - 18 mg/dL) 18 Creatinine (0.6 - 1.3 mg/dL) 0.9 POC Creatinine (0.6 - 1.0 mg/dL) 0.8 0.8 0.8 0. 9 Glomerular Filtr Rate (80 - 90) 71.0 L Glucose (70 - 110 mg/dL) 248 H POC Glucose (mg/dL) (70 - 110 MG/DL) 202 H 173 H 171 H 196 H Calcium (8.0 - 10.5 mg/dL) 9.0 Magnesium (1.80 - 2.40 mg/dL) 2.74 H 06/16 06/16 06/16 06/15 0716 0257 0257 1941 Chemistry Sodium (134 - 147 mEq/L) 141 Potassium (3.4 - 5.0 mEq/L) 5.2 H Chloride (100 - 108 mEq/L) 107 Carbon Dioxide (21 - 33 mEq/l) 30 Anion Gap (0 - 20) 9 BUN (7 - 18 mg/dL) 21 H Creatinine (0.6 - 1.3 mg/dL) 1.1 POC Creatinine (0.6 - 1.0 mg/dL) 1.0 Glomerular Filtr Rate (80 - 90) 55.8 L Glucose (70 - 110 mg/dL) 224 H POC Glucose (70 - 110 MG/DL) 313 H POC Glucose (mg/dL) (70 - 110 MG/DL) 315 H Calcium (8.0 - 10.5 mg/dL) 10.0 Phosphorus (2.5 - 4.9 MG/DL) 3.8 Magnesium (1.80 - 2.40 mg/dL) 1.78 L Albumin (3.4 - 5.0 g/dL) 3.40 Laboratory Tests 06/16 06/16 06/16 06/16 1215 1146 1044 1015 Coagulation INR (0.8 - 1.2) 1.5 H PTT (Pender) (25.0 - 39.5 Seconds) 30.7 PT Patient/Control Mix (9.3 - 12.9 SECONDS) 16. 9 H Activated Coag Time (74 - 137 SEC) 143 H 618 H 805 H 06/16 06/16 06/16 0942 0719 0558 Coagulation INR (0.8 - 1.2) 1.2 PTT (Pender) (25.0 - 39.5 Seconds) 30.8 PT Patient/Control Mix (9.3 - 12.9 SECONDS) 12. 9 Activated Coag Time (74 - 137 SEC) 949 H 137 Laboratory Tests 06/16 06/16 1215 0257 Hematology WBC (4.5 - 11.0 x10 3/uL) 17.9 H 6.4 RBC (3.54 - 5.02 x10 6/uL) 2.25 L 4.00 Hgb (11.0 - 15.0 g/dL) 7.0 L 12.2 Hct (33.0 - 45.0 %) 20.7 L 36.4 MCV (81.0 - 99.0 fL) 92.0 91.0 MCH (27.0 - 33.0 pg) 31.1 30.5 MCHC (33.0 - 37.0 g/dL) 33.8 33.5 RDW (11.5 - 14.5 %) 12.7 12.5 Plt Count (150 - 400 x10 3/uL) 120 L 156 MPV (7.0 - 9.0 fL) 10.8 H 10.7 H Neut % (Auto) (56.0 - 77.0 %) 73.5 56.8 Lymph % (Auto) (14.0 - 32.0 %) 21.3 31.7 [place] % (Auto) (4.8 - 9.0 %) 3.1 L 8.2 Eos % (Auto) (0.3 - 3.7 %) 0.9 2.5 Baso % (Auto) (0.0 - 2.0 %) 0.2 0.5 Neut # (Auto) (2.0 - 7.6 x10 3/uL) 13.15 H 3.66 Lymph # (Auto) (1.0 - 3.8 x10 3/uL) 3.80 2.04 [place] # (Auto) (0.1 - 0.8 x10 3/uL) 0.55 0.53 Eos # (Auto) (0.0 - 0.2 x10 3/uL) 0.16 0.16 Baso # (Auto) (0.0 - 0.2 x10 3/uL) 0.04 0.03 Abs Immat Gran (auto) (0.00 - 0.03 x10 3/uL) 0. 18 H 0.02 Add Manual Diff NO NO Immature Gran % (0.0 - 2.0 %) 1.0 0.3 Nucleated RBC % (0 - 0 %) 0.0 0.0 Nucleated RBCs # (Man) (0.0 - 0.1 x10 3/uL) 0.0 0 0.00 Laboratory Tests 06/15 1800 Serology SARS-CoV-2 Ag (Rapid) (Negative) Negative Laboratory Tests 06/15 2321 Urines Urine Color (YEL/STRAW) YELLOW Urine Appearance (CLEAR) CLEAR Urine pH (5.0 - 7.0) 5.0 Ur Specific [place] (1.005 - 1.030) 1.024 Urine Protein (NEGATIVE) NEGATIVE Urine Glucose (UA) (NEGATIVE) 3+ H Urine Ketones (NEGATIVE) NEGATIVE Urine Blood (NEGATIVE) NEGATIVE Urine Nitrite (NEGATIVE) NEGATIVE Urine Bilirubin (NEGATIVE) NEGATIVE Urine Urobilinogen (0.2 - 1.0 mg/dL) 0.2 Ur Leukocyte Esterase (NEGATIVE) NEGATIVE Urine RBC (0 - 3 RBC/HPF) 0-3 Urine WBC (0 - 3 WBC/HPF) 0-3 Ur Squamous Epith Cells (NONE SEEN /HPF) 0-5 Urine Bacteria (NONE SEEN /HPF) 4+ H Hyaline Casts (NONE SEEN /LPF) 0-2 Radiology data: Recent Impressions: RADIOLOGY - XR CHEST 1 V 06/16 1513 Report Impression - Status: SIGNED Entered: 06/16/2022 1606 IMPRESSION: 1. Satisfactory position of lines and tubes. 2. Low lung volumes with possible mild vascular congestion. Mild atelectasis in the left upper-mid lung. Impression By: [email or web address] - Fabian Larry M.D. Diagnosis, Assessment Plan Free Text DxA P Notes Free text DxA P notes: CAD cath with multivessel CAD CTS seen Status post 5 vessel CABG today Status post CABG On Levophed and Filippo-Synephrine Patient intubated Patient on IV insulin drip Has 2 chest tubes On Amicar drip DM on SSI prn monitor sugars closely check A1C HLD stable check labs in am Electronically Signed by Reva Murrell MD on 0 06/16/22 at 1750 RPT #:[id number] END OF REPORT 2022-06-16 12:59:00-00:00 [id number] [place] [address] PATIENT NAME: KALA TURPIN ADMIT DATE: 06/15/22 ACCOUNT NO: [id number] ROOM NO: [id number] AGE: 67 REPORT TYPE: eELECTROCARDIOGRAM REPORT SEX: F ADMITTING PHYSICIAN:LOUIS, GENERIC FOR EDM ATTENDING PHYSICIAN:Reva Murrell MD Order: [id number] Test Reason : S/P CABG Test Date/Time Stamp: SunJun 16 2022 12:59:09 Blood Pressure : / mmHG Vent. Rate : 072 BPM Atrial Rate : 072 BPM P-R Int : 104 ms QRS Dur : 088 ms QT Int : 438 ms P-R-T Axes : 067 072 075 degree s QTc Int : 479 ms Sinus rhythm with short [place] Nonspecific ST abnormality Abnormal ECG No previous ECGs available Confirmed by MD PALMA, AMARA ([id number]) on 06/17/19 5:23:19 PM Referred By: Self Referred Confirmed by:AMARA NAVARRETE MD Electronically Signed by Amara Waldrop MD on 0 06/16/22 at 1723 PATIENT NAME: KALA TURPIN 16 2022-06-16 11:49:00-00:00 [id number] [address] PATIENT NAME: KALA TURPIN ADMIT DATE: 06/15/22 ACCOUNT NO: [id number] ROOM NO: G.2205 AGE: 67 REPORT TYPE: OPERATIVE REPORT SEX: F ADMITTING PHYSICIAN:LOUIS GENERIC FOR EDM ATTENDING PHYSICIAN:Reva Murrell MD OPERATION DATE: 06/16/2022 PREOPERATIVE DIAGNOSIS: Coronary artery disease. POSTOPERATIVE DIAGNOSIS: Coronary artery disease . PROCEDURES: 1. Coronary artery bypass graft surgery x 4 (MASTERSON A to LAD, saphenous vein to diagonal, saphenous vein to marginal, saphenous vein to PDA). 2. Amputation of left atrial appendage. 3. Endoscopic vein harvesting (right greater sap henous vein). 4. Posterior pericardiotomy. SURGEON: Peggy Rogel MD BREAKFAST HOSTESS: Keith Johnson. ANESTHESIOLOGIST: Dr. Acuna. ANESTHESIA: General endotracheal anesthesia. ESTIMATED BLOOD LOSS: 100 mL INDICATIONS: Ms. Turpin is a 67-year-old female w ith severe triple-vessel coronary artery disease. After due preop senior counsel ing, she was brought to the operating room today for surgical revascularizat ion. FINDINGS: 1. Vein was harvested from the right leg using e ndoscopic vein harvest technique. Vein was of marginal quality, measuri ng about 3-5 mm in size, thin walled. 2. Normal sternum. 3. Good quality LIN measuring 2 mm size with ex cellent flow. 4. Normal pericardium without any intrapericardi al adhesions, minimal intrapericardial fluid. 5. LAD 2 mm, good quality artery. 6. Diagonal 2 mm, good quality artery. 7. Marginal 2 mm, good quality artery. 8. PDA 2 mm, good quality artery. 9. Left atrial appendage was amputated 0.5 cm fr om the base. This was then repaired using 2 layers of running pledgeted 4-0 Prolene suture. 10. Posterior pericardiotomy was performed so as to drain the pericardial collection into the left pleural space postopera tively. PATIENT NAME: KALA TURPIN 16 PROCEDURE IN DETAIL: Ms. Turpin was ident ified in the preoperative holding area and brought to the operating room and placed sup ine on the operating table. After induction of general endotracheal anesthes ia, Staples catheter, radial arterial line, and antibiotics were placed. The patient's anterior torso and both legs were prepped and draped in standard huffman rgical fashion. Vein was harvested from the right leg using endoscopic vein harvest technique. Following harvesting of the vein, subc utaneous tissue was closed with 2-0 Vicryl and skin with 4-0 Vicryl. Simultaneously, median sternoto my was performed. Left internal mammary artery was harvested. The patie nt was heparinized. Pericardium was opened longitudinally and perica rdial well was created. Cardiopulmonary bypass was i nstituted using ascending aorta and 3-stage cannula in the right atrium. The patient was cooled to 3 4 degrees centigrade. Crossclamp was applied and the heart was arrested with 1.5 L of antegrade cold blood cardioplegia. Cardioplegia was repeated at interval of 10 minutes all throughout duration of crossclamp. We began by e xploring the PDA. This was good quality artery, measuring 2 mm in s ize. An arteriotomy was performed with a [place] blade and extended with Alberts scissors. A segment of previously harvested reverse saphenous vein was anastomosed in end-to-side manner using 7-0 Prolene suture. Vein graft t o PDA was brought along right side of the heart and sized. Aortotomy was performed on the right aspe ct of the aorta using 4 mm punch. Proximal anastomosis of the PDA graft was then performed using running 6-0 Prolene suture. Next, the marginal was explo red. This was a good quality artery, measuring 2 mm in size. An arteriotomy w as performed with a [place] blade and extended with Alberts scissors. A segmen t of previously harvested reverse saphenous vein was anastomosed i n end-to-side manner using 7-0 Prolene suture. Vein graft to margin al was brought along the left side of the heart and sized. Aortotomy was perform ed on the left aspect of the aorta using 4 mm punch. Proximal anastomosis of the marginal graft was then performed using running 6-0 Prolene suture. Next, the left atrial appendage was amputated 0.5 cm from the base. This was then repaired using 2 layers of r unning pledgeted 4-0 Prolene suture. Rewarming was commenced at this stage. Next, the diagonal was explored. This was a good quality artery, m easuring 2 mm in size. An arteriotomy was performed with a [place] blade and extended with Alberts scis sors. A segment of previously harvested reverse saphenous vein was anastomosed in end-to-side manner using 7-0 Prolene suture. Vein graft to diagonal was broug ht along the left side of the heart and sized. Aortotomy was performed on the left aspect of the aorta using 4 mm punch. Proximal anastom osis of the diagonal graft was then performed using running 6-0 Prolene suture. Finally, LAD was explored. This was a good quality artery, measuring 2 mm in size. An arteriotomy w as performed with a [place] blade and extended with Alberts scissors. LIN was anastomosed in end-to-side manner using running 8-0 Prolene suture. LIN pedicle was tacked to epicardium using two interrupted 6-0 Pr olene suture. A slit was made in the pericardium on the left aspect, so as to accommodate the LIN. Next, a cruciate incision was made in the posterior perica rdium so as to drain the pericardial blood into the left pleural space postoperatively. Careful de-a eration was performed and the crossclamp was released. One ventricular wire wa s placed. A 28-Citizen Of [place] chest tube was placed in the mediastinum and 28-angled chest tube was placed in the left pleural space. Once the patient was at temp erature, she was weaned off cardiopulmonary bypass with minimal inotropic huffman pport. Heparin was reversed with protamine. Decannulation was uneven tful. After confirming hemostasis, the chest was closed in layers using stainless steel wires for the sternum, #1 PATIENT NAME: ROJAS TURPINELA 16 Vicryl for the fascia, 2-0 Vicryl for the subcut aneous tissue, and 4-0 Vicryl for the skin. The patient was transferred to int ensive care unit, intubated, stable condition. Dictated By: Peggy Rogel MD Date Dictated: 06/16/2022 11:49:38 Date Transcribed: 06/16/2022 12:31:26 /[facility] Receipt ID: [id number] Authenticated and Edited by Surjit Rogel MD On 06/16/22 3:00:20 PM at 0311 PATIENT NAME: KALA TURPIN 16 2022-06-16 11:41:00-00:00 [facility] Brief Op Note REPORT#:[id number] REPORT STATUS: Signed DATE:06/16/22 TIME: 1141 PATIENT: PAPIROJAS ETEELA UNIT #: [id number] [address] AGE: 67 SEX: F ATTEND: Rosa Murrell MD ADM AUTHOR: Peggy Rogel MD * ALL edits or amendments must be made on the [employer] document * Op/Inv Proc Note - Brief Pre-procedure diagnosis: CAD Post-procedure diagnosis: same as pre procedure dx Procedures performed: CABG x 4 (LIN-LAD, SVG-Elisabet, SVG-OM, SVG-PDA) ALAA EVH (RGSV) Posterior pericardiotomy Primary Surgeon: Juan F Nutritionists(s): Keith Johnson Findings: LAD-2mm Complications: none Estimated blood loss in ml's: 100 cc Specimens removed/altered: RAJESH at 1143 RPT #:[id number] END OF REPORT 2022-06-16 10:51:00-00:00 [facility] Card[facility] Progress Note REPORT#:[id number] REPORT STATUS: Signed DATE:06/16/22 TIME: 1051 PATIENT: KALA TURPIN UNIT #: [id number] ROOM/BED: 3343-1 : 57 AGE: 67 SEX: F ATTEND: Reji Patel MD ADM AUTHOR: Ursula Perkins PELLET MACHINE OPERATOR * ALL edits or amendments must be made on the [employer] document * Ursula Perkins 06/16/22 1051: Objective General VS/I O: 24 hour I O ending at 0700: 06/16 0700 06/15 1900 Intake Total 1000 Output Total Balance 1000 Intake, Oral 1000 Number Voids 4 Patient 94.801 kg Weight Vital Signs: Date Time Temp Pulse Resp B/P B/P Pulse O2 O2 F low FiO2 Mean Ox Delivery Rate 06/16 0359 36.8 51 16 109/66 80.1 96 Room air 06/16 0158 48 8 96 06/16 0100 50 13 94 06/16 0000 51 12 97 06/15 2329 36.6 50 16 127/70 89.1 97 Room air 06/15 2300 52 12 94 06/15 2200 52 12 94 06/15 2100 52 10 94 06/16 1999 55 14 96 06/15 1957 95 Room air 06/15 1943 36.7 55 16 137/71 92.6 94 Room air 06/15 1900 57 20 97 06/15 1557 36.7 53 15 137/62 0.0 93 Room air 06/15 1157 36.6 57 15 131/60 0.0 96 Room air PATIENT WEIGHT: Weight (lb): 209 Weight (oz): 15.84 Weight (kg): 94.801 Medications: Active Meds + DC'd Last 24 Hrs Phenylephrine HCl (Phenylephrine PF 500 mg/5 mL Inj) 0 .STK-MED ONE .ROUTE (DC) Dexamethasone Sodium Phosphate (DECADRON) 0 .STK -MED ONE .ROUTE (DC) Ephedrine Sulfate (ePHEDrine sulfate) 0 .STK-MED ONE .ROUTE (DC) Esmolol HCl (BREVIBLOC) 0 .STK-MED ONE IV (DC) Glycopyrrolate (GLYCOPYRROLATE) 0 .STK-MED ONE . ROUTE (DC) Neostigmine Methylsulfate (PROSTIGMIN) 0 .STK-ME D ONE .ROUTE (DC) Ondansetron HCl (ZOFRAN) 0 .STK-MED ONE .ROUTE ( DC) Rocuronium [place] (ZEMURON) 0 .STK-MED ONE IV ( DC) Sevoflurane (ULTANE) 0 .STK-MED ONE INH (DC) Sodium Chloride (SODIUM CHLORIDE 0.9%) 250 ML .S TK-MED ONE IV (DC) Sodium Chloride (SODIUM CHLORIDE 0.9%) 50 ML .ST K-MED ONE IV (DC) Albumin Human (ALBUMINAR-25%) 100 ML .STK-MED ON E IV (DC) Heparin Sodium (HEPARIN SODIUM) 0 .STK-MED ONE . ROUTE (DC) Mannitol (Mannitol 20%) 500 ML .STK-MED ONE IV ( DC) Sodium Chloride (SODIUM CHLORIDE 0.9%) 100 ML . STK-MED ONE IV (DC) Lidocaine HCl (XYLOCAINE IV) 0 .STK-MED ONE IV ( DC) Magnesium Sulfate (MAGNESIUM SULFATE) 0 .STK-MED ONE IV (DC) Phenylephrine HCl (FILIPPO-SYNEPHRINE 10MG/ML AMP) 0 .STK-MED ONE .ROUTE (DC ) Sodium Bicarbonate (SODIUM BICARBONATE) 0 .STK-M ED ONE IV (DC) Papaverine HCl (PAPAVERINE HCL) 0 .STK-MED ONE I V (DC) Cefazolin Sodium (KEFZOL OR ANCEF) 0 .STK-MED ON E .ROUTE (DC) Aminocaproic Acid (AMICAR) 0 .STK-MED ONE IV (DC ) Epinephrine HCl (EPINEPHrine 4 mg/D5W 250 mL) 25 0 ML .STK-MED ONE IV (DC ) Heparin Sodium (HEPARIN SODIUM) 0 .STK-MED ONE . ROUTE (DC) Insulin Human Regular (HumuLIN R 100 UNITS/NS 10 0ML) 100 ML .STK-MED ONE IV (DC) Nitroglycerin/Dextrose (NITROGLYCERIN 50,000MCG/ D5W 250ML) 250 ML .STK-MED ONE IV (DC) Norepinephrine Bitartrate (NOREPINEPHRINE 8 MG/N S 250 ML) 250 ML .STK-MED ONE IV (DC) Sodium Chloride (SODIUM CHLORIDE 0.9% 100 ML) 10 0 ML .STK-MED ONE IV (DC ) Calcium Chloride (CALCIUM CHLORIDE) 0 .STK-MED O NE IV (DC) Magnesium Sulfate (MAGNESIUM SULFATE) 0 .STK-MED ONE .ROUTE (DC) Protamine Sulfate (PROTAMINE SULFATE) 0 .STK-MED ONE IV (DC) Ropivacaine (NAROPIN 0.5% 150 MG/30mL) 0 .STK-ME D ONE .ROUTE (DC) Tranexamic Acid (Cyklokapron) 0 .STK-MED ONE .RO [place] (DC) Midazolam HCl (VERSED) 0 .STK-MED ONE .ROUTE (DC ) Propofol (DIPRIVAN 200MG/20ML INJECTION) 20 ML . STK-MED ONE IV (DC) Fentanyl Citrate (SUBLIMAZE) 0 .STK-MED ONE IV ( DC) Cefazolin Sodium (KEFZOL OR ANCEF) 2 GM PREOP PYRIDINE RECOVERY OPERATOR IV (CKD) Metoprolol Tartrate (LOPRESSOR) 6.25 MG ONCE ONE PO (CAN) Vancomycin HCl (VANCOMYCIN HCL) 1,500 MG PREOP O NCALL IV (CKD) Sodium Chloride (SODIUM CHLORIDE 0.9%) 250 ML Verapamil HCl (ISOPTIN) 16.6 MG .Q24H ONE IV (CK D) Heparin Sodium (Porcine) (HEPARIN SODIUM) 1,660 UNIT Sodium Bicarbonate (SODIUM BICARBONATE) 0.7 ML Nitroglycerin/Dextrose (NITROGLYCERIN 50MG/D5W 250ML) 8.3 MG Lactated Ringer's (LACTATED RINGERS) 949.5 ML Insulin Glargine (Lantus/Semglee) 15 UNIT BEDTIM E SUBQ Atorvastatin Calcium (LIPITOR) 40 MG 2100 PO Melatonin (Melatonin) 6 MG BEDTIME PO Acetaminophen (TYLENOL EXTRA STRENGTH) 1,000 MG PREOP ONCALL PO (CKD) Gabapentin (NEURONTIN) 200 MG PREOP ONCALL PO (C KD) Sodium Chloride (SODIUM CHLORIDE) 20 ML ASDIR IV Hydrocodone Bitart/Acetaminophen (NORCO 5/325) 1 TAB Q4H PRN PRN PO Aspirin (ASPIRIN) 81 MG DAILY PO Metoprolol Tartrate (LOPRESSOR) 12.5 MG Q12HR PO Insulin Human Lispro (HUMALOG) 0 AC HS SUBQ Acetaminophen (TYLENOL) 650 MG Q4H PRN PRN PO Dextrose/Water (DEXTROSE 10% IN WATER) 125 ML DIR PRN IV (CKD) Dextrose/Water (DEXTROSE 10% IN WATER) 250 ML DIR PRN IV (CKD) Glucagon (GLUCAGON) 1 MG ASDIR PRN IM Magnesium Hydroxide (MILK OF MAGNESIA) 30 ML BED TIME PRN PRN PO Ondansetron HCl (ZOFRAN) 4 MG Q6H PRN PRN IV Physical Exam General appearance: alert, awake, oriented Neck: non-tender, no JVD Cardiovascular: CV assessment: bradycardia Respiratory: clear to auscultation, no distress Abdomen: soft, non-tender, normal bowel sounds, no distention Genitourinary: no flank pain, no urinary cathete r Lower extremity: LE assessment: no calf tenderness, no edema 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 9 H ABG pO2 (80 - 100.0 mmHg) 243.5 *H 304.9 *H 300 .0 *H 607.2 *H ABG HCO3 (22.0 - 26.0 MMOL/L) 26.9 H 27.2 H 26. 5 H 22.8 ABG Total CO2 28.1 28.4 28.3 24.3 ABG Base Excess (-4.0 - 4.0 MMOL/L) 2.2 3.2 -1 .4 -3.9 ABG Hematocrit (33.0 - 45.0 %) 24 L 26 L 35 38 ABG Hemoglobin (11.0 - 15.0 G/DL) 8.0 L 8.8 L 1 1.9 13.0 Sodium (134 - 147 mmol/L) 142 143 142 142 Potassium (3.4 - 5.0 mmol/L) 4.2 4.4 3.3 L 3.9 Chloride (100 - 108 mmol/L) 104 103 105 103 Ionized Calcium (1.12 - 1.32 MMOL/L) 1.08 L 1.0 6 L 1.26 1.29 Lactic Acid (0.9 - 1.7 mmol/l) 2.7 H 2.6 H 2.7 H 1.8 H Laboratory Tests 06/16 06/16 06/16 06/16 06/16 1042 1012 0940 0716 0257 Chemistry Sodium (134 - 147 mEq/L) 141 Potassium (3.4 - 5.0 mEq/L) 5.2 H Chloride (100 - 108 mEq/L) 107 Carbon Dioxide (21 - 33 mEq/l) 30 Anion Gap (0 - 20) 9 BUN (7 - 18 mg/dL) 21 H Creatinine (0.6 - 1.3 mg/dL) 1.1 POC Creatinine (0.6 - 1.0 mg/dL) 0.8 0.8 0.9 1. 0 Glomerular Filtr Rate (80 - 90) 55.8 L Glucose (70 - 110 mg/dL) 224 H POC Glucose (mg/dL) (70 - 110 MG/DL) 173 H 171 H 196 H 315 H Calcium (8.0 - 10.5 mg/dL) 10.0 06/16 06/15 06/15 06/15 0257 1941 1554 1148 Chemistry POC Glucose (70 - 110 MG/DL) 313 H 235 H 254 H Phosphorus (2.5 - 4.9 MG/DL) 3.8 Magnesium (1.80 - 2.40 mg/dL) 1.78 L Albumin (3.4 - 5.0 g/dL) 3.40 Laboratory Tests 06/16 06/16 06/16 06/16 1015 0942 0719 0558 Coagulation INR (0.8 - 1.2) 1.2 PTT (Pender) (25.0 - 39.5 Seconds) 30.8 PT Patient/Control Mix (9.3 - 12.9 SECONDS) 12 .9 Activated Coag Time (74 - 137 SEC) 805 H 949 H 137 Laboratory Tests 06/16 0257 Hematology WBC (4.5 - 11.0 x10 3/uL) 6.4 RBC (3.54 - 5.02 x10 6/uL) 4.00 Hgb (11.0 - 15.0 g/dL) 12.2 Hct (33.0 - 45.0 %) 36.4 MCV (81.0 - 99.0 fL) 91.0 MCH (27.0 - 33.0 pg) 30.5 MCHC (33.0 - 37.0 g/dL) 33.5 RDW (11.5 - 14.5 %) 12.5 Plt Count (150 - 400 x10 3/uL) 156 MPV (7.0 - 9.0 fL) 10.7 H Neut % (Auto) (56.0 - 77.0 %) 56.8 Lymph % (Auto) (14.0 - 32.0 %) 31.7 [place] % (Auto) (4.8 - 9.0 %) 8.2 Eos % (Auto) (0.3 - 3.7 %) 2.5 Baso % (Auto) (0.0 - 2.0 %) 0.5 Neut # (Auto) (2.0 - 7.6 x10 3/uL) 3.66 Lymph # (Auto) (1.0 - 3.8 x10 3/uL) 2.04 [place] # (Auto) (0.1 - 0.8 x10 3/uL) 0.53 Eos # (Auto) (0.0 - 0.2 x10 3/uL) 0.16 Baso # (Auto) (0.0 - 0.2 x10 3/uL) 0.03 Abs Immat Gran (auto) (0.00 - 0.03 x10 3/uL) 0 .02 Add Manual Diff NO Immature Gran % (0.0 - 2.0 %) 0.3 Nucleated RBC % (0 - 0 %) 0.0 Nucleated RBCs # (Man) (0.0 - 0.1 x10 3/uL) 0.0 0 Laboratory Tests 06/15 1800 Serology SARS-CoV-2 Ag (Rapid) (Negative) Negative Laboratory Tests 06/15 2321 Urines Urine Color (YEL/STRAW) YELLOW Urine Appearance (CLEAR) CLEAR Urine pH (5.0 - 7.0) 5.0 Ur Specific [place] (1.005 - 1.030) 1.024 Urine Protein (NEGATIVE) NEGATIVE Urine Glucose (UA) (NEGATIVE) 3+ H Urine Ketones (NEGATIVE) NEGATIVE Urine Blood (NEGATIVE) NEGATIVE Urine Nitrite (NEGATIVE) NEGATIVE Urine Bilirubin (NEGATIVE) NEGATIVE Urine Urobilinogen (0.2 - 1.0 mg/dL) 0.2 Ur Leukocyte Esterase (NEGATIVE) NEGATIVE Urine RBC (0 - 3 RBC/HPF) 0-3 Urine WBC (0 - 3 WBC/HPF) 0-3 Ur Squamous Epith Cells (NONE SEEN /HPF) 0-5 Urine Bacteria (NONE SEEN /HPF) 4+ H Hyaline Casts (NONE SEEN /LPF) 0-2 Laboratory Tests 06/16 0257 Chemistry Magnesium (1.80 - 2.40 mg/dL) 1.78 L Results: labs reviewed, vital signs reviewed Diagnosis, Assessment Plan Free Text DxA P Notes Free Text DxA P Notes: 67-year-old female with [facility] history of CAD, MA, prior PCI/MEG 11 years ago, hypertension, diabetes melli tus, CVA, peripheral neuropathy, Charcot's foot who presented to with chest pain. She was taken for left heart catheterization where she wa s found to have multivessel CAD with failed attempt to PCI the CUT OFF SAWYER LAD. Patient is transferred to [facility] facility for surgical revascularization. 1. Multivessel CAD CABG today Continue aspirin, beta-xander, statin No active chest pain 2. Hypertension Normotensive Continue losartan and metoprolol 3. Diabetes mellitus Manage per primary team Julius Washington 06/23/22 1213: Attestations Physician Attestation Agree w/findings plan: I have seen and examined the pt, I Agree with th e findings and plan as documented by Ursula Perkins. at 1444 Electronically Signed by Julius Washington MD on at 1214 RPT #:[id number] END OF REPORT 2022-06-15 22:48:00-00:00 [facility] ([facility]) Hospitalist Consultation REPORT#:[id number] REPORT STATUS: Signed DATE:06/15/22 TIME: 2247 PATIENT: KALA TURPIN UNIT #: [id number] ROOM/BED: [place] [id number] : 57 AGE: 67 SEX: F ATTEND: Jerri Murrell MD ADM AUTHOR: Reva Murrell MD * ALL edits or amendments must be made on the el [employer]/computer document * History of Present Illness Reason for consult: med management HPI: This is 67-year-old female with past medical his tory of stroke, hypertension, hyperlipidemia, diabetes (on insulin), obstructi ve sleep apnea, PAD, 2 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 Presented to the emergency room, was evaluated by cardiology and underwent left h eart cath. Coronary angiogram revealed severe multivessel coronary artery dise ase involving LAD which is totally occluded after the m idportion; diagonal OM branch with proximal stenosis 60 to 70%, left 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 Patient transferred to [facility] for surgical revascularization. History - Adult longitudinal Past medical history: Reports: Coronary artery disease, Diabetes melli tus, Hypertension, Ischemic stroke, Prior MA. Denies: Congestive heart failu re, Kidney disease/stones. Additional medical history: Stroke Hypertension Hyperlipidemia Diabetes Obstructive sleep apnea Coronary artery disease Charcot syndrome Non Hodgkin's lymphoma Past surgical history: Reports: Hysterectomy, PCI. 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 All systems rev neg: except as marked (in the HP I) Objective VS/I O Last Documented: Result Date Time Pulse Ox 95 06/15 1956 O2 Delivery Room air 06/15 1956 B/P 137/71 06/15 1942 B/P Mean 92.6 06/15 1942 Temp 98.1 06/15 1942 Pulse 55 06/15 1942 Resp 16 06/15 1942 24 hour I O ending at 0700: 06/15 0700 06/14 1899 Intake Total Output Total Balance Patient 210 lb Weight Weight Standing scale Measurement Method General appearance: no acute distress Head/Eyes: atraumatic, clear cornea, EOMI, PERRL A Neck: supple/no meningismus Cardiovascular: normal heart sounds, reg ular rate rhythm, no gallop, no murmur , no rub Respiratory: aerating well, clear to auscultatio n Abdomen: non-tender, normal bowel sounds, soft, no distention Extremities: no clubbing, no cyanosis, no edema Musculoskeletal: normal inspection, painless ran ge of motion 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, oriented X 3, CNII-XII intact Skin: dry, intact Results Findings/Data: Laboratory Tests: 06/15 06/15 06/15 06/15 06/15 1941 1800 1554 1148 0755 Chemistry POC Glucose (70 - 110 MG/DL) 313 H 235 H 254 H Coagulation Plt P2Y12 React Units (182 - 335 PRU) 230 Serology SARS-CoV-2 Ag (Rapid) (Negative) Negative 06/15 06/15 06/15 06/15 0721 0605 0605 0605 Chemistry Sodium (134 - 147 mEq/L) 140 Potassium (3.4 - 5.0 mEq/L) 3.6 Chloride (100 - 108 mEq/L) 106 Carbon Dioxide (21 - 33 mEq/l) 28 Anion Gap (0 - 20) 10 BUN (7 - 18 mg/dL) 21 H Creatinine (0.6 - 1.3 mg/dL) 1.0 Glomerular Filtr Rate (80 - 90) 62.5 L Glucose (70 - 110 mg/dL) 124 H POC Glucose (70 - 110 MG/DL) 144 H Hemoglobin A1c (4.8 - 6.0 %A1C) 8.3 H Calcium (8.0 - 10.5 mg/dL) 9.6 Magnesium (1.80 - 2.40 mg/dL) 1.82 Total Bilirubin (0.0 - 1.0 mg/dL) 0.60 AST (15 - 37 IUnit/L) 15 ALT (30 - 65 IUnit/L) 13 L Total Alk Phosphatase (20 - 125 IUnit/L) 105 B-Natriuretic Peptide (0 - 100 PG/ML) 58.0 Total Protein (6.4 - 8.2 g/dL) 6.6 Albumin (3.4 - 5.0 g/dL) 3.50 Coagulation INR (0.8 - 1.2) 1.1 PT Patient/Control Mix (9.3 - 12.9 SECONDS) 12. 6 Hematology WBC (4.5 - 11.0 x10 3/uL) 6.9 RBC (3.54 - 5.02 x10 6/uL) 4.15 Hgb (11.0 - 15.0 g/dL) 12.9 Hct (33.0 - 45.0 %) 37.6 MCV (81.0 - 99.0 fL) 90.6 MCH (27.0 - 33.0 pg) 31.1 MCHC (33.0 - 37.0 g/dL) 34.3 RDW (11.5 - 14.5 %) 12.4 Plt Count (150 - 400 x10 3/uL) 164 MPV (7.0 - 9.0 fL) 10.7 H Neut % (Auto) (56.0 - 77.0 %) 51.9 L Lymph % (Auto) (14.0 - 32.0 %) 38.4 H [place] % (Auto) (4.8 - 9.0 %) 7.2 Eos % (Auto) (0.3 - 3.7 %) 2.0 Baso % (Auto) (0.0 - 2.0 %) 0.4 Neut # (Auto) (2.0 - 7.6 x10 3/uL) 3.59 Lymph # (Auto) (1.0 - 3.8 x10 3/uL) 2.66 [place] # (Auto) (0.1 - 0.8 x10 3/uL) 0.50 Eos # (Auto) (0.0 - 0.2 x10 3/uL) 0.14 Baso # (Auto) (0.0 - 0.2 x10 3/uL) 0.03 Abs Immat Gran (auto) (0.00 - 0.03 x10 3/uL) 0. 01 Add Manual Diff NO Immature Gran % (0.0 - 2.0 %) 0.1 Nucleated RBC % (0 - 0 %) 0.0 Nucleated RBCs # (Man) (0.0 - 0.1 x10 3/uL) 0.0 0 06/15 0111 Chemistry POC Glucose (70 - 110 MG/DL) 191 H Radiology data: Recent Impressions: CAT SCAN - CT CHEST W/O CONTRAST 06/15 0824 Report Impression - Status: SIGNED Entered: 06/15/2022 1339 IMPRESSION: 1. No acute abnormality in the chest. Scarring v ersus subsegmental atelectasis in the anterior recess of the right upper lobe. 2. Nonspecific anterior pericardial lymph node. Impression By: [email or web address] - Dale Arias ULTRASOUND - DUP EXTRACRANIAL TRE 06/15 0915 Report Impression - Status: SIGNED Entered: 06/15/2022 1258 IMPRESSION: 1. About 50-69% stenosis of right proximal inter nal carotid artery as above. 2. No flow-limiting left proximal internal carot id arterial stenosis. REFERENCES: SRU CRITERIA. The degree of internal carotid art kimberli stenosis is based on criteria defined by the Society of Radi ologists in Ultrasound (SRU). Normal is no stenosis. Mild is less than 50% stenosis. Moderate is 50-69% stenosis. Severe is greater than 69% stenosis to near occlusion. Near occlusion is a markedly narrowed lumen. Total occlusion is no detectable patent l umen. Impression By: [email or web address] - Aubrey Aguilar M.D. ULTRASOUND - DUP VEIN TRE 06/15 0916 Report Impression - Status: SIGNED Entered: 06/15/2022 1331 IMPRESSION: Greater saphenous vein is patent. Vein mapping a s described. Impression By: [email or web address] - Dale Kurtz Diagnosis, Assessment Plan Free Text DxA P Notes Free Text DxA P Notes: CAD cath with multivessel CAD CTS consulted CABG w/up ongoing HTN bp controlled DM on SSI prn monitor sugars closely check A1C HLD stable check labs in am Electronically Signed by Reva Murrell MD on 0 06/15/22 at 2252 RPT #:[id number] END OF REPORT 2022-06-15 11:13:00-00:00 [facility] Cardiology Consultation REPORT#:[id number] REPORT STATUS: Signed DATE:06/15/22 TIME: 1113 PATIENT: KALA TURPIN UNIT #: [id number] ROOM/BED: [place] [address] : 57 AGE: 67 SEX: F ATTEND: Reji Patel MD ADM AUTHOR: [facility] * ALL edits or amendments must be made on the el [employer]/computer document * Ursula Perkins 06/15/22 1113: History of Present Illness HPI Requesting Clinician: Dr. Rogel Reason for consult: CAD Chief complaint: Presented at [facility] with chest pain , at this time PCP: PCP: Undefined Provider HPI: 67-year-old female with [facility] history of CAD, MA, prior PCI/MEG 11 years ago, hypertension, diabetes bhavin martinezs, CVA, peripheral neuropathy, Charcot's foot who presented to with chest pain. She was taken for left heart catheterization where she wa s found to have multivessel CAD with failed attempt to PCI the CUT OFF SAWYER LAD. Patient is transferred to [facility] facility for surgical revascularization. History - Adult longitudinal Past medical history: Reports: Coronary artery disease, Diabetes melli tus, Hypertension, Ischemic stroke, Prior MA. Denies: Congestive heart failu re, Kidney disease/stones. Past surgical history: Reports: Hysterectomy, PCI. Alcohol use: Denies EtOH use Drug use: Denies recreational drugs Smoking status for patients 13 years old or olde r: Never Smoker Home medications: Home Medications: LOSARTAN (COZAAR) 25 MG PO DAILY HYDROCHLOROTHIAZIDE (HCTZ) 12.5 MG PO DAILY PARoxetine HCL (PAXIL) 20 MG PO DAILY METOPROLOL SUCC XL (TOPROL XL) 25 MG PO DAILY Melatonin (MELATONIN) 10 MG SL BEDTIME INSULIN NPH/REG INSULIN HUM (NovoLIN 70/30) 130 UNITS SUBQ DAILY 0730 INSULIN NPH/REG INSULIN HUM (NovoLIN 70/30) 140 UNITS SUBQ DAILY 1700 Allergies: Coded Allergies: adhesive tape (RASH 06/15/22) niacin (Mild, ANXIETY 06/15/22) zolpidem (From AMBIEN) (CONFUSION 06/15/22) Review of Systems Additional notes: As stated in HPI Objective General VS/I O: Vital Signs: Date Time Temp Pulse Resp B/P B/P Pulse O2 O2 F low FiO2 Mean Ox Delivery Rate 06/15 0725 36.6 52 14 122/60 0.0 96 Room air 06/15 0356 36.8 51 13 117/58 0.0 96 Room air 06/15 0252 53 13 93 06/15 0152 52 11 97 06/15 0108 36.9 67 13 123/58 0.0 94 Room air 24 hour I O ending at 0700: 06/15 0700 06/14 1900 Intake Total Output Total Balance Patient 95.25 kg Weight Weight Standing scale Measurement Method PATIENT WEIGHT: Weight (lb): 209 Weight (oz): 15.84 Weight (kg): 95.250 Medications: Active Meds + DC'd Last 24 Hrs Atorvastatin Calcium (LIPITOR) 40 MG 2100 PO Melatonin (Melatonin) 6 MG BEDTIME PO Aspirin (ASPIRIN) 81 MG DAILY PO Metoprolol Tartrate (LOPRESSOR) 12.5 MG Q12HR PO (CAN) Metoprolol Tartrate (LOPRESSOR) 12.5 MG Q12HR PO Insulin Human Lispro (HUMALOG) 0 AC HS SUBQ Acetaminophen (TYLENOL) 650 MG Q4H PRN PRN PO Dextrose/Water (DEXTROSE 10% IN WATER) 125 ML DIR PRN IV (CKD) Dextrose/Water (DEXTROSE 10% IN WATER) 250 ML DIR PRN IV (CKD) Glucagon (GLUCAGON) 1 MG ASDIR PRN IM Magnesium Hydroxide (MILK OF MAGNESIA) 30 ML BED TIME PRN PRN PO Ondansetron HCl (ZOFRAN) 4 MG Q6H PRN PRN IV Acetaminophen (TYLENOL EXTRA STRENGTH) 1,000 MG Q6H PRN PRN PO (DC) Physical Exam General appearance: alert, awake Neck: non-tender, no JVD Cardiovascular: CV assessment: bradycardia Respiratory: clear to auscultation, no distress Abdomen: soft, non-tender, normal bowel sounds, no distention Genitourinary: no flank pain, no urinary cathete r Lower extremity: LE assessment: no calf tenderness, no edema 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, oriented X 3, normal speech Skin: dry, intact, normal color Psychiatry: normal affect, normal judgment/insig ht, normal mood Results Findings/Data: Laboratory Tests 06/15 06/15 06/15 06/15 06/15 0721 0605 0605 0605 0111 Chemistry Sodium (134 - 147 mEq/L) 140 Potassium (3.4 - 5.0 mEq/L) 3.6 Chloride (100 - 108 mEq/L) 106 Carbon Dioxide (21 - 33 mEq/l) 28 Anion Gap (0 - 20) 10 BUN (7 - 18 mg/dL) 21 H Creatinine (0.6 - 1.3 mg/dL) 1.0 Glomerular Filtr Rate (80 - 90) 62.5 L Glucose (70 - 110 mg/dL) 124 H POC Glucose (70 - 110 MG/DL) 144 H 191 H Hemoglobin A1c (4.8 - 6.0 %A1C) 8.3 H Calcium (8.0 - 10.5 mg/dL) 9.6 Magnesium (1.80 - 2.40 mg/dL) 1.82 Total Bilirubin (0.0 - 1.0 mg/dL) 0.60 AST (15 - 37 IUnit/L) 15 ALT (30 - 65 IUnit/L) 13 L Total Alk Phosphatase (20 - 125 105 IUnit/L) B-Natriuretic Peptide (0 - 100 PG/ML) 58.0 Total Protein (6.4 - 8.2 g/dL) 6.6 Albumin (3.4 - 5.0 g/dL) 3.50 Laboratory Tests 06/15 06/15 0755 0605 Coagulation INR (0.8 - 1.2) 1.1 PT Patient/Control Mix (9.3 - 12.9 SECONDS) 12. 6 Plt P2Y12 React Units (182 - 335 PRU) 230 Laboratory Tests 06/15 0605 Hematology WBC (4.5 - 11.0 x10 3/uL) 6.9 RBC (3.54 - 5.02 x10 6/uL) 4.15 Hgb (11.0 - 15.0 g/dL) 12.9 Hct (33.0 - 45.0 %) 37.6 MCV (81.0 - 99.0 fL) 90.6 MCH (27.0 - 33.0 pg) 31.1 MCHC (33.0 - 37.0 g/dL) 34.3 RDW (11.5 - 14.5 %) 12.4 Plt Count (150 - 400 x10 3/uL) 164 MPV (7.0 - 9.0 fL) 10.7 H Neut % (Auto) (56.0 - 77.0 %) 51.9 L Lymph % (Auto) (14.0 - 32.0 %) 38.4 H [place] % (Auto) (4.8 - 9.0 %) 7.2 Eos % (Auto) (0.3 - 3.7 %) 2.0 Baso % (Auto) (0.0 - 2.0 %) 0.4 Neut # (Auto) (2.0 - 7.6 x10 3/uL) 3.59 Lymph # (Auto) (1.0 - 3.8 x10 3/uL) 2.66 [place] # (Auto) (0.1 - 0.8 x10 3/uL) 0.50 Eos # (Auto) (0.0 - 0.2 x10 3/uL) 0.14 Baso # (Auto) (0.0 - 0.2 x10 3/uL) 0.03 Abs Immat Gran (auto) (0.00 - 0.03 x10 3/uL) 0. 01 Add Manual Diff NO Immature Gran % (0.0 - 2.0 %) 0.1 Nucleated RBC % (0 - 0 %) 0.0 Nucleated RBCs # (Man) (0.0 - 0.1 x10 3/uL) 0.0 0 Laboratory Tests 06/15 06/15 0605 0605 Chemistry Magnesium (1.80 - 2.40 mg/dL) 1.82 B-Natriuretic Peptide (0 - 100 PG/ML) 58.0 Radiology Data: Recent Impressions: CAT SCAN - CT CHEST W/O CONTRAST 06/15 0824 Report Impression - Status: SIGNED Entered: 06/15/2022 1339 IMPRESSION: 1. No acute abnormality in the chest. Scarring v ersus subsegmental atelectasis in the anterior recess of the right upper lobe. 2. Nonspecific anterior pericardial lymph node. Impression By: [email or web address] - Dale Arias ULTRASOUND - DUP EXTRACRANIAL TRE 06/15 0915 Report Impression - Status: SIGNED Entered: 06/15/2022 1258 IMPRESSION: 1. About 50-69% stenosis of right proximal inter nal carotid artery as above. 2. No flow-limiting left proximal internal carot id arterial stenosis. REFERENCES: SRU CRITERIA. The degree of internal carotid art kimberli stenosis is based on criteria defined by the Society of Radi ologists in Ultrasound (SRU). Normal is no stenosis. Mild is less than 50% stenosis. Moderate is 50-69% stenosis. Severe is greater than 69% stenosis to near occlusion. Near occlusion is a markedly narrowed lumen. Total occlusion is no detectable patent l umen. Impression By: [email or web address] - Aubrey Aguilar M.D. ULTRASOUND - DUP VEIN TRE 06/15 0916 Report Impression - Status: SIGNED Entered: 06/15/2022 1331 IMPRESSION: Greater saphenous vein is patent. Vein mapping a s described. Impression By: [email or web address] - Dale Kurtz Results: labs reviewed, vital signs reviewed, [facility] personally rev'd Telemetry Interpretation: Sinus bradycardia Diagnosis, Assessment Plan Plan discussed with: patient, collaborating MD, consultants, nurse Free Text DxA P Notes Free Text DxA P Notes: 67-year-old female with [facility] history of CAD, MA, prior PCI/MEG 11 years ago, hypertension, diabetes melli tus, CVA, peripheral neuropathy, Charcot's foot who presented to with chest pain. She was taken for left heart catheterization where she wa s found to have multivessel CAD with failed attempt to PCI the CUT OFF SAWYER LAD. Patient is transferred to [facility] facility for surgical revascularization. 1. Multivessel CAD CABG evaluation ongoing Continue aspirin, beta-xander, statin No active chest pain 2. Hypertension Normotensive Continue losartan and metoprolol 3. Diabetes mellitus Manage per primary team Appreciate the referral. Julius Washington 06/23/22 1213: Attestations Physician Attestation Agree w/findings plan: I have seen and examined the pt, I Agree with [facility] findings and plan as documented by Ursula Perkins. at [id number] Electronically Signed by Julius Washington MD on at 1213 RPT #:[id number] END OF REPORT 2022-06-15 05:47:00-00:00 [facility]ACL [facility] ([facility]) History Physical - Adult REPORT#:[id number] REPORT STATUS: Signed DATE:06/15/22 TIME: 546 PATIENT: KALA TURPIN UNIT #: [id number] ROOM/BED: [place] [address] : 57 AGE: 67 SEX: F ATTEND: Rosa Murrell MD ADM AUTHOR: Kassie Aden P * ALL edits or amendments must be made on the el Navm[employer]/computer document * Evelin Plascencia 06/15/22 0547: History of Present Illness HPI Chief complaint: Severe CAD PCP: PCP: Undefined Provider HPI: Very pleasant 67-year-old female with past medic al history of stroke, hypertension, hyperlipidemia, diabetes (on insul in), obstructive sleep apnea, PAD, 2 MIs in the past statu s post PCI/stenting (on Plavix at home), NonHodgkin' s lymphoma (2006) who was at home working on her computer when she suddenly developed severe chest pain radiating to left sh oulder and jaw. Presented to the emergency room, was evaluated by car diology and underwent left heart cath. Coronary angiogram revealed severe multivessel coronary artery disease involving LAD which is totally occluded after the midporti on; diagonal OM branch with proximal stenosis 60 to 70%, left circumflex wit h 80-90% stenosis. Patient transferred to [facility] for surgical revasc ularization. History Additional medical history: Stroke Hypertension Hyperlipidemia Diabetes Obstructive sleep apnea Coronary artery disease Charcot syndrome Non Hodgkin's lymphoma Additional surgical history: Exploratory laparotomy for infected mesh Additional family history: Father with hx of CAD Son of heart attack Alcohol use: Denies EtOH use Drug use: Denies recreational drugs Smoking status for patients 13 years old or olde r: Never Smoker Medication/Allergy-Vaccine Hx Medications: Home Medications: Medication Dose/Rte/Freq Days Qty Entered Last Max Daily Dose Reviewed LOSARTAN (COZAAR) 25 MG PO DAILY 06/15/2206/15 Strength: 25 MG TAB 0110 0113 HYDROCHLOROTHIAZIDE 12.5 MG PO DAILY 06/15/22 06/15/22 (HCTZ) 0110 0113 Strength: 12.5 MG CAP PARoxetine HCL (PAXIL) 20 MG PO DAILY 06/15/22 06/15/22 Strength: 20 MG TAB 0110 0113 METOPROLOL SUCC XL 25 MG PO DAILY 06/15/2205/25 (TOPROL XL) 011 0113 Strength: 25 MG TAB.SR.24H Melatonin (MELATONIN) 10 MG SL BEDTIME 06/15/22 06/15/22 Strength: 1 MG TAB 0111 0113 INSULIN NPH/REG INSULIN 130 UNITS SUBQ 06/15/22 06/15/22 HUM DAILY 0730 0112 0113 (NovoLIN 70/30) Strength: 100 UNIT/ML (70-30) VIAL INSULIN NPH/REG INSULIN 140 UNITS SUBQ 06/15/22 06/15/22 HUM DAILY 1700 0113 0113 (NovoLIN 70/30) Strength: 100 UNIT/ML (70-30) VIAL Current Hospital Medications: Ahfs Category Unknown Sig/William Start time Last Medication Dose Route Stop Time Status Admin Melatonin 6 MG BEDTIME 06/15 2099 AC (Melatonin) PO 07/15 2058 Cardiovascular Drugs Sig/William Start time Last Medication Dose Route Stop Time Status Admin Atorvastatin Calcium 40 MG 06/15 AC (LIPITOR) PO 07/15 2058 Metoprolol Tartrate 12.5 MG Q12HR 06/15 0900 C AN (LOPRESSOR) PO 07/15 0859 Metoprolol Tartrate 12.5 MG Q12HR 06/15 0900 AC 06/15 (LOPRESSOR) PO 07/15 0859 0947 Central Nervous System Agents Sig/William Start time Last Medication Dose Route Stop Time Status Admin Hydrocodone Bitart/ 1 TAB Q4H PRN PRN 06/15 121 5 AC 06/15 Acetaminophen PO 06/20 1214 1302 (NORCO 5/325) Aspirin 81 MG DAILY 06/15 09 AC 06/15 (ASPIRIN) PO 07/15 0859 0947 Acetaminophen 650 MG Q4H PRN PRN 06/15 0600 AC 06/15 (TYLENOL) PO 07/15 0559 0745 Acetaminophen 1,000 MG Q6H PRN PRN 06/15 0130 DC 06/15 (TYLENOL EXTRA PO 07/15 0129 0143 STRENGTH) Electrolytic, Caloric, And Faiza Sig/William Start time Last Medication Dose Route Stop Time Status Admin Dextrose/Water 125 ML ASDIR PRN 06/15 0600 CKD (DEXTROSE 10% IN IV 07/15 0559 WATER) Dextrose/Water 250 ML ASDIR PRN 06/15 0600 CKD (DEXTROSE 10% IN IV 07/15 0559 WATER) Gastrointestinal Drugs Sig/William Start time Last Medication Dose Route Stop Time Status Admin Magnesium Hydroxide 30 ML BEDTIME PRN PRN 06/15 0600 AC (MILK OF MAGNESIA) PO 07/15 0559 Ondansetron HCl 4 MG Q6H PRN PRN 06/15 0600 AC (ZOFRAN) IV 07/15 0559 Hormones And Synthetic Substit Sig/William Start time Last Medication Dose Route Stop Time Status Admin Insulin Human Lispro 0 AC HS 06/15 0730 AC 05/25 3 (HUMALOG) SUBQ 07/15 0729 1302 Glucagon 1 MG ASDIR PRN 06/15 0600 AC (GLUCAGON) IM 07/15 0559 Allergies: Coded Allergies: adhesive tape (RASH 06/15/22) niacin (Mild, ANXIETY 06/15/22) zolpidem (From AMBIEN) (CONFUSION 06/15/22) 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 Allergy/Immun: Denies: allergic reaction. Cardiovascular: Denies: chest pain, palpitations. GI: Denies: abdominal pain, nausea, vomiting. Neuro: Denies: dizziness, headache, vision change. Physical Exam VS/I O Vital Signs: Date Time Temp Pulse Resp B/P B/P Pulse O2 O2 Flow FiO2 Mean Ox Delivery Rate 06/15 0356 98.2 51 13 117/58 0.0 96 Room air 06/15 0252 53 13 93 06/15 0152 52 11 97 06/15 0108 98.4 67 13 123/58 0.0 94 Room air 24 hour I O ending at 0700: 06/15 0700 06/14 1900 Intake Total Output Total Balance Patient 210 lb Weight Weight Standing scale Measurement Method PATIENT WEIGHT: Weight (lb): 209 Weight (oz): 15.84 Weight (kg): 95.250 General appearance: alert, oriented, mental stat us normal, no respiratory distress Head/Eyes: atraumatic, normocephalic ENT: moist mucosal membranes Neck: non-tender Cardiovascular: regular rate rhythm, normal hear t sounds Respiratory: clear to auscultation, aerating wel l, symmetric expansion Abdomen/GI: soft, non-tender Extremities: moves all 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, oriented X 3, normal speech, n o motor deficits Psychiatry: normal affect, normal mood Results Findings/Data: Laboratory Tests: 06/15 06/15 06/15 06/15 06/15 1148 0755 0721 0605 0605 Chemistry POC Glucose (70 - 110 MG/DL) 254 H 144 H Hemoglobin A1c (4.8 - 6.0 %A1C) 8.3 H B-Natriuretic Peptide (0 - 100 PG/ML) 58.0 Coagulation Plt P2Y12 React Units (182 - 335 PRU) 230 06/15 06/15 0605 0111 Chemistry Sodium (134 - 147 mEq/L) 140 Potassium (3.4 - 5.0 mEq/L) 3.6 Chloride (100 - 108 mEq/L) 106 Carbon Dioxide (21 - 33 mEq/l) 28 Anion Gap (0 - 20) 10 BUN (7 - 18 mg/dL) 21 H Creatinine (0.6 - 1.3 mg/dL) 1.0 Glomerular Filtr Rate (80 - 90) 62.5 L Glucose (70 - 110 mg/dL) 124 H POC Glucose (70 - 110 MG/DL) 191 H Calcium (8.0 - 10.5 mg/dL) 9.6 Magnesium (1.80 - 2.40 mg/dL) 1.82 Total Bilirubin (0.0 - 1.0 mg/dL) 0.60 AST (15 - 37 IUnit/L) 15 ALT (30 - 65 IUnit/L) 13 L Total Alk Phosphatase (20 - 125 IUnit/L) 105 Total Protein (6.4 - 8.2 g/dL) 6.6 Albumin (3.4 - 5.0 g/dL) 3.50 Coagulation INR (0.8 - 1.2) 1.1 PT Patient/Control Mix (9.3 - 12.9 SECONDS) 12. 6 Hematology WBC (4.5 - 11.0 x10 3/uL) 6.9 RBC (3.54 - 5.02 x10 6/uL) 4.15 Hgb (11.0 - 15.0 g/dL) 12.9 Hct (33.0 - 45.0 %) 37.6 MCV (81.0 - 99.0 fL) 90.6 MCH (27.0 - 33.0 pg) 31.1 MCHC (33.0 - 37.0 g/dL) 34.3 RDW (11.5 - 14.5 %) 12.4 Plt Count (150 - 400 x10 3/uL) 164 MPV (7.0 - 9.0 fL) 10.7 H Neut % (Auto) (56.0 - 77.0 %) 51.9 L Lymph % (Auto) (14.0 - 32.0 %) 38.4 H [place] % (Auto) (4.8 - 9.0 %) 7.2 Eos % (Auto) (0.3 - 3.7 %) 2.0 Baso % (Auto) (0.0 - 2.0 %) 0.4 Neut # (Auto) (2.0 - 7.6 x10 3/uL) 3.59 Lymph # (Auto) (1.0 - 3.8 x10 3/uL) 2.66 [place] # (Auto) (0.1 - 0.8 x10 3/uL) 0.50 Eos # (Auto) (0.0 - 0.2 x10 3/uL) 0.14 Baso # (Auto) (0.0 - 0.2 x10 3/uL) 0.03 Abs Immat Gran (auto) (0.00 - 0.03 x10 3/uL) 0. 01 Add Manual Diff NO Immature Gran % (0.0 - 2.0 %) 0.1 Nucleated RBC % (0 - 0 %) 0.0 Nucleated RBCs # (Man) (0.0 - 0.1 x10 3/uL) 0.0 0 Radiology data: Recent Impressions: CAT SCAN - CT CHEST W/O CONTRAST 06/15 08 Report Impression - Status: SIGNED Entered: 06/15/2022 1339 IMPRESSION: 1. No acute abnormality in the chest. Scarring v ersus subsegmental atelectasis in the anterior recess of the right upper lobe. 2. Nonspecific anterior pericardial lymph node. Impression By: [email or web address] - Dale Arias ULTRASOUND - DUP EXTRACRANIAL TRE 06/15 914 Report Impression - Status: SIGNED Entered: 06/15/2022 1258 IMPRESSION: 1. About 50-69% stenosis of right proximal inter nal carotid artery as above. 2. No flow-limiting left proximal internal carot id arterial stenosis. REFERENCES: SRU CRITERIA. The degree of internal carotid art kimberli stenosis is based on criteria defined by the Society of Radi ologists in Ultrasound (SRU). Normal is no stenosis. Mild is less than 50% stenosis. Moderate is 50-69% stenosis. Severe is greater than 69% stenosis to near occlusion. Near occlusion is a markedly narrowed lumen. Total occlusion is no detectable patent l umen. Impression By: [email or web address] - Aubrey Aguilar M.D. ULTRASOUND - DUP VEIN TRE 06/15 0816 Report Impression - Status: SIGNED Entered: 06/15/2022 1331 IMPRESSION: Greater saphenous vein is patent. Vein mapping a s described. Impression By: [email or web address] - Dale Kurtz Diagnosis, Assessment Plan Orders: Procedure Date/time Status CONSISTENT CARBOHYDRATE DIET 06/15 B Active PHYSICAL THERAPIST CONSULT 06/15 1101 Active DUP VEIN TRE 06/15 0916 Complete DUP EXTRACRANIAL TRE 06/[address] CHEST W/O CONT 06/15 0824 Complete URINALYSIS WITHOUT CULTURE 06/15 0558 Active ADULT ECHO COMPLETE 06/15 0558 Complete Educate/Teach Patient 06/15 0556 Active Notify MD: Hypoglycemia 06/15 0556 Active NPO/Low Intake Insulin Instr 06/15 0556 Active Hypoglycemia Orders 06/15 0556 Active Educate/Teach Hypoglycemia 06/15 0556 Active Correctional Insulin Instr 06/15 0556 Active Blood Glucose Monitoring 06/15 0556 Active _RT: OXYGEN THERAPY 06/15 0552 Active Vital Signs 06/15 0552 Active Telemetry Monitoring 06/15 05 Active Educate/Teach Patient 06/15 0552 Active Notify MD Vitals 06/15 05 Active Notify MD - Labs 06/16 551 Active MRSA Protocol 06/15 05 Active IV Access 06/16 551 Active Intake Output 06/15 0452 Active Smoking Cessation Education 06/16 551 Active Weight: Obtain 06/15 0452 Active Conditional Diagnostic Test 06/15 0552 Active Activity 06/15 0552 Active COVID-19 Risk Assessment 06/15 0452 Active PHYSICIAN CONSULT 06/15 0452 Active LEVEL OF CARE 06/15 0552 Active ADMIT PATIENT (CPOE) 06/15 0552 Active PROTHROMBIN TIME 06/15 0549 Complete MAGNESIUM 06/15 0549 Complete HGBA1C% 06/15 0549 Complete COMPREHENSIVE METABOLIC PANEL 06/15 0549 Comple te CBC W/AUTO DIFF 06/15 0549 Complete B TYPE NATRIURETIC PEPT 06/15 0549 Complete Free Text DxA P Notes Free Text DxA P Notes: Very pleasant 67-year-old female with past medic al history of stroke, hypertension, hyperlipidemia, diabetes (on insul in), obstructive sleep apnea, PAD, 2 MIs in the past statu s post PCI/stenting (on Plavix at home), NonHodgkin' s lymphoma (2006) who was at home working on her computer when she suddenly developed severe chest pain radiating to left sh oulder and jaw. Presented to the emergency room, was evaluated by car diology and underwent left heart cath. Coronary angiogram revealed severe multivessel coronary artery disease involving LAD which is totally occluded after the midporti on; diagonal OM branch with proximal stenosis 60 to 70%, left circumflex wit h 80-90% stenosis. Patient transferred to [facility] for surgical revasc ularization. PLAN Coronary angiogram images re viewed with Dr. Rogel and findings discussed with the patient. Will benefit from surgical revascul arization. Initiate preop work-up for CABG Hold Plavix. Obtain platelet response test to Pl avix Carotid ultrasound Noncontrasted chest BLE venous Doppler for vein mapping and marking Completed echocardiogram Incentive spirometer teaching Physical therapy evaluation given Dionte toure and limited mobilization Further recommendations to follow. Thank you for the consultation. Patient was seen and plan reviewed with Peggy Palacios 06/16/22 1515: Attestations Physician Attestation Agree w/findings plan: I have seen and examined Ms. Turpin. I agree with the findings and plan as documented by INESSA Shah. Briefly, 67-year-old female transferred from outside facility with severe triple -vessel coronary artery disease. Patient will be nefit from surgical revascularization. I had a long discussion with the patient, explained to her the angiogram finding and ne ed for surgical revascularization. I have discussed with her the procedure, risk involved, benefit, alternatives, STS risk score, and complications. at 1411 at 1523 RPT #:[id number] END OF REPORT
[2022-10-06] MEDS ORDERED: FAMOTIDINE 20 MG/2 ML VIAL IV ONE (02:14)
[2022-10-06 02:23] LABS: Absolute Lymphocytes (CBC) 1.7 K/uL (0.7-4.9); Hematocrit 40.3 % (36.0-45.0); Lymphocytes % 8.7 % (15.3-44.8); MCV 88.9 fL (80-100); MPV 8.7 fL (7.6-11.3); RBC Red Blood Cell Count 4.53 M/uL (3.86-4.86)
[2022-10-06 02:44] LABS: Albumin 3.3 g/dL (3.4-5.0); Bilirubin Total 0.7 mg/dL (0.2-1.0); Potassium 3.2 mEq/L (3.5-5.1); Protein, Total 7.5 g/dL (6.4-8.2)
[2022-10-06 02:48] LABS: Troponin High Sensitivity 91.4 pg/mL (<58.9)
[2022-10-06] MEDS ORDERED: METOPROLOL TAR 25 MG TAB ONE (03:02)
[2022-10-06] MEDS ORDERED: AMIODARONE HCL 200 MG TAB ONE (03:02)
[2022-10-06] MEDS ORDERED: INSULIN -REGULAR HUMAN 50 UNIT/0.5 ML ML ONE (03:09)
[2022-10-06] MEDS ORDERED: MAGNESIUM SULFATE 1 gm IVPB 1 GM/100 ML BAG IV ONE (03:24)
[2022-10-06 03:39] LABS: Specific Gravity > 1.030 (1.005-1.030); Urine Bacteria None Seen /HPF (<20); Urine Bilirubin NEGATIVE (Negative); Urine Blood 2+ (Negative); Urine Clarity Clear (Clear); Urine Color Light-Yellow (Yellow); Urine Glucose 4+ (Over) (Negative); Urine Protein 1+ (Negative); Urine Urobilinogen Normal (Normal)
[2022-10-06] MEDS ORDERED: METOPROLOL TARTRATE 5 MG/5 ML INJ IV ONE (04:14)
--- NOTE | 2022-10-06 04:32 | EDPHYS ---
Physician Documentation [facility] Name: Kala Pedro Age: 67 yrs Sex: Female : 1955 Arrival Date: 10/06/2022 Time: 01:57 Bed 4 Private MD: ED Physician Ernie Venegas HPI: 10/06 02:03 This 67 yrs old Female presents to ER via EMS with complaints of vomiting. rn 02:03 The patient presents to the emergency department with nausea, vomiting. Onset: The rn symptoms/episode began/occurred yesterday. Possible causes: unknown. The symptoms are aggravated by nothing. The symptoms are alleviated by nothing. Associated signs and symptoms: Pertinent positives: nausea, vomiting, Pertinent negatives: abdominal pain, fever, GI bleeding. Severity of symptoms: At their worst the symptoms were moderate in the emergency department the symptoms are unchanged. It is unknown whether or not the patient has had similar symptoms in the past. EMS reports called 911 for vomiting, has been vomiting since yesterday. No fever. Patient denies abd pain. No diarrhea. did tell EMS that she fell 3 days ago and hit head, on plavix. EMS also reports glucose 477.. Historical: - Allergies: 02:02 Adhesives; rv 02:02 ambien; rv 02:02 Niacin; rv 02:02 zolpidem tartrate; rv - PMHx: 02:02 Anxiety; atypical seizure; charcot's syndrome; Depression; diabetes mellitus; rv Hypertensive disorder; Myocardial infarction; neuropathy; - PSHx: 02:02 cardiac stent x 2; rv 02:05 Coronary artery bypass graft; rv - Immunization history:: Adult Immunizations up to date. - Social history:: Smoking status: unknown. - Family history:: not pertinent. - Hospitalizations: : No recent hospitalization is reported. ROS: 02:03 Constitutional: Negative for fever, chills, and weight loss, Eyes: Negative for injury, rn pain, redness, and discharge, Neck: Negative for injury, pain, and swelling, Cardiovascular: Negative for chest pain, palpitations, and edema, Respiratory: Negative for shortness of breath, cough, wheezing, and pleuritic chest pain, Abdomen/GI: + nausea/vomiting Back: Negative for injury and pain, MS/Extremity: Negative for injury and deformity, Skin: Negative for injury, rash, and discoloration, Neuro: Negative for headache, weakness, numbness, tingling, and seizure. Exam: 02:03 Constitutional: This is a well developed, well nourished patient who is awake, sitting rn upright, slow to respond but answers questions. Head/Face: Normocephalic, small area of swelling on scalp/top of head, with central healing abrasion, no drainage Eyes: Pupils equal round and reactive to light, extra-ocular motions intact. Neck: No midline cervical tenderness. No Meningismus. Cardiovascular: Regular rate and rhythm. No pulse deficits. Respiratory: No increased work of breathing, no retractions or nasal flaring. Abdomen/GI: soft, no focal tenderness Skin: Warm, dry MS/ Extremity: Pulses equal, no cyanosis. Neuro: Awake, slow to respond, moves all 4 ext with equal strength, oriented to person/place/situation. Vital Signs: 02:00 BP 141 / 74; Pulse 96; Resp 17; Temp 98.4; Pulse Ox 100% on R/A; rv 03:00 BP 134 / 73; Pulse 138; Resp 18; Pulse Ox 100% on R/A; rv 04:00 BP 114 / 61; Pulse 116; Resp 18; Pulse Ox 100% on R/A; rv 05:00 BP 122 / 57; Pulse 103; Resp 19; Pulse Ox 100% on R/A; rv 06:49 BP 123 / 72; kd3 MDM: 01:59 Patient medically screened. rn 02:50 ED course: Pt came in with regular rate, now in afib/RVR, on amiodarone and metoprolol .rn 04:29 Differential diagnosis: head injury, SAH, subdural. Data reviewed: vital signs, nurses rn notes, lab test result(s), radiologic studies, CT scan, and as a result, I will admit patient. Consideration of Admission/Observation Patient was admitted/placed on observation. Escalation of care including admission/observation considered. Counseling: I had a detailed discussion with the patient and/or guardian regarding: the historical points, exam findings, and any diagnostic results supporting the discharge/admit diagnosis, lab results, radiology results, the need for further work-up and treatment in the hospital, the need to transfer to another facility, for higher level of care, [facility] does not immediately have the required specialist. Response to treatment: the patient's symptoms have markedly improved after treatment. 04:29 ED course: HR down to 98-115, radiology called and shows cortical contusions and SAH, rn no midline shift on CT head. reports hit head almost 1 week ago, on plavix. . 10/06 02:01 Order name: CBC with Diff; Complete Time: 02:44 rn 10/06 02:01 Order name: CMP; Complete Time: 02:51 rn 10/06 02:01 Order name: Lipase; Complete Time: 02:51 rn 10/06 02:01 Order name: Urinalysis w/ reflexes; Complete Time: 03:39 rn 10/06 02:01 Order name: Troponin High Sensitivity; Complete Time: 02:51 rn 10/06 05:17 Order name: Glucose, Ancillary Testing; Complete Time: 05:25 EDMS 10/06 02:01 Order name: CT Head Brain wo Cont rn 10/06 03:14 Order name: Abdomen EDMS 10/06 02:01 Order name: EKG; Complete Time: 02:02 rn 10/06 02:01 Order name: IV Saline Lock; Complete Time: 02:08 rn 10/06 02:01 Order name: Labs collected and sent; Complete Time: 02:18 rn 10/06 02:01 Order name: Glucose Level; Complete Time: 02:18 rn 10/06 02:01 Order name: EKG - Nurse/Tech; Complete Time: 02:50 rn Administered Medications: 02:09 Drug: Famotidine IVP 20 mg Route: IVP; Site: right antecubital; rv 05:26 Follow up: Response: No adverse reaction rv 02:56 Drug: amiodarone PO 200 mg Route: PO; rv 05:06 Follow up: Response: No adverse reaction rv 02:56 Drug: Metoprolol PO 25 mg Route: PO; rv 05:06 Follow up: Response: No adverse reaction rv 03:00 Drug: Insulin Regular Human IVP 10 units {Co-Signature: lg3 (Triny Roberts RN).} Route: rv IVP; Site: right antecubital; 05:06 Follow up: Response: No adverse reaction; Medication administered at discharge. rv 03:25 Drug: Magnesium Sulfate IVPB 1 grams Route: IVPB; Infused Over: 1 hrs; Site: right rv antecubital; 05:06 Follow up: Response: No adverse reaction; IV Status: Completed infusion rv 04:10 Drug: Metoprolol IVP 2.5 mg Route: IVP; Site: right antecubital; rv 05:25 Follow up: Response: No adverse reaction rv 05:02 Drug: Keppra IV 1000 mg Route: IV; Rate: calculated rate; Site: right antecubital; rv 05:26 Follow up: Response: No adverse reaction; Marked relief of symptoms rv 05:26 Follow up: IV Status: Completed infusion rv 05:55 Not Given (Physician Discretion): NS 0.9% IV 1000 ml IV at 1 bolus Per protocol; 1000 lg3 mL bolus Disposition Summary: 10/06/22 04:32 Transfer Ordered Transfer Location: [facility] rn Reason: Higher level of care rn Condition: Stable rn Problem: new rn Symptoms: have improved rn Accepting Physician: (10/06/22 06:50) kd3 Diagnosis - Traumatic subarachnoid hemorrhage rn - Cerebral contusion rn - Persistent atrial fibrillation rn - Altered mental status, unspecified rn Forms: - Medication Reconciliation Form rn - SBAR form varnish finisher time excluding procedures: 04:30 Critical care time: Bedside Care: 35 minutes, Family Intervention: 5 minutes. Total rn time: 40 minutes Signatures: Dispatcher [employer] EDMS Ernie Venegas MD MD rn Vicente, Ronaldo, RN RN Sandra Tsai RN RN sb3 Triny Roberts RN, lg3 Triny Roberts RN lg3 Corrections: (The following items were deleted from the chart) 03:14 02:01 Abdomen Pelvis W Con+CT.RAD.BRZ ordered. EDNC EDMS 06:50 04:32 rn kd3
--- NOTE | 2022-10-06 04:32 | ER ---
Nurse's Notes [facility] Name: Kala Pedro Age: 67 yrs Sex: Female : 1955 Arrival Date: 10/06/2022 Time: 01:57 Bed 4 Private MD: Diagnosis: Traumatic subarachnoid hemorrhage;Cerebral contusion;Persistent atrial fibrillation;Altered mental status, unspecified Presentation: 10/06 02:00 Chief complaint: EMS states: N/V SINCE YESTERDAY, UNABLE TO TOLERATE ANYTHING. BGL 477. rv TAKES INSULIN. RECENT CABG 4 WKS AGO. Coronavirus screen: Vaccine status:. Ebola Screen: Patient negative for fever greater than or equal to 101.5 degrees Fahrenheit, and additional compatible Ebola Virus Disease symptoms Patient denies exposure to infectious person. Patient denies travel to an Ebola-affected area in the 21 days before illness onset. Initial Sepsis Screen: Does the patient meet any 2 criteria? No. Patient's initial sepsis screen is negative. Does the patient have a suspected source of infection? No. Patient's initial sepsis screen is negative. Risk Assessment: Do you want to hurt yourself or someone else? Patient reports no desire to harm self or others. Onset of symptoms was October 05, 2022. 02:00 Method Of Arrival: EMS: [facility] rv 02:00 Acuity: LEXUS 2 rv Triage Assessment: 02:06 General: Appears ill, Behavior is. Pain: Denies pain. Neuro: Level of Consciousness is rv confused, Oriented to person, place. Cardiovascular: Capillary refill < 3 seconds Patient's skin is warm and dry. Respiratory: Airway is patent Respiratory effort is even, unlabored. GI: Reports nausea, vomiting. Derm: Skin is intact. Historical: - Allergies: 02:02 Adhesives; rv 02:02 ambien; rv 02:02 Niacin; rv 02:02 zolpidem tartrate; rv - PMHx: 02:02 Anxiety; atypical seizure; charcot's syndrome; Depression; diabetes mellitus; rv Hypertensive disorder; Myocardial infarction; neuropathy; - PSHx: 02:02 cardiac stent x 2; rv 02:05 Coronary artery bypass graft; rv - Immunization history:: Adult Immunizations up to date. - Social history:: Smoking status: unknown. - Family history:: not pertinent. - Hospitalizations: : No recent hospitalization is reported. Screenin:[address] [facility] ED Fall Risk Assessment (Adult) History of falling in the last 3 months, rv including since admission No falls in past 3 months (0 pts) Confusion or Disorientation Yes (5 pts) Intoxicated or Sedated No (0 pts) Impaired Gait No (0 pts) Mobility Assist Device Used No (0 pt) Altered Elimination No (0 pt) Score/Fall Risk Level 3 or more points = High Risk Oriented to surroundings, Maintained a safe environment, Educated pt \T\ family on fall prevention, incl call for assistance when getting out of bed, Assessed \T\ reinforced patient's understanding of fall precautions, Provided non-skid footwear, Hourly rounding (assess needs \T\ fall precautionary measures) done, Used ambulatory aids as needed (educated on \T\ assisted with), Used gait belt as appropriate Implemented a Fall Risk Plan of Care, Apply high fall risk patient identification: yellow non skid footwear/ fall signage, Placed fall mat w/ non beveled edge next to bed, Activated bed/chair alarm, Remained w/in arm's length of patient and in sight while toileting, Offered frequent toileting (1:1 observation), Remained with patient while ambulating, Utilized family, sitter, or virtual inventory control/shipping receiving as indicated. Abuse screen: Denies threats or abuse. Denies injuries from another. Nutritional screening: No deficits noted. Tuberculosis screening: No symptoms or risk factors identified. Assessment: 05:24 General: [facility] called [facility] to initiate transfer. ETA was about 0630. kd3 [employer] then called [facility] and the ETA in 20 minutes from this time. [place] Transfer request was cancelled and pt will be transported with [facility] service. . 05:54 General: report called to JANNY Hager with [facility] ER. lg3 Vital Signs: 02:00 BP 141 / 74; Pulse 96; Resp 17; Temp 98.4; Pulse Ox 100% on R/A; rv 03:00 BP 134 / 73; Pulse 138; Resp 18; Pulse Ox 100% on R/A; rv 04:00 BP 114 / 61; Pulse 116; Resp 18; Pulse Ox 100% on R/A; rv 05:00 BP 122 / 57; Pulse 103; Resp 19; Pulse Ox 100% on R/A; rv 06:49 BP 123 / 72; kd3 ED Course: 01:59 Patient arrived in ED. rn 01:59 Ernie Venegas MD is Attending Physician. rn 02:00 Geovanny Mcgrath RN is Primary Nurse. rv 02:02 Triage completed. rv 02:07 Arm band placed on right wrist. rv 02:08 Patient has correct armband on for positive identification. Provided Education on: npo. rv 02:08 Maintain EMS IV. Dressing intact. Good blood return noted. Site clean \T\ dry. Gauge \T\ rv site: g18 rac. 02:08 No provider procedures requiring assistance completed. rv 03:39 CT Head Brain wo Cont In Process Unspecified. EDMS 03:39 Abdomen In Process Unspecified. EDMS 04:29 Initiated transfer with Olesya Montejo at [facility]. rv1 04:33 Pt accepted to [facility] ER by Dr. Mendosa. rv1 05:37 [facility] called back and stated that their truck went out of service and now will kd3 not arrive until after 7 am. Will initiate transfer with lorene. 05:39 [facility] ETA 0630. kd3 06:49 Patient admitted, IV remains in place. kd3 Administered Medications: 02:09 Drug: Famotidine IVP 20 mg Route: IVP; Site: right antecubital; rv 05:26 Follow up: Response: No adverse reaction rv 02:56 Drug: amiodarone PO 200 mg Route: PO; rv 05:06 Follow up: Response: No adverse reaction rv 02:56 Drug: Metoprolol PO 25 mg Route: PO; rv 05:06 Follow up: Response: No adverse reaction rv 03:00 Drug: Insulin Regular Human IVP 10 units {Co-Signature: lg3 (Triny Roberts RN).} Route: rv IVP; Site: right antecubital; 05:06 Follow up: Response: No adverse reaction; Medication administered at discharge. rv 03:25 Drug: Magnesium Sulfate IVPB 1 grams Route: IVPB; Infused Over: 1 hrs; Site: right rv antecubital; 05:06 Follow up: Response: No adverse reaction; IV Status: Completed infusion rv 04:10 Drug: Metoprolol IVP 2.5 mg Route: IVP; Site: right antecubital; rv 05:25 Follow up: Response: No adverse reaction rv 05:02 Drug: Keppra IV 1000 mg Route: IV; Rate: calculated rate; Site: right antecubital; rv 05:26 Follow up: Response: No adverse reaction; Marked relief of symptoms rv 05:26 Follow up: IV Status: Completed infusion rv 05:55 Not Given (Physician Discretion): NS 0.9% IV 1000 ml IV at 1 bolus Per protocol; 1000 lg3 mL bolus Medication: 02:08 VIS not applicable for this client. rv Outcome: 04:32 ER care complete, transfer ordered by . rn 06:49 Transferred by ground EMS to [facility], Transfer form completed. kd3 X-rays sent w/ patient. 06:49 Condition: stable 06:49 Instructed on the need for transfer. 06:50 Patient left the ED. kd3 Signatures: Dispatcher [employer] EDMS Ernie Venegas MD MD rn Vicente, Ronaldo RN JANNY rv Triny Roberts RN RN lg3 Sandra Lima RN JANNY 3 Renata Williamson rv Triny Roberts RN lg3 Corrections: (The following items were deleted from the chart) 05:47 05:45 Initiated transfer with Olesya Montejo at [facility] rv1 rv1 05:57 05:54 General: report called to JANNY Hager with [facility] ER. lg3 lg3
[2022-10-06] MEDS ORDERED: LEVETIRACETAM 500 MG/5 ML VIAL IV ONE (05:09)
[2022-10-06] MEDS ORDERED: NA CHLORIDE 0.9% 100 ML ONE (05:09)
[2022-10-06 07:31] VITALS: TEMP 98.4; O2SAT 100
[2022-10-06 07:38] VITALS: BP 123/72
--- NOTE | 2022-10-06 10:16 | RAD REPORT ---
EXAM DESCRIPTION: CT - Head Brain Wo Cont - 10/06/2022 6:34 am CLINICAL HISTORY: Recent fall/head injury, vomiting COMPARISON: 04/26/2022 TECHNIQUE: Axial CT of the head obtained from the skull apex to the skull base without contrast. Thi s exam was performed according to our departmental dose-optimization program, which includes automate d exposure control, adjustment of the mA and/or kV according to patient size and/or use of iterative reconstruction technique. FINDINGS: Linear hyperdensity in the right occipital sulcal space as well as right parieto-occipital subcortical hypodensity likely representing edema.. No significant mass effect or midline shift. The ventricular system and sulcal spaces are mildly enlarged compatible with mild cerebral atrophy. Sc attered areas of hypodensity throughout the supratentorial white matter are nonspecific and may be re lated to chronic small vessel ischemic change. The visualized paranasal sinuses and mastoid air cells are well aerated. No skull fracture identifi ed. Visualized orbits and globes are unremarkable. Atherosclerotic calcification of the intracranial internal carotid arteries. Right posterior scalp contusion. IMPRESSION: 1. Minimal right occipital subarachnoid hemorrhage with mild cortical contusion. No sign ificant mass effect or midline shift. Electronically signed by: Daniel La 10/06/2022 4:25 AM CDT Due to temporary technical issues with the PACS/Fluency reporting system, reports are being signed by the in house radiologists without review as a courtesy to insure prompt reporting. The interpreting radiologist is fully responsible for the content of the report.
--- NOTE | 2022-10-06 10:19 | RAD REPORT ---
EXAM DESCRIPTION: CT - Abdomen Pelvis Wo Contrast - 10/06/2022 6:34 am CLINICAL HISTORY: NAUSEA / VOMITING COMPARISON: None Available. TECHNIQUE: CT of the abdomen and pelvis without IV contrast. Evaluation of the solid organs and vasc ulature is suboptimal due to lack of IV contrast. This exam was performed according to our department al dose-optimization program, which includes automated exposure control, adjustment of the mA and/or kV according to patient size and/or use of iterative reconstruction technique. FINDINGS: Lung Bases: The visualized lung bases are clear. Bones: Multilevel endplate spondylosis and facet arthropathy. Abdomen: Liver: The liver has normal size and density. Gallbladder: Calcified gallstones with likely gallbladder sludge. Spleen, Pancreas, and Adrenal Glands: Bilateral adrenal thickening without focal nodularity. Kidneys: The kidneys have normal size without evidence of hydronephrosis. No obstructing ureteral dylan culi. Vasculature: Aortoiliac atherosclerosis. IVC is unremarkable. Stomach: The stomach and duodenum have normal course. Other: No free intraperitoneal air. No free fluid or lymphadenopathy. Fat-containing umbilical he rnia. Pelvis: Bladder: Urinary bladder is unremarkable. Bowel: No dilated loops of large or small bowel. Scattered diverticula colon. Appendix: Normal appendix. Pelvis: Prior hysterectomy. IMPRESSION: 1. Cholelithiasis with likely gallbladder sludge. 2. Diverticulosis without evidence of acute diverticulitis. Electronically signed by: Daniel La 10/06/2022 4:31 AM CDT Due to temporary technical issues with the PACS/Fluency reporting system, reports are being signed by the in house radiologists without review as a courtesy to insure prompt reporting. The interpreting radiologist is fully responsible for the content of the report.
--- NOTE | 2022-10-09 11:53 | EKG ---
Test Date: 2022-10-06 Test Time: 02:21:45 Bumper Straightener: KARINA MEASUREMENT RESULTS: Intervals: Rate: 130 [place]: QRSD: 84 QT: 352 QTc: 518 [place]: P: [place]: QRS: 81 T: -66 INTERPRETIVE STATEMENTS: Atrial fibrillation with premature ventricular or aberrantly conducted complexes ST & T wave abnormality, consider inferior ischemia or digitalis effect Abnormal ECG Compared to ECG 06/13/2022 20:01:30 Ventricular premature complex(es) now present ST (T wave) deviation now present Possible ischemia now present Sinus bradycardia no longer present Electronically Signed On 10-09-22 11:47:33 CDT by Martinez Linn
== END 2022-10-06 06:50 | disposition short-term general hospital (02) ==
LOC: ER 01:57
DX: S06.6X0A Traumatic subarachnoid hemorrhage without loss of consciousness, initial encounter (principal); I48.19 Other persistent atrial fibrillation; I10 Essential (primary) hypertension; R11.2 Nausea with vomiting, unspecified; E11.9 Type 2 diabetes mellitus without complications; Z95.1 Presence of aortocoronary bypass graft; Z95.818 Presence of other cardiac implants and grafts; Z88.8 Allergy status to other drugs, medicaments and biological substances; Z91.048 Other nonmedicinal substance allergy status
CPT/HCPCS: 96365; 93005; 85025; 81001; 36415; 82947; 84484; 83690; 80053; 70450; 74176; 96375; 99285; J1815; J3475; J1953

== ENCOUNTER 2022-12-08 09:25 | Emergency (ER) | payer OTHER ==
--- OUTSIDE RECORDS SUMMARY | 2022-12-08 09:34 | XMS REPORT | Continuity of Care Document ---
:[address] [facility] t Address [address] [facility] [address] [place] [address] Care Team Providers Name Role Phone Alice Wiseman Primary Care Physician LASHAUN PARKER Attending Clinician Unavailable Ovidio Cardoza MD Attending Clinician Grace Frazier LCSW Attending Clinician Unavailable PASCALE LOPEZ Attending Clinician Unavailable Pascale Lopez Attending Clinician Doctor Unassigned, [place] Attending Clinician Unavailable Monique Cheng Attending Clinician Unavailable Bang Patel Attending Clinician Unavailable LUX BARAJAS Attending Clinician Unavailable GEORGIA AHMADI Attending Clinician Unavailable [place] Murillo Attending Clinician JONATHAN BEARD Admitting Clinician Unavailable Jonathan Beard Admitting Clinician ALICE MCGOVERN Admitting Clinician Unavailable Robert Ochoa Admitting Clinician Unavailable EDDOC, GENERIC FOR EDM Admitting Clinician Unavailable Payers Payer Name Policy Type Policy Number Effective Date Expiration Date S steven MEDICARE PART A [id number] 2019 AND B 00:00:00 Problems Condition Condition Condition Status Onset Resolution Last Treating Co mments Source Name Details Category Date Date Treatment Clinician Date SUBARACHNO SUBARACHN Diagnosis Active 2022-10-06 Memoria ID OID 7-14 11:24:00 l HEMORRHAGE HEMORRHAGE 00:00: He rmann Active 00 10/06/2022 [facility] OTER OTER Diagnosis Active 2022-11-06 Mem oria NONTRAUMAT NONTRAUMAT 10-06 21:52:00 l IC IC 00:00: [place] SUBARACHNO SUBARACHNO 00 ID ID HEMORRHAG HEMORRHAG Active 10/06/2022 [facility] No known No known Disease Unive rs active active ity of problems problems [facility] Essential Essential Problem Active 2022-10-14 Memoria hypertensi hypertensi 04:52:14 l on on [place] (disorder) (disorder) Active Problem 10/14/2022 [facility] Hyperlipid Hyperlipi Problem Active 2022-10-14 Memoria emia demia 04:52:14 l (disorder) (disorder) He rmann Active Problem 10/14/2022 [facility] OTHER OTHER Diagnosis Active 2022-11-06 Mem oria NONTRAUMAT NONTRAUMAT 21:52:00 l IC IC [place] SUBARACHNO SUBARACHNO ID ID HEMORRHA HEMORRHA Active [facility] Allergies, Adverse Reactions, Alerts Allergy Allergy Status Severity Reaction(s) Onset Inactive Treating Comm ents Source Name Type Date Date Clinician niacin DA Active MT ANXIETY [facility] 3-23 Clear 00:00: Browne 00 [facility] adhesive DA Active U RASH [facility] tape 3-23 Clear 00:00: Browne 00 [facility] zolpidem DA Active U CONFUSION [facility] 3-23 Clear 00:00: Browne 00 [facility] Ambien Ambien Active [facility] [place] NO KNOWN Drug Active Univers ALLERGIE Class ity of S [facility] Social History Social Habit Start Date Stop Date Quantity Comments Source History SDOH 2022-10-18 2022-10-18 4 [facility] 00:00:00 00:00:00 History SDOH Food 2022-10-18 2022-10-18 [facility]00 00:00:00 History SDOH Food 2022-10-18 2022-10-18 1 [facility] Scarcity 00:00:00 00:00:00 History SDOH 2022-10-18 2022-10-18 2 [facility] Med 00:00:00 00:00:00 History SDOH 2022-10-18 2022-10-18 2 [facility] Non-Med 00:00:00 00:00:00 History SDOH 2022-10-18 2022-10-[address] [facility] Housing Unable to 00:00:00 00:00:00 Pay History SDOH 2022-10-18 2022-10-[address] [facility] Housing Places 00:00:00 00:00:00 Lived History SDOH 2022-10-18 2022-10-[address] [facility] Housing Homeless 00:00:00 00:00:00 Last Year Exposure to 2021-09-20 2021-09-30 Not sure [facility] SARS-CoV-2 (event) 00:00:00 18:06:00 Medica l Branch Sex Assigned At [address] [facility] 00:00:00 00:00:00 Smoking Status Start Date Stop Date Source Tobacco smoking consumption unknown [facility] Tobacco smoking status [facility] Medications Ordered Filled Start Stop Current Ordering Indication Dosage Frequency Signature Comments Components Source Medication Medication Date Date Medication? Clinician (SIG) Name Name Mervin 100 Yes 30 unit, Mem oria units/mL 7-19 SUB-Q, l 20:38: Daily, 0 [place] 00 Refill(s) NovoLOG Yes 15 unit, Memori a FlexPen 100 7-19 SUB-Q, l units/mL 20:38: TID-Before Her velázquez injectable 00 Meals, 0 solution Refill(s) apixaban 5 Yes 5 mg = 1 Mem oria mg oral 7-19 tab, PO, l tablet 20:32: Q12H, For Luan n 00 Atrial Fibrillati on, 0 Refill(s) amoxicillin Yes 875 mg = 1 Memoria 875 mg oral 7-19 tab, PO, l tablet 20:31: BID, X 14 Luan n 00 day, # 28 tab, 0 Refill(s), Pharmacy: [facility] [id number], 170.18, cm, 10/09/22 16:48:00 CDT, Height, 72.727, kg, 10/09/22 16:48:00 CDT, Weight Bactrim DS Yes 2 tab, PO, M emoria 800 mg- 160 7-19 BID, X 14 l mg oral 20:31: day, # 56 Kasandra nn tablet 00 tab, 0 Refill(s), Pharmacy: [facility] [id number], 170.18, cm, 10/09/22 16:48:00 CDT, Height, 72.727, kg, 10/09/22 16:48:00 CDT, Weight gabapentin Yes 300 mg = 1 M emoria 300 mg oral 7-17 cap, PO, l capsule 19:30: Q8H, 0 [place] 00 Refill(s) PARoxetine Yes 40 mg = 2 Me moria 20 mg oral 7-17 tab, PO, l tablet 19:20: Daily, 0 [place] 00 Refill(s) atorvastati Yes 40 mg = 1 M emoria n 40 mg 7-17 tab, PO, l oral tablet 19:18: Bedtime, 0 [place] 00 Refill(s) AMIODarone Yes 200 mg = 1 M emoria 200 mg oral 7-17 tab, PO, l tablet 19:17: BID, 0 [place] 00 Refill(s) aspirin 81 Yes 81 mg = 1 Me moria mg tablet, 7-17 tab, PO, l enteric 19:17: Daily, 0 Luan n coated 00 Refill(s) Metoprolol Yes 25 mg = 1 Me moria Succinate 7-16 tab, PO, l ER 25 mg 20:08: Daily, 0 Kasandra nn oral 00 Refill(s) tablet, extended release Ozempic (1 Yes 0 Memoria mg dose) 4 7-16 Refill(s) l mg/3 mL 17:35: [place] subcutaneou 00 s solution HYDROcodone 2016-03 Yes 1{tbl} Take 1 Un stephen -acetaminop 1-06 tablet by marcos (NORCO) 00:00: mouth [place] 5-325 mg 00 [...] ity o f mg tablet 14:24: daily. [place] [facility] insulin 2016-0 Yes inject Univers [...] 07 Medical 24 hr Branch tablet doxycycline 2016 Yes 100mg Take 100 U nivers (MONODOX) 7-30 mg by ity of 100 mg 14:24: mouth 2 [place] capsule 07 (two) Medical times Branch daily. paroxetine 2016- Yes 40mg Take 40 mg U nivers (PAXIL) 40 7-30 by mouth ity o f mg tablet 14:24: daily. [address] Branch insulin 2015- Yes inject Univers 70/30 7-30 under the ity of (NOVOLIN 14:24: skin 2 [place] 70/30) 100 07 (two) Medical unit/mL times Branch (70-30) daily injection before breakfast and dinner. gabapentin 2016- Yes 600mg Take 600 Un stephen (NEURONTIN) 7-30 mg by ity of 600 mg 14:24: mouth 3 [place] tablet 07 (three) Medical times Branch daily. traZODONE Yes 100mg Take 100 Uni vers (DESYREL) 7-30 mg by ity of 100 mg 14:24: mouth at [place] tablet 07 bedtime. Medical Branch metoprolol Yes 25mg Take 25 mg U nivers succinate 7-30 by mouth ity of XL (TOPROL 14:24: daily. [place] XL) 25 mg 07 Medical 24 hr Branch tablet doxycycline Yes 100mg Take 100 U nivers (MONODOX) 7-30 mg by ity of 100 mg 14:24: mouth 2 [place] capsule 07 (two) Medical times Branch daily. paroxetine Yes 40mg Take 40 mg U nivers (PAXIL) 40 7-30 by mouth ity o f mg tablet 14:24: daily. [address] Branch insulin Yes inject Univers 70/30 7-30 under the ity of (NOVOLIN 14:24: skin 2 [place] 70/30) 100 07 (two) Medical unit/mL times Branch (70-30) daily injection before breakfast and dinner. losartan-hy 2016-0 Yes 1{tbl} Take 1 Un stephen drochloroth 7-30 tablet by ity of iazide 14:24: mouth [place] (HYZAAR) 06 daily. Medical 100-12.5 mg Branch per tablet clopidogrel 2015- Yes 75mg Take 75 mg Univers (PLAVIX) 75 7-30 by mouth ity of mg tablet 14:24: daily. [address] losartan-hy Yes 1{tbl} Take 1 Un stephen drochloroth 7-30 tablet by ity of iazide 14:24: mouth [place] (HYZAAR) 06 daily. Medical 100-12.5 mg Branch per tablet clopidogrel Yes 75mg Take 75 mg Univers (PLAVIX) 75 7-30 by mouth ity of mg tablet 14:24: daily. [address] losartan-hy Yes 1{tbl} Take 1 Un stephen drochloroth 7-30 tablet by ity of iazide 14:24: mouth [place] (HYZAAR) 06 daily. Medical 100-12.5 mg Branch per tablet clopidogrel Yes 75mg Take 75 mg Univers (PLAVIX) 75 7-30 by mouth ity of mg tablet 14:24: daily. [address] ranitidine Yes 150mg Take 1 Univ ers [...] 2021-09-30 23:06:00 150 mm[Hg] Univer [facility]ity of [facility] Diastolic blood 2021-09-30 23:06:00 59 mm[Hg] Unive rsity [facility] Heart rate 2021-09-30 23:06:00 68 /min [facility] Respiratory rate 2021-09-30 23:06:00 18 /min [facility] ersity [facility] Body height 2021-09-30 23:06:00 154.9 cm [facility] Body weight 2021-09-30 23:06:00 90.719 kg [facility] BMI 2021-09-30 23:06:00 37.79 kg/m2 [facility] Medical Branch Oxygen saturation in 2021-09-30 23:06:00 96 /min University Arterial blood by [facility] Pulse oximetry Branch Temperature Oral (F) 2022-10-11 20:49:00 98.0 F [facility] [place] Systolic (mm Hg) 2022-10-11 17:13:00 Wilner lucrecia [place] Diastolic (mm Hg) 2022-10-11 17:13:00 Mem orial [place] Heart Rate 2022-10-11 04:57:00 [facility] [place] Temperature Oral (F) 2022-10-11 04:26:00 98.3 F [facility] [place] Height 2022-10-09 21:48:00 170.18 cm [facility] [place] Weight 2022-10-09 21:48:00 [facility] [place] Height 2022-10-06 12:42:00 5 [ft_i] [facility] [place] BMI Calculated 2022-10-06 12:42:00 Nguyendorina al [place] Weight 2022-10-06 12:42:00 [facility] Procedures Procedure Date / Time Performed Performing Clinician [facility] e HOME HEALTH - OTHER 2022-08-04 05:01:00 Doctor Unassigned, No Un iversity of [facility] Branch [id number] 2022-07-13 00:00:00 BYRJO01 [facility] [id number] 2022-07-13 00:00:00 BYRJO01 [facility] [id number] 2022-07-13 00:00:00 BYRJO01 [facility] [id number] 2022-06-21 00:00:00 HONORIO [facility] [id number] 2022-06-16 00:00:00 CHAAB.01 [facility] [id number] 2022-06-16 00:00:00 CHAAB.01 [facility] [id number] 2022-06-16 00:00:00 CHAAB.01 [facility] [id number] 2022-06-16 00:00:00 CHAAB.01 [facility] [id number] 2022-06-16 00:00:00 CHAAB.01 [facility] [id number] 2022-06-16 00:00:00 CHAAB.01 [facility] XR FOOT 3+ VW RIGHT 2021-09-30 23:27:38 [place] [facility] Encounters Start End Encounter Admission Attending Care Care Encounter Source Date/Time Date/Time Type Type Clinicians Facility Department ID 2022-10-18 Outpatient [facility] [id number] [place] 15:03:54 [id number] [facility] 2022-10-12 Outpatient [facility] [id number] [place] 15:19:53 [id number] [facility] 2022-10-10 Outpatient [facility] [id number] [place] 07:23:51 [id number] [facility] 2022-10-09 Outpatient [facility] [id number] [place] 15:39:15 [id number] [facility] 2022-12-01 2022-12-01 [facility] [id number] [place] 08:00:00 08:00:00 [facility] 2022-11-15 2022-11-15 Outpatient [facility] [id number] [place] 13:30:00 13:30:00 [facility] 2022-10-18 2022-10-18 Telemedici Sony [facility] [id number] [place] 15:00:00 16:34:[address] [id number] Health [id number] 2022-10-16 2022-10-16 Patient Grace Frazier [facility] [id number] [place] 00:00:00 00:00:00 Outreach Grace Frazier [address] [id number] Health [id number] 2022-10-06 2022-10-11 Inpatient [facility] [id number] Memoria 12:42:00 22:36:[address] 2022-10-06 2022-10-11 Inpatient Lidia LOPEZ, [facility] [id number] [facility] 20:19:00 17:36:00 PASCALE Ramirez 2022-10-06 2022-10-11 Inpatient E JESSICA, [facility] [id number] [facility] 20:19:00 17:36:00 PASCALE 2022-10-06 2022-10-11 Outpatient Jessica, [facility] [id number] 07:42:00 17:36:00 Pascale Ramirez Nathan 2022-08-04 2022-08-04 Orders Doctor NATASHA [id number] Univers 00:00:00 00:00:00 Only Unassigned, [place] [id number] [facility] [id number] Carlos as [id number] [address] 2022-07-28 2022-07-28 Outpatient R [facility] [id number] Univers 00:00:00 00:00:00 ity [facility] 2022-07-12 2022-07-17 Inpatient EM Prosper, [facility] MEDI.01 [id number] [facility] 20:24:00 18:15:00 Monique 03 [facility] 2022-06-15 2022-06-25 Inpatient EM Jorge, [facility] INTE.02 [id number] [facility] 05:52:00 12:54:00 Bang 16 [facility] 2021-10-07 2021-10-07 [facility] [id number] Univers 11:15:00 11:15:00 LUX navarro [facility] 2021-10-07 2021-10-07 [facility] [id number] Univers 10:30:00 10:30:00 LUX navarro [facility] 2021-09-30 2021-09-30 [facility] [id number] Univers 18:16:43 23:59:00 GEORGIA navarro o f [facility] 2021-09-30 2021-09-30 [facility] [id number] Univers 18:16:43 23:59:00 Encounter [facility] [id number] ity of [place] [id number] Carlos as MELCHOR?BLEA [id number] Me dical ALVERTO [facility] OFFICE [facility] 2021-09-30 2021-09-30 Urgent [facility] [id number] Univers 18:00:00 18:34:09 Care [facility] [id number] i ty of [place] [id number] Carlos as MELCHOR?BLEA [id number] [place] marely [place] [facility] OFFICE [facility] 2021-09-30 2021-09-30 Outpatient R [facility] [id number] Univers 18:00:00 18:00:00 [facility] o f [facility] 2021-09-30 2021-09-30 Outpatient R [facility] [id number] Univers 17:00:00 17:00:00 [facility] 2020-03-05 2020-03-05 Outpatient R [facility] [id number] Univers 14:20:00 14:20:00 [facility] Results Test Description Test Time Test Comments Results Result Comments Source POINT OF CARE 2022-10-11 21:59:00 Test Item Value Reference Range Interpretation Comme nts Glucose POC (test code = Glucose POC) 91 70-99 [id number] 18:16:00 Test Item Value Reference Range Interpretation Comments Glucose Lvl (test code = Glucose Lvl) 203 70-99 [id number] 18:16:00 Test Item Value Reference Range Interpretation Comments BUN (test code = BUN) 13 - [id number] 18:16:00 Test Item Value Reference Range Interpretation Comments Creatinine Lvl (test code = Creatinine 0.94 0.50-1.40 Lvl) [facility]entonQkuigqqSBTAMXLKS1949-15-30 18:16:00 Test Item Value Reference Range Interpretation Comments Sodium Lvl (test code = Sodium Lvl) 141 135-145 [facility] Den[id number] 18:16:00 Test Item Value Reference Range Interpretation Comments Potassium Lvl (test code = Potassium 4.6 3.5-5.1 Lvl) [id number] 18:16:00 Test Item Value Reference Range Interpretation Comments Chloride Lvl (test code = Chloride Lvl) 110 95-109 [facility] Denton[id number] 18:16:00 Test Item Value Reference Range Interpretation Comments CO2 (test code = CO2) 26 24-32 [facility] [id number] 18:16:00 Test Item Value Reference Range Interpretation Comments AGAP (test code = AGAP) 9.6 10.0-20.0 [facility] [id number] 18:16:00 Test Item Value Reference Range Interpretation Comments Calcium Lvl (test code = Calcium Lvl) 8.8 8.5-10.5 [facility] Den[id number] 18:16:00 Test Item Value Reference Range Interpretation Comments eGFR (test code = eGFR) 67 [facility] [id number] 14:25:35 Test Item Value Reference Range Interpretation Comments RADRPT (test code EXAM: MRI BRAIN WITH AND = RADRPT) WITHOUT CONTRASTDATE: 10/11/2022INDICATION: - 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 PMH of HTN, CVA, CAD, CABG, afib with recent head injury and hematoma formation at site with purulence. S/p I\\T\\D with surgery..COMPARISON: MRI brain 10/07/2022, CT head 10/06/2022.TECHNIQUE: Multiplanar, multisequence MRI of the brain with and without contrast. IV contrast: Refer to development technologist documentationFINDINGS:There is hyperintense T2/FLAIR signal abnormality involving the subcortical white matter in the parietal and occipital lobes bilaterally. This remains stable in extent and distribution compared to prior exam. Tiny focus of susceptibility artifact/small hemorrhage in the left occipital lobe. There are foci of hyperintense signal on DWI without ADC correlate involving the medial left parietal lobe and the lateral aspect of the right frontal lobe. These signal changes are stable compared to prior exam.No intracranial mass or mass effect. There are mild chronic microvascular ischemic changes of the white matter. Remote lacunar infarct in the left periventricular white matter.There is mild loss with mild enlargement of the lateral ventricles and accentuation of the cortical sulci and bifrontal extra-axial spaces.The intracranial arterial and venous structures demonstrate normal flow voids.Unroofed or ulcerated wound in the right parietal scalp. The subjacent calvarium maintains normal T1 signal without pathologic enhancement. There is extensive soft tissue edema throughout the right parieto-occipital scalp in the right side of the neck.The visualized paranasal sinuses are clear. Left mastoid effusion.IMPRESSION: 1. Unroofed or ulcerated lesion in the right parietal scalp without evidence of osseous extension in the subjacent calvarium.2. 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 Stable tiny areas of ischemia, PRES versus embolic infarcts. [facility]2023-07-19 14:16:00 Test Item Value Reference Range Interpretation Comments Gluc POC Comment 1 (test code Notified RN/MD = Gluc POC Comment 1) [id number] 09:09:00 Test Item Value Reference Range Interpretation Comments Phosphorus (test code = Phosphorus) 2.5 2.5-4.5 [facility] [id number] 09:09:00 Test Item Value Reference Range Interpretation Comments Magnesium Lvl (test code = Magnesium 1.7 1.8-2.4 Lvl) [facility]BphuooiJJHRNSGIAY4794-48-79 09:09:00 Test Item Value Reference Range Interpretation Comments Segs (test code = Segs) 64.9 45.0-75.0 [facility] [id number] 09:09:00 Test Item Value Reference Range Interpretation Comments Lymphocytes (test code = Lymphocytes) 24.3 20.0-40.0 [facility] Cent[id number] 09:09:00 Test Item Value Reference Range Interpretation Comments Monocytes (test code = Monocytes) 8.2 2.0-12.0 [place] 35789-07-19 09:09:00 Test Item Value Reference Range Interpretation Comments Eosinophils (test code = 2.4 See_Comment [A utomated message] The Eosinophils) system which ge nerated this result tra nsmitted reference range : <=4.0. The reference r tristin was not used to int erpret this result as normal/abnormal . [facility] CenterNrlrcaaTFSCEHRJOD2502-83-61 09:09:00 Test Item Value Reference Range Interpretation Comments Basophils (test code = 0.2 See_Comment [Aut omated message] The Basophils) system which ge nerated this result tra nsmitted reference range : <=1.0. The reference r tristin was not used to int erpret this result as normal/abnormal . [facility] CenterPsqervcLANUUZVDDL2997-34-44 09:09:00 Test Item Value Reference Range Interpretation Comments Neutrophils # (test code = Neutrophils 7.7 1.5-8.1 #) [facility] Cent[id number] 09:09:00 Test Item Value Reference Range Interpretation Comments Lymphocytes # (test code = Lymphocytes 2.9 1.0-5.5 #) [facility] CenterEelctfaPKEKGBMYBV0805-02-85 09:09:00 Test Item Value Reference Range Interpretation Comments Monocytes # (test code 1.0 See_Comment [Aut omated message] The = Monocytes #) system which generated this result tra nsmitted reference range : <=0.8. The reference r tristin was not used to int erpret this result as normal/abnormal . [facility] CenterPqntozuPWJUPKOZLM6688-31-13 09:09:00 Test Item Value Reference Range Interpretation Comments Eosinophils # (test code 0.3 See_Comment [A utomated message] The = Eosinophils #) system whic h generated this result tra nsmitted reference range : <=0.5. The reference r tristin was not used to int erpret this result as normal/abnormal . [facility] CenterZnfnpecNQURFCPOPC2847-31-97 09:09:00 Test Item Value Reference Range Interpretation Comments WBC (test code = WBC) 11.9 3.7-10.4 [place] [id number] 09:09:00 Test Item Value Reference Range Interpretation Comments RBC (test code = RBC) 3.85 4.20-5.40 [place] 120493-07-19 09:09:00 Test Item Value Reference Range Interpretation Comments Hgb (test code = Hgb) 11.9 12.0-16.0 [place] 35789-07-19 09:09:00 Test Item Value Reference Range Interpretation Comments Hct (test code = Hct) 34.3 36.0-48.0 [place] 35789-07-19 09:09:00 Test Item Value Reference Range Interpretation Comments MCV (test code = MCV) 89.1 80.0-98.0 [place] [id number] 09:09:00 Test Item Value Reference Range Interpretation Comments MCH (test code = MCH) 31.0 pg 27.0-31.0 [id number] 09:09:00 Test Item Value Reference Range Interpretation Comments MCHC (test code = MCHC) 34.8 32.0-36.0 [facility] SeexzvzSFOJFAFJSL7521-29-53 09:09:00 Test Item Value Reference Range Interpretation Comments RDW (test code = RDW) 13.9 11.5-14.5 [facility] MujqjvdPBVCEKEFBV2030-41-18 09:09:00 Test Item Value Reference Range Interpretation Comments Platelet (test code = Platelet) 204 133-450 [facility]oYjrzlndOKRJQXZHLM4645-11-84 09:09:00 Test Item Value Reference Range Interpretation Comments MPV (test code = MPV) 8.4 7.4-10.4 [facility] HermannAMPICILLIN+SULBACTAM:SUSC:PT:ISOLATE:ORDQN:[id number] 17:07:00 Test Item Value Reference Range Interpretation Comments Gram Stain Report Testing Performed At: (test code = Gram [facility] [place] St[facility]) [facility] HermannAMPICILLIN+SULBACTAM:SUSC:PT:ISOLATE:ORDQN:[id number] 17:07:00 Test Item Value Reference Range Interpretation Comments Culture: Many Methicillin Resistant Wound/Abscess Staphylococcus aureus , w/Gram Stain (test Upon Supplemental Testing, code = Culture: This Isolate Was Found To Wound/Abscess Be Resistant To Clindamycin w/Gram Stain) By An Inducible Mechanism. [facility] HermannAMPICILLIN+SULBACTAM:SUSC:PT:ISOLATE:ORDQN:[id number] 17:07:00 Test Item Value Reference Range Interpretation Comments Methicillin Resistant Methicillin Resistant Staphylococcus aureus Staphylococcus aureus (test code = Methicillin Resistant Staphylococcus aureus) [facility] Ehbzkbrps3509-03-68 17:07:00 Test Item Value Reference Range Interpretation Comments Culture: Anaerobic No Anaerobes Isolated (test code = Culture: After 2 Days Anaerobic) [facility]annGram Ukmoy4964-02-91 17:07:00 Test Item Value Reference Range Interpretation Comments Gram Stain (test code Many Wbc'S; Many Gram = Gram Stain) Positive Cocci [facility]oVibwztvSKMKFJKDR8836-25-58 10:05:00 Test Item Value Reference Range Interpretation Comments Vancomycin AUC (test code = Vancomycin 15.4 AUC) [facility] DentonCswjrrmCQUCBHOYJ8773-14-91 06:16:00 Test Item Value Reference Range Interpretation Comments LDL Direct (test code = LDL Direct) 67 [facility] VqhfkkuMNKUAK4361-96-64 04:07:49 Test Item Value Reference Range Interpretation Comments RADRPT (test code = EXAMINATION: MRI brain RADRPT) without contrastDATE: 10/07/2022INDICATION: Syncope.FINDINGS:Noncontra st MRI images the brain are compared to CT study dated 10/06/2022iffusion-weighte d images demonstrate a few scattered punctate areas of restriction in the left superior parietal lobule and in the far lateral margin of the right precentral gyrus.There is vasogenic edema in the juxtacortical regions of both occipital lobes and in the parietal convexities bilaterally as well as in a few areas surrounding left paramedian sulcus of the frontal lobes. Minimal changes may be present in the right cerebellar white matter.Susceptibility weighted images demonstrate a small focus of parenchymal hemorrhage in the left occipital lobe associated with edema.There are T2 signal changes in the left centrum semiovale of the frontal lobe extending into the left basal ganglia most consistent with chronic small vessel ischemia, and there are similar changes in the central michael.IMPRESSION:There is vasogenic edema in the occipital lobes, parietal convexities, and to a lesser extent over the frontal convexities characteristic of posterior reversible edema syndrome. This is also evident on the comparison CT. There is some minimal hemorrhage associated with changes in the left occipital lobe.There are punctate diffusion abnormalities in the left parietal convexity corresponding to some T2 signal changes described above, but there is also punctate change in the right lateral parietal lobe that does not correspond to any vasogenic edema. Coexistent embolic ischemic changes should be considered. [facility] DentonCnsoexzSXXRREWHX9339-39-16 11:34:00 Test Item Value Reference Range Interpretation Comments HS Troponin I (test code = HS Troponin 27 I) [facility] DentonVrzqgnyFLQUXOZWZ4694-98-76 11:34:00 Test Item Value Reference Range Interpretation Comments Hgb A1C (test code = Hgb A1C) 8.6 [facility] DentonMgsbwdqQROQPFEJA7610-04-93 11:34:00 Test Item Value Reference Range Interpretation Comments LDL (Calculated) (test code = LDL 8 (Calculated)) [facility] DentonMjrpjkbOQIHMKFKZ2664-31-21 11:34:00 Test Item Value Reference Range Interpretation Comments Trig (test code = Trig) 321 [facility] DallasWowehciRCDLFMLLK2681-77-43 11:34:00 Test Item Value Reference Range Interpretation Comments Chol (test code = Chol) [facility]CxiuedzDMYGEEZWH4702-75-74 11:34:00 Test Item Value Reference Range Interpretation Comments HDL (test code = HDL) 28 [facility] HospitalWxlyujuQKZIGMNXU6826-82-28 11:34:00 Test Item Value Reference Range Interpretation Comments Chol/HDL Ratio (test code = Chol/HDL 3.57 1 3.90-5.80 Ratio) [facility] DallasRbqrhinXDOQBGLRM3125-38-85 11:34:00 Test Item Value Reference Range Interpretation Comments VLDL (test code = VLDL) 64 1 [facility] DentonEoxxnlnTLREBWMAX9600-38-75 11:34:00 Test Item Value Reference Range Interpretation Comments TSH (test code = TSH) 0.549 0.360-3.740 [facility] DallasXdyyzwyCXRXIS3141-02-93 19:09:55 Test Item Value Reference Range Interpretation Comments RADRPT (test code EXAM: CTA BRAINEXAM: CTA = RADRPT) NECKEXAM: CTV BRAINDATE: 10/06/2022INDICATION: - R occipital hypodensity, AMS.COMPARISON: None.TECHNIQUE: Rapid acquisition spiral CT images of the brain and neck were obtained between the aortic arch and the cranial vertex during intravenous infusion of iodinated contrast for the purposes of CT angiography. 3-D CT angiographic images are created using MIP technique at the acquisition workstation. The source images are also presented for interpretation. [facility] was used in the care of this patient.IV contrast: Refer to MAR/cytology technologist documentationDLP: Refer to CT protocol formFINDINGS:NECK CTA:Aortic arch: The great vessels originate from the aortic arch in the standard configuration. No origin stenosis is identified.Common carotid arteries: Normal.Internal carotid arteries:* Right: Intimal thickening and calcifications are seen at the carotid bulb extending into the proximal cervical ICA causing approximately 60% diameter stenosis by NASCET criteria. * Left: There is mild atherosclerosis with areas of calcification at the carotid bifurcation, and stenosis of less than 50% by NASCET criteria.Vertebral arteries: The left vertebral artery is dominant. No opacification defects are seen within bilateral cervical vertebral arteries. Hypoplastic right V4 segment is seen as anatomic variant. Small calcification is seen within the left V4 segment, causing less than 50% stenosis.Other: The soft tissues of the neck and other incidental structures are normal.BRAIN CTA:Arteries: Hypoplastic left MAHI A1 segment is observed as anatomic variant. Bilateral posterior communicating arteries are absent as anatomic variants. Short narrowing of the left STEEL FLOOR PAN PLACING SUPERVISOR anterior P2 segment is identified resulting in moderate stenosis. Short segment narrowing at the junction of the left STEEL FLOOR PAN PLACING SUPERVISOR P2-P3 segments is identified resulting in mild stenosis. Small ossifications are seen within bilateral cavernous and clinoid ICAs resulting in moderate stenosis. Remaining of the intracranial arteries demonstrate preserved opacification with standard branching pattern.Veins: The deep cerebral veins and major venous sinuses are normal.Brain parenchyma: Detailed description of brain parenchymal findings is provided in a separate head CT report without contrast.IMPRESSION: 1. No evidence of large vessel occlusion, aneurysms or arteriovenous malformations.2. Calcified atheromatosis within the right common carotid artery and proximal cervical ICA resulting in approximately 60% stenosis by NASCET criteria.3. Short segment narrowing resulting in moderate stenosis within the left STEEL FLOOR PAN PLACING SUPERVISOR anterior P2 segment and junction of the left STEEL FLOOR PAN PLACING SUPERVISOR P2- P3 segments.4. 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 Calcified atheromatosis within bilateral carotid siphons and left V4 segment resulting in mild to moderate stenosis.(All qualitative and quantitative assessments of carotid bifurcation and proximal internal carotid artery stenosis are made referencing the distal internal carotid artery {NASCET criteria}.) [facility] DentonPsjgmarHMSWJFGBU8320-11-57 18:47:00 Test Item Value Reference Range Interpretation Comments U Amph Scr (test code Negative *NA*(10/06/22 = U Amph Scr) 1:47 PM) [facility] Den[id number] 18:47:00 Test Item Value Reference Range Interpretation Comments U Indira Scr (test code Negative *NA*(10/06/22 = U Indira Scr) 1:47 PM) [facility] DentonYofaqufSODXBASYY5617-85-09 18:47:00 Test Item Value Reference Range Interpretation Comments U Benzodiaz Scr (test Negative *NA*(10/06/22 code = U Benzodiaz Scr) 1:47 PM) [facility] DentonQcucthhKRKGUDDYB5577-74-75 18:47:00 Test Item Value Reference Range Interpretation Comments U Cocaine Scr (test Negative *NA*(10/06/22 code = U Cocaine Scr) 1:47 PM) [facility] UjvlsgwCVCDTAWNH6963-40-39 18:47:00 Test Item Value Reference Range Interpretation Comments U Cannab Scr (test Negative *NA*(10/06/22 code = U Cannab Scr) 1:47 PM) [facility] [id number] 18:47:00 Test Item Value Reference Range Interpretation Comments U Opiate Scr (test Negative *NA*(10/06/22 code = U Opiate Scr) 1:47 PM) [facility] DogmtwfHJELGLFQS2728-66-31 18:47:00 Test Item Value Reference Range Interpretation Comments U Phencyclidine Scr (test Negative code = U Phencyclidine *NA*(10/06/22 1:47 Scr) PM) [facility] YfdviegGDBXEEAGW5477-11-58 18:47:00 Test Item Value Reference Range Interpretation Comments UDS Note (test code = See Note 3*NA*(10/06/22 UDS Note) 1:47 PM) [facility] AND [id number] 18:47:00 Test Item Value Reference Range Interpretation Comments UA Color (test code = Light Yellow UA Color) *NA*(10/06/22 1:47 PM) [facility] [id number] 18:47:00 Test Item Value Reference Range Interpretation Comments UA Turbidity (test code = Clear (10/06/22 1:47 UA Turbidity) PM) [facility]ann[facility] AND [id number] 18:47:00 Test Item Value Reference Range Interpretation Comments UA Spec Grav (test code = UA Spec 1.044 1 Grav) [facility]ann[facility] AND [id number] 18:47:00 Test Item Value Reference Range Interpretation Comments UA pH (test code = UA pH) 6.0 1 5.0-8.0 [facility] [id number] 18:47:00 Test Item Value Reference Range Interpretation Comments UA Protein (test code = UA Protein) 30 mg/dL [facility] AND [id number] 18:47:00 Test Item Value Reference Range Interpretation Comments UA Glucose (test code = UA Glucose) 500 mg/dL [facility] AND [id number] 18:47:00 Test Item Value Reference Range Interpretation Comments UA Ketones (test code = UA Ketones) 20 mg/dL [facility] [id number] 18:47:00 Test Item Value Reference Range Interpretation Comments UA Bili (test code = Negative *NA*(10/06/22 UA Bili) 1:47 PM) [facility] [id number] 18:47:00 Test Item Value Reference Range Interpretation Comments UA Blood (test code = Small *ABN*(10/06/22 UA Blood) 1:47 PM) [facility] [id number] 18:47:00 Test Item Value Reference Range Interpretation Comments UA Urobilinogen (test code = UA no gt 0.1-1.0 Urobilinogen) [facility] [id number] 18:47:00 Test Item Value Reference Range Interpretation Comments UA Nitrite (test code Negative (10/06/22 1:47 = UA Nitrite) PM) [facility] AND [id number] 18:47:00 Test Item Value Reference Range Interpretation Comments UA Leuk Est (test Negative (10/06/22 1:47 code = UA Leuk Est) PM) [facility] AND [id number] 18:47:00 Test Item Value Reference Range Interpretation Comments UA Ascorbic Acid (test Negative 8*NA*(10/06/22 code = UA Ascorbic 1:47 PM) Acid) [facility] [id number] 18:47:00 Test Item Value Reference Range Interpretation Comments UA Sq Epi (test code = UA Sq Epi) Few /LPF [facility]ann[facility] AND [id number] 18:47:00 Test Item Value Reference Range Interpretation Comments UA WBC (test code = 1 See_Comment [Automa radha message] The UA WBC) system which ge nerated this result transmit radha reference range : <=5. The reference range was not used to interpr et this result as sandro l/abnormal. [facility] [id number] 18:47:00 Test Item Value Reference Range Interpretation Comments UA RBC (test code = 2 See_Comment [Automa radha message] The UA RBC) system which ge nerated this result transmit radha reference range : <=2. The reference range was not used to interpr et this result as sandro l/abnormal. [facility] [id number] 18:47:00 Test Item Value Reference Range Interpretation Comments UA Mucus (test code = UA Mucus) Few /LPF [facility]oAkrhuowPGLHMH5275-30-04 18:32:16 Test Item Value Reference Range Interpretation Comments RADRPT (test code EXAM: CT CHEST WITH = RADRPT) CONTRASTEXAM: CT ABDOMEN AND PELVIS WITH CONTRASTDATE: 10/06/2022 13:00 INDICATION: - fall COMPARISON: Not available.TECHNIQUE: Volumetric CT of the chest, abdomen and pelvis is acquired following intravenous administration of contrast. Axial, coronal and sagittal images are provided.IV contrast: Refer to MAR/technologist documentationOral contrast: None.DLP: Refer to CT protocol formUT SECTION: ERFINDINGS: Kiln Repairer: Noncontributory.Lines and tubes: None.Lower Neck: Supraclavicular soft tissues are within normal limits.Thoracic Aorta and Mediastinum: No mediastinal hematoma or thoracic aortic injury. Normal heart and pericardium. Lungs, Pleura, Diaphragm: No pulmonary contusions. The lungs are clear. No pleural effusion or pneumothorax. No diaphragmatic injury.Liver and biliary tree: No injury.Gallbladder: UnremarkablePancreas: No injury.Spleen: No injury.Adrenals: No injury.Kidneys and ureters: No injury.Bladder: No injury.Reproductive organs: No injury.Gastrointestinal tract: No injury.Peritoneum and retroperitoneum: No fluid collections or free air.Lymph nodes: Normal.Vasculature: No vascular injury.Spine/ Bones: No acute abnormality of the spine. No other bony injury. Diffuse decreased bone density. Midline sternotomy wires.Soft tissues: Subcutaneous contusion involving the left anterior lower abdominal wall. Subcutaneous 1 x 0.8 cm hematoma involving the left gluteal region subcutaneous soft tissue.IMPRESSION: 1. Subcutaneous contusion over the left anterior lower abdominal wall and subcentimeter hematoma over the left gluteal region subcutaneous soft tissues.2. No solid organ injury in the chest abdomen and pelvis.3. No fracture. [facility] [id number] 17:00:00 Test Item Value Reference Range Interpretation Comments HS Troponin I 1 Hr (test code = HS 60 Troponin I 1 Hr) [facility] DentonMcqmxzyUWQYCODQH4946-24-03 17:00:00 Test Item Value Reference Range Interpretation Comments HS Troponin I 0 to 1 See Note 10, Hour Delta (test code = 11(10/06/22 12:00 PM) HS Troponin I 0 to 1 Hour Delta) [facility] DallasTuqxbpmQOHAKA0394-44-82 15:34:01 Test Item Value Reference Range Interpretation Comments RADRPT (test code EXAM: CT BRAIN WITHOUT = RADRPT) CONTRASTDATE: 10/06/2022INDICATION: - traumatic SAH.COMPARISON: CT dated October 06, 2022 at 03:30 hoursTECHNIQUE: Axial CT images of the brain were obtained. Sagittal and coronal reformats.IV contrast: NoneDLP: Refer to CT protocol formFINDINGS: Decreased attenuation of the bi-occipital white matter. There is small area increased attenuation along the cortex of the right occipital lobe (see sagittal series series 901, image 14 and coronal series 900, image 37) .No other areas concerning for hemorrhage are identified.Global parenchymal volume loss with prominence of the extra-axial spaces.The skull base, calvarium, and included facial bones are unremarkable. Left mastoid effusionPartially imaged soft tissue lesion overlying the right parietal scalp (series 100, image 32).IMPRESSION:1. There is small area of increased density along the cortex of the right occipital lobe which may represent subarachnoid hemorrhage. 2. Areas of hypoattenuation the right greater than left occipital lobes are nonspecific with differential including contusion, ischemic events, edema, PRES, or hypoglycemia. 3. Partially imaged subcutaneous cutaneous lesion overlying the right parietal scalp. Correlate for traumatic injury. [facility] DallasOonrjpfFRQOFH0162-42-06 14:50:41 Test Item Value Reference Range Interpretation Comments RADRPT (test code EXAM: CT CERVICAL SPINE = RADRPT) WITHOUT CONTRASTDATE: 10/06/2022 9:34INDICATION: - S/P fallCOMPARISON: Not available.TECHNIQUE: Volumetric CT of the cervical spine is acquired without contrast. Axial, coronal and sagittal images are provided. IV contrast: None.DLP: Refer to CT protocol formUT SECTION: ERFINDINGS: The spine is imaged from the skull base to the level of T2.Kiln Repairer: Noncontributory.Bones: No acute fracture or malalignment is identified. Degenerative grade 1 anterolisthesis of C4 over C5 and C5 over C6 vertebrae. Multilevel degenerative changes of the cervical spine more pronounced at C4-C5 and C5-C6 facet and intervertebral joints.Soft tissues: No soft tissue abnormality is identified.IMPRESSION: No acute abnormality. [place] [id number] 14:18:48 Test Item Value Reference Range Interpretation Comments RADRPT (test code = EXAM: XR CHEST 1 RADRPT) VIEWDATE: 10/06/2022 8:55 INDICATION: - fallCOMPARISON: None.TECHNIQUE: AP chest. Number of images: 1.FINDINGS:Lines, tubes and hardware: None.Lungs and pleura: The lungs are clear. The costophrenic sulci are sharp without effusion.Heart and mediastinum: The heart size is normal. The mediastinal contours are normal. Bones and soft tissues: No acute abnormality. Midline sternotomy wires noted.IMPRESSION: 1. No acute abnormality. [id number] 13:59:07 Test Item Value Reference Range Interpretation Comments HS Troponin I Baseline (test code = HS 73 Troponin I Baseline) [facility] 3TIER [id number] 13:41:00 Test Item Value Reference Range Interpretation Comments ABO/Rh (test code = ABO/Rh) O POS [facility] 3TIER [id number] 13:41:00 Test Item Value Reference Range Interpretation Comments Antibody Scrn (test Negative (10/06/22 8:41 code = Antibody Scrn) AM) [facility]ar[id number] 13:41:00 Test Item Value Reference Range Interpretation Comments Total Protein (test code = Total 6.8 6.4-8.4 Protein) [facility]aredoSxtbpotYSYVCLJEY2274-05-05 13:41:00 Test Item Value Reference Range Interpretation Comments Albumin Lvl (test code = Albumin Lvl) 2.9 3.5-5.0 [facility]aredoSoxirwqBXLFHEFDS3030-18-95 13:41:00 Test Item Value Reference Range Interpretation Comments ALANINE AMINOTRANSFERASE 23 See_Comment [A utomated message] (test code = ALANINE The sys tem which AMINOTRANSFERASE) generated this result transmitted ref erence range: <=65. Th e reference range was not used to int erpret this result as normal/abnormal . [id number] 13:41:00 Test Item Value Reference Range Interpretation Comments AST (test code = AST) 22 See_Comment [Auto mated message] The system which ge nerated this result transmit radha reference range : <=37. The reference range was not used to interpr et this result as sandro l/abnormal. [facility] DentonUpuugrrFOIUDJJXO9170-52-17 13:41:00 Test Item Value Reference Range Interpretation Comments Alk Phos (test code = Alk Phos) 135 39-136 [facility] DentonHyhkuquZTNPULKYC6064-73-44 13:41:00 Test Item Value Reference Range Interpretation Comments Bili Total (test code = Bili Total) 0.7 0.2-1.3 [facility] DentonQrqrdawPVZDUJDXW0221-92-13 13:41:00 Test Item Value Reference Range Interpretation Comments Bili Direct (test code 0.1 See_Comment [Aut omated message] The = Bili Direct) system which generated this result tra nsmitted reference range : <=0.3. The reference r tristin was not used to int erpret this result as sandro l/abnormal. [facility] DentonAyrokadIGCPPKNXH9925-66-13 13:41:00 Test Item Value Reference Range Interpretation Comments Bili Indirect (test 0.6 See_Comment [Automa radha message] The code = Bili Indirect) system which generated this result tra nsmitted reference range : <=1.0. The reference r tristin was not used to int erpret this result as normal/abnormal . [facility] DentonYbgrdjwGIVZIJWVE5424-76-22 13:41:00 Test Item Value Reference Range Interpretation Comments Globulin (test code = Globulin) 3.9 2.7-4.2 [facility] DentonKbogsboYARNFQHZU0243-01-00 13:41:00 Test Item Value Reference Range Interpretation Comments A/G Ratio (test code = A/G Ratio) 0.7 1 0.7-1.6 [facility] DentonLwrqlelSALQKCUDW3085-09-69 13:41:00 Test Item Value Reference Range Interpretation Comments pH Valeriy (test code = pH Valeriy) 7.28 1 7.28-7.42 [facility] DentonHlbjcrxTEIAWDFPJ9444-59-96 13:41:00 Test Item Value Reference Range Interpretation Comments pCO2 Valeriy (test code = pCO2 Valeriy) 39 38-52 [facility] DentonIrhetttOUEPFBHEY2717-67-10 13:41:00 Test Item Value Reference Range Interpretation Comments pO2 Valeriy (test code = pO2 Valeriy) 40 20-49 [facility] DentonYuidofbZXGLVIQTL2996-66-36 13:41:00 Test Item Value Reference Range Interpretation Comments HCO3 Valeriy (test code = HCO3 Valeriy) 18 22-26 [facility] DentonMotdbvsYENSZOEYG7878-32-77 13:41:00 Test Item Value Reference Range Interpretation Comments BE Valeriy (test code = BE Valeriy) -8 -2-2 [facility] DentonQhnwdfvKLTSZSQJL8972-80-21 13:41:00 Test Item Value Reference Range Interpretation Comments O2 Sat Valeriy (calc) (test code = O2 Sat 67.0 40.0-70.0 Valeriy (calc)) [facility] DentonPlrpgfjTRVUEAIEP3092-00-76 13:41:00 Test Item Value Reference Range Interpretation Comments Temp Valeriy (test code = Temp Valeriy) 37.0 [facility] DentonVdshqmhJCDSEJLUL2415-41-30 13:41:00 Test Item Value Reference Range Interpretation Comments Lactic Acid Lvl (test code = Lactic 1.6 0.5-2.2 Acid Lvl) [facility] DentonShnnasyYSYNDNGHI6064-62-69 13:41:00 Test Item Value Reference Range Interpretation Comments Ethanol Lvl (test code = Ethanol Lvl) no gt [facility] DentonWvdpclpWDVSCLJBL8866-70-13 13:41:00 Test Item Value Reference Range Interpretation Comments Etoh (%) (test code = Etoh (%)) [facility] gt [facility]RchallhFNIQKQHWQM9947-88-71 13:41:00 Test Item Value Reference Range Interpretation Comments ACT (TEG) Rapid (test code = ACT (TEG) 89 s 86-118 Rapid) [facility] CenterDhjjfthZPAIMVZHZE8777-34-48 13:41:00 Test Item Value Reference Range Interpretation Comments Split Point Rapid (test code = Split 0.3 min Point Rapid) [facility] CenterMqoeqinOMCVRMTTUY0579-86-12 13:41:00 Test Item Value Reference Range Interpretation Comments R-time Rapid (test code = R-time 0.4 min 0.4-0.7 Rapid) [facility] CenterHqvfdhdFYDHQWMIUW6938-43-47 13:41:00 Test Item Value Reference Range Interpretation Comments K-time Rapid (test code = K-time 0.8 min 0.6-2.3 Rapid) [facility] CenterFadpdniXBPSKQPPXL8124-62-62 13:41:00 Test Item Value Reference Range Interpretation Comments Angle Rapid (test code = Angle 79 degrees 64-80 Rapid) [facility] CenterLviruonLWXSZXJQHB4137-35-73 13:41:00 Test Item Value Reference Range Interpretation Comments Max Amplitude Rapid (test code = Max 70 mm 52-71 Amplitude Rapid) [place] [id number] 13:41:00 Test Item Value Reference Range Interpretation Comments G-value Rapid (test code = G-value 11.8 5.0-11.6 Rapid) [id number] 13:41:00 Test Item Value Reference Range Interpretation Comments Estimated % Lysis Rapid 0.0 See_Comment [Au tomated message] The (test code = Estimated syste m which generated % Lysis Rapid) this result t ransmitted reference range : <=7.5. The reference r tristin was not used to int erpret this result as normal/abnormal . [facility] [id number] 17:15:00 Test Item Value Reference Range Interpretation Comments GLUCOSE BEDSIDE (test 139 MG/DL 70-110 H Perfor med by certified code = GLUBED) 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 [facility] GLUCOSE [id number] 12:40:00 Test Item Value Reference Range Interpretation Comments GLUCOSE BEDSIDE (test 185 MG/DL 70-110 H Perfor med by certified code = GLUBED) 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 [facility] GLUCOSE [id number] 10:55:00 Test Item Value Reference Range Interpretation Comments GLUCOSE BEDSIDE (test 277 MG/DL 70-110 H Perfor med by certified code = GLUBED) 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 [facility] BASIC METABOLIC [id number] 08:41:00 Test Item Value Reference Range Interpretation [...] the recommended for lela for GFRby the [facility] for Adults.The GFR will not calculate if th e sex is unknown or if thepatient's ag e is <18 years. CREATININE (test 1.2 mg/dL 0.6-1.3 N code = CREAT) CALCIUM (test code = 9.4 mg/dL 8.0-10.5 N CA) CBC W/AUTO [id number] 08:26:00 Test Item Value Reference Range Interpretation [...] REQUIRED (test code NO = MDIFF) GLUCOSE [id number] 21:06:00 Test Item Value Reference Range Interpretation Comments GLUCOSE BEDSIDE (test 219 MG/DL 70-110 H Perfor med by certified code = GLUBED) 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 [facility] GLUCOSE [id number] 16:32:00 Test Item Value Reference Range Interpretation Comments GLUCOSE BEDSIDE (test 159 MG/DL 70-110 H Perfor med by certified code = GLUBED) 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 [facility] GLUCOSE [id number] 11:53:00 Test Item Value Reference Range Interpretation Comments GLUCOSE BEDSIDE (test 291 MG/DL 70-110 H Perfor med by certified code = GLUBED) 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 [facility] GLUCOSE [id number] 08:29:00 Test Item Value Reference Range Interpretation Comments GLUCOSE BEDSIDE (test 200 MG/DL 70-110 H Perfor med by certified code = GLUBED) 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 [facility] BASIC METABOLIC [id number] 08:00:00 Test Item Value Reference Range Interpretation [...] the recommended for lela for GFRby the [facility] for Adults.The GFR will not calculate if th e sex is unknown or if thepatient's ag e is <18 years. CREATININE (test 1.2 mg/dL 0.6-1.3 N code = CREAT) CALCIUM (test code = 9.4 mg/dL 8.0-10.5 N CA) CBC W/AUTO [id number] 07:53:00 Test Item Value Reference Range Interpretation [...] (test code NO = MDIFF) C REACTIVE [id number] 07:50:00 Test Item Value Reference Range Interpretation Comments C REACTIVE PROTEIN (test code = 18.0 mg/L <10.0 H CRP) GLUCOSE [id number] 22:00:00 Test Item Value Reference Range Interpretation Comments GLUCOSE BEDSIDE (test 143 MG/DL 70-110 H Perfor med by certified code = GLUBED) 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 [facility] GLUCOSE [id number] 16:27:00 Test Item Value Reference Range Interpretation Comments GLUCOSE BEDSIDE (test 95 MG/DL 70-110 N Perfor med by certified code = GLUBED) 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 [facility] B-TYPE NATRIURETIC [id number] 12:05:00 Test Item Value Reference Range Interpretation Comments B-TYPE NATRIURETIC PEPTIDE (test 239.0 PG/ML 0-100 H code = BNP) GLUCOSE [id number] 11:07:00 Test Item Value Reference Range Interpretation Comments GLUCOSE BEDSIDE (test 188 MG/DL 70-110 H Perfor med by certified code = GLUBED) 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 [facility] CBC W/AUTO [id number] 08:26:00 Test Item Value Reference Range Interpretation [...] REQUIRED (test code NO = MDIFF) GLUCOSE [id number] 07:59:00 Test Item Value Reference Range Interpretation Comments GLUCOSE BEDSIDE (test 132 MG/DL 70-110 H [facility] med by certified code = GLUBED) 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 [facility] BASIC METABOLIC [id number] 07:33:00 Test Item Value Reference Range Interpretation [...] = 9.5 mg/dL 8.0-10.5 N CA) GLUCOSE [id number] 20:53:00 Test Item Value Reference Range Interpretation Comments GLUCOSE BEDSIDE (test 156 MG/DL 70-110 H Perfor med by certified code = GLUBED) 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 [facility] VANCOMYCIN [id number] 17:43:00 Test Item Value Reference Range Interpretation Comments VANCOMYCIN TROUGH 10.7 mcg/mL 10.0-20.0 N 10-15 mcg/ mL - (test code = VANCT) Cellulit is, Urinary Tract Infection . 15-20 mcg/mL - Bacteremia, Infective Endocarditis, Meningitis, Osteomyelitis, Pneumonia, Georgie re Skin/Soft-Tissu e Infection, Spin al Abscess. 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 [facility] GLUCOSE [id number] 07:49:00 Test Item Value Reference Range Interpretation Comments GLUCOSE BEDSIDE (test 156 MG/DL 70-110 H Perfor med by certified code = GLUBED) 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 [facility] CBC W/AUTO [id number] 07:25:00 Test Item Value Reference Range Interpretation [...] REQUIRED (test code NO = MDIFF) GLUCOSE [id number] 21:04:00 Test Item Value Reference Range Interpretation Comments GLUCOSE BEDSIDE (test 166 MG/DL 70-110 H Perfor med by certified code = GLUBED) 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 [facility] GLUCOSE [id number] 16:45:00 Test Item Value Reference Range Interpretation Comments GLUCOSE BEDSIDE (test 263 MG/DL 70-110 H Perfor med by certified code = GLUBED) 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 [facility] GLUCOSE [id number] 12:21:00 Test Item Value Reference Range Interpretation Comments GLUCOSE BEDSIDE (test 236 MG/DL 70-110 H Perfor med by certified code = GLUBED) 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 [facility] CBC W/AUTO [id number] 08:19:00 Test Item Value Reference Range Interpretation [...] REQUIRED (test code NO = MDIFF) GLUCOSE [id number] 07:59:00 Test Item Value Reference Range Interpretation Comments GLUCOSE BEDSIDE (test 180 MG/DL 70-110 H [facility] med by certified code = GLUBED) 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9 N [id number] 07:41:00 Test Item Value Reference Range Interpretation Comments MAGNESIUM (test code = MAG) 1.63 mg/dL 1.80-2.40 L LACTIC ACID [id number] 05:13:00 Test Item Value Reference Range Interpretation Comments LACTIC ACID REPEAT (test code = 1.1 mmol/l 0.4-1.9 N LACTR) GLUCOSE [id number] 21:38:00 Test Item Value Reference Range Interpretation Comments GLUCOSE BEDSIDE (test 247 MG/DL 70-110 H Perfor med by certified code = GLUBED) 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 LACTIC [id number] 17:46:00 Test Item Value Reference Range Interpretation Comments LACTIC ACID (test code = LACT) 2.4 mmol/L 0.4-1.9 H CBC W/AUTO [id number] 17:42:00 Test Item Value Reference Range Interpretation [...] code NO = MDIFF) - CT CHEST W/[id number] 00:00:00 [facility] 1955 Sex: F Name:KALA TURPIN [facility] : 1955 Age/S: 67 / F [address] [place] [address] Blvd Unit #: [id number] Loc: [place] [address] Phys: LindsayHolden [facility] Acct: [id number] Dis Date: Status: REG ER PHONE #: [phone] Exam Date: 07/12/20221846 FAX #: [phone] Reason: concern for abscess/ post-CABG EXAMS: CPT CODE: [id number] CT CHEST W/CONTRAST 27791 PROCEDURE INFORMATION: Exam: CT Chest With Contrast; [...] consolidation. No masses. Pleural spaces: No pneumothorax. Smallleft pleural effusion.. Heart: Post midline sternotomy. No cardiomegaly. No pericardial effusion. Lymph nodes: Unremarkable. No enlarged lymph nodes. Vasculature: Unremarkable. No aortic aneurysm. Liver: No acute abnormality. Bones/joints: Unremarkable. No acute fracture. Soft tissues: Open midline ari rnotomy wound at the skin surface. No organized [...] 1 Signed Report (CONTINUED) Name: KALA TURPIN [facility] : 1955 Age/S: 67 / F [address] [place] [address] Unit #: [id number] Loc: [place] [address] Phys: Holden Montoya Acct: [id number] Dis Date: Status: REG ER PHONE #: [phone] Exam Date: 07/12/2022 1847 FAX #: [phone] Reason: concern for abscess/ post-CABG EXAMS: CPT CODE: [id number] CT CHEST W/CONTRAST 02382 (Continued) CC: Natasha Morrissey MD; Holden Montoya Technologist:Dolly Aguilar, RT(R)(CT) CTDI: DLP: Trnscb Date/Time: 07/12/2022 (2007) Shahida Orig Print D/T: S: 07/12/2022 (2008) PAGE 2 Signed Report- XR CHEST 1 [id number] 00:00:00 [facility] 1955 Sex: F FAX: Holden Cuello [phone] [place]: St: REG Name: KALA TURPIN [facility] : 1955 Age/S: 67/F [address] [place] [address] Unit #: [id number] Loc: [place] [address] Phys: Holden Montoya Acct: [id number] Dis Date: Status: REG ER PHONE #: [phone] Exam Date: 07/12/20221709 FAX #: [phone] Reason: medical clearnce EXAMS: CPT CODE: [id number] XR CHEST 1 V 73232 PROCEDURE INFORMATION: Exam: XR Chest Exam date and time: 07/12/2022 5:05 PM Age: 67 years old Clinical indication: Screening exam; Other screening; Additional info: Medical clearnce TECHNIQUE: Imaging protocol: Radiologic exam of the chest. Views: 1 view. COMPARISON: CR XR CHEST 1V 06/25/2022 7:52 AM FINDINGS: Lungs: There is opacity at the left lung base. Pleural spaces: Small left pleural effusion. No pneumothorax. Heart/Mediastinum: Heart size is within normal limits. Previous midline sternotomy. Bones/joints: Unremarkable. IMPRESSION: Opacity at the left lung base with a small left pleural effusion. at 1751 Reported and signed by: Micky Mendez M.D. 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 CREATININE (test 1.0 mg/dL 0.6-1.3 N code = CREAT) CALCIUM (test code = 9.0 mg/dL 8.0-10.5 N CA) [id number] 05:13:00 Test Item Value Reference Range Interpretation Comments MAGNESIUM (test code = MAG) 2.05 mg/dL 1.80-2.40 N CBC W/AUTO [id number] 04:39:00 Test Item Value Reference Range Interpretation [...] NO = MDIFF) - XR CHEST 1 [id number] 00:00:00 [facility] : 1955 Sex: F FAX: Peggy Shaw [phone] [place]: St: [facility] FAX: Bang [place] [phone] ------- Name: KALA TURPIN [facility] : 1955 Age/S: 67/F [address] [place] [address] Unit #: [id number] Loc: [address] [place] [address] Phys: Peggy Rogel MD Acct: [id number] Dis Date: Status: ADM IN PHONE #: [phone] Exam Date: 06/25/20228 FAX #: [phone] Reason: R/O PLEURAL EFFUSION EXAMS: CPT CODE: [id number] XR CHEST 1 V 05078 PROCEDURE INFORMATION: Exam: XR Chest Exam date and time: 06/25/2022 7:52 AM Age: 67 years old Clinical indication: Condition or disease; Lung condition and disease; Pleural effusion; Other: Na; Additional info: R/O pleural effusion TECHNIQUE: Imaging protocol: Radiologic exam ofthe chest. Views: 1 view. COMPARISON: CR XR CHEST 1V 06/23/2022 5:26 AM FINDINGS: Tubes, catheters and devices: None. Lungs: Jvra-hv-xmmuwank bilateral perihilar and basilar interstitial lung opacities,suggesting pulmonary edema versus infiltrates. The peripheral lungs are otherwise clear. The pulmonary opacities are most prominent within the lower left lung. Pleural spaces: Small to moderate volume of pleural fluid is demonstrated within the left side. No other pleural effusion or pneumothorax identified. Heart/Mediastinum: Cardiac silhouette appears woep-do-kmnchlzfbv enlarged. Bones/joints: Sternotomy wires, hardware is demonstrated. Generalized bony degenerative changes. Soft tissues: This study is limited by patient's body habitus. IMPRESSION: 1. Xwke-wk-rdkttdrtia enlarged cardiac silhouette. 2. Small to moderate left pleural effusion. 3. Xivm-we-btacvbyh pulmonary edema versus infiltrates. at 0834 Reported andsigned by: Victor Manuel Mcallister M.D. 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 [facility] GLUCOSE [id number] 16:51:00 Test Item Value Reference Range Interpretation Comments GLUCOSE BEDSIDE (test 156 MG/DL 70-110 H Perfor med by certified code = GLUBED) 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 [facility] GLUCOSE [id number] 11:58:00 Test Item Value Reference Range Interpretation Comments GLUCOSE BEDSIDE (test 178 MG/DL 70-110 H Perfor med by certified code = GLUBED) 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 [facility] GLUCOSE [id number] 08:49:00 Test Item Value Reference Range Interpretation Comments GLUCOSE BEDSIDE (test 151 MG/DL 70-110 H Perfor med by certified code = GLUBED) 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 CREATININE (test 1.0 mg/dL 0.6-1.3 N code = CREAT) CALCIUM (test code = 9.4 mg/dL 8.0-10.5 N CA) [id number] 08:11:00 Test Item Value Reference Range Interpretation Comments MAGNESIUM (test code = MAG) 2.03 mg/dL 1.80-2.40 N - DUP VEIN [id number] 00:00:00 [facility] : 1955 Sex: F Name:KALA TURPIN [facility] : 1955 Age/S: 67 / F [address] [place] [address] Unit #: [id number] Loc: [place] [address] Phys: Peggy Rogel MD Acct: [id number] Dis Date: Status: ADM IN PHONE #: [phone] Exam Date: 06/24/2022 1533 FAX #: [phone] Reason: R/O DVT EXAMS: CPT CODE: [id number] DUP VEIN TRE 42446 PROCEDURE INFORMATION: Exam: US Duplex Lower Extremity Veins, Bilateral Exam date and time: 06/24/2022 3:13 PM Age: 67 years old Clinical indication: Screening exam; Additional info: R/O dvt TECHNIQUE: Imaging protocol: Real-time duplex ultrasound of the bilateral extremitieswith 2-D young scale, color Doppler flow and spectral waveform analysis including responses to compression and other maneuvers (when performed) with image documentation. Complete exam focused on the lower extremity veins. COMPARISON: US DUP VEIN UNI/LTD 06/15/2022 8:52 AM FINDINGS: Right deep veins: Unremarkable. The common femoral, femoral, proximal profunda femoral and popliteal veins are patent witho ut thrombus. Normal Doppler waveforms. Normal compressibility and/or augmentation response. 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 [facility] GLUCOSE [id number] 17:08:00 Test Item Value Reference Range Interpretation Comments GLUCOSE BEDSIDE (test 147 MG/DL 70-110 H Perfor med by certified code = GLUBED) 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 [facility] GLUCOSE [id number] 12:28:00 Test Item Value Reference Range Interpretation Comments GLUCOSE BEDSIDE (test 169 MG/DL 70-110 H Perfor med by certified code = GLUBED) 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 CREATININE (test 0.8 mg/dL 0.6-1.3 N code = CREAT) CALCIUM (test code = 9.2 mg/dL 8.0-10.5 N CA) [id number] 03:28:00 Test Item Value Reference Range Interpretation Comments MAGNESIUM (test code = MAG) 2.10 mg/dL 1.80-2.40 N CBC W/AUTO [id number] 03:09:00 Test Item Value Reference Range Interpretation [...] NO = MDIFF) - XR CHEST 1 [id number] 00:00:00 [facility] : 1955 Sex: F FAX: Ventura Rose MD [place]: St: ADM FAX: Bang [place] [phone] Name: KALA TURPIN [facility] : 1955 Age/S: 67/F [address] [place] [address] Unit #: [id number] Loc: G.[address] [place] [address] Phys: Ventura Minor MD Acct: [id number] Dis Date: Status: ADM IN PHONE #: [phone] Exam Date: 06/23/2022721 FAX #: [phone] Reason: TRENDING EXAMS: CPT CODE: [id number] XR CHEST 1 V 57051 PROCEDURE INFORMATION: Exam: XR Chest Exam date and time: 06/23/2022 5:26 AM Age: 67 years old Clinical indication:Other: Trending TECHNIQUE: Imaging protocol: Radiologic exam of the chest. Views: 1 view. COMPARISON: CR XR CHEST 1V 06/22/2022 5:25 AM FINDINGS: Lungs: Unremarkable. No consolidation. Pleural spaces: Hazy shadowing is seen in the left lower hemithorax consistent with small left pleural effusion. Heart/Mediastinum: The cardiac silhouette demonstrates mild left ventricular enlargement as before without evidence of failure. Bones/joints: The patient has had a prior median sternotomy and CABG surgery. IMPRESSION: Shadowing in the left lower hemithorax likely representing small left pleural effusion. The this is probably unchanged from previous. Electronically Signed by Geetha Alan on 06/23/2022 at 09 Reported and signed by: Smith Alan M.D. CC: Ventura Minor MD; Bang Patel MD Technologist: Vlad Hou RT(R) Trnscrd Date/Time/By: 06/23/2022 (925) : By: [email or web address] Orig Print D/T: S: 06/23/2022 (925) PAGE 1 Signed ReportPROTHROMBIN [id number] 22:19:00 Test Item Value Reference Range Interpretation [...] (to prevent recurrent infar ct). 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 [facility] GLUCOSE [id number] 14:09:00 Test Item Value Reference Range Interpretation Comments GLUCOSE BEDSIDE (test 228 MG/DL 70-110 H Perfor med by certified code = GLUBED) 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 CREATININE (test 0.8 mg/dL 0.6-1.3 N code = CREAT) CALCIUM (test code = 8.6 mg/dL 8.0-10.5 N CA) [id number] 03:05:00 Test Item Value Reference Range Interpretation Comments MAGNESIUM (test code = MAG) 1.91 mg/dL 1.80-2.40 N CBC W/AUTO [id number] 02:50:00 Test Item Value Reference Range Interpretation [...] NO = MDIFF) - XR CHEST 1 [id number] 00:00:00 [facility] 1955 Sex: F FAX: Reva Murrell MD [phone] [place]: St: [facility] FAX: Evelin Aden [phone] Name: KALA TURPIN [facility] : 1955 Age/S: 67/F [address] Unit #: [id number] Loc: G.2205 [place] [address] Phys: Kassie Kim HOSPITAL NURSE Acct: [id number] Dis Date: Status: ADM IN PHONE #: [phone] Exam Date: 06/22/2022526 FAX #: [phone] Reason: Cardiac Surgery Post Op EXAMS: CPT CODE: [id number] XR CHEST 1 V 17071 PROCEDURE INFORMATION: Exam: XR Chest Exam date and time: 06/22/2022 5:25 AM Age: 67 years old Clinical indication: Other: Cardiac surgery post op TECHNIQUE: Imaging protocol: Radiologic exam of the chest. Views: 1 view. COMPARISON: CR XR CHEST 1V 06/21/2022 5:25 AM FINDINGS: Lungs: Unchanged left basilar airspace disease. Pleural spaces: Probable trace left pleural effusion. Nopneumothorax. Heart/Mediastinum: Unchanged cardiomediastinal silhouette. Bones/joints: Median sternotomy changes. IMPRESSION: 1. Unchanged left basilar airspace disease. 2. Probable trace left pleuraleffusion. at 0915 Reported and signed by: Pascale Crain M.D. 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 [facility] BASIC METABOLIC [id number] 02:39:00 Test Item Value Reference Range Interpretation [...] 8.8 mg/dL 8.0-10.5 N CA) HEPATIC FUNCTION [id number] 02:39:00 Test Item Value Reference Range Interpretation [...] INDIRECT (test code = 0.50 MG/DL BILIND) [id number] 02:39:00 Test Item Value Reference Range Interpretation Comments PHOSPHOROUS (test code = PHOS) 2.6 MG/DL 2.5-4.9 [id number] 02:39:00 Test Item Value Reference Range Interpretation Comments MAGNESIUM (test code = MAG) 2.09 mg/dL 1.80-2.40 N CALCIUM [id number] 02:39:00 Test Item Value Reference Range Interpretation Comments CALCIUM IONIZED (test code = ROBERTA) 1.17 MMOL/L 1.09-1.30 N CBC W/AUTO [id number] 02:21:00 Test Item Value Reference Range Interpretation [...] NO = MDIFF) - XR CHEST 1 [id number] 00:00:00 [facility] : 1955 Sex: F FAX: Reva Murrell MD [phone] [place]: GC St: ADM FAX: Evelin Aden [phone] Name: KALA TURPIN [facility]: 1955 Age/S: 67/F [address] [place] [address] Unit #: [id number] Loc: G.2205 [place] [address] Phys: Kassie Kim NP Acct: [id number] Dis Date: Status: ADM IN PHONE #: [phone] Date: 06/21/2022714 FAX #: [phone] Reason: Cardiac Surgery Post Op EXAMS: CPT CODE: [id number] XR CHEST 1 V 12870 PROCEDURE INFORMATION: Exam: XR Chest Exam date [...] pneumothorax. at 0916 Reported and signed by: Pascale Crain M.D. 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 [facility] POC ARTERIAL BLOOD [id number] 18:53:00 Test Item Value Reference Range Interpretation Comments POC ARTERIAL BLOOD GAS PH (test 7.459 7.35-7.45 H code = POCPHA) POC ARTERIAL BLOOD GAS PCO2 (test 36.1 mmHg 35.0-45 N code = GTANVN5F) POC TCO2 ARTERIAL (test code = 26.7 POCTCO2) POC ARTERIAL BLOOD GAS PO2 (test 75.0 mmHg 80-100.0 L code = YLRNR2D) POC HCO3 ARTERIAL (test code = 25.6 MMOL/L 22.0-26.0 N ODILVI5Z) POC BASE EXCESS (test code = 1.7 MMOL/L -4.0-4.0 N POCBEA) POC O2 SATURATION (test code = 95.6 % 90-100 N POCO2S) ABG DELIVERY (test code = HUNTER) Room Air ABG TEMPERATURE (test code = 98.8 F TEMPA) ABG SITE (test code = SITEA) Art Line BASIC METABOLIC [id number] 18:53:00 Test Item Value Reference Range Interpretation [...] = POCGLU) 139 MG/DL 70-110 H HEMOGLOBIN [id number] 18:53:00 Test Item Value Reference Range Interpretation Comments HEMOGLOBIN ABG (test code = HGB/ABG) 8.4 G/DL 11.0-15.0 L [id number] 18:53:00 Test Item Value Reference Range Interpretation Comments HEMATOCRIT (test code = HCT/ABG) 25 % 33.0-45.0 L POC LACTIC [id number] 18:53:00 Test Item Value Reference Range Interpretation Comments POC LACTIC ACID (test code = 1.0 mmol/l 0.9-1.7 N POCLAC) BASIC METABOLIC [id number] 17:21:00 Test Item Value Reference Range Interpretation [...] code = 9.0 mg/dL 8.0-10.5 N CA) [id number] 17:21:00 Test Item Value Reference Range Interpretation Comments MAGNESIUM (test code = MAG) 1.99 mg/dL 1.80-2.40 [id number] 14:50:00 Test Item Value Reference Range Interpretation Comments SURGICAL (test code = SR) R UN DATE: 06/20/22 [place] - LAB PAGE 1 RUN TIME: 4781 Specimen Inquiry RUN USER: INTERFACE P ATIENT: KALA TURPIN LOC: MISSY U #: [id number] AGE/SX: 67/F ROOM: [facility] RE06/15/22REG DR: Reva Murrell MD : [birth year] BED: 1 DIS: STATUS: ADM IN TLOC: SPEC #: [id number] RECD: 06/19/22 STATUS: DAVON YUN #: [id number] RK: 06/16/22- SUBM DR: Peggy Rogel MD ENTERED: 06/19/22 SP TYPE: SURGICAL OTHR DR: Self Referred Julius Washington MD EDDOC, GENERIC FOR EDM Srinivas Berry MD, Kuldip K MD Undefined ProviderORDERED: 21125, ANATOMIC SPEC COPIES TO: Self Referred Julius Washington MD [address] [place] [address] Peggy Rogel MD [address] [place] [address]. [address] [place] [address] EDDOC, GENERIC FOR ED [address] [place] [address] Srinivas Berry MD, Kuldip K MD [address] [facility] [address] [place] [address] Undefined Provider PROCEDURES: 95607 (06/19/22) TISSUES: A. ATRIUM - LEFT ATRIAL APPENDAGE CONTINUED ON NEXT PAGE R UN DATE: 06/20/22 [place] - LAB PAGE 2 RUN TIME: 1451 Specimen Inquiry RUN USER: INTERFACE S PEC #: [id number] PATIENT: KALA TURPIN #[id number] (Continued) CLINICAL HISTORY SAME FINAL DIAGNOSIS Heart, left atrial appendage, wedge biopsy: Myocardium with focal mild ischemic change. GROSS DESCRIPTION Received in formalin labeled "left atrial appendage "is a wedge biopsy of heart, 3.5 x 1.8x 1.0 cm, sectioned and entirely submitted (A). Technical component performed at [facility],[address] [place] [address], [place] [address] Unless gross only, the diagnosis is based [...] Signed SIGNATURE ON FILE Gato Mane 06/20/22 1450 END OF REPORT BASIC METABOLIC [id number] 03:45:00 Test Item Value Reference Range Interpretation [...] 8.8 mg/dL 8.0-10.5 N CA) HEPATIC FUNCTION [id number] 03:45:00 Test Item Value Reference Range Interpretation [...] INDIRECT (test code = 0.50 MG/DL BILIND) [id number] 03:45:00 Test Item Value Reference Range Interpretation Comments PHOSPHOROUS (test code = PHOS) 3.7 MG/DL 2.5-4.9 [id number] 03:45:00 Test Item Value Reference Range Interpretation Comments MAGNESIUM (test code = MAG) 2.40 mg/dL 1.80-2.40 CALCIUM [id number] 03:45:00 Test Item Value Reference Range Interpretation Comments CALCIUM IONIZED (test code = ROBERTA) 1.17 MMOL/L 1.09-1.30 N CBC W/AUTO [id number] 03:15:00 Test Item Value Reference Range Interpretation [...] REQUIRED (test code NO = MDIFF) GLUCOSE [id number] 03:05:00 Test Item Value Reference Range Interpretation Comments GLUCOSE BEDSIDE (test 126 MG/DL 70-110 H Perfor med by certified code = GLUBED) 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 [facility] - XR CHEST 1 [id number] 00:00:00 [facility] : 1955 Sex: F FAX: Reva Murrell MD [phone] [place]: St: ADM FAX: Evelin Aden [phone] Name: PAPIKALA TEE [facility] : 1955 Age/S: 67/F [address] [place] [address] Unit #: [id number] Loc: G.2205 [place] [address] Phys: Kassie Kim HOSPITAL NURSE Acct: [id number] Dis Date: Status: ADM IN PHONE #: [phone] Date: 06/20/2022520 FAX #: [phone] Reason: Cardiac Surgery Post Op EXAMS: CPT CODE: [id number] XR CHEST 1 V 39889 PROCEDURE INFORMATION: Exam: XR Chest Exam date and time: 06/20/2022 5:18 AM Age: 67 years old Clinical indication: Other: Cardiac surgery post op TECHNIQUE: Imaging protocol: Radiologic exam of the chest. Views: 1 view. COMPARISON: 1. CR XR CHEST 1V 06/19/2022 5:37 AM 2. CR XR CHEST 1V 06/18/2022 6:56 AM FINDINGS: Tubes, catheters and devices: Right internal jugular Sadorus-Ganzcatheter sheath in place. 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 CREATININE (test 0.7 mg/dL 0.6-1.3 N code = CREAT) CALCIUM (test code = 9.0 mg/dL 8.0-10.5 N CA) [id number] 18:22:00 Test Item Value Reference Range Interpretation Comments PHOSPHOROUS (test code = PHOS) 1.9 MG/DL 2.5-4.9 L [id number] 18:22:00 Test Item Value Reference Range Interpretation Comments MAGNESIUM (test code = MAG) 1.86 mg/dL 1.80-2.40 N CALCIUM [id number] 18:22:00 Test Item Value Reference Range Interpretation Comments CALCIUM IONIZED (test code = ROBERTA) 1.21 MMOL/L 1.09-1.30 N GLUCOSE [id number] 04:56:00 Test Item Value Reference Range Interpretation Comments GLUCOSE BEDSIDE (test 165 MG/DL 70-110 H Perfor med by certified code = GLUBED) 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 [facility] BASIC METABOLIC [id number] 04:08:00 Test Item Value Reference Range Interpretation [...] 8.0-10.5 N CA) COMMENTS: POD #1HEPATIC FUNCTION [id number] 04:08:00 Test Item Value Reference Range Interpretation [...] 20-125 N code = ALKP) COMMENTS: POD #[id number] 04:08:00 Test Item Value Reference Range Interpretation Comments MAGNESIUM (test code = MAG) 1.78 mg/dL 1.80-2.40 L COMMENTS: POD #1CBC W/AUTO [id number] 04:00:00 Test Item Value Reference Range Interpretation [...] REQUIRED (test code NO = MDIFF) GLUCOSE [id number] 02:10:00 Test Item Value Reference Range Interpretation Comments GLUCOSE BEDSIDE (test 146 MG/DL 70-110 H Perfor med by certified code = GLUBED) 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 [facility] GLUCOSE [id number] 00:21:00 Test Item Value Reference Range Interpretation Comments GLUCOSE BEDSIDE (test 125 MG/DL 70-110 H Perfor med by certified code = GLUBED) 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 [facility] - XR CHEST 1 [id number] 00:00:00 [facility] : 1955 Sex: F FAX: Reva Murrell MD [phone] [place]: St: [facility] FAX: Evelin Aden [phone] Name: PAPIKALA [facility] : 1955 Age/S: 67/F [address] [place] [address] Unit #: [id number] Loc: [place] [address] Phys: Kassie Kim HOSPITAL NURSE Acct: [id number] Dis Date: Status: ADM IN PHONE #: [phone] Exam Date: 06/19/2022704 FAX #: [phone] Reason: Cardiac Surgery Post Op EXAMS: CPT CODE: [id number] XR CHEST 1 V 23310 PROCEDURE INFORMATION: Exam: XR Chest Exam date and time: 06/19/2022 5:37 AM Age: 67 years old Clinical indication: Other: Cardiac surgery post op TECHNIQUE: Imaging protocol: Radiologic exam of the chest. Views: 1 view. COMPARISON: 1. CR XR CHEST 1V 06/18/2022 6:56 AM 2. CR XR CHEST 1V 06/17/2022 6:21 AM FINDINGS: Tubes, catheters and devices: Right IJ Sadorus-Raquel catheter sheathin place. Mediastinal and left thoracostomy drains have been removed. Lungs: Indistinct perihilar and infrahilar opacities are unchanged. Bandlike opacity left mid lung zone compatible with subsegmental atelectasis. 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 CREATININE (test 0.9 mg/dL 0.6-1.3 N code = CREAT) CALCIUM (test code = 8.9 mg/dL 8.0-10.5 N CA) POC ARTERIAL BLOOD [id number] 16:03:00 Test Item Value Reference Range Interpretation Comments POC ARTERIAL BLOOD GAS PH (test 7.436 7.35-7.45 N code = POCPHA) POC ARTERIAL BLOOD GAS PCO2 (test 41.2 mmHg 35.0-45 N code = EMOGEC4W) POC TCO2 ARTERIAL (test code = 28.9 POCTCO2) POC ARTERIAL BLOOD GAS PO2 (test 93.6 mmHg 80-100.0 N code = LPFFK1F) POC HCO3 ARTERIAL (test code = 27.7 MMOL/L 22.0-26.0 H EPYKNX7M) POC BASE EXCESS (test code = 3.5 MMOL/L -4.0-4.0 N POCBEA) POC O2 SATURATION (test code = 97.4 % 90-100 N POCO2S) ABG DELIVERY (test code = HUNTER) Cannula ABG TEMPERATURE (test code = 99 F TEMPA) ABG SITE (test code = SITEA) Art Line BASIC METABOLIC [id number] 16:03:00 Test Item Value Reference Range Interpretation [...] = POCGLU) 175 MG/DL 70-110 H HEMOGLOBIN [id number] 16:03:00 Test Item Value Reference Range Interpretation Comments HEMOGLOBIN ABG (test code = HGB/ABG) 8.1 G/DL 11.0-15.0 L [id number] 16:03:00 Test Item Value Reference Range Interpretation Comments HEMATOCRIT (test code = HCT/ABG) 24 % 33.0-45.0 L POC LACTIC [id number] 16:03:00 Test Item Value Reference Range Interpretation Comments POC LACTIC ACID (test code = 0.8 mmol/l 0.9-1.7 L POCLAC) GLUCOSE [id number] 15:56:00 Test Item Value Reference Range Interpretation Comments GLUCOSE BEDSIDE (test 163 MG/DL 70-110 H Perfor med by certified code = GLUBED) 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 [facility] GLUCOSE [id number] 11:59:00 Test Item Value Reference Range Interpretation Comments GLUCOSE BEDSIDE (test 152 MG/DL 70-110 H Perfor med by certified code = GLUBED) 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 [facility] GLUCOSE [id number] 07:58:00 Test Item Value Reference Range Interpretation Comments GLUCOSE BEDSIDE (test 193 MG/DL 70-110 H [facility] by certified code = GLUBED) 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 [facility] BASIC METABOLIC [id number] 03:37:00 Test Item Value Reference Range Interpretation [...] the recommended for lela for GFRby the [facility] on for Adults.The GFR will not calculate if th e sex is unknown or if thepatient's ag e is <18 years. CREATININE (test 1.0 mg/dL 0.6-1.3 N code = CREAT) CALCIUM (test code = 8.8 mg/dL 8.0-10.5 N CA) COMMENTS: POD #1HEPATIC FUNCTION [id number] 03:37:00 Test Item Value Reference Range Interpretation [...] 20-125 N code = ALKP) COMMENTS: POD #[id number] 03:37:00 Test Item Value Reference Range Interpretation Comments MAGNESIUM (test code = MAG) 2.21 mg/dL 1.80-2.40 COMMENTS: POD #1T4 [id number] 03:37:00 Test Item Value Reference Range Interpretation Comments T4 FREE (test code = T4F) 1.2 ng/dL 0.77-1.61 N COMMENTS: POD #1THYROID STIMULATING [id number] 03:37:00 Test Item Value Reference Range Interpretation Comments THYROID STIMULATING 0.38 0.42-5.47 L Results in HORMONE (test code = TSH) mi lli-International Units/mL COMMENTS: POD #1CBC W/AUTO [id number] 02:45:00 Test Item Value Reference Range Interpretation [...] NO code = MDIFF) POC ARTERIAL BLOOD [id number] 02:38:00 Test Item Value Reference Range Interpretation Comments POC ARTERIAL BLOOD GAS PH (test 7.317 7.35-7.45 L code = POCPHA) POC ARTERIAL BLOOD GAS PCO2 (test 54.1 mmHg 35.0-45 HH code = NPTVIO1X) POC TCO2 ARTERIAL (test code = 29.4 POCTCO2) POC ARTERIAL BLOOD GAS PO2 (test 83.3 mmHg 80-100.0 N code = ATYGK9N) POC HCO3 ARTERIAL (test code = 27.7 MMOL/L 22.0-26.0 H PUTYLB8K) POC BASE EXCESS (test code = 1.6 MMOL/L -4.0-4.0 N POCBEA) POC O2 SATURATION (test code = 94.9 % 90-100 N POCO2S) ABG DELIVERY (test code = HUNTER) HFNC ABG SITE (test code = SITEA) Art Line BASIC METABOLIC [id number] 02:38:00 Test Item Value Reference Range Interpretation [...] = POCGLU) 206 MG/DL 70-110 H HEMOGLOBIN [id number] 02:38:00 Test Item Value Reference Range Interpretation Comments HEMOGLOBIN ABG (test code = HGB/ABG) 8.5 G/DL 11.0-15.0 L [id number] 02:38:00 Test Item Value Reference Range Interpretation Comments HEMATOCRIT (test code = HCT/ABG) 25 % 33.0-45.0 L POC LACTIC [id number] 02:38:00 Test Item Value Reference Range Interpretation Comments POC LACTIC ACID (test code = 0.8 mmol/l 0.9-1.7 L POCLAC) GLUCOSE [id number] 00:44:00 Test Item Value Reference Range Interpretation Comments GLUCOSE BEDSIDE (test 176 MG/DL 70-110 H Perfor med by certified code = GLUBED) 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 [facility] - XR CHEST 1 [id number] 00:00:00 [facility] : 1955 Sex: F FAX: Reva Murrell MD [phone] [place]: St: ADM FAX: Evelin Aden [phone] Name: PAPIKALA [facility] : 1955 Age/S: 67/F [address] [place] [address] Unit #: [id number] Loc: [address] [place] [address] Phys: Evelin Kimz HOSPITAL NURSE Acct: [id number] Dis Date: Status: ADM IN PHONE #: [phone] Date: 06/18/2022904 FAX #: [phone] Reason: Cardiac Surgery Post Op EXAMS: CPT CODE: [id number] XR CHEST 1 V 10032 PROCEDURE INFORMATION: Exam: XR Chest Exam date and time: 06/18/2022 6:56 AM Age: 67 years old Clinical indication: Other: Cardiac surgery post op TECHNIQUE: Imaging protocol: Radiologic exam of the chest. Views: 1 view. COMPARISON: CR XR CHEST 1V 06/17/2022 6:21 AM FINDINGS: Tubes, catheters and devices: Right neck dialysis catheter tip is positioned over the proximal SVC region. Left large bore chest tube is demonstrated. Lungs: Lung volumes are decreased. Itiq-ea-gyakcsaj bi lateral perihilar and basilar interstitial lung opacities, suggesting pulmonary edema versus infiltrates. The peripheral lungs are otherwise clear. The pulmonary opacities are most prominent within thelower left lung. Linear density identified within the left perihilar lung. Pleural spaces: Small left-sided pneumothorax is demonstrated. Left-sided pneumothorax measurement: 12-13 mm thickness within left apical chest. No other pleural effusion or pneumothorax identified. Heart/Mediastinum: Cardiac silhouette appears mildly enlarged. Bones/joints: Sternotomy wires, hardware is demonstrated. Mild generalized bony degenerative changes. Soft tissues: This study is limited by patient's body habitus. Other findings: Limited evaluation with patient rotation. IMPRESSION: 1. Mild enlarged cardiac silhouette. 2. Xgjp-od-heksknuw pulmonary edema versus infiltrates. 3. Linear left perihilar pulmonary atelectasis, scarring. Decreased lung volumes. 4. Left-sided chest tube with small in the thorax in the left apical chest. at 1028 Reported and signed by: Victor Manuel Mcallister M.D. PAGE 1 Signed Report (CONTINUED) FAX: Reva Murrell MD [phone] [place]: St: ADM FAX: Evelin Aden [phone] Name: KALA TURPIN [facility] : 1955 Age/S: 67/F [address] [place] [address] Unit #: [id number] Loc: G.2205 [place] [address] Phys: Kassie Aden HOSPITAL NURSE Acct: [id number] Dis Date: Status: ADM IN PHONE #: [phone] Exam Date: 0 06/18/2022 0905 FAX #: [phone] Reason: Cardiac Surgery Post Op EXAMS: CPT CODE: [id number] XR CHEST 1 V 77993 (Continued) CC: Reva Murrell MD; Kassie Aden NP Technologist: Fermin Cunningham; RT Giovanna(R) Trnscrd Date/Time/By: 06/18/2022 (1028) : By: [email or web address] Orig Print D/T: S: 06/18/2022 (1028) PAGE 2 Signed ReportGLUCOSE [id number] 20:31:00 Test Item Value Reference Range Interpretation Comments GLUCOSE BEDSIDE (test 156 MG/DL 70-110 H Perfor med by certified code = GLUBED) 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 [facility] GLUCOSE [id number] 18:10:00 Test Item Value Reference Range Interpretation Comments GLUCOSE BEDSIDE (test 155 MG/DL 70-110 H Perfor med by certified code = GLUBED) 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 [facility] GLUCOSE [id number] 16:13:00 Test Item Value Reference Range Interpretation Comments GLUCOSE BEDSIDE (test 182 MG/DL 70-110 H Perfor med by certified code = GLUBED) 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 [facility] GLUCOSE [id number] 14:10:00 Test Item Value Reference Range Interpretation Comments GLUCOSE BEDSIDE (test 172 MG/DL 70-110 H Perfor med by certified code = GLUBED) 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 CREATININE (test 1.0 mg/dL 0.6-1.3 N code = CREAT) CALCIUM (test code = 8.4 mg/dL 8.0-10.5 N CA) COMMENTS: POD #1HEPATIC FUNCTION [id number] 03:41:00 Test Item Value Reference Range Interpretation [...] code = 0.30 MG/DL BILIND) COMMENTS: POD #[id number] 03:41:00 Test Item Value Reference Range Interpretation Comments MAGNESIUM (test code = MAG) 1.87 mg/dL 1.80-2.40 COMMENTS: POD #1CALCIUM [id number] 03:41:00 Test Item Value Reference Range Interpretation Comments CALCIUM IONIZED (test code = ROBERTA) 1.18 MMOL/L 1.09-1.30 N COMMENTS: POD #1POC ARTERIAL BLOOD [id number] 03:38:00 Test Item Value Reference Range Interpretation Comments POC ARTERIAL BLOOD GAS PH (test 7.336 7.35-7.45 L code = POCPHA) POC ARTERIAL BLOOD GAS PCO2 (test 48.3 mmHg 35.0-45 H code = HUWRIH1U) POC TCO2 ARTERIAL (test code = 27.2 POCTCO2) POC ARTERIAL BLOOD GAS PO2 (test 127.7 mmHg 80-100.0 H code = QJDVF7Q) POC HCO3 ARTERIAL (test code = 25.8 MMOL/L 22.0-26.0 N AKSKXZ3C) POC BASE EXCESS (test code = 0.0 MMOL/L -4.0-4.0 N POCBEA) POC O2 SATURATION (test code = 98.6 % 90-100 N POCO2S) ABG DELIVERY (test code = HUNTER) HFNC ABG TEMPERATURE (test code = 99.1 F TEMPA) ABG SITE (test code = SITEA) Art Line BASIC METABOLIC [id number] 03:38:00 Test Item Value Reference Range Interpretation [...] = POCGLU) 237 MG/DL 70-110 H HEMOGLOBIN [id number] 03:38:00 Test Item Value Reference Range Interpretation Comments HEMOGLOBIN ABG (test code = HGB/ABG) 7.7 G/DL 11.0-15.0 L [id number] 03:38:00 Test Item Value Reference Range Interpretation Comments HEMATOCRIT (test code = HCT/ABG) 23 % 33.0-45.0 L POC LACTIC [id number] 03:38:00 Test Item Value Reference Range Interpretation Comments POC LACTIC ACID (test code = 1.4 mmol/l 0.9-1.7 N POCLAC) CBC W/AUTO [id number] 03:27:00 Test Item Value Reference Range Interpretation [...] REQUIRED (test NO code = MDIFF) GLUCOSE [id number] 02:32:00 Test Item Value Reference Range Interpretation Comments GLUCOSE BEDSIDE (test 222 MG/DL 70-110 H Perfor med by certified code = GLUBED) 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 CREATININE (test 1.0 mg/dL 0.6-1.3 N code = CREAT) CALCIUM (test code = 8.3 mg/dL 8.0-10.5 N CA) CBC W/AUTO [id number] 00:00:00 Test Item Value Reference Range Interpretation [...] NO = MDIFF) - XR CHEST 1 [id number] 00:00:00 [facility] : 1955 Sex: F FAX: Reva Murrell MD [phone] [place]: St: ADM FAX: Evelin Aden [phone] Name: KALA TURPIN [facility] : 1955 Age/S: 67/F [address] [place] [address] Unit #: [id number] Loc: .[address] [place] [address] Phys: Evelin Kimz HOSPITAL NURSE Acct: [id number] Dis Date: Status: ADM IN PHONE #: [phone] Date: 06/17/2022 0002 FAX #: [phone] Reason: Cardiac Surgery Post Op EXAMS: CPT CODE: [id number] XR CHEST 1 V 14307 PROCEDURE INFORMATION: Exam: XR Chest Exam date and time: 06/17/2022 6:21 AM Age: 67 years old Clinical indication: Other: Cardiac surgery post op TECHNIQUE: Imaging protocol: Radiologic exam of the chest. Views: 1 view. Portable technique, shallow inspiration. COMPARISON: CR XR CHEST 1V 06/16/2022 1:57 PM FINDINGS: Tubes, catheters and devices: Right jugular catheter over theSVC. Drain over the left base. Lungs: Stable left juxtahilar subsegmental atelectasis. Similar opacity over the medial left base. Pleural spaces: No pleural fluid or gas. Heart/Mediastinum: Stable cardiomegaly. Bones/joints: Sternotomy. No significant skeletal abnormality. IMPRESSION: Shallow inspiration with mild atelectatic changes primarily on the left. at 0906 Reported and signed by: Alfonso Garay M.D. CC: Reva Murrell MD; Kassie Aden NP Technologist: She Murphy, RT(R) Trnscrd Date/Time/By: 06/17/2022 (905) : By: [email or web address] Orig Print D/T: S: 06/17/2022 (905) PAGE 1 Signed Report- XR ABDOMEN 1V (KUB)2022-06-17 00:00:00 [facility] 1955 Sex: F FAX: Reva Murrell MD [phone] [place]: St: ADM FAX: Tony Ruby MD [phone] Name: KALA TURPIN [facility] : 1955 Age/S: 67/F [address] [place] [address] Unit #: [id number] Loc: G.[address] [place] [address] Phys: Tony Ruby MD Acct: [id number] Dis Date: Status: ADM IN PHONE #: [phone] Exam Date:06/16/2022 0831 FAX #: [phone] Reason: S/P CABG, BURPING, NAUSEA EXAMS: CPT CODE: [id number] XR ABDOMEN 1V (KUB) 76940 PROCEDURE INFORMATION: Exam: XR Abdomen Exam date and time: 06/17/2022 12:00 AM Age: 67 years old Clinical indication: Bloating and vomiting; Additional info: S/P cabg, burping, nausea TECHNIQUE: Imaging protocol: Radiologic exam of the abdomen. Views: Frontal supine view of the abdomen. 1 View. 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 [facility] GLUCOSE [id number] 21:13:00 Test Item Value Reference Range Interpretation Comments GLUCOSE BEDSIDE (test 186 MG/DL 70-110 H Perfor med by certified code = GLUBED) 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 [facility] CBC W/AUTO [id number] 18:54:00 Test Item Value Reference Range Interpretation [...] REQUIRED (test code NO = MDIFF) PLT [id number] 18:54:00 Test Item Value Reference Range Interpretation Comments PLATELET ESTIMATE (test code 88-110 THOUSAND ADEQUATE = PLTEST) BASIC METABOLIC [id number] 18:39:00 Test Item Value Reference Range Interpretation [...] the recommended for lela for GFRby the [facility] for Adults.The GFR will not calculate if th e sex is unknown or if thepatient's ag e is <18 years. CREATININE (test 1.0 mg/dL 0.6-1.3 N code = CREAT) CALCIUM (test code = 8.6 mg/dL 8.0-10.5 N CA) POC ARTERIAL BLOOD [id number] 17:43:00 Test Item Value Reference Range Interpretation Comments POC ARTERIAL BLOOD GAS PH (test 7.513 7.35-7.45 HH code = POCPHA) POC ARTERIAL BLOOD GAS PCO2 33.7 mmHg 35.0-45 L (test code = NUHVCR4X) POC TCO2 ARTERIAL (test code = 28.1 POCTCO2) POC ARTERIAL BLOOD GAS PO2 (test 140.6 mmHg 80-100.0 H code = NOEWN1N) POC HCO3 ARTERIAL (test code = 27.1 MMOL/L 22.0-26.0 H LJLAET9R) POC BASE EXCESS (test code = 4.1 MMOL/L -4.0-4.0 H POCBEA) POC O2 SATURATION (test code = 99.4 % 90-100 N POCO2S) FIO2 (test code = FIO2A) 40 % PaO2/FiO2 (test code = QVM1AON6) 351.50 mm/Hg ABG DELIVERY (test code = HUNTER) Adult Vent ABG VENT MODE (test code = CPAP/PS MODEA) ABG VENT RESP RATE (test code = 10 /MIN RRA) ABG PEEP (test code = PEEPA) 5 cmH2O ABG PRESSURE SUPPORT (test code 10 cmH2O = PSABG) ABG TEMPERATURE (test code = 98.8 F TEMPA) ABG SITE (test code = SITEA) Art Line BASIC METABOLIC [id number] 17:43:00 Test Item Value Reference Range Interpretation [...] = POCGLU) 178 MG/DL 70-110 H HEMOGLOBIN [id number] 17:43:00 Test Item Value Reference Range Interpretation Comments HEMOGLOBIN ABG (test code = HGB/ABG) 6.3 G/DL 11.0-15.0 L [id number] 17:43:00 Test Item Value Reference Range Interpretation Comments HEMATOCRIT (test code = HCT/ABG) 18 % 33.0-45.0 L POC ARTERIAL BLOOD [id number] 16:00:00 Test Item Value Reference Range Interpretation Comments POC ARTERIAL BLOOD GAS PH (test 7.438 7.35-7.45 N code = POCPHA) POC ARTERIAL BLOOD GAS PCO2 40.1 mmHg 35.0-45 N (test code = PQDIHU3K) POC TCO2 ARTERIAL (test code = 28.5 POCTCO2) POC ARTERIAL BLOOD GAS PO2 (test 122.8 mmHg 80-100.0 H code = BSSLI0N) POC HCO3 ARTERIAL (test code = 27.2 MMOL/L 22.0-26.0 H POOCXT7C) POC BASE EXCESS (test code = 3.0 MMOL/L -4.0-4.0 N POCBEA) POC O2 SATURATION (test code = 98.9 % 90-100 N POCO2S) FIO2 (test code = FIO2A) 40 % PaO2/FiO2 (test code = GNF5FLW9) 307.00 mm/Hg ABG DELIVERY (test code = HUNTER) Adult Vent ABG VENT MODE (test code = AC MODEA) ABG VENT RESP RATE (test code = 20 /MIN RRA) ABG TIDAL VOLUME (test code = 450 ml TVA) ABG PEEP (test code = PEEPA) 5 cmH2O ABG TEMPERATURE (test code = 98.1 F TEMPA) ABG SITE (test code = SITEA) Art Line BASIC METABOLIC [id number] 16:00:00 Test Item Value Reference Range Interpretation [...] = POCGLU) 168 MG/DL 70-110 H HEMOGLOBIN [id number] 16:00:00 Test Item Value Reference Range Interpretation Comments HEMOGLOBIN ABG (test code = HGB/ABG) 6.0 G/DL 11.0-15.0 L [id number] 16:00:00 Test Item Value Reference Range Interpretation Comments HEMATOCRIT (test code = HCT/ABG) 18 % 33.0-45.0 L POC ARTERIAL BLOOD [id number] 14:09:00 Test Item Value Reference Range Interpretation Comments POC ARTERIAL BLOOD GAS PH (test 7.259 7.35-7.45 LL code = POCPHA) POC ARTERIAL BLOOD GAS PCO2 55.4 mmHg 35.0-45 HH (test code = WCJREJ9G) POC TCO2 ARTERIAL (test code = 26.7 POCTCO2) POC ARTERIAL BLOOD GAS PO2 (test 113.9 mmHg 80-100.0 H code = WDVVQ6A) POC HCO3 ARTERIAL (test code = 25.0 MMOL/L 22.0-26.0 N FVKEGC9U) POC BASE EXCESS (test code = -2.2 MMOL/L -4.0-4.0 N POCBEA) POC O2 SATURATION (test code = 97.7 % 90-100 N POCO2S) FIO2 (test code = FIO2A) 40 % PaO2/FiO2 (test code = LUX7XQG5) 284.75 mm/Hg ABG DELIVERY (test code = HUNTER) Adult Vent ABG VENT MODE (test code = CPAP/PS MODEA) ABG VENT RESP RATE (test code = 9 /MIN RRA) ABG PEEP (test code = PEEPA) 5 cmH2O ABG PRESSURE SUPPORT (test code 10 cmH2O = PSABG) ABG TEMPERATURE (test code = 97.5 F TEMPA) ABG SITE (test code = SITEA) Art Line BASIC METABOLIC [id number] 14:09:00 Test Item Value Reference Range Interpretation [...] = POCGLU) 230 MG/DL 70-110 H HEMOGLOBIN [id number] 14:09:00 Test Item Value Reference Range Interpretation Comments HEMOGLOBIN ABG (test code = HGB/ABG) 6.6 G/DL 11.0-15.0 L [id number] 14:09:00 Test Item Value Reference Range Interpretation Comments HEMATOCRIT (test code = HCT/ABG) 19 % 33.0-45.0 L POC LACTIC [id number] 14:09:00 Test Item Value Reference Range Interpretation Comments POC LACTIC ACID (test code = 6.0 mmol/l 0.9-1.7 HH POCLAC) GLUCOSE [id number] 13:22:00 Test Item Value Reference Range Interpretation Comments GLUCOSE BEDSIDE (test 232 MG/DL 70-110 H Perfor med by certified code = GLUBED) 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 COMMENTS: On arrivalTHROMBOPLASTIN TIME [id number] 12:39:00 Test Item Value Reference Range Interpretation Comments THROMBOPLASTIN TIME 30.7 Seconds 25.0-39.5 N Therape utic Range: PARTIAL (test code = 50.4 - 88.3 Seconds PTT) Effective 07/09/2018 COMMENTS: On arrivalPOC ARTERIAL BLOOD [id number] 12:29:00 Test Item Value Reference Range Interpretation Comments POC ARTERIAL BLOOD GAS PH (test 7.248 7.35-7.45 LL code = POCPHA) POC ARTERIAL BLOOD GAS PCO2 48.3 mmHg 35.0-45 H (test code = FQJDFN8H) POC TCO2 ARTERIAL (test code = 22.8 POCTCO2) POC ARTERIAL BLOOD GAS PO2 (test 127.7 mmHg 80-100.0 H code = VTLVR5C) POC HCO3 ARTERIAL (test code = 21.3 MMOL/L 22.0-26.0 L UQOXKZ9R) POC BASE EXCESS (test code = -6.2 MMOL/L -4.0-4.0 L POCBEA) POC O2 SATURATION (test code = 98.4 % 90-100 N POCO2S) FIO2 (test code = FIO2A) 60 % PaO2/FiO2 (test code = WHQ5QEO0) 212.83 mm/Hg ABG DELIVERY (test code = [...] (test code = N/A ALLENS) BASIC METABOLIC [id number] 12:29:00 Test Item Value Reference Range Interpretation [...] = POCGLU) 236 MG/DL 70-110 H HEMOGLOBIN [id number] 12:29:00 Test Item Value Reference Range Interpretation Comments HEMOGLOBIN ABG (test code = HGB/ABG) 6.1 G/DL 11.0-15.0 L [id number] 12:29:00 Test Item Value Reference Range Interpretation Comments HEMATOCRIT (test code = HCT/ABG) 18 % 33.0-45.0 L CBC W/AUTO [id number] 12:27:00 Test Item Value Reference Range Interpretation [...] (test NO code = MDIFF) COMMENTS: On [id number] 11:49:00 Test Item Value Reference Range Interpretation Comments ACT-ISTAT (test code 143 SEC 74-137 H Perform ed by certified = ACTI) 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 [facility] POC ARTERIAL BLOOD [id number] 11:46:00 Test Item Value Reference Range Interpretation Comments POC ARTERIAL BLOOD GAS PH (test 7.358 7.35-7.45 N code = POCPHA) POC ARTERIAL BLOOD GAS PCO2 (test 35.7 mmHg 35.0-45 N code = WFDNQB3Q) POC TCO2 ARTERIAL (test code = 21.2 POCTCO2) POC ARTERIAL BLOOD GAS PO2 (test 334.3 mmHg 80-100.0 HH code = BDMHZ9K) POC HCO3 ARTERIAL (test code = 20.1 MMOL/L 22.0-26.0 L KFLUUM3X) POC BASE EXCESS (test code = -4.9 MMOL/L -4.0-4.0 L POCBEA) POC O2 SATURATION (test code = 99.9 % 90-100 N POCO2S) BASIC METABOLIC [id number] 11:46:00 Test Item Value Reference Range Interpretation [...] = POCGLU) 202 MG/DL 70-110 H HEMOGLOBIN [id number] 11:46:00 Test Item Value Reference Range Interpretation Comments HEMOGLOBIN ABG (test code = HGB/ABG) 7.6 G/DL 11.0-15.0 L [id number] 11:46:00 Test Item Value Reference Range Interpretation Comments HEMATOCRIT (test code = HCT/ABG) 22 % 33.0-45.0 L POC LACTIC [id number] 11:46:00 Test Item Value Reference Range Interpretation Comments POC LACTIC ACID (test code = 3.0 mmol/l 0.9-1.7 H POCLAC) [id number] 10:58:00 Test Item Value Reference Range Interpretation Comments ACT-ISTAT (test code 618 SEC 74-137 H Perform ed by certified = ACTI) 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 [facility] POC ARTERIAL BLOOD [id number] 10:46:00 Test Item Value Reference Range Interpretation Comments POC ARTERIAL BLOOD GAS PH (test 7.424 7.35-7.45 N code = POCPHA) POC ARTERIAL BLOOD GAS PCO2 (test 41.1 mmHg 35.0-45 N code = EHFONW6E) POC TCO2 ARTERIAL (test code = 28.1 POCTCO2) POC ARTERIAL BLOOD GAS PO2 (test 243.5 mmHg 80-100.0 HH code = UALUN1M) POC HCO3 ARTERIAL (test code = 26.9 MMOL/L 22.0-26.0 H TIQMTK1V) POC BASE EXCESS (test code = 2.2 MMOL/L -4.0-4.0 N POCBEA) POC O2 SATURATION (test code = 99.8 % 90-100 N POCO2S) BASIC METABOLIC [id number] 10:46:00 Test Item Value Reference Range Interpretation [...] = POCGLU) 173 MG/DL 70-110 H HEMOGLOBIN [id number] 10:46:00 Test Item Value Reference Range Interpretation Comments HEMOGLOBIN ABG (test code = HGB/ABG) 8.0 G/DL 11.0-15.0 L [id number] 10:46:00 Test Item Value Reference Range Interpretation Comments HEMATOCRIT (test code = HCT/ABG) 24 % 33.0-45.0 L POC LACTIC [id number] 10:46:00 Test Item Value Reference Range Interpretation Comments POC LACTIC ACID (test code = 2.7 mmol/l 0.9-1.7 H POCLAC) [id number] 10:31:00 Test Item Value Reference Range Interpretation Comments ACT-ISTAT (test code 805 SEC 74-137 H Perform ed by certified = ACTI) 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 [facility] POC ARTERIAL BLOOD [id number] 10:14:00 Test Item Value Reference Range Interpretation Comments POC ARTERIAL BLOOD GAS PH (test 7.463 7.35-7.45 H code = POCPHA) POC ARTERIAL BLOOD GAS PCO2 (test 38.0 mmHg 35.0-45 N code = RYKUKV5I) POC TCO2 ARTERIAL (test code = 28.4 POCTCO2) POC ARTERIAL BLOOD GAS PO2 (test 304.9 mmHg 80-100.0 HH code = KQYEN6A) POC HCO3 ARTERIAL (test code = 27.2 MMOL/L 22.0-26.0 H KEWSFP6H) POC BASE EXCESS (test code = 3.2 MMOL/L -4.0-4.0 N POCBEA) POC O2 SATURATION (test code = 99.9 % 90-100 N POCO2S) BASIC METABOLIC [id number] 10:14:00 Test Item Value Reference Range Interpretation [...] = POCGLU) 171 MG/DL 70-110 H HEMOGLOBIN [id number] 10:14:00 Test Item Value Reference Range Interpretation Comments HEMOGLOBIN ABG (test code = HGB/ABG) 8.8 G/DL 11.0-15.0 L [id number] 10:14:00 Test Item Value Reference Range Interpretation Comments HEMATOCRIT (test code = HCT/ABG) 26 % 33.0-45.0 L POC LACTIC [id number] 10:14:00 Test Item Value Reference Range Interpretation Comments POC LACTIC ACID (test code = 2.6 mmol/l 0.9-1.7 H POCLAC) [id number] 10:01:00 Test Item Value Reference Range Interpretation Comments ACT-ISTAT (test code 949 SEC 74-137 H Perform ed by certified = ACTI) 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 [facility] POC ARTERIAL BLOOD [id number] 09:43:00 Test Item Value Reference Range Interpretation Comments POC ARTERIAL BLOOD GAS PH (test 7.265 7.35-7.45 LL code = POCPHA) POC ARTERIAL BLOOD GAS PCO2 (test 58.4 mmHg 35.0-45 HH code = IINTAA7G) POC TCO2 ARTERIAL (test code = 28.3 POCTCO2) POC ARTERIAL BLOOD GAS PO2 (test 300.0 mmHg 80-100.0 HH code = ZYPNB0M) POC HCO3 ARTERIAL (test code = 26.5 MMOL/L 22.0-26.0 H MYRQFM2F) POC BASE EXCESS (test code = -1.4 MMOL/L -4.0-4.0 N POCBEA) POC O2 SATURATION (test code = 99.9 % 90-100 N POCO2S) BASIC METABOLIC [id number] 09:43:00 Test Item Value Reference Range Interpretation [...] = POCGLU) 196 MG/DL 70-110 H HEMOGLOBIN [id number] 09:43:00 Test Item Value Reference Range Interpretation Comments HEMOGLOBIN ABG (test code = 11.9 G/DL 11.0-15.0 N HGB/ABG) [id number] 09:43:00 Test Item Value Reference Range Interpretation Comments HEMATOCRIT (test code = HCT/ABG) 35 % 33.0-45.0 N POC LACTIC [id number] 09:43:00 Test Item Value Reference Range Interpretation Comments POC LACTIC ACID (test code = 2.7 mmol/l 0.9-1.7 H POCLAC) [id number] 07:27:00 Test Item Value Reference Range Interpretation Comments ACT-ISTAT (test code 137 SEC 74-137 N Perform ed by certified = ACTI) 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 [facility] POC ARTERIAL BLOOD [id number] 07:18:00 Test Item Value Reference Range Interpretation Comments POC ARTERIAL BLOOD GAS PH (test 7.295 7.35-7.45 LL code = POCPHA) POC ARTERIAL BLOOD GAS PCO2 (test 46.9 mmHg 35.0-45 H code = YOCSGT6R) POC TCO2 ARTERIAL (test code = 24.3 POCTCO2) POC ARTERIAL BLOOD GAS PO2 (test 607.2 mmHg 80-100.0 HH code = TSKHU7X) POC HCO3 ARTERIAL (test code = 22.8 MMOL/L 22.0-26.0 N ZUTDDL4V) POC BASE EXCESS (test code = -3.9 MMOL/L -4.0-4.0 N POCBEA) POC O2 SATURATION (test code = 100.0 % 90-100 N POCO2S) BASIC METABOLIC [id number] 07:18:00 Test Item Value Reference Range Interpretation [...] = POCGLU) 315 MG/DL 70-110 H HEMOGLOBIN [id number] 07:18:00 Test Item Value Reference Range Interpretation Comments HEMOGLOBIN ABG (test code = 13.0 G/DL 11.0-15.0 N HGB/ABG) [id number] 07:18:00 Test Item Value Reference Range Interpretation Comments HEMATOCRIT (test code = HCT/ABG) 38 % 33.0-45.0 N POC LACTIC [id number] 07:18:00 Test Item Value Reference Range Interpretation Comments POC LACTIC ACID (test code = 1.8 mmol/l 0.9-1.7 H POCLAC) [id number] 06:42:00 Test Item Value Reference Range Interpretation Comments ALBUMIN (test code = ALB) 3.40 g/dL 3.4-5.0 N [id number] 06:42:00 Test Item Value Reference Range Interpretation Comments PHOSPHOROUS (test code = PHOS) 3.8 MG/DL 2.5-4.9 N [id number] 06:42:00 Test Item Value Reference Range Interpretation Comments MAGNESIUM (test code = MAG) 1.78 mg/dL 1.80-2.40 L PROTHROMBIN [id number] 06:32:00 Test Item Value Reference Range Interpretation [...] (to prevent recurrent infar ct). THROMBOPLASTIN TIME [id number] 06:32:00 Test Item Value Reference Range Interpretation Comments THROMBOPLASTIN TIME 30.8 Seconds 25.0-39.5 N Therape utic Range: PARTIAL (test code = 50.4 - 88.3 Seconds PTT) Effective 07/09/2018 BASIC METABOLIC [id number] 03:56:00 Test Item Value Reference Range Interpretation [...] 10.0 mg/dL 8.0-10.5 N CA) CBC W/AUTO [id number] 03:38:00 Test Item Value Reference Range Interpretation [...] NO = MDIFF) - XR CHEST 1 [id number] 00:00:00 [facility] : 1955 Sex: F FAX: Reva Murrell MD [phone] [place]: St: ADM FAX: Evelin Aden [phone] Name: KALA TURPIN [facility] : 1955 Age/S: 67/F [address] [place] [address] Unit #: [id number] Loc: G.[address] [place] [address] Phys: Kassie Kim HOSPITAL NURSE Acct: [id number] Dis Date: Status: ADM IN PHONE #: [phone] Exam Date: 06/16/2022 1513 FAX #: [phone] Reason: Cardiac Surgery Post Op EXAMS: CPT CODE: [id number] XR CHEST 1 V 24780 PROCEDURE INFORMATION: Exam: XR Chest Exam date and time: 06/16/2022 1:57 PM Age: 67 years old Clinical indication: Screening exam; Other screening; Additional info: Cardiac surgery post op TECHNIQUE: Imaging protocol: Radiologic exam of the chest. Views: 1 view. COMPARISON: CT CHEST W/O CONTRAST 06/15/2022 8:13 AM FINDINGS: Tubes, catheters and devices: The ET tube terminates 3.7 cm above the leora. Right IJ central line terminates in the SVC. Left chest tube is noted. Lungs: Low lung volumes with possible mild vascular congestion. Mild atelectasis in the left upper-mid lung.Pleural spaces: No pleural effusion. No pneumothorax. Heart/Mediastinum: No cardiomegaly. Bones/joints: Median sternotomy wires. IMPRESSION: 1. Satisfactory position of lines and tubes. 2. Low lung volumes with possible mild vascular congestion. Mild atelectasis in the left upper-mid lung. at 1605 Reported and signed by: Fabian Larry M.D. 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 [facility] [id number] 08:11:00 Test Item Value Reference Range Interpretation Comments HGBA1C% (test code = HGBA1C%) 8.3 %A1C 4.8-6.0 H B-TYPE NATRIURETIC [id number] 07:52:00 Test Item Value Reference Range Interpretation Comments B-TYPE NATRIURETIC PEPTIDE (test 58.0 PG/ML 0-100 N code = BNP) COMPREHENSIVE METABOLIC [id number] 07:35:00 Test Item Value Reference Range Interpretation [...] the recommended for lela for GFRby the N at[facility] on for Adults.The GFR will [...] 20-125 N TOTAL (test code = ALKP) [id number] 07:35:00 Test Item Value Reference Range Interpretation Comments MAGNESIUM (test code = MAG) 1.82 mg/dL 1.80-2.40 N CBC W/AUTO [id number] 07:33:00 Test Item Value Reference Range Interpretation [...] REQUIRED (test code NO = MDIFF) PROTHROMBIN [id number] 06:46:00 Test Item Value Reference Range Interpretation [...] Infarction (to prevent recurrent infar ct). 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 [facility] - DUP EXTRACRANIAL [id number] 00:00:00 [facility] [facility] : 1955 Sex: F Name:[facility]A [facility]PIN [facility] : 1955 Age/S: 67 / F [address] [place] [address] Bl Unit #: [id number] Loc: [place] [address] Phys: Kassie Aden HOSPITAL NURSE Acct: [id number] Dis Date: Status: ADM IN PHONE #: [phone] Exam Date: 06/15/2022914 FAX #: [phone] Reason: PRE CABG EVAL EXAMS: CPTCODE: [id number] DUP EXTRACRANIAL TRE 95031 PROCEDURE INFORMATION: Exam: US Duplex Bilateral Extracranial Arteries, Carotid Arteries Exam date and time: 06/15/2022 8:41 AM Age: 67 years old Clinical indication: Screening exam; Additional info: Pre cabg eval TECHNIQUE: Imaging protocol: Real-time Duplex ultrasound scan of the bilateral carotid and vertebral arteries combining young scale, color Doppler and spectral waveform analysis. Bilateral exam. Exam focused on the carotid arteries. COMPARISON: CT CHEST W/O CONTRAST 06/15/2022 8:13 AM FINDINGS: Right [...] left proximal internal carotid arterial stenosis. REFERENCES: SRU CRITERIA. The degree of internal carotid artery stenosis is based on criteria defined by the Society of Radiologists in Ultrasound (SRU). Normal is no stenosis. Mild is less than 50% stenosis. Moderate is 50-69% stenosis. Severe is greater than 69% stenosis to near occlusion. Near occlusion is a markedly narrowed lumen. Total occlusion is no detectable patent lumen. at 1258 Reported and signed by: Aubrey Aguilar M.D. PAGE 1 Signed Report (CONTINUED) Name: KALA TURPIN : 1955 Age/S: 67 / F [address] [place] [address] Unit #: [id number] Loc: SAUMYA Sharma [address] Phys: Kassie Aden HOSPITAL NURSE Acct: [id number] Dis Date: Status: ADM IN PHONE #: [phone] Exam Date: 06/15/2022914 FAX #: [phone] Reason: PRE CABG EVAL EXAMS: CPT CODE: [id number] DUP EXTRACRANIAL TRE 86401 (Continued) CC: Kassie Aden NP Technologist: DHIRAJ Camargo)() Trnokb Date/Time: 06/15/2022 (1257) [email or web address] OrigPrint D/T: S: 06/15/2022 (1257) Probe: PAGE 2 Signed Report- DUP VEIN [id number] 00:00:00 [facility] : 1955 Sex: F Name:KALA TURPIN : 1955 Age/S: 67 / F [address] [place] [address] Unit #: [id number] Loc: [place] [address] Phys: Kassie Aden HOSPITAL NURSE Acct: [id number] Dis Date: Status: ADM IN PHONE #: [phone] Exam Date: 06/15/2022 0916 FAX #: [phone] Reason: PRE CABG EVAL EXAMS: CPT CODE: [id number] DUP VEIN TRE 84208 PROCEDURE INFORMATION: Exam: US Duplex Lower Extremity Veins; Veinmapping Exam date and time: 06/15/2022 8:52 AM Age: 67 years old Clinical indication: Screening exam; Pre op cabg; Additional info: Pre cabg eval TECHNIQUE: Imaging protocol: Real-time duplex ultrasound of the extremities with 2-D young scale, color Doppler flow and spectral waveform analysis includingresponses to compression and other maneuvers (when performed) with image documentation. Complete exam focused on the bilateral lower extremity veins for vein mapping. COMPARISON: No relevant prior studies available. FINDINGS: Right superficial veins: Normal Doppler waveforms. Normal compressibility. Greater saphenous vein is patent. Right greater saphenous vein- upper thigh: 4.2 mm Right greater saphenous vein-mid thigh: 4.9 mm Right greater saphenous vein-lower thigh: 4.4 mm Right greater saphenous vein-upper le.9 mm Right greater saphenous vein-mid le.7 mm Right greater saphenous vein-lower le.7 mm Left superficial veins: Normal Doppler [...] and signed by: Saira Rodriguez M.D. CC: Kassie Aden NP Technologist: Soha Butts RDMS(Leela)(ANGELIQUE) Trnscb Date/Time: 06/15/2022 (1331) [email or web address] Orig Print D/T: S: 06/15/2022 1333) Probe: PAGE 1 Signed Report- CT CHEST W/O [id number] 00:00:00 [facility] : 1955 Sex: F Name:KALA TURPIN [facility] [place] : 1955 Age/S: 67 / F [address] [place] [address] Unit #: [id number] Loc: [place] [address] Phys: Kassie Aden HOSPITAL NURSE Acct: [id number] Dis Date: Status: ADM IN PHONE #: [phone] Exam Date: 06/15/2022 0824 FAX #: [phone] Reason: PRE CABG EVAL EXAMS: CPT CODE: [id number] CT CHEST W/O CONTRAST 34757 PROCEDURE INFORMATION: Exam: CT Chest Without Contrast;Diagnostic Exam date and time: 06/15/2022 8:13 AM [...] received 0 known CTs and 0 known cardiac nuclear medicine studies in the 12 months prior to the current study. COMPARISON: No relevant prior studies available. FINDINGS: Thyroid: No focal lesions or enlargement to the extent visualized. Trachea: No tracheomalacia, stenosis, stricture, or filling defects. Bronchial tree: Patent. Lungs: Linear shadowing is seen in the anterior recess of the right upper lobe consistent with scarring versussubsegmental atelectasis. Pleural spaces: Unremarkable. No pneumothorax. No pleural effusion. Heart:Unremarkable. No cardiomegaly. No pericardial effusion. Coronary arteries: Coronary artery calcifications are present involving both the right and left coronary arteries and its branches. Esophagus: Nodilatation. No air fluid levels. No thickening. Lymph nodes: An anterior pericardial lymph node is present and measures 11 mm. Vasculature: Unremarkable. No aortic aneurysm. Liver: No abnormality of vis ualized liver. Bones/joints: Mild disc space narrowing is demonstrated in the mid and lower dorsal spine consistent with degenerative disc disease. Soft tissues: Unremarkable. Other findings: No abnormality of visualized upper abdomen. IMPRESSION: 1. No acute abnormality in the chest. Scarring versus subsegmental atelectasis in the anterior recess of the right upper lobe. PAGE 1 Signed Report (CONTINUED) Name: KALA TURPIN [facility] : 1955 Age/S: 67 / F [address] [place] [address] Unit #: [id number] Loc: [place] [address] Phys: Kassie Aden HOSPITAL NURSE Acct: [id number] Dis Date: Status: ADM IN PHONE #: [phone] Exam Date: 06/15/2022823 FAX #: [phone] Reason: PRE CABG EVAL EXAMS: CPT CODE: [id number] CT CHEST W/O CONTRAST 25281 (Continued) 2. Nonspecific anterior pericardial lymph node. at 1339 Reported and signed by: Smith Alan M.D. 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 PMH of HTN, CVA, CAD, CABG, afib with recent head injury and hematoma formation at site with purulence. S/p I\\T\\D with surgery.. COMPARISON: MRI brain 10/07/2022, CT head 10/07/19. TECHNIQUE: Multiplanar, mult isequence MRI of the brain with and without contrast. IV contrast: Refer to development technologist documenta tion FINDINGS: There is hyperintense T2/FLA IR signal abnormality involving the subcortical white matter in the parietal and occipital lobes bilaterally. This remains stable in extent and distribution compared to prior exam. Tiny focus of suscept ibility artifact/small hemorrhage in the left occipital lobe. There are foci of hyperinten se signal on DWI without ADC correlate involving the medial left parietal lobe and the lateral aspect of the right frontal lobe. These signal changes are stable compared to prior exam. No intracranial mass or mass effect. There are mild chronic microvascular ischemic changes of the white matter. Remote lacunar infarct in the left periventricular white matter. There is mild loss with mild enlargement of the lateral ventricles and accentuation of the cortical sulci and bifrontal extra-axial spaces. The intracranial arterial and venous str uctures demonstrate normal flow voids. Unroofed or ulcerated wound in the right parietal scalp. The subjacent calvarium maintains normal T1 signal without pathologic enhancement. There is extensive soft tissue edema throughout the right robbie eto-occipital scalp in the right side of the nec k. The visualized paranasal sinuses are clear. Left mastoid effusion. IMPRESSION: 1. Unroofed or ulcerated les ion in the right parietal scalp without evidence of osseous extension in the subjacent calvarium. 2. 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 3. Stable tiny areas of ischemia, PRES versus em bolic infarcts. 2022-10-07 [facility] 22:25:00-00:00 EXAMINATION: MRI brain without contrast Center DATE: 10/07/2022 INDICATION: Syncope. FINDINGS: Noncontrast MRI images the brain are compared to CT study dated 10/06/2022 Diffusion-weighted images de monstrate a few scattered punctate areas of restriction in the left superior parietal lobule and in the far lateral margin of the right precentral gyrus. There is vasogenic edema in the juxtacortical regions of both occipital lobes and in the parietal convexities bilaterally as well as in a few areas surrounding left paramedian sulcus of the frontal lobe s. Minimal changes may be present in the right c erebellar white matter. Susceptibility weighted imag es demonstrate a small focus of parenchymal hemorrhage in the left occipital lobe associated with edema. There are T2 signal changes in the left centrum semiovale of the frontal lobe extending into the left basal ganglia most consistent with chronic small vessel ischemia, and there are similar changes in the central michael. IMPRESSION: There is vasogenic edema in the occipital lobes, parietal convexities, and to a lesser extent over the frontal convexities characteristic of posterior reversible edema syndrome. This is also evident on the comparison CT. There is some minimal hemorrhage associated with changes in the left occipital lobe. There are punctate diffusion abnormalities in the left parietal convexity corresponding to some T2 signal changes described above, but there is also punctate change in the right lateral parietal lobe th at does not correspond to an y vasogenic edema. Coexistent embolic ischemic changes should be considered. 2022-10-06 EXAM: CT CHEST WITH CONTRAST [facility] 13:00:20-00:00 EXAM: CT ABDOMEN AND PELVIS WITH CONTRAST [place] DATE: 10/06/2022 13:00 INDICATION: - fall COMPARISON: Not available. TECHNIQUE: Volumetric CT of the chest, abdomen and pelvis is acquired following intravenous administration of contrast. Axial, coronal and sagittal images are provided. IV contrast: Refer to MAR/technologist documenta tion Oral contrast: None. DLP: Refer to CT protocol form [place] SECTION: ER FINDINGS: Kiln Repairer: Noncontributory. Lines and tubes: None. Lower Neck: Supraclavicular soft tissues are wit hin normal limits. Thoracic Aorta and Mediastin um: No mediastinal hematoma or thoracic aortic injury. Normal heart and pericardium. Lungs, Pleura, Diaphragm: No pulmonary contusions. The lungs are clear. No pleural effusion or pneumothorax. No diaphragmatic injury. Liver and biliary tree: No injury. Gallbladder: Unremarkable Pancreas: No injury. Spleen: No injury. Adrenals: No injury. Kidneys and ureters: No injury. Bladder: No injury. Reproductive organs: No injury. Gastrointestinal tract: No injury. Peritoneum and retroperitoneum: No fluid collect ions or free air. Lymph nodes: Normal. Vasculature: No vascular injury. Spine/ Bones: No acute abnor mality of the spine. No other bony injury. Diffuse decreased bone density. Midline sternotomy wires. Soft tissues: Subcutaneous c ontusion involving the left anterior lower abdominal wall. Subcutaneous 1 x 0.8 cm hematoma involving the left gluteal region subcutaneous soft tissue. IMPRESSION: 1. Subcutaneous contusion ov er the left anterior lower abdominal wall and subcentimeter hematoma over the left gluteal region subcutaneous soft tissues. 2. No solid organ injury in the chest abdomen an d pelvis. 3. No fracture. 2022-10-06 EXAM: CTA BRAIN [facility] 13:00:20-00:00 EXAM: CTA NECK Center EXAM: CTV BRAIN DATE: 10/06/2022 INDICATION: - R occipital hypodensity, AMS. COMPARISON: None. TECHNIQUE: Rapid acquisition spiral CT images of the brain and neck were obtained between the aortic arch and the cranial vertex during intravenous infusion of iodinated contrast for the purposes of CT angiography. 3-D CT angiogra phic images are created using MIP technique at the acquisition workstation. The source images are also presented for interpretation. VizShey was used in the care of this patient. IV contrast: Refer to MAR/cytology technologist docume ntation DLP: Refer to CT protocol form FINDINGS: NECK CTA: Aortic arch: The great vesse ls originate from the aortic arch in the standard configuration. No origin stenosis is identified. Common carotid arteries: Normal. Internal carotid arteries: * Right: Intimal thickening and calcifications are seen at the carotid bulb extending into the proximal cervical ICA causing approximately 60% diameter stenosis by NASCET criteria. * Left: There is mild athero sclerosis with areas of calcification at the carotid bifurcation, and stenosis of less than 50% by NASCET criteria. Vertebral arteries: The left vertebral artery is dominant. No opacification defects are seen within bilateral cervical vertebral arteries. Hypoplastic right V4 segment is seen as anatomic variant. Small calcification is seen withi n the left V4 segment, causing less than 50% stenosis. Other: The soft tissues of t he neck and other incidental structures are normal. BRAIN CTA: Arteries: Hypoplastic left A CA A1 segment is observed as anatomic variant. Bilateral posterior communicating arteries are absent as anatomic variants. Short narrowing of the left STEEL FLOOR PAN PLACING SUPERVISOR anterior P2 segment is identified resulting in moderate stenosis. Short segment narrowing at the junction of the left STEEL FLOOR PAN PLACING SUPERVISOR P2-P3 segments is identified resulting in mild stenosis. Small ossifications are seen within bilate ral cavernous and clinoid IC As resulting in moderate stenosis. Remaining of the intracranial arteries demonstrate preserved opacification with standard branching pattern. Veins: The deep cerebral veins and major venous sinuses are normal. Brain parenchyma: Detailed d escription of brain parenchymal findings is provided in a separate head CT report without contrast. IMPRESSION: 1. No evidence of large vess el occlusion, aneurysms or arteriovenous malformations. 2. Calcified atheromatosis w ithin the right common carotid artery and proximal cervical ICA resulting in approximately 60% stenosis by NASCET criteria. 3. Short segment narrowing r esulting in moderate stenosis within the left STEEL FLOOR PAN PLACING SUPERVISOR anterior P2 segment and junction of the left STEEL FLOOR PAN PLACING SUPERVISOR P2- P3 segments. 4. 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 5. Calcified atheromatosis w ithin bilateral carotid siphons and left V4 segment resulting in mild to moderate stenosis. (All qualitative and quantit ative assessments of carotid bifurcation and proximal internal carotid artery stenosis are made referencing the distal internal carotid artery {NASCET criteria}.) 2022-10-06 EXAM: CT CERVICAL SPINE WITHOUT CONTRAST [facility] 09:34:00-00:00 DATE: 10/06/2022 9:34 Center INDICATION: - S/P fall COMPARISON: Not available. TECHNIQUE: Volumetric CT of the cervical spine is acquired without contrast. Axial, coronal and sagittal images are provided. IV contrast: None. DLP: Refer to CT protocol form [place] SECTION: ER FINDINGS: The spine is imaged from the skull base to the l evel of T2. Kiln Repairer: Noncontributory. Bones: No acute fracture or malalignment is identified. Degenerative grade 1 anterolisthesis of C4 over C5 and C5 over C6 vertebrae. Multilevel degenerative changes of the cervical spine more pronounced at C4-C5 and C5-C6 facet and intervertebral ty nts. Soft tissues: No soft tissue abnormality is iden tified. IMPRESSION: No acute abnormality. 2022-10-06 EXAM: CT BRAIN WITHOUT CONTRAST [facility] 09:34:00-00:00 DATE: 10/06/2022 Center INDICATION: - traumatic SAH. COMPARISON: CT dated October 06, 2022 at 03:30 hour s TECHNIQUE: Axial CT images o f the brain were obtained. Sagittal and coronal reformats. IV contrast: None DLP: Refer to CT protocol form FINDINGS: Decreased attenuation of the bi-occipital white matter. There is small area increase d attenuation along the cortex of the right occipital lobe (see sagittal series series 901, image 14 and coronal series 900, image 37) . No other areas concerning for hemorrhage are reta ntified. Global parenchymal volume loss with prominence o f the extra-axial spaces. The skull base, calvarium, and included facial b ones are unremarkable. Left mastoid effusion Partially imaged soft tissue lesion overlying the right parietal scalp (series 100, image 32). IMPRESSION: 1. There is small area of in creased density along the cortex of the right occipital lobe which may represent subarachnoid hemorrhage. 2. Areas of hypoattenuation the right greater than left occipital lobes are nonspecific with differential including contusion, ischemic events, edema, PRES, or hypoglycemia. 3. Partially imaged subcutan eous cutaneous lesion overlying the right parietal scalp. Correlate for traumatic injury. 2022-10-06 EXAM: XR CHEST 1 VIEW [facility] 08:55:22-00:00 DATE: 10/06/2022 8:55 Center INDICATION: - fall COMPARISON: None. TECHNIQUE: AP chest. Number of images: 1. FINDINGS: Lines, tubes and hardware: None. Lungs and pleura: The lungs are clear. The costophrenic sulci are sharp without effusion. Heart and mediastinum: The h eart size is normal. The mediastinal contours are normal. Bones and soft tissues: No acute abnormality. Mi dline sternotomy wires noted. IMPRESSION: 1. No acute abnormality. 2022-08-04 [facility] 14:01:00-00:00 [facility] ([facility]) DT Operative Note REPORT#:[id number] REPORT STATUS: Signed DATE:08/04/22 TIME: 1401 PATIENT: KALA TURPIN UNIT #: [id number] ROOM/BED: [address] : [birth year] AGE: 67 SEX: F [...] MD on 07/24 05/18 at 1404 RPT #:[id number] END OF REPORT 2022-07-17 [facility] 17:55:00-00:00 [facility] ([facility]) Hospitalist Discharge Summary REPORT#:[id number] REPORT STATUS: Signed DATE:07/17/22 TIME: 1754 PATIENT: KALA TURPIN UNIT #: [id number] ROOM/BED: [place] [address] : [birth year] AGE: 67 SEX: F ATTEND: Teresa Cheng MD ADM AUTHOR: Monique Cheng MD * ALL edits or amendments must be made on the el [employer]/computer document * General Information Problem List/A P: [...] 1702 B/P Mean 79.9 07/17 1702 Temp 98.1 07/17 1702 Pulse 62 07/17 1702 Resp 17 07/17 1702 O2 Delivery Room air 07/16 2324 24 [...] Extremities: edema, moves all Musculoskeletal: normal inspection Neuro/HEALTH CARE AIDE: alert, oriented X 3, CNII-XII intact Skin: [...] % (Auto) (14.0 - 32.0 %) 26.6 [place] % (Auto) (4.8 - 9.0 %) 8.5 Eos % (Auto) (0.3 - 3.7 %) 4.2 H Baso % (Auto) (0.0 - 2.0 %) 0.5 Neut # (Auto) (2.0 - 7.6 x10 3/uL) 3.87 Lymph # (Auto) (1.0 - 3.8 x10 3/uL) 1.72 [place] # (Auto) (0.1 - 0.8 x10 3/uL) [...] spent on counseling/coordination of care: yes at 2047 RPT #:[id number] END OF REPORT 2022-07-17 [facility] 17:30:00-00:00 [facility] ([facility]) Endocrinology Progress Note REPORT#:[id number] REPORT STATUS: Signed DATE:07/17/22 TIME: 1730 PATIENT: KALA TURPIN UNIT #: [id number] ROOM/BED: 66-1 : 57 AGE: 67 SEX: F ATTEND: Teresa Cheng MD ADM AUTHOR: Jurgen Wolf MD * ALL edits or amendments must be made on the el ectronic/computer document * Subjective Patient reports: no complaints Objective General VS: Last Documented: Result Date Time Pulse Ox 96 07/17 1701 B/P 111/64 07/17 1701 B/P Mean 79.9 07/17 1701 Temp 36.7 07/17 170 Pulse 62 07/17 1702 Resp 17 07/17 170 O2 Delivery Room air 07/16 2500 PATIENT WEIGHT: Weight (lb): Weight (oz): Weight [...] % (Auto) (14.0 - 32.0 %) 26.6 [place] % (Auto) (4.8 - 9.0 %) 8.5 Eos % (Auto) (0.3 - 3.7 %) 4.2 H Baso % (Auto) (0.0 - 2.0 %) 0.5 Neut # (Auto) (2.0 - 7.6 x10 3/uL) 3.87 Lymph # (Auto) (1.0 - 3.8 x10 3/uL) 1.72 [place] # (Auto) (0.1 - 0.8 x10 3/uL) [...] Jurgen Wolf MD on at 1732 RPT #:[id number] END OF REPORT 2022-07-17 [facility] 13:25:00-00:00 [facility] Cardiothoracic Surgery Prog REPORT#:[id number] REPORT STATUS: Signed DATE:07/17/22 TIME: 1325 PATIENT: KALA TURPIN UNIT #: [id number] ROOM/BED: [id number] : 57 AGE: 67 SEX: F ATTEND: Jorge Cheng MD ADM AUTHOR: Paris Bear [facility] * ALL edits or amendments must be made on the el ectronic/computer document * Subjective Chief complaint: S/p CABG [...] 17 07/17 1225 O2 Delivery Room air 07/16 2324 24 [...] non-tender, no distention Extremities: edema, moves all Neuro/HEALTH CARE AIDE: alert, oriented X 3, normal speech, n [...] bilateral lower ext remity edema. Cardiology consulted corporate legal manager consulted continue wound VAC at [place] e 07/15 Remains in stable condition Home [...] [facility]. Plan to see the patient in CV clinic in 3/4 week s. Okay to DC patient home when home health and wou nd VAC has been arranged. Consultants: cardiology at 1327 at 0934 RPT #:[id number] END OF REPORT 2022-07-17 [facility] 11:18:00-00:00 [facility] Pharmacy Prog.Note-Vancomycin REPORT#:[id number] REPORT STATUS: Signed DATE:07/17/22 TIME: 1118 PATIENT: KALA TURPIN UNIT #: [id number] ROOM/BED: [place] [address] : 57 AGE: 67 SEX: F ATTEND: Teresa Cheng MD ADM AUTHOR: Tameka Sterling [facility] * ALL edits or amendments must be made on the [employer]/computer document * Vancomycin Vancomycin Medication Therapy Goal: trough 10-15 mcg/mL Indication for treatment: CABG Site Infection VS and I/O: Vital Signs Date Temp Pulse Resp B/P B/P Mean Pulse Ox FiO 2 07/14-07/17 97.5-98.2 52-61 15-20 98-156/41-80 0.0-102.1 92-96 72 hours ending at 0700 07/17 0700 04/23 1900 07/16 0707/15 1900 07/14 0700 1900 Intake 360 500 780.00 Total Output Total Balance 360 500 780.00 Intake, IV 200.00 Intake, 360 500 580 Oral Number 4 4 4 Voids 72 Hour I O Total 07/17 0700 07/16 0700 07/15 0700 Intake Total 360 500 [...] x10 3/uL) 6.5 8.0 6.6 Microbiology: 07/16 06 NASAL: MRSA DNA Surveillance Screen - COMP [...] 1.5gm IV q24h * Draw trough 07/17 @8757 at 1121 RPT #:[id number] END OF REPORT 2022-07-17 [facility] 10:45:00-00:00 [facility] ([facility]) Cardiology Progress Note REPORT#:[id number] REPORT STATUS: Signed DATE:07/17/22 TIME: 1045 PATIENT: KALA TURPIN UNIT #: [id number] ROOM/BED: [place] [address] : 57 AGE: 67 SEX: F ATTEND: Teresa Cheng MD ADM AUTHOR: Ursula Perkins NEPHROLOGY SOCIAL WORKER * ALL edits or amendments must be made on the [employer]/[facility] document * Subjective Patient reports: No: complaints. [...] LE assessment: edema (trace) Musculoskeletal: normal inspection Neuro/HEALTH CARE AIDE: alert, oriented X 3, normal speech Wound/incision: [...] % (Auto) (14.0 - 32.0 %) 26.6 [place] % (Auto) (4.8 - 9.0 %) 8.5 Eos % (Auto) (0.3 - 3.7 %) 4.2 H Baso % (Auto) (0.0 - 2.0 %) 0.5 Neut # (Auto) (2.0 - 7.6 x10 3/uL) 3.87 Lymph # (Auto) (1.0 - 3.8 x10 3/uL) 1.72 [place] # (Auto) (0.1 - 0.8 x10 3/uL) [...] 0 Results: labs reviewed, vital signs reviewed, lorena personally rev'd Telemetry Interpretation: sinus bradycardia Diagnosis, Assessment Plan Plan discussed with: patient Free Text DxA P Notes Free Text DxA P Notes: 67-year-old female with medi dylan history of CAD, MT, CABG with ALAA 05/27/22, post -op afib [...] Julius Washington MD on at 1111 RPT #:[id number] END OF REPORT 2022-07-17 [facility] 08:51:00-00:00 [facility] ([facility]) Hospitalist Progress Note REPORT#:[id number] REPORT STATUS: Signed DATE:07/17/22 TIME: 08 PATIENT: KALA TURPIN UNIT #: [id number] ROOM/BED: [place] [place] [address] : 57 AGE: 67 SEX: F ATTEND: Teresa Cheng MD ADM AUTHOR: Monique Cheng MD * ALL edits or amendments must be made on the el [employer]/computer document * Subjective Chief complaint: patient doing well, no new complaints. Review of Systems All systems rev neg: except as noted Objective General VS/I O: Vital Signs: Date Time Temp Pulse Resp B/P B/P Pulse O2 O2 F low FiO2 Mean Ox Delivery Rate 07/17 0759 98.1 61 17 148/79 102.1 94 07/17 0523 98.1 56 15 131/68 89.0 94 07/16 2324 97.9 57 16 129/60 82.8 92 Room air 07/16 2043 98.1 57 15 145/72 96.2 93 [...] Tartrate (LOPRESSOR) 12.5 MG Q12HR P O Paroxetine HCl (PAXIL) 20 MG DAILY PO [...] Extremities: edema, moves all Musculoskeletal: normal inspection Neuro/HEALTH CARE AIDE: alert, oriented X 3, CNII-XII intact Skin: [...] % (Auto) (14.0 - 32.0 %) 26.6 [place] % (Auto) (4.8 - 9.0 %) 8.5 Eos % (Auto) (0.3 - 3.7 %) 4.2 H Baso % (Auto) (0.0 - 2.0 %) 0.5 Neut # (Auto) (2.0 - 7.6 x10 3/uL) 3.87 Lymph # (Auto) (1.0 - 3.8 x10 3/uL) 1.72 [place] # (Auto) (0.1 - 0.8 x10 3/uL) [...] ID for home abx recs. at 0856 RPT #:[id number] END OF REPORT 2022-07-17 [facility] 08:02:00-00:00 [facility] ([facility]) Infectious Dis. Progress Note REPORT#:[id number] REPORT STATUS: Signed DATE:07/17/22 TIME: 801 PATIENT: KALA TURPIN UNIT #: [id number] ROOM/BED: [place] [address] : 57 AGE: 67 SEX: F ATTEND: Teresa Cheng MD ADM AUTHOR: Monica Spear MD * ALL edits or amendments must be made on the el [employer]/computer document * Subjective HPI: Mr. Kala Turpin is a 67 yea r old lady, with history of CAD status post CABG x4 on June 16, 2022. She was seen in clinic last w qawalangin and was found to have sternal wound [...] B/P 148/79 07/17 0759 B/P Mean 102.1 07/179 Temp 36.7 07/17 0759 Pulse 61 07/17 [...] no distress Abdomen: no distention, no guarding Neuro/HEALTH CARE AIDE: alert, oriented X 3 Skin: erythema, sternal [...] Vancomycin day #3 Consultants: cardiology at 2354 [facility] #:[id number] END OF REPORT 2022-07-16 [id number] [facility] 16:12:00-00:[address] [place] [id number] PATIENT NAME: KALA TURPIN ADMIT DATE: 07/12/22 ACCOUNT NO: [id number] ROOM NO: [facility] AGE: 67 REPORT TYPE: CONSULTATION REPORT SEX: [...] 16:12:02 Date Transcribed: 07/16/2022 16:46:02 PATIENT NAME: KALA TURPIN 03 /KIKO Receipt ID: [id number] Authenticated by Jeanine Wolf MD On 07:10:08 PM Electronically Signed by Jurgen Wolf MD on at 0710 PATIENT NAME: KALA TURPIN 603 2022-07-16 [facility] 11:48:00-00:00 [facility] ([facility]) Infectious Dis. Progress Note REPORT#:[id number] REPORT STATUS: Signed DATE:07/16/22 TIME: 1148 PATIENT: KALA TURPIN UNIT #: [id number] ROOM/BED: [place] [address] : 57 AGE: 67 SEX: F ATTEND: Teresa Cheng MD ADM AUTHOR: Monica Spear MD * ALL edits or amendments must be made on the [employer]/computer document * Subjective HPI: Mr. Kala Turpin is a 67 yea r old lady, with history of CAD status post CABG x4 on June 16, 2022. She was seen in clinic last w qawalangin and was found to have sternal wound [...] Documented: Result Date Time Pulse Ox 93 0423 1026 B/P 117/65 07/16 1026 B/P Mean [...] no distress Abdomen: no distention, no guarding Neuro/HEALTH CARE AIDE: alert, oriented X 3 Skin: erythema, sternal [...] Protein (<10.0 mg/L) 18.0 H Laboratory Tests 07/16 0450 Hematology WBC [...] % (Auto) (14.0 - 32.0 %) 30.0 [place] % (Auto) (4.8 - 9.0 %) 7.8 Eos % (Auto) (0.3 - 3.7 %) 5.2 H Baso % (Auto) (0.0 - 2.0 %) 0.4 Neut # (Auto) (2.0 - 7.6 x10 3/uL) 4.49 Lymph # (Auto) (1.0 - 3.8 x10 3/uL) 2.39 [place] # (Auto) (0.1 - 0.8 x10 3/uL) [...] day #2 Consultants: cardiology at 2310 RPT #:[id number] END OF REPORT 2022-07-16 [facility] 11:08:00-00:00 [facility] ([facility]) Pharmacy Prog.Note-Vancomycin REPORT#:[id number] REPORT STATUS: Signed DATE:07/16/22 TIME: 1108 PATIENT: KALA TURPIN UNIT #: [id number] ROOM/BED: [place] [address] : 57 AGE: 67 SEX: F ATTEND: Teresa Cheng MD ADM AUTHOR: Tameka Sterling [facility] * ALL edits or amendments must be made on the [employer]/computer document * Vancomycin Vancomycin Medication Therapy Goal: trough 10-15 mcg/mL Indication for treatment: CABG Site Infection VS and I/O: Vital Signs Date Temp Pulse Resp B/P B/P Mean Pulse Ox FiO2 07/13-07/16 97.5-98.4 49-61 15-20 98-159/41-80 0.0-104.0 92-96 72 hours ending at 0700 07/16 0707/15 1900 07/15 0707/14 1900 07/13 0700 1900 Intake 500 780.00 [...] x10 3/uL) 8.0 6.6 6.6 Microbiology: 07/16 0600 NASAL: MRSA DNA Surveillance [...] Draw trough 07/17 @1730 at 1109 RPT #:[id number] END OF REPORT 2022-07-16 [facility] 09:13:00-00:00 [facility] Cardiothoracic Surgery Prog REPORT#:[id number] REPORT STATUS: Signed DATE:07/16/22 TIME: 912 PATIENT: KALA TURPIN UNIT #: [id number] ROOM[facility]BED: [address] : 57 AGE: 67 SEX: F ATTEND: Teresa Cheng MD ADM AUTHOR: Kassie Aden * ALL edits or amendments must be made on the el [employer]/computer document * Subjective Chief complaint: S/p CABG [...] 743 Temp 97.5 07/17 743 Pulse 60 07/17 743 Resp 20 07/17 743 24 hour I [...] non-tender, no distention Extremities: edema, moves all Neuro/HEALTH CARE AIDE: alert, oriented X 3, normal speech, n [...] 07/16 07/16 07/16 07/15 07/15 0745 0450 4152 [id number] 5333 Chemistry Sodium (134 - 147 mEq/L) 141 [...] % (Auto) (14.0 - 32.0 %) 30.0 [place] % (Auto) (4.8 - 9.0 %) 7.8 Eos % (Auto) (0.3 - 3.7 %) 5.2 H Baso % (Auto) (0.0 - 2.0 %) 0.4 Neut # (Auto) (2.0 - 7.6 x10 3/uL) 4.49 Lymph # (Auto) (1.0 - 3.8 x10 3/uL) 2.39 [place] # (Auto) (0.1 - 0.8 x10 3/uL) [...] bilateral lower ext remity edema. Cardiology consulted corporate legal manager consulted continue wound VAC at [facility] e 07/15 Remains in stable condition Home [...] Consultants: cardiology at 0917 at 0933 RPT #:[id number] END OF REPORT 2022-07-16 [facility] 09:06:00-00:00 [facility] ([facility] Hospitalist Progress Note REPORT#:[id number] REPORT STATUS: Signed DATE:07/16/22 TIME: 905 PATIENT: KALA TURPIN UNIT #: [id number] ROOM/BED: [place] [address] : 59 AGE: 67 SEX: F ATTEND: Teresa Cheng MD ADM AUTHOR: Myron Jackson MD * ALL edits or amendments must be made on the el [employer]/computer document * Subjective Chief complaint: no cp [...] Extremities: edema, moves all Musculoskeletal: normal inspection Neuro/HEALTH CARE AIDE: alert, oriented X 3, CNII-XII intact Skin: sternal draining wound, surgical excision, some bleeding Psychiatry: normal affect, normal judgment/insig ht, normal mood Results Radiology data: Laboratory Tests 07/16/22 0450: [Embedded Image Not Available] 07/15/22 0500: [Embedded Image Not Available] Current Medications Sig/William Start time Last Medication Dose Route Stop Time Status Admin Amiodarone HCl 200 MG DAILY 07/15 899 AC 07/15 PO 08/14 0859 0845 Furosemide 40 MG BID 9A 5P 07/15 899 AC 07/15 PO 08/13 1659 1736 Potassium Chloride 40 MEQ DAILY 07/15 899 AC PO 08/14 0859 0844 Dextrose/Water 125 [...] BEDTIME 07/13 2100 AC 07/15 PO 08/12 Vancomycin HCl 1,500 MG Q24H 07/13 1800 AC 07/15 Sodium Chloride 250 ML IV 07/18 175 203 Insulin Human Lispro 15 UNIT AC 07/13 1630 AC SUBQ 08/12 1629 1736 Aspirin 81 MG DAILY 07/13 0900 AC 07/15 PO 08/12 0859 0842 Cholecalciferol 1,000 INTL.UNITS DAILY 07/13 090 0 CKD 07/15 PO 08/12 0859 0844 Clopidogrel 75 MG DAILY 07/13 0900 AC 07/15 Bisulfate PO 08/12 0859 1236 Ferrous Sulfate 325 MG DAILY 07/13 0900 AC 06/25 2 PO 08/12 0859 0843 Gabapentin 300 MG TID 07/13 0900 AC 07/15 PO 08/12 0859 2138 Metoprolol Tartrate 12.5 MG Q12HR 07/13 0900 [...] BID PRN PRN 07/12 2244 AC PO 08/11 2244 Enoxaparin Sodium 40 MG Q24H 07/125 AC 07/12 SUBQ 08/11 2244 2325 Hydralazine HCl 10 MG Q6H PRN PRN 07/12 224 AC IV 08/11 2244 Hydrocodone Bitart/ 1 TAB Q6H PRN PRN 07/12 2244 AC 07/14 Acetaminophen PO 07/17 Lactulose 20 GM Q6H PRN PRN 07/12 2244 AC PO 08/12 2243 Ondansetron HCl 4 MG Q4H PRN PRN 07/12 2244 AC IV 08/12 2243 Potassium Chloride 40 MEQ DAILY PRN PRN 07/12 21 45 AC PO 08/12 2243 Laboratory Tests: 07/16 07/16 07/16 07/15 0745 0450 0450 2115 Chemistry Sodium (134 - 147 mEq/L) [...] % (Auto) (14.0 - 32.0 %) 30.0 [place] % (Auto) (4.8 - 9.0 %) 7.8 Eos % (Auto) (0.3 - 3.7 %) 5.2 H Baso % (Auto) (0.0 - 2.0 %) 0.4 Neut # (Auto) (2.0 - 7.6 x10 3/uL) 4.49 Lymph # (Auto) (1.0 - 3.8 x10 3/uL) 2.39 [place] # (Auto) (0.1 - 0.8 x10 3/uL) [...] (0.0 - 0.1 x10 3/uL) 0. 00 07/15 07/15 1535 1028 Chemistry POC Glucose (70 - 110 [...] vanc for now. Electronically Signed by Myron Jackson MD on 06/25 06/15 at 0909 RPT #:[id number] END OF REPORT 2022-07-16 [facility] 06:43:00-00:00 [facility] ([facility]) Cardiology Progress Note REPORT#:[id number] REPORT STATUS: Signed DATE:07/16/22 TIME: 06 PATIENT: KALA TURPIN UNIT #: [id number] ROOM/BED: [place] [address] : 57 AGE: 67 SEX: F ATTEND: Teresa Cheng MD ADM AUTHOR: Amara Waldrop MD * ALL edits or amendments must be made on the [employer]/computer document * Subjective Chief complaint: No change HPI: 67-year-old female with medi dylan history of CAD, MT, CABG with ALAA 05/27/22, post -op afib [...] LE assessment: edema (2+) Musculoskeletal: normal inspection Neuro/HEALTH CARE AIDE: alert, oriented X 3, normal speech Wound/incision: [...] Text DxA P Notes: 67-year-old female with [facility] history of CAD, MT, CABG with ALAA 05/27/22, post -op afib [...] Amara Waldrop MD on at 0644 RPT #:[id number] END OF REPORT 2022-07-15 [facility] 18:31:00-00:00 [facility] ([facility]) Infect Disease Consult Note REPORT#:[id number] REPORT STATUS: Signed DATE:07/15/22 TIME: 1830 PATIENT: KALA TURPIN UNIT #: [id number] ROOM/BED: [place] [address] : 59 AGE: 67 SEX: F ATTEND: Teresa Cheng MD ADM AUTHOR: Luana Chow MD * ALL edits or amendments must be made on the [employer]/computer document * History of Present Illness Requesting Clinician: Myron Jackson MD Reason for consult: Sternal Wound HPI: Mr. Kala Turpin is a 67 yea r old lady, with history of CAD status post CABG x4 on June 16, 2022. She was seen in clinic last w qawalangin and was found to have sternal wound [...] sease, Diabetes mellitus, Hypertension, Ischemic stroke, Prior MT. Denies: Congestive heart failure, Kidney disease/stones. Additional [...] AMIODARONE (PACERONE) 200 MG PO DAILY 60 Strength: 200 MG TAB 1326 FUROSEMIDE (LASIX) [...] 3 07/12/22 Strength: 40 MG TAB 1101 2123 METOPROLOL TARTRATE 12.5 MG PO Q12HR 30 30 04/0 05/1807/12/22 (LOPRESSOR) 1102123 Strength: 25 MG TAB ASPIRIN 81 MG PO DAILY 30 06/25/22 07/12/22 Strength: 81 MG TAB.CHEW 1102 2124 CYANOCOBALAMIN 500 MCG PO DAILY 30 06/25/22 (VITAMIN B-12) 1102125 Strength: 500 MCG TAB Current Hospital Medications: Ahfs Category Unknown Sig/William Start time Last Medication Dose Route Stop Time Status Admin Melatonin 6 MG BEDTIME 07/13 2099 AC 07/14 (Melatonin) PO 08/12 Anti-Infective Agents Sig/William Start time Last Medication Dose Route Stop Time Status Admin Vancomycin HCl 1,500 MG Q24H 07/13 1800 AC 06/25 1 (Vancomycin 1,500 mg IV 07/18 175 175 Inj (B2)) Sodium Chloride 250 ML (SODIUM CHLORIDE 0.9%) Miscellaneous 1 EACH ASDIR 07/12 234 CKD Information IV 08/11 2344 (VANCOMYCIN PHARMACY TO DOSE) Piperacillin Sod/ 3.375 [...] Sodium 40 MG Q24H 07/12 2244 r 07/12 (lovENOX) SUBQ 08/11 224 2325 Cardiovascular Drugs Sig/William Start time Last Medication Dose Route Stop Time Status Admin Amiodarone HCl 200 MG DAILY 07/15 0900 AC 07/15 (CORDARONE) PO 08/14 0859 0845 Atorvastatin Calcium 40 MG 2100 07/13 2099 AC 0 07/14 (LIPITOR) PO 08/12 Metoprolol Tartrate 12.5 MG Q12HR 07/13 0900 AC 07/15 (LOPRESSOR) PO 08/12 0859 0843 Hydralazine HCl 10 MG Q6H PRN PRN 07/12 2245 A C (APRESOLINE) IV 08/11 224 Central Nervous System Agents Sig/William Start time Last Medication Dose Route Stop Time Status Admin Aspirin 81 MG DAILY 07/13 0900 AC 07/15 (ASPIRIN) PO 08/12 0859 0842 [...] PRN 07/12 2245 AC (LACTULOSE) PO 08/11 224 Potassium Chloride 40 MEQ DAILY PRN PRN 07/12 2 245 AC (POTASSIUM CHLORIDE PO 08/11 2244 20MEQ TAB.ER) Gastrointestinal Drugs Sig/William Start time Last Medication Dose Route Stop Time Status Admin Docusate Sodium 100 MG BID PRN PRN 07/12 2245 A C (COLACE) PO 08/11 2244 Ondansetron HCl 4 MG Q4H PRN PRN 07/12 2245 AC (ZOFRAN) IV 08/11 2244 Hormones And Synthetic Substit Sig/Wililam Start time Last Medication Dose Route Stop Time Status Admin Glucagon 1 MG ASDIR PRN 07/14 1400 AC (GLUCAGON) IM 08/13 1359 Insulin Glargine 30 UNIT BEDTIME 07/13 2100 AC 07/14 (Semglee) SUBQ 08/12 205 205 Insulin Human Lispro 15 UNIT AC 07/13 [...] Pulse Ox FiO 2 07/14-07/15 97.5-98.2 54-61 15-19 98-155/41-80 63.1-101.5 92-95 Last Documented: Result Date [...] no distress Abdomen: no distention, no guarding Neuro/HEALTH CARE AIDE: alert, oriented X 3 Skin: erythema, sternal [...] (Auto) (14.0 - 32.0 %) 32.8 H [place] % (Auto) (4.8 - 9.0 %) 8.1 Eos % (Auto) (0.3 - 3.7 %) 6.4 H Baso % (Auto) (0.0 - 2.0 %) 0.6 Neut # (Auto) (2.0 - 7.6 x10 3/uL) 3.41 Lymph # (Auto) (1.0 - 3.8 x10 3/uL) 2.15 [place] # (Auto) (0.1 - 0.8 x10 3/uL) [...] 0.1 x10 3/uL) 0.0 0 Radiology data: CT: 1. Open midline sternotomy [...] continue t o follow. at 2221 RPT #:[id number] END OF REPORT 2022-07-15 [facility] 17:09:00-00:00 [facility] ([facility]) Clinical Note REPORT#:[id number] REPORT STATUS: Signed DATE:07/15/22 TIME: 1709 PATIENT: KALA TURPIN UNIT #: [id number] ROOM/BED: [place] [address] : 59 AGE: 67 SEX: F ATTEND: Teresa Cheng MD ADM AUTHOR: Monica Spear MD * ALL edits or amendments must be made on the [employer]/SIRS-Lab document * Clinical Note Note: Patient reviewed. Antibiotics areappropriate at this point Labs ordered full consult note to follow in a.m. at 1710 RPT #:[id number] END OF REPORT 2022-07-15 [facility] 13:18:00-00:[address] [facility] ([facility] Hospitalist Progress Note REPORT#:[id number] REPORT STATUS: Signed DATE:07/15/22 TIME: 1318 PATIENT: KALA TURPIN UNIT #: [id number] ROOM/BED: [address] : 57 AGE: 67 SEX: F ATTEND: Teresa Cheng MD ADM AUTHOR: Myron Jackson MD * ALL edits or amendments must be made on the [employer]/SIRS-Lab document * Subjective Chief complaint: wants to [...] Extremities: edema, moves all Musculoskeletal: normal inspection Neuro/HEALTH CARE AIDE: alert, oriented X 3, CNII-XII intact Skin: [...] 0859 0845 Furosemide 40 MG BID 9A 07/15 0900 AC 07/15 PO 08/13 1659 [...] AC 07/13 1630 AC SUBQ 08/12 1629 1236 Amiodarone HCl 200 MG BID 07/13 0900 DC 07/14 PO 08/12 0859 0840 Aspirin 81 MG DAILY 07/13 09 AC 07/15 PO 08/12 0859 0842 Cholecalciferol 1,000 INTL.UNITS DAILY 07/13 090 0 CKD 07/15 PO 08/12 0859 0844 Clopidogrel 75 MG DAILY 07/13 0900 r 07/15 Bisulfate PO 08/12 0859 1236 Ferrous Sulfate 325 MG DAILY 07/13 09 AC 07/15 PO 08/12 0859 0843 Gabapentin 300 MG TID 07/13 899 AC 07/15 PO 08/12 0859 0842 Metoprolol Tartrate 12.5 MG Q12HR 07/13 09 AC 07/15 PO 08/12 0859 0843 Paroxetine HCl 20 MG DAILY 07/13 899 AC 07/15 PO 08/12 0859 0843 Miscellaneous 1 EACH ASDIR 07/12 2345 CKD Information IV 08/11 2344 Piperacillin Sod/ 3.375 GM Q8H 07/12 2300 AC Tazobactam Sod IV 07/179 0625 Sodium Chloride 100 ML Acetaminophen 650 MG Q4H PRN PRN 07/12 2245 AC PO 08/11 2244 Docusate Sodium 100 MG BID PRN PRN 07/12 2245 AC PO 08/11 2244 Enoxaparin Sodium 40 MG Q24H 07/12 2245 DA 07/12 SUBQ 08/11 2244 2325 Hydralazine HCl 10 MG Q6H PRN PRN 07/12 2245 AC IV 08/11 2244 Hydrocodone Bitart/ 1 TAB Q6H PRN PRN 07/12 2245 AC 07/14 Acetaminophen PO 07/17 2244 2302 Lactulose 20 GM Q6H PRN PRN 07/12 2245 AC PO 08/11 2244 Ondansetron HCl 4 MG Q4H PRN PRN 07/125 AC IV 08/11 2244 Potassium Chloride 40 MEQ DAILY PRN PRN 07/12 2 245 AC PO 08/11 224 Laboratory Tests: 07/15 07/15 07/15 07/15 07/14 1028 0716 0500 0500 2029 Chemistry Sodium (134 - 147 mEq/L) 144 [...] (Auto) (14.0 - 32.0 %) 32.8 H [place] % (Auto) (4.8 - 9.0 %) 8.1 Eos % (Auto) (0.3 - 3.7 %) 6.4 H Baso % (Auto) (0.0 - 2.0 %) 0.6 Neut # (Auto) (2.0 - 7.6 x10 3/uL) 3.41 Lymph # (Auto) (1.0 - 3.8 x10 3/uL) 2.15 [place] # (Auto) (0.1 - 0.8 x10 3/uL) [...] MD on 06/25 05/18 at 1325 RPT #:[id number] END OF REPORT 2022-07-15 [facility] 11:21:00-00:00 [facility] ([facility]) Pharmacy Prog.Note-Vancomycin REPORT#:[id number] REPORT STATUS: Signed DATE:07/15/22 TIME: 1121 PATIENT: KALA TURPIN UNIT #: [id number] ROOM/BED: [place] [address] : 59 AGE: 67 SEX: F ATTEND: Teresa Cheng MD ADM AUTHOR: Tameka Sterling [facility] * ALL edits or amendments must be made on the [employer]/SIRS-Lab document * Vancomycin Vancomycin Medication Therapy Goal: trough 10-15 mcg/mL Indication for treatment: CABG Site Infection VS and I/O: Vital Signs Date Temp Pulse Resp B/P B/P Mean Pulse Ox FiO2 07/12-07/15 97.5-98.4 49-61 15-19 108-188/41-80 63.1-113.3 92-96 72 hours ending at 0700 07/15 0700 07/14 1900 07/14 0700 07/13 1900 07/12 0700 1900 Intake 780.00 740.00 Total Output Total Balance 780.00 740.00 Intake, IV 200.00 200.00 Intake, 580 540 Oral Number 0 0 Bowel Movements Number 4 4 2 Voids Patient 98.182 kg Weight Weight Stated/Re ported Measuremen t Method 72 Hour I O Total 07/15 0700 07/14 0700 07/13 0700 Intake Total 780.00 740.00 Output Total Balance 780.00 740.00 Labs: Laboratory Tests: 07/14 1715 Toxicology Vancomycin Trough (10.0 - 20.0 mcg/mL) 10.7 Laboratory Test : 07/15 07/14 07/13 07/12 0500 0600 0444 1704 Chemistry BUN (7 - 18 mg/dL) 12 18 19 H Creatinine (0.6 - 1.3 [...] Draw trough 07/18 @1730 at 1132 RPT #:[id number] END OF REPORT 2022-07-15 [facility] 09:56:00-00:00 [facility] Cardiothoracic Surgery Prog REPORT#:[id number] REPORT STATUS: Signed DATE:07/15/22 TIME: 955 PATIENT: KALA TURPIN UNIT #: [id number] ROOM/BED: [place] [address] : 59 AGE: 67 SEX: F ATTEND: Teresa Cheng MD ADM AUTHOR: Kassie Aden * ALL edits or amendments must be made on the el [employer]computer document * Subjective Chief complaint: S/p CABG [...] Mean Pulse Ox FiO2 07/14-07/15 97.5-98.1 53-61 15-19 108-155/41-80 63.1-101.5 92-95 Last Documented: Result Date Time Pulse Ox 94 07/15 714 B/P 128/67 07/15 0715 B/P Mean 87.6 07/15 0715 O2 Delivery Room air 07/15 714 Temp 97.5 07/15 0715 Pulse 61 07/15 0715 Resp 19 07/15 0715 24 hour I O ending at 0700: [...] non-tender, no distention Extremities: edema, moves all Neuro/HEALTH CARE AIDE: alert, oriented X 3, normal speech, n [...] (LASIX 40 mg/4 mL INJECTION) 60 MG O NCE ONE IV (DC) Potassium Chloride (POTASSIUM CHLORIDE [...] (Auto) (14.0 - 32.0 %) 32.8 H [place] % (Auto) (4.8 - 9.0 %) 8.1 Eos % (Auto) (0.3 - 3.7 %) 6.4 H Baso % (Auto) (0.0 - 2.0 %) 0.6 Neut # (Auto) (2.0 - 7.6 x10 3/uL) 3.41 Lymph # (Auto) (1.0 - 3.8 x10 3/uL) 2.15 [place] # (Auto) (0.1 - 0.8 x10 3/uL) [...] bilateral lower ext remity edema. Cardiology consulted corporate legal manager consulted continue wound VAC at [facility] 07/15 Remains in stable condition Home wound vac pending to be released Afebrile, WBCs NL. On broad-spectrum antibiotics by primary team Consultants: cardiology at 1005 at 0933 RPT #:[id number] END OF REPORT 2022-07-15 [facility] 06:41:00-00:00 [facility] ([facility]) Cardiology Progress Note REPORT#:[id number] REPORT STATUS: Signed DATE:07/15/22 TIME: 06 PATIENT: KALA TURPIN UNIT #: [id number] ROOM/BED: 66-1 : 57 AGE: 67 SEX: F ATTEND: Teresa Cheng MD ADM AUTHOR: Amara Waldrop MD * ALL edits or amendments must be made on the [employer]/computer document * Subjective Chief complaint: Sternal wound drainage and lower extremity edema HPI: 67-year-old female with medi dylan history of CAD, MT, CABG with ALAA 05/27/22, post -op afib [...] LE assessment: edema (2+) Musculoskeletal: normal inspection Neuro/HEALTH CARE AIDE: alert, oriented X 3, normal speech Wound/incision: [...] Text DxA P Notes: 67-year-old female with [facility] history of CAD, MT, CABG with ALAA 05/27/22, post -op afib [...] Amara Waldrop MD on at 0643 RPT #:[id number] END OF REPORT 2022-07-14 [facility] 12:21:00-00:00 [facility] ([facility]) Pharmacy Prog.Note-Vancomycin REPORT#:[id number] REPORT STATUS: Signed DATE:07/14/22 TIME: 1221 PATIENT: KALA TURPIN UNIT #: [id number] ROOM[address]BED: [address] : 59 AGE: 67 SEX: F ATTEND: Teresa Cheng MD ADM AUTHOR: Tameka Sterling [facility] * ALL edits or amendments must be made on the el [employer]/computer document * See Addendum Vancomycin Vancomycin Medication [...] Method 72 Hour I O Total 07/14 0707/13 0700 07/12 07 Intake Total 740.00 Output Total Balance 740.00 Labs: Laboratory Test : 07/14 07/13 07/12 0600 0444 1704 Chemistry BUN (7 - 18 mg/dL) 18 19 H Creatinine (0.6 - 1.3 mg/dL) 1.1 1.1 Hematology WBC (4.5 - 11.0 x10 3/uL) 6.6 6.7 7.5 Microbiology: 07/13 0300 CHEST: Wound Culture - RES 07/12 170 URINE: Urine Culture - RES 07/13 1703 BLOOD: Blood [...] 07/14 @1730 at 1228 Addendum 1: 07/14/22 1756 by Luca Bush [facility] Pre-steady state level is 10 .7 mcg/mL, therapeutic. Contine current regimen and re-check level as indicated. Goal 10-15 mcg/mL. Electronically Signed by Luca Bush [facility] on 07/14 at 1801 RPT #:[id number] END OF REPORT 2022-07-14 [facility] 11:27:00-00:00 [facility] ([facility]) Cardiology Consultation REPORT#:[id number] REPORT STATUS: Signed DATE:07/14/22 TIME: 1127 PATIENT: KALA TURPIN UNIT #: [id number] ROOM/BED: [place] [address] : 59 AGE: 67 SEX: F ATTEND: Teresa Cheng MD ADM AUTHOR: Ursula Perkins NEPHROLOGY SOCIAL WORKER * ALL edits or amendments must be made on the el [employer]/computer document * History of Present Illness HPI Requesting Clinician: Dr. Rogel Reason for consult: Medical optimization Chief complaint: Sternal wound drainage and lower extremity edema PCP: PCP: Natasha Morrissey MD HPI: 67-year-old female with medi dylan history of CAD, MT, CABG with ALAA 05/27/22, post -op afib [...] sease, Diabetes mellitus, Hypertension, Ischemic stroke, Prior MT. Denies: Congestive heart failure, Kidney disease/stones. 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 Review of Systems Additional notes: [...] LE assessment: edema (2+) Musculoskeletal: normal inspection Neuro/HEALTH CARE AIDE: alert, oriented X 3, normal speech Wound/incision: [...] % (Auto) (14.0 - 32.0 %) 25.0 [place] % (Auto) (4.8 - 9.0 %) 8.6 Eos % (Auto) (0.3 - 3.7 %) 7.3 H Baso % (Auto) (0.0 - 2.0 %) 0.6 Neut # (Auto) (2.0 - 7.6 x10 3/uL) 3.84 Lymph # (Auto) (1.0 - 3.8 x10 3/uL) 1.65 [place] # (Auto) (0.1 - 0.8 x10 3/uL) [...] 0 Results: labs reviewed, vital signs reviewed, [facility] personally rev'd Telemetry Interpretation: sinus rhythm Diagnosis, Assessment Plan Plan discussed with: patient, collaborating MD, consultants (CTS), nurse Free Text DxA P Notes Free Text DxA P Notes: 67-year-old female with [facility] history of CAD, MT, CABG with ALAA 05/27/22, post -op afib [...] Julius Washington MD on at 1351 RPT #:[id number] END OF REPORT 2022-07-14 [facility] 10:06:00-00:00 [facility] ([facility] Cardiothoracic Surgery Prog REPORT#:[id number] REPORT STATUS: Signed DATE:07/14/22 TIME: 1006 PATIENT: KALA TURPIN UNIT #: [id number] ROOM/BED: [place] [id number] : 57 AGE: 67 SEX: F ATTEND: Teresa Cheng MD ADM AUTHOR: Kassie Aden * ALL edits or amendments must be made on the [employer]/computer document * Subjective Chief complaint: S/p CABG [...] non-tender, no distention Extremities: edema, moves all Neuro/HEALTH CARE AIDE: alert, oriented X 3, normal speech, n [...] % (Auto) (14.0 - 32.0 %) 25.0 [place] % (Auto) (4.8 - 9.0 %) 8.6 Eos % (Auto) (0.3 - 3.7 %) 7.3 H Baso % (Auto) (0.0 - 2.0 %) 0.6 Neut # (Auto) (2.0 - 7.6 x10 3/uL) 3.84 Lymph # (Auto) (1.0 - 3.8 x10 3/uL) 1.65 [place] # (Auto) (0.1 - 0.8 x10 3/uL) [...] bilateral lower ext remity edema. Cardiology consulted corporate legal manager consulted continue wound VAC at [facility] Consultants: cardiology at 1130 at 0933 RPT #:[id number] END OF REPORT 2022-07-14 [facility] 09:29:00-00:00 [facility] Hospitalist Progress Note REPORT#:[id number] REPORT STATUS: Signed DATE:07/14/22 TIME: 928 PATIENT: KALA TURPIN UNIT #: [id number] ROOM/BED: [place] [address] : 57 AGE: 67 SEX: F ATTEND: Teresa Cheng MD ADM AUTHOR: Monique Cheng MD * ALL edits or amendments must be made on the el [employer]/computer document * Subjective Chief complaint: Chest wall infection s/p CABG HPI: Patient seen this AM, doing well, denies discomfort. no acute events overnight. Review of Systems All systems rev neg: except as noted Objective General VS/I O: Vital Signs: Date Time Temp Pulse Resp B/P B/P Pulse O2 O2 F low FiO2 Mean Ox Delivery Rate 07/14 2052 95 Room air 04/21 2034 97.7 59 18 155/75 101.5 95 [...] Extremities: edema, moves all Musculoskeletal: normal inspection Neuro/HEALTH CARE AIDE: alert, oriented X 3, CNII-XII intact Skin: sternal draining wound, surgical excision, some bleeding Psychiatry: normal affect, normal judgment/insig ht, normal mood Results Findings/Data: Laboratory Tests 07/14 07/14 07/14 07/14 202 1554 1123 0716 Chemistry POC Glucose (70 [...] % (Auto) (14.0 - 32.0 %) 25.0 [place] % (Auto) (4.8 - 9.0 %) 8.6 Eos % (Auto) (0.3 - 3.7 %) 7.3 H Baso % (Auto) (0.0 - 2.0 %) 0.6 Neut # (Auto) (2.0 - 7.6 x10 3/uL) 3.84 Lymph # (Auto) (1.0 - 3.8 x10 3/uL) 1.65 [place] # (Auto) (0.1 - 0.8 x10 3/uL) [...] (0.0 - 0.1 x10 3/uL) 0. 00 Laboratory Tests 07/14 1715 Toxicology Vancomycin Trough [...] dispo: per cards/cvt surgery at 2216 RPT #:[id number] END OF REPORT 2022-07-13 [facility] 11:48:00-00:00 [facility] ([facility]) DT Operative Note REPORT#:[id number] REPORT STATUS: Signed DATE:07/13/22 TIME: 1148 PATIENT: KALA TURPIN UNIT #: [id number] ROOM/BED: [place] [address] : 57 AGE: 67 SEX: F ATTEND: Teresa Cheng MD ADM AUTHOR: Natasha Morrissey MD * ALL edits or amendments must be made on the [employer] document * Operative Report Operative Note Note: Bedside procedure note Procedure: wound debridement Resin Mixer [address] Indication: superficial wound infection, lower [...] Morrissey MD on 06/25 at 1211 RPT #:[id number] END OF REPORT 2022-07-13 [facility] 11:36:00-00:00 [facility] Cardiothoracic Surgery Consult REPORT#:[id number] REPORT STATUS: Signed DATE:07/13/22 TIME: 1136 PATIENT: KALA TURPIN UNIT #: [id number] ROOM/BED: [place] [address] : 57 AGE: 67 SEX: F ATTEND: Teresa Cheng MD ADM AUTHOR: Kassie Aden * ALL edits or amendments must be made on the [employer] document * History of Present Illness HPI [...] Diabetes melli tus, Hypertension, Ischemic stroke, Prior MT. Denies: Congestive heart failu re, Kidney disease/stones. [...] DAILY 06/15/22 07/12/22 Strength: 20 MG TAB 0110 2124 Melatonin (MELATONIN) 10 MG SL BEDTIME 06/15/22 07/12/22 Strength: 1 MG TAB 0112124 CLOPIDOGREL (PLAVIX) 75 MG PO DAILY 06/21/22 Strength: 75 MG TAB 2044 2124 CHOLECALCIFEROL 1,000 UNITS PO DAILY 06/21/22 0 07/12/22 (VITAMIN D3) 2045 2125 (VITAMIN D3) Strength: 25 MCG (1,000 UNIT) CAP FERROUS SULFATE 325 MG PO DAILY 30 06/25/22 (FEOSOL) 1099 2123 Strength: 325 MG (65 MG IRON) TAB AMIODARONE (PACERONE) 200 MG PO BID 60 06/25/22 07/12/22 Strength: 200 MG TAB 1100 2124 ATORVASTATIN (LIPITOR) 40 MG PO 2100 30 3 07/12/22 Strength: 40 MG TAB 1101 2123 METOPROLOL TARTRATE 12.5 MG PO Q12HR 30 30 05/1807/12/22 (LOPRESSOR) 1102123 Strength: 25 MG TAB ASPIRIN 81 MG PO DAILY 30 06/25/22 07/12/22 Strength: 81 MG TAB.CHEW 1101 2123 CYANOCOBALAMIN 500 MCG PO DAILY 30 06/25/22 (VITAMIN B-12) 1105 2126 Strength: 500 MCG TAB Current Hospital Medications: Ahfs Category Unknown Sig/William Start time Last Medication Dose Route Stop Time Status Admin Melatonin 6 MG BEDTIME 07/13 2100 AC (Melatonin) PO 08/12 2058 Anti-Infective Agents Sig/William Start time Last Medication Dose Route Stop Time Status Admin Vancomycin HCl 1,500 MG Q24H 07/13 1800 AC (Vancomycin 1,500 mg IV 07/18 1759 Inj (B2)) Sodium Chloride 250 ML (SODIUM CHLORIDE 0.9%) Miscellaneous 1 EACH ASDIR 07/12 2345 CKD Information IV 08/11 234 (VANCOMYCIN PHARMACY TO DOSE) Vancomycin HCl 1,000 MG ONCE ONE 07/12 2345 DC 07/13 (VANCOMYCIN HCL) IV 07/13 0044 [...] Sulfate 325 MG DAILY 07/13 0900 AC (FERROUS SULFATE) PO 08/12 0859 0849 Enoxaparin Sodium 40 MG Q24H 07/12 2245 DA 06/24 9 (lovENOX) SUBQ 08/11 2244 2325 Cardiovascular Drugs Sig/William Start time Last Medication Dose Route Stop Time Status Admin Atorvastatin Calcium 40 MG 2100 07/13 2100 AC (LIPITOR) PO 08/12 2058 Lidocaine HCl 5 ML ONCE ONE 07/13 1100 DC (XYLOCAINE MPF 1% LOCAL 07/13 1101 5ML) Amiodarone HCl 200 MG BID 07/13 0900 AC 07/13 (CORDARONE) PO 08/12 0859 0847 Metoprolol Tartrate 12.5 MG Q12HR 07/13 0900 AC 07/13 (LOPRESSOR) PO 08/12 0859 0848 Hydralazine HCl 10 MG Q6H PRN PRN 07/12 2245 AC (APRESOLINE) IV 08/11 224 Central Nervous System [...] PRN 07/12 2245 AC (TYLENOL) PO 08/11 224 Hydrocodone Bitart/ 1 TAB Q6H PRN PRN 07/12 22 45 AC 07/12 Acetaminophen PO 07/17 2244 2325 [...] (POTASSIUM CHLORIDE PO 08/11 2244 20MEQ TAB.ER) Sodium Chloride 1,000 ML .Q20H 07/12 2245 DC (SODIUM CHLORIDE IV 08/11 224 2327 0.9%) Sodium Chloride 1,000 ML X1ED STA 07/12 1702 DC 07/12 (SODIUM CHLORIDE IV 07/12 1801 1745 0.9%) Gastrointestinal Drugs Sig/William Start time Last Medication Dose Route Stop Time Status Admin Docusate Sodium 100 MG BID PRN PRN 07/12 2245 A C (COLACE) PO 08/12 2243 Ondansetron HCl 4 MG Q4H PRN PRN 07/12 2244 AC (ZOFRAN) IV 08/12 2243 Hormones And Synthetic Substit Sig/William Start time Last Medication Dose Route Stop Time Status Admin Insulin Glargine 20 UNIT BEDTIME 07/13 2100 AC (Semglee) SUBQ 08/12 205 Insulin Human Lispro 10 UNIT AC 07/13 1630 AC (HUMALOG) SUBQ 08/12 1629 Vitamins Sig/William Start time Last Medication Dose Route Stop Time Status Admin Cholecalciferol 1,000 INTL.UNITS DAILY 07/13 09 00 CKD 07/13 (VITAMIN D) PO 08/12 0859 0847 Allergies: Coded Allergies: adhesive tape (RASH 06/15/22) niacin (Mild, ANXIETY 06/15/22) zolpidem (From AMBIEN) (CONFUSION 06/15/22) 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 Free Text ROS Notes Free [...] Plan for wound VAC placement Continue antibiotics corporate legal manager consulted continue wound VAC at [facility] Patient seen and plan reviewed with Dr Juan F Morrissey at 1503 at 3184 [facility] #:[id number] END OF REPORT 2022-07-13 [facility] 09:17:00-00:00 [facility] ([facility]) Hospitalist Progress Note REPORT#:[id number] REPORT STATUS: Signed DATE:07/13/22 TIME: 916 PATIENT: KALA TURPIN UNIT #: [id number] ROOM/BED: 6617-1 : 57 AGE: 67 SEX: F ATTEND: Teresa Cheng MD ADM AUTHOR: Monique Cheng MD * ALL edits or amendments must be made on the [employer]/computer document * Subjective Chief complaint: Chest wall [...] Vancomycin HCl (Vancomycin 1,500 mg Inj (B2)) 1 ,500 MG Q24H IV Sodium Chloride (SODIUM CHLORIDE [...] Extremities: edema, moves all Musculoskeletal: normal inspection Neuro/HEALTH CARE AIDE: alert, oriented X 3, CNII-XII intact Skin: [...] 5.0 g/dL) 3.40 Laboratory Tests 07/13 07/12 0134 1704 Hematology WBC (4.5 - 11.0 x10 [...] (14.0 - 32.0 %) 35.8 H 31.7 [place] % (Auto) (4.8 - 9.0 %) 8.2 6.6 Eos % (Auto) (0.3 - 3.7 %) 5.4 H 5.2 H Baso % (Auto) (0.0 - 2.0 %) 0.4 0.5 Neut # (Auto) (2.0 - 7.6 x10 3/uL) 3.36 4.15 Lymph # (Auto) (1.0 - 3.8 x10 3/uL) 2.40 2.36 [place] # (Auto) (0.1 - 0.8 x10 3/uL) [...] x10 3/uL) 0.0 0 0.00 Laboratory Tests 07/13 1703 Urines Urine Color (YEL/STRAW) DARK YELLOW Urine Appearance (CLEAR) HAZY H Urine pH (5.0 - 7.0) 6.0 Ur Specific [place] (1.005 - 1.030) 1.025 Urine Protein (NEGATIVE) [...] 1699 Report Impression - Status: SIGNED Entered: 07/12/2022 175 IMPRESSION: Opacity at the left lung base [...] Procedure Date/time Status Change Admit/Attend Doctor 07/13 7452 Active Consultants: cardiology Code status: full code [...] dispo: per cards/cvt surgery at 1605 RPT #:[id number] END OF REPORT 2022-07-13 [facility] 05:39:00-00:00 [facility] Pharmacy Prog.Note-Vancomycin REPORT#:[id number] REPORT STATUS: Signed DATE:07/13/22 TIME: 05 PATIENT: KALA TURPIN UNIT #: [id number] ROOM/BED: [place] [address] : 57 AGE: 67 SEX: F ATTEND: Robert Ochoa MD ADM AUTHOR: Hermes Arnett [facility] * ALL edits or amendments must be made on the [employer]/computer document * Vancomycin Vancomycin Medication Therapy Goal: [...] admin history: Lab Lab Level SCr 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 at 05 RPT #:[id number] END OF REPORT 2022-07-12 [facility] 22:50:00-00:[address] [facility] ([facility]) Hospitalist History Physical REPORT#:[id number] REPORT STATUS: Signed DATE:07/12/22 TIME: 2249 PATIENT: KALA TURPIN UNIT #: [id number] ROOM/BED: [place] [address] : 57 AGE: 67 SEX: F ATTEND: Teresa Cheng MD ADM AUTHOR: Mayito High MD * ALL edits or amendments must be made on the [employer]/computer document * History of Present Illness HPI [...] 1702 B/P Mean 79.9 07/17 1702 Temp 98.1 07/17 1702 Pulse 62 07/17 1702 Resp 17 07/17 1702 O2 Delivery Room air 07/16 2324 Patient Weight and BMI Weight (kg): 98.182 BMI: 40.9 Neck: full range of motion, no JVD Cardiovascular: normal heart sounds, regular rat e rhythm Respiratory: aerating well, clear to auscultatio n Extremities: moves all, no edema Neuro/HEALTH CARE AIDE: alert, oriented X 3 Skin: dry, no [...] Mayito High MD on at 2240 RPT #:[id number] END OF REPORT 2022-07-12 [facility] 16:59:00-00:00 [facility] ([facility]) EMERGENCY PROVIDER REPORT REPORT#:[id number] REPORT STATUS: Signed DATE:07/12/22 TIME: 1658 PATIENT: KALA TURPIN UNIT #: [id number] ROOM/BED: [place] [address] AGE: 67 SEX: F PCP PHYS: Natasha Morrissey MD SERVICE AUTHOR: Holden Montoya PAYROLL AUDITOR * ALL edits or amendments must be made on the [employer]/computer document * Holden Montoya 07/12/221658: HPI-Rash/Abscess/Cellulitis Free Text HPI Notes Free Text [...] to reported to General Initial Greet Date/Time 07/12/221653 Provider in Triage Greet Note I have [...] Diabetes melli tus, Hypertension, Ischemic stroke, Prior MT. Denies: Congestive heart failu re, Kidney disease/stones. [...] 56 07/12 1725 Resp 16 07/12 1725 Last Documented: Result Date Time Pulse Ox 95 07/12 1725 B/P 155/80 07/12 1725 B/P Mean 105 07/12 1725 Temp 36.7 07/12 1725 Pulse 56 07/12 1725 Resp 16 07/12 1725 Free Text PE Notes Free Text PE [...] Diagnostics Lab Results Interpretation Results Laboratory Tests 07/12/221703: [Embedded Image Not Available] Laboratory Tests: 07/12 07/12 170 1704 Chemistry Sodium (134 - 147 mEq/L) [...] % (Auto) (14.0 - 32.0 %) 31.7 [place] % (Auto) (4.8 - 9.0 %) 6.6 Eos % (Auto) (0.3 - 3.7 %) 5.2 H Baso % (Auto) (0.0 - 2.0 %) 0.5 Neut # (Auto) (2.0 - 7.6 x10 3/uL) 4.15 Lymph # (Auto) (1.0 - 3.8 x10 3/uL) 2.36 [place] # (Auto) (0.1 - 0.8 x10 3/uL) [...] pH (5.0 - 7.0) 6.0 Ur Specific [place] (1.005 - 1.030) 1.025 Urine Protein (NEGATIVE) [...] Pulse Ox 95 07/12 1725 B/P 155/80 / 1725 B/P Mean 105 07/12 1725 Temp 36.7 07/12 1725 Pulse 56 07/12 1725 Resp 16 07/12 1725 Last Documented: Result Date Time Pulse Ox 95 07/12 1725 B/P 155/80 / 1725 B/P Mean 105 07/12 1725 Temp [...] Prov: 06/25/22 ATORVASTATIN (LIPITOR) 40 MG PO 2099 ATORVASTATIN (LIPITOR) 40 MG PO 2100 #30 [...] p alpation Extremities: normal color, no deformities Neuro/HEALTH CARE AIDE: Alert, following commands Skin: There is induration, [...] Admin Piperacillin Sod/ 3.375 GM X1ED STA 04/19 1703 DC 07/12 Tazobactam Sod IV 07/12 1732 1745 Sodium Chloride 100 ML Vancomycin HCl 1,000 MG X1ED STA 07/12 1703 DC 07/12 Sodium Chloride 250 ML IV 07/12 180 1825 Diagnostic Agents Sig/William Start time Last Medication Dose Route Stop Time Status Admin Iopamidol 100 ML .STK-MED ONE 07/12 1924 DC IV 07/12 192 192 Electrolytic, Caloric, And Faiza Sig/William Start time Last Medication Dose Route Stop Time Status Admin Sodium Chloride 1,000 ML X1ED STA 07/12 1702 DC 07/12 IV 07/12 180 1745 Patient Discharge Departure Vital Signs/Condition Condition [...] MD o n 08/13/22 at 1639 RPT #:[id number] END OF REPORT 2022-06-25 [facility] 14:11:00-00:00 [facility] ([facility] Hospitalist Discharge Summary REPORT#:[id number] REPORT STATUS: Signed DATE:06/25/22 TIME: 1411 PATIENT: KALA TURPIN UNIT #: [id number] ROOM/BED: [place] [address] : 57 AGE: 67 SEX: F ATTEND: Reji Patel MD ADM AUTHOR: Bang Patel MD * ALL edits or amendments must be made on the [employer]computer document * General Information Date of admission: [...] 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 Patient transferred to [facility] for surgical revascularization. Surgical precedures; 1. [...] Result Date Time Pulse Ox 95 06/25 103 B/P 121/57 06/25 103 B/P Mean 0.0 06/25 1030 O2 Delivery Room air 06/25 1030 Temp 98.2 06/25 1030 Pulse 62 06/25 103 Resp 23 06/25 103 FiO2 21 06/23 204 O2 Flow Rate 0 06/21 1200 24 hour I O ending at 0700: 06/25 0706/24 1900 Intake Total 400 Output Total 500 [...] normal inspection, painless ran ge of motion Neuro/HEALTH CARE AIDE: alert, oriented X 3 Skin: dry, intact [...] (Auto) (14.0 - 32.0 %) 33.5 H [place] % (Auto) (4.8 - 9.0 %) 6.9 Eos % (Auto) (0.3 - 3.7 %) 2.7 Baso % (Auto) (0.0 - 2.0 %) 0.3 Neut # (Auto) (2.0 - 7.6 x10 3/uL) 5.17 Lymph # (Auto) (1.0 - 3.8 x10 3/uL) 3.20 [place] # (Auto) (0.1 - 0.8 x10 3/uL) [...] Status: SIGNED Entered: 06/25/2022 0834 IMPRESSION: 1. Vfen-pq-imbavmeycr enlarged cardiac silhouett e. 2. Small to moderate left pleural effusion. 3. Mhwz-ks-bqpxypor pulmonary edema versus infil trates. Impression By: [...] Discussion included: living will (yes), power of bankruptcy attorney (yes), code status ( full code) Current Medications Current medication review: I attest that the foregoing medication list in t medical record is true, accurate, and complete to the best of my knowled ge. at 1423 [facility] #:[id number] END OF REPORT 2022-06-25 [id number] [facility] 11:06:00-00:[address] [place] [id number] PATIENT NAME: KALA TURPIN ADMIT DATE: 06/15/22 ACCOUNT NO: [id number] [place]OM NO: [facility] AGE: 67 REPORT TYPE: eECHOCARDIOGRAM REPORT SEX: F ADMITTING PHYSICIAN:LOUIS, GENERIC FOR EDM ATTENDING PHYSICIAN:Bang Patel MD *[address] [place] [address] Limited Transthoracic Echocardiogram Patient: Kala Turpin Study Date: 06/24/2022 BP: 131 / 63 Location: [facility] URN: [id number] 6016 : 1955 Age: 67 Height: 61 in / 155 cm Gender: F Weight: 222 .2 lb / 101 kg BMI/BSA: 42 kg/m 2 / 2.14 m 2 *Ordering Physician: * Peggy Rogel MD *Interpreting Physician: * Julius Washington MD *Gas Meter Repair Supervisor: * Joel Varela Indications: PERICARDIAL EFFUSION. Study data: Transthoracic echocardiogram, chestere gm study. Procedure: Transthoracic echocardiography was performed. Im age quality was adequate. Limited 2D and limited spectral Dopple r. Location: Bedside. Patient status: Inpatient. Patient room number : 3343. Study status: Routine. Findings Left ventricle: [...] 1106 PATIENT NAME: KALA TURPIN 16 2022-06-25 [facility] 09:36:00-00:00 [facility] Cardiothoracic Surgery Prog REPORT#:[id number] REPORT STATUS: Signed DATE:06/25/22 TIME: 09 PATIENT: AKLA TURPIN UNIT #: [id number] ROOM/BED: [place] [address] : 57 AGE: 67 SEX: F ATTEND: Reji Patel MD ADM AUTHOR: [facility] * ALL edits or amendments must be made on the [employer]/computer document * General Post-op: day 9 Status post: 06/16/22 CABG x 4 (LIN-LAD, SVG-Elisabet, SVG-OM, SVG-PDA) ALAA LENAH (RGSV) Posterior pericardiotomy Subjective Chief complaint: Follow [...] Resp 19 06/25 726 FiO2 21 06/23 204 O2 Flow Rate 0 06/21 1200 24 hour I O ending at 0700: 06/25 0706/24 1900 Intake Total 400 Output Total 500 [...] moves all Musculoskeletal: full range of motion Neuro/HEALTH CARE AIDE: alert, oriented X 3 Skin: dry, intact [...] wit h 80-90% stenosis. Patient transferred to [facility] for surgical revasc ularization. PLAN Coronary [...] use, nebs and deep breathing NSR on cell assembly pinner, no ectopy, epicardial pa cing wires on [...] Patient family want to take her home corporate legal manager consulted for home health services Continue [...] on echo. Consultants: cardiology at 1525 RPT #:[id number] END OF REPORT 2022-06-25 [facility] 06:31:00-00:00 [facility] ([facility]) Rehab Progress Note REPORT#:[id number] REPORT STATUS: Signed DATE:06/25/22 TIME: 630 PATIENT: KALA TURPIN UNIT #: [id number] ROOM[place]BED: [facility] : 57 AGE: 67 SEX: F ATTEND: Reji Patel MD ADM AUTHOR: Kalen Castellanos * ALL edits or amendments must be made on the el [employer]/computer document * Subjective Chief complaint: rehab follow-up [...] 0411 97.7 53 14 98/65 0.0 95 04/ 0007 97.9 56 21 154/79 103.8 95 04/ 2150 Room air 04 1638 98.1 58 21 157/69 0.0 96 Room air 04 1636 57 25 157/69 99 04 1546 56 18 131/63 90 04/ 1330 54 21 126/58 83 97 04 1320 53 16 132/61 88 96 06/24 1310 53 16 126/62 89 97 04 1300 53 18 121/58 83 97 04/ 1250 53 16 125/60 87 97 04 1240 53 15 122/62 88 97 04 1230 53 16 131/56 89 98 04/ 1220 55 22 150/65 94 98 04/ 1219 55 23 159/70 101 98 04/01 1100 98.1 55 19 105/50 0.0 98 Room air 04 1059 56 23 105/50 72 97 04/ 0732 98.2 54 13 129/60 0.0 98 Room air 04/ 0731 54 13 129/60 86 96 PATIENT [...] Pantoprazole (PROTONIX) 40 MG 0600,1800 PO Ipratropium [place] (ATROVENT) 500 MCG Q2H PRN P RN [...] of Care: Yes PT charges: Gait Training 97186 Gait Cmt: Pt SEEN FOR GAIT TRG. LEARNING CENTER COORDINATOR AT BEDSIDE TO TAKE Pt TO ULTRASOUND. Pt ASSISTED TO WALK TO TOILET AND THEN THE CHAIR OUT THE DOOR. Pt DEMO ABLE TO MAINTAIN STERNAL PREC. 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 in a wh [...] by Kalen Castellanos on 0 06/25/22 at 2051 RPT #:[id number] END OF REPORT 2022-06-24 [facility] 23:48:00-00:00 [facility] ([facility] Cardiology Progress Note REPORT#:[id number] REPORT STATUS: Signed DATE:06/24/22 TIME: 2347 PATIENT: KALA TURPIN UNIT #: [id number] ROOM/BED: 3343-1 : 57 AGE: 67 SEX: F ATTEND: Reji Patel MD ADM AUTHOR: Julius Washington MD * ALL edits or amendments must be made on the el [employer]/computer document * Subjective Free Text Subj Notes [...] O2 Flow FiO2 Mean Ox Delivery Rate 06/24 1638 [...] 06/24 1240 53 15 122/62 88 97 04 1230 53 16 131/56 89 98 06/24 1220 55 22 150/65 94 98 06/24 1219 55 23 159/70 101 98 04 1100 98.1 55 19 105/50 0.0 98 Room air 06/24 1059 56 23 105/50 72 97 04/ 0732 98.2 54 13 129/60 0.0 98 Room air 06/24 0731 54 13 129/60 86 96 04 0533 97.7 55 13 134/79 97.3 96 [...] Pantoprazole (PROTONIX) 40 MG 0600,1800 PO Ipratropium [place] (ATROVENT) 500 MCG Q2H PRN P RN [...] extremity: LE assessment: edema, no calf tenderness Neuro/HEALTH CARE AIDE: alert, oriented X 3, normal speech Skin: [...] % (Auto) (14.0 - 32.0 %) 31.7 [place] % (Auto) (4.8 - 9.0 %) 6.3 Eos % (Auto) (0.3 - 3.7 %) 2.3 Baso % (Auto) (0.0 - 2.0 %) 0.3 Neut # (Auto) (2.0 - 7.6 x10 3/uL) 5.11 Lymph # (Auto) (1.0 - 3.8 x10 3/uL) 2.79 [place] # (Auto) (0.1 - 0.8 x10 3/uL) [...] female with medi dylan history of CAD, MT, prior PCI/MEG 11 years ago, hypertension, diabetes melli tus, CVA, peripheral neuropathy, Charcot's foot who presented to [facility] with chest pain. She was taken for left heart catheterization where she wa s found to have multivessel CAD with failed attempt to PCI the HOME CARE PROVIDER LAD. Patient is transferred to [facility] facility for surgical revascularization. 1. Multivessel [...] Signed by Julius Washington MD on at 2353 RPT #:[id number] END OF REPORT 2022-06-24 [facility] 13:47:00-00:00 [facility] Hospitalist Progress Note REPORT#:[id number] REPORT STATUS: Signed DATE:06/24/22 TIME: 1347 PATIENT: KALA TURPIN UNIT #: [id number] ROOM/BED: 3343-1 : 57 AGE: 67 SEX: F ATTEND: Reji Patel MD ADM AUTHOR: Bang Patel MD * ALL edits or amendments must be made on the el [employer]/computer document * Subjective Chief complaint: Having some [...] 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 Patient transferred to [facility] for surgical revascularization. Objective General VS/I [...] 13 129/60 0.0 98 Room air 06/24 0533 97.7 55 13 134/79 97.3 96 Room air 06/23 2326 98.1 60 13 151/78 102.5 100 Room air 06/23 2044 98 Room air 21 06/23 1942 98 Room air 21 06/23 [...] normal inspection, painless ran ge of motion Neuro/HEALTH CARE AIDE: alert, oriented X 3 Skin: dry, intact [...] % (Auto) (14.0 - 32.0 %) 31.7 [place] % (Auto) (4.8 - 9.0 %) 6.3 Eos % (Auto) (0.3 - 3.7 %) 2.3 Baso % (Auto) (0.0 - 2.0 %) 0.3 Neut # (Auto) (2.0 - 7.6 x10 3/uL) 5.11 Lymph # (Auto) (1.0 - 3.8 x10 3/uL) 2.79 [place] # (Auto) (0.1 - 0.8 x10 3/uL) [...] labs d/c home tomorrow. at 1349 RPT #:[id number] END OF REPORT 2022-06-24 [facility] 13:24:00-00:00 [facility] Cardiothoracic Surgery Prog REPORT#:[id number] REPORT STATUS: Signed DATE:06/24/22 TIME: 1324 PATIENT: KALA TURPIN UNIT #: [id number] ROOM/BED: [place] [address] : 59 AGE: 67 SEX: F ATTEND: Reji Patel MD ADM AUTHOR: Peggy Rogel MD * ALL edits or amendments must be made on the el [employer]/computer document * General Post-op: day 8 Status post: 06/16/22 CABG x 4 (LIN-LAD, SVG-Elisabet, SVG-OM, SVG-PDA) RUBEN SPICER (RGSV) Posterior pericardiotomy Subjective Chief complaint: Follow [...] moves all Musculoskeletal: full range of motion Neuro/HEALTH CARE AIDE: alert, oriented X 3 Skin: dry, intact [...] Pantoprazole (PROTONIX) 40 MG 0600,1800 PO Ipratropium [place] (ATROVENT) 500 MCG Q2H PRN P RN [...] % (Auto) (14.0 - 32.0 %) 31.7 [place] % (Auto) (4.8 - 9.0 %) 6.3 Eos % (Auto) (0.3 - 3.7 %) 2.3 Baso % (Auto) (0.0 - 2.0 %) 0.3 Neut # (Auto) (2.0 - 7.6 x10 3/uL) 5.11 Lymph # (Auto) (1.0 - 3.8 x10 3/uL) 2.79 [place] # (Auto) (0.1 - 0.8 x10 3/uL) [...] wit h 80-90% stenosis. Patient transferred to [facility] for surgical revasc ularization. PLAN Coronary [...] use, nebs and deep breathing NSR on cell assembly pinner, no ectopy, epicardial pa cing wires on [...] Patient family want to take her home corporate legal manager consulted for home health services Continue [...] home tomorrow with home healt h support Consultants: cardiology Plan discussed with: patient, nurse at 1230 RPT #:[id number] END OF REPORT 2022-06-24 [facility] 07:03:00-00:00 [facility] ([facility] Rehab Progress Note REPORT#:[id number] REPORT STATUS: Signed DATE:06/24/22 TIME: 07 PATIENT: KALA TURPIN UNIT #: [id number] ROOM/BED: [place] [address] : [birth year] AGE: 67 SEX: F ATTEND: Reji Patel MD ADM AUTHOR: Kalen Castellanos * ALL edits or amendments must be made on the [employer]/computer document * Subjective Chief complaint: rehab follow-up [...] 13 134/79 97.3 96 Room air 06/23 2325 98.1 60 13 151/78 102.5 100 Room air 06/24 2043 98 Room air 06/23 194 98 Room air 06/23 98.1 59 13 144/64 0.0 97 Room [...] Pantoprazole (PROTONIX) 40 MG 0600,1800 PO Ipratropium [place] (ATROVENT) 500 MCG Q2H PRN P RN [...] of Care: Yes PT charges: Gait Training 48010 Gait Cmt: WORKED ON TRANSFERS, BED MOBILITY, GA IT AND WC MOBILTIY WC MOD I 50 FT X 2 TO RECLINER AFTER GAIT If this is the patient's last treatment, this e ntry serves as the discharge summary: Y Start Time: 1500 Stop Time: 1525 Treatment Time : ( minutes) 0:25 Completed by: Torrey Lal BED MOBILITY: Yes Rolling Right/Left: Modified [place] Supine to Sit: Minimal Assistance Sit to Supine: Modified [place] TRANSFERS: Yes Bed to/from chair: Supervision or Set-up Sit to/from stand: Supervision or Set-up Physical Exam General appearance: alert, awake Psych: alert, oriented x 3 HEENT: anicteric, mucosal membranes moist Neck: supple, no JVD Respiratory: aerating well, clear bilaterally Abdomen: bowel sounds present, non-distended, so ft, non-tender Skin: dry, intact, no rash Musculoskeletal - general: Musculoskeletal - general: swelling (BLE) Neuro/HEALTH CARE AIDE: alert, oriented X 3, CNII-XII intact, normal [...] Strict decubitus precautions Advance therapies as tolerated 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 but was able to walk 10 [...] by Kalen Castellanos on 0 06/24/22 at 4624 RPT #:[id number] END OF REPORT 2022-06-23 [facility] 18:59:00-00:00 [facility] ([facility]) Hospitalist Progress Note REPORT#:[id number] REPORT STATUS: Signed DATE:06/23/22 TIME: 1858 PATIENT: KALA TURPIN UNIT #: [id number] ROOM/BED: [place] [address] : 57 AGE: 67 SEX: F ATTEND: Reji Patel MD ADM AUTHOR: Bang Patel MD * ALL edits or amendments must be made on the [employer] document * Subjective Chief complaint: doing well [...] 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 Patient transferred to [facility] for surgical revascularization. Objective General VS/I [...] air 06/22 2000 98.1 06/22 1945 63 24 hour I [...] normal inspection, painless ran ge of motion Neuro/HEALTH CARE AIDE: alert, oriented X 3, CNII-XII intact Skin: [...] (Auto) (14.0 - 32.0 %) 27.4 28.2 [place] % (Auto) (4.8 - 9.0 %) 6.7 6.2 Eos % (Auto) (0.3 - 3.7 %) 2.8 2.3 Baso % (Auto) (0.0 - 2.0 %) 0.1 0.2 Neut # (Auto) (2.0 - 7.6 x10 3/uL) 5.36 5.38 Lymph # (Auto) (1.0 - 3.8 x10 3/uL) 2.39 2.47 [place] # (Auto) (0.1 - 0.8 x10 3/uL) [...] RADIOLOGY - XR CHEST 1 V 06/23 0622 Report Impression - Status: SIGNED Entered: 06/23/2022 2211 IMPRESSION: Shadowing in the left lower hemithorax likely re presenting small left pleural effusion. The this is probably unch anged from previous. Impression By: [email or web address] - Dale Arias Treatment Prophylaxis Treatment Prophylaxis Drain(s)/tube(s): Drain(s)/tube(s): chest [...] okay with CV surgery at 1901 RPT #:[id number] END OF REPORT 2022-06-23 [facility] 12:17:00-00:00 [facility] ([facility]) Gastroenterology Progress Note REPORT#:[id number] REPORT STATUS: Signed DATE:06/23/22 TIME: 1217 PATIENT: KALA TURPIN UNIT #: [id number] ROOM/BED: [place] [address] : 57 AGE: 67 SEX: F ATTEND: Reji Patel MD ADM AUTHOR: Marivel Covington * ALL edits or amendments must be made on the [employer]/computer document * Marivel Covington 06/23/22 1217: Subjective [...] Pulse 58 06/23 1613 Resp 16 06/23 1613 FiO2 21 06/23 0834 O2 Delivery Room [...] Pantoprazole (PROTONIX) 40 MG 0600,1800 PO Ipratropium [place] (ATROVENT) 500 MCG Q2H PRN P RN [...] moves all, no edema Musculoskeletal: normal inspection Neuro/HEALTH CARE AIDE: alert, oriented X 3, normal speech Skin: dry, intact, normal color Psychiatry: normal affect, normal judgment/insig ht, normal mood Results Findings/Data: Laboratory Tests 06/23/22249: [Embedded Image Not Available] 06/22/222126: [Embedded Image Not Available] Laboratory Tests 06/23 [...] - 2.40 mg/dL) 2.10 Laboratory Tests 06/22 Coagulation INR (0.8 - 1.2) 1.3 H PTT (Griggs) (25.0 - 39.5 Seconds) 31.9 PT Patient/Control [...] (Auto) (14.0 - 32.0 %) 27.4 28.2 [place] % (Auto) (4.8 - 9.0 %) 6.7 6.2 Eos % (Auto) (0.3 - 3.7 %) 2.8 2.3 Baso % (Auto) (0.0 - 2.0 %) 0.1 0.2 Neut # (Auto) (2.0 - 7.6 x10 3/uL) 5.36 5.38 Lymph # (Auto) (1.0 - 3.8 x10 3/uL) 2.39 2.47 [place] # (Auto) (0.1 - 0.8 x10 3/uL) [...] RADIOLOGY - XR CHEST 1 V 06/23 721 Report Impression - Status: SIGNED Entered: 06/23/2022 0926 IMPRESSION: Shadowing in the left lower hemithorax likely re presenting small left pleural effusion. The this is probably unch anged from previous. Impression By: Dale Corrigan Results: labs reviewed, vital signs reviewed, x- [...] 6. Trend h/h and transfuse prn 7. 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 Patient would like to defer EGD for now and c onsider outpatient 9. Further recommendations may follow Consultants: cardiology Attestations Attestation needed: supervising physician Catrachito Shirley 06/24/22 0055: Attestations Physician Attestation Agree w/findings plan: Agree with the findings and plan as documented TASHIA Zazueta. at 1852 Electronically Signed by Catrachito Shirley MD on 04/17 at 0056 RPT #:[id number] END OF REPORT 2022-06-23 [facility] 10:25:00-00:00 [facility] Cardiothoracic Surgery Prog REPORT#:[id number] REPORT STATUS: Signed DATE:06/23/22 TIME: 1025 PATIENT: KALA TURPIN UNIT #: [id number] ROOM/BED: [place] [address] : 57 AGE: 67 SEX: F ATTEND: Reji Patel MD ADM AUTHOR: Paris Bear Physic * ALL edits or amendments must be made on the el [employer]/computer document * General Post-op: day 7 Status post: 06/16/22 CABG x 4 (LIN-LAD, SVG-Elisabet, SVG-OM, SVG-PDA) RUBEN PAREDESH (RGSV) Posterior pericardiotomy Subjective Chief complaint: Follow [...] Result Date Time Pulse Ox 97 06/23 0947 Pulse 69 06/23 0947 Resp 50 06/23 0947 B/P 149/66 06/23 0900 B/P Mean 95 06/23 0900 Temp 97.9 06/23 0730 O2 Delivery Room [...] moves all Musculoskeletal: full range of motion Neuro/HEALTH CARE AIDE: alert, oriented X 3 Skin: dry, intact [...] Pantoprazole (PROTONIX) 40 MG 0600,1800 PO Ipratropium [place] (ATROVENT) 500 MCG Q2H PRN P RN [...] (Senna Lax 8.6 MG TABLET) 17.2 MG BE DTIME PO Aspirin (ASPIRIN) 81 MG DAILY PO [...] (GLUCAGON) 1 MG ASDIR PRN IM Ipratropium [place] (ATROVENT) 500 MCG RTQ4H INH (DC) Magnesium [...] - 2.40 mg/dL) 2.10 Laboratory Tests 06/22 Coagulation INR (0.8 - 1.2) 1.3 H PTT (Griggs) (25.0 - 39.5 Seconds) 31.9 PT Patient/Control [...] (Auto) (14.0 - 32.0 %) 27.4 28.2 [place] % (Auto) (4.8 - 9.0 %) 6.7 6.2 Eos % (Auto) (0.3 - 3.7 %) 2.8 2.3 Baso % (Auto) (0.0 - 2.0 %) 0.1 0.2 Neut # (Auto) (2.0 - 7.6 x10 3/uL) 5.36 5.38 Lymph # (Auto) (1.0 - 3.8 x10 3/uL) 2.39 2.47 [place] # (Auto) (0.1 - 0.8 x10 3/uL) [...] RADIOLOGY - XR CHEST 1 V 06/23 721 Report Impression - Status: SIGNED Entered: 06/23/2022 0926 IMPRESSION: Shadowing in the left lower hemithorax [...] wit h 80-90% stenosis. Patient transferred to [facility] for surgical revasc ularization. 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 Rogel, plan of care disc ussed with multidisciplinary team Consultants: cardiology Plan discussed with: patient , admitting physician, consultants, nurse, interdisc care team at 1250 at 1230 RPT #:[id number] END OF REPORT 2022-06-23 [facility] 09:23:00-00:00 [facility] Critical Care Progress Note REPORT#:[id number] REPORT STATUS: Signed DATE:06/23/22 TIME: 922 PATIENT: KALA TURPIN UNIT #: [id number] ROOM/BED: [facility]-1 : 57 AGE: 67 SEX: F ATTEND: Antonio Patel MD ADM AUTHOR: Anna Martinez MD * ALL edits or amendments must be made on the el [employer]computer document * Subjective Chief complaint: s/p CABG [...] 18 06/23 1042 O2 Delivery Room air 06/22 2004 FiO2 21 06/22 1602 O2 Flow Rate [...] Pantoprazole (PROTONIX) 40 MG 0600,1800 PO Ipratropium [place] (ATROVENT) 500 MCG Q2H PRN P RN [...] (GLUCAGON) 1 MG ASDIR PRN IM Ipratropium [place] (ATROVENT) 500 MCG RTQ4H INH (DC) Magnesium [...] - 2.40 mg/dL) 2.10 Laboratory Tests 06/22 06/22 2127 2127 Coagulation INR (0.8 - 1.2) [...] (Auto) (14.0 - 32.0 %) 27.4 28.2 [place] % (Auto) (4.8 - 9.0 %) 6.7 6.2 Eos % (Auto) (0.3 - 3.7 %) 2.8 2.3 Baso % (Auto) (0.0 - 2.0 %) 0.1 0.2 Neut # (Auto) (2.0 - 7.6 x10 3/uL) 5.36 5.38 Lymph # (Auto) (1.0 - 3.8 x10 3/uL) 2.39 2.47 [place] # (Auto) (0.1 - 0.8 x10 3/uL) [...] RADIOLOGY - XR CHEST 1 V 06/23 0622 Report Impression - Status: SIGNED Entered: 06/23/2022 09 IMPRESSION: Shadowing in the left lower hemithorax likely re presenting small left pleural effusion. The this is probably unch anged from previous. Impression By: [email or web address] - Dale Arias Free Text Obj Notes Free Text Obj [...] CV surgery Consultants: cardiology at 1124 RPT #:[id number] END OF REPORT 2022-06-23 [facility] 08:53:00-00:00 [facility] ([facility] Cardiology Progress Note REPORT#:[id number] REPORT STATUS: Signed DATE:06/23/22 TIME: 852 PATIENT: KALA TURPIN UNIT #: [id number] ROOM/BED: [place] [address] : 57 AGE: 67 SEX: F ATTEND: Antonio Patel MD ADM AUTHOR: Julius Washington MD * ALL edits or amendments must be made on the el [employer] document * Subjective Free Text Subj Notes [...] 174/77 110 97 06/22 0900 58 21 PATIENT WEIGHT: Weight (lb): [...] Pantoprazole (PROTONIX) 40 MG 0600,1800 PO Ipratropium [place] (ATROVENT) 500 MCG Q2H PRN P RN [...] (GLUCAGON) 1 MG ASDIR PRN IM Ipratropium [place] (ATROVENT) 500 MCG RTQ4H INH (DC) Magnesium [...] CV assessment: pedal edema, regular rate and r hythm Respiratory: decreased breath sounds, no distres s Abdomen: soft, non-tender, normal bowel sounds, no distention Genitourinary: urinary catheter, urine Lower extremity: LE assessment: edema, no calf tenderness Neuro/HEALTH CARE AIDE: alert, oriented X 3, normal speech Skin: [...] (Auto) (14.0 - 32.0 %) 27.4 28.2 [place] % (Auto) (4.8 - 9.0 %) 6.7 6.2 Eos % (Auto) (0.3 - 3.7 %) 2.8 2.3 Baso % (Auto) (0.0 - 2.0 %) 0.1 0.2 Neut # (Auto) (2.0 - 7.6 x10 3/uL) 5.36 5.38 Lymph # (Auto) (1.0 - 3.8 x10 3/uL) 2.39 2.47 [place] # (Auto) (0.1 - 0.8 x10 3/uL) [...] Text DxA P Notes: 67-year-old female with [facility] history of CAD, MT, prior PCI/MEG 11 years ago, hypertension, diabetes melli tus, CVA, peripheral neuropathy, Charcot's foot who presented to [facility] with chest pain. She was taken for left heart catheterization where she wa s found to have multivessel CAD with failed attempt to PCI the HOME CARE PROVIDER LAD. Patient is transferred to [facility] facility for surgical revascularization. 1. Multivessel [...] Julius Washington MD on at 1213 RPT #:[id number] END OF REPORT 2022-06-23 [facility] 07:31:00-00:00 [facility]) Rehab Progress Note REPORT#:[id number] REPORT STATUS: Signed DATE:06/23/22 TIME: 730 PATIENT: KALA TURPIN UNIT #: [id number] ROOM/BED: [place] [address] : 57 AGE: 67 SEX: F ATTEND: Reji Patel MD ADM AUTHOR: Kalen Castellanos * ALL edits or amendments must be made on the [employer]/computer document * Subjective Chief complaint: rehab follow-up [...] Pantoprazole (PROTONIX) 40 MG 0600,1800 PO Ipratropium [place] (ATROVENT) 500 MCG Q2H PRN P RN [...] (GLUCAGON) 1 MG ASDIR PRN IM Ipratropium [place] (ATROVENT) 500 MCG RTQ4H INH (DC) Magnesium [...] Supervision or Set-up Gait Deviations: SHORT STEPS [facility] Mobility: No Document Pain/Education: No Advanced Progression: No Effects of Treatment: Tolerance increased Cardio tolerance improved Post [place] Precautions: In Chair Review Plan of Care: Yes PT charges: Gait Training 64468 Gait Cmt: Pt IN CHAIR ON ARRIVAL, SHE PERFORME D 10 EACH OF TOE TAPS, LAQ, SEATED [...] Lal BED MOBILITY: Yes Rolling Right/Left: Modified [place] Supine to Sit: Minimal Assistance Sit to Supine: Minimal Assistance Scooting in bed: Moderate Assistance TRANSFERS: Yes Bed to/from chair: Modified [place] Sit to/from stand: Modified [place] Physical Exam General appearance: alert, awake Psych: alert, oriented x 3 HEENT: anicteric, mucosal membranes moist Neck: supple, no JVD Respiratory: aerating well, clear bilaterally Abdomen: bowel sounds present, non-distended, so ft, non-tender Skin: dry, intact, no rash Musculoskeletal - general: Musculoskeletal - general: swelling (BLE) Neuro/HEALTH CARE AIDE: alert, oriented X 3, CNII-XII intact, normal [...] (Auto) (14.0 - 32.0 %) 27.4 28.2 [place] % (Auto) (4.8 - 9.0 %) 6.7 6.2 Eos % (Auto) (0.3 - 3.7 %) 2.8 2.3 Baso % (Auto) (0.0 - 2.0 %) 0.1 0.2 Neut # (Auto) (2.0 - 7.6 x10 3/uL) 5.36 5.38 Lymph # (Auto) (1.0 - 3.8 x10 3/uL) 2.39 2.47 [place] # (Auto) (0.1 - 0.8 x10 3/uL) [...] Strict decubitus precautions Advance therapies as tolerated PHP LAMP DEVELOPER patient primarily got around in a [facility] [employer] but was able to walk 10 to [...] Castellanos on 0 06/23/22 at 2131 RPT #:[id number] END OF REPORT 2022-06-22 [facility] 23:32:00-00:00 [facility] ([facility]) Rehab Progress Note REPORT#:[id number] REPORT STATUS: Signed DATE:06/22/22 TIME: 2331 PATIENT: KALA TURPIN UNIT #: [id number] ROOM/BED: [place] [address] : 57 AGE: 67 SEX: F ATTEND: Antonio Patel MD ADM AUTHOR: Leia Castellanos NP * ALL edits or amendments must be made on the [employer]/computer document * Subjective Chief complaint: rehab follow-up Pt still in CVICU -seen around 1245 S/p cardioversion now NSR denied pain and sob Pending EGD in am Objective General VS: Vital Signs: Date Time Temp Pulse Resp B/P B/P Pulse O2 O2 F low FiO2 Mean Ox Delivery Rate 06/22 2004 97 Room air 06/22 2000 98.1 06/22 1750 65 23 98 06/22 1702 58 20 144/65 94 98 06/22 1700 58 18 97 06/22 1602 97 Room air 06/22 1501 60 16 123/60 87 97 [...] 06/22 0001 60 14 134/61 88 97 PATIENT [...] Pantoprazole (PROTONIX) 40 MG 0600,1800 PO Ipratropium [place] (ATROVENT) 500 MCG Q2H PRN P RN [...] (GLUCAGON) 1 MG ASDIR PRN IM Ipratropium [place] (ATROVENT) 500 MCG RTQ4H INH (DC) Magnesium [...] - general: Musculoskeletal - general: swelling (BLE) Neuro/HEALTH CARE AIDE: alert, oriented X 3, CNII-XII intact, normal [...] % (Auto) (14.0 - 32.0 %) 28.2 [place] % (Auto) (4.8 - 9.0 %) 6.2 Eos % (Auto) (0.3 - 3.7 %) 2.3 Baso % (Auto) (0.0 - 2.0 %) 0.2 Neut # (Auto) (2.0 - 7.6 x10 3/uL) 5.38 Lymph # (Auto) (1.0 - 3.8 x10 3/uL) 2.47 [place] # (Auto) (0.1 - 0.8 x10 3/uL) [...] % (Auto) (14.0 - 32.0 %) 24.4 [place] % (Auto) (4.8 - 9.0 %) 6.7 Eos % (Auto) (0.3 - 3.7 %) 2.0 Baso % (Auto) (0.0 - 2.0 %) 0.2 Neut # (Auto) (2.0 - 7.6 x10 3/uL) 6.41 Lymph # (Auto) (1.0 - 3.8 x10 3/uL) 2.40 [place] # (Auto) (0.1 - 0.8 x10 3/uL) [...] and amiodarone drip Advance therapies as tolerated PHP LAMP DEVELOPER patient primarily got around in a eehair but was able to walk 10 to [...] Treatment plan disc ussed with patient. at 0045 RPT #:[id number] END OF REPORT 2022-06-22 [facility] 13:26:00-00:00 [facility] ([facility] Gastroenterology Progress Note REPORT#:[id number] REPORT STATUS: Signed DATE:06/22/22 TIME: 1326 PATIENT: KALA TURPIN UNIT #: [id number] ROOM/BED: [place] [address] : 57 AGE: 67 SEX: F ATTEND: Reji Patel MD ADM AUTHOR: Marivel Covington * ALL edits or amendments must be made on the [employer]/computer document * Marivel Covington 06/22/22 1326: Subjective [...] Pantoprazole (PROTONIX) 40 MG 0600,1800 PO Ipratropium [place] (ATROVENT) 500 MCG Q2H PRN P RN [...] (GLUCAGON) 1 MG ASDIR PRN IM Ipratropium [place] (ATROVENT) 500 MCG RTQ4H INH (DC) Magnesium [...] moves all, no edema Musculoskeletal: normal inspection Neuro/HEALTH CARE AIDE: alert, oriented X 3, normal speech Skin: [...] % (Auto) (14.0 - 32.0 %) 24.4 [place] % (Auto) (4.8 - 9.0 %) 6.7 Eos % (Auto) (0.3 - 3.7 %) 2.0 Baso % (Auto) (0.0 - 2.0 %) 0.2 Neut # (Auto) (2.0 - 7.6 x10 3/uL) 6.41 Lymph # (Auto) (1.0 - 3.8 x10 3/uL) 2.40 [place] # (Auto) (0.1 - 0.8 x10 3/uL) [...] RADIOLOGY - XR CHEST 1 V 06/22 4802 Report Impression - Status: SIGNED Entered: 06/22/2022 0916 IMPRESSION: 1. Unchanged left basilar airspace disease. 2. Probable trace left pleural effusion. Impression By: Ana - Pascale Crain M.D. Results: labs reviewed, vital signs [...] 6. Trend h/h and transfuse prn 7. 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 Further recommendations [...] Signed by Catrachito Shirley MD on at 205 RPT #:[id number] END OF REPORT 2022-06-22 [facility] 11:38:00-00:00 [facility] Cardiology Progress Note REPORT#:[id number] REPORT STATUS: Signed DATE:06/22/22 TIME: 1137 PATIENT: KALA TURPIN UNIT #: [id number] ROOM/BED: [place] [address] : 57 AGE: 67 SEX: F ATTEND: Reji Patel MD ADM AUTHOR: Ursula Perkins NEPHROLOGY SOCIAL WORKER * ALL edits or amendments must be made on the el [employer]/computer document * Ursula Perkins 06/22/22 1138: Subjective [...] 179/83 119 99 06/22 1999 78 21 06/21 2000 36.2 06/21 1942 98 Room air 06/21 [...] Pantoprazole (PROTONIX) 40 MG 0600,1800 PO Ipratropium [place] (ATROVENT) 500 MCG Q2H PRN P RN [...] (GLUCAGON) 1 MG ASDIR PRN IM Ipratropium [place] (ATROVENT) 500 MCG RTQ4H INH Magnesium Sulfate [...] extremity: LE assessment: edema, no calf tenderness Neuro/HEALTH CARE AIDE: alert, oriented X 3, normal speech Skin: [...] % (Auto) (14.0 - 32.0 %) 24.4 [place] % (Auto) (4.8 - 9.0 %) 6.7 Eos % (Auto) (0.3 - 3.7 %) 2.0 Baso % (Auto) (0.0 - 2.0 %) 0.2 Neut # (Auto) (2.0 - 7.6 x10 3/uL) 6.41 Lymph # (Auto) (1.0 - 3.8 x10 3/uL) 2.40 [place] # (Auto) (0.1 - 0.8 x10 3/uL) [...] left pleural effusion. Impression By: Ana - Pascale Crain M.D. Results: labs reviewed, vital signs reviewed, [facility] personally rev'd Telemetry Interpretation: sinus rhythm with transient bradycardia Diagnosis, Assessment Plan Plan discussed with: patient, nurse Free Text DxA P Notes Free Text DxA P Notes: 67-year-old female with [facility] history of CAD, MT, prior PCI/MEG 11 years ago, hypertension, diabetes melli tus, CVA, peripheral neuropathy, Charcot's foot who presented to [facility] with chest pain. She was taken for left heart catheterization where she wa s found to have multivessel CAD with failed attempt to PCI the HOME CARE PROVIDER LAD. Patient is transferred to [facility] facility for surgical revascularization. 1. Multivessel [...] Signed by Julius Washington MD on at 121 RPT #:[id number] END OF REPORT 2022-06-22 [facility] 10:45:00-00:00 [facility] ([facility]) Hospitalist Progress Note REPORT#:[id number] REPORT STATUS: Signed DATE:06/22/22 TIME: 1045 PATIENT: KALA TURPIN UNIT #: [id number] ROOM/BED: [place] [address] : 57 AGE: 67 SEX: F ATTEND: Reji Patel MD ADM AUTHOR: Bang Patel MD * ALL edits or amendments must be made on the el [employer]/computer document * Subjective Chief complaint: doing well [...] 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 Patient transferred to [facility] for surgical revascularization. Objective General VS/I [...] normal inspection, painless ran ge of motion Neuro/HEALTH CARE AIDE: alert, oriented X 3, CNII-XII intact Skin: [...] % (Auto) (14.0 - 32.0 %) 24.4 [place] % (Auto) (4.8 - 9.0 %) 6.7 Eos % (Auto) (0.3 - 3.7 %) 2.0 Baso % (Auto) (0.0 - 2.0 %) 0.2 Neut # (Auto) (2.0 - 7.6 x10 3/uL) 6.41 Lymph # (Auto) (1.0 - 3.8 x10 3/uL) 2.40 [place] # (Auto) (0.1 - 0.8 x10 3/uL) 0.66 Eos # (Auto) (0.0 - 0.2 x10 3/uL) 0.20 Baso # (Auto) (0.0 - 0.2 x10 3/uL) 0.02 Abs Immat Gran (auto) (0.00 - 0.03 x10 3/uL) 0 .13 H Add Manual Diff NO Immature Gran % (0.0 - 2.0 %) 1.3 Nucleated RBC % (0 - 0 %) 1.0 H Nucleated RBCs # (Man) (0.0 - 0.1 x10 3/uL) 0.1 0 Radiology data: Recent Impressions: RADIOLOGY - XR CHEST 1 V 06/22 526 Report Impression - Status: SIGNED Entered: 06/22/2022 0916 IMPRESSION: 1. Unchanged left basilar airspace disease. 2. Probable trace left pleural effusion. Impression By: Ana - Pascale Crain M.D. Treatment Prophylaxis Treatment Prophylaxis Drain(s)/tube(s): [...] labs d/c home soon at 1046 RPT #:[id number] END OF REPORT 2022-06-22 [facility] 10:22:00-00:00 [facility] Cardiothoracic Surgery Prog REPORT#:[id number] REPORT STATUS: Signed DATE:06/22/22 TIME: 1022 PATIENT: KALA TURPIN UNIT #: [id number] ROOM/BED: [place] [address] : 57 AGE: 67 SEX: F ATTEND: Reji Patel MD ADM AUTHOR: Paris Bear Physic * ALL edits or amendments must be made on the el [employer]/computer document * General Post-op: day 6 Status post: 06/16/22 CABG x 4 (LIN-LAD, SVG-Elisabet, SVG-OM, SVG-PDA) ALALeela EVH (RGSV) Posterior pericardiotomy Subjective Chief complaint: [...] Result Date Time Pulse Ox 96 06/22 0600 B/P 133/63 06/22 0600 B/P Mean 90 06/22 0600 Pulse 59 [...] moves all Musculoskeletal: full range of motion Neuro/HEALTH CARE AIDE: alert, oriented X 3 Skin: dry, intact [...] wit h 80-90% stenosis. Patient transferred to [facility] for surgical revasc ularization. PLAN Coronary [...] use, nebs and deep breathing NSR on cell assembly pinner, no ectopy, epicardial pa cing wires on [...] Consultants: cardiology at 1602 at 1230 RPT #:[id number] END OF REPORT 2022-06-22 [facility] 09:10:00-00:00 [facility] ([facility]) Critical Care Progress Note REPORT#:[id number] REPORT STATUS: Signed DATE:06/22/22 TIME: 909 PATIENT: KALA TURPIN UNIT #: [id number] ROOM/BED: [place] [address] : 59 AGE: 67 SEX: F ATTEND: Antonio Patel MD ADM AUTHOR: Anna Martinez MD * ALL edits or amendments must be made on the el [employer]computer document * Subjective Chief complaint: s/p CABG [...] Pantoprazole (PROTONIX) 40 MG 0600,1800 PO Ipratropium [place] (ATROVENT) 500 MCG Q2H PRN P RN [...] (GLUCAGON) 1 MG ASDIR PRN IM Ipratropium [place] (ATROVENT) 500 MCG RTQ4H INH Magnesium Sulfate [...] % (Auto) (14.0 - 32.0 %) 24.4 [place] % (Auto) (4.8 - 9.0 %) 6.7 Eos % (Auto) (0.3 - 3.7 %) 2.0 Baso % (Auto) (0.0 - 2.0 %) 0.2 Neut # (Auto) (2.0 - 7.6 x10 3/uL) 6.41 Lymph # (Auto) (1.0 - 3.8 x10 3/uL) 2.40 [place] # (Auto) (0.1 - 0.8 x10 3/uL) [...] RADIOLOGY - XR CHEST 1 V 06/22 5077 Report Impression - Status: SIGNED Entered: 06/22/2022 0916 IMPRESSION: 1. Unchanged left basilar airspace disease. 2. Probable trace left pleural effusion. Impression By: [email or web address] - Pascale Paras, M.D. Free Text Obj Notes Free Text [...] 36 minutes Consultants: cardiology at 1304 RPT #:[id number] END OF REPORT 2022-06-22 [facility] 00:00:00-00:00 [facility] ([facility] Hospitalist Progress Note REPORT#:[id number] REPORT STATUS: Signed DATE:06/22/22 TIME: 0000 PATIENT: KALA TURPIN UNIT #: [id number] ROOM/BED: [place] [address] : 59 AGE: 67 SEX: F ATTEND: Rosa Murrell MD ADM AUTHOR: Reva Murrell MD * ALL edits or amendments must be made on the el [employer]/computer document * Subjective Chief complaint: late entry [...] 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 Patient transferred to [facility] for surgical revascularization. Objective General VS/I [...] Pantoprazole (PROTONIX) 40 MG 0600,1800 PO Ipratropium [place] (ATROVENT) 500 MCG Q2H PRN P RN [...] (GLUCAGON) 1 MG ASDIR PRN IM Ipratropium [place] (ATROVENT) 500 MCG RTQ4H INH Magnesium Sulfate [...] normal inspection, painless ran ge of motion Neuro/HEALTH CARE AIDE: alert, oriented X 3, CNII-XII intact Skin: dry, intact Results Findings/Data: Laboratory Tests 06/220 2117 1154 Chemistry Sodium (134 - 147 [...] % (Auto) (14.0 - 32.0 %) 24.4 [place] % (Auto) (4.8 - 9.0 %) 6.7 Eos % (Auto) (0.3 - 3.7 %) 2.0 Baso % (Auto) (0.0 - 2.0 %) 0.2 Neut # (Auto) (2.0 - 7.6 x10 3/uL) 6.41 Lymph # (Auto) (1.0 - 3.8 x10 3/uL) 2.40 [place] # (Auto) (0.1 - 0.8 x10 3/uL) [...] 0615 Report Impression - Status: SIGNED Entered: 06/21/2022 0916 IMPRESSION: 1. Unchanged left basilar airspace disease. 2. Unchanged small left pleural effusion. No merry dence of pneumothorax. Impression By: Ana - Pascale Crain M.D. Treatment Prophylaxis Treatment Prophylaxis Drain(s)/tube(s): [...] MD on 0 06/22/22 at 0641 RPT #:[id number] END OF REPORT 2022-06-21 [facility] 19:28:00-00:00 [facility] ([facility]) Rehab Progress Note REPORT#:[id number] REPORT STATUS: Signed DATE:06/21/22 TIME: 1927 PATIENT: KALA TURPIN UNIT #: [id number] ROOM/BED: [place] [address] : 57 AGE: 67 SEX: F ATTEND: Rosa Murrell MD ADM AUTHOR: Leia Castellanos NP * ALL edits or amendments must be made on the [employer] document * Subjective Chief complaint: rehab follow-up Pt still in CVICU -seen around 9am pending cardioversion denied pain and sob increase anxiety -worried about doing EGD Objective General VS: Vital Signs: Date Time Temp Pulse Resp B/P B/P Pulse O2 O2 Flow FiO2 Mean Ox Delivery Rate 06/21 1847 [...] 11 137/59 83 99 06/21 1999 97.4 06/21 1999 88 21 119/59 80 98 06/20 1946 100 Nasal 1 cannula 06/20 1929 Nasal 1 cannula PATIENT WEIGHT: Weight (lb): [...] Pantoprazole (PROTONIX) 40 MG 0600,1800 PO Ipratropium [place] (ATROVENT) 500 MCG Q2H PRN P RN [...] (GLUCAGON) 1 MG ASDIR PRN IM Ipratropium [place] (ATROVENT) 500 MCG RTQ4H INH Magnesium Sulfate [...] - general: Musculoskeletal - general: swelling (BLE) Neuro/HEALTH CARE AIDE: alert, oriented X 3, CNII-XII intact, normal [...] % (Auto) (14.0 - 32.0 %) 27.7 [place] % (Auto) (4.8 - 9.0 %) 6.6 Eos % (Auto) (0.3 - 3.7 %) 2.4 Baso % (Auto) (0.0 - 2.0 %) 0.3 Neut # (Auto) (2.0 - 7.6 x10 3/uL) 6.19 Lymph # (Auto) (1.0 - 3.8 x10 3/uL) 2.77 [place] # (Auto) (0.1 - 0.8 x10 3/uL) [...] and amiodarone drip Advance therapies as tolerated 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 at 1931 RPT #:[id number] END OF REPORT 2022-06-21 [facility] 17:42:00-00:00 [facility] Endocrinology Progress Note REPORT#:[id number] REPORT STATUS: Signed DATE:06/21/22 TIME: 1742 PATIENT: KALA TURPIN UNIT #: [id number] ROOM/BED: [place] [address] : 57 AGE: 67 SEX: F ATTEND: Rosa Murrell MD ADM AUTHOR: Jurgen Wolf MD * ALL edits or amendments must be made on the el [employer]/computer document * Subjective Patient reports: no complaints [...] 40 MEQ ONCE ONE PO (DC) Ipratropium [place] (ATROVENT) 500 MCG Q2H PRN P RN [...] (GLUCAGON) 1 MG ASDIR PRN IM Ipratropium [place] (ATROVENT) 500 MCG RTQ4H INH Magnesium Sulfate [...] % (Auto) (14.0 - 32.0 %) 27.7 [place] % (Auto) (4.8 - 9.0 %) 6.6 Eos % (Auto) (0.3 - 3.7 %) 2.4 Baso % (Auto) (0.0 - 2.0 %) 0.3 Neut # (Auto) (2.0 - 7.6 x10 3/uL) 6.19 Lymph # (Auto) (1.0 - 3.8 x10 3/uL) 2.77 [place] # (Auto) (0.1 - 0.8 x10 3/uL) [...] 0615 Report Impression - Status: SIGNED Entered: 06/21/2022 0925 IMPRESSION: 1. Unchanged left basilar airspace disease. 2. Unchanged small left pleural effusion. No merry dence of pneumothorax. Impression By: Ana - Pascale Crain M.D. Laboratory Tests: 06/20 06/20 06/20 [...] % (Auto) (14.0 - 32.0 %) 27.0 [place] % (Auto) (4.8 - 9.0 %) 6.3 Eos % (Auto) (0.3 - 3.7 %) 1.9 Baso % (Auto) (0.0 - 2.0 %) 0.3 Neut # (Auto) (2.0 - 7.6 x10 3/uL) 7.16 Lymph # (Auto) (1.0 - 3.8 x10 3/uL) 3.02 [place] # (Auto) (0.1 - 0.8 x10 3/uL) [...] % (Auto) (14.0 - 32.0 %) 17.0 [place] % (Auto) (4.8 - 9.0 %) 5.1 Eos % (Auto) (0.3 - 3.7 %) 2.0 Baso % (Auto) (0.0 - 2.0 %) 0.3 Neut # (Auto) (2.0 - 7.6 x10 3/uL) 7.68 H Lymph # (Auto) (1.0 - 3.8 x10 3/uL) 1.75 [place] # (Auto) (0.1 - 0.8 x10 3/uL) [...] (Auto) (14.0 - 32.0 %) 12.5 L [place] % (Auto) (4.8 - 9.0 %) 6.3 Eos % (Auto) (0.3 - 3.7 %) 0.2 L Baso % (Auto) (0.0 - 2.0 %) 0.2 Neut # (Auto) (2.0 - 7.6 x10 3/uL) 11.34 H Lymph # (Auto) (1.0 - 3.8 x10 3/uL) 1.77 [place] # (Auto) (0.1 - 0.8 x10 3/uL) [...] RADIOLOGY - XR CHEST 1 V 06/18 09 Report Impression - Status: SIGNED Entered: 06/18/2022 1028 IMPRESSION: 1. Mild enlarged cardiac silhouette. 2. Okro-fl-cdtcruah pulmonary edema versus infil trates. 3. Linear [...] Jurgen Wolf MD on at 1743 RPT #:[id number] END OF REPORT 2022-06-21 [facility] 11:47:00-00:00 [facility] ([facility]) Cardioversion Procedure Note REPORT#:[id number] REPORT STATUS: Signed DATE:06/21/22 TIME: 1147 PATIENT: KALA TURPIN UNIT #: [id number] ROOM/BED: [place] [address] : 57 AGE: 67 SEX: F ATTEND: Rosa Murrell MD ADM AUTHOR: Armand Goff MD * ALL edits or amendments must be made on the [employer] document * Procedure Cardioversion Procedure Indication: atrial fibrillation Informed consent: Yes Plan for sedation: moderate Mod. sedation provided by me: no Airway assessment: adequate Post-procedure diagnosis: Normal sinus rhythm Procedure performed: Cardioversion with 150 then 300 J Performed by: ade kaplan [employer] Sales Manager(s): none Findings: Patient was successfully cardioverted from A-fib to NSR Complications: none Electronically Signed by Armand Goff MD on 05/25 12/16 at 1517 RPT #:[id number] END OF REPORT 2022-06-21 [facility] 11:33:00-00:00 [facility] Gastroenterology Progress Note REPORT#:[id number] REPORT STATUS: Signed DATE:06/21/22 TIME: 1133 PATIENT: KALA TURPIN UNIT #: [id number] ROOM/BED: [place] [id number] : 57 AGE: 67 SEX: F ATTEND: Rosa Murrell MD ADM AUTHOR: Marivel Covington * ALL edits or amendments must be made on the [employer] document * Marivel Covington 06/21/22 1133: Subjective [...] 40 MEQ ONCE ONE PO (DC) Ipratropium [place] (ATROVENT) 500 MCG Q2H PRN P RN [...] (GLUCAGON) 1 MG ASDIR PRN IM Ipratropium [place] (ATROVENT) 500 MCG RTQ4H INH Magnesium Sulfate [...] moves all, no edema Musculoskeletal: normal inspection Neuro/HEALTH CARE AIDE: alert, oriented X 3, normal speech Skin: [...] % (Auto) (14.0 - 32.0 %) 27.7 [place] % (Auto) (4.8 - 9.0 %) 6.6 Eos % (Auto) (0.3 - 3.7 %) 2.4 Baso % (Auto) (0.0 - 2.0 %) 0.3 Neut # (Auto) (2.0 - 7.6 x10 3/uL) 6.19 Lymph # (Auto) (1.0 - 3.8 x10 3/uL) 2.77 [place] # (Auto) (0.1 - 0.8 x10 3/uL) [...] RADIOLOGY - XR CHEST 1 V 06/21 1015 Report Impression - Status: SIGNED Entered: 06/21/2022 0916 IMPRESSION: 1. Unchanged left basilar airspace disease. 2. Unchanged small left pleural effusion. No merry dence of pneumothorax. Impression By: Ana - Pascale Crain M.D. Results: labs reviewed, vital signs [...] 6. Trend h/h and transfuse prn 7. 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 Further recommendations may follow Consultants: cardiology Attestations Attestation needed: supervising physician Catrachito Shirley 06/21/22 2319: Attestations Physician Attestation Agree w/findings plan: Agree with the findings and plan as documented chetan y TASHIA Worthington. at 1511 Electronically Signed by Catrachito Shirley MD on at 7479 RPT #:[id number] END OF REPORT 2022-06-21 [id number] [facility] 11:25:00-00:[address] [place] [address] PATIENT NAME: KALA TURPIN ADMIT DATE: 06/15/22 ACCOUNT NO: [id number] ROOM NO: [id number] AGE: 67 REPORT TYPE: eELECTROCARDIOGRAM REPORT SEX: F ADMITTING PHYSICIAN:LOUIS, GENERIC FOR EDM ATTENDING PHYSICIAN:Reva Murrell MD Order: [id number] Test Reason : , Test Date/Time Stamp: [...] No changes Confirmed by MD WALDROP GERARD ([id number]) on 06/23/19 7:07:05 AM Referred By: Reva Murrell Confirmed by:AMARA NAVARRETE MD Electronically Signed by Amara Waldrop MD on 0 06/22/22 at 0707 PATIENT NAME: KALA TURPIN 16 2022-06-21 [facility] 10:57:00-00:00 [facility] ([facility]) Cardiology Progress Note REPORT#:[id number] REPORT STATUS: Signed DATE:06/21/22 TIME: 105 PATIENT: KALA TURPIN UNIT #: [id number] ROOM/BED: [place] [address] : 57 AGE: 67 SEX: F ATTEND: Reji Patel MD ADM AUTHOR: Ursula Perkins NEPHROLOGY SOCIAL WORKER * ALL edits or amendments must be made on the [employer] document * Ursula Perkins 06/21/22 1057: Subjective [...] 06/20 2100 88 11 137/59 83 99 03/28 2000 36.3 06/21 1999 88 21 119/59 80 98 / 1946 100 Nasal 1 cannula 06/20 1930 Nasal 1 cannula 06/20 1900 81 22 122/64 86 98 / 1645 83 22 145/72 99 98 / 1615 143/67 96 06/20 1604 139/77 102 / 1600 155/69 99 03/ 1600 76 16 161/72 102 96 06/20 1530 138/65 94 / 1530 89 13 144/71 99 96 06/20 1515 139/63 91 06/20 1515 77 16 143/68 95 97 / 1502 79 13 149/72 101 97 06/20 1500 136/60 86 06/20 1500 82 14 147/71 100 97 / 1445 133/62 89 06/20 1445 77 13 149/67 93 98 / 1430 115/69 88 / 1430 79 14 142/66 91 97 06/20 1415 120/58 83 06/20 1415 77 13 138/67 90 96 / 1401 117/64 82 / 1401 83 32 142/67 91 97 / 1400 77 17 140/65 89 97 / 1330 107/57 76 / 1330 78 19 118/54 74 97 / 1315 99/51 73 / 1315 78 13 109/51 69 97 / 1300 104/52 74 / 1300 78 14 97/46 62 96 / 1245 100/55 72 / 1245 75 14 96/49 64 97 / 1230 93/51 68 / 1230 74 14 96/49 64 98 /28 1215 97/55 70 / 1215 71 19 101/56 71 99 03/28 1201 89/57 69 / 1201 69 15 108/55 71 97 / 1200 75 14 109/56 73 97 / 1145 103/52 74 03/ 1145 76 22 120/59 78 98 03/28 1142 94/51 67 / 1142 76 15 123/61 79 98 / 1136 74 15 99/51 69 99 03/ 1124 76 17 03/ 1124 91/55 69 03/ 1122 74 22 03/ 1120 82/59 66 06/20 1120 75 25 [...] M L STAT STA IV (DC) Ipratropium [place] (ATROVENT) 500 MCG Q2H PRN P RN [...] (GLUCAGON) 1 MG ASDIR PRN IM Ipratropium [place] (ATROVENT) 500 MCG RTQ4H INH Magnesium Sulfate [...] extremity: LE assessment: edema, no calf tenderness Neuro/HEALTH CARE AIDE: alert, oriented X 3, normal speech Skin: [...] % (Auto) (14.0 - 32.0 %) 27.7 [place] % (Auto) (4.8 - 9.0 %) 6.6 Eos % (Auto) (0.3 - 3.7 %) 2.4 Baso % (Auto) (0.0 - 2.0 %) 0.3 Neut # (Auto) (2.0 - 7.6 x10 3/uL) 6.19 Lymph # (Auto) (1.0 - 3.8 x10 3/uL) 2.77 [place] # (Auto) (0.1 - 0.8 x10 3/uL) [...] (Man) (0.0 - 0.1 x10 3/uL) 0. 06 Laboratory Tests 06/21 06/20 0204 1645 Chemistry Magnesium (1.80 - 2.40 mg/dL) 2.09 1.99 Radiology data: Recent Impressions: RADIOLOGY - XR CHEST 1 V 06/21 7415 Report Impression - Status: SIGNED Entered: 06/21/2022 9254 IMPRESSION: 1. Unchanged left basilar airspace disease. 2. Unchanged small left pleural effusion. No merry dence of pneumothorax. Impression By: [email or web address] - Pascale Crain M.D. Telemetry Interpretation: Atrial fibrillation with controlled rate Diagnosis, Assessment Plan Plan discussed with: patient, nurse Free Text DxA P Notes Free Text DxA P Notes: 67-year-old female with [facility] history of CAD, MT, prior PCI/MEG 11 years ago, hypertension, diabetes melli tus, CVA, peripheral neuropathy, Charcot's foot who presented to [facility] with chest pain. She was taken for left heart catheterization where she wa s found to have multivessel CAD with failed attempt to PCI the HOME CARE PROVIDER LAD. Patient is transferred to [facility] facility for surgical revascularization. 1. Multivessel [...] by Julius Washington MD on at 1214 [facility] #:[id number] END OF REPORT 2022-06-21 [facility] 09:16:00-00:00 [facility] Critical Care Progress Note REPORT#:[id number] REPORT STATUS: Signed DATE:06/21/22 TIME: 915 PATIENT: KALA TURPIN UNIT #: [id number] ROOM/BED: [place] [address] : 57 AGE: 67 SEX: F ATTEND: Rosa Murrell MD ADM AUTHOR: Armand Goff MD * ALL edits or amendments must be made on the [employer]/computer document * Subjective Chief complaint: s/p CABG x4 (LIN-LAD, SVG-Elisabet, SVG-OM, SVG-PDA) ALAA LENAH (RGSV) Posterior pericardiotomy on 06/16/2022 Comments: Out of bed in the chair Got orthostatic with PT Urine output 700 cc On insulin drip Remains in A-fib Objective General VS/I O Last Documented: Result Date Time B/P 94/56 06/21 06 B/P Mean 70 06/21 06 Pulse Ox 96 06/21 06 Pulse 75 06/21 06 Resp 14 06/21 06 O2 Delivery Nasal cannula 06/21 034 O2 Flow Rate 1 06/21 0344 Temp [...] M L STAT STA IV (DC) Ipratropium [place] (ATROVENT) 500 MCG Q2H PRN P RN [...] (GLUCAGON) 1 MG ASDIR PRN IM Ipratropium [place] (ATROVENT) 500 MCG RTQ4H IN H Magnesium Sulfate (MAGNESIUM SULFATE 4GM/SWFI 10 0ML) [...] PRN PRN PO Results Findings/data: Laboratory Tests 06/21 06/20 06/20 0204 2044 [...] % (Auto) (14.0 - 32.0 %) 27.7 [place] % (Auto) (4.8 - 9.0 %) 6.6 Eos % (Auto) (0.3 - 3.7 %) 2.4 Baso % (Auto) (0.0 - 2.0 %) 0.3 Neut # (Auto) (2.0 - 7.6 x10 3/uL) 6.19 Lymph # (Auto) (1.0 - 3.8 x10 3/uL) 2.77 [place] # (Auto) (0.1 - 0.8 x10 3/uL) [...] dence of pneumothorax. Impression By: [email or web address] - Pascale Crain M.D. Free Text Obj Notes Free [...] MD on 05/25 12/16 at 1517 RPT #:[id number] END OF REPORT 2022-06-21 [facility] 08:39:00-00:[address] [facility] ([facility]) Cardiothoracic Surgery Prog REPORT#:[id number] REPORT STATUS: Signed DATE:06/21/22 TIME: 838 PATIENT: KALA TURPIN UNIT #: [id number] ROOM/BED: [place] [address] : 57 AGE: 67 SEX: F ATTEND: Reji Patel MD ADM AUTHOR: Paris Bear Physic * ALL edits or amendments must be made on the [employer]/computer document * General Post-op: day 5 Status [...] 94/56 06/21 0600 B/P Mean 70 06/21 06 Pulse Ox 96 06/21 0600 Pulse 75 [...] moves all Musculoskeletal: full range of motion Neuro/HEALTH CARE AIDE: alert, oriented X 3 Skin: dry, intact [...] M L STAT STA IV (DC) Ipratropium [place] (ATROVENT) 500 MCG Q2H PRN P RN [...] (GLUCAGON) 1 MG ASDIR PRN IM Ipratropium [place] (ATROVENT) 500 MCG RTQ4H INH Magnesium Sulfate [...] - 5.0 g/dL) 2.60 L Laboratory Tests 06/214 Hematology WBC (4.5 - 11.0 x10 3/uL) [...] % (Auto) (14.0 - 32.0 %) 27.7 [place] % (Auto) (4.8 - 9.0 %) 6.6 Eos % (Auto) (0.3 - 3.7 %) 2.4 Baso % (Auto) (0.0 - 2.0 %) 0.3 Neut # (Auto) (2.0 - 7.6 x10 3/uL) 6.19 Lymph # (Auto) (1.0 - 3.8 x10 3/uL) 2.77 [place] # (Auto) (0.1 - 0.8 x10 3/uL) [...] 0615 Report Impression - Status: SIGNED Entered: 06/21/2022 0916 IMPRESSION: 1. Unchanged left basilar airspace disease. 2. Unchanged small left pleural effusion. No merry dence of pneumothorax. Impression By: [email or web address] - Pascale Crain M.D. Results: labs reviewed, vital signs stable, [...] wit h 80-90% stenosis. Patient transferred to [facility] for surgical revasc ularization. PLAN Coronary [...] alert and oriented, [facility] Labile blood pressure. Minimal pressor requireme nts, levo at 1, wean off as tolerated Transfuse 1 unit PRBC On 2l nasal cannula, encoura ge incentive spirometer use, nebs and deep breathing NSR on cell assembly pinner, no ectopy, epicardial pa cing wires on [...] physician, consultants, nurse, interdisc care team at 8093 at 1225 RPT #:[id number] END OF REPORT 2022-06-20 [facility] 23:56:00-00:00 [facility] ([facility]) Hospitalist History Physical REPORT#:[id number] REPORT STATUS: Signed DATE:06/20/22 TIME: 2356 PATIENT: KALA TURPIN UNIT #: [id number] ROOM[place]BED: [facility] [place] [facility] : 57 AGE: 67 SEX: F ATTEND: Rosa Murrell MD ADM AUTHOR: Reva Murrell MD * ALL edits or amendments must be made on the [employer]computer document * History of Present Illness HPI [...] 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 Patient transferred to [facility] for surgical revascularization. History Past Medical [...] Last Documented: Result Date Time Temp 97.4 06/21 1999 Pulse Ox 100 06/20 1945 O2 Delivery Nasal cannula 06/20 1945 O2 Flow Rate 1 06/20 1945 B/P 145/72 06/20 1645 B/P Mean 99 [...] MG ONCE ONE IV (D C) Ipratropium [place] (ATROVENT) 500 MCG Q2H PRN P RN [...] (GLUCAGON) 1 MG ASDIR PRN IM Ipratropium [place] (ATROVENT) 500 MCG RTQ4H INH Magnesium Sulfate [...] normal inspection, painless ran ge of motion Neuro/HEALTH CARE AIDE: alert, oriented X 3, CNII-XII intact Skin: [...] Magnesium (1.80 - 2.40 mg/dL) 1.99 06/20 0250 Chemistry Sodium (134 - 147 mEq/L) 142 [...] % (Auto) (14.0 - 32.0 %) 27.0 [place] % (Auto) (4.8 - 9.0 %) 6.3 Eos % (Auto) (0.3 - 3.7 %) 1.9 Baso % (Auto) (0.0 - 2.0 %) 0.3 Neut # (Auto) (2.0 - 7.6 x10 3/uL) 7.16 Lymph # (Auto) (1.0 - 3.8 x10 3/uL) 3.02 [place] # (Auto) (0.1 - 0.8 x10 3/uL) [...] (Man) (0.0 - 0.1 x10 3/uL) 0. 04 Laboratory Tests 06/20/22 1645: [Embedded Image Not Available] 06/20/22 0250: [Embedded Image Not Available] Radiology data: Recent Impressions: RADIOLOGY - XR CHEST 1 V 06/20 0521 Report Impression - Status: SIGNED Entered: 06/20/2022 9353 IMPRESSION: 1. New small right pleural effusion. [...] MD on 0 06/21/22 at 0101 RPT #:[id number] END OF REPORT 2022-06-20 [facility] 19:12:00-00:00 [facility] Rehab Progress Note REPORT#:[id number] REPORT STATUS: Signed DATE:06/20/22 TIME: 1911 PATIENT: KALA TURPIN UNIT #: [id number] ROOM/BED: [place] [address] : 59 AGE: 67 SEX: F ATTEND: Rosa Murrell MD ADM AUTHOR: Leia Castellanos HOSPITAL NURSE * ALL edits or amendments must be made on the [employer] document * Subjective Chief complaint: rehab follow-up [...] 149/67 93 98 06/20 1430 115/69 88 / 1430 79 14 142/66 91 97 03/ 1415 120/58 83 03/ 1415 77 13 138/67 90 96 03/ 1401 117/64 82 03/ 1401 83 32 142/67 91 97 03/28 1400 77 17 140/65 89 97 03/ 1330 107/57 76 03/ 1330 78 19 118/54 74 97 03/ 1315 99/51 73 03/ 1315 78 13 109/51 69 97 03/28 1300 104/52 74 03/ 1300 78 14 97/46 62 96 03/ 1245 100/55 72 03/ 1245 75 14 96/49 64 97 03/ 1230 93/51 68 03/ 1230 74 14 96/49 64 98 03/ 1215 97/55 70 03/ 1215 71 19 101/56 71 99 03/ 1201 89/57 69 03/ 1201 69 15 108/55 71 97 03/ 1200 75 14 109/56 73 97 03/ 1145 103/52 74 03/28 1145 76 22 120/59 78 98 / 1142 94/51 67 / 1142 76 15 123/61 79 98 03/ 1136 74 15 99/51 69 99 / 1124 76 17 / 1124 91/55 69 / 1122 74 22 / 1120 82/59 66 / 1120 75 25 280/280 280 / 1101 114/56 80 03/ 1101 98.8 67 13 124/63 83 97 / 1100 98.8 72 12 125/63 84 97 03/28 1045 87/50 62 / 1045 98.8 72 13 111/59 76 98 03/28 1031 100/49 70 03/ 1031 98.8 74 14 89/48 61 98 03/28 1015 100/55 72 03/28 1015 98.8 72 11 125/64 83 97 03/28 1001 105/58 78 03/ 1001 98.6 78 21 81/40 55 96 03/ 1000 98.6 77 27 109/57 75 97 03/ 0948 100 Room air 21 03 0946 111/51 71 03/ 0946 98.6 72 9 122/56 76 97 03/28 0930 122/62 86 03/28 0930 98.4 75 13 134/63 86 97 03/28 0915 154/68 98 03/28 0915 98.4 82 14 151/73 102 96 03/28 0900 133/61 88 03/28 0900 98.4 84 14 152/72 99 96 03/28 0845 130/74 97 03/28 0845 98.2 79 13 159/73 101 96 03/28 0831 129/77 96 03/ 0831 98.2 84 16 149/70 96 96 / 0816 144/76 97 03/ 0816 98.2 79 11 158/76 104 96 03/ 0801 107/55 75 03/ 0801 98.2 80 24 118/56 77 96 03/ 0800 98.2 79 27 117/65 84 95 03/ 0745 109/55 79 03/ 0745 98.2 73 14 136/61 86 96 03/28 0730 112/55 75 03/ 0730 98.2 75 14 131/59 83 96 03/28 0715 115/53 76 03/ 0715 98.4 79 14 128/59 82 95 03/28 0700 113/55 77 03/28 0700 98.4 75 12 132/63 86 95 /28 0600 138/62 89 / 0600 99.0 81 12 143/67 91 95 /28 0500 96/55 71 03/ 0500 98.8 71 12 109/53 69 96 03/28 0400 97/59 73 / 0400 98.8 76 12 118/57 76 95 / 0348 95 Room air / 0300 100/72 82 03/ 0300 99.0 79 12 132/66 86 96 03/28 0200 94/53 69 / 0200 99.0 73 19 103/56 71 100 03/28 0100 95/52 70 03/ 0100 99.1 69 12 105/56 72 100 03/28 0000 93/62 69 03/ 0000 99.0 80 14 97/52 66 100 03/27 2300 102/53 71 03/ 2300 99.0 77 14 110/59 74 99 03/27 2200 98/58 74 03/27 2200 99.0 81 13 114/54 72 97 06/19 2099 136/65 93 06/19 2099 98.8 87 20 149/74 97 100 06/20 1999 133/65 94 06/20 1999 98.8 83 12 152/72 98 100 06/19 1943 99 Nasal 2 cannula 06/19 1929 High flow 1 nasal cannula PATIENT WEIGHT: [...] Chloride (SODIUM CHLORIDE 0.9%) 250 ML Ipratropium [place] (ATROVENT) 500 MCG Q2H PRN P RN [...] (GLUCAGON) 1 MG ASDIR PRN IM Ipratropium [place] (ATROVENT) 500 MCG RTQ4H INH Magnesium Sulfate [...] - general: Musculoskeletal - general: swelling (BLE) Neuro/HEALTH CARE AIDE: alert, oriented X 3, CNII-XII intact, normal speech, no motor deficits, no sensory deficits Results Findings/Data: Laboratory Tests: 06/20 06/20 06/20 06/20 1645 0620 0254 0250 Blood Gas Puncture Site Art Line O2 [...] % (Auto) (14.0 - 32.0 %) 27.0 [place] % (Auto) (4.8 - 9.0 %) 6.3 Eos % (Auto) (0.3 - 3.7 %) 1.9 Baso % (Auto) (0.0 - 2.0 %) 0.3 Neut # (Auto) (2.0 - 7.6 x10 3/uL) 7.16 Lymph # (Auto) (1.0 - 3.8 x10 3/uL) 3.02 [place] # (Auto) (0.1 - 0.8 x10 3/uL) [...] (0.0 - 0.1 x10 3/uL) 0.0 4 06/199 Chemistry POC Glucose (70 - 110 MG/DL) [...] and amiodarone drip Advance therapies as tolerated 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 at 1921 RPT #:[id number] END OF REPORT 2022-06-20 [facility] 17:21:00-00:00 [facility] ([facility] Endocrinology Progress Note REPORT#:[id number] REPORT STATUS: Signed DATE:06/20/22 TIME: 1721 PATIENT: KALA TURPIN UNIT #: [id number] ROOM/BED: [place] [address] : 59 AGE: 67 SEX: F ATTEND: Rosa Murrell MD ADM AUTHOR: Jurgen Wolf MD * ALL edits or amendments must be made on the [employer] document * Subjective Patient reports: no complaints Objective General VS: Last Documented: Result Date Time Pulse Ox 98 06/20 1645 B/P 145/72 06/20 1645 B/P Mean 99 06/20 1645 Pulse 83 06/20 1645 Resp 22 06/20 1645 Temp 37.1 06/20 1101 FiO2 21 06/20 0948 O2 Delivery Room air 06/20 0948 O2 Flow Rate 2 06/19 1943 PATIENT WEIGHT: Weight (lb): 222 Weight (oz): [...] Chloride (SODIUM CHLORIDE 0.9%) 250 ML Ipratropium [place] (ATROVENT) 500 MCG Q2H PRN P RN [...] (GLUCAGON) 1 MG ASDIR PRN IM Ipratropium [place] (ATROVENT) 500 MCG RTQ4H INH Magnesium Sulfate [...] % (Auto) (14.0 - 32.0 %) 27.0 [place] % (Auto) (4.8 - 9.0 %) 6.3 Eos % (Auto) (0.3 - 3.7 %) 1.9 Baso % (Auto) (0.0 - 2.0 %) 0.3 Neut # (Auto) (2.0 - 7.6 x10 3/uL) 7.16 Lymph # (Auto) (1.0 - 3.8 x10 3/uL) 3.02 [place] # (Auto) (0.1 - 0.8 x10 3/uL) [...] % (Auto) (14.0 - 32.0 %) 17.0 [place] % (Auto) (4.8 - 9.0 %) 5.1 Eos % (Auto) (0.3 - 3.7 %) 2.0 Baso % (Auto) (0.0 - 2.0 %) 0.3 Neut # (Auto) (2.0 - 7.6 x10 3/uL) 7.68 H Lymph # (Auto) (1.0 - 3.8 x10 3/uL) 1.75 [place] # (Auto) (0.1 - 0.8 x10 3/uL) [...] (Man) (0.0 - 0.1 0.02 x10 3/uL) 06/180 2032 Chemistry POC Glucose (70 - 110 MG/DL) [...] 06/18 06/18 06/18 1601 1600 1545 1148 0770 Blood Gas Puncture Site Art Line O2 [...] (Auto) (14.0 - 32.0 %) 12.5 L [place] % (Auto) (4.8 - 9.0 %) 6.3 Eos % (Auto) (0.3 - 3.7 %) 0.2 L Baso % (Auto) (0.0 - 2.0 %) 0.2 Neut # (Auto) (2.0 - 7.6 x10 3/uL) 11.34 H Lymph # (Auto) (1.0 - 3.8 x10 3/uL) 1.77 [place] # (Auto) (0.1 - 0.8 x10 3/uL) [...] RADIOLOGY - XR CHEST 1 V 06/18 0805 Report Impression - Status: SIGNED Entered: 06/18/2022 1028 IMPRESSION: 1. Mild enlarged cardiac silhouette. 2. Sohl-yx-cmfhsrxu pulmonary edema versus infil trates. 3. Linear [...] Jurgen Wolf MD on at 1722 RPT #:[id number] END OF REPORT 2022-06-20 [facility] 15:16:00-00:00 [facility] ([facility]) Clinical Note REPORT#:[id number] REPORT STATUS: Signed DATE:06/20/22 TIME: 1516 PATIENT: KALA TURPIN UNIT #: [id number] ROOM/BED: [place] [address] : 57 AGE: 67 SEX: F ATTEND: Rosa Murrell MD ADM AUTHOR: Natasha Morrissey MD * ALL edits or amendments must be made on the [employer]/computer document * Clinical Note Note: STS Score Risk of Mortality = 1.389% Renal Failure: 1.577% Permanent Stroke: 1.298% Prolonged Ventilation: 6.452% DSW Infection: 0.379% Reoperation: 1.202% Morbidity or Mortality: 10.355% Short Length of Stay: 41.394% Long Length of Stay: 3.207% Electronically Signed by Natasha Morrissey MD on 05/25 11/15 at 1517 RPT #:[id number] END OF REPORT 2022-06-20 [facility] 13:15:00-00:00 [facility] ([facility]) Cardiology Progress Note REPORT#:[id number] REPORT STATUS: Signed DATE:06/20/22 TIME: 1315 PATIENT: KALA TURPIN UNIT #: [id number] ROOM/BED: [address] : 57 AGE: 67 SEX: F ATTEND: Reji Patel MD ADM AUTHOR: Ursula Perkins NEPHROLOGY SOCIAL WORKER * ALL edits or amendments must be made on the [employer]/computer document * Ursula Perkins 06/20/22 1315: Subjective [...] 0600 37.2 81 12 143/67 91 95 / 0500 96/55 71 03/ 0500 37.1 71 12 109/53 69 96 / 0400 97/59 73 03/ 0400 37.1 76 12 118/57 76 95 / 0348 95 Room air / 0300 100/72 82 03/ 0300 37.2 79 12 132/66 86 96 03/ 0200 94/53 69 / 0200 37.2 73 19 103/56 71 100 / 0100 95/52 70 03/ 0100 37.3 69 12 105/56 72 100 / 0000 93/62 69 03/ 0000 37.2 80 14 97/52 66 100 03/ 2300 102/53 71 06/19 2300 37.2 77 14 110/59 74 99 / 2200 98/58 74 03/ 2200 37.2 81 13 114/54 72 97 / 2100 136/65 93 / 2100 37.1 87 20 149/74 97 100 / 2000 133/65 94 / 2000 37.1 83 12 152/72 98 100 06/19 1943 99 Nasal 2 cannula 06/19 1930 High flow 1 nasal cannula 06/19 1900 135/68 97 06/19 1900 37.1 88 16 146/74 98 99 / 1730 141/65 93 / 1730 37.1 96 18 146/77 101 100 / 1700 97/59 74 / 1700 37.1 85 17 106/53 68 100 06/19 1645 117/58 81 06/19 1645 37.1 90 13 126/63 82 100 / 1630 118/58 83 / 1630 37.1 77 12 131/63 84 100 / 1615 141/71 96 / 1615 37.1 93 13 148/74 99 99 03/ 1606 136/75 99 03/ 1606 37.1 92 23 139/68 93 99 03/ 1545 37.1 90 14 105/50 66 99 / 1530 37.1 87 14 106/51 67 100 03/ 1515 37.1 90 13 118/56 75 99 03/ 1500 37.1 96 14 116/55 72 99 03/ 1430 37.2 96 13 116/56 74 99 [...] MG ONCE ONE IV (D C) Ipratropium [place] (ATROVENT) 500 MCG Q2H PRN P RN [...] (GLUCAGON) 1 MG ASDIR PRN IM Ipratropium [place] (ATROVENT) 500 MCG RTQ4H INH Magnesium Sulfate [...] extremity: LE assessment: edema, no calf tenderness Neuro/HEALTH CARE AIDE: alert, oriented X 3, normal speech Skin: [...] % (Auto) (14.0 - 32.0 %) 27.0 [place] % (Auto) (4.8 - 9.0 %) 6.3 Eos % (Auto) (0.3 - 3.7 %) 1.9 Baso % (Auto) (0.0 - 2.0 %) 0.3 Neut # (Auto) (2.0 - 7.6 x10 3/uL) 7.16 Lymph # (Auto) (1.0 - 3.8 x10 3/uL) 3.02 [place] # (Auto) (0.1 - 0.8 x10 3/uL) [...] Report Impression - Status: SIGNED Entered: 06/20/2022 0854 IMPRESSION: 1. New small right pleural effusion. 2. Small residual left apical pneumothorax, stab le to diminished. 3. Stable pulmonary opacities and left basilar p leuroparenchymal disease. Impression By: Adam Sprague M.D. Results: labs reviewed, vital signs reviewed, [facility] personally rev'd Telemetry Interpretation: afib with controlled rate Diagnosis, Assessment Plan Plan discussed with: patient, nurse Free Text DxA P Notes Free Text DxA P Notes: 67-year-old female with [facility] history of CAD, MT, prior PCI/MEG 11 years ago, hypertension, diabetes melli tus, CVA, peripheral neuropathy, Charcot's foot who presented to [facility] with chest pain. She was taken for left heart catheterization where she wa s found to have multivessel CAD with failed attempt to PCI the HOME CARE PROVIDER LAD. Patient is transferred to [facility] facility for surgical revascularization. 1. Multivessel [...] Julius Washington MD on at 1214 RPT #:[id number] END OF REPORT 2022-06-20 [facility] 09:34:00-00:00 [facility] ([facility]) Cardiothoracic Surgery Prog REPORT#:[id number] REPORT STATUS: Signed DATE:06/20/22 TIME: 933 PATIENT: KALA TURPIN UNIT #: [id number] ROOM/BED: [place] [id number] : 57 AGE: 67 SEX: F ATTEND: Rosa Murrell MD ADM AUTHOR: Paris Bear [employer]ic * ALL edits or amendments must be made on the [employer]/computer document * General Post-op: day 4 Status [...] 133/61 06/20 0900 B/P Mean 88 06/20 09 Pulse Ox 96 06/20 09 Temp 98.4 06/20 0900 Pulse 84 06/20 [...] PO INTAKE <50% CONSIDER ONS Dietitian name: Kostasdwight Estradarand, DIET Assessment completed: 06/16/22 Physical Exam General [...] moves all Musculoskeletal: full range of motion Neuro/HEALTH CARE AIDE: alert, oriented X 3 Skin: dry, intact [...] 40 MEQ ONCE ONE FEED-TUBE (DC) Ipratropium [place] (ATROVENT) 500 MCG Q2H PRN P RN [...] (GLUCAGON) 1 MG ASDIR PRN IM Ipratropium [place] (ATROVENT) 500 MCG RTQ4H INH Magnesium Sulfate [...] % (Auto) (14.0 - 32.0 %) 27.0 [place] % (Auto) (4.8 - 9.0 %) 6.3 Eos % (Auto) (0.3 - 3.7 %) 1.9 Baso % (Auto) (0.0 - 2.0 %) 0.3 Neut # (Auto) (2.0 - 7.6 x10 3/uL) 7.16 Lymph # (Auto) (1.0 - 3.8 x10 3/uL) 3.02 [place] # (Auto) (0.1 - 0.8 x10 3/uL) [...] RADIOLOGY - XR CHEST 1 V 06/20 8318 Report Impression - Status: SIGNED Entered: 06/20/2022 [...] wit h 80-90% stenosis. Patient transferred to [facility] for surgical revasc ularization. PLAN Coronary [...] use, nebs and deep breathing NSR on cell assembly pinner, no ectopy, epicardial pa cing wires on [...] nurse, interdisc care team at 1809 at 2880 RPT #:[id number] END OF REPORT 2022-06-20 [facility] 09:06:00-00:00 [facility] ([facility]) GE Consultation Note REPORT#:[id number] REPORT STATUS: Signed DATE:06/20/22 TIME: 905 PATIENT: KALA TURPIN UNIT #: [id number] ROOM/BED: [place] [id number] : 57 AGE: 67 SEX: F ATTEND: Rosa Murrell MD ADM AUTHOR: Marivel Covington * ALL edits or amendments must be made on the [employer]/computer document * Marivel Covington 06/20/22 0906: History of Present Illness Requesting clinician: Reva Murrell MD Reason for consult: Food getting stuck PCP: PCP: Undefined Provider HPI: This is a 67-year-old female with past m edical history significant for stroke, hypertension, hyperlipidemia , diabetes on insulin, PAULO, PAD, MT status post PCI/ stenting on Plavix, and history of non-Hodgkin's , who presented to the ED for acute onset severe chest pain rating to the left shoulder and jaw. Patient was found to have severe multive ssel coronary artery disease and was transferred to [facility] for surgical revascularization. Tashia raman is [...] medical history: Reports: Coronary artery disease, Diabetes carlai tus, Hypertension, Ischemic stroke, Prior MT. Denies: Congestive heart failu re, Kidney disease/stones. [...] PO DAILY 06/15/2206/15 Strength: 25 MG TAB 011112 HYDROCHLOROTHIAZIDE 12.5 MG PO DAILY 06/15/22 0 06/15/22 (HCTZ) 0110 112 Strength: 12.5 MG CAP PARoxetine HCL (PAXIL) 20 MG PO DAILY 06/15/22 06/15/22 Strength: 20 MG TAB 0110 112 METOPROLOL SUCC XL 25 MG PO [...] Melatonin 6 MG BEDTIME 06/15 2100 AC 06/19 (Melatonin) PO 07/15 Autonomic Drugs Sig/William Start time Last Medication Dose Route Stop Time Status Admin Ipratropium [place] 500 MCG Q2H PRN PRN 06/19 1 150 AC (ATROVENT) INH 07/19 1149 Dopamine HCl/Dextrose 250 ML ASDIR 06/17 1400 A C 06/17 (DOPamine 400MG/D5W IV 07/17 1359 1410 250ML) Epinephrine 4 MG ASDIR 06/16 1200 AC (ADRENALIN CHLORIDE) IV 07/16 1159 Dextrose/Water 246 ML (DEXTROSE 5% WATER) Ipratropium [place] 500 MCG RTQ4H 06/16 1200 AC 06/20 [...] 0 06/20 (HEPARIN 5000 UNITS/ SUBQ 07/17 2058 0808 ML) Clopidogrel Bisulfate 75 MG DAILY 06/17 0900 AC 06/20 (Plavix) PO 07/17 0859 0810 Cardiovascular Drugs Sig/William Start time Last Medication Dose Route Stop Time Status Admin Amiodarone HCl 400 MG BID 06/20 2099 CKD (CORDARONE) PO 07/20 2058 Amiodarone HCl 100 ML STAT STA 06/20 1102 DC (NEXTERONE 150MG/D5W IV 06/20 1111 1152 100ML) Amiodarone HCl 450 MG ASDIR 06/18 194 CKD 05/25 7 (AMIODARONE HCL) IV 07/18 194 2300 Dextrose/Water 250 ML (D5%W NON-DEHP) Metoprolol Tartrate 12.5 MG Q12HR 06/16 2100 AC 06/20 (LOPRESSOR) PO 07/16 2058 0811 Amiodarone HCl 200 MG TID 06/16 1500 DC 06/20 (CORDARONE) PO 07/16 1459 0809 Nitroglycerin/ 250 ML ASDIR 06/16 1200 AC Dextrose IV 07/16 1159 (NITROGLYCERIN 50,000MCG/D5W 250ML) Atorvastatin Calcium 40 MG 2100 06/15 2099 AC 0 06/19 (LIPITOR) PO 07/15 Central Nervous System Agents Sig/William Start time Last Medication Dose Route Stop Time Status Admin Magnesium Sulfate/ 100 ML ONCE ONE 06/19 1915 D C Dextrose IV 06/19 2013 (MAGNESIUM [...] Q4H PRN PRN 06/16 1200 AC 0 06/19 (ROXICODONE) PO 06/21 1159 2303 Oxycodone HCl [...] 2245 DC (LASIX 20MG INJ) IV 06/19 2245 Potassium Chloride 40 MEQ ONCE ONE 06/195 D C (POTASSIUM CHLORIDE PO 06/19 191 20MEQ TAB.ER) Potassium Phosphate 20 MM ONCE ONE 06/19 191 D C 06/19 (POTASSIUM PHOSPHATE) IV 06/19 2314 1928 Sodium Chloride 250 ML (SODIUM CHLORIDE 0.9%) Potassium Chloride 40 MEQ ONCE ONE 06/19 1645 D C 06/19 (K-SHWETHA 20 MEQ PACKET) FEED-TUBE 06/19 1646 1726 Dextrose/Water 250 ML ASDIR PRN 06/17 1745 [...] 0602 Docusate Sodium 100 MG BID 06/16 2099 AC 06/20 (COLACE) PO 07/16 Sennosides 17.2 [...] zolpidem (From AMBIEN) (CONFUSION 06/15/22) 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 Respiratory: [...] Room air 06/20 0948 B/P 133/61 06/20 0900 B/P Mean 88 06/20 09 Temp 36.9 06/20 09 Pulse 84 06/20 0900 Resp 14 06/20 0900 O2 Flow Rate 2 06/19 1943 24 [...] 40 MEQ ONCE ONE FEED-TUBE (DC) Ipratropium [place] (ATROVENT) 500 MCG Q2H PRN P RN INH Cyanocobalamin (Vitamin B-12 500 mcg tab) 500 MC G DAILY PO Ferrous Sulfate (FERROUS SULFATE) 325 MG DAILY P O Insulin Glargine (Lantus/Semglee) 12 UNIT BEDTIM E SUBQ Amiodarone HCl (AMIODARONE HCL) 450 MG ASDIR IV (CKD) Dextrose/Water (D5%W NON-DEHP) 250 ML Acetylcysteine (MUCOMYST FOR RT) 200 MG RTQ8H N EB (DC) Bisacodyl (DULCOLAX) 10 MG ONCE PRN [...] (GLUCAGON) 1 MG ASDIR PRN IM Ipratropium [place] (ATROVENT) 500 MCG RTQ4H INH Magnesium Sulfate [...] moves all, no edema Musculoskeletal: normal inspection Neuro/HEALTH CARE AIDE: alert, oriented X 3, normal speech Skin: [...] % (Auto) (14.0 - 32.0 %) 27.0 [place] % (Auto) (4.8 - 9.0 %) 6.3 Eos % (Auto) (0.3 - 3.7 %) 1.9 Baso % (Auto) (0.0 - 2.0 %) 0.3 Neut # (Auto) (2.0 - 7.6 x10 3/uL) 7.16 Lymph # (Auto) (1.0 - 3.8 x10 3/uL) 3.02 [place] # (Auto) (0.1 - 0.8 x10 3/uL) [...] RADIOLOGY - XR CHEST 1 V 06/20 2440 Report Impression - Status: SIGNED Entered: 06/20/2022 [...] 6. Trend h/h and transfuse prn 7. 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 Further recommendations may follow Attestations Attestation needed: supervising physician Catrachito Shirley 06/20/22 1821: Attestations Physician Attestation Agree w/findings plan: Agree with the findings and plan as documented chetan y TASHIA Worthington. at 1349 Electronically Signed by Catrachito Shirley MD on at 1822 RPT #:[id number] END OF REPORT 2022-06-20 [facility] 07:54:00-00:00 [facility] ([facility]) Critical Care Progress Note REPORT#:[id number] REPORT STATUS: Signed DATE:06/20/22 TIME: 753 PATIENT: KALA TURPIN UNIT #: [id number] ROOM/BED: 2205-1 : 57 AGE: 67 SEX: F ATTEND: Rosa Murrell MD ADM AUTHOR: Armand Goff MD * ALL edits or amendments must be made on the [employer]/computer document * Subjective Chief complaint: s/p CABG x4 (LIN-LAD, SVG-Elisabet, SVG-OM, SVG-PDA) RUBEN SPICER (RGSV) Posterior pericardiotomy on 06/16/2022 Comments: Out of bed in the chair Diuresed with Lasix , UOP 925 On insulin and amiodarone drip Remains in A-fib Objective General VS/I O Last Documented: Result Date Time B/P 138/62 06/20 06 B/P Mean 89 06/20 06 Pulse Ox 95 06/20 06 Temp 99.0 06/20 06 Pulse 81 06/20 0600 Resp 12 06/20 06 O2 Delivery Room air 06/20 0348 O2 [...] 40 MEQ ONCE ONE FEED-TUBE (DC) Ipratropium [place] (ATROVENT) 500 MCG Q2H PRN P RN [...] (GLUCAGON) 1 MG ASDIR PRN IM Ipratropium [place] (ATROVENT) 500 MCG RTQ4H INH Magnesium Sulfate [...] PRN PO Results Findings/data: Laboratory Tests 06/20 06/20 06/19 06/19 06/19 0254 0250 2159 1819 1445 Chemistry Sodium (134 [...] 5.0 g/dL) 2.70 L Laboratory Tests 06/20 0250 Hematology WBC (4.5 [...] % (Auto) (14.0 - 32.0 %) 27.0 [place] % (Auto) (4.8 - 9.0 %) 6.3 Eos % (Auto) (0.3 - 3.7 %) 1.9 Baso % (Auto) (0.0 - 2.0 %) 0.3 Neut # (Auto) (2.0 - 7.6 x10 3/uL) 7.16 Lymph # (Auto) (1.0 - 3.8 x10 3/uL) 3.02 [place] # (Auto) (0.1 - 0.8 x10 3/uL) [...] labs as needed Oral diet as tolerated, rj l regimen, seen by GI for dysphagia, [...] MD on 05/25 12/16 at 1517 RPT #:[id number] END OF REPORT 2022-06-19 [facility] 23:54:00-00:00 [facility] ([facility]) Hospitalist Progress Note REPORT#:[id number] REPORT STATUS: Signed DATE:06/19/22 TIME: 2353 PATIENT: KALA TURPIN UNIT #: [id number] ROOM/BED: [place] [address] : 57 AGE: 67 SEX: F ATTEND: Rosa Murrell MD ADM AUTHOR: Reva Murrell MD * ALL edits or amendments must be made on the [employer]/computer document * Subjective Chief complaint: patient can [...] 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 Patient transferred to [facility] for surgical revascularization. Objective General VS/I O: Vital Signs: Date Time Temp Pulse Resp B/P B/P Pulse O2 O2 F low FiO2 Mean Ox Delivery Rate 06/19 1942 99 Nasal 2 cannula 06/19 1929 High flow 1 nasal cannula 06/19 1730 141/65 93 06/19 1730 98.8 96 18 146/77 101 100 06/19 1700 97/59 74 06/19 1700 98.8 85 17 106/53 68 100 06/19 1645 117/58 81 06/19 1645 98.8 90 13 126/63 82 100 06/19 1630 118/58 83 06/19 1630 98.8 77 12 131/63 84 100 06/19 1615 141/71 96 03/27 1615 98.8 93 13 148/74 99 99 03/27 1606 136/75 99 03/27 1606 98.8 92 23 139/68 93 99 03/27 1545 98.8 90 14 105/50 66 99 03/27 1530 98.8 87 14 106/51 67 100 03/27 1515 98.8 90 13 118/56 75 99 03/27 1500 98.8 96 14 116/55 72 99 03/27 1430 99.0 96 13 116/56 74 99 03/27 1400 99.0 88 14 108/53 68 99 03/27 1351 99.0 89 16 94/53 67 98 03/27 1345 99.0 91 13 97/49 64 98 03/27 1330 99.1 102 12 120/59 78 100 03/27 1300 99.1 96 17 100/63 76 99 03/27 1230 99.1 88 12 110/57 73 99 03/27 1200 99.1 93 18 136/69 91 99 [...] 98 03/27 0345 143/64 92 03/27 0345 98.6 107 12 135/60 82 98 03/27 0330 132/65 93 03/27 0330 98.6 113 15 127/63 83 100 03/27 0328 98 Nasal 2 cannula 03/27 0315 132/62 89 03/27 0315 98.6 103 18 114/50 69 99 03/27 0300 123/58 84 03/27 0300 98.6 113 13 118/50 70 99 03/27 0245 130/58 83 03/27 0245 98.6 105 13 123/52 72 98 03/27 0230 133/64 92 03/27 0230 98.6 116 12 128/54 75 98 03/27 0215 142/65 94 03/27 0215 98.6 119 18 143/63 87 99 03/27 0200 132/64 92 03/27 0200 98.4 122 16 146/64 88 99 03/27 0145 117/59 81 03/27 0145 98.4 113 11 122/52 72 99 03/27 0130 119/59 85 03/27 0130 98.4 119 15 116/51 70 99 03/27 0115 135/56 81 03/27 0115 98.4 116 14 112/49 67 99 03/27 0100 130/60 87 06/19 0100 98.4 119 13 119/52 72 99 06/19 0045 137/63 91 06/19 0045 98.4 120 12 122/53 73 99 06/19 0030 126/59 85 06/19 0030 98.4 118 12 115/51 70 99 [...] 40 MEQ ONCE ONE FEED-TUBE (DC) Ipratropium [place] (ATROVENT) 500 MCG Q2H PRN P RN [...] Chloride (SODIUM CHLORIDE 0.9%) 99 ML Ipratropium [place] (ATROVENT) 500 MCG RTQ4H INH Magnesium Sulfate [...] normal inspection, painless ran ge of motion Neuro/HEALTH CARE AIDE: alert, oriented X 3, CNII-XII intact Skin: [...] % (Auto) (14.0 - 32.0 %) 17.0 [place] % (Auto) (4.8 - 9.0 %) 5.1 Eos % (Auto) (0.3 - 3.7 %) 2.0 Baso % (Auto) (0.0 - 2.0 %) 0.3 Neut # (Auto) (2.0 - 7.6 x10 3/uL) 7.68 H Lymph # (Auto) (1.0 - 3.8 x10 3/uL) 1.75 [place] # (Auto) (0.1 - 0.8 x10 3/uL) [...] MD on 0 06/19/22 at 2355 RPT #:[id number] END OF REPORT 2022-06-19 [facility] 16:59:00-00:00 [facility] ([facility]) Endocrinology Progress Note REPORT#:[id number] REPORT STATUS: Signed DATE:06/19/22 TIME: 165 PATIENT: KALA TURPIN UNIT #: [id number] ROOM/BED: 2205-1 : 57 AGE: 67 SEX: F ATTEND: Rosa Murrell MD ADM AUTHOR: Jurgen Wolf MD * ALL edits or amendments must be made on the [employer]/[facility] document * Subjective Patient reports: no complaints [...] 40 MEQ ONCE ONE FEED-TUBE (DC) Ipratropium [place] (ATROVENT) 500 MCG Q2H PRN P RN [...] Chloride (SODIUM CHLORIDE 0.9%) 99 ML Ipratropium [place] (ATROVENT) 500 MCG RTQ4H INH Magnesium Sulfate [...] % (Auto) (14.0 - 32.0 %) 17.0 [place] % (Auto) (4.8 - 9.0 %) 5.1 Eos % (Auto) (0.3 - 3.7 %) 2.0 Baso % (Auto) (0.0 - 2.0 %) 0.3 Neut # (Auto) (2.0 - 7.6 x10 3/uL) 7.68 H Lymph # (Auto) (1.0 - 3.8 x10 3/uL) 1.75 [place] # (Auto) (0.1 - 0.8 x10 3/uL) [...] removal. 2. Small residual left apical pneumothorax, unc hanged. 3. Stable pulmonary opacities and left basilar [...] (Auto) (14.0 - 32.0 %) 12.5 L [place] % (Auto) (4.8 - 9.0 %) 6.3 Eos % (Auto) (0.3 - 3.7 %) 0.2 L Baso % (Auto) (0.0 - 2.0 %) 0.2 Neut # (Auto) (2.0 - 7.6 x10 3/uL) 11.34 H Lymph # (Auto) (1.0 - 3.8 x10 3/uL) 1.77 [place] # (Auto) (0.1 - 0.8 x10 3/uL) [...] IMPRESSION: 1. Mild enlarged cardiac silhouette. 2. [id number] pulmonary edema versus infil trates. 3. Linear [...] Jurgen Wolf MD on at 1700 RPT #:[id number] END OF REPORT 2022-06-19 [facility] 15:16:00-00:00 [facility] Cardiology Progress Note REPORT#:[id number] REPORT STATUS: Signed DATE:06/19/22 TIME: 1515 PATIENT: KALA TURPIN UNIT #: [id number] ROOM/BED: [place] [address] : 57 AGE: 67 SEX: F ATTEND: Reji Patel MD ADM AUTHOR: Ursula Perkins NEPHROLOGY SOCIAL WORKER * ALL edits or amendments must be made on the [employer]computer document * Ursula Perkins 06/19/22 1516: Subjective [...] 1200 37.3 93 18 136/69 91 99 06/19 1145 37.3 95 19 135/69 91 99 06/19 1119 113/56 76 06/19 1119 95 18 118/62 80 100 06/19 1100 37.2 99 12 119/60 78 99 06/19 1030 37.1 98 11 122/60 78 99 06/19 1018 37.1 109 21 129/66 87 99 06/19 1000 37.1 107 14 122/60 78 99 06/19 0930 37.0 110 26 136/65 87 97 06/19 0900 36.9 103 14 121/61 80 99 06/19 0845 36.9 116 19 147/67 92 98 06/19 0830 36.9 125 27 127/61 85 99 06/19 0815 36.8 116 19 134/62 83 99 06/19 0800 36.8 94 12 104/50 65 100 06/19 0750 98 Nasal 2 cannula 06/19 0745 36.8 103 14 100/50 64 100 06/19 0730 Nasal 2 cannula 06/19 0730 36.9 99 12 107/50 66 100 06/19 0717 36.9 110 13 121/58 76 99 06/19 0715 36.9 106 11 124/57 76 99 06/19 0700 37.0 105 13 124/56 76 99 06/19 0645 37.0 103 12 120/54 73 98 [...] 0100 36.9 119 13 119/52 72 99 06/19 0045 137/63 91 06/19 0045 36.9 120 12 122/53 73 99 06/19 0030 126/59 85 06/19 0030 36.9 118 12 115/51 70 99 06/19 0015 138/63 91 06/19 0015 36.9 123 13 136/60 84 99 06/19 0000 36.3 06/19 0000 127/56 81 06/19 0000 36.9 122 22 102/50 70 98 06/18 2345 146/65 94 06/18 2345 36.9 118 11 144/64 90 99 06/18 2331 161/69 99 06/18 2330 36.9 126 15 130/68 89 100 06/18 2315 36.9 115 13 107/51 68 99 06/18 2300 112/55 77 06/18 2300 36.9 116 14 101/49 64 99 06/18 2245 117/59 80 06/18 2245 36.9 114 14 106/50 67 99 06/18 2230 114/59 79 06/18 2230 36.9 119 12 98/45 61 99 06/18 2215 109/55 74 06/18 2215 36.9 115 13 97/43 58 99 06/18 2200 110/58 79 06/18 2200 36.8 119 14 110/50 68 99 06/18 2145 136/60 87 06/18 2145 36.8 114 12 125/54 75 98 06/18 2130 132/60 87 06/18 2130 36.8 117 11 124/58 77 98 06/18 2116 142/65 93 06/19 2115 36.8 117 12 137/62 84 98 06/18 2114 36.8 122 11 140/63 85 98 06/18 2100 109/56 81 06/18 2100 36.8 117 17 97/46 61 97 06/185 119/57 82 06/185 36.8 113 10 112/48 66 97 06/18 2030 119/55 77 06/18 2030 36.8 122 14 109/47 65 97 06/18 2014 125/66 86 06/18 2014 36.8 124 12 124/51 72 98 06/19 1999 Nasal 2 cannula 06/19 1999 119/56 81 06/19 1999 36.8 134 12 109/46 64 98 06/18 1944 138/63 90 06/18 194 36.9 133 10 128/54 75 98 06/18 1931 137/61 88 06/18 193 37.0 148 16 145/67 91 100 06/18 1930 37.0 135 16 136/65 86 99 06/18 1930 99 Nasal 2 cannula 06/18 1915 108/54 78 06/18 191 37.0 62 16 111/41 59 99 06/18 1900 115/54 78 06/18 1900 36.9 65 16 116/42 60 99 06/18 1815 125/59 85 06/18 1815 36.9 72 11 130/47 69 99 06/18 1800 120/56 81 06/18 1800 36.9 68 17 116/42 61 99 06/18 1745 133/60 87 06/18 1745 36.9 75 16 122/47 69 99 06/18 1730 121/58 84 06/18 1730 36.9 74 17 151/54 80 99 06/18 1716 131/78 95 06/18 1716 36.9 73 [...] Meds + DC'd Last 24 Hrs Ipratropium [place] (ATROVENT) 500 MCG Q2H PRN P RN [...] (Senna Lax 8.6 MG TABLET) 17.2 MG BE DTIME PO Aspirin (ASPIRIN) 81 MG DAILY PO [...] Chloride (SODIUM CHLORIDE 0.9%) 99 ML Ipratropium [place] (ATROVENT) 500 MCG RTQ4H INH Magnesium Sulfate [...] extremity: LE assessment: edema, no calf tenderness Neuro/HEALTH CARE AIDE: alert, oriented X 3, normal speech Skin: [...] % (Auto) (14.0 - 32.0 %) 17.0 [place] % (Auto) (4.8 - 9.0 %) 5.1 Eos % (Auto) (0.3 - 3.7 %) 2.0 Baso % (Auto) (0.0 - 2.0 %) 0.3 Neut # (Auto) (2.0 - 7.6 x10 3/uL) 7.68 H Lymph # (Auto) (1.0 - 3.8 x10 3/uL) 1.75 [place] # (Auto) (0.1 - 0.8 x10 3/uL) [...] removal. 2. Small residual left apical pneumothorax, unc hanged. 3. Stable pulmonary opacities and left basilar p leuroparenchymal disease. Impression By: Adam Sprague M.D. Telemetry Interpretation: afib with variable VR Diagnosis, Assessment Plan Plan discussed with: patient, nurse Free Text DxA P Notes Free Text DxA P Notes: 67-year-old female with [facility] history of CAD, MT, prior PCI/MEG 11 years ago, hypertension, diabetes melli tus, CVA, peripheral neuropathy, Charcot's foot who presented to [facility] with chest pain. She was taken for left heart catheterization where she wa s found to have multivessel CAD with failed attempt to PCI the HOME CARE PROVIDER LAD. Patient is transferred to [facility] facility for surgical revascularization. 1. Multivessel [...] plan as documented by Ursula Perkins. at 8460 Electronically Signed by Julius Washington MD on at 1214 RPT #:[id number] END OF REPORT 2022-06-19 [facility] 11:30:00-00:00 [facility] Adult General Consultation REPORT#:[id number] REPORT STATUS: Signed DATE:06/19/22 TIME: 1130 PATIENT: KALA TURPIN UNIT #: [id number] ROOM/BED: [place] [address] : 57 AGE: 67 SEX: F ATTEND: Rosa Murrell MD ADM AUTHOR: Kalen Castellanos * ALL edits or amendments must be made on the [employer]/computer document * History of Present Illness Reason [...] wit h 80-90% stenosis. Patient transferred to [facility] for surgica l revascularization. Patient underwent CABG x4. She required a postoperative transfusio n for postoperative anemia. Currently patient is in CVICU. We have been aske d to see her in consultation for physical medicine and rehabilitation evaluat ion. History - Adult longitudinal Past medical history: Reports: Coronary artery disease, Diabetes melli tus, Hypertension, Ischemic stroke, Prior MT. Denies: Congestive heart failu re, Kidney disease/stones. [...] Reviewed LOSARTAN (COZAAR) 25 MG PO DAILY 06/15/2205/25 Strength: 25 MG TAB 0110 112 HYDROCHLOROTHIAZIDE 12.5 MG PO DAILY 06/15/22 0 06/15/22 (HCTZ) 0110 0113 Strength: 12.5 MG CAP PARoxetine HCL (PAXIL) 20 MG PO DAILY 06/15/22 06/15/22 Strength: 20 MG TAB 0110 112 METOPROLOL SUCC XL 25 MG PO DAILY 06/15/2205/25 (TOPROL XL) 1103 Strength: 25 MG TAB.SR.24H Melatonin (MELATONIN) 10 MG SL BEDTIME 06/15/22 06/15/22 Strength: 1 MG TAB 011112 INSULIN NPH/REG INSULIN 130 UNITS SUBQ 06/15/22 [...] Dose Route Stop Time Status Admin Ipratropium [place] 500 MCG Q2H PRN PRN 06/19 1 150 AC (ATROVENT) INH 07/19 1149 Dopamine HCl/Dextrose 250 ML ASDIR 06/17 1400 A C 06/17 (DOPamine 400MG/D5W IV 07/17 1359 1410 250ML) Epinephrine 4 MG ASDIR 06/16 1200 AC (ADRENALIN CHLORIDE) IV 07/16 1159 Dextrose/Water 246 ML (DEXTROSE 5% WATER) Ipratropium [place] 500 MCG RTQ4H 06/16 1200 AC 06/19 (ATROVENT) INH 07/16 1159 0804 Norepinephrine 250 ML TITRATE 06/16 1200 AC Bitartrate IV 07/16 115 (NOREPINEPHRINE 8 MG/ NS 250 ML) Blood [...] 05/25 7 (AMIODARONE HCL) IV 07/18 194 0447 Dextrose/Water 250 ML (D5%W NON-DEHP) Amiodarone HCl 100 ML STAT STA 06/18 1933 DC (NEXTERONE 150MG/D5W IV 06/18 1942013 100ML) Metoprolol Tartrate 12.5 MG Q12HR 06/16 2100 AC 06/19 (LOPRESSOR) PO 07/16 2058 0819 Amiodarone HCl 200 MG TID 06/16 1500 AC 06/19 (CORDARONE) PO 07/16 1459 0819 Nitroglycerin/ 250 ML ASDIR 06/16 1200 AC Dextrose IV 07/16 1159 (NITROGLYCERIN 50,000MCG/D5W 250ML) Atorvastatin Calcium 40 MG 2100 06/15 2100 AC 0 06/18 (LIPITOR) PO 07/15 2058 205 Central [...] 1200 CKD (DEXTROSE 10% IN IV 07/16 115 WATER) Dextrose/Water 250 ML ASDIR PRN 06/16 [...] 17 GM DAILY 06/17 0900 AC 0 06/19 (MIRALAX) PO 07/17 0859 0823 Pantoprazole 40 MG DAILY@0600 06/17 0600 AC (PROTONIX) PO 07/17 0559 0439 Docusate Sodium 100 MG BID 06/16 2100 AC 06/19 (COLACE) PO 07/16 2058 09 Sennosides 17.2 MG BEDTIME 06/16 2100 AC [...] 06/17 1745 CKD (HumuLIN R) IV 07/17 174 Sodium Chloride 99 ML (SODIUM CHLORIDE 0.9%) Glucagon 1 MG ASDIR PRN 06/16 1200 AC (GLUCAGON) IM 07/16 1159 Insulin Human Regular 100 UNIT ASDIR 06/16 1200 DC 06/18 (HumuLIN R) IV 07/16 1159 0725 Sodium Chloride 99 ML (SODIUM CHLORIDE [...] zolpidem (From [employer]) (CONFUSION 06/15/22) 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 Musculoskeletal: [...] straight leg raise neg, no muscle spasm Neuro/HEALTH CARE AIDE: alert, oriented X 3, CNII-XII grossly intact [...] % (Auto) (14.0 - 32.0 %) 17.0 [place] % (Auto) (4.8 - 9.0 %) 5.1 Eos % (Auto) (0.3 - 3.7 %) 2.0 Baso % (Auto) (0.0 - 2.0 %) 0.3 Neut # (Auto) (2.0 - 7.6 x10 3/uL) 7.68 H Lymph # (Auto) (1.0 - 3.8 x10 3/uL) 1.75 [place] # (Auto) (0.1 - 0.8 x10 3/uL) [...] (0.0 - 0.1 x10 3/uL) 0.0 2 06/183 1601 1600 1545 Blood Gas Puncture Site [...] pulmonary opacities and left basilar pleuroparenchymal disease. Impression By: Adam Sprague M.D. Diagnosis, [...] and amiodarone drip Advance therapies as tolerated PHP LAMP DEVELOPER patient primarily got around in a wh eelchair but was able to walk 10 to 20 feet. Contacted rehab if slow to progress. We will see how she does with therapies tomorrow. bringing wheelchair up for PT to use Electronically Signed by Kalen Castellanos on 0 06/19/22 at 1917 RPT #:[id number] END OF REPORT 2022-06-19 [facility] 09:02:00-00:00 [facility] Cardiothoracic Surgery Prog REPORT#:[id number] REPORT STATUS: Signed DATE:06/19/22 TIME: 09 PATIENT: KALA TURPIN UNIT #: [id number] ROOM/BED: [place] [id number] : 57 AGE: 67 SEX: F ATTEND: Rosa Murrell MD ADM AUTHOR: Paris Bear [employer]ic * ALL edits or amendments must be made on the [employer]/computer document * General Post-op: day 3 Status [...] B/P 147/67 06/19 0845 B/P Mean 92 06/20 0745 Temp 98.4 06/19 0845 Pulse 116 06/19 0845 Resp 19 06/19 0845 O2 Delivery Nasal cannula 06/19 0328 O2 [...] moves all Musculoskeletal: full range of motion Neuro/HEALTH CARE AIDE: alert, oriented X 3 Skin: dry, intact Psychiatry: normal affect, normal mood Current Medications Medications: Active Meds + DC'd Last 24 Hrs Ipratropium [place] (ATROVENT) 500 MCG Q2H PRN P RN [...] Chloride (SODIUM CHLORIDE 0.9%) 99 ML Ipratropium [place] (ATROVENT) 500 MCG RTQ4H INH Magnesium Sulfate [...] % (Auto) (14.0 - 32.0 %) 17.0 [place] % (Auto) (4.8 - 9.0 %) 5.1 Eos % (Auto) (0.3 - 3.7 %) 2.0 Baso % (Auto) (0.0 - 2.0 %) 0.3 Neut # (Auto) (2.0 - 7.6 x10 3/uL) 7.68 H Lymph # (Auto) (1.0 - 3.8 x10 3/uL) 1.75 [place] # (Auto) (0.1 - 0.8 x10 3/uL) 0.52 Eos # (Auto) (0.0 - 0.2 x10 3/uL) 0.21 H Baso # (Auto) (0.0 - 0.2 x10 3/uL) 0.03 Abs Immat Gran (auto) (0.00 - 0.03 x10 3/uL) 0 .09 H Add Manual Diff NO Immature Gran % (0.0 - 2.0 %) 0.9 Nucleated RBC % (0 - 0 %) 0.2 H Nucleated RBCs # (Man) (0.0 - 0.1 x10 3/uL) 0.0 2 Radiology data: Recent Impressions: RADIOLOGY - XR CHEST 1 V 06/18 0905 Report Impression - Status: SIGNED Entered: 06/18/2022 1028 IMPRESSION: 1. Mild enlarged cardiac silhouette. 2. Baoy-hg-hfmbtuxp pulmonary edema versus infil trates. 3. Linear left perihilar pulmonary atelectasis, scarring. Decreased lung volumes. 4. Left-sided chest tube with small in the thora x in the left apical chest. Impression By: [email or web address] - Victor Manuel Mcallister M.D. RADIOLOGY - [...] wit h 80-90% stenosis. Patient transferred to [facility] for surgical revasc ularization. PLAN Coronary angiogram images re viewed with Dr. Rogel and findings discussed with the patient. Will benefit from surgical revascul arization. Initiate preop work-up for CABG Hold Plavix. Obtain platelet response test to Pl avix Carotid ultrasound Noncontrasted chest BLE venous Doppler for vein mapping and marking Completed echocardiogram Incentive spirometer teaching Physical therapy evaluation given [place] and limited mobilization Further recommendations to follow. [...] use, nebs and deep breathing NSR on cell assembly pinner, no ectopy, epicardial pa cing wires on [...] care team at 1444 at 1809 RPT #:[id number] END OF REPORT 2022-06-19 [facility] 08:28:00-00:00 [facility] ([facility] Critical Care Progress Note REPORT#:[id number] REPORT STATUS: Signed DATE:06/19/22 TIME: 827 PATIENT: KALA TURPIN UNIT #: [id number] ROOM/BED: [place] [id number] : 57 AGE: 67 SEX: F ATTEND: Rosa Murrell MD ADM AUTHOR: Armand Goff MD * ALL edits or amendments must be made on the [employer]/computer document * Subjective Chief complaint: s/p CABG [...] Result Date Time Pulse Ox 99 06/19 716 B/P 121/58 06/19 716 B/P Mean 76 06/19 716 Temp 98.4 06/19 716 Pulse 110 06/19 716 Resp 13 06/19 716 O2 Delivery Nasal cannula 06/20 327 O2 [...] Meds + DC'd Last 24 Hrs Ipratropium [place] (ATROVENT) 500 MCG Q2H PRN P RN [...] Chloride (SODIUM CHLORIDE 0.9%) 99 ML Ipratropium [place] (ATROVENT) 500 MCG RTQ4H INH Magnesium Sulfate [...] % (Auto) (14.0 - 32.0 %) 17.0 [place] % (Auto) (4.8 - 9.0 %) 5.1 Eos % (Auto) (0.3 - 3.7 %) 2.0 Baso % (Auto) (0.0 - 2.0 %) 0.3 Neut # (Auto) (2.0 - 7.6 x10 3/uL) 7.68 H Lymph # (Auto) (1.0 - 3.8 x10 3/uL) 1.75 [place] # (Auto) (0.1 - 0.8 x10 3/uL) [...] IMPRESSION: 1. Mild enlarged cardiac silhouette. 2. Vbaa-en-lpcduiso pulmonary edema versus infil trates. 3. Linear [...] to improve. Continue to monitor. Electrolytes are stable. ID: White count slightly high. No fevers. [...] and PPI Plan discussed with: patient, family, area development consultant s, nurse, interdisc care team Critical care time: Minutes: 37 Electronically Signed by Armand Goff MD on 05/25 12/16 at 1517 RPT #:[id number] END OF REPORT 2022-06-18 [facility] 17:32:00-00:00 [facility] ([facility]) Critical Care Progress Note REPORT#:[id number] REPORT STATUS: Signed DATE:06/18/22 TIME: 1732 PATIENT: KALA TURPIN UNIT #: [id number] ROOM/BED: [id number] : 57 AGE: 67 SEX: F ATTEND: Rosa Murrell MD ADM AUTHOR: Srinivas Berry MD * ALL edits or amendments must be made on the [employer]/computer document * Subjective Chief complaint: s/p CABG [...] Meds + DC'd Last 24 Hrs Ipratropium [place] (ATROVENT) 500 MCG Q2H PRN P RN [...] Chloride (SODIUM CHLORIDE 0.9%) 99 ML Ipratropium [place] (ATROVENT) 500 MCG RTQ4H INH Magnesium Sulfate [...] Results Findings/data: Laboratory Tests 06/18 06/18 1601 0226 Blood Gas Puncture Site Art Line Art [...] Calcium (1.12 - 1.32 MMOL/L) 1.34 H 1. 35 H Lactic Acid (0.9 - 1.7 mmol/l) [...] Calcium (8.0 - 10.5 mg/dL) 8.9 06/18 06/18 06/18 06/17 06/17 0226 0226 33 2017 1800 Chemistry Sodium (134 - 147 mEq/L) 141 [...] - 1.61 ng/dL) 1.2 Laboratory Tests 06/18 0226 Hematology WBC (4.5 [...] (Auto) (14.0 - 32.0 %) 12.5 L [place] % (Auto) (4.8 - 9.0 %) 6.3 Eos % (Auto) (0.3 - 3.7 %) 0.2 L Baso % (Auto) (0.0 - 2.0 %) 0.2 Neut # (Auto) (2.0 - 7.6 x10 3/uL) 11.34 H Lymph # (Auto) (1.0 - 3.8 x10 3/uL) 1.77 [place] # (Auto) (0.1 - 0.8 x10 3/uL) [...] IMPRESSION: 1. Mild enlarged cardiac silhouette. 2. Rqeg-zv-baqkufxi pulmonary edema versus infil trates. 3. Linear [...] MD on 0 06/18/22 at 1736 RPT #:[id number] END OF REPORT 2022-06-18 [facility] 17:23:00-00:00 [facility] ([facility]) Endocrinology Progress Note REPORT#:[id number] REPORT STATUS: Signed DATE:06/18/22 TIME: 1723 PATIENT: KALA TURPIN UNIT #: [id number] ROOM/BED: [place] [id number] : 57 AGE: 67 SEX: F ATTEND: Rosa Murrell MD ADM AUTHOR: Jurgen Wolf MD * ALL edits or amendments must be made on the el [employer]/computer document * Subjective Patient reports: no complaints [...] Meds + DC'd Last 24 Hrs Ipratropium [place] (ATROVENT) 500 MCG Q2H PRN P RN [...] Chloride (SODIUM CHLORIDE 0.9%) 99 ML Ipratropium [place] (ATROVENT) 500 MCG RTQ4H INH Magnesium Sulfate [...] (Auto) (14.0 - 32.0 %) 12.5 L [place] % (Auto) (4.8 - 9.0 %) 6.3 Eos % (Auto) (0.3 - 3.7 %) 0.2 L Baso % (Auto) (0.0 - 2.0 %) 0.2 Neut # (Auto) (2.0 - 7.6 x10 3/uL) 11.34 H Lymph # (Auto) (1.0 - 3.8 x10 3/uL) 1.77 [place] # (Auto) (0.1 - 0.8 x10 3/uL) [...] IMPRESSION: 1. Mild enlarged cardiac silhouette. 2. Ipej-qf-asouctnk pulmonary edema versus infil trates. 3. Linear left perihilar pulmonary atelectasis, scarring. Decreased lung volumes. 4. Left-sided chest tube with small in the thora x in the left apical chest. Impression By: [email or web address] - Victor Manuel S. Esvin , M.D. 1. Diabetes mellitus type 2 uncontrolled with co mplications. 2. Multivessel coronary artery disease. 3. Status post CABG 4. Hypertension 5. Hyperlipidemia 6. Obesity Blood sugar 203-152 mg/dL. HbA1c 8.3%. Adjust insulin drip settings and start on Lantus at bedtime. Electronically Signed by Jurgen Wolf MD on at 1725 RPT #:[id number] END OF REPORT 2022-06-18 [facility] 14:16:00-00:00 [facility] ([facility] Cardiology Progress Note REPORT#:[id number] REPORT STATUS: Signed DATE:06/18/22 TIME: 1416 PATIENT: KALA TURPIN UNIT #: [id number] ROOM/BED: [place] [id number] : 57 AGE: 67 SEX: F ATTEND: Rosa Murrell MD ADM AUTHOR: Lou Mendez MD * ALL edits or amendments must be made on the [employer]/computer document * Subjective Chief complaint: Presented at [facility] with chest pain , at this time [...] 134/46 69 97 06/18 1216 132/62 89 03 1216 99.1 78 22 125/50 72 98 03/ 1201 148/67 96 03 1201 99.1 76 12 153/53 80 97 03/ 1145 115/58 84 03 1145 99.1 71 11 105/39 57 98 06/18 1131 127/56 81 03/ 1131 99.3 76 13 120/46 68 97 03/ 1116 147/63 90 03 1116 99.3 76 21 134/49 71 97 06/18 1116 98 High flow 2 nasal cannula 06/18 1101 113/55 75 03 1101 99.3 80 16 103/42 60 97 03/ 1045 117/57 82 03 1045 99.3 71 11 102/37 54 97 06/18 1030 124/58 84 06/18 1030 99.5 75 14 122/41 61 98 / 1015 143/63 90 03 1015 99.5 77 10 123/69 82 97 06/18 1009 145/66 95 06/18 1009 99.5 80 22 134/50 72 96 / 0953 79 30 95/46 66 67 / 0947 77 16 147/62 89 98 / 0944 78 30 88/42 60 96 / 0940 79 16 149/63 91 97 / 0930 114/57 82 / 0930 99.9 79 19 102/39 59 97 / 0915 140/62 89 / 0915 99.9 78 11 151/51 77 96 03/ 0900 119/57 82 06/18 0900 99.9 79 17 124/45 65 97 03/ 0845 128/63 90 / 0845 99.9 75 12 134/44 66 98 / 0834 97 High flow 2 nasal cannula / 0830 128/59 85 03/ 0830 99.9 75 13 131/47 67 97 03/ 0815 133/61 88 03/ 0815 100.0 80 13 154/51 75 97 03/ 0813 97 High flow 2 nasal cannula 06/18 0800 Nasal 3 cannula 06/18 0800 126/62 89 03/ 0800 100.0 80 16 134/48 71 97 03/ 0745 125/57 82 03/26 0745 100.2 77 [...] 158/56 81 96 03/25 1745 144/65 94 03/ 1745 98.8 79 [...] 1631 98.8 76 10 146/47 70 95 06/17 1615 122/60 86 06/17 1615 98.8 75 15 141/48 72 92 06/17 1601 140/62 89 06/17 1601 98.8 77 12 141/51 76 91 06/17 1551 100 High flow 2 nasal cannula 06/17 1545 129/58 83 06/17 1545 99.0 70 14 122/43 62 92 06/17 1531 126/56 80 06/17 1531 99.0 71 14 124/45 65 92 06/17 1518 84/47 59 06/17 1518 99.0 54 19 88/31 44 06/17 1500 140/64 92 06/17 1500 98.8 72 23 140/45 67 94 06/17 1445 136/63 90 06/17 1445 98.8 69 26 137/44 65 94 06/17 1430 137/65 93 06/17 1430 99.0 71 24 140/46 69 95 PATIENT WEIGHT: Weight (lb): 223 Weight (oz): 1.72 Weight (kg): 101.200 Medications: Active Meds + DC'd Last 24 Hrs Ipratropium [place] (ATROVENT) 500 MCG Q2H PRN P RN [...] Chloride (SODIUM CHLORIDE 0.9%) 99 ML Ipratropium [place] (ATROVENT) 500 MCG RTQ4H INH Magnesium Sulfate [...] LE assessment: no calf tenderness, no edema Neuro/HEALTH CARE AIDE: alert, oriented X 3, normal speech Skin: dry, intact, normal color Psychiatry: normal affect, normal judgment/insig ht, normal mood Results Findings/Data: Laboratory Tests 06/18 0226 Blood Gas Puncture Site Art Line O2 [...] 1.7 mmol/l) 0.8 L O2 Delivery Device [facility] Laboratory Tests 06/18 06/18 06/18 06/18 06/18 [...] 155 H 182 H Laboratory Tests 06/18 0226 Hematology WBC (4.5 [...] (Auto) (14.0 - 32.0 %) 12.5 L [place] % (Auto) (4.8 - 9.0 %) 6.3 Eos % (Auto) (0.3 - 3.7 %) 0.2 L Baso % (Auto) (0.0 - 2.0 %) 0.2 Neut # (Auto) (2.0 - 7.6 x10 3/uL) 11.34 H Lymph # (Auto) (1.0 - 3.8 x10 3/uL) 1.77 [place] # (Auto) (0.1 - 0.8 x10 3/uL) [...] (Man) (0.0 - 0.1 x10 3/uL) 0. 02 Laboratory Tests 06/18 0226 Chemistry Magnesium (1.80 - 2.40 mg/dL) 2.21 Radiology data: Recent Impressions: RADIOLOGY - XR CHEST 1 V 06/18 0905 Report Impression - Status: SIGNED Entered: 06/18/2022 1028 IMPRESSION: 1. Mild enlarged cardiac silhouette. 2. Iyzo-vn-hxfngxnk pulmonary edema versus infil trates. 3. Linear [...] female with medi dylan history of CAD, MT, prior PCI/MEG 11 years ago, hypertension, diabetes melli tus, CVA, peripheral neuropathy, Charcot's foot who presented to [facility] with chest pain. She was taken for left heart catheterization where she wa s found to have multivessel CAD with failed attempt to PCI the HOME CARE PROVIDER LAD. Patient is transferred to [facility] facility for surgical revascularization. 1. Multivessel [...] MD on 0 06/18/22 at 1417 RPT #:[id number] END OF REPORT 2022-06-18 [facility] 11:00:00-00:00 [facility] Hospitalist Progress Note REPORT#:[id number] REPORT STATUS: Signed DATE:06/18/22 TIME: 1100 PATIENT: KALA TURPIN UNIT #: [id number] ROOM/BED: [place] [id number] : 57 AGE: 67 SEX: F ATTEND: Rosa Murrell MD ADM AUTHOR: Reva Murrell MD * ALL edits or amendments must be made on the el [employer]/computer document * Subjective Chief complaint: s/p 4 [...] 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 Patient transferred to [facility] for surgical revascularization. Objective General VS/I O: Vital Signs: Date Time Temp Pulse Resp B/P B/P Pulse O2 O2 F low FiO2 Mean Ox Delivery Rate 06/18 0953 79 30 95/46 66 67 / 0947 77 16 147/62 89 98 03/ 0944 78 30 88/42 60 96 / 0940 79 16 149/63 91 97 03/ 0930 114/57 82 03/ 0930 99.9 79 19 102/39 59 97 / 0915 140/62 89 03/ 0915 99.9 78 11 151/51 77 96 03/ 0900 119/57 82 03/ 0900 99.9 79 17 124/45 65 97 03/ 0845 128/63 90 03/ 0845 99.9 75 12 134/44 66 98 / 0834 97 High flow 2 nasal cannula 06/18 0830 128/59 85 03/ 0830 99.9 75 13 131/47 67 97 03/ 0815 133/61 88 03/ 0815 100.0 80 13 154/51 75 97 / 0813 97 High flow 2 nasal cannula 06/18 0800 Nasal 3 cannula 06/18 0800 126/62 89 03/ 0800 100.0 80 16 134/48 71 97 03/ 0745 125/57 82 / 0745 100.2 77 22 101/44 60 97 / 0730 130/60 86 / 0730 100.4 75 12 133/42 63 98 03/26 0715 149/65 93 03/ 0715 100.4 79 16 158/50 77 97 03/26 0710 150/65 94 / 0710 100.4 77 15 170/59 88 97 / 0600 100.2 79 14 122/45 66 97 / 0500 100.2 79 15 145/45 69 97 03/ 0400 100.2 79 14 125/44 65 97 / 0325 98 Nasal 2 cannula 06/18 0300 100.2 81 12 168/53 82 98 / 0200 99.9 78 14 134/46 69 98 03/ 0100 99.7 77 12 142/47 72 98 03/ 0000 99.3 77 12 142/46 70 98 / 2300 99.1 80 10 157/55 84 96 03/ 2200 99.1 77 11 134/48 69 98 03/ 2100 99.0 77 11 133/45 65 96 031999 Nasal cannula 06/18 1999 99.0 79 11 [...] 158/56 81 96 03/25 1745 144/65 94 03/ 1745 98.8 79 19 139/54 76 96 03/25 1730 143/66 95 03/ 1730 98.8 75 11 139/53 75 95 03/ 1716 160/67 96 03/ 1716 98.8 80 20 155/57 82 95 03/ 1700 128/60 87 03/25 1700 98.8 79 22 132/54 74 96 03/25 1645 125/55 79 03/ 1645 98.8 68 17 95/36 51 92 03/25 1631 144/63 90 03/25 1631 98.8 76 10 146/47 70 95 03/25 1615 122/60 86 03/25 1615 98.8 75 15 141/48 72 92 03/25 1601 140/62 89 03/ 1601 98.8 77 12 141/51 76 91 03/25 1551 100 High flow 2 nasal cannula 03/ 1545 129/58 83 03/25 1545 99.0 70 [...] 1330 99.0 67 9 122/41 60 96 06/17 1315 116/56 81 06/17 1315 99.0 66 8 121/41 60 96 06/17 1300 118/59 80 06/17 1300 99.0 70 13 132/46 66 97 06/17 1245 116/55 79 06/17 1245 99.0 71 9 132/45 66 97 06/17 1230 103/64 76 06/17 1230 99.0 67 12 84/41 55 97 06/17 1215 117/68 87 06/17 1215 98.8 74 17 134/48 70 97 06/17 1201 99 High flow 2 nasal cannula 06/17 1200 118/58 83 06/17 1200 98.8 71 16 116/46 65 98 [...] Meds + DC'd Last 24 Hrs Ipratropium [place] (ATROVENT) 500 MCG Q2H PRN P RN [...] Chloride (SODIUM CHLORIDE 0.9%) 99 ML Ipratropium [place] (ATROVENT) 500 MCG RTQ4H INH Magnesium Sulfate [...] normal inspection, painless ran ge of motion Neuro/HEALTH CARE AIDE: alert, oriented X 3, CNII-XII intact Skin: [...] 1.7 mmol/l) 0.8 L O2 Delivery Device [facility] Laboratory Tests 06/18 06/18 06/18 06/18 06/17 [...] (Auto) (14.0 - 32.0 %) 12.5 L [place] % (Auto) (4.8 - 9.0 %) 6.3 Eos % (Auto) (0.3 - 3.7 %) 0.2 L Baso % (Auto) (0.0 - 2.0 %) 0.2 Neut # (Auto) (2.0 - 7.6 x10 3/uL) 11.34 H Lymph # (Auto) (1.0 - 3.8 x10 3/uL) 1.77 [place] # (Auto) (0.1 - 0.8 x10 3/uL) [...] IMPRESSION: 1. Mild enlarged cardiac silhouette. 2. Nwla-ru-pjicjujn pulmonary edema versus infil trates. 3. Linear [...] MD on 0 06/19/22 at 1036 RPT #:[id number] END OF REPORT 2022-06-18 [facility] 10:23:00-00:00 [facility] ([facility]) Cardiothoracic Surgery Prog REPORT#:[id number] REPORT STATUS: Signed DATE:06/18/22 TIME: 1023 PATIENT: KALA TURPIN UNIT #: [id number] ROOM/BED: [place] [id number] : 59 AGE: 67 SEX: F ATTEND: Rosa Murrell MD ADM AUTHOR: Kassie Aden P * ALL edits or amendments must be made on the el [employer]/computer document * General Post-op: day 2 Status post: 06/16/22 CABG x 4 (LIN-LAD, SVG-Elisabet, SVG-OM, SVG-PDA) RUBEN SPICER (RGSV) Posterior pericardiotomy Subjective Chief complaint: Follow [...] Pulse 79 06/18 0953 Resp 30 06/18 0953 Temp 99.9 06/18 0930 O2 Delivery High [...] moves all Musculoskeletal: full range of motion Neuro/HEALTH CARE AIDE: alert, oriented X 3 Skin: dry, intact Psychiatry: normal affect, normal mood Current Medications Medications: Active Meds + DC'd Last 24 Hrs Ipratropium [place] (ATROVENT) 500 MCG Q2H PRN P RN [...] Chloride (SODIUM CHLORIDE 0.9%) 99 ML Ipratropium [place] (ATROVENT) 500 MCG RTQ4H INH Magnesium Sulfate [...] 1.7 mmol/l) 0.8 L O2 Delivery Device [facility] Laboratory Tests 06/18 06/18 06/18 06/18 06/17 0747 0226 6 33 2017 Chemistry Sodium (134 - 147 [...] (Auto) (14.0 - 32.0 %) 12.5 L [place] % (Auto) (4.8 - 9.0 %) 6.3 Eos % (Auto) (0.3 - 3.7 %) 0.2 L Baso % (Auto) (0.0 - 2.0 %) 0.2 Neut # (Auto) (2.0 - 7.6 x10 3/uL) 11.34 H Lymph # (Auto) (1.0 - 3.8 x10 3/uL) 1.77 [place] # (Auto) (0.1 - 0.8 x10 3/uL) [...] wit h 80-90% stenosis. Patient transferred to [facility] for surgical revasc ularization. PLAN Coronary [...] use, nebs and deep breathing NSR on cell assembly pinner, no ectopy, epicardial pa cing wires on [...] Dr Rogel at 1239 at 1809 RPT #:[id number] END OF REPORT 2022-06-18 [id number] [facility] 06:30:00-00:[address] [place] [address] PATIENT NAME: KALA TURPIN ADMIT DATE: 06/15/22 ACCOUNT NO: [id number] ROOM NO: [facility] AGE: 67 REPORT TYPE: eELECTROCARDIOGRAM REPORT SEX: F ADMITTING PHYSICIAN:EDDOC, GENERIC FOR EDM ATTENDING PHYSICIAN:Reva Murrell MD Order: [id number] Test Reason : POD 2 Test Date/Time [...] by MD PALMA, AMARA ([id number]) on 06/20/19 9:25:33 PM Referred By: Self Referred Confirmed by:AMARA NAVARRETE MD Electronically Signed by Amara Waldrop MD on 0 06/19/22 at 2125 PATIENT NAME: KALA TURPIN 16 2022-06-17 [facility] 23:59:00-00:00 [facility] Hospitalist Progress Note REPORT#:[id number] REPORT STATUS: Signed DATE:06/17/22 TIME: 2358 PATIENT: KALA TURPIN UNIT #: [id number] ROOM/BED: [place] [address] : 57 AGE: 67 SEX: F ATTEND: Rosa Murrell MD ADM AUTHOR: Reva Murrell MD * ALL edits or amendments must be made on the [employer] document * Subjective Chief complaint: s/p 4 [...] 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 Patient transferred to [facility] for surgical revascularization. Objective General VS/I O: Vital Signs: Date Time Temp Pulse Resp B/P B/P Pulse O2 O2 Flow FiO2 Mean Ox Delivery Rate 06/18 0853 79 30 95/46 66 67 06/18 0947 77 16 147/62 89 98 06/18 0844 78 30 88/42 60 96 06/18 0940 79 16 149/63 91 97 03/26 0930 114/57 82 03/26 0930 99.9 79 19 102/39 59 97 03/26 0915 140/62 89 03/26 0915 99.9 78 11 151/51 77 96 03/26 0900 119/57 82 03/26 0900 99.9 79 17 124/45 65 97 03/26 0845 128/63 90 03/26 0845 99.9 75 12 134/44 66 98 03/ 0834 97 High flow 2 nasal cannula 03/ 0830 128/59 85 03/26 0830 99.9 75 13 131/47 67 97 03/26 0815 133/61 88 03/26 0815 100.0 80 13 154/51 75 97 03/26 0813 97 High flow 2 nasal cannula 06/18 0800 Nasal 3 cannula / 0800 126/62 89 03/ 0800 100.0 80 16 134/48 71 97 03/ 0745 125/57 82 03/26 0745 100.2 77 22 101/44 60 97 03/ 0730 130/60 86 03/ 0730 100.4 75 12 133/42 63 98 03/26 0715 149/65 93 03/26 0715 100.4 79 16 158/50 77 97 03/26 0710 150/65 94 03/26 0710 100.4 77 15 170/59 88 97 03/26 0600 100.2 79 14 122/45 66 97 03/ 0500 100.2 79 15 145/45 69 97 03/ 0400 100.2 79 14 125/44 65 97 03/ 0325 98 Nasal 2 cannula 06/18 0300 100.2 81 12 168/53 82 98 / 0200 99.9 78 14 134/46 69 98 / 0100 99.7 77 12 142/47 72 98 / 0000 99.3 77 12 142/46 70 98 06/17 2300 99.1 80 10 157/55 84 96 06/17 2200 99.1 77 11 134/48 69 98 / 2100 99.0 77 11 133/45 65 96 06/18 1999 Nasal cannula 06/18 1999 99.0 79 11 155/49 74 96 03 1905 93 Nasal 3 cannula 06/17 1900 98.8 75 11 142/46 67 96 06/17 1830 139/63 90 03/25 1830 98.8 76 11 138/45 66 96 03/25 1815 138/61 88 03/25 1815 98.8 79 18 159/50 74 96 [...] 122/41 60 96 03/25 1315 116/56 81 06/17 1315 99.0 66 8 121/41 60 96 06/17 1300 118/59 80 06/17 1300 99.0 70 13 132/46 66 97 06/17 1245 116/55 79 06/17 1245 99.0 71 9 132/45 66 97 06/17 1230 103/64 76 06/17 1230 99.0 67 12 84/41 55 97 06/17 1215 117/68 87 06/17 1215 98.8 74 17 134/48 70 97 06/17 1201 99 High flow 2 nasal cannula 06/17 1200 118/58 83 06/17 1200 98.8 71 16 116/46 65 98 [...] Meds + DC'd Last 24 Hrs Ipratropium [place] (ATROVENT) 500 MCG Q2H PRN P RN [...] Chloride (SODIUM CHLORIDE 0.9%) 99 ML Ipratropium [place] (ATROVENT) 500 MCG RTQ4H INH Magnesium Sulfate [...] normal inspection, painless ran ge of motion Neuro/HEALTH CARE AIDE: alert, oriented X 3, CNII-XII intact Skin: dry, intact Results Findings/Data: Laboratory Tests 06/18 0226 Blood Gas Puncture Site Art Line O2 [...] 1.7 mmol/l) 0.8 L O2 Delivery Device [facility] Laboratory Tests 06/18 06/18 06/18 06/18 06/17 [...] (Auto) (14.0 - 32.0 %) 12.5 L [place] % (Auto) (4.8 - 9.0 %) 6.3 Eos % (Auto) (0.3 - 3.7 %) 0.2 L Baso % (Auto) (0.0 - 2.0 %) 0.2 Neut # (Auto) (2.0 - 7.6 x10 3/uL) 11.34 H Lymph # (Auto) (1.0 - 3.8 x10 3/uL) 1.77 [place] # (Auto) (0.1 - 0.8 x10 3/uL) [...] IMPRESSION: 1. Mild enlarged cardiac silhouette. 2. Jfcm-ln-qdgkchal pulmonary edema versus infil trates. 3. Linear [...] MD on 0 06/18/22 at 1100 RPT #:[id number] END OF REPORT 2022-06-17 [facility] 17:57:00-00:00 [facility] ([facility]) Cardiology Progress Note REPORT#:[id number] REPORT STATUS: Signed DATE:06/17/22 TIME: 1757 PATIENT: KALA TURPIN UNIT #: [id number] ROOM/BED: [place] [id number] : 57 AGE: 67 SEX: F ATTEND: Rosa Murrell MD ADM AUTHOR: Lou Mendez MD * ALL edits or amendments must be made on the [employer]/computer document * Subjective Chief complaint: Presented at [facility] with chest pain , at this time [...] 1551 100 High flow 2 nasal cannula 03 1500 140/64 92 06/17 1500 98.8 72 23 140/45 67 94 03/ 1445 136/63 90 03 1445 98.8 69 26 137/44 65 94 03 1430 137/65 93 03 1430 99.0 71 24 140/46 69 95 03 1415 147/67 96 06/17 1415 99.0 70 9 151/48 72 97 06/17 1400 136/61 88 06/17 1400 99.0 69 14 142/47 69 97 06/17 1345 120/56 81 03 1345 99.0 63 10 111/40 58 98 06/17 1330 122/58 83 06/17 1330 99.0 67 9 122/41 60 96 06/17 1315 116/56 81 06/17 1315 99.0 66 8 121/41 60 96 03/ 1300 118/59 80 06/17 1300 99.0 70 13 132/46 66 97 / 1245 116/55 79 03 1245 99.0 71 9 132/45 66 97 / 1230 103/64 76 03/ 1230 99.0 67 12 84/41 55 97 / 1215 117/68 87 / 1215 98.8 74 17 134/48 70 97 06/17 1201 99 High flow 2 nasal cannula 06/17 1200 118/58 83 03 1200 98.8 71 16 116/46 65 98 03/ 1151 114/55 79 03/ 1151 98.8 68 10 129/45 65 97 / 1131 115/58 83 03/ 1131 98.8 68 10 136/48 70 97 03/ 1115 106/56 77 03/ 1115 98.6 66 9 130/45 66 97 03/25 1101 114/57 82 03/ 1101 98.8 66 10 127/45 64 98 03/ 1045 97/51 71 03/ 1045 98.8 68 16 116/49 67 97 03/ 1031 111/56 77 03/25 1031 98.8 67 [...] 0015 99.3 76 20 130/72 91 99 03/ 0000 99.3 59 16 75/30 46 99 [...] 132/58 82 100 03/24 2146 124/57 82 03/24 2145 99.7 79 11 136/55 80 100 03/24 2130 123/52 83 03/24 2130 99.7 80 13 117/50 70 99 03/24 2115 156/69 99 03/24 2115 99.7 83 15 145/56 83 100 03/24 2101 149/70 100 03/24 2100 99.7 84 12 167/65 95 100 03/24 2046 91/43 62 03/24 2045 99.7 65 22 77/37 49 99 /24 2030 124/60 86 /24 2030 99.7 86 14 142/52 78 100 /24 2015 124/67 88 24 2014 99.7 85 13 135/51 76 100 03/24 1999 136/57 86 /24 1999 99.7 87 16 151/55 84 100 03/24 1945 138/65 93 03/24 1945 99.7 89 10 153/59 87 100 03/24 1944 100 Nasal 4 cannula 03/24 1931 140/63 91 03/24 1930 99.5 87 16 141/54 80 100 03/24 1920 4 03/24 1916 120/59 85 03/24 1915 99.5 82 14 130/51 73 100 03/24 1901 101/55 75 03/24 1901 99.3 75 16 101/48 62 100 03/24 1900 99.3 84 19 123/56 77 100 PATIENT WEIGHT: Weight (lb): 222 Weight (oz): 0.09 Weight (kg): 100.700 Medications: Active Meds + DC'd Last 24 Hrs Ipratropium [place] (ATROVENT) 500 MCG Q2H PRN P RN [...] Insulin Human Regular (HumuLIN R) 100 UNIT ASDI R IV (CKD) Sodium Chloride (SODIUM CHLORIDE 0.9%) [...] Chloride (SODIUM CHLORIDE 0.9%) 99 ML Ipratropium [place] (ATROVENT) 500 MCG RTQ4H INH Magnesium Sulfate [...] HCl (ISOPTIN) 16.6 MG .Q24H ONE IV (D C) Heparin Sodium (Porcine) (HEPARIN SODIUM) 1,660 UNIT [...] LE assessment: no calf tenderness, no edema Neuro/HEALTH CARE AIDE: alert, oriented X 3, normal speech Skin: [...] 1.4 Temperature (F) 99.1 O2 Delivery Device [facility] Laboratory Tests 06/17 06/17 06/17 06/17 06/17 [...] - 5.0 g/dL) 3.40 06/16 06/16 06/16 2240 2101 1810 Chemistry Sodium (134 - 147 [...] %) 6.9 L 6.3 L 6.4 L [place] % (Auto) (4.8 - 9.0 %) 7.5 5.5 5.8 Eos % (Auto) (0.3 - 3.7 %) 0.0 L 0.0 L 0.0 L Baso % (Auto) (0.0 - 2.0 %) 0.1 0.2 0.1 Neut # (Auto) (2.0 - 7.6 x10 3/uL) 10.68 H 9.19 H 8.58 H Lymph # (Auto) (1.0 - 3.8 x10 3/uL) 0.86 L 0.66 L 0.63 L [place] # (Auto) (0.1 - 0.8 x10 3/uL) [...] Text DxA P Notes: 67-year-old female with [facility] history of CAD, MT, prior PCI/MEG 11 years ago, hypertension, diabetes bhavin coleman, CVA, peripheral neuropathy, Charcot's foot who presented to [facility] with chest pain. She was taken for left heart catheterization where she wa s found to have multivessel CAD with failed attempt to PCI the HOME CARE PROVIDER LAD. Patient is transferred to [facility] facility for surgical revascularization. 1. Multivessel [...] MD on 0 06/18/22 at 1116 RPT #:[id number] END OF REPORT 2022-06-17 [facility] 17:44:00-00:00 [facility] ([facility]) Critical Care Progress Note REPORT#:[id number] REPORT STATUS: Signed DATE:06/17/22 TIME: 1743 PATIENT: KALA TURPIN UNIT #: [id number] ROOM/BED: [place] [id number] : 57 AGE: 67 SEX: F ATTEND: Rosa Murrell MD ADM AUTHOR: Srinivas Berry MD * ALL edits or amendments must be made on the [employer]/computer document * Subjective Chief complaint: s/p CABG x4(LIN-LAD, SVG-Elisabet, SVG-OM, SVG-PDA) ALAA EVH (RGSV) Posterior pericardiotomy Comments: Interval history- Patient continues to remain on 1 of Levophed. When she was transferred [facility] the bed to the [facility] she became orthostatic dropping her blood [...] Meds + DC'd Last 24 Hrs Ipratropium [place]ia (ATROVENT) 500 MCG Q2H PRN P RN [...] Chloride (SODIUM CHLORIDE 0.9%) 99 ML Ipratropium [place] (ATROVENT) 500 MCG RTQ4H INH Magnesium Sulfate [...] PRN PO Results Findings/data: Laboratory Tests 06/17 314 Blood Gas Puncture Site Art Line O2 [...] 1.4 Temperature (F) 99.1 O2 Delivery Device [facility] Laboratory Tests 06/17 06/17 06/17 06/17 06/17 [...] 8.3 06/17 06/17 06/17 06/17 06/16 0810 5 0310 0222 2304 Chemistry Sodium (134 - [...] %) 6.9 L 6.3 L 6.4 L [place] % (Auto) (4.8 - 9.0 %) 7.5 5.5 5.8 Eos % (Auto) (0.3 - 3.7 %) 0.0 L 0.0 L 0.0 L Baso % (Auto) (0.0 - 2.0 %) 0.1 0.2 0.1 Neut # (Auto) (2.0 - 7.6 x10 3/uL) 10.68 H 9.19 H 8.58 H Lymph # (Auto) (1.0 - 3.8 x10 3/uL) 0.86 L 0.66 L 0.63 L [place] # (Auto) (0.1 - 0.8 x10 3/uL) [...] NASAL: MRSA DNA Surveillance Screen - RES 06/15 173 NASAL: MSSA Surveillance Screen - ORD 06/15 173 NASAL: MRSA DNA Surveillance Screen - ORD Radiology data Recent Impressions: RADIOLOGY - XR CHEST 1 V 06/17 0002 Report Impression - Status: SIGNED Entered: 06/17/2022 0906 IMPRESSION: Shallow inspiration with mild atelectatic change s primarily on the left. Impression By: [email or web address] - Alfonso Garay M.D. Free Text Obj [...] Berry MD on 0 06/18/22 at 1521 RPT #:[id number] END OF REPORT 2022-06-17 [id number] [facility] 17:30:00-00:[address] [place], [place] [id number] PATIENT NAME: KALA TURPIN ADMIT DATE: 06/15/22 ACCOUNT NO: [id number] ROOM NO: [facility] AGE: 67 REPORT TYPE: CONSULTATION REPORT SEX: [...] Dictated By: Jurgen Wolf MD PATIENT NAME: ROJAS TURPINELA 16 Date Dictated: 06/17/2022 17:30:54 Date Transcribed: 06/17/2022 20:20:26 /[place] Receipt ID: [id number] Authenticated by Jeanine Wolf MD On 3 08:29:13 PM Electronically Signed by Jurgen Wolf MD on at 0829 PATIENT NAME: KALA TURPIN 16 2022-06-17 [facility] 09:59:00-00:00 [facility] Cardiothoracic Surgery Prog REPORT#:[id number] REPORT STATUS: Signed DATE:06/17/22 TIME: 09 PATIENT: KALA TURPIN UNIT #: [id number] ROOM/BED: [place] [id number] : 57 AGE: 67 SEX: F ATTEND: Rosa Murrell MD ADM AUTHOR: Kassie Aden * ALL edits or amendments must be made on the [employer]/computer document * General Post-op: day 1 Status post: 06/16/22 CABG x 4 (LIN-LAD, SVG-Elisabet, SVG-OM, SVG-PDA) ALAA EVH (RGSV) Posterior pericardiotomy Subjective Chief complaint: severe [...] 120/58 06/17 0815 B/P Mean 84 06/17 0815 Pulse Ox 97 06/17 0815 Temp 98.8 06/17 0815 Pulse 69 06/17 0815 Resp 9 06/17 [...] moves all Musculoskeletal: full range of motion Neuro/HEALTH CARE AIDE: alert, oriented X 3 Skin: dry, intact Psychiatry: normal affect, normal mood Current Medications Medications: Active Meds + DC'd Last 24 Hrs Ipratropium [place] (ATROVENT) 500 MCG Q2H PRN P RN [...] Chloride (SODIUM CHLORIDE 0.9%) 99 ML Ipratropium [place] (ATROVENT) 500 MCG RTQ4H INH Magnesium Sulfate [...] Sodium (KEFZOL OR ANCEF) 2 GM PREOP MAGNET MAKER IV (DC) Vancomycin HCl (VANCOMYCIN HCL) 1,500 MG PREOP O NCALL IV (DC) Sodium Chloride (SODIUM CHLORIDE 0.9%) 250 ML Verapamil HCl (ISOPTIN) 16.6 MG .Q24H ONE IV (DC ) Heparin Sodium (Porcine) (HEPARIN SODIUM) 1,66 0 UNIT Sodium Bicarbonate (SODIUM BICARBONATE) 0.7 ML [...] Findings/Data: Laboratory Tests 06/17 06/16 06/16 0315 0310 6246 Blood Gas Puncture Site Art Line Art [...] - 15.0 G/DL) 7.7 L 6.3 L 6 .0 L Sodium (134 - 147 mmol/L) 145 [...] 45 mmHg) 55.4 *H 48.3 H 35.7 41.1 ABG pO2 (80 - 100.0 mmHg) 113.9 [...] INR (0.8 - 1.2) 1.5 H PTT (Griggs) (25.0 - 39.5 Seconds) 30.7 PT Patient/Control [...] 6.9 L 6.3 L 6.4 L 21.3 [place] % (Auto) (4.8 - 9.0 %) 7.5 5.5 5.8 3.1 L Eos % (Auto) (0.3 - 3.7 %) 0.0 L 0.0 L 0.0 L 0. 9 Baso % (Auto) (0.0 - 2.0 %) 0.1 0.2 0.1 0.2 Neut # (Auto) (2.0 - 7.6 x10 3/uL) 10.68 H 9.19 H 8.58 H 13.15 H Lymph # (Auto) (1.0 - 3.8 x10 3/uL) 0.86 L 0.66 L 0.63 L 3.80 [place] # (Auto) (0.1 - 0.8 x10 3/uL) [...] wit h 80-90% stenosis. Patient transferred to [facility] for surgical revasc ularization. PLAN Coronary [...] use, nebs and deep breathing NSR on cell assembly pinner, no ectopy, epicardial pa cing wires on [...] care team at 1417 at 1808 RPT #:[id number] END OF REPORT 2022-06-17 [id number] [facility] 09:33:00-00:[address] [place] [address] PATIENT NAME: KALA TURPIN ADMIT DATE: 06/15/22 ACCOUNT NO: [id number] ROOM NO: [facility] AGE: 67 REPORT TYPE: eECHOCARDIOGRAM REPORT SEX: F ADMITTING PHYSICIAN:LOUIS, GENERIC FOR EDM ATTENDING PHYSICIAN:Reva Murrell MD *[facility]* [address] [place] [address] Transthoracic Echocardiogram Patient: Kala Trupin Study Date: 06/15/2022 BP: 131 / 60 Location: [facility] URN: [id number] : 1955 Age: 67 Height: 61 in / 154.9 cm Gender: F Weight: 205 .6 lb / 93.4 kg BMI/BSA: 38.9 kg/m 2 / 1.91 m 2 *Ordering Physician: * Kassie Aden *Interpreting Physician: * Julius Washington MD *Gas Meter Repair Supervisor: * Audrey Rodríguez Indications: Pre-CABG Evaluation. Study [...] 1.82 m/sec --------- PATIENT NAME: KALA TURPIN 016 Mean v, S 1.24 m/sec --------- VTI, [...] 4.2 m/sec --------- Pulmonic valve Value Ref RI v, ED 0.59 m/sec --------- Tricuspid valve [...] 0933 PATIENT NAME: KALA TURPIN 16 2022-06-17 [id number] [facility] 04:12:00-00:[address] [place] [address] PATIENT NAME: KALA TURPIN ADMIT DATE: 06/15/22 ACCOUNT NO: [id number] ROOM NO: [id number] AGE: 67 REPORT TYPE: eELECTROCARDIOGRAM REPORT SEX: F ADMITTING PHYSICIAN:LOUIS, GENERIC FOR EDM ATTENDING PHYSICIAN:Reva Murrell MD Order: [id number] Test Reason : s/p cabg Test Date/Time [...] 16-JUN-2022 12:59, No changes Confirmed by MD PALMA, AMARA ([id number]) on 06/20/19 9:25:17 PM Referred By: Self Referred Confirmed by:AMARA NAVARRETE MD Electronically Signed by Amara Waldrop MD on 0 06/19/22 at 2122 PATIENT NAME: KALA TURPIN 16 2022-06-16 [facility] 17:54:00-00:00 [facility] ([facility]) Critical Care Consult Note REPORT#:[id number] REPORT STATUS: Signed DATE:06/16/22 TIME: 175 PATIENT: KALA TURPIN UNIT #: [id number] ROOM/BED: [place] [address] : 57 AGE: 67 SEX: F ATTEND: Rosa Murrell MD ADM AUTHOR: Srinivas Berry MD * ALL edits or amendments must be made on the [employer]/computer document * History of Present Illness HPI Requesting clinician: Dr Rogel Reason for consult: s/p CABG x4(LIN-LAD, SVG-Elisabet, SVG-OM, SVG-PDA) ALAA EVH (RGSV) Posterior pericardiotomy Chief complaint: CAD HPI: 67 yo F with PMH of CAD, MT with prior stents 11 years ago, hypertension, diabetes mellitus, CVA, peripheral neuropathy, C harcot's foot,PAULO,nonHodgkins lymphoma in 2006 was admitted to [facility] with chest pain. He had a cardiac [...] Diabetes melli tus, Hypertension, Ischemic stroke, Prior MT. Denies: Congestive heart failu re, Kidney disease/stones. [...] Meds + DC'd Last 24 Hrs Ipratropium [place]ia (ATROVENT) 500 MCG Q2H PRN P RN [...] Chloride (SODIUM CHLORIDE 0.9%) 99 ML Ipratropium [place] (ATROVENT) 500 MCG RTQ4H INH Magnesium Sulfate [...] 0 .STK-MED ONE .ROUTE ( DC) Rocuronium [place] (ZEMURON) 0 .STK-MED ONE IV ( DC) [...] Tranexamic Acid (Cyklokapron) 0 .STK-MED ONE .RO [place] (DC) Midazolam HCl (VERSED) 0 .STK-MED ONE .ROUTE (DC ) Propofol (DIPRIVAN 200MG/20ML INJECTION) 20 ML . STK-MED ONE IV (DC) Fentanyl Citrate (SUBLIMAZE) 0 .STK-MED ONE IV ( DC) Cefazolin Sodium (KEFZOL OR ANCEF) 2 GM PREOP MAGNET MAKER IV (DC) Metoprolol Tartrate (LOPRESSOR) 6.25 MG [...] Human Lispro (HUMALOG) 0 AC HS SUBQ (DC ) Acetaminophen (TYLENOL) 650 MG Q4H PRN PRN [...] - 15.0 G/DL) 6.3 L 6.0 L 6.6 L Sodium (134 - 147 mmol/L) 148 [...] INR (0.8 - 1.2) 1.5 H PTT (Griggs) (25.0 - 39.5 Seconds) 30.7 PT Patient/Control Mix (9.3 - 12.9 SECONDS) 16 .9 H Activated Coag Time (74 - 137 SEC) 143 H 618 H 805 H 06/16 06/16 06/16 0942 0719 0558 Coagulation INR (0.8 - 1.2) 1.2 PTT (Griggs) (25.0 - 39.5 Seconds) 30.8 PT Patient/Control [...] (Auto) (14.0 - 32.0 %) 21.3 31.7 [place] % (Auto) (4.8 - 9.0 %) 3.1 L 8.2 Eos % (Auto) (0.3 - 3.7 %) 0.9 2.5 Baso % (Auto) (0.0 - 2.0 %) 0.2 0.5 Neut # (Auto) (2.0 - 7.6 x10 3/uL) 13.15 H 3.66 Lymph # (Auto) (1.0 - 3.8 x10 3/uL) 3.80 2.04 [place] # (Auto) (0.1 - 0.8 x10 3/uL) [...] pH (5.0 - 7.0) 5.0 Ur Specific [place] (1.005 - 1.030) 1.024 Urine Protein (NEGATIVE) [...] NASAL: MRSA DNA Surveillance Screen - RES 06/15 173 NASAL: MSSA Surveillance Screen - ORD 06/16 [...] MD on 0 06/18/22 at 1506 RPT #:[id number] END OF REPORT 2022-06-16 [facility] 17:48:00-00:00 [facility] ([facility] Hospitalist Progress Note REPORT#:[id number] REPORT STATUS: Signed DATE:06/16/22 TIME: 1748 PATIENT: KALA TURPIN UNIT #: [id number] ROOM/BED: [place] [address] : 57 AGE: 67 SEX: F ATTEND: Rosa Murrell MD ADM AUTHOR: Reva Murrell MD * ALL edits or amendments must be made on the [employer]/computer document * Subjective Chief complaint: Patient had [...] 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 Patient transferred to [facility] for surgical revascularization. Objective General VS/I O: Vital Signs: Date Time Temp Pulse Resp B/P B/P Pulse O2 O2 F low FiO2 Mean Ox Delivery Rate 06/16 1530 127/60 87 03/24 1530 98.1 81 5 123/49 71 100 03/24 1515 134/60 87 03/24 1515 98.1 82 8 148/56 83 100 03/24 1500 112/57 80 03/24 1500 97.9 79 6 109/43 61 100 [...] 1245 97.2 79 19 154/54 72 99 06/16 1231 91/54 70 06/16 1231 97.3 79 25 96/39 52 100 06/16 1228 80 100 40 06/16 1215 53 06/16 1215 97.5 81 35 75/40 21 100 06/16 1213 74/40 52 06/16 1213 97.3 79 57 102/35 45 100 06/16 1206 Ventilator 40 06/16 0359 98.2 51 16 109/66 80.1 96 Room air 06/16 0158 48 8 96 06/16 0100 50 13 94 06/16 0000 51 12 97 06/15 2329 97.9 50 16 127/70 89.1 97 Room air 06/15 2300 52 12 94 06/15 2200 52 12 94 06/15 2100 52 10 94 06/15 2000 55 14 96 06/15 1957 95 Room air 06/15 1943 98.1 55 16 137/71 92.6 94 Room air 06/15 1900 57 20 97 24 hour I O ending at 0700: 06/16 0700 06/15 1900 Intake Total 1000 Output Total Balance 1000 Intake, Oral 1000 Number Voids 4 Patient 209 lb Weight PATIENT WEIGHT: Weight (lb): 218 Weight (oz): 11.18 Weight (kg): 99.200 Medications: Active Meds + DC'd Last 24 Hrs Ipratropium [place] (ATROVENT) 500 MCG Q2H PRN P RN [...] Chloride (SODIUM CHLORIDE 0.9%) 99 ML Ipratropium [place] (ATROVENT) 500 MCG RTQ4H INH Magnesium Sulfate [...] 4H IV Sodium Bicarbonate (SODIUM BICARBONATE) 0 .STK- MED ONE IV (DC) Albumin Human (ALBUMINAR-25%) 100 [...] 0 .STK-MED ONE .ROUTE ( DC) Rocuronium [place] (ZEMURON) 0 .STK-MED ONE IV ( DC) [...] Tranexamic Acid (Cyklokapron) 0 .STK-MED ONE .RO [place] (DC) Midazolam HCl (VERSED) 0 .STK-MED ONE .ROUTE (DC ) Propofol (DIPRIVAN 200MG/20ML INJECTION) 20 ML . STK-MED ONE IV (DC) Fentanyl Citrate (SUBLIMAZE) 0 .STK-MED ONE IV ( DC) Cefazolin Sodium (KEFZOL OR ANCEF) 2 GM PREOP MAGNET MAKER IV (DC) Metoprolol Tartrate (LOPRESSOR) 6.25 MG [...] normal inspection, painless ran ge of motion Neuro/HEALTH CARE AIDE: alert, oriented X 3, CNII-XII intact Skin: [...] - 15.0 G/DL) 6.3 L 6.0 L 6.6 L Sodium (134 - 147 mmol/L) 148 [...] - 45 mmHg) 48.3 H 35.7 41.1 38. 0 ABG pO2 (80 - 100.0 mmHg) 127.7 [...] INR (0.8 - 1.2) 1.5 H PTT (Griggs) (25.0 - 39.5 Seconds) 30.7 PT Patient/Control Mix (9.3 - 12.9 SECONDS) 16. 9 H Activated Coag Time (74 - 137 SEC) 143 H 618 H 805 H 06/16 06/16 06/16 0942 0719 0558 Coagulation INR (0.8 - 1.2) 1.2 PTT (Griggs) (25.0 - 39.5 Seconds) 30.8 PT Patient/Control [...] (Auto) (14.0 - 32.0 %) 21.3 31.7 [place] % (Auto) (4.8 - 9.0 %) 3.1 L 8.2 Eos % (Auto) (0.3 - 3.7 %) 0.9 2.5 Baso % (Auto) (0.0 - 2.0 %) 0.2 0.5 Neut # (Auto) (2.0 - 7.6 x10 3/uL) 13.15 H 3.66 Lymph # (Auto) (1.0 - 3.8 x10 3/uL) 3.80 2.04 [place] # (Auto) (0.1 - 0.8 x10 3/uL) [...] pH (5.0 - 7.0) 5.0 Ur Specific [place] (1.005 - 1.030) 1.024 Urine Protein (NEGATIVE) [...] in the left upper-mid lung. Impression By: TracySWDonnell Larry M.D. Diagnosis, Assessment Plan Free Text [...] MD on 0 06/16/22 at 1750 RPT #:[id number] END OF REPORT 2022-06-16 [id number] [facility] 12:59:00-00:[address] [place] [address] PATIENT NAME: KALA TURPIN ADMIT DATE: 06/15/22 ACCOUNT NO: [id number] ROOM NO: [facility] AGE: 67 REPORT TYPE: eELECTROCARDIOGRAM REPORT SEX: F ADMITTING PHYSICIAN:LOUIS, GENERIC FOR EDM ATTENDING PHYSICIAN:Reva Murrell MD Order: [id number] Test Reason : S/P CABG Test Date/Time Stamp: SunJun 16 2022 12:59:09 Blood Pressure : / mmHG Vent. Rate : 072 BPM Atrial Rate : 072 BPM P-R Int : 104 ms QRS Dur : 088 ms QT Int : 438 ms P-R-T Axes : 067 072 075 degree s QTc Int : 479 ms Sinus rhythm with short RI Nonspecific ST abnormality Abnormal ECG No previous ECGs available Confirmed by MD WALDROP GERARD ([id number]) on 06/17/19 5:23:19 PM Referred By: Self Referred Confirmed by:AMARA NAVARRETE MD Electronically Signed by Amara Waldrop MD on 0 06/16/22 at 1723 PATIENT NAME: KALA TURPIN 16 2022-06-16 [id number] [facility] 11:49:00-00:[address] [place] [address] PATIENT NAME: KALA TURPIN ADMIT DATE: 06/15/22 ACCOUNT NO: [id number] ROOM NO: [facility] AGE: 67 REPORT TYPE: OPERATIVE REPORT SEX: F ADMITTING PHYSICIAN:LOUIS, GENERIC FOR [facility] ATTENDING PHYSICIAN:Reva Murrell MD OPERATION DATE: 06/16/2022 [...] 4. Posterior pericardiotomy. SURGEON: Peggy Rogel MD INSTRUCTIONAL COORDINATOR: Keith Johnson. ANESTHESIOLOGIST: Dr. Acuna. ANESTHESIA: General endotracheal anesthesia. ESTIMATED BLOOD LOSS: 100 mL INDICATIONS: Ms. Turpin is a 67-year-old female w ith severe triple-vessel coronary artery disease. After due preop counseling director ing, she was brought to the operating [...] ize. An arteriotomy was performed with a [place] blade and extended with Alberts scissors. A [...] An arteriotomy w as performed with a [place] blade and extended with Alberts scissors. A [...] size. An arteriotomy was performed with a [place] blade and extended with Alberts scis sors. [...] An arteriotomy w as performed with a [place] blade and extended with Alberts scissors. LIN [...] One ventricular wire wa s placed. A 28-Wolof chest tube was placed in the mediastinum [...] wires for the sternum, #1 PATIENT NAME: KALA TURPIN 16 Vicryl for the fascia, 2-0 Vicryl for the subcut aneous tissue, and 4-0 Vicryl for the skin. The patient was transferred to int ensive care unit, intubated, stable condition. Dictated By: Peggy Rogel MD Date Dictated: 06/16/2022 11:49:38 Date Transcribed: 06/16/2022 12:31:26 AC/PRA Receipt ID: [id number] Authenticated and Edited by Surjit Rogel MD On 06/16/22 3:00:20 PM at 0311 PATIENT NAME: KALA TURPIN 16 2022-06-16 [facility] 11:41:00-00:00 [facility] ([facility]) Brief Op Note REPORT#:[id number] REPORT STATUS: Signed DATE:06/16/22 TIME: 1141 PATIENT: KALA TURPIN UNIT #: [id number] ROOM/BED: [place] [address] : 57 AGE: 67 SEX: F ATTEND: Rosa Murrell MD ADM AUTHOR: Peggy Rogel * ALL edits or amendments must be made on the el [employer]/computer document * Op/Inv Proc Note - Brief Pre-procedure diagnosis: CAD Post-procedure diagnosis: same as pre procedure dx Procedures performed: CABG x 4 (LIN-LAD, SVG-Elisabet, SVG-OM, SVG-PDA) ALAA EVH (RGSV) Posterior pericardiotomy Primary Surgeon: Juan F [employer] Sales Manager(s): Keith Johnson Findings: LAD-2mm Complications: none Estimated blood loss in ml's: 100 cc Specimens removed/altered: RAJESH at 1143 RPT #:[id number] END OF REPORT 2022-06-16 [facility] 10:51:00-00:00 [facility] ([facility]) Cardiology Progress Note REPORT#:[id number] REPORT STATUS: Signed DATE:06/16/22 TIME: 1051 PATIENT: KALA TURPIN UNIT #: [id number] ROOM/BED: [facility]3-1 : 57 AGE: 67 SEX: F ATTEND: Reji Patel MD ADM AUTHOR: Ursula Perkins NEPHROLOGY SOCIAL WORKER * ALL edits or amendments must be made on the el [employer]/computer document * Ursula Perkins 06/16/22 1051: Objective [...] 12 94 06/15 2100 52 10 94 06/15 2000 55 14 96 06/15 1955 95 Room [...] 0 .STK-MED ONE .ROUTE ( DC) Rocuronium [place] (ZEMURON) 0 .STK-MED ONE IV ( DC) [...] Tranexamic Acid (Cyklokapron) 0 .STK-MED ONE .RO [place] (DC) Midazolam HCl (VERSED) 0 .STK-MED ONE .ROUTE (DC ) Propofol (DIPRIVAN 200MG/20ML INJECTION) 20 ML . STK-MED ONE IV (DC) Fentanyl Citrate (SUBLIMAZE) 0 .STK-MED ONE IV ( DC) Cefazolin Sodium (KEFZOL OR ANCEF) 2 GM PREOP MAGNET MAKER IV (CKD) Metoprolol Tartrate (LOPRESSOR) 6.25 MG [...] LE assessment: no calf tenderness, no edema Neuro/HEALTH CARE AIDE: alert, oriented X 3, normal speech Skin: [...] Excess (-4.0 - 4.0 MMOL/L) 2.2 3.2 -1. 4 -3.9 ABG Hematocrit (33.0 - 45.0 %) [...] Coagulation INR (0.8 - 1.2) 1.2 PTT (Griggs) (25.0 - 39.5 Seconds) 30.8 PT Patient/Control [...] % (Auto) (14.0 - 32.0 %) 31.7 [place] % (Auto) (4.8 - 9.0 %) 8.2 Eos % (Auto) (0.3 - 3.7 %) 2.5 Baso % (Auto) (0.0 - 2.0 %) 0.5 Neut # (Auto) (2.0 - 7.6 x10 3/uL) 3.66 Lymph # (Auto) (1.0 - 3.8 x10 3/uL) 2.04 [place] # (Auto) (0.1 - 0.8 x10 3/uL) [...] pH (5.0 - 7.0) 5.0 Ur Specific [place] (1.005 - 1.030) 1.024 Urine Protein (NEGATIVE) [...] Text DxA P Notes: 67-year-old female with [facility] history of CAD, MT, prior PCI/MEG 11 years ago, hypertension, diabetes melli tus, CVA, peripheral neuropathy, Charcot's foot who presented to [facility] with chest pain. She was taken for left heart catheterization where she wa s found to have multivessel CAD with failed attempt to PCI the HOME CARE PROVIDER LAD. Patient is transferred to [facility] facility for surgical revascularization. 1. Multivessel [...] Julius Washington MD on at 1214 RPT #:[id number] END OF REPORT 2022-06-15 [facility] 22:48:00-00:00 [facility] ([facility]) Hospitalist Consultation REPORT#:[id number] REPORT STATUS: Signed DATE:06/15/22 TIME: 2247 PATIENT: KALA TURPIN UNIT #: [id number] ROOM/BED: [facility]1 : 57 AGE: 67 SEX: F ATTEND: Rosa Murrell MD ADM AUTHOR: Reva Murrell MD * ALL edits or amendments must be made on the el [employer]/computer document * History of Present Illness Reason [...] 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 Patient transferred to [facility] for surgical revascularization. History - Adult longitudinal Past medical history: Reports: Coronary artery disease, Diabetes melli tus, Hypertension, Ischemic stroke, Prior MT. Denies: Congestive heart failu re, Kidney disease/stones. 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 No acute abnormality in the chest. Scarring v ersus subsegmental atelectasis in the anterior recess of the right upper lobe. 2. Nonspecific anterior pericardial lymph node. Impression By: [email or web address] Dale Mcbride ULTRASOUND - DUP EXTRACRANIAL TRE 06/15 0915 [...] detectable patent l umen. Impression By: [email or web address] Kathryn Aguilar M.D. ULTRASOUND - DUP VEIN TRE [...] MD on 0 06/15/22 at 2252 RPT #:[id number] END OF REPORT 2022-06-15 [facility] 11:13:00-00:00 [facility] ([facility]) Cardiology Consultation REPORT#:[id number] REPORT STATUS: Signed DATE:06/15/22 TIME: 1113 PATIENT: KALA TURPIN UNIT #: [id number] ROOM/BED: [place] [address] : 57 AGE: 67 SEX: F ATTEND: Reji Patel MD ADM AUTHOR: Ursula Perkins NEPHROLOGY SOCIAL WORKER * ALL edits or amendments must be made on the [employer]/computer document * Ursula Perkins 06/15/22 1113: History of Present Illness HPI Requesting Clinician: Dr. Rogel Reason for consult: CAD Chief complaint: Presented at [facility] with chest pain , at this time PCP: PCP: Undefined Provider HPI: 67-year-old female with [facility] history of CAD, MT, prior PCI/MEG 11 years ago, hypertension, diabetes melli tus, CVA, peripheral neuropathy, Charcot's foot who presented to [facility] with chest pain. She was taken for left heart catheterization where she wa s found to have multivessel CAD with failed attempt to PCI the [facility] [employer] [facility] L[facility]. Patient is transferred to [facility] facility for surgical revascularization. History - Adult longitudinal Past medical history: Reports: Coronary artery disease, Diabetes melli tus, Hypertension, Ischemic stroke, Prior MT. Denies: Congestive heart failu re, Kidney disease/stones. [...] LE assessment: no calf tenderness, no edema Neuro/HEALTH CARE AIDE: alert, oriented X 3, normal speech Skin: [...] Patient/Control Mix (9.3 - 12.9 SECONDS) 12 .6 Plt P2Y12 React Units (182 - 335 [...] (Auto) (14.0 - 32.0 %) 38.4 H [place] % (Auto) (4.8 - 9.0 %) 7.2 Eos % (Auto) (0.3 - 3.7 %) 2.0 Baso % (Auto) (0.0 - 2.0 %) 0.4 Neut # (Auto) (2.0 - 7.6 x10 3/uL) 3.59 Lymph # (Auto) (1.0 - 3.8 x10 3/uL) 2.66 [place] # (Auto) (0.1 - 0.8 x10 3/uL) [...] Kurtz Results: labs reviewed, vital signs reviewed, [facility] personally rev'd Telemetry Interpretation: Sinus bradycardia Diagnosis, Assessment Plan Plan discussed with: patient, collaborating MD, consultants, nurse Free Text DxA P Notes Free Text DxA P Notes: 67-year-old female with [facility] history of CAD, MT, prior PCI/MEG 11 years ago, hypertension, diabetes melli tus, CVA, peripheral neuropathy, Charcot's foot who presented to [facility] with chest pain. She was taken for left heart catheterization where she wa s found to have multivessel CAD with failed attempt to PCI the HOME CARE PROVIDER LAD. Patient is transferred to [facility] facility for surgical revascularization. 1. Multivessel [...] plan as documented by Ursula Perkins. at 1759 Electronically Signed by Julius Washington MD on at 1213 RPT #:[id number] END OF REPORT 2022-06-15 [facility] 05:47:00-00:00 [facility] ([facility]) History Physical - Adult REPORT#:[id number] REPORT STATUS: Signed DATE:06/15/22 TIME: 0547 PATIENT: KALA TURPIN UNIT #: [id number] ROOM/BED: [place] [id number] : 57 AGE: 67 SEX: F ATTEND: Rosa Murrell MD ADM AUTHOR: Kassie Aden * ALL edits or amendments must be made on the [employer]/computer document * Evelin Plascencia 06/15/22 0547: History [...] wit h 80-90% stenosis. Patient transferred to [facility] for surgical revasc ularization. History Additional [...] PO DAILY 06/15/2206/15 Strength: 25 MG TAB 011112 HYDROCHLOROTHIAZIDE 12.5 MG PO DAILY 06/15/22 0 06/15/22 (HCTZ) 011112 Strength: 12.5 MG CAP PARoxetine HCL (PAXIL) 20 MG PO DAILY 06/15/22 06/15/22 Strength: 20 MG TAB 0110 112 METOPROLOL SUCC XL 25 MG PO DAILY 06/15/22 (TOPROL XL) 110 112 Strength: 25 MG TAB.SR.24H Melatonin (MELATONIN) 10 MG SL BEDTIME 3 06/15/22 Strength: 1 MG TAB 011112 INSULIN NPH/REG INSULIN 130 UNITS SUBQ 3 06/15/22 HUM DAILY 07111 011 (NovoLIN 70/30) Strength: 100 UNIT/ML (70-30) VIAL INSULIN NPH/REG INSULIN 140 UNITS SUBQ 06/15/ 3 06/15/22 HUM DAILY 170112 (NovoLIN 70/30) Strength: 100 UNIT/ML (70-30) VIAL [...] Metoprolol Tartrate 12.5 MG Q12HR 06/15 0900 CA N (LOPRESSOR) PO 07/15 08 Metoprolol Tartrate 12.5 MG Q12HR 06/15 0900 AC 06/15 (LOPRESSOR) PO 07/15 0859 0947 Central Nervous System Agents Sig/William Start time Last Medication Dose Route Stop Time Status Admin Hydrocodone Bitart/ 1 TAB Q4H PRN PRN 06/15 121 5 AC 06/15 Acetaminophen PO 06/20 1214 1302 (NORCO 5/325) Aspirin 81 MG DAILY 06/15 0900 AC 06/15 (ASPIRIN) PO 07/15 0859 0947 Acetaminophen 650 MG Q4H PRN PRN 06/15 0600 AC 06/15 (TYLENOL) PO 07/15 0559 0745 Acetaminophen 1,000 MG Q6H PRN PRN 06/15 0130 D C 06/15 (TYLENOL EXTRA PO 07/15 0129 0143 [...] Lispro 0 AC HS 06/15 0730 AC (HUMALOG) SUBQ 07/15 0729 1302 Glucagon 1 MG ASDIR PRN 06/15 0600 AC (GLUCAGON) IM 07/15 0559 Allergies: Coded Allergies: adhesive tape (RASH 06/15/22) niacin (Mild, ANXIETY 06/15/22) zolpidem (From AMBIEN) (CONFUSION 06/15/22) 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 Allergy/Immun: Denies: allergic reaction. Cardiovascular: Denies: chest pain, palpitations. GI: Denies: abdominal pain, nausea, vomiting. Neuro: Denies: dizziness, headache, vision change. Physical Exam VS/I O Vital Signs: Date Time Temp Pulse Resp B/P B/P Pulse O2 O2 F low FiO2 Mean Ox Delivery Rate 06/15 0356 [...] expansion Abdomen/GI: soft, non-tender Extremities: moves all Neuro/HEALTH CARE AIDE: alert, oriented X 3, normal speech, n o motor deficits Psychiatry: normal affect, normal mood Results Findings/Data: Laboratory Tests: 03/06/15 1148 0755 0721 0605 0605 Chemistry POC [...] (Auto) (14.0 - 32.0 %) 38.4 H [place] % (Auto) (4.8 - 9.0 %) 7.2 Eos % (Auto) (0.3 - 3.7 %) 2.0 Baso % (Auto) (0.0 - 2.0 %) 0.4 Neut # (Auto) (2.0 - 7.6 x10 3/uL) 3.59 Lymph # (Auto) (1.0 - 3.8 x10 3/uL) 2.66 [place] # (Auto) (0.1 - 0.8 x10 3/uL) [...] s described. Impression By: [email or web address] - Dale Kutrz Diagnosis, Assessment Plan Orders: Procedure Date/time Status CONSISTENT CARBOHYDRATE DIET 06/15 B Active PHYSICAL THERAPIST CONSULT 06/15 1101 Active DUP VEIN TRE 06/15 0916 Complete DUP EXTRACRANIAL TRE 06/[address] CHEST W/O CONT 06/15 0824 [...] Signs 06/15 0552 Active Telemetry Monitoring 06/15 0552 Active Educate/Teach Patient 06/15 0552 Active Notify MD Vitals 06/15 0552 Active Notify MD - Labs 06/15 0552 Active MRSA Protocol 06/15 0552 Active IV Access 06/15 0552 Active Intake Output 06/15 0552 Active Smoking Cessation Education 06/15 0552 Active Weight: Obtain 06/15 0552 Active Conditional Diagnostic Test 06/15 0552 Active Activity 06/15 0552 Active COVID-19 Risk Assessment 06/15 0552 Active PHYSICIAN CONSULT 06/15 0552 Active LEVEL OF CARE 06/15 0552 Active [...] wit h 80-90% stenosis. Patient transferred to [facility] for surgical revasc ularization. PLAN Coronary [...] and plan reviewed with Peggy Palacios 06/16/22 2696: Attestations Physician Attestation Agree w/findings plan: I [...] risk score, and complications. at 1411 at 7300 RPT #:[id number] END OF REPORT
[2022-12-08 10:09] LABS: Absolute Lymphocytes (CBC) 2.1 K/uL (0.7-4.9); Hematocrit 36.2 % (36.0-45.0); Lymphocytes % 27.4 % (15.3-44.8); MCV 91.7 fL (80-100); MPV 8.3 fL (7.6-11.3); Platelets 223 thou/uL (152-406); RBC Red Blood Cell Count 3.94 M/uL (3.86-4.86)
[2022-12-08 10:23] LABS: Albumin 3.2 g/dL (3.4-5.0); Potassium 4.2 mEq/L (3.5-5.1); Protein, Total 6.9 g/dL (6.4-8.2)
[2022-12-08] MEDS ORDERED: NA CHLORIDE 0.9% 1,000 ML ONE (10:44)
--- NOTE | 2022-12-08 11:09 | RAD REPORT ---
EXAM DESCRIPTION: RAD - Foot Right 3 View - 12/08/2022 10:36 am CLINICAL HISTORY: PAIN COMPARISON: No comparisons TECHNIQUE: Right foot, 3 views. FINDINGS: No acute fracture. Deformity of the midfoot, with plantar subluxation of the cuneiforms an d cuboid, with pronounced osseous remodeling. No air or foreign body in the soft tissues. Pronounced soft tissue swelling throughout the foot. Larg e calcaneal spur. Enthesopathy at the Achilles attachment. IMPRESSION: No acute osseus abnormality. Deformity of the midfoot as above, may relate to Charcot ar thropathy. .
[2022-12-08] MEDS ORDERED: ACETAMINOPHEN 500 MG TAB ONE (11:23)
[2022-12-08] MEDS ORDERED: VANCOMYCIN 1 GM/VIAL ONE (11:29)
[2022-12-08] MEDS ORDERED: NA CHLORIDE 0.9% 100 ML ONE (11:29)
[2022-12-08] MEDS ORDERED: NA CHLORIDE 0.9% 250 ML ONE (11:29)
[2022-12-08] MEDS ORDERED: CEFEPIME 1 GM/VIAL ONE (11:30)
--- NOTE | 2022-12-08 13:39 | ER ---
Nurse's Notes [facility] Name: Kala ePdro Age: 67 yrs Sex: Female : 1955 Arrival Date: 12/08/2022 Time: 09:25 Bed 19 Private MD: Diagnosis: Cellulitis of left toe Presentation: 12/08 09:32 Chief complaint: Lost toenail on left second toe days ago, pain and redness upon waking hb today. Took one dose of Bactrim this morning. Coronavirus screen: At this time, the client does not indicate any symptoms associated with coronavirus-19. Ebola Screen: No symptoms or risks identified at this time. Initial Sepsis Screen: Does the patient meet any 2 criteria? No. Patient's initial sepsis screen is negative. Does the patient have a suspected source of infection? No. Patient's initial sepsis screen is negative. Risk Assessment: Do you want to hurt yourself or someone else? Patient reports no desire to harm self or others. Onset of symptoms was December 04, 2022. 09:32 Method Of Arrival: Wheelchair hb 09:32 Acuity: LEXUS 3 hb Historical: - Allergies: 09:34 Adhesives; hb 09:34 ambien; hb 09:34 Niacin; hb 09:34 zolpidem tartrate; hb - PMHx: 09:34 Anxiety; atypical seizure; charcot's syndrome; Depression; diabetes mellitus; hb Hypertensive disorder; Myocardial infarction; neuropathy; - PSHx: 09:34 cardiac stent x 2; Coronary artery bypass graft; hb - Immunization history:: Adult Immunizations up to date. - Social history:: Smoking status: Patient denies any tobacco usage or history of. Screenin:59 [facility] ED Fall Risk Assessment (Adult) History of falling in the last 3 months, ap3 including since admission No falls in past 3 months (0 pts). Abuse screen: Denies threats or abuse. Nutritional screening: No deficits noted. Tuberculosis screening: No symptoms or risk factors identified. Assessment: 13:57 General: Appears in no apparent distress. Behavior is calm, cooperative, appropriate ap3 for age. Pain: Complains of pain in left foot. Neuro: Level of Consciousness is awake, alert, obeys commands, Oriented to person, place, time, situation. Cardiovascular: Patient's skin is warm and dry. Respiratory: Airway is patent Respiratory effort is even, unlabored. Vital Signs: 09:32 BP 148 / 70; Pulse 89; Resp 16; Temp 98.4(O); Pulse Ox 100% on R/A; Weight 92.53 kg; hb Height 5 ft. 1 in. ; Pain 5/10; 10:07 BP 150 / 62; Pulse 60; Resp 17; Temp 98.4; Pulse Ox 98% on R/A; bc6 10:40 BP 152 / 64; Pulse 59; Pulse Ox 100% on R/A; ap3 10:53 BP 149 / 65; Pulse 59; Pulse Ox 98% on R/A; ap3 12:52 BP 179 / 78; Pulse 57; Pulse Ox 100% ; ap3 09:32 Body Mass Index 38.55 (92.53 kg, 154.94 cm) hb 09:32 Pain Scale: Adult hb ED Course: 09:29 Patient arrived in ED. im 09:29 Sol Kasper PA-C is PHCP. sb4 09:29 Douglas Moulton MD is Attending Physician. sb4 09:34 Triage completed. hb 09:34 Arm band placed on. hb 10:03 Lactate w/ 2H reflex if indic. Sent. bc6 10:06 CBC with Diff Sent. bc6 10:06 CMP Sent. bc6 10:06 Lactate w/ 2H reflex if indic. Sent. bc6 10:06 Inserted saline lock: 20 gauge in right antecubital area, using aseptic technique. bc6 Blood collected. 10:38 Foot Right 3 View XRAY In Process Unspecified. EDMS 13:38 Avtar Major DPM is Referral Physician. sb4 13:57 Silvia Larios, RN is Primary Nurse. ap3 13:57 Provided Education on: discharge education. ap3 13:57 No provider procedures requiring assistance completed. IV discontinued, intact, ap3 bleeding controlled, No redness/swelling at site. Pressure dressing applied. 13:58 Patient has correct armband on for positive identification. ap3 Administered Medications: 10:39 Drug: NS 0.9% IV 1000 ml Route: IV; Rate: 1 bolus; Site: right antecubital; ap3 13:58 Follow up: IV Status: Completed infusion ap3 11:14 Drug: Acetaminophen PO 1000 mg Route: PO; ap3 13:58 Follow up: Response: No adverse reaction; Pain is decreased ap3 11:25 Drug: vancoMYCIN IVPB 1 grams Route: IVPB; Infused Over: 2 hrs; Site: right antecubital;ap3 13:58 Follow up: IV Status: Completed infusion ap3 13:14 Drug: Cefepime IVPB 1 grams Route: IVPB; Rate: 200 ml/hr; Infused Over: 30 mins; Site: ap3 right antecubital; 13:58 Follow up: IV Status: Completed infusion ap3 Medication: 13:58 VIS not applicable for this client. ap3 Outcome: 13:38 Discharge ordered by . sb4 13:57 Discharged to home via wheelchair, with family. ap3 13:57 Condition: good 13:57 Discharge instructions given to patient, family, Instructed on discharge instructions, follow up and referral plans. medication usage, Demonstrated understanding of instructions, follow-up care, medications, Prescriptions given X 1. 13:59 Patient left the ED. ap3 Signatures: Dispatcher [employer] EDMS Zoe Ellis RN RN hb Prokisch, Amanda, RN RN ap3 Sol Kasper, PA-C PA-C sbLizbeth [id number] Katey March
--- NOTE | 2022-12-08 13:39 | EDPHYS ---
Physician Documentation [facility] Name: Kala Pedro Age: 67 yrs Sex: Female : 1955 Arrival Date: 12/08/2022 Time: 09:25 Bed 19 Private MD: ALEKSANDRA Physician Douglas Moulton HPI: 12/08 10:43 This 67 yrs old Female presents to ER via Wheelchair with complaints of Wound Infection sb4 - left foot. 10:43 The patient presents with cellulitis of the left second toe and Left second toenail. sb4 Description: draining, erythematous, swollen, warm. Onset: The symptoms/episode began/occurred yesterday, and became worse today. Possible cause(s): traumatic toe nail amputation. Associated signs and symptoms: Pertinent positives: drainage, erythema, swelling, Pertinent negatives: fever, headache, nausea, shortness of breath. Modifying factors: the symptoms are alleviated by nothing, the symptoms are aggravated by nothing. The patient has not experienced similar symptoms in the past. Historical: - Allergies: 09:34 Adhesives; hb 09:34 ambien; hb 09:34 Niacin; hb 09:34 zolpidem tartrate; hb - PMHx: 09:34 Anxiety; atypical seizure; charcot's syndrome; Depression; diabetes mellitus; hb Hypertensive disorder; Myocardial infarction; neuropathy; - PSHx: 09:34 cardiac stent x 2; Coronary artery bypass graft; hb - Immunization history:: Adult Immunizations up to date. - Social history:: Smoking status: Patient denies any tobacco usage or history of. ROS: 14:43 Constitutional: Negative for fever, chills, and weight loss. sb4 14:43 MS/extremity: Positive for erythema, pain, swelling, tenderness, of the left second toe. 14:43 All other systems are negative. Exam: 14:43 Constitutional: This is a well developed, well nourished patient who is awake, alert, sb4 and in no acute distress. Head/Face: Normocephalic, atraumatic. Eyes: Extra-ocular motions intact. Periorbital areas with no swelling, redness, or edema. ENT: Mucous membranes moist. Cardiovascular: Regular rate and rhythm with a normal S1 and S2. Respiratory: Lungs have equal breath sounds bilaterally, clear to auscultation and percussion. No rales, rhonchi or wheezes noted. No increased work of breathing, no retractions or nasal flaring. Abdomen/GI: Soft, non-tender, no distension. MS/ Extremity: Pulses equal, no cyanosis. Neurovascular intact. Full, normal range of motion. Neuro: Awake and alert, GCS 15, oriented to person, place, time, and situation. Cranial nerves II-XII grossly intact. Motor strength 5/5 in all extremities. Sensory grossly intact. Cerebellar exam normal. Normal gait. 14:43 Skin: cellulitis, that is moderate, confluent, well demarcated, on the left second toe. Vital Signs: 09:32 BP 148 / 70; Pulse 89; Resp 16; Temp 98.4(O); Pulse Ox 100% on R/A; Weight 92.53 kg; hb Height 5 ft. 1 in. ; Pain 5/10; 10:07 BP 150 / 62; Pulse 60; Resp 17; Temp 98.4; Pulse Ox 98% on R/A; bc6 10:40 BP 152 / 64; Pulse 59; Pulse Ox 100% on R/A; ap3 10:53 BP 149 / 65; Pulse 59; Pulse Ox 98% on R/A; ap3 12:52 BP 179 / 78; Pulse 57; Pulse Ox 100% ; ap3 09:32 Body Mass Index 38.55 (92.53 kg, 154.94 cm) hb 09:32 Pain Scale: Adult hb MDM: 09:29 Patient medically screened. sb4 14:43 Differential diagnosis: abscess, allergic reaction, cellulitis. Data reviewed: vital sb4 signs, nurses notes, lab test result(s), radiologic studies, and as a result, I will discharge patient. Consideration of Admission/Observation Escalation of care including admission/observation considered. 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 12/08 09:52 Order name: CBC with Diff; Complete Time: 10:13 sb4 09/15 09:52 Order name: CMP; Complete Time: 10:24 sb4 12/08 09:52 Order name: Lactate w/ 2H reflex if indic.; Complete Time: 10:29 sb4 12/08 10:17 Order name: Glucose, Ancillary Testing; Complete Time: 10:24 EDMS 12/08 12:08 Order name: Lactate w/ 2H reflex if indic.; Complete Time: 13:35 sb4 12/08 09:52 Order name: Foot Right 3 View XRAY; Complete Time: 11:10 sb4 12/08 09:52 Order name: Accucheck; Complete Time: 10:06 sb4 12/08 09:52 Order name: IV Saline Lock - Large Bore; Complete Time: 10:03 sb4 12/08 09:52 Order name: Labs collected and sent; Complete Time: 10:03 sb4 12/08 09:52 Order name: Vital Signs; Complete Time: 10:06 sb4 Administered Medications: 10:39 Drug: NS 0.9% IV 1000 ml Route: IV; Rate: 1 bolus; Site: right antecubital; ap3 13:58 Follow up: IV Status: Completed infusion ap3 11:14 Drug: Acetaminophen PO 1000 mg Route: PO; ap3 13:58 Follow up: Response: No adverse reaction; Pain is decreased ap3 11:25 Drug: vancoMYCIN IVPB 1 grams Route: IVPB; Infused Over: 2 hrs; Site: right antecubital;ap3 13:58 Follow up: IV Status: Completed infusion ap3 13:14 Drug: Cefepime IVPB 1 grams Route: IVPB; Rate: 200 ml/hr; Infused Over: 30 mins; Site: ap3 right antecubital; 13:58 Follow up: IV Status: Completed infusion ap3 Disposition Summary: 12/08/22 13:38 Discharge Ordered Location: Home sb4 Problem: new sb4 Symptoms: have improved sb4 Condition: Stable sb4 Diagnosis - Cellulitis of left toe sb4 Followup: sb4 - With: Avtar Major DPM - When: 2 - 3 days - Reason: Recheck today's complaints, Continuance of care, Re-evaluation by your physician Discharge Instructions: - Discharge Summary Sheet sb4 - Cellulitis, Adult, [id number] sb4 Forms: - Medication Reconciliation Form sb4 - Thank You Letter sb4 - Antibiotic Education sb4 - Prescription Opioid Use sb4 - Patient Portal Instructions sb4 - Leadership Thank You Letter sb4 Prescriptions: - Bactrim DS 800-160 mg Oral Tablet - take 1 tablet by ORAL route every 12 hours for 10 days; 20 tablet; Refills: 0, sb4 Product Selection Permitted Signatures: Dispatcher [employer] Zoe Delarosa RN RN hb Prokisch, Amanda, RN RN ap3 Brown, Sophia, PA-C PA-C sb4
[2022-12-08 14:04] VITALS: TEMP 98.4
[2022-12-08 14:10] VITALS: BP 179/78; O2SAT 100
== END 2022-12-08 13:59 | disposition home or self-care (01) ==
LOC: ER 09:25
DX: L03.032 Cellulitis of left toe (principal); Z88.8 Allergy status to other drugs, medicaments and biological substances; Z91.048 Other nonmedicinal substance allergy status; Z95.1 Presence of aortocoronary bypass graft
CPT/HCPCS: 96365; 96361; 85025; 36415; 82947; 83605 ×2; 80053; 73630; 99284; 96366; J7050; J7030; J0692